=== PATIENT | male | born 1960 | race African-American/Black ===

== ENCOUNTER 2017-04-02 10:36 | Observation (INO) | payer OTHER ==
[~2017-04-02] VITALS: Ht 175.3 cm; Wt 145.0 kg
[2017-04-02] VITALS (7 sets, daily range): BP systolic 139–185; BP diastolic 79–120; PULSE 77–95; RESP 18–20; TEMP 98–98.7; O2SAT 92–97
[~2017-04-02 10:36] MED LIST: AMIO200T PO; APIX5TAB PO; ASPI81TA11 PO; BUME1TAB PO; CALC.25 PO; CARD2TAB PO; DILT60TA33 PO; ENAL20TA PO; HYDR-3516 PO; IPRA0.02 NEB; LIPI80TA PO; METO-309 PO; OXYGENTANK NAS.CANULA; TOPA100T11 PO
[2017-04-02] MEDS ORDERED: SODIUM CHLORIDE 0.9% FLUSH 10 ML FLUSH IVF PRN (11:15)
--- NOTE | 2017-04-02 11:15 | PD ---
HPI Chief Complaint: Cardiac Complaint Time Seen by Provider: 11:02 Travel History International Travel<30 days: No Contact w/Intl Traveler<30days: No Traveled to known affect area: No History of Present Illness HPI 57yo M with PMH of DM, afib, CHF, CKD, HTN, CAD presents to the ED with c/o chest pain since 8am today. As per triage note, pt was in afib RVR 170s and given cardizem by EVAC. Pt states chest pain has resolved. It was midsternal, pressure like and not associated with sob, nausea, or diaphoresis. Did not feel palpitations. Denies any fever, cough, vomiting, abdominal pain, focal weakness or numbness. PFSH Past Medical History Hx Anticoagulant Therapy: Yes (ELOQUIS) Atrial Fibrillation: Yes Depression: Yes Cancer: No Cardiac Catheterization: Yes Cardiovascular Problems: Yes (CA, AFIB) High Cholesterol: Yes COPD: No Diabetes: Yes Diminished Hearing: No Genitourinary: No Hypertension: Yes Immune Disorder: No Neurologic: Yes (EPILEPSY) Psychiatric: Yes Reproductive: No Respiratory: Yes Myocardial Infarction: Yes Seizures: Yes (epilepsy) Tetanus Vaccination: Unknown Influenza Vaccination: Yes Social History Alcohol Use: No Tobacco Use: No Substance Use: No Allergies-Medications (Allergen,Severity, Reaction): Coded Allergies: [place] Oil (Verified Allergy, Unknown, THROW UP, 10/07/16) Reported Meds & Prescriptions Reported Meds & Active Scripts Active Ipratropium Neb (Ipratropium [place]) 0.5 Mg/2.5 Ml Amp 0.5 Mg NEB Q6HR NEB PRN Bumetanide 1 Mg Tab 1 Mg PO DAILY Aspirin EC (Aspirin) 81 Mg Tabdr 81 Mg PO DAILY Eliquis (Apixaban) 5 Mg Tab 5 Mg PO BID Amiodarone (Amiodarone HCl) 200 Mg Tab 200 Mg PO DAILY Reported Metoprolol Tartrate 100 Mg Tab 100 Mg PO BID Diltiazem ER 24 HR 240 Mg Caper 240 Mg PO BID Topamax (Topiramate) 100 Mg Tab 200 Mg PO DAILY @ 1200 Enalapril (Enalapril Maleate) 20 Mg Tab 20 Mg PO DAILY Review of Systems Except as stated in HPI: all other systems reviewed are Neg Physical Exam Narrative GENERAL: 57yo M not in distress. SKIN: Focused skin assessment warm/dry. HEAD: Atraumatic. Normocephalic. EYES: Pupils equal and round. No scleral icterus. No injection or drainage. ENT: No nasal bleeding or discharge. Mucous membranes pink and moist. NECK: Trachea midline. No JVD. CARDIOVASCULAR: Irregular rate and rhythm in the 80s. No murmur appreciated. RESPIRATORY: No accessory muscle use. Clear to auscultation. Breath sounds equal bilaterally. GASTROINTESTINAL: Abdomen soft, non-tender, nondistended. MUSCULOSKELETAL: No obvious deformities. No clubbing. No cyanosis. +Bilateral lower ext edema. NEUROLOGICAL: Awake and alert. No obvious cranial nerve deficits. Motor grossly within normal limits. Normal speech. PSYCHIATRIC: Appropriate mood and affect; insight and judgment normal. Data Data Last Documented VS Vital Signs Date Time Temp Pulse Resp B/P Pulse Ox O2 Delivery O2 Flow Rate FiO2 04/02/17 12:00 90 18 155/102 96 Room Air 04/02/17 10:50 2 04/02/17 10:44 98.7 Orders Basic Metabolic Panel (Bmp) (04/02/17 11:07) Ckmb (Isoenzyme) Profile (04/02/17 11:07) Complete Blood Count With Diff (04/02/17 11:07) Magnesium (Mg) (04/02/17 11:07) Prothrombin Time / Inr (Pt) (04/02/17 11:07) Act Partial Throm Time (Ptt) (04/02/17 11:07) Troponin I (04/02/17 11:07) Chest, Single Ap (04/02/17 11:07) Ecg Monitoring (04/02/17 11:07) Bilateral Bp Monitoring (04/02/17 11:07) Iv Access Insert/Monitor (04/02/17 11:07) Oximetry (04/02/17 11:07) Oxygen Administration (04/02/17 11:07) Sodium Chloride 0.9% Flush (Ns Flush) (04/02/17 11:15) CKMB (04/02/17 10:49) CKMB% (04/02/17 10:49) B-Type Natriuretic Peptide (04/02/17 12:13) Diltiazem Cd (Cardizem Cd) (04/02/17 13:15) Admit Order (Ed Use Only) (04/02/17 13:14) Labs Laboratory Tests Test 04/02/17 10:49 White Blood Count 6.3 TH/MM3 Red Blood Count 4.52 MIL/MM3 Hemoglobin 13.3 GM/DL Hematocrit 41.3 % Mean Corpuscular Volume 91.2 FL Mean Corpuscular Hemoglobin 29.5 PG Mean Corpuscular Hemoglobin 32.3 % Concent Red Cell Distribution Width 14.3 % Platelet Count 106 TH/MM3 Mean Platelet Volume 11.6 FL Neutrophils (%) (Auto) 60.7 % Lymphocytes (%) (Auto) 25.6 % Monocytes (%) (Auto) 9.9 % Eosinophils (%) (Auto) 3.1 % Basophils (%) (Auto) 0.7 % Neutrophils # (Auto) 3.8 TH/MM3 Lymphocytes # (Auto) 1.6 TH/MM3 Monocytes # (Auto) 0.6 TH/MM3 Eosinophils # (Auto) 0.2 TH/MM3 Basophils # (Auto) 0.0 TH/MM3 CBC Comment AUTO DIFF Differential Comment AUTO DIFF CONFIRMED Platelet Estimate LOW Platelet Morphology Comment ENLARGED Prothrombin Time 11.6 SEC Prothromb Time International 1.0 RATIO Ratio Activated Partial 29.1 SEC Thromboplast Time Sodium Level 142 MEQ/L Potassium Level 4.9 MEQ/L Chloride Level 106 MEQ/L Carbon Dioxide Level 26.8 MEQ/L Anion Gap 9 MEQ/L Blood Urea Nitrogen 23 MG/DL Creatinine 1.73 MG/DL Estimat Glomerular Filtration 50 ML/MIN Rate Random Glucose 114 MG/DL Calcium Level 8.5 MG/DL Magnesium Level 2.0 MG/DL Total Creatine Kinase 260 U/L Creatine Kinase MB 1.7 NG/ML Troponin I LESS THAN 0.02 NG/ML MDM Medical Decision Making Medical Screen Exam Complete: Yes Emergency Medical Condition: Yes Interpretation(s) EKG: Afib at 83bpm. 1mm ST elevation V2, V3. No reciprocal changes. Differential Diagnosis ACS vs. afib RVR vs. pneumonia Narrative Course 57yo M with midsternal chest pain that was pressure like. Pt was found in afib RVR by EVAC and given 20mg IV cardizem. Chest pain may have been from the afib but pt has significant risk factors and has not had any recent stress test. Pt follows with Dr. Mccormack and was last here for afib RVR. Pt did not take his diltiazem 240mg ER this morning because of the chest pain and his heart rate is now fluctuating between 90s to 110s. Ordered his diltiazem 240mg PO today. Labs reviewed, no leukocytosis. Thrombocytopenia which he has had before. Troponin negative. BUN/creatinine elevated but improved from baseline. Pt took his aspirin this morning. CXR showed stable cardiomegaly. Pulmonary venous congestion. No significant changes. Pt reevaluated at bedside and denies any chest pain currently. Will admit to chest pain center for serial EKG and cardiac enzyme. Diagnosis Primary Impression: Chest pain Qualified Code: R07.9 - Chest pain, unspecified type Admitting Information Admitting Physician Requests: Katlyn Mcintosh DO April 02, 2017 11:15
--- NOTE | 2017-04-02 11:30 | RADRPT ---
EXAM DATE/TIME: 04/02/2017 11:12 [facility] COMPARISON: CHEST SINGLE AP, October 16, 2016, 19:19. INDICATIONS : Chest pain. MEDICAL HISTORY : Myocardial infarction. SURGICAL HISTORY : None. ENCOUNTER: Initial ACUITY: 1 day PAIN SCORE: 0/10 LOCATION: Bilateral chest FINDINGS: A single view of the chest demonstrates the lungs to be symmetrically aerated without evidence of mas s, infiltrate or effusion. There is some nonspecific pulmonary venous congestion. The heart size is moderately enlarged but stable compared to the prior study.. Osseous structures are intact. No signi ficant changes. CONCLUSION: 1. Stable cardiomegaly. 2. Pulmonary venous congestion. 3. Otherwise, no significant changes. Shamar Azul MD on April 02, 2017 at 11:27 Board Certified Radiologist. This report was verified electronically.
[2017-04-02 11:35] LABS: AUTOMATED NEUTROPHIL # 3.8 TH/MM3 (1.8-7.7); BASOPHIL % 0.7 % (0.0-2.0); EOSINOPHIL # 0.2 TH/MM3 (0-0.4); EOSINOPHIL % 3.1 % (0.0-4.0); HEMATOCRIT 41.3 % (39.0-51.0); LYMPH % 25.6 % (9.0-44.0); LYMPHOCYTE # 1.6 TH/MM3 (1.0-4.8); MEAN CELL VOLUME 91.2 FL (80.0-100.0); MEAN CORPUSCULAR HEMOGLOBIN 29.5 PG (27.0-34.0); MEAN CORPUSCULAR HGB CONC 32.3 % (32.0-36.0); MONO % 9.9 % (0.0-8.0); NEUT % 60.7 % (16.0-70.0); PLATELET COUNT 106 TH/MM3 (150-450); RED BLOOD COUNT 4.52 MIL/MM3 (4.50-5.90); RED CELL DISTRIBUTION WIDTH 14.3 % (11.6-17.2); WHITE BLOOD COUNT 6.3 TH/MM3 (4.0-11.0)
[2017-04-02 11:40] LABS: HEMO FLAGS AUTO DIFF
[2017-04-02 11:46] LABS: APTT (PATIENT) 29.1 SEC (24.3-30.1); PROTHROMBIN TIME - PATIENT 11.6 SEC (9.8-11.6)
[2017-04-02 11:57] LABS: ANION GAP 9 MEQ/L (5-15); BICARBONATE 26.8 MEQ/L (21.0-32.0); BLOOD UREA NITROGEN 23 MG/DL (7-18); CHLORIDE 106 MEQ/L (98-107); GLOMERULAR FILTRATION RATE 50 ML/MIN (>89); SODIUM (NA) 142 MEQ/L (136-145)
[2017-04-02 11:58] LABS: CREATINE KINASE 260 U/L (39-308); POTASSIUM 4.9 MEQ/L (3.5-5.1)
[2017-04-02 12:10] LABS: CKMB 1.7 NG/ML (0.5-3.6); PLATELET ESTIMATE SMEAR LOW (NORMAL); PLATELET MORPHOLOGY ENLARGED (NORMAL); SCAN/DIFF AUTO DIFF CONFIRMED
[2017-04-02] MEDS ORDERED: DILT-48 PO (12:15)
[2017-04-02] MEDS ORDERED: METO100T PO ×2 (12:15)
[2017-04-02] MEDS ORDERED: DILTIAZEM-CD 240 MG CAP ER PO ONE (13:15)
[2017-04-02] MEDS ORDERED: NITROGLYCERIN 0.4 MG SL 25 TABS/BTL SL PRN (13:30)
[2017-04-02] MEDS ORDERED: ACETAMINOPHEN 500 MG CPLT PO PRN (13:30)
[2017-04-02] MEDS ORDERED: ONDANSETRON HCL 4 MG/2 ML VIAL IV PRN (13:30)
[2017-04-02 14:38] LABS: CREATINE KINASE 197 U/L (39-308)
[2017-04-02 14:51] LABS: CKMB 2.1 NG/ML (0.5-3.6)
--- NOTE | 2017-04-02 15:16 | EKG ---
Date Performed: 04/02/2017 Time Performed: 10:45:44 PTAGE: 57 years EKG: ATRIAL FIBRILLATION INDETERMINATE AXIS MODERATE INTRAVENTRICULAR CONDUCTION DELAY ABNORMAL ECG Since PREVIOUS TRACING , no significant change noted PREVIOUS TRACIN10/09/2016 17.27 DOCTOR: Jamila Mccormack Interpretating Date/Time 04/02/2017 15:14:17
--- NOTE | 2017-04-02 16:38 | HHI.HP ---
HPI Primary Care Physician Roxi Gonzales MD Chief Complaint Chest pain History of Present Illness 57-year-old male with pertinent medical history of diabetes, hypertension, A. fib, and nonischemic cardiomyopathy (this differs from ER record of coronary artery disease) presents to the emergency room for further evaluation of chest pain. Onset this morning prior to taking his medications. Location substernal described as a pressure. No associated symptoms or radiation of pain. No known relieving or precipitating factors. Per ER record patient was in A. fib RVR with a rate and 170s EMS. Review of Systems General: No fatigue,weakness, fever, chills, or recent illness. Endorses compliance with meds and have been in his general state of health. HEENT: No [place], no vision changes CV: As stated above. No current chest pain or pressure. No feelings of palpitations or dizziness. RESP: No SOB, cough, wheeze, or recent URI. GI: No nausea, vomiting, bowel changes EXT: No lower leg edema, no paraesthesias MS: No discomfort or change in ROM NEURO: No change in memory, dizziness, difficulty with balance, LOC, motor/ sensory deficits PSYCH: No anxiety, depression SKIN: No rashes, no concerning lesions Past Family Social History Allergies: Coded Allergies: [place] Oil (Verified Allergy, Unknown, THROW UP, 10/07/16) Past Medical History Diabetes, A. fib, CHF, CKD, hypertension, non-ischemic cardiomyopathy Past Surgical History None Reported Medications Active Ipratropium Neb (Ipratropium [place]) 0.5 Mg/2.5 Ml Amp 0.5 Mg NEB Q6HR NEB PRN Bumetanide 1 Mg Tab 1 Mg PO DAILY Aspirin EC (Aspirin) 81 Mg Tabdr 81 Mg PO DAILY Eliquis (Apixaban) 5 Mg Tab 5 Mg PO BID Amiodarone (Amiodarone HCl) 200 Mg Tab 200 Mg PO DAILY Metoprolol Tartrate 100 Mg Tab 100 Mg PO BID Diltiazem ER 24 HR 240 Mg Caper 240 Mg PO BID Topamax (Topiramate) 100 Mg Tab 200 Mg PO DAILY @ 1200 Enalapril (Enalapril Maleate) 20 Mg Tab 20 Mg PO DAILY Active Ordered Medications Current Medications Medications (Trade) Dose Ordered Sig/Ashok Route Start Time Stop Time Status Last Admin (Tylenol) 500 mg Q4H PRN PO 04/02/17 13:30 (Zofran Inj) 4 mg Q6H PRN IV 04/02/17 13:30 (Nitrostat Sl) 0.4 mg Q5M PRN SL 04/02/17 13:30 (Aspirin) 325 mg DAILY PO 04/03/17 09:00 (Cordarone) 200 mg DAILY PO 04/02/17 16:00 (Eliquis) 5 mg BID PO 04/02/17 21:00 (Bumetanide) 1 mg DAILY PO 04/02/17 17:00 (Cardizem Cd) 240 mg BID PO 04/02/17 21:00 (Vasotec) 20 mg DAILY PO 04/02/17 17:00 (Lopressor) 100 mg BID PO 04/02/17 21:00 Family History Noncontributory for early as a cardiovascular disease. Social History Known hypertension and diabetes. No known hyperlipidemia. Lifelong nonsmoker. Denies any alcohol or illegal drug use. Past cardiac testing 10/16/16 cardiac catheterization (Dr. Wheat)-1. No sign of ordinary artery disease by catheterization. 2. Nonischemic cardiomyopathy EF 25% by echo. 3. New onset A. fib. 4. Hypertension cardiac disease. 5. Possible non-STEMI due to hypertension versus new onset A. fib. Patient's entry level sales representative is Dr. Jamila Mccormack. Physical Exam Vital Signs Vital Signs Date Time Temp Pulse Resp B/P Pulse Ox O2 Delivery O2 Flow Rate FiO2 04/02/17 15:56 98.0 92 20 185/120 95 04/02/17 15:00 95 18 159/107 97 Room Air 04/02/17 14:03 96 21 04/02/17 12:00 90 18 155/102 96 Room Air 04/02/17 12:00 98 Room Air 04/02/17 12:00 90 18 155/102 96 Room Air 04/02/17 10:50 90 18 95 Nasal Cannula 2 04/02/17 10:44 98.7 87 18 166/104 92 Physical Exam GENERAL: Alert WN, WD, NAD, pleasant, morbidly obese, male HEAD: NC, AT ENT: Mucous membranes pink and moist NECK: Supple, no masses, trachea midline CV: irregular, regular rate, without murmur, rub, gallop, no JVD, S1-S2 no S3- S4. RESP: Clear lungs throughout bilateral, no crackles, wheeze, rhonchi, symmetrical chest rise, nonlabored, able to speak in full sentences ABD: Soft, NT, ND, no masses, positive bowel tones, obese EXT: Pulses +14, trace dependent edema MS: Normal tone 4 extremities, nontender, no obvious deformities, full range of motion NEURO: CN II through CN XII grossly intact, motor strength 5/5, gait WNL PSYCH: A+O 3, pleasant affect, appropriate speech, appropriate mood and affect , insight and judgment SKIN: Normal turgor, normal texture, no lesions, no rashes Laboratory Laboratory Tests Test 04/02/17 04/02/17 04/02/17 10:49 13:25 13:45 White Blood Count 6.3 Red Blood Count 4.52 Hemoglobin 13.3 Hematocrit 41.3 Mean Corpuscular Volume 91.2 Mean Corpuscular Hemoglobin 29.5 Mean Corpuscular Hemoglobin 32.3 Concent Red Cell Distribution Width 14.3 Platelet Count 106 Mean Platelet Volume 11.6 Neutrophils (%) (Auto) 60.7 Lymphocytes (%) (Auto) 25.6 Monocytes (%) (Auto) 9.9 Eosinophils (%) (Auto) 3.1 Basophils (%) (Auto) 0.7 Neutrophils # (Auto) 3.8 Lymphocytes # (Auto) 1.6 Monocytes # (Auto) 0.6 Eosinophils # (Auto) 0.2 Basophils # (Auto) 0.0 CBC Comment AUTO DIFF Differential Comment AUTO DIFF CONFIRMED Platelet Estimate LOW Platelet Morphology Comment ENLARGED Prothrombin Time 11.6 Prothromb Time International 1.0 Ratio Activated Partial 29.1 Thromboplast Time Sodium Level 142 Potassium Level 4.9 Chloride Level 106 Carbon Dioxide Level 26.8 Anion Gap 9 Blood Urea Nitrogen 23 Creatinine 1.73 Estimat Glomerular Filtration 50 Rate Random Glucose 114 Calcium Level 8.5 Magnesium Level 2.0 Total Creatine Kinase 260 197 Creatine Kinase MB 1.7 2.1 Troponin I LESS THAN 0.02 0.08 B-Type Natriuretic Peptide 286 Result Diagram: 04/02/17 1049 04/02/17 1049 Imaging Last Impressions Chest X-Ray 04/02/17 1107 Signed Impressions: Service Date/Time: Sunday, April 02, 2017 11:12 - CONCLUSION: 1. Stable cardiomegaly. 2. Pulmonary venous congestion. 3. Otherwise, no significant changes. Shamar Azul MD Course EKGs A. fib, no ST or T-segment changes Assessment and Plan Assessment and Plan Chest painadmitted to chest pain center. Seen and evaluated by Dr. Jamila Mccormack. 2 sets of EKGs and cardiac enzymes completed second troponin is elevated at 0.08 and is thought to be related to A. fib RVR. No further cardiac enzymes or EKG will be required at this time. Plan to monitor blood pressure and cardiac rhythm overnight and discharge in a.m. with no further testing. Dr. Mccormack spoke in length with patient on importance of follow- up and possibility defibrillator placement. Patient is agreeable to plan of care and will follow-up accordingly. Hypertensioncontinue enalapril and amlodipine Nonischemic Cardiomyopathycontinue Bumex, Dr. Mccormack spoke in length importance of keeping follow-up appointments and possible defibrillator placement as an outpatient basis. A. fibcontinue diltiazem, metoprolol, Chely Hartman April 02, 2017 16:38
[2017-04-02] MEDS: BUMETANIDE 1 MG TAB PO SCH (16:49)
[2017-04-02] MEDS: AMIODARONE 200 MG TAB PO SCH (16:49)
[2017-04-02] MEDS: ENALAPRIL MALEATE 10 MG TAB PO SCH (16:50)
[2017-04-02] MEDS ORDERED: cloNIDine HCL 0.1 MG TAB PO PRN (18:45)
[2017-04-02] MEDS: APIXABAN 5 MG TABLET PO SCH (20:28)
[2017-04-02] MEDS: METOPROLOL TARTRATE 100 MG TAB PO SCH (20:28)
[2017-04-02] MEDS: DILTIAZEM-CD 240 MG CAP ER PO SCH (20:28)
[2017-04-02] MEDS: SODIUM CHLORIDE 0.9% FLUSH 10 ML FLUSH IV FLUSH SCH (20:28)
[2017-04-03 00:11] VITALS: O2SAT 97
[2017-04-03 00:24] VITALS: PULSE 45
[2017-04-03 00:45] VITALS: BP 116/64; PULSE 88; RESP 18; TEMP 97.8; O2SAT 94; O2SAT 96
[2017-04-03 07:11] VITALS: BP 121/78; PULSE 54; RESP 19; TEMP 98.3; O2SAT 98
--- NOTE | 2017-04-03 07:37 | HHI.DCPOC ---
Discharge Care Plan Diagnosis: (1) Chest pain (2) Atrial fibrillation with RVR Goals to Promote Your Health * To prevent worsening of your condition and complications * To maintain your health at the optimal level Directions to Meet Your Goals Take your medications as prescribed Follow your dietary instruction Follow activity as directed Keep your appointments as scheduled Take your immunizations and boosters as scheduled If your symptoms worsen call your PCP, if no PCP go to Urgent Care Center or Emergency Room Smoking is Dangerous to Your Health. Avoid second hand smoke Call the 24-hour hour crisis hotline for domestic abuse at [facility] Kim April 03, 2017 07:37
[2017-04-03 07:42] VITALS: O2SAT 96
[2017-04-03] MEDS: BUMETANIDE 1 MG TAB PO SCH (08:49)
[2017-04-03] MEDS: ENALAPRIL MALEATE 10 MG TAB PO SCH (08:49)
[2017-04-03] MEDS: DILTIAZEM-CD 240 MG CAP ER PO SCH (08:49)
[2017-04-03] MEDS: AMIODARONE 200 MG TAB PO SCH (08:49)
[2017-04-03] MEDS: APIXABAN 5 MG TABLET PO SCH (08:49)
[2017-04-03] MEDS: METOPROLOL TARTRATE 100 MG TAB PO SCH (08:49)
[2017-04-03] MEDS ORDERED: ASPIRIN 325 MG TAB PO SCH (09:00)
[2017-04-03] MEDS: SODIUM CHLORIDE 0.9% FLUSH 10 ML FLUSH IV FLUSH SCH (09:00)
--- NOTE | 2017-04-03 13:50 | EKG ---
Date Performed: 04/02/2017 Time Performed: 17:03:37 PTAGE: 57 years EKG: ATRIAL FIBRILLATION INDETERMINATE AXIS ABNORMAL RHYTHM ECG PREVIOUS TRACING : 04/02/2017 13.39 Since previous tracing, no significant change noted DOCTOR: Sterling Vega Interpretating Date/Time 04/03/2017 13:48:42
--- NOTE | 2017-04-03 13:51 | EKG ---
Date Performed: 04/02/2017 Time Performed: 13:39:55 PTAGE: 57 years EKG: ATRIAL FIBRILLATION ABNORMAL ECG PREVIOUS TRACING : 04/02/2017 10.45 Since previous tracing, no significant change noted DOCTOR: Sterling Vega Interpretating Date/Time 04/03/2017 13:50:52
== END 2017-04-03 10:27 | disposition home or self-care (01) ==
LOC: NEPE 10:36 → NEDA 13:16 → NEPGCP 15:30
PROVIDERS: ADMIT Internal Medicine Interventional Cardiology; ATTEND Internal Medicine Interventional Cardiology
DX: R07.89 Other chest pain (principal); I48.91 Unspecified atrial fibrillation; I42.8 Other cardiomyopathies; E11.22 Type 2 diabetes mellitus with diabetic chronic kidney disease; I13.0 Hypertensive heart and chronic kidney disease with heart failure and stage 1 through stage 4 chronic kidney disease, or unspecified chronic kidney disease; N18.9 Chronic kidney disease, unspecified; I50.9 Heart failure, unspecified; I25.10 Atherosclerotic heart disease of native coronary artery without angina pectoris; E78.00 Pure hypercholesterolemia, unspecified; I25.2 Old myocardial infarction; F32.9 Major depressive disorder, single episode, unspecified; Z79.01 Long term (current) use of anticoagulants; Z91.048 Other nonmedicinal substance allergy status
CPT/HCPCS: 71010; 80048; 82550; 82552; 83735; 83880; 84484; 85025; 85610; 85730; 93005; 99285; G0378

== ENCOUNTER 2017-06-14 02:59 | Inpatient (IN) | payer OTHER, MEDICARE ==
[~2017-06-14] VITALS: Ht 175.3 cm; Wt 134.8 kg
[2017-06-14] VITALS (14 sets, daily range): BP systolic 84–113; BP diastolic 41–77; PULSE 40–63; RESP 12–22; TEMP 97–98.5; O2SAT 93–99
[~2017-06-14 02:59] MED LIST changes: -CALC.25 PO; -CARD2TAB PO; +DILT-48 PO; -DILT60TA33 PO; -HYDR-3516 PO; -LIPI80TA PO; -METO-309 PO; +METO100T PO; -OXYGENTANK NAS.CANULA
[2017-06-14] MEDS ORDERED: DOXA1TAB35 PO (03:11)
[2017-06-14] MEDS ORDERED: TOPI200T7 PO ×2 (03:11)
[2017-06-14] MEDS ORDERED: SODIUM CHLOR 0.9% 1000 ML INJ 1,000 ML IV SCH ×2 (03:11→04:30)
[2017-06-14] MEDS ORDERED: SODIUM CHLORIDE 0.9% FLUSH 10 ML FLUSH IV FLUSH PRN ×2 (03:15→04:30)
[2017-06-14] MEDS ORDERED: ONDANSETRON HCL 4 MG/2 ML VIAL IV PUSH ONE (03:15)
--- NOTE | 2017-06-14 03:21 | PD ---
HPI Chief Complaint: General Weakness Time Seen by Provider: 03:07 Travel History International Travel<30 days: No Contact w/Intl Traveler<30days: No Traveled to known affect area: No History of Present Illness HPI 57-year-old male with history of morbid obesity, hypertension, A. fib, CAD, CHF , seen by his dentist yesterday and started on an antibiotic for periodontal disease which the patient has not yet filled, here for evaluation of generalized weakness, nausea, and vomiting. The patient reports feeling generalized weakness for the last 4 days. States that he has had clear emesis since yesterday evening. No diarrhea. He denies chest pain or dyspnea. No abdominal pain. No fever. PFSH Past Medical History Hx Anticoagulant Therapy: Yes (ELOQUIS) Atrial Fibrillation: Yes Blood Disorders: No Anxiety: No Depression: No Heart Rhythm Problems: Yes Cancer: No Cardiac Catheterization: Yes (2015) Cardiovascular Problems: Yes High Cholesterol: Yes Chemotherapy: No Chest Pain: Yes Congestive Heart Failure: Yes COPD: No Diabetes: No Diminished Hearing: No Endocrine: No Genitourinary: No Hypertension: Yes Immune Disorder: No Musculoskeletal: No Neurologic: Yes (EPILEPSY) Psychiatric: No Reproductive: No Respiratory: Yes Myocardial Infarction: Yes Radiation Therapy: No Seizures: Yes (epilepsy) Tetanus Vaccination: < 5 Years Influenza Vaccination: Yes Family History Family Myocardial Infarction: Yes (2015) Social History Alcohol Use: No Tobacco Use: No Substance Use: No Allergies-Medications (Allergen,Severity, Reaction): Coded Allergies: [place] Oil (Verified Allergy, Unknown, THROW UP, 06/14/17) Reported Meds & Prescriptions Reported Meds & Active Scripts Active Ipratropium Neb (Ipratropium [place]) 0.5 Mg/2.5 Ml Amp 0.5 Mg NEB Q6HR NEB PRN Bumetanide 1 Mg Tab 1 Mg PO DAILY Aspirin EC (Aspirin) 81 Mg Tabdr 81 Mg PO DAILY Eliquis (Apixaban) 5 Mg Tab 5 Mg PO BID Amiodarone (Amiodarone HCl) 200 Mg Tab 200 Mg PO DAILY Reported Topiramate 200 Mg Tab 200 Mg PO DAILY Topiramate 200 Mg Tab 200 Mg PO BID Doxazosin (Doxazosin Mesylate) 2 Mg Tab 2 Mg PO DAILY Metoprolol Tartrate 100 Mg Tab 50 Mg PO BID Diltiazem ER 24 HR 240 Mg Caper 240 Mg PO BID Topamax (Topiramate) 100 Mg Tab 200 Mg PO DAILY @ 1200 Enalapril (Enalapril Maleate) 20 Mg Tab 20 Mg PO DAILY Review of Systems Except as stated in HPI: all other systems reviewed are Neg Physical Exam Narrative GENERAL: Well-developed, well-nourished, morbidly obese, awake, alert, no apparent distress. SKIN: Focused skin assessment warm/dry. No rash. No pallor. HEAD: Atraumatic. Normocephalic. EYES: Pupils equal and round. No scleral icterus. No injection or drainage. ENT: Mucous membranes pink and dry. Poor dentition. No fluctuance. No drooling or stridor. Normal pharynx. Uvula midline. NECK: Trachea midline. No JVD. CARDIOVASCULAR: Regular rate and rhythm. RESPIRATORY: No accessory muscle use. Clear to auscultation. Breath sounds equal bilaterally. GASTROINTESTINAL: Abdomen soft, non-tender, nondistended. MUSCULOSKELETAL: No obvious deformities. No clubbing. No cyanosis. No edema. NEUROLOGICAL: Awake and alert. No obvious cranial nerve deficits. Motor grossly within normal limits. Normal speech. PSYCHIATRIC: Appropriate mood and affect; insight and judgment normal. Data Data Last Documented VS Vital Signs Date Time Temp Pulse Resp B/P Pulse Ox O2 Delivery O2 Flow Rate FiO2 06/14/17 03:02 98.5 53 18 97/58 98 Orders Complete Blood Count With Diff (06/14/17 03:11) Comprehensive Metabolic Panel (06/14/17 03:11) Lipase (06/14/17 03:11) Iv Access Insert/Monitor (06/14/17 03:11) Ecg Monitoring (06/14/17 03:11) Oximetry (06/14/17 03:11) Sodium Chlor 0.9% 1000 Ml Inj (Ns 1000 M (06/14/17 03:11) Sodium Chloride 0.9% Flush (Ns Flush) (06/14/17 03:15) Electrocardiogram (06/14/17 03:11) Ondansetron Inj (Zofran Inj) (06/14/17 03:15) Labs Laboratory Tests Test 06/14/17 03:10 White Blood Count 7.8 TH/MM3 Red Blood Count 4.41 MIL/MM3 Hemoglobin 13.2 GM/DL Hematocrit 39.7 % Mean Corpuscular Volume 90.1 FL Mean Corpuscular Hemoglobin 29.9 PG Mean Corpuscular Hemoglobin 33.2 % Concent Red Cell Distribution Width 14.5 % Platelet Count 71 TH/MM3 Mean Platelet Volume 12.9 FL Neutrophils (%) (Auto) 62.9 % Lymphocytes (%) (Auto) 23.9 % Monocytes (%) (Auto) 10.6 % Eosinophils (%) (Auto) 1.7 % Basophils (%) (Auto) 0.9 % Neutrophils # (Auto) 4.9 TH/MM3 Lymphocytes # (Auto) 1.9 TH/MM3 Monocytes # (Auto) 0.8 TH/MM3 Eosinophils # (Auto) 0.1 TH/MM3 Basophils # (Auto) 0.1 TH/MM3 CBC Comment AUTO DIFF Sodium Level 142 MEQ/L Potassium Level 4.1 MEQ/L Chloride Level 108 MEQ/L Carbon Dioxide Level 25.4 MEQ/L Anion Gap 9 MEQ/L Blood Urea Nitrogen 31 MG/DL Creatinine 2.27 MG/DL Estimat Glomerular Filtration 36 ML/MIN Rate Random Glucose 124 MG/DL Calcium Level 8.4 MG/DL Total Bilirubin 0.9 MG/DL Aspartate Amino Transf 23 U/L (AST/SGOT) Alanine Aminotransferase 38 U/L (ALT/SGPT) Alkaline Phosphatase 81 U/L Total Protein 6.8 GM/DL Albumin 3.3 GM/DL Lipase 226 U/L MDM Medical Decision Making Medical Screen Exam Complete: Yes Emergency Medical Condition: Yes Interpretation(s) EKG: A. fib, rate 53, normal axis, normal intervals, no acute ischemic abnormality. Differential Diagnosis Metabolic abnormality, anemia, dehydration, nausea and vomiting, sepsis Narrative Course Vital signs show heart rate 53, blood pressure 97/58, pulse ox 98% on room air, oral temp of 98.5F. CBC is essentially unremarkable. CMP is remarkable for BUN 31, creatinine 2.27, GFR 36 which is around his baseline. Lipase is 226. Patient was given gentle hydration. He remains bradycardic with a heart rate in the 40s and hypotensive with blood pressure ranging between 80 and 90 systolic. Chart review shows that the patient had an echocardiogram back in 2016 and shows an EF of 25%. The patient's carton maker is Dr. Mccormack. Given symptomatic bradycardia and persistent hypotension, patient will be admitted for overnight observation. Case discussed with hospitalist Dr. Peñaloza who will admit the patient to her service for observation. Diagnosis Primary Impression: Symptomatic bradycardia Additional Impression: Hypotension Qualified Code: I95.9 - Hypotension, unspecified hypotension type Admitting Information Admitting Physician Requests: Observation Bib Cazares MD Jun 14, 2017 03:21
[2017-06-14 03:26] LABS: AUTOMATED NEUTROPHIL # 4.9 TH/MM3 (1.8-7.7); BASOPHIL # 0.1 TH/MM3 (0-0.2); BASOPHIL % 0.9 % (0.0-2.0); EOSINOPHIL # 0.1 TH/MM3 (0-0.4); EOSINOPHIL % 1.7 % (0.0-4.0); HEMATOCRIT 39.7 % (39.0-51.0); LYMPH % 23.9 % (9.0-44.0); LYMPHOCYTE # 1.9 TH/MM3 (1.0-4.8); MEAN CELL VOLUME 90.1 FL (80.0-100.0); MEAN CORPUSCULAR HEMOGLOBIN 29.9 PG (27.0-34.0); MEAN CORPUSCULAR HGB CONC 33.2 % (32.0-36.0); MONO % 10.6 % (0.0-8.0); NEUT % 62.9 % (16.0-70.0); PLATELET COUNT 71 TH/MM3 (150-450); RED BLOOD COUNT 4.41 MIL/MM3 (4.50-5.90); RED CELL DISTRIBUTION WIDTH 14.5 % (11.6-17.2); WHITE BLOOD COUNT 7.8 TH/MM3 (4.0-11.0)
[2017-06-14 03:28] LABS: HEMO FLAGS AUTO DIFF
[2017-06-14 03:48] LABS: ANION GAP 9 MEQ/L (5-15); AST (GOT) 23 U/L (15-37); BICARBONATE 25.4 MEQ/L (21.0-32.0); BLOOD UREA NITROGEN 31 MG/DL (7-18); CHLORIDE 108 MEQ/L (98-107); GLOMERULAR FILTRATION RATE 36 ML/MIN (>89); POTASSIUM 4.1 MEQ/L (3.5-5.1); SODIUM (NA) 142 MEQ/L (136-145)
[2017-06-14 03:57] LABS: ALKALINE PHOSPHATASE 81 U/L (45-117); ALT (GPT) 38 U/L (12-78); TOTAL BILIRUBIN ADULT 0.9 MG/DL (0.2-1.0)
[2017-06-14] MEDS ORDERED: NALOXONE HCL 0.4 MG/ML AMP IV PRN (04:30)
[2017-06-14 04:40] LABS: SCAN/DIFF AUTO DIFF CONFIRMED
--- NOTE | 2017-06-14 05:13 | HHI.HP ---
[facility] Service [facility] Primary Care Physician Roxi Gonzales MD Admission Diagnosis symptomatic bradycardia, hypotension Diagnoses: (1) Symptomatic bradycardia (2) Hypotension Chief Complaint: Weakness, nausea and vomiting Travel History International Travel<30 Days: No Contact w/Intl Traveler <30 Da: No Traveled to Known Affected Are: No History of Present Illness Written by Analy Maier, acting as scribe for Dr. Peñaloza on 06/14/17 at 04:57. The patient had dental pain on Saturday and took antibiotics, vomited yesterday x 1. He reports that he also felt weak. Denies black or red colored vomit, denies diarrhea, denies dysphagia, denies jaw pain, falls, dizziness, syncope. Denies fever, hematuria, chest pain. He reports some dyspnea with exertion - "have to stop and catch my breath". He states that he thinks his social group worker told him he needs a pacemaker. . Review of Systems Except as stated in HPI: all other systems reviewed are Neg Past Family Social History Past Medical History CHF Atrial fibrillation Hypertension CHINO - never got his CPAP machine but says he was supposed to a year ago Seizure history - last seizure many years ago Denies AICD or PM, hypertension, DM, CAD, COPD/emphysema/asthma, liver problems , kidney problems, PE, CVA, thyroid problems, cancers, prostate problems . Past Surgical History Cardiac catheter 2015 . Reported Medications Reported Meds & Active Scripts Active Ipratropium Neb (Ipratropium [place]) 0.5 Mg/2.5 Ml Amp 0.5 Mg NEB Q6HR NEB PRN Bumetanide 1 Mg Tab 1 Mg PO DAILY Aspirin EC (Aspirin) 81 Mg Tabdr 81 Mg PO DAILY Eliquis (Apixaban) 5 Mg Tab 5 Mg PO BID Amiodarone (Amiodarone HCl) 200 Mg Tab 200 Mg PO DAILY Reported Topiramate 200 Mg Tab 200 Mg PO DAILY Topiramate 200 Mg Tab 200 Mg PO BID Doxazosin (Doxazosin Mesylate) 2 Mg Tab 2 Mg PO DAILY Metoprolol Tartrate 100 Mg Tab 50 Mg PO BID Diltiazem ER 24 HR 240 Mg Caper 240 Mg PO BID Topamax (Topiramate) 100 Mg Tab 200 Mg PO DAILY @ 1200 Enalapril (Enalapril Maleate) 20 Mg Tab 20 Mg PO DAILY . Allergies: Coded Allergies: [place] Oil (Verified Allergy, Unknown, THROW UP, 06/14/17) Active Ordered Medications Current Medications Sodium Chloride (NS 1000 ml Inj) 1,000 ml @ 125 mls/hr Q8H IV Last administered on 06/14/17 03:36; Start 06/14/17 at 03:11; Stop 06/14/17 at 04:23 ; Status DC Sodium Chloride (NS Flush) 2 ml UNSCH PRN IV FLUSH FLUSH AFTER USING IV ACCESS Last administered on 06/14/17 03:36; Start 06/14/17 at 03:15; Stop 06/14/17 at 04:28; Status DC Ondansetron HCl (Zofran Inj) 4 mg ONCE ONCE IV PUSH Last administered on 03:36; Start 06/14/17 at 03:15; Stop 06/14/17 at 03:16; Status DC Sodium Chloride (NS Flush) 2 ml UNSCH PRN IV FLUSH FLUSH AFTER USING IV ACCESS ; Start 06/14/17 at 04:30 Sodium Chloride (NS Flush) 2 ml BID IV FLUSH ; Start 06/14/17 at 09:00 Naloxone HCl 0.4 mg 0.4 mg UNSCH PRN IV SEE LABEL COMMENTS; Start 06/14/17 at 04:30 Sodium Chloride (NS 1000 ml Inj) 1,000 ml @ 42 mls/hr [id number] IV ; Start at 04:30; Stop 06/14/17 at 16:00 . Family History Brother with diabetes Father in his sleep, thinks it may be cardiac related . Social History Tobacco: denies Alcohol: denies Illicit Drugs: denies . Physical Exam Vital Signs Vital Signs Date Time Temp Pulse Resp B/P Pulse Ox O2 Delivery O2 Flow Rate FiO2 06/14/17 03:02 98.5 53 18 97/58 98 Physical Exam GENERAL: This is a morbidly obese male patient, in no apparent distress. SKIN: No rashes. Cool and dry. Large area darkly discolored left phillips. HEAD: Atraumatic. Normocephalic. EYES: No scleral icterus. No injection or drainage. ENT: Nose without bleeding, purulent drainage. NECK: Trachea midline. No JVD or lymphadenopathy. CARDIOVASCULAR: Regular rate and rhythm without murmurs, gallops, or rubs. Left lower extremity +2 edema, RLE +1. RESPIRATORY: Clear to auscultation. Breath sounds equal bilaterally. No wheezes , rales, or rhonchi. GASTROINTESTINAL: Abdomen soft, non-tender, nondistended. No guarding. MUSCULOSKELETAL: Extremities without clubbing, cyanosis, or edema. No calf tenderness. NEUROLOGICAL: Awake and alert. Motor and sensory grossly within normal limits. Normal speech. . Laboratory Laboratory Tests Test 06/14/17 03:10 White Blood Count 7.8 Red Blood Count 4.41 Hemoglobin 13.2 Hematocrit 39.7 Mean Corpuscular Volume 90.1 Mean Corpuscular Hemoglobin 29.9 Mean Corpuscular Hemoglobin 33.2 Concent Red Cell Distribution Width 14.5 Platelet Count 71 Mean Platelet Volume 12.9 Neutrophils (%) (Auto) 62.9 Lymphocytes (%) (Auto) 23.9 Monocytes (%) (Auto) 10.6 Eosinophils (%) (Auto) 1.7 Basophils (%) (Auto) 0.9 Neutrophils # (Auto) 4.9 Lymphocytes # (Auto) 1.9 Monocytes # (Auto) 0.8 Eosinophils # (Auto) 0.1 Basophils # (Auto) 0.1 CBC Comment AUTO DIFF Differential Comment AUTO DIFF CONFIRMED Sodium Level 142 Potassium Level 4.1 Chloride Level 108 Carbon Dioxide Level 25.4 Anion Gap 9 Blood Urea Nitrogen 31 Creatinine 2.27 Estimat Glomerular Filtration 36 Rate Random Glucose 124 Calcium Level 8.4 Total Bilirubin 0.9 Aspartate Amino Transf 23 (AST/SGOT) Alanine Aminotransferase 38 (ALT/SGPT) Alkaline Phosphatase 81 Total Protein 6.8 Albumin 3.3 Lipase 226 Result Diagram: 06/14/1730906/14/17309 Assessment and Plan Problem List: (1) Hypotension ICD Code: I95.9 Status: Acute (2) Symptomatic bradycardia ICD Code: R00.1 Status: Acute Assessment and Plan Hypotension - suspect secondary to cardiomyopathy and positional/BP cuff - stop IV fluids Symptomatic Bradycardia - Dr. Mccormack is social group worker - will consult - suspect he may need an AICD/pacemaker Severe CHINO - needs home CPAP - CPAP trial here - patient reports he had outpatient sleep study with Dr. Leigh last year and was supposed to get CPAP but never did - consult case management for assistance - consider consulting Dr. Leigh Left lower extremity edema - left lower extremity doppler u/s to r/o DVT Chronic kidney disease, Stage IV - BUN 31, creatinine 2.27, estimated GFR 36 on admission - stable compared to prior labs - Monitor BMP - Follow trends in renal indices - Avoid nephrotoxins DVT prophylaxis - continue Eliquis awaiting confirmation of Topamax dose to restart . This note was transcribed by harriett [Analy Maier]. I, Dr. Haile Peñaloza personally performed the history, physical exam, and medical decision making; and confirmed the accuracy of the information in the transcribed note. Authenticated by Dr. Haile Peñaloza on 06/14/17 at 04:57. Discussed Condition With ER physician and patient . Physician Certification 2 Midnight Certification Type: Admission for Inpatient Services Order for Inpatient Services The services are ordered in accordance with Medicare regulations or non- Medicare payer requirements, as applicable. In the case of services not specified as inpatient-only, they are appropriately provided as inpatient services in accordance with the 2-midnight benchmark. Estimated LOS (days): 3 days is the estimated time the patient will need to remain in the hospital, assuming treatment plan goals are met and no additional complications. Post-Hospital Plan: Not yet determined Problem Qualifiers (1) Hypotension: Qualified Code: I95.9 - Hypotension, unspecified hypotension type Analy Maier Jun 14, 2017 05:12 Haile Peñaloza MD Jun 14, 2017 07:25
[2017-06-14] MEDS ORDERED: ASPIRIN EC 81 MG TABEC PO SCH (09:00)
[2017-06-14] MEDS: SODIUM CHLORIDE 0.9% FLUSH 10 ML FLUSH IV FLUSH SCH ×2 (09:00→21:43)
--- NOTE | 2017-06-14 09:02 | RADRPT ---
EXAM DATE/TIME: 06/14/2017 08:15 [place] COMPARISON: No previous studies available for comparison. INDICATIONS : Left leg swelling. MEDICAL HISTORY : A-fib. Hypercholesterolemia. Hypertension. Congestive heart failure. Epilepsy. SURGICAL HISTORY : None. ENCOUNTER: Initial ACUITY: 1 day PAIN SCORE: 2/10 LOCATION: Left leg. TECHNIQUE: Venous ultrasound of the leg was performed from the inguinal ligament to the proximal calf. Real-andre e, color Doppler and spectral tracing, compression and augmentation techniques were used. FINDINGS: There is normal compressibility of the deep venous system from the inguinal region to the proximal ca lf. No echogenic clot is seen in the lumen of the common femoral, femoral, popliteal, and posterior tibial veins. There is a normal response of the venous system to proximal and distal augmentation an d respiration. CONCLUSION: Normal examination. Kushal Camacho MD on June 14, 2017 at 9:00 Board Certified Radiologist. This report was verified electronically.
[2017-06-14] MEDS: BUMETANIDE 1 MG TAB PO SCH (10:13)
[2017-06-14] MEDS: APIXABAN 5 MG TABLET PO SCH ×2 (10:13→21:43)
[2017-06-14] MEDS: AMIODARONE 200 MG TAB PO SCH (10:13)
--- NOTE | 2017-06-14 10:55 | HHI.PR ---
Subjective Remarks Follow up bradycardia. Patient states that he feels much better. Denies chest pain. Dyspnea has improved. Objective Vitals Vital Signs Date Time Temp Pulse Resp B/P Pulse Ox O2 Delivery O2 Flow Rate FiO2 06/14/17 10:17 95 Nasal Cannula 3.00 06/14/17 08:30 56 06/14/17 08:30 97.0 42 16 97/60 96 06/14/17 06:40 97.6 40 12 108/57 97 06/14/17 06:40 93 Nasal Cannula 2.00 06/14/17 06:40 97 35 06/14/17 06:00 48 16 100/57 96 CPAP 06/14/17 05:44 99 30 06/14/17 04:30 40 16 84/56 96 Nasal Cannula 2 06/14/17 04:00 48 16 96/52 96 Nasal Cannula 2 06/14/17 03:30 46 16 96/58 96 Nasal Cannula 2 06/14/17 03:02 98.5 53 18 97/58 98 Result Diagram: 06/14/17 0310 06/14/17 0310 Imaging Last Impressions Lower Extremity Ultrasound 06/14/17 0000 Signed Impressions: Service Date/Time: Wednesday, June 14, 2017 08:15 - CONCLUSION: Normal examination. Kushal Camacho MD Objective Remarks General: Obese male in no acute distress. Heart: Irregular rhythm. Lungs: Clear to auscultation bilaterally. No wheezes, rales, or rhonchi. Breathing is nonlabored. Abdomen: Soft, nontender, nondistended. Extremities: 2+ bilateral lower extremity edema. Psych: Alert and oriented. Procedures None Urinary Catheter: No Vascular Central Line Catheter: No A/P Problem List: (1) Hypotension ICD Code: I95.9 Status: Acute (2) Symptomatic bradycardia ICD Code: R00.1 Status: Acute (3) CKD (chronic kidney disease), stage III ICD Code: N18.3 Status: Chronic (4) Chronic systolic CHF (congestive heart failure) ICD Code: I50.22 Status: Chronic (5) Atrial fibrillation ICD Code: I48.91 Status: Chronic (6) Acute worsening of stage 3 chronic kidney disease ICD Code: N18.3 Status: Acute Assessment and Plan 1. Symptomatic bradycardia: Appreciate cardiology recommendations. Monitor on telemetry. Symptoms are improving. 2. Hypotension: Blood pressure somewhat improved. Monitor closely. 3. Acute kidney injury superimposed on chronic kidney disease, stage III: Monitor BUN and creatinine. Avoid nephrotoxic medications. 4. Severe sleep apnea: Needs home CPAP. Patient had seen Dr. Leigh as outpatient , but did not follow through with getting the CPAP. 5. Atrial fibrillation: Rate controlled. Continue Eliquis for anticoagulation. 6. Lower extremity edema: Ultrasound negative for DVT. 7. Seizure disorder: Continue Topamax. 8. DVT prophylaxis: Eliquis. Problem Qualifiers (1) Hypotension: Qualified Code: I95.9 - Hypotension, unspecified hypotension type Len Shah MD Jun 14, 2017 10:55
--- NOTE | 2017-06-14 11:44 | MB ---
cc: WALE CHOE MD DATE OF CONSULTATION 06/14/2017 REASON FOR CONSULTATION Bradycardia HISTORY OF PRESENT ILLNESS Mr. Bruno is a 57-year-old man who does have a history of cardiomyopathy with an known EF of about 25-30%. He has a history of atrial fibrillation and coronary artery disease by catheterization that showed an apical 50% LAD stenosis and was otherwise free of any significant CAD in October of 2016. The patient has been noncompliant and no show at his last office visit. The patient reports that he was going to the dentist to have his teeth pulled. He was given antibiotics but apparently did not take them. He denied any nausea or vomiting to me. This is notably inconsistent with the records. The patient did give me a history of weakness which precipitated his hospitalization. PAST MEDICAL HISTORY Significant for: 1. Hypertension 2. Atrial fibrillation 3. CHF 4. Cardiomyopathy 5. Nonischemic cardiomyopathy 6. Seizures OUTPATIENT MEDICATIONS Reportedly include: 1. Amiodarone 200 mg a day 2. Eliquis 5 mg b.i.d. 3. Aspirin 4. Bumex 1 mg a day 5. Atrovent 6. Topiramate 7. Doxazosin 8. Metoprolol 150 mg b.i.d. 9. Diltiazem 240 mg b.i.d. 10. Enalapril 20 mg daily FAMILY HISTORY Noncontributory SOCIAL HISTORY The patient does not drink or smoke. REVIEW OF SYSTEMS Except as mentioned in HPI, all 12 systems are negative. PHYSICAL EXAM On physical examination, vital signs are 97.6, 70, 108/57. GENERAL: In general, he is a morbidly obese man who is in no apparent distress. NECK: His neck is free from JVD. LUNGS: The lungs are bilaterally clear to auscultation, but have some scattered wheezing. CARDIOVASCULAR: In cardiovascular examination, he has a normal S1 and S2. The rhythm is irregularly irregular. ABDOMEN: The abdomen is soft. EXTREMITIES: The extremities are free of edema. Telemetry currently shows a rate of 60-70 beats a minute in atrial fibrillation. LAB VALUES Significant for a creatinine of 2.27. IMPRESSION Bradycardia - The patient did present with bradycardia and hypotension. It is not clear if this is from and dehydration or his strong antiarrhythmics or a combination of both. At this point, I would continue him on the metoprolol and hold the Diltiazem. We will reevaluate later as to whether this should be restarted at a lower dose or not. Apixaban is reasonable. I do not think I would continue the aspirin secondary to the high bleeding risk. Cardiomyopathy - The patient has a history of nonischemic cardiomyopathy. I will recheck an echo to evaluate his EF. He is a poor ICD candidate secondary to noncompliance and his poor dentition setting him up for possible device infections. If we can get the gentleman to follow up in the office and he does follow through with getting his teeth extracted, this would be a reasonable consideration assuming his EF is still depressed. Acute on chronic systolic heart failure - The patient now does have some rales. I am going to discontinue his IV fluid and continue his Bumex. Luis Alfredo Devries/SULLY /9:26 AM /11:28 AM
--- NOTE | 2017-06-14 15:36 | EKG ---
Date Performed: 06/14/2017 Time Performed: 03:35:46 PTAGE: 57 years EKG: ATRIAL FIBRILLATION WITH SLOW VENTRICULAR RESPONSE NONSPECIFIC T-WAVE ABNORMALITY Compared to previous tracing, ventricular response to the atrial fibrillation is slower, otherwise no signific ant change ABNORMAL RHYTHM ECG PREVIOUS TRACING : 04/02/2017 17.03 DOCTOR: Roderick Barron Interpretating Date/Time 06/14/2017 15:36:04
[2017-06-14] MEDS: TOPIRAMATE 100 MG TAB PO SCH (16:50)
--- NOTE | 2017-06-14 19:49 | ECHRPT ---
Indication: HEART FAILURE CONCLUSIONS Moderately dilated left ventricle. Wall thickness is normal. The left ventricular systolic function is severely reduced with an estimated ejection fraction less than 20%. There is global left ventricular dysfunction. The right ventricle is moderately dilated. The right ventricular systoilc function is moderately decreased. Measurements for the right ventricle is 10 mm x 55 mm.The left atrial size is zalwqnvb-oj-hcvymjmb d ilated. The right atrial size is nhfdvkal-ic-ufekkasx dilated. The interatrial septum not well visualized. Kyne-vm-pquwiqvh mitral valve regurgitation. Aortic valve sclerosis is present. No aortic valve regurgitation. No aortic valve stenosis. There is moderate tricuspid regurgitation. There is estimated moderate pulmonary hypertension present (range 50-60 mmHg). The pulmonary valve is not well visualized. The inferior vena cava is dilated. There is less than 50% respiratory change in dimension of the inferior vena cava (abnormal). BP: 97 / 60 HR: 56 Rhythm: Atrial fibrillation MEASUREMENTS (Male / Female) Normal Values Technical Quality:Technically difficult study 2D ECHO LV Diastolic Diameter PLAX 6.5 cm 4.2 - 5.9 / 3.9 - 5.3 cm LV Systolic Diameter PLAX 6.1 cm IVS Diastolic Thickness 0.8 cm 0.6 - 1.0 / 0.6 - 0.9 cm LVPW Diastolic Thickness 0.8 cm 0.6 - 1.0 / 0.6 - 0.9 cm LV Relative Wall Thickness 0.2 LVOT Diameter 2.2 cm Aortic Root Diameter 2.8 cm LA Systolic Diameter LX 4.5 cm 3.0 - 4.0 / 2.7 - 3.8 cm M-MODE AV Cusp Separation MM 2.0 cm DOPPLER AV Peak Velocity 119.9 cm/s AV Peak Gradient 5.8 mmHg AV Mean Gradient 3.5 mmHg AV Velocity Time Integral 20.4 cm LVOT Peak Velocity 61.9 cm/s LVOT Peak Gradient 1.5 mmHg LVOT Velocity Time Integral 9.6 cm LVOT Cardiac Index 737.9 cm/minm AV Area Cont Eq vti 1.8 cm AV Area Cont Eq pk 2.0 cm Mitral E Point Velocity 104.0 cm/s LV E' Lateral Velocity 11.1 cm/s Mitral E to LV E' Lateral Ratio 9.3 LV E' Septal Velocity 6.2 cm/s Mitral E to LV E' Septal Ratio 16.8 TR Peak Velocity 318.0 cm/s TR Peak Gradient 40.4 mmHg PV Peak Velocity 45.1 cm/s PV Peak Gradient 0.8 mmHg FINDINGS LEFT VENTRICLE Moderately dilated left ventricle. Wall thickness is normal. The left ventricular systolic function is severely reduced with an estimated ejection fraction less than 20%. There is global left ventricular dysfunction. RIGHT VENTRICLE The right ventricle is moderately dilated. The right ventricular systoilc function is moderately decreased. Measurements for the right ventricle is 10 mm x 55 mm. LEFT ATRIUM The left atrial size is sqcmmgvz-ue-odzxkinw dilated. RIGHT ATRIUM The right atrial size is zlfdjsiw-ti-tvfugopf dilated. ATRIAL SEPTUM The interatrial septum not well visualized. AORTA The aortic root and proximal ascending aorta are normal in size on limited imaging. MITRAL VALVE Structurally normal mitral valve. Evek-hd-rjkhjyms mitral valve regurgitation. AORTIC VALVE Trileaflet aortic valve. Aortic valve sclerosis is present. No aortic valve regurgitation. No aortic valve stenosis. TRICUSPID VALVE Structurally normal tricuspid valve. There is moderate tricuspid regurgitation. There is estimated moderate pulmonary hypertension present (range 50-60 mmHg). PULMONARY VALVE The pulmonary valve is not well visualized. VESSELS The inferior vena cava is dilated. There is less than 50% respiratory change in dimension of the inferior vena cava (abnormal). PERICARDIUM No pericardial effusion. Jamila Mccormack MD, FACC (Electronically Signed) Final Date:14 June 2017 19:48
[2017-06-14] MEDS: METOPROLOL TARTRATE 100 MG TAB PO SCH (21:43)
[2017-06-15] VITALS (19 sets, daily range): BP systolic 117–153; BP diastolic 79–91; PULSE 60–83; RESP 18–22; TEMP 97.1–98.2; O2SAT 94–100
[2017-06-15 03:54] LABS: AUTOMATED NEUTROPHIL # 3.9 TH/MM3 (1.8-7.7); BASOPHIL # 0.1 TH/MM3 (0-0.2); BASOPHIL % 1.1 % (0.0-2.0); EOSINOPHIL # 0.2 TH/MM3 (0-0.4); EOSINOPHIL % 3.5 % (0.0-4.0); HEMATOCRIT 37.3 % (39.0-51.0); LYMPHOCYTE # 1.5 TH/MM3 (1.0-4.8); MEAN CELL VOLUME 91.3 FL (80.0-100.0); MEAN CORPUSCULAR HGB CONC 31.8 % (32.0-36.0); MONO % 11.4 % (0.0-8.0); PLATELET COUNT 69 TH/MM3 (150-450); RED BLOOD COUNT 4.08 MIL/MM3 (4.50-5.90); RED CELL DISTRIBUTION WIDTH 14.7 % (11.6-17.2); WHITE BLOOD COUNT 6.4 TH/MM3 (4.0-11.0)
[2017-06-15 04:03] LABS: HEMO FLAGS AUTO DIFF
[2017-06-15 04:17] LABS: BICARBONATE 26.8 MEQ/L (21.0-32.0); POTASSIUM 4.2 MEQ/L (3.5-5.1)
[2017-06-15 05:22] LABS: PLATELET ESTIMATE SMEAR LOW (NORMAL); PLATELET MORPHOLOGY ENLARGED (NORMAL); SCAN/DIFF AUTO DIFF CONFIRMED
[2017-06-15] MEDS: TOPIRAMATE 100 MG TAB PO SCH (08:32)
[2017-06-15] MEDS: METOPROLOL TARTRATE 100 MG TAB PO SCH ×2 (08:32→20:22)
[2017-06-15] MEDS: APIXABAN 5 MG TABLET PO SCH (08:32)
[2017-06-15] MEDS: BUMETANIDE 1 MG TAB PO SCH (08:32)
[2017-06-15] MEDS: SODIUM CHLORIDE 0.9% FLUSH 10 ML FLUSH IV FLUSH SCH ×2 (08:33→20:22)
[2017-06-15] MEDS: AMIODARONE 200 MG TAB PO SCH (08:33)
[2017-06-15] MEDS: ENALAPRIL MALEATE 10 MG TAB PO SCH (08:33)
--- NOTE | 2017-06-15 08:47 | HHI.PR ---
Subjective Remarks Follow up bradycardia. Patient states that he feels good today. Denies chest pain, dyspnea. Objective Vitals Vital Signs Date Time Temp Pulse Resp B/P Pulse Ox O2 Delivery O2 Flow Rate FiO2 06/15/17 08:44 100 Nasal Cannula 2.00 06/15/17 08:04 78 06/15/17 07:00 97.4 83 19 127/84 99 06/15/17 07:00 63 06/15/17 07:00 100 Nasal Cannula 2.00 06/15/17 06:00 68 06/15/17 05:06 80 18 153/83 98 06/15/17 04:57 64 06/15/17 04:17 94 35 06/15/17 04:00 96 Bi-Pap 35 06/15/17 04:00 97.4 74 22 139/88 96 06/15/17 04:00 74 06/15/17 00:51 96 35 06/15/17 00:00 98 Bi-Pap 35 06/15/17 00:00 60 06/15/17 00:00 60 20 119/83 98 06/14/17 22:40 94 35 06/14/17 22:30 99 Bi-Pap 35 06/14/17 20:55 94 Nasal Cannula 2.00 06/14/17 20:00 97 Nasal Cannula 2.00 06/14/17 20:00 62 06/14/17 20:00 97.1 62 22 113/77 97 06/14/17 15:00 97.6 63 16 94/41 97 06/14/17 15:00 63 06/14/17 11:00 98.1 62 16 105/73 97 06/14/17 11:00 62 06/14/17 10:17 95 Nasal Cannula 3.00 I/O 06/14/17 06/14/17 06/14/17 06/15/17 06/15/17 06/15/17 07:00 15:00 23:00 07:00 15:00 23:00 Intake Total 800 ml 480 ml Output Total 1380 ml 1700 ml Balance -580 ml -1220 ml Intake Oral 800 ml 480 ml Output Urine Total 1380 ml 1700 ml # Bowel Movements 0 0 Result Diagram: 06/15/17 0346 06/15/17 0346 Imaging Last Impressions Lower Extremity Ultrasound 06/14/17 0000 Signed Impressions: Service Date/Time: Wednesday, June 14, 2017 08:15 - CONCLUSION: Normal examination. Kushal Camacho MD Objective Remarks General: Obese male in no acute distress. Heart: Irregular rhythm. Lungs: Clear to auscultation bilaterally. No wheezes, rales, or rhonchi. Breathing is nonlabored. Abdomen: Soft, nontender, nondistended. Extremities: 2+ bilateral lower extremity edema. Psych: Alert and oriented. Procedures None Urinary Catheter: No Vascular Central Line Catheter: No A/P Problem List: (1) Hypotension ICD Code: I95.9 Status: Acute (2) Symptomatic bradycardia ICD Code: R00.1 Status: Acute (3) CKD (chronic kidney disease), stage III ICD Code: N18.3 Status: Chronic (4) Chronic systolic CHF (congestive heart failure) ICD Code: I50.22 Status: Chronic (5) Atrial fibrillation ICD Code: I48.91 Status: Chronic (6) Acute worsening of stage 3 chronic kidney disease ICD Code: N18.3 Status: Acute (7) Thrombocytopenia ICD Code: D69.6 Status: Acute Assessment and Plan 1. Symptomatic bradycardia: Appreciate cardiology recommendations. Monitor on telemetry. Symptoms are improving. Rate has improved. 2. Hypotension: Blood pressure somewhat improved. Monitor closely. 3. Acute kidney injury superimposed on chronic kidney disease, stage III: Monitor BUN and creatinine. Avoid nephrotoxic medications. BUN/creatinine improving. 4. Severe sleep apnea: Needs home CPAP. Patient had seen Dr. Leigh as outpatient , but did not follow through with getting the CPAP. 5. Atrial fibrillation: Rate controlled. Continue Eliquis for anticoagulation. 6. Lower extremity edema: Ultrasound negative for DVT. 7. Seizure disorder: Continue Topamax. 8. Thrombocytopenia: Consult hematology. 9. DVT prophylaxis: Eliquis. Problem Qualifiers (1) Hypotension: Qualified Code: I95.9 - Hypotension, unspecified hypotension type Len Shah MD Jun 15, 2017 08:47
--- NOTE | 2017-06-15 09:43 | PD.CARD.PN ---
Subjective Subjective Remarks Pt without CV complaints Objective Medications Current Medications Medications (Trade) Dose Ordered Sig/Ashok Route Start Time Stop Time Status Last Admin (NS Flush) 2 ml UNSCH PRN IV FLUSH 06/14/17 04:30 (NS Flush) 2 ml BID IV FLUSH 06/14/17 09:00 06/15/17 08:33 (Narcan Inj) 0.4 mg UNSCH PRN IV 06/14/17 04:30 (Cordarone) 200 mg DAILY PO 06/14/17 09:00 06/15/17 08:33 (Eliquis) 5 mg BID PO 06/14/17 09:00 06/15/17 08:32 (Bumetanide) 1 mg DAILY PO 06/14/17 10:00 06/15/17 08:32 (Lopressor) 100 mg Q12HR PO 06/14/17 21:00 06/15/17 08:32 (Vasotec) 10 mg DAILY PO 06/15/17 09:00 06/15/17 08:33 (Topamax) 100 mg DAILY PO 06/14/17 11:00 06/15/17 08:32 Vital Signs / I&O Vital Signs Date Time Temp Pulse Resp B/P Pulse Ox O2 Delivery O2 Flow Rate FiO2 06/15/17 09:05 77 06/15/17 08:44 100 Nasal Cannula 2.00 06/15/17 08:04 78 06/15/17 07:00 97.4 83 19 127/84 99 06/15/17 07:00 63 06/15/17 07:00 100 Nasal Cannula 2.00 06/15/17 06:00 68 06/15/17 05:06 80 18 153/83 98 06/15/17 04:57 64 06/15/17 04:17 94 35 06/15/17 04:00 96 Bi-Pap 35 06/15/17 04:00 97.4 74 22 139/88 96 06/15/17 04:00 74 06/15/17 00:51 96 35 06/15/17 00:00 98 Bi-Pap 35 06/15/17 00:00 60 06/15/17 00:00 60 20 119/83 98 06/14/17 22:40 94 35 06/14/17 22:30 99 Bi-Pap 35 06/14/17 20:55 94 Nasal Cannula 2.00 06/14/17 20:00 97 Nasal Cannula 2.00 06/14/17 20:00 62 06/14/17 20:00 97.1 62 22 113/77 97 06/14/17 15:00 97.6 63 16 94/41 97 06/14/17 15:00 63 06/14/17 11:00 98.1 62 16 105/73 97 06/14/17 11:00 62 06/14/17 10:17 95 Nasal Cannula 3.00 I/O 06/14/17 06/14/17 06/14/17 06/15/17 06/15/17 06/15/17 07:00 15:00 23:00 07:00 15:00 23:00 Intake Total 800 ml 480 ml Output Total 1380 ml 1700 ml Balance -580 ml -1220 ml Intake Oral 800 ml 480 ml Output Urine Total 1380 ml 1700 ml # Bowel Movements 0 0 Physical Exam GENERAL: Well developed, well nourished. No acute distress. HEENT: Jugular venous pressure is normal. CHEST: Lungs clear to auscultation bilaterally. Unlabored respiratory effort. CARDIAC: Regular rate and rhythm without S3, S4, or murmur. ABDOMEN: Soft, nontender, no hepatosplenomegaly. Bowel sounds present. EXTREMITIES: No clubbing, cyanosis, or edema. Laboratory Laboratory Tests Test 06/15/17 03:46 White Blood Count 6.4 TH/MM3 Red Blood Count 4.08 MIL/MM3 Hemoglobin 11.8 GM/DL Hematocrit 37.3 % Mean Corpuscular Volume 91.3 FL Mean Corpuscular Hemoglobin 29.0 PG Mean Corpuscular Hemoglobin 31.8 % Concent Red Cell Distribution Width 14.7 % Platelet Count 69 TH/MM3 Mean Platelet Volume 11.4 FL Neutrophils (%) (Auto) 61.0 % Lymphocytes (%) (Auto) 23.0 % Monocytes (%) (Auto) 11.4 % Eosinophils (%) (Auto) 3.5 % Basophils (%) (Auto) 1.1 % Neutrophils # (Auto) 3.9 TH/MM3 Lymphocytes # (Auto) 1.5 TH/MM3 Monocytes # (Auto) 0.7 TH/MM3 Eosinophils # (Auto) 0.2 TH/MM3 Basophils # (Auto) 0.1 TH/MM3 CBC Comment AUTO DIFF Differential Total Cells Counted Differential Comment AUTO DIFF CONFIRMED Platelet Estimate LOW Platelet Morphology Comment ENLARGED Sodium Level 142 MEQ/L Potassium Level 4.2 MEQ/L Chloride Level 107 MEQ/L Carbon Dioxide Level 26.8 MEQ/L Anion Gap 8 MEQ/L Blood Urea Nitrogen 32 MG/DL Creatinine 1.84 MG/DL Estimat Glomerular Filtration 46 ML/MIN Rate Random Glucose 103 MG/DL Calcium Level 8.3 MG/DL Imaging Last 72 hours Impressions Lower Extremity Ultrasound 06/14/17 0000 Signed Impressions: Service Date/Time: Wednesday, June 14, 2017 08:15 - CONCLUSION: Normal examination. Kushal Camacho MD Assessment and Plan Assessment and Plan AF with bradycardia- doing well with cardizem on hold (was cardizem 240 BID and metoprolol 150 BID and amio) -on metoprolol 100 BID with amio continued, -stop eliquis in light of progressive thrombocytopenia Jamila Mccormack MD Jun 15, 2017 09:43
[2017-06-15] MEDS ORDERED: AMIODARONE INJ 450 MG in D5W (EXCEL BAG) 241 ML IV SCH (17:00)
[2017-06-15] MEDS ORDERED: ACETAMINOPHEN 325 MG TAB PO PRN (17:00)
--- NOTE | 2017-06-15 17:38 | MB ---
cc: JOVITA SHAH RUBY ANNE E. M.D. DATE OF CONSULTATION: 06/15/2017. REASON FOR CONSULTATION: Dr. Shah requested consultation for Mr. Bruno regarding thrombocytopenia. REFERRING PHYSICIAN: Dr. Jovita Shah. HISTORY OF PRESENT ILLNESS: Mr. Bruno is a 57-year-old morbidly obese man. He has multiple medical problems including hypertension, atrial fibrillation, coronary artery disease, congestive heart failure. He has periodontal disease and abscess. He was started on antibiotic therapy by his dentist but the prescription has not been filled as yet. He went to the emergency room on 06/14/2017 with generalized weakness. He was admitted with symptomatic bradycardia suspected secondary to cardiomyopathy. He is followed by his record systems analyst, Dr. Mccormack, who is concerned about his compliance. He is anticoagulated for atrial fibrillation with Eliquis. Aspirin has been placed on hold. Doppler ultrasound of the lower extremities was performed to rule out a deep vein thromboses and indeed it was negative. His course was complicated by sleep apnea for which he is on a C-PAP. He also has renal insufficiency which shows chronic renal insufficiency with estimated glomerulofiltration rate in the 30% to 40% range. He was found to have thrombocytopenia. His admission platelet count was 71,000. His platelet count decreased to 69,000. His mean platelet volume (MPV) was elevated. Review of the electronic medical record shows thrombocytopenia dating back to 2003. His mean platelet volume has been elevated since 2001. He has evidence of intermittent anemia. His hemoglobin today is 11.8. His MCV is normal. The rest of his review of systems is negative. He otherwise has a good appetite. Denies drinking or smoking. He has old trauma to the left leg. He has chronic discoloration of the left leg. He denies any bleeding. No melena or bright red blood per rectum. He denies any chest pain at present. PAST MEDICAL HISTORY: His past medical history is described above: 1. Hypertension. 2. Atrial fibrillation. 3. Congestive heart failure. 4. Cardiomyopathy. 5. Seizure disorder. 6. Chronic venous insufficiency. 7. Anemia. 8. Chronic thrombocytopenia with elevated mean platelet volume. PAST SURGICAL HISTORY: None. FAMILY HISTORY: Mother is alive. There is a questionable history if the mother has leukemia. Father of a myocardial infarction in his 50s. SOCIAL HISTORY: He is a lifelong smoker. He denies any alcohol or illicit drug use. PHYSICAL EXAMINATION: VITAL SIGNS: Temperature 97.4 heart rate 72, respiratory rate 18, blood pressure 117/84, saturation 95%. GENERAL: Mr. Bruno is a pleasant 57-year-old man who is morbidly obese. He has massive sized and redundant pannus. HEAD, EYES, EARS, NOSE, THROAT: His pupils are round and reactive to light and accommodation. His oropharynx is clear. He has poor dentition. Prominent anterior incisor. NECK: The neck is supple with no adenopathy. LUNGS: Clear to auscultation. CARDIOVASCULAR: Rate controlled rhythm. Distant heart sounds in light of his size. ABDOMEN: Benign. Difficult to examine in light of the redundant pannus. EXTREMITIES: Lower extremities with bilateral trace edema. Chronic hyperpigmented changes in the left leg. LABS: As described above. BUN 32, creatinine 1.84. Liver functions are normal. Brain natriuretic peptide 286. ASSESSMENT AND PLAN: Mr. Bruno is a 57-year-old man with multiple medical problems and morbid obesity. He is admitted with generalized weakness and found to have atrial fibrillation. His atrial fibrillation is now rate controlled. It is recommended to continue anticoagulant therapy. Hematology / oncology is consulted because of the thrombocytopenia. I had a lengthy discussion with Mr. Bruno regarding the differential for thrombocytopenia. He denies any liver disease. We will see if ultrasound of the abdomen can identify the liver and determine if there is any fatty liver changes or evidence of splenomegaly, which may account for the thrombocytopenia. The peripheral smear will be reviewed with pathology. We discussed the risks and benefit of bone marrow biopsy evaluation. He is needing a bone marrow biopsy as ITP is in the differential. He seems to have an increase in the mean platelet volume consistent with ITP. He has had thrombocytopenia dating back to 2003. Intermittently he has had anemia. In light of his large size, his bone marrow biopsy will need to be performed by interventional radiology. Will discuss with interventional radiology if this could even be performed on their equipment given that he weighs over 160 kilos. To this end, his Eliquis will be placed on hold pending his bone marrow biopsy evaluation on Saturday. He has no bleeding problem at present. His renal insufficiency is stable. We discussed the evaluation for the thrombocytopenia in light of his need to continue long-term anticoagulant therapy for his atrial fibrillation and cardiomyopathy. Mr. Bruno's questions were answered to his satisfaction. MD RADHA Pop/TIN /4:56 PM /5:20 PM FELIPE
[2017-06-15 18:10] LABS: FERRITIN 79 NG/ML (26-388)
[2017-06-15] MEDS ORDERED: AMIODARONE 200 MG TAB PO SCH (21:00)
[2017-06-15] MEDS: traMADol HCL 50 MG TAB PO PRN (21:25)
[2017-06-16] VITALS (10 sets, daily range): BP systolic 100–132; BP diastolic 58–87; PULSE 58–86; RESP 18; TEMP 97.1–98.5; O2SAT 94–100
[2017-06-16] MEDS: traMADol HCL 50 MG TAB PO PRN ×2 (03:48→09:34)
[2017-06-16] MEDS: TOPIRAMATE 100 MG TAB PO SCH (09:33)
[2017-06-16] MEDS: ENALAPRIL MALEATE 10 MG TAB PO SCH (09:33)
[2017-06-16] MEDS: BUMETANIDE 1 MG TAB PO SCH (09:34)
[2017-06-16] MEDS: METOPROLOL TARTRATE 100 MG TAB PO SCH ×2 (09:34→20:58)
[2017-06-16] MEDS: SODIUM CHLORIDE 0.9% FLUSH 10 ML FLUSH IV FLUSH SCH ×2 (09:35→20:58)
[2017-06-16 09:52] LABS: AUTOMATED NEUTROPHIL # 3.3 TH/MM3 (1.8-7.7); BASOPHIL % 0.6 % (0.0-2.0); EOSINOPHIL # 0.2 TH/MM3 (0-0.4); EOSINOPHIL % 4.1 % (0.0-4.0); HEMATOCRIT 40.1 % (39.0-51.0); LYMPH % 27.1 % (9.0-44.0); LYMPHOCYTE # 1.5 TH/MM3 (1.0-4.8); MEAN CELL VOLUME 91.2 FL (80.0-100.0); MEAN CORPUSCULAR HEMOGLOBIN 28.8 PG (27.0-34.0); MEAN CORPUSCULAR HGB CONC 31.5 % (32.0-36.0); MONO % 9.2 % (0.0-8.0); PLATELET COUNT 75 TH/MM3 (150-450); RED BLOOD COUNT 4.39 MIL/MM3 (4.50-5.90); RED CELL DISTRIBUTION WIDTH 14.4 % (11.6-17.2); WHITE BLOOD COUNT 5.6 TH/MM3 (4.0-11.0)
[2017-06-16 10:11] LABS: HEMO FLAGS AUTO DIFF
[2017-06-16 10:14] LABS: BICARBONATE 27.7 MEQ/L (21.0-32.0)
--- NOTE | 2017-06-16 11:19 | HHI.PR ---
Subjective Remarks Follow up thrombocytopenia, bradycardia. Patient has no complaints at this time. Denies chest pain, dyspnea. Denies nausea or vomiting. Objective Vitals Vital Signs Date Time Temp Pulse Resp B/P Pulse Ox O2 Delivery O2 Flow Rate FiO2 06/16/17 08:00 97.9 70 18 123/84 94 06/16/17 04:47 96 30 06/16/17 04:00 Room Air 06/16/17 04:00 97.1 79 18 100/75 100 06/16/17 01:47 94 BiPAP 30 06/16/17 01:33 94 30 06/16/17 00:00 97.4 58 18 107/58 95 06/16/17 00:00 Room Air 06/15/17 20:00 68 06/15/17 20:00 97.1 83 18 133/91 97 06/15/17 20:00 Room Air 06/15/17 16:00 97.4 72 18 117/84 95 06/15/17 15:49 Room Air 06/15/17 14:20 97.4 70 18 142/84 97 06/15/17 13:20 73 06/15/17 12:30 68 06/15/17 11:35 98.2 80 20 126/79 99 I/O 06/15/17 06/15/17 06/15/17 06/16/17 06/16/17 06/16/17 07:00 15:00 23:00 07:00 15:00 23:00 Intake Total 480 ml 245 ml Output Total 1700 ml Balance -1220 ml 245 ml Intake Oral 480 ml 240 ml IV Total 5 ml Output Urine Total 1700 ml # Voids 2 # Bowel Movements 0 0 Result Diagram: 06/16/17 0740 06/16/17 0740 Imaging Last Impressions Lower Extremity Ultrasound 06/14/17 0000 Signed Impressions: Service Date/Time: Wednesday, June 14, 2017 08:15 - CONCLUSION: Normal examination. Kushal Camacho MD Objective Remarks General: Obese male in no acute distress. Heart: Irregular rhythm. Lungs: Clear to auscultation bilaterally. No wheezes, rales, or rhonchi. Breathing is nonlabored. Abdomen: Soft, nontender, nondistended. Extremities: 2+ bilateral lower extremity edema. Psych: Alert and oriented. Procedures None Urinary Catheter: No Vascular Central Line Catheter: No A/P Problem List: (1) Hypotension ICD Code: I95.9 Status: Acute (2) Symptomatic bradycardia ICD Code: R00.1 Status: Acute (3) CKD (chronic kidney disease), stage III ICD Code: N18.3 Status: Chronic (4) Chronic systolic CHF (congestive heart failure) ICD Code: I50.22 Status: Chronic (5) Atrial fibrillation ICD Code: I48.91 Status: Chronic (6) Acute worsening of stage 3 chronic kidney disease ICD Code: N18.3 Status: Acute (7) Thrombocytopenia ICD Code: D69.6 Status: Acute Assessment and Plan 1. Symptomatic bradycardia: Appreciate cardiology recommendations. Monitor on telemetry. Symptoms are improving. Rate has improved. 2. Hypotension: Blood pressure improved. 3. Acute kidney injury superimposed on chronic kidney disease, stage III: Monitor BUN and creatinine. Avoid nephrotoxic medications. 4. Severe sleep apnea: Needs home CPAP. Patient had seen Dr. Leigh as outpatient , but did not follow through with getting the CPAP. 5. Atrial fibrillation: Eliquis on hold per cardiology secondary to thrombocytopenia. 6. Lower extremity edema: Ultrasound negative for DVT. 7. Seizure disorder: Continue Topamax. 8. Thrombocytopenia: Appreciate hematology recommendations. Abdominal ultrasound ordered. May need bone marrow biopsy. 9. DVT prophylaxis: Eliquis on hold. Problem Qualifiers (1) Hypotension: Qualified Code: I95.9 - Hypotension, unspecified hypotension type Len Shah MD Jun 16, 2017 11:19
--- NOTE | 2017-06-16 11:36 | PD.CARD.PN ---
Subjective Subjective Remarks Pt without CV complaints Objective Medications Current Medications Medications (Trade) Dose Ordered Sig/Ashok Route Start Time Stop Time Status Last Admin (NS Flush) 2 ml UNSCH PRN IV FLUSH 06/14/17 04:30 (NS Flush) 2 ml BID IV FLUSH 06/14/17 09:00 06/16/17 09:35 (Narcan Inj) 0.4 mg UNSCH PRN IV 06/14/17 04:30 (Eliquis) 5 mg BID PO 06/14/17 09:00 Hold 06/15/17 08:32 (Bumetanide) 1 mg DAILY PO 06/14/17 10:00 06/16/17 09:34 (Lopressor) 100 mg Q12HR PO 06/14/17 21:00 06/16/17 09:34 (Vasotec) 10 mg DAILY PO 06/15/17 09:00 06/16/17 09:33 (Topamax) 100 mg DAILY PO 06/14/17 11:00 06/16/17 09:33 (Ultram) 50 mg Q6H PRN PO 06/15/17 21:15 06/16/17 09:34 (Tylenol) 650 mg Q6H PRN PO 06/15/17 21:30 Vital Signs / I&O Vital Signs Date Time Temp Pulse Resp B/P Pulse Ox O2 Delivery O2 Flow Rate FiO2 06/16/17 08:00 97.9 70 18 123/84 94 06/16/17 04:47 96 30 06/16/17 04:00 Room Air 06/16/17 04:00 97.1 79 18 100/75 100 06/16/17 01:47 94 BiPAP 30 06/16/17 01:33 94 30 06/16/17 00:00 97.4 58 18 107/58 95 06/16/17 00:00 Room Air 06/15/17 20:00 68 06/15/17 20:00 97.1 83 18 133/91 97 06/15/17 20:00 Room Air 06/15/17 16:00 97.4 72 18 117/84 95 06/15/17 15:49 Room Air 06/15/17 14:20 97.4 70 18 142/84 97 06/15/17 13:20 73 06/15/17 12:30 68 06/15/17 11:35 98.2 80 20 126/79 99 I/O 06/15/17 06/15/17 06/15/17 06/16/17 06/16/17 06/16/17 07:00 15:00 23:00 07:00 15:00 23:00 Intake Total 480 ml 245 ml Output Total 1700 ml Balance -1220 ml 245 ml Intake Oral 480 ml 240 ml IV Total 5 ml Output Urine Total 1700 ml # Voids 2 # Bowel Movements 0 0 Physical Exam GENERAL: Well developed, well nourished. No acute distress. HEENT: Jugular venous pressure is normal. CHEST: Lungs clear to auscultation bilaterally. Unlabored respiratory effort. CARDIAC: Regular rate and rhythm without S3, S4, or murmur. ABDOMEN: Soft, nontender, no hepatosplenomegaly. Bowel sounds present. EXTREMITIES: No clubbing, cyanosis, or edema. Laboratory Laboratory Tests Test 06/16/17 07:40 White Blood Count 5.6 TH/MM3 Red Blood Count 4.39 MIL/MM3 Hemoglobin 12.6 GM/DL Hematocrit 40.1 % Mean Corpuscular Volume 91.2 FL Mean Corpuscular Hemoglobin 28.8 PG Mean Corpuscular Hemoglobin 31.5 % Concent Red Cell Distribution Width 14.4 % Platelet Count 75 TH/MM3 Mean Platelet Volume 12.0 FL Neutrophils (%) (Auto) 59.0 % Lymphocytes (%) (Auto) 27.1 % Monocytes (%) (Auto) 9.2 % Eosinophils (%) (Auto) 4.1 % Basophils (%) (Auto) 0.6 % Neutrophils # (Auto) 3.3 TH/MM3 Lymphocytes # (Auto) 1.5 TH/MM3 Monocytes # (Auto) 0.5 TH/MM3 Eosinophils # (Auto) 0.2 TH/MM3 Basophils # (Auto) 0.0 TH/MM3 CBC Comment AUTO DIFF Sodium Level 141 MEQ/L Potassium Level 4.0 MEQ/L Chloride Level 105 MEQ/L Carbon Dioxide Level 27.7 MEQ/L Anion Gap 8 MEQ/L Blood Urea Nitrogen 29 MG/DL Creatinine 1.88 MG/DL Estimat Glomerular Filtration 45 ML/MIN Rate Random Glucose 65 MG/DL Calcium Level 8.4 MG/DL Assessment and Plan Assessment and Plan AF - continues to do well with cardizem on hold (was cardizem 240 BID and metoprolol 150 BID and amio) -on metoprolol 100 BID with amio continued, -appreciate H/O recommendations; I will leave elikalyani off for bone marrow biopsy restart as appropriate after procedure Acute on chronic systolic failure- better - continue present meds -no spironolactone with Cr 1.9 Cardiomyopathy- ECHO EF <20% - on BB and FABRICE, diuretic - need for ICD/high risk for sudden discussed and that he needs to establish compliance and get dental needs taken care of to get device Thrombocytopenia- appreciate H/O CKD- Cr 1.9 Jamila Mccormack MD Jun 16, 2017 11:36
[2017-06-16 12:13] LABS: PLATELET ESTIMATE SMEAR LOW (NORMAL); PLATELET MORPHOLOGY ENLARGED (NORMAL); SCAN/DIFF AUTO DIFF CONFIRMED
--- NOTE | 2017-06-16 15:11 | PD.ONC.PN ---
Subjective Subjective Remarks Afebrile overnight No bleeding Nausea improved Objective Data Date Time Temp Pulse Resp B/P Pulse Ox O2 Delivery O2 Flow Rate FiO2 06/16/17 12:00 97.5 86 18 116/84 97 06/16/17 11:00 Room Air 06/16/17 08:15 84 06/16/17 08:15 84 06/16/17 08:00 97.9 70 18 123/84 94 06/16/17 07:15 Room Air 06/16/17 04:47 96 30 06/16/17 04:00 Room Air 06/16/17 04:00 97.1 79 18 100/75 100 06/16/17 01:47 94 BiPAP 30 06/16/17 01:33 94 30 06/16/17 00:00 97.4 58 18 107/58 95 06/16/17 00:00 Room Air 06/15/17 20:00 68 06/15/17 20:00 97.1 83 18 133/91 97 06/15/17 20:00 Room Air 06/15/17 16:00 97.4 72 18 117/84 95 06/15/17 15:49 Room Air Result Diagram: 06/16/17 0740 06/16/17 0740 Laboratory Results Laboratory Tests Test 06/16/17 07:40 White Blood Count 5.6 TH/MM3 Red Blood Count 4.39 MIL/MM3 Hemoglobin 12.6 GM/DL Hematocrit 40.1 % Mean Corpuscular Volume 91.2 FL Mean Corpuscular Hemoglobin 28.8 PG Mean Corpuscular Hemoglobin 31.5 % Concent Red Cell Distribution Width 14.4 % Platelet Count 75 TH/MM3 Mean Platelet Volume 12.0 FL Neutrophils (%) (Auto) 59.0 % Lymphocytes (%) (Auto) 27.1 % Monocytes (%) (Auto) 9.2 % Eosinophils (%) (Auto) 4.1 % Basophils (%) (Auto) 0.6 % Neutrophils # (Auto) 3.3 TH/MM3 Lymphocytes # (Auto) 1.5 TH/MM3 Monocytes # (Auto) 0.5 TH/MM3 Eosinophils # (Auto) 0.2 TH/MM3 Basophils # (Auto) 0.0 TH/MM3 CBC Comment AUTO DIFF Differential Comment AUTO DIFF CONFIRMED Platelet Estimate LOW Platelet Morphology Comment ENLARGED Sodium Level 141 MEQ/L Potassium Level 4.0 MEQ/L Chloride Level 105 MEQ/L Carbon Dioxide Level 27.7 MEQ/L Anion Gap 8 MEQ/L Blood Urea Nitrogen 29 MG/DL Creatinine 1.88 MG/DL Estimat Glomerular Filtration 45 ML/MIN Rate Random Glucose 65 MG/DL Calcium Level 8.4 MG/DL Administered Medications Medications (Trade) Dose Ordered Sig/Ashok Route PRN Reason Start Time Stop Time Status Last Admin Dose Admin Sodium Chloride (NS Flush) 2 ml BID IV FLUSH 06/14/17 09:00 06/16/17 09:35 Apixaban (Eliquis) 5 mg BID PO 06/14/17 09:00 Hold 06/15/17 08:32 Bumetanide (Bumetanide) 1 mg DAILY PO 06/14/17 10:00 06/16/17 09:34 Metoprolol Tartrate (Lopressor) 100 mg Q12HR PO 06/14/17 21:00 06/16/17 09:34 Enalapril Maleate (Vasotec) 10 mg DAILY PO 06/15/17 09:00 06/16/17 09:33 Topiramate (Topamax) 100 mg DAILY PO 06/14/17 11:00 06/16/17 09:33 Tramadol HCl (Ultram) 50 mg Q6H PRN PO pain > 5 06/15/17 21:15 06/16/17 09:34 Objective Remarks GENERAL: Middle-aged, morbidly obese male sitting up in chair at bedside in no acute distress SKIN: Warm and dry. No oozing from lines HEAD: Normocephalic. EYES: No injection or drainage. NECK: Supple, trachea midline. CARDIOVASCULAR: + S1/S2 RESPIRATORY: Lungs clear anteriorly. Breathing unlabored at rest. GASTROINTESTINAL: Abdomen obese, soft. Nontender to palpation. EXTREMITIES: BLE edema. Worse on the left. NEUROLOGICAL: No obvious focal deficit. Awake, alert, and oriented x3. Assessment/Plan Problem List: (1) Thrombocytopenia Status: Chronic Plan: --Patient has long-standing history of thrombocytopenia, dating back to 2003. --Will get a bone marrow biopsy by radiology -- Mean platelet volume elevated (2) Atrial fibrillation Status: Chronic Plan: -- On Eliquis for anticoagulation -- Currently on hold for bone marrow biopsy Assessment 57-year-old male admitted with generalized weakness and nausea. Hematology consulted for thrombocytopenia Plan 1. Radiology consulted for bone marrow biopsy 2. Monitor CBC 3. Supportive care Attending Statement The exam, history, and the medical decision-making described in the above note were completed with the assistance of the mid-level provider. I reviewed and agree with the findings presented. I attest that I had a [id number] encounter with the patient on the same day, and personally performed and documented my assessment and findings in the medical record. Pt seen and examined. Pt ate breakfast so US was delayed. Pending bone marrow biopsy. Shila Molina Jun 16, 2017 15:11 Cindy Aguilera MD Jun 16, 2017 22:05
--- NOTE | 2017-06-16 19:42 | RADRPT ---
EXAM DATE/TIME: 06/16/2017 18:13 [facility] COMPARISON: No previous studies available for comparison. INDICATIONS : Thrombocytopenia. MEDICAL HISTORY : Myocardial infarction. Congestive heart failure. Hypercholesterolemia. Epilepsy. Anticoagulant therap y, Eloquis. Afib. Hypertension. Sleep apnea. Renal disease. Coronary artery disease. SURGICAL HISTORY : None. ENCOUNTER: Initial ACUITY: 2 days PAIN SCORE: 0/10 LOCATION: Bilateral upper quadrant MEASUREMENTS: LIVER: 17.8 cm length COMMON DUCT: Non-visualized RIGHT KIDNEY: 11.3 x 4.0 x 4.4 cm LEFT KIDNEY: 9.8 x 3.2 x 4.2 cm SPLEEN: 10.4 cm length AORTA: 1.7 cm maximal FINDINGS: LIVER: Poorly visualized due to overlying bowel gas and body habitus. No gross abnormality. COMMON DUCT: Not visualized. GALLBLADDER: Contains no stones, demonstrates no wall thickening or pericholecystic fluid. PANCREAS: Not well-visualized. RIGHT KIDNEY: Poorly visualized due to overlying bowel gas and body habitus. 2.7 x 2.2 x 2.1 cm cyst in the lateral midpole. Internal echoes may be artifactual. No evidence of hydronephrosis. LEFT KIDNEY: Poorly visualized due to overlying bowel gas and body habitus. No evidence of hydronephrosis. SPLEEN: No focal lesion. AORTA: Visualized portion normal diameter. IVC: Visualized portion within normal limits. CONCLUSION: Limited sonographic windows due to patient body habitus and bowel gas. Right renal cyst. Visualized p ortions of the abdomen otherwise within normal limits. Jose Bruno MD on June 16, 2017 at 19:37 Board Certified Radiologist. This report was verified electronically.
[2017-06-17] VITALS (13 sets, daily range): BP systolic 104–152; BP diastolic 67–90; PULSE 54–102; RESP 16–18; TEMP 97.1–98.7; O2SAT 47–100
[2017-06-17] MEDS ORDERED: ATROPINE SULFATE 1 MG/10 ML SYRINGE IV ONE (05:00)
[2017-06-17] MEDS ORDERED: EPINEPHrine HCL (1:10,000) 1 MG/10 ML SYRINGE IV ONE (05:00)
[2017-06-17] MEDS ORDERED: SODIUM BICARBONATE 8.4% INJ 50 MEQ/50 ML SYR IV ONE (05:00)
[2017-06-17] MEDS ORDERED: EPINEPHrine HCL (1:1000) 30 MG/30 ML VIAL IV ONE (05:00)
[2017-06-17] MEDS: ENALAPRIL MALEATE 10 MG TAB PO SCH (09:00)
[2017-06-17] MEDS: TOPIRAMATE 100 MG TAB PO SCH (09:00)
[2017-06-17] MEDS: METOPROLOL TARTRATE 100 MG TAB PO SCH (09:00)
[2017-06-17] MEDS: BUMETANIDE 1 MG TAB PO SCH (09:00)
--- NOTE | 2017-06-17 09:59 | PD.ONC.PN ---
Subjective Subjective Remarks Afebrile overnight. Patient resting in room. Waiting to go down for bone marrow biopsy. Hungry as he is fasting for procedure. No other complaints. Objective Data Date Time Temp Pulse Resp B/P Pulse Ox O2 Delivery O2 Flow Rate FiO2 06/17/17 08:00 97.8 68 18 150/67 96 06/17/17 04:00 97.1 54 18 111/67 98 06/17/17 03:00 Room Air 06/17/17 00:00 97.1 84 18 104/71 97 06/16/17 23:00 Room Air 06/16/17 20:00 86 06/16/17 20:00 97.8 69 18 132/87 96 06/16/17 19:00 Room Air 06/16/17 17:57 2.00 06/16/17 16:00 98.5 85 18 123/78 99 06/16/17 15:00 Room Air 06/16/17 12:00 97.5 86 18 116/84 97 06/16/17 11:00 Room Air 06/17/17 06/17/17 06/17/17 07:00 15:00 23:00 Intake Total 0 ml Balance 0 ml Result Diagram: 06/16/17 0740 06/16/17 0740 Administered Medications Medications (Trade) Dose Ordered Sig/Ashok Route PRN Reason Start Time Stop Time Status Last Admin Dose Admin Sodium Chloride (NS Flush) 2 ml BID IV FLUSH 06/14/17 09:00 06/16/17 20:58 Apixaban (Eliquis) 5 mg BID PO 06/14/17 09:00 Hold 06/15/17 08:32 Bumetanide (Bumetanide) 1 mg DAILY PO 06/14/17 10:00 06/16/17 09:34 Metoprolol Tartrate (Lopressor) 100 mg Q12HR PO 06/14/17 21:00 06/16/17 20:58 Enalapril Maleate (Vasotec) 10 mg DAILY PO 06/15/17 09:00 06/16/17 09:33 Topiramate (Topamax) 100 mg DAILY PO 06/14/17 11:00 06/16/17 09:33 Tramadol HCl (Ultram) 50 mg Q6H PRN PO pain > 5 06/15/17 21:15 06/16/17 09:34 Objective Remarks GENERAL: Obese male upright in chair next to bed in nad. SKIN: Warm and dry. HEAD: Normocephalic. EYES: No injection or drainage. NECK: Supple, trachea midline. CARDIOVASCULAR: Regular rate and rhythm RESPIRATORY: Breath sounds equal bilaterally. No accessory muscle use. GASTROINTESTINAL: Abdomen soft, non-tender, nondistended. EXTREMITIES: No cyanosis NEUROLOGICAL: awake and alert, normal speech. Assessment/Plan Problem List: (1) Thrombocytopenia Status: Chronic Plan: --Patient has long-standing history of thrombocytopenia, dating back to 2003. --awaiting bone marrow biopsy in IR -- Mean platelet volume elevated (2) Atrial fibrillation Status: Chronic Plan: -- On Eliquis for anticoagulation -- Currently on hold for bone marrow biopsy Assessment 57-year-old male admitted with generalized weakness and nausea. Hematology consulted for thrombocytopenia Plan 1. bone marrow biopsy today 2. once discharged follow up in clinic to review bone marrow results--fs faxed to [facility]pr 3. ok to resume Eliquis this evening assuming no complications from bone marrow biopsy. Attending Statement Discussed above. Events noted. Continue to follow course. Gretta Robles Jun 17, 2017 09:59 Cindy Aguilera MD Jun 17, 2017 22:00
[2017-06-17 10:20] LABS: BICARBONATE 30.5 MEQ/L (21.0-32.0); POTASSIUM 3.9 MEQ/L (3.5-5.1)
[2017-06-17 11:29] LABS: AUTOMATED NEUTROPHIL # 4.2 TH/MM3 (1.8-7.7); BASOPHIL # 0.1 TH/MM3 (0-0.2); BASOPHIL % 1.1 % (0.0-2.0); EOSINOPHIL # 0.3 TH/MM3 (0-0.4); EOSINOPHIL % 4.1 % (0.0-4.0); LYMPH % 21.7 % (9.0-44.0); LYMPHOCYTE # 1.5 TH/MM3 (1.0-4.8); MEAN CELL VOLUME 89.8 FL (80.0-100.0); MEAN CORPUSCULAR HEMOGLOBIN 29.2 PG (27.0-34.0); MEAN CORPUSCULAR HGB CONC 32.5 % (32.0-36.0); MONO % 12.1 % (0.0-8.0); PLATELET COUNT 86 TH/MM3 (150-450); RED BLOOD COUNT 4.57 MIL/MM3 (4.50-5.90); RED CELL DISTRIBUTION WIDTH 14.3 % (11.6-17.2)
[2017-06-17 11:37] LABS: HEMO FLAGS AUTO DIFF
[2017-06-17 11:38] LABS: APTT (PATIENT) 30.4 SEC (24.3-30.1); INTERNATIONAL NORMALIZED RATIO 1.1 RATIO; PROTHROMBIN TIME - PATIENT 12.4 SEC (9.8-11.6)
[2017-06-17] MEDS ORDERED: LIDOCAINE HCL 1% 20 ML VIAL ONE (11:46)
[2017-06-17] MEDS ORDERED: MIDAZOLAM HCL 2 MG/2 ML VIAL ONE (11:57)
[2017-06-17] MEDS ORDERED: fentaNYL CITRATE 250 MCG/5 ML AMP ONE (11:57)
[2017-06-17] MEDS ORDERED: BUPIVACAINE HCL PF 0.75% 10 ML VIAL ONE (12:38)
[2017-06-17 12:48] LABS: PLATELET ESTIMATE SMEAR LOW (NORMAL); PLATELET MORPHOLOGY ENLARGED (NORMAL); SCAN/DIFF AUTO DIFF CONFIRMED
[2017-06-17] MEDS ORDERED: FLUMAZENIL 0.5 MG/5 ML VIAL ONE (12:57)
[2017-06-17] MEDS ORDERED: SUCCINYLCHOLINE CHLORIDE 200 MG/10 ML VIAL ONE (13:01)
[2017-06-17] MEDS ORDERED: ETOMIDATE 20 MG/10 ML VIAL ONE (13:01)
[2017-06-17] MEDS ORDERED: NALOXONE HCL 2 MG/2 ML VIAL ONE (13:05)
[2017-06-17] MEDS ORDERED: PHENYLEPHRINE HCL 10 MG/ML VIAL ONE (13:46)
--- NOTE | 2017-06-17 13:49 | HHI.PR ---
Addendum to Inpatient Note Additional Information ROLANDO called while patient was in CT. I spoke with Dr. Valentin, radiology. He had completed the bone marrow biopsy and the patient then stopped breathing. He was given Narcan. Airway was difficult to achieve. CODE BLUE was called. Dr. Grossman and Dr. Fatima responded to bedside and the patient was intubated. He was transferred to [facility]. I spoke with Dr. Grossman and Dr. Fatima regarding the patient's history. Transfer care to Critical Care service. Len Shah MD Jun 17, 2017 13:49
[2017-06-17 13:50] LABS: BONE MARROW PROCESSING COMPLETE; IRON STAIN DONE; JENNER GIEMSA STAIN DONE
--- NOTE | 2017-06-17 14:00 | PD.PROCEDR ---
Procedure Note Procedure Difficult intubation procedure note (Anterior Airway, Super Morbid Obesity) Patient intubated during cardiopulmonary arrest in the CT scan room. Multiple ER providers had tried to intubate prior to my attempt. GlideScope #4 blade was used. Airway was quiet anterior. In my first attempt, I could visualize glottic opening with a grade 2-3 view, but I was unable to pass the ET tube through the vocal cords. Patient was pulled up to the head of the bed, I reentered oropharynx with the GlideScope #4 blade again and obtained Grade 2 view. With manipulation of ETT and GlideScope stylet, I was able to pass ETT through the vocal cords. The patient was intubated with a 8.0 cuffed endotracheal tube. Tube placement was confirmed by visualization of the tube and balloon passing through the cords, capnometry and subsequent chest x-ray. Breath sounds were diminished on the Left chest initialy, once ETT was pulled back to 24, breath sounds equalized. No breath sounds over stomach. Niesha Fatima MD Jun 17, 2017 14:00
--- NOTE | 2017-06-17 14:12 | PD.CONS ---
[facility] Service Critical Care Medicine Consult Requested By Dr. Shah Reason for Consult Respiratory failure Primary Care Physician Roxi Gonzales MD History of Present Illness This is a 57-year-old -[place] male. Date of admission 06/14/2017. Date of consultation 06/17/2017. Past medical history includes poor dentition, seizure disorder NOS, atrial fibrillation, nonischemic cardiomyopathy ejection fraction 50-20%, chronic kidney disease stage III, hypertension, diabetes, morbid obesity and chronic venous insufficiency. Patient also is known history of chronic thrombocytopenia. Patient was admitted really on 06/14 with shortness of breath. Dr. Mccormack/cardiology was consulted. Poor candidate for AICD secondary to noncompliance. Recommended removal of all teeth outpatient with possible placement after that. Resume home medications. Echocardiogram revealed EF 20%. Dilated RV/LV. Moderate MR/TR. Pulmonary arterial pressures measures 50-60 mmHg. During this hospitalization, he was also symptomatically bradycardia his medicines have been adjusted see orders. Dr. Aguilera from hematology was consulted due to chronic trauma cytopenia since 2003. Today, a bone marrow biopsy was performed. Patient was documented received fentanyl and Versed during procedure. Received 2.4 mg Narcan post procedures patient was somnolent. ED physicians came to intubate patient received 20 mg etomidate, 150 mg succinylcholine. Patient was hypoxic. Please see intubation note and code note by Dr. Niesha Fatima. Patient is currently on Yosvany-Synephrine drip. Central line placed emergently due to hemodynamic instability. Arterial line placed by my colleague. Review of Systems ROS Limitations: Intubated Past Family Social History Allergies: Coded Allergies: [place] Oil (Verified Allergy, Unknown, THROW UP, 06/14/17) Past Medical History Poor dentition Seizure disorder NOS Chronic atrial fibrillation Nonischemic cardiac myopathy ejection fraction 15-20% Chronic systolic heart failure Chronic kidney disease stage III a Hypertension Chronic dermal cytopenia diabetes mellitus type 2 Morbid obesity BMI greater than 50 chronic venous insufficiency Coronary artery disease LAD 50% Past Surgical History Cardiac catheter ablation 2015 LAD 50%. Reported Medications Ipratropium Neb (Ipratropium [place]) 0.5 Mg/2.5 Ml Amp 0.5 Mg NEB Q6HR NEB PRN Bumetanide 1 Mg Tab 1 Mg PO DAILY Aspirin EC (Aspirin) 81 Mg Tabdr 81 Mg PO DAILY Eliquis (Apixaban) 5 Mg Tab 5 Mg PO BID Amiodarone (Amiodarone HCl) 200 Mg Tab 200 Mg PO DAILY Reported Topiramate 200 Mg Tab 200 Mg PO DAILY Topiramate 200 Mg Tab 200 Mg PO BID Doxazosin (Doxazosin Mesylate) 2 Mg Tab 2 Mg PO DAILY Metoprolol Tartrate 100 Mg Tab 50 Mg PO BID Diltiazem ER 24 HR 240 Mg Caper 240 Mg PO BID Topamax (Topiramate) 100 Mg Tab 200 Mg PO DAILY @ 1200 Enalapril (Enalapril Maleate) 20 Mg Tab 20 Mg PO DAILY Active Ordered Medications Reviewed in EMR Family History Mother is alive. Questionable leukemia. Father of [place] in 50s. Brother with diabetes. Social History Lifelong no tobacco, alcohol or IV drug use documented Physical Exam Vital Signs Vital Signs Date Time Temp Pulse Resp B/P Pulse Ox O2 Delivery O2 Flow Rate FiO2 06/17/17 13:40 100 100 06/17/17 12:00 98.4 80 18 132/89 99 06/17/17 08:00 69 06/17/17 08:00 96 Room Air 30 06/17/17 08:00 69 06/17/17 08:00 97.8 68 18 150/67 96 06/17/17 04:00 97.1 54 18 111/67 98 06/17/17 03:00 Room Air 06/17/17 00:00 97.1 84 18 104/71 97 06/16/17 23:00 Room Air 06/16/17 20:00 86 06/16/17 20:00 97.8 69 18 132/87 96 06/16/17 19:00 Room Air 06/16/17 17:57 2.00 06/16/17 16:00 98.5 85 18 123/78 99 06/16/17 15:00 Room Air Physical Exam GENERAL: 57-year-old male, critically ill currently orotracheally intubated SKIN: Cool and dry. Rash left phillips. HEAD: Atraumatic. Normocephalic. EYES: Pupils equal and round about 2 mEq bilaterally and slightly reactive.. No scleral icterus. No injection or drainage. ENT: No nasal bleeding or discharge. Mucous membranes pink and moist. NECK: Trachea midline. No JVD. CARDIOVASCULAR: Tachycardia, IR. S1, S2. No S4. 2/6 murmur left lower sternal border RESPIRATORY: Diminished breath sounds throughout. No wheezing appreciated. GASTROINTESTINAL: Abdomen soft, non-tender, obese. Hypoactive bowel sounds are not appreciated MUSCULOSKELETAL: Extremities with nonpitting lower extremity edema NEUROLOGICAL: Currently still not responsive on the ventilator. Status post Versed, fentanyl, etomidate and succinylcholine. We'll wait to wear off for proper examination. Laboratory Laboratory Tests Test 06/17/17 06/17/17 07:55 10:38 Sodium Level 139 Potassium Level 3.9 Chloride Level 103 Carbon Dioxide Level 30.5 Anion Gap 6 Blood Urea Nitrogen 28 Creatinine 1.85 Estimat Glomerular Filtration 46 Rate Random Glucose 60 Calcium Level 8.6 White Blood Count 7.0 Red Blood Count 4.57 Hemoglobin 13.3 Hematocrit 41.0 Mean Corpuscular Volume 89.8 Mean Corpuscular Hemoglobin 29.2 Mean Corpuscular Hemoglobin 32.5 Concent Red Cell Distribution Width 14.3 Platelet Count 86 Mean Platelet Volume 12.8 Neutrophils (%) (Auto) 61.0 Lymphocytes (%) (Auto) 21.7 Monocytes (%) (Auto) 12.1 Eosinophils (%) (Auto) 4.1 Basophils (%) (Auto) 1.1 Neutrophils # (Auto) 4.2 Lymphocytes # (Auto) 1.5 Monocytes # (Auto) 0.8 Eosinophils # (Auto) 0.3 Basophils # (Auto) 0.1 CBC Comment AUTO DIFF Differential Comment AUTO DIFF CONFIRMED Platelet Estimate LOW Platelet Morphology Comment ENLARGED Red Cell Morphology Comment NORMAL Prothrombin Time 12.4 Prothromb Time International 1.1 Ratio Activated Partial 30.4 Thromboplast Time Result Diagram: 06/17/17 [facility] 06/17/17 0755 Imaging Last Impressions Abdomen Ultrasound 06/16/17 0000 Signed Impressions: Service Date/Time: Friday, June 16, 2017 18:13 - CONCLUSION: Limited sonographic windows due to patient body habitus and bowel gas. Right renal cyst. Visualized portions of the abdomen otherwise within normal limits. Jose Bruno MD Lower Extremity Ultrasound 06/14/17 0000 Signed Impressions: Service Date/Time: Wednesday, June 14, 2017 08:15 - CONCLUSION: Normal examination. Kushal Camacho MD Assessment and Plan Assessment and Plan Neuro/Psych: Rule out anoxic encephalopathy Seizure disorder NOS Patient has been ordered for propofol/fentanyl drips for sedation/analgesia while intubated Goal of RA SS -2 Daily sedation vacation Head CT stabilized Currently on Topamax 100 mg by mouth daily for underlying seizure disorder CV: Nonischemic cardiomyopathy Ejection fraction 15-20% Chronic systolic heart failure Pulmonary hypertension History of chronic atrial fibrillation Hypertension Hospitalization with symptomatically bradycardia 2-D echocardiogram revealed EF 20%. Dilated LV/RV. Moderate MR/TR. Pulmonary arterial pressures 50-60 mmHg. Cardiac catheterization 2016 revealed 50% LAD stenosis otherwise unremarkable Currently holding home medications amiodarone 200 mg by mouth daily. Toprol 50 twice a day, doxazosin 2 mill grams daily and enalapril [address] Mccormack/cardiology Holding metoprolol and FABRICE inhibitor with ongoing hypotension Currently on Yosvany-Synephrine to maintain MAP greater than 65 Continue Bumex 1 mg daily Resp: Acute hypoxic respiratory failure Likely CHINO not on CPAP PRVC 18/600/ Ventilator bundle Albuterol/ipratropium aerosols every 4 hours with albuterol every 2 hours. Dyspnea Spontaneous breathing trials when clinically indicated Follow-up chest x-ray post intubation along with ABG. Adjust ventilator accordingly GI: Patient is currently nothing by mouth NG tube to be placed to LIWS Pantoprazole for GI prophylaxis Docusate sodium/senna twice a day for bowel regimen : Anderson catheter will be placed for accurate I's and O's in a critically ill patient Endo: Diabetes mellitus Sliding-scale insulin/moderate regimen with Accu-Cheks every 6 hours to maintain euglycemia Renal: Right renal cyst Chronic kidney disease stage III Creatinine currently 1.8. Monitor urine output Accurate I's and O's Heme: Chronic thrombocytopenia Chronic Apixaban use Status post bone marrow biopsy. Follow-up on results. Dr. Aguilera/hematology following Hold apixaban resume when clinically indicated ID: Monitor for infection MSK: 2 frontal teeth during intubation removed FEN: Replace electrolytes as clinically indicated. Access - Right IJ CVL day 1 - Right femoral artery line day #1 Prophylaxis - GI - pantoprazole- - DVT - SCD/holding pharmacological prophylaxis post code. Resuming clinically indicated Critical care time 40 minutes Code Status Full code Discussed Condition With Care plan discussed all questions answered. Dahlia Chisholmks mother at [phone] and Felipe Salazar/friend at [phone]. Answering machine. Message for mother to call back at [phone]. Aung Grossman MD Jun 17, 2017 14:12
[2017-06-17] MEDS ORDERED: TERBUTALINE INJ 1 MG/ML AMP SQ PRN ×2 (14:15)
[2017-06-17] MEDS ORDERED: BISACODYL 10 MG SUPP RECTAL PRN (14:15)
[2017-06-17] MEDS ORDERED: CHLORHEXIDINE GLUCONATE 2 % 1 PACK (2 CLOTHS) TOP PRN (14:15)
[2017-06-17] MEDS ORDERED: LACTULOSE SYRUP 20 GM/30 ML CUP PO PRN (14:15)
[2017-06-17] MEDS ORDERED: PHENYLEPHRINE INJ 160 MG in DEXTROSE 5% IN WATE 500 ML INJ 484 ML IV SCH ×2 (14:15)
[2017-06-17] MEDS ORDERED: SENNOSIDES 8.6 MG TAB PO PRN (14:15)
[2017-06-17] MEDS ORDERED: MISCELLANEOUS NURSING INFORMATION XX SCH (14:15)
[2017-06-17] MEDS ORDERED: SODIUM CHLORIDE 0.9% FLUSH 10 ML FLUSH IV FLUSH PRN (14:15)
[2017-06-17] MEDS ORDERED: DEXTROSE 50% IN WATER 50 ML VIAL(D50) IV PRN (14:15)
[2017-06-17] MEDS ORDERED: MAGNESIUM HYDROXIDE SUSP 30 ML CUP PO PRN (14:15)
[2017-06-17] MEDS ORDERED: GLUCAGON 1 MG/ML VIAL OTHER PRN (14:15)
[2017-06-17] MEDS ORDERED: MIDAZOLAM HCL 5 MG/ML VIAL (1 ML) ONE ×2 (14:19→14:28)
--- NOTE | 2017-06-17 14:24 | RADRPT ---
EXAM DATE/TIME: 06/17/2017 14:12 [facility] COMPARISON: CHEST SINGLE AP, April 02, 2017, 11:12. INDICATIONS : Endotracheal tube placement. MEDICAL HISTORY : None. SURGICAL HISTORY : None. ENCOUNTER: Initial ACUITY: 4 - 6 days PAIN SCORE: Non-responsive. LOCATION: chest FINDINGS: ET tube is in good position. There is no nasogastric tube. The heart is enlarged. Mild interstitia l edema is present. There is no pneumothorax. . CONCLUSION: ET in good position mild gastric distention. Rell Valentin MD FACR on June 17, 2017 at 14:22 Board Certified Radiologist. This report was verified electronically.
[2017-06-17] MEDS ORDERED: PHENYLEPHRINE 40 MG/D5W 496 ML ADMIX IV SCH ×2 (15:00)
[2017-06-17 15:07] LABS: BLOOD GAS BASE EXCESS -1.3 mmol/L (-2-2); BLOOD GAS CARBOXYHEMOGLOBIN 1.1 % (0-4); BLOOD GAS HCO3 24 mmol/L (22-26); BLOOD GAS METHEMOGLOBIN 0.9 % (0-2); BLOOD GAS O2 HGB SATURATION 98 % (90-100); BLOOD GAS OXYGEN CONTENT 17.3 Vol % (12.0-20.0); BLOOD GAS PCO2 47 mmHg (38-42); BLOOD GAS PO2 306 mmHg (61-120); BLOOD GAS TOTAL HGB 12.1 G/DL (12.0-16.0); CRITICAL VALUE NO; OXYGEN DEVICE VENTILATOR; TEMP CORR TO 98.6
[2017-06-17 15:08] LABS: DRAW SITE ART LINE; FIO2 100 %; STAT NO; VENT SETTINGS AC 16/600/PEEP10
[2017-06-17] MEDS: SODIUM CHLOR 0.9% 1000 ML INJ 1,000 ML IV SCH (15:24)
[2017-06-17] MEDS: PROPOFOL 1000 MG/100 ML INJ 100 ML IV SCH ×4 (15:24→23:19)
[2017-06-17] MEDS: fentaNYL DRIP 250 ML IV SCH (15:25)
--- NOTE | 2017-06-17 15:35 | PD.PROCEDR ---
Procedure Note Procedure CPR Note: During attempted difficult intubation, in the CT scan room patient lost pulse and went into PEA arrest. (I ran the code blue, please see code blue sheet also) . After loss of pulse was recognized immediate CPR was started, total time was approximately 5-7 min. 3 round of epinephrine, 1 amp of bicarb and 1 amp of atropine was given. After I placed the ET tube, patient regained a perfusing rhythm within a minute. Patient was then moved to the ICU and Dr. Grossman took over the care Niesha Fatima MD Jun 17, 2017 15:35
--- NOTE | 2017-06-17 15:52 | RADRPT ---
EXAM DATE/TIME: 06/17/2017 12:35 [facility] COMPARISON: No previous studies available for comparison. INDICATIONS : Thrombocytopenia. SEDATION TIME: 30 minutes BIOPSY SITE: iliac MEDICATION(S): 1.) 3 mg midazolam (Versed) IV 2.) 200 mcg fentanyl (Sublimaze) IV DEVICE(S): 1.) 11 gauge Bone marrow biopsy needle MEDICAL HISTORY : None. SURGICAL HISTORY : None. ENCOUNTER: Initial ACUITY: 1 day PAIN SCORE: 0/10 LOCATION: iliac A total of two core specimen(s) were obtained and sent to the laboratory for pathologic evaluation. PROCEDURE: 1. CT guided bone marrow biopsy. 2. Conscious sedation with continuous EKG and oximetry monitoring. 3. EKG and oximetry remained stable throughout the procedure. Prior to the procedure informed consent was obtained. Any appropriate prior imaging studies were rev iewed. Using automated exposure control and adjustment of the mA and/or kV according to patient size , radiation dose was kept as low as reasonably achievable to obtain optimal diagnostic quality images . DICOM format image data is available electronically for review and comparison. The site was prepped in a sterile fashion. Full sterile technique was used, including cap, mask, stephen rile gloves and gown and a large sterile sheet. Hand hygiene and 2% chlorhexidine and/or betadine/al cohol prep was utilized per protocol for cutaneous antisepsis. The skin and subcutaneous tissues wer e infiltrated with local anesthetic solution. Patient is large and was placed prone on the CT scanner. Rapid bone marrow biopsy and aspiration wer e performed under conscious sedation. At the conclusion of the procedure the patient became unresponsive, not responding to reversal and rodriguez pplemental oxygen. This progressed sedation care unit margin. This was rapid change in the patients clinical status or did not appear to be related to conscious se dation. CONCLUSION: Bone marrow aspiration and biopsy complicated by intubation and resuscitation. Pathology is pending. Rell Valentin MD FACR on June 17, 2017 at 15:46 Board Certified Radiologist. This report was verified electronically.
[2017-06-17 15:53] LABS: AUTOMATED NEUTROPHIL # 6.6 TH/MM3 (1.8-7.7); BASOPHIL % 0.5 % (0.0-2.0); EOSINOPHIL # 0.1 TH/MM3 (0-0.4); HEMATOCRIT 38.6 % (39.0-51.0); LYMPH % 10.9 % (9.0-44.0); LYMPHOCYTE # 0.9 TH/MM3 (1.0-4.8); MEAN CELL VOLUME 89.8 FL (80.0-100.0); MEAN CORPUSCULAR HEMOGLOBIN 29.1 PG (27.0-34.0); MEAN CORPUSCULAR HGB CONC 32.4 % (32.0-36.0); MONO % 8.1 % (0.0-8.0); NEUT % 79.5 % (16.0-70.0); PLATELET COUNT 90 TH/MM3 (150-450); RED CELL DISTRIBUTION WIDTH 14.1 % (11.6-17.2); WHITE BLOOD COUNT 8.3 TH/MM3 (4.0-11.0)
[2017-06-17 15:55] LABS: HEMO FLAGS DIFF FINAL
--- NOTE | 2017-06-17 15:55 | PD.PROCEDR ---
Procedure Note Procedure REASON FOR PROCEDURE s/p code blue, invasive blood pressure monitoring PROCEDURE PERFORMED Right femoral arterial catheter placement CONSENT Emergency procedure s/p cardiac arrest, shock DESCRIPTION OF THE PROCEDURE The patient was placed in supine, position. The right groin area was exposed and cleansed with ChloraPrep, times two. Sterile drape was used to cover the patient, with the site exposed, under sterile conditions including cap, face mask, sterile gown, and sterile gloves. The introducer needle was inserted with negative pressure in syringe and arterial flash was obtained. The guide wire was then advanced without any restriction and the needle was removed. Using Seldinger technique the 20 G arterial catheter was advanced over the guide wire. The guide wire was removed. Good arterial wave form noted after connecting to transducer. Antibiotic disc was placed around arterial line line at puncture site. The arterial line was secured to the skin with one interrupted 2.0 silk sutures. COMPLICATIONS: No apparent complications ESTIMATED BLOOD LOSS: Less than 3 cc. Niesha Fatima MD Jun 17, 2017 15:55
[2017-06-17 16:10] LABS: INTERNATIONAL NORMALIZED RATIO 1.2 RATIO; PROTHROMBIN TIME - PATIENT 12.9 SEC (9.8-11.6)
[2017-06-17 16:23] LABS: ALT (GPT) 37 U/L (12-78); ANION GAP 10 MEQ/L (5-15); AST (GOT) 30 U/L (15-37); BICARBONATE 26.6 MEQ/L (21.0-32.0); BLOOD UREA NITROGEN 28 MG/DL (7-18); CHLORIDE 105 MEQ/L (98-107); GLOMERULAR FILTRATION RATE 45 ML/MIN (>89); SODIUM (NA) 142 MEQ/L (136-145)
[2017-06-17 16:28] LABS: AMYLASE 144 U/L (25-115)
[2017-06-17 16:32] LABS: ALKALINE PHOSPHATASE 83 U/L (45-117); CREATINE KINASE 196 U/L (39-308); TOTAL BILIRUBIN ADULT 0.8 MG/DL (0.2-1.0)
[2017-06-17] MEDS: RESP: ALBUTEROL 2.5 MG/IPRATROPIUM 0.5 MG NEB (SCH) INH ×3 (16:51→23:33)
[2017-06-17] MEDS: INSULIN NovoLIN REGULAR SUPPLEMENTAL SCALE SQ SCH ×2 (18:00→23:49)
[2017-06-17] MEDS: DEXAMETHASONE SOD PHOS 4 MG/ML VIAL IV PUSH SCH ×2 (18:03→23:50)
[2017-06-17] MEDS: ARTIFICIAL TEARS OPTH SOLN 15 ML BTL EACH EYE SCH (18:04)
--- NOTE | 2017-06-17 18:20 | EKG ---
Date Performed: 06/17/2017 Time Performed: 16:02:12 PTAGE: 57 years EKG: ATRIAL FIBRILLATION WITH RAPID VENTRICULAR RESPONSE POSSIBLE RIGHT VENTRICULAR HYPERTROPHY ABNORMAL QRS-T ANGLE ABNORMAL ECG Compared to the PREVIOUS TRACING rate has increased PREVIOUS TRACIN06/14/2017 03.35 DOCTOR: Hardy Guerrero Interpretating Date/Time 06/17/2017 18:18:46
[2017-06-17] MEDS ORDERED: MIDAZOLAM HCL 5 MG/ML VIAL (1 ML) IV PUSH ONE (19:00)
[2017-06-17] MEDS: CHLORHEXIDINE 0.12% (ORAL KIT) 15 ML CUP MT SCH (20:20)
[2017-06-17] MEDS: APIXABAN 5 MG TABLET PO SCH (20:20)
[2017-06-17] MEDS: DOCUSATE SODIUM 50 MG/SENNA 8.6 MG TAB PO SCH (20:20)
[2017-06-17] MEDS: SODIUM CHLORIDE 0.9% FLUSH 10 ML FLUSH IV FLUSH SCH (20:20)
[2017-06-18] VITALS (20 sets, daily range): BP systolic 110–166; BP diastolic 66–94; PULSE 72–108; RESP 16; TEMP 95.2–98; O2SAT 98–100
--- NOTE | 2017-06-18 01:15 | RADRPT ---
EXAM DATE/TIME: 06/18/2017 00:48 [facility] COMPARISON: No previous studies available for comparison. INDICATIONS : Altered mental status, post code. RADIATION DOSE: 69.15 CTDIvol (mGy) ; Tabletop CT Head; Patient body habitus MEDICAL HISTORY : Cardiovascular disease. Myocardial infarction. Congestive heart failure.Hypertension. Seizure. SURGICAL HISTORY : None. ENCOUNTER: Initial ACUITY: 1 day PAIN SCALE: Non-responsive LOCATION: cranial TECHNIQUE: Multiple contiguous axial images were obtained of the head. Using automated exposure control and adj ustment of the mA and/or kV according to patient size, radiation dose was kept as low as reasonably a chievable to obtain optimal diagnostic quality images. DICOM format image data is available electro nically for review and comparison. FINDINGS: CEREBRUM: The ventricles are normal for age. No evidence of midline shift, mass lesion, hemorrhage or acute in farction. No extra-axial fluid collections are seen. POSTERIOR FOSSA: The cerebellum and brainstem are intact. The 4th ventricle is midline. The cerebellopontine angle i s unremarkable. EXTRACRANIAL: The visualized portion of the orbits is intact. SKULL: The calvaria is intact. No evidence of skull fracture. CONCLUSION: Negative exam. No evidence of intracranial hemorrhage. Ronni Capps MD on June 18, 2017 at 1:13 Board Certified Radiologist. This report was verified electronically.
[2017-06-18] MEDS: PROPOFOL 1000 MG/100 ML INJ 100 ML IV SCH ×6 (01:32→23:25)
[2017-06-18] MEDS: SODIUM CHLOR 0.9% 1000 ML INJ 1,000 ML IV SCH ×2 (01:34→13:50)
[2017-06-18] MEDS: fentaNYL DRIP 250 ML IV SCH ×2 (03:07→17:43)
[2017-06-18] MEDS: RESP: ALBUTEROL 2.5 MG/IPRATROPIUM 0.5 MG NEB (SCH) INH ×6 (03:32→23:22)
[2017-06-18 04:00] LABS: AUTOMATED NEUTROPHIL # 6.2 TH/MM3 (1.8-7.7); BASOPHIL % 0.3 % (0.0-2.0); HEMATOCRIT 40.5 % (39.0-51.0); LYMPH % 4.8 % (9.0-44.0); LYMPHOCYTE # 0.3 TH/MM3 (1.0-4.8); MEAN CORPUSCULAR HEMOGLOBIN 29.8 PG (27.0-34.0); MEAN CORPUSCULAR HGB CONC 33.5 % (32.0-36.0); MONO % 3.3 % (0.0-8.0); NEUT % 91.6 % (16.0-70.0); PLATELET COUNT 77 TH/MM3 (150-450); RED BLOOD COUNT 4.54 MIL/MM3 (4.50-5.90); RED CELL DISTRIBUTION WIDTH 14.5 % (11.6-17.2); WHITE BLOOD COUNT 6.8 TH/MM3 (4.0-11.0)
[2017-06-18] MEDS: CHLORHEXIDINE GLUCONATE 2 % 1 PACK (2 CLOTHS) TOP SCH (04:00)
[2017-06-18 04:01] LABS: HEMO FLAGS AUTO DIFF
[2017-06-18 04:08] LABS: APTT (PATIENT) 29.5 SEC (24.3-30.1); INTERNATIONAL NORMALIZED RATIO 1.1 RATIO; PROTHROMBIN TIME - PATIENT 12.1 SEC (9.8-11.6)
[2017-06-18 04:31] LABS: MAGNESIUM 2.1 MG/DL (1.5-2.5); POTASSIUM 3.6 MEQ/L (3.5-5.1)
[2017-06-18 04:42] LABS: PLATELET ESTIMATE SMEAR LOW (NORMAL); PLATELET MORPHOLOGY ENLARGED (NORMAL)
[2017-06-18 04:43] LABS: SCAN/DIFF AUTO DIFF CONFIRMED
--- NOTE | 2017-06-18 05:35 | RADRPT ---
EXAM DATE/TIME: 06/18/2017 04:50 [facility] COMPARISON: CHEST SINGLE AP, June 17, 2017, 14:12. INDICATIONS : Shortness of breath. MEDICAL HISTORY : None. SURGICAL HISTORY : None. ENCOUNTER: Subsequent ACUITY: 4 - 6 days PAIN SCORE: Non-responsive. LOCATION: Bilateral chest FINDINGS: Endotracheal tube tip well above the alexa. Gastric tube traverses [id number]. Right internal j ugular catheter tip projects over the origin of the superior vena cava. Patient is rotated towards t he right. There is consolidation in the right infrahilar region with air bronchograms. The left cassy g is clear. CONCLUSION: There is new consolidation right medial lower lung. Ronni Capps MD on June 18, 2017 at 5:33 Board Certified Radiologist. This report was verified electronically.
[2017-06-18] MEDS: INSULIN NovoLIN REGULAR SUPPLEMENTAL SCALE SQ SCH ×4 (06:00→23:26)
[2017-06-18] MEDS ORDERED: ICU - POTASSIUM CHLORIDE/AQUEOUS SOLN 40 MEQ/100 ML IVPB IV PRN (06:15)
[2017-06-18] MEDS ORDERED: ICU - CALL ORDERING PHYSICIAN PRN (06:15)
[2017-06-18] MEDS ORDERED: ICU - POTASSIUM PHOSPHATE MONOBASIC 500 MG TAB PO PRN (06:15)
[2017-06-18] MEDS ORDERED: ICU - MAGNESIUM SULFATE 4 GM/NS 100 ML IV PRN ×2 (06:15)
[2017-06-18] MEDS ORDERED: ICU - D/C ICU ELECTROLYTE ORDERS PRN (06:15)
[2017-06-18] MEDS ORDERED: ICU - SODIUM PHOSPHATE 30 MMOL/NS 250 ML IV PRN ×2 (06:15)
[2017-06-18] MEDS ORDERED: POTASSIUM CHLORIDE 25 MEQ EFFERVESCENT TAB PO PRN (06:15)
[2017-06-18] MEDS ORDERED: ICU - MAGNESIUM OXIDE 400 MG TAB PO PRN (06:15)
[2017-06-18] MEDS ORDERED: ICU - POTASSIUM CHLORIDE/AQUEOUS SOLN 20 MEQ/100 ML IVPB IV PRN (06:15)
[2017-06-18] MEDS ORDERED: ICU - MAGNESIUM SULFATE 2 GM/NS 100 ML IV PRN ×2 (06:15)
[2017-06-18] MEDS ORDERED: ICU - POTASSIUM PHOSPHATE 30 MMOL/NS 250 ML IV PRN ×2 (06:15)
[2017-06-18] MEDS: DEXAMETHASONE SOD PHOS 4 MG/ML VIAL IV PUSH SCH ×4 (06:23→23:25)
--- NOTE | 2017-06-18 07:49 | PD.CARD.PN ---
Subjective Subjective Remarks intubated Objective Medications Current Medications Medications (Trade) Dose Ordered Sig/Ashok Route Start Time Stop Time Status Last Admin (Narcan Inj) 0.4 mg UNSCH PRN IV 06/14/17 04:30 (Eliquis) 5 mg BID PO 06/14/17 09:00 06/15/17 08:32 (Bumetanide) 1 mg DAILY PO 06/14/17 10:00 06/16/17 09:34 (Lopressor) 100 mg Q12HR PO 06/14/17 21:00 Hold 06/16/17 20:58 (Vasotec) 10 mg DAILY PO 06/15/17 09:00 Hold 06/16/17 09:33 (Topamax) 100 mg DAILY PO 06/14/17 11:00 06/16/17 09:33 (Ultram) 50 mg Q6H PRN PO 06/15/17 21:15 Hold 06/16/17 09:34 (Tylenol) 650 mg Q6H PRN PO 06/15/17 21:30 Chlorhexidine Gluconate 15 ml 15 ml BID@08,20 MT 06/17/17 20:00 06/17/17 20:20 Propofol 100 ml @ 0 mls/hr TITRATE IV 06/17/17 14:15 06/18/17 03:06 Fentanyl Citrate 250 ml @ 0 mls/hr TITRATE IV 06/17/17 14:15 06/18/17 03:07 (Neosynephrine Inj/D5W 500 ml Inj) 500 ml @ 0 mls/hr TITRATE IV 06/17/17 14:15 Terbutaline Sulfate 1 mg 1 mg UNSCH PRN SQ 06/17/17 14:15 (NS 1000 ml Inj) 1,000 ml @ 84 mls/hr [id number] IV 06/17/17 14:00 06/18/17 01:34 (NS Flush) 2 ml UNSCH PRN IV FLUSH 06/17/17 14:15 (NS Flush) 2 ml BID IV FLUSH 06/17/17 21:00 06/17/17 20:20 (Protonix Inj) 40 mg DAILY IV 06/18/17 09:00 (Tears Naturale Opth Soln) 1 drop TID EACH EYE 06/17/17 18:00 8/14/17 18:04 (Zofran Inj) 4 mg Q6H PRN IV 06/17/17 14:15 Miscellaneous Information 1 Q361D XX 06/17/17 14:15 (Chlorhexidine 2% Cloth) 3 pack Taper DAILY@04 TOP 06/18/17 04:00 06/14/18 03:59 06/18/17 04:00 (Chlorhexidine 2% Cloth) 3 pack UNSCH PRN TOP 06/17/17 14:15 (Marilee-Colace) 1 tab BID PO 06/17/17 21:00 06/17/17 20:20 (Milk Of Magnesia Liq) 30 ml Q12H PRN PO 06/17/17 14:15 (Senokot) 17.2 mg Q12H PRN PO 06/17/17 14:15 (Dulcolax Supp) 10 mg DAILY PRN RECTAL 06/17/17 14:15 (Lactulose Liq) 30 ml DAILY PRN PO 06/17/17 14:15 (D50w (Vial) Inj) 50 ml UNSCH PRN IV 06/17/17 14:15 (Glucagon Inj) 1 mg UNSCH PRN OTHER 06/17/17 14:15 (NovoLIN R SUPPLEMENTAL SCALE) 1 Q6HR SQ 06/17/17 18:00 (Decadron Inj) 4 mg Q6HR IV PUSH 06/17/17 18:00 06/18/17 06:23 Miscellaneous Information D/C ICU ELECTROLYTE ORDERS... UNSCH PRN .XX 06/18/17 06:15 Miscellaneous Information ICU - CALL ORDERING PHYSIC... UNSCH PRN .XX 06/18/17 06:15 (KCl 40 Meq Premix Inj) 100 ml @ 25 mls/hr UNSCH PRN IV 06/18/17 06:15 Potassium Bicarb/ Potassium Chloride 50 meq 50 meq UNSCH PRN PO 06/18/17 06:15 Potassium Chloride 100 ml @ 50 mls/hr UNSCH PRN IV 06/18/17 06:15 Magnesium Sulfate 4 gm/Sodium Chloride 108 ml @ 54 mls/hr UNSCH PRN IV 06/18/17 06:15 (Magnesium Sulfate Inj/NS Inj) 104 ml @ 52 mls/hr UNSCH PRN IV 06/18/17 06:15 Magnesium Oxide 800 mg 800 mg UNSCH PRN PO 06/18/17 06:15 (Sodium Phosphate Inj/NS 250 ml Inj) 260 ml @ 43.333 mls/ hr UNSCH PRN IV 06/18/17 06:15 06/18/17 07:21 Potassium Phosphate 2000 mg 2,000 mg UNSCH PRN PO 06/18/17 06:15 (Potassium Phosphate Inj/NS 250 ml Inj) 260 ml @ 43.333 mls/ hr UNSCH PRN IV 06/18/17 06:15 Vital Signs / I&O Vital Signs Date Time Temp Pulse Resp B/P Pulse Ox O2 Delivery O2 Flow Rate FiO2 06/18/17 06:00 82 06/18/17 04:10 100 50 06/18/17 04:00 50 06/18/17 04:00 97.9 84 16 149/92 100 06/18/17 04:00 84 06/18/17 02:00 88 06/18/17 00:30 100 100 06/18/17 00:01 100 50 06/18/17 00:00 98.0 74 16 166/94 100 06/18/17 00:00 74 06/18/17 00:00 50 06/17/17 22:00 71 06/17/17 20:38 100 50 06/17/17 20:00 98.7 78 16 152/90 100 06/17/17 20:00 78 06/17/17 20:00 50 06/17/17 18:00 102 06/17/17 16:55 100 50 06/17/17 16:00 89 06/17/17 16:00 98.7 89 16 117/82 100 06/17/17 16:00 50 06/17/17 13:45 98 100 06/17/17 13:45 98 Ventilator 100 06/17/17 13:40 100 100 06/17/17 13:02 47 15.00 06/17/17 12:00 98.4 80 18 132/89 99 06/17/17 08:00 69 06/17/17 08:00 96 Room Air 30 06/17/17 08:00 69 06/17/17 08:00 97.8 68 18 150/67 96 I/O 8/14/17 8/14/17 8/14/17 8/15/17 8/15/17 8/15/17 07:00 15:00 23:00 07:00 15:00 23:00 Intake Total 0 ml 741 ml 850 ml Output Total 4110 ml 1690 ml Balance 0 ml -3369 ml -840 ml Intake Oral 0 ml IV Total 741 ml 850 ml Output Urine Total 3950 ml 1650 ml Gastric Drainage Total 160 ml 40 ml # Voids 1 # Bowel Movements 1 0 0 Physical Exam GENERAL: Well developed, well nourished. No acute distress on vent HEENT: Jugular venous pressure is normal. CHEST: Lungs clear to auscultation bilaterally, decreased in bases. Unlabored respiratory effort. CARDIAC: Regular rate and rhythm without S3, S4, or murmur. ABDOMEN: Soft, nontender, no hepatosplenomegaly. Bowel sounds present. EXTREMITIES: No clubbing, cyanosis, or edema. Laboratory Laboratory Tests Test 06/17/17 06/17/17 06/17/17 06/17/17 07:55 10:38 14:47 15:30 Sodium Level 139 MEQ/L 142 MEQ/L Potassium Level 3.9 MEQ/L 4.0 MEQ/L Chloride Level 103 MEQ/L 105 MEQ/L Carbon Dioxide Level 30.5 MEQ/L 26.6 MEQ/L Anion Gap 6 MEQ/L 10 MEQ/L Blood Urea Nitrogen 28 MG/DL 28 MG/DL Creatinine 1.85 MG/DL 1.89 MG/DL Estimat Glomerular Filtration 46 ML/MIN 45 ML/MIN Rate Random Glucose 60 MG/DL 127 MG/DL Calcium Level 8.6 MG/DL 8.3 MG/DL White Blood Count 7.0 TH/MM3 8.3 TH/MM3 Red Blood Count 4.57 MIL/MM3 4.30 MIL/MM3 Hemoglobin 13.3 GM/DL 12.5 GM/DL Hematocrit 41.0 % 38.6 % Mean Corpuscular Volume 89.8 FL 89.8 FL Mean Corpuscular Hemoglobin 29.2 PG 29.1 PG Mean Corpuscular Hemoglobin 32.5 % 32.4 % Concent Red Cell Distribution Width 14.3 % 14.1 % Platelet Count 86 TH/MM3 90 TH/MM3 Mean Platelet Volume 12.8 FL 12.5 FL Neutrophils (%) (Auto) 61.0 % 79.5 % Lymphocytes (%) (Auto) 21.7 % 10.9 % Monocytes (%) (Auto) 12.1 % 8.1 % Eosinophils (%) (Auto) 4.1 % 1.0 % Basophils (%) (Auto) 1.1 % 0.5 % Neutrophils # (Auto) 4.2 TH/MM3 6.6 TH/MM3 Lymphocytes # (Auto) 1.5 TH/MM3 0.9 TH/MM3 Monocytes # (Auto) 0.8 TH/MM3 0.7 TH/MM3 Eosinophils # (Auto) 0.3 TH/MM3 0.1 TH/MM3 Basophils # (Auto) 0.1 TH/MM3 0.0 TH/MM3 CBC Comment AUTO DIFF DIFF FINAL Differential Comment AUTO DIFF CONFIRMED Platelet Estimate LOW Platelet Morphology Comment ENLARGED Red Cell Morphology Comment NORMAL Prothrombin Time 12.4 SEC 12.9 SEC Prothromb Time International 1.1 RATIO 1.2 RATIO Ratio Activated Partial 30.4 SEC 28.0 SEC Thromboplast Time Blood Gas Puncture Site ART LINE Blood Gas Patient Temperature 98.6 Blood Gas HCO3 24 mmol/L Blood Gas Base Excess -1.3 mmol/L Blood Gas Oxygen Saturation 98 % Arterial Blood pH 7.33 Arterial Blood Partial 47 mmHg Pressure CO2 Arterial Blood Partial 306 mmHg Pressure O2 Arterial Blood Oxygen Content 17.3 Vol % Arterial Blood 1.1 % Carboxyhemoglobin Arterial Blood Methemoglobin 0.9 % Blood Gas Hemoglobin 12.1 G/DL Oxygen Delivery Device VENTILATOR Blood Gas Ventilator Setting AC 16/600/PEEP10 Blood Gas Inspired Oxygen 100 % Fibrinogen 318 mg/dL Lactic Acid Level 1.5 mmol/L Phosphorus Level 3.8 MG/DL Magnesium Level 2.0 MG/DL Total Bilirubin 0.8 MG/DL Aspartate Amino Transf 30 U/L (AST/SGOT) Alanine Aminotransferase 37 U/L (ALT/SGPT) Alkaline Phosphatase 83 U/L Total Creatine Kinase 196 U/L Troponin I 0.29 NG/ML Total Protein 5.8 GM/DL Albumin 3.2 GM/DL Amylase Level 144 U/L Lipase 195 U/L Thyroid Stimulating Hormone 3.900 uIU/ML 3rd Gen Test 06/17/17 06/18/17 21:10 03:40 Troponin I 0.49 NG/ML 0.21 NG/ML White Blood Count 6.8 TH/MM3 Red Blood Count 4.54 MIL/MM3 Hemoglobin 13.6 GM/DL Hematocrit 40.5 % Mean Corpuscular Volume 89.0 FL Mean Corpuscular Hemoglobin 29.8 PG Mean Corpuscular Hemoglobin 33.5 % Concent Red Cell Distribution Width 14.5 % Platelet Count 77 TH/MM3 Mean Platelet Volume 12.1 FL Neutrophils (%) (Auto) 91.6 % Lymphocytes (%) (Auto) 4.8 % Monocytes (%) (Auto) 3.3 % Eosinophils (%) (Auto) 0.0 % Basophils (%) (Auto) 0.3 % Neutrophils # (Auto) 6.2 TH/MM3 Lymphocytes # (Auto) 0.3 TH/MM3 Monocytes # (Auto) 0.2 TH/MM3 Eosinophils # (Auto) 0.0 TH/MM3 Basophils # (Auto) 0.0 TH/MM3 CBC Comment AUTO DIFF Differential Comment AUTO DIFF CONFIRMED Platelet Estimate LOW Platelet Morphology Comment ENLARGED Prothrombin Time 12.1 SEC Prothromb Time International 1.1 RATIO Ratio Activated Partial 29.5 SEC Thromboplast Time Sodium Level 145 MEQ/L Potassium Level 3.6 MEQ/L Chloride Level 109 MEQ/L Carbon Dioxide Level 26.0 MEQ/L Anion Gap 10 MEQ/L Blood Urea Nitrogen 23 MG/DL Creatinine 1.75 MG/DL Estimat Glomerular Filtration 49 ML/MIN Rate Random Glucose 155 MG/DL Lactic Acid Level 2.4 mmol/L Calcium Level 8.9 MG/DL Phosphorus Level 2.3 MG/DL Magnesium Level 2.1 MG/DL Assessment and Plan Assessment and Plan AF - stable rate, back on eliquis Resp Failure - on vent per CCM after bone marrow biopsy Acute on chronic systolic failure- better - continue present meds -no spironolactone with Cr 1.9 Cardiomyopathy- ECHO EF <20% - on BB and FABRICE, diuretic Thrombocytopenia- CKD- Cr 1.9 Jamila Mccormack MD Jun 18, 2017 07:49
[2017-06-18] MEDS: CHLORHEXIDINE 0.12% (ORAL KIT) 15 ML CUP MT SCH ×2 (08:00→20:00)
[2017-06-18] MEDS: APIXABAN 5 MG TABLET PO SCH ×2 (08:20→21:01)
[2017-06-18] MEDS: BUMETANIDE 1 MG TAB PO SCH (08:20)
[2017-06-18] MEDS: DOCUSATE SODIUM 50 MG/SENNA 8.6 MG TAB PO SCH ×2 (08:20→21:01)
[2017-06-18] MEDS ORDERED: NITROGLYCERIN 2% OINT 1 GM PACKET TOPICAL PRN (08:45)
[2017-06-18] MEDS: ARTIFICIAL TEARS OPTH SOLN 15 ML BTL EACH EYE SCH ×3 (09:00→17:35)
[2017-06-18] MEDS: SODIUM CHLORIDE 0.9% FLUSH 10 ML FLUSH IV FLUSH SCH ×2 (09:00→21:00)
[2017-06-18] MEDS: TOPIRAMATE 100 MG TAB PO SCH (09:00)
[2017-06-18] MEDS: PANTOPRAZOLE SODIUM 40 MG VIAL IV SCH (09:00)
--- NOTE | 2017-06-18 09:17 | HHI.CCPN ---
Subjective Remarks/Hospital Course This is a 57-year-old -[place] male. Date of admission 06/14/2017. Date of consultation 06/17/2017. Past medical history includes poor dentition, seizure disorder NOS, atrial fibrillation, nonischemic cardiomyopathy ejection fraction 50-20%, chronic kidney disease stage III, hypertension, diabetes, morbid obesity and chronic venous insufficiency. Patient also is known history of chronic thrombocytopenia. Patient was admitted really on 06/14 with shortness of breath. Dr. Mccormack/cardiology was consulted. Poor candidate for AICD secondary to noncompliance. Recommended removal of all teeth outpatient with possible placement after that. Resume home medications. Echocardiogram revealed EF 20%. Dilated RV/LV. Moderate MR/TR. Pulmonary arterial pressures measures 50-60 mmHg. During this hospitalization, he was also symptomatically bradycardia his medicines have been adjusted see orders. Dr. Aguilera from hematology was consulted due to chronic trauma cytopenia since 2003. Today, a bone marrow biopsy was performed. Patient was documented received fentanyl and Versed during procedure. Received 2.4 mg Narcan post procedures patient was somnolent. ED physicians came to intubate patient received 20 mg etomidate, 150 mg succinylcholine. Patient was hypoxic. Please see intubation note and code note by Dr. Niesha Fatima. Patient is currently on Yosvany-Synephrine drip. Central line placed emergently due to hemodynamic instability. Arterial line placed by my colleague. Subjective 06/18: Arousable to voice and moving all [address] head no acute findings. Troponin peaked at 0.49. Creatinine actually improved. We'll attempt spontaneous breathing trials today. Added when necessary's for blood pressure. Objective Vital Signs Date Time Temp Pulse Resp B/P Pulse Ox O2 Delivery O2 Flow Rate FiO2 06/18/17 07:49 100 50 06/18/17 07:49 Ventilator 06/18/17 06:00 82 06/18/17 04:00 97.9 16 149/92 06/17/17 13:02 15.00 Intake and Output 06/17/17 06/17/17 06/18/17 08:00 16:00 00:00 Intake Total 0 ml 741 ml Output Total 4110 ml Balance 0 ml -3369 ml Result Diagram: 06/18/17 0340 06/18/17 0340 Imaging Last Impressions Chest X-Ray 06/18/17 0600 Signed Impressions: Service Date/Time: Sunday, June 18, 2017 04:50 - CONCLUSION: There is new consolidation right medial lower lung. Ronni Capps MD Head CT 06/18/17 0000 Signed Impressions: Service Date/Time: Sunday, June 18, 2017 00:48 - CONCLUSION: Negative exam. No evidence of intracranial hemorrhage. Ronni Capps MD Bone Biopsy CT 06/17/17 0000 Signed Impressions: Service Date/Time: Saturday, June 17, 2017 12:35 - CONCLUSION: Bone marrow aspiration and biopsy complicated by intubation and resuscitation. Pathology is pending. Rell Valentin MD FACR Abdomen Ultrasound 06/16/17 0000 Signed Impressions: Service Date/Time: Friday, June 16, 2017 18:13 - CONCLUSION: Limited sonographic windows due to patient body habitus and bowel gas. Right renal cyst. Visualized portions of the abdomen otherwise within normal limits. Jose Bruno MD Lower Extremity Ultrasound 06/14/17 0000 Signed Impressions: Service Date/Time: Wednesday, June 14, 2017 08:15 - CONCLUSION: Normal examination. Kushal Camacho MD Objective Remarks GENERAL: 57-year-old male, critically ill currently orotracheally intubated SKIN: Cool and dry. Rash left phillips. HEAD: Noted front 2 teeth missing status post intubation. Normocephalic. EYES: Pupils equal and round about 2 mm bilaterally and slightly reactive.. No scleral icterus. No injection or drainage. ENT: No nasal bleeding or discharge. Mucous membranes pink and moist. NECK: Trachea midline. No JVD. CARDIOVASCULAR: IRR. S1, S2. No S4. 2/6 murmur left lower sternal border RESPIRATORY: Diminished breath sounds throughout. No wheezing appreciated. GASTROINTESTINAL: Abdomen soft, non-tender, obese. Hypoactive bowel sounds are not appreciated MUSCULOSKELETAL: Extremities with nonpitting lower extremity edema NEUROLOGICAL: Arousable on ventilator. Opens eyes to voice. Moves all 4 extremity spontaneous. Currently not following commands. Procedures None A/P Assessment and Plan Neuro/Psych: Rule out anoxic encephalopathy Seizure disorder NOS Patient has been ordered for propofol currently at 10 mcg/kg per minute/ fentanyl drips at 50 mcg an hour for sedation/analgesia while intubated Goal of RA SS -2 Daily sedation vacation Head CT stabilized Currently on Topamax 100 mg by mouth daily for underlying seizure disorder CV: Nonischemic cardiomyopathy Ejection fraction 15-20% Chronic systolic heart failure Pulmonary hypertension History of chronic atrial fibrillation Hypertension Hospitalization with symptomatically bradycardia 2-D echocardiogram revealed EF 20%. Dilated LV/RV. Moderate MR/TR. Pulmonary arterial pressures 50-60 mmHg. Cardiac catheterization 2016 revealed 50% LAD stenosis otherwise unremarkable Currently holding home medications amiodarone 200 mg by mouth daily. Toprol 50 twice a day, doxazosin 2 mill grams daily and enalapril [address] Mccormack/cardiology Holding metoprolol and FABRICE inhibitor with ongoing hypotension Restarted Toprol 50 mg twice a day. As needed labetalol, hydralazine and Nitropaste ordered Continue Bumex 1 mg daily Troponin peaked at 0.49. Currently downward trending. Resp: Acute hypoxic respiratory failure Likely CHINO not on CPAP PRVC 18/600/1/5/40 Ventilator bundle Albuterol/ipratropium aerosols every 4 hours with albuterol every 2 hours. Dyspnea Spontaneous breathing trials when clinically indicated Chest x-ray right middle lobe infiltrates likely aspiration GI: Patient is currently nothing by mouth per start tube feeding if not extubated today. Glucerna 1.5 goal 60 cc an hour. NG tube to be placed to LIWS Pantoprazole for GI prophylaxis Docusate sodium/senna twice a day for bowel regimen : Anderson catheter will be placed for accurate I's and O's in a critically ill patient Endo: Diabetes mellitus Sliding-scale insulin/moderate regimen with Accu-Cheks every 6 hours to maintain euglycemia Renal: Right renal cyst Chronic kidney disease stage III Creatinine currently 17. Monitor urine output Accurate I's and O's Heme: Chronic thrombocytopenia Chronic Apixaban use Status post bone marrow biopsy. Follow-up on results. Dr. Aguilera/hematology following Hold apixaban resume when clinically indicated ID: Monitor for infection Check sputum today Start empirically on cefepime/Flagyl appropriate renal dosaging. MSK: 2 frontal teeth during intubation removed FEN: Replace electrolytes as clinically indicated. Access - Right IJ CVL day 2 - Right femoral artery line day #2 Prophylaxis - GI - pantoprazole- - DVT - SCD/holding pharmacological prophylaxis post code. Resuming clinically indicated Critical care time 30 minutes Aung Grossman MD Jun 18, 2017 09:17
--- NOTE | 2017-06-18 09:20 | PD.PROCEDR ---
Central Line Procedure REASON FOR PROCEDURE Central venous access PROCEDURE PERFORMED Central line placement: Right IJ CVL CONSENT Informed consent for procedure was not obtained and considered emergent due to hemodynamic instability. The risks and benefits of the procedure were discussed to include but limited to bleeding, clot formation, infection, and even . ANESTHESIA Local injection of 1% Lidocaine DESCRIPTION OF THE PROCEDURE The patient was placed in supine, mild Trendelenburg position. The area was exposed and cleansed with ChloraPrep, times two. Large sterile drape was used to cover the patient, with the site exposed, under sterile conditions including cap, face mask, sterile gown, and sterile gloves. On single attempt, the introducer needle was inserted with negative pressure in syringe and venous flash was obtained. The guide wire was then advanced without any restriction and the needle was removed. The dilator was used without any complications. Using Seldinger technique the triple-lumen catheter was advanced over the guide wire to a depth of 16 centimeters. The guide wire was removed. All ports were aspirated with dark venous blood return and flushed easily with sterile saline. All ports were capped. Antibiotic disc was placed around central line at puncture site. The central line was secured to the skin with two interrupted 2.0 silk sutures. The area was bandaged with sterile see-through central line bandage. RADIOLOGICAL DATA Ultrasound guidance was used to locate the right internal jugular vein. Doppler /color flow was used to confirm venous flow. COMPLICATIONS: No apparent complications ESTIMATED BLOOD LOSS: Less than 1 cc. Aung Grossman MD Jun 18, 2017 09:20
[2017-06-18] MEDS: metroNIDAZOLE 500 MG INJ 100 ML IV SCH ×2 (10:15→17:36)
[2017-06-18] MEDS: CEFEPIME INJ 2,000 MG in SODIUM CHLORIDE 0.9% INJ 100 ML IV SCH ×2 (10:15→22:27)
--- NOTE | 2017-06-18 11:26 | PD.ONC.PN ---
Subjective Subjective Remarks Afebrile overnight. Patient intubated, sedated. Objective Data Date Time Temp Pulse Resp B/P Pulse Ox O2 Delivery O2 Flow Rate FiO2 06/18/17 10:00 72 06/18/17 08:00 85 06/18/17 08:00 97.8 76 16 152/79 99 06/18/17 08:00 50 06/18/17 07:49 100 50 06/18/17 07:49 100 Ventilator 50 06/18/17 06:00 82 06/18/17 04:10 100 50 06/18/17 04:00 50 06/18/17 04:00 97.9 84 16 149/92 100 06/18/17 04:00 84 06/18/17 02:00 88 06/18/17 00:30 100 100 06/18/17 00:01 100 50 06/18/17 00:00 98.0 74 16 166/94 100 06/18/17 00:00 74 06/18/17 00:00 50 06/17/17 22:00 71 06/17/17 20:38 100 50 06/17/17 20:00 98.7 78 16 152/90 100 06/17/17 20:00 78 06/17/17 20:00 50 06/17/17 18:00 102 06/17/17 16:55 100 50 06/17/17 16:00 89 06/17/17 16:00 98.7 89 16 117/82 100 06/17/17 16:00 50 06/17/17 13:45 98 100 06/17/17 13:45 98 Ventilator 100 06/17/17 13:40 100 100 06/17/17 13:02 47 15.00 06/17/17 12:00 98.4 80 18 132/89 99 06/18/17 06/18/17 06/18/17 07:00 15:00 23:00 Intake Total 850 ml Output Total 1690 ml Balance -840 ml Result Diagram: 06/18/17 0340 06/18/17 0340 Laboratory Results Laboratory Tests Test 06/17/17 06/17/17 06/17/17 06/18/17 14:47 15:30 21:10 03:40 Blood Gas Puncture Site ART LINE Blood Gas Patient Temperature 98.6 Blood Gas HCO3 24 mmol/L Blood Gas Base Excess -1.3 mmol/L Blood Gas Oxygen Saturation 98 % Arterial Blood pH 7.33 Arterial Blood Partial 47 mmHg Pressure CO2 Arterial Blood Partial 306 mmHg Pressure O2 Arterial Blood Oxygen Content 17.3 Vol % Arterial Blood 1.1 % Carboxyhemoglobin Arterial Blood Methemoglobin 0.9 % Blood Gas Hemoglobin 12.1 G/DL Oxygen Delivery Device VENTILATOR Blood Gas Ventilator Setting AC 16/600/PEEP10 Blood Gas Inspired Oxygen 100 % White Blood Count 8.3 TH/MM3 6.8 TH/MM3 Red Blood Count 4.30 MIL/MM3 4.54 MIL/MM3 Hemoglobin 12.5 GM/DL 13.6 GM/DL Hematocrit 38.6 % 40.5 % Mean Corpuscular Volume 89.8 FL 89.0 FL Mean Corpuscular Hemoglobin 29.1 PG 29.8 PG Mean Corpuscular Hemoglobin 32.4 % 33.5 % Concent Red Cell Distribution Width 14.1 % 14.5 % Platelet Count 90 TH/MM3 77 TH/MM3 Mean Platelet Volume 12.5 FL 12.1 FL Neutrophils (%) (Auto) 79.5 % 91.6 % Lymphocytes (%) (Auto) 10.9 % 4.8 % Monocytes (%) (Auto) 8.1 % 3.3 % Eosinophils (%) (Auto) 1.0 % 0.0 % Basophils (%) (Auto) 0.5 % 0.3 % Neutrophils # (Auto) 6.6 TH/MM3 6.2 TH/MM3 Lymphocytes # (Auto) 0.9 TH/MM3 0.3 TH/MM3 Monocytes # (Auto) 0.7 TH/MM3 0.2 TH/MM3 Eosinophils # (Auto) 0.1 TH/MM3 0.0 TH/MM3 Basophils # (Auto) 0.0 TH/MM3 0.0 TH/MM3 CBC Comment DIFF FINAL AUTO DIFF Differential Comment AUTO DIFF CONFIRMED Prothrombin Time 12.9 SEC 12.1 SEC Prothromb Time International 1.2 RATIO 1.1 RATIO Ratio Activated Partial 28.0 SEC 29.5 SEC Thromboplast Time Fibrinogen 318 mg/dL Sodium Level 142 MEQ/L 145 MEQ/L Potassium Level 4.0 MEQ/L 3.6 MEQ/L Chloride Level 105 MEQ/L 109 MEQ/L Carbon Dioxide Level 26.6 MEQ/L 26.0 MEQ/L Anion Gap 10 MEQ/L 10 MEQ/L Blood Urea Nitrogen 28 MG/DL 23 MG/DL Creatinine 1.89 MG/DL 1.75 MG/DL Estimat Glomerular Filtration 45 ML/MIN 49 ML/MIN Rate Random Glucose 127 MG/DL 155 MG/DL Lactic Acid Level 1.5 mmol/L 2.4 mmol/L Calcium Level 8.3 MG/DL 8.9 MG/DL Phosphorus Level 3.8 MG/DL 2.3 MG/DL Magnesium Level 2.0 MG/DL 2.1 MG/DL Total Bilirubin 0.8 MG/DL Aspartate Amino Transf 30 U/L (AST/SGOT) Alanine Aminotransferase 37 U/L (ALT/SGPT) Alkaline Phosphatase 83 U/L Total Creatine Kinase 196 U/L Troponin I 0.29 NG/ML 0.49 NG/ML 0.21 NG/ML Total Protein 5.8 GM/DL Albumin 3.2 GM/DL Amylase Level 144 U/L Lipase 195 U/L Thyroid Stimulating Hormone 3.900 uIU/ML 3rd Gen Platelet Estimate LOW Platelet Morphology Comment ENLARGED Imaging Studies Last 24 hours Impressions Chest X-Ray 06/18/17 0600 Signed Impressions: Service Date/Time: Sunday, June 18, 2017 04:50 - CONCLUSION: There is new consolidation right medial lower lung. Ronni Capps MD Head CT 06/18/17 0000 Signed Impressions: Service Date/Time: Sunday, June 18, 2017 00:48 - CONCLUSION: Negative exam. No evidence of intracranial hemorrhage. Ronni Capps MD Administered Medications Medications (Trade) Dose Ordered Sig/Ashok Route PRN Reason Start Time Stop Time Status Last Admin Dose Admin Apixaban (Eliquis) 5 mg BID PO 06/14/17 09:00 06/18/17 08:20 Bumetanide (Bumetanide) 1 mg DAILY PO 06/14/17 10:00 06/18/17 08:20 Metoprolol Tartrate (Lopressor) 100 mg Q12HR PO 06/14/17 21:00 Hold 06/16/17 20:58 Enalapril Maleate (Vasotec) 10 mg DAILY PO 06/15/17 09:00 Hold 06/16/17 09:33 Topiramate (Topamax) 100 mg DAILY PO 06/14/17 11:00 06/18/17 09:00 Tramadol HCl (Ultram) 50 mg Q6H PRN PO pain > 5 8/12/17 21:15 Hold 06/16/17 09:34 Chlorhexidine Gluconate 15 ml 15 ml BID@08,20 MT 06/17/17 20:00 06/18/17 08:00 Propofol 100 ml @ 0 mls/hr TITRATE IV 06/17/17 14:15 06/18/17 03:06 Fentanyl Citrate 250 ml @ 0 mls/hr TITRATE IV 06/17/17 14:15 06/18/17 03:07 Sodium Chloride (NS 1000 ml Inj) 1,000 ml @ 84 mls/hr [id number] IV 06/17/17 14:00 06/18/17 01:34 Sodium Chloride (NS Flush) 2 ml BID IV FLUSH 06/17/17 21:00 06/17/17 20:20 Pantoprazole Sodium (Protonix Inj) 40 mg DAILY IV 06/18/17 09:00 06/18/17 09:00 Artificial Tears (Tears Naturale Opth Soln) 1 drop TID EACH EYE 06/17/17 18:00 06/18/17 09:00 Chlorhexidine Gluconate (Chlorhexidine 2% Cloth) 3 pack Taper DAILY@04 TOP 06/18/17 04:00 06/14/18 03:59 06/18/17 04:00 Senna/Docusate Sodium (Marilee-Colace) 1 tab BID PO 06/17/17 21:00 06/18/17 08:20 Dexamethasone Sodium Phosphate 4 mg 4 mg Q6HR IV PUSH 06/17/17 18:00 06/18/17 06:23 Cefepime HCl 2000 mg/Sodium Chloride 100 ml @ 200 mls/hr Q12H IV 06/18/17 10:00 06/18/17 10:15 Metronidazole (Flagyl 500 Mg Inj) 100 ml @ 100 mls/hr Q8H IV 06/18/17 11:00 06/18/17 10:15 Objective Remarks GENERAL: Obese male, intubated, sedated, supine in bed. SKIN: Warm and dry. HEAD: Normocephalic. EYES: No scleral icterus. No injection or drainage. NECK: Supple, trachea midline. CARDIOVASCULAR: Regular rate and rhythm RESPIRATORY: anterior lopez clear. on mechanical ventilation via OT intubation GASTROINTESTINAL: Abdomen nondistended. EXTREMITIES: No cyanosis NEUROLOGICAL: intubated, sedated Assessment/Plan Problem List: (1) Thrombocytopenia Status: Chronic Plan: --Patient has long-standing history of thrombocytopenia, dating back to 2003. --s/p bone marrow biopsy in , 06/17. awaiting pathology -- Mean platelet volume elevated (2) Atrial fibrillation Status: Chronic Plan: -- Eliquis for anticoagulation Assessment 57-year-old male admitted with generalized weakness and nausea. Hematology consulted for thrombocytopenia. After patient's bone marrow biopsy on 06/17, he became hypoxic and was intubated. Now in ISC on mechanical ventilation. Plan 1. monitor CBC 2. resume Eliquis 3. await pathology from bone marrow biopsy Attending Statement The exam, history, and the medical decision-making described in the above note were completed with the assistance of the mid-level provider. I reviewed and agree with the findings presented. I attest that I had a [id number] encounter with the patient on the same day, and personally performed and documented my assessment and findings in the medical record. Pt seen and examined. Events noted. Discussed w/ radiologist. Continue support. Slight decline in platelet. MPV elevated. BM bx results still pending. Gretta Robles Jun 18, 2017 11:26 Cindy Aguilera MD Jun 18, 2017 20:00
[2017-06-18] MEDS: METOPROLOL TARTRATE 50 MG TAB PO SCH ×2 (11:27→21:01)
[2017-06-18] MEDS ORDERED: POTASSIUM PHOSPHATE INJ 30 MMOL in SODIUM CHLOR 0.9% 250 ML INJ 250 ML IV ONE (12:00)
[2017-06-18] MEDS: LABETALOL HCL 100 MG/20 ML VIAL IV PUSH PRN (18:36)
[2017-06-18] MEDS: hydrALAZINE HCL 20 MG/ML VIAL IV PUSH PRN (18:41)
[2017-06-19] VITALS (17 sets, daily range): BP systolic 101–145; BP diastolic 61–77; PULSE 84–108; RESP 16; TEMP 95.9–99; O2SAT 95–97
[2017-06-19] MEDS: SODIUM CHLOR 0.9% 1000 ML INJ 1,000 ML IV SCH ×2 (01:50→13:15)
[2017-06-19] MEDS: metroNIDAZOLE 500 MG INJ 100 ML IV SCH ×3 (03:19→18:44)
[2017-06-19] MEDS: PROPOFOL 1000 MG/100 ML INJ 100 ML IV SCH ×5 (03:19→21:12)
[2017-06-19] MEDS ORDERED: SODIUM CHLORID 0.9% 500 ML INJ 500 ML IV ONE (03:30)
[2017-06-19] MEDS ORDERED: DIGOXIN 0.5 MG/2 ML VIAL IV PUSH ONE (03:30)
[2017-06-19] MEDS: RESP: ALBUTEROL 2.5 MG/IPRATROPIUM 0.5 MG NEB (SCH) INH ×6 (03:38→23:37)
[2017-06-19] MEDS: CHLORHEXIDINE GLUCONATE 2 % 1 PACK (2 CLOTHS) TOP SCH (04:00)
--- NOTE | 2017-06-19 05:06 | RADRPT ---
EXAM DATE/TIME: 06/19/2017 03:20 [facility] COMPARISON: CHEST SINGLE AP, June 18, 2017, 4:50. INDICATIONS : Shortness of breath. MEDICAL HISTORY : None. SURGICAL HISTORY : None. ENCOUNTER: Subsequent ACUITY: 4 - 6 days PAIN SCORE: Non-responsive. LOCATION: Bilateral chest FINDINGS: Increasing infiltrates in both lung bases, now with consolidation loss of delineation of both hemidia phragms. Heart is enlarged, similar to prior. ET tube in good position. Right internal jugular cat heter tip projects of the origin of the superior vena cava. Catheter to traverse the [id number]. CONCLUSION: Increasing bibasilar infiltrates, now with consolidation. Ronni Capps MD on June 19, 2017 at 5:03 Board Certified Radiologist. This report was verified electronically.
[2017-06-19] MEDS: DEXAMETHASONE SOD PHOS 4 MG/ML VIAL IV PUSH SCH ×3 (05:37→17:47)
[2017-06-19] MEDS: INSULIN NovoLIN REGULAR SUPPLEMENTAL SCALE SQ SCH ×3 (06:00→18:00)
[2017-06-19 06:14] LABS: AUTOMATED NEUTROPHIL # 10.6 TH/MM3 (1.8-7.7); BASOPHIL % 0.3 % (0.0-2.0); HEMATOCRIT 39.7 % (39.0-51.0); LYMPH % 3.5 % (9.0-44.0); LYMPHOCYTE # 0.4 TH/MM3 (1.0-4.8); MEAN CELL VOLUME 90.3 FL (80.0-100.0); MEAN CORPUSCULAR HEMOGLOBIN 28.8 PG (27.0-34.0); MONO % 4.1 % (0.0-8.0); NEUT % 92.1 % (16.0-70.0); PLATELET COUNT 83 TH/MM3 (150-450); RED BLOOD COUNT 4.39 MIL/MM3 (4.50-5.90); RED CELL DISTRIBUTION WIDTH 14.9 % (11.6-17.2); WHITE BLOOD COUNT 11.5 TH/MM3 (4.0-11.0)
[2017-06-19 06:18] LABS: HEMO FLAGS AUTO DIFF
[2017-06-19 06:33] LABS: BICARBONATE 27.5 MEQ/L (21.0-32.0); MAGNESIUM 2.2 MG/DL (1.5-2.5); POTASSIUM 3.8 MEQ/L (3.5-5.1)
[2017-06-19] MEDS: CHLORHEXIDINE 0.12% (ORAL KIT) 15 ML CUP MT SCH ×2 (08:00→19:44)
--- NOTE | 2017-06-19 08:16 | HHI.CCPN ---
Subjective Remarks/Hospital Course This is a 57-year-old -[place] male. Date of admission 06/14/2017. Date of consultation 06/17/2017. Past medical history includes poor dentition, seizure disorder NOS, atrial fibrillation, nonischemic cardiomyopathy ejection fraction 50-20%, chronic kidney disease stage III, hypertension, diabetes, morbid obesity and chronic venous insufficiency. Patient also is known history of chronic thrombocytopenia. Patient was admitted really on 06/14 with shortness of breath[address] Dr[address] Mccormack/cardiology was consulted. Poor candidate for AICD secondary to noncompliance. Recommended removal of all teeth outpatient with possible placement after that. Resume home medications. Echocardiogram revealed EF 20%. Dilated RV/LV. Moderate MR/TR. Pulmonary arterial pressures measures 50-60 mmHg. During this hospitalization, he was also symptomatically bradycardia his medicines have been adjusted see orders. Dr. Aguilera from hematology was consulted due to chronic trauma cytopenia since 2003. Today, a bone marrow biopsy was performed. Patient was documented received fentanyl and Versed during procedure. Received 2.4 mg Narcan post procedures patient was somnolent. ED physicians came to intubate patient received 20 mg etomidate, 150 mg succinylcholine. Patient was hypoxic. Please see intubation note and code note by Dr. Niesha Fatima. Patient is currently on Yosvany-Synephrine drip. Central line placed emergently due to hemodynamic instability. Arterial line placed by my colleague. Subjective 06/18: Arousable to voice and moving all [address] head no acute findings. Troponin peaked at 0.49. Creatinine actually improved. We'll attempt spontaneous breathing trials today. Added when necessary's for blood pressure. 06/19: Peripheral perfusion acceptable. Heart rate better controlled. Start spontaneous breathing trials. Objective Vital Signs Date Time Temp Pulse Resp B/P Pulse Ox O2 Delivery O2 Flow Rate FiO2 06/19/17 07:26 97 35 06/19/17 06:00 100 06/19/17 04:00 99.0 16 116/62 06/18/17 07:49 Ventilator 06/17/17 13:02 15.00 Intake and Output 06/18/17 06/18/17 06/19/17 08:00 16:00 00:00 Intake Total 850 ml 1210 ml 1169 ml Output Total 1690 ml 1300 ml 800 ml Balance -840 ml -90 ml 369 ml Result Diagram: 06/19/17 0550 06/19/17 0550 Imaging Last Impressions Chest X-Ray 06/18/17 0600 Signed Impressions: Service Date/Time: Sunday, June 18, 2017 04:50 - CONCLUSION: There is new consolidation right medial lower lung. Ronni Capps MD Head CT 06/18/17 0000 Signed Impressions: Service Date/Time: Sunday, June 18, 2017 00:48 - CONCLUSION: Negative exam. No evidence of intracranial hemorrhage. Ronni Capps MD Bone Biopsy CT 06/17/17 0000 Signed Impressions: Service Date/Time: Saturday, June 17, 2017 12:35 - CONCLUSION: Bone marrow aspiration and biopsy complicated by intubation and resuscitation. Pathology is pending. Rell Valentin MD FACR Abdomen Ultrasound 06/16/17 0000 Signed Impressions: Service Date/Time: Friday, June 16, 2017 18:13 - CONCLUSION: Limited sonographic windows due to patient body habitus and bowel gas. Right renal cyst. Visualized portions of the abdomen otherwise within normal limits. Jose Bruno MD Lower Extremity Ultrasound 06/14/17 0000 Signed Impressions: Service Date/Time: Wednesday, June 14, 2017 08:15 - CONCLUSION: Normal examination. Kushal Camacho MD Objective Remarks GENERAL: 57-year-old male, critically ill currently orotracheally intubated SKIN: Cool and dry. Rash left phillips. HEAD: Noted front 2 teeth missing status post intubation. Normocephalic. EYES: Pupils equal and round about 2 mm bilaterally and slightly reactive.. No scleral icterus. No injection or drainage. ENT: No nasal bleeding or discharge. Mucous membranes pink and moist. NECK: Trachea midline. No JVD. CARDIOVASCULAR: Irreg irreg. S1, S2. + JVD. RESPIRATORY: Diminished breath sounds throughout. No wheezing appreciated. GASTROINTESTINAL: Abdomen soft, non-tender, obese. Hypoactive bowel sounds are not appreciated MUSCULOSKELETAL: Extremities with nonpitting lower extremity edema NEUROLOGICAL: Arousable on ventilator. Opens eyes to voice. Moves all 4 extremity spontaneous. Does not track or follow commands. Procedures None A/P Assessment and Plan Neuro/Psych: Rule out anoxic encephalopathy Seizure disorder NOS Patient has been ordered for propofol currently at 10 mcg/kg per minute/ fentanyl drips at 50 mcg an hour for sedation/analgesia while intubated Goal of RA SS -2 Daily sedation vacation Head CT stabilized Currently on Topamax 100 mg by mouth daily for underlying seizure disorder CV: Nonischemic cardiomyopathy Ejection fraction 15-20% Chronic systolic heart failure Pulmonary hypertension History of chronic atrial fibrillation Hypertension Hospitalization with symptomatically bradycardia 2-D echocardiogram revealed EF 20%. Dilated LV/RV. Moderate MR/TR. Pulmonary arterial pressures 50-60 mmHg. Cardiac catheterization 2015 revealed 50% LAD stenosis otherwise unremarkable Currently holding home medications amiodarone 200 mg by mouth daily. Toprol 50 twice a day, doxazosin 2 mill grams daily and enalapril [address] Mccormack/cardiology Holding metoprolol and FABRICE inhibitor with ongoing hypotension Restarted Toprol 50 mg twice a day. As needed labetalol, hydralazine and Nitropaste ordered Continue Bumex 1 mg daily Troponin peaked at 0.49. Currently downward trending. Resp: Acute hypoxic respiratory failure Likely CHINO not on CPAP PRVC 18//11/08/39 Ventilator bundle Albuterol/ipratropium aerosols every 4 hours with albuterol every 2 hours. Dyspnea Spontaneous breathing trials when clinically indicated Chest x-ray right middle lobe infiltrates likely aspiration Start SBTs 06/19 GI: Patient is currently nothing by mouth per start tube feeding if not extubated today. Glucerna 1.5 goal 60 cc an hour. NG tube to be placed to LIWS Pantoprazole for GI prophylaxis Docusate sodium/senna twice a day for bowel regimen : Anderson catheter will be placed for accurate I's and O's in a critically ill patient Endo: Diabetes mellitus Sliding-scale insulin/moderate regimen with Accu-Cheks every 6 hours to maintain euglycemia Renal: Right renal cyst Chronic kidney disease stage III Creatinine currently 17. Monitor urine output Accurate I's and O's Heme: Chronic thrombocytopenia Chronic Apixaban use Status post bone marrow biopsy. Follow-up on results. Dr. Aguilera/hematology following Hold apixaban resume when clinically indicated ID: Monitor for infection Check sputum today Start empirically on cefepime/Flagyl appropriate renal dosaging. MSK: 2 frontal teeth during intubation removed FEN: Replace electrolytes as clinically indicated. Access - Right IJ CVL day 3 - Right femoral artery line day #3 Prophylaxis - GI - pantoprazole- - DVT - SCD/holding pharmacological prophylaxis post code. Resuming clinically indicated Overall impression: Required mechanical ventilation after procedure. Start breathing trials, try to keep relatively well diureses. Sohail Ma MD Jun 19, 2017 08:16
[2017-06-19] MEDS: METOPROLOL TARTRATE 50 MG TAB PO SCH ×2 (08:58→20:17)
[2017-06-19] MEDS: BUMETANIDE 1 MG TAB PO SCH (08:58)
[2017-06-19] MEDS: APIXABAN 5 MG TABLET PO SCH ×2 (08:58→20:22)
[2017-06-19] MEDS: DOCUSATE SODIUM 50 MG/SENNA 8.6 MG TAB PO SCH ×2 (08:58→20:17)
[2017-06-19] MEDS: PANTOPRAZOLE SODIUM 40 MG VIAL IV SCH (08:58)
[2017-06-19] MEDS: TOPIRAMATE 100 MG TAB PO SCH (08:58)
[2017-06-19] MEDS: ARTIFICIAL TEARS OPTH SOLN 15 ML BTL EACH EYE SCH ×3 (08:59→17:53)
[2017-06-19] MEDS: SODIUM CHLORIDE 0.9% FLUSH 10 ML FLUSH IV FLUSH SCH ×2 (08:59→19:44)
[2017-06-19] MEDS: CEFEPIME INJ 2,000 MG in SODIUM CHLORIDE 0.9% INJ 100 ML IV SCH ×2 (08:59→21:11)
[2017-06-19 09:38] LABS: PLATELET ESTIMATE SMEAR LOW (NORMAL); PLATELET MORPHOLOGY ENLARGED (NORMAL); SCAN/DIFF AUTO DIFF CONFIRMED
[2017-06-19] MEDS: fentaNYL DRIP 250 ML IV SCH (10:22)
--- NOTE | 2017-06-19 15:05 | EKG ---
Date Performed: 06/19/2017 Time Performed: 02:37:16 PTAGE: 57 years EKG: Atrial fibrillation with rapid ventricular response Extensive T wave changes are nonspecifi c Abnormal ECG PREVIOUS TRACING : 06/17/2017 16.02 Compared to prior tracing no significant change DOCTOR: Bola Wheat Interpretating Date/Time 06/19/2017 15:05:02
--- NOTE | 2017-06-19 16:50 | PD.CARD.PN ---
Subjective Subjective Remarks Pt sedated on vent Objective Medications Current Medications Medications (Trade) Dose Ordered Sig/Ashok Route Start Time Stop Time Status Last Admin (Narcan Inj) 0.4 mg UNSCH PRN IV 06/14/17 04:30 (Eliquis) 5 mg BID PO 06/14/17 09:00 06/19/17 08:58 (Bumetanide) 1 mg DAILY PO 06/14/17 10:00 06/19/17 08:58 (Lopressor) 100 mg Q12HR PO 06/14/17 21:00 Hold 06/16/17 20:58 (Vasotec) 10 mg DAILY PO 06/15/17 09:00 Hold 06/16/17 09:33 (Topamax) 100 mg DAILY PO 06/14/17 11:00 06/19/17 08:58 (Ultram) 50 mg Q6H PRN PO 06/15/17 21:15 Hold 06/16/17 09:34 (Tylenol) 650 mg Q6H PRN PO 06/15/17 21:30 Chlorhexidine Gluconate 15 ml 15 ml BID@08,20 MT 06/17/17 20:00 06/19/17 08:00 Propofol 100 ml @ 0 mls/hr TITRATE IV 06/17/17 14:15 06/19/17 11:38 Fentanyl Citrate 250 ml @ 0 mls/hr TITRATE IV 06/17/17 14:15 06/19/17 10:22 (Neosynephrine Inj/D5W 500 ml Inj) 500 ml @ 0 mls/hr TITRATE IV 06/17/17 14:15 06/19/17 01:28 Terbutaline Sulfate 1 mg 1 mg UNSCH PRN SQ 06/17/17 14:15 (NS 1000 ml Inj) 1,000 ml @ 84 mls/hr [id number] IV 06/17/17 14:00 06/19/17 13:15 (NS Flush) 2 ml UNSCH PRN IV FLUSH 06/17/17 14:15 (NS Flush) 2 ml BID IV FLUSH 06/17/17 21:00 06/19/17 08:59 (Protonix Inj) 40 mg DAILY IV 06/18/17 09:00 06/19/17 08:58 (Tears Naturale Opth Soln) 1 drop TID EACH EYE 06/17/17 18:00 06/19/17 13:00 (Zofran Inj) 4 mg Q6H PRN IV 06/17/17 14:15 Miscellaneous Information 1 [id number] XX 06/17/17 14:15 (Chlorhexidine 2% Cloth) 3 pack Taper DAILY@04 TOP 06/18/17 04:00 06/14/18 03:59 06/19/17 04:00 (Chlorhexidine 2% Cloth) 3 pack UNSCH PRN TOP 06/17/17 14:15 (Marilee-Colace) 1 tab BID PO 06/17/17 21:00 06/19/17 08:58 (Milk Of Magnesia Liq) 30 ml Q12H PRN PO 06/17/17 14:15 (Senokot) 17.2 mg Q12H PRN PO 06/17/17 14:15 (Dulcolax Supp) 10 mg DAILY PRN RECTAL 06/17/17 14:15 (Lactulose Liq) 30 ml DAILY PRN PO 06/17/17 14:15 (D50w (Vial) Inj) 50 ml UNSCH PRN IV 06/17/17 14:15 (Glucagon Inj) 1 mg UNSCH PRN OTHER 06/17/17 14:15 (NovoLIN R SUPPLEMENTAL SCALE) 1 Q6HR SQ 06/17/17 18:00 (Decadron Inj) 4 mg Q6HR IV PUSH 06/17/17 18:00 06/19/17 11:37 (Trandate Inj) 10 mg Q1HR PRN IV PUSH 06/18/17 08:45 06/18/17 18:36 (Apresoline Inj) 10 mg Q1HR PRN IV PUSH 06/18/17 08:45 06/18/17 18:41 Nitroglycerin 2 inch 2 inch Q6HR PRN TOPICAL 06/18/17 08:45 06/18/17 13:00 Cefepime HCl 2000 mg/Sodium Chloride 100 ml @ 200 mls/hr Q12H IV 06/18/17 10:00 06/19/17 08:59 (Flagyl 500 Mg Inj) 100 ml @ 100 mls/hr Q8H IV 06/18/17 11:00 06/19/17 10:22 (Lopressor) 50 mg Q12HR PO 06/18/17 09:15 06/19/17 08:58 Vital Signs / I&O Vital Signs Date Time Temp Pulse Resp B/P Pulse Ox O2 Delivery O2 Flow Rate FiO2 06/19/17 16:03 90 06/19/17 16:03 40 06/19/17 16:03 98.8 96 16 144/77 95 06/19/17 15:25 96 35 06/19/17 14:20 91 06/19/17 14:20 40 06/19/17 12:43 98.6 86 16 145/77 97 06/19/17 11:10 97 35 06/19/17 08:00 89 06/19/17 08:00 98.8 89 16 123/63 97 06/19/17 08:00 40 06/19/17 07:26 97 35 06/19/17 06:00 100 06/19/17 04:41 97 35 06/19/17 04:00 94 06/19/17 04:00 99.0 94 16 116/62 97 06/19/17 04:00 35 06/19/17 02:00 102 06/19/17 01:00 97 35 06/19/17 00:00 108 06/19/17 00:00 35 06/19/17 00:00 95.9 108 16 101/61 97 06/18/17 22:45 95.2 06/18/17 22:00 100 06/18/17 22:00 100 40 06/18/17 20:00 108 16 110/66 99 Automatic Cuff 06/18/17 20:00 102 06/18/17 20:00 40 06/18/17 19:26 99 40 06/18/17 18:00 80 I/O 06/18/17 06/18/17 06/18/17 06/19/17 06/19/17 06/19/17 07:00 15:00 23:00 07:00 15:00 23:00 Intake Total 850 ml 1210 ml 1169 ml 1706 ml 1213 ml Output Total 1690 ml 1300 ml 800 ml 260 ml 650 ml Balance -840 ml -90 ml 369 ml 1446 ml 563 ml Oral Supplement 229 ml IV Total 850 ml 1210 ml 1049 ml 1597 ml 984 ml Tube Feeding 109 ml Tube Irrigant 120 ml Output Urine Total 1650 ml 1200 ml 700 ml 260 ml 650 ml Gastric Drainage Total 40 ml 100 ml 100 ml # Bowel Movements 0 0 0 Physical Exam GENERAL: Well developed, well nourished. No acute distress on vent HEENT: Jugular venous pressure is normal. CHEST: Lungs clear to auscultation bilaterally, decreased in bases. Unlabored respiratory effort. CARDIAC: Regular rate and rhythm without S3, S4, or murmur. ABDOMEN: Soft, EXTREMITIES: No clubbing, Laboratory Laboratory Tests Test 06/19/17 05:50 White Blood Count 11.5 TH/MM3 Red Blood Count 4.39 MIL/MM3 Hemoglobin 12.7 GM/DL Hematocrit 39.7 % Mean Corpuscular Volume 90.3 FL Mean Corpuscular Hemoglobin 28.8 PG Mean Corpuscular Hemoglobin 32.0 % Concent Red Cell Distribution Width 14.9 % Platelet Count 83 TH/MM3 Mean Platelet Volume 12.2 FL Neutrophils (%) (Auto) 92.1 % Lymphocytes (%) (Auto) 3.5 % Monocytes (%) (Auto) 4.1 % Eosinophils (%) (Auto) 0.0 % Basophils (%) (Auto) 0.3 % Neutrophils # (Auto) 10.6 TH/MM3 Lymphocytes # (Auto) 0.4 TH/MM3 Monocytes # (Auto) 0.5 TH/MM3 Eosinophils # (Auto) 0.0 TH/MM3 Basophils # (Auto) 0.0 TH/MM3 CBC Comment AUTO DIFF Differential Comment AUTO DIFF CONFIRMED Platelet Estimate LOW Platelet Morphology Comment ENLARGED Sodium Level 146 MEQ/L Potassium Level 3.8 MEQ/L Chloride Level 113 MEQ/L Carbon Dioxide Level 27.5 MEQ/L Anion Gap 6 MEQ/L Blood Urea Nitrogen 19 MG/DL Creatinine 1.54 MG/DL Estimat Glomerular Filtration 57 ML/MIN Rate Random Glucose 123 MG/DL Calcium Level 7.9 MG/DL Phosphorus Level 3.3 MG/DL Magnesium Level 2.2 MG/DL Imaging Last 72 hours Impressions Chest X-Ray 06/19/17 0600 Signed Impressions: Service Date/Time: Monday, June 19, 2017 03:20 - CONCLUSION: Increasing bibasilar infiltrates, now with consolidation. Ronni Capps MD Chest X-Ray 06/18/17 0600 Signed Impressions: Service Date/Time: Sunday, June 18, 2017 04:50 - CONCLUSION: There is new consolidation right medial lower lung. Ronni Capps MD Head CT 06/18/17 0000 Signed Impressions: Service Date/Time: Sunday, June 18, 2017 00:48 - CONCLUSION: Negative exam. No evidence of intracranial hemorrhage. Ronni Capps MD Chest X-Ray 06/17/17 0000 Signed Impressions: Service Date/Time: Saturday, June 17, 2017 14:12 - CONCLUSION: ET in good position mild gastric distention. Rell Valentin MD FACR Bone Biopsy CT 06/17/17 0000 Signed Impressions: Service Date/Time: Saturday, June 17, 2017 12:35 - CONCLUSION: Bone marrow aspiration and biopsy complicated by intubation and resuscitation. Pathology is pending. Rell Valentin MD FACR Assessment and Plan Assessment and Plan AF - stable rate, back on eliquis Resp Failure - on vent per CCM after bone marrow biopsy Acute on chronic systolic failure- Cardiomyopathy- ECHO EF <20% - BP too low for BB or FABRICE Thrombocytopenia- CKD- Jamila Mccormack MD Jun 19, 2017 16:50 Jamila Mccormack MD Jun 19, 2017 16:50
--- NOTE | 2017-06-19 16:57 | PD.ONC.PN ---
Subjective Subjective Remarks Patient afebrile No bleeding Remains intubated and sedated Objective Data Date Time Temp Pulse Resp B/P Pulse Ox O2 Delivery O2 Flow Rate FiO2 06/19/17 16:03 90 06/19/17 16:03 40 06/19/17 16:03 98.8 96 16 144/77 95 06/19/17 15:25 96 35 06/19/17 14:20 91 06/19/17 14:20 40 06/19/17 12:43 98.6 86 16 145/77 97 06/19/17 11:10 97 35 06/19/17 08:00 89 06/19/17 08:00 98.8 89 16 123/63 97 06/19/17 08:00 40 06/19/17 07:26 97 35 06/19/17 06:00 100 06/19/17 04:41 97 35 06/19/17 04:00 94 06/19/17 04:00 99.0 94 16 116/62 97 06/19/17 04:00 35 06/19/17 02:00 102 06/19/17 01:00 97 35 06/19/17 00:00 108 06/19/17 00:00 35 06/19/17 00:00 95.9 108 16 101/61 97 06/18/17 22:45 95.2 06/18/17 22:00 100 06/18/17 22:00 100 40 06/18/17 20:00 108 16 110/66 99 Automatic Cuff 06/18/17 20:00 102 06/18/17 20:00 40 06/18/17 19:26 99 40 06/18/17 18:00 80 06/19/17 06/19/17 06/19/17 07:00 15:00 23:00 Intake Total 1706 ml 1213 ml Output Total 260 ml 650 ml Balance 1446 ml 563 ml Result Diagram: 06/19/17 0550 06/19/17 0550 Laboratory Results Laboratory Tests Test 06/19/17 05:50 White Blood Count 11.5 TH/MM3 Red Blood Count 4.39 MIL/MM3 Hemoglobin 12.7 GM/DL Hematocrit 39.7 % Mean Corpuscular Volume 90.3 FL Mean Corpuscular Hemoglobin 28.8 PG Mean Corpuscular Hemoglobin 32.0 % Concent Red Cell Distribution Width 14.9 % Platelet Count 83 TH/MM3 Mean Platelet Volume 12.2 FL Neutrophils (%) (Auto) 92.1 % Lymphocytes (%) (Auto) 3.5 % Monocytes (%) (Auto) 4.1 % Eosinophils (%) (Auto) 0.0 % Basophils (%) (Auto) 0.3 % Neutrophils # (Auto) 10.6 TH/MM3 Lymphocytes # (Auto) 0.4 TH/MM3 Monocytes # (Auto) 0.5 TH/MM3 Eosinophils # (Auto) 0.0 TH/MM3 Basophils # (Auto) 0.0 TH/MM3 CBC Comment AUTO DIFF Differential Comment AUTO DIFF CONFIRMED Platelet Estimate LOW Platelet Morphology Comment ENLARGED Sodium Level 146 MEQ/L Potassium Level 3.8 MEQ/L Chloride Level 113 MEQ/L Carbon Dioxide Level 27.5 MEQ/L Anion Gap 6 MEQ/L Blood Urea Nitrogen 19 MG/DL Creatinine 1.54 MG/DL Estimat Glomerular Filtration 57 ML/MIN Rate Random Glucose 123 MG/DL Calcium Level 7.9 MG/DL Phosphorus Level 3.3 MG/DL Magnesium Level 2.2 MG/DL Imaging Studies Last 24 hours Impressions Chest X-Ray 06/19/17 0600 Signed Impressions: Service Date/Time: Monday, June 19, 2017 03:20 - CONCLUSION: Increasing bibasilar infiltrates, now with consolidation. Ronni Capps MD Administered Medications Medications (Trade) Dose Ordered Sig/Ashok Route PRN Reason Start Time Stop Time Status Last Admin Dose Admin Apixaban (Eliquis) 5 mg BID PO 06/14/17 09:00 06/19/17 08:58 Bumetanide (Bumetanide) 1 mg DAILY PO 06/14/17 10:00 06/19/17 08:58 Metoprolol Tartrate (Lopressor) 100 mg Q12HR PO 06/14/17 21:00 Hold 06/16/17 20:58 Enalapril Maleate (Vasotec) 10 mg DAILY PO 06/15/17 09:00 Hold 06/16/17 09:33 Topiramate (Topamax) 100 mg DAILY PO 06/14/17 11:00 06/19/17 08:58 Tramadol HCl (Ultram) 50 mg Q6H PRN PO pain > 5 06/15/17 21:15 Hold 06/16/17 09:34 Chlorhexidine Gluconate 15 ml 15 ml BID@08,20 MT 06/17/17 20:00 06/19/17 08:00 Propofol 100 ml @ 0 mls/hr TITRATE IV 06/17/17 14:15 06/19/17 11:38 Fentanyl Citrate 250 ml @ 0 mls/hr TITRATE IV 06/17/17 14:15 06/19/17 10:22 Phenylephrine HCl 160 mg/Dextrose 500 ml @ 0 mls/hr TITRATE IV 06/17/17 14:15 06/19/17 01:28 Sodium Chloride (NS 1000 ml Inj) 1,000 ml @ 84 mls/hr [id number] IV 06/17/17 14:00 06/19/17 13:15 Sodium Chloride (NS Flush) 2 ml BID IV FLUSH 06/17/17 21:00 06/19/17 08:59 Pantoprazole Sodium (Protonix Inj) 40 mg DAILY IV 06/18/17 09:00 06/19/17 08:58 Artificial Tears (Tears Naturale Opth Soln) 1 drop TID EACH EYE 06/17/17 18:00 06/19/17 13:00 Chlorhexidine Gluconate (Chlorhexidine 2% Cloth) 3 pack Taper DAILY@04 TOP 06/18/17 04:00 06/14/18 03:59 06/19/17 04:00 Senna/Docusate Sodium (Marilee-Colace) 1 tab BID PO 06/17/17 21:00 06/19/17 08:58 Dexamethasone Sodium Phosphate (Decadron Inj) 4 mg Q6HR IV PUSH 06/17/17 18:00 06/19/17 11:37 Labetalol HCl (Trandate Inj) 10 mg Q1HR PRN IV PUSH SBP>160, DBP>90, HR>65 06/18/17 08:45 06/18/17 18:36 Hydralazine HCl (Apresoline Inj) 10 mg Q1HR PRN IV PUSH SBP>160, DBP>90 06/18/17 08:45 06/18/17 18:41 Nitroglycerin 2 inch 2 inch Q6HR PRN TOPICAL SBP>160, DBP>90 06/18/17 08:45 06/18/17 13:00 Cefepime HCl 2000 mg/Sodium Chloride 100 ml @ 200 mls/hr Q12H IV 8/15/17 10:00 06/19/17 08:59 Metronidazole (Flagyl 500 Mg Inj) 100 ml @ 100 mls/hr Q8H IV 06/18/17 11:00 06/19/17 10:22 Metoprolol Tartrate (Lopressor) 50 mg Q12HR PO 06/18/17 09:15 06/19/17 08:58 Objective Remarks GENERAL: Obese male, intubated, sedated, supine in bed. SKIN: Warm and dry. No oozing from lines HEAD: Normocephalic. EYES: No scleral icterus. No injection or drainage. NECK: Supple, trachea midline. CARDIOVASCULAR: Regular rate and rhythm RESPIRATORY: anterior lopez clear. on mechanical ventilation via OT intubation GASTROINTESTINAL: Abdomen nondistended. EXTREMITIES: No cyanosis NEUROLOGICAL: Intubated, sedated Assessment/Plan Problem List: (1) Thrombocytopenia Status: Chronic Plan: --Patient has long-standing history of thrombocytopenia, dating back to 2003. --s/p bone marrow biopsy in , 06/17. awaiting pathology -- Mean platelet volume elevated (2) Atrial fibrillation Status: Chronic Plan: -- Eliquis for anticoagulation Assessment 57-year-old male admitted with generalized weakness and nausea. Hematology consulted for thrombocytopenia. After patient's bone marrow biopsy on 06/17, he became hypoxic and was intubated. Now in [facility] on mechanical ventilation. Plan 1. Bone marrow biopsy pathology negative for hypocellularity. 2. 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 3. Monitor CBC 4. Supportive care Shila Molina Jun 19, 2017 16:57
[2017-06-19] MEDS: hydrALAZINE HCL 20 MG/ML VIAL IV PUSH PRN (19:43)
[2017-06-20] VITALS (18 sets, daily range): BP systolic 116–155; BP diastolic 62–95; PULSE 75–184; RESP 12–16; TEMP 97.1–99.3; O2SAT 93–98
[2017-06-20] MEDS: DEXAMETHASONE SOD PHOS 4 MG/ML VIAL IV PUSH SCH ×4 (00:13→17:18)
[2017-06-20] MEDS: SODIUM CHLOR 0.9% 1000 ML INJ 1,000 ML IV SCH ×2 (01:35→13:30)
[2017-06-20] MEDS: metroNIDAZOLE 500 MG INJ 100 ML IV SCH ×3 (03:19→18:16)
[2017-06-20] MEDS: PROPOFOL 1000 MG/100 ML INJ 100 ML IV SCH ×4 (03:20→16:30)
[2017-06-20] MEDS: RESP: ALBUTEROL 2.5 MG/IPRATROPIUM 0.5 MG NEB (SCH) INH ×6 (03:25→23:41)
[2017-06-20] MEDS: CHLORHEXIDINE GLUCONATE 2 % 1 PACK (2 CLOTHS) TOP SCH (04:00)
[2017-06-20] MEDS: INSULIN NovoLIN REGULAR SUPPLEMENTAL SCALE SQ SCH ×4 (06:00→17:50)
[2017-06-20] MEDS: fentaNYL DRIP 250 ML IV SCH (06:49)
[2017-06-20 07:17] LABS: BICARBONATE 24.5 MEQ/L (21.0-32.0)
[2017-06-20] MEDS: CHLORHEXIDINE 0.12% (ORAL KIT) 15 ML CUP MT SCH ×2 (08:00→20:00)
[2017-06-20] MEDS: ARTIFICIAL TEARS OPTH SOLN 15 ML BTL EACH EYE SCH ×3 (08:11→17:18)
[2017-06-20] MEDS: METOPROLOL TARTRATE 50 MG TAB PO SCH ×2 (09:00→21:55)
--- NOTE | 2017-06-20 09:51 | HHI.CCPN ---
Subjective Remarks/Hospital Course This is a 57-year-old -[place] male. Date of admission 06/14/2017. Date of consultation 06/17/2017. Past medical history includes poor dentition, seizure disorder NOS, atrial fibrillation, nonischemic cardiomyopathy ejection fraction 50-20%, chronic kidney disease stage III, hypertension, diabetes, morbid obesity and chronic venous insufficiency. Patient also is known history of chronic thrombocytopenia. Patient was admitted really on 06/14 with shortness of breath. Dr. Mccormack/cardiology was consulted. Poor candidate for AICD secondary to noncompliance. Recommended removal of all teeth outpatient with possible placement after that. Resume home medications. Echocardiogram revealed EF 20%. Dilated RV/LV. Moderate MR/TR. Pulmonary arterial pressures measures 50-60 mmHg. During this hospitalization, he was also symptomatically bradycardia his medicines have been adjusted see orders. Dr. Aguilera from hematology was consulted due to chronic trauma cytopenia since 2003. Today, a bone marrow biopsy was performed. Patient was documented received fentanyl and Versed during procedure. Received 2.4 mg Narcan post procedures patient was somnolent. ED physicians came to intubate patient received 20 mg etomidate, 150 mg succinylcholine. Patient was hypoxic. Please see intubation note and code note by Dr. Niesha Fatima. Patient is currently on Yosvany-Synephrine drip. Central line placed emergently due to hemodynamic instability. Arterial line placed by my colleague. Subjective 06/18: Arousable to voice and moving all [address] head no acute findings. Troponin peaked at 0.49. Creatinine actually improved. We'll attempt spontaneous breathing trials today. Added when necessary's for blood pressure. 06/19: Peripheral perfusion acceptable. Heart rate better controlled. Start spontaneous breathing trials. 06/20: Improved respiratory effort. Push for extubation. Objective Vital Signs Date Time Temp Pulse Resp B/P Pulse Ox O2 Delivery O2 Flow Rate FiO2 06/20/17 09:28 97 35 06/20/17 08:00 98.6 114 14 140/76 06/18/17 07:49 Ventilator 06/17/17 13:02 15.00 Intake and Output 06/19/17 06/19/17 06/20/17 08:00 16:00 00:00 Intake Total 1706 ml 1213 ml 2445 ml Output Total 260 ml 650 ml 850 ml Balance 1446 ml 563 ml 1595 ml Result Diagram: 06/19/17 0550 06/20/17 0640 Imaging Last Impressions Chest X-Ray 06/18/17 0600 Signed Impressions: Service Date/Time: Sunday, June 18, 2017 04:50 - CONCLUSION: There is new consolidation right medial lower lung. Ronni Capps MD Head CT 06/18/17 0000 Signed Impressions: Service Date/Time: Sunday, June 18, 2017 00:48 - CONCLUSION: Negative exam. No evidence of intracranial hemorrhage. Ronni Capps MD Bone Biopsy CT 06/17/17 0000 Signed Impressions: Service Date/Time: Saturday, June 17, 2017 12:35 - CONCLUSION: Bone marrow aspiration and biopsy complicated by intubation and resuscitation. Pathology is pending. Rell Valentin MD FACR Abdomen Ultrasound 06/16/17 0000 Signed Impressions: Service Date/Time: Friday, June 16, 2017 18:13 - CONCLUSION: Limited sonographic windows due to patient body habitus and bowel gas. Right renal cyst. Visualized portions of the abdomen otherwise within normal limits. Jose Bruno MD Lower Extremity Ultrasound 06/14/17 0000 Signed Impressions: Service Date/Time: Wednesday, June 14, 2017 08:15 - CONCLUSION: Normal examination. Kushal Camacho MD Objective Remarks GENERAL: 57-year-old male, critically ill currently orotracheally intubated SKIN: Cool and dry. Rash left phillips. HEAD: Noted front 2 teeth missing status post intubation. Normocephalic. EYES: Pupils equal and round about 2 mm bilaterally and slightly reactive.. No scleral icterus. No injection or drainage. ENT: No nasal bleeding or discharge. Mucous membranes pink and moist. NECK: Trachea midline. No JVD. CARDIOVASCULAR: Irreg irreg. S1, S2. + JVD. RESPIRATORY: Diminished breath sounds throughout. No wheezing appreciated. GASTROINTESTINAL: Abdomen soft, non-tender, obese. Hypoactive bowel sounds are not appreciated MUSCULOSKELETAL: Extremities with nonpitting lower extremity edema NEUROLOGICAL: Arousable on ventilator. Opens eyes to voice. Moves all 4 extremity spontaneous. Does not track or follow commands. Procedures None A/P Assessment and Plan Neuro/Psych: Rule out anoxic encephalopathy Seizure disorder NOS Patient has been ordered for propofol currently at 10 mcg/kg per minute/ fentanyl drips at 50 mcg an hour for sedation/analgesia while intubated Goal of RA SS -2 Daily sedation vacation Head CT stabilized Currently on Topamax 100 mg by mouth daily for underlying seizure disorder CV: Nonischemic cardiomyopathy Ejection fraction 15-20% Chronic systolic heart failure Pulmonary hypertension History of chronic atrial fibrillation Hypertension Hospitalization with symptomatically bradycardia 2-D echocardiogram revealed EF 20%. Dilated LV/RV. Moderate MR/TR. Pulmonary arterial pressures 50-60 mmHg. Cardiac catheterization 2015 revealed 50% LAD stenosis otherwise unremarkable Currently holding home medications amiodarone 200 mg by mouth daily. Toprol 50 twice a day, doxazosin 2 mill grams daily and enalapril [address] Mccormack/cardiology Holding metoprolol and FABRICE inhibitor with ongoing hypotension Restarted Toprol 50 mg twice a day. As needed labetalol, hydralazine and Nitropaste ordered Continue Bumex 1 mg daily Troponin peaked at 0.49. Currently downward trending. Resp: Acute hypoxic respiratory failure Likely CHINO not on CPAP PRVC 18//11/08/39 Ventilator bundle Albuterol/ipratropium aerosols every 4 hours with albuterol every 2 hours. Dyspnea Spontaneous breathing trials when clinically indicated Chest x-ray right middle lobe infiltrates likely aspiration Start SBTs 06/19 GI: Patient is currently nothing by mouth per start tube feeding if not extubated today. Glucerna 1.5 goal 60 cc an hour. NG tube to be placed to LIWS Pantoprazole for GI prophylaxis Docusate sodium/senna twice a day for bowel regimen : Anderson catheter will be placed for accurate I's and O's in a critically ill patient Endo: Diabetes mellitus Sliding-scale insulin/moderate regimen with Accu-Cheks every 6 hours to maintain euglycemia Renal: Right renal cyst Chronic kidney disease stage III Creatinine currently 17. Monitor urine output Accurate I's and O's Heme: Chronic thrombocytopenia Chronic Apixaban use Status post bone marrow biopsy. Follow-up on results. Dr. Aguilera/hematology following Hold apixaban resume when clinically indicated ID: Monitor for infection Check sputum today Start empirically on cefepime/Flagyl appropriate renal dosaging. MSK: 2 frontal teeth during intubation removed FEN: Replace electrolytes as clinically indicated. Access - Right IJ CVL day 4 - Right femoral artery line day #4 Prophylaxis - GI - pantoprazole- - DVT - SCD/holding pharmacological prophylaxis post code. Resuming clinically indicated Overall impression: Required mechanical ventilation after procedure. Start breathing trials, try to keep relatively well diuresed. Early BiPAP after extubation. Sohail Ma MD Jun 20, 2017 09:51
[2017-06-20] MEDS: TOPIRAMATE 100 MG TAB PO SCH (10:43)
[2017-06-20] MEDS: APIXABAN 5 MG TABLET PO SCH ×2 (10:43→21:55)
[2017-06-20] MEDS: PANTOPRAZOLE SODIUM 40 MG VIAL IV SCH (10:44)
[2017-06-20] MEDS: DOCUSATE SODIUM 50 MG/SENNA 8.6 MG TAB PO SCH ×2 (10:44→21:55)
[2017-06-20] MEDS: BUMETANIDE 1 MG TAB PO SCH (10:44)
[2017-06-20] MEDS: CEFEPIME INJ 2,000 MG in SODIUM CHLORIDE 0.9% INJ 100 ML IV SCH ×2 (10:44→21:56)
[2017-06-20] MEDS: SODIUM CHLORIDE 0.9% FLUSH 10 ML FLUSH IV FLUSH SCH ×2 (10:44→21:00)
[2017-06-21] VITALS (17 sets, daily range): BP systolic 127–146; BP diastolic 72–87; PULSE 75–167; RESP 12; TEMP 98.1–99.6; O2SAT 95–100
[2017-06-21] MEDS: DEXAMETHASONE SOD PHOS 4 MG/ML VIAL IV PUSH SCH ×4 (00:33→20:41)
[2017-06-21] MEDS: PROPOFOL 1000 MG/100 ML INJ 100 ML IV SCH ×6 (00:34→20:41)
[2017-06-21] MEDS: SODIUM CHLOR 0.9% 1000 ML INJ 1,000 ML IV SCH (01:25)
[2017-06-21] MEDS: metroNIDAZOLE 500 MG INJ 100 ML IV SCH ×3 (02:45→17:05)
[2017-06-21] MEDS: RESP: ALBUTEROL 2.5 MG/IPRATROPIUM 0.5 MG NEB (SCH) INH ×3 (03:13→11:24)
[2017-06-21] MEDS: CHLORHEXIDINE GLUCONATE 2 % 1 PACK (2 CLOTHS) TOP SCH (03:16)
[2017-06-21] MEDS: hydrALAZINE HCL 20 MG/ML VIAL IV PUSH PRN (03:41)
[2017-06-21] MEDS: INSULIN NovoLIN REGULAR SUPPLEMENTAL SCALE SQ SCH ×4 (05:29→17:02)
[2017-06-21] MEDS: DOCUSATE SODIUM 50 MG/SENNA 8.6 MG TAB PO SCH ×2 (09:11→20:42)
[2017-06-21] MEDS: ARTIFICIAL TEARS OPTH SOLN 15 ML BTL EACH EYE SCH ×3 (09:11→16:29)
[2017-06-21] MEDS: PANTOPRAZOLE SODIUM 40 MG VIAL IV SCH (09:11)
[2017-06-21] MEDS: CHLORHEXIDINE 0.12% (ORAL KIT) 15 ML CUP MT SCH ×2 (09:11→20:38)
[2017-06-21] MEDS: METOPROLOL TARTRATE 50 MG TAB PO SCH ×2 (09:11→20:43)
[2017-06-21] MEDS: APIXABAN 5 MG TABLET PO SCH ×2 (09:11→20:43)
[2017-06-21] MEDS: SODIUM CHLORIDE 0.9% FLUSH 10 ML FLUSH IV FLUSH SCH ×2 (09:12→20:40)
[2017-06-21] MEDS: CEFEPIME INJ 2,000 MG in SODIUM CHLORIDE 0.9% INJ 100 ML IV SCH ×2 (09:12→21:43)
[2017-06-21] MEDS: TOPIRAMATE 100 MG TAB PO SCH (09:12)
[2017-06-21] MEDS: BUMETANIDE 1 MG TAB PO SCH (09:12)
[2017-06-21] MEDS: fentaNYL DRIP 250 ML IV SCH (10:50)
[2017-06-21 12:10] LABS: AUTOMATED NEUTROPHIL # 11.3 TH/MM3 (1.8-7.7); BASOPHIL % 0.1 % (0.0-2.0); HEMATOCRIT 43.8 % (39.0-51.0); LYMPH % 4.3 % (9.0-44.0); LYMPHOCYTE # 0.5 TH/MM3 (1.0-4.8); MEAN CELL VOLUME 90.9 FL (80.0-100.0); MEAN CORPUSCULAR HGB CONC 31.9 % (32.0-36.0); MONO % 5.9 % (0.0-8.0); NEUT % 89.7 % (16.0-70.0); PLATELET COUNT 80 TH/MM3 (150-450); RED BLOOD COUNT 4.81 MIL/MM3 (4.50-5.90); RED CELL DISTRIBUTION WIDTH 15.1 % (11.6-17.2); WHITE BLOOD COUNT 12.6 TH/MM3 (4.0-11.0)
[2017-06-21 12:14] LABS: HEMO FLAGS AUTO DIFF
[2017-06-21 13:02] LABS: PLATELET ESTIMATE SMEAR LOW (NORMAL); PLATELET MORPHOLOGY NORMAL (NORMAL); SCAN/DIFF AUTO DIFF CONFIRMED
--- NOTE | 2017-06-21 13:49 | PD.ONC.PN ---
Subjective Subjective Remarks Afebrile overnight. Intubated. No family members at bedside. Objective Data Date Time Temp Pulse Resp B/P Pulse Ox O2 Delivery O2 Flow Rate FiO2 06/21/17 12:00 35 06/21/17 12:00 98.4 90 12 132/76 96 06/21/17 12:00 90 06/21/17 11:23 98 35 06/21/17 10:00 106 06/21/17 08:00 102 06/21/17 08:00 35 06/21/17 08:00 98.1 87 12 146/87 98 06/21/17 07:54 97 35 06/21/17 06:00 87 06/21/17 04:00 167 06/21/17 04:00 35 06/21/17 04:00 98.6 167 12 139/72 100 06/21/17 03:13 98 35 06/21/17 02:00 79 06/21/17 00:00 35 06/21/17 00:00 83 06/21/17 00:00 98.1 83 12 146/84 99 06/20/17 23:41 97 35 06/20/17 22:00 99 06/20/17 20:35 97 35 06/20/17 20:00 89 06/20/17 20:00 35 06/20/17 20:00 97.1 96 12 121/95 93 06/20/17 18:00 89 06/20/17 16:31 98 35 06/20/17 16:00 98.8 93 12 143/82 97 06/20/17 16:00 35 06/20/17 16:00 93 06/20/17 14:00 89 06/21/17 06/21/17 06/21/17 06:59 14:59 22:59 Intake Total 920 ml Output Total 400 ml Balance 520 ml Result Diagram: 06/21/17 1130 06/20/17 0640 Laboratory Results Laboratory Tests Test 06/21/17 11:30 White Blood Count 12.6 TH/MM3 Red Blood Count 4.81 MIL/MM3 Hemoglobin 14.0 GM/DL Hematocrit 43.8 % Mean Corpuscular Volume 90.9 FL Mean Corpuscular Hemoglobin 29.0 PG Mean Corpuscular Hemoglobin 31.9 % Concent Red Cell Distribution Width 15.1 % Platelet Count 80 TH/MM3 Mean Platelet Volume 12.5 FL Neutrophils (%) (Auto) 89.7 % Lymphocytes (%) (Auto) 4.3 % Monocytes (%) (Auto) 5.9 % Eosinophils (%) (Auto) 0.0 % Basophils (%) (Auto) 0.1 % Neutrophils # (Auto) 11.3 TH/MM3 Lymphocytes # (Auto) 0.5 TH/MM3 Monocytes # (Auto) 0.7 TH/MM3 Eosinophils # (Auto) 0.0 TH/MM3 Basophils # (Auto) 0.0 TH/MM3 CBC Comment AUTO DIFF Differential Comment AUTO DIFF CONFIRMED Platelet Estimate LOW Platelet Morphology Comment NORMAL Culture Results Microbiology Date/Time Procedure Status Source Growth 06/20/17 16:00 Gram Stain - Final Resulted Sputum Endotracheal 06/20/17 16:00 Sputum Culture - Preliminary Resulted Sputum Endotracheal NO GROWTH IN 24 HOURS. Administered Medications Medications (Trade) Dose Ordered Sig/Ashok Route PRN Reason Start Time Stop Time Status Last Admin Dose Admin Apixaban (Eliquis) 5 mg BID PO 06/14/17 09:00 06/21/17 09:11 Bumetanide (Bumetanide) 1 mg DAILY PO 06/14/17 10:00 06/21/17 09:12 Metoprolol Tartrate (Lopressor) 100 mg Q12HR PO 06/14/17 21:00 Hold 06/16/17 20:58 Enalapril Maleate (Vasotec) 10 mg DAILY PO 06/15/17 09:00 Hold 06/16/17 09:33 Topiramate (Topamax) 100 mg DAILY PO 06/14/17 11:00 06/21/17 09:12 Tramadol HCl (Ultram) 50 mg Q6H PRN PO pain > 5 06/15/17 21:15 Hold 06/16/17 09:34 Chlorhexidine Gluconate 15 ml 15 ml BID@08,20 MT 06/17/17 20:00 06/21/17 09:11 Propofol 100 ml @ 0 mls/hr TITRATE IV 06/17/17 14:15 06/21/17 07:59 Fentanyl Citrate 250 ml @ 0 mls/hr TITRATE IV 06/17/17 14:15 06/21/17 10:50 Phenylephrine HCl 160 mg/Dextrose 500 ml @ 0 mls/hr TITRATE IV 06/17/17 14:15 06/19/17 01:28 Sodium Chloride (NS 1000 ml Inj) 1,000 ml @ 20 mls/hr Q24H IV 06/17/17 14:00 06/20/17 01:35 Sodium Chloride (NS Flush) 2 ml BID IV FLUSH 06/17/17 21:00 06/21/17 09:12 Pantoprazole Sodium (Protonix Inj) 40 mg DAILY IV 06/18/17 09:00 06/21/17 09:11 Artificial Tears (Tears Naturale Opth Soln) 1 drop TID EACH EYE 06/17/17 18:00 06/21/17 12:23 Chlorhexidine Gluconate (Chlorhexidine 2% Cloth) 3 pack Taper DAILY@04 TOP 06/18/17 04:00 06/14/18 03:59 06/21/17 03:16 Senna/Docusate Sodium (Marilee-Colace) 1 tab BID PO 06/17/17 21:00 06/21/17 09:11 Magnesium Hydroxide (Milk Of Magnesia Liq) 30 ml Q12H PRN PO MILD - MODERATE CONSTIPATION 06/17/17 14:15 06/21/17 11:21 Lactulose (Lactulose Liq) 30 ml DAILY PRN PO SEVERE CONSITIPATION 06/17/17 14:15 06/21/17 11:21 Dexamethasone Sodium Phosphate (Decadron Inj) 4 mg Q6HR IV PUSH 06/17/17 18:00 06/21/17 11:23 Labetalol HCl (Trandate Inj) 10 mg Q1HR PRN IV PUSH SBP>160, DBP>90, HR>65 06/18/17 08:45 06/18/17 18:36 Hydralazine HCl (Apresoline Inj) 10 mg Q1HR PRN IV PUSH SBP>160, DBP>90 06/18/17 08:45 06/21/17 03:41 Nitroglycerin 2 inch 2 inch Q6HR PRN TOPICAL SBP>160, DBP>90 06/18/17 08:45 06/18/17 13:00 Cefepime HCl 2000 mg/Sodium Chloride 100 ml @ 200 mls/hr Q12H IV 06/18/17 10:00 06/21/17 09:12 Metronidazole (Flagyl 500 Mg Inj) 100 ml @ 100 mls/hr Q8H IV 06/18/17 11:00 06/21/17 10:50 Metoprolol Tartrate (Lopressor) 50 mg Q12HR PO 06/18/17 09:15 06/21/17 09:11 Objective Remarks GENERAL: Middle aged male, intubated and sedated. SKIN: Warm and dry. HEAD: Normocephalic. EYES: No injection or drainage. NECK: Supple, trachea midline. CARDIOVASCULAR: Regular rate and rhythm RESPIRATORY: anterior lopez clear. on mechanical ventilation GASTROINTESTINAL: Abdomen nondistended. EXTREMITIES: No cyanosis NEUROLOGICAL: intubated, sedated Assessment/Plan Problem List: (1) Thrombocytopenia Status: Chronic Plan: --?ITP --Patient has long-standing history of thrombocytopenia, dating back to 2003. --s/p bone marrow biopsy in , 06/17. awaiting pathology -- Mean platelet volume elevated (2) Atrial fibrillation Status: Chronic Plan: -- on Eliquis Assessment 57-year-old male admitted with generalized weakness and nausea. Hematology consulted for thrombocytopenia. After patient's bone marrow biopsy on 06/17, he became hypoxic and was intubated. Now in [facility] on mechanical ventilation. Plan 1. monitor CBC 2. supportive care Gretta Robles Jun 21, 2017 13:49
--- NOTE | 2017-06-21 16:38 | HHI.CCPN ---
Subjective Remarks/Hospital Course This is a 57-year-old -[place] male. Date of admission 06/14/2017. Date of consultation 06/17/2017. Past medical history includes poor dentition, seizure disorder NOS, atrial fibrillation, nonischemic cardiomyopathy ejection fraction 50-20%, chronic kidney disease stage III, hypertension, diabetes, morbid obesity and chronic venous insufficiency. Patient also is known history of chronic thrombocytopenia. Patient was admitted really on 06/14 with shortness of breath[address] Dr. Mccormack/cardiology was consulted. Poor candidate for AICD secondary to noncompliance. Recommended removal of all teeth outpatient with possible placement after that. Resume home medications. Echocardiogram revealed EF 20%. Dilated RV/LV. Moderate MR/TR. Pulmonary arterial pressures measures 50-60 mmHg. During this hospitalization, he was also symptomatically bradycardia his medicines have been adjusted see orders. Dr. Aguilera from hematology was consulted due to chronic trauma cytopenia since 2003. Today, a bone marrow biopsy was performed. Patient was documented received fentanyl and Versed during procedure. Received 2.4 mg Narcan post procedures patient was somnolent. ED physicians came to intubate patient received 20 mg etomidate, 150 mg succinylcholine. Patient was hypoxic. Please see intubation note and code note by Dr. Niesha Fatima. Patient is currently on Yosvany-Synephrine drip. Central line placed emergently due to hemodynamic instability. Arterial line placed by my colleague. 06/18: Arousable to voice and moving all [address] head no acute findings. Troponin peaked at 0.49. Creatinine actually improved. We'll attempt spontaneous breathing trials today. Added when necessary's for blood pressure. 06/19: Peripheral perfusion acceptable. Heart rate better controlled. Start spontaneous breathing trials. 06/20: Improved respiratory effort. Push for extubation. Subjective 06/21: Awake and arousable on the ventilator. Tolerating tube feeding. No BM. Afebrile. Objective Vital Signs Date Time Temp Pulse Resp B/P Pulse Ox O2 Delivery O2 Flow Rate FiO2 06/21/17 16:16 95 35 06/21/17 16:00 87 06/21/17 16:00 99.6 12 127/84 06/18/17 07:49 Ventilator 06/17/17 13:02 15.00 Intake and Output 06/20/17 06/20/1717 08:00 16:00 00:00 Intake Total 1223 ml 1063 ml 1318 ml Output Total 350 ml 450 ml 1700 ml Balance 873 ml 613 ml -382 ml Result Diagram: 06/21/17 1130 06/20/17 0640 Other Results Microbiology Date/Time Procedure Status Source Growth 06/20/17 16:00 Gram Stain - Final Resulted Sputum Endotracheal 06/20/17 16:00 Sputum Culture - Preliminary Resulted Sputum Endotracheal NO GROWTH IN 24 HOURS. Imaging Last Impressions Chest X-Ray 06/19/17 0600 Signed Impressions: Service Date/Time: Monday, June 19, 2017 03:20 - CONCLUSION: Increasing bibasilar infiltrates, now with consolidation. Ronni Capps MD Head CT 06/18/17 0000 Signed Impressions: Service Date/Time: Sunday, June 18, 2017 00:48 - CONCLUSION: Negative exam. No evidence of intracranial hemorrhage. Ronni Capps MD Bone Biopsy CT 06/17/17 0000 Signed Impressions: Service Date/Time: Saturday, June 17, 2017 12:35 - CONCLUSION: Bone marrow aspiration and biopsy complicated by intubation and resuscitation. Pathology is pending. Rell Valentin MD FACR Abdomen Ultrasound 06/16/17 0000 Signed Impressions: Service Date/Time: Friday, June 16, 2017 18:13 - CONCLUSION: Limited sonographic windows due to patient body habitus and bowel gas. Right renal cyst. Visualized portions of the abdomen otherwise within normal limits. Jose Bruno MD Lower Extremity Ultrasound 06/14/17 0000 Signed Impressions: Service Date/Time: Wednesday, June 14, 2017 08:15 - CONCLUSION: Normal examination. Kushal Camacho MD Objective Remarks GENERAL: 57-year-old male, critically ill currently orotracheally intubated SKIN: Cool and dry. Rash left phillips. HEAD: Noted front 2 teeth missing status post intubation. Normocephalic. EYES: Pupils equal and round about 2 mm bilaterally and slightly reactive.. No scleral icterus. No injection or drainage. ENT: No nasal bleeding or discharge. Mucous membranes pink and moist. NECK: Trachea midline. No JVD. CARDIOVASCULAR: Irreg irreg. S1, S2. + JVD. RESPIRATORY: Diminished breath sounds throughout. No wheezing appreciated. GASTROINTESTINAL: Abdomen soft, non-tender, obese. Hypoactive bowel sounds are not appreciated MUSCULOSKELETAL: Extremities with nonpitting lower extremity edema NEUROLOGICAL: Arousable on ventilator. Opens eyes to voice. Moves all 4 extremity spontaneous. Follows commands by wiggling toes and squeezing hands bilaterally. Procedures None A/P Assessment and Plan Neuro/Psych: Rule out anoxic encephalopathy Seizure disorder NOS Patient has been ordered for propofol currently at 10 mcg/kg per minute/ fentanyl drips at 50 mcg an hour for sedation/analgesia while intubated Goal of RA SS -2 Daily sedation vacation Head CT stabilized Currently on Topamax 100 mg by mouth daily for underlying seizure disorder CV: Nonischemic cardiomyopathy Ejection fraction 15-20% Chronic systolic heart failure Pulmonary hypertension History of chronic atrial fibrillation Hypertension Hospitalization with symptomatically bradycardia 2-D echocardiogram revealed EF 20%. Dilated LV/RV. Moderate MR/TR. Pulmonary arterial pressures 50-60 mmHg. Cardiac catheterization 2015 revealed 50% LAD stenosis otherwise unremarkable Currently holding home medications amiodarone 200 mg by mouth daily. Toprol 50 twice a day, doxazosin 2 mill grams daily and enalapril [address] Mccormack/cardiology Holding metoprolol and FABRICE inhibitor with ongoing hypotension Restarted Toprol 50 mg twice a day. As needed labetalol, hydralazine and Nitropaste ordered Continue Bumex 1 mg daily Troponin peaked at 0.49. Currently downward trending. Resp: Acute hypoxic respiratory failure Likely CHINO not on CPAP PRVC 18/600/11/08/40 Ventilator bundle Albuterol/ipratropium aerosols every 4 hours with albuterol every 2 hours. Dyspnea Spontaneous breathing trials when clinically indicated Chest x-ray right middle lobe infiltrates likely aspiration Start SBTs 06/19 GI: Glucerna 1.5 goal 50 cc an hour. Pantoprazole for GI prophylaxis Relistor 1 bowel regimen : Anderson catheter will be placed for accurate I's and O's in a critically ill patient Endo: Diabetes mellitus Sliding-scale insulin/moderate regimen with Accu-Cheks every 6 hours to maintain euglycemia Renal: Right renal cyst Chronic kidney disease stage III Creatinine currently 1.7. Monitor urine output Accurate I's and O's Heme: Chronic thrombocytopenia Chronic Apixaban use Status post bone marrow biopsy. Follow-up on results. Dr. Deveras/hematology following Resumed 5 mg twice a day apixaban ID: Monitor for infection Check sputum today Start empirically on cefepime/Flagyl appropriate renal dosaging. MSK: 2 frontal teeth during intubation removed FEN: Replace electrolytes as clinically indicated. Access - Right IJ CVL day 5 - Right femoral artery line day #5 Prophylaxis - GI - pantoprazole- - DVT - SCD/Apixaban Level III follow-up Aung Grossman MD Jun 21, 2017 16:38
[2017-06-21] MEDS ORDERED: METHYLNALTREXONE BROMIDE 12 MG/0.6 ML VIAL SQ ONE (17:00)
[2017-06-22] VITALS (19 sets, daily range): BP systolic 129–152; BP diastolic 79–90; PULSE 75–100; RESP 12–13; TEMP 98.1–99.5; O2SAT 93–98
[2017-06-22] MEDS: PROPOFOL 1000 MG/100 ML INJ 100 ML IV SCH ×3 (00:43→19:45)
[2017-06-22] MEDS: SODIUM CHLOR 0.9% 1000 ML INJ 1,000 ML IV SCH (01:25)
[2017-06-22] MEDS: metroNIDAZOLE 500 MG INJ 100 ML IV SCH ×3 (02:36→19:46)
[2017-06-22] MEDS: CHLORHEXIDINE GLUCONATE 2 % 1 PACK (2 CLOTHS) TOP SCH (03:31)
[2017-06-22 04:19] LABS: AUTOMATED NEUTROPHIL # 10.8 TH/MM3 (1.8-7.7); BASOPHIL % 0.2 % (0.0-2.0); EOSINOPHIL % 0.1 % (0.0-4.0); HEMATOCRIT 43.9 % (39.0-51.0); LYMPH % 5.7 % (9.0-44.0); LYMPHOCYTE # 0.7 TH/MM3 (1.0-4.8); MEAN CELL VOLUME 91.7 FL (80.0-100.0); MEAN CORPUSCULAR HEMOGLOBIN 29.5 PG (27.0-34.0); MEAN CORPUSCULAR HGB CONC 32.2 % (32.0-36.0); MONO % 9.2 % (0.0-8.0); NEUT % 84.8 % (16.0-70.0); PLATELET COUNT 83 TH/MM3 (150-450); RED BLOOD COUNT 4.79 MIL/MM3 (4.50-5.90); WHITE BLOOD COUNT 12.8 TH/MM3 (4.0-11.0)
[2017-06-22 04:20] LABS: HEMO FLAGS AUTO DIFF
[2017-06-22 04:53] LABS: ALT (GPT) 58 U/L (12-78); ANION GAP 3 MEQ/L (5-15); AST (GOT) 32 U/L (15-37); BICARBONATE 30.9 MEQ/L (21.0-32.0); BLOOD UREA NITROGEN 43 MG/DL (7-18); CHLORIDE 111 MEQ/L (98-107); GLOMERULAR FILTRATION RATE 60 ML/MIN (>89); MAGNESIUM 2.9 MG/DL (1.5-2.5); POTASSIUM 4.5 MEQ/L (3.5-5.1); SODIUM (NA) 145 MEQ/L (136-145)
[2017-06-22 04:55] LABS: ALKALINE PHOSPHATASE 95 U/L (45-117); TOTAL BILIRUBIN ADULT 0.3 MG/DL (0.2-1.0)
[2017-06-22 05:05] LABS: PLATELET ESTIMATE SMEAR LOW (NORMAL); PLATELET MORPHOLOGY ENLARGED (NORMAL); SCAN/DIFF AUTO DIFF CONFIRMED
--- NOTE | 2017-06-22 05:43 | RADRPT ---
EXAM DATE/TIME: 06/22/2017 03:49 [facility] COMPARISON: No previous studies available for comparison. INDICATIONS : Respiratory failure MEDICAL HISTORY : None. SURGICAL HISTORY : None. ENCOUNTER: Subsequent ACUITY: 1 week PAIN SCORE: Non-responsive. LOCATION: Bilateral chest FINDINGS: A single view of the chest demonstrates nasogastric tube entering stomach. Endotracheal tube in [employer] position. Bilateral mostly basilar airspace consolidation does appear slightly increased sinc e June 19. No pneumothorax identified. CONCLUSION: 1. Slight increase in basilar airspace disease since June 19. Endotracheal tube and nasogastric tub e unchanged. Anderson Raymond MD on June 22, 2017 at 5:40 Board Certified Radiologist. This report was verified electronically.
[2017-06-22] MEDS: INSULIN NovoLIN REGULAR SUPPLEMENTAL SCALE SQ SCH ×4 (05:57→18:00)
[2017-06-22] MEDS: CHLORHEXIDINE 0.12% (ORAL KIT) 15 ML CUP MT SCH ×2 (08:00→19:46)
--- NOTE | 2017-06-22 08:16 | HHI.CCPN ---
Subjective Remarks/Hospital Course This is a 57-year-old -[place] male. Date of admission 06/14/2017. Date of consultation 06/17/2017. Past medical history includes poor dentition, seizure disorder NOS, atrial fibrillation, nonischemic cardiomyopathy ejection fraction 50-20%, chronic kidney disease stage III, hypertension, diabetes, morbid obesity and chronic venous insufficiency. Patient also is known history of chronic thrombocytopenia. Patient was admitted really on 06/14 with shortness of breath. Dr. Mccormack/cardiology was consulted. Poor candidate for AICD secondary to noncompliance. Recommended removal of all teeth outpatient with possible placement after that. Resume home medications. Echocardiogram revealed EF 20%. Dilated RV/LV. Moderate MR/TR. Pulmonary arterial pressures measures 50-60 mmHg. During this hospitalization, he was also symptomatically bradycardia his medicines have been adjusted see orders. Dr. Aguilera from hematology was consulted due to chronic trauma cytopenia since 2003. Today, a bone marrow biopsy was performed. Patient was documented received fentanyl and Versed during procedure. Received 2.4 mg Narcan post procedures patient was somnolent. ED physicians came to intubate patient received 20 mg etomidate, 150 mg succinylcholine. Patient was hypoxic. Please see intubation note and code note by Dr. Niesha Fatima. Patient is currently on Yosvany-Synephrine drip. Central line placed emergently due to hemodynamic instability. Arterial line placed by my colleague. 06/18: Arousable to voice and moving all [address] head no acute findings. Troponin peaked at 0.49. Creatinine actually improved. We'll attempt spontaneous breathing trials today. Added when necessary's for blood pressure. 06/19: Peripheral perfusion acceptable. Heart rate better controlled. Start spontaneous breathing trials. 06/20: Improved respiratory effort. Push for extubation. 06/21: Awake and arousable on the ventilator. Tolerating tube feeding. No BM. Afebrile. Subjective 06/22: Afebrile. On sedation vacation yesterday was following commands by wiggling toes and squeeze bilateral upper extremities. However, brief one dose patient becomes agitated and gags on ET tube. Objective Vital Signs Date Time Temp Pulse Resp B/P Pulse Ox O2 Delivery O2 Flow Rate FiO2 06/22/17 06:00 79 06/22/17 04:20 95 35 06/22/17 04:00 98.1 12 133/83 06/18/17 07:49 Ventilator Intake and Output 06/21/17 06/21/17 06/22/17 08:00 16:00 00:00 Intake Total 920 ml 1195 ml 984 ml Output Total 400 ml 700 ml 850 ml Balance 520 ml 495 ml 134 ml Result Diagram: 06/22/17 0405 06/22/17 0405 Other Results Microbiology Date/Time Procedure Status Source Growth 06/20/17 16:00 Gram Stain - Final Resulted Sputum Endotracheal 06/20/17 16:00 Sputum Culture - Preliminary Resulted Sputum Endotracheal NO GROWTH IN 24 HOURS. Imaging Last Impressions Chest X-Ray 06/22/17 0600 Signed Impressions: Service Date/Time: Thursday, June 22, 2017 03:49 - CONCLUSION: 1. Slight increase in basilar airspace disease since June 19. Endotracheal tube and nasogastric tube unchanged. Anderson Raymond MD Head CT 06/18/17 0000 Signed Impressions: Service Date/Time: Sunday, June 18, 2017 00:48 - CONCLUSION: Negative exam. No evidence of intracranial hemorrhage. Ronni Capps MD Bone Biopsy CT 06/17/17 0000 Signed Impressions: Service Date/Time: Saturday, June 17, 2017 12:35 - CONCLUSION: Bone marrow aspiration and biopsy complicated by intubation and resuscitation. Pathology is pending. Rell Valentin MD FACR Abdomen Ultrasound 06/16/17 0000 Signed Impressions: Service Date/Time: Friday, June 16, 2017 18:13 - CONCLUSION: Limited sonographic windows due to patient body habitus and bowel gas. Right renal cyst. Visualized portions of the abdomen otherwise within normal limits. Jose Bruno MD Lower Extremity Ultrasound 06/14/17 0000 Signed Impressions: Service Date/Time: Wednesday, June 14, 2017 08:15 - CONCLUSION: Normal examination. Kushal Camacho MD Objective Remarks GENERAL: 57-year-old male, critically ill currently orotracheally intubated SKIN: Cool and dry. Rash left phillips. HEAD: Noted front 2 teeth missing status post intubation. Normocephalic. EYES: Pupils equal and round about 2 mm bilaterally and slightly reactive.. No scleral icterus. No injection or drainage. ENT: No nasal bleeding or discharge. Mucous membranes pink and moist. NECK: Trachea midline. No JVD. CARDIOVASCULAR: Irreg irreg. S1, S2. RESPIRATORY: Diminished breath sounds throughout. No wheezing appreciated. GASTROINTESTINAL: Abdomen soft, non-tender, obese. Hypoactive bowel sounds are not appreciated MUSCULOSKELETAL: Extremities with nonpitting lower extremity edema NEUROLOGICAL: Arousable on ventilator. Opens eyes to voice. Moves all 4 extremity spontaneous but weakly. Follows commands by wiggling toes and squeezing hands bilaterally. Procedures None A/P Assessment and Plan Neuro/Psych: Rule out anoxic encephalopathy Seizure disorder NOS Patient has been ordered for propofol currently at 10 mcg/kg per minute/ fentanyl drips at 50 mcg an hour for sedation/analgesia while intubated Goal of RA SS -2 Daily sedation vacation Head CT stabilized Currently on Topamax 100 mg by mouth daily for underlying seizure disorder CV: Nonischemic cardiomyopathy Ejection fraction 15-20% Chronic systolic heart failure Pulmonary hypertension History of chronic atrial fibrillation Hypertension Hospitalization with symptomatically bradycardia 2-D echocardiogram revealed EF 20%. Dilated LV/RV. Moderate MR/TR. Pulmonary arterial pressures 50-60 mmHg. Cardiac catheterization 2015 revealed 50% LAD stenosis otherwise unremarkable Currently holding home medications amiodarone 200 mg by mouth daily. doxazosin 2 mill grams daily and enalapril [address] Mccormack/cardiology Holding metoprolol and FABRICE inhibitor with ongoing hypotension Metoprolol 50 mg twice a day. As needed labetalol, hydralazine and Nitropaste ordered Continue Bumex 1 mg daily Troponin peaked at 0.49. Currently downward trending. Resp: Acute hypoxic respiratory failure Likely CHINO not on CPAP PRVC 18/600/11/08/39 Ventilator bundle Albuterol/ipratropium aerosols every 4 hours with albuterol every 2 hours. Dyspnea Spontaneous breathing trials when clinically indicated Chest x-ray right middle lobe infiltrates likely aspiration Start SBTs 06/19. Feels daily GI: Glucerna 1.5 goal 50 cc an hour. Pantoprazole for GI prophylaxis Relistor 1 bowel regimen. 3 bowel movements yesterday : Anderson catheter will be placed for accurate I's and O's in a critically ill patient Endo: Diabetes mellitus Sliding-scale insulin/moderate regimen with Accu-Cheks every 6 hours to maintain euglycemia Renal: Right renal cyst Chronic kidney disease stage III Creatinine currently 1.5. Monitor urine output Accurate I's and O's Heme: Leukocytosis Chronic thrombocytopenia Chronic Apixaban use Status post bone marrow biopsy. Follow-up on results. Dr. Aguilera/hematology following Resumed 5 mg twice a day apixaban ID: Monitor for infection All cultures no growth to date Start empirically on cefepime/Flagyl appropriate renal dosaging. MSK: 2 frontal teeth during intubation removed FEN: Hyper-magnesium Replace electrolytes as clinically indicated. Access - Right IJ CVL day 6 - Right femoral artery line day #6 Prophylaxis - GI - pantoprazole- - DVT - SCD/Apixaban Level III follow-up Will likely need tracheostomy. We'll likely consult general surgery on Saturday/ Saturday for placement if no improvement in mental status. Aung Grossman MD Jun 22, 2017 08:16
[2017-06-22] MEDS: DEXAMETHASONE SOD PHOS 4 MG/ML VIAL IV PUSH SCH ×2 (08:22→21:30)
[2017-06-22] MEDS: ONDANSETRON HCL 4 MG/2 ML VIAL IV PRN (08:22)
[2017-06-22] MEDS: PANTOPRAZOLE SODIUM 40 MG VIAL IV SCH (08:22)
[2017-06-22] MEDS: METOPROLOL TARTRATE 50 MG TAB PO SCH ×2 (08:23→21:30)
[2017-06-22] MEDS: TOPIRAMATE 100 MG TAB PO SCH (08:23)
[2017-06-22] MEDS: BUMETANIDE 1 MG TAB PO SCH (08:23)
[2017-06-22] MEDS: APIXABAN 5 MG TABLET PO SCH ×2 (08:23→21:51)
[2017-06-22] MEDS: ARTIFICIAL TEARS OPTH SOLN 15 ML BTL EACH EYE SCH ×3 (09:00→18:00)
[2017-06-22] MEDS: SODIUM CHLORIDE 0.9% FLUSH 10 ML FLUSH IV FLUSH SCH ×2 (09:00→21:31)
[2017-06-22] MEDS: DOCUSATE SODIUM 50 MG/SENNA 8.6 MG TAB PO SCH ×2 (09:00→21:30)
[2017-06-22] MEDS: CEFEPIME INJ 2,000 MG in SODIUM CHLORIDE 0.9% INJ 100 ML IV SCH ×2 (10:48→21:30)
[2017-06-22] MEDS: fentaNYL DRIP 250 ML IV SCH (13:17)
[2017-06-22] MEDS ORDERED: MIDAZOLAM HCL 5 MG/ML VIAL (1 ML) ONE (14:11)
--- NOTE | 2017-06-22 14:48 | RADRPT ---
EXAM DATE/TIME: 06/22/2017 14:18 [facility] COMPARISON: CHEST SINGLE AP, June 22, 2017, 3:49. INDICATIONS : Evaluate for ET tube placement. MEDICAL HISTORY : None. SURGICAL HISTORY : None. ENCOUNTER: Subsequent ACUITY: 1 day PAIN SCORE: Non-responsive. LOCATION: chest FINDINGS: A single view of the chest demonstrates bilateral airspace disease greater in the right lung. Cardiom egaly. Endotracheal tube and nasogastric tube appear unchanged. Osseous structures are intact. CONCLUSION: Cardiomegaly with bilateral airspace disease greatest in the right lung. Endotracheal tube 5 cm above the alexa. Ramone Cornell MD on June 22, 2017 at 14:45 Board Certified Radiologist. This report was verified electronically.
--- NOTE | 2017-06-22 16:25 | RADRPT ---
EXAM DATE/TIME: 06/22/2017 15:37 [facility] COMPARISON: CHEST SINGLE AP, June 22, 2017, 14:18. INDICATIONS : ET tube replaced. Evaluate for position. MEDICAL HISTORY : None. SURGICAL HISTORY : None. ENCOUNTER: Subsequent ACUITY: 1 day PAIN SCORE: Non-responsive. LOCATION: chest FINDINGS: The left hemithorax is completely opacified not present previously with shift of the structures proba srikanth due to mucous plugging and complete collapsed lung. There is haziness to the lungs most likely p ulmonary edema. Right IJ line is present with tip overlapping the expected region of the SVC. ET tube is present with tip overlapping approximately 1-2 cm above the alexa. NG tube is present with tip i n the stomach. CONCLUSION: 1. Interval development of a completely collapsed left lung probably due to mucous plugging. 2. Superimposed pulmonary edema. Gunnar Culp MD on June 22, 2017 at 16:21 Board Certified Radiologist. This report was verified electronically.
--- NOTE | 2017-06-22 16:35 | RADRPT ---
EXAM DATE/TIME: 06/22/2017 15:43 [facility] COMPARISON: ABDOMEN KUB ONLY, October 12, 2016, 23:51. INDICATIONS : Evaluate for ileus. MEDICAL HISTORY : None. SURGICAL HISTORY : None. ENCOUNTER: Initial ACUITY: 1 day PAIN SCORE: Non-responsive. LOCATION: Abdomen FINDINGS: The bowel gas is nonspecific. There are no signs of obstruction or free air for technique. No defini te calcified stones are identified for technique. NG tube is present with tip in the stomach. Bibasil ar opacities are present discussed on the patient's chest x-ray. CONCLUSION: Nonspecific abdomen. Gunnar Culp MD on June 22, 2017 at 16:32 Board Certified Radiologist. This report was verified electronically.
[2017-06-22] MEDS ORDERED: ROCURONIUM INJ 100 MG/10 ML VIAL IV ONE (16:45)
[2017-06-22] MEDS ORDERED: MIDAZOLAM HCL 2 MG/2 ML VIAL IV PUSH ONE (16:45)
[2017-06-22] MEDS ORDERED: ROCURONIUM INJ 50 MG/5 ML VIAL ONE (16:46)
--- NOTE | 2017-06-22 17:09 | PD.PROCEDR ---
Procedure Note Procedure DATE: 06/22/2017 Fiberoptic bronchoscopy, therapeutic and diagnostic: Indication: Left collapse lung CONSENT Informed consent for procedure was not obtained from mother/healthcare proxy secondary to emergent situation. Phone call made. Message left to return call. Risk include bleeding, perforation and worsening hypoxia.. DESCRIPTION OF THE PROCEDURE The patient was placed with head of bed at 20. Ventilator was switched ACV 14/ 550/5/100%. Patient is currently on Diprivan drip at 40 mcg/kg per minute fentanyl drips 150 mg an hour. Patient received 2 midazolam and 50 mill grams rocuronium. The bronchoscope was interested through the patient's 8.5 ET tube. This advanced the alexa. The left side revealed thick white mucous plugging at the left mainstem. This is lavaged with several aliquots of saline. The proximal was then advanced to the left lower lobe wedge in the left lower lobe subsegments. Alveolar lavage specimen was taken. Dissection collection of Lukens trap and sent for sample see above. The lingula/left upper lobe was evaluated as well. Mucosa was normal. No masses. No erythema. No active bleeding. Bronchoscope was withdrawn to the alexa and advanced to the right upper, middle and lower lobes. Mucosa was normal. No secretions were appreciated. The bronchoscope was withdrawn. Saturations remained above 95% at all times. ESTIMATED BLOOD LOSS: Minimal COMPLICATIONS: No apparent complications. STAT chest x-ray pending at time of dictation Aung Grossman MD Jun 22, 2017 17:09
--- NOTE | 2017-06-22 17:55 | RADRPT ---
EXAM DATE/TIME: 06/22/2017 17:23 [facility] COMPARISON: CHEST SINGLE AP, June 22, 2017, 15:37. INDICATIONS : S/P bronch for left main bronchus mucous removal. MEDICAL HISTORY : None. SURGICAL HISTORY : None. ENCOUNTER: Initial ACUITY: 1 day PAIN SCORE: Non-responsive. LOCATION: Bilateral chest FINDINGS: There is improvement in the aeration of the left lung since the prior exam. The left upper lung field is not aerated. Left basilar opacity is present may be due to a combination of consolidation and or pleural effusion. There is consolidation collapse of right lower lobe. Diffuse pulmonary edema have n ot changed. Lines and tubes are present not significantly changed. CONCLUSION: Improvement in aeration of the left lung. Gunnar Culp MD on June 22, 2017 at 17:53 Board Certified Radiologist. This report was verified electronically.
[2017-06-22] MEDS: METOCLOPRAMIDE HCL 10 MG/2 ML VIAL IV PUSH SCH ×2 (18:24→21:30)
[2017-06-22 21:09] LABS: BRONCHOALVEOLAR LAVAGE RBC 60 /MM3; BRONCHOALVEOLAR LAVAGE WBC 370 /MM3
[2017-06-23] VITALS (16 sets, daily range): BP systolic 118–146; BP diastolic 81–95; PULSE 73–105; RESP 12–14; TEMP 98.6–99.1; O2SAT 94–99
[2017-06-23] MEDS: PROPOFOL 1000 MG/100 ML INJ 100 ML IV SCH ×3 (00:29→22:09)
[2017-06-23 00:57] LABS: BRONCHOAVEOLAR EOSINOPHILS 1 %; BRONCHOAVEOLAR HISTIOCYTES 7 %; BRONCHOAVEOLAR LYMPHOCYTES 4 %
[2017-06-23 01:00] LABS: BRONCHOAVEOLAR NEUTROPHILS 80 %
[2017-06-23] MEDS: SODIUM CHLOR 0.9% 1000 ML INJ 1,000 ML IV SCH (02:41)
[2017-06-23] MEDS: CHLORHEXIDINE GLUCONATE 2 % 1 PACK (2 CLOTHS) TOP SCH (02:42)
[2017-06-23] MEDS: metroNIDAZOLE 500 MG INJ 100 ML IV SCH ×3 (03:06→19:49)
[2017-06-23 05:19] LABS: HEMATOCRIT 42.9 % (39.0-51.0); MEAN CELL VOLUME 90.2 FL (80.0-100.0); MEAN CORPUSCULAR HEMOGLOBIN 29.1 PG (27.0-34.0); MEAN CORPUSCULAR HGB CONC 32.2 % (32.0-36.0); PLATELET COUNT 87 TH/MM3 (150-450); RED BLOOD COUNT 4.76 MIL/MM3 (4.50-5.90); RED CELL DISTRIBUTION WIDTH 14.6 % (11.6-17.2); WHITE BLOOD COUNT 11.1 TH/MM3 (4.0-11.0)
[2017-06-23 05:21] LABS: REVIEW FLAG FINAL
[2017-06-23] MEDS: METOCLOPRAMIDE HCL 10 MG/2 ML VIAL IV PUSH SCH ×3 (05:23→22:08)
[2017-06-23] MEDS: INSULIN NovoLIN REGULAR SUPPLEMENTAL SCALE SQ SCH ×5 (05:23→23:49)
[2017-06-23 06:05] LABS: BICARBONATE 28.1 MEQ/L (21.0-32.0); MAGNESIUM 2.8 MG/DL (1.5-2.5); POTASSIUM 4.2 MEQ/L (3.5-5.1)
--- NOTE | 2017-06-23 06:10 | HHI.CCPN ---
Subjective Remarks/Hospital Course This is a 57-year-old -[place] male. Date of admission 06/14/2017. Date of consultation 06/17/2017. Past medical history includes poor dentition, seizure disorder NOS, atrial fibrillation, nonischemic cardiomyopathy ejection fraction 50-20%, chronic kidney disease stage III, hypertension, diabetes, morbid obesity and chronic venous insufficiency. Patient also is known history of chronic thrombocytopenia. Patient was admitted really on 06/14 with shortness of breath[address] Dr. Mccormack/cardiology was consulted. Poor candidate for AICD secondary to noncompliance. Recommended removal of all teeth outpatient with possible placement after that. Resume home medications. Echocardiogram revealed EF 20%. Dilated RV/LV. Moderate MR/TR. Pulmonary arterial pressures measures 50-60 mmHg. During this hospitalization, he was also symptomatically bradycardia his medicines have been adjusted see orders. Dr. Aguilera from hematology was consulted due to chronic trauma cytopenia since 2003. Today, a bone marrow biopsy was performed. Patient was documented received fentanyl and Versed during procedure. Received 2.4 mg Narcan post procedures patient was somnolent. ED physicians came to intubate patient received 20 mg etomidate, 150 mg succinylcholine. Patient was hypoxic. Please see intubation note and code note by Dr. Niesha Fatima. Patient is currently on Yosvany-Synephrine drip. Central line placed emergently due to hemodynamic instability. Arterial line placed by my colleague. 06/18: Arousable to voice and moving all [address] head no acute findings. Troponin peaked at 0.49. Creatinine actually improved. We'll attempt spontaneous breathing trials today. Added when necessary's for blood pressure. 06/19: Peripheral perfusion acceptable. Heart rate better controlled. Start spontaneous breathing trials. 06/20: Improved respiratory effort. Push for extubation. 06/21: Awake and arousable on the ventilator. Tolerating tube feeding. No BM. Afebrile. 06/22: Afebrile. On sedation vacation yesterday was following commands by wiggling toes and squeeze bilateral upper extremities. However, brief one dose patient becomes agitated and gags on ET tube. Subjective 06/23: Yesterday, patient coughed up tube into vocal cord region. Unable to deflate balloon. Patient's airway was exchanged by anesthesiology. Saturations remained above 90% at all times. After a tube change, mucous plugging to mainstream. Plan emergent bronchus with clearance of secretions. Sample sent. Currently sedating appears comfortable ventilator. Will need tracheostomy. Mother notified and in agreement. Objective Vital Signs Date Time Temp Pulse Resp B/P Pulse Ox O2 Delivery O2 Flow Rate FiO2 06/23/17 04:11 96 40 06/23/17 04:00 99.0 84 12 118/81 Intake and Output 06/22/17 06/22/17 06/23/17 08:00 16:00 00:00 Intake Total 669 ml 719 ml 470 ml Output Total 700 ml 1450 ml 1300 ml Balance -31 ml -731 ml -830 ml Result Diagram: 06/23/17 0500 06/23/17 0500 Other Results Microbiology Date/Time Procedure Status Source Growth 06/22/17 17:00 Gram Stain Received Bronchial Washings Left Lower Lobe Pending 06/22/17 17:00 Bronchial Culture Received Bronchial Washings Left Lower Lobe Pending 06/22/17 17:00 Fungal Smear Received Bronchial Washings Left Lower Lobe Pending 06/22/17 17:00 Fungal Culture Received Bronchial Washings Left Lower Lobe Pending 06/22/17 17:00 Acid Fast Stain Received Bronchial Washings Left Lower Lobe Pending 06/22/17 17:00 Mycobacterial Culture Received Bronchial Washings Left Lower Lobe Pending 06/20/17 16:00 Gram Stain - Final Resulted Sputum Endotracheal 06/20/17 16:00 Sputum Culture - Preliminary Resulted Sputum Endotracheal IMMATURE GROWTH - REINCUBATE Imaging Last Impressions Chest X-Ray 06/22/17 0600 Signed Impressions: Service Date/Time: Thursday, June 22, 2017 03:49 - CONCLUSION: 1. Slight increase in basilar airspace disease since June 19. Endotracheal tube and nasogastric tube unchanged. Anderson Raymond MD Abdomen X-Ray 06/22/17 0000 Signed Impressions: Service Date/Time: Thursday, June 22, 2017 15:43 - CONCLUSION: Nonspecific abdomen. KMark Culp MD Head CT 06/18/17 0000 Signed Impressions: Service Date/Time: Sunday, June 18, 2017 00:48 - CONCLUSION: Negative exam. No evidence of intracranial hemorrhage. Ronni Capps MD Bone Biopsy CT 8/14/17 0000 Signed Impressions: Service Date/Time: Saturday, June 17, 2017 12:35 - CONCLUSION: Bone marrow aspiration and biopsy complicated by intubation and resuscitation. Pathology is pending. Rell Valentin MD FACR Abdomen Ultrasound 06/16/17 0000 Signed Impressions: Service Date/Time: Friday, June 16, 2017 18:13 - CONCLUSION: Limited sonographic windows due to patient body habitus and bowel gas. Right renal cyst. Visualized portions of the abdomen otherwise within normal limits. Jose Bruno MD Lower Extremity Ultrasound 06/14/17 0000 Signed Impressions: Service Date/Time: Wednesday, June 14, 2017 08:15 - CONCLUSION: Normal examination. Kushal Camacho MD Objective Remarks GENERAL: 57-year-old male, critically ill currently orotracheally intubated SKIN: Cool and dry. Rash left phillips. HEAD: Noted front 2 teeth missing status post intubation. Normocephalic. EYES: Pupils equal and round about 2 mm bilaterally and slightly reactive.. No scleral icterus. No injection or drainage. ENT: No nasal bleeding or discharge. Mucous membranes pink and moist. NECK: Trachea midline. No JVD. CARDIOVASCULAR: Irreg irreg. S1, S2. RESPIRATORY: Diminished breath sounds throughout. No wheezing appreciated. GASTROINTESTINAL: Abdomen soft, non-tender, obese. Hypoactive bowel sounds are not appreciated MUSCULOSKELETAL: Extremities with nonpitting lower extremity edema NEUROLOGICAL: Sedated on the ventilator. There is a following commands by wiggling toes and squeezing his bilaterally. Currently sedated due to airway issues Procedures None A/P Assessment and Plan Neuro/Psych: Rule out anoxic encephalopathy Seizure disorder NOS Patient has been ordered for propofol currently at 20 mcg/kg per minute/ fentanyl drips at 100 mcg an hour for sedation/analgesia while intubated Goal of RA SS -2 Daily sedation vacation Head CT 06/18 revealed no acute intracranial findings Currently on Topamax 100 mg by mouth daily for underlying seizure disorder Plan for EEG today. CV: Nonischemic cardiomyopathy Ejection fraction 15-20% Chronic systolic heart failure Pulmonary hypertension History of chronic atrial fibrillation Hypertension Hospitalization with symptomatically bradycardia 2-D echocardiogram revealed EF 20%. Dilated LV/RV. Moderate MR/TR. Pulmonary arterial pressures 50-60 mmHg. Cardiac catheterization 2015 revealed 50% LAD stenosis otherwise unremarkable Currently holding home medications amiodarone 200 mg by mouth daily. doxazosin 2 mill grams daily and enalapril [address] Mccormack/cardiology Holding metoprolol and FABRICE inhibitor with ongoing hypotension Metoprolol 50 mg twice a day. As needed labetalol, hydralazine and Nitropaste ordered Continue Bumex 1 mg daily Troponin peaked at 0.49. Downward trending. Resp: Acute hypoxic respiratory failure Likely CHINO not on CPAP PRVC 18/600/11/08/39 Ventilator bundle Albuterol/ipratropium aerosols every 6 hours with albuterol every 2 hours. Dyspnea Spontaneous breathing trials on hold due to airway issues. Chest x-ray right middle lobe infiltrates likely aspiration Will need tracheostomy. Consult replaced Saturday. Mother/healthcare proxy agrees. Weaning Decadron to 4 mg daily 3 days and discontinue for airway edema GI: Glucerna 1.5 goal 50 cc an hour goal. We'll start at 20 cc daily do not increase due to elevated residuals. KUB 06/22 nonspecific. Start metoclopramide 5 mg IV every 8 hours Pantoprazole 40 mg IV daily for GI prophylaxis Relistor 1 bowel regimen on 06/21. 3 bowel movements yesterday : Anderson catheter will be placed for accurate I's and O's in a critically ill patient Endo: Diabetes mellitus Sliding-scale insulin/moderate regimen with Accu-Cheks every 6 hours to maintain euglycemia Renal: Right renal cyst Chronic kidney disease stage III Creatinine currently 1.5. Monitor urine output Accurate I's and O's Heme: Leukocytosis Chronic thrombocytopenia Chronic Apixaban use Status post bone marrow biopsy. Follow-up on results. Dr. Aguilera/hematology following Resumed 5 mg twice a day apixaban on 06/22 ID: Monitor for infection All cultures no growth to date Start empirically on cefepime/Flagyl appropriate renal dosaging. MSK: 2 frontal teeth during intubation removed Elevated BMI Weight loss encouraged FEN: Hyper-magnesium Replace electrolytes as clinically indicated. Access - Right IJ CVL day 7 - Right femoral artery line day #7 Prophylaxis - GI - pantoprazole- - DVT - SCD/Apixaban Level III follow-up Will likely need tracheostomy. We'll likely consult general surgery on Saturday/ Saturday for placement if no improvement in mental status. Aung Grossman MD Jun 23, 2017 06:10
[2017-06-23] MEDS: RESP: ALBUTEROL 2.5 MG/IPRATROPIUM 0.5 MG NEB (SCH) NEB ×3 (07:56→19:49)
[2017-06-23] MEDS: CHLORHEXIDINE 0.12% (ORAL KIT) 15 ML CUP MT SCH ×2 (08:00→19:49)
[2017-06-23] MEDS: TOPIRAMATE 100 MG TAB PO SCH (09:00)
[2017-06-23] MEDS: SODIUM CHLORIDE 0.9% FLUSH 10 ML FLUSH IV FLUSH SCH ×2 (09:00→20:36)
[2017-06-23] MEDS: PANTOPRAZOLE SODIUM 40 MG VIAL IV SCH (09:00)
[2017-06-23] MEDS: DEXAMETHASONE SOD PHOS 4 MG/ML VIAL IV PUSH SCH (09:00)
[2017-06-23] MEDS: BUMETANIDE 1 MG TAB PO SCH (09:00)
[2017-06-23] MEDS: DOCUSATE SODIUM 50 MG/SENNA 8.6 MG TAB PO SCH ×2 (09:00→20:36)
[2017-06-23] MEDS: METOPROLOL TARTRATE 50 MG TAB PO SCH ×2 (09:00→20:36)
[2017-06-23] MEDS: APIXABAN 5 MG TABLET PO SCH (09:00)
[2017-06-23] MEDS: CEFEPIME INJ 2,000 MG in SODIUM CHLORIDE 0.9% INJ 100 ML IV SCH ×2 (10:00→22:09)
--- NOTE | 2017-06-23 15:09 | MG ---
cc: LASHAWN GREEN Lab No: [id number] Date: Age: Sex: M Race: 57-year-old man intubated, fentanyl, epilepsy, atrial fibrillation, dental infection, Reglan and propofol. DESCRIPTION OF THE RECORDING: Diffuse, though there is likely some ICU artifact, beta rhythms are noted. Some diffuse 5-6 Hz 50 microvolt slowing is seen. the recording overall is synchronous and symmetric. No epileptiform or seizure activity is noted. Photic stimulation performed without significant posterior driving. IMPRESSION: This is consistent with medication effect. No focal abnormalities noted. No seizure activity is seen. MD AMRITA Ruiz/TIN /12:29 PM /3:03 PM
--- NOTE | 2017-06-23 20:22 | PD.CAR.PN ---
CVT Progress Note Subjective/Hospital Course: Consult received Patient will be taken to the operating room for tracheostomy in the face of his size and anatomy Pacheco Morris Objective: Vital Signs Date Time Temp Pulse Resp B/P (MAP) Pulse Ox O2 Delivery O2 Flow Rate FiO2 06/23/17 18:00 82 06/23/17 16:08 97 40 06/23/17 16:00 98.6 82 14 146/94 (111) 97 06/23/17 16:00 80 06/23/17 16:00 50 06/23/17 14:00 80 06/23/17 12:00 50 06/23/17 09:48 97 40 06/23/17 08:00 50 06/23/17 07:57 99 40 06/23/17 06:00 79 06/23/17 04:11 96 40 06/23/17 04:00 99.0 84 12 118/81 (93) 97 06/23/17 04:00 50 06/23/17 04:00 84 06/23/17 02:00 73 06/23/17 00:40 94 40 06/23/17 00:00 50 06/23/17 00:00 99.1 81 12 142/95 (111) 95 Arterial Line 06/23/17 00:00 81 06/22/17 22:00 76 06/22/17 21:52 96 40 Result Diagram: 06/23/17 0500 06/23/17 0500 Kike Brandon MD Jun 23, 2017 20:22
[2017-06-24] VITALS (17 sets, daily range): BP systolic 100–141; BP diastolic 69–89; PULSE 81–135; RESP 14; TEMP 98.6–99.9; O2SAT 95–100
[2017-06-24] MEDS: SODIUM CHLOR 0.9% 1000 ML INJ 1,000 ML IV SCH (01:25)
[2017-06-24] MEDS: CHLORHEXIDINE GLUCONATE 2 % 1 PACK (2 CLOTHS) TOP SCH ×2 (02:17→19:46)
[2017-06-24] MEDS: metroNIDAZOLE 500 MG INJ 100 ML IV SCH ×3 (03:00→19:24)
[2017-06-24] MEDS: PROPOFOL 1000 MG/100 ML INJ 100 ML IV SCH ×3 (03:17→17:39)
[2017-06-24 03:19] LABS: AUTOMATED NEUTROPHIL # 8.7 TH/MM3 (1.8-7.7); BASOPHIL % 0.4 % (0.0-2.0); EOSINOPHIL # 0.3 TH/MM3 (0-0.4); EOSINOPHIL % 2.2 % (0.0-4.0); HEMATOCRIT 44.1 % (39.0-51.0); LYMPH % 11.7 % (9.0-44.0); LYMPHOCYTE # 1.4 TH/MM3 (1.0-4.8); MEAN CELL VOLUME 89.4 FL (80.0-100.0); MEAN CORPUSCULAR HEMOGLOBIN 28.5 PG (27.0-34.0); MEAN CORPUSCULAR HGB CONC 31.9 % (32.0-36.0); MONO % 12.8 % (0.0-8.0); NEUT % 72.9 % (16.0-70.0); PLATELET COUNT 89 TH/MM3 (150-450); RED BLOOD COUNT 4.93 MIL/MM3 (4.50-5.90); RED CELL DISTRIBUTION WIDTH 14.5 % (11.6-17.2)
[2017-06-24] MEDS: RESP: ALBUTEROL 2.5 MG/IPRATROPIUM 0.5 MG NEB (SCH) NEB ×4 (03:28→21:23)
[2017-06-24 03:36] LABS: HEMO FLAGS AUTO DIFF
[2017-06-24 03:40] LABS: ALT (GPT) 51 U/L (12-78); ANION GAP 7 MEQ/L (5-15); AST (GOT) 24 U/L (15-37); BICARBONATE 28.8 MEQ/L (21.0-32.0); BLOOD UREA NITROGEN 43 MG/DL (7-18); CHLORIDE 107 MEQ/L (98-107); GLOMERULAR FILTRATION RATE 62 ML/MIN (>89); MAGNESIUM 2.7 MG/DL (1.5-2.5); POTASSIUM 3.8 MEQ/L (3.5-5.1); SODIUM (NA) 143 MEQ/L (136-145)
[2017-06-24 03:42] LABS: ALKALINE PHOSPHATASE 73 U/L (45-117); TOTAL BILIRUBIN ADULT 0.5 MG/DL (0.2-1.0)
[2017-06-24 04:36] LABS: PLATELET ESTIMATE SMEAR LOW (NORMAL); PLATELET MORPHOLOGY ENLARGED (NORMAL); SCAN/DIFF AUTO DIFF CONFIRMED
[2017-06-24] MEDS: METOCLOPRAMIDE HCL 10 MG/2 ML VIAL IV PUSH SCH ×3 (05:41→21:39)
--- NOTE | 2017-06-24 05:43 | RADRPT ---
EXAM DATE/TIME: 06/24/2017 03:55 [facility] COMPARISON: CHEST SINGLE AP, June 22, 2017, 17:23. INDICATIONS : Respiratory failure MEDICAL HISTORY : None. SURGICAL HISTORY : None. ENCOUNTER: Subsequent ACUITY: 4 - 6 days PAIN SCORE: Non-responsive. LOCATION: Bilateral chest FINDINGS: A single view of the chest demonstrates endotracheal tube in satisfactory position. Nasogastric tube enters stomach. Right central line in superior vena cava. Bilateral mostly basilar airspace disease a nd pleural effusions similar to June 22. CONCLUSION: 1. Support apparatus unchanged. Basilar airspace disease similar to June 22. Anderson Raymond MD on June 24, 2017 at 5:40 Board Certified Radiologist. This report was verified electronically.
[2017-06-24] MEDS: INSULIN NovoLIN REGULAR SUPPLEMENTAL SCALE SQ SCH ×4 (05:51→23:36)
[2017-06-24] MEDS: CHLORHEXIDINE 0.12% (ORAL KIT) 15 ML CUP MT SCH ×2 (08:00→19:24)
--- NOTE | 2017-06-24 08:52 | HHI.CCPN ---
Subjective Remarks/Hospital Course This is a 57-year-old -[place] male. Date of admission 06/14/2017. Date of consultation 06/17/2017. Past medical history includes poor dentition, seizure disorder NOS, atrial fibrillation, nonischemic cardiomyopathy ejection fraction 50-20%, chronic kidney disease stage III, hypertension, diabetes, morbid obesity and chronic venous insufficiency. Patient also is known history of chronic thrombocytopenia. Patient was admitted really on 06/14 with shortness of breath. Dr. Mccormack/cardiology was consulted. Poor candidate for AICD secondary to noncompliance. Recommended removal of all teeth outpatient with possible placement after that. Resume home medications. Echocardiogram revealed EF 20%. Dilated RV/LV. Moderate MR/TR. Pulmonary arterial pressures measures 50-60 mmHg. During this hospitalization, he was also symptomatically bradycardia his medicines have been adjusted see orders. Dr. Aguilera from hematology was consulted due to chronic trauma cytopenia since 2003. Today, a bone marrow biopsy was performed. Patient was documented received fentanyl and Versed during procedure. Received 2.4 mg Narcan post procedures patient was somnolent. ED physicians came to intubate patient received 20 mg etomidate, 150 mg succinylcholine. Patient was hypoxic. Please see intubation note and code note by Dr. Niesha Fatima. Patient is currently on Yosvany-Synephrine drip. Central line placed emergently due to hemodynamic instability. Arterial line placed by my colleague. 06/18: Arousable to voice and moving all [address] head no acute findings. Troponin peaked at 0.49. Creatinine actually improved. We'll attempt spontaneous breathing trials today. Added when necessary's for blood pressure. 06/19: Peripheral perfusion acceptable. Heart rate better controlled. Start spontaneous breathing trials. 06/20: Improved respiratory effort. Push for extubation. 06/21: Awake and arousable on the ventilator. Tolerating tube feeding. No BM. Afebrile. 06/22: Afebrile. On sedation vacation yesterday was following commands by wiggling toes and squeeze bilateral upper extremities. However, brief one dose patient becomes agitated and gags on ET tube. 06/23: Yesterday, patient coughed up tube into vocal cord region. Unable to deflate balloon. Patient's airway was exchanged by anesthesiology. Saturations remained above 90% at all times. After a tube change, mucous plugging to mainstream. Plan emergent bronchus with clearance of secretions. Sample sent. Currently sedating appears comfortable ventilator. Will need tracheostomy. Mother notified and in agreement. Subjective 06/23: Remains intubated sedated, off sedation patient follows commands 4. But failed CPAP trial today due to severe tachycardia and agitation. Plan for OP tracheostomy today Objective Vital Signs Date Time Temp Pulse Resp B/P (MAP) Pulse Ox O2 Delivery O2 Flow Rate FiO2 06/24/17 08:23 100 40 06/24/17 06:00 105 06/24/17 04:00 98.6 14 141/80 (100) Intake and Output 06/24/17 06/24/17 06/25/17 08:00 16:00 00:00 Intake Total 1286 ml 44 ml Output Total 1850 ml Balance -564 ml 44 ml Result Diagram: 06/24/17 0300 06/24/17 0300 Imaging Last Impressions Chest X-Ray 06/22/17 0600 Signed Impressions: Service Date/Time: Thursday, June 22, 2017 03:49 - CONCLUSION: 1. Slight increase in basilar airspace disease since June 19. Endotracheal tube and nasogastric tube unchanged. Anderson Raymond MD Abdomen X-Ray 06/22/17 0000 Signed Impressions: Service Date/Time: Thursday, June 22, 2017 15:43 - CONCLUSION: Nonspecific abdomen. KMark Culp MD Head CT 06/18/17 0000 Signed Impressions: Service Date/Time: Sunday, June 18, 2017 00:48 - CONCLUSION: Negative exam. No evidence of intracranial hemorrhage. Ronni Capps MD Bone Biopsy CT 06/17/17 0000 Signed Impressions: Service Date/Time: Saturday, June 17, 2017 12:35 - CONCLUSION: Bone marrow aspiration and biopsy complicated by intubation and resuscitation. Pathology is pending. Rell Valentin MD FACR Abdomen Ultrasound 06/16/17 0000 Signed Impressions: Service Date/Time: Friday, June 16, 2017 18:13 - CONCLUSION: Limited sonographic windows due to patient body habitus and bowel gas. Right renal cyst. Visualized portions of the abdomen otherwise within normal limits. Jose Bruno MD Lower Extremity Ultrasound 06/14/17 0000 Signed Impressions: Service Date/Time: Wednesday, June 14, 2017 08:15 - CONCLUSION: Normal examination. Kushal Camacho MD Objective Remarks GENERAL: 57-year-old male, critically ill currently orotracheally intubated SKIN: Cool and dry. Rash left phillips. HEAD: Noted front 2 teeth missing status post intubation. Normocephalic. EYES: Pupils equal and round about 2 mm bilaterally and slightly reactive.. No scleral icterus. No injection or drainage. ENT: No nasal bleeding or discharge. Mucous membranes pink and moist. NECK: Trachea midline. No JVD. CARDIOVASCULAR: Irreg irreg. S1, S2. Intermittently tachycardic RESPIRATORY: Diminished breath sounds throughout. No wheezing appreciated. GASTROINTESTINAL: Abdomen soft, non-tender, obese. Hypoactive bowel sounds are not appreciated MUSCULOSKELETAL: Extremities with nonpitting lower extremity edema NEUROLOGICAL: Sedated on the ventilator. he is following commands by wiggling toes and squeezing his bilaterally on lightening sedation Procedures None A/P Assessment and Plan Neuro/Psych: Seizure disorder NOS Patient has been ordered for propofol and fentanyl drips No evidence of anoxic brain injury. Following commands 4. EEG 06/23 Normal study. Goal of RA SS -2, Daily sedation vacation Head CT 06/18 revealed no acute intracranial findings Currently on Topamax 100 mg by mouth daily for underlying seizure disorder CV: Nonischemic cardiomyopathy Ejection fraction 15-20% Atrial fibrillation with RVR Chronic systolic heart failure Pulmonary hypertension History of chronic atrial fibrillation Hypertension Hospitalization with symptomatically bradycardia 2-D echocardiogram revealed EF 20%. Dilated LV/RV. Moderate MR/TR. Pulmonary arterial pressures 50-60 mmHg. Cardiac catheterization 2015 revealed 50% LAD stenosis otherwise unremarkable Currently holding home medications amiodarone 200 mg by mouth daily. doxazosin 2 mill grams daily and enalapril 20 daily. Resume Amio IV bolus and gtt for Afib with RVR. 06/24. Eliquis on hold for trach Metoprolol 50 mg twice a day. As needed labetalol, hydralazine and Nitropaste ordered Continue Bumex 1 mg daily Troponin peaked at 0.49. Downward trending. Followed by Dr. Mccormack/cardiology Resp: Acute hypoxic respiratory failure Anterior airway Likely CHINO not on CPAP PRVC 18/600/1/5/40 Ventilator bundle Albuterol/ipratropium aerosols every 6 hours with albuterol every 2 hours. Dyspnea Chest x-ray right middle lobe infiltrates likely aspiration Tracheostomy in OR with Dr. Alexandra martinez Weaning Decadron to discontinue for airway edema GI: Glucerna 1.5 goal 50 cc an hour goal. NPO for trach KUB 06/22 nonspecific. Metoclopramide 5 mg IV every 8 hours Pantoprazole 40 mg IV daily for GI prophylaxis Relistor 1 bowel regimen on 06/21. having BM : Anderson catheter for accurate I's and O's in a critically ill patient Endo: Diabetes mellitus Sliding-scale insulin/moderate regimen with Accu-Cheks every 6 hours to maintain euglycemia Renal: Right renal cyst Chronic kidney disease stage III Creatinine currently 1.43. Monitor urine output Accurate I's and O's Heme: Leukocytosis Chronic thrombocytopenia Chronic Apixaban use Status post bone marrow biopsy. Follow-up on results. Dr. Aguilera/hematology following Resumed 5 mg twice a day apixaban on 06/22, now on hold for trach ID: Probable HCAP/aspiration Monitor for infection sputum culture 06/20 GNR Empirically on cefepime/Flagyl appropriate renal dosaging. MSK: 2 frontal teeth during intubation removed Elevated BMI 2 frontal teeth where dislodged during intubation attempts by ED providers on prior to my attempt, and intubation Weight loss encouraged FEN: Hyper-magnesium Replace electrolytes as clinically indicated. Access - Right IJ CVL day 8 - Right femoral artery line day- DCd 06/23 Prophylaxis - GI - pantoprazole- - DVT - SCD/Apixaban on hold for trach Level III follow-up tracheostomy by Niesha Rosales MD Jun 24, 2017 08:52
[2017-06-24] MEDS: TOPIRAMATE 100 MG TAB PO SCH (08:56)
[2017-06-24] MEDS: CEFEPIME INJ 2,000 MG in SODIUM CHLORIDE 0.9% INJ 100 ML IV SCH ×2 (08:57→21:39)
[2017-06-24] MEDS: SODIUM CHLORIDE 0.9% FLUSH 10 ML FLUSH IV FLUSH SCH ×2 (09:00→20:49)
[2017-06-24] MEDS: DOCUSATE SODIUM 50 MG/SENNA 8.6 MG TAB PO SCH ×2 (09:00→20:50)
[2017-06-24] MEDS: METOPROLOL TARTRATE 50 MG TAB PO SCH ×2 (09:00→20:49)
[2017-06-24] MEDS ORDERED: DEXMEDETOMIDINE INJ 200 MCG in SODIUM CHLORIDE 0.9% INJ 50 ML IV PRN (09:00)
[2017-06-24] MEDS: DEXAMETHASONE SOD PHOS 4 MG/ML VIAL IV PUSH SCH (09:01)
[2017-06-24] MEDS: PANTOPRAZOLE SODIUM 40 MG VIAL IV SCH (09:01)
[2017-06-24] MEDS: BUMETANIDE 1 MG TAB PO SCH (09:03)
[2017-06-24] MEDS ORDERED: AMIODARONE INJ 150 MG in DEXTROSE 5% IN WATER 100ML INJ 100 ML IV ONE ×4 (11:00→11:15)
--- NOTE | 2017-06-24 11:07 | PD.ONC.PN ---
Subjective Subjective Remarks Afebrile overnight. Patient remains intubated, sedated. failed CPAP trials this morning. trach planned for this afternoon. Objective Data Date Time Temp Pulse Resp B/P (MAP) Pulse Ox O2 Delivery O2 Flow Rate FiO2 06/24/17 10:00 135 06/24/17 08:23 100 40 06/24/17 08:00 99.3 102 14 125/89 (101) 96 06/24/17 08:00 102 06/24/17 08:00 40 06/24/17 06:00 105 06/24/17 04:06 95 40 06/24/17 04:00 87 06/24/17 04:00 40 06/24/17 04:00 98.6 87 14 141/80 (100) 97 06/24/17 02:00 81 06/24/17 00:00 40 06/24/17 00:00 98.8 96 14 127/86 (100) 97 06/24/17 00:00 96 06/23/17 23:50 98 40 06/23/17 22:00 92 06/23/17 20:00 40 06/23/17 20:00 105 06/23/17 20:00 98.6 95 14 120/84 (96) 95 06/23/17 19:51 96 40 06/23/17 18:00 82 06/23/17 16:08 97 40 06/23/17 16:00 98.6 82 14 146/94 (111) 97 06/23/17 16:00 80 06/23/17 16:00 50 06/23/17 14:00 80 06/23/17 12:00 50 06/24/17 06/24/17 06/24/17 06:59 14:59 22:59 Intake Total 1286 ml 44 ml Output Total 1850 ml Balance -564 ml 44 ml Result Diagram: 06/24/17 0300 06/24/17 0300 Laboratory Results Laboratory Tests Test 06/24/17 03:00 White Blood Count 12.0 TH/MM3 Red Blood Count 4.93 MIL/MM3 Hemoglobin 14.0 GM/DL Hematocrit 44.1 % Mean Corpuscular Volume 89.4 FL Mean Corpuscular Hemoglobin 28.5 PG Mean Corpuscular Hemoglobin Concent 31.9 % Red Cell Distribution Width 14.5 % Platelet Count 89 TH/MM3 Mean Platelet Volume 11.2 FL Neutrophils (%) (Auto) 72.9 % Lymphocytes (%) (Auto) 11.7 % Monocytes (%) (Auto) 12.8 % Eosinophils (%) (Auto) 2.2 % Basophils (%) (Auto) 0.4 % Neutrophils # (Auto) 8.7 TH/MM3 Lymphocytes # (Auto) 1.4 TH/MM3 Monocytes # (Auto) 1.5 TH/MM3 Eosinophils # (Auto) 0.3 TH/MM3 Basophils # (Auto) 0.0 TH/MM3 CBC Comment AUTO DIFF Differential Comment AUTO DIFF CONFIRMED Platelet Estimate LOW Platelet Morphology Comment ENLARGED Blood Urea Nitrogen 43 MG/DL Creatinine 1.43 MG/DL Random Glucose 97 MG/DL Total Protein 5.9 GM/DL Albumin 2.4 GM/DL Calcium Level 8.1 MG/DL Phosphorus Level 2.9 MG/DL Magnesium Level 2.7 MG/DL Alkaline Phosphatase 73 U/L Aspartate Amino Transf (AST/SGOT) 24 U/L Alanine Aminotransferase (ALT/SGPT) 51 U/L Total Bilirubin 0.5 MG/DL Sodium Level 143 MEQ/L Potassium Level 3.8 MEQ/L Chloride Level 107 MEQ/L Carbon Dioxide Level 28.8 MEQ/L Anion Gap 7 MEQ/L Estimat Glomerular Filtration Rate 62 ML/MIN Culture Results Microbiology Date/Time Source Procedure Growth Status 06/22/17 17:00 Bronchial Washings Left Lower Lobe Fungal Smear - Final NO FUNGAL ELEMENTS SEEN. Resulted 06/22/17 17:00 Bronchial Washings Left Lower Lobe Fungal Culture Pending Resulted 06/22/17 17:00 Bronchial Washings Left Lower Lobe Acid Fast Stain Pending Received 06/22/17 17:00 Bronchial Washings Left Lower Lobe Mycobacterial Culture Pending Received 06/22/17 17:00 Bronchial Washings Left Lower Lobe Gram Stain - Final Resulted 06/22/17 17:00 Bronchial Washings Left Lower Lobe Bronchial Culture - Preliminary NO GROWTH IN 24 HOURS. Resulted Administered Medications Medications (Trade) Dose Ordered Sig/Ashok Route PRN Reason Start Time Stop Time Status Last Admin Dose Admin Apixaban (Eliquis) 5 mg BID PO 06/14/17 09:00 Future hold 06/23/17 09:00 Bumetanide (Bumetanide) 1 mg DAILY PO 06/14/17 10:00 06/24/17 09:03 Metoprolol Tartrate (Lopressor) 100 mg Q12HR PO 06/14/17 21:00 Future Hold 06/16/17 20:58 Enalapril Maleate (Vasotec) 10 mg DAILY PO 06/15/17 09:00 Future Hold 06/16/17 09:33 Topiramate (Topamax) 100 mg DAILY PO 06/14/17 11:00 06/24/17 08:56 Tramadol HCl (Ultram) 50 mg Q6H PRN PO pain > 5 06/15/17 21:15 Future Hold 06/16/17 09:34 Chlorhexidine Gluconate (Peridex 0.12% Liq) 15 ml BID@08,20 MT 06/17/17 20:00 06/24/17 08:00 Propofol 100 ml @ 0 mls/hr TITRATE IV 06/17/17 14:15 06/24/17 08:55 Fentanyl Citrate 250 ml @ 0 mls/hr TITRATE IV 06/17/17 14:15 06/22/17 13:17 Phenylephrine HCl 160 mg/Dextrose 500 ml @ 0 mls/hr TITRATE IV 06/17/17 14:15 06/19/17 01:28 Sodium Chloride 1,000 ml @ 20 mls/hr Q24H IV 06/17/17 14:00 06/23/17 02:41 Sodium Chloride (NS Flush) 2 ml BID IV FLUSH 06/17/17 21:00 06/24/17 09:00 Pantoprazole Sodium (Protonix Inj) 40 mg DAILY IV 06/18/17 09:00 06/24/17 09:01 Artificial Tears (Tears Naturale Opth Soln) 1 drop TID EACH EYE 06/17/17 18:00 06/21/17 16:29 Ondansetron HCl (Zofran Inj) 4 mg Q6H PRN IV NAUSEA OR VOMITING 06/17/17 14:15 06/22/17 08:22 Chlorhexidine Gluconate (Chlorhexidine 2% Cloth) Taper DAILY@04 TOP 06/18/17 04:00 06/14/18 03:59 06/23/17 02:42 Senna/Docusate Sodium (Marilee-Colace) 1 tab BID PO 06/17/17 21:00 06/23/17 20:36 Magnesium Hydroxide (Milk Of Magnesia Liq) 30 ml Q12H PRN PO MILD - MODERATE CONSTIPATION 06/17/17 14:15 06/21/17 11:21 Lactulose (Lactulose Liq) 30 ml DAILY PRN PO SEVERE CONSITIPATION 06/17/17 14:15 06/21/17 11:21 Labetalol HCl (Trandate Inj) 10 mg Q1HR PRN IV PUSH SBP>160, DBP>90, HR>65 06/18/17 08:45 06/18/17 18:36 Hydralazine HCl (Apresoline Inj) 10 mg Q1HR PRN IV PUSH SBP>160, DBP>90 06/18/17 08:45 06/21/17 03:41 Nitroglycerin (Nitroglycerin 2% Oint) 2 inch Q6HR PRN TOPICAL SBP>160, DBP>90 06/18/17 08:45 06/18/17 13:00 Cefepime HCl 2000 mg/Sodium Chloride 100 ml @ 200 mls/hr Q12H IV 06/18/17 10:00 06/24/17 08:57 Metronidazole 100 ml @ 100 mls/hr Q8H IV 06/18/17 11:00 06/24/17 03:00 Metoprolol Tartrate (Lopressor) 50 mg Q12HR PO 06/18/17 09:15 06/24/17 09:00 Metoclopramide HCl (Reglan Inj) 5 mg Q8HR IV PUSH 06/22/17 15:45 06/24/17 05:41 Albuterol/ Ipratropium (Duoneb Neb) 1 ampule Q6HR NEB NEB 06/23/17 10:00 06/24/17 03:28 Dexamethasone Sodium Phosphate (Decadron Inj) 4 mg DAILY IV PUSH 06/23/17 09:00 06/25/17 08:59 06/24/17 09:01 Objective Remarks GENERAL: Obese male, intubated and sedated, supine in hospital bed. SKIN: Warm and dry. HEAD: Normocephalic. EYES: No injection or drainage. NECK: Supple, trachea midline. CARDIOVASCULAR: Regular rate and rhythm RESPIRATORY: anterior lopez clear. on mechanical ventilation GASTROINTESTINAL: Abdomen nondistended. EXTREMITIES: No cyanosis NEUROLOGICAL: intubated, sedated Assessment/Plan Problem List: (1) Thrombocytopenia ICD Codes: D69.6 - Thrombocytopenia, unspecified Status: Chronic Plan: --?ITP --Patient has long-standing history of thrombocytopenia, dating back to 2003. --s/p bone marrow biopsy in , 06/17. pathology shows hypercellular bone marrow (2) Atrial fibrillation ICD Codes: I48.91 - Unspecified atrial fibrillation Status: Chronic Plan: -- on Eliquis (on hold for trach placement 06/24) Assessment 57-year-old male admitted with generalized weakness and nausea. Hematology consulted for thrombocytopenia. After patient's bone marrow biopsy on 06/17, he became hypoxic and was intubated. Now in [facility] on mechanical ventilation. Plan 1. monitor CBC 2. supportive care Gretta Robles Jun 24, 2017 11:07
[2017-06-24] MEDS: AMIODARONE INJ 450 MG in DEXTROSE 5% IN WATE(EXCEL) INJ 241 ML IV SCH ×4 (11:46→20:33)
[2017-06-24] MEDS ORDERED: LIDOCAINE 2%/EPINEPHrine PF 1:200,000 20ML SDV ONE (13:10)
--- NOTE | 2017-06-24 15:44 | MP ---
cc: KIKE DIAZ MD DATE OF SURGERY 06/24/2017 PREOPERATIVE DIAGNOSES Respiratory failure. Cardiac failure. Coronary artery disease. CHF. POSTOPERATIVE DIAGNOSES Respiratory failure. Cardiac failure. Coronary artery disease. CHF. PROCEDURE 1. Tracheostomy Blue Rhino. 2. Bronchoscopy. SURGEON MD Aleksandr ANESTHESIA General. ESTIMATED BLOOD LOSS 5 cc. PROCEDURE The patient was prepped and draped in the usual fashion, the bronchoscope introduced by Anesthesia. The incision was made anterior neck vertically, deepened down. The strap muscles are later retracted laterally. The thyroid isthmus is fairly large and the right angle was placed underneath and the thyroid isthmus is then transected with cautery. The trachea is now reached. AngioCath is now placed between second and third tracheal ring and then a guidewire inserted. This was followed with the bronchoscopy. Over the guidewire the punch dilator was placed and then the large Blue Rhino dilator followed by the tracheal cannula. End-tidal CO2 was checked, tracheal cannula connected to the ventilator and secured in place with 2-0 Prolene and straps around the neck. The patient did have an episode of possibly electromechanical dissociation and pulseless electrical activity lasting no longer than 3 seconds and the patient was brought back immediately with a chest pump and some epinephrine. Kike Diaz SJ/SSB /2:35 PM /3:28 PM
--- NOTE | 2017-06-24 16:15 | PD.PROCEDR ---
Procedure Note Procedure REASON FOR PROCEDURE Invasive blood pressure monitoring for hypotension PROCEDURE PERFORMED Right axillary arterial catheter placement CONSENT Emergency procedure for shock DESCRIPTION OF THE PROCEDURE The patient was placed in supine, position. The right axillary area was exposed and cleansed with ChloraPrep, times two. Sterile drape was used to cover the patient, with the site exposed, under sterile conditions including cap , face mask, sterile gown, and sterile gloves. The introducer needle was inserted with negative pressure in syringe and arterial flash was obtained. The guide wire was then advanced and the needle was removed. Using Seldinger technique the 20 G arterial catheter was advanced over the guide wire. The guide wire was removed. Good arterial wave form noted after connecting to transducer. Antibiotic disc was placed around arterial line line at puncture site. The arterial line was secured to the skin with one interrupted 2.0 silk sutures. COMPLICATIONS: No apparent complications ESTIMATED BLOOD LOSS: Less than 4 cc. Niesha Fatima MD Jun 24, 2017 16:15
[2017-06-24 16:35] LABS: BLOOD GAS BASE EXCESS -7.3 mmol/L (-2-2); BLOOD GAS CARBOXYHEMOGLOBIN 0.6 % (0-4); BLOOD GAS HCO3 16 mmol/L (22-26); BLOOD GAS METHEMOGLOBIN 0.5 % (0-2); BLOOD GAS O2 HGB SATURATION 99 % (90-100); BLOOD GAS PCO2 25 mmHg (38-42); BLOOD GAS PO2 303 mmHG (61-120); BLOOD GAS TOTAL HGB 14.7 G/DL (12.0-16.0); TEMP CORR TO 98.6
[2017-06-24 16:36] LABS: CRITICAL VALUE YES; DRAW SITE ALINE; FIO2 100 %; OXYGEN DEVICE VENT; STAT NO
[2017-06-24] MEDS ORDERED: SODIUM CHLOR 0.9% 1000 ML INJ 1,000 ML IV ONE ×2 (16:45)
[2017-06-24] MEDS ORDERED: SODIUM BICARBONATE 8.4% INJ 50 MEQ/50 ML SYR IV PUSH ONE (17:00)
[2017-06-24] MEDS ORDERED: NOREPINEPHRINE-DEXTROSE DRIP 250 ML IV PRN (19:30)
[2017-06-24] MEDS ORDERED: TERBUTALINE INJ 1 MG/ML AMP SQ PRN (19:30)
[2017-06-24] MEDS ORDERED: NOREPINEPHRINE 4 MG/D5W 250 ML IV PRN (19:45)
[2017-06-25] VITALS (20 sets, daily range): BP systolic 100–138; BP diastolic 61–82; PULSE 85–107; RESP 14–30; TEMP 97.6–99.5; O2SAT 95–100
[2017-06-25] MEDS: PROPOFOL 1000 MG/100 ML INJ 100 ML IV SCH (00:41)
[2017-06-25] MEDS: SODIUM CHLOR 0.9% 1000 ML INJ 1,000 ML IV SCH ×3 (01:25→22:50)
[2017-06-25] MEDS: metroNIDAZOLE 500 MG INJ 100 ML IV SCH ×3 (02:50→18:20)
[2017-06-25] MEDS: RESP: ALBUTEROL 2.5 MG/IPRATROPIUM 0.5 MG NEB (SCH) NEB ×3 (04:03→20:24)
[2017-06-25] MEDS: INSULIN NovoLIN REGULAR SUPPLEMENTAL SCALE SQ SCH ×3 (05:20→17:29)
[2017-06-25 05:31] LABS: AUTOMATED NEUTROPHIL # 11.1 TH/MM3 (1.8-7.7); BASOPHIL % 0.3 % (0.0-2.0); EOSINOPHIL # 0.3 TH/MM3 (0-0.4); EOSINOPHIL % 2.1 % (0.0-4.0); HEMATOCRIT 41.7 % (39.0-51.0); LYMPHOCYTE # 1.9 TH/MM3 (1.0-4.8); MEAN CELL VOLUME 88.6 FL (80.0-100.0); MEAN CORPUSCULAR HEMOGLOBIN 28.2 PG (27.0-34.0); MEAN CORPUSCULAR HGB CONC 31.8 % (32.0-36.0); MONO % 15.1 % (0.0-8.0); NEUT % 70.5 % (16.0-70.0); PLATELET COUNT 99 TH/MM3 (150-450); WHITE BLOOD COUNT 15.8 TH/MM3 (4.0-11.0)
[2017-06-25] MEDS: METOCLOPRAMIDE HCL 10 MG/2 ML VIAL IV PUSH SCH ×3 (05:44→20:50)
[2017-06-25 05:45] LABS: HEMO FLAGS AUTO DIFF
[2017-06-25 05:57] LABS: ANION GAP 10 MEQ/L (5-15); AST (GOT) 114 U/L (15-37); BLOOD UREA NITROGEN 58 MG/DL (7-18); CHLORIDE 107 MEQ/L (98-107); GLOMERULAR FILTRATION RATE 36 ML/MIN (>89); MAGNESIUM 2.6 MG/DL (1.5-2.5); POTASSIUM 3.8 MEQ/L (3.5-5.1); SODIUM (NA) 139 MEQ/L (136-145)
[2017-06-25 05:59] LABS: ALT (GPT) 142 U/L (12-78)
[2017-06-25 06:00] LABS: ALKALINE PHOSPHATASE 74 U/L (45-117); TOTAL BILIRUBIN ADULT 0.6 MG/DL (0.2-1.0)
--- NOTE | 2017-06-25 06:23 | RADRPT ---
EXAM DATE/TIME: 06/25/2017 04:52 [place] COMPARISON: CHEST SINGLE AP, June 24, 2017, 3:55. INDICATIONS : Respiratory disease. MEDICAL HISTORY : None. SURGICAL HISTORY : None. ENCOUNTER: Subsequent ACUITY: 1 week PAIN SCORE: Non-responsive. LOCATION: Bilateral chest FINDINGS: A single view of the chest demonstrates cardiomegaly. Nasogastric tube enters stomach. Tracheostomy i n good position. Right central line in superior vena cava. Basal airspace disease, left greater than right similar to June 24. CONCLUSION: 1. Support apparatus unchanged in good position. Basilar airspace disease similar to June 24. Anderson Raymond MD on June 25, 2017 at 6:20 Board Certified Radiologist. This report was verified electronically.
[2017-06-25 07:26] LABS: BANDS 2 % (0-6); CORRECTED NUCLEATED RBC 1 /100 WBC (0-0); EOSINOPHILS 3 % (0-4); MYELOCYTES 1 % (0-0); PLATELET ESTIMATE SMEAR LOW (NORMAL); PLATELET MORPHOLOGY NORMAL (NORMAL); POLYS (SEG NEUTROPHILS) 79 % (16-70); SCAN/DIFF FINAL DIFF MANUAL; WBC DIFF SAMPLE 100
[2017-06-25] MEDS: TOPIRAMATE 100 MG TAB PO SCH (08:22)
[2017-06-25] MEDS: DOCUSATE SODIUM 50 MG/SENNA 8.6 MG TAB PO SCH ×2 (08:22→20:49)
[2017-06-25] MEDS: BUMETANIDE 1 MG TAB PO SCH (08:22)
[2017-06-25] MEDS: SODIUM CHLORIDE 0.9% FLUSH 10 ML FLUSH IV FLUSH SCH ×2 (08:22→20:49)
[2017-06-25] MEDS: PANTOPRAZOLE SODIUM 40 MG VIAL IV SCH (08:22)
[2017-06-25] MEDS: CHLORHEXIDINE 0.12% (ORAL KIT) 15 ML CUP MT SCH ×2 (08:22→20:00)
[2017-06-25] MEDS: ARTIFICIAL TEARS OPTH SOLN 15 ML BTL EACH EYE SCH ×3 (08:23→17:29)
[2017-06-25] MEDS: METOPROLOL TARTRATE 50 MG TAB PO SCH ×2 (08:40→20:49)
[2017-06-25] MEDS: CEFEPIME INJ 2,000 MG in SODIUM CHLORIDE 0.9% INJ 100 ML IV SCH ×2 (09:33→20:51)
--- NOTE | 2017-06-25 09:35 | HHI.CCPN ---
Subjective Remarks/Hospital Course This is a 57-year-old -[place] male. Date of admission 06/14/2017. Date of consultation 06/17/2017. Past medical history includes poor dentition, seizure disorder NOS, atrial fibrillation, nonischemic cardiomyopathy ejection fraction 50-20%, chronic kidney disease stage III, hypertension, diabetes, morbid obesity and chronic venous insufficiency. Patient also is known history of chronic thrombocytopenia. Patient was admitted really on 06/14 with shortness of breath. Dr. Mccormack/cardiology was consulted. Poor candidate for AICD secondary to noncompliance. Recommended removal of all teeth outpatient with possible placement after that. Resume home medications. Echocardiogram revealed EF 20%. Dilated RV/LV. Moderate MR/TR. Pulmonary arterial pressures measures 50-60 mmHg. During this hospitalization, he was also symptomatically bradycardia his medicines have been adjusted see orders. Dr. Aguilera from hematology was consulted due to chronic trauma cytopenia since 2003. Today, a bone marrow biopsy was performed. Patient was documented received fentanyl and Versed during procedure. Received 2.4 mg Narcan post procedures patient was somnolent. ED physicians came to intubate patient received 20 mg etomidate, 150 mg succinylcholine. Patient was hypoxic. Please see intubation note and code note by Dr. Niesha Fatima. Patient is currently on Yosvany-Synephrine drip. Central line placed emergently due to hemodynamic instability. Arterial line placed by my colleague. 06/18: Arousable to voice and moving all [address] head no acute findings. Troponin peaked at 0.49. Creatinine actually improved. We'll attempt spontaneous breathing trials today. Added when necessary's for blood pressure. 06/19: Peripheral perfusion acceptable. Heart rate better controlled. Start spontaneous breathing trials. 06/20: Improved respiratory effort. Push for extubation. 06/21: Awake and arousable on the ventilator. Tolerating tube feeding. No BM. Afebrile. 06/22: Afebrile. On sedation vacation yesterday was following commands by wiggling toes and squeeze bilateral upper extremities. However, brief one dose patient becomes agitated and gags on ET tube. 06/23: Yesterday, patient coughed up tube into vocal cord region. Unable to deflate balloon. Patient's airway was exchanged by anesthesiology. Saturations remained above 90% at all times. After a tube change, mucous plugging to mainstream. Plan emergent bronchus with clearance of secretions. Sample sent. Currently sedating appears comfortable ventilator. Will need tracheostomy. Mother notified and in agreement. Subjective 06/24: Remains intubated sedated, off sedation patient follows commands 4. But failed CPAP trial today due to severe tachycardia and agitation. Plan for OP tracheostomy today 06/25: Brief PA arrest after tracheostomy yesterday in the OR-total duration 2 minutes. No evidence of anoxic injury. BUN/creatinine is 55/2.3 increased from 43/1.4 most likely from ATN secondary to shock. Transaminase elevation also secondary to shock. Objective Vital Signs Date Time Temp Pulse Resp B/P (MAP) Pulse Ox O2 Delivery O2 Flow Rate FiO2 06/25/17 08:00 85 06/25/17 07:28 102/68 06/25/17 04:30 50 06/25/17 04:06 99 06/25/17 04:00 98.6 14 06/24/17 20:44 Ventilator Intake and Output 06/25/17 06/25/17 06/26/17 08:00 16:00 00:00 Intake Total 2006 ml Output Total 600 ml Balance 1406 ml Result Diagram: 06/25/17 0500 06/25/17 0500 Other Results Microbiology Date/Time Source Procedure Growth Status 06/22/17 17:00 Bronchial Washings Left Lower Lobe Gram Stain - Final Complete 06/22/17 17:00 Bronchial Washings Left Lower Lobe Bronchial Culture - Final LIGHT GROWTH NORMAL RESPIRATORY HENRY Complete Laboratory Tests Test 06/24/17 16:20 Blood Gas Puncture Site KINGA Blood Gas Patient Temperature 98.6 Blood Gas HCO3 16 mmol/L (22-26) Blood Gas Base Excess -7.3 mmol/L (-2-2) Blood Gas Oxygen Saturation 99 % (90-100) Arterial Blood pH 7.43 (7.380-7.420) Arterial Blood Partial Pressure CO2 25 mmHg (38-42) Arterial Blood Partial Pressure O2 303 mmHG (61-120) Arterial Blood Oxygen Content 21.0 Vol % (12.0-20.0) Arterial Blood Carboxyhemoglobin 0.6 % (0-4) Arterial Blood Methemoglobin 0.5 % (0-2) Blood Gas Hemoglobin 14.7 G/DL (12.0-16.0) Oxygen Delivery Device VENT Blood Gas Ventilator Setting PRVC/14/600/8/100 Blood Gas Inspired Oxygen 100 % Imaging Last Impressions Chest X-Ray 06/22/17 0600 Signed Impressions: Service Date/Time: Thursday, June 22, 2017 03:49 - CONCLUSION: 1. Slight increase in basilar airspace disease since June 19. Endotracheal tube and nasogastric tube unchanged. Anderson Raymond MD Abdomen X-Ray 06/22/17 0000 Signed Impressions: Service Date/Time: Thursday, June 22, 2017 15:43 - CONCLUSION: Nonspecific abdomen. K. Mauricio Culp MD Head CT 06/18/17 0000 Signed Impressions: Service Date/Time: Sunday, June 18, 2017 00:48 - CONCLUSION: Negative exam. No evidence of intracranial hemorrhage. Ronni Capps MD Bone Biopsy CT 06/17/17 0000 Signed Impressions: Service Date/Time: Saturday, June 17, 2017 12:35 - CONCLUSION: Bone marrow aspiration and biopsy complicated by intubation and resuscitation. Pathology is pending. Rell Valentin MD FACR Abdomen Ultrasound 06/16/17 0000 Signed Impressions: Service Date/Time: Friday, June 16, 2017 18:13 - CONCLUSION: Limited sonographic windows due to patient body habitus and bowel gas. Right renal cyst. Visualized portions of the abdomen otherwise within normal limits. Jose Bruno MD Lower Extremity Ultrasound 06/14/17 0000 Signed Impressions: Service Date/Time: Wednesday, June 14, 2017 08:15 - CONCLUSION: Normal examination. Kushal Camacho MD Objective Remarks GENERAL: 57-year-old male, critically ill s/p trach SKIN: Cool and dry. Rash left phillips. HEAD: Noted front 2 teeth missing status post intubation. Normocephalic. EYES: Pupils equal and round about 2 mm bilaterally and slightly reactive. ENT: No nasal bleeding or discharge. Mucous membranes pink and moist. NECK: Trachea midline. No JVD. New trach site clean with no significant bleeding CARDIOVASCULAR: Irreg irreg. S1, S2. Intermittently tachycardic RESPIRATORY: Diminished breath sounds throughout. No wheezing appreciated. GASTROINTESTINAL: Abdomen soft, non-tender, obese. MUSCULOSKELETAL: Extremities with nonpitting lower extremity edema NEUROLOGICAL: Awake, eyes are open spontaneously. he is following commands by wiggling toes and squeezing his bilaterally on lightening sedation Procedures None A/P Assessment and Plan Neuro/Psych: Seizure disorder NOS Cardiac arrest x2 without evidence of anoxic injury On propofol and fentanyl drips daily sedation vacation No evidence of anoxic brain injury. Following commands 4. EEG 06/23 Normal study. Goal of RA SS -0. Head CT 06/18 revealed no acute intracranial findings Currently on Topamax 100 mg by mouth daily for underlying seizure disorder CV: Cardiac arrest x2 (PEA) Cardiogenic shock-resolved Nonischemic cardiomyopathy Ejection fraction 15-20% Atrial fibrillation with RVR Chronic systolic heart failure Pulmonary hypertension History of chronic atrial fibrillation Hypertension Hospitalization with symptomatically bradycardia Sustained brief PEA 2 min in OR post trach 06/24, prev PA arrest due to hypoxia in CT 06/17/17 Cardiogenic shock is now resolved and wean off the Levophed 2-D echocardiogram revealed EF 20%. Dilated LV/RV. Moderate MR/TR. Pulmonary arterial pressures 50-60 mmHg. Cardiac catheterization 2015 revealed 50% LAD stenosis otherwise unremarkable Holding home medications amiodarone 200 mg by mouth daily, doxazosin 2 mill grams daily and enalapril 20 daily. Resumed Amio IV bolus and gtt for Afib with RVR. 06/24. Eliquis on hold for trach , resume today Metoprolol 50 mg twice a day hold for hypotension. As needed labetalol, hydralazine and Nitropaste ordered DC Bumex 1 mg daily due to acute kidney failure. Normal saline 75 mL/hr for 24 hours Troponin peaked at 0.49. Downward trending. Followed by Dr. Mccormack/cardiology Resume Eliquis today Resp: Acute hypoxic respiratory failure Anterior airway Likely CHINO not on CPAP PRVC 18/600/11/08/39, CPAP 15/5. Attempt 2 hours TP. Ventilator bundle Albuterol/ipratropium aerosols every 6 hours with albuterol every 2 hours. Chest x-ray right middle lobe infiltrates likely aspiration s/p Tracheostomy in OR with 06/24 s/p Decadron to discontinue for airway edema Difficult intubation in CT 06/27/17 GI: Glucerna 1.5 goal 50 cc an hour goal. Resume tube feeds after placing NGT Will try to avoid PEG due to body habitus. Metoclopramide 5 mg IV every 8 hours Pantoprazole 40 mg IV daily for GI prophylaxis Relistor 1 bowel regimen on 06/21. having BM : Anderson catheter for accurate I's and O's in a critically ill patient Endo: Diabetes mellitus Sliding-scale insulin/moderate regimen with Accu-Cheks every 6 hours to maintain euglycemia Renal: Right renal cyst Chronic kidney disease stage III Creatinine 2.3 today due to PEA arrest, ATN 06/24/17. Monitor urine output Accurate I's and O's DC Bumex Heme: Leukocytosis Chronic thrombocytopenia Chronic Apixaban use Status post bone marrow biopsy. Follow-up on results. Dr. Aguilera/hematology following Resumed 5 mg twice a day apixaban on 06/22, held for trach, resume again 06/25 ID: HCAP/aspiration pneumonia sputum culture 06/20 GNR Empirically on cefepime/Flagyl appropriate renal dosing MSK: 2 frontal teeth during intubation removed Elevated BMI 2 frontal teeth where dislodged during intubation attempts by ED providers on prior to my attempt, and intubation FEN: Hyper-magnesium Replace electrolytes as clinically indicated. Access - Right IJ CVL day 9 - Right femoral artery line day- DCd 06/23, R axillary art line placed 06/24/17 Prophylaxis - GI - pantoprazole- - DVT - SCD/Apixaban CCT 35 Niesha Fatima MD Jun 25, 2017 09:35
[2017-06-25] MEDS: hydrALAZINE HCL 20 MG/ML VIAL IV PUSH PRN (10:49)
[2017-06-25] MEDS: AMIODARONE INJ 450 MG in DEXTROSE 5% IN WATE(EXCEL) INJ 241 ML IV SCH ×4 (11:20→22:12)
--- NOTE | 2017-06-25 14:17 | PD.CAR.PN ---
CVT Progress Note Subjective/Hospital Course: Consult received Patient will be taken to the operating room for tracheostomy in the face of his size and anatomy Pacheco Morris 06/25/17 Patient status post the Blue Rhino tracheostomy Incision is clean and dry with no bleeding Tracheostomy in good position Will sign off Naveen Morris Objective: Vital Signs Date Time Temp Pulse Resp B/P (MAP) Pulse Ox O2 Delivery O2 Flow Rate FiO2 06/25/17 13:06 96 50 06/25/17 12:00 102 06/25/17 12:00 50 06/25/17 12:00 98.1 102 14 97 110/73 (85) 06/25/17 11:20 104 114/73 06/25/17 10:00 102 06/25/17 09:34 95 50 06/25/17 09:34 50 06/25/17 09:31 98 50 06/25/17 08:30 50 06/25/17 08:00 97.6 85 14 99 127/82 (97) 06/25/17 08:00 85 06/25/17 08:00 50 06/25/17 07:28 81 102/68 06/25/17 06:00 102 06/25/17 04:30 50 06/25/17 04:06 99 50 06/25/17 04:00 60 06/25/17 04:00 103 06/25/17 04:00 98.6 103 14 135/80 (98) 100 100/64 (76) 06/25/17 02:00 85 06/25/17 01:28 99 103/70 06/25/17 00:39 100 60 06/25/17 00:00 99.5 92 14 120/61 (80) 100 105/71 (82) 06/25/17 00:00 92 06/25/17 00:00 60 06/24/17 23:00 60 06/24/17 22:00 95 06/24/17 20:44 100 Ventilator 06/24/17 20:37 100 70 06/24/17 20:33 95 91/70 06/24/17 20:00 83 06/24/17 20:00 70 06/24/17 20:00 99.5 89 14 115/84 (94) 100 100/69 (79) 06/24/17 18:00 94 06/24/17 17:32 100 75 8/21/17 16:00 80 06/24/17 16:00 124 06/24/17 16:00 98.6 123 14 120/83 (95) 97 Labs: Laboratory Tests Test 06/25/17 05:00 White Blood Count 15.8 TH/MM3 (4.0-11.0) Red Blood Count 4.70 MIL/MM3 (4.50-5.90) Hemoglobin 13.3 GM/DL (13.0-17.0) Hematocrit 41.7 % (39.0-51.0) Mean Corpuscular Volume 88.6 FL (80.0-100.0) Mean Corpuscular Hemoglobin 28.2 PG (27.0-34.0) Mean Corpuscular Hemoglobin Concent 31.8 % (32.0-36.0) Red Cell Distribution Width 14.0 % (11.6-17.2) Platelet Count 99 TH/MM3 (150-450) Mean Platelet Volume 11.6 FL (7.0-11.0) Neutrophils (%) (Auto) 70.5 % (16.0-70.0) Lymphocytes (%) (Auto) 12.0 % (9.0-44.0) Monocytes (%) (Auto) 15.1 % (0.0-8.0) Eosinophils (%) (Auto) 2.1 % (0.0-4.0) Basophils (%) (Auto) 0.3 % (0.0-2.0) Neutrophils # (Auto) 11.1 TH/MM3 (1.8-7.7) Lymphocytes # (Auto) 1.9 TH/MM3 (1.0-4.8) Monocytes # (Auto) 2.4 TH/MM3 (0-0.9) Eosinophils # (Auto) 0.3 TH/MM3 (0-0.4) Basophils # (Auto) 0.0 TH/MM3 (0-0.2) CBC Comment AUTO DIFF Differential Total Cells Counted 100 Neutrophils % (Manual) 79 % (16-70) Band Neutrophils % 2 % (0-6) Lymphocytes % 7 % (9-44) Monocytes % 8 % (0-8) Eosinophils % 3 % (0-4) Neutrophils # (Manual) 13.0 TH/MM3 (1.8-7.7) Myelocytes 1 % (0-0) Nucleated Red Blood Cells 1 /100 WBC (0-0) Differential Comment FINAL DIFF MANUAL Platelet Estimate LOW (NORMAL) Platelet Morphology Comment NORMAL (NORMAL) Red Cell Morphology Comment NORMAL (NORMAL) Blood Urea Nitrogen 58 MG/DL (7-18) Creatinine 2.28 MG/DL (0.60-1.30) Random Glucose 119 MG/DL (74-106) Total Protein 5.8 GM/DL (6.4-8.2) Albumin 2.4 GM/DL (3.4-5.0) Calcium Level 7.6 MG/DL (8.5-10.1) Magnesium Level 2.6 MG/DL (1.5-2.5) Alkaline Phosphatase 74 U/L (45-117) Aspartate Amino Transf (AST/SGOT) 114 U/L (15-37) Alanine Aminotransferase (ALT/SGPT) 142 U/L (12-78) Total Bilirubin 0.6 MG/DL (0.2-1.0) Sodium Level 139 MEQ/L (136-145) Potassium Level 3.8 MEQ/L (3.5-5.1) Chloride Level 107 MEQ/L (98-107) Carbon Dioxide Level 22.0 MEQ/L (21.0-32.0) Anion Gap 10 MEQ/L (5-15) Estimat Glomerular Filtration Rate 36 ML/MIN (>89) Result Diagram: 06/25/17 0500 06/25/17 0500 Kike Brandon MD Jun 25, 2017 14:17
[2017-06-25] MEDS ORDERED: PHENYLEPHRINE INJ 160 MG in DEXTROSE 5% IN WATE 500 ML INJ 484 ML IV PRN ×2 (15:00)
--- NOTE | 2017-06-25 16:13 | PD.ONC.PN ---
Subjective Subjective Remarks Trach placement yesterday Per Dr Fatima the pt had an episode of respiratory arrest in OR yesterday. On vasopressors. No bleeding Objective Data Date Time Temp Pulse Resp B/P (MAP) Pulse Ox O2 Delivery O2 Flow Rate FiO2 06/25/17 15:48 97 50 06/25/17 14:00 92 06/25/17 13:06 96 50 06/25/17 12:00 102 06/25/17 12:00 50 06/25/17 12:00 98.1 102 14 97 110/73 (85) 06/25/17 11:20 104 114/73 06/25/17 10:00 102 06/25/17 09:34 95 50 06/25/17 09:34 50 06/25/17 09:31 98 50 06/25/17 08:30 50 06/25/17 08:00 97.6 85 14 99 127/82 (97) 06/25/17 08:00 85 06/25/17 08:00 50 06/25/17 07:28 81 102/68 06/25/17 06:00 102 06/25/17 04:30 50 06/25/17 04:06 99 50 06/25/17 04:00 60 06/25/17 04:00 103 06/25/17 04:00 98.6 103 14 135/80 (98) 100 100/64 (76) 06/25/17 02:00 85 06/25/17 01:28 99 103/70 06/25/17 00:39 100 60 06/25/17 00:00 99.5 92 14 120/61 (80) 100 105/71 (82) 06/25/17 00:00 92 06/25/17 00:00 60 06/24/17 23:00 60 06/24/17 22:00 95 06/24/17 20:44 100 Ventilator 06/24/17 20:37 100 70 06/24/17 20:33 95 91/70 06/24/17 20:00 83 06/24/17 20:00 70 06/24/17 20:00 99.5 89 14 115/84 (94) 100 100/69 (79) 06/24/17 18:00 94 06/24/17 17:32 100 75 06/25/17 06/25/17 06/25/17 07:00 15:00 23:00 Intake Total 2006 ml 620 ml Output Total 600 ml Balance 1406 ml 620 ml Result Diagram: 06/25/17 0500 06/25/17 0500 Laboratory Results Laboratory Tests Test 06/24/17 16:20 06/25/17 05:00 Blood Gas Puncture Site KINGA Blood Gas Patient Temperature 98.6 Blood Gas HCO3 16 mmol/L Blood Gas Base Excess -7.3 mmol/L Blood Gas Oxygen Saturation 99 % Arterial Blood pH 7.43 Arterial Blood Partial Pressure CO2 25 mmHg Arterial Blood Partial Pressure O2 303 mmHG Arterial Blood Oxygen Content 21.0 Vol % Arterial Blood Carboxyhemoglobin 0.6 % Arterial Blood Methemoglobin 0.5 % Blood Gas Hemoglobin 14.7 G/DL Oxygen Delivery Device VENT Blood Gas Ventilator Setting PRVC/14/600/8/100 Blood Gas Inspired Oxygen 100 % White Blood Count 15.8 TH/MM3 Red Blood Count 4.70 MIL/MM3 Hemoglobin 13.3 GM/DL Hematocrit 41.7 % Mean Corpuscular Volume 88.6 FL Mean Corpuscular Hemoglobin 28.2 PG Mean Corpuscular Hemoglobin Concent 31.8 % Red Cell Distribution Width 14.0 % Platelet Count 99 TH/MM3 Mean Platelet Volume 11.6 FL Neutrophils (%) (Auto) 70.5 % Lymphocytes (%) (Auto) 12.0 % Monocytes (%) (Auto) 15.1 % Eosinophils (%) (Auto) 2.1 % Basophils (%) (Auto) 0.3 % Neutrophils # (Auto) 11.1 TH/MM3 Lymphocytes # (Auto) 1.9 TH/MM3 Monocytes # (Auto) 2.4 TH/MM3 Eosinophils # (Auto) 0.3 TH/MM3 Basophils # (Auto) 0.0 TH/MM3 CBC Comment AUTO DIFF Differential Total Cells Counted 100 Neutrophils % (Manual) 79 % Band Neutrophils % 2 % Lymphocytes % 7 % Monocytes % 8 % Eosinophils % 3 % Neutrophils # (Manual) 13.0 TH/MM3 Myelocytes 1 % Nucleated Red Blood Cells 1 /100 WBC Differential Comment FINAL DIFF MANUAL Platelet Estimate LOW Platelet Morphology Comment NORMAL Red Cell Morphology Comment NORMAL Blood Urea Nitrogen 58 MG/DL Creatinine 2.28 MG/DL Random Glucose 119 MG/DL Total Protein 5.8 GM/DL Albumin 2.4 GM/DL Calcium Level 7.6 MG/DL Magnesium Level 2.6 MG/DL Alkaline Phosphatase 74 U/L Aspartate Amino Transf (AST/SGOT) 114 U/L Alanine Aminotransferase (ALT/SGPT) 142 U/L Total Bilirubin 0.6 MG/DL Sodium Level 139 MEQ/L Potassium Level 3.8 MEQ/L Chloride Level 107 MEQ/L Carbon Dioxide Level 22.0 MEQ/L Anion Gap 10 MEQ/L Estimat Glomerular Filtration Rate 36 ML/MIN Culture Results Microbiology Date/Time Source Procedure Growth Status 06/22/17 17:00 Bronchial Washings Left Lower Lobe Fungal Smear - Final NO FUNGAL ELEMENTS SEEN. Resulted 06/22/17 17:00 Bronchial Washings Left Lower Lobe Fungal Culture Pending Resulted 06/22/17 17:00 Bronchial Washings Left Lower Lobe Acid Fast Stain - Final NO ACID FAST BACILLI SEEN Resulted 06/22/17 17:00 Bronchial Washings Left Lower Lobe Mycobacterial Culture Pending Resulted 06/22/17 17:00 Bronchial Washings Left Lower Lobe Gram Stain - Final Complete 06/22/17 17:00 Bronchial Washings Left Lower Lobe Bronchial Culture - Final LIGHT GROWTH NORMAL RESPIRATORY HENRY Complete Administered Medications Medications (Trade) Dose Ordered Sig/Ashok Route PRN Reason Start Time Stop Time Status Last Admin Dose Admin Apixaban (Eliquis) 5 mg BID PO 06/14/17 09:00 Future hold 06/23/17 09:00 Enalapril Maleate (Vasotec) 10 mg DAILY PO 06/15/17 09:00 Future Hold 06/16/17 09:33 Topiramate (Topamax) 100 mg DAILY PO 06/14/17 11:00 06/25/17 08:22 Tramadol HCl (Ultram) 50 mg Q6H PRN PO pain > 5 06/15/17 21:15 Future Hold 06/16/17 09:34 Chlorhexidine Gluconate (Peridex 0.12% Liq) 15 ml BID@08,20 MT 06/17/17 20:00 06/25/17 08:22 Propofol 100 ml @ 0 mls/hr TITRATE IV 06/17/17 14:15 06/25/17 00:41 Sodium Chloride 1,000 ml @ 20 mls/hr Q24H IV 06/17/17 14:00 06/23/17 02:41 Sodium Chloride (NS Flush) 2 ml BID IV FLUSH 06/17/17 21:00 06/24/17 09:00 Pantoprazole Sodium (Protonix Inj) 40 mg DAILY IV 06/18/17 09:00 06/25/17 08:22 Artificial Tears (Tears Naturale Opth Soln) 1 drop TID EACH EYE 06/17/17 18:00 06/25/17 13:02 Ondansetron HCl (Zofran Inj) 4 mg Q6H PRN IV NAUSEA OR VOMITING 06/17/17 14:15 06/22/17 08:22 Chlorhexidine Gluconate (Chlorhexidine 2% Cloth) Taper DAILY@04 TOP 06/18/17 04:00 06/14/18 03:59 06/23/17 02:42 Senna/Docusate Sodium (Marilee-Colace) 1 tab BID PO 06/17/17 21:00 06/25/17 08:22 Magnesium Hydroxide (Milk Of Magnesia Liq) 30 ml Q12H PRN PO MILD - MODERATE CONSTIPATION 06/17/17 14:15 06/21/17 11:21 Lactulose (Lactulose Liq) 30 ml DAILY PRN PO SEVERE CONSITIPATION 06/17/17 14:15 06/21/17 11:21 Insulin Human Regular (NovoLIN R SUPPLEMENTAL SCALE) 1 Q6HR SQ 06/17/17 18:00 06/24/17 19:35 Labetalol HCl (Trandate Inj) 10 mg Q1HR PRN IV PUSH SBP>160, DBP>90, HR>65 06/18/17 08:45 06/18/17 18:36 Hydralazine HCl (Apresoline Inj) 10 mg Q1HR PRN IV PUSH SBP>160, DBP>90 06/18/17 08:45 06/25/17 10:49 Nitroglycerin (Nitroglycerin 2% Oint) 2 inch Q6HR PRN TOPICAL SBP>160, DBP>90 06/18/17 08:45 06/18/17 13:00 Cefepime HCl 2000 mg/Sodium Chloride 100 ml @ 200 mls/hr Q12H IV 06/18/17 10:00 06/25/17 09:33 Metronidazole 100 ml @ 100 mls/hr Q8H IV 06/18/17 11:00 06/25/17 10:49 Metoprolol Tartrate (Lopressor) 50 mg Q12HR PO 06/18/17 09:15 06/25/17 08:40 Metoclopramide HCl (Reglan Inj) 5 mg Q8HR IV PUSH 06/22/17 15:45 06/25/17 13:02 Albuterol/ Ipratropium (Duoneb Neb) 1 ampule Q6HR NEB NEB 06/23/17 10:00 06/25/17 09:38 Amiodarone HCl 450 mg/Dextrose 250 ml @ 0 mls/hr CONTINUOUS IV 06/24/17 11:30 06/25/17 11:20 Norepinephrine Bitartrate 250 ml @ 7.5 mls/hr TITRATE PRN IV Maintain MAP > 65 mmHg 06/24/17 19:45 06/25/17 01:28 Sodium Chloride 1,000 ml @ 75 mls/hr [id number] IV 06/25/17 09:30 06/26/17 09:29 06/25/17 09:44 Objective Remarks GENERAL: Obese male, trach midline. No oozing. SKIN: Warm and dry. HEAD: Normocephalic. EYES: No injection or drainage. NECK: Supple, trachea midline. CARDIOVASCULAR: Regular rate and rhythm RESPIRATORY: Clear anteriorly. Breathing unlabored. GASTROINTESTINAL: Abdomen nondistended. EXTREMITIES: No cyanosis NEUROLOGICAL: Tracking with eyes, follows commands. Assessment/Plan Problem List: (1) Thrombocytopenia ICD Codes: D69.6 - Thrombocytopenia, unspecified Status: Chronic Plan: --?ITP --Patient has long-standing history of thrombocytopenia, dating back to 2003. --s/p bone marrow biopsy in , 06/17. pathology shows hypercellular bone marrow (2) Atrial fibrillation ICD Codes: I48.91 - Unspecified atrial fibrillation Status: Chronic Plan: -- Eliquis currently on hold Assessment 57-year-old male admitted with generalized weakness and nausea. Hematology consulted for thrombocytopenia. After patient's bone marrow biopsy on 06/17, he became hypoxic and was intubated. Now in ISC on mechanical ventilation. Plan 1. Pt with acute kidney injury and Eliquis on hold. 2. Monitor kidney function tomorrow. 3. Pt on anticoagulation for Afib, will defer ultimately to cardiology but if kidney function worsening, he would be limited in treatment, likely to start Coumadin. 4. Monitor CBC. Discussed with Dr Fatima. Attending Statement Discussed above. Cont to hold anticoagulation, platelet count stable. Shila Molina Jun 25, 2017 16:13 Cindy Aguilera MD Jun 25, 2017 18:04
[2017-06-25] MEDS: METOPROLOL TARTRATE 5 MG/5 ML VIAL IV PUSH PRN (17:29)
[2017-06-26] VITALS (23 sets, daily range): BP systolic 118–167; BP diastolic 70–77; PULSE 87–110; RESP 14–15; TEMP 99.3–100.4; O2SAT 94–100
[2017-06-26] MEDS: SODIUM CHLOR 0.9% 1000 ML INJ 1,000 ML IV SCH (01:25)
[2017-06-26] MEDS: CHLORHEXIDINE GLUCONATE 2 % 1 PACK (2 CLOTHS) TOP SCH (04:00)
[2017-06-26] MEDS: RESP: ALBUTEROL 2.5 MG/IPRATROPIUM 0.5 MG NEB (SCH) NEB ×4 (04:16→21:42)
[2017-06-26] MEDS: METOCLOPRAMIDE HCL 10 MG/2 ML VIAL IV PUSH SCH ×3 (04:19→21:30)
[2017-06-26] MEDS: metroNIDAZOLE 500 MG INJ 100 ML IV SCH ×3 (04:19→20:16)
[2017-06-26 04:53] LABS: AUTOMATED NEUTROPHIL # 8.4 TH/MM3 (1.8-7.7); BASOPHIL % 0.3 % (0.0-2.0); EOSINOPHIL # 0.5 TH/MM3 (0-0.4); EOSINOPHIL % 4.1 % (0.0-4.0); HEMATOCRIT 38.7 % (39.0-51.0); LYMPH % 10.1 % (9.0-44.0); LYMPHOCYTE # 1.2 TH/MM3 (1.0-4.8); MEAN CELL VOLUME 89.2 FL (80.0-100.0); MEAN CORPUSCULAR HEMOGLOBIN 28.8 PG (27.0-34.0); MEAN CORPUSCULAR HGB CONC 32.3 % (32.0-36.0); MONO % 14.7 % (0.0-8.0); NEUT % 70.8 % (16.0-70.0); PLATELET COUNT 82 TH/MM3 (150-450); RED BLOOD COUNT 4.33 MIL/MM3 (4.50-5.90); RED CELL DISTRIBUTION WIDTH 14.3 % (11.6-17.2); WHITE BLOOD COUNT 11.8 TH/MM3 (4.0-11.0)
[2017-06-26 04:56] LABS: HEMO FLAGS AUTO DIFF
[2017-06-26 05:05] LABS: ANION GAP 9 MEQ/L (5-15); BICARBONATE 23.3 MEQ/L (21.0-32.0); BLOOD UREA NITROGEN 62 MG/DL (7-18); CHLORIDE 111 MEQ/L (98-107); POTASSIUM 3.7 MEQ/L (3.5-5.1); SODIUM (NA) 143 MEQ/L (136-145)
[2017-06-26 05:06] LABS: AST (GOT) 72 U/L (15-37); GLOMERULAR FILTRATION RATE 32 ML/MIN (>89)
[2017-06-26 05:08] LABS: ALKALINE PHOSPHATASE 73 U/L (45-117); ALT (GPT) 131 U/L (12-78); TOTAL BILIRUBIN ADULT 0.9 MG/DL (0.2-1.0)
[2017-06-26] MEDS: INSULIN NovoLIN REGULAR SUPPLEMENTAL SCALE SQ SCH ×4 (06:00→18:00)
[2017-06-26] MEDS: CHLORHEXIDINE 0.12% (ORAL KIT) 15 ML CUP MT SCH ×2 (08:00→20:19)
[2017-06-26 08:07] LABS: SCAN/DIFF AUTO DIFF CONFIRMED
[2017-06-26] MEDS: METOPROLOL TARTRATE 50 MG TAB PO SCH ×2 (08:09→20:18)
[2017-06-26] MEDS: PANTOPRAZOLE SODIUM 40 MG VIAL IV SCH (08:09)
[2017-06-26] MEDS: SODIUM CHLORIDE 0.9% FLUSH 10 ML FLUSH IV FLUSH SCH ×2 (08:09→20:19)
[2017-06-26] MEDS: DOCUSATE SODIUM 50 MG/SENNA 8.6 MG TAB PO SCH ×2 (08:09→20:19)
[2017-06-26] MEDS: TOPIRAMATE 100 MG TAB PO SCH (08:09)
[2017-06-26] MEDS: ARTIFICIAL TEARS OPTH SOLN 15 ML BTL EACH EYE SCH (09:00)
[2017-06-26] MEDS: CEFEPIME INJ 2,000 MG in SODIUM CHLORIDE 0.9% INJ 100 ML IV SCH ×2 (10:16→21:29)
--- NOTE | 2017-06-26 12:05 | HHI.CCPN ---
Subjective Remarks/Hospital Course This is a 57-year-old -[place] male. Date of admission 06/14/2017. Date of consultation 06/17/2017. Past medical history includes poor dentition, seizure disorder NOS, atrial fibrillation, nonischemic cardiomyopathy ejection fraction 50-20%, chronic kidney disease stage III, hypertension, diabetes, morbid obesity and chronic venous insufficiency. Patient also is known history of chronic thrombocytopenia. Patient was admitted really on 06/14 with shortness of breath. Dr. Mccormack/cardiology was consulted. Poor candidate for AICD secondary to noncompliance. Recommended removal of all teeth outpatient with possible placement after that. Resume home medications. Echocardiogram revealed EF 20%. Dilated RV/LV. Moderate MR/TR. Pulmonary arterial pressures measures 50-60 mmHg. During this hospitalization, he was also symptomatically bradycardia his medicines have been adjusted see orders. Dr. Aguilera from hematology was consulted due to chronic trauma cytopenia since 2003. Today, a bone marrow biopsy was performed. Patient was documented received fentanyl and Versed during procedure. Received 2.4 mg Narcan post procedures patient was somnolent. ED physicians came to intubate patient received 20 mg etomidate, 150 mg succinylcholine. Patient was hypoxic. Please see intubation note and code note by Dr. Niesha Fatima. Patient is currently on Yosvany-Synephrine drip. Central line placed emergently due to hemodynamic instability. Arterial line placed by my colleague. 06/18: Arousable to voice and moving all [address] head no acute findings. Troponin peaked at 0.49. Creatinine actually improved. We'll attempt spontaneous breathing trials today. Added when necessary's for blood pressure. 06/19: Peripheral perfusion acceptable. Heart rate better controlled. Start spontaneous breathing trials. 06/20: Improved respiratory effort. Push for extubation. 06/21: Awake and arousable on the ventilator. Tolerating tube feeding. No BM. Afebrile. 06/22: Afebrile. On sedation vacation yesterday was following commands by wiggling toes and squeeze bilateral upper extremities. However, brief one dose patient becomes agitated and gags on ET tube. 06/23: Yesterday, patient coughed up tube into vocal cord region. Unable to deflate balloon. Patient's airway was exchanged by anesthesiology. Saturations remained above 90% at all times. After a tube change, mucous plugging to mainstream. Plan emergent bronchus with clearance of secretions. Sample sent. Currently sedating appears comfortable ventilator. Will need tracheostomy. Mother notified and in agreement. Subjective 06/24: Remains intubated sedated, off sedation patient follows commands 4. But failed CPAP trial today due to severe tachycardia and agitation. Plan for OP tracheostomy today 06/25: Brief PA arrest after tracheostomy yesterday in the OR-total duration 2 minutes. No evidence of anoxic injury. BUN/creatinine is 55/2.3 increased from 43/1.4 most likely from ATN secondary to shock. Transaminase elevation also secondary to shock. 06/26: Patient not tolerating CPAP with low PS. Remains on amiodarone for atrial fibrillation. Apixaban on hold due to worsening renal function today 2.5-most likely from ATN-start IV Heparin. Urine output remains excellent. Objective Vital Signs Date Time Temp Pulse Resp B/P (MAP) Pulse Ox O2 Delivery O2 Flow Rate FiO2 06/26/17 10:30 99 50 06/26/17 10:00 101 06/26/17 08:00 100.4 14 118/73 (88) Automatic Cuff 06/26/17 04:13 Ventilator 06/25/17 16:00 6.00 Intake and Output 06/26/17 06/26/17 06/26/17 07:59 15:59 23:59 Intake Total 1040 ml Output Total 2000 ml Balance -960 ml Result Diagram: 06/26/17 0430 06/26/17 0430 Imaging Last Impressions Chest X-Ray 06/22/17 0600 Signed Impressions: Service Date/Time: Thursday, June 22, 2017 03:49 - CONCLUSION: 1. Slight increase in basilar airspace disease since June 19. Endotracheal tube and nasogastric tube unchanged. Anderson Raymond MD Abdomen X-Ray 06/22/17 0000 Signed Impressions: Service Date/Time: Thursday, June 22, 2017 15:43 - CONCLUSION: Nonspecific abdomen. Gunnar Culp MD Head CT 06/18/17 0000 Signed Impressions: Service Date/Time: Sunday, June 18, 2017 00:48 - CONCLUSION: Negative exam. No evidence of intracranial hemorrhage. Ronni Capps MD Bone Biopsy CT 06/17/17 0000 Signed Impressions: Service Date/Time: Saturday, June 17, 2017 12:35 - CONCLUSION: Bone marrow aspiration and biopsy complicated by intubation and resuscitation. Pathology is pending. Rell Valentin MD FACR Abdomen Ultrasound 06/16/17 0000 Signed Impressions: Service Date/Time: Friday, June 16, 2017 18:13 - CONCLUSION: Limited sonographic windows due to patient body habitus and bowel gas. Right renal cyst. Visualized portions of the abdomen otherwise within normal limits. Jose Bruno MD Lower Extremity Ultrasound 06/14/17 0000 Signed Impressions: Service Date/Time: Wednesday, June 14, 2017 08:15 - CONCLUSION: Normal examination. Kushal Camacho MD Objective Remarks GENERAL: 57-year-old male, critically ill s/p trach SKIN: Cool and dry. HEAD: Noted front 2 teeth missing status post intubation. Normocephalic. EYES: Pupils equal and round about 2 mm bilaterally and slightly reactive. ENT: No nasal bleeding or discharge. Mucous membranes pink and moist. NECK: Trachea midline. No JVD. New trach site clean with no significant bleeding CARDIOVASCULAR: Irreg irreg. S1, S2. Intermittently tachycardic RESPIRATORY: Diminished breath sounds throughout. No wheezing appreciated. GASTROINTESTINAL: Abdomen soft, non-tender, obese. MUSCULOSKELETAL: Extremities with nonpitting lower extremity edema NEUROLOGICAL: Awake, eyes are open spontaneously. he is following commands by wiggling toes and squeezing his bilaterally on lightening sedation Procedures None A/P Assessment and Plan Neuro/Psych: Seizure disorder NOS Cardiac arrest x2 without evidence of anoxic injury Fentanyl drips for sedation, pain control daily sedation vacation No evidence of anoxic brain injury. Following commands 4. EEG 06/23 Normal study. Goal of RA SS -0. Head CT 06/18 revealed no acute intracranial findings Currently on Topamax 100 mg by mouth daily for underlying seizure disorder CV: Cardiac arrest x2 (PEA) Cardiogenic shock-resolved Nonischemic cardiomyopathy Ejection fraction 15-20% Atrial fibrillation with RVR Chronic systolic heart failure Pulmonary hypertension History of chronic atrial fibrillation Hypertension Hospitalization with symptomatically bradycardia Sustained brief PEA for 2 min in OR post trach 06/24, prev PA arrest due to hypoxia in CT room 06/17/17 Cardiogenic shock is now resolved and wean off the Levophed 2-D echocardiogram revealed EF 20%. Dilated LV/RV. Moderate MR/TR. Pulmonary arterial pressures 50-60 mmHg. Cardiac catheterization 2015 revealed 50% LAD stenosis otherwise unremarkable Holding home medications amiodarone 200 mg by mouth daily, doxazosin 2 mill grams daily and enalapril 20 daily. Resumed Amio IV bolus and gtt for Afib with RVR. 06/24. Eliquis on hold for worsening renal function. Start IV heparin today Metoprolol 50 mg twice a day, hold for hypotension. As needed labetalol, hydralazine and Nitropaste ordered DC Bumex 1 mg daily due to acute kidney failure. Normal saline 75 mL/hr for 24 hours completed Troponin peaked at 0.49. Downward trending. Followed by Dr. Mccormack/cardiology Resp: Acute hypoxic respiratory failure Anterior airway Likely CHINO not on CPAP PRVC 18//11/08/39, CPAP 18/03. Not tolerating lowering PS. Ventilator bundle Albuterol/ipratropium aerosols every 6 hours with albuterol every 2 hours. Chest x-ray right middle lobe infiltrates likely aspiration s/p Tracheostomy in OR with 06/24 s/p Decadron to discontinue for airway edema Difficult intubation in CT 06/17/17 GI: Glucerna 1.5 goal 50 cc an hour goal. Resume tube feeds after placing NGT Try to avoid PEG due to body habitus. Metoclopramide 5 mg IV every 8 hours Pantoprazole 40 mg IV daily for GI prophylaxis Relistor 1 bowel regimen on 06/21. having BM : Anderson catheter for accurate I's and O's in a critically ill patient Endo: Diabetes mellitus Sliding-scale insulin/moderate regimen with Accu-Cheks every 6 hours to maintain euglycemia Renal: Right renal cyst Chronic kidney disease stage III Creatinine 2.5 today due to PEA arrest, ATN on 06/24/17. Monitor urine output Accurate I's and O's DCd Bumex. IVF as above. Consult nephrology Heme: Leukocytosis Chronic thrombocytopenia Chronic Apixaban use Status post bone marrow biopsy. Follow-up on results. Dr. Aguilera/hematology following Resumed 5 mg twice a day apixaban on 06/22, held for trach, resumed again 06/25, now held due to worsening renal function Started on heparin 06/26/17 ID: HCAP/aspiration pneumonia sputum culture 06/20 Enterobacter Empirically on cefepime/Flagyl appropriate renal dosing MSK: 2 frontal teeth during intubation removed Elevated BMI 2 frontal teeth where dislodged during intubation attempts by ED providers on prior to my attempt, and intubation FEN: Hyper-magnesium Replace electrolytes as clinically indicated. Access - Right IJ CVL day 10 - Right femoral artery line day- DCd 06/23, R axillary art line placed 06/24/17 DC 06/26/17 Prophylaxis - GI - pantoprazole- - DVT - SCD/IV Heparin CCT 35 Niesha Fatima MD Jun 26, 2017 12:05
[2017-06-26 13:20] LABS: HEMATOCRIT 38.5 % (39.0-51.0); MEAN CELL VOLUME 90.5 FL (80.0-100.0); MEAN CORPUSCULAR HEMOGLOBIN 28.5 PG (27.0-34.0); MEAN CORPUSCULAR HGB CONC 31.5 % (32.0-36.0); PLATELET COUNT 87 TH/MM3 (150-450); RED BLOOD COUNT 4.26 MIL/MM3 (4.50-5.90); RED CELL DISTRIBUTION WIDTH 14.2 % (11.6-17.2); WHITE BLOOD COUNT 11.8 TH/MM3 (4.0-11.0)
[2017-06-26 13:26] LABS: APTT (PATIENT) 28.7 SEC (24.3-30.1); INTERNATIONAL NORMALIZED RATIO 1.2 RATIO; PROTHROMBIN TIME - PATIENT 13.1 SEC (9.8-11.6)
--- NOTE | 2017-06-26 14:56 | PD.ONC.PN ---
Subjective Subjective Remarks Tmax 100.4 overnight No bleeding Remains mechanically ventilated Objective Data Date Time Temp Pulse Resp B/P (MAP) Pulse Ox O2 Delivery O2 Flow Rate FiO2 06/26/17 12:29 94 40 06/26/17 10:30 99 50 06/26/17 10:00 101 06/26/17 08:31 99 50 06/26/17 08:30 50 06/26/17 08:00 50 06/26/17 08:00 100.4 110 14 118/73 (88) 97 Automatic Cuff 06/26/17 08:00 110 06/26/17 06:00 101 06/26/17 04:13 100 Ventilator 06/26/17 04:03 100 50 06/26/17 04:00 50 06/26/17 04:00 100.4 96 14 140/70 (93) 99 06/26/17 04:00 96 06/26/17 02:00 98 06/26/17 00:11 100 50 06/26/17 00:00 100.4 107 14 121/77 (92) 96 06/26/17 00:00 50 06/26/17 00:00 92 06/25/17 22:12 91 137/80 06/25/17 22:00 91 06/25/17 20:53 98 50 06/25/17 20:00 50 06/25/17 20:00 105 06/25/17 20:00 99.3 107 30 105/70 (82) 96 06/25/17 18:00 97 06/25/17 16:30 95 50 06/25/17 16:00 50 06/25/17 16:00 99 T-piece 6.00 50 06/25/17 16:00 106 06/25/17 16:00 98.6 106 28 138/79 (98) 96 06/25/17 15:48 97 50 06/26/17 06/26/17 06/26/17 07:00 15:00 23:00 Intake Total 1040 ml Output Total 2000 ml Balance -960 ml Result Diagram: 06/26/17 1300 06/26/17 0430 Laboratory Results Laboratory Tests Test 06/26/17 04:30 06/26/17 13:00 White Blood Count 11.8 TH/MM3 11.8 TH/MM3 Red Blood Count 4.33 MIL/MM3 4.26 MIL/MM3 Hemoglobin 12.5 GM/DL 12.1 GM/DL Hematocrit 38.7 % 38.5 % Mean Corpuscular Volume 89.2 FL 90.5 FL Mean Corpuscular Hemoglobin 28.8 PG 28.5 PG Mean Corpuscular Hemoglobin Concent 32.3 % 31.5 % Red Cell Distribution Width 14.3 % 14.2 % Platelet Count 82 TH/MM3 87 TH/MM3 Mean Platelet Volume 12.0 FL 11.4 FL Neutrophils (%) (Auto) 70.8 % Lymphocytes (%) (Auto) 10.1 % Monocytes (%) (Auto) 14.7 % Eosinophils (%) (Auto) 4.1 % Basophils (%) (Auto) 0.3 % Neutrophils # (Auto) 8.4 TH/MM3 Lymphocytes # (Auto) 1.2 TH/MM3 Monocytes # (Auto) 1.7 TH/MM3 Eosinophils # (Auto) 0.5 TH/MM3 Basophils # (Auto) 0.0 TH/MM3 CBC Comment AUTO DIFF Differential Comment AUTO DIFF CONFIRMED Blood Urea Nitrogen 62 MG/DL Creatinine 2.54 MG/DL Random Glucose 100 MG/DL Total Protein 5.6 GM/DL Albumin 2.3 GM/DL Calcium Level 8.1 MG/DL Alkaline Phosphatase 73 U/L Aspartate Amino Transf (AST/SGOT) 72 U/L Alanine Aminotransferase (ALT/SGPT) 131 U/L Total Bilirubin 0.9 MG/DL Sodium Level 143 MEQ/L Potassium Level 3.7 MEQ/L Chloride Level 111 MEQ/L Carbon Dioxide Level 23.3 MEQ/L Anion Gap 9 MEQ/L Estimat Glomerular Filtration Rate 32 ML/MIN Prothrombin Time 13.1 SEC Prothromb Time International Ratio 1.2 RATIO Activated Partial Thromboplast Time 28.7 SEC Administered Medications Medications (Trade) Dose Ordered Sig/Ashok Route PRN Reason Start Time Stop Time Status Last Admin Dose Admin Apixaban (Eliquis) 5 mg BID PO 06/14/17 09:00 Future hold 06/23/17 09:00 Enalapril Maleate (Vasotec) 10 mg DAILY PO 06/15/17 09:00 Future Hold 06/16/17 09:33 Topiramate (Topamax) 100 mg DAILY PO 06/14/17 11:00 06/26/17 08:09 Tramadol HCl (Ultram) 50 mg Q6H PRN PO pain > 5 06/15/17 21:15 Future Hold 06/16/17 09:34 Chlorhexidine Gluconate (Peridex 0.12% Liq) 15 ml BID@08,20 MT 06/17/17 20:00 06/26/17 08:00 Propofol 100 ml @ 0 mls/hr TITRATE IV 06/17/17 14:15 06/25/17 00:41 Sodium Chloride 1,000 ml @ 20 mls/hr Q24H IV 06/17/17 14:00 06/26/17 01:25 Sodium Chloride (NS Flush) 2 ml BID IV FLUSH 06/17/17 21:00 06/26/17 08:09 Pantoprazole Sodium (Protonix Inj) 40 mg DAILY IV 06/18/17 09:00 06/26/17 08:09 Artificial Tears (Tears Naturale Opth Soln) 1 drop TID EACH EYE 06/17/17 18:00 06/25/17 17:29 Ondansetron HCl (Zofran Inj) 4 mg Q6H PRN IV NAUSEA OR VOMITING 06/17/17 14:15 06/22/17 08:22 Chlorhexidine Gluconate (Chlorhexidine 2% Cloth) Taper DAILY@04 TOP 06/18/17 04:00 06/14/18 03:59 06/23/17 02:42 Senna/Docusate Sodium (Marilee-Colace) 1 tab BID PO 06/17/17 21:00 06/26/17 08:09 Magnesium Hydroxide (Milk Of Magnesia Liq) 30 ml Q12H PRN PO MILD - MODERATE CONSTIPATION 06/17/17 14:15 06/21/17 11:21 Lactulose (Lactulose Liq) 30 ml DAILY PRN PO SEVERE CONSITIPATION 06/17/17 14:15 06/21/17 11:21 Insulin Human Regular (NovoLIN R SUPPLEMENTAL SCALE) 1 Q6HR SQ 06/17/17 18:00 06/24/17 19:35 Labetalol HCl (Trandate Inj) 10 mg Q1HR PRN IV PUSH SBP>160, DBP>90, HR>65 06/18/17 08:45 06/18/17 18:36 Hydralazine HCl (Apresoline Inj) 10 mg Q1HR PRN IV PUSH SBP>160, DBP>90 06/18/17 08:45 06/25/17 10:49 Nitroglycerin (Nitroglycerin 2% Oint) 2 inch Q6HR PRN TOPICAL SBP>160, DBP>90 06/18/17 08:45 06/18/17 13:00 Cefepime HCl 2000 mg/Sodium Chloride 100 ml @ 200 mls/hr Q12H IV 06/18/17 10:00 06/26/17 10:16 Metronidazole 100 ml @ 100 mls/hr Q8H IV 06/18/17 11:00 06/26/17 13:41 Metoprolol Tartrate (Lopressor) 50 mg Q12HR PO 06/18/17 09:15 06/26/17 08:09 Metoclopramide HCl (Reglan Inj) 5 mg Q8HR IV PUSH 06/22/17 15:45 06/26/17 13:37 Amiodarone HCl 450 mg/Dextrose 250 ml @ 0 mls/hr CONTINUOUS IV 06/24/17 11:30 06/25/17 22:12 Norepinephrine Bitartrate 250 ml @ 7.5 mls/hr TITRATE PRN IV Maintain MAP > 65 mmHg 06/24/17 19:45 06/25/17 01:28 Metoprolol Tartrate (Lopressor Inj) 2.5 mg Q6H PRN IV PUSH SUSTAINED HR GREATER THAN 110 06/25/17 15:30 06/25/17 17:29 Objective Remarks GENERAL: Obese male, trach midline. No oozing. SKIN: Warm and dry. HEAD: Normocephalic. EYES: No injection or drainage. NECK: Supple, trachea midline. CARDIOVASCULAR: Regular rate and rhythm RESPIRATORY: Clear anteriorly. Breathing unlabored. GASTROINTESTINAL: Abdomen nondistended. EXTREMITIES: No cyanosis. SCDs to bilateral lower extremities NEUROLOGICAL: Tracking with eyes, follows commands. Assessment/Plan Problem List: (1) Thrombocytopenia ICD Codes: D69.6 - Thrombocytopenia, unspecified Status: Chronic Plan: --?ITP --Patient has long-standing history of thrombocytopenia, dating back to 2003. --s/p bone marrow biopsy in , 06/17. pathology shows hypercellular bone marrow (2) Atrial fibrillation ICD Codes: I48.91 - Unspecified atrial fibrillation Status: Chronic Plan: -- Eliquis currently on hold Assessment 57-year-old male admitted with generalized weakness and nausea. Hematology consulted for thrombocytopenia. After patient's bone marrow biopsy on 06/17, he became hypoxic and was intubated. Now in ISC on mechanical ventilation. Plan 1. Thrombocytopenia stable 2. 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 Monitor CBC Attending Statement The exam, history, and the medical decision-making described in the above note were completed with the assistance of the mid-level provider. I reviewed and agree with the findings presented. I attest that I had a [id number] encounter with the patient on the same day, and personally performed and documented my assessment and findings in the medical record. PT seen and examined. Events noted. Mother in WC by bedside along with 2 other family members. Pt appear to open eyes spontaneously and blink with recognition of his family. IV sites clear, no bleeding or bruising despite thrombocytopenia and UFH. Discussed the low platelet finding and need for anticoagulation to family. Pt with competing needs. BM suggest ITP/peripheral destruction, spleen not enlarged by US measurement, MPV high cw w/ ITP Despite acute illness and critical care support platelets remain >50K. No specific treatment needed. Follow. Emotional support provided. Shila Molina Jun 26, 2017 14:56 Cindy Aguilera MD Jun 26, 2017 18:58
[2017-06-26] MEDS: HEPARIN-D5W 25,000 U/250 ML 250 ML IV PRN (15:00)
[2017-06-26] MEDS: hydrALAZINE HCL 20 MG/ML VIAL IV PUSH PRN (19:36)
[2017-06-26] MEDS: ACETAMINOPHEN 325 MG TAB PO PRN (20:23)
[2017-06-26] MEDS: LABETALOL HCL 100 MG/20 ML VIAL IV PUSH PRN ×2 (20:24→23:53)
[2017-06-26] MEDS: AMIODARONE INJ 450 MG in DEXTROSE 5% IN WATE(EXCEL) INJ 241 ML IV SCH ×2 (20:42)
[2017-06-26 21:31] LABS: APTT (PATIENT) 62.7 SEC (24.3-30.1)
[2017-06-27] VITALS (19 sets, daily range): BP systolic 131–159; BP diastolic 77–93; PULSE 79–110; RESP 14–34; TEMP 99–100.2; O2SAT 97–100
[2017-06-27] MEDS: metroNIDAZOLE 500 MG INJ 100 ML IV SCH ×3 (02:03→18:01)
[2017-06-27] MEDS: LABETALOL HCL 100 MG/20 ML VIAL IV PUSH PRN (02:04)
[2017-06-27 03:14] LABS: AUTOMATED NEUTROPHIL # 9.9 TH/MM3 (1.8-7.7); BASOPHIL # 0.1 TH/MM3 (0-0.2); BASOPHIL % 0.5 % (0.0-2.0); EOSINOPHIL # 0.5 TH/MM3 (0-0.4); EOSINOPHIL % 3.6 % (0.0-4.0); HEMATOCRIT 38.3 % (39.0-51.0); LYMPH % 7.3 % (9.0-44.0); LYMPHOCYTE # 0.9 TH/MM3 (1.0-4.8); MEAN CELL VOLUME 90.6 FL (80.0-100.0); MEAN CORPUSCULAR HEMOGLOBIN 28.5 PG (27.0-34.0); MEAN CORPUSCULAR HGB CONC 31.5 % (32.0-36.0); MONO % 11.3 % (0.0-8.0); NEUT % 77.3 % (16.0-70.0); PLATELET COUNT 98 TH/MM3 (150-450); RED BLOOD COUNT 4.23 MIL/MM3 (4.50-5.90); RED CELL DISTRIBUTION WIDTH 14.4 % (11.6-17.2); WHITE BLOOD COUNT 12.8 TH/MM3 (4.0-11.0)
[2017-06-27 03:16] LABS: HEMO FLAGS AUTO DIFF
[2017-06-27 03:28] LABS: APTT (PATIENT) 86.8 SEC (24.3-30.1)
[2017-06-27 03:38] LABS: ALT (GPT) 108 U/L (12-78); ANION GAP 6 MEQ/L (5-15); AST (GOT) 47 U/L (15-37); BICARBONATE 24.8 MEQ/L (21.0-32.0); BLOOD UREA NITROGEN 57 MG/DL (7-18); CHLORIDE 113 MEQ/L (98-107); GLOMERULAR FILTRATION RATE 34 ML/MIN (>89); MAGNESIUM 2.4 MG/DL (1.5-2.5); SODIUM (NA) 144 MEQ/L (136-145)
[2017-06-27] MEDS: RESP: ALBUTEROL 2.5 MG/IPRATROPIUM 0.5 MG NEB (SCH) NEB ×4 (03:40→21:00)
[2017-06-27 03:41] LABS: ALKALINE PHOSPHATASE 69 U/L (45-117); TOTAL BILIRUBIN ADULT 0.7 MG/DL (0.2-1.0)
[2017-06-27] MEDS: CHLORHEXIDINE GLUCONATE 2 % 1 PACK (2 CLOTHS) TOP SCH (04:00)
[2017-06-27 04:09] LABS: EOSINOPHILS 4 % (0-4); MYELOCYTES 1 % (0-0); NEUTROPHIL # MANUAL DIFF 9.9 TH/MM3 (1.8-7.7); PLASMA CELLS 1 % (0-0); PLATELET ESTIMATE SMEAR LOW (NORMAL); PLATELET MORPHOLOGY NORMAL (NORMAL); POLYS (SEG NEUTROPHILS) 76 % (16-70); SCAN/DIFF FINAL DIFF MANUAL; WBC DIFF SAMPLE 100
[2017-06-27 04:10] LABS: TOXIC VACUOLATION PRESENT (NONE SEEN)
[2017-06-27] MEDS: HEPARIN-D5W 25,000 U/250 ML 250 ML IV PRN ×2 (04:32→20:24)
[2017-06-27] MEDS: METOCLOPRAMIDE HCL 10 MG/2 ML VIAL IV PUSH SCH ×3 (05:18→23:00)
[2017-06-27] MEDS: INSULIN NovoLIN REGULAR SUPPLEMENTAL SCALE SQ SCH ×4 (05:31→18:00)
--- NOTE | 2017-06-27 05:52 | RADRPT ---
EXAM DATE/TIME: 06/27/2017 04:54 [facility] COMPARISON: CHEST SINGLE AP, June 25, 2017, 4:52. INDICATIONS : Shortness of breath MEDICAL HISTORY : None. SURGICAL HISTORY : None. ENCOUNTER: Subsequent ACUITY: 1 week PAIN SCORE: Non-responsive. LOCATION: Bilateral chest FINDINGS: A single view of the chest demonstrates tracheostomy in satisfactory position. NG enters stomach. Rig ht central line in superior vena cava. Bilateral mostly basilar airspace disease similar to June 25 . No pneumothorax. CONCLUSION: 1. Basilar airspace disease similar to June 25. Right central line, nasogastric tube and tracheosto my unchanged. Anderson Raymond MD on June 27, 2017 at 5:48 Board Certified Radiologist. This report was verified electronically.
[2017-06-27] MEDS: CHLORHEXIDINE 0.12% (ORAL KIT) 15 ML CUP MT SCH ×2 (08:00→20:19)
[2017-06-27] MEDS: SODIUM CHLOR 0.9% 1000 ML INJ 1,000 ML IV SCH (08:21)
[2017-06-27] MEDS: ARTIFICIAL TEARS OPTH SOLN 15 ML BTL EACH EYE SCH ×3 (09:00→18:00)
[2017-06-27] MEDS: SODIUM CHLORIDE 0.9% FLUSH 10 ML FLUSH IV FLUSH SCH ×2 (09:00→20:19)
[2017-06-27 09:09] LABS: APTT (PATIENT) 77.3 SEC (24.3-30.1)
[2017-06-27] MEDS: TOPIRAMATE 100 MG TAB PO SCH (09:57)
[2017-06-27] MEDS: METOPROLOL TARTRATE 50 MG TAB PO SCH ×2 (09:57→20:19)
[2017-06-27] MEDS: CEFEPIME INJ 2,000 MG in SODIUM CHLORIDE 0.9% INJ 100 ML IV SCH ×2 (09:57→23:00)
[2017-06-27] MEDS: DOCUSATE SODIUM 50 MG/SENNA 8.6 MG TAB PO SCH ×2 (09:57→20:19)
[2017-06-27] MEDS: AMIODARONE INJ 450 MG in DEXTROSE 5% IN WATE(EXCEL) INJ 241 ML IV SCH ×2 (10:00)
[2017-06-27] MEDS: PANTOPRAZOLE SODIUM 40 MG VIAL IV SCH (10:01)
--- NOTE | 2017-06-27 10:03 | HHI.CCPN ---
Subjective Remarks/Hospital Course This is a 57-year-old -[place] male. Date of admission 06/14/2017. Date of consultation 06/17/2017. Past medical history includes poor dentition, seizure disorder NOS, atrial fibrillation, nonischemic cardiomyopathy ejection fraction 50-20%, chronic kidney disease stage III, hypertension, diabetes, morbid obesity and chronic venous insufficiency. Patient also is known history of chronic thrombocytopenia. Patient was admitted really on 06/14 with shortness of breath[address] Dr[address] Mccormack/cardiology was consulted. Poor candidate for AICD secondary to noncompliance. Recommended removal of all teeth outpatient with possible placement after that. Resume home medications. Echocardiogram revealed EF 20%. Dilated RV/LV. Moderate MR/TR. Pulmonary arterial pressures measures 50-60 mmHg. During this hospitalization, he was also symptomatically bradycardia his medicines have been adjusted see orders. Dr. Aguilera from hematology was consulted due to chronic trauma cytopenia since 2003. Today, a bone marrow biopsy was performed. Patient was documented received fentanyl and Versed during procedure. Received 2.4 mg Narcan post procedures patient was somnolent. ED physicians came to intubate patient received 20 mg etomidate, 150 mg succinylcholine. Patient was hypoxic. Please see intubation note and code note by Dr. Niesha Fatima. Patient is currently on Yosvany-Synephrine drip. Central line placed emergently due to hemodynamic instability. Arterial line placed by my colleague. 06/18: Arousable to voice and moving all [address] head no acute findings. Troponin peaked at 0.49. Creatinine actually improved. We'll attempt spontaneous breathing trials today. Added when necessary's for blood pressure. 06/19: Peripheral perfusion acceptable. Heart rate better controlled. Start spontaneous breathing trials. 06/20: Improved respiratory effort. Push for extubation. 06/21: Awake and arousable on the ventilator. Tolerating tube feeding. No BM. Afebrile. 06/22: Afebrile. On sedation vacation yesterday was following commands by wiggling toes and squeeze bilateral upper extremities. However, brief one dose patient becomes agitated and gags on ET tube. 06/23: Yesterday, patient coughed up tube into vocal cord region. Unable to deflate balloon. Patient's airway was exchanged by anesthesiology. Saturations remained above 90% at all times. After a tube change, mucous plugging to mainstream. Plan emergent bronchus with clearance of secretions. Sample sent. Currently sedating appears comfortable ventilator. Will need tracheostomy. Mother notified and in agreement. Subjective 06/24: Remains intubated sedated, off sedation patient follows commands 4. But failed CPAP trial today due to severe tachycardia and agitation. Plan for OP tracheostomy today 06/25: Brief PA arrest after tracheostomy yesterday in the OR-total duration 2 minutes. No evidence of anoxic injury. BUN/creatinine is 55/2.3 increased from 43/1.4 most likely from ATN secondary to shock. Transaminase elevation also secondary to shock. 06/26: Patient not tolerating CPAP with low PS. Remains on amiodarone for atrial fibrillation. Apixaban on hold due to worsening renal function today 2.5-most likely from ATN-start IV Heparin. Urine output remains excellent. 06/27: Unable to wean ventilator, not tolerating SBTs. Hampered by biventricular failure. Objective Vital Signs Date Time Temp Pulse Resp B/P (MAP) Pulse Ox O2 Delivery O2 Flow Rate FiO2 06/27/17 08:17 40 06/27/17 08:17 100 06/27/17 06:00 96 06/27/17 04:00 100.2 14 147/81 (103) 06/27/17 03:52 Ventilator 06/25/17 16:00 6.00 Intake and Output 06/27/17 06/27/17 06/27/17 07:59 15:59 23:59 Intake Total 1041.1 ml Output Total 875 ml Balance 166.1 ml Result Diagram: 06/27/17 0300 06/27/17 0300 Imaging Last Impressions Chest X-Ray 06/22/17 0600 Signed Impressions: Service Date/Time: Thursday, June 22, 2017 03:49 - CONCLUSION: 1. Slight increase in basilar airspace disease since June 19. Endotracheal tube and nasogastric tube unchanged. Anderson Raymond MD Abdomen X-Ray 06/22/17 0000 Signed Impressions: Service Date/Time: Thursday, June 22, 2017 15:43 - CONCLUSION: Nonspecific abdomen. K. Mauricio Culp MD Head CT 06/18/17 0000 Signed Impressions: Service Date/Time: Sunday, June 18, 2017 00:48 - CONCLUSION: Negative exam. No evidence of intracranial hemorrhage. Ronni Capps MD Bone Biopsy CT 06/17/17 0000 Signed Impressions: Service Date/Time: Saturday, June 17, 2017 12:35 - CONCLUSION: Bone marrow aspiration and biopsy complicated by intubation and resuscitation. Pathology is pending. Rell Valentin MD FACR Abdomen Ultrasound 06/16/17 0000 Signed Impressions: Service Date/Time: Friday, June 16, 2017 18:13 - CONCLUSION: Limited sonographic windows due to patient body habitus and bowel gas. Right renal cyst. Visualized portions of the abdomen otherwise within normal limits. Jose Bruno MD Lower Extremity Ultrasound 06/14/17 0000 Signed Impressions: Service Date/Time: Wednesday, June 14, 2017 08:15 - CONCLUSION: Normal examination. Kushal Camacho MD Objective Remarks GENERAL: 57-year-old male, critically ill s/p trach SKIN: Cool and dry. HEAD: Noted front 2 teeth missing status post intubation. Normocephalic. EYES: Pupils equal and round about 2 mm bilaterally and slightly reactive. ENT: No nasal bleeding or discharge. Mucous membranes pink and moist. NECK: Trachea midline. No JVD. New trach site clean with no significant bleeding CARDIOVASCULAR: Irreg irreg. S1, S2. Intermittently tachycardic RESPIRATORY: Diminished breath sounds throughout. No wheezing appreciated. GASTROINTESTINAL: Abdomen soft, non-tender, obese. MUSCULOSKELETAL: Extremities with nonpitting lower extremity edema NEUROLOGICAL: Awake, eyes are open spontaneously. he is following commands by wiggling toes and squeezing his bilaterally on lightening sedation Procedures None A/P Assessment and Plan Neuro/Psych: Seizure disorder NOS Cardiac arrest x2 without evidence of anoxic injury Fentanyl drips for sedation, pain control daily sedation vacation No evidence of anoxic brain injury. Following commands 4. EEG 06/23 Normal study. Goal of RA SS -0. Head CT 06/18 revealed no acute intracranial findings Currently on Topamax 100 mg by mouth daily for underlying seizure disorder CV: Cardiac arrest x2 (PEA) Cardiogenic shock-resolved Nonischemic cardiomyopathy Ejection fraction 15-20% Atrial fibrillation with RVR Chronic systolic heart failure Pulmonary hypertension History of chronic atrial fibrillation Hypertension Hospitalization with symptomatically bradycardia Sustained brief PEA for 2 min in OR post trach 06/24, prev PA arrest due to hypoxia in CT room 06/17/17 Cardiogenic shock is now resolved and wean off the Levophed 2-D echocardiogram revealed EF 20%. Dilated LV/RV. Moderate MR/TR. Pulmonary arterial pressures 50-60 mmHg. Cardiac catheterization 2015 revealed 50% LAD stenosis otherwise unremarkable Holding home medications amiodarone 200 mg by mouth daily, doxazosin 2 mill grams daily and enalapril 20 daily. Resumed Amio IV bolus and gtt for Afib with RVR. 06/24. Eliquis on hold for worsening renal function. Start IV heparin today Metoprolol 50 mg twice a day, hold for hypotension. As needed labetalol, hydralazine and Nitropaste ordered DC Bumex 1 mg daily due to acute kidney failure. Normal saline 75 mL/hr for 24 hours completed Troponin peaked at 0.49. Downward trending. Followed by Dr. Mccormack/cardiology Resp: Acute hypoxic respiratory failure Anterior airway Likely CHINO not on CPAP PRVC 18/600/11/08/40, CPAP 15/5. Not tolerating lowering PS. Ventilator bundle Albuterol/ipratropium aerosols every 6 hours with albuterol every 2 hours. Chest x-ray right middle lobe infiltrates likely aspiration s/p Tracheostomy in OR with 06/24 s/p Decadron to discontinue for airway edema Difficult intubation in CT 06/17/17 GI: Glucerna 1.5 goal 50 cc an hour goal. Resume tube feeds after placing NGT Try to avoid PEG due to body habitus. Metoclopramide 5 mg IV every 8 hours Pantoprazole 40 mg IV daily for GI prophylaxis Relistor 1 bowel regimen on 06/21. having BM : Anderson catheter for accurate I's and O's in a critically ill patient Endo: Diabetes mellitus Sliding-scale insulin/moderate regimen with Accu-Cheks every 6 hours to maintain euglycemia Renal: Right renal cyst Chronic kidney disease stage III Creatinine 2.5 today due to PEA arrest, ATN on 06/24/17. Monitor urine output Accurate I's and O's DCd Bumex. IVF as above. Consult nephrology Heme: Leukocytosis Chronic thrombocytopenia Chronic Apixaban use Status post bone marrow biopsy. Follow-up on results. Dr. Aguilera/hematology following Resumed 5 mg twice a day apixaban on 06/22, held for trach, resumed again 06/25, now held due to worsening renal function Started on heparin 06/26/17 ID: HCAP/aspiration pneumonia sputum culture 06/20 Enterobacter Empirically on cefepime/Flagyl appropriate renal dosing MSK: 2 frontal teeth during intubation removed Elevated BMI 2 frontal teeth where dislodged during intubation attempts by ED providers on prior to my attempt, and intubation FEN: Hyper-magnesium Replace electrolytes as clinically indicated. Access - Right IJ CVL day 11 - Right femoral artery line day- DCd 06/23, R axillary art line placed 06/24/17 DC 06/26/17 Prophylaxis - GI - pantoprazole- - DVT - SCD/IV Heparin Overall impression: Severe systolic heart failure hampering wean trials. Looking more like a hospice scenario. Sohail Ma MD Jun 27, 2017 10:02
[2017-06-27] MEDS ORDERED: PROPOFOL 1000 MG/100 ML INJ 100 ML IV SCH (14:45)
--- NOTE | 2017-06-27 15:03 | PD.ONC.PN ---
Subjective Subjective Remarks Low-grade fever overnight Failed CPAP trial Opens eyes to verbal stimuli. Following commands for thumbs up bilaterally Objective Data Date Time Temp Pulse Resp B/P (MAP) Pulse Ox O2 Delivery O2 Flow Rate FiO2 06/27/17 14:03 97 40 06/27/17 12:00 86 06/27/17 12:00 40 06/27/17 12:00 99.5 86 14 137/78 (97) 99 06/27/17 11:08 98 40 06/27/17 10:00 99 142/76 06/27/17 10:00 94 06/27/17 08:17 40 06/27/17 08:17 100 40 06/27/17 08:00 99.0 85 14 131/77 (95) 97 06/27/17 08:00 85 06/27/17 08:00 40 06/27/17 06:00 96 06/27/17 04:00 100.2 101 14 147/81 (103) 98 06/27/17 04:00 40 06/27/17 04:00 101 06/27/17 03:52 99 Ventilator 06/27/17 03:43 99 40 06/27/17 02:00 90 06/27/17 00:00 86 06/27/17 00:00 40 06/27/17 00:00 100.0 86 14 147/81 (103) 99 06/26/17 23:52 100 Ventilator 06/26/17 23:48 100 40 06/26/17 22:00 89 06/26/17 20:42 93 150/70 06/26/17 20:39 95 150/70 06/26/17 20:00 100.2 108 15 162/76 (104) 100 06/26/17 20:00 108 06/26/17 20:00 40 06/26/17 19:43 100 Ventilator 06/26/17 19:26 100 40 06/26/17 18:00 94 06/26/17 16:00 92 06/26/17 16:00 99.5 87 14 167/76 (106) 100 06/26/17 16:00 40 06/26/17 15:26 99 40 06/27/17 06/27/17 06/27/17 06:59 14:59 22:59 Intake Total 1041.1 ml 194.4 ml Output Total 875 ml Balance 166.1 ml 194.4 ml Result Diagram: 06/27/17 0300 06/27/17 0300 Laboratory Results Laboratory Tests Test 06/26/17 20:55 06/27/17 03:00 06/27/17 08:30 Activated Partial Thromboplast Time 62.7 SEC 86.8 SEC 77.3 SEC White Blood Count 12.8 TH/MM3 Red Blood Count 4.23 MIL/MM3 Hemoglobin 12.1 GM/DL Hematocrit 38.3 % Mean Corpuscular Volume 90.6 FL Mean Corpuscular Hemoglobin 28.5 PG Mean Corpuscular Hemoglobin Concent 31.5 % Red Cell Distribution Width 14.4 % Platelet Count 98 TH/MM3 Mean Platelet Volume 11.8 FL Neutrophils (%) (Auto) 77.3 % Lymphocytes (%) (Auto) 7.3 % Monocytes (%) (Auto) 11.3 % Eosinophils (%) (Auto) 3.6 % Basophils (%) (Auto) 0.5 % Neutrophils # (Auto) 9.9 TH/MM3 Lymphocytes # (Auto) 0.9 TH/MM3 Monocytes # (Auto) 1.5 TH/MM3 Eosinophils # (Auto) 0.5 TH/MM3 Basophils # (Auto) 0.1 TH/MM3 CBC Comment AUTO DIFF Differential Total Cells Counted 100 Neutrophils % (Manual) 76 % Lymphocytes % 8 % Monocytes % 10 % Eosinophils % 4 % Neutrophils # (Manual) 9.9 TH/MM3 Myelocytes 1 % Differential Comment FINAL DIFF MANUAL Atypical Lymphocytes % Plasma Cells 1 % Toxic Vacuolation PRESENT Platelet Estimate LOW Platelet Morphology Comment NORMAL Red Cell Morphology Comment NORMAL Blood Urea Nitrogen 57 MG/DL Creatinine 2.40 MG/DL Random Glucose 116 MG/DL Total Protein 5.8 GM/DL Albumin 2.4 GM/DL Calcium Level 8.1 MG/DL Magnesium Level 2.4 MG/DL Alkaline Phosphatase 69 U/L Aspartate Amino Transf (AST/SGOT) 47 U/L Alanine Aminotransferase (ALT/SGPT) 108 U/L Total Bilirubin 0.7 MG/DL Sodium Level 144 MEQ/L Potassium Level 4.0 MEQ/L Chloride Level 113 MEQ/L Carbon Dioxide Level 24.8 MEQ/L Anion Gap 6 MEQ/L Estimat Glomerular Filtration Rate 34 ML/MIN Imaging Studies Last 24 hours Impressions Chest X-Ray 06/27/17 0600 Signed Impressions: Service Date/Time: June 04:54 - CONCLUSION: 1. Basilar airspace disease similar to June 25. Right central line, nasogastric tube and tracheostomy unchanged. Anderson Raymond MD Administered Medications Medications (Trade) Dose Ordered Sig/Ashok Route PRN Reason Start Time Stop Time Status Last Admin Dose Admin Apixaban (Eliquis) 5 mg BID PO 06/14/17 09:00 Future hold 06/23/17 09:00 Enalapril Maleate (Vasotec) 10 mg DAILY PO 06/15/17 09:00 Future Hold 06/16/17 09:33 Topiramate (Topamax) 100 mg DAILY PO 06/14/17 11:00 06/27/17 09:57 Tramadol HCl (Ultram) 50 mg Q6H PRN PO pain > 5 06/15/17 21:15 Future Hold 06/16/17 09:34 Acetaminophen (Tylenol) 650 mg Q6H PRN PO PAIN 1-5 AND/OR FEVER 06/15/17 21:30 06/26/17 20:23 Chlorhexidine Gluconate (Peridex 0.12% Liq) 15 ml BID@08,20 MT 06/17/17 20:00 06/27/17 08:00 Sodium Chloride 1,000 ml @ 20 mls/hr Q24H IV 06/17/17 14:00 06/27/17 08:21 Sodium Chloride (NS Flush) 2 ml BID IV FLUSH 06/17/17 21:00 06/27/17 09:00 Pantoprazole Sodium (Protonix Inj) 40 mg DAILY IV 06/18/17 09:00 06/27/17 10:01 Artificial Tears (Tears Naturale Opth Soln) 1 drop TID EACH EYE 06/17/17 18:00 06/27/17 13:00 Ondansetron HCl (Zofran Inj) 4 mg Q6H PRN IV NAUSEA OR VOMITING 06/17/17 14:15 06/22/17 08:22 Chlorhexidine Gluconate (Chlorhexidine 2% Cloth) Taper DAILY@04 TOP 06/18/17 04:00 06/14/18 03:59 06/23/17 02:42 Senna/Docusate Sodium (Marilee-Colace) 1 tab BID PO 06/17/17 21:00 06/27/17 09:57 Magnesium Hydroxide (Milk Of Magnesia Liq) 30 ml Q12H PRN PO MILD - MODERATE CONSTIPATION 06/17/17 14:15 06/21/17 11:21 Lactulose (Lactulose Liq) 30 ml DAILY PRN PO SEVERE CONSITIPATION 06/17/17 14:15 06/21/17 11:21 Insulin Human Regular (NovoLIN R SUPPLEMENTAL SCALE) 1 Q6HR SQ 06/17/17 18:00 06/24/17 19:35 Labetalol HCl (Trandate Inj) 10 mg Q1HR PRN IV PUSH SBP>160, DBP>90, HR>65 06/18/17 08:45 06/27/17 02:04 Hydralazine HCl (Apresoline Inj) 10 mg Q1HR PRN IV PUSH SBP>160, DBP>90 06/18/17 08:45 06/26/17 19:36 Nitroglycerin (Nitroglycerin 2% Oint) 2 inch Q6HR PRN TOPICAL SBP>160, DBP>90 06/18/17 08:45 06/18/17 13:00 Cefepime HCl 2000 mg/Sodium Chloride 100 ml @ 200 mls/hr Q12H IV 06/18/17 10:00 06/27/17 09:57 Metronidazole 100 ml @ 100 mls/hr Q8H IV 06/18/17 11:00 06/27/17 11:44 Metoprolol Tartrate (Lopressor) 50 mg Q12HR PO 06/18/17 09:15 06/27/17 09:57 Metoclopramide HCl (Reglan Inj) 5 mg Q8HR IV PUSH 06/22/17 15:45 06/27/17 05:18 Norepinephrine Bitartrate 250 ml @ 7.5 mls/hr TITRATE PRN IV Maintain MAP > 65 mmHg 06/24/17 19:45 06/25/17 01:28 Metoprolol Tartrate (Lopressor Inj) 2.5 mg Q6H PRN IV PUSH SUSTAINED HR GREATER THAN 110 06/25/17 15:30 06/25/17 17:29 Albuterol/ Ipratropium (Duoneb Neb) 1 ampule Q6HR NEB NEB 06/26/17 16:00 06/27/17 08:11 Objective Remarks GENERAL: Obese male, trach midline. No oozing. SKIN: Warm and dry. HEAD: Normocephalic. EYES: No injection or drainage. NECK: Supple, trachea midline. CARDIOVASCULAR: Regular rate and rhythm RESPIRATORY: Clear anteriorly. Breathing unlabored. GASTROINTESTINAL: Abdomen obese, nondistended. EXTREMITIES: No cyanosis. SCDs to bilateral lower extremities NEUROLOGICAL: Tracking with eyes, follows commands. Assessment/Plan Problem List: (1) Thrombocytopenia ICD Codes: D69.6 - Thrombocytopenia, unspecified Status: Chronic Plan: --?ITP --Patient has long-standing history of thrombocytopenia, dating back to 2003. --s/p bone marrow biopsy in , 06/17. pathology shows hypercellular bone marrow (2) Atrial fibrillation ICD Codes: I48.91 - Unspecified atrial fibrillation Status: Chronic Plan: -- Eliquis currently on hold Assessment 57-year-old male admitted with generalized weakness and nausea. Hematology consulted for thrombocytopenia. After patient's bone marrow biopsy on 06/17, he became hypoxic and was intubated. Now in ISC on mechanical ventilation. Plan 1. Platelets stable 2. Monitor CBC Attending Statement Agree with above, as discussed. Shila Molina Jun 27, 2017 15:03 Cindy Aguilera MD Jun 27, 2017 23:35
[2017-06-27 16:29] LABS: APTT (PATIENT) 62.2 SEC (24.3-30.1)
[2017-06-27 22:37] LABS: APTT (PATIENT) 56.4 SEC (24.3-30.1)
[2017-06-28] VITALS (18 sets, daily range): BP systolic 119–169; BP diastolic 70–104; PULSE 80–97; RESP 14–17; TEMP 98.6–99.9; O2SAT 97–100
[2017-06-28] MEDS: AMIODARONE INJ 450 MG in DEXTROSE 5% IN WATE(EXCEL) INJ 241 ML IV SCH ×4 (00:09→13:37)
[2017-06-28] MEDS: SODIUM CHLOR 0.9% 1000 ML INJ 1,000 ML IV SCH (01:36)
[2017-06-28] MEDS: metroNIDAZOLE 500 MG INJ 100 ML IV SCH ×3 (02:39→18:11)
[2017-06-28] MEDS: CHLORHEXIDINE GLUCONATE 2 % 1 PACK (2 CLOTHS) TOP SCH (04:00)
[2017-06-28] MEDS: RESP: ALBUTEROL 2.5 MG/IPRATROPIUM 0.5 MG NEB (SCH) NEB ×4 (04:38→20:29)
[2017-06-28] MEDS: METOCLOPRAMIDE HCL 10 MG/2 ML VIAL IV PUSH SCH ×3 (05:44→22:19)
[2017-06-28] MEDS: INSULIN NovoLIN REGULAR SUPPLEMENTAL SCALE SQ SCH ×4 (06:00→18:00)
[2017-06-28 06:30] LABS: APTT (PATIENT) 60.9 SEC (24.3-30.1)
[2017-06-28 06:40] LABS: BICARBONATE 25.4 MEQ/L (21.0-32.0)
[2017-06-28] MEDS: SODIUM CHLORIDE 0.9% FLUSH 10 ML FLUSH IV FLUSH SCH ×2 (07:42→20:25)
[2017-06-28] MEDS: TOPIRAMATE 100 MG TAB PO SCH (08:50)
[2017-06-28] MEDS: ARTIFICIAL TEARS OPTH SOLN 15 ML BTL EACH EYE SCH ×3 (08:50→16:35)
[2017-06-28] MEDS: PANTOPRAZOLE SODIUM 40 MG VIAL IV SCH (08:50)
[2017-06-28] MEDS: DOCUSATE SODIUM 50 MG/SENNA 8.6 MG TAB PO SCH ×2 (08:50→20:25)
[2017-06-28] MEDS: CEFEPIME INJ 2,000 MG in SODIUM CHLORIDE 0.9% INJ 100 ML IV SCH ×2 (08:50→22:18)
[2017-06-28] MEDS: METOPROLOL TARTRATE 50 MG TAB PO SCH ×2 (08:50→20:25)
[2017-06-28] MEDS: CHLORHEXIDINE 0.12% (ORAL KIT) 15 ML CUP MT SCH ×2 (08:51→20:24)
[2017-06-28] MEDS: HEPARIN-D5W 25,000 U/250 ML 250 ML IV PRN (10:39)
--- NOTE | 2017-06-28 16:11 | HHI.CCPN ---
Subjective Remarks/Hospital Course This is a 57-year-old -[place] male. Date of admission 06/14/2017. Date of consultation 06/17/2017. Past medical history includes poor dentition, seizure disorder NOS, atrial fibrillation, nonischemic cardiomyopathy ejection fraction 50-20%, chronic kidney disease stage III, hypertension, diabetes, morbid obesity and chronic venous insufficiency. Patient also is known history of chronic thrombocytopenia. Patient was admitted really on 06/14 with shortness of breath. Dr. Mccormack/cardiology was consulted. Poor candidate for AICD secondary to noncompliance. Recommended removal of all teeth outpatient with possible placement after that. Resume home medications. Echocardiogram revealed EF 20%. Dilated RV/LV. Moderate MR/TR. Pulmonary arterial pressures measures 50-60 mmHg. During this hospitalization, he was also symptomatically bradycardia his medicines have been adjusted see orders. Dr. Aguilera from hematology was consulted due to chronic trauma cytopenia since 2003. Today, a bone marrow biopsy was performed. Patient was documented received fentanyl and Versed during procedure. Received 2.4 mg Narcan post procedures patient was somnolent. ED physicians came to intubate patient received 20 mg etomidate, 150 mg succinylcholine. Patient was hypoxic. Please see intubation note and code note by Dr. Niesha Fatima. Patient is currently on Yosvany-Synephrine drip. Central line placed emergently due to hemodynamic instability. Arterial line placed by my colleague. 06/18: Arousable to voice and moving all [address] head no acute findings. Troponin peaked at 0.49. Creatinine actually improved. We'll attempt spontaneous breathing trials today. Added when necessary's for blood pressure. 06/19: Peripheral perfusion acceptable. Heart rate better controlled. Start spontaneous breathing trials. 06/20: Improved respiratory effort. Push for extubation. 06/21: Awake and arousable on the ventilator. Tolerating tube feeding. No BM. Afebrile. 06/22: Afebrile. On sedation vacation yesterday was following commands by wiggling toes and squeeze bilateral upper extremities. However, brief one dose patient becomes agitated and gags on ET tube. 06/23: Yesterday, patient coughed up tube into vocal cord region. Unable to deflate balloon. Patient's airway was exchanged by anesthesiology. Saturations remained above 90% at all times. After a tube change, mucous plugging to mainstream. Plan emergent bronchus with clearance of secretions. Sample sent. Currently sedating appears comfortable ventilator. Will need tracheostomy. Mother notified and in agreement. Subjective 06/24: Remains intubated sedated, off sedation patient follows commands 4. But failed CPAP trial today due to severe tachycardia and agitation. Plan for OP tracheostomy today 06/25: Brief PA arrest after tracheostomy yesterday in the OR-total duration 2 minutes. No evidence of anoxic injury. BUN/creatinine is 55/2.3 increased from 43/1.4 most likely from ATN secondary to shock. Transaminase elevation also secondary to shock. 06/26: Patient not tolerating CPAP with low PS. Remains on amiodarone for atrial fibrillation. Apixaban on hold due to worsening renal function today 2.5-most likely from ATN-start IV Heparin. Urine output remains excellent. 06/27: Unable to wean ventilator, not tolerating SBTs. Hampered by biventricular failure. 06/28: Failed CPAP trials quickly again today despite increased pressure support. We are balancing heart failure and kidney failure, and losing both battles. Objective Vital Signs Date Time Temp Pulse Resp B/P (MAP) Pulse Ox O2 Delivery O2 Flow Rate FiO2 06/28/17 14:00 82 06/28/17 13:37 125/86 06/28/17 12:00 99.0 14 99 06/28/17 12:00 40 06/27/17 03:52 Ventilator 06/25/17 16:00 6.00 Intake and Output 06/28/17 06/28/17 06/29/17 08:00 16:00 00:00 Intake Total 1087 ml Output Total 925.0 ml 0 ml Balance 162.0 ml 0 ml Result Diagram: 06/27/17 0300 06/28/17 0555 Imaging Last Impressions Chest X-Ray 06/22/17 0600 Signed Impressions: Service Date/Time: Thursday, June 22, 2017 03:49 - CONCLUSION: 1. Slight increase in basilar airspace disease since June 19. Endotracheal tube and nasogastric tube unchanged. Anderson Raymond MD Abdomen X-Ray 06/22/17 0000 Signed Impressions: Service Date/Time: Thursday, June 22, 2017 15:43 - CONCLUSION: Nonspecific abdomen. K. Mauricio Culp MD Head CT 06/18/17 0000 Signed Impressions: Service Date/Time: Sunday, June 18, 2017 00:48 - CONCLUSION: Negative exam. No evidence of intracranial hemorrhage. Ronni Capps MD Bone Biopsy CT 06/17/17 0000 Signed Impressions: Service Date/Time: Saturday, June 17, 2017 12:35 - CONCLUSION: Bone marrow aspiration and biopsy complicated by intubation and resuscitation. Pathology is pending. Rell Valentin MD FACR Abdomen Ultrasound 06/16/17 0000 Signed Impressions: Service Date/Time: Friday, June 16, 2017 18:13 - CONCLUSION: Limited sonographic windows due to patient body habitus and bowel gas. Right renal cyst. Visualized portions of the abdomen otherwise within normal limits. Jose Bruno MD Lower Extremity Ultrasound 06/14/17 0000 Signed Impressions: Service Date/Time: Wednesday, June 14, 2017 08:15 - CONCLUSION: Normal examination. Kushal Camacho MD Objective Remarks GENERAL: 57-year-old male, critically ill s/p trach SKIN: Cool and dry. HEAD: Noted front 2 teeth missing status post intubation. Normocephalic. EYES: Pupils equal and round about 2 mm bilaterally and slightly reactive. ENT: No nasal bleeding or discharge. Mucous membranes pink and moist. NECK: Trachea midline. No JVD. New trach site clean with no significant bleeding CARDIOVASCULAR: Irreg irreg. S1, S2. Intermittently tachycardic RESPIRATORY: Diminished breath sounds throughout. No wheezing appreciated. GASTROINTESTINAL: Abdomen soft, non-tender, obese. MUSCULOSKELETAL: Extremities with nonpitting lower extremity edema NEUROLOGICAL: Awake, eyes are open spontaneously. he is following commands by wiggling toes and squeezing his bilaterally on lightening sedation Procedures None A/P Assessment and Plan Neuro/Psych: Seizure disorder NOS Cardiac arrest x2 without evidence of anoxic injury Fentanyl drips for sedation, pain control daily sedation vacation No evidence of anoxic brain injury. Following commands 4. EEG 06/23 Normal study. Goal of RA SS -0. Head CT 06/18 revealed no acute intracranial findings Currently on Topamax 100 mg by mouth daily for underlying seizure disorder CV: Cardiac arrest x2 (PEA) Cardiogenic shock-resolved Nonischemic cardiomyopathy Ejection fraction 15-20% Atrial fibrillation with RVR Chronic systolic heart failure Pulmonary hypertension History of chronic atrial fibrillation Hypertension Hospitalization with symptomatically bradycardia Sustained brief PEA for 2 min in OR post trach 06/24, prev PA arrest due to hypoxia in CT room 06/17/17 Cardiogenic shock is now resolved and wean off the Levophed 2-D echocardiogram revealed EF 20%. Dilated LV/RV. Moderate MR/TR. Pulmonary arterial pressures 50-60 mmHg. Cardiac catheterization 2015 revealed 50% LAD stenosis otherwise unremarkable Holding home medications amiodarone 200 mg by mouth daily, doxazosin 2 mill grams daily and enalapril 20 daily. Resumed Amio IV bolus and gtt for Afib with RVR. 06/24. Eliquis on hold for worsening renal function. Start IV heparin today Metoprolol 50 mg twice a day, hold for hypotension. As needed labetalol, hydralazine and Nitropaste ordered DC Bumex 1 mg daily due to acute kidney failure. Normal saline 75 mL/hr for 24 hours completed Troponin peaked at 0.49. Downward trending. Followed by Dr. Mccormack/cardiology Resp: Acute hypoxic respiratory failure Anterior airway Likely CHINO not on CPAP PRVC 18/600/11/08/40, CPAP 15/5. Not tolerating lowering PS. Ventilator bundle Albuterol/ipratropium aerosols every 6 hours with albuterol every 2 hours. Chest x-ray right middle lobe infiltrates likely aspiration s/p Tracheostomy in OR with 06/24 s/p Decadron to discontinue for airway edema Difficult intubation in CT 06/17/17 GI: Glucerna 1.5 goal 50 cc an hour goal. Resume tube feeds after placing NGT Try to avoid PEG due to body habitus. Metoclopramide 5 mg IV every 8 hours Pantoprazole 40 mg IV daily for GI prophylaxis Relistor 1 bowel regimen on 06/21. having BM : Anderson catheter for accurate I's and O's in a critically ill patient Endo: Diabetes mellitus Sliding-scale insulin/moderate regimen with Accu-Cheks every 6 hours to maintain euglycemia Renal: Right renal cyst Chronic kidney disease stage III Creatinine 2.5 today due to PEA arrest, ATN on 06/24/17. Monitor urine output Accurate I's and O's DCd Bumex. IVF as above. Consult nephrology Heme: Leukocytosis Chronic thrombocytopenia Chronic Apixaban use Status post bone marrow biopsy. Follow-up on results. Dr. Aguilera/hematology following Resumed 5 mg twice a day apixaban on 06/22, held for trach, resumed again 06/25, now held due to worsening renal function Started on heparin 06/26/17 ID: HCAP/aspiration pneumonia sputum culture 06/20 Enterobacter Empirically on cefepime/Flagyl appropriate renal dosing MSK: 2 frontal teeth during intubation removed Elevated BMI 2 frontal teeth where dislodged during intubation attempts by ED providers on prior to my attempt, and intubation FEN: Hyper-magnesium Replace electrolytes as clinically indicated. Access - Right IJ CVL day 11 - Right femoral artery line day- DCd 06/23, R axillary art line placed 06/24/17 DC 06/26/17 Prophylaxis - GI - pantoprazole- - DVT - SCD/IV Heparin Overall impression: Severe systolic heart failure hampering weaning trials. Looking more like a hospice scenario. Sohail Ma MD Jun 28, 2017 16:11
[2017-06-29] VITALS (19 sets, daily range): BP systolic 129–196; BP diastolic 61–108; PULSE 80–103; RESP 14–27; TEMP 99.5–100.3; O2SAT 97–100
[2017-06-29] MEDS: HEPARIN-D5W 25,000 U/250 ML 250 ML IV PRN ×2 (02:09→21:27)
[2017-06-29] MEDS: SODIUM CHLOR 0.9% 1000 ML INJ 1,000 ML IV SCH (02:14)
[2017-06-29] MEDS: AMIODARONE INJ 450 MG in DEXTROSE 5% IN WATE(EXCEL) INJ 241 ML IV SCH ×2 (02:57)
[2017-06-29] MEDS: metroNIDAZOLE 500 MG INJ 100 ML IV SCH ×2 (03:34→09:26)
[2017-06-29] MEDS: RESP: ALBUTEROL 2.5 MG/IPRATROPIUM 0.5 MG NEB (SCH) NEB ×4 (03:58→21:00)
[2017-06-29] MEDS: CHLORHEXIDINE GLUCONATE 2 % 1 PACK (2 CLOTHS) TOP SCH (04:00)
[2017-06-29 04:36] LABS: HEMATOCRIT 36.8 % (39.0-51.0); MEAN CELL VOLUME 91.4 FL (80.0-100.0); MEAN CORPUSCULAR HEMOGLOBIN 28.9 PG (27.0-34.0); MEAN CORPUSCULAR HGB CONC 31.6 % (32.0-36.0); PLATELET COUNT 95 TH/MM3 (150-450); RED BLOOD COUNT 4.03 MIL/MM3 (4.50-5.90); RED CELL DISTRIBUTION WIDTH 14.3 % (11.6-17.2); WHITE BLOOD COUNT 12.1 TH/MM3 (4.0-11.0)
[2017-06-29 05:00] LABS: APTT (PATIENT) 57.8 SEC (24.3-30.1)
[2017-06-29 05:01] LABS: BICARBONATE 25.3 MEQ/L (21.0-32.0); POTASSIUM 3.9 MEQ/L (3.5-5.1)
[2017-06-29 05:04] LABS: REVIEW FLAG FINAL
[2017-06-29] MEDS: INSULIN NovoLIN REGULAR SUPPLEMENTAL SCALE SQ SCH ×4 (05:58→18:00)
[2017-06-29] MEDS: METOCLOPRAMIDE HCL 10 MG/2 ML VIAL IV PUSH SCH ×3 (05:58→23:31)
[2017-06-29] MEDS: CHLORHEXIDINE 0.12% (ORAL KIT) 15 ML CUP MT SCH ×2 (08:00→20:09)
[2017-06-29] MEDS: SODIUM CHLORIDE 0.9% FLUSH 10 ML FLUSH IV FLUSH SCH ×2 (09:00→21:00)
[2017-06-29] MEDS: ARTIFICIAL TEARS OPTH SOLN 15 ML BTL EACH EYE SCH ×3 (09:00→18:00)
[2017-06-29] MEDS: TOPIRAMATE 100 MG TAB PO SCH (09:25)
[2017-06-29] MEDS: DOCUSATE SODIUM 50 MG/SENNA 8.6 MG TAB PO SCH ×2 (09:25→20:22)
[2017-06-29] MEDS: PANTOPRAZOLE SODIUM 40 MG VIAL IV SCH (09:25)
[2017-06-29] MEDS: METOPROLOL TARTRATE 50 MG TAB PO SCH ×2 (09:25→20:22)
[2017-06-29] MEDS: CEFEPIME INJ 2,000 MG in SODIUM CHLORIDE 0.9% INJ 100 ML IV SCH (09:26)
--- NOTE | 2017-06-29 09:56 | HHI.CCPN ---
Subjective Remarks/Hospital Course This is a 57-year-old -Turkish male. Date of admission 06/14/2017. Date of consultation 06/17/2017. Past medical history includes poor dentition, seizure disorder NOS, atrial fibrillation, nonischemic cardiomyopathy ejection fraction 15-20%, chronic kidney disease stage III, hypertension, diabetes, morbid obesity and chronic venous insufficiency. Patient also is known history of chronic thrombocytopenia. Patient was admitted really on 06/14 with shortness of breath. Dr. Mccormack/cardiology was consulted. Poor candidate for AICD secondary to noncompliance. Recommended removal of all teeth outpatient with possible placement after that. Resume home medications. Echocardiogram revealed EF 20%. Dilated RV/LV. Moderate MR/TR. Pulmonary arterial pressures measures 50-60 mmHg. During this hospitalization, he was also symptomatically bradycardia his medicines have been adjusted see orders. Dr. Aguilera from hematology was consulted due to chronic trauma cytopenia since 2003. Today, a bone marrow biopsy was performed. Patient was documented received fentanyl and Versed during procedure. Received 2.4 mg Narcan post procedures patient was somnolent. ED physicians came to intubate patient received 20 mg etomidate, 150 mg succinylcholine. Patient was hypoxic. Please see intubation note and code note by Dr. Niesha Fatima. Patient is currently on Yosvany-Synephrine drip. Central line placed emergently due to hemodynamic instability. Arterial line placed by my colleague. 06/18: Arousable to voice and moving all [address] head no acute findings. Troponin peaked at 0.49. Creatinine actually improved. We'll attempt spontaneous breathing trials today. Added when necessary's for blood pressure. 06/19: Peripheral perfusion acceptable. Heart rate better controlled. Start spontaneous breathing trials. 06/20: Improved respiratory effort. Push for extubation. 06/21: Awake and arousable on the ventilator. Tolerating tube feeding. No BM. Afebrile. 06/22: Afebrile. On sedation vacation yesterday was following commands by wiggling toes and squeeze bilateral upper extremities. However, brief one dose patient becomes agitated and gags on ET tube. 06/23: Yesterday, patient coughed up tube into vocal cord region. Unable to deflate balloon. Patient's airway was exchanged by anesthesiology. Saturations remained above 90% at all times. After a tube change, mucous plugging to mainstream. Plan emergent bronchus with clearance of secretions. Sample sent. Currently sedating appears comfortable ventilator. Will need tracheostomy. Mother notified and in agreement. 06/24: Remains intubated sedated, off sedation patient follows commands 4. But failed CPAP trial today due to severe tachycardia and agitation. Plan for OP tracheostomy today 06/25: Brief PA arrest after tracheostomy yesterday in the OR-total duration 2 minutes. No evidence of anoxic injury. BUN/creatinine is 55/2.3 increased from 43/1.4 most likely from ATN secondary to shock. Transaminase elevation also secondary to shock. 06/26: Patient not tolerating CPAP with low PS. Remains on amiodarone for atrial fibrillation. Apixaban on hold due to worsening renal function today 2.5-most likely from ATN-start IV Heparin. Urine output remains excellent. 06/27: Unable to wean ventilator, not tolerating SBTs. Hampered by biventricular failure. 06/28: Failed CPAP trials quickly again today despite increased pressure support. We are balancing heart failure and kidney failure, and losing both battles. Subjective 06/29 Follows commands weakly. Placed on 15 over 5 this morning. No significant respiratory secretions. Temp max 99.7 Objective Vital Signs Date Time Temp Pulse Resp B/P (MAP) Pulse Ox O2 Delivery O2 Flow Rate FiO2 06/29/17 08:54 98 40 06/29/17 06:00 87 06/29/17 04:00 99.5 14 165/97 (119) 06/27/17 03:52 Ventilator 06/25/17 16:00 6.00 Intake and Output 06/29/17 06/29/17 06/29/17 07:59 15:59 23:59 Intake Total 1325 ml Output Total 825 ml Balance 500 ml Result Diagram: 06/29/17 0415 06/29/17 0415 Imaging Last Impressions Chest X-Ray 06/22/17 0600 Signed Impressions: Service Date/Time: Thursday, June 22, 2017 03:49 - CONCLUSION: 1. Slight increase in basilar airspace disease since June 19. Endotracheal tube and nasogastric tube unchanged. Anderson Raymond MD Abdomen X-Ray 06/22/17 0000 Signed Impressions: Service Date/Time: Thursday, June 22, 2017 15:43 - CONCLUSION: Nonspecific abdomen. K. Mauricio Culp MD Head CT 06/18/17 0000 Signed Impressions: Service Date/Time: Sunday, June 18, 2017 00:48 - CONCLUSION: Negative exam. No evidence of intracranial hemorrhage. Ronni Capps MD Bone Biopsy CT 06/17/17 0000 Signed Impressions: Service Date/Time: Saturday, June 17, 2017 12:35 - CONCLUSION: Bone marrow aspiration and biopsy complicated by intubation and resuscitation. Pathology is pending. Rell Valentin MD FACR Abdomen Ultrasound 06/16/17 0000 Signed Impressions: Service Date/Time: Friday, June 16, 2017 18:13 - CONCLUSION: Limited sonographic windows due to patient body habitus and bowel gas. Right renal cyst. Visualized portions of the abdomen otherwise within normal limits. Jose Bruno MD Lower Extremity Ultrasound 06/14/17 0000 Signed Impressions: Service Date/Time: Wednesday, June 14, 2017 08:15 - CONCLUSION: Normal examination. Kushal Camacho MD Objective Remarks Drips: Heparin 1400 units per hour Amiodarone 0.5 mg/h 0.9 NaCl KVO at 20 mill liters per hour GENERAL: 57-year-old male, critically ill s/p trach SKIN: Cool and dry. HEAD: Noted front 2 teeth missing status post intubation, poor dentition overall. Normocephalic. EYES: Pupils equal and round about 2 mm bilaterally and slightly reactive. ENT: No nasal bleeding or discharge. Mucous membranes pink and moist. NECK: Trachea midline. No JVD. New trach site clean with no significant bleeding CARDIOVASCULAR: Irreg irreg. S1, S2. Intermittently tachycardic RESPIRATORY: Diminished breath sounds throughout. No wheezing appreciated. GASTROINTESTINAL: Abdomen soft, non-tender, obese. Anasarca with Pitting edema dependent portion of pannus. MUSCULOSKELETAL: Extremities with nonpitting lower extremity edema. NEUROLOGICAL: Awake, eyes are open spontaneously, tract. he is following commands by weekly wiggling toes and squeezing hands bilaterally . Nods and shakes heads to questions, smiles. Procedures None A/P Assessment and Plan Neuro/Psych: Seizure disorder NOS Cardiac arrest x2 without evidence of anoxic injury Off sedation. No appreciable anoxic brain injury. Following commands 4 but very weak. EEG Normal study. Goal of RA SS -0. Head CT 06/18 revealed no acute intracranial findings Currently on Topamax 100 mg by mouth daily for underlying seizure disorder CV: Cardiac arrest x2 (PEA) Cardiogenic shock-resolved Nonischemic cardiomyopathy Ejection fraction 15-20% Atrial fibrillation with RVR Chronic systolic heart failure Pulmonary hypertension History of chronic atrial fibrillation Hypertension Hospitalization with symptomatic bradycardia Sustained brief PEA for 2 min in OR post trach 06/24, prev PA arrest due to hypoxia in CT room 06/17/17 Cardiogenic shock is now resolved and off Levophed 2-D echocardiogram revealed EF 20%. Dilated LV/RV. Moderate MR/TR. Pulmonary arterial pressures 50-60 mmHg. Cardiac catheterization 2015 revealed 50% LAD stenosis otherwise unremarkable On amiodarone drip since bolused and started 06/24. , transition back to amiodarone 200 mg per NG daily. Eliquis on hold for worsening renal function. On heparin drip. On metoprolol 50 bid. Metoprolol 2.5 IV q6 hours prn. . Hypertensive. Resuime enalopril 5mg daily, monitor renal function. Getting labetalol 10 mg when necessary systolic blood pressure greater than 160 Troponin peaked at 0.49. Downward trending. Followed by Dr. Mccormack/cardiology Resp: Acute hypoxic respiratory failure Anterior airway Likely CHINO not on CPAP PRVC 18//11/08/39, CPAP 18/03. Not tolerating lowering PS. Ventilator bundle Albuterol/ipratropium aerosols every 6 hours with albuterol every 2 hours. Chest x-ray right middle lobe infiltrates likely aspiration Repeat CXR 06/27 - cardiomegaly, bibasilar opacity s/p Tracheostomy in OR 06/24 s/p Decadron to discontinue for airway edema Difficult intubation in CT 06/17/17 GI: Morbid obesity Acute mild protein energy malnutrition Glucerna 1.5 goal 50 cc an hour at goal per nutrition recommendations. Beneprotein 2 pack 3 times a day HAve been trying to avoid PEG due to body habitus. Metoclopramide 5 mg IV every 8 hours Pantoprazole 40 mg IV daily for GI prophylaxis Relistor 1 bowel regimen on 06/21. having BMs. FEN/RENAL: Right renal cyst Chronic kidney disease stage III Anderson catheter for accurate I's and O's in a critically ill patient with renal failure Creatinine 2.5ATN on 06/24/17. Endo: Diabetes mellitus Medium dose Sliding-scale insulin with Accu-Cheks every 6 hours to maintain euglycemia Heme: Leukocytosis Chronic thrombocytopenia ?ITP, dating back to 2003 Chronic Apixaban use Status post bone marrow biopsy in IR 06/17. PAth - hypercellular BM. Dr. Aguilera/hematology following Resumed 5 mg twice a day apixaban on 06/22, held for trach, resumed again 06/25, now on hold due to worsening renal function Started on heparin 06/26/17 ID: HCAP/aspiration pneumonia sputum culture 06/20 Enterobacter Empirically on cefepime 06/18 #12/Flagyl 06/18#12 with renal dosing. Will d/c abx 06/29 watch off abx and reculture as indicated. MSK: 2 frontal teeth during intubation removed 2 frontal teeth where dislodged during intubation attempts by ED providers on prior to CCM attempt, and intubation Access - Right IJ CVL 06/18 #12 - Right femoral artery line day- DCd 06/23, R axillary art line placed 06/24/17 DC 06/26/17 Prophylaxis - GI - pantoprazole- - DVT - SCD/IV Heparin Select following. Level 3 Liliya Roberts MD Jun 29, 2017 09:56
[2017-06-29] MEDS: AMIODARONE 200 MG TAB NG SCH (13:07)
[2017-06-29] MEDS: ENALAPRIL MALEATE 5 MG TAB NG SCH (13:10)
--- NOTE | 2017-06-29 15:12 | PD.ONC.PN ---
Subjective Subjective Remarks No bleeding Pt on CPAP trials Objective Data Date Time Temp Pulse Resp B/P (MAP) Pulse Ox O2 Delivery O2 Flow Rate FiO2 06/29/17 14:00 87 06/29/17 12:04 97 40 06/29/17 12:00 87 06/29/17 12:00 40 06/29/17 12:00 100.3 87 19 163/61 (95) 98 06/29/17 11:52 40 06/29/17 10:00 95 06/29/17 09:30 87 163/61 06/29/17 08:54 98 40 06/29/17 08:00 89 06/29/17 08:00 99.8 89 14 162/103 (122) 99 06/29/17 08:00 40 06/29/17 06:00 87 06/29/17 04:00 99.5 80 14 165/97 (119) 98 06/29/17 04:00 40 06/29/17 04:00 86 06/29/17 03:59 98 40 06/29/17 02:57 79 156/96 06/29/17 02:00 84 06/29/17 00:42 98 40 06/29/17 00:00 99.7 82 14 196/108 (137) 99 06/29/17 00:00 40 06/29/17 00:00 82 06/28/17 22:00 80 06/28/17 20:29 99 40 06/28/17 20:00 40 06/28/17 20:00 99.6 80 14 154/104 (121) 99 06/28/17 20:00 82 06/28/17 18:10 100 40 06/28/17 18:00 80 06/28/17 16:00 81 06/28/17 16:00 98.6 81 17 119/82 (94) 99 06/28/17 16:00 40 06/29/17 06/29/17 06/29/17 07:00 15:00 23:00 Intake Total 1325 ml 353 ml Output Total 825 ml 0 ml Balance 500 ml 353 ml Result Diagram: 06/29/17 0415 06/29/17 0415 Laboratory Results Laboratory Tests Test 06/29/17 04:15 White Blood Count 12.1 TH/MM3 Red Blood Count 4.03 MIL/MM3 Hemoglobin 11.6 GM/DL Hematocrit 36.8 % Mean Corpuscular Volume 91.4 FL Mean Corpuscular Hemoglobin 28.9 PG Mean Corpuscular Hemoglobin Concent 31.6 % Red Cell Distribution Width 14.3 % Platelet Count 95 TH/MM3 Mean Platelet Volume 12.1 FL Activated Partial Thromboplast Time 57.8 SEC Blood Urea Nitrogen 42 MG/DL Creatinine 2.00 MG/DL Random Glucose 122 MG/DL Calcium Level 7.7 MG/DL Sodium Level 143 MEQ/L Potassium Level 3.9 MEQ/L Chloride Level 112 MEQ/L Carbon Dioxide Level 25.3 MEQ/L Anion Gap 6 MEQ/L Estimat Glomerular Filtration Rate 42 ML/MIN Administered Medications Medications (Trade) Dose Ordered Sig/Ashok Route PRN Reason Start Time Stop Time Status Last Admin Dose Admin Apixaban (Eliquis) 5 mg BID PO 06/14/17 09:00 Future hold 06/23/17 09:00 Enalapril Maleate (Vasotec) 10 mg DAILY PO 06/15/17 09:00 Future Hold 06/16/17 09:33 Topiramate (Topamax) 100 mg DAILY PO 06/14/17 11:00 06/29/17 09:25 Tramadol HCl (Ultram) 50 mg Q6H PRN PO pain > 5 06/15/17 21:15 Future Hold 06/16/17 09:34 Acetaminophen (Tylenol) 650 mg Q6H PRN PO PAIN 1-5 AND/OR FEVER 06/15/17 21:30 06/26/17 20:23 Chlorhexidine Gluconate (Peridex 0.12% Liq) 15 ml BID@08,20 MT 06/17/17 20:00 06/29/17 08:00 Sodium Chloride 1,000 ml @ 20 mls/hr Q24H IV 06/17/17 14:00 06/29/17 02:14 Sodium Chloride (NS Flush) 2 ml BID IV FLUSH 06/17/17 21:00 06/29/17 09:00 Pantoprazole Sodium (Protonix Inj) 40 mg DAILY IV 06/18/17 09:00 06/29/17 09:25 Artificial Tears (Tears Naturale Opth Soln) 1 drop TID EACH EYE 06/17/17 18:00 06/29/17 13:00 Ondansetron HCl (Zofran Inj) 4 mg Q6H PRN IV NAUSEA OR VOMITING 06/17/17 14:15 06/22/17 08:22 Chlorhexidine Gluconate (Chlorhexidine 2% Cloth) Taper DAILY@04 TOP 06/18/17 04:00 06/14/18 03:59 06/23/17 02:42 Senna/Docusate Sodium (Marilee-Colace) 1 tab BID PO 06/17/17 21:00 06/29/17 09:25 Magnesium Hydroxide (Milk Of Magnesia Liq) 30 ml Q12H PRN PO MILD - MODERATE CONSTIPATION 06/17/17 14:15 06/21/17 11:21 Lactulose (Lactulose Liq) 30 ml DAILY PRN PO SEVERE CONSITIPATION 06/17/17 14:15 06/21/17 11:21 Insulin Human Regular (NovoLIN R SUPPLEMENTAL SCALE) 1 Q6HR SQ 06/17/17 18:00 06/24/17 19:35 Labetalol HCl (Trandate Inj) 10 mg Q1HR PRN IV PUSH SBP>160, DBP>90, HR>65 06/18/17 08:45 06/27/17 02:04 Hydralazine HCl (Apresoline Inj) 10 mg Q1HR PRN IV PUSH SBP>160, DBP>90 06/18/17 08:45 06/26/17 19:36 Nitroglycerin (Nitroglycerin 2% Oint) 2 inch Q6HR PRN TOPICAL SBP>160, DBP>90 06/18/17 08:45 06/18/17 13:00 Metoprolol Tartrate (Lopressor) 50 mg Q12HR PO 06/18/17 09:15 06/29/17 09:25 Metoclopramide HCl (Reglan Inj) 5 mg Q8HR IV PUSH 06/22/17 15:45 06/29/17 13:07 Metoprolol Tartrate (Lopressor Inj) 2.5 mg Q6H PRN IV PUSH SUSTAINED HR GREATER THAN 110 06/25/17 15:30 06/25/17 17:29 Albuterol/ Ipratropium (Duoneb Neb) 1 ampule Q6HR NEB NEB 06/26/17 16:00 06/29/17 08:53 Heparin Sodium/ Dextrose 250 ml @ 18.48 mls/ hr TITRATE PRN IV Coagulation management 06/27/17 14:45 06/29/17 02:09 Amiodarone HCl (Cordarone) 200 mg DAILY NG 06/29/17 11:00 06/29/17 13:07 Enalapril Maleate (Vasotec) 5 mg DAILY NG 06/29/17 11:00 06/29/17 13:10 Objective Remarks GENERAL: Obese male, trach midline. No oozing. SKIN: Warm and dry. HEAD: Normocephalic. EYES: No injection or drainage. NECK: Supple, trachea midline. CARDIOVASCULAR: CM shows Afib. RESPIRATORY: Clear anteriorly. Breathing unlabored. GASTROINTESTINAL: Abdomen obese, nondistended. EXTREMITIES: No cyanosis. SCDs to bilateral lower extremities NEUROLOGICAL: Tracking with eyes Assessment/Plan Assessment 57-year-old male admitted with generalized weakness and nausea. Hematology consulted for thrombocytopenia. After patient's bone marrow biopsy on 06/17, he became hypoxic and was intubated. Now in ISC on mechanical ventilation. Plan 1. Pt on CPAP trials, attempting to wean from mechanical ventilation. 2. Might consider transition back to Eliquis as kidney function improved. 3. Platelets maintaining in the 90k range. No treatment needed. Attending Statement The exam, history, and the medical decision-making described in the above note were completed with the assistance of the mid-level provider. I reviewed and agree with the findings presented. I attest that I had a [id number] encounter with the patient on the same day, and personally performed and documented my assessment and findings in the medical record. thrombocytopenia mild, persistent and not problematic. no intervention required. creatinine improved. Can resume eliquis when desired for his Afib. Shial Molina Jun 29, 2017 15:12 Roderick Hernandez MD Jun 29, 2017 15:18
[2017-06-29] MEDS: hydrALAZINE HCL 20 MG/ML VIAL IV PUSH PRN (16:07)
[2017-06-29] MEDS: MORPHINE SULFATE 4 MG/ML INJ IV PUSH PRN ×2 (18:04→18:12)
[2017-06-30] VITALS (18 sets, daily range): BP systolic 131–154; BP diastolic 68–100; PULSE 79–109; RESP 14–27; TEMP 97.8–100.4; O2SAT 94–100
[2017-06-30] MEDS: SODIUM CHLOR 0.9% 1000 ML INJ 1,000 ML IV SCH (02:38)
[2017-06-30] MEDS: CHLORHEXIDINE GLUCONATE 2 % 1 PACK (2 CLOTHS) TOP SCH ×2 (04:00→20:29)
[2017-06-30] MEDS: RESP: ALBUTEROL 2.5 MG/IPRATROPIUM 0.5 MG NEB (SCH) NEB ×4 (04:42→20:00)
[2017-06-30 04:45] LABS: AUTOMATED NEUTROPHIL # 8.4 TH/MM3 (1.8-7.7); BASOPHIL # 0.3 TH/MM3 (0-0.2); BASOPHIL % 2.8 % (0.0-2.0); EOSINOPHIL # 0.3 TH/MM3 (0-0.4); EOSINOPHIL % 3.2 % (0.0-4.0); HEMATOCRIT 36.4 % (39.0-51.0); LYMPH % 8.5 % (9.0-44.0); LYMPHOCYTE # 0.9 TH/MM3 (1.0-4.8); MEAN CELL VOLUME 90.2 FL (80.0-100.0); MEAN CORPUSCULAR HEMOGLOBIN 29.1 PG (27.0-34.0); MEAN CORPUSCULAR HGB CONC 32.3 % (32.0-36.0); MONO % 8.2 % (0.0-8.0); NEUT % 77.3 % (16.0-70.0); PLATELET COUNT 88 TH/MM3 (150-450); RED BLOOD COUNT 4.03 MIL/MM3 (4.50-5.90); RED CELL DISTRIBUTION WIDTH 14.6 % (11.6-17.2); WHITE BLOOD COUNT 10.8 TH/MM3 (4.0-11.0)
[2017-06-30 04:48] LABS: HEMO FLAGS AUTO DIFF
[2017-06-30 04:55] LABS: APTT (PATIENT) 60.7 SEC (24.3-30.1)
[2017-06-30 04:59] LABS: ALT (GPT) 51 U/L (12-78); ANION GAP 6 MEQ/L (5-15); AST (GOT) 23 U/L (15-37); BICARBONATE 24.6 MEQ/L (21.0-32.0); BLOOD UREA NITROGEN 39 MG/DL (7-18); CHLORIDE 111 MEQ/L (98-107); GLOMERULAR FILTRATION RATE 47 ML/MIN (>89); POTASSIUM 3.9 MEQ/L (3.5-5.1); SODIUM (NA) 142 MEQ/L (136-145)
[2017-06-30 05:02] LABS: ALKALINE PHOSPHATASE 94 U/L (45-117); TOTAL BILIRUBIN ADULT 0.4 MG/DL (0.2-1.0)
[2017-06-30] MEDS: METOCLOPRAMIDE HCL 10 MG/2 ML VIAL IV PUSH SCH ×3 (05:44→20:37)
[2017-06-30 05:55] LABS: SCAN/DIFF AUTO DIFF CONFIRMED
[2017-06-30] MEDS: INSULIN NovoLIN REGULAR SUPPLEMENTAL SCALE SQ SCH ×4 (06:00→17:13)
[2017-06-30] MEDS: SODIUM CHLORIDE 0.9% FLUSH 10 ML FLUSH IV FLUSH SCH ×2 (07:56→20:38)
[2017-06-30] MEDS: CHLORHEXIDINE 0.12% (ORAL KIT) 15 ML CUP MT SCH ×2 (07:56→20:00)
[2017-06-30] MEDS: ARTIFICIAL TEARS OPTH SOLN 15 ML BTL EACH EYE SCH ×3 (07:56→17:13)
[2017-06-30] MEDS: PANTOPRAZOLE SODIUM 40 MG VIAL IV SCH (08:17)
[2017-06-30] MEDS: ENALAPRIL MALEATE 5 MG TAB NG SCH (08:18)
[2017-06-30] MEDS: DOCUSATE SODIUM 50 MG/SENNA 8.6 MG TAB PO SCH ×2 (08:18→20:37)
[2017-06-30] MEDS: AMIODARONE 200 MG TAB NG SCH (08:18)
[2017-06-30] MEDS: TOPIRAMATE 100 MG TAB PO SCH (08:18)
[2017-06-30] MEDS: METOPROLOL TARTRATE 25 MG TAB PO SCH ×2 (08:18→20:37)
--- NOTE | 2017-06-30 15:16 | HHI.CCPN ---
Subjective Remarks/Hospital Course This is a 57-year-old -Chinese male. Date of admission 06/14/2017. Date of consultation 06/17/2017. Past medical history includes poor dentition, seizure disorder NOS, atrial fibrillation, nonischemic cardiomyopathy ejection fraction 15-20%, chronic kidney disease stage III, hypertension, diabetes, morbid obesity and chronic venous insufficiency. Patient also is known history of chronic thrombocytopenia. Patient was admitted really on 06/14 with shortness [address] breath[address] Dr. Mccormack/cardiology was consulted. Poor candidate for AICD secondary to noncompliance. Recommended removal of all teeth outpatient with possible placement after that. Resume home medications. Echocardiogram revealed EF 20%. Dilated RV/LV. Moderate MR/TR. Pulmonary arterial pressures measures 50-60 mmHg. During this hospitalization, he was also symptomatically bradycardia his medicines have been adjusted see orders. Dr. Aguilera from hematology was consulted due to chronic trauma cytopenia since 2003. Today, a bone marrow biopsy was performed. Patient was documented received fentanyl and Versed during procedure. Received 2.4 mg Narcan post procedures patient was somnolent. ED physicians came to intubate patient received 20 mg etomidate, 150 mg succinylcholine. Patient was hypoxic. Please see intubation note and code note by Dr. Niesha Fatima. Patient is currently on Yosvany-Synephrine drip. Central line placed emergently due to hemodynamic instability. Arterial line placed by my colleague. 06/18: Arousable to voice and moving all [address] head no acute findings. Troponin peaked at 0.49. Creatinine actually improved. We'll attempt spontaneous breathing trials today. Added when necessary's for blood pressure. 06/19: Peripheral perfusion acceptable. Heart rate better controlled. Start spontaneous breathing trials. 06/20: Improved respiratory effort. Push for extubation. 06/21: Awake and arousable on the ventilator. Tolerating tube feeding. No BM. Afebrile. 06/22: Afebrile. On sedation vacation yesterday was following commands by wiggling toes and squeeze bilateral upper extremities. However, brief one dose patient becomes agitated and gags on ET tube. 06/23: Yesterday, patient coughed up tube into vocal cord region. Unable to deflate balloon. Patient's airway was exchanged by anesthesiology. Saturations remained above 90% at all times. After a tube change, mucous plugging to mainstream. Plan emergent bronchus with clearance of secretions. Sample sent. Currently sedating appears comfortable ventilator. Will need tracheostomy. Mother notified and in agreement. 06/24: Remains intubated sedated, off sedation patient follows commands 4. But failed CPAP trial today due to severe tachycardia and agitation. Plan for OP tracheostomy today 06/25: Brief PA arrest after tracheostomy yesterday in the OR-total duration 2 minutes. No evidence of anoxic injury. BUN/creatinine is 55/2.3 increased from 43/1.4 most likely from ATN secondary to shock. Transaminase elevation also secondary to shock. 06/26: Patient not tolerating CPAP with low PS. Remains on amiodarone for atrial fibrillation. Apixaban on hold due to worsening renal function today 2.5-most likely from ATN-start IV Heparin. Urine output remains excellent. 06/27: Unable to wean ventilator, not tolerating SBTs. Hampered by biventricular failure. 06/28: Failed CPAP trials quickly again today despite increased pressure support. We are balancing heart failure and kidney failure, and losing both battles. 06/29 Follows commands weakly. Placed on 15 over 5 this morning. No significant respiratory secretions. Temp max 99.7 Subjective: 06/30 Tolerating CPAP 15/5 for 6 hours today. Now progressively weaned and tolerating 5/5 with RSBI in 20s. Will place on Tpiece up to 2 hours as tolerated. Tmax 100.4. WBC downtrended to 10. Had visitors today and was in good spirits, laughing. Objective Vital Signs Date Time Temp Pulse Resp B/P (MAP) Pulse Ox O2 Delivery O2 Flow Rate FiO2 06/30/17 14:00 79 06/30/17 12:00 40 06/30/17 12:00 98.0 27 131/79 (96) 99 06/27/17 03:52 Ventilator Intake and Output 06/30/17 06/30/17 06/30/17 07:59 15:59 23:59 Intake Total 838 ml 90 ml Output Total 825 ml 0 ml Balance 13 ml 90 ml Result Diagram: 06/30/17 0435 06/30/17 043 Imaging Last Impressions Chest X-Ray 06/22/17 0600 Signed Impressions: Service Date/Time: Thursday, June 22, 2017 03:49 - CONCLUSION: 1. Slight increase in basilar airspace disease since June 19. Endotracheal tube and nasogastric tube unchanged. Anderson Raymond MD Abdomen X-Ray 06/22/17 0000 Signed Impressions: Service Date/Time: Thursday, June 22, 2017 15:43 - CONCLUSION: Nonspecific abdomen. K. Mauricio Culp MD Head CT 06/18/17 0000 Signed Impressions: Service Date/Time: Sunday, June 18, 2017 00:48 - CONCLUSION: Negative exam. No evidence of intracranial hemorrhage. Ronni Capps MD Bone Biopsy CT 06/17/17 0000 Signed Impressions: Service Date/Time: Saturday, June 17, 2017 12:35 - CONCLUSION: Bone marrow aspiration and biopsy complicated by intubation and resuscitation. Pathology is pending. Rell Valentin MD FACR Abdomen Ultrasound 06/16/17 0000 Signed Impressions: Service Date/Time: Friday, June 16, 2017 18:13 - CONCLUSION: Limited sonographic windows due to patient body habitus and bowel gas. Right renal cyst. Visualized portions of the abdomen otherwise within normal limits. Jose Bruno MD Lower Extremity Ultrasound 06/14/17 0000 Signed Impressions: Service Date/Time: Wednesday, June 14, 2017 08:15 - CONCLUSION: Normal examination. Kushal Camacho MD Objective Remarks Drips: Heparin drip. GENERAL: 57-year-old male, critically ill s/p trach SKIN: Cool and dry. HEAD: Noted front 2 teeth missing status post intubation, poor dentition overall. Normocephalic. EYES: Pupils equal and round about 2 mm bilaterally and slightly reactive. ENT: No nasal bleeding or discharge. Mucous membranes pink and moist. NECK: Trachea midline. No JVD. New trach site clean with no significant bleeding CARDIOVASCULAR: Irreg irreg. S1, S2. Intermittently tachycardic RESPIRATORY: Diminished breath sounds throughout. No wheezing appreciated. GASTROINTESTINAL: Abdomen soft, non-tender, obese. Anasarca with Pitting edema dependent portion of pannus. MUSCULOSKELETAL: Extremities with 2+ bilateral lower extremity edema. NEUROLOGICAL: Awake, eyes are open spontaneously, tracks. Nods and shakes heads to questions, smiles. he is following commands by weekly wiggling toes and squeezing hands bilaterally . Unable to assess speech. Procedures None A/P Assessment and Plan Neuro/Psych: Seizure disorder NOS Cardiac arrest x2 without evidence of anoxic injury Following commands 4 but very weak. EEG 06/23 Normal study. Goal of RA SS -0. Head CT 06/18 revealed no acute intracranial findings Currently on Topamax 100 mg by mouth daily for underlying seizure disorder CV: Cardiac arrest x2 (PEA) Cardiogenic shock-resolved Nonischemic cardiomyopathy Ejection fraction 15-20% Atrial fibrillation with RVR Chronic systolic heart failure Pulmonary hypertension History of chronic atrial fibrillation Hypertension Hospitalization with symptomatic bradycardia Brief PEA for 2 min in OR post trach 06/24, prev PA arrest due to hypoxia in CT room 06/17/17 Cardiogenic shock is now resolved and off Levophed 2-D echocardiogram revealed EF 20%. Dilated LV/RV. Moderate MR/TR. Pulmonary arterial pressures 50-60 mmHg. Cardiac catheterization 2015 revealed 50% LAD stenosis otherwise unremarkable On amiodarone drip 06/24-06/29. Now on amiodarone 200 mg per NG daily. On anticoagulation for a fib...see discussion below. Increase metoprolol 75 bid. Metoprolol 2.5 IV q6 hours prn. . Hypertensive. Continue enalapril 10mg daily, monitor renal function and continue to optimize. Getting labetalol 10 mg when necessary systolic blood pressure greater than 160 Troponin peaked at 0.49. Downward trending. Followed by Dr. Mccormack/cardiology Resp: Acute hypoxic respiratory failure Anterior airway Likely CHINO not on CPAP Now tolerating CPAP and will transition to tpiece 2 hours as tolerated. Vent overnight tonight and resume tpiece in am as tolerated. Performed bedside u/s and has small/moderate L pleural effusion but risk/ benefit not in favor of thoracentesis at this point with body habitus. Received Lasix 06/29. Diurese today with Bumex 1 mg IV q12, KCL 25 ng bid. Ventilator bundle Albuterol/ipratropium aerosols every 6 hours with albuterol every 2 hours. Chest x-ray right middle lobe infiltrates likely aspiration Repeat CXR 06/27 - cardiomegaly, bibasilar opacity s/p Tracheostomy in OR 06/24 s/p Decadron for airway edema Difficult intubation in CT 06/17/17 GI: Morbid obesity Acute mild protein energy malnutrition Glucerna 1.5 goal 50 cc an hour at goal per nutrition recommendations via. Beneprotein 2 pack 3 times a day HAve been trying to avoid PEG due to body habitus. Now seems to be making some progress toward vent weaning and may be able to advance swallow as transition to tpiece. Metoclopramide 5 mg IV every 8 hours Pantoprazole 40 mg IV daily for GI prophylaxis Relistor 1 bowel regimen on 06/21. having BMs. FEN/RENAL: Right renal cyst DENNYS overlying Chronic kidney disease stage III Anderson catheter for accurate I's and O's in a critically ill patient with renal failure Creatinine 2.5ATN on 06/24/17. diuresis and KCL supplementation as per above Endo: Diabetes mellitus Medium dose Sliding-scale insulin with Accu-Cheks every 6 hours to maintain euglycemia. Blood glucose at target. Heme: Leukocytosis Chronic thrombocytopenia ?ITP, dating back to 2003 Chronic Apixaban use Status post bone marrow biopsy in IR 06/17. PAth - hypercellular BM. Dr. Aguilera/hematology following Resumed 5 mg twice a day apixaban on 06/22, held for trach, resumed again 06/25, then was held due to worsening renal function. Now renal function improved but still on heparin drip for ease if he requires PEG. Appears he is starting to improve and necessity of PEG is less likely so may transition to eliquis soon. ID: HCAP/aspiration pneumonia sputum culture 06/20 Enterobacter Was on cefepime Flagyl 06/18-06/29. Stopped abx 06/29. Now watching off abx and reculture as indicated. MSK: 2 frontal teeth during intubation removed 2 frontal teeth where dislodged during intubation attempts by ED providers on prior to CCM attempt, and intubation Access - Right IJ CVL 06/[address] PIV and d/c CVL. - Right femoral artery line day- DCd 06/23, R axillary art line placed 06/24/17 DC 06/26/17 Prophylaxis - GI - pantoprazole- - DVT - SCD/IV Heparin PT/OT Case management records reviewed. Select following and he appears appropriate for disposition there from my standpoint. Level 3 Liliya Roberts MD Jun 30, 2017 15:16
[2017-06-30] MEDS: BUMETANIDE INJ 1 MG/4 ML VIAL IV PUSH SCH (17:13)
[2017-06-30] MEDS: METOPROLOL TARTRATE 5 MG/5 ML VIAL IV PUSH PRN (17:31)
[2017-06-30] MEDS: HEPARIN-D5W 25,000 U/250 ML 250 ML IV PRN (19:52)
[2017-06-30] MEDS: POTASSIUM CHLORIDE 25 MEQ EFFERVESCENT TAB NG SCH (20:36)
[2017-06-30] MEDS: ACETAMINOPHEN 325 MG TAB PO PRN (20:37)
[2017-07-01] VITALS (18 sets, daily range): BP systolic 123–150; BP diastolic 72–91; PULSE 84–116; RESP 12–26; TEMP 98.4–99.6; O2SAT 97–100
[2017-07-01] MEDS: SODIUM CHLOR 0.9% 1000 ML INJ 1,000 ML IV SCH (01:25)
--- NOTE | 2017-07-01 03:28 | RADRPT ---
EXAM DATE/TIME: 07/01/2017 02:10 [facility] COMPARISON: CHEST SINGLE AP, June 27, 2017, 4:54. INDICATIONS : Short of breath. MEDICAL HISTORY : None. SURGICAL HISTORY : None. ENCOUNTER: Subsequent ACUITY: 1 week PAIN SCORE: 0/10 LOCATION: Bilateral chest FINDINGS: Portable AP view the chest demonstrates cardiac silhouette size is mildly enlarged. Tracheostomy and NG tube remain present. Lungs are underinflated with atelectasis at the bases. No effusion or pneumot horax is appreciated. Left inferior chest is not completely imaged. CONCLUSION: Underinflation with likely atelectasis at the bases and improved aeration at the left lung base. Kushal Figueroa MD on July 01, 2017 at 3:25 Board Certified Radiologist. This report was verified electronically.
[2017-07-01] MEDS: RESP: ALBUTEROL 2.5 MG/IPRATROPIUM 0.5 MG NEB (SCH) NEB ×4 (04:03→21:59)
[2017-07-01 05:17] LABS: APTT (PATIENT) 53.2 SEC (24.3-30.1)
[2017-07-01] MEDS: METOCLOPRAMIDE HCL 10 MG/2 ML VIAL IV PUSH SCH ×3 (05:29→21:49)
[2017-07-01] MEDS: INSULIN NovoLIN REGULAR SUPPLEMENTAL SCALE SQ SCH ×5 (06:00→23:39)
--- NOTE | 2017-07-01 07:49 | HHI.CCPN ---
Subjective Remarks/Hospital Course This is a 57-year-old -Nepalese male. Date of admission 06/14/2017. Date of consultation 06/17/2017. Past medical history includes poor dentition, seizure disorder NOS, atrial fibrillation, nonischemic cardiomyopathy ejection fraction 15-20%, chronic kidney disease stage III, hypertension, diabetes, morbid obesity and chronic venous insufficiency. Patient also is known history of chronic thrombocytopenia. Patient was admitted really on 06/14 with shortness of breath. Dr. Mccormack/cardiology was consulted. Poor candidate for AICD secondary to noncompliance. Recommended removal of all teeth outpatient with possible placement after that. Resume home medications. Echocardiogram revealed EF 20%. Dilated RV/LV. Moderate MR/TR. Pulmonary arterial pressures measures 50-60 mmHg. During this hospitalization, he was also symptomatically bradycardia his medicines have been adjusted see orders. Dr. Aguilera from hematology was consulted due to chronic trauma cytopenia since 2003. Today, a bone marrow biopsy was performed. Patient was documented received fentanyl and Versed during procedure. Received 2.4 mg Narcan post procedures patient was somnolent. ED physicians came to intubate patient received 20 mg etomidate, 150 mg succinylcholine. Patient was hypoxic. Please see intubation note and code note by Dr. Niesha Fatima. Patient is currently on Yosvany-Synephrine drip. Central line placed emergently due to hemodynamic instability. Arterial line placed by my colleague. 06/18: Arousable to voice and moving all [address] head no acute findings. Troponin peaked at 0.49. Creatinine actually improved. We'll attempt spontaneous breathing trials today. Added when necessary's for blood pressure. 06/19: Peripheral perfusion acceptable. Heart rate better controlled. Start spontaneous breathing trials. 06/20: Improved respiratory effort. Push for extubation. 06/21: Awake and arousable on the ventilator. Tolerating tube feeding. No BM. Afebrile. 06/22: Afebrile. On sedation vacation yesterday was following commands by wiggling toes and squeeze bilateral upper extremities. However, brief one dose patient becomes agitated and gags on ET tube. 06/23: Yesterday, patient coughed up tube into vocal cord region. Unable to deflate balloon. Patient's airway was exchanged by anesthesiology. Saturations remained above 90% at all times. After a tube change, mucous plugging to mainstream. Plan emergent bronchus with clearance of secretions. Sample sent. Currently sedating appears comfortable ventilator. Will need tracheostomy. Mother notified and in agreement. 06/24: Remains intubated sedated, off sedation patient follows commands 4. But failed CPAP trial today due to severe tachycardia and agitation. Plan for OP tracheostomy today 06/25: Brief PA arrest after tracheostomy yesterday in the OR-total duration 2 minutes. No evidence of anoxic injury. BUN/creatinine is 55/2.3 increased from 43/1.4 most likely from ATN secondary to shock. Transaminase elevation also secondary to shock. 06/26: Patient not tolerating CPAP with low PS. Remains on amiodarone for atrial fibrillation. Apixaban on hold due to worsening renal function today 2.5-most likely from ATN-start IV Heparin. Urine output remains excellent. 06/27: Unable to wean ventilator, not tolerating SBTs. Hampered by biventricular failure. 06/28: Failed CPAP trials quickly again today despite increased pressure support. We are balancing heart failure and kidney failure, and losing both battles. 06/29 Follows commands weakly. Placed on 15 over 5 this morning. No significant respiratory secretions. Temp max 99.7 06/30 Tolerating CPAP 15/5 for 6 hours today. Now progressively weaned and tolerating 5/5 with RSBI in 20s. Will [address] on Tpiece up to 2 hours as tolerated. Tmax 100.4. WBC downtrended to 10. Had visitors today and was in good spirits, laughing. Subjective: 07/01: no changes. still tolerating intermittent CPAP. again try t-piece today. good LTAC candidate. Objective Vital Signs Date Time Temp Pulse Resp B/P (MAP) Pulse Ox O2 Delivery O2 Flow Rate FiO2 07/01/17 06:00 104 07/01/17 04:25 99 40 07/01/17 04:00 98.6 26 125/72 (89) 06/30/17 19:00 T-Piece 6.00 Intake and Output 07/01/17 07/01/17 07/01/17 07:59 15:59 23:59 Intake Total 700 ml Output Total 500 ml Balance 200 ml Result Diagram: 06/30/17 0435 06/30/17 0435 Imaging Last Impressions Chest X-Ray 06/22/17 0600 Signed Impressions: Service Date/Time: Thursday, June 22, 2017 03:49 - CONCLUSION: 1. Slight increase in basilar airspace disease since June 19. Endotracheal tube and nasogastric tube unchanged. Anderson Raymond MD Abdomen X-Ray 06/22/17 0000 Signed Impressions: Service Date/Time: Thursday, June 22, 2017 15:43 - CONCLUSION: Nonspecific abdomen. K. Mauricio Culp MD Head CT 06/18/17 0000 Signed Impressions: Service Date/Time: Sunday, June 18, 2017 00:48 - CONCLUSION: Negative exam. No evidence of intracranial hemorrhage. Ronni Capps MD Bone Biopsy CT 06/17/17 0000 Signed Impressions: Service Date/Time: Saturday, June 17, 2017 12:35 - CONCLUSION: Bone marrow aspiration and biopsy complicated by intubation and resuscitation. Pathology is pending. Rell Valentin MD FACR Abdomen Ultrasound 06/16/17 0000 Signed Impressions: Service Date/Time: Friday, June 16, 2017 18:13 - CONCLUSION: Limited sonographic windows due to patient body habitus and bowel gas. Right renal cyst. Visualized portions of the abdomen otherwise within normal limits. Jose Bruno MD Lower Extremity Ultrasound 06/14/17 0000 Signed Impressions: Service Date/Time: Wednesday, June 14, 2017 08:15 - CONCLUSION: Normal examination. Kushal Camacho MD Objective Remarks GENERAL: 57-year-old male, critically ill s/p trach SKIN: Cool and dry. HEAD: Noted front 2 teeth missing status post intubation, poor dentition overall. Normocephalic. EYES: Pupils equal and round about 2 mm bilaterally and slightly reactive. ENT: No nasal bleeding or discharge. Mucous membranes pink and moist. NECK: Trachea midline. No JVD. New trach site clean with no significant bleeding CARDIOVASCULAR: Irreg irreg. intermittently tachycardic RESPIRATORY: equal chest rise. unlabored. GASTROINTESTINAL: Abdomen soft, non-tender, obese. Anasarca with Pitting edema dependent portion of pannus. MUSCULOSKELETAL: Extremities with 2+ bilateral lower extremity edema. NEUROLOGICAL: Awake, eyes are open spontaneously, tracks. Nods and shakes heads to questions, smiles. he is following commands by weekly wiggling toes and squeezing hands bilaterally . Unable to assess speech. Procedures None A/P Assessment and Plan Neuro/Psych: Seizure disorder NOS Cardiac arrest x2 without evidence of anoxic injury Following commands 4 but very weak. EEG 06/23 Normal study. Goal of RA SS -0. Head CT 06/18 revealed no acute intracranial findings Currently on Topamax 100 mg by mouth daily for underlying seizure disorder CV: Cardiac arrest x2 (PEA) Cardiogenic shock-resolved Nonischemic cardiomyopathy Ejection fraction 15-20% Atrial fibrillation with RVR Chronic systolic heart failure Pulmonary hypertension History of chronic atrial fibrillation Hypertension Hospitalization with symptomatic bradycardia Brief PEA for 2 min in OR post trach 06/24, prev PA arrest due to hypoxia in CT room 06/17/17 Cardiogenic shock is now resolved and off Levophed 2-D echocardiogram revealed EF 20%. Dilated LV/RV. Moderate MR/TR. Pulmonary arterial pressures 50-60 mmHg. Cardiac catheterization 2015 revealed 50% LAD stenosis otherwise unremarkable On amiodarone drip 06/24-06/29. Now on amiodarone 200 mg per NG daily. On anticoagulation for a fib...see discussion below. Increase metoprolol 75 bid. Metoprolol 2.5 IV q6 hours prn. . Hypertensive. Continue enalapril 10mg daily, monitor renal function and continue to optimize. Getting labetalol 10 mg when necessary systolic blood pressure greater than 160 Troponin peaked at 0.49. Downward trending. Followed by Dr. Mccormack/cardiology Resp: Acute hypoxic respiratory failure Anterior airway Likely CHINO not on CPAP Now tolerating CPAP and will transition to tpiece 2 hours as tolerated. Vent overnight tonight and resume tpiece in am as tolerated. Performed bedside u/s and has small/moderate L pleural effusion but risk/ benefit not in favor of thoracentesis at this point with body habitus. Received Lasix 06/29. Cr up slightly. will hold diuresis today. Ventilator bundle Albuterol/ipratropium aerosols every 6 hours with albuterol every 2 hours. Chest x-ray right middle lobe infiltrates likely aspiration Repeat CXR 06/27 - cardiomegaly, bibasilar opacity s/p Tracheostomy in OR 06/24 s/p Decadron for airway edema Difficult intubation in CT 06/17/17 GI: Morbid obesity Acute mild protein energy malnutrition Glucerna 1.5 goal 50 cc an hour at goal per nutrition recommendations via. Beneprotein 2 pack 3 times a day HAve been trying to avoid PEG due to body habitus. Now seems to be making some progress toward vent weaning and may be able to advance swallow as transition to tpiece. Metoclopramide 5 mg IV every 8 hours Pantoprazole 40 mg IV daily for GI prophylaxis Relistor 1 bowel regimen on 06/21. having BMs. FEN/RENAL: Right renal cyst DENNYS overlying Chronic kidney disease stage III Anderson catheter for accurate I's and O's in a critically ill patient with renal failure Creatinine 2.5ATN on 06/24/17. hold further diuresis today given slight uptrend in Cr. likely intravascularly euvolemic, although still total body volume overload. Endo: Diabetes mellitus Medium dose Sliding-scale insulin with Accu-Cheks every 6 hours to maintain euglycemia. Blood glucose at target. Heme: Leukocytosis Chronic thrombocytopenia ?ITP, dating back to 2003 Chronic Apixaban use Status post bone marrow biopsy in IR 06/17. PAth - hypercellular BM. Dr. Aguilera/hematology following Resumed 5 mg twice a day apixaban on 06/22, held for trach, resumed again 06/25, then was held due to worsening renal function. Now renal function improved but still on heparin drip for ease if he requires PEG. Appears he is starting to improve and necessity of PEG is less likely so may transition to eliquis soon. ID: HCAP/aspiration pneumonia sputum culture 06/20 Enterobacter Was on cefepime Flagyl 06/18-06/29. Stopped abx 06/29. Now watching off abx and reculture as indicated. MSK: 2 frontal teeth during intubation removed 2 frontal teeth where dislodged during intubation attempts by ED providers on prior to CCM attempt, and intubation Access - Right IJ CVL 06/18 - 06/30 - piv's - Anderson, keeping for ongoing diuresis and close monitoring of uop in the setting of resolving acute kidney injury. Prophylaxis - GI - pantoprazole- - DVT - SCD/IV Heparin PT/OT Case management records reviewed. Select following and he appears appropriate for disposition there from my standpoint. Mamadou Mcgowan MD Jul 01, 2017 07:49
[2017-07-01] MEDS: DOCUSATE SODIUM 50 MG/SENNA 8.6 MG TAB PO SCH ×3 (09:00→21:00)
[2017-07-01] MEDS: SODIUM CHLORIDE 0.9% FLUSH 10 ML FLUSH IV FLUSH SCH ×2 (09:32→21:00)
[2017-07-01] MEDS: PANTOPRAZOLE SODIUM 40 MG VIAL IV SCH (09:32)
[2017-07-01] MEDS: CHLORHEXIDINE 0.12% (ORAL KIT) 15 ML CUP MT SCH ×2 (09:32→20:00)
[2017-07-01] MEDS: ARTIFICIAL TEARS OPTH SOLN 15 ML BTL EACH EYE SCH ×3 (09:32→17:17)
[2017-07-01] MEDS: BUMETANIDE INJ 1 MG/4 ML VIAL IV PUSH SCH ×2 (09:33→17:17)
[2017-07-01] MEDS: POTASSIUM CHLORIDE 25 MEQ EFFERVESCENT TAB NG SCH ×2 (09:34→21:48)
[2017-07-01] MEDS: METOPROLOL TARTRATE 25 MG TAB PO SCH ×2 (09:34→21:48)
[2017-07-01] MEDS: TOPIRAMATE 100 MG TAB PO SCH (09:35)
[2017-07-01] MEDS: AMIODARONE 200 MG TAB NG SCH (09:36)
[2017-07-01] MEDS: ENALAPRIL MALEATE 5 MG TAB NG SCH (09:36)
[2017-07-01 10:04] LABS: BICARBONATE 27.4 MEQ/L (21.0-32.0); POTASSIUM 4.1 MEQ/L (3.5-5.1)
[2017-07-01] MEDS: METOPROLOL TARTRATE 5 MG/5 ML VIAL IV PUSH PRN ×2 (11:00→17:52)
[2017-07-01] MEDS: HEPARIN-D5W 25,000 U/250 ML 250 ML IV PRN (13:11)
[2017-07-01] MEDS: hydrALAZINE HCL 20 MG/ML VIAL IV PUSH PRN (20:34)
[2017-07-02] VITALS (15 sets, daily range): BP systolic 122–168; BP diastolic 78–94; PULSE 80–137; RESP 16–23; TEMP 97.8–99.3; O2SAT 94–100
[2017-07-02] MEDS: SODIUM CHLOR 0.9% 1000 ML INJ 1,000 ML IV SCH ×2 (01:25→06:24)
[2017-07-02] MEDS: CHLORHEXIDINE GLUCONATE 2 % 1 PACK (2 CLOTHS) TOP SCH (04:00)
[2017-07-02] MEDS: RESP: ALBUTEROL 2.5 MG/IPRATROPIUM 0.5 MG NEB (SCH) NEB ×2 (04:08→09:11)
[2017-07-02 05:02] LABS: HEMATOCRIT 37.7 % (39.0-51.0); MEAN CELL VOLUME 90.1 FL (80.0-100.0); MEAN CORPUSCULAR HEMOGLOBIN 29.1 PG (27.0-34.0); MEAN CORPUSCULAR HGB CONC 32.3 % (32.0-36.0); PLATELET COUNT 115 TH/MM3 (150-450); RED BLOOD COUNT 4.18 MIL/MM3 (4.50-5.90); RED CELL DISTRIBUTION WIDTH 14.9 % (11.6-17.2); REVIEW FLAG FINAL; WHITE BLOOD COUNT 9.6 TH/MM3 (4.0-11.0)
[2017-07-02 05:10] LABS: APTT (PATIENT) 46.4 SEC (24.3-30.1)
[2017-07-02 05:25] LABS: BICARBONATE 28.3 MEQ/L (21.0-32.0); POTASSIUM 4.4 MEQ/L (3.5-5.1)
[2017-07-02] MEDS: METOCLOPRAMIDE HCL 10 MG/2 ML VIAL IV PUSH SCH ×3 (05:57→21:48)
[2017-07-02] MEDS: INSULIN NovoLIN REGULAR SUPPLEMENTAL SCALE SQ SCH ×3 (06:00→17:55)
[2017-07-02] MEDS: HEPARIN-D5W 25,000 U/250 ML 250 ML IV PRN (06:24)
[2017-07-02] MEDS: ACETAMINOPHEN/HYDROcodone 325 MG/5 MG TAB PO PRN ×2 (06:50→13:00)
--- NOTE | 2017-07-02 07:23 | HHI.CCPN ---
Subjective Remarks/Hospital Course This is a 57-year-old -[place] male. Date of admission 06/14/2017. Date of consultation 06/17/2017. Past medical history includes poor dentition, seizure disorder NOS, atrial fibrillation, nonischemic cardiomyopathy ejection fraction 15-20%, chronic kidney disease stage III, hypertension, diabetes, morbid obesity and chronic venous insufficiency. Patient also is known history of chronic thrombocytopenia. Patient was admitted really on 06/14 with shortness [address] breath[address] Dr. Mccormack/cardiology was consulted. Poor candidate for AICD secondary to noncompliance. Recommended removal of all teeth outpatient with possible placement after that. Resume home medications. Echocardiogram revealed EF 20%. Dilated RV/LV. Moderate MR/TR. Pulmonary arterial pressures measures 50-60 mmHg. During this hospitalization, he was also symptomatically bradycardia his medicines have been adjusted see orders. Dr. Aguilera from hematology was consulted due to chronic trauma cytopenia since 2003. Today, a bone marrow biopsy was performed. Patient was documented received fentanyl and Versed during procedure. Received 2.4 mg Narcan post procedures patient was somnolent. ED physicians came to intubate patient received 20 mg etomidate, 150 mg succinylcholine. Patient was hypoxic. Please see intubation note and code note by Dr. Niesha Fatima. Patient is currently on Yosvany-Synephrine drip. Central line placed emergently due to hemodynamic instability. Arterial line placed by my colleague. 06/18: Arousable to voice and moving all [address] head no acute findings. Troponin peaked at 0.49. Creatinine actually improved. We'll attempt spontaneous breathing trials today. Added when necessary's for blood pressure. 06/19: Peripheral perfusion acceptable. Heart rate better controlled. Start spontaneous breathing trials. 06/20: Improved respiratory effort. Push for extubation. 06/21: Awake and arousable on the ventilator. Tolerating tube feeding. No BM. Afebrile. 06/22: Afebrile. On sedation vacation yesterday was following commands by wiggling toes and squeeze bilateral upper extremities. However, brief one dose patient becomes agitated and gags on ET tube. 06/23: Yesterday, patient coughed up tube into vocal cord region. Unable to deflate balloon. Patient's airway was exchanged by anesthesiology. Saturations remained above 90% at all times. After a tube change, mucous plugging to mainstream. Plan emergent bronchus with clearance of secretions. Sample sent. Currently sedating appears comfortable ventilator. Will need tracheostomy. Mother notified and in agreement. 06/24: Remains intubated sedated, off sedation patient follows commands 4. But failed CPAP trial today due to severe tachycardia and agitation. Plan for OP tracheostomy today 06/25: Brief PA arrest after tracheostomy yesterday in the OR-total duration 2 minutes. No evidence of anoxic injury. BUN/creatinine is 55/2.3 increased from 43/1.4 most likely from ATN secondary to shock. Transaminase elevation also secondary to shock. 06/26: Patient not tolerating CPAP with low PS. Remains on amiodarone for atrial fibrillation. Apixaban on hold due to worsening renal function today 2.5-most likely from ATN-start IV Heparin. Urine output remains excellent. 06/27: Unable to wean ventilator, not tolerating SBTs. Hampered by biventricular failure. 06/28: Failed CPAP trials quickly again today despite increased pressure support. We are balancing heart failure and kidney failure, and losing both battles. 06/29 Follows commands weakly. Placed on 15 over 5 this morning. No significant respiratory secretions. Temp max 99.7 06/30 Tolerating CPAP 15/5 for 6 hours today. Now progressively weaned and tolerating 5/5 with RSBI in 20s. Will place on Tpiece up to 2 hours as tolerated. Tmax 100.4. WBC downtrended to 10. Had visitors today and was in good spirits, laughing. Subjective: 07/01: no changes. still tolerating intermittent CPAP. again try t-piece today. good LTAC candidate. 07/02: Tolerating T-piece for 12 hours now. Objective Vital Signs Date Time Temp Pulse Resp B/P (MAP) Pulse Ox O2 Delivery O2 Flow Rate FiO2 07/02/17 06:00 110 07/02/17 04:17 100 T-piece 6.00 40 07/02/17 04:00 99.1 19 136/88 (104) Intake and Output 07/02/17 07/02/17 07/03/17 08:00 16:00 00:00 Intake Total 2043 ml Output Total 1375 ml Balance 668 ml Result Diagram: 07/02/17 0350 07/02/17 0350 Imaging Last Impressions Chest X-Ray 06/22/17 0600 Signed Impressions: Service Date/Time: Thursday, June 22, 2017 03:49 - CONCLUSION: 1. Slight increase in basilar airspace disease since June 19. Endotracheal tube and nasogastric tube unchanged. Anderson Raymond MD Abdomen X-Ray 06/22/17 0000 Signed Impressions: Service Date/Time: Thursday, June 22, 2017 15:43 - CONCLUSION: Nonspecific abdomen. KMark Culp MD Head CT 06/18/17 0000 Signed Impressions: Service Date/Time: Sunday, June 18, 2017 00:48 - CONCLUSION: Negative exam. No evidence of intracranial hemorrhage. Ronni Capps MD Bone Biopsy CT 06/17/17 0000 Signed Impressions: Service Date/Time: Saturday, June 17, 2017 12:35 - CONCLUSION: Bone marrow aspiration and biopsy complicated by intubation and resuscitation. Pathology is pending. Rell Valentin MD FACR Abdomen Ultrasound 06/16/17 0000 Signed Impressions: Service Date/Time: Friday, June 16, 2017 18:13 - CONCLUSION: Limited sonographic windows due to patient body habitus and bowel gas. Right renal cyst. Visualized portions of the abdomen otherwise within normal limits. Jose Bruno MD Lower Extremity Ultrasound 06/14/17 0000 Signed Impressions: Service Date/Time: Wednesday, June 14, 2017 08:15 - CONCLUSION: Normal examination. Kushal Camacho MD Objective Remarks GENERAL: 57-year-old male, critically ill s/p trach SKIN: Cool and dry. HEAD: Noted front 2 teeth missing status post intubation, poor dentition overall. Normocephalic. EYES: Pupils equal and round about 2 mm bilaterally and slightly reactive. ENT: No nasal bleeding or discharge. Mucous membranes pink and moist. NECK: Trachea midline. No JVD. New trach site clean, dry. CARDIOVASCULAR: Irreg irreg. intermittently tachycardic RESPIRATORY: equal chest rise. unlabored. GASTROINTESTINAL: Abdomen soft, non-tender, obese. Anasarca with Pitting edema dependent portion of pannus. MUSCULOSKELETAL: Extremities with 2+ bilateral lower extremity edema. NEUROLOGICAL: Awake, eyes are open spontaneously, tracks. Nods and shakes heads to questions, smiles. He is following commands by weekly wiggling toes and squeezing hands bilaterally . Unable to assess speech. Procedures None A/P Assessment and Plan Neuro/Psych: Seizure disorder NOS Cardiac arrest x2 without evidence of anoxic injury Following commands 4 but very weak. EEG 06/23 Normal study. Goal of RA SS -0. Head CT 06/18 revealed no acute intracranial findings Currently on Topamax 100 mg by mouth daily for underlying seizure disorder CV: Cardiac arrest x2 (PEA) Cardiogenic shock-resolved Nonischemic cardiomyopathy Ejection fraction 15-20% Atrial fibrillation with RVR Chronic systolic heart failure Pulmonary hypertension History of chronic atrial fibrillation Hypertension Hospitalization with symptomatic bradycardia Brief PEA for 2 min in OR post trach 06/24, prev PA arrest due to hypoxia in CT room 06/17/17 Cardiogenic shock is now resolved and off Levophed 2-D echocardiogram revealed EF 20%. Dilated LV/RV. Moderate MR/TR. Pulmonary arterial pressures 50-60 mmHg. Cardiac catheterization 2015 revealed 50% LAD stenosis otherwise unremarkable On amiodarone drip 06/24-06/29. Now on amiodarone 200 mg per NG daily. On anticoagulation for a fib...see discussion below. Increase metoprolol 75 bid. Metoprolol 2.5 IV q6 hours prn. . Hypertensive. Continue enalapril 10mg daily, monitor renal function and continue to optimize. Getting labetalol 10 mg when necessary systolic blood pressure greater than 160 Troponin peaked at 0.49. Downward trending. Followed by Dr. Mccormack/cardiology Resp: Acute hypoxic respiratory failure Anterior airway Likely CHINO not on CPAP Now tolerating CPAP and will transition to t-piece 2 hours as tolerated. Vent overnight tonight and resume tpiece in am as tolerated. Performed bedside u/s and has small/moderate L pleural effusion but risk/ benefit not in favor of thoracentesis at this point with body habitus. Received Lasix 06/29. Cr up slightly. will hold diuresis today. Ventilator bundle Albuterol/ipratropium aerosols every 6 hours with albuterol every 2 hours. Chest x-ray right middle lobe infiltrates likely aspiration Repeat CXR 06/27 - cardiomegaly, bibasilar opacity s/p Tracheostomy in OR 06/24 s/p Decadron for airway edema Difficult intubation in CT 06/17/17 Tolerating T-piece for 12 hours 07/02 GI: Morbid obesity Acute mild protein energy malnutrition Glucerna 1.5 goal 50 cc an hour at goal per nutrition recommendations via. Beneprotein 2 pack 3 times a day HAve been trying to avoid PEG due to body habitus. Now seems to be making some progress toward vent weaning and may be able to advance swallow as transition to tpiece. Metoclopramide 5 mg IV every 8 hours Pantoprazole 40 mg IV daily for GI prophylaxis Relistor 1 bowel regimen on 06/21. having BMs. FEN/RENAL: Right renal cyst DENNYS overlying Chronic kidney disease stage III Anderson catheter for accurate I's and O's in a critically ill patient with renal failure Creatinine 2.5ATN on 06/24/17. hold further diuresis today given slight uptrend in Cr. likely intravascularly euvolemic, although still total body volume overload. Endo: Diabetes mellitus Medium dose Sliding-scale insulin with Accu-Cheks every 6 hours to maintain euglycemia. Blood glucose at target. Heme: Leukocytosis Chronic thrombocytopenia ?ITP, dating back to 2003 Chronic Apixaban use Status post bone marrow biopsy in IR 06/17. PAth - hypercellular BM. Dr. Aguilera/hematology following Resumed 5 mg twice a day apixaban on 06/22, held for trach, resumed again 06/25, then was held due to worsening renal function. Now renal function improved but still on heparin drip for ease if he requires PEG. Appears he is starting to improve and necessity of PEG is less likely so may transition to eliquis soon. ID: HCAP/aspiration pneumonia sputum culture 06/20 Enterobacter Was on cefepime Flagyl 06/18-06/29. Stopped abx 06/29. Now watching off abx and reculture as indicated. MSK: 2 frontal teeth during intubation removed 2 frontal teeth where dislodged during intubation attempts by ED providers on prior to CCM attempt, and intubation Access - Right IJ CVL 06/18 - 06/30 - piv's - Anderson, keeping for ongoing diuresis and close monitoring of uop in the setting of resolving acute kidney injury. Prophylaxis - GI - pantoprazole- - DVT - SCD/IV Heparin PT/OT Case management records reviewed. [facility] and he remains appropriate for disposition there from my standpoint. Sohail Ma MD Jul 02, 2017 07:23
[2017-07-02] MEDS: CHLORHEXIDINE 0.12% (ORAL KIT) 15 ML CUP MT SCH ×2 (07:51→20:00)
[2017-07-02] MEDS: PANTOPRAZOLE SODIUM 40 MG VIAL IV SCH (08:07)
[2017-07-02] MEDS: BUMETANIDE INJ 1 MG/4 ML VIAL IV PUSH SCH ×2 (08:09→17:25)
[2017-07-02] MEDS: POTASSIUM CHLORIDE 25 MEQ EFFERVESCENT TAB NG SCH ×2 (08:10→19:38)
[2017-07-02] MEDS: TOPIRAMATE 100 MG TAB PO SCH (08:10)
[2017-07-02] MEDS: ENALAPRIL MALEATE 5 MG TAB NG SCH (08:11)
[2017-07-02] MEDS: AMIODARONE 200 MG TAB NG SCH (08:12)
[2017-07-02] MEDS: METOPROLOL TARTRATE 25 MG TAB PO SCH ×2 (08:13→19:38)
[2017-07-02] MEDS: DOCUSATE SODIUM 50 MG/SENNA 8.6 MG TAB PO SCH ×2 (08:14→19:38)
[2017-07-02] MEDS: SODIUM CHLORIDE 0.9% FLUSH 10 ML FLUSH IV FLUSH SCH ×2 (08:14→19:44)
[2017-07-02] MEDS: ARTIFICIAL TEARS OPTH SOLN 15 ML BTL EACH EYE SCH ×3 (08:15→17:25)
[2017-07-02] MEDS: LABETALOL HCL 100 MG/20 ML VIAL IV PUSH PRN (13:13)
[2017-07-02] MEDS: hydrALAZINE HCL 20 MG/ML VIAL IV PUSH PRN (18:15)
[2017-07-03] VITALS (15 sets, daily range): BP systolic 122–156; BP diastolic 85–103; PULSE 93–128; RESP 14–25; TEMP 98–100; O2SAT 97–100
[2017-07-03] MEDS: ACETAMINOPHEN/HYDROcodone 325 MG/5 MG TAB PO PRN (02:26)
[2017-07-03] MEDS: hydrALAZINE HCL 20 MG/ML VIAL IV PUSH PRN (02:27)
[2017-07-03] MEDS: HEPARIN-D5W 25,000 U/250 ML 250 ML IV PRN ×2 (02:32→19:59)
[2017-07-03] MEDS: RESP: ALBUTEROL 2.5 MG/IPRATROPIUM 0.5 MG NEB (SCH) NEB ×4 (03:32→21:22)
[2017-07-03] MEDS: CHLORHEXIDINE GLUCONATE 2 % 1 PACK (2 CLOTHS) TOP SCH (04:00)
[2017-07-03 04:22] LABS: HEMATOCRIT 41.5 % (39.0-51.0); MEAN CELL VOLUME 89.6 FL (80.0-100.0); MEAN CORPUSCULAR HEMOGLOBIN 29.2 PG (27.0-34.0); MEAN CORPUSCULAR HGB CONC 32.6 % (32.0-36.0); PLATELET COUNT 124 TH/MM3 (150-450); RED BLOOD COUNT 4.63 MIL/MM3 (4.50-5.90); RED CELL DISTRIBUTION WIDTH 14.4 % (11.6-17.2); REVIEW FLAG FINAL; WHITE BLOOD COUNT 10.7 TH/MM3 (4.0-11.0)
[2017-07-03 04:43] LABS: APTT (PATIENT) 44.3 SEC (24.3-30.1)
[2017-07-03 04:45] LABS: BICARBONATE 29.4 MEQ/L (21.0-32.0); POTASSIUM 4.5 MEQ/L (3.5-5.1)
[2017-07-03] MEDS: METOCLOPRAMIDE HCL 10 MG/2 ML VIAL IV PUSH SCH ×3 (05:07→23:30)
[2017-07-03] MEDS: METOPROLOL TARTRATE 5 MG/5 ML VIAL IV PUSH PRN ×2 (05:07→18:31)
[2017-07-03] MEDS: INSULIN NovoLIN REGULAR SUPPLEMENTAL SCALE SQ SCH ×4 (06:00→18:00)
[2017-07-03] MEDS: CHLORHEXIDINE 0.12% (ORAL KIT) 15 ML CUP MT SCH ×2 (08:00→20:00)
[2017-07-03] MEDS: DOCUSATE SODIUM 50 MG/SENNA 8.6 MG TAB PO SCH ×2 (09:00→20:10)
[2017-07-03] MEDS: ARTIFICIAL TEARS OPTH SOLN 15 ML BTL EACH EYE SCH ×3 (09:00→18:00)
[2017-07-03] MEDS: PANTOPRAZOLE SODIUM 40 MG VIAL IV SCH (09:18)
[2017-07-03] MEDS: BUMETANIDE INJ 1 MG/4 ML VIAL IV PUSH SCH ×2 (09:18→18:19)
[2017-07-03] MEDS: SODIUM CHLORIDE 0.9% FLUSH 10 ML FLUSH IV FLUSH SCH ×2 (09:18→20:10)
[2017-07-03] MEDS: ENALAPRIL MALEATE 5 MG TAB NG SCH (09:18)
[2017-07-03] MEDS: POTASSIUM CHLORIDE 25 MEQ EFFERVESCENT TAB NG SCH ×2 (09:19→20:10)
[2017-07-03] MEDS: METOPROLOL TARTRATE 25 MG TAB PO SCH ×2 (09:20→20:09)
[2017-07-03] MEDS: TOPIRAMATE 100 MG TAB PO SCH (09:20)
[2017-07-03] MEDS: AMIODARONE 200 MG TAB NG SCH (09:20)
--- NOTE | 2017-07-03 13:12 | HHI.CCPN ---
Subjective Remarks/Hospital Course This is a 57-year-old -[place]i male. Date of admission 06/14/2017. Date of consultation 06/17/2017. Past medical history includes poor dentition, seizure disorder NOS, atrial fibrillation, nonischemic cardiomyopathy ejection fraction 15-20%, chronic kidney disease stage III, hypertension, diabetes, morbid obesity and chronic venous insufficiency. Patient also is known history of chronic thrombocytopenia. Patient was admitted really on 06/14 with shortness of breath. Dr. Mccormack/cardiology was consulted. Poor candidate for AICD secondary to noncompliance. Recommended removal of all teeth outpatient with possible placement after that. Resume home medications. Echocardiogram revealed EF 20%. Dilated RV/LV. Moderate MR/TR. Pulmonary arterial pressures measures 50-60 mmHg. During this hospitalization, he was also symptomatically bradycardia his medicines have been adjusted see orders. Dr. Aguilera from hematology was consulted due to chronic trauma cytopenia since 2003. Today, a bone marrow biopsy was performed. Patient was documented received fentanyl and Versed during procedure. Received 2.4 mg Narcan post procedures patient was somnolent. ED physicians came to intubate patient received 20 mg etomidate, 150 mg succinylcholine. Patient was hypoxic. Please see intubation note and code note by Dr. Niesha Fatima. Patient is currently on Yosvany-Synephrine drip. Central line placed emergently due to hemodynamic instability. Arterial line placed by my colleague. 06/18: Arousable to voice and moving all [address] head no acute findings. Troponin peaked at 0.49. Creatinine actually improved. We'll attempt spontaneous breathing trials today. Added when necessary's for blood pressure. 06/19: Peripheral perfusion acceptable. Heart rate better controlled. Start spontaneous breathing trials. 06/20: Improved respiratory effort. Push for extubation. 06/21: Awake and arousable on the ventilator. Tolerating tube feeding. No BM. Afebrile. 06/22: Afebrile. On sedation vacation yesterday was following commands by wiggling toes and squeeze bilateral upper extremities. However, brief one dose patient becomes agitated and gags on ET tube. 06/23: Yesterday, patient coughed up tube into vocal cord region. Unable to deflate balloon. Patient's airway was exchanged by anesthesiology. Saturations remained above 90% at all times. After a tube change, mucous plugging to mainstream. Plan emergent bronchus with clearance of secretions. Sample sent. Currently sedating appears comfortable ventilator. Will need tracheostomy. Mother notified and in agreement. 06/24: Remains intubated sedated, off sedation patient follows commands 4. But failed CPAP trial today due to severe tachycardia and agitation. Plan for OP tracheostomy today 06/25: Brief PA arrest after tracheostomy yesterday in the OR-total duration 2 minutes. No evidence of anoxic injury. BUN/creatinine is 55/2.3 increased from 43/1.4 most likely from ATN secondary to shock. Transaminase elevation also secondary to shock. 06/26: Patient not tolerating CPAP with low PS. Remains on amiodarone for atrial fibrillation. Apixaban on hold due to worsening renal function today 2.5-most likely from ATN-start IV Heparin. Urine output remains excellent. 06/27: Unable to wean ventilator, not tolerating SBTs. Hampered by biventricular failure. 06/28: Failed CPAP trials quickly again today despite increased pressure support. We are balancing heart failure and kidney failure, and losing both battles. 06/29 Follows commands weakly. Placed on 15 over 5 this morning. No significant respiratory secretions. Temp max 99.7 06/30 Tolerating CPAP 15/5 for 6 hours today. Now progressively weaned and tolerating 5/5 with RSBI in 20s. Will place on Tpiece up to 2 hours as tolerated. Tmax 100.4. WBC downtrended to 10. Had visitors today and was in good spirits, laughing. Subjective: 07/01: no changes. still tolerating intermittent CPAP. again try t-piece today. good LTAC candidate. 07/02: Tolerating T-piece for 12 hours now. 07/03: Continued good response to diuretics. Tolerating T-piece well. Objective Vital Signs Date Time Temp Pulse Resp B/P (MAP) Pulse Ox O2 Delivery O2 Flow Rate FiO2 07/03/17 12:00 99.7 110 22 137/89 (105) 97 07/03/17 07:00 T-Piece 35 07/03/17 03:43 6.00 Intake and Output 07/03/17 07/03/17 07/03/17 07:59 15:59 23:59 Intake Total 775 ml Output Total 2300 ml Balance -1525 ml Result Diagram: 07/03/17 0359 07/03/17 0359 Imaging Last Impressions Chest X-Ray 06/22/17 0600 Signed Impressions: Service Date/Time: Thursday, June 22, 2017 03:49 - CONCLUSION: 1. Slight increase in basilar airspace disease since June 19. Endotracheal tube and nasogastric tube unchanged. Anderson Raymond MD Abdomen X-Ray 06/22/17 0000 Signed Impressions: Service Date/Time: Thursday, June 22, 2017 15:43 - CONCLUSION: Nonspecific abdomen. K. Mauricio Culp MD Head CT 06/18/17 0000 Signed Impressions: Service Date/Time: Sunday, June 18, 2017 00:48 - CONCLUSION: Negative exam. No evidence of intracranial hemorrhage. Ronni Capps MD Bone Biopsy CT 06/17/17 0000 Signed Impressions: Service Date/Time: Saturday, June 17, 2017 12:35 - CONCLUSION: Bone marrow aspiration and biopsy complicated by intubation and resuscitation. Pathology is pending. Rell Valentin MD FACR Abdomen Ultrasound 06/16/17 0000 Signed Impressions: Service Date/Time: Friday, June 16, 2017 18:13 - CONCLUSION: Limited sonographic windows due to patient body habitus and bowel gas. Right renal cyst. Visualized portions of the abdomen otherwise within normal limits. Jose Bruno MD Lower Extremity Ultrasound 06/14/17 0000 Signed Impressions: Service Date/Time: Wednesday, June 14, 2017 08:15 - CONCLUSION: Normal examination. Kushal Camacho MD Objective Remarks GENERAL: 57-year-old male, critically ill s/p trach SKIN: Warm and dry. HEAD: Noted front 2 teeth missing status post intubation, poor dentition overall. Normocephalic. EYES: Pupils equal and round about 2 mm bilaterally and slightly reactive. ENT: No nasal bleeding or discharge. Mucous membranes pink and moist. NECK: Trachea midline. No JVD. Trach site clean, dry. CARDIOVASCULAR: Irreg irreg. intermittently tachycardic RESPIRATORY: equal chest rise. unlabored. GASTROINTESTINAL: Abdomen soft, non-tender, obese. Edematous. MUSCULOSKELETAL: Extremities with 2+ bilateral lower extremity edema. NEUROLOGICAL: Awake, eyes are open spontaneously, tracks. Nods and shakes heads to questions, smiles. He is following commands by wiggling toes and squeezing hands bilaterally . Unable to assess speech. Procedures None A/P Assessment and Plan Neuro/Psych: Seizure disorder NOS Cardiac arrest x2 without evidence of anoxic injury Following commands 4 but very weak. EEG 06/23 Normal study. Goal of RA SS -0. Head CT 06/18 revealed no acute intracranial findings Currently on Topamax 100 mg by mouth daily for underlying seizure disorder CV: Cardiac arrest x2 (PEA) Cardiogenic shock-resolved Nonischemic cardiomyopathy Ejection fraction 15-20% Atrial fibrillation with RVR Chronic systolic heart failure Pulmonary hypertension History of chronic atrial fibrillation Hypertension Hospitalization with symptomatic bradycardia Brief PEA for 2 min in OR post trach 06/24, prev PA arrest due to hypoxia in CT room 06/17/17 Cardiogenic shock is now resolved and off Levophed 2-D echocardiogram revealed EF 20%. Dilated LV/RV. Moderate MR/TR. Pulmonary arterial pressures 50-60 mmHg. Cardiac catheterization 2015 revealed 50% LAD stenosis otherwise unremarkable On amiodarone drip 06/24-06/29. Now on amiodarone 200 mg per NG daily. On anticoagulation for a fib...see discussion below. Increase metoprolol 75 bid. Metoprolol 2.5 IV q6 hours prn. . Hypertensive. Continue enalapril 10mg daily, monitor renal function and continue to optimize. Getting labetalol 10 mg when necessary systolic blood pressure greater than 160 Troponin peaked at 0.49. Downward trending. Followed by Dr. Mccormack/cardiology Resp: Acute hypoxic respiratory failure Anterior airway Likely CHINO not on CPAP Now tolerating CPAP and will transition to t-piece 2 hours as tolerated. Vent overnight tonight and resume tpiece in am as tolerated. Performed bedside u/s and has small/moderate L pleural effusion but risk/ benefit not in favor of thoracentesis at this point with body habitus. Received Lasix 06/29. Cr up slightly. will hold diuresis today. Ventilator bundle Albuterol/ipratropium aerosols every 6 hours with albuterol every 2 hours. Chest x-ray right middle lobe infiltrates likely aspiration Repeat CXR 06/27 - cardiomegaly, bibasilar opacity s/p Tracheostomy in OR 06/24 s/p Decadron for airway edema Difficult intubation in CT 06/17/17 Tolerating T-piece for 36 hours 07/03 GI: Morbid obesity Acute mild protein energy malnutrition Glucerna 1.5 goal 50 cc an hour at goal per nutrition recommendations via. Beneprotein 2 pack 3 times a day HAve been trying to avoid PEG due to body habitus. Now seems to be making some progress toward vent weaning and may be able to advance swallow as transition to tpiece. Metoclopramide 5 mg IV every 8 hours Pantoprazole 40 mg IV daily for GI prophylaxis Relistor 1 bowel regimen on 06/21. having BMs. FEN/RENAL: Right renal cyst DENNYS overlying Chronic kidney disease stage III Anderson catheter for accurate I's and O's in a critically ill patient with renal failure Creatinine 2.5ATN on 06/24/17. hold further diuresis today given slight uptrend in Cr. likely intravascularly euvolemic, although still total body volume overload. Endo: Diabetes mellitus Medium dose Sliding-scale insulin with Accu-Cheks every 6 hours to maintain euglycemia. Blood glucose at target. Heme: Leukocytosis Chronic thrombocytopenia ?ITP, dating back to 2003 Chronic Apixaban use Status post bone marrow biopsy in IR 06/17. PAth - hypercellular BM. Dr. Aguilera/hematology following Resumed 5 mg twice a day apixaban on 06/22, held for trach, resumed again 06/25, then was held due to worsening renal function. Now renal function improved but still on heparin drip for ease if he requires PEG. Appears he is starting to improve and necessity of PEG is less likely so may transition to eliquis soon. ID: HCAP/aspiration pneumonia sputum culture 06/20 Enterobacter Was on cefepime Flagyl 06/18-06/29. Stopped abx 06/29. Now watching off abx and reculture as indicated. MSK: 2 frontal teeth during intubation removed 2 frontal teeth where dislodged during intubation attempts by ED providers on prior to CCM attempt, and intubation Access - Right IJ CVL 06/18 - 06/30 - piv's - Anderson, keeping for ongoing diuresis and close monitoring of uop in the setting of resolving acute kidney injury. Prophylaxis - GI - pantoprazole- - DVT - SCD/IV Heparin PT/OT Case management records reviewed. [facility] following and he remains appropriate for disposition there from my standpoint. Sohail Ma MD Jul 03, 2017 13:12
[2017-07-04] VITALS (16 sets, daily range): BP systolic 125–164; BP diastolic 9–90; PULSE 94–126; RESP 12–33; TEMP 97.9–99; O2SAT 94–100
[2017-07-04] MEDS: ACETAMINOPHEN/HYDROcodone 325 MG/5 MG TAB PO PRN ×2 (03:36→20:28)
[2017-07-04] MEDS: SODIUM CHLOR 0.9% 1000 ML INJ 1,000 ML IV SCH (03:41)
[2017-07-04] MEDS: METOPROLOL TARTRATE 5 MG/5 ML VIAL IV PUSH PRN (03:41)
[2017-07-04] MEDS: CHLORHEXIDINE GLUCONATE 2 % 1 PACK (2 CLOTHS) TOP SCH (04:00)
[2017-07-04 04:09] LABS: HEMATOCRIT 40.6 % (39.0-51.0); MEAN CELL VOLUME 89.7 FL (80.0-100.0); MEAN CORPUSCULAR HEMOGLOBIN 28.8 PG (27.0-34.0); MEAN CORPUSCULAR HGB CONC 32.1 % (32.0-36.0); PLATELET COUNT 130 TH/MM3 (150-450); RED BLOOD COUNT 4.53 MIL/MM3 (4.50-5.90); RED CELL DISTRIBUTION WIDTH 14.2 % (11.6-17.2); REVIEW FLAG FINAL; WHITE BLOOD COUNT 10.2 TH/MM3 (4.0-11.0)
[2017-07-04 04:36] LABS: BICARBONATE 30.6 MEQ/L (21.0-32.0); POTASSIUM 4.8 MEQ/L (3.5-5.1)
[2017-07-04] MEDS: RESP: ALBUTEROL 2.5 MG/3 ML NEB (PRN) INH (05:08)
[2017-07-04] MEDS: MORPHINE SULFATE 4 MG/ML INJ IV PUSH PRN (05:30)
[2017-07-04] MEDS: METOCLOPRAMIDE HCL 10 MG/2 ML VIAL IV PUSH SCH ×3 (05:30→22:39)
[2017-07-04] MEDS: INSULIN NovoLIN REGULAR SUPPLEMENTAL SCALE SQ SCH ×4 (05:47→17:45)
[2017-07-04] MEDS ORDERED: DIGOXIN 0.5 MG/2 ML VIAL IV PUSH ONE ×2 (07:00→14:00)
--- NOTE | 2017-07-04 07:09 | HHI.CCPN ---
Subjective Remarks/Hospital Course This is a 57-year-old -German male. Date of admission 06/14/2017. Date of consultation 06/17/2017. Past medical history includes poor dentition, seizure disorder NOS, atrial fibrillation, nonischemic cardiomyopathy ejection fraction 15-20%, chronic kidney disease stage III, hypertension, diabetes, morbid obesity and chronic venous insufficiency. Patient also is known history of chronic thrombocytopenia. Patient was admitted really on 06/14 with shortness of breath. Dr. Mccormack/cardiology was consulted. Poor candidate for AICD secondary to noncompliance. Recommended removal of all teeth outpatient with possible placement after that. Resume home medications. Echocardiogram revealed EF 20%. Dilated RV/LV. Moderate MR/TR. Pulmonary arterial pressures measures 50-60 mmHg. During this hospitalization, he was also symptomatically bradycardia his medicines have been adjusted see orders. Dr. Aguilera from hematology was consulted due to chronic trauma cytopenia since 2003. Today, a bone marrow biopsy was performed. Patient was documented received fentanyl and Versed during procedure. Received 2.4 mg Narcan post procedures patient was somnolent. ED physicians came to intubate patient received 20 mg etomidate, 150 mg succinylcholine. Patient was hypoxic. Please see intubation note and code note by Dr. Niesha Fatima. Patient is currently on Yosvany-Synephrine drip. Central line placed emergently due to hemodynamic instability. Arterial line placed by my colleague. 06/18: Arousable to voice and moving all [address] head no acute findings. Troponin peaked at 0.49. Creatinine actually improved. We'll attempt spontaneous breathing trials today. Added when necessary's for blood pressure. 06/19: Peripheral perfusion acceptable. Heart rate better controlled. Start spontaneous breathing trials. 06/20: Improved respiratory effort. Push for extubation. 06/21: Awake and arousable on the ventilator. Tolerating tube feeding. No BM. Afebrile. 06/22: Afebrile. On sedation vacation yesterday was following commands by wiggling toes and squeeze bilateral upper extremities. However, brief one dose patient becomes agitated and gags on ET tube. 06/23: Yesterday, patient coughed up tube into vocal cord region. Unable to deflate balloon. Patient's airway was exchanged by anesthesiology. Saturations remained above 90% at all times. After a tube change, mucous plugging to mainstream. Plan emergent bronchus with clearance of secretions. Sample sent. Currently sedating appears comfortable ventilator. Will need tracheostomy. Mother notified and in agreement. 06/24: Remains intubated sedated, off sedation patient follows commands 4. But failed CPAP trial today due to severe tachycardia and agitation. Plan for OP tracheostomy today 06/25: Brief PA arrest after tracheostomy yesterday in the OR-total duration 2 minutes. No evidence of anoxic injury. BUN/creatinine is 55/2.3 increased from 43/1.4 most likely from ATN secondary to shock. Transaminase elevation also secondary to shock. 06/26: Patient not tolerating CPAP with low PS. Remains on amiodarone for atrial fibrillation. Apixaban on hold due to worsening renal function today 2.5-most likely from ATN-start IV Heparin. Urine output remains excellent. 06/27: Unable to wean ventilator, not tolerating SBTs. Hampered by biventricular failure. 06/28: Failed CPAP trials quickly again today despite increased pressure support. We are balancing heart failure and kidney failure, and losing both battles. 06/29 Follows commands weakly. Placed on 15 over 5 this morning. No significant respiratory secretions. Temp max 99.7 06/30 Tolerating CPAP 15/5 for 6 hours today. Now progressively weaned and tolerating 5/5 with RSBI in 20s. Will place on Tpiece up to 2 hours as tolerated. Tmax 100.4. WBC downtrended to 10. Had visitors today and was in good spirits, laughing. 07/01: no changes. still tolerating intermittent CPAP. again try t-piece today. good LTAC candidate. 07/02: Tolerating T-piece for 12 hours now. 07/03: Continued good response to diuretics. Tolerating T-piece well. 07/04: Will try low dose digoxin and see if we can get better rate control. Follow response and level. Objective Vital Signs Date Time Temp Pulse Resp B/P (MAP) Pulse Ox O2 Delivery O2 Flow Rate FiO2 07/04/17 06:00 126 07/04/17 05:35 23 07/04/17 04:13 99 T-piece 6.00 28 07/04/17 04:00 98.8 125/72 (89) Intake and Output 07/04/17 07/04/17 07/05/17 08:00 16:00 00:00 Intake Total 854 ml Output Total 1600 ml Balance -746 ml Result Diagram: 07/04/17 0401 07/04/17 0401 Imaging Last Impressions Chest X-Ray 06/22/17 0600 Signed Impressions: Service Date/Time: Thursday, June 22, 2017 03:49 - CONCLUSION: 1. Slight increase in basilar airspace disease since June 19. Endotracheal tube and nasogastric tube unchanged. Anderson Raymond MD Abdomen X-Ray 06/22/17 0000 Signed Impressions: Service Date/Time: Thursday, June 22, 2017 15:43 - CONCLUSION: Nonspecific abdomen. KMark Culp MD Head CT 06/18/17 0000 Signed Impressions: Service Date/Time: Sunday, June 18, 2017 00:48 - CONCLUSION: Negative exam. No evidence of intracranial hemorrhage. Ronni Capps MD Bone Biopsy CT 06/17/17 0000 Signed Impressions: Service Date/Time: Saturday, June 17, 2017 12:35 - CONCLUSION: Bone marrow aspiration and biopsy complicated by intubation and resuscitation. Pathology is pending. Rell Valentin MD FACR Abdomen Ultrasound 06/16/17 0000 Signed Impressions: Service Date/Time: Friday, June 16, 2017 18:13 - CONCLUSION: Limited sonographic windows due to patient body habitus and bowel gas. Right renal cyst. Visualized portions of the abdomen otherwise within normal limits. Jose Bruno MD Lower Extremity Ultrasound 06/14/17 0000 Signed Impressions: Service Date/Time: Wednesday, June 14, 2017 08:15 - CONCLUSION: Normal examination. Kushal Camacho MD Objective Remarks GENERAL: 57-year-old male, critically ill s/p trach SKIN: Warm and dry. HEAD: Noted front 2 teeth missing status post intubation, poor dentition overall. Normocephalic. EYES: Pupils equal and round about 2 mm bilaterally and slightly reactive. ENT: No nasal bleeding or discharge. Mucous membranes pink and moist. NECK: Trachea midline. No JVD. Trach site clean, dry. CARDIOVASCULAR: Irreg irreg. intermittently tachycardic RESPIRATORY: equal chest rise. unlabored. GASTROINTESTINAL: Abdomen soft, non-tender, obese. Edematous. MUSCULOSKELETAL: Extremities with 2+ bilateral lower extremity edema. NEUROLOGICAL: Awake, eyes are open spontaneously, tracks. Nods and shakes heads to questions, smiles. He is following commands by wiggling toes and squeezing hands bilaterally . Unable to assess speech. Procedures None A/P Assessment and Plan Neuro/Psych: Seizure disorder NOS Cardiac arrest x2 without evidence of anoxic injury Following commands 4 but very weak. EEG 06/23 Normal study. Goal of RA SS -0. Head CT 06/18 revealed no acute intracranial findings Currently on Topamax 100 mg by mouth daily for underlying seizure disorder CV: Cardiac arrest x2 (PEA) Cardiogenic shock-resolved Nonischemic cardiomyopathy Ejection fraction 15-20% Atrial fibrillation with RVR Chronic systolic heart failure Pulmonary hypertension History of chronic atrial fibrillation Hypertension Hospitalization with symptomatic bradycardia Brief PEA for 2 min in OR post trach 06/24, prev PA arrest due to hypoxia in CT room 06/17/17 Cardiogenic shock is now resolved and off Levophed 2-D echocardiogram revealed EF 20%. Dilated LV/RV. Moderate MR/TR. Pulmonary arterial pressures 50-60 mmHg. Cardiac catheterization 2015 revealed 50% LAD stenosis otherwise unremarkable On amiodarone drip 06/24-06/29. Now on amiodarone 200 mg per NG daily. On anticoagulation for a fib...see discussion below. Increase metoprolol 75 bid. Metoprolol 2.5 IV q6 hours prn. . Hypertensive. Continue enalapril 10mg daily, monitor renal function and continue to optimize. Getting labetalol 10 mg when necessary systolic blood pressure greater than 160 Troponin peaked at 0.49. Downward trending. Followed by Dr. Mccormack/cardiology Try digoxin for rate control; attempt to reduce beta obdulio. Renal function will present problems. Resp: Acute hypoxic respiratory failure Anterior airway Likely CHINO not on CPAP Now tolerating CPAP and will transition to t-piece 2 hours as tolerated. Vent overnight tonight and resume tpiece in am as tolerated. Performed bedside u/s and has small/moderate L pleural effusion but risk/ benefit not in favor of thoracentesis at this point with body habitus. Received Lasix 06/29. Cr up slightly. will hold diuresis today. Ventilator bundle Albuterol/ipratropium aerosols every 6 hours with albuterol every 2 hours. Chest x-ray right middle lobe infiltrates likely aspiration Repeat CXR 06/27 - cardiomegaly, bibasilar opacity s/p Tracheostomy in OR 06/24 s/p Decadron for airway edema Difficult intubation in CT 06/17/17 Tolerating T-piece for 48 hours 07/04 GI: Morbid obesity Acute mild protein energy malnutrition Glucerna 1.5 goal 50 cc an hour at goal per nutrition recommendations via. Beneprotein 2 pack 3 times a day HAve been trying to avoid PEG due to body habitus. Now seems to be making some progress toward vent weaning and may be able to advance swallow as transition to tpiece. Metoclopramide 5 mg IV every 8 hours Pantoprazole 40 mg IV daily for GI prophylaxis Relistor 1 bowel regimen on 06/21. having BMs. FEN/RENAL: Right renal cyst DENNYS overlying Chronic kidney disease stage III Anderson catheter for accurate I's and O's in a critically ill patient with renal failure Creatinine 2.5ATN on 06/24/17. hold further diuresis today given slight uptrend in Cr. likely intravascularly euvolemic, although still total body volume overload. Endo: Diabetes mellitus Medium dose Sliding-scale insulin with Accu-Cheks every 6 hours to maintain euglycemia. Blood glucose at target. Heme: Leukocytosis Chronic thrombocytopenia ?ITP, dating back to 2003 Chronic Apixaban use Status post bone marrow biopsy in IR 06/17. Path - hypercellular BM. Dr. Aguilera/hematology following Resumed 5 mg twice a day apixaban on 06/22, held for trach, resumed again 06/25, then was held due to worsening renal function. Now renal function improved but still on heparin drip for ease if he requires PEG. Appears he is starting to improve and necessity of PEG is less likely so may transition to eliquis soon. ID: HCAP/aspiration pneumonia sputum culture 06/20 Enterobacter Was on cefepime Flagyl 06/18-06/29. Stopped abx 06/29. Now watching off abx and reculture as indicated. MSK: 2 frontal teeth during intubation removed 2 frontal teeth where dislodged during intubation attempts by ED providers on prior to CCM attempt, and intubation Access - Right IJ CVL 06/18 - 06/30 - piv's - Anderson, keeping for ongoing diuresis and close monitoring of uop in the setting of resolving acute kidney injury. Prophylaxis - GI - pantoprazole- - DVT - SCD/IV Heparin PT/OT Case management records reviewed. [facility] following and he remains appropriate for disposition there from my standpoint. Sohail Ma MD Jul 04, 2017 07:09
[2017-07-04] MEDS: CHLORHEXIDINE 0.12% (ORAL KIT) 15 ML CUP MT SCH ×2 (07:46→20:00)
[2017-07-04] MEDS: BUMETANIDE INJ 1 MG/4 ML VIAL IV PUSH SCH ×2 (08:36→17:41)
[2017-07-04] MEDS: PANTOPRAZOLE SODIUM 40 MG VIAL IV SCH (08:36)
[2017-07-04] MEDS: SODIUM CHLORIDE 0.9% FLUSH 10 ML FLUSH IV FLUSH SCH ×2 (08:36→20:28)
[2017-07-04] MEDS: ARTIFICIAL TEARS OPTH SOLN 15 ML BTL EACH EYE SCH ×3 (08:36→17:41)
[2017-07-04] MEDS: ENALAPRIL MALEATE 5 MG TAB NG SCH (08:37)
[2017-07-04] MEDS: POTASSIUM CHLORIDE 25 MEQ EFFERVESCENT TAB NG SCH ×2 (08:37→20:30)
[2017-07-04] MEDS: DOCUSATE SODIUM 50 MG/SENNA 8.6 MG TAB PO SCH ×2 (08:37→20:30)
[2017-07-04] MEDS: AMIODARONE 200 MG TAB NG SCH (08:37)
[2017-07-04] MEDS: TOPIRAMATE 100 MG TAB PO SCH (08:37)
[2017-07-04] MEDS: METOPROLOL TARTRATE 25 MG TAB PO SCH ×2 (08:37→20:28)
[2017-07-04] MEDS: HEPARIN-D5W 25,000 U/250 ML 250 ML IV PRN (14:37)
[2017-07-04] MEDS ORDERED: HEPARIN 25,000 UNITS/D5W 250ML IV PRN (17:30)
[2017-07-05] VITALS (14 sets, daily range): BP systolic 115–157; BP diastolic 73–93; PULSE 92–120; RESP 11–27; TEMP 98.4–99; O2SAT 94–99
[2017-07-05] MEDS: SODIUM CHLOR 0.9% 1000 ML INJ 1,000 ML IV SCH (01:25)
[2017-07-05] MEDS: LABETALOL HCL 100 MG/20 ML VIAL IV PUSH PRN ×2 (02:12→04:03)
[2017-07-05] MEDS: CHLORHEXIDINE GLUCONATE 2 % 1 PACK (2 CLOTHS) TOP SCH (04:00)
[2017-07-05] MEDS: ACETAMINOPHEN/HYDROcodone 325 MG/5 MG TAB PO PRN (05:14)
[2017-07-05] MEDS: METOCLOPRAMIDE HCL 10 MG/2 ML VIAL IV PUSH SCH ×3 (05:15→21:06)
[2017-07-05 05:25] LABS: HEMATOCRIT 41.6 % (39.0-51.0); MEAN CELL VOLUME 91.3 FL (80.0-100.0); MEAN CORPUSCULAR HEMOGLOBIN 28.8 PG (27.0-34.0); MEAN CORPUSCULAR HGB CONC 31.5 % (32.0-36.0); PLATELET COUNT 117 TH/MM3 (150-450); RED BLOOD COUNT 4.56 MIL/MM3 (4.50-5.90); RED CELL DISTRIBUTION WIDTH 14.8 % (11.6-17.2); REVIEW FLAG FINAL; WHITE BLOOD COUNT 8.5 TH/MM3 (4.0-11.0)
[2017-07-05] MEDS: METOPROLOL TARTRATE 5 MG/5 ML VIAL IV PUSH PRN (05:43)
[2017-07-05 05:46] LABS: POTASSIUM 4.7 MEQ/L (3.5-5.1)
[2017-07-05] MEDS: INSULIN NovoLIN REGULAR SUPPLEMENTAL SCALE SQ SCH ×4 (06:00→18:00)
[2017-07-05] MEDS: HEPARIN 25,000 UNITS-D5W 250 ML - PREMIX IV PRN ×2 (07:17→23:54)
[2017-07-05] MEDS: BUMETANIDE INJ 1 MG/4 ML VIAL IV PUSH SCH ×2 (08:48→17:55)
[2017-07-05] MEDS: PANTOPRAZOLE SODIUM 40 MG VIAL IV SCH (08:49)
[2017-07-05] MEDS: DIGOXIN 0.5 MG/2 ML VIAL IV PUSH SCH (08:49)
[2017-07-05] MEDS: SODIUM CHLORIDE 0.9% FLUSH 10 ML FLUSH IV FLUSH SCH ×2 (08:49→20:34)
[2017-07-05] MEDS: AMIODARONE 200 MG TAB NG SCH (08:50)
[2017-07-05] MEDS: POTASSIUM CHLORIDE 25 MEQ EFFERVESCENT TAB NG SCH ×2 (08:50→20:34)
[2017-07-05] MEDS: TOPIRAMATE 100 MG TAB PO SCH (08:50)
[2017-07-05] MEDS: ENALAPRIL MALEATE 5 MG TAB NG SCH (08:50)
[2017-07-05] MEDS: METOPROLOL TARTRATE 25 MG TAB PO SCH ×2 (08:50→20:34)
[2017-07-05] MEDS: DOCUSATE SODIUM 50 MG/SENNA 8.6 MG TAB PO SCH ×2 (08:50→20:34)
[2017-07-05] MEDS: CHLORHEXIDINE 0.12% (ORAL KIT) 15 ML CUP MT SCH ×2 (08:50→20:00)
[2017-07-05] MEDS: ARTIFICIAL TEARS OPTH SOLN 15 ML BTL EACH EYE SCH ×3 (08:51→17:55)
[2017-07-05 10:12] LABS: APTT (PATIENT) 42.5 SEC (24.3-30.1)
--- NOTE | 2017-07-05 16:56 | HHI.CCPN ---
Subjective Remarks/Hospital Course This is a 57-year-old -[place] male. Date of admission 06/14/2017. Date of consultation 06/17/2017. Past medical history includes poor dentition, seizure disorder NOS, atrial fibrillation, nonischemic cardiomyopathy ejection fraction 15-20%, chronic kidney disease stage III, hypertension, diabetes, morbid obesity and chronic venous insufficiency. Patient also is known history of chronic thrombocytopenia. Patient was admitted really on 06/14 with shortness of breath. Dr. Mccormack/cardiology was consulted. Poor candidate for AICD secondary to noncompliance. Recommended removal of all teeth outpatient with possible placement after that. Resume home medications. Echocardiogram revealed EF 20%. Dilated RV/LV. Moderate MR/TR. Pulmonary arterial pressures measures 50-60 mmHg. During this hospitalization, he was also symptomatically bradycardia his medicines have been adjusted see orders. Dr. Aguilera from hematology was consulted due to chronic trauma cytopenia since 2003. Today, a bone marrow biopsy was performed. Patient was documented received fentanyl and Versed during procedure. Received 2.4 mg Narcan post procedures patient was somnolent. ED physicians came to intubate patient received 20 mg etomidate, 150 mg succinylcholine. Patient was hypoxic. Please see intubation note and code note by Dr. Niesha Fatima. Patient is currently on Yosvany-Synephrine drip. Central line placed emergently due to hemodynamic instability. Arterial line placed by my colleague. 06/18: Arousable to voice and moving all [address] head no acute findings. Troponin peaked at 0.49. Creatinine actually improved. We'll attempt spontaneous breathing trials today. Added when necessary's for blood pressure. 06/19: Peripheral perfusion acceptable. Heart rate better controlled. Start spontaneous breathing trials. 06/20: Improved respiratory effort. Push for extubation. 06/21: Awake and arousable on the ventilator. Tolerating tube feeding. No BM. Afebrile. 06/22: Afebrile. On sedation vacation yesterday was following commands by wiggling toes and squeeze bilateral upper extremities. However, brief one dose patient becomes agitated and gags on ET tube. 06/23: Yesterday, patient coughed up tube into vocal cord region. Unable to deflate balloon. Patient's airway was exchanged by anesthesiology. Saturations remained above 90% at all times. After a tube change, mucous plugging to mainstream. Plan emergent bronchus with clearance of secretions. Sample sent. Currently sedating appears comfortable ventilator. Will need tracheostomy. Mother notified and in agreement. 06/24: Remains intubated sedated, off sedation patient follows commands 4. But failed CPAP trial today due to severe tachycardia and agitation. Plan for OP tracheostomy today 06/25: Brief PA arrest after tracheostomy yesterday in the OR-total duration 2 minutes. No evidence of anoxic injury. BUN/creatinine is 55/2.3 increased from 43/1.4 most likely from ATN secondary to shock. Transaminase elevation also secondary to shock. 06/26: Patient not tolerating CPAP with low PS. Remains on amiodarone for atrial fibrillation. Apixaban on hold due to worsening renal function today 2.5-most likely from ATN-start IV Heparin. Urine output remains excellent. 06/27: Unable to wean ventilator, not tolerating SBTs. Hampered by biventricular failure. 06/28: Failed CPAP trials quickly again today despite increased pressure support. We are balancing heart failure and kidney failure, and losing both battles. 06/29 Follows commands weakly. Placed on 15 over 5 this morning. No significant respiratory secretions. Temp max 99.7 06/30 Tolerating CPAP 15/5 for 6 hours today. Now progressively weaned and tolerating 5/5 with RSBI in 20s. Will place on Tpiece up to 2 hours as tolerated. Tmax 100.4. WBC downtrended to 10. Had visitors today and was in good spirits, laughing. 07/01: no changes. still tolerating intermittent CPAP. again try t-piece today. good LTAC candidate. 07/02: Tolerating T-piece for 12 hours now. 07/03: Continued good response to diuretics. Tolerating T-piece well. 07/04: Will try low dose digoxin and see if we can get better rate control. Follow response and level. 07/05: rate still in 120s. remains on t-piece. Objective Vital Signs Date Time Temp Pulse Resp B/P (MAP) Pulse Ox O2 Delivery O2 Flow Rate FiO2 07/05/17 14:00 105 07/05/17 12:00 98.7 11 154/91 (112) 98 07/05/17 08:08 T-piece 6.00 28 Intake and Output 07/05/17 07/05/17 07/06/17 08:00 16:00 00:00 Intake Total 1106 ml Output Total 1075 ml Balance 31 ml Result Diagram: 07/05/17 0425 07/05/17 0425 Imaging Last Impressions Chest X-Ray 06/22/17 0600 Signed Impressions: Service Date/Time: Thursday, June 22, 2017 03:49 - CONCLUSION: 1. Slight increase in basilar airspace disease since June 19. Endotracheal tube and nasogastric tube unchanged. Anderson Raymond MD Abdomen X-Ray 06/22/17 0000 Signed Impressions: Service Date/Time: Thursday, June 22, 2017 15:43 - CONCLUSION: Nonspecific abdomen. KMark Culp MD Head CT 06/18/17 0000 Signed Impressions: Service Date/Time: Sunday, June 18, 2017 00:48 - CONCLUSION: Negative exam. No evidence of intracranial hemorrhage. Ronni Capps MD Bone Biopsy CT 06/17/17 0000 Signed Impressions: Service Date/Time: Saturday, June 17, 2017 12:35 - CONCLUSION: Bone marrow aspiration and biopsy complicated by intubation and resuscitation. Pathology is pending. Rell Valentin MD FACR Abdomen Ultrasound 06/16/17 0000 Signed Impressions: Service Date/Time: Friday, June 16, 2017 18:13 - CONCLUSION: Limited sonographic windows due to patient body habitus and bowel gas. Right renal cyst. Visualized portions of the abdomen otherwise within normal limits. Jose Bruno MD Lower Extremity Ultrasound 06/14/17 0000 Signed Impressions: Service Date/Time: Wednesday, June 14, 2017 08:15 - CONCLUSION: Normal examination. Kushal Camacho MD Objective Remarks GENERAL: 57-year-old male, critically ill s/p trach SKIN: Warm and dry. HEAD: Noted front 2 teeth missing status post intubation, poor dentition overall. Normocephalic. EYES: Pupils equal and round about 2 mm bilaterally and slightly reactive. ENT: No nasal bleeding or discharge. Mucous membranes pink and moist. NECK: Trachea midline. No JVD. Trach site clean, dry. CARDIOVASCULAR: Irreg irreg. intermittently tachycardic RESPIRATORY: equal chest rise. unlabored. GASTROINTESTINAL: Abdomen soft, non-tender, obese. Edematous. MUSCULOSKELETAL: Extremities with 2+ bilateral lower extremity edema. NEUROLOGICAL: Awake, eyes are open spontaneously, tracks. Nods and shakes heads to questions, smiles. He is following commands by wiggling toes and squeezing hands bilaterally . Unable to assess speech. Procedures None A/P Assessment and Plan Neuro/Psych: Seizure disorder NOS Cardiac arrest x2 without evidence of anoxic injury Following commands 4 but very weak. EEG 06/23 Normal study. Goal of RA SS -0. Head CT 06/18 revealed no acute intracranial findings Currently on Topamax 100 mg by mouth daily for underlying seizure disorder CV: Cardiac arrest x2 (PEA) Cardiogenic shock-resolved Nonischemic cardiomyopathy Ejection fraction 15-20% Atrial fibrillation with RVR Chronic systolic heart failure Pulmonary hypertension History of chronic atrial fibrillation Hypertension Hospitalization with symptomatic bradycardia Brief PEA for 2 min in OR post trach 06/24, prev PA arrest due to hypoxia in CT room 06/17/17 Cardiogenic shock is now resolved and off Levophed 2-D echocardiogram revealed EF 20%. Dilated LV/RV. Moderate MR/TR. Pulmonary arterial pressures 50-60 mmHg. Cardiac catheterization 2015 revealed 50% LAD stenosis otherwise unremarkable On amiodarone drip 06/24-06/29. Now on amiodarone 200 mg per NG daily. On anticoagulation for a fib...see discussion below. Increase metoprolol 75 bid. Metoprolol 2.5 IV q6 hours prn. . Hypertensive. Continue enalapril 10mg daily, monitor renal function and continue to optimize. Getting labetalol 10 mg when necessary systolic blood pressure greater than 160 Troponin peaked at 0.49. Downward trending. Followed by Dr. Mccormack/cardiology Try digoxin for rate control; attempt to reduce beta obdulio. Renal function will present problems. check dig level in the AM. Resp: Acute hypoxic respiratory failure Anterior airway Likely CHINO not on CPAP Now tolerating CPAP and will transition to t-piece 2 hours as tolerated. Vent overnight tonight and resume tpiece in am as tolerated. Performed bedside u/s and has small/moderate L pleural effusion but risk/ benefit not in favor of thoracentesis at this point with body habitus. Received Lasix 06/29. Cr up slightly. will hold diuresis today. Ventilator bundle Albuterol/ipratropium aerosols every 6 hours with albuterol every 2 hours. Chest x-ray right middle lobe infiltrates likely aspiration Repeat CXR 06/27 - cardiomegaly, bibasilar opacity s/p Tracheostomy in OR 06/24 s/p Decadron for airway edema Difficult intubation in CT 06/17/17 Tolerating T-piece for 48 hours 07/04 GI: Morbid obesity Acute mild protein energy malnutrition Glucerna 1.5 goal 50 cc an hour at goal per nutrition recommendations via. Beneprotein 2 pack 3 times a day HAve been trying to avoid PEG due to body habitus. Now seems to be making some progress toward vent weaning and may be able to advance swallow as transition to tpiece. Metoclopramide 5 mg IV every 8 hours Pantoprazole 40 mg IV daily for GI prophylaxis Relistor 1 bowel regimen on 06/21. having BMs. FEN/RENAL: Right renal cyst DENNYS overlying Chronic kidney disease stage III Anderson catheter for accurate I's and O's in a critically ill patient with renal failure Creatinine 2.5ATN on 06/24/17. Endo: Diabetes mellitus Medium dose Sliding-scale insulin with Accu-Cheks every 6 hours to maintain euglycemia. Blood glucose at target. Heme: Leukocytosis Chronic thrombocytopenia ?ITP, dating back to 2003 Chronic Apixaban use Status post bone marrow biopsy in IR 06/17. Path - hypercellular BM. Dr. Aguilera/hematology following Resumed 5 mg twice a day apixaban on 06/22, held for trach, resumed again 06/25, then was held due to worsening renal function. Now renal function improved but still on heparin drip for ease if he requires PEG. Appears he is starting to improve and necessity of PEG is less likely so may transition to eliquis soon. ID: HCAP/aspiration pneumonia sputum culture 06/20 Enterobacter Was on cefepime Flagyl 06/18-06/29. Stopped abx 06/29. Now watching off abx and reculture as indicated. MSK: 2 frontal teeth during intubation removed 2 frontal teeth where dislodged during intubation attempts by ED providers on prior to CCM attempt, and intubation Access - Right IJ CVL 06/18 - 06/30 - piv's - Anderson, keeping for ongoing diuresis and close monitoring of uop in the setting of resolving acute kidney injury. Prophylaxis - GI - pantoprazole- - DVT - SCD/IV Heparin PT/OT Case management records reviewed. Denied by insurance due to no PEG tube in place, however, patient is alert and oriented and getting stronger. has NGT in place which is adequate enteral access for adequate nutrition. does not require permanent PEG tube. likely will become strong enough to pass swallow eval soon, and risk/benefit given his obesity: PEG tube operation would place him at undue high risk. No contraindication to replacing NGT if it were to come out. This is a long-term viable feeding option until patient passes swallow eval. Mamadou Mcgowan MD Jul 05, 2017 16:56
[2017-07-06] VITALS (13 sets, daily range): BP systolic 130–169; BP diastolic 77–112; PULSE 94–120; RESP 24–28; TEMP 98.9–100.2; O2SAT 94–97
[2017-07-06] MEDS: SODIUM CHLOR 0.9% 1000 ML INJ 1,000 ML IV SCH ×2 (01:25→08:39)
[2017-07-06] MEDS: METOPROLOL TARTRATE 5 MG/5 ML VIAL IV PUSH PRN ×3 (03:11→12:19)
[2017-07-06] MEDS: CHLORHEXIDINE GLUCONATE 2 % 1 PACK (2 CLOTHS) TOP SCH (03:12)
[2017-07-06] MEDS: INSULIN NovoLIN REGULAR SUPPLEMENTAL SCALE SQ SCH ×4 (06:00→18:00)
[2017-07-06] MEDS: METOCLOPRAMIDE HCL 10 MG/2 ML VIAL IV PUSH SCH ×3 (06:21→22:27)
[2017-07-06 06:27] LABS: APTT (PATIENT) 44.1 SEC (24.3-30.1)
[2017-07-06 06:39] LABS: POTASSIUM 5.2 MEQ/L (3.5-5.1)
[2017-07-06 06:50] LABS: MEAN CELL VOLUME 90.4 FL (80.0-100.0); MEAN CORPUSCULAR HEMOGLOBIN 28.7 PG (27.0-34.0); MEAN CORPUSCULAR HGB CONC 31.7 % (32.0-36.0); PLATELET COUNT 132 TH/MM3 (150-450); RED BLOOD COUNT 4.76 MIL/MM3 (4.50-5.90); RED CELL DISTRIBUTION WIDTH 14.6 % (11.6-17.2); REVIEW FLAG FINAL; WHITE BLOOD COUNT 10.5 TH/MM3 (4.0-11.0)
[2017-07-06 06:54] LABS: DIGOXIN 1.1 NG/ML (0.8-2.0)
[2017-07-06] MEDS: CHLORHEXIDINE 0.12% (ORAL KIT) 15 ML CUP MT SCH ×2 (07:36→20:12)
[2017-07-06] MEDS: PANTOPRAZOLE SODIUM 40 MG VIAL IV SCH (07:36)
[2017-07-06] MEDS: ARTIFICIAL TEARS OPTH SOLN 15 ML BTL EACH EYE SCH ×3 (07:36→18:00)
[2017-07-06] MEDS: SODIUM CHLORIDE 0.9% FLUSH 10 ML FLUSH IV FLUSH SCH ×2 (07:41→20:12)
[2017-07-06] MEDS: AMIODARONE 200 MG TAB NG SCH (07:42)
[2017-07-06] MEDS: DIGOXIN 0.5 MG/2 ML VIAL IV PUSH SCH (07:42)
[2017-07-06] MEDS: BUMETANIDE INJ 1 MG/4 ML VIAL IV PUSH SCH ×2 (07:42→18:00)
[2017-07-06] MEDS: METOPROLOL TARTRATE 25 MG TAB PO SCH ×2 (07:43→20:13)
[2017-07-06] MEDS: POTASSIUM CHLORIDE 25 MEQ EFFERVESCENT TAB NG SCH ×2 (07:43→20:12)
[2017-07-06] MEDS: DOCUSATE SODIUM 50 MG/SENNA 8.6 MG TAB PO SCH ×2 (07:43→20:13)
[2017-07-06] MEDS: ENALAPRIL MALEATE 5 MG TAB NG SCH (07:43)
[2017-07-06] MEDS: TOPIRAMATE 100 MG TAB PO SCH (07:44)
[2017-07-06] MEDS: ACETAMINOPHEN/HYDROcodone 325 MG/5 MG TAB PO PRN ×2 (07:44→20:51)
[2017-07-06] MEDS ORDERED: LIDOCAINE HCL 1% 50 ML VIAL ONE ×2 (08:49→10:00)
--- NOTE | 2017-07-06 11:12 | HHI.CCPN ---
Subjective Remarks/Hospital Course This is a 57-year-old -[place] male. Date of admission 06/14/2017. Date of consultation 06/17/2017. Past medical history includes poor dentition, seizure disorder NOS, atrial fibrillation, nonischemic cardiomyopathy ejection fraction 15-20%, chronic kidney disease stage III, hypertension, diabetes, morbid obesity and chronic venous insufficiency. Patient also is known history of chronic thrombocytopenia. Patient was admitted really on 06/14 with shortness of breath[address] Dr. Mccormack/cardiology was consulted. Poor candidate for AICD secondary to noncompliance. Recommended removal of all teeth outpatient with possible placement after that. Resume home medications. Echocardiogram revealed EF 20%. Dilated RV/LV. Moderate MR/TR. Pulmonary arterial pressures measures 50-60 mmHg. During this hospitalization, he was also symptomatically bradycardia his medicines have been adjusted see orders. Dr. Aguilera from hematology was consulted due to chronic trauma cytopenia since 2003. Today, a bone marrow biopsy was performed. Patient was documented received fentanyl and Versed during procedure. Received 2.4 mg Narcan post procedures patient was somnolent. ED physicians came to intubate patient received 20 mg etomidate, 150 mg succinylcholine. Patient was hypoxic. Please see intubation note and code note by Dr. Niesha Fatima. Patient is currently on Yosvany-Synephrine drip. Central line placed emergently due to hemodynamic instability. Arterial line placed by my colleague. 06/18: Arousable to voice and moving all [address] head no acute findings. Troponin peaked at 0.49. Creatinine actually improved. We'll attempt spontaneous breathing trials today. Added when necessary's for blood pressure. 06/19: Peripheral perfusion acceptable. Heart rate better controlled. Start spontaneous breathing trials. 06/20: Improved respiratory effort. Push for extubation. 06/21: Awake and arousable on the ventilator. Tolerating tube feeding. No BM. Afebrile. 06/22: Afebrile. On sedation vacation yesterday was following commands by wiggling toes and squeeze bilateral upper extremities. However, brief one dose patient becomes agitated and gags on ET tube. 06/23: Yesterday, patient coughed up tube into vocal cord region. Unable to deflate balloon. Patient's airway was exchanged by anesthesiology. Saturations remained above 90% at all times. After a tube change, mucous plugging to mainstream. Plan emergent bronchus with clearance of secretions. Sample sent. Currently sedating appears comfortable ventilator. Will need tracheostomy. Mother notified and in agreement. 06/24: Remains intubated sedated, off sedation patient follows commands 4. But failed CPAP trial today due to severe tachycardia and agitation. Plan for OP tracheostomy today 06/25: Brief PA arrest after tracheostomy yesterday in the OR-total duration 2 minutes. No evidence of anoxic injury. BUN/creatinine is 55/2.3 increased from 43/1.4 most likely from ATN secondary to shock. Transaminase elevation also secondary to shock. 06/26: Patient not tolerating CPAP with low PS. Remains on amiodarone for atrial fibrillation. Apixaban on hold due to worsening renal function today 2.5-most likely from ATN-start IV Heparin. Urine output remains excellent. 06/27: Unable to wean ventilator, not tolerating SBTs. Hampered by biventricular failure. 06/28: Failed CPAP trials quickly again today despite increased pressure support. We are balancing heart failure and kidney failure, and losing both battles. 06/29 Follows commands weakly. Placed on 15 over 5 this morning. No significant respiratory secretions. Temp max 99.7 06/30 Tolerating CPAP 15/5 for 6 hours today. Now progressively weaned and tolerating 5/5 with RSBI in 20s. Will place on Tpiece up to 2 hours as tolerated. Tmax 100.4. WBC downtrended to 10. Had visitors today and was in good spirits, laughing. 07/01: no changes. still tolerating intermittent CPAP. again try t-piece today. good LTAC candidate. 07/02: Tolerating T-piece for 12 hours now. 07/03: Continued good response to diuretics. Tolerating T-piece well. 07/04: Will try low dose digoxin and see if we can get better rate control. Follow response and level. 07/05: rate still in 120s. remains on t-piece. 07/06: HR under better control. dig level therapeutic. Objective Vital Signs Date Time Temp Pulse Resp B/P (MAP) Pulse Ox O2 Delivery O2 Flow Rate FiO2 07/06/17 10:00 98 07/06/17 08:44 18 07/06/17 08:14 97 T-piece 5.00 28 07/06/17 08:00 99.7 153/98 (116) Intake and Output 07/06/17 07/06/17 07/07/17 08:00 16:00 00:00 Intake Total 1104 ml 0 ml Output Total 1475 ml Balance -371 ml 0 ml Result Diagram: 07/06/17 0529 07/06/17 0529 Imaging Last Impressions Chest X-Ray 06/22/17 0600 Signed Impressions: Service Date/Time: Thursday, June 22, 2017 03:49 - CONCLUSION: 1. Slight increase in basilar airspace disease since June 19. Endotracheal tube and nasogastric tube unchanged. Anderson Raymond MD Abdomen X-Ray 06/22/17 0000 Signed Impressions: Service Date/Time: Thursday, June 22, 2017 15:43 - CONCLUSION: Nonspecific abdomen. K. Mauricio Culp MD Head CT 06/18/17 0000 Signed Impressions: Service Date/Time: Sunday, June 18, 2017 00:48 - CONCLUSION: Negative exam. No evidence of intracranial hemorrhage. Ronni Capps MD Bone Biopsy CT 06/17/17 0000 Signed Impressions: Service Date/Time: Saturday, June 17, 2017 12:35 - CONCLUSION: Bone marrow aspiration and biopsy complicated by intubation and resuscitation. Pathology is pending. Rell Valentin MD FACR Abdomen Ultrasound 06/16/17 0000 Signed Impressions: Service Date/Time: Friday, June 16, 2017 18:13 - CONCLUSION: Limited sonographic windows due to patient body habitus and bowel gas. Right renal cyst. Visualized portions of the abdomen otherwise within normal limits. Jose Bruno MD Lower Extremity Ultrasound 06/14/17 0000 Signed Impressions: Service Date/Time: Wednesday, June 14, 2017 08:15 - CONCLUSION: Normal examination. Kushal Camacho MD Objective Remarks GENERAL: 57-year-old male, critically ill s/p trach SKIN: Warm and dry. HEAD: Noted front 2 teeth missing status post intubation, poor dentition overall. Normocephalic. EYES: Pupils equal and round about 2 mm bilaterally and slightly reactive. ENT: No nasal bleeding or discharge. Mucous membranes pink and moist. NECK: Trachea midline. No JVD. Trach site clean, dry. CARDIOVASCULAR: Irreg irreg. intermittently tachycardic RESPIRATORY: equal chest rise. unlabored. GASTROINTESTINAL: Abdomen soft, non-tender, obese. Edematous. MUSCULOSKELETAL: Extremities with 2+ bilateral lower extremity edema. NEUROLOGICAL: Awake, eyes are open spontaneously, tracks. Nods and shakes heads to questions, smiles. He is following commands by wiggling toes and squeezing hands bilaterally . Unable to assess speech. Procedures None A/P Assessment and Plan Neuro/Psych: Seizure disorder NOS Cardiac arrest x2 without evidence of anoxic injury Following commands 4 but very weak. EEG 06/23 Normal study. Goal of RA SS -0. Head CT 06/18 revealed no acute intracranial findings Currently on Topamax 100 mg by mouth daily for underlying seizure disorder CV: Cardiac arrest x2 (PEA) Cardiogenic shock-resolved Nonischemic cardiomyopathy Ejection fraction 15-20% Atrial fibrillation with RVR Chronic systolic heart failure Pulmonary hypertension History of chronic atrial fibrillation Hypertension Hospitalization with symptomatic bradycardia Brief PEA for 2 min in OR post trach 06/24, prev PA arrest due to hypoxia in CT room 06/17/17 Cardiogenic shock is now resolved and off Levophed 2-D echocardiogram revealed EF 20%. Dilated LV/RV. Moderate MR/TR. Pulmonary arterial pressures 50-60 mmHg. Cardiac catheterization 2015 revealed 50% LAD stenosis otherwise unremarkable On amiodarone drip 06/24-06/29. Now on amiodarone 200 mg per NG daily. On anticoagulation for a fib...see discussion below. Increase metoprolol 75 bid. Metoprolol 2.5 IV q6 hours prn. . Hypertensive. Continue enalapril 10mg daily, monitor renal function and continue to optimize. Getting labetalol 10 mg when necessary systolic blood pressure greater than 160 Troponin peaked at 0.49. Downward trending. Followed by Dr. Mccormack/cardiology Try digoxin for rate control; attempt to reduce beta obdulio. Renal function will present problems. dig level therapeutic. 1.1 07/05 Resp: Acute hypoxic respiratory failure Anterior airway Likely CHINO not on CPAP Now tolerating CPAP and will transition to t-piece 2 hours as tolerated. Vent overnight tonight and resume tpiece in am as tolerated. Performed bedside u/s and has small/moderate L pleural effusion but risk/ benefit not in favor of thoracentesis at this point with body habitus. Received Lasix 06/29. Cr up slightly. will hold diuresis today. Ventilator bundle Albuterol/ipratropium aerosols every 6 hours with albuterol every 2 hours. Chest x-ray right middle lobe infiltrates likely aspiration Repeat CXR 06/27 - cardiomegaly, bibasilar opacity s/p Tracheostomy in OR 06/24 s/p Decadron for airway edema Difficult intubation in CT 06/17/17 Tolerating T-piece since 07/04 GI: Morbid obesity Acute mild protein energy malnutrition Glucerna 1.5 goal 50 cc an hour at goal per nutrition recommendations via. Beneprotein 2 pack 3 times a day HAve been trying to avoid PEG due to body habitus. Now seems to be making some progress toward vent weaning and may be able to advance swallow as transition to tpiece. Metoclopramide 5 mg IV every 8 hours Pantoprazole 40 mg IV daily for GI prophylaxis Relistor 1 bowel regimen on 06/21. having BMs. FEN/RENAL: Right renal cyst DENNYS overlying Chronic kidney disease stage III Anderson catheter for accurate I's and O's in a critically ill patient with renal failure Creatinine 2.5ATN on 06/24/17. Endo: Diabetes mellitus Medium dose Sliding-scale insulin with Accu-Cheks every 6 hours to maintain euglycemia. Blood glucose at target. Heme: Leukocytosis Chronic thrombocytopenia ?ITP, dating back to 2003 Chronic Apixaban use Status post bone marrow biopsy in IR 06/17. Path - hypercellular BM. Dr. Aguilera/hematology following Resumed 5 mg twice a day apixaban on 06/22, held for trach, resumed again 06/25, then was held due to worsening renal function. Now renal function improved. restart apixaban 07/06. ID: HCAP/aspiration pneumonia sputum culture 06/20 Enterobacter Was on cefepime Flagyl 06/18-06/29. Stopped abx 06/29. Now watching off abx and reculture as indicated. MSK: 2 frontal teeth during intubation removed 2 frontal teeth where dislodged during intubation attempts by ED providers on prior to CCM attempt, and intubation Access - Right IJ CVL 06/18 - 06/30 - piv's - Anderson, keeping for ongoing diuresis and close monitoring of uop in the setting of resolving acute kidney injury. Prophylaxis - GI - pantoprazole- - DVT - SCD/IV Heparin, now apixaban. PT/OT Case management records reviewed. Denied by insurance due to no PEG tube in place, however, patient is alert and oriented and getting stronger. has NGT in place which is adequate enteral access for adequate nutrition. does not require permanent PEG tube. likely will become strong enough to pass swallow eval soon, and risk/benefit given his obesity: PEG tube operation would place him at undue high risk. No contraindication to replacing NGT if it were to come out. This is a long-term viable feeding option until patient passes swallow eval. Likely can transition to floor. will consult hospitalist and pulmonary for ongoing management. Mamadou Mcgowan MD Jul 06, 2017 11:12
[2017-07-06] MEDS: MORPHINE SULFATE 4 MG/ML INJ IV PUSH PRN ×2 (12:19→23:11)
[2017-07-06] MEDS: APIXABAN 5 MG TABLET NG SCH ×2 (12:20→20:13)
[2017-07-06] MEDS: LABETALOL HCL 100 MG/20 ML VIAL IV PUSH PRN (16:24)
[2017-07-06] MEDS: HYOSCYAMINE SOLN 0.125 MG/ML 15 ML BTL PO SCH (22:43)
[2017-07-07] VITALS (15 sets, daily range): BP systolic 102–139; BP diastolic 64–95; PULSE 90–120; RESP 21–30; TEMP 98.8–100.6; O2SAT 95–100
[2017-07-07] MEDS: SODIUM CHLOR 0.9% 1000 ML INJ 1,000 ML IV SCH (01:24)
[2017-07-07] MEDS: CHLORHEXIDINE GLUCONATE 2 % 1 PACK (2 CLOTHS) TOP SCH (03:44)
[2017-07-07] MEDS: HYOSCYAMINE SOLN 0.125 MG/ML 15 ML BTL PO SCH ×4 (03:44→23:30)
[2017-07-07] MEDS: METOPROLOL TARTRATE 5 MG/5 ML VIAL IV PUSH PRN ×2 (03:45→20:11)
[2017-07-07] MEDS: ACETAMINOPHEN/HYDROcodone 325 MG/5 MG TAB PO PRN ×2 (03:45→23:24)
[2017-07-07 04:42] LABS: HEMATOCRIT 40.9 % (39.0-51.0); MEAN CELL VOLUME 90.5 FL (80.0-100.0); MEAN CORPUSCULAR HEMOGLOBIN 28.8 PG (27.0-34.0); MEAN CORPUSCULAR HGB CONC 31.8 % (32.0-36.0); PLATELET COUNT 126 TH/MM3 (150-450); RED BLOOD COUNT 4.52 MIL/MM3 (4.50-5.90); RED CELL DISTRIBUTION WIDTH 14.2 % (11.6-17.2); REVIEW FLAG FINAL; WHITE BLOOD COUNT 11.2 TH/MM3 (4.0-11.0)
[2017-07-07 04:55] LABS: APTT (PATIENT) 34.3 SEC (24.3-30.1)
[2017-07-07 04:58] LABS: BICARBONATE 32.5 MEQ/L (21.0-32.0); POTASSIUM 5.7 MEQ/L (3.5-5.1)
--- NOTE | 2017-07-07 05:28 | MB ---
cc: DAGMAR ESCOBEDO JOHN DATE OF CONSULTATION: 07/06/2017 REASON FOR CONSULTATION: Tracheostomy management. HISTORY OF PRESENT ILLNESS: This is a 57-year-old -[place] male who was in the hospital for the past three weeks with a history of respiratory failure. The patient has had a seizure disorder, atrial fibrillation, history of cardiomyopathy and chronic kidney disease stage III with hypertension and diabetes. The patient was admitted on 06/14 for shortness of breath. He has been noted to have chronic thrombocytopenia. The patient apparently also was found to have dilated cardiomyopathy, moderate maxillary regurgitation, and pulmonary hypertension. He had a bone marrow biopsy performed and was noted to be hypoxic after the bone marrow procedure, needed intubation, placed on ventilator support and was placed on pressors due to low blood pressure. The patient subsequently remained on ventilatory support. His renal function did improve somewhat and the patient was gradually weaned off the ventilator over the next thee days. On 06/23/2017, the patient's ET-tube got dislodged and had to be reinserted and he was noted to have mucus plugging at that time, and at that time decisions were made to place a tracheostomy tube. Over the next two days the patient remained intubated and sedated, and was following commands. On 06/25, the patient apparently had a brief arrest, and was resuscitated, placed on ventilator support while on the trache. The patient was hypotensive but had to be placed on pressors. Over the next two days, he was weaned to C-PAP but had been on anti-arrhythmic agents for atrial fibrillation. On 06/27, the patient was tried on spontaneous breathing trials and the patient had been on C-PAP intermittently, and over the past three days the patient had remained on T-Piece at 35% and seems to be breathing comfortably. He has difficulty moving his lower extremities. He has remained on a T-Piece and seems to be comfortable over the past two days, on 35% FIO2. The other details are all taken from the chart. PAST MEDICAL HISTORY: 1. Atrial fibrillation. 2. Chronic history of seizures. 3. History of hypertension. 4. History of cardiomyopathy with low ejection fraction. 5. Extreme obesity. 6. Possible sleep apnea. 7. Chronic kidney disease, stage III. 8. History of chronic venous insufficiency. HABITS: The patient does not smoke. No alcohol use. MEDICATIONS: 1. Topiramate 200 milligrams daily. 2. Doxazosin 2 milligrams daily. 3. Metoprolol 100 milligrams b.i.d. 4. Cardizem 240 milligrams t.i.d. PHYSICAL EXAMINATION This is a moderately obese elderly man is laying flat on oxygen by T-Bar. VITAL SIGNS: Blood pressure 148/80, pulse is 75, respiratory rate 22, temperature 98.2. HEENT: Head normocephalic. Pupils reactive and enlarged. Throat is mildly injected. Nasal mucosa is clear. Neck: Supple with trache tube in place. No thyromegaly. Chest: Distant breath sounds with occasional crackles at the lung bases. Heart: The heart sounds were regular, S1-S2. No murmur or S3. Abdomen: Soft and benign. No masses. No organomegaly or tenderness. Bowel sounds active. Extremities: No lesions or edema. Reflexes 1+ with no gross motor deficits. Neurologic: Cranial nerves grossly intact. Skin: No lesions observed. IMPRESSION 1. Chronic respiratory failure. 2. Chronic kidney disease stage III. 3. Atrial fibrillation and ASHD. 4. History of diabetes mellitus. 5. Hypertension. PLAN The patient was started on T-Bar at 35% FIO2, nebulized DuoNeb solution q.i.d., placed on Levsin 0.125 mg q.i.d. Repeat chest x-ray will be done this week. The patient will be monitored carefully, antibiotic coverage for Infectious Disease service. He will be transferred to the medical floor, pulmonary function study will be done when he is clinically stable. I will follow the case with you Dr. Escobedo. Thank you for the consultation. MD GLORIA Thompson/BRAYDEN /11:52 PM /4:04 AM
[2017-07-07] MEDS: INSULIN NovoLIN REGULAR SUPPLEMENTAL SCALE SQ SCH ×5 (06:00→23:38)
[2017-07-07] MEDS: METOCLOPRAMIDE HCL 10 MG/2 ML VIAL IV PUSH SCH ×3 (06:01→21:34)
--- NOTE | 2017-07-07 06:17 | RADRPT ---
EXAM DATE/TIME: 07/07/2017 04:41 [facility] COMPARISON: CHEST SINGLE AP, July 01, 2017, 2:10. INDICATIONS : Shortness of breath. MEDICAL HISTORY : A-fib. Hypercholesterolemia. Hypertension. Congestive heart failure, Epilepsy SURGICAL HISTORY : None. ENCOUNTER: Subsequent ACUITY: 3 weeks PAIN SCORE: Non-responsive. LOCATION: Bilateral chest FINDINGS: Tracheostomy in satisfactory position. NG seen traversing the esophagus but tip not visualized. Hazy basilar airspace disease slightly increased from July 01. No pneumothorax or significant effusion. CONCLUSION: 1. Cardiomegaly with increase in hazy airspace disease in the lungs since August 01. Anderson Raymond MD on July 07, 2017 at 6:15 Board Certified Radiologist. This report was verified electronically.
[2017-07-07] MEDS: CHLORHEXIDINE 0.12% (ORAL KIT) 15 ML CUP MT SCH ×2 (07:46→21:34)
[2017-07-07] MEDS: TOPIRAMATE 100 MG TAB PO SCH (07:47)
[2017-07-07] MEDS: PANTOPRAZOLE SODIUM 40 MG VIAL IV SCH (07:47)
[2017-07-07] MEDS: DOCUSATE SODIUM 50 MG/SENNA 8.6 MG TAB PO SCH ×2 (07:47→21:33)
[2017-07-07] MEDS: AMIODARONE 200 MG TAB NG SCH (07:47)
[2017-07-07] MEDS: APIXABAN 5 MG TABLET NG SCH ×2 (07:47→21:33)
[2017-07-07] MEDS: METOPROLOL TARTRATE 25 MG TAB PO SCH ×3 (07:47→23:24)
[2017-07-07] MEDS: DIGOXIN 0.5 MG/2 ML VIAL IV PUSH SCH (07:49)
[2017-07-07] MEDS: SODIUM CHLORIDE 0.9% FLUSH 10 ML FLUSH IV FLUSH SCH ×2 (07:49→21:34)
[2017-07-07] MEDS: ARTIFICIAL TEARS OPTH SOLN 15 ML BTL EACH EYE SCH ×3 (07:49→17:25)
[2017-07-07] MEDS: RESP: ALBUTEROL 2.5 MG/IPRATROPIUM 0.5 MG NEB (SCH) NEB ×3 (08:22→21:08)
--- NOTE | 2017-07-07 13:24 | HHI.PR ---
Subjective Remarks Follow up respiratory failure, hx of cardiac arrest. Patient nonverbal, but communicates using hand gestures. Denies chest pain. Indicates that he is feeling better. Objective Vitals Vital Signs Date Time Temp Pulse Resp B/P (MAP) Pulse Ox O2 Delivery O2 Flow Rate FiO2 07/07/17 12:00 98.8 103 21 111/68 (82) 100 07/07/17 12:00 103 07/07/17 10:00 100 07/07/17 08:22 98 T-piece 5.00 28 07/07/17 08:00 100 07/07/17 08:00 99.8 100 21 126/94 (105) 100 07/07/17 07:00 99 T-Piece 28 07/07/17 06:00 112 07/07/17 04:00 106 07/07/17 04:00 99.2 106 25 102/64 (77) 99 07/07/17 02:00 108 07/07/17 01:27 98 T-piece 6.00 28 07/07/17 00:00 99.0 100 27 139/95 (110) 95 07/07/17 00:00 100 07/06/17 22:00 100 07/06/17 20:00 99.4 114 25 155/84 (107) 94 07/06/17 20:00 114 07/06/17 19:00 93 T-Piece 07/06/17 18:00 103 07/06/17 16:00 99.1 104 26 149/112 (124) 97 07/06/17 16:00 104 07/06/17 14:00 96 I/O 07/06/17 07/06/17 07/06/17 07/07/17 07/07/17 07/07/17 07:00 15:00 23:00 07:00 15:00 23:00 Intake Total 1104 ml 86 ml 953 ml 985 ml Output Total 1475 ml 1075 ml 600 ml Balance -371 ml 86 ml -122 ml 385 ml IV Total 327 ml 86 ml 206 ml 217 ml Tube Feeding 477 ml 547 ml 488 ml Other 300 ml 200 ml 280 ml Output Urine Total 950 ml 1025 ml 600 ml Stool Total 525 ml 50 ml 0 ml Result Diagram: 07/07/1742107/07/17421 Imaging Last Impressions Chest X-Ray 07/07/17 0600 Signed Impressions: Service Date/Time: Friday, July 07, 2017 04:41 - CONCLUSION: 1. Cardiomegaly with increase in hazy airspace disease in the lungs since August 01. Anderson Raymond MD Abdomen X-Ray 06/22/17 0000 Signed Impressions: Service Date/Time: Thursday, June 22, 2017 15:43 - CONCLUSION: Nonspecific abdomen. K. Mauricio Culp MD Head CT 06/18/17 0000 Signed Impressions: Service Date/Time: Sunday, June 18, 2017 00:48 - CONCLUSION: Negative exam. No evidence of intracranial hemorrhage. Ronni Capps MD Bone Biopsy CT 06/17/17 0000 Signed Impressions: Service Date/Time: Saturday, June 17, 2017 12:35 - CONCLUSION: Bone marrow aspiration and biopsy complicated by intubation and resuscitation. Pathology is pending. Rell Valentin MD FACR Abdomen Ultrasound 06/16/17 0000 Signed Impressions: Service Date/Time: Friday, June 16, 2017 18:13 - CONCLUSION: Limited sonographic windows due to patient body habitus and bowel gas. Right renal cyst. Visualized portions of the abdomen otherwise within normal limits. Jose Bruno MD Lower Extremity Ultrasound 06/14/17 0000 Signed Impressions: Service Date/Time: Wednesday, June 14, 2017 08:15 - CONCLUSION: Normal examination. Kushal Camacho MD Objective Remarks General: Obese male in no acute distress. Tracheostomy. Heart: Irregular rhythm, tachycardic. Lungs: Coarse breath sounds bilaterally. Breathing is nonlabored. Abdomen: Soft, nontender, nondistended. Extremities: 2+ bilateral lower extremity edema. SCDs. Psych: Alert and oriented. Procedures 06/17/17 intubation 06/17/17 CPR 06/17/17 right femoral arterial catheter placement 06/18/17 right IJ central line placement 06/22/17 fiberoptic bronchoscopy 06/24/17 right axillary arterial catheter placement 06/24/17 tracheostomy, bronchoscopy Urinary Catheter: Yes Assessment to: Continue Anderson insert reason: ICU Pt Getting Diuretics Vascular Central Line Catheter: No A/P Problem List: (1) Hypotension ICD Code: I95.9 - Hypotension, unspecified Status: Acute (2) Symptomatic bradycardia ICD Code: R00.1 - Bradycardia, unspecified Status: Acute (3) CKD (chronic kidney disease), stage III ICD Code: N18.3 - Chronic kidney disease, stage 3 (moderate) Status: Chronic (4) Chronic systolic CHF (congestive heart failure) ICD Code: I50.22 - Chronic systolic (congestive) heart failure Status: Chronic (5) Atrial fibrillation ICD Code: I48.91 - Unspecified atrial fibrillation Status: Chronic (6) Acute worsening of stage 3 chronic kidney disease ICD Code: N18.3 - Chronic kidney disease, stage 3 (moderate) Status: Acute (7) Thrombocytopenia ICD Code: D69.6 - Thrombocytopenia, unspecified Status: Chronic Assessment and Plan 1. Symptomatic bradycardia: Appreciate cardiology recommendations. Monitor on telemetry. Symptoms are improving. Rate has improved. 2. Cardiogenic shock status post PEA cardiac arrest: Clinically improved. Appreciate cardiology recommendations. No evidence of anoxic injury. 3. Acute kidney injury superimposed on chronic kidney disease, stage III: BUN and creatinine are increasing. Avoid nephrotoxic medications. Nephrology consultation pending. Anderson catheter in place. 4. Severe sleep apnea: Needs home CPAP. Patient had seen Dr. Leigh as outpatient , but did not follow through with getting the CPAP. 5. Atrial fibrillation with RVR: Continue amiodarone, metoprolol. 6. Lower extremity edema: Ultrasound negative for DVT. 7. Seizure disorder: Continue Topamax. 8. Thrombocytopenia: Appreciate hematology recommendations. Status post bone marrow biopsy. 9. Acute hypoxic respiratory failure: Status post mechanical ventilation. Tolerating T piece. Continue bronchodilators, supplemental oxygen. 10. Morbid obesity, acute mild protein energy malnutrition: Continue Glucerna per NG tube. Beneprotein supplement. Avoid PEG tube secondary to body habitus. 11. GI prophylaxis: Protonix. 12. Chronic systolic congestive heart failure: Diuresis on hold secondary to renal insufficiency. 13. Diabetes mellitus: Monitor Accu-Cheks and cover with sliding scale insulin. 14. DVT prophylaxis: Eliquis. 15. HCAP/aspiration pneumonia: Sputum culture 06/20 growing Enterobacter. Completed course of cefepime, Flagyl. Now off antibiotics. 16. 2 frontal teeth removed during intubation Discharge Planning Will plan to keep in ICU at this time. Problem Qualifiers (1) Hypotension: Len Shah MD Jul 07, 2017 13:24
--- NOTE | 2017-07-07 14:30 | MB ---
cc: SHAKILA RAMOS MD DATE OF CONSULTATION: 07/07/2017. REASON FOR CONSULTATION: Elevated BUN and creatinine for evaluation. HISTORY OF PRESENT ILLNESS: This is a 57-year-old -[place] male with past medical history of seizure disorder, ischemic heart disease, cardiomyopathy, chronic kidney disease, hypertension, diabetes mellitus, atrial fibrillation who was admitted more than three weeks ago for shortness of breath. I was called to see the patient for elevated BUN and creatinine. The patient has a known history of chronic kidney disease and it seems like his baseline creatinine has been in the range of 1.4 to 1.7 and it has increased slightly and now it is 2.2. The patient also has a potassium of 5.7. He was on potassium supplement and also getting diuretics. The last potassium dose was given yesterday evening. The patient had a prolonged intubation and ended up with a tracheostomy and is now getting ready to get out of the intensive care unit. He has a Anderson catheter passing urine. He has been on Bumex which was also stopped after the creatinine had increased. His edema in the legs seems to be improving. The patient is not able to give any history because he has a tracheostomy but he is responding to verbal commands and he seems to be fully awake. PAST MEDICAL HISTORY: 1. Ischemic heart disease. 2. Congestive heart failure. 3. Atrial fibrillation. 4. Hypertension. 5. Diabetes mellitus. 6. Morbid obesity. 7. Sleep apnea. 8. Chronic kidney disease. PAST SURGICAL HISTORY: 1. Tracheostomy was done. 2. History of cardiac catheterization with ablation. REVIEW OF SYSTEMS: Cannot be taken since the patient is not responding but on a limited review of systems, he is saying that he does not have any abdominal pain, no chest pain. He has mild shortness of breath. He has a lot of secretions coming out. No headache, dizziness or blurring of vision. SOCIAL HISTORY: There is no history of smoking or alcoholism. FAMILY HISTORY: Noncontributory. ALLERGIES: 1. CASTOR OIL. MEDICATIONS: Currently he is on: 1. Marilee-Colace one tablet twice a day. 2. Eliquis 5 milligrams twice a day. 3. Topamax 100 milligrams once a day. 4. Protonix 40 milligrams once a day. 5. Cordarone 200 milligrams daily. 6. Digoxin 0.125 milligrams daily. 7. Levsin nebulizer. 8. Lopressor 75 milligrams q. 12 hours. 9. Insulin sliding scale. 10. Reglan 5 milligrams q. 8 hours. 11. DuoNeb nebulizer. 12. Narcan as needed. PHYSICAL EXAMINATION: GENERAL: On examination, the patient is awake and alert and he is in mild respiratory distress. VITAL SIGNS: His last blood pressure was 111/68, temperature is 98.8 with T-max of 99.8. Oxygen saturation on T-piece of 5 liters is 98% to 100%. HEAD, EYES, EARS, NOSE, THROAT: The pupils are mid-constricted. Nonicteric sclerae. Conjunctivae are normal. NECK: The neck is supple. JVD is not elevated. LUNGS: The patient has bilateral decreased air entry with occasional wheezing. HEART: S1 and S2 irregular rhythm. ABDOMEN: Abdomen is distended with gastrostomy tube. Bowel sounds positive. EXTREMITIES: He has mild edema in the legs. INVESTIGATIONS: White blood cell count is 11.2, hemoglobin 13.0, platelet count of 126,000. Sodium of 142, potassium 5.7, chloride 104, bicarbonate 32.5, BUN 65, creatinine 2.2, glucose 120. The last PTT is 34.3. Sputum culture growing Enterobacter on 06/20. Other cultures are all negative. No urinalysis done. IMAGING STUDIES: The patient had a chest x-ray done which shows cardiomegaly with increased haziness. Abdominal ultrasound was done on 06/16 which shows both kidneys look normal in size, right renal cyst. ASSESSMENT AND PLAN: 1. Chronic kidney disease acute worsening. 2. Hyperkalemia. 3. Respiratory failure 4. Hypertension 5. Diabetes mellitus 6. Atrial fibrillation. Patient has a history of chronic kidney disease most likely because of hypertensive or diabetic renal disease. I will get the urinalysis to see if he has any proteinuria. The patient had some increase in the creatinine. He was on Bumex and enalapril and both were stopped. His potassium this morning was 5.7. He has loose bowel movements and he was on potassium supplement which was also stopped so the acute worsening could be because of the diuretics but they have been stopped now so hopefully we will see some improvement in the renal function. Avoid any nephrotoxins. Follow the BUN and creatinine. Thank you for the consultation and I will follow the patient while he is in the hospital. MD BRIAN Rice/JCSierra /1:44 PM /2:04 PM
[2017-07-07 15:59] LABS: BLOOD, URINE NEG (NEG); GLUCOSE,URINE NEG (NEG); KETONE, URINE NEG (NEG); NITRITE,URINE NEG (NEG); PH, URINE 7.5 (5.0-8.5); URINE COLOR YELLOW (YELLW/STRAW)
[2017-07-07 16:01] LABS: COMMENT (UR) CATH-CULT NOT IND; CULTURE IF INDICATED CATH CULTURE NOT IND
--- NOTE | 2017-07-07 17:05 | MB ---
cc: SHASHA GORDILLO M.D. DATE OF CONSULTATION: 07/07/2017. REASON FOR CONSULTATION: Electrophysiology consultation for atrial fibrillation and possible atrial flutter with fast ventricular response. HISTORY OF PRESENT ILLNESS: Mr. Bruno is a 57-year-old -[place] gentleman with a cardiac arrest during a bone marrow biopsy. Subsequently the gentleman had a tracheostomy. He is on mechanical ventilation. He is awake. He follows verbal indications. The gentleman has atrial fibrillation with fast ventricular response. Heart rate controlled. Apparently in the past couple of days the rate was around 115 to 120 for a few seconds. I was consulted for further evaluation. The chart was reviewed. The patient was evaluated. ALLERGIES: CASTOR OIL. SOCIAL HISTORY: Currently negative for smoking and drinking. FAMILY HISTORY: Noncontributory to his current medical condition. MEDICATIONS: The gentleman is currently on: 1. Acetaminophen. 2. Amiodarone 200 milligrams a day. 3. He is on Eliquis 5 milligrams a day. 4. He is on Digoxin 0.125 milligrams IV daily. 5. He is feeding by an nasogastric tube with continuous feeding. REVIEW OF SYSTEMS: A review of systems could not be performed as the patient is on mechanical ventilation with tracheostomy. PHYSICAL EXAMINATION: GENERAL: Alert gentleman who follows verbal indications. VITAL SIGNS: Blood pressure 111/68, pulse around 105. LUNGS: Ventilated. NECK: With tracheostomy. CARDIOVASCULAR: S1-S2 irregular. EXTREMITIES: No significant edema. CARDIOLOGY STUDIES: Telemetry shows atrial fibrillation. LABS: Hemoglobin is 13, white blood cell count 11.2. Potassium is 5.7. Creatinine is 2.2. ASSESSMENT AND RECOMMENDATIONS: Mr. Bruno has tachyarrhythmia. He apparently is anxious. He is fully awake. This may be contributing to the high heart rate. He is on amiodarone. His creatinine is high. I am going to D/C the Digoxin. Blood pressure is adequate. I am going to add some metoprolol. There were some episodes of janene. If there is janene, a beta obdulio will be discontinued. If not, will continue him on the medication. The patient's condition is of care. His prognosis is guarded. Continue with current management. MD MEAGAN Maria/JCSierra /3:12 PM /4:54 PM
--- NOTE | 2017-07-07 19:07 | HHI.PR ---
Subjective Remarks Awake and moves arms well to command. On a T bar at 40 % Objective Vital Signs Date Time Temp Pulse Resp B/P (MAP) Pulse Ox O2 Delivery O2 Flow Rate FiO2 07/07/17 18:00 90 07/07/17 16:00 112 07/07/17 16:00 98.9 112 26 125/79 (94) 95 07/07/17 14:00 99 07/07/17 12:00 98.8 103 21 111/68 (82) 100 07/07/17 12:00 103 07/07/17 10:00 100 07/07/17 08:22 98 T-piece 5.00 28 07/07/17 08:00 100 07/07/17 08:00 99.8 100 21 126/94 (105) 100 07/07/17 07:00 99 T-Piece 28 07/07/17 06:00 112 07/07/17 04:00 106 07/07/17 04:00 99.2 106 25 102/64 (77) 99 07/07/17 02:00 108 07/07/17 01:27 98 T-piece 6.00 28 07/07/17 00:00 99.0 100 27 139/95 (110) 95 07/07/17 00:00 100 07/06/17 22:00 100 07/06/17 20:00 99.4 114 25 155/84 (107) 94 07/06/17 20:00 114 I/O 07/06/17 07/06/17 07/06/17 07/07/17 07/07/17 07/07/17 07:00 15:00 23:00 07:00 15:00 23:00 Intake Total 1104 ml 86 ml 953 ml 985 ml 902 ml Output Total 1475 ml 1075 ml 600 ml 550 ml Balance -371 ml 86 ml -122 ml 385 ml 352 ml IV Total 327 ml 86 ml 206 ml 217 ml 226 ml Tube Feeding 477 ml 547 ml 488 ml 526 ml Other 300 ml 200 ml 280 ml 150 ml Output Urine Total 950 ml 1025 ml 600 ml 550 ml Stool Total 525 ml 50 ml 0 ml 0 ml Result Diagram: 07/07/17 0422 07/07/17 0786 Objective Remarks This is a moderately obese elderly man is laying flat on oxygen by T-Bar. HEENT: Head normocephalic. Pupils reactive and enlarged. Throat is mildly injected. Nasal mucosa is clear. Neck: Supple with trach tube in place. No thyromegaly. Chest: Distant breath sounds with occasional crackles at the lung bases.Wheeze heard Heart: The heart sounds were regular, S1-S2. No murmur or S3. Abdomen: Soft and benign. No masses. No organomegaly or tenderness. Bowel sounds active. Extremities: No lesions or edema. Reflexes 1+ with no gross motor deficits. Neurologic: Cranial nerves grossly intact.Weak legs Skin: No lesions observed. Assessment and Plan Assessment and Plan IMPRESSION 1. Chronic respiratory failure. 2. Chronic kidney disease stage III. 3. Atrial fibrillation and ASHD. 4. History of diabetes mellitus. 5. Hypertension. 6. S/P Trach Plan: 1. Wean FIO2 to keep sat >92. 2. Change trach to # 8 shiley with fenestration 3. Nebs qid , dioneb 4. Cont antibiotics. 5. Swallow eval and Diet. 6. BMP ,CBC in am Kurtis Patiño MD Jul 07, 2017 19:07
[2017-07-07] MEDS ORDERED: DILTIAZEM HCL 25 MG/5 ML VIAL IV ONE (20:30)
[2017-07-07] MEDS: RESP: ACETYLCYSTEINE 10% 30 ML NEB NEB SCH (21:08)
[2017-07-07] MEDS ORDERED: ACETAMINOPHEN 325 MG TAB PO ONE (22:00)
[2017-07-07] MEDS ORDERED: ALPRAZolam 0.25 MG TAB PO ONE (22:00)
[2017-07-07] MEDS ORDERED: METOPROLOL TARTRATE 5 MG/5 ML VIAL IV PUSH ONE (22:30)
[2017-07-07] MEDS ORDERED: SODIUM POLYSTYRENE SULFONATE SUSP 15 GM/60 ML CUP PO ONE (22:30)
[2017-07-08] VITALS (18 sets, daily range): BP systolic 125–172; BP diastolic 61–80; PULSE 90–150; RESP 14–32; TEMP 99–99.7; O2SAT 93–100
[2017-07-08] MEDS: SODIUM CHLOR 0.9% 1000 ML INJ 1,000 ML IV SCH (01:53)
[2017-07-08] MEDS: METOPROLOL TARTRATE 5 MG/5 ML VIAL IV PUSH PRN (02:24)
[2017-07-08] MEDS: DILTIAZEM INJ 125 MG in SODIUM CHLORIDE 0.9% INJ 100 ML IV PRN (03:58)
[2017-07-08] MEDS: CHLORHEXIDINE GLUCONATE 2 % 1 PACK (2 CLOTHS) TOP SCH (04:00)
[2017-07-08] MEDS: HYOSCYAMINE SOLN 0.125 MG/ML 15 ML BTL PO SCH (04:38)
[2017-07-08] MEDS: RESP: ACETYLCYSTEINE 10% 30 ML NEB NEB SCH ×4 (04:52→20:33)
[2017-07-08] MEDS: RESP: ALBUTEROL 2.5 MG/3 ML NEB (PRN) INH (04:52)
[2017-07-08] MEDS: INSULIN NovoLIN REGULAR SUPPLEMENTAL SCALE SQ SCH ×3 (06:00→18:00)
[2017-07-08] MEDS: METOCLOPRAMIDE HCL 10 MG/2 ML VIAL IV PUSH SCH ×3 (06:53→22:14)
[2017-07-08] MEDS: METOPROLOL TARTRATE 25 MG TAB PO SCH ×3 (06:53→17:00)
[2017-07-08 07:26] LABS: HEMATOCRIT 42.1 % (39.0-51.0); MEAN CELL VOLUME 90.9 FL (80.0-100.0); MEAN CORPUSCULAR HEMOGLOBIN 27.2 PG (27.0-34.0); PLATELET COUNT 144 TH/MM3 (150-450); RED BLOOD COUNT 4.63 MIL/MM3 (4.50-5.90); RED CELL DISTRIBUTION WIDTH 14.6 % (11.6-17.2); WHITE BLOOD COUNT 10.4 TH/MM3 (4.0-11.0)
[2017-07-08 07:29] LABS: REVIEW FLAG FINAL
[2017-07-08 07:36] LABS: POTASSIUM 5.2 MEQ/L (3.5-5.1)
[2017-07-08] MEDS: CHLORHEXIDINE 0.12% (ORAL KIT) 15 ML CUP MT SCH ×2 (08:00→20:00)
[2017-07-08] MEDS: APIXABAN 5 MG TABLET NG SCH ×2 (08:21→22:14)
[2017-07-08] MEDS: TOPIRAMATE 100 MG TAB PO SCH (08:22)
[2017-07-08] MEDS: AMIODARONE 200 MG TAB NG SCH (08:22)
[2017-07-08] MEDS: PANTOPRAZOLE SODIUM 40 MG VIAL IV SCH (08:22)
[2017-07-08] MEDS: RESP: ALBUTEROL 2.5 MG/IPRATROPIUM 0.5 MG NEB (SCH) NEB ×3 (08:44→20:33)
[2017-07-08] MEDS: DOCUSATE SODIUM 50 MG/SENNA 8.6 MG TAB PO SCH ×2 (09:00→21:00)
[2017-07-08] MEDS: SODIUM CHLORIDE 0.9% FLUSH 10 ML FLUSH IV FLUSH SCH ×2 (09:00→21:00)
--- NOTE | 2017-07-08 12:02 | HHI.PR ---
Subjective Remarks Follow up respiratory failure, hx of cardiac arrest. The patient is nonverbal, but alert. He communicates with hand gestures. Indicates discomfort at the site of tracheostomy. Denies chest pain. Objective Vitals Vital Signs Date Time Temp Pulse Resp B/P (MAP) Pulse Ox O2 Delivery O2 Flow Rate FiO2 07/08/17 10:00 98 07/08/17 08:47 93 T-piece 07/08/17 08:00 99.7 98 14 140/75 (96) 100 07/08/17 08:00 98 07/08/17 07:00 106 07/08/17 07:00 90 T-Piece 30 07/08/17 06:00 108 07/08/17 04:54 93 T-piece 28 07/08/17 04:00 128 07/08/17 04:00 99.3 122 17 141/74 (96) 95 07/08/17 03:58 129 131/69 07/08/17 02:00 116 07/08/17 00:00 99.6 96 32 125/66 (85) 97 07/08/17 00:00 120 07/07/17 22:00 120 07/07/17 21:13 96 T-piece 6.00 28 07/07/17 20:00 118 07/07/17 20:00 100.6 112 30 132/89 (103) 99 07/07/17 19:00 93 T-Piece 28 07/07/17 18:00 90 07/07/17 16:00 112 07/07/17 16:00 98.9 112 26 125/79 (94) 95 07/07/17 14:00 99 07/07/17 12:00 98.8 103 21 111/68 (82) 100 07/07/17 12:00 103 I/O 07/07/17 07/07/17 07/07/17 07/08/17 07/08/17 07/08/17 07:00 15:00 23:00 07:00 15:00 23:00 Intake Total 985 ml 902 ml 927 ml Output Total 600 ml 550 ml 1075 ml Balance 385 ml 352 ml -148 ml IV Total 217 ml 226 ml 293 ml Tube Feeding 488 ml 526 ml 634 ml Other 280 ml 150 ml Output Urine Total 600 ml 550 ml 675 ml Stool Total 0 ml 0 ml 400 ml Result Diagram: 07/08/17 0545 07/08/17 0545 Imaging Last Impressions Chest X-Ray 07/07/17 0600 Signed Impressions: Service Date/Time: Friday, July 07, 2017 04:41 - CONCLUSION: 1. Cardiomegaly with increase in hazy airspace disease in the lungs since August 01. Anderson Raymond MD Abdomen X-Ray 06/22/17 0000 Signed Impressions: Service Date/Time: Thursday, June 22, 2017 15:43 - CONCLUSION: Nonspecific abdomen. KMark Culp MD Head CT 06/18/17 0000 Signed Impressions: Service Date/Time: Sunday, June 18, 2017 00:48 - CONCLUSION: Negative exam. No evidence of intracranial hemorrhage. Ronni Capps MD Bone Biopsy CT 06/17/17 0000 Signed Impressions: Service Date/Time: Saturday, June 17, 2017 12:35 - CONCLUSION: Bone marrow aspiration and biopsy complicated by intubation and resuscitation. Pathology is pending. Rell Valentin MD FACR Abdomen Ultrasound 06/16/17 0000 Signed Impressions: Service Date/Time: Friday, June 16, 2017 18:13 - CONCLUSION: Limited sonographic windows due to patient body habitus and bowel gas. Right renal cyst. Visualized portions of the abdomen otherwise within normal limits. Jose Bruno MD Lower Extremity Ultrasound 06/14/17 0000 Signed Impressions: Service Date/Time: Wednesday, June 14, 2017 08:15 - CONCLUSION: Normal examination. Kushal Camacho MD Objective Remarks General: Obese male in no acute distress. Tracheostomy. Heart: Irregular rhythm, tachycardic. Lungs: Coarse breath sounds bilaterally. Breathing is nonlabored. Abdomen: Soft, nontender, nondistended. Extremities: 1+ bilateral lower extremity edema. Psych: Alert, nonverbal. Procedures 06/17/17 intubation 06/17/17 CPR 06/17/17 right femoral arterial catheter placement 06/18/17 right IJ central line placement 06/22/17 fiberoptic bronchoscopy 06/24/17 right axillary arterial catheter placement 06/24/17 tracheostomy, bronchoscopy Urinary Catheter: Yes Assessment to: Continue Anderson insert reason: Prolonged Immobilization A/P Problem List: (1) Hypotension ICD Code: I95.9 - Hypotension, unspecified Status: Acute (2) Symptomatic bradycardia ICD Code: R00.1 - Bradycardia, unspecified Status: Acute (3) CKD (chronic kidney disease), stage III ICD Code: N18.3 - Chronic kidney disease, stage 3 (moderate) Status: Chronic (4) Chronic systolic CHF (congestive heart failure) ICD Code: I50.22 - Chronic systolic (congestive) heart failure Status: Chronic (5) Atrial fibrillation ICD Code: I48.91 - Unspecified atrial fibrillation Status: Chronic (6) Acute worsening of stage 3 chronic kidney disease ICD Code: N18.3 - Chronic kidney disease, stage 3 (moderate) Status: Acute (7) Thrombocytopenia ICD Code: D69.6 - Thrombocytopenia, unspecified Status: Chronic Assessment and Plan 1. Symptomatic bradycardia: Appreciate cardiology recommendations. Monitor on telemetry. Symptoms are improving. Rate has improved. 2. Cardiogenic shock status post PEA cardiac arrest: Clinically improved. Appreciate cardiology recommendations. No evidence of anoxic injury. 3. Acute kidney injury superimposed on chronic kidney disease, stage III: BUN and creatinine are increasing. Avoid nephrotoxic medications. Appreciate nephrology recommendations. Anderson catheter in place. 4. Severe sleep apnea: Needs home CPAP. Patient had seen Dr. Leigh as outpatient , but did not follow through with getting the CPAP. 5. Atrial fibrillation with RVR: Continue amiodarone, metoprolol. On Cardizem drip. 6. Lower extremity edema: Ultrasound negative for DVT. 7. Seizure disorder: Continue Topamax. 8. Thrombocytopenia: Appreciate hematology recommendations. Status post bone marrow biopsy. 9. Acute hypoxic respiratory failure: Status post mechanical ventilation. Tolerating T piece. Continue bronchodilators, supplemental oxygen. Trach management per pulmonology. Change to #8 Shiley fenestrated trach. 10. Morbid obesity, acute mild protein energy malnutrition: Continue Glucerna per NG tube. Beneprotein supplement. Avoid PEG tube secondary to body habitus. 11. GI prophylaxis: Protonix. 12. Chronic systolic congestive heart failure: Diuresis on hold secondary to renal insufficiency. 13. Diabetes mellitus: Monitor Accu-Cheks and cover with sliding scale insulin. 14. DVT prophylaxis: Eliquis. 15. HCAP/aspiration pneumonia: Sputum culture 06/20 growing Enterobacter. Completed course of cefepime, Flagyl. Now off antibiotics. 16. 2 front teeth removed during intubation Discharge Planning Will plan to keep in ICU at this time. Problem Qualifiers (1) Hypotension: Len Shah MD Jul 08, 2017 12:02
--- NOTE | 2017-07-08 12:21 | RADRPT ---
EXAM DATE/TIME: 07/08/2017 11:20 [facility] COMPARISON: No previous studies available for comparison. INDICATIONS : NG tube placement. MEDICAL HISTORY : Hypertension. Diabetes mellitus type I. SURGICAL HISTORY : None. ENCOUNTER: Initial ACUITY: 1 day PAIN SCORE: Non-responsive. LOCATION: Abdomen. FINDINGS: Examination of the abdomen demonstrates a normal bowel gas pattern. No free air is identified. No o rganomegaly is evident. Osseous structures are intact. NG tube tip overlies expected location of the distal stomach. CONCLUSION: NG tube as above. Florentino Herrera MD on July 08, 2017 at 12:19 Board Certified Radiologist. This report was verified electronically.
--- NOTE | 2017-07-08 13:14 | PD.ONC.PN ---
Subjective Subjective Remarks Events past week noted. Pt attempt to move to chair aborted, problem with equipment. Pt wake trying to mouth words, difficult to understand. Objective Data Date Time Temp Pulse Resp B/P (MAP) Pulse Ox O2 Delivery O2 Flow Rate FiO2 07/08/17 10:00 98 07/08/17 08:47 93 T-piece 07/08/17 08:00 99.7 98 14 140/75 (96) 100 07/08/17 08:00 98 07/08/17 07:00 106 07/08/17 07:00 90 T-Piece 30 07/08/17 06:00 108 07/08/17 04:54 93 T-piece 28 07/08/17 04:00 128 07/08/17 04:00 99.3 122 17 141/74 (96) 95 07/08/17 03:58 129 131/69 07/08/17 02:00 116 07/08/17 00:00 99.6 96 32 125/66 (85) 97 07/08/17 00:00 120 07/07/17 22:00 120 07/07/17 21:13 96 T-piece 6.00 28 07/07/17 20:00 118 07/07/17 20:00 100.6 112 30 132/89 (103) 99 07/07/17 19:00 93 T-Piece 28 07/07/17 18:00 90 07/07/17 16:00 112 07/07/17 16:00 98.9 112 26 125/79 (94) 95 07/07/17 14:00 99 07/08/17 07/08/17 07/08/17 06:59 14:59 22:59 Intake Total 927 ml Output Total 1075 ml Balance -148 ml Result Diagram: 07/08/17 0545 07/08/17 0545 Laboratory Results Laboratory Tests Test 07/07/17 15:10 07/07/17 15:56 07/08/17 05:45 Urine Color YELLOW Urine Turbidity CLEAR Urine pH 7.5 Urine Specific [place] 1.024 Urine Protein 30 mg/dL Urine Glucose (UA) NEG mg/dL Urine Ketones NEG mg/dL Urine Occult Blood NEG Urine Nitrite NEG Urine Bilirubin NEG Urine Urobilinogen 2.0 MG/DL Urine Leukocyte Esterase TRACE Urine RBC 15 /hpf Urine WBC 4 /hpf Microscopic Urinalysis Comment CATH-CULT NOT IND Potassium Level 5.5 MEQ/L 5.2 MEQ/L White Blood Count 10.4 TH/MM3 Red Blood Count 4.63 MIL/MM3 Hemoglobin 12.6 GM/DL Hematocrit 42.1 % Mean Corpuscular Volume 90.9 FL Mean Corpuscular Hemoglobin 27.2 PG Mean Corpuscular Hemoglobin Concent 30.0 % Red Cell Distribution Width 14.6 % Platelet Count 144 TH/MM3 Mean Platelet Volume 11.8 FL Blood Urea Nitrogen 68 MG/DL Creatinine 2.23 MG/DL Random Glucose 123 MG/DL Calcium Level 9.1 MG/DL Sodium Level 140 MEQ/L Chloride Level 104 MEQ/L Carbon Dioxide Level 30.0 MEQ/L Anion Gap 6 MEQ/L Estimat Glomerular Filtration Rate 37 ML/MIN Imaging Studies Last 24 hours Impressions Abdomen X-Ray 07/08/17 0000 Signed Impressions: Service Date/Time: Saturday, July 08, 2017 11:20 - CONCLUSION: NG tube as above. Florentino Herrera MD Administered Medications Medications (Trade) Dose Ordered Sig/Ashok Route PRN Reason Start Time Stop Time Status Last Admin Dose Admin Topiramate (Topamax) 100 mg DAILY PO 06/14/17 11:00 07/08/17 08:22 Acetaminophen (Tylenol) 650 mg Q6H PRN PO FEVER 06/15/17 21:30 06/30/17 20:37 Chlorhexidine Gluconate (Peridex 0.12% Liq) 15 ml BID@08,20 MT 06/17/17 20:00 07/07/17 21:34 Sodium Chloride 1,000 ml @ 20 mls/hr Q24H IV 06/17/17 14:00 07/08/17 01:53 Sodium Chloride (NS Flush) 2 ml BID IV FLUSH 06/17/17 21:00 07/07/17 21:34 Pantoprazole Sodium (Protonix Inj) 40 mg DAILY IV 06/18/17 09:00 07/08/17 08:22 Artificial Tears (Tears Naturale Opth Soln) 1 drop TID EACH EYE 06/17/17 18:00 07/07/17 17:25 Ondansetron HCl (Zofran Inj) 4 mg Q6H PRN IV NAUSEA OR VOMITING 06/17/17 14:15 06/22/17 08:22 Albuterol Sulfate (Albuterol Neb) 2.5 mg Q2HR NEB PRN INH SOB/WHEEZING 06/17/17 14:15 07/08/17 04:52 Chlorhexidine Gluconate (Chlorhexidine 2% Cloth) 3 pack Taper DAILY@04 TOP 06/18/17 04:00 06/14/18 03:59 07/02/17 04:00 Senna/Docusate Sodium (Marilee-Colace) 1 tab BID PO 06/17/17 21:00 07/07/17 21:33 Magnesium Hydroxide (Milk Of Magnesia Liq) 30 ml Q12H PRN PO MILD - MODERATE CONSTIPATION 06/17/17 14:15 06/21/17 11:21 Lactulose (Lactulose Liq) 30 ml DAILY PRN PO SEVERE CONSITIPATION 06/17/17 14:15 06/21/17 11:21 Insulin Human Regular (NovoLIN R SUPPLEMENTAL SCALE) 1 Q6HR SQ 06/17/17 18:00 06/24/17 19:35 Labetalol HCl (Trandate Inj) 10 mg Q1HR PRN IV PUSH SBP>160, DBP>90, HR>65 06/18/17 08:45 07/06/17 16:24 Hydralazine HCl (Apresoline Inj) 10 mg Q1HR PRN IV PUSH SBP>160, DBP>90 06/18/17 08:45 07/03/17 02:27 Nitroglycerin (Nitroglycerin 2% Oint) 2 inch Q6HR PRN TOPICAL SBP>160, DBP>90 06/18/17 08:45 06/18/17 13:00 Metoclopramide HCl (Reglan Inj) 5 mg Q8HR IV PUSH 06/22/17 15:45 07/08/17 06:53 Metoprolol Tartrate (Lopressor Inj) 2.5 mg Q6H PRN IV PUSH SUSTAINED HR GREATER THAN 110 06/25/17 15:30 07/08/17 02:24 Amiodarone HCl (Cordarone) 200 mg DAILY NG 06/29/17 11:00 07/08/17 08:22 Acetaminophen/ Hydrocodone Bitart ([place] 5-325 Mg) 1 tab Q6H PRN PO PAIN 06/29/17 18:00 07/07/17 23:24 Morphine Sulfate (Morphine Inj) 2 mg Q3H PRN IV PUSH BREAKTHROUGH PAIN 1-5 06/29/17 18:00 06/29/17 18:12 Morphine Sulfate (Morphine Inj) 4 mg Q3H PRN IV PUSH BREAKTHROUGH PAIN 6-10 06/29/17 18:00 07/06/17 23:11 Bumetanide (Bumex Inj) 1 mg BID@09,18 IV PUSH 06/30/17 18:00 Future Hold 07/06/17 18:00 Enalapril Maleate (Vasotec) 10 mg DAILY NG 07/01/17 09:00 Future Hold 07/05/17 08:50 Apixaban (Eliquis) 5 mg BID NG 07/06/17 12:00 07/08/17 08:21 Hyoscyamine Sulfate (Levsin Liq) 0.125 mg Q6HR NEB PO 07/06/17 22:00 07/12/17 21:59 07/08/17 04:38 Albuterol/ Ipratropium (Duoneb Neb) 1 ampule Q6HR WHILE AWAKE NEB NEB 07/07/17 08:00 07/08/17 08:44 Metoprolol Tartrate (Lopressor) 25 mg Q6HR PO 07/07/17 18:00 07/08/17 06:53 Acetylcysteine (Mucomyst 10% Neb) 2 ml Q6HR NEB NEB 07/07/17 22:00 07/08/17 08:44 Diltiazem HCl 125 mg/Sodium Chloride 125 ml @ 5 mls/hr TITRATE PRN IV Tachycardia 07/08/17 03:30 07/08/17 03:58 Objective Remarks GENERAL: Obese male thinner, trach midline. No oozing. SKIN: Warm and dry. Poor dentition, Awake mouthing out words. HEAD: Normocephalic. EYES: No injection or drainage. NECK: Supple, trachea midline. CARDIOVASCULAR: CM shows Afib. RESPIRATORY: Clear anteriorly. Breathing unlabored. GASTROINTESTINAL: Abdomen obese, nondistended. EXTREMITIES: No cyanosis. SCDs to bilateral lower extremities NEUROLOGICAL: Grasp with hands, needs assist in turning. Assessment/Plan Problem List: (1) Thrombocytopenia ICD Codes: D69.6 - Thrombocytopenia, unspecified Status: Chronic Plan: 07/08/17. 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 --?ITP --Patient has long-standing history of thrombocytopenia, dating back to 2003. --s/p bone marrow biopsy in IR, 06/17. pathology shows hypercellular bone marrow (2) Atrial fibrillation ICD Codes: I48.91 - Unspecified atrial fibrillation Status: Chronic Plan: 07/08/17. Eliquis restarted. Critical care managing atrial fibrillation to control rate. Renal function stable. -- Eliquis currently on hold Assessment 57-year-old male admitted with generalized weakness and nausea. Hematology consulted for thrombocytopenia. After patient's bone marrow biopsy on 06/17, he became hypoxic and was intubated. Now in ISC on mechanical ventilation. Plan 1. Continue on mechanical ventilation tacheostomy 2. Eliquis restarted, GFR 37% 3. Platelets 144K, no bleeding. No treatment needed. Cindy Aguilera MD Jul 08, 2017 13:13
--- NOTE | 2017-07-08 15:30 | HHI.PR ---
Subjective Remarks Awake and stable. On a T bar at 40 %. Trach secretions are thick. Objective Vital Signs Date Time Temp Pulse Resp B/P (MAP) Pulse Ox O2 Delivery O2 Flow Rate FiO2 07/08/17 14:00 103 07/08/17 12:00 103 07/08/17 10:00 98 07/08/17 08:47 93 T-piece 07/08/17 08:00 99.7 98 14 140/75 (96) 100 07/08/17 08:00 98 07/08/17 07:00 106 07/08/17 07:00 90 T-Piece 30 07/08/17 06:00 108 07/08/17 04:54 93 T-piece 28 07/08/17 04:00 128 07/08/17 04:00 99.3 122 17 141/74 (96) 95 07/08/17 03:58 129 131/69 07/08/17 02:00 116 07/08/17 00:00 99.6 96 32 125/66 (85) 97 07/08/17 00:00 120 07/07/17 22:00 120 07/07/17 21:13 96 T-piece 6.00 28 07/07/17 20:00 118 07/07/17 20:00 100.6 112 30 132/89 (103) 99 07/07/17 19:00 93 T-Piece 28 07/07/17 18:00 90 07/07/17 16:00 112 07/07/17 16:00 98.9 112 26 125/79 (94) 95 I/O 07/07/17 07/07/17 07/07/17 07/08/17 07/08/17 07/08/17 06:59 14:59 22:59 06:59 14:59 22:59 Intake Total 985 ml 902 ml 927 ml Output Total 600 ml 550 ml 1075 ml Balance 385 ml 352 ml -148 ml IV Total 217 ml 226 ml 293 ml Tube Feeding 488 ml 526 ml 634 ml Other 280 ml 150 ml Output Urine Total 600 ml 550 ml 675 ml Stool Total 0 ml 0 ml 400 ml Result Diagram: 07/08/17 0545 07/08/17 0545 Objective Remarks This is a moderately obese elderly man is laying flat on oxygen by T-Bar. HEENT: Head normocephalic. Pupils reactive and enlarged. Throat is mildly injected. Nasal mucosa is clear. Neck: Supple with trach tube in place. No thyromegaly. Chest: Distant breath sounds with occasional crackles at the lung bases.Occ Wheeze Heart: The heart sounds were regular, S1-S2. No murmur or S3. Abdomen: Soft and benign. No masses. No organomegaly or tenderness. Bowel sounds active. Extremities: Mild edema. Reflexes 1+ with no gross motor deficits. Neurologic: Cranial nerves grossly intact.Weak legs Skin: No lesions observed. Assessment and Plan Assessment and Plan IMPRESSION 1. Chronic respiratory failure. 2. Chronic kidney disease stage III. 3. Atrial fibrillation and ASHD. 4. History of diabetes mellitus. 5. Hypertension. 6. S/P Trach Plan: 1. Wean FIO2 to keep sat >92. 2. Mucomyst 2 CC 20 % tid with nebs. 3. Nebs qid , dioneb 4. Cont antibiotics. 5. Swallow eval and Diet. 6. BMP ,CBC in am Kurtis Patiño MD Jul 08, 2017 15:29
--- NOTE | 2017-07-08 15:45 | HHI.PR ---
Subjective Remarks On mechanical ventilation Follow verbal indication Objective Vital Signs Date Time Temp Pulse Resp B/P (MAP) Pulse Ox O2 Delivery O2 Flow Rate FiO2 07/08/17 14:00 103 07/08/17 12:00 103 07/08/17 10:00 98 07/08/17 08:47 93 T-piece 07/08/17 08:00 99.7 98 14 140/75 (96) 100 07/08/17 08:00 98 07/08/17 07:00 106 07/08/17 07:00 90 T-Piece 30 07/08/17 06:00 108 07/08/17 04:54 93 T-piece 28 07/08/17 04:00 128 07/08/17 04:00 99.3 122 17 141/74 (96) 95 07/08/17 03:58 129 131/69 07/08/17 02:00 116 07/08/17 00:00 99.6 96 32 125/66 (85) 97 07/08/17 00:00 120 07/07/17 22:00 120 07/07/17 21:13 96 T-piece 6.00 28 07/07/17 20:00 118 07/07/17 20:00 100.6 112 30 132/89 (103) 99 07/07/17 19:00 93 T-Piece 28 07/07/17 18:00 90 07/07/17 16:00 112 07/07/17 16:00 98.9 112 26 125/79 (94) 95 I/O 07/07/17 07/07/17 07/07/17 07/08/17 07/08/17 07/08/17 07:00 15:00 23:00 07:00 15:00 23:00 Intake Total 985 ml 902 ml 927 ml Output Total 600 ml 550 ml 1075 ml Balance 385 ml 352 ml -148 ml IV Total 217 ml 226 ml 293 ml Tube Feeding 488 ml 526 ml 634 ml Other 280 ml 150 ml Output Urine Total 600 ml 550 ml 675 ml Stool Total 0 ml 0 ml 400 ml Result Diagram: 07/08/17 0545 07/08/17 0545 Imaging Follow verbal indication Tracheostomy Lungs: ventilated Heart: S1, S2 irregular, no gallop Abdomen: obese, no mass Ext: no edema Last Impressions Abdomen X-Ray 07/08/17 0000 Signed Impressions: Service Date/Time: Saturday, July 08, 2017 11:20 - CONCLUSION: NG tube as above. Florentino Herrera MD Chest X-Ray 07/07/17 0600 Signed Impressions: Service Date/Time: Friday, July 07, 2017 04:41 - CONCLUSION: 1. Cardiomegaly with increase in hazy airspace disease in the lungs since August 01. Anderson Raymond MD Head CT 06/18/17 0000 Signed Impressions: Service Date/Time: Sunday, June 18, 2017 00:48 - CONCLUSION: Negative exam. No evidence of intracranial hemorrhage. Ronni Capps MD Bone Biopsy CT 06/17/17 0000 Signed Impressions: Service Date/Time: Saturday, June 17, 2017 12:35 - CONCLUSION: Bone marrow aspiration and biopsy complicated by intubation and resuscitation. Pathology is pending. Rell Valentin MD FACR Abdomen Ultrasound 06/16/17 0000 Signed Impressions: Service Date/Time: Friday, June 16, 2017 18:13 - CONCLUSION: Limited sonographic windows due to patient body habitus and bowel gas. Right renal cyst. Visualized portions of the abdomen otherwise within normal limits. Jose Bruno MD Lower Extremity Ultrasound 06/14/17 0000 Signed Impressions: Service Date/Time: Wednesday, June 14, 2017 08:15 - CONCLUSION: Normal examination. Kushal Camacho MD Current Medications Medications (Trade) Dose Ordered Sig/Ashok Route Start Time Stop Time Status Last Admin (Narcan Inj) 0.4 mg UNSCH PRN IV 06/14/17 04:30 (Topamax) 100 mg DAILY PO 06/14/17 11:00 07/08/17 08:22 (Tylenol) 650 mg Q6H PRN PO 06/15/17 21:30 06/30/17 20:37 (Peridex 0.12% Liq) 15 ml BID@08,20 MT 06/17/17 20:00 07/07/17 21:34 Sodium Chloride 1,000 ml @ 20 mls/hr Q24H IV 06/17/17 14:00 07/08/17 01:53 (NS Flush) 2 ml UNSCH PRN IV FLUSH 06/17/17 14:15 (NS Flush) 2 ml BID IV FLUSH 06/17/17 21:00 07/07/17 21:34 (Protonix Inj) 40 mg DAILY IV 06/18/17 09:00 07/08/17 08:22 (Tears Naturale Opth Soln) 1 drop TID EACH EYE 06/17/17 18:00 07/07/17 17:25 (Zofran Inj) 4 mg Q6H PRN IV 06/17/17 14:15 06/22/17 08:22 (Albuterol Neb) 2.5 mg Q2HR NEB PRN INH 06/17/17 14:15 07/08/17 04:52 Miscellaneous Information 1 Q361D XX 06/17/17 14:15 (Chlorhexidine 2% Cloth) 3 pack Taper DAILY@04 TOP 06/18/17 04:00 06/14/18 03:59 07/02/17 04:00 (Chlorhexidine 2% Cloth) 3 pack UNSCH PRN TOP 06/17/17 14:15 (Marilee-Colace) 1 tab BID PO 06/17/17 21:00 07/07/17 21:33 (Milk Of Magnesia Liq) 30 ml Q12H PRN PO 06/17/17 14:15 06/21/17 11:21 (Senokot) 17.2 mg Q12H PRN PO 06/17/17 14:15 (Dulcolax Supp) 10 mg DAILY PRN RECTAL 06/17/17 14:15 (Lactulose Liq) 30 ml DAILY PRN PO 06/17/17 14:15 06/21/17 11:21 (D50w (Vial) Inj) 50 ml UNSCH PRN IV 06/17/17 14:15 (Glucagon Inj) 1 mg UNSCH PRN OTHER 06/17/17 14:15 (NovoLIN R SUPPLEMENTAL SCALE) 1 Q6HR SQ 06/17/17 18:00 06/24/17 19:35 (Trandate Inj) 10 mg Q1HR PRN IV PUSH 06/18/17 08:45 07/06/17 16:24 (Apresoline Inj) 10 mg Q1HR PRN IV PUSH 06/18/17 08:45 07/03/17 02:27 (Nitroglycerin 2% Oint) 2 inch Q6HR PRN TOPICAL 06/18/17 08:45 06/18/17 13:00 (Reglan Inj) 5 mg Q8HR IV PUSH 06/22/17 15:45 07/08/17 13:00 (Lopressor Inj) 2.5 mg Q6H PRN IV PUSH 06/25/17 15:30 07/08/17 02:24 (Cordarone) 200 mg DAILY NG 06/29/17 11:00 07/08/17 08:22 ([employer] 5-325 Mg) 1 tab Q6H PRN PO 06/29/17 18:00 07/07/17 23:24 (Morphine Inj) 2 mg Q3H PRN IV PUSH 06/29/17 18:00 06/29/17 18:12 (Morphine Inj) 4 mg Q3H PRN IV PUSH 06/29/17 18:00 07/06/17 23:11 (Bumex Inj) 1 mg BID@,18 IV PUSH 06/30/17 18:00 Future Hold 07/06/17 18:00 (Vasotec) 10 mg DAILY NG 07/01/17 09:00 Future Hold 07/05/17 08:50 (Eliquis) 5 mg BID NG 07/06/17 12:00 07/08/17 08:21 (Levsin Liq) 0.125 mg Q6HR NEB PO 07/06/17 22:00 07/12/17 21:59 07/08/17 04:38 (Duoneb Neb) 1 ampule Q6HR WHILE AWAKE NEB NEB 07/07/17 08:00 07/08/17 13:50 (Lopressor) 25 mg Q6HR PO 07/07/17 18:00 07/08/17 13:00 (Mucomyst 10% Neb) 2 ml Q6HR NEB NEB 07/07/17 22:00 07/08/17 13:50 Diltiazem HCl 125 mg/Sodium Chloride 125 ml @ 5 mls/hr TITRATE PRN IV 07/08/17 03:30 07/08/17 03:58 Assessment and Plan Problem List: (1) Hypotension ICD Codes: I95.9 - Hypotension, unspecified Status: Acute Plan: SBP 140 (2) Atrial fibrillation with RVR ICD Codes: I48.91 - Unspecified atrial fibrillation Status: Resolved Plan: In atrial fibrillation HR control Continue with current management Prognosis guarded Problem Qualifiers (1) Hypotension: Michelle,Hanscy MD Jul 08, 2017 15:45
--- NOTE | 2017-07-08 16:08 | HHI.NPPN ---
Subjective History of Present Illness 57-year-old -[place] male with past medical history of seizure disorder, ischemic heart disease, cardiomyopathy, chronic kidney disease, hypertension, diabetes mellitus, atrial fibrillation who was admitted more than three weeks ago for shortness of breath. I was called to see the patient for elevated BUN and creatinine. The patient has a known history of chronic kidney disease and it seems like his baseline creatinine has been in the range of 1.4 to 1.7. Additional Remarks Patient remain with Trach. and T-Piece, clinically same. Review of Systems Respiratory Lungs: SOB, Cough, Sputum, Wheeze Cardiovascular Cardiac: Edema, GATES Objective Data Data Vital Signs Date Time Temp Pulse Resp B/P (MAP) Pulse Ox O2 Delivery O2 Flow Rate FiO2 07/08/17 14:00 103 07/08/17 12:00 103 07/08/17 10:00 98 07/08/17 08:47 93 T-piece 07/08/17 08:00 99.7 98 14 140/75 (96) 100 07/08/17 08:00 98 07/08/17 07:00 106 07/08/17 07:00 90 T-Piece 30 07/08/17 06:00 108 07/08/17 04:54 93 T-piece 28 07/08/17 04:00 128 07/08/17 04:00 99.3 122 17 141/74 (96) 95 07/08/17 03:58 129 131/69 07/08/17 02:00 116 07/08/17 00:00 99.6 96 32 125/66 (85) 97 07/08/17 00:00 120 07/07/17 22:00 120 07/07/17 21:13 96 T-piece 6.00 28 07/07/17 20:00 118 07/07/17 20:00 100.6 112 30 132/89 (103) 99 07/07/17 19:00 93 T-Piece 28 07/07/17 18:00 90 -: 07/08/17 0545 07/08/17 0545 Physical Exam General Appearance: No Acute Distress, Comfortable Eyes Eye Exam: Pupils Equal Throat Throat Exam: Oral Mucosa [place] & Moist Neck Neck Exam: Neck Supple Pulmonary Resp Exam: Crackles, Rhonchi, Sputum, Decreased Bases, Diminished Breath Sounds Gastrointestinal/Abdomen GI Exam: Soft, Non-Tender, Bowel Sounds Present, Distended Extremeties Extremities Exam: Moderate Edema, Pitting Edema, Dependent Edema Neurologic Neuro Exam: Alert, Awake, Oriented Psychiatric Psych Exam: Appropriate Responses Assessment/Plan Assessment Summary: DENNYS/Acute Renal Failure, CKD Stage III Problem List: (1) Acute kidney injury ICD Codes: N17.9 - Acute kidney failure, unspecified (2) CHF (congestive heart failure) ICD Codes: I50.9 - Heart failure, unspecified Status: Resolved (3) DM (diabetes mellitus) ICD Codes: E11.9 - Type 2 diabetes mellitus without complications Status: Chronic (4) Peripheral edema ICD Codes: R60.9 - Edema, unspecified Status: Acute (5) Atrial fibrillation ICD Codes: I48.91 - Unspecified atrial fibrillation Status: Chronic (6) Atrial fibrillation with RVR ICD Codes: I48.91 - Unspecified atrial fibrillation Status: Resolved (7) CKD (chronic kidney disease), stage III ICD Codes: N18.3 - Chronic kidney disease, stage 3 (moderate) Status: Chronic Plan Patient has stable Creatinine of 2.2. He has chronic kidney disease and the baseline Creatinine is close to 1.7-1.8. Most likely has underlying Hypertensive or renovascular disease. K is better, 5.2. Continue to hold diuretics. Urine out put is adequate. Possibly has ATN causing DENNYS. Follow the urine out put and BMP. Avoid Nephrotoxins. Rajan Hoyt MD Jul 08, 2017 16:08
[2017-07-08] MEDS: hydrALAZINE HCL 20 MG/ML VIAL IV PUSH PRN (22:14)
[2017-07-09] VITALS (18 sets, daily range): BP systolic 48–165; BP diastolic 75–98; PULSE 89–130; RESP 16–27; TEMP 98.1–99.3; O2SAT 95–100
[2017-07-09] MEDS: SODIUM CHLOR 0.9% 1000 ML INJ 1,000 ML IV SCH (01:25)
[2017-07-09] MEDS: RESP: ACETYLCYSTEINE 10% 30 ML NEB NEB SCH ×2 (02:52→20:40)
[2017-07-09] MEDS: RESP: ALBUTEROL 2.5 MG/3 ML NEB (PRN) INH (02:52)
[2017-07-09] MEDS: CHLORHEXIDINE GLUCONATE 2 % 1 PACK (2 CLOTHS) TOP SCH (04:00)
[2017-07-09] MEDS: MORPHINE SULFATE 4 MG/ML INJ IV PUSH PRN ×2 (05:27→12:38)
[2017-07-09] MEDS: METOCLOPRAMIDE HCL 10 MG/2 ML VIAL IV PUSH SCH ×3 (05:28→21:08)
[2017-07-09 05:29] LABS: AUTOMATED NEUTROPHIL # 9.1 TH/MM3 (1.8-7.7); BASOPHIL # 0.1 TH/MM3 (0-0.2); BASOPHIL % 0.9 % (0.0-2.0); EOSINOPHIL # 0.3 TH/MM3 (0-0.4); EOSINOPHIL % 2.1 % (0.0-4.0); HEMATOCRIT 40.2 % (39.0-51.0); HEMO FLAGS DIFF FINAL; LYMPH % 9.9 % (9.0-44.0); LYMPHOCYTE # 1.2 TH/MM3 (1.0-4.8); MEAN CELL VOLUME 91.5 FL (80.0-100.0); MEAN CORPUSCULAR HEMOGLOBIN 29.1 PG (27.0-34.0); MEAN CORPUSCULAR HGB CONC 31.8 % (32.0-36.0); MONO % 12.4 % (0.0-8.0); NEUT % 74.7 % (16.0-70.0); PLATELET COUNT 176 TH/MM3 (150-450); RED CELL DISTRIBUTION WIDTH 14.4 % (11.6-17.2); WHITE BLOOD COUNT 12.2 TH/MM3 (4.0-11.0)
[2017-07-09 05:40] LABS: ALT (GPT) 59 U/L (12-78); ANION GAP 7 MEQ/L (5-15); AST (GOT) 33 U/L (15-37); BICARBONATE 29.4 MEQ/L (21.0-32.0); BLOOD UREA NITROGEN 70 MG/DL (7-18); CHLORIDE 107 MEQ/L (98-107); GLOMERULAR FILTRATION RATE 36 ML/MIN (>89); MAGNESIUM 2.5 MG/DL (1.5-2.5); POTASSIUM 5.9 MEQ/L (3.5-5.1); SODIUM (NA) 143 MEQ/L (136-145)
[2017-07-09 05:42] LABS: ALKALINE PHOSPHATASE 122 U/L (45-117); TOTAL BILIRUBIN ADULT 0.6 MG/DL (0.2-1.0)
[2017-07-09] MEDS: METOPROLOL TARTRATE 25 MG TAB PO SCH ×4 (06:00→18:00)
[2017-07-09] MEDS: INSULIN NovoLIN REGULAR SUPPLEMENTAL SCALE SQ SCH ×4 (06:00→18:00)
[2017-07-09] MEDS: LABETALOL HCL 100 MG/20 ML VIAL IV PUSH PRN (07:02)
[2017-07-09] MEDS: CHLORHEXIDINE 0.12% (ORAL KIT) 15 ML CUP MT SCH ×2 (08:00→20:00)
[2017-07-09] MEDS: RESP: ALBUTEROL 2.5 MG/IPRATROPIUM 0.5 MG NEB (SCH) NEB ×2 (08:38→20:40)
[2017-07-09] MEDS: ARTIFICIAL TEARS OPTH SOLN 15 ML BTL EACH EYE SCH (09:00)
[2017-07-09] MEDS: PANTOPRAZOLE SODIUM 40 MG VIAL IV SCH (09:00)
[2017-07-09] MEDS: DOCUSATE SODIUM 50 MG/SENNA 8.6 MG TAB PO SCH ×2 (09:00→21:00)
[2017-07-09] MEDS: APIXABAN 5 MG TABLET NG SCH (09:00)
[2017-07-09] MEDS: TOPIRAMATE 100 MG TAB PO SCH (09:00)
[2017-07-09] MEDS: AMIODARONE 200 MG TAB NG SCH (09:00)
[2017-07-09] MEDS: SODIUM CHLORIDE 0.9% FLUSH 10 ML FLUSH IV FLUSH SCH ×2 (09:00→21:00)
--- NOTE | 2017-07-09 15:40 | HHI.PR ---
Subjective Remarks Patient seen in follow-up for respiratory failure, status post cardiac arrest. Discussed with RN. Patient NGT came out. He refused to have a Dobbhoff or any other NGT placed. He is unable to clear his secretions. Patient is nonverbal. He does nod to some questions. However it is evident that he has no insight into his current medical issues. Objective Vitals Vital Signs Date Time Temp Pulse Resp B/P (MAP) Pulse Ox O2 Delivery O2 Flow Rate FiO2 07/09/17 14:00 96 07/09/17 12:00 101 07/09/17 10:00 95 07/09/17 08:39 98 T-piece 6.00 35 07/09/17 08:00 100 07/09/17 07:00 99 T-Piece 30 07/09/17 07:00 96 07/09/17 06:00 122 07/09/17 05:32 26 07/09/17 04:00 99.0 130 25 165/75 (105) 95 07/09/17 04:00 130 07/09/17 03:30 99 T-piece 35 07/09/17 02:00 116 07/09/17 00:00 96 07/09/17 00:00 99.3 96 18 147/96 (113) 98 07/08/17 23:00 100 07/08/17 22:00 150 07/08/17 20:33 99 T-piece 7.00 35 07/08/17 20:00 99.0 108 25 141/72 (95) 98 07/08/17 20:00 108 07/08/17 19:00 92 T-Piece 30 07/08/17 18:00 90 07/08/17 16:00 102 07/08/17 16:00 99.1 102 30 140/61 (87) 99 I/O 07/08/17 07/08/17 07/08/17 07/09/17 07/09/17 07/09/17 06:59 14:59 22:59 06:59 14:59 22:59 Intake Total 927 ml 853 ml 441 ml Output Total 1075 ml 750 ml 400 ml Balance -148 ml 103 ml 41 ml IV Total 293 ml 344 ml 332 ml Tube Feeding 634 ml 509 ml 109 ml Output Urine Total 675 ml 750 ml 400 ml Stool Total 400 ml 0 ml 0 ml Result Diagram: 07/09/17 0501 07/09/17 0507 Objective Remarks GENERAL: Morbidly obese, chronically ill-appearing male CARDIOVASCULAR: Normal rate and regular rhythm without murmurs, gallops, or rubs. RESPIRATORY: Trachea in place. Coarse breath sounds throughout. GASTROINTESTINAL: Morbidly obese. Hypoactive bowel sounds. Abdomen is soft, nontender. MUSCULOSKELETAL: Extremities with 2+ edema in bilateral lower extremities. NEURO: Awake. Nonverbal. PSYCH: Calm Procedures 06/17/17 intubation 06/17/17 CPR 06/17/17 right femoral arterial catheter placement 06/18/17 right IJ central line placement 06/22/17 fiberoptic bronchoscopy 06/24/17 right axillary arterial catheter placement 06/24/17 tracheostomy, bronchoscopy A/P Problem List: (1) Hypotension ICD Code: I95.9 - Hypotension, unspecified Status: Acute (2) Symptomatic bradycardia ICD Code: R00.1 - Bradycardia, unspecified Status: Acute (3) CKD (chronic kidney disease), stage III ICD Code: N18.3 - Chronic kidney disease, stage 3 (moderate) Status: Chronic (4) Chronic systolic CHF (congestive heart failure) ICD Code: I50.22 - Chronic systolic (congestive) heart failure Status: Chronic (5) Atrial fibrillation ICD Code: I48.91 - Unspecified atrial fibrillation Status: Chronic (6) Acute worsening of stage 3 chronic kidney disease ICD Code: N18.3 - Chronic kidney disease, stage 3 (moderate) Status: Acute (7) Thrombocytopenia ICD Code: D69.6 - Thrombocytopenia, unspecified Status: Chronic Assessment and Plan 57-year-old male with complex comorbidities including ischemic heart disease, cardiomyopathy, chronic kidney disease, atrial fibrillation, status post cardiogenic shock and PEA cardiac arrest. Patient has had a prolonged ICU course. He has a trach. Cardiogenic shock status post PEA cardiac arrest/Chronic systolic congestive heart failure: Clinically stable currently. Patient was followed by cardiology : Stable from a cardiology standpoint - EF less than 20%. Continue beta obdulio, FABRICE inhibitor, and diuretics. Atrial fibrillation: Rate controlled. Continue Eliquis. Continue amiodarone, metoprolol. Resp Failure, trach after bone marrow biopsy. Acute hypoxic respiratory failure : Status post mechanical ventilation. Tolerating T piece. Continue bronchodilators, supplemental oxygen. Trach management per pulmonology. - Patient has copious amount of secretions about the trach. Acute kidney injury superimposed on chronic kidney disease, stage III: BUN and creatinine are increasing. Avoid nephrotoxic medications. Appreciate nephrology recommendations. Anderson catheter in place. Seizure disorder: Continue Topamax. Thrombocytopenia: Appreciate hematology recommendations. Status post bone marrow biopsy. - Thrombocytopenia resolved. Morbid obesity, acute mild protein energy malnutrition: Continue took out NG tube. I recommended a Dobbhoff but he adamantly refused. I do not believe he has capacity to make medical decisions. I discussed with his mother. She wants to proceed with any method we can continue to feed him. Consult GI to consider PEG placement. Consult palliative care to assist patient and his mother with goals of care. HCAP/aspiration pneumonia: Sputum culture 06/20 growing Enterobacter. Completed course of cefepime, Flagyl. Now off antibiotics. GI prophylaxis: Protonix. Diabetes mellitus: Monitor Accu-Cheks and cover with sliding scale insulin. DVT prophylaxis: Eliquis. The patient's prognosis is poor given all of his comorbidities. He is less likely to return to a meaningful quality of life. Problem Qualifiers (1) Hypotension: Popeye Dennison MD Jul 09, 2017 15:40
--- NOTE | 2017-07-09 17:05 | PD.CONS ---
HPI History of Present Illness This is a 57 year old male with AF on eliquis, CKD, HTN, DM, nonischemic cardiomyopathy, morbid obesity, chronic thrombocytopenia, who originally presented to hospital with weakness, n/v. He subsequently coded, PEA. He has trach. GI has been consulted for PEG. Hx from EMR and RN, pt nonverbal. PFSH Past Medical History CHF Atrial fibrillation Hypertension [place] - never got his CPAP machine but says he was supposed to a year ago Seizure history - last seizure many years ago Denies AICD or PM, hypertension, DM, CAD, COPD/emphysema/asthma, liver problems , kidney problems, PE, CVA, thyroid problems, cancers, prostate problems . Past Surgical History Cardiac catheter 2016 . Coded Allergies: castor oil (Unverified Allergy, Unknown, THROW UP, 06/18/17) Family History Brother with diabetes Father in his sleep, thinks it may be cardiac related . Social History Tobacco: denies Alcohol: denies Illicit Drugs: denies . Review of Systems ROS noncontributory GI Exam Vitals I&O Vital Signs Date Time Temp Pulse Resp B/P (MAP) Pulse Ox O2 Delivery O2 Flow Rate FiO2 07/09/17 16:00 94 07/09/17 16:00 98.1 99 16 131/79 (96) 95 07/09/17 15:00 97 07/09/17 14:00 96 07/09/17 12:00 101 07/09/17 12:00 98.1 98 24 139/98 (112) 100 07/09/17 10:00 95 07/09/17 08:39 98 T-piece 6.00 35 07/09/17 08:00 100 07/09/17 08:00 98.1 94 27 134/80 (98) 95 07/09/17 07:00 99 T-Piece 30 07/09/17 07:00 96 07/09/17 06:00 122 07/09/17 05:32 26 07/09/17 04:00 99.0 130 25 165/75 (105) 95 07/09/17 04:00 130 07/09/17 03:30 99 T-piece 35 07/09/17 02:00 116 07/09/17 00:00 96 07/09/17 00:00 99.3 96 18 147/96 (113) 98 07/08/17 23:00 100 07/08/17 22:00 150 07/08/17 20:33 99 T-piece 7.00 35 07/08/17 20:00 99.0 108 25 141/72 (95) 98 07/08/17 20:00 108 07/08/17 19:00 92 T-Piece 30 07/08/17 18:00 90 I/O 07/08/17 07/08/17 07/08/17 07/09/17 07/09/17 07/09/17 07:00 15:00 23:00 07:00 15:00 23:00 Intake Total 927 ml 853 ml 441 ml Output Total 1075 ml 750 ml 400 ml Balance -148 ml 103 ml 41 ml IV Total 293 ml 344 ml 332 ml Tube Feeding 634 ml 509 ml 109 ml Output Urine Total 675 ml 750 ml 400 ml Stool Total 400 ml 0 ml 0 ml Imaging Last Impressions Abdomen X-Ray 07/08/17 0000 Signed Impressions: Service Date/Time: Saturday, July 08, 2017 11:20 - CONCLUSION: NG tube as above. Florentino Herrera MD Chest X-Ray 07/07/17 0600 Signed Impressions: Service Date/Time: Friday, July 07, 2017 04:41 - CONCLUSION: 1. Cardiomegaly with increase in hazy airspace disease in the lungs since August 01. Anderson Raymond MD Head CT 06/18/17 0000 Signed Impressions: Service Date/Time: Sunday, June 18, 2017 00:48 - CONCLUSION: Negative exam. No evidence of intracranial hemorrhage. Ronni Capps MD Bone Biopsy CT 06/17/17 0000 Signed Impressions: Service Date/Time: Saturday, June 17, 2017 12:35 - CONCLUSION: Bone marrow aspiration and biopsy complicated by intubation and resuscitation. Pathology is pending. Rell Valentin MD FACR Abdomen Ultrasound 06/16/17 0000 Signed Impressions: Service Date/Time: Friday, June 16, 2017 18:13 - CONCLUSION: Limited sonographic windows due to patient body habitus and bowel gas. Right renal cyst. Visualized portions of the abdomen otherwise within normal limits. Jose Bruno MD Lower Extremity Ultrasound 06/14/17 0000 Signed Impressions: Service Date/Time: Wednesday, June 14, 2017 08:15 - CONCLUSION: Normal examination. Kushal Camacho MD Laboratory Test 07/09/17 05:01 07/09/17 05:07 White Blood Count 12.2 TH/MM3 Red Blood Count 4.40 MIL/MM3 Hemoglobin 12.8 GM/DL Hematocrit 40.2 % Mean Corpuscular Volume 91.5 FL Mean Corpuscular Hemoglobin 29.1 PG Mean Corpuscular Hemoglobin Concent 31.8 % Red Cell Distribution Width 14.4 % Platelet Count 176 TH/MM3 Mean Platelet Volume 11.6 FL Neutrophils (%) (Auto) 74.7 % Lymphocytes (%) (Auto) 9.9 % Monocytes (%) (Auto) 12.4 % Eosinophils (%) (Auto) 2.1 % Basophils (%) (Auto) 0.9 % Neutrophils # (Auto) 9.1 TH/MM3 Lymphocytes # (Auto) 1.2 TH/MM3 Monocytes # (Auto) 1.5 TH/MM3 Eosinophils # (Auto) 0.3 TH/MM3 Basophils # (Auto) 0.1 TH/MM3 CBC Comment DIFF FINAL Differential Comment Blood Urea Nitrogen 70 MG/DL Creatinine 2.31 MG/DL Random Glucose 118 MG/DL Total Protein 8.4 GM/DL Albumin 2.7 GM/DL Calcium Level 9.1 MG/DL Phosphorus Level 3.9 MG/DL Magnesium Level 2.5 MG/DL Alkaline Phosphatase 122 U/L Aspartate Amino Transf (AST/SGOT) 33 U/L Alanine Aminotransferase (ALT/SGPT) 59 U/L Total Bilirubin 0.6 MG/DL Sodium Level 143 MEQ/L Potassium Level 5.9 MEQ/L Chloride Level 107 MEQ/L Carbon Dioxide Level 29.4 MEQ/L Anion Gap 7 MEQ/L Estimat Glomerular Filtration Rate 36 ML/MIN Date/Time Source Procedure Growth Status 06/22/17 17:00 Bronchial Washings Left Lower Lobe Fungal Smear - Final NO FUNGAL ELEMENTS SEEN. Resulted 06/22/17 17:00 Bronchial Washings Left Lower Lobe Fungal Culture - Preliminary NO GROWTH IN 2 WEEKS Resulted Physical Examination HEENT: normocephalic; atraumatic; no jaundice. poor dentition CHEST: coarse CARDIAC: RRR ABDOMEN: Soft,obese, nontender; no hepatosplenomegaly; bowel sounds are present in all four quadrants. EXTREMITIES: No clubbing, cyanosis, or edema. SKIN: Normal; no rash; no jaundice. [employer]: lethargic, does not rouse to exam Assessment and Plan Plan ASSESSMENT - dysphagia - with trach, unable to clear secretions. pulled out NGT and refused another. GI consulted for PEG tube placement. has not had eliquis today , will hold 1 more day and consider peg. d/w primary ok for lovenox. ST following. PLAN - EGD with PEG tube placement - hold eliquis - lovenox - obtain consent - NPO after midnight saturday - supportive care THis pt seen by myself and Dr Landis and this note is written on his behalf Natasha Herbert Jul 09, 2017 17:05
--- NOTE | 2017-07-09 19:19 | HHI.PR ---
Subjective Remarks Awake and in a chair , stable. On a T bar at 40 %. Trach secretions are thick. Will have swallow test. Objective Vital Signs Date Time Temp Pulse Resp B/P (MAP) Pulse Ox O2 Delivery O2 Flow Rate FiO2 07/09/17 18:00 89 07/09/17 16:00 94 07/09/17 16:00 98.1 99 16 131/79 (96) 95 07/09/17 15:00 97 07/09/17 14:00 96 07/09/17 12:00 101 07/09/17 12:00 98.1 98 24 139/98 (112) 100 07/09/17 10:00 95 07/09/17 08:39 98 T-piece 6.00 35 07/09/17 08:00 100 07/09/17 08:00 98.1 94 27 134/80 (98) 95 07/09/17 07:00 99 T-Piece 30 07/09/17 07:00 96 07/09/17 06:00 122 07/09/17 05:32 26 07/09/17 04:00 99.0 130 25 165/75 (105) 95 07/09/17 04:00 130 07/09/17 03:30 99 T-piece 35 07/09/17 02:00 116 07/09/17 00:00 96 07/09/17 00:00 99.3 96 18 147/96 (113) 98 07/08/17 23:00 100 07/08/17 22:00 150 07/08/17 20:33 99 T-piece 7.00 35 07/08/17 20:00 99.0 108 25 141/72 (95) 98 07/08/17 20:00 108 I/O 07/08/17 07/08/17 07/08/17 07/09/17 07/09/17 07/09/17 07:00 15:00 23:00 07:00 15:00 23:00 Intake Total 927 ml 853 ml 441 ml 317 ml Output Total 1075 ml 750 ml 400 ml 850 ml Balance -148 ml 103 ml 41 ml -533 ml IV Total 293 ml 344 ml 332 ml 317 ml Tube Feeding 634 ml 509 ml 109 ml 0 ml Output Urine Total 675 ml 750 ml 400 ml 250 ml Stool Total 400 ml 0 ml 0 ml 600 ml Result Diagram: 07/09/17 0501 07/09/17 0507 Objective Remarks This is a moderately obese elderly man is laying flat on oxygen by T-Bar. HEENT: Head normocephalic. Pupils reactive and enlarged. Throat is mildly clear . Has Carious teeth. Nasal mucosa is clear. Neck: Supple with trach tube in place. No thyromegaly. Chest: Distant breath sounds with occasional crackles at the lung bases.Occ Wheeze Heart: The heart sounds were regular, S1-S2. No murmur or S3. Abdomen: Soft and benign. No masses. No organomegaly or tenderness. Bowel sounds active. Extremities: Mild edema. Reflexes 1+ with no gross motor deficits. Neurologic: Cranial nerves grossly intact.Weak legs Skin: No lesions observed. Assessment and Plan Assessment and Plan IMPRESSION 1. Chronic respiratory failure. 2. Chronic kidney disease stage III. 3. Atrial fibrillation and ASHD. 4. History of diabetes mellitus. 5. Hypertension. 6. S/P Trach Plan: 1. Wean FIO2 to keep sat >92. 2. Mucomyst 2 CC 20 % tid with nebs. 3. Nebs qid , dioneb 4. Cont antibiotics. 5. Swallow eval and Diet. 6. BMP, CXR ,CBC in am 7. Add solumedrol 40 mg bid X 3 days Kurtis Patiño MD Jul 09, 2017 19:19
--- NOTE | 2017-07-09 19:50 | HHI.NPPN ---
Subjective History of Present Illness 57-year-old -[place] male with past medical history of seizure disorder, ischemic heart disease, cardiomyopathy, chronic kidney disease, hypertension, diabetes mellitus, atrial fibrillation who was admitted more than three weeks ago for shortness of breath. I was called to see the patient for elevated BUN and creatinine. The patient has a known history of chronic kidney disease and it seems like his baseline creatinine has been in the range of 1.4 to 1.7. Additional Remarks Patient remain with Trach. and T-Piece, alert, not in distress. Review of Systems Respiratory Lungs: SOB, Cough, Sputum, Wheeze Cardiovascular Cardiac: Edema, GATES Objective Data Data 07/09/17 07/10/17 19:00 07:00 Intake Total 317 ml Output Total 850 ml Balance -533 ml IV Total 317 ml Tube Feeding 0 ml Output Urine Total 250 ml Stool Total 600 ml Vital Signs Date Time Temp Pulse Resp B/P (MAP) Pulse Ox O2 Delivery O2 Flow Rate FiO2 07/09/17 18:00 89 07/09/17 16:00 94 07/09/17 16:00 98.1 99 16 131/79 (96) 95 07/09/17 15:00 97 07/09/17 14:00 96 07/09/17 12:00 101 07/09/17 12:00 98.1 98 24 139/98 (112) 100 07/09/17 10:00 95 07/09/17 08:39 98 T-piece 6.00 35 07/09/17 08:00 100 07/09/17 08:00 98.1 94 27 134/80 (98) 95 07/09/17 07:00 99 T-Piece 30 07/09/17 07:00 96 07/09/17 06:00 122 07/09/17 05:32 26 07/09/17 04:00 99.0 130 25 165/75 (105) 95 07/09/17 04:00 130 07/09/17 03:30 99 T-piece 35 07/09/17 02:00 116 07/09/17 00:00 96 07/09/17 00:00 99.3 96 18 147/96 (113) 98 07/08/17 23:00 100 07/08/17 22:00 150 07/08/17 20:33 99 T-piece 7.00 35 07/08/17 20:00 99.0 108 25 141/72 (95) 98 07/08/17 20:00 108 -: 07/09/17 0501 07/09/17 0507 Physical Exam General Appearance: No Acute Distress, Comfortable Eyes Eye Exam: Pupils Equal Throat Throat Exam: Oral Mucosa [place] & Moist Neck Neck Exam: Neck Supple Pulmonary Resp Exam: Crackles, Rhonchi, Sputum, Decreased Bases, Diminished Breath Sounds Gastrointestinal/Abdomen GI Exam: Soft, Non-Tender, Bowel Sounds Present, Distended Extremeties Extremities Exam: Moderate Edema, Pitting Edema, Dependent Edema Neurologic Neuro Exam: Alert, Awake, Oriented Psychiatric Psych Exam: Appropriate Responses Assessment/Plan Assessment Summary: DENNYS/Acute Renal Failure, CKD Stage III Problem List: (1) Acute kidney injury ICD Codes: N17.9 - Acute kidney failure, unspecified (2) CHF (congestive heart failure) ICD Codes: I50.9 - Heart failure, unspecified Status: Resolved (3) DM (diabetes mellitus) ICD Codes: E11.9 - Type 2 diabetes mellitus without complications Status: Chronic (4) Peripheral edema ICD Codes: R60.9 - Edema, unspecified Status: Acute (5) Atrial fibrillation ICD Codes: I48.91 - Unspecified atrial fibrillation Status: Chronic (6) Atrial fibrillation with RVR ICD Codes: I48.91 - Unspecified atrial fibrillation Status: Resolved (7) CKD (chronic kidney disease), stage III ICD Codes: N18.3 - Chronic kidney disease, stage 3 (moderate) Status: Chronic Plan He has chronic kidney disease and the baseline Creatinine is close to 1.7-1.8. Most likely has underlying Hypertensive or renovascular disease. K increased again, give Kayexalate. Continue to hold diuretics. Urine out put is adequate. Possibly has ATN causing DENNYS. Follow the urine out put and BMP. Avoid Nephrotoxins. Creatinine is almost same. Rajan Hoyt MD Jul 09, 2017 19:50
[2017-07-09] MEDS ORDERED: SODIUM POLYSTYRENE SULFONATE SUSP 15 GM/60 ML CUP PEG ONE (21:00)
[2017-07-09] MEDS ORDERED: SODIUM CHLOR 0.9% 250 ML INJ 250 ML IV ONE (21:00)
[2017-07-09] MEDS: methylPREDNISolone SOD SUCC 40 MG/1 ML VIAL IV SCH (21:07)
[2017-07-09] MEDS: HYOSCYAMINE 0.5 MG/ML AMP IV PUSH SCH ×2 (21:09→23:00)
[2017-07-09] MEDS: ENOXAPARIN SODIUM 40 MG/0.4 ML SYRINGE SQ SCH (21:24)
[2017-07-09] MEDS ORDERED: SODIUM BICARBONATE 8.4% INJ 50 MEQ/50 ML SYR IV ONE (21:30)
[2017-07-10] VITALS (14 sets, daily range): BP systolic 135–158; BP diastolic 57–74; PULSE 64–122; RESP 14–24; TEMP 98–99.5; O2SAT 95–100
[2017-07-10] MEDS: SODIUM CHLOR 0.9% 1000 ML INJ 1,000 ML IV SCH (01:25)
[2017-07-10] MEDS: DILTIAZEM INJ 125 MG in SODIUM CHLORIDE 0.9% INJ 100 ML IV PRN ×3 (01:43→21:29)
[2017-07-10] MEDS: HYOSCYAMINE 0.5 MG/ML AMP IV PUSH SCH ×5 (03:00→18:36)
[2017-07-10] MEDS: RESP: ACETYLCYSTEINE 10% 30 ML NEB NEB SCH ×4 (03:41→20:32)
[2017-07-10] MEDS: RESP: ALBUTEROL 2.5 MG/3 ML NEB (PRN) INH (03:42)
[2017-07-10] MEDS: MORPHINE SULFATE 4 MG/ML INJ IV PUSH PRN (03:54)
[2017-07-10] MEDS: CHLORHEXIDINE GLUCONATE 2 % 1 PACK (2 CLOTHS) TOP SCH (04:00)
[2017-07-10] MEDS: LABETALOL HCL 100 MG/20 ML VIAL IV PUSH PRN (04:41)
[2017-07-10] MEDS: METOCLOPRAMIDE HCL 10 MG/2 ML VIAL IV PUSH SCH ×3 (05:26→21:30)
[2017-07-10] MEDS: METOPROLOL TARTRATE 25 MG TAB PO SCH ×4 (05:26→18:36)
[2017-07-10] MEDS: INSULIN NovoLIN REGULAR SUPPLEMENTAL SCALE SQ SCH ×4 (05:45→18:00)
[2017-07-10 05:49] LABS: HEMATOCRIT 38.2 % (39.0-51.0); MEAN CORPUSCULAR HEMOGLOBIN 29.5 PG (27.0-34.0); MEAN CORPUSCULAR HGB CONC 32.1 % (32.0-36.0); PLATELET COUNT 149 TH/MM3 (150-450); RED BLOOD COUNT 4.15 MIL/MM3 (4.50-5.90); REVIEW FLAG FINAL; WHITE BLOOD COUNT 6.1 TH/MM3 (4.0-11.0)
[2017-07-10 06:18] LABS: POTASSIUM 5.9 MEQ/L (3.5-5.1)
[2017-07-10] MEDS: ENOXAPARIN SODIUM 40 MG/0.4 ML SYRINGE SQ SCH ×2 (06:53→18:36)
[2017-07-10] MEDS: RESP: ALBUTEROL 2.5 MG/IPRATROPIUM 0.5 MG NEB (SCH) NEB ×3 (08:39→20:32)
[2017-07-10] MEDS: AMIODARONE 200 MG TAB NG SCH ×2 (09:00→12:39)
[2017-07-10] MEDS: DOCUSATE SODIUM 50 MG/SENNA 8.6 MG TAB PO SCH ×2 (09:00→21:00)
[2017-07-10] MEDS: ARTIFICIAL TEARS OPTH SOLN 15 ML BTL EACH EYE SCH ×5 (09:00→18:37)
[2017-07-10] MEDS: TOPIRAMATE 100 MG TAB PO SCH ×2 (09:00→12:39)
[2017-07-10] MEDS: PANTOPRAZOLE SODIUM 40 MG VIAL IV SCH (09:28)
[2017-07-10] MEDS: methylPREDNISolone SOD SUCC 40 MG/1 ML VIAL IV SCH ×2 (09:29→21:28)
[2017-07-10] MEDS: SODIUM CHLORIDE 0.9% FLUSH 10 ML FLUSH IV FLUSH SCH ×2 (09:29→21:29)
--- NOTE | 2017-07-10 10:13 | HHI.GIFU ---
Subjective Remarks Resting in bed. Nurse reports that patient was refusing PEG tube placement. However, after explaining to patient rationale, procedure with risks and benefits, he is agreeable. He would like swallow evaluation today to see if he can take anything by mouth. Objective Vitals I&O Vital Signs Date Time Temp Pulse Resp B/P (MAP) Pulse Ox O2 Delivery O2 Flow Rate FiO2 07/10/17 08:39 97 T-piece 6.00 28 07/10/17 06:00 76 07/10/17 04:00 103 07/10/17 04:00 99.5 103 17 155/72 (99) 100 07/10/17 03:59 20 07/10/17 02:00 92 07/10/17 01:43 102 151/76 07/10/17 00:00 100 07/10/17 00:00 99.0 100 22 151/74 (99) 100 07/09/17 23:00 102 07/09/17 22:00 122 07/09/17 20:40 96 Nasal Cannula 6.00 35 07/09/17 20:00 90 07/09/17 20:00 98.5 90 16 48/81 (70) 100 07/09/17 19:00 99 T-Piece 30 07/09/17 18:00 89 07/09/17 16:00 94 07/09/17 16:00 98.1 99 16 131/79 (96) 95 07/09/17 15:00 97 07/09/17 14:00 96 07/09/17 12:00 101 07/09/17 12:00 98.1 98 24 139/98 (112) 100 I/O 07/09/17 07/09/17 07/09/17 07/10/17 07/10/17 07/10/17 06:59 14:59 22:59 06:59 14:59 22:59 Intake Total 441 ml 317 ml 533 ml Output Total 400 ml 850 ml 850 ml Balance 41 ml -533 ml -317 ml IV Total 332 ml 317 ml 533 ml Tube Feeding 109 ml 0 ml Output Urine Total 400 ml 250 ml 850 ml Stool Total 0 ml 600 ml Laboratory Laboratory Tests Test 07/10/17 04:47 White Blood Count 6.1 Red Blood Count 4.15 Hemoglobin 12.3 Hematocrit 38.2 Mean Corpuscular Volume 92.0 Mean Corpuscular Hemoglobin 29.5 Mean Corpuscular Hemoglobin Concent 32.1 Red Cell Distribution Width 14.0 Platelet Count 149 Mean Platelet Volume 13.1 Blood Urea Nitrogen 81 Creatinine 2.38 Random Glucose 150 Calcium Level 9.4 Sodium Level 145 Potassium Level 5.9 Chloride Level 108 Carbon Dioxide Level 29.0 Anion Gap 8 Estimat Glomerular Filtration Rate 34 Date/Time Source Procedure Growth Status 06/22/17 17:00 Bronchial Washings Left Lower Lobe Fungal Smear - Final NO FUNGAL ELEMENTS SEEN. Resulted 06/22/17 17:00 Bronchial Washings Left Lower Lobe Fungal Culture - Preliminary NO GROWTH IN 2 WEEKS Resulted Imaging Last Impressions Abdomen X-Ray 07/08/17 0000 Signed Impressions: Service Date/Time: Saturday, July 08, 2017 11:20 - CONCLUSION: NG tube as above. Florentino Herrera MD Chest X-Ray 07/07/17 0600 Signed Impressions: Service Date/Time: Friday, July 07, 2017 04:41 - CONCLUSION: 1. Cardiomegaly with increase in hazy airspace disease in the lungs since August 01. Anderson Raymond MD Head CT 06/18/17 0000 Signed Impressions: Service Date/Time: Sunday, June 18, 2017 00:48 - CONCLUSION: Negative exam. No evidence of intracranial hemorrhage. Ronni Capps MD Bone Biopsy CT 06/17/17 0000 Signed Impressions: Service Date/Time: Saturday, June 17, 2017 12:35 - CONCLUSION: Bone marrow aspiration and biopsy complicated by intubation and resuscitation. Pathology is pending. Rell Valentin MD FACR Abdomen Ultrasound 06/16/17 0000 Signed Impressions: Service Date/Time: Friday, June 16, 2017 18:13 - CONCLUSION: Limited sonographic windows due to patient body habitus and bowel gas. Right renal cyst. Visualized portions of the abdomen otherwise within normal limits. Jose Bruno MD Lower Extremity Ultrasound 06/14/17 0000 Signed Impressions: Service Date/Time: Wednesday, June 14, 2017 08:15 - CONCLUSION: Normal examination. Kushal Camacho MD Physical Exam HEENT: Normocephalic; atraumatic; no jaundice. CHEST: Resp. even/unlabored, diminished, Tracheostomy- Tbar CARDIAC: RRR ABDOMEN: Soft, obese, nondistended, nontender; no hepatosplenomegaly; bowel sounds are present in all four quadrants. EXTREMITIES: Generalized edema. SKIN: Normal; no rash; no jaundice. REGISTERED RADIOGRAPHER: Lethargic, follows commands Assessment and Plan Plan ASSESSMENT - Dysphagia. S/P tracheostomy. ST following- still with inflated cuff with patient having thick copious secretions- last swallow evaluation deferred. GI consulted for PEG tube placement. Nurse reports that patient was refusing procedure, however after discussing rationale, procedure, risks, benefits and he is okay with proceeding. Eliquis on hold. Lovenox. - Resp. Failure, HCAP, Aspiration PNA. Has tracheostomy, nebs, s/p abx - Symptomatic bradycardia, Chronic CHF. S/P Cardiology evaluation - CKD per renal - Afib. Eliquis on hold, on lovenox PLAN - EGD with PEG tube placement tomorrow - Obtain consents - NPO - Hold Eliquis - Hold lovenox after MN - Cont. ST - hold eliquis - Supportive care - Further recommendations to follow based on results of above - This pt seen by myself and Dr Landis and this note is written on his behalf Isaura Leon Jul 10, 2017 10:13
--- NOTE | 2017-07-10 10:50 | PD.CONS ---
Consult Service Palliative Care . Consult Requested By Dr. Dennison . Primary Care Physician Roxi Gonzales MD . Reason for Consultation a. To assist with evaluation and management of symptoms including: Dyspnea, pain, debility b. To assist medical decision maker(s) with: better understanding of current medical conditions; weighing benefits/burdens of medical treatment options; making medical treatment decisions. HPI History of Present Illness Mr. Bruno is a 57-year-old male with a complex medical history that includes CHF , morbid obesity, coronary artery disease, chronic venous insufficiency, chronic thrombocytopenia, atrial fibrillation, HTN, CH[place], chronic renal insufficiency any history of seizures. He presented to [facility] ED on 09/2017 for evaluation of generalized weakness, nausea and vomiting. The patient reportedly has gone to the dentist the day before and received a prescription for antibiotics for periodontal disease which he had not filled yet. Patient reports dyspnea with exertion stating he has to stop and catch his breath at times. He states he thinks his train director, Dr. Mccormack, told him he needed a pacemaker. Per chart review, the patient had an echocardiogram in 2016 that showed an EF of 25-30%. * Pulse 53, respirations 18, blood pressure 97/58, oxygen saturation 98% on room air, oral temperature 98.5 * WBC: 7.8, hemoglobin 13.2, hematocrit 39.7, platelets 71, neutrophils 62.9% * Sodium: 142, potassium 4.1, chloride 108, carbon dioxide 25.4, glucose 124, calcium 8.4 * BUN: 31, creatinine 2.27, GFR 36 * Total bilirubin: 0.9, AST 23, ALT 38, alkaline phosphatase 81 * Total protein: 6.8, albumin 3.3 * Lipase: 226 * EKG revealed atrial fibrillation with a rate of 53, normal axis, normal intervals, no acute ischemic abnormalities. * Venous ultrasound of the left leg was normal. The patient was admitted to observation secondary to his symptomatic bradycardia. Cardiology was consulted. A cardiac catheterization 2016 revealed 50% LAD stenosis but was otherwise unremarkable. Repeat echocardiogram revealed EF 20%; Dilated LV/RV; Moderate MR/TR; Pulmonary arterial pressures 50-[address] Mccormack states patient is a poor candidate for ICD secondary to his noncompliance and poor dentition which would put him at high risk for device infections. Hematology/oncology was also consulted to to the patient's chronic thrombocytopenia since 2003. A bone marrow biopsy was performed on 06/17/17 was complicated by intubation and resuscitation. While in the CT scan room, the patient went into PEA arrest. ACLS protocol was initiated, total time was approximately 57 minutes. Patient received 3 rounds of epinephrine, 1 amp of bicarbonate and 1 amp of atropine. The patient was intubated and placed on a Yosvany-Synephrine drip. CT of the head on 06/18/17 was negative and showed no evidence of intracranial hemorrhage. A chest x-ray revealed new consolidation in the right medial lower lung. HCAP/aspiration pneumonia: Sputum culture 06/20 growing Enterobacter. Completed course of cefepime, Flagyl. Now off antibiotics. On 06/22/2017: The patient coughed up the ETT into the vocal cord region, unable to deflate balloon. Patient experienced mucus plugging status post airway exchange by anesthesiology. Emergent bronchoscopy was completed with clearance of secretions. Pathology pending. Discussed the need for tracheostomy placement with patient's mother who consented to procedure. He was taken to the OR for tracheostomy secondary to his size and anatomy, procedure completed on 06/24/2017. Patient had a brief episode of PEA arrest after tracheostomy while in the OR. No evidence of anoxic injury. Pulmonology, nephrology and cardiology following. Nephrology was consulted 2016 4 evaluation of elevated BUN and creatinine. Patient has a history of chronic kidney disease likely secondary to hypertensive or diabetic renal disease. His baseline creatinine is in the 1.4-1.7 range, now increased to 2.2. 07/09/17: Patient remains on T-piece. [employer] denied authorization for [facility]. Patient was refusing PEG tube placement. However, after explaining to patient rationale, procedure with risks and benefits with gastroenterology, he is agreeable. He would like swallow evaluation today to see if he can take anything by mouth. Plan for EGD with PEG placement tomorrow. Palliative Care was consulted to assist with symptom management and to discuss with the family the benefits and burdens of her current illnesses and the options regarding future care. Function/Cognitive Trajectory Pending conversation with the patient's family Review of Systems ROS Limitations: Clinical Condition (P[employer] is unable to provide ROS), Altered Mental Status Past Family Social History Coded Allergies: castor oil (Unverified Allergy, Unknown, THROW UP, 06/18/17) Past Medical History CHF CAD Chronic venous insufficiency Chronic thrombocytopenia Atrial fibrillation Hypertension CHINO - never got his CPAP machine but says he was supposed to a year ago Chronic renal insufficiency Seizure history - last seizure many years ago . Past Surgical History Cardiac catheter 2016 . Reported Medications Topiramate 200 Mg Tab 200 Mg PO DAILY Topiramate 200 Mg Tab 200 Mg PO BID Doxazosin (Doxazosin Mesylate) 2 Mg Tab 2 Mg PO DAILY Metoprolol Tartrate 100 Mg Tab 50 Mg PO BID Diltiazem ER 24 HR 240 Mg Caper 240 Mg PO BID Topamax (Topiramate) 100 Mg Tab 200 Mg PO DAILY @ 1200 Enalapril (Enalapril Maleate) 20 Mg Tab 20 Mg PO DAILY . Current Medications Medications (Trade) Dose Ordered Sig/Ashok Route Start Time Stop Time Status Last Admin (Narcan Inj) 0.4 mg UNSCH PRN IV 06/14/17 04:30 (Topamax) 100 mg DAILY PO 06/14/17 11:00 07/08/17 08:22 (Tylenol) 650 mg Q6H PRN PO 06/15/17 21:30 06/30/17 20:37 (Peridex 0.12% Liq) 15 ml BID@08,20 MT 06/17/17 20:00 07/09/17 20:00 Sodium Chloride 1,000 ml @ 20 mls/hr Q24H IV 06/17/17 14:00 07/10/17 01:25 (NS Flush) 2 ml UNSCH PRN IV FLUSH 06/17/17 14:15 (NS Flush) 2 ml BID IV FLUSH 06/17/17 21:00 07/10/17 09:29 (Protonix Inj) 40 mg DAILY IV 06/18/17 09:00 07/10/17 09:28 (Tears Naturale Opth Soln) 1 drop TID EACH EYE 06/17/17 18:00 07/07/17 17:25 (Zofran Inj) 4 mg Q6H PRN IV 06/17/17 14:15 06/22/17 08:22 (Albuterol Neb) 2.5 mg Q2HR NEB PRN INH 06/17/17 14:15 07/10/17 03:42 Miscellaneous Information 1 Q361D XX 06/17/17 14:15 (Chlorhexidine 2% Cloth) 3 pack Taper DAILY@04 TOP 06/18/17 04:00 06/14/18 03:59 07/10/17 04:00 (Chlorhexidine 2% Cloth) 3 pack UNSCH PRN TOP 06/17/17 14:15 (Marilee-Colace) 1 tab BID PO 06/17/17 21:00 07/07/17 21:33 (Milk Of Magnesia Liq) 30 ml Q12H PRN PO 06/17/17 14:15 06/21/17 11:21 (Senokot) 17.2 mg Q12H PRN PO 06/17/17 14:15 (Dulcolax Supp) 10 mg DAILY PRN RECTAL 06/17/17 14:15 (Lactulose Liq) 30 ml DAILY PRN PO 06/17/17 14:15 06/21/17 11:21 (D50w (Vial) Inj) 50 ml UNSCH PRN IV 06/17/17 14:15 (Glucagon Inj) 1 mg UNSCH PRN OTHER 06/17/17 14:15 (NovoLIN R SUPPLEMENTAL SCALE) 1 Q6HR SQ 06/17/17 18:00 06/24/17 19:35 (Trandate Inj) 10 mg Q1HR PRN IV PUSH 06/18/17 08:45 07/10/17 04:41 (Apresoline Inj) 10 mg Q1HR PRN IV PUSH 06/18/17 08:45 07/08/17 22:14 (Nitroglycerin 2% Oint) 2 inch Q6HR PRN TOPICAL 06/18/17 08:45 06/18/17 13:00 (Reglan Inj) 5 mg Q8HR IV PUSH 06/22/17 15:45 07/10/17 05:26 (Lopressor Inj) 2.5 mg Q6H PRN IV PUSH 06/25/17 15:30 07/08/17 02:24 (Cordarone) 200 mg DAILY NG 06/29/17 11:00 07/08/17 08:22 ([place] 5-325 Mg) 1 tab Q6H PRN PO 06/29/17 18:00 07/07/17 23:24 (Morphine Inj) 2 mg Q3H PRN IV PUSH 06/29/17 18:00 06/29/17 18:12 (Morphine Inj) 4 mg Q3H PRN IV PUSH 06/29/17 18:00 07/10/17 03:54 (Bumex Inj) 1 mg BID@09,18 IV PUSH 06/30/17 18:00 Future Hold 07/06/17 18:00 (Vasotec) 10 mg DAILY NG 07/01/17 09:00 Future Hold 07/05/17 08:50 (Eliquis) 5 mg BID NG 07/06/17 12:00 Future Hold 07/08/17 22:14 (Duoneb Neb) 1 ampule Q6HR WHILE AWAKE NEB NEB 07/07/17 08:00 07/10/17 08:39 (Lopressor) 25 mg Q6HR PO 07/07/17 18:00 07/09/17 00:00 (Mucomyst 10% Neb) 2 ml Q6HR NEB NEB 07/07/17 22:00 07/10/17 08:39 Diltiazem HCl 125 mg/Sodium Chloride 125 ml @ 5 mls/hr TITRATE PRN IV 07/08/17 03:30 07/10/17 01:43 (Lovenox Inj) 40 mg Q12H SQ 07/09/17 18:00 Future Hold 07/10/17 06:53 Cefazolin Sodium 1000 mg/Sodium Chloride 100 ml @ 200 mls/hr [employer] IV 07/11/17 06:00 07/14/17 05:59 (Levsin Inj) 0.25 mg Q4H IV PUSH 07/09/17 19:00 07/10/17 09:28 (SoluMEDROL INJ) 40 mg BID IV 07/09/17 21:00 07/12/17 20:59 07/10/17 09:29 . Family History Patient's mother is alive; there is some question if the mother has leukemia. Patient's father in his sleep when he was in his 50s of suspected myocardial infarction. Brother with diabetes. . Substance Use Tobacco: Lifelong smoker Alcohol: Patient denies Prescription med abuse: Patient denies Illicits: Patient denies . Psychosocial History Pending family meeting . Spiritual/Cultural Factors Anabaptism Norma . Documented care wishes: No known documented care wishes have been completed. . Today's verbally stated goals: Patient is unable to verbalize medical treatment goals secondary to tracheostomy ; he currently does not have the insight or judgment related to his clinical condition to artist pain and decision-making. . Family/friends goals: Pending conversation with the patient's family . Ethical and Legal Issues No known ethical or legal issues impacting care at this time. . Physical Exam Vital Signs Date Time Temp Pulse Resp B/P (MAP) Pulse Ox O2 Delivery O2 Flow Rate FiO2 07/10/17 08:39 97 T-piece 6.00 28 07/10/17 06:00 76 07/10/17 04:00 103 07/10/17 04:00 99.5 103 17 155/72 (99) 100 07/10/17 03:59 20 07/10/17 02:00 92 07/10/17 01:43 102 151/76 07/10/17 00:00 100 07/10/17 00:00 99.0 100 22 151/74 (99) 100 07/09/17 23:00 102 07/09/17 22:00 122 07/09/17 20:40 96 Nasal Cannula 6.00 35 07/09/17 20:00 90 07/09/17 20:00 98.5 90 16 48/81 (70) 100 07/09/17 19:00 99 T-Piece 30 07/09/17 18:00 89 07/09/17 16:00 94 07/09/17 16:00 98.1 99 16 131/79 (96) 95 07/09/17 15:00 97 07/09/17 14:00 96 07/09/17 12:00 101 07/09/17 12:00 98.1 98 24 139/98 (112) 100 Exam CONSTITUTIONAL/GENERAL: This is a morbidly obese male patient, in no apparent distress. TUBES/LINES/DRAINS: Tracheostomy, Anderson catheter, PIV x 2 SKIN: No wounds seen anteriorly. Skin temperature appropriate. Not diaphoretic. HEAD: Atraumatic. Normocephalic. EYES: Pupils equal and round and reactive. Extraocular motions intact. No scleral icterus. No injection or drainage. Fundi not examined. ENT: Hearing grossly normal. Nose without bleeding or purulent drainage. Poor dentation NECK: Trachea midline. Supple, nontender. No palpable thyroid enlargement or nodularity. CARDIOVASCULAR: Regular rate and rhythm without murmurs, gallops, or rubs. No JVD. Peripheral pulses symmetric. RESPIRATORY/CHEST: Symmetric, unlabored respirations. Coarse breath sounds GASTROINTESTINAL: Morbidly obese. Hypoactive bowel sounds x 4 quadrants. GENITOURINARY: Without palpable bladder distension. Anderson catheter in place. MUSCULOSKELETAL: Extremities without clubbing or cyanosis. 2+ edema in BLE. LYMPHATICS: No palpable cervical or supraclavicular adenopathy. NEUROLOGICAL: Awake and alert. Attempts to mouth words. PSYCHIATRIC: No obvious anxiety/depression. no apparent hallucinations or other psychotic thought process. . Diagnostic Tests Laboratory Laboratory Tests Test 07/07/17 15:10 07/07/17 15:56 07/08/17 05:45 07/09/17 05:01 Urine Color YELLOW (YELLW/STRAW) Urine Turbidity CLEAR (CLEAR) Urine pH 7.5 (5.0-8.5) Urine Specific [place] 1.024 (1.002-1.035) Urine Protein 30 mg/dL (NEG-TRACE) Urine Glucose (UA) NEG mg/dL (NEG) Urine Ketones NEG mg/dL (NEG) Urine Occult Blood NEG (NEG) Urine Nitrite NEG (NEG) Urine Bilirubin NEG (NEG) Urine Urobilinogen 2.0 MG/DL (LESS THAN Urine Leukocyte Esterase TRACE (NEG) Urine RBC 15 /hpf (0-3) Urine WBC 4 /hpf (0-5) Microscopic Urinalysis Comment CATH-CULT NOT IND Potassium Level 5.5 MEQ/L (3.5-5.1) 5.2 MEQ/L (3.5-5.1) White Blood Count 10.4 TH/MM3 (4.0-11.0) 12.2 TH/MM3 (4.0-11.0) Red Blood Count 4.63 MIL/MM3 (4.50-5.90) 4.40 MIL/MM3 (4.50-5.90) Hemoglobin 12.6 GM/DL (13.0-17.0) 12.8 GM/DL (13.0-17.0) Hematocrit 42.1 % (39.0-51.0) 40.2 % (39.0-51.0) Mean Corpuscular Volume 90.9 FL (80.0-100.0) 91.5 FL (80.0-100.0) Mean Corpuscular Hemoglobin 27.2 PG (27.0-34.0) 29.1 PG (27.0-34.0) Mean Corpuscular Hemoglobin Concent 30.0 % (32.0-36.0) 31.8 % (32.0-36.0) Red Cell Distribution Width 14.6 % (11.6-17.2) 14.4 % (11.6-17.2) Platelet Count 144 TH/MM3 (150-450) 176 TH/MM3 (150-450) Mean Platelet Volume 11.8 FL (7.0-11.0) 11.6 FL (7.0-11.0) Blood Urea Nitrogen 68 MG/DL (7-18) Creatinine 2.23 MG/DL (0.60-1.30) Random Glucose 123 MG/DL (74-106) Calcium Level 9.1 MG/DL (8.5-10.1) Sodium Level 140 MEQ/L (136-145) Chloride Level 104 MEQ/L (98-107) Carbon Dioxide Level 30.0 MEQ/L (21.0-32.0) Anion Gap 6 MEQ/L (5-15) Estimat Glomerular Filtration Rate 37 ML/MIN (>89) Neutrophils (%) (Auto) 74.7 % (16.0-70.0) Lymphocytes (%) (Auto) 9.9 % (9.0-44.0) Monocytes (%) (Auto) 12.4 % (0.0-8.0) Eosinophils (%) (Auto) 2.1 % (0.0-4.0) Basophils (%) (Auto) 0.9 % (0.0-2.0) Neutrophils # (Auto) 9.1 TH/MM3 (1.8-7.7) Lymphocytes # (Auto) 1.2 TH/MM3 (1.0-4.8) Monocytes # (Auto) 1.5 TH/MM3 (0-0.9) Eosinophils # (Auto) 0.3 TH/MM3 (0-0.4) Basophils # (Auto) 0.1 TH/MM3 (0-0.2) CBC Comment DIFF FINAL Differential Comment Test 07/09/17 05:07 07/10/17 04:47 Blood Urea Nitrogen 70 MG/DL (7-18) 81 MG/DL (7-18) Creatinine 2.31 MG/DL (0.60-1.30) 2.38 MG/DL (0.60-1.30) Random Glucose 118 MG/DL (74-106) 150 MG/DL (74-106) Total Protein 8.4 GM/DL (6.4-8.2) Albumin 2.7 GM/DL (3.4-5.0) Calcium Level 9.1 MG/DL (8.5-10.1) 9.4 MG/DL (8.5-10.1) Phosphorus Level 3.9 MG/DL (2.5-4.9) Magnesium Level 2.5 MG/DL (1.5-2.5) Alkaline Phosphatase 122 U/L (45-117) Aspartate Amino Transf (AST/SGOT) 33 U/L (15-37) Alanine Aminotransferase (ALT/SGPT) 59 U/L (12-78) Total Bilirubin 0.6 MG/DL (0.2-1.0) Sodium Level 143 MEQ/L (136-145) 145 MEQ/L (136-145) Potassium Level 5.9 MEQ/L (3.5-5.1) 5.9 MEQ/L (3.5-5.1) Chloride Level 107 MEQ/L (98-107) 108 MEQ/L (98-107) Carbon Dioxide Level 29.4 MEQ/L (21.0-32.0) 29.0 MEQ/L (21.0-32.0) Anion Gap 7 MEQ/L (5-15) 8 MEQ/L (5-15) Estimat Glomerular Filtration Rate 36 ML/MIN (>89) 34 ML/MIN (>89) White Blood Count 6.1 TH/MM3 (4.0-11.0) Red Blood Count 4.15 MIL/MM3 (4.50-5.90) Hemoglobin 12.3 GM/DL (13.0-17.0) Hematocrit 38.2 % (39.0-51.0) Mean Corpuscular Volume 92.0 FL (80.0-100.0) Mean Corpuscular Hemoglobin 29.5 PG (27.0-34.0) Mean Corpuscular Hemoglobin Concent 32.1 % (32.0-36.0) Red Cell Distribution Width 14.0 % (11.6-17.2) Platelet Count 149 TH/MM3 (150-450) Mean Platelet Volume 13.1 FL (7.0-11.0) . Result Diagram: 07/10/17 0447 07/10/17 0447 Imaging Last 72 hours Impressions Abdomen X-Ray 07/08/17 0000 Signed Impressions: Service Date/Time: Saturday, July 08, 2017 11:20 - CONCLUSION: NG tube as above. Florentino Herrera MD . Procedures 06/17/17: No pulmonary resuscitation with intubation 06/17/17: Right IJ CVL 06/17/17: Right femoral arterial line placement 06/22/17: Bronchoscopy 06/24/17: Right axillary arterial catheter placement 06/24/17: Tracheostomy with bronchoscopy Assessment and Plan Disease Oriented Problem List: (1) Renal insufficiency (2) Symptomatic bradycardia (3) Chronic systolic CHF (congestive heart failure) (4) Thrombocytopenia (5) DM (diabetes mellitus) Symptom Scale: (1) Pain (2) Dyspnea (3) Debility Pertinent Non-Medical Issues Psychosocial: Spiritual: Anabaptism Norma Legal: Ethical issues impacting care: Important Contacts Dahlia Uribna, mother: [phone] Felipe Salazar, friend: [phone] . Prognosis Patient is morbidly obese with a complex medical history. Status post PEA arrest 2. EF <20%. Given the patient's multiple comorbid conditions and reported noncompliance, he is at high risk for ongoing setbacks and complications. His overall prognosis is poor, and it is unlikely that he will return to his previous functioning level/quality of life. . Code Status: Full Code Plan * FULL CODE * Aggressive goals pending conversation with patient's family * Discussed with Dr. Dennison and case management (Addie) * Patient was refusing PEG tube placement. However, after explaining to patient rationale, procedure with risks and benefits with gastroenterology, he is agreeable. He would like swallow evaluation today to see if he can take anything by mouth. Plan for EGD with PEG placement tomorrow. * Attempted to contact patient's mother, message left on voicemail. Awaiting return phone call. * Symptom management-debility: Patient will require SNF placement upon discharge. [employer] denied authorization for [facility]. Josué at [facility] plans to request a peer to peer appeal. Case management will continue to assist with discharge planning. * Symptom management-pain: Patient grimacing on exam. When asked if he is painful he nods and points to his bilateral lower extremities. Nurse notified. Current orders for [place] (5-325mg) PO q6 hours PRN and Morphine 2mg-4mg IV q3 hours PRN. 24-hour dosing: Morphine 4 mg IV 3. Palliative care will continue to monitor PRN requirements and make recommendations as indicated. * Palliative care will continue to follow this patient throughout his hospitalization to establish trust, assist with symptom management and clarification of medical treatment goals. . Thank you for the opportunity to participate in the care of Mr. Bruno. Attestation To help prompt me to consider important information that might be impacting today's encounter and assessment, information from prior notes written by myself or my colleagues may have been "brought forward" into today's note. My signature on this note, however, is an attestation that I personally performed the exam, history, and/or decision-making noted today, and, unless otherwise indicated, the interactions with patient, family, and staff as well as the review of records all occurred today. I also attest that the listed assessment and stated plan reflect my best clinical judgment today based on the combination of historical information, prior notes, and today's exam/ interactions. When time spent is documented, it refers only to time spent today by the signer, or if indicated, combined time spent today by collaborating physician/nurse practitioner. . Gloria Bundy Jul 10, 2017 10:50
[2017-07-10] MEDS: CHLORHEXIDINE 0.12% (ORAL KIT) 15 ML CUP MT SCH ×2 (11:43→20:00)
--- NOTE | 2017-07-10 15:19 | HHI.PR ---
Subjective Remarks Patient is more awake today. He passed a swallow eval and is tolerating soft food. ELBA RN. Objective Vitals Vital Signs Date Time Temp Pulse Resp B/P (MAP) Pulse Ox O2 Delivery O2 Flow Rate FiO2 07/10/17 12:31 127 171/86 07/10/17 12:31 127 171/86 07/10/17 08:39 97 T-piece 6.00 28 07/10/17 06:00 76 07/10/17 04:00 103 07/10/17 04:00 99.5 103 17 155/72 (99) 100 07/10/17 03:59 20 07/10/17 02:00 92 07/10/17 01:43 102 151/76 07/10/17 00:00 100 07/10/17 00:00 99.0 100 22 151/74 (99) 100 07/09/17 23:00 102 07/09/17 22:00 122 07/09/17 20:40 96 Nasal Cannula 6.00 35 07/09/17 20:00 90 07/09/17 20:00 98.5 90 16 48/81 (70) 100 07/09/17 19:00 99 T-Piece 30 07/09/17 18:00 89 07/09/17 16:00 94 07/09/17 16:00 98.1 99 16 131/79 (96) 95 I/O 07/09/17 07/09/17 07/09/17 07/10/17 07/10/17 07/10/17 07:00 15:00 23:00 07:00 15:00 23:00 Intake Total 441 ml 317 ml 533 ml 100 ml Output Total 400 ml 850 ml 850 ml Balance 41 ml -533 ml -317 ml 100 ml IV Total 332 ml 317 ml 533 ml 100 ml Tube Feeding 109 ml 0 ml Output Urine Total 400 ml 250 ml 850 ml Stool Total 0 ml 600 ml Result Diagram: 07/10/1744607/10/17446 Objective Remarks GENERAL: Morbidly obese, chronically ill-appearing male CARDIOVASCULAR: Normal rate and regular rhythm without murmurs, gallops, or rubs. RESPIRATORY: Trachea in place. Coarse breath sounds throughout. GASTROINTESTINAL: Morbidly obese. Hypoactive bowel sounds. Abdomen is soft, nontender. MUSCULOSKELETAL: Extremities with 2+ edema in bilateral lower extremities. NEURO: Awake. Alert. Not able to talk due to Trach. PSYCH: Calm Procedures 06/17/17 intubation 06/17/17 CPR 06/17/17 right femoral arterial catheter placement 06/18/17 right IJ central line placement 06/22/17 fiberoptic bronchoscopy 06/24/17 right axillary arterial catheter placement 06/24/17 tracheostomy, bronchoscopy A/P Problem List: (1) Hypotension ICD Code: I95.9 - Hypotension, unspecified Status: Acute (2) Symptomatic bradycardia ICD Code: R00.1 - Bradycardia, unspecified Status: Acute (3) CKD (chronic kidney disease), stage III ICD Code: N18.3 - Chronic kidney disease, stage 3 (moderate) Status: Chronic (4) Chronic systolic CHF (congestive heart failure) ICD Code: I50.22 - Chronic systolic (congestive) heart failure Status: Chronic (5) Atrial fibrillation ICD Code: I48.91 - Unspecified atrial fibrillation Status: Chronic (6) Acute worsening of stage 3 chronic kidney disease ICD Code: N18.3 - Chronic kidney disease, stage 3 (moderate) Status: Acute (7) Thrombocytopenia ICD Code: D69.6 - Thrombocytopenia, unspecified Status: Chronic Assessment and Plan 57-year-old male with complex comorbidities including ischemic heart disease, cardiomyopathy, chronic kidney disease, atrial fibrillation, status post cardiogenic shock and PEA cardiac arrest. Patient has had a prolonged ICU course. He has a trach. Cardiogenic shock status post PEA cardiac arrest/Chronic systolic congestive heart failure: Clinically stable currently. Patient was followed by cardiology : Stable from a cardiology standpoint - EF less than 20%. Continue beta obdulio, FABRICE inhibitor, and diuretics. Atrial fibrillation: Rate controlled. Eliquis on hold for possible procedure. Plan to resume tomorrow. Continue Lovenox. Continue amiodarone, metoprolol. Resp Failure, trach after bone marrow biopsy. Acute hypoxic respiratory failure : Status post mechanical ventilation. Tolerating T piece. Continue bronchodilators, supplemental oxygen. Trach management per pulmonology. - Patient has copious amount of secretions about the trach. Acute kidney injury superimposed on chronic kidney disease, stage III: BUN and creatinine are increasing. Avoid nephrotoxic medications. Appreciate nephrology recommendations. Anderson catheter in place. Seizure disorder: Continue Topamax. Thrombocytopenia: Appreciate hematology recommendations. Status post bone marrow biopsy. - Thrombocytopenia resolved. Morbid obesity, acute mild protein energy malnutrition: Patient took out NG tube. PEG considered but he started to eat today. Will hold off on PEG and monitor his intake. HCAP/aspiration pneumonia: Sputum culture 06/20 growing Enterobacter. Completed course of cefepime, Flagyl. Now off antibiotics. GI prophylaxis: Protonix. Diabetes mellitus: Monitor Accu-Cheks and cover with sliding scale insulin. DVT prophylaxis: Eliquis. The patient's prognosis is poor given all of his comorbidities. He is less likely to return to a meaningful quality of life. Appreciate Palliative carre following. Problem Qualifiers (1) Hypotension: Popeye Dennison MD Jul 10, 2017 15:19
--- NOTE | 2017-07-10 16:56 | HHI.NPPN ---
Subjective History of Present Illness 57-year-old -Chinese male with past medical history of seizure disorder, ischemic heart disease, cardiomyopathy, chronic kidney disease, hypertension, diabetes mellitus, atrial fibrillation who was admitted more than three weeks ago for shortness of breath. I was called to see the patient for elevated BUN and creatinine. The patient has a known history of chronic kidney disease and it seems like his baseline creatinine has been in the range of 1.4 to 1.7. Additional Remarks Patient remain with Trach. and T-Piece, has SOB off and on. Review of Systems Respiratory Lungs: SOB, Cough, Sputum, Wheeze Cardiovascular Cardiac: Edema, GATES Objective Data Data 07/10/17 07/11/17 19:00 07:00 Intake Total 100 ml Balance 100 ml IV Total 100 ml Vital Signs Date Time Temp Pulse Resp B/P (MAP) Pulse Ox O2 Delivery O2 Flow Rate FiO2 07/10/17 16:00 107 07/10/17 16:00 98.0 122 24 135/57 (83) 100 07/10/17 14:00 114 07/10/17 12:31 127 171/86 07/10/17 12:31 127 171/86 07/10/17 12:00 98.0 65 21 158/74 (102) 95 07/10/17 12:00 111 07/10/17 10:00 64 07/10/17 08:39 97 T-piece 6.00 28 07/10/17 08:00 98.2 93 14 158/70 (99) 99 07/10/17 08:00 99 T-Piece 5.00 28 07/10/17 08:00 84 07/10/17 08:00 93 07/10/17 06:00 76 07/10/17 04:00 103 07/10/17 04:00 99.5 103 17 155/72 (99) 100 07/10/17 03:59 20 07/10/17 02:00 92 07/10/17 01:43 102 151/76 07/10/17 00:00 100 07/10/17 00:00 99.0 100 22 151/74 (99) 100 07/09/17 23:00 102 07/09/17 22:00 122 07/09/17 20:40 96 Nasal Cannula 6.00 35 07/09/17 20:00 90 07/09/17 20:00 98.5 90 16 48/81 (70) 100 07/09/17 19:00 99 T-Piece 30 07/09/17 18:00 89 -: 07/10/17 0447 07/10/17 0447 Physical Exam General Appearance: No Acute Distress, Comfortable Eyes Eye Exam: Pupils Equal Throat Throat Exam: Oral Mucosa [place] & Moist Neck Neck Exam: Neck Supple Pulmonary Resp Exam: Crackles, Rhonchi, Sputum, Decreased Bases, Diminished Breath Sounds Gastrointestinal/Abdomen GI Exam: Soft, Non-Tender, Bowel Sounds Present, Distended Extremeties Extremities Exam: Moderate Edema, Pitting Edema, Dependent Edema Neurologic Neuro Exam: Alert, Awake, Oriented Psychiatric Psych Exam: Appropriate Responses Assessment/Plan Assessment Summary: DENNYS/Acute Renal Failure, CKD Stage III Problem List: (1) Acute kidney injury ICD Codes: N17.9 - Acute kidney failure, unspecified (2) CHF (congestive heart failure) ICD Codes: I50.9 - Heart failure, unspecified Status: Resolved (3) DM (diabetes mellitus) ICD Codes: E11.9 - Type 2 diabetes mellitus without complications Status: Chronic (4) Peripheral edema ICD Codes: R60.9 - Edema, unspecified Status: Acute (5) Atrial fibrillation ICD Codes: I48.91 - Unspecified atrial fibrillation Status: Chronic (6) Atrial fibrillation with RVR ICD Codes: I48.91 - Unspecified atrial fibrillation Status: Resolved (7) CKD (chronic kidney disease), stage III ICD Codes: N18.3 - Chronic kidney disease, stage 3 (moderate) Status: Chronic Plan He has chronic kidney disease and the baseline Creatinine is close to 1.7-1.8. Most likely has underlying Hypertensive or renovascular disease. K increased again, give Kayexalate. Continue to hold diuretics. Urine out put is adequate. Possibly has ATN causing DENNYS. Follow the urine out put and BMP. Avoid Nephrotoxins. Creatinine is almost same. K is still elevated, started some oral diet, will try Kayexalate if can take it. Rajan Hoyt MD Jul 10, 2017 16:56
--- NOTE | 2017-07-10 19:53 | HHI.PR ---
Subjective Remarks Awake and in a chair , stable. On a T bar at 40 %. Trach secretions are better..Passed swallow test. Will take a pureed diet. Objective Vital Signs Date Time Temp Pulse Resp B/P (MAP) Pulse Ox O2 Delivery O2 Flow Rate FiO2 07/10/17 18:00 109 07/10/17 16:00 107 07/10/17 16:00 98.0 122 24 135/57 (83) 100 07/10/17 14:00 114 07/10/17 12:31 127 171/86 07/10/17 12:31 127 171/86 07/10/17 12:00 98.0 65 21 158/74 (102) 95 07/10/17 12:00 111 07/10/17 10:00 64 07/10/17 08:39 97 T-piece 6.00 28 07/10/17 08:00 98.2 93 14 158/70 (99) 99 07/10/17 08:00 99 T-Piece 5.00 28 07/10/17 08:00 84 07/10/17 08:00 93 07/10/17 06:00 76 07/10/17 04:00 103 07/10/17 04:00 99.5 103 17 155/72 (99) 100 07/10/17 03:59 20 07/10/17 02:00 92 07/10/17 01:43 102 151/76 07/10/17 00:00 100 07/10/17 00:00 99.0 100 22 151/74 (99) 100 07/09/17 23:00 102 07/09/17 22:00 122 07/09/17 20:40 96 Nasal Cannula 6.00 35 07/09/17 20:00 90 07/09/17 20:00 98.5 90 16 48/81 (70) 100 I/O 07/09/17 07/09/17 07/09/17 07/10/17 07/10/17 07/10/17 07:00 15:00 23:00 07:00 15:00 23:00 Intake Total 441 ml 317 ml 533 ml 100 ml 605 ml Output Total 400 ml 850 ml 850 ml 550 ml Balance 41 ml -533 ml -317 ml 100 ml 55 ml Intake Oral 220 ml IV Total 332 ml 317 ml 533 ml 100 ml 385 ml Tube Feeding 109 ml 0 ml Output Urine Total 400 ml 250 ml 850 ml 550 ml Stool Total 0 ml 600 ml Result Diagram: 07/10/1744607/10/17446 Objective Remarks This is a moderately obese elderly man is laying flat on oxygen by T-Bar. HEENT: Head normocephalic. Pupils reactive and enlarged. Throat is mildly clear . Has Carious teeth. Nasal mucosa is clear. Neck: Supple with trach tube in place. No thyromegaly. Chest: Distant breath sounds with occasional crackles at the lung bases.Occ Wheeze Heart: The heart sounds were regular, S1-S2. No murmur or S3. Abdomen: Soft and benign. No masses. No organomegaly or tenderness. Bowel sounds active. Extremities: Mild edema. Reflexes 1+ with no gross motor deficits. Neurologic: .Weak legs. he is oriented and talking. Skin: No lesions observed. Assessment and Plan Assessment and Plan IMPRESSION 1. Chronic respiratory failure. 2. Chronic kidney disease stage III. 3. Atrial fibrillation and ASHD. 4. History of diabetes mellitus. 5. Hypertension. 6. S/P Trach Plan: 1. Wean FIO2 to keep sat >92. 2.Cont Mucomyst 2 CC 20 % tid with nebs. 3. Nebs qid , dioneb 4. Cont antibiotics. 5. Deflate trach cuff and feed with soft diet. 6. BMP, ,CBC in am 7. cont solumedrol 40 mg bid X 3 days Kurtis Patiño MD Jul 10, 2017 19:53
[2017-07-10] MEDS ORDERED: HYOSCYAMINE 0.5 MG/ML AMP IV PUSH PRN (23:00)
[2017-07-11] VITALS (15 sets, daily range): BP systolic 126–156; BP diastolic 63–98; PULSE 72–98; RESP 16–35; TEMP 98.4–99.1; O2SAT 95–99
[2017-07-11] MEDS: SODIUM CHLOR 0.9% 1000 ML INJ 1,000 ML IV SCH (01:25)
[2017-07-11] MEDS: RESP: ACETYLCYSTEINE 10% 30 ML NEB NEB SCH ×5 (01:27→21:26)
[2017-07-11] MEDS: RESP: ALBUTEROL 2.5 MG/3 ML NEB (PRN) INH ×3 (01:27→19:47)
[2017-07-11] MEDS: METOPROLOL TARTRATE 25 MG TAB PO SCH ×4 (01:35→19:10)
[2017-07-11] MEDS: CHLORHEXIDINE GLUCONATE 2 % 1 PACK (2 CLOTHS) TOP SCH (04:00)
--- NOTE | 2017-07-11 04:45 | RADRPT ---
EXAM DATE/TIME: 07/11/2017 03:42 [facility] COMPARISON: CHEST SINGLE AP, July 07, 2017, 4:41. INDICATIONS : Short of breath. MEDICAL HISTORY : None. A-fib. Hypercholesterolemia. Hypertension. Congestive heart failure . SURGICAL HISTORY : None. ENCOUNTER: Subsequent ACUITY: 3 weeks PAIN SCORE: Non-responsive. LOCATION: Bilateral chest FINDINGS: Stable tracheostomy. Cardiomegaly with indistinct central pulmonary vasculature. Mild interstitial pr ominence with improved aeration in the lower lung zones bilaterally. Remainder of the exam is unchang ed. CONCLUSION: 1. Cardiomegaly with mild positive fluid balance. 2. Improved bilateral lower zone airspace disease. Marco Booker MD on July 11, 2017 at 4:41 Board Certified Radiologist. This report was verified electronically.
[2017-07-11 05:17] LABS: HEMATOCRIT 36.4 % (39.0-51.0); MEAN CELL VOLUME 90.1 FL (80.0-100.0); MEAN CORPUSCULAR HEMOGLOBIN 29.7 PG (27.0-34.0); PLATELET COUNT 178 TH/MM3 (150-450); RED BLOOD COUNT 4.04 MIL/MM3 (4.50-5.90); RED CELL DISTRIBUTION WIDTH 13.6 % (11.6-17.2); REVIEW FLAG FINAL; WHITE BLOOD COUNT 11.7 TH/MM3 (4.0-11.0)
[2017-07-11 05:28] LABS: BICARBONATE 26.9 MEQ/L (21.0-32.0); POTASSIUM 4.8 MEQ/L (3.5-5.1)
[2017-07-11] MEDS: INSULIN NovoLIN REGULAR SUPPLEMENTAL SCALE SQ SCH ×4 (05:44→18:00)
[2017-07-11] MEDS: METOCLOPRAMIDE HCL 10 MG/2 ML VIAL IV PUSH SCH ×3 (05:47→21:08)
[2017-07-11] MEDS: DILTIAZEM INJ 125 MG in SODIUM CHLORIDE 0.9% INJ 100 ML IV PRN ×2 (07:03→15:54)
[2017-07-11] MEDS: RESP: ALBUTEROL 2.5 MG/IPRATROPIUM 0.5 MG NEB (SCH) NEB (07:43)
[2017-07-11] MEDS: DOCUSATE SODIUM 50 MG/SENNA 8.6 MG TAB PO SCH ×2 (09:00→21:07)
[2017-07-11] MEDS: ARTIFICIAL TEARS OPTH SOLN 15 ML BTL EACH EYE SCH ×4 (09:00→18:00)
[2017-07-11] MEDS: SODIUM CHLORIDE 0.9% FLUSH 10 ML FLUSH IV FLUSH SCH ×2 (09:00→21:00)
[2017-07-11] MEDS: CHLORHEXIDINE 0.12% (ORAL KIT) 15 ML CUP MT SCH ×2 (10:58→20:00)
[2017-07-11] MEDS: methylPREDNISolone SOD SUCC 40 MG/1 ML VIAL IV SCH ×2 (10:58→21:07)
[2017-07-11] MEDS: PANTOPRAZOLE SODIUM 40 MG VIAL IV SCH (10:58)
[2017-07-11] MEDS: TOPIRAMATE 100 MG TAB PO SCH (10:58)
[2017-07-11] MEDS: AMIODARONE 200 MG TAB NG SCH (10:58)
--- NOTE | 2017-07-11 12:23 | HHI.NPPN ---
Subjective History of Present Illness 57-year-old -Cuban male with past medical history of seizure disorder, ischemic heart disease, cardiomyopathy, chronic kidney disease, hypertension, diabetes mellitus, atrial fibrillation who was admitted more than three weeks ago for shortness of breath. I was called to see the patient for elevated BUN and creatinine. The patient has a known history of chronic kidney disease and it seems like his baseline creatinine has been in the range of 1.4 to 1.7. Additional Remarks Patient remain with Trach. and T-Piece, breathing is better, not in distress. Review of Systems Respiratory Lungs: SOB, Cough, Sputum, Wheeze Cardiovascular Cardiac: Edema, GATES Objective Data Data Vital Signs Date Time Temp Pulse Resp B/P (MAP) Pulse Ox O2 Delivery O2 Flow Rate FiO2 07/11/17 07:45 99 T-piece 28 07/11/17 07:03 82 132/74 07/11/17 06:00 82 07/11/17 04:00 93 07/11/17 04:00 99.1 93 18 152/98 (116) 98 07/11/17 02:00 96 07/11/17 00:00 94 07/11/17 00:00 98.8 94 16 156/82 (106) 99 07/10/17 22:00 94 07/10/17 21:29 100 144/66 07/10/17 20:32 96 T-piece 5.00 28 07/10/17 20:00 98.0 90 20 142/73 (96) 100 07/10/17 20:00 90 07/10/17 19:00 96 T-Piece 5.00 28 07/10/17 18:00 109 07/10/17 16:00 107 07/10/17 16:00 98.0 122 24 135/57 (83) 100 07/10/17 14:00 114 07/10/17 12:31 127 171/86 07/10/17 12:31 127 171/86 -: 07/11/17 0423 07/11/17 0423 Physical Exam General Appearance: No Acute Distress, Comfortable Eyes Eye Exam: Pupils Equal Throat Throat Exam: Oral Mucosa [place] & Moist Neck Neck Exam: Neck Supple Pulmonary Resp Exam: Crackles, Rhonchi, Sputum, Decreased Bases, Diminished Breath Sounds Gastrointestinal/Abdomen GI Exam: Soft, Non-Tender, Bowel Sounds Present, Distended Extremeties Extremities Exam: Moderate Edema, Pitting Edema, Dependent Edema Neurologic Neuro Exam: Alert, Awake, Oriented Psychiatric Psych Exam: Appropriate Responses Assessment/Plan Assessment Summary: DENNYS/Acute Renal Failure, CKD Stage III Problem List: (1) Acute kidney injury ICD Codes: N17.9 - Acute kidney failure, unspecified (2) CHF (congestive heart failure) ICD Codes: I50.9 - Heart failure, unspecified Status: Resolved (3) DM (diabetes mellitus) ICD Codes: E11.9 - Type 2 diabetes mellitus without complications Status: Chronic (4) Peripheral edema ICD Codes: R60.9 - Edema, unspecified Status: Acute (5) Atrial fibrillation ICD Codes: I48.91 - Unspecified atrial fibrillation Status: Chronic (6) Atrial fibrillation with RVR ICD Codes: I48.91 - Unspecified atrial fibrillation Status: Resolved (7) CKD (chronic kidney disease), stage III ICD Codes: N18.3 - Chronic kidney disease, stage 3 (moderate) Status: Chronic Plan He has chronic kidney disease and the baseline Creatinine is close to 1.7-1.8. Most likely has underlying Hypertensive or renovascular disease. K increased again, give Kayexalate. Continue to hold diuretics. Urine out put is adequate. Possibly has ATN causing DNENYS. Follow the urine out put and BMP. Avoid Nephrotoxins. Creatinine increase to 2.4, K is normal, off diuretics. Avoid Nephrotoxins and follow the BMP. Rajan Hoyt MD Jul 11, 2017 12:23
--- NOTE | 2017-07-11 13:12 | HHI.HCPN ---
Reason for visit a. To assist with evaluation and management of symptoms including: Dyspnea, pain, debility b. To assist medical decision maker(s) with: better understanding of current medical conditions; weighing benefits/burdens of medical treatment options; making medical treatment decisions. Subjective/Interval History Mr. Bruno is a 57-year-old male with a complex medical history that includes CHF , morbid obesity, coronary artery disease, chronic venous insufficiency, chronic thrombocytopenia, atrial fibrillation, HTN, CHINO, chronic renal insufficiency any history of seizures. He presented to [facility] ED on 09/2017 for evaluation of generalized weakness, nausea and vomiting. The patient reportedly has gone to the dentist the day before and received a prescription for antibiotics for periodontal disease which he had not filled yet. Patient reports dyspnea with exertion stating he has to stop and catch his breath at times. He states he thinks his psychiatric nurse practitioner, Dr. Mccormack, told him he needed a pacemaker. Per chart review, the patient had an echocardiogram in 2016 that showed an EF of 25-30%. * Pulse 53, respirations 18, blood pressure 97/58, oxygen saturation 98% on room air, oral temperature 98.5 * WBC: 7.8, hemoglobin 13.2, hematocrit 39.7, platelets 71, neutrophils 62.9% * Sodium: 142, potassium 4.1, chloride 108, carbon dioxide 25.4, glucose 124, calcium 8.4 * BUN: 31, creatinine 2.27, GFR 36 * Total bilirubin: 0.9, AST 23, ALT 38, alkaline phosphatase 81 * Total protein: 6.8, albumin 3.3 * Lipase: 226 * EKG revealed atrial fibrillation with a rate of 53, normal axis, normal intervals, no acute ischemic abnormalities. * Venous ultrasound of the left leg was normal. The patient was admitted to observation secondary to his symptomatic bradycardia. Cardiology was consulted. A cardiac catheterization 2016 revealed 50% LAD stenosis but was otherwise unremarkable. Repeat echocardiogram revealed EF 20%; Dilated LV/RV; Moderate MR/TR; Pulmonary arterial pressures 50-[address] Mccormack states patient is a poor candidate for ICD secondary to his noncompliance and poor dentition which would put him at high risk for device infections. Hematology/oncology was also consulted to to the patient's chronic thrombocytopenia since 2003. A bone marrow biopsy was performed on 06/17/17 was complicated by intubation and resuscitation. While in the CT scan room, the patient went into PEA arrest. ACLS protocol was initiated, total time was approximately 57 minutes. Patient received 3 rounds of epinephrine, 1 amp of bicarbonate and 1 amp of atropine. The patient was intubated and placed on a Yosvany-Synephrine drip. CT of the head on 06/18/17 was negative and showed no evidence of intracranial hemorrhage. A chest x-ray revealed new consolidation in the right medial lower lung. HCAP/aspiration pneumonia: Sputum culture 06/20 growing Enterobacter. Completed course of cefepime, Flagyl. Now off antibiotics. On 06/22/2017: The patient coughed up the ETT into the vocal cord region, unable to deflate balloon. Patient experienced mucus plugging status post airway exchange by anesthesiology. Emergent bronchoscopy was completed with clearance of secretions. Pathology pending. Discussed the need for tracheostomy placement with patient's mother who consented to procedure. He was taken to the OR for tracheostomy secondary to his size and anatomy, procedure completed on 06/24/2017. Patient had a brief episode of PEA arrest after tracheostomy while in the OR. No evidence of anoxic injury. Pulmonology, nephrology and cardiology following. Nephrology was consulted 2016 4 evaluation of elevated BUN and creatinine. Patient has a history of chronic kidney disease likely secondary to hypertensive or diabetic renal disease. His baseline creatinine is in the 1.4-1.7 range, now increased to 2.2. 07/09/17: Patient remains on T-piece. [employer] denied authorization for [facility]. Patient was refusing PEG tube placement. However, after explaining to patient rationale, procedure with risks and benefits with gastroenterology, he is agreeable. He would like swallow evaluation today to see if he can take anything by mouth. Plan for EGD with PEG placement tomorrow. Palliative Care was consulted to assist with symptom management and to discuss with the family the benefits and burdens of her current illnesses and the options regarding future care. Advance Directives Advance Directive Specifics Documented care wishes: No known documented care wishes have been completed. . Objective Vital Signs Date Time Temp Pulse Resp B/P (MAP) Pulse Ox O2 Delivery O2 Flow Rate FiO2 07/11/17 07:45 99 T-piece 28 07/11/17 07:03 82 132/74 07/11/17 06:00 82 07/11/17 04:00 93 07/11/17 04:00 99.1 93 18 152/98 (116) 98 07/11/17 02:00 96 07/11/17 00:00 94 07/11/17 00:00 98.8 94 16 156/82 (106) 99 07/10/17 22:00 94 07/10/17 21:29 100 144/66 07/10/17 20:32 96 T-piece 5.00 28 07/10/17 20:00 98.0 90 20 142/73 (96) 100 07/10/17 20:00 90 07/10/17 19:00 96 T-Piece 5.00 28 07/10/17 18:00 109 07/10/17 16:00 107 07/10/17 16:00 98.0 122 24 135/57 (83) 100 07/10/17 14:00 114 Intake & Output 07/11/17 07/11/17 06:59 18:59 Intake Total 652 ml Output Total 650 ml Balance 2 ml Intake Oral 240 ml IV Total 412 ml Output Urine Total 650 ml Physical Exam CONSTITUTIONAL/GENERAL: This is a morbidly obese male patient, in no apparent distress. TUBES/LINES/DRAINS: Tracheostomy, Anderson catheter, PIV x 2 SKIN: No wounds seen anteriorly. Skin temperature appropriate. Not diaphoretic. HEAD: Atraumatic. Normocephalic. EYES: Pupils equal and round and reactive. Extraocular motions intact. No scleral icterus. No injection or drainage. Fundi not examined. ENT: Hearing grossly normal. Nose without bleeding or purulent drainage. Poor dentation NECK: Trachea midline. Supple, nontender. No palpable thyroid enlargement or nodularity. CARDIOVASCULAR: Regular rate and rhythm without murmurs, gallops, or rubs. No JVD. Peripheral pulses symmetric. RESPIRATORY/CHEST: Symmetric, unlabored respirations. Coarse breath sounds GASTROINTESTINAL: Morbidly obese. Hypoactive bowel sounds x 4 quadrants. GENITOURINARY: Without palpable bladder distension. Anderson catheter in place. MUSCULOSKELETAL: Extremities without clubbing or cyanosis. 2+ edema in BLE. LYMPHATICS: No palpable cervical or supraclavicular adenopathy. NEUROLOGICAL: Awake and alert. Attempts to mouth words. PSYCHIATRIC: No obvious anxiety/depression. no apparent hallucinations or other psychotic thought process. . Diagnostic Tests Laboratory Laboratory Tests Test 07/09/17 05:01 07/09/17 05:07 07/10/17 04:47 07/11/17 04:23 White Blood Count 12.2 TH/MM3 (4.0-11.0) 6.1 TH/MM3 (4.0-11.0) 11.7 TH/MM3 (4.0-11.0) Red Blood Count 4.40 MIL/MM3 (4.50-5.90) 4.15 MIL/MM3 (4.50-5.90) 4.04 MIL/MM3 (4.50-5.90) Hemoglobin 12.8 GM/DL (13.0-17.0) 12.3 GM/DL (13.0-17.0) 12.0 GM/DL (13.0-17.0) Hematocrit 40.2 % (39.0-51.0) 38.2 % (39.0-51.0) 36.4 % (39.0-51.0) Mean Corpuscular Volume 91.5 FL (80.0-100.0) 92.0 FL (80.0-100.0) 90.1 FL (80.0-100.0) Mean Corpuscular Hemoglobin 29.1 PG (27.0-34.0) 29.5 PG (27.0-34.0) 29.7 PG (27.0-34.0) Mean Corpuscular Hemoglobin Concent 31.8 % (32.0-36.0) 32.1 % (32.0-36.0) 33.0 % (32.0-36.0) Red Cell Distribution Width 14.4 % (11.6-17.2) 14.0 % (11.6-17.2) 13.6 % (11.6-17.2) Platelet Count 176 TH/MM3 (150-450) 149 TH/MM3 (150-450) 178 TH/MM3 (150-450) Mean Platelet Volume 11.6 FL (7.0-11.0) 13.1 FL (7.0-11.0) 12.0 FL (7.0-11.0) Neutrophils (%) (Auto) 74.7 % (16.0-70.0) Lymphocytes (%) (Auto) 9.9 % (9.0-44.0) Monocytes (%) (Auto) 12.4 % (0.0-8.0) Eosinophils (%) (Auto) 2.1 % (0.0-4.0) Basophils (%) (Auto) 0.9 % (0.0-2.0) Neutrophils # (Auto) 9.1 TH/MM3 (1.8-7.7) Lymphocytes # (Auto) 1.2 TH/MM3 (1.0-4.8) Monocytes # (Auto) 1.5 TH/MM3 (0-0.9) Eosinophils # (Auto) 0.3 TH/MM3 (0-0.4) Basophils # (Auto) 0.1 TH/MM3 (0-0.2) CBC Comment DIFF FINAL Differential Comment Blood Urea Nitrogen 70 MG/DL (7-18) 81 MG/DL (7-18) 86 MG/DL (7-18) Creatinine 2.31 MG/DL (0.60-1.30) 2.38 MG/DL (0.60-1.30) 2.45 MG/DL (0.60-1.30) Random Glucose 118 MG/DL (74-106) 150 MG/DL (74-106) 198 MG/DL (74-106) Total Protein 8.4 GM/DL (6.4-8.2) Albumin 2.7 GM/DL (3.4-5.0) Calcium Level 9.1 MG/DL (8.5-10.1) 9.4 MG/DL (8.5-10.1) 9.4 MG/DL (8.5-10.1) Phosphorus Level 3.9 MG/DL (2.5-4.9) Magnesium Level 2.5 MG/DL (1.5-2.5) Alkaline Phosphatase 122 U/L (45-117) Aspartate Amino Transf (AST/SGOT) 33 U/L (15-37) Alanine Aminotransferase (ALT/SGPT) 59 U/L (12-78) Total Bilirubin 0.6 MG/DL (0.2-1.0) Sodium Level 143 MEQ/L (136-145) 145 MEQ/L (136-145) 141 MEQ/L (136-145) Potassium Level 5.9 MEQ/L (3.5-5.1) 5.9 MEQ/L (3.5-5.1) 4.8 MEQ/L (3.5-5.1) Chloride Level 107 MEQ/L (98-107) 108 MEQ/L (98-107) 107 MEQ/L (98-107) Carbon Dioxide Level 29.4 MEQ/L (21.0-32.0) 29.0 MEQ/L (21.0-32.0) 26.9 MEQ/L (21.0-32.0) Anion Gap 7 MEQ/L (5-15) 8 MEQ/L (5-15) 7 MEQ/L (5-15) Estimat Glomerular Filtration Rate 36 ML/MIN (>89) 34 ML/MIN (>89) 33 ML/MIN (>89) Result Diagram: 07/11/1742207/11/17 0423 Procedures 06/17/17: No pulmonary resuscitation with intubation 06/17/17: Right IJ CVL 06/17/17: Right femoral arterial line placement 06/22/17: Bronchoscopy 06/24/17: Right axillary arterial catheter placement 06/24/17: Tracheostomy with bronchoscopy Assessment and Plan Disease Oriented Problem List: (1) Renal insufficiency (2) Symptomatic bradycardia (3) Chronic systolic CHF (congestive heart failure) (4) Thrombocytopenia (5) DM (diabetes mellitus) Symptom Scale: (1) Pain (2) Dyspnea (3) Debility Pertinent Non-Medical Issues Psychosocial: Spiritual: Voodoo Norma Legal: Ethical issues impacting care: Important Contacts Dahlia Urbina, mother: [phone] Felipe Salazar, friend: [phone] . Prognosis Patient is morbidly obese with a complex medical history. Status post PEA arrest 2. EF <20%. Given the patient's multiple comorbid conditions and reported noncompliance, he is at high risk for ongoing setbacks and complications. His overall prognosis is poor, and it is unlikely that he will return to his previous functioning level/quality of life. . Code Status: Full Code Plan * FULL CODE * Aggressive goals pending conversation with patient's family * Discussed with Dr. Dennison and case management (Addie) * Patient was refusing PEG tube placement. However, after explaining to patient rationale, procedure with risks and benefits with gastroenterology, he is agreeable. He would like swallow evaluation today to see if he can take anything by mouth. Plan for EGD with PEG placement tomorrow. * Attempted to contact patient's mother, message left on voicemail. Awaiting return phone call. * Symptom management-debility: Patient will require SNF placement upon discharge. [employer] denied authorization for [facility]. Josué at [facility] plans to request a peer to peer appeal. Case management will continue to assist with discharge planning. * Symptom management-pain: Patient grimacing on exam. When asked if he is painful he nods and points to his bilateral lower extremities. Nurse notified. Current orders for [place] (5-325mg) PO q6 hours PRN and Morphine 2mg-4mg IV q3 hours PRN. 24-hour dosing: Morphine 4 mg IV 3. Palliative care will continue to monitor PRN requirements and make recommendations as indicated. * Palliative care will continue to follow this patient throughout his hospitalization to establish trust, assist with symptom management and clarification of medical treatment goals. . Gloria Bundy Jul 11, 2017 13:12
--- NOTE | 2017-07-11 13:15 | HHI.PR ---
Subjective Remarks Awake and , stable. On a T bar at 30 %. Trach secretions are clearing..Passed swallow test. On a pureed diet. Objective Vital Signs Date Time Temp Pulse Resp B/P (MAP) Pulse Ox O2 Delivery O2 Flow Rate FiO2 07/11/17 07:45 99 T-piece 28 07/11/17 07:03 82 132/74 07/11/17 06:00 82 07/11/17 04:00 93 07/11/17 04:00 99.1 93 18 152/98 (116) 98 07/11/17 02:00 96 07/11/17 00:00 94 07/11/17 00:00 98.8 94 16 156/82 (106) 99 07/10/17 22:00 94 07/10/17 21:29 100 144/66 07/10/17 20:32 96 T-piece 5.00 28 07/10/17 20:00 98.0 90 20 142/73 (96) 100 07/10/17 20:00 90 07/10/17 19:00 96 T-Piece 5.00 28 07/10/17 18:00 109 07/10/17 16:00 107 07/10/17 16:00 98.0 122 24 135/57 (83) 100 07/10/17 14:00 114 I/O 07/10/17 07/10/17 07/10/17 07/11/17 07/11/17 07/11/17 07:00 15:00 23:00 07:00 15:00 23:00 Intake Total 533 ml 100 ml 605 ml 652 ml Output Total 850 ml 550 ml 650 ml Balance -317 ml 100 ml 55 ml 2 ml Intake Oral 220 ml 240 ml IV Total 533 ml 100 ml 385 ml 412 ml Output Urine Total 850 ml 550 ml 650 ml Result Diagram: 07/11/17 04207/11/17 0423 Objective Remarks This is a moderately obese elderly man is on oxygen by T-Bar. HEENT: Head normocephalic. Pupils reactive and enlarged. Throat is mildly clear . Has Carious teeth. Nasal mucosa is clear. Neck: Supple with trach tube in place. No thyromegaly. Chest: Distant breath sounds with occasional crackles at the lung bases.Occ Wheeze Heart: The heart sounds were regular, S1-S2. No murmur or S3. Abdomen: Soft and benign. No masses. No organomegaly or tenderness. Bowel sounds active. Extremities: Mild edema. Reflexes 1+ with no gross motor deficits. Neurologic: Weak legs. he is oriented and talking. Skin: No lesions observed. Assessment and Plan Assessment and Plan IMPRESSION 1. Chronic respiratory failure. 2. Chronic kidney disease stage III. 3. Atrial fibrillation and ASHD. 4. History of diabetes mellitus. 5. Hypertension. 6. S/P Trach Plan: 1. Wean FIO2 to keep sat >92. 2.Cont Mucomyst 2 CC 20 % tid with nebs. 3. Nebs qid , dioneb 4. Cont antibiotics. 5. Deflate trach cuff and feed with soft diet. 6. CXR in am 7. cont solumedrol 40 mg bid X 2 days Kurtis Patiño MD Jul 11, 2017 13:15
--- NOTE | 2017-07-11 13:58 | HHI.HCPN ---
Reason for visit a. To assist with evaluation and management of symptoms including: Dyspnea, pain, debility, dysphasia b. To assist medical decision maker(s) with: better understanding of current medical conditions; weighing benefits/burdens of medical treatment options; making medical treatment decisions. Subjective/Interval History Mr. Bruno is a 57-year-old male who was admitted to [facility] on 06/14/17 with symptomatic bradycardia. Status post PEA arrest 2 and tracheostomy placement. Patient's oxygen saturation is in the high 90s on 30% FiO2 via T-piece. He denies shortness of breath. Follow-up chest x-ray this morning showed cardiomegaly with mild positive fluid balance and improved bilateral lower zone airspace disease. A shunt remains on Solu-Medrol 40 mg IV twice a day, Mucomyst 10% nebulizer every 6 hours, albuterol nebulizers every 2 hours PRN SOB/wheezing. Patient denies pain. Current orders for [place] (5-325mg) PO q6 hours PRN and Morphine 2mg-4mg IV q3 hours PRN. Patient has required no PRN medication in the past 24 hours. Palliative care will continue to monitor PRN requirements and make recommendations as indicated. Previous plan for EGD with PEG tube placement today, however patient passed swallow evaluation yesterday. Currently tolerating soft diet with nectar consistency thickened liquids. Gastroenterology continues to follow. Advance Directives Advance Directive Specifics Documented care wishes: No known documented care wishes have been completed. . Objective Vital Signs Date Time Temp Pulse Resp B/P (MAP) Pulse Ox O2 Delivery O2 Flow Rate FiO2 07/11/17 07:45 99 T-piece 28 07/11/17 07:03 82 132/74 07/11/17 06:00 82 07/11/17 04:00 93 07/11/17 04:00 99.1 93 18 152/98 (116) 98 07/11/17 02:00 96 07/11/17 00:00 94 07/11/17 00:00 98.8 94 16 156/82 (106) 99 07/10/17 22:00 94 07/10/17 21:29 100 144/66 07/10/17 20:32 96 T-piece 5.00 28 07/10/17 20:00 98.0 90 20 142/73 (96) 100 07/10/17 20:00 90 07/10/17 19:00 96 T-Piece 5.00 28 07/10/17 18:00 109 07/10/17 16:00 107 07/10/17 16:00 98.0 122 24 135/57 (83) 100 07/10/17 14:00 114 Intake & Output 07/11/17 07/11/17 07:00 19:00 Intake Total 652 ml Output Total 650 ml Balance 2 ml Intake Oral 240 ml IV Total 412 ml Output Urine Total 650 ml Physical Exam CONSTITUTIONAL/GENERAL: This is a morbidly obese male patient, in no apparent distress. TUBES/LINES/DRAINS: Tracheostomy, Anderson catheter, PIV x 2 SKIN: No wounds seen anteriorly. Skin temperature appropriate. Not diaphoretic. HEAD: Atraumatic. Normocephalic. EYES: Pupils equal and round and reactive. Extraocular motions intact. No scleral icterus. No injection or drainage. Fundi not examined. ENT: Hearing grossly normal. Nose without bleeding or purulent drainage. Poor dentation NECK: Trachea midline. Supple, nontender. No palpable thyroid enlargement or nodularity. CARDIOVASCULAR: Regular rate and rhythm without murmurs, gallops, or rubs. No JVD. Peripheral pulses symmetric. RESPIRATORY/CHEST: Symmetric, unlabored respirations. Coarse breath sounds GASTROINTESTINAL: Morbidly obese. Hypoactive bowel sounds x 4 quadrants. GENITOURINARY: Without palpable bladder distension. Anderson catheter in place. MUSCULOSKELETAL: Extremities without clubbing or cyanosis. 2+ edema in BLE. LYMPHATICS: No palpable cervical or supraclavicular adenopathy. NEUROLOGICAL: Awake and alert. Attempts to mouth words. PSYCHIATRIC: No obvious anxiety/depression. no apparent hallucinations or other psychotic thought process. . Diagnostic Tests Laboratory Laboratory Tests Test 07/09/17 05:01 07/09/17 05:07 07/10/17 04:47 07/11/17 04:23 White Blood Count 12.2 TH/MM3 (4.0-11.0) 6.1 TH/MM3 (4.0-11.0) 11.7 TH/MM3 (4.0-11.0) Red Blood Count 4.40 MIL/MM3 (4.50-5.90) 4.15 MIL/MM3 (4.50-5.90) 4.04 MIL/MM3 (4.50-5.90) Hemoglobin 12.8 GM/DL (13.0-17.0) 12.3 GM/DL (13.0-17.0) 12.0 GM/DL (13.0-17.0) Hematocrit 40.2 % (39.0-51.0) 38.2 % (39.0-51.0) 36.4 % (39.0-51.0) Mean Corpuscular Volume 91.5 FL (80.0-100.0) 92.0 FL (80.0-100.0) 90.1 FL (80.0-100.0) Mean Corpuscular Hemoglobin 29.1 PG (27.0-34.0) 29.5 PG (27.0-34.0) 29.7 PG (27.0-34.0) Mean Corpuscular Hemoglobin Concent 31.8 % (32.0-36.0) 32.1 % (32.0-36.0) 33.0 % (32.0-36.0) Red Cell Distribution Width 14.4 % (11.6-17.2) 14.0 % (11.6-17.2) 13.6 % (11.6-17.2) Platelet Count 176 TH/MM3 (150-450) 149 TH/MM3 (150-450) 178 TH/MM3 (150-450) Mean Platelet Volume 11.6 FL (7.0-11.0) 13.1 FL (7.0-11.0) 12.0 FL (7.0-11.0) Neutrophils (%) (Auto) 74.7 % (16.0-70.0) Lymphocytes (%) (Auto) 9.9 % (9.0-44.0) Monocytes (%) (Auto) 12.4 % (0.0-8.0) Eosinophils (%) (Auto) 2.1 % (0.0-4.0) Basophils (%) (Auto) 0.9 % (0.0-2.0) Neutrophils # (Auto) 9.1 TH/MM3 (1.8-7.7) Lymphocytes # (Auto) 1.2 TH/MM3 (1.0-4.8) Monocytes # (Auto) 1.5 TH/MM3 (0-0.9) Eosinophils # (Auto) 0.3 TH/MM3 (0-0.4) Basophils # (Auto) 0.1 TH/MM3 (0-0.2) CBC Comment DIFF FINAL Differential Comment Blood Urea Nitrogen 70 MG/DL (7-18) 81 MG/DL (7-18) 86 MG/DL (7-18) Creatinine 2.31 MG/DL (0.60-1.30) 2.38 MG/DL (0.60-1.30) 2.45 MG/DL (0.60-1.30) Random Glucose 118 MG/DL (74-106) 150 MG/DL (74-106) 198 MG/DL (74-106) Total Protein 8.4 GM/DL (6.4-8.2) Albumin 2.7 GM/DL (3.4-5.0) Calcium Level 9.1 MG/DL (8.5-10.1) 9.4 MG/DL (8.5-10.1) 9.4 MG/DL (8.5-10.1) Phosphorus Level 3.9 MG/DL (2.5-4.9) Magnesium Level 2.5 MG/DL (1.5-2.5) Alkaline Phosphatase 122 U/L (45-117) Aspartate Amino Transf (AST/SGOT) 33 U/L (15-37) Alanine Aminotransferase (ALT/SGPT) 59 U/L (12-78) Total Bilirubin 0.6 MG/DL (0.2-1.0) Sodium Level 143 MEQ/L (136-145) 145 MEQ/L (136-145) 141 MEQ/L (136-145) Potassium Level 5.9 MEQ/L (3.5-5.1) 5.9 MEQ/L (3.5-5.1) 4.8 MEQ/L (3.5-5.1) Chloride Level 107 MEQ/L (98-107) 108 MEQ/L (98-107) 107 MEQ/L (98-107) Carbon Dioxide Level 29.4 MEQ/L (21.0-32.0) 29.0 MEQ/L (21.0-32.0) 26.9 MEQ/L (21.0-32.0) Anion Gap 7 MEQ/L (5-15) 8 MEQ/L (5-15) 7 MEQ/L (5-15) Estimat Glomerular Filtration Rate 36 ML/MIN (>89) 34 ML/MIN (>89) 33 ML/MIN (>89) Result Diagram: 07/11/17 0423 07/11/17 0423 Procedures 06/17/17: No pulmonary resuscitation with intubation 06/17/17: Right IJ CVL 06/17/17: Right femoral arterial line placement 06/22/17: Bronchoscopy 06/24/17: Right axillary arterial catheter placement 06/24/17: Tracheostomy with bronchoscopy Assessment and Plan Disease Oriented Problem List: (1) Renal insufficiency (2) Symptomatic bradycardia (3) Chronic systolic CHF (congestive heart failure) (4) Thrombocytopenia (5) DM (diabetes mellitus) Symptom Scale: (1) Pain (2) Dyspnea (3) Debility Pertinent Non-Medical Issues Psychosocial: Spiritual: Adventism Norma Legal: Ethical issues impacting care: Important Contacts Dahlia Urbina, mother: [phone] Felipe Salazar, friend: [phone] . Prognosis Patient is morbidly obese with a complex medical history. Status post PEA arrest 2. EF <20%. Given the patient's multiple comorbid conditions and reported noncompliance, he is at high risk for ongoing setbacks and complications. His overall prognosis is poor, and it is unlikely that he will return to his previous functioning level/quality of life. . Code Status: Full Code Plan * FULL CODE * Aggressive goals pending conversation with patient's family * Discussed with case management (Addie) * Attempted to contact the patient's mother 2 today. Messages were left on her voicemail. Palliative care awaiting return phone call. * Attempted to have conversations with the patient about medical treatment goals and designation of health care decision makers. Unable to discuss in detail due to patient's impaired speech secondary to tracheostomy and suspected lack of insight and judgment related to multiple comorbid conditions. * Symptom management-debility: Patient will require SNF placement upon discharge. [employer] denied authorization for [facility]. Josué at [facility] plans to request a peer to peer appeal. Case management will continue to assist with discharge planning. * Symptom management- dysphagia: Previous plan for EGD with PEG tube placement today, however patient passed swallow evaluation yesterday. Currently tolerating soft diet with nectar consistency thickened liquids. Gastroenterology continues to follow. * Symptom management-pain: Patient denies pain. Current orders for [place] (5- 325mg) PO q6 hours PRN and Morphine 2mg-4mg IV q3 hours PRN. Patient has required no PRN medication in the past 24 hours. Palliative care will continue to monitor PRN requirements and make recommendations as indicated. Palliative care will continue to monitor PRN requirements and make recommendations as indicated. * Palliative care will continue to follow this patient throughout his hospitalization to establish trust, assist with symptom management and clarification of medical treatment goals. . Attestation To help prompt me to consider important information that might be impacting today's encounter and assessment, information from prior notes written by myself or my colleagues may have been "brought forward" into today's note. My signature on this note, however, is an attestation that I personally performed the exam, history, and/or decision-making noted today, and, unless otherwise indicated, the interactions with patient, family, and staff as well as the review of records all occurred today. I also attest that the listed assessment and stated plan reflect my best clinical judgment today based on the combination of historical information, prior notes, and today's exam/ interactions. When time spent is documented, it refers only to time spent today by the signer, or if indicated, combined time spent today by collaborating physician/nurse practitioner. . Gloria Bundy Jul 11, 2017 13:58
--- NOTE | 2017-07-11 14:16 | HHI.PR ---
Subjective Remarks Patient is more alert and awake today. He can mouth some words. States he he is uncomfortable in the chair. Discussed with RN. Objective Vitals Vital Signs Date Time Temp Pulse Resp B/P (MAP) Pulse Ox O2 Delivery O2 Flow Rate FiO2 07/11/17 12:00 93 07/11/17 12:00 98.7 93 26 126/88 (101) 97 07/11/17 10:00 92 07/11/17 08:00 81 07/11/17 08:00 98.9 81 35 145/67 (93) 99 07/11/17 07:45 99 T-piece 28 07/11/17 07:03 82 132/74 07/11/17 07:00 98 T-Piece 5.00 28 07/11/17 06:00 82 07/11/17 04:00 93 07/11/17 04:00 99.1 93 18 152/98 (116) 98 07/11/17 02:00 96 07/11/17 00:00 94 07/11/17 00:00 98.8 94 16 156/82 (106) 99 07/10/17 22:00 94 07/10/17 21:29 100 144/66 07/10/17 20:32 96 T-piece 5.00 28 07/10/17 20:00 98.0 90 20 142/73 (96) 100 07/10/17 20:00 90 07/10/17 19:00 96 T-Piece 5.00 28 07/10/17 18:00 109 07/10/17 16:00 107 07/10/17 16:00 98.0 122 24 135/57 (83) 100 I/O 07/10/17 07/10/17 07/10/17 07/11/17 07/11/17 07/11/17 07:00 15:00 23:00 07:00 15:00 23:00 Intake Total 533 ml 100 ml 605 ml 652 ml Output Total 850 ml 550 ml 650 ml Balance -317 ml 100 ml 55 ml 2 ml Intake Oral 220 ml 240 ml IV Total 533 ml 100 ml 385 ml 412 ml Output Urine Total 850 ml 550 ml 650 ml Result Diagram: 07/11/1742207/11/17422 Objective Remarks GENERAL: Morbidly obese, chronically ill-appearing male CARDIOVASCULAR: Normal rate and regular rhythm without murmurs, gallops, or rubs. RESPIRATORY: Trachea in place. Coarse breath sounds throughout. GASTROINTESTINAL: Morbidly obese. Hypoactive bowel sounds. Abdomen is soft, nontender. MUSCULOSKELETAL: Extremities with 2+ edema in bilateral lower extremities. NEURO: Awake. Alert. Not able to talk due to trach but can mild some. PSYCH: Calm Procedures 06/17/17 intubation 06/17/17 CPR 06/17/17 right femoral arterial catheter placement 06/18/17 right IJ central line placement 06/22/17 fiberoptic bronchoscopy 06/24/17 right axillary arterial catheter placement 06/24/17 tracheostomy, bronchoscopy A/P Problem List: (1) Hypotension ICD Code: I95.9 - Hypotension, unspecified Status: Acute (2) Symptomatic bradycardia ICD Code: R00.1 - Bradycardia, unspecified Status: Acute (3) CKD (chronic kidney disease), stage III ICD Code: N18.3 - Chronic kidney disease, stage 3 (moderate) Status: Chronic (4) Chronic systolic CHF (congestive heart failure) ICD Code: I50.22 - Chronic systolic (congestive) heart failure Status: Chronic (5) Atrial fibrillation ICD Code: I48.91 - Unspecified atrial fibrillation Status: Chronic (6) Acute worsening of stage 3 chronic kidney disease ICD Code: N18.3 - Chronic kidney disease, stage 3 (moderate) Status: Acute (7) Thrombocytopenia ICD Code: D69.6 - Thrombocytopenia, unspecified Status: Chronic Assessment and Plan 57-year-old male with complex comorbidities including ischemic heart disease, cardiomyopathy, chronic kidney disease, atrial fibrillation, status post cardiogenic shock and PEA cardiac arrest. Patient has had a prolonged ICU course. He has a trach. Cardiogenic shock status post PEA cardiac arrest/Chronic systolic congestive heart failure: Clinically stable currently. Patient was followed by cardiology : Stable from a cardiology standpoint - EF less than 20%. Continue beta obdulio, FABRICE inhibitor, and diuretics. Atrial fibrillation: Rate controlled. Eliquis on hold for possible procedure. Plan to resume tomorrow. Continue Lovenox. Continue amiodarone, metoprolol. Resp Failure, trach after bone marrow biopsy. Acute hypoxic respiratory failure : Status post mechanical ventilation. Tolerating T piece. Continue bronchodilators, supplemental oxygen. Trach management per pulmonology. - Patient has copious amount of secretions about the trach. Acute kidney injury superimposed on chronic kidney disease, stage III: BUN and creatinine are increasing. Avoid nephrotoxic medications. Appreciate nephrology recommendations. Anderson catheter in place. Seizure disorder: Continue Topamax. Thrombocytopenia: Appreciate hematology recommendations. Status post bone marrow biopsy. - Thrombocytopenia resolved. Morbid obesity, acute mild protein energy malnutrition: Patient took out NG tube. He is eating better. Continue diet spur speech as tolerated. HCAP/aspiration pneumonia: Sputum culture 06/20 growing Enterobacter. Completed course of cefepime, Flagyl. Now off antibiotics. GI prophylaxis: Protonix. Diabetes mellitus: Monitor Accu-Cheks and cover with sliding scale insulin. DVT prophylaxis: Eliquis. The patient is improving. He may be a candidate for [facility] rehabilitation in a few days. Problem Qualifiers (1) Hypotension: Popeye Dennison MD Jul 11, 2017 14:16
--- NOTE | 2017-07-11 16:57 | HHI.GIFU ---
Subjective Remarks Resting in bed. Passed swallow evaluation--> soft diet with nectar thickened liquids. PEG tube cancelled. (Isaura Leon) Objective Vitals I&O Vital Signs Date Time Temp Pulse Resp B/P (MAP) Pulse Ox O2 Delivery O2 Flow Rate FiO2 07/11/17 15:54 88 139/96 07/11/17 12:00 93 07/11/17 12:00 98.7 93 26 126/88 (101) 97 07/11/17 10:00 92 07/11/17 08:00 81 07/11/17 08:00 98.9 81 35 145/67 (93) 99 07/11/17 07:45 99 T-piece 28 07/11/17 07:03 82 132/74 07/11/17 07:00 98 T-Piece 5.00 28 07/11/17 06:00 82 07/11/17 04:00 93 07/11/17 04:00 99.1 93 18 152/98 (116) 98 07/11/17 02:00 96 07/11/17 00:00 94 07/11/17 00:00 98.8 94 16 156/82 (106) 99 07/10/17 22:00 94 07/10/17 21:29 100 144/66 07/10/17 20:32 96 T-piece 5.00 28 07/10/17 20:00 98.0 90 20 142/73 (96) 100 07/10/17 20:00 90 07/10/17 19:00 96 T-Piece 5.00 28 07/10/17 18:00 109 I/O 07/10/17 07/10/17 07/10/17 07/11/17 07/11/17 07/11/17 07:00 15:00 23:00 07:00 15:00 23:00 Intake Total 533 ml 100 ml 605 ml 652 ml Output Total 850 ml 550 ml 650 ml Balance -317 ml 100 ml 55 ml 2 ml Intake Oral 220 ml 240 ml IV Total 533 ml 100 ml 385 ml 412 ml Output Urine Total 850 ml 550 ml 650 ml Laboratory Laboratory Tests Test 07/11/17 04:23 White Blood Count 11.7 Red Blood Count 4.04 Hemoglobin 12.0 Hematocrit 36.4 Mean Corpuscular Volume 90.1 Mean Corpuscular Hemoglobin 29.7 Mean Corpuscular Hemoglobin Concent 33.0 Red Cell Distribution Width 13.6 Platelet Count 178 Mean Platelet Volume 12.0 Blood Urea Nitrogen 86 Creatinine 2.45 Random Glucose 198 Calcium Level 9.4 Sodium Level 141 Potassium Level 4.8 Chloride Level 107 Carbon Dioxide Level 26.9 Anion Gap 7 Estimat Glomerular Filtration Rate 33 Date/Time Source Procedure Growth Status 06/22/17 17:00 Bronchial Washings Left Lower Lobe Fungal Smear - Final NO FUNGAL ELEMENTS SEEN. Resulted 06/22/17 17:00 Bronchial Washings Left Lower Lobe Fungal Culture - Preliminary NO GROWTH IN 2 WEEKS Resulted Imaging Last Impressions Chest X-Ray 07/11/17 0600 Signed Impressions: Service Date/Time: July 03:42 - CONCLUSION: 1. Cardiomegaly with mild positive fluid balance. 2. Improved bilateral lower zone airspace disease. Marco Booker MD Abdomen X-Ray 07/08/17 0000 Signed Impressions: Service Date/Time: Saturday, July 08, 2017 11:20 - CONCLUSION: NG tube as above. Florentino Herrera MD Head CT 06/18/17 0000 Signed Impressions: Service Date/Time: Sunday, June 18, 2017 00:48 - CONCLUSION: Negative exam. No evidence of intracranial hemorrhage. Ronni Capps MD Bone Biopsy CT 06/17/17 0000 Signed Impressions: Service Date/Time: Saturday, June 17, 2017 12:35 - CONCLUSION: Bone marrow aspiration and biopsy complicated by intubation and resuscitation. Pathology is pending. Rell Valentin MD FACR Abdomen Ultrasound 06/16/17 0000 Signed Impressions: Service Date/Time: Friday, June 16, 2017 18:13 - CONCLUSION: Limited sonographic windows due to patient body habitus and bowel gas. Right renal cyst. Visualized portions of the abdomen otherwise within normal limits. Jose Bruno MD Lower Extremity Ultrasound 06/14/17 0000 Signed Impressions: Service Date/Time: Wednesday, June 14, 2017 08:15 - CONCLUSION: Normal examination. Kushal Camacho MD Physical Exam HEENT: Normocephalic; atraumatic; no jaundice. CHEST: Resp. even/unlabored, diminished, Tracheostomy- Tbar CARDIAC: RRR ABDOMEN: Soft, obese, nondistended, nontender; no hepatosplenomegaly; bowel sounds are present in all four quadrants. EXTREMITIES: Generalized edema. SKIN: Normal; no rash; no jaundice. GUITAR INSTRUCTOR: Lethargic, follows commands (Isaura Leon) Assessment and Plan Plan ASSESSMENT - Dysphagia. S/P tracheostomy. GI was consulted for PEG tube placement, but passed swallow evaluation yesterday. Taking soft diet with nectar thickened liquids. PEG tube cancelled. Encourage po intake. Resume eliquis. Cont. ST. - Resp. Failure, HCAP, Aspiration PNA. Has tracheostomy, nebs, s/p abx - Symptomatic bradycardia, Chronic CHF. S/P Cardiology evaluation - CKD per renal - Afib. Eliquis on hold, on lovenox PLAN - Soft diet with nectar thickened liquids - Resume Eliquis - Cont. ST - GI will sign off, please reconsult as needed - This pt seen by myself and Dr Alonzo and this note is written on his behalf (Isaura Leon) Physician Comments Agree with the above note, patient swallowed it well and eating well, we will sign off, follow up as needed (Steph Alonzo MD) Isaura Leon Jul 11, 2017 16:57 Steph Alonzo MD Jul 11, 2017 19:45
[2017-07-11] MEDS: APIXABAN 5 MG TABLET NG SCH (22:28)
[2017-07-12] VITALS (27 sets, daily range): BP systolic 130–148; BP diastolic 80–95; PULSE 71–121; RESP 17–22; TEMP 97.5–98.6; O2SAT 97–99
[2017-07-12] MEDS: METOPROLOL TARTRATE 25 MG TAB PO SCH ×4 (00:27→17:31)
[2017-07-12] MEDS: SODIUM CHLOR 0.9% 1000 ML INJ 1,000 ML IV SCH (01:25)
[2017-07-12] MEDS: CHLORHEXIDINE GLUCONATE 2 % 1 PACK (2 CLOTHS) TOP SCH (04:00)
[2017-07-12] MEDS: INSULIN NovoLIN REGULAR SUPPLEMENTAL SCALE SQ SCH ×5 (06:00→23:59)
[2017-07-12] MEDS: METOCLOPRAMIDE HCL 10 MG/2 ML VIAL IV PUSH SCH (06:48)
[2017-07-12 07:37] LABS: HEMATOCRIT 36.5 % (39.0-51.0); MEAN CELL VOLUME 90.8 FL (80.0-100.0); MEAN CORPUSCULAR HEMOGLOBIN 29.2 PG (27.0-34.0); MEAN CORPUSCULAR HGB CONC 32.2 % (32.0-36.0); PLATELET COUNT 194 TH/MM3 (150-450); RED BLOOD COUNT 4.02 MIL/MM3 (4.50-5.90); RED CELL DISTRIBUTION WIDTH 13.6 % (11.6-17.2); REVIEW FLAG FINAL
[2017-07-12 07:59] LABS: BICARBONATE 25.3 MEQ/L (21.0-32.0); POTASSIUM 4.5 MEQ/L (3.5-5.1)
[2017-07-12] MEDS: CHLORHEXIDINE 0.12% (ORAL KIT) 15 ML CUP MT SCH ×2 (08:00→20:00)
[2017-07-12] MEDS: PANTOPRAZOLE SODIUM 40 MG VIAL IV SCH (08:56)
[2017-07-12] MEDS: AMIODARONE 200 MG TAB NG SCH (08:56)
[2017-07-12] MEDS: DOCUSATE SODIUM 50 MG/SENNA 8.6 MG TAB PO SCH ×2 (08:57→21:28)
[2017-07-12] MEDS: TOPIRAMATE 100 MG TAB PO SCH (08:57)
[2017-07-12] MEDS: methylPREDNISolone SOD SUCC 40 MG/1 ML VIAL IV SCH (08:58)
[2017-07-12] MEDS: SODIUM CHLORIDE 0.9% FLUSH 10 ML FLUSH IV FLUSH SCH ×2 (08:58→21:28)
[2017-07-12] MEDS: ARTIFICIAL TEARS OPTH SOLN 15 ML BTL EACH EYE SCH ×3 (09:09→17:48)
--- NOTE | 2017-07-12 09:51 | HHI.PR ---
Subjective Remarks Patient can mouth some words. States he is doing okay. Discussed with RN. Encourage him to get out of bed to the chair. Objective Vitals Vital Signs Date Time Temp Pulse Resp B/P (MAP) Pulse Ox O2 Delivery O2 Flow Rate FiO2 07/12/17 09:14 99 T-piece 5.00 28 07/12/17 08:49 98.4 86 18 130/80 (97) 99 07/12/17 07:55 74 07/12/17 07:55 96 Nasal Cannula 5.00 07/12/17 06:00 78 07/12/17 05:21 83 07/12/17 04:15 78 07/12/17 03:15 98.3 71 19 141/89 (106) 99 07/12/17 03:15 81 07/12/17 02:01 78 07/12/17 01:43 74 07/12/17 00:00 74 07/11/17 23:50 98.5 74 20 134/73 (93) 95 07/11/17 23:50 72 07/11/17 22:00 84 07/11/17 20:00 98.8 90 20 132/63 (86) 97 07/11/17 20:00 90 07/11/17 19:35 99 T-piece 5.00 28 07/11/17 19:00 98 T-Piece 5.00 28 07/11/17 18:00 77 07/11/17 16:00 88 07/11/17 16:00 98.4 88 18 139/96 (110) 97 07/11/17 15:54 88 139/96 07/11/17 14:00 98 07/11/17 12:00 93 07/11/17 12:00 98.7 93 26 126/88 (101) 97 07/11/17 10:00 92 I/O 07/11/17 07/11/17 07/11/17 07/12/17 07/12/17 07/12/17 06:59 14:59 22:59 06:59 14:59 22:59 Intake Total 652 ml 47 ml 100 ml Output Total 650 ml 750 ml Balance 2 ml 47 ml -650 ml Intake Oral 240 ml IV Total 412 ml 47 ml 100 ml Output Urine Total 650 ml 750 ml Result Diagram: 07/12/1760907/12/17609 Objective Remarks GENERAL: Morbidly obese, chronically ill-appearing male. Trached CARDIOVASCULAR: Normal rate and regular rhythm without murmurs, gallops, or rubs. RESPIRATORY: Trachea in place. Coarse breath sounds throughout. GASTROINTESTINAL: Morbidly obese. Hypoactive bowel sounds. Abdomen is soft, nontender. MUSCULOSKELETAL: Extremities with 2+ edema in bilateral lower extremities. NEURO: Awake. Alert. Not able to talk due to trach but can mild some. PSYCH: Calm Procedures 06/17/17 intubation 06/17/17 CPR 06/17/17 right femoral arterial catheter placement 06/18/17 right IJ central line placement 06/22/17 fiberoptic bronchoscopy 06/24/17 right axillary arterial catheter placement 06/24/17 tracheostomy, bronchoscopy A/P Problem List: (1) Hypotension ICD Code: I95.9 - Hypotension, unspecified Status: Acute (2) Symptomatic bradycardia ICD Code: R00.1 - Bradycardia, unspecified Status: Acute (3) CKD (chronic kidney disease), stage III ICD Code: N18.3 - Chronic kidney disease, stage 3 (moderate) Status: Chronic (4) Chronic systolic CHF (congestive heart failure) ICD Code: I50.22 - Chronic systolic (congestive) heart failure Status: Chronic (5) Atrial fibrillation ICD Code: I48.91 - Unspecified atrial fibrillation Status: Chronic (6) Acute worsening of stage 3 chronic kidney disease ICD Code: N18.3 - Chronic kidney disease, stage 3 (moderate) Status: Acute (7) Thrombocytopenia ICD Code: D69.6 - Thrombocytopenia, unspecified Status: Chronic Assessment and Plan In summary this is a 57-year-old male with complex comorbidities including ischemic heart disease, cardiomyopathy, chronic kidney disease, atrial fibrillation, status post cardiogenic shock and PEA cardiac arrest. Patient has had a prolonged ICU course. He has a trach. He is improving and have since moved to the floor. Continue rehabilitation efforts. He may be a candidate for [facility] in a few days. Cardiogenic shock status post PEA cardiac arrest/Chronic systolic congestive heart failure: Clinically stable currently. Patient was followed by cardiology : Stable from a cardiology standpoint - EF less than 20%. Continue beta obdulio, FABRICE inhibitor, and diuretics. Atrial fibrillation: Rate controlled. Resume Eliquis had a lower dose 2.5 mg twice a day given renal failure. Continue amiodarone, metoprolol. Resp Failure, trached after bone marrow biopsy. Acute hypoxic respiratory failure: Status post mechanical ventilation. Tolerating T piece. Continue bronchodilators, supplemental oxygen. Trach management per pulmonology. - Patient does have a good amount of secretions. Levsin as needed Acute kidney injury superimposed on chronic kidney disease, stage III: BUN and creatinine improving. Avoid nephrotoxic medications. Appreciate nephrology recommendations. Anderson catheter in place. Seizure disorder: Continue Topamax. Thrombocytopenia: Appreciate hematology recommendations. Status post bone marrow biopsy. - Thrombocytopenia resolved. Morbid obesity, acute mild protein energy malnutrition: Patient took out NG tube. He is eating better. Continue diet per speech as tolerated. HCAP/aspiration pneumonia: Sputum culture 06/20 growing Enterobacter. Completed course of cefepime, Flagyl. Now off antibiotics. GI prophylaxis: Protonix. Diabetes mellitus: Monitor Accu-Cheks and cover with sliding scale insulin. DVT prophylaxis: Eliquis. Problem Qualifiers (1) Hypotension: Popeye Dennison MD Jul 12, 2017 09:51
--- NOTE | 2017-07-12 10:42 | HHI.PR ---
Objective Vitals Vital Signs Date Time Temp Pulse Resp B/P (MAP) Pulse Ox O2 Delivery O2 Flow Rate FiO2 07/12/17 10:00 88 07/12/17 09:14 99 T-piece 5.00 28 07/12/17 09:00 75 07/12/17 08:49 98.4 86 18 130/80 (97) 99 07/12/17 08:00 79 07/12/17 07:55 74 07/12/17 07:55 96 Nasal Cannula 5.00 07/12/17 06:00 78 07/12/17 05:21 83 07/12/17 04:15 78 07/12/17 03:15 98.3 71 19 141/89 (106) 99 07/12/17 03:15 81 07/12/17 02:01 78 07/12/17 01:43 74 07/12/17 00:00 74 07/11/17 23:50 98.5 74 20 134/73 (93) 95 07/11/17 23:50 72 07/11/17 22:00 84 07/11/17 20:00 98.8 90 20 132/63 (86) 97 07/11/17 20:00 90 07/11/17 19:35 99 T-piece 5.00 28 07/11/17 19:00 98 T-Piece 5.00 28 07/11/17 18:00 77 07/11/17 16:00 88 07/11/17 16:00 98.4 88 18 139/96 (110) 97 07/11/17 15:54 88 139/96 07/11/17 14:00 98 07/11/17 12:00 93 07/11/17 12:00 98.7 93 26 126/88 (101) 97 I/O 07/11/17 07/11/17 07/11/17 07/12/17 07/12/17 07/12/17 07:00 15:00 23:00 07:00 15:00 23:00 Intake Total 699 ml 100 ml Output Total 650 ml 750 ml Balance 49 ml -650 ml Intake Oral 240 ml IV Total 459 ml 100 ml Output Urine Total 650 ml 750 ml Result Diagram: 07/12/1760907/12/17609 Objective Remarks GENERAL: Morbidly obese, chronically ill-appearing male CARDIOVASCULAR: Normal rate and regular rhythm without murmurs, gallops, or rubs. RESPIRATORY: Trachea in place. Coarse breath sounds throughout. GASTROINTESTINAL: Morbidly obese. Hypoactive bowel sounds. Abdomen is soft, nontender. MUSCULOSKELETAL: Extremities with 2+ edema in bilateral lower extremities. NEURO: Awake. Alert. Not able to talk due to trach but can mild some. PSYCH: Calm Procedures 06/17/17 intubation 06/17/17 CPR 06/17/17 right femoral arterial catheter placement 06/18/17 right IJ central line placement 06/22/17 fiberoptic bronchoscopy 06/24/17 right axillary arterial catheter placement 06/24/17 tracheostomy, bronchoscopy A/P Problem List: (1) Hypotension ICD Code: I95.9 - Hypotension, unspecified Status: Acute (2) Symptomatic bradycardia ICD Code: R00.1 - Bradycardia, unspecified Status: Acute (3) CKD (chronic kidney disease), stage III ICD Code: N18.3 - Chronic kidney disease, stage 3 (moderate) Status: Chronic (4) Chronic systolic CHF (congestive heart failure) ICD Code: I50.22 - Chronic systolic (congestive) heart failure Status: Chronic (5) Atrial fibrillation ICD Code: I48.91 - Unspecified atrial fibrillation Status: Chronic (6) Acute worsening of stage 3 chronic kidney disease ICD Code: N18.3 - Chronic kidney disease, stage 3 (moderate) Status: Acute (7) Thrombocytopenia ICD Code: D69.6 - Thrombocytopenia, unspecified Status: Chronic Assessment and Plan 57-year-old male with complex comorbidities including ischemic heart disease, cardiomyopathy, chronic kidney disease, atrial fibrillation, status post cardiogenic shock and PEA cardiac arrest. Patient has had a prolonged ICU course. He has a trach. Cardiogenic shock status post PEA cardiac arrest/Chronic systolic congestive heart failure: Clinically stable currently. Patient was followed by cardiology : Stable from a cardiology standpoint - EF less than 20%. Continue beta obdulio, FABRICE inhibitor, and diuretics. Atrial fibrillation: Rate controlled. Eliquis on hold for possible procedure. Plan to resume tomorrow. Continue Lovenox. Continue amiodarone, metoprolol. Resp Failure, trach after bone marrow biopsy. Acute hypoxic respiratory failure : Status post mechanical ventilation. Tolerating T piece. Continue bronchodilators, supplemental oxygen. Trach management per pulmonology. - Patient has copious amount of secretions about the trach. Acute kidney injury superimposed on chronic kidney disease, stage III: BUN and creatinine are increasing. Avoid nephrotoxic medications. Appreciate nephrology recommendations. Anderson catheter in place. Seizure disorder: Continue Topamax. Thrombocytopenia: Appreciate hematology recommendations. Status post bone marrow biopsy. - Thrombocytopenia resolved. Morbid obesity, acute mild protein energy malnutrition: Patient took out NG tube. He is eating better. Continue diet spur speech as tolerated. HCAP/aspiration pneumonia: Sputum culture 06/20 growing Enterobacter. Completed course of cefepime, Flagyl. Now off antibiotics. GI prophylaxis: Protonix. Diabetes mellitus: Monitor Accu-Cheks and cover with sliding scale insulin. DVT prophylaxis: Eliquis. The patient is improving. He may be a candidate for [facility] in a few days. Problem Qualifiers (1) Hypotension: Popeye Dennison MD Jul 12, 2017 10:42
[2017-07-12] MEDS: DILTIAZEM HCL 30 MG TAB PO SCH ×3 (13:13→21:28)
[2017-07-12] MEDS ORDERED: METOCLOPRAMIDE HCL 10 MG/2 ML VIAL IV PUSH PRN (14:30)
--- NOTE | 2017-07-12 14:38 | HHI.PR ---
Subjective Remarks Alert and talking. and , stable. On a T bar at 30 %. Trach secretions are clear..Passed swallow test. On a pureed diet. Objective Vital Signs Date Time Temp Pulse Resp B/P (MAP) Pulse Ox O2 Delivery O2 Flow Rate FiO2 07/12/17 13:41 87 07/12/17 12:16 85 07/12/17 11:52 98.6 92 17 98 07/12/17 11:52 92 07/12/17 10:00 88 07/12/17 09:14 99 T-piece 5.00 28 07/12/17 09:00 75 07/12/17 08:49 98.4 86 18 130/80 (97) 99 07/12/17 08:00 79 07/12/17 07:55 74 07/12/17 07:55 96 Nasal Cannula 5.00 07/12/17 07:00 86 130/80 07/12/17 06:00 78 07/12/17 05:21 83 07/12/17 04:15 78 07/12/17 03:15 98.3 71 19 141/89 (106) 99 07/12/17 03:15 81 07/12/17 02:01 78 07/12/17 01:43 74 07/12/17 00:00 74 07/11/17 23:50 98.5 74 20 134/73 (93) 95 07/11/17 23:50 72 07/11/17 22:00 84 07/11/17 20:00 98.8 90 20 132/63 (86) 97 07/11/17 20:00 90 07/11/17 19:35 99 T-piece 5.00 07/11/17 19:00 98 T-Piece 5.00 28 07/11/17 18:00 77 07/11/17 16:00 88 07/11/17 16:00 98.4 88 18 139/96 (110) 97 07/11/17 15:54 88 139/96 I/O 07/11/17 07/11/17 07/11/17 07/12/17 07/12/17 07/12/17 06:59 14:59 22:59 06:59 14:59 22:59 Intake Total 652 ml 47 ml 100 ml 90 ml Output Total 650 ml 750 ml Balance 2 ml 47 ml -650 ml 90 ml Intake Oral 240 ml IV Total 412 ml 47 ml 100 ml 90 ml Output Urine Total 650 ml 750 ml Result Diagram: 07/12/1760907/12/17609 Objective Remarks This is a moderately obese elderly man with a trach HEENT: Head normocephalic. Pupils reactive and enlarged. Throat is clear . Nasal mucosa is clear. Neck: Supple with trach tube in place. No thyromegaly. Chest: Distant breath sounds with occasional crackles at the lung bases.Occ Wheeze Heart: The heart sounds were regular, S1-S2. No murmur or S3. Abdomen: Soft and benign. No masses. No organomegaly or tenderness. Bowel sounds active. Extremities: No edema. Reflexes 1+ with no gross motor deficits. Neurologic: Moves all .he is oriented and talking. Skin: No lesions observed. Assessment and Plan Assessment and Plan IMPRESSION 1. Chronic respiratory failure. 2. Chronic kidney disease stage III. 3. Atrial fibrillation and ASHD. 4. History of diabetes mellitus. 5. Hypertension. 6. S/P Trach Plan: 1. Wean FIO2 to keep sat >92. 2. Add CPAP at HS for Sleep Apnea. 3. Nebs qid , dioneb 4. Cont antibiotics. 5. PM Valve to talk with supervision 6. CBC in am 7. cont solumedrol 40 mg bid X 2 days Kurtis Patiño MD Jul 12, 2017 14:38
--- NOTE | 2017-07-12 15:41 | HHI.NPPN ---
Subjective History of Present Illness 57-year-old -[place] male with past medical history of seizure disorder, ischemic heart disease, cardiomyopathy, chronic kidney disease, hypertension, diabetes mellitus, atrial fibrillation who was admitted more than three weeks ago for shortness of breath. I was called to see the patient for elevated BUN and creatinine. The patient has a known history of chronic kidney disease and it seems like his baseline creatinine has been in the range of 1.4 to 1.7. Additional Remarks Patient remain with Trach. and T-Piece, eating and feeling much better, seen in AM. Review of Systems Respiratory Lungs: SOB, Cough, Sputum, Wheeze Cardiovascular Cardiac: Edema, GATES Objective Data Data 07/12/17 07/13/17 19:00 07:00 Intake Total 90 ml Balance 90 ml IV Total 90 ml Vital Signs Date Time Temp Pulse Resp B/P (MAP) Pulse Ox O2 Delivery O2 Flow Rate FiO2 07/12/17 15:22 98.5 90 18 98 07/12/17 13:41 87 07/12/17 12:16 85 07/12/17 11:52 98.6 92 17 98 07/12/17 11:52 92 07/12/17 10:00 88 07/12/17 09:14 99 T-piece 5.00 28 07/12/17 09:00 75 07/12/17 08:49 98.4 86 18 130/80 (97) 99 07/12/17 08:00 79 07/12/17 07:55 74 07/12/17 07:55 96 Nasal Cannula 5.00 07/12/17 07:00 86 130/80 07/12/17 06:00 78 07/12/17 05:21 83 07/12/17 04:15 78 07/12/17 03:15 98.3 71 19 141/89 (106) 99 07/12/17 03:15 81 07/12/17 02:01 78 07/12/17 01:43 74 07/12/17 00:00 74 07/11/17 23:50 98.5 74 20 134/73 (93) 95 07/11/17 23:50 72 07/11/17 22:00 84 07/11/17 20:00 98.8 90 20 132/63 (86) 97 07/11/17 20:00 90 07/11/17 19:35 99 T-piece 5.00 28 07/11/17 19:00 98 T-Piece 5.00 28 07/11/17 18:00 77 07/11/17 16:00 88 07/11/17 16:00 98.4 88 18 139/96 (110) 97 07/11/17 15:54 88 139/96 -: 07/12/17 0610 07/12/17 0610 Physical Exam General Appearance: No Acute Distress, Comfortable Eyes Eye Exam: Pupils Equal Throat Throat Exam: Oral Mucosa [place] & Moist Neck Neck Exam: Neck Supple Pulmonary Resp Exam: Crackles, Rhonchi, Sputum, Decreased Bases, Diminished Breath Sounds Gastrointestinal/Abdomen GI Exam: Soft, Non-Tender, Bowel Sounds Present, Distended Extremeties Extremities Exam: Moderate Edema, Pitting Edema, Dependent Edema Neurologic Neuro Exam: Alert, Awake, Oriented Psychiatric Psych Exam: Appropriate Responses Assessment/Plan Assessment Summary: DENNYS/Acute Renal Failure, CKD Stage III Problem List: (1) Acute kidney injury ICD Codes: N17.9 - Acute kidney failure, unspecified (2) CHF (congestive heart failure) ICD Codes: I50.9 - Heart failure, unspecified Status: Resolved (3) DM (diabetes mellitus) ICD Codes: E11.9 - Type 2 diabetes mellitus without complications Status: Chronic (4) Peripheral edema ICD Codes: R60.9 - Edema, unspecified Status: Acute (5) Atrial fibrillation ICD Codes: I48.91 - Unspecified atrial fibrillation Status: Chronic (6) Atrial fibrillation with RVR ICD Codes: I48.91 - Unspecified atrial fibrillation Status: Resolved (7) CKD (chronic kidney disease), stage III ICD Codes: N18.3 - Chronic kidney disease, stage 3 (moderate) Status: Chronic Plan He has chronic kidney disease and the baseline Creatinine is close to 1.7-1.8. Most likely has underlying Hypertensive or renovascular disease. K increased again, give Kayexalate. Continue to hold diuretics. Urine out put is adequate. Possibly has ATN causing DENNYS. Follow the urine out put and BMP. Avoid Nephrotoxins. Creatinine now improve to 2.0 K is normal, off diuretics. Avoid Nephrotoxins and follow the BMP. Rajan Hoyt MD Jul 12, 2017 15:41
[2017-07-12] MEDS: APIXABAN 2.5 MG TABLET NG SCH (21:28)
[2017-07-12] MEDS: LABETALOL HCL 100 MG/20 ML VIAL IV PUSH PRN (21:33)
[2017-07-13] VITALS (29 sets, daily range): BP systolic 114–147; BP diastolic 3–84; PULSE 72–113; RESP 18–25; TEMP 98–99.3; O2SAT 98–100
[2017-07-13] MEDS: hydrALAZINE HCL 20 MG/ML VIAL IV PUSH PRN (00:43)
[2017-07-13] MEDS: CHLORHEXIDINE GLUCONATE 2 % 1 PACK (2 CLOTHS) TOP SCH (02:26)
[2017-07-13] MEDS: INSULIN NovoLIN REGULAR SUPPLEMENTAL SCALE SQ SCH ×3 (06:00→16:34)
[2017-07-13] MEDS: METOPROLOL TARTRATE 25 MG TAB PO SCH ×4 (06:16→16:33)
[2017-07-13] MEDS: CHLORHEXIDINE 0.12% (ORAL KIT) 15 ML CUP MT SCH ×2 (08:00→20:00)
[2017-07-13] MEDS: TOPIRAMATE 100 MG TAB PO SCH (09:00)
[2017-07-13] MEDS: PANTOPRAZOLE SODIUM 40 MG VIAL IV SCH (09:21)
[2017-07-13] MEDS: DILTIAZEM HCL 30 MG TAB PO SCH ×4 (09:22→21:13)
[2017-07-13] MEDS: DOCUSATE SODIUM 50 MG/SENNA 8.6 MG TAB PO SCH ×2 (09:22→21:13)
[2017-07-13] MEDS: APIXABAN 2.5 MG TABLET NG SCH ×2 (09:22→21:14)
[2017-07-13] MEDS: AMIODARONE 200 MG TAB NG SCH (09:22)
[2017-07-13] MEDS: SODIUM CHLORIDE 0.9% FLUSH 10 ML FLUSH IV FLUSH SCH ×2 (09:23→21:13)
[2017-07-13] MEDS: ARTIFICIAL TEARS OPTH SOLN 15 ML BTL EACH EYE SCH ×3 (09:25→16:34)
--- NOTE | 2017-07-13 15:03 | HHI.PR ---
Subjective Remarks Follow-up cardiogenic shock and respiratory failure. Patient examined. Patient sleeping and not arousable despite name called and shaking. Patient did not move one eyelids opened. Per nursing (Fancy) patient has had coughing spells and then tired thereafter. Nursing reported patient declined breakfast this morning and has been "sleeping soundly all day". Objective Vitals Vital Signs Date Time Temp Pulse Resp B/P (MAP) Pulse Ox O2 Delivery O2 Flow Rate FiO2 07/13/17 14:25 94 07/13/17 13:10 80 07/13/17 12:05 72 07/13/17 12:05 98.1 72 20 125/64 (84) 99 07/13/17 10:33 99 07/13/17 09:25 101 07/13/17 08:22 88 07/13/17 07:54 98.2 75 25 114/65 (81) 99 07/13/17 07:54 78 07/13/17 07:54 100 Trach Collar 5.00 28 07/13/17 07:30 100 T-piece 28 07/13/17 06:00 113 07/13/17 05:27 99 35 07/13/17 05:00 105 07/13/17 04:00 100 07/13/17 03:00 98.0 83 25 119/67 (84) 100 07/13/17 03:00 106 07/13/17 02:00 83 07/13/17 01:00 91 07/13/17 00:18 100 35 07/13/17 00:00 88 07/12/17 23:00 98.0 87 22 148/95 (112) 97 07/12/17 23:00 121 07/12/17 22:00 96 07/12/17 21:00 86 07/12/17 20:00 96 07/12/17 20:00 99 Trach Collar 5.00 28 07/12/17 20:00 97.5 83 18 135/93 (107) 99 07/12/17 20:00 98 T-piece 28 07/12/17 19:00 91 07/12/17 18:15 79 07/12/17 17:11 82 07/12/17 16:00 77 07/12/17 15:22 98.5 90 18 98 07/12/17 15:00 92 I/O 07/12/17 07/12/17 07/12/17 07/13/17 07/13/17 07/13/17 07:00 15:00 23:00 07:00 15:00 23:00 Intake Total 90 ml 580 ml 480 ml Output Total 750 ml Balance 90 ml 580 ml -270 ml Intake Oral 580 ml 480 ml IV Total 90 ml Output Urine Total 750 ml # Bowel Movements 2 2 Result Diagram: 07/12/17 0610 07/12/17 0610 Imaging Last Impressions Chest X-Ray 07/11/17 0600 Signed Impressions: Service Date/Time: July 03:42 - CONCLUSION: 1. Cardiomegaly with mild positive fluid balance. 2. Improved bilateral lower zone airspace disease. Marco Booker MD Abdomen X-Ray 07/08/17 0000 Signed Impressions: Service Date/Time: Saturday, July 08, 2017 11:20 - CONCLUSION: NG tube as above. Florentino Herrera MD Head CT 06/18/17 0000 Signed Impressions: Service Date/Time: Sunday, June 18, 2017 00:48 - CONCLUSION: Negative exam. No evidence of intracranial hemorrhage. Ronni Capps MD Bone Biopsy CT 06/17/17 0000 Signed Impressions: Service Date/Time: Saturday, June 17, 2017 12:35 - CONCLUSION: Bone marrow aspiration and biopsy complicated by intubation and resuscitation. Pathology is pending. Rell Valentin MD FACR Abdomen Ultrasound 06/16/17 0000 Signed Impressions: Service Date/Time: Friday, June 16, 2017 18:13 - CONCLUSION: Limited sonographic windows due to patient body habitus and bowel gas. Right renal cyst. Visualized portions of the abdomen otherwise within normal limits. Jose Bruno MD Lower Extremity Ultrasound 06/14/17 0000 Signed Impressions: Service Date/Time: Wednesday, June 14, 2017 08:15 - CONCLUSION: Normal examination. Kushal Camacho MD Objective Remarks GENERAL: Pt encountered laying a bed, sleeping. t-piece in place. SKIN: Warm and dry. HEAD: Normocephalic. EYES: No scleral icterus. No injection or drainage. Eyelids prior open during examination, patient evidenced no defensive reaction. NECK: Supple, trachea midline. No lymphadenopathy. CARDIOVASCULAR: Regular rate and rhythm without murmurs, gallops, or rubs. RESPIRATORY: Breath sounds equal bilaterally. No wheezes rhonchi or crackles. No accessory muscle use. GASTROINTESTINAL: Abdomen soft, non-tender, nondistended. MUSCULOSKELETAL: No cyanosis, or edema. PSYCHIATRIC: Could not be assessed. Procedures 06/17/17 intubation 06/17/17 CPR 06/17/17 right femoral arterial catheter placement 06/18/17 right IJ central line placement 06/22/17 fiberoptic bronchoscopy 06/24/17 right axillary arterial catheter placement 06/24/17 tracheostomy, bronchoscopy Medications and IVs Current Medications Medications (Trade) Dose Ordered Sig/Ashok Route Start Time Stop Time Status Last Admin (Narcan Inj) 0.4 mg UNSCH PRN IV 06/14/17 04:30 (Topamax) 100 mg DAILY PO 06/14/17 11:00 07/13/17 09:00 (Tylenol) 650 mg Q6H PRN PO 06/15/17 21:30 06/30/17 20:37 (Peridex 0.12% Liq) 15 ml BID@08,20 MT 06/17/17 20:00 07/11/17 10:58 (NS Flush) 2 ml UNSCH PRN IV FLUSH 06/17/17 14:15 (NS Flush) 2 ml BID IV FLUSH 06/17/17 21:00 07/13/17 09:23 (Protonix Inj) 40 mg DAILY IV 06/18/17 09:00 07/13/17 09:21 (Tears Naturale Opth Soln) 1 drop TID EACH EYE 06/17/17 18:00 07/13/17 12:22 (Zofran Inj) 4 mg Q6H PRN IV 06/17/17 14:15 06/22/17 08:22 (Albuterol Neb) 2.5 mg Q2HR NEB PRN INH 06/17/17 14:15 07/11/17 19:47 Miscellaneous Information 1 Q361D XX 06/17/17 14:15 (Chlorhexidine 2% Cloth) Taper DAILY@04 TOP 06/18/17 04:00 06/14/18 03:59 07/11/17 04:00 (Chlorhexidine 2% Cloth) 3 pack UNSCH PRN TOP 06/17/17 14:15 (Marilee-Colace) 1 tab BID PO 06/17/17 21:00 07/13/17 09:22 (Milk Of Magnesia Liq) 30 ml Q12H PRN PO 06/17/17 14:15 06/21/17 11:21 (Senokot) 17.2 mg Q12H PRN PO 06/17/17 14:15 (Dulcolax Supp) 10 mg DAILY PRN RECTAL 06/17/17 14:15 (Lactulose Liq) 30 ml DAILY PRN PO 06/17/17 14:15 06/21/17 11:21 (D50w (Vial) Inj) 50 ml UNSCH PRN IV 06/17/17 14:15 (Glucagon Inj) 1 mg UNSCH PRN OTHER 06/17/17 14:15 (NovoLIN R SUPPLEMENTAL SCALE) 1 Q6HR SQ 06/17/17 18:00 07/12/17 17:34 (Trandate Inj) 10 mg Q1HR PRN IV PUSH 06/18/17 08:45 07/12/17 21:33 (Apresoline Inj) 10 mg Q1HR PRN IV PUSH 06/18/17 08:45 07/13/17 00:43 (Nitroglycerin 2% Oint) 2 inch Q6HR PRN TOPICAL 06/18/17 08:45 06/18/17 13:00 (Lopressor Inj) 2.5 mg Q6H PRN IV PUSH 06/25/17 15:30 07/08/17 02:24 (Cordarone) 200 mg DAILY NG 06/29/17 11:00 07/13/17 09:22 ([place] 5-325 Mg) 1 tab Q6H PRN PO 06/29/17 18:00 07/07/17 23:24 (Morphine Inj) 2 mg Q3H PRN IV PUSH 06/29/17 18:00 06/29/17 18:12 (Morphine Inj) 4 mg Q3H PRN IV PUSH 06/29/17 18:00 07/10/17 03:54 (Bumex Inj) 1 mg BID@,18 IV PUSH 06/30/17 18:00 Future Hold 07/06/17 18:00 (Vasotec) 10 mg DAILY NG 07/01/17 09:00 Future Hold 07/05/17 08:50 (Lopressor) 25 mg Q6HR PO 07/07/17 18:00 07/13/17 12:21 Cefazolin Sodium 1000 mg/Sodium Chloride 100 ml @ 200 mls/hr 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[employer]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 IV 07/11/17 06:00 07/14/17 05:59 (Levsin Inj) 0.25 mg Q4H PRN IV PUSH 07/10/17 23:00 (Cardizem) 30 mg QID PO 07/12/17 13:00 07/13/17 12:21 (Eliquis) 2.5 mg BID NG 07/12/17 21:00 07/13/17 09:22 (Reglan Inj) 5 mg Q8HR PRN IV PUSH 07/12/17 14:30 Urinary Catheter: Yes Assessment to: Continue Anderson insert reason: Prolonged Immobilization A/P Problem List: (1) Hypotension ICD Code: I95.9 - Hypotension, unspecified Status: Acute (2) Symptomatic bradycardia ICD Code: R00.1 - Bradycardia, unspecified Status: Acute (3) CKD (chronic kidney disease), stage III ICD Code: N18.3 - Chronic kidney disease, stage 3 (moderate) Status: Chronic (4) Chronic systolic CHF (congestive heart failure) ICD Code: I50.22 - Chronic systolic (congestive) heart failure Status: Chronic (5) Atrial fibrillation ICD Code: I48.91 - Unspecified atrial fibrillation Status: Chronic (6) Acute worsening of stage 3 chronic kidney disease ICD Code: N18.3 - Chronic kidney disease, stage 3 (moderate) Status: Acute (7) Thrombocytopenia ICD Code: D69.6 - Thrombocytopenia, unspecified Status: Chronic Assessment and Plan In summary this is a 57-year-old male with complex comorbidities including ischemic heart disease, cardiomyopathy, chronic kidney disease, atrial fibrillation, status post cardiogenic shock and PEA cardiac arrest. Patient has had a prolonged ICU course. He has a trach. He is improving and have since moved to the floor. Continue rehabilitation efforts. He may be a candidate for [facility] in a few days. Somnolent: No onset. Vitals stable. labs stable. Acute kidney injury: Creatinine improving. Diabetes: Blood glucose ranged 241-144 past 24 hours. Continue insulin regimen. Cardiogenic shock status post PEA cardiac arrest/Chronic systolic congestive heart failure: Clinically stable currently. Patient was followed by cardiology : Stable from a cardiology standpoint - EF less than 20%. Continue beta obdulio, FABRICE inhibitor, and diuretics. Atrial fibrillation: Rate controlled. Resume Eliquis had a lower dose 2.5 mg twice a day given renal failure. Continue amiodarone, metoprolol. Resp Failure, trached after bone marrow biopsy. Acute hypoxic respiratory failure: Status post mechanical ventilation. Tolerating T piece. Continue bronchodilators, supplemental oxygen. Trach management per pulmonology. - Patient does have a good amount of secretions. Levsin as needed Acute kidney injury superimposed on chronic kidney disease, stage III: BUN and creatinine improving. Avoid nephrotoxic medications. Appreciate nephrology recommendations. Anderson catheter in place. Seizure disorder: Continue Topamax. Thrombocytopenia: Appreciate hematology recommendations. Status post bone marrow biopsy. - Thrombocytopenia resolved. Morbid obesity, acute mild protein energy malnutrition: Patient took out NG tube. He is eating better. Continue diet per speech as tolerated. HCAP/aspiration pneumonia: Sputum culture 06/20 growing Enterobacter. Completed course of cefepime, Flagyl. Now off antibiotics. GI prophylaxis: Protonix. Diabetes mellitus: Monitor Accu-Cheks and cover with sliding scale insulin. DVT prophylaxis: Eliquis. Discussed with RN And Dr. Rodriguez Attending Statement Patient seen today around 2 PM. Reports of somnolence this morning, however appears to have resolved. Patient appears comfortable. Patient had some increased secretions today, however these have resolved. Lungs clear to auscultation on exam. Being assisted Eating snack. Problem Qualifiers (1) Hypotension: Clayton Mccarty Jr. Jul 13, 2017 15:03 Franco Rodriguez MD Jul 13, 2017 23:15
--- NOTE | 2017-07-13 15:38 | HHI.NPPN ---
Subjective History of Present Illness 57-year-old -[place] male with past medical history of seizure disorder, ischemic heart disease, cardiomyopathy, chronic kidney disease, hypertension, diabetes mellitus, atrial fibrillation who was admitted more than three weeks ago for shortness of breath. I was called to see the patient for elevated BUN and creatinine. The patient has a known history of chronic kidney disease and it seems like his baseline creatinine has been in the range of 1.4 to 1.7. Additional Remarks Patient remain with Trach. and T-Piece, eating and feeling much better, seen in AM. Review of Systems Respiratory Lungs: SOB, Cough, Sputum, Wheeze Cardiovascular Cardiac: Edema, GATES Objective Data Data Vital Signs Date Time Temp Pulse Resp B/P (MAP) Pulse Ox O2 Delivery O2 Flow Rate FiO2 07/13/17 15:07 75 07/13/17 15:07 98.5 75 18 121/84 (96) 98 07/13/17 14:25 94 07/13/17 13:10 80 07/13/17 12:05 72 07/13/17 12:05 98.1 72 20 125/64 (84) 99 07/13/17 10:33 99 07/13/17 09:25 101 07/13/17 08:22 88 07/13/17 07:54 98.2 75 25 114/65 (81) 99 07/13/17 07:54 78 07/13/17 07:54 100 Trach Collar 5.00 28 07/13/17 07:30 100 T-piece 28 07/13/17 06:00 113 07/13/17 05:27 99 35 07/13/17 05:00 105 07/13/17 04:00 100 07/13/17 03:00 98.0 83 25 119/67 (84) 100 07/13/17 03:00 106 07/13/17 02:00 83 07/13/17 01:00 91 07/13/17 00:18 100 35 07/13/17 00:00 88 07/12/17 23:00 98.0 87 22 148/95 (112) 97 07/12/17 23:00 121 07/12/17 22:00 96 07/12/17 21:00 86 07/12/17 20:00 96 07/12/17 20:00 99 Trach Collar 5.00 28 07/12/17 20:00 97.5 83 18 135/93 (107) 99 07/12/17 20:00 98 T-piece 28 07/12/17 19:00 91 07/12/17 18:15 79 07/12/17 17:11 82 07/12/17 16:00 77 -: 07/12/17 0610 07/12/17 0610 Physical Exam General Appearance: No Acute Distress, Comfortable Eyes Eye Exam: Pupils Equal Throat Throat Exam: Oral Mucosa [place] & Moist Neck Neck Exam: Neck Supple Pulmonary Resp Exam: Crackles, Rhonchi, Sputum, Decreased Bases, Diminished Breath Sounds Gastrointestinal/Abdomen GI Exam: Soft, Non-Tender, Bowel Sounds Present, Distended Extremeties Extremities Exam: Moderate Edema, Pitting Edema, Dependent Edema Neurologic Neuro Exam: Alert, Awake, Oriented Psychiatric Psych Exam: Appropriate Responses Assessment/Plan Assessment Summary: DENNYS/Acute Renal Failure, CKD Stage III Problem List: (1) Acute kidney injury ICD Codes: N17.9 - Acute kidney failure, unspecified (2) CHF (congestive heart failure) ICD Codes: I50.9 - Heart failure, unspecified Status: Resolved (3) DM (diabetes mellitus) ICD Codes: E11.9 - Type 2 diabetes mellitus without complications Status: Chronic (4) Peripheral edema ICD Codes: R60.9 - Edema, unspecified Status: Acute (5) Atrial fibrillation ICD Codes: I48.91 - Unspecified atrial fibrillation Status: Chronic (6) Atrial fibrillation with RVR ICD Codes: I48.91 - Unspecified atrial fibrillation Status: Resolved (7) CKD (chronic kidney disease), stage III ICD Codes: N18.3 - Chronic kidney disease, stage 3 (moderate) Status: Chronic Plan He has chronic kidney disease and the baseline Creatinine is close to 1.7-1.8. Most likely has underlying Hypertensive or renovascular disease. K increased again, give Kayexalate. Continue to hold diuretics. Urine out put is adequate. Possibly has ATN causing DENNYS. Follow the urine out put and BMP. Avoid Nephrotoxins. Creatinine now improve to 2.0 K is normal, off diuretics. Avoid Nephrotoxins and follow the BMP. will follow as needed Dr Mark Hoyt to see pt next week Dionne Gregory MD Jul 13, 2017 15:38
[2017-07-14] VITALS (32 sets, daily range): BP systolic 104–139; BP diastolic 65–93; PULSE 81–111; RESP 19–20; TEMP 98.7–99.8; O2SAT 97–100
[2017-07-14] MEDS: METOPROLOL TARTRATE 25 MG TAB PO SCH ×4 (00:05→17:38)
[2017-07-14] MEDS: CHLORHEXIDINE GLUCONATE 2 % 1 PACK (2 CLOTHS) TOP SCH (04:00)
--- NOTE | 2017-07-14 04:20 | RADRPT ---
EXAM DATE/TIME: 07/14/2017 02:49 [place] COMPARISON: CHEST SINGLE AP, July 11, 2017, 3:42. INDICATIONS : Shortness of breath. MEDICAL HISTORY : A-fib. Hypercholesterolemia. Hypertension. Congestive heart failure. SURGICAL HISTORY : None. ENCOUNTER: Subsequent ACUITY: 3 weeks PAIN SCORE: Non-responsive. LOCATION: Bilateral chest FINDINGS: Mild retrocardiac consolidation again seen on the left. No large effusion demonstrated. No pneumothor ax. Mild cardiomegaly is stable. Tracheostomy tube again noted. CONCLUSION: No significant change mild left base consolidation. Kushal Horta MD on July 14, 2017 at 4:18 Board Certified Radiologist. This report was verified electronically.
[2017-07-14] MEDS: INSULIN NovoLIN REGULAR SUPPLEMENTAL SCALE SQ SCH ×4 (05:51→17:45)
[2017-07-14] MEDS: CHLORHEXIDINE 0.12% (ORAL KIT) 15 ML CUP MT SCH ×2 (08:00→20:00)
[2017-07-14 08:20] LABS: HEMATOCRIT 37.9 % (39.0-51.0); MEAN CORPUSCULAR HEMOGLOBIN 29.4 PG (27.0-34.0); MEAN CORPUSCULAR HGB CONC 32.6 % (32.0-36.0); PLATELET COUNT 218 TH/MM3 (150-450); RED BLOOD COUNT 4.21 MIL/MM3 (4.50-5.90); RED CELL DISTRIBUTION WIDTH 13.7 % (11.6-17.2); REVIEW FLAG FINAL; WHITE BLOOD COUNT 11.2 TH/MM3 (4.0-11.0)
[2017-07-14] MEDS: AMIODARONE 200 MG TAB NG SCH (08:36)
[2017-07-14] MEDS: APIXABAN 2.5 MG TABLET NG SCH ×2 (08:37→21:32)
[2017-07-14] MEDS: PANTOPRAZOLE SODIUM 40 MG VIAL IV SCH (08:37)
[2017-07-14] MEDS: DILTIAZEM HCL 30 MG TAB PO SCH ×4 (08:37→21:32)
[2017-07-14] MEDS: SODIUM CHLORIDE 0.9% FLUSH 10 ML FLUSH IV FLUSH SCH ×2 (08:38→21:00)
[2017-07-14] MEDS: ARTIFICIAL TEARS OPTH SOLN 15 ML BTL EACH EYE SCH ×3 (08:38→17:42)
[2017-07-14] MEDS: DOCUSATE SODIUM 50 MG/SENNA 8.6 MG TAB PO SCH ×2 (08:50→21:00)
[2017-07-14] MEDS: TOPIRAMATE 100 MG TAB PO SCH (09:00)
--- NOTE | 2017-07-14 16:38 | HHI.PR ---
Subjective Remarks Follow-up cardiogenic shock and respiratory failure. T piece in place. Patient examined. Patient is lethargic and briefly awaken when his name was called. He denied pain or discomfort. Per nursing ([place]) patient having increased oral secretions requiring multiple suctioning. Patient evidenced tachycardia earlier this morning yet abated once he received his metoprolol. Patient seen second time and was more alert and awake. At that time he indicated having discomfort. The source of which could not be determined due to patient's limited medication abilities. Objective Vitals Vital Signs Date Time Temp Pulse Resp B/P (MAP) Pulse Ox O2 Delivery O2 Flow Rate FiO2 07/14/17 16:00 93 07/14/17 15:00 99.1 81 19 104/75 (85) 97 07/14/17 15:00 108 07/14/17 14:00 100 07/14/17 13:00 91 07/14/17 12:00 100 07/14/17 11:30 98 35 07/14/17 11:00 98.7 94 20 123/89 (100) 99 07/14/17 11:00 111 07/14/17 10:00 89 07/14/17 09:00 108 07/14/17 08:00 Trach Collar 07/14/17 08:00 106 07/14/17 07:34 99 35 07/14/17 07:30 98.9 85 20 130/93 (105) 99 07/14/17 07:00 105 07/14/17 06:00 107 07/14/17 05:00 103 07/14/17 04:32 99 35 07/14/17 04:00 94 07/14/17 03:45 99.8 90 19 139/83 (101) 100 07/14/17 03:00 91 07/14/17 02:00 94 07/14/17 01:19 99 35 07/14/17 01:00 96 07/14/17 00:00 95 07/13/17 23:30 99.3 75 20 133/3 (46) 100 07/13/17 23:00 95 07/13/17 22:49 99 35 07/13/17 22:00 90 07/13/17 21:00 96 07/13/17 20:54 99 35 07/13/17 20:00 100 Trach Collar 5.00 07/13/17 20:00 99.1 80 20 147/74 (98) 100 07/13/17 20:00 90 07/13/17 19:00 88 07/13/17 18:00 86 07/13/17 17:00 82 I/O 07/13/17 07/13/17 07/13/17 07/14/17 07/14/17 07/14/17 07:00 15:00 23:00 07:00 15:00 23:00 Intake Total 480 ml 480 ml 480 ml Output Total 750 ml 550 ml 725 ml Balance -270 ml -70 ml -245 ml Intake Oral 480 ml 480 ml 480 ml Output Urine Total 750 ml 550 ml 725 ml # Bowel Movements 2 1 Result Diagram: 07/14/17 0745 07/12/17 0610 Imaging Last Impressions Chest X-Ray 07/14/17 0600 Signed Impressions: Service Date/Time: Friday, July 14, 2017 02:49 - CONCLUSION: No significant change mild left base consolidation. Kushal Horta MD Abdomen X-Ray 07/08/17 0000 Signed Impressions: Service Date/Time: Saturday, July 08, 2017 11:20 - CONCLUSION: NG tube as above. Florentino Herrera MD Head CT 06/18/17 0000 Signed Impressions: Service Date/Time: Sunday, June 18, 2017 00:48 - CONCLUSION: Negative exam. No evidence of intracranial hemorrhage. Ronni Capps MD Bone Biopsy CT 06/17/17 0000 Signed Impressions: Service Date/Time: Saturday, June 17, 2017 12:35 - CONCLUSION: Bone marrow aspiration and biopsy complicated by intubation and resuscitation. Pathology is pending. Rell Valentin MD FACR Abdomen Ultrasound 06/16/17 0000 Signed Impressions: Service Date/Time: Friday, June 16, 2017 18:13 - CONCLUSION: Limited sonographic windows due to patient body habitus and bowel gas. Right renal cyst. Visualized portions of the abdomen otherwise within normal limits. Jose Bruno MD Lower Extremity Ultrasound 06/14/17 0000 Signed Impressions: Service Date/Time: Wednesday, June 14, 2017 08:15 - CONCLUSION: Normal examination. Kushal Camacho MD Objective Remarks GENERAL: Pt encountered laying a bed, sleeping yet easily awakened. t-piece in place. Patient evidenced slight distress on subsequent visit. SKIN: Warm and dry. HEAD: Normocephalic. EYES: No scleral icterus. No injection or drainage. Eyelids pried open during examination and patient awakened. NECK: Supple, trachea midline. No lymphadenopathy. CARDIOVASCULAR: Regular rate and rhythm without murmurs, gallops, or rubs. RESPIRATORY: Breath sounds equal bilaterally. No wheezes rhonchi or crackles. No accessory muscle use. GASTROINTESTINAL: Abdomen soft, non-tender, nondistended. MUSCULOSKELETAL: No cyanosis, or edema. PSYCHIATRIC: Flat affect. Patient did not evidence overt signs of depression and or anxiety. Procedures 06/17/17 intubation 06/17/17 CPR 06/17/17 right femoral arterial catheter placement 06/18/17 right IJ central line placement 06/22/17 fiberoptic bronchoscopy 06/24/17 right axillary arterial catheter placement 06/24/17 tracheostomy, bronchoscopy Medications and IVs Current Medications Medications (Trade) Dose Ordered Sig/Ashok Route Start Time Stop Time Status Last Admin (Narcan Inj) 0.4 mg UNSCH PRN IV 06/14/17 04:30 (Topamax) 100 mg DAILY PO 06/14/17 11:00 07/14/17 09:00 (Tylenol) 650 mg Q6H PRN PO 06/15/17 21:30 06/30/17 20:37 (Peridex 0.12% Liq) 15 ml BID@08,20 MT 06/17/17 20:00 07/14/17 08:00 (NS Flush) 2 ml UNSCH PRN IV FLUSH 06/17/17 14:15 (NS Flush) 2 ml BID IV FLUSH 06/17/17 21:00 07/14/17 08:38 (Protonix Inj) 40 mg DAILY IV 06/18/17 09:00 07/14/17 08:37 (Tears Naturale Opth Soln) 1 drop TID EACH EYE 06/17/17 18:00 07/14/17 12:56 (Zofran Inj) 4 mg Q6H PRN IV 06/17/17 14:15 06/22/17 08:22 (Albuterol Neb) 2.5 mg Q2HR NEB PRN INH 06/17/17 14:15 07/11/17 19:47 Miscellaneous Information 1 Q361D XX 06/17/17 14:15 (Chlorhexidine 2% Cloth) Taper DAILY@04 TOP 06/18/17 04:00 06/14/18 03:59 07/11/17 04:00 (Chlorhexidine 2% Cloth) 3 pack UNSCH PRN TOP 06/17/17 14:15 (Marilee-Colace) 1 tab BID PO 06/17/17 21:00 07/13/17 21:13 (Milk Of Magnesia Liq) 30 ml Q12H PRN PO 06/17/17 14:15 06/21/17 11:21 (Senokot) 17.2 mg Q12H PRN PO 06/17/17 14:15 (Dulcolax Supp) 10 mg DAILY PRN RECTAL 06/17/17 14:15 (Lactulose Liq) 30 ml DAILY PRN PO 06/17/17 14:15 06/21/17 11:21 (D50w (Vial) Inj) 50 ml UNSCH PRN IV 06/17/17 14:15 (Glucagon Inj) 1 mg UNSCH PRN OTHER 06/17/17 14:15 (NovoLIN R SUPPLEMENTAL SCALE) 1 Q6HR SQ 06/17/17 18:00 07/12/17 17:34 (Trandate Inj) 10 mg Q1HR PRN IV PUSH 06/18/17 08:45 07/12/17 21:33 (Apresoline Inj) 10 mg Q1HR PRN IV PUSH 06/18/17 08:45 07/13/17 00:43 (Nitroglycerin 2% Oint) 2 inch Q6HR PRN TOPICAL 06/18/17 08:45 06/18/17 13:00 (Lopressor Inj) 2.5 mg Q6H PRN IV PUSH 06/25/17 15:30 07/08/17 02:24 (Cordarone) 200 mg DAILY NG 06/29/17 11:00 07/14/17 08:36 ([place] 5-325 Mg) 1 tab Q6H PRN PO 06/29/17 18:00 07/07/17 23:24 (Morphine Inj) 2 mg Q3H PRN IV PUSH 06/29/17 18:00 06/29/17 18:12 (Morphine Inj) 4 mg Q3H PRN IV PUSH 06/29/17 18:00 07/10/17 03:54 (Bumex Inj) 1 mg BID@,18 IV PUSH 06/30/17 18:00 Future Hold 07/06/17 18:00 (Vasotec) 10 mg DAILY NG 07/01/17 09:00 Future Hold 07/05/17 08:50 (Lopressor) 25 mg Q6HR PO 07/07/17 18:00 07/14/17 12:00 (Levsin Inj) 0.25 mg Q4H PRN IV PUSH 07/10/17 23:00 (Cardizem) 30 mg QID PO 07/12/17 13:00 07/14/17 12:00 (Eliquis) 2.5 mg BID NG 07/12/17 21:00 07/14/17 08:37 (Reglan Inj) 5 mg Q8HR PRN IV PUSH 07/12/17 14:30 (Levsin) 0.25 mg Q4H PRN PO 07/14/17 11:00 Urinary Catheter: Yes Assessment to: Continue Anderson insert reason: Prolonged Immobilization A/P Problem List: (1) Hypotension ICD Code: I95.9 - Hypotension, unspecified Status: Acute (2) Symptomatic bradycardia ICD Code: R00.1 - Bradycardia, unspecified Status: Acute (3) CKD (chronic kidney disease), stage III ICD Code: N18.3 - Chronic kidney disease, stage 3 (moderate) Status: Chronic (4) Chronic systolic CHF (congestive heart failure) ICD Code: I50.22 - Chronic systolic (congestive) heart failure Status: Chronic (5) Atrial fibrillation ICD Code: I48.91 - Unspecified atrial fibrillation Status: Chronic (6) Acute worsening of stage 3 chronic kidney disease ICD Code: N18.3 - Chronic kidney disease, stage 3 (moderate) Status: Acute (7) Thrombocytopenia ICD Code: D69.6 - Thrombocytopenia, unspecified Status: Chronic Assessment and Plan In summary this is a 57-year-old male with complex comorbidities including ischemic heart disease, cardiomyopathy, chronic kidney disease, atrial fibrillation, status post cardiogenic shock and PEA cardiac arrest. Patient has had a prolonged ICU course. He has a trach. He is improving and have since moved to the floor. Continue rehabilitation efforts. He may be a candidate for Milian in a few days. Tachycardia: Improved with metoprolol. Acute kidney injury: Creatinine improving. Diabetes: Blood glucose well controlled over past 24 hours. Continue insulin regimen. Cardiogenic shock status post PEA cardiac arrest/Chronic systolic congestive heart failure: Clinically stable currently. Patient was followed by cardiology : Stable from a cardiology standpoint - EF less than 20%. Continue beta obdulio, FABRICE inhibitor, and diuretics. Atrial fibrillation: Rate controlled. Resume Eliquis had a lower dose 2.5 mg twice a day given renal failure. Continue amiodarone, metoprolol. Resp Failure, trached after bone marrow biopsy. Acute hypoxic respiratory failure: Status post mechanical ventilation. Tolerating T piece. Continue bronchodilators, supplemental oxygen. Trach management per pulmonology. - Patient does have a good amount of secretions. Levsin as needed Acute kidney injury superimposed on chronic kidney disease, stage III: BUN and creatinine improving. Avoid nephrotoxic medications. Appreciate nephrology recommendations. Anderson catheter in place. Seizure disorder: Continue Topamax. Thrombocytopenia: Appreciate hematology recommendations. Status post bone marrow biopsy. - Thrombocytopenia resolved. Morbid obesity, acute mild protein energy malnutrition: Patient took out NG tube. He is eating better. Continue diet per speech as tolerated. HCAP/aspiration pneumonia: Sputum culture 06/20 growing Enterobacter. Completed course of cefepime, Flagyl. Now off antibiotics. GI prophylaxis: Protonix. Diabetes mellitus: Monitor Accu-Cheks and cover with sliding scale insulin. DVT prophylaxis: Eliquis. Discussed with RN and Dr. Rodriguez Problem Qualifiers (1) Hypotension: Clayton Mccarty Jr. Jul 14, 2017 16:38
[2017-07-14] MEDS: HYOSCYAMINE 0.125 MG TAB PO PRN (21:33)
[2017-07-15] VITALS (32 sets, daily range): BP systolic 92–139; BP diastolic 51–90; PULSE 78–110; RESP 15–20; TEMP 97.2–99.2; O2SAT 98–100
[2017-07-15] MEDS: CHLORHEXIDINE GLUCONATE 2 % 1 PACK (2 CLOTHS) TOP SCH (04:00)
[2017-07-15] MEDS: METOPROLOL TARTRATE 25 MG TAB PO SCH ×5 (05:52→23:43)
[2017-07-15] MEDS: INSULIN NovoLIN REGULAR SUPPLEMENTAL SCALE SQ SCH ×4 (05:53→17:29)
[2017-07-15] MEDS: CHLORHEXIDINE 0.12% (ORAL KIT) 15 ML CUP MT SCH ×2 (08:00→20:00)
[2017-07-15] MEDS: APIXABAN 2.5 MG TABLET NG SCH ×2 (09:00→20:44)
[2017-07-15] MEDS: SODIUM CHLORIDE 0.9% FLUSH 10 ML FLUSH IV FLUSH SCH ×2 (09:00→20:44)
[2017-07-15] MEDS: DILTIAZEM HCL 30 MG TAB PO SCH ×4 (09:00→20:44)
[2017-07-15] MEDS: PANTOPRAZOLE SODIUM 40 MG VIAL IV SCH (09:00)
[2017-07-15] MEDS: DOCUSATE SODIUM 50 MG/SENNA 8.6 MG TAB PO SCH ×2 (09:00→20:44)
[2017-07-15] MEDS: AMIODARONE 200 MG TAB NG SCH (09:00)
[2017-07-15] MEDS: ARTIFICIAL TEARS OPTH SOLN 15 ML BTL EACH EYE SCH ×3 (09:00→17:28)
[2017-07-15] MEDS: TOPIRAMATE 100 MG TAB PO SCH (09:00)
[2017-07-15 09:17] LABS: POTASSIUM 4.1 MEQ/L (3.5-5.1)
[2017-07-15] MEDS: RESP: ALBUTEROL 2.5 MG/3 ML NEB (PRN) INH (13:05)
--- NOTE | 2017-07-15 15:23 | HHI.PR ---
Subjective Remarks Follow-up cardiogenic shock and respiratory failure. T piece in place. Patient examined. Pt receiving nursing care and on bedpan for bowel movement. Pt denied pain/discomfort. Pt gave "thumbs up" sign indicating he felt well. He denied fever, cough, nausea, vomiting, worsening shortness of breath. . Per nursing ([place]) patient with decreased secretions, Levsin administered over night. Nursing reported decreased secretions this shift. consequently pt has not needed to suctioned to the manfred degree as before. Objective Vitals Vital Signs Date Time Temp Pulse Resp B/P (MAP) Pulse Ox O2 Delivery O2 Flow Rate FiO2 07/15/17 14:00 107 07/15/17 13:08 99 Trach Collar 28 07/15/17 13:07 135/90 (105) 07/15/17 13:00 110 07/15/17 12:13 99 Trach Collar 6.00 28 07/15/17 12:00 102 07/15/17 11:25 97.2 79 20 94/59 (71) 98 07/15/17 11:00 97 07/15/17 10:00 106 07/15/17 09:00 100 35 07/15/17 09:00 104 07/15/17 08:00 96 07/15/17 07:35 99 BiPAP 35 07/15/17 07:30 97.6 78 15 122/70 (87) 100 07/15/17 07:00 107 07/15/17 07:00 Trach Collar 07/15/17 06:00 103 07/15/17 05:00 101 07/15/17 04:05 100 35 07/15/17 04:00 90 07/15/17 03:30 97.3 85 19 92/51 (65) 98 07/15/17 03:00 88 07/15/17 02:00 92 07/15/17 01:00 83 07/15/17 00:48 100 35 07/15/17 00:00 99 07/15/17 00:00 99.2 94 20 121/62 (81) 100 07/14/17 23:00 96 07/14/17 22:00 96 07/14/17 21:00 96 07/14/17 20:00 94 07/14/17 20:00 100 35 07/14/17 20:00 99.4 83 20 118/65 (82) 100 07/14/17 19:40 100 35 07/14/17 19:00 86 07/14/17 18:00 94 07/14/17 17:00 100 07/14/17 16:15 100 07/14/17 16:00 93 I/O 07/14/17 07/14/17 07/14/17 07/15/17 07/15/17 07/15/17 07:00 15:00 23:00 07:00 15:00 23:00 Intake Total 480 ml 400 ml 720 ml Output Total 725 ml 850 ml 550 ml Balance -245 ml -450 ml 170 ml Intake Oral 480 ml 400 ml 720 ml Output Urine Total 725 ml 850 ml 550 ml # Bowel Movements 1 0 Result Diagram: 07/14/17 0745 07/15/17 0844 Objective Remarks GENERAL: Pt encountered laying a bed, awake and alert throughout visit interacting with RN's and clinician, t-piece in place. SKIN: Warm and dry. HEAD: Normocephalic. EYES: No scleral icterus. No injection or drainage. NECK: Supple, trachea midline. No lymphadenopathy. CARDIOVASCULAR: Irregularly irregular rhythm with regular rate without murmurs, gallops, or rubs. RESPIRATORY: Breath sounds equal bilaterally. No wheezes rhonchi or crackles. No accessory muscle use. GASTROINTESTINAL: Abdomen soft, non-tender, nondistended. MUSCULOSKELETAL: No cyanosis, or edema. PSYCHIATRIC: Mood and affect appropriate. Patient did not evidence overt signs of depression and or anxiety. Pt communicated through hand gestures and did speak, limiting his conversation to short sentences. Procedures 06/17/17 intubation 06/17/17 CPR 06/17/17 right femoral arterial catheter placement 06/18/17 right IJ central line placement 06/22/17 fiberoptic bronchoscopy 06/24/17 right axillary arterial catheter placement 06/24/17 tracheostomy, bronchoscopy Medications and IVs Current Medications Medications (Trade) Dose Ordered Sig/Ashok Route Start Time Stop Time Status Last Admin (Narcan Inj) 0.4 mg UNSCH PRN IV 06/14/17 04:30 (Topamax) 100 mg DAILY PO 06/14/17 11:00 07/15/17 09:00 (Tylenol) 650 mg Q6H PRN PO 06/15/17 21:30 06/30/17 20:37 (Peridex 0.12% Liq) 15 ml BID@08,20 MT 06/17/17 20:00 07/14/17 08:00 (NS Flush) 2 ml UNSCH PRN IV FLUSH 06/17/17 14:15 (NS Flush) 2 ml BID IV FLUSH 06/17/17 21:00 07/15/17 09:00 (Protonix Inj) 40 mg DAILY IV 06/18/17 09:00 07/15/17 09:00 (Tears Naturale Opth Soln) 1 drop TID EACH EYE 06/17/17 18:00 07/15/17 13:01 (Zofran Inj) 4 mg Q6H PRN IV 06/17/17 14:15 06/22/17 08:22 (Albuterol Neb) 2.5 mg Q2HR NEB PRN INH 06/17/17 14:15 07/15/17 13:05 Miscellaneous Information 1 Q361D XX 06/17/17 14:15 (Chlorhexidine 2% Cloth) Taper DAILY@04 TOP 06/18/17 04:00 06/14/18 03:59 07/11/17 04:00 (Chlorhexidine 2% Cloth) 3 pack UNSCH PRN TOP 06/17/17 14:15 (Marilee-Colace) 1 tab BID PO 06/17/17 21:00 07/15/17 09:00 (Milk Of Magnesia Liq) 30 ml Q12H PRN PO 06/17/17 14:15 06/21/17 11:21 (Senokot) 17.2 mg Q12H PRN PO 06/17/17 14:15 (Dulcolax Supp) 10 mg DAILY PRN RECTAL 06/17/17 14:15 (Lactulose Liq) 30 ml DAILY PRN PO 06/17/17 14:15 06/21/17 11:21 (D50w (Vial) Inj) 50 ml UNSCH PRN IV 06/17/17 14:15 (Glucagon Inj) 1 mg UNSCH PRN OTHER 06/17/17 14:15 (NovoLIN R SUPPLEMENTAL SCALE) 1 Q6HR SQ 06/17/17 18:00 07/12/17 17:34 (Trandate Inj) 10 mg Q1HR PRN IV PUSH 06/18/17 08:45 07/12/17 21:33 (Apresoline Inj) 10 mg Q1HR PRN IV PUSH 06/18/17 08:45 07/13/17 00:43 (Nitroglycerin 2% Oint) 2 inch Q6HR PRN TOPICAL 06/18/17 08:45 06/18/17 13:00 (Lopressor Inj) 2.5 mg Q6H PRN IV PUSH 06/25/17 15:30 07/08/17 02:24 (Cordarone) 200 mg DAILY NG 06/29/17 11:00 07/15/17 09:00 ([place] 5-325 Mg) 1 tab Q6H PRN PO 06/29/17 18:00 07/07/17 23:24 (Morphine Inj) 2 mg Q3H PRN IV PUSH 06/29/17 18:00 06/29/17 18:12 (Morphine Inj) 4 mg Q3H PRN IV PUSH 06/29/17 18:00 07/10/17 03:54 (Bumex Inj) 1 mg BID@ IV PUSH 06/30/17 18:00 Future Hold 07/06/17 18:00 (Vasotec) 10 mg DAILY NG 07/01/17 09:00 Future Hold 07/05/17 08:50 (Lopressor) 25 mg Q6HR PO 07/07/17 18:00 07/15/17 13:00 (Levsin Inj) 0.25 mg Q4H PRN IV PUSH 07/10/17 23:00 (Cardizem) 30 mg QID PO 07/12/17 13:00 07/15/17 13:00 (Eliquis) 2.5 mg BID NG 07/12/17 21:00 07/15/17 09:00 (Reglan Inj) 5 mg Q8HR PRN IV PUSH 07/12/17 14:30 (Levsin) 0.25 mg Q4H PRN PO 07/14/17 11:00 07/14/17 21:33 Urinary Catheter: Yes Assessment to: Continue Anderson insert reason: Prolonged Immobilization A/P Problem List: (1) Hypotension ICD Code: I95.9 - Hypotension, unspecified Status: Acute (2) Symptomatic bradycardia ICD Code: R00.1 - Bradycardia, unspecified Status: Acute (3) CKD (chronic kidney disease), stage III ICD Code: N18.3 - Chronic kidney disease, stage 3 (moderate) Status: Chronic (4) Chronic systolic CHF (congestive heart failure) ICD Code: I50.22 - Chronic systolic (congestive) heart failure Status: Chronic (5) Atrial fibrillation ICD Code: I48.91 - Unspecified atrial fibrillation Status: Chronic (6) Acute worsening of stage 3 chronic kidney disease ICD Code: N18.3 - Chronic kidney disease, stage 3 (moderate) Status: Acute (7) Thrombocytopenia ICD Code: D69.6 - Thrombocytopenia, unspecified Status: Chronic Assessment and Plan In summary this is a 57-year-old male with complex comorbidities including ischemic heart disease, cardiomyopathy, chronic kidney disease, atrial fibrillation, status post cardiogenic shock and PEA cardiac arrest. Patient has had a prolonged ICU course. He has a trach. He is improving and have since moved to the floor. Continue rehabilitation efforts. He may be a candidate for Milian in a few days. Acute kidney injury: Creatinine improving. Now at 1.61 (last level was 2.04 on 07/12). Per nephrology, baseline is between 1.4-1.7. Diabetes: Blood glucose continues to be well controlled over past 24 hours, no supplemental insulin required. Continue insulin regimen. Cardiogenic shock status post PEA cardiac arrest/Chronic systolic congestive heart failure: Clinically stable currently. Patient was followed by cardiology : Stable from a cardiology standpoint - EF less than 20%. Continue beta obdulio, FABRICE inhibitor, and diuretics. Atrial fibrillation: Rate controlled. Resume Eliquis had a lower dose 2.5 mg twice a day given renal failure. Continue amiodarone, metoprolol. Resp Failure, trached after bone marrow biopsy. Acute hypoxic respiratory failure: Status post mechanical ventilation. Tolerating T piece. Continue bronchodilators, supplemental oxygen. Trach management per pulmonology. - Patient does have a good amount of secretions. Levsin as needed Acute kidney injury superimposed on chronic kidney disease, stage III: BUN and creatinine improving. Avoid nephrotoxic medications. Appreciate nephrology recommendations. Anderson catheter in place. Seizure disorder: Continue Topamax. Thrombocytopenia: Appreciate hematology recommendations. Status post bone marrow biopsy. - Thrombocytopenia resolved. Morbid obesity, acute mild protein energy malnutrition: Patient took out NG tube. He is eating better. Continue diet per speech as tolerated. HCAP/aspiration pneumonia: Sputum culture 06/20 growing Enterobacter. Completed course of cefepime, Flagyl. Now off antibiotics. GI prophylaxis: Protonix. Diabetes mellitus: Monitor Accu-Cheks and cover with sliding scale insulin. DVT prophylaxis: Eliquis. Discussed with RN and Dr. Rodriguez Problem Qualifiers (1) Hypotension: Clayton Mccarty Jr. Jul 15, 2017 15:22
--- NOTE | 2017-07-15 15:51 | HHI.NPPN ---
Subjective History of Present Illness 57-year-old -[place] male with past medical history of seizure disorder, ischemic heart disease, cardiomyopathy, chronic kidney disease, hypertension, diabetes mellitus, atrial fibrillation who was admitted more than three weeks ago for shortness of breath. I was called to see the patient for elevated BUN and creatinine. The patient has a known history of chronic kidney disease and it seems like his baseline creatinine has been in the range of 1.4 to 1.7. Additional Remarks Patient remain with Trach. and T-Piece, eating and feeling much better, clinically same. Review of Systems Respiratory Lungs: SOB, Cough, Sputum, Wheeze Cardiovascular Cardiac: Edema, GATES Objective Data Data Vital Signs Date Time Temp Pulse Resp B/P (MAP) Pulse Ox O2 Delivery O2 Flow Rate FiO2 07/15/17 14:00 107 07/15/17 13:08 99 Trach Collar 28 07/15/17 13:07 135/90 (105) 07/15/17 13:00 110 07/15/17 12:13 99 Trach Collar 6.00 28 07/15/17 12:00 102 07/15/17 11:25 97.2 79 20 94/59 (71) 98 07/15/17 11:00 97 07/15/17 10:00 106 07/15/17 09:00 100 35 07/15/17 09:00 104 07/15/17 08:00 96 07/15/17 07:35 99 BiPAP 35 07/15/17 07:30 97.6 78 15 122/70 (87) 100 07/15/17 07:00 107 07/15/17 07:00 Trach Collar 07/15/17 06:00 103 07/15/17 05:00 101 07/15/17 04:05 100 35 07/15/17 04:00 90 07/15/17 03:30 97.3 85 19 92/51 (65) 98 07/15/17 03:00 88 07/15/17 02:00 92 07/15/17 01:00 83 07/15/17 00:48 100 35 07/15/17 00:00 99 07/15/17 00:00 99.2 94 20 121/62 (81) 100 07/14/17 23:00 96 07/14/17 22:00 96 07/14/17 21:00 96 07/14/17 20:00 94 07/14/17 20:00 100 35 07/14/17 20:00 99.4 83 20 118/65 (82) 100 07/14/17 19:40 100 35 07/14/17 19:00 86 07/14/17 18:00 94 07/14/17 17:00 100 07/14/17 16:15 100 07/14/17 16:00 93 -: 07/14/17 0745 07/15/17 0844 Physical Exam General Appearance: No Acute Distress, Comfortable Eyes Eye Exam: Pupils Equal Throat Throat Exam: Oral Mucosa [place] & Moist Neck Neck Exam: Neck Supple Pulmonary Resp Exam: Crackles, Rhonchi, Sputum, Decreased Bases, Diminished Breath Sounds Gastrointestinal/Abdomen GI Exam: Soft, Non-Tender, Bowel Sounds Present, Distended Extremeties Extremities Exam: Moderate Edema, Pitting Edema, Dependent Edema Neurologic Neuro Exam: Alert, Awake, Oriented Psychiatric Psych Exam: Appropriate Responses Assessment/Plan Assessment Summary: DENNYS/Acute Renal Failure, CKD Stage III Problem List: (1) Acute kidney injury ICD Codes: N17.9 - Acute kidney failure, unspecified (2) CHF (congestive heart failure) ICD Codes: I50.9 - Heart failure, unspecified Status: Resolved (3) DM (diabetes mellitus) ICD Codes: E11.9 - Type 2 diabetes mellitus without complications Status: Chronic (4) Peripheral edema ICD Codes: R60.9 - Edema, unspecified Status: Acute (5) Atrial fibrillation ICD Codes: I48.91 - Unspecified atrial fibrillation Status: Chronic (6) Atrial fibrillation with RVR ICD Codes: I48.91 - Unspecified atrial fibrillation Status: Resolved (7) CKD (chronic kidney disease), stage III ICD Codes: N18.3 - Chronic kidney disease, stage 3 (moderate) Status: Chronic Plan He has chronic kidney disease and the baseline Creatinine is close to 1.7-1.8. Most likely has underlying Hypertensive or renovascular disease. K increased again, give Kayexalate. Continue to hold diuretics. Urine out put is adequate. Possibly has ATN causing DENNYS. Follow the urine out put and BMP. Avoid Nephrotoxins. Creatinine improve, now 1.6. K is normal, off diuretics. Avoid Nephrotoxins and follow the BMP. Rajan Hoyt MD Jul 15, 2017 15:51
--- NOTE | 2017-07-15 15:52 | HHI.PR ---
Subjective Remarks Alert and , stable. On a T bar at 30 %.Was on BiPAP last nite. Trach secretions are clear.Passed swallow test. On a pureed diet. Objective Vital Signs Date Time Temp Pulse Resp B/P (MAP) Pulse Ox O2 Delivery O2 Flow Rate FiO2 07/15/17 14:00 107 07/15/17 13:08 99 Trach Collar 28 07/15/17 13:07 135/90 (105) 07/15/17 13:00 110 07/15/17 12:13 99 Trach Collar 6.00 28 07/15/17 12:00 102 07/15/17 11:25 97.2 79 20 94/59 (71) 98 07/15/17 11:00 97 07/15/17 10:00 106 07/15/17 09:00 100 35 07/15/17 09:00 104 07/15/17 08:00 96 07/15/17 07:35 99 BiPAP 35 07/15/17 07:30 97.6 78 15 122/70 (87) 100 07/15/17 07:00 107 07/15/17 07:00 Trach Collar 07/15/17 06:00 103 07/15/17 05:00 101 07/15/17 04:05 100 35 07/15/17 04:00 90 07/15/17 03:30 97.3 85 19 92/51 (65) 98 07/15/17 03:00 88 07/15/17 02:00 92 07/15/17 01:00 83 07/15/17 00:48 100 35 07/15/17 00:00 99 07/15/17 00:00 99.2 94 20 121/62 (81) 100 07/14/17 23:00 96 07/14/17 22:00 96 07/14/17 21:00 96 07/14/17 20:00 94 07/14/17 20:00 100 35 07/14/17 20:00 99.4 83 20 118/65 (82) 100 07/14/17 19:40 100 35 07/14/17 19:00 86 07/14/17 18:00 94 07/14/17 17:00 100 07/14/17 16:15 100 07/14/17 16:00 93 I/O 9/10/17 907/14/17 07/15/17 07/15/17 07/15/17 07:00 15:00 23:00 07:00 15:00 23:00 Intake Total 480 ml 400 ml 720 ml Output Total 725 ml 850 ml 550 ml Balance -245 ml -450 ml 170 ml Intake Oral 480 ml 400 ml 720 ml Output Urine Total 725 ml 850 ml 550 ml # Bowel Movements 1 0 Result Diagram: 07/14/17 0745 07/15/17 0844 Objective Remarks This is a moderately obese elderly man with a trach HEENT: Head normocephalic. Pupils reactive and enlarged. Throat is clear . Nasal mucosa is clear. Neck: Supple with trach tube in place. No thyromegaly. Chest: Distant breath sounds with occasional crackles at the lung bases.Occ Wheeze Heart: The heart sounds were regular, S1-S2. No murmur or S3. Abdomen: Soft and benign. No masses. No organomegaly or tenderness. Bowel sounds active. Extremities: No edema. Reflexes 1+ with no gross motor deficits. Neurologic: Moves all .he is oriented and talking. Skin: No lesions observed. Assessment and Plan Assessment and Plan IMPRESSION 1. Chronic respiratory failure. 2. Chronic kidney disease stage III. 3. Atrial fibrillation and ASHD. 4. History of diabetes mellitus. 5. Hypertension. 6. S/P Trach Plan: 1. Wean FIO2 to keep sat >92. 2. Cont CPAP at HS for Sleep Apnea. 3. Nebs qid , dioneb 4. Cont antibiotics. 5. PM Valve to talk with supervision 6. Chest Xray in am . 7. PT and OT. 8. Transfer to rehab. Kurtis Patiño MD Jul 15, 2017 15:52
[2017-07-16] VITALS (19 sets, daily range): BP systolic 101–140; BP diastolic 76–89; PULSE 84–108; RESP 18–24; TEMP 97.9–99.4; O2SAT 97–100
[2017-07-16] MEDS: CHLORHEXIDINE GLUCONATE 2 % 1 PACK (2 CLOTHS) TOP SCH (04:00)
[2017-07-16] MEDS: INSULIN NovoLIN REGULAR SUPPLEMENTAL SCALE SQ SCH ×4 (05:39→18:00)
[2017-07-16] MEDS: METOPROLOL TARTRATE 25 MG TAB PO SCH ×4 (05:39→23:17)
[2017-07-16] MEDS: CHLORHEXIDINE 0.12% (ORAL KIT) 15 ML CUP MT SCH ×2 (08:00→20:00)
[2017-07-16] MEDS: ARTIFICIAL TEARS OPTH SOLN 15 ML BTL EACH EYE SCH ×3 (09:00→18:00)
[2017-07-16] MEDS: PANTOPRAZOLE SODIUM 40 MG VIAL IV SCH (09:28)
[2017-07-16] MEDS: SODIUM CHLORIDE 0.9% FLUSH 10 ML FLUSH IV FLUSH SCH ×2 (09:28→20:34)
[2017-07-16] MEDS: AMIODARONE 200 MG TAB NG SCH (09:28)
[2017-07-16] MEDS: DILTIAZEM HCL 30 MG TAB PO SCH ×4 (09:29→20:33)
[2017-07-16] MEDS: TOPIRAMATE 100 MG TAB PO SCH (09:29)
[2017-07-16] MEDS: DOCUSATE SODIUM 50 MG/SENNA 8.6 MG TAB PO SCH ×2 (09:29→20:33)
[2017-07-16] MEDS: APIXABAN 2.5 MG TABLET NG SCH ×2 (09:29→20:33)
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
--- NOTE | 2017-07-16 15:03 | HHI.PR ---
Subjective Remarks Alert and , stable. On a T bar at 28 %.Was on BiPAP last nite. Trach secretions are [place]. On a soft diet. Objective Vital Signs Date Time Temp Pulse Resp B/P (MAP) Pulse Ox O2 Delivery O2 Flow Rate FiO2 07/16/17 14:34 97 28 07/16/17 11:00 97.9 89 22 136/88 (104) 98 07/16/17 08:00 Trach Collar 07/16/17 07:45 98.3 91 24 119/77 (91) 99 07/16/17 06:00 108 07/16/17 05:00 107 07/16/17 04:55 100 Trach Collar 5.00 28 07/16/17 04:01 99.4 89 18 139/89 (106) 100 07/16/17 04:00 89 07/16/17 03:00 103 07/16/17 02:00 94 07/16/17 01:05 99 35 07/16/17 01:00 90 07/16/17 00:00 99.4 88 18 140/81 (100) 100 07/16/17 00:00 88 07/15/17 23:00 87 07/15/17 22:14 100 35 07/15/17 22:00 86 07/15/17 21:00 90 07/15/17 20:00 100 Trach Collar 28 07/15/17 20:00 86 07/15/17 20:00 98.0 81 18 127/88 (101) 100 07/15/17 19:00 84 07/15/17 17:00 100 07/15/17 16:00 85 I/O 07/15/17 07/15/17 07/15/17 07/16/17 07/16/17 07/16/17 07:00 15:00 23:00 07:00 15:00 23:00 Intake Total 720 ml 450 ml 480 ml Output Total 550 ml 550 ml 650 ml Balance 170 ml -100 ml -170 ml Intake Oral 720 ml 450 ml 480 ml Output Urine Total 550 ml 550 ml 650 ml # Bowel Movements 0 1 Result Diagram: 07/14/17 0745 07/15/17 0844 Objective Remarks This is a moderately obese mid aged man with a trach HEENT: Head normocephalic. Pupils reactive and enlarged. Throat is clear . Nasal mucosa is clear. Neck: Supple with trach tube in place. No thyromegaly. Chest: Distant breath sounds with Occ Wheeze scattered Heart: The heart sounds were regular, S1-S2. No murmur or S3. Abdomen: Soft and benign. No masses. No organomegaly or tenderness. Bowel sounds active. Extremities: No edema. Reflexes 1+ with no gross motor deficits. Neurologic: Moves all .he is oriented . Skin: No lesions observed. Assessment and Plan Assessment and Plan IMPRESSION 1. Chronic respiratory failure. 2. Chronic kidney disease stage III. 3. Atrial fibrillation and ASHD. 4. History of diabetes mellitus. 5. Hypertension. 6. S/P Trach Plan: 1. Wean FIO2 to keep sat >92. 2. Cont CPAP at HS for Sleep Apnea. 3. Nebs qid , dioneb 4. Cont antibiotics. 5. PM Valve to talk with supervision 6. Labs in am. 7. PT and OT. 8. Transfer to rehab soon. Kurtis Patiño MD Jul 16, 2017 15:03
--- NOTE | 2017-07-16 15:44 | HHI.NPPN ---
Subjective History of Present Illness 57-year-old -Romanian male with past medical history of seizure disorder, ischemic heart disease, cardiomyopathy, chronic kidney disease, hypertension, diabetes mellitus, atrial fibrillation who was admitted more than three weeks ago for shortness of breath. I was called to see the patient for elevated BUN and creatinine. The patient has a known history of chronic kidney disease and it seems like his baseline creatinine has been in the range of 1.4 to 1.7. Additional Remarks Patient remain with Trach. and T-Piece, feeling better, not in distress. Review of Systems Respiratory Lungs: SOB, Cough, Sputum, Wheeze Cardiovascular Cardiac: Edema, GATES Objective Data Data Vital Signs Date Time Temp Pulse Resp B/P (MAP) Pulse Ox O2 Delivery O2 Flow Rate FiO2 07/16/17 14:34 97 28 07/16/17 11:00 97.9 89 22 136/88 (104) 98 07/16/17 08:00 Trach Collar 07/16/17 07:45 98.3 91 24 119/77 (91) 99 07/16/17 06:00 108 07/16/17 05:00 107 07/16/17 04:55 100 Trach Collar 5.00 28 07/16/17 04:01 99.4 89 18 139/89 (106) 100 07/16/17 04:00 89 07/16/17 03:00 103 07/16/17 02:00 94 07/16/17 01:05 99 35 07/16/17 01:00 90 07/16/17 00:00 99.4 88 18 140/81 (100) 100 07/16/17 00:00 88 07/15/17 23:00 87 07/15/17 22:14 100 35 07/15/17 22:00 86 07/15/17 21:00 90 07/15/17 20:00 100 Trach Collar 28 07/15/17 20:00 86 07/15/17 20:00 98.0 81 18 127/88 (101) 100 07/15/17 19:00 84 07/15/17 17:00 100 07/15/17 16:00 85 -: 07/14/17 0745 07/15/17 0844 Physical Exam General Appearance: No Acute Distress, Comfortable Eyes Eye Exam: Pupils Equal Throat Throat Exam: Oral Mucosa [place] & Moist Neck Neck Exam: Neck Supple Pulmonary Resp Exam: Crackles, Rhonchi, Sputum, Decreased Bases, Diminished Breath Sounds Gastrointestinal/Abdomen GI Exam: Soft, Non-Tender, Bowel Sounds Present, Distended Extremeties Extremities Exam: Moderate Edema, Pitting Edema, Dependent Edema Neurologic Neuro Exam: Alert, Awake, Oriented Psychiatric Psych Exam: Appropriate Responses Assessment/Plan Assessment Summary: DENNYS/Acute Renal Failure, CKD Stage III Problem List: (1) Acute kidney injury ICD Codes: N17.9 - Acute kidney failure, unspecified (2) CHF (congestive heart failure) ICD Codes: I50.9 - Heart failure, unspecified Status: Resolved (3) DM (diabetes mellitus) ICD Codes: E11.9 - Type 2 diabetes mellitus without complications Status: Chronic (4) Peripheral edema ICD Codes: R60.9 - Edema, unspecified Status: Acute (5) Atrial fibrillation ICD Codes: I48.91 - Unspecified atrial fibrillation Status: Chronic (6) Atrial fibrillation with RVR ICD Codes: I48.91 - Unspecified atrial fibrillation Status: Resolved (7) CKD (chronic kidney disease), stage III ICD Codes: N18.3 - Chronic kidney disease, stage 3 (moderate) Status: Chronic Plan He has chronic kidney disease and the baseline Creatinine is close to 1.7-1.8. Most likely has underlying Hypertensive or renovascular disease. K increased again, give Kayexalate. Continue to hold diuretics. Urine out put is adequate. Possibly has ATN causing DENNYS. Follow the urine out put and BMP. No new BMP. Rajan Hoyt MD Jul 16, 2017 15:44
--- NOTE | 2017-07-16 17:56 | HHI.PR ---
Subjective Remarks Follow-up on patient with cardiogenic shock and respiratory failure. Patient seen and examined today. Patient denies any complaints. She denies any fever or chills. Denies any chest pain or shortness of breath. Denies any nausea, vomiting or abdominal pain. Objective Vitals Vital Signs Date Time Temp Pulse Resp B/P (MAP) Pulse Ox O2 Delivery O2 Flow Rate FiO2 07/16/17 15:00 98.1 93 24 130/80 (97) 99 07/16/17 14:34 97 28 07/16/17 11:00 97.9 89 22 136/88 (104) 98 07/16/17 08:00 Trach Collar 07/16/17 07:45 98.3 91 24 119/77 (91) 99 07/16/17 06:00 108 07/16/17 05:00 107 07/16/17 04:55 100 Trach Collar 5.00 28 07/16/17 04:01 99.4 89 18 139/89 (106) 100 07/16/17 04:00 89 07/16/17 03:00 103 07/16/17 02:00 94 07/16/17 01:05 99 35 07/16/17 01:00 90 07/16/17 00:00 99.4 88 18 140/81 (100) 100 07/16/17 00:00 88 07/15/17 23:00 87 07/15/17 22:14 100 35 07/15/17 22:00 86 07/15/17 21:00 90 07/15/17 20:00 100 Trach Collar 28 07/15/17 20:00 86 07/15/17 20:00 98.0 81 18 127/88 (101) 100 07/15/17 19:00 84 I/O 07/15/17 07/15/17 07/15/17 07/16/17 07/16/17 07/16/17 07:00 15:00 23:00 07:00 15:00 23:00 Intake Total 720 ml 450 ml 480 ml Output Total 550 ml 550 ml 650 ml Balance 170 ml -100 ml -170 ml Intake Oral 720 ml 450 ml 480 ml Output Urine Total 550 ml 550 ml 650 ml # Bowel Movements 0 1 Result Diagram: 07/14/17 0745 07/15/17 0844 Imaging Last Impressions Chest X-Ray 07/14/17 0600 Signed Impressions: Service Date/Time: Friday, July 14, 2017 02:49 - CONCLUSION: No significant change mild left base consolidation. Kushal Horta MD Abdomen X-Ray 07/08/17 0000 Signed Impressions: Service Date/Time: Saturday, July 08, 2017 11:20 - CONCLUSION: NG tube as above. Florentino Herrera MD Head CT 06/18/17 0000 Signed Impressions: Service Date/Time: Sunday, June 18, 2017 00:48 - CONCLUSION: Negative exam. No evidence of intracranial hemorrhage. Ronni Capps MD Bone Biopsy CT 06/17/17 0000 Signed Impressions: Service Date/Time: Saturday, June 17, 2017 12:35 - CONCLUSION: Bone marrow aspiration and biopsy complicated by intubation and resuscitation. Pathology is pending. Rell Valentin MD FACR Abdomen Ultrasound 06/16/17 0000 Signed Impressions: Service Date/Time: Friday, June 16, 2017 18:13 - CONCLUSION: Limited sonographic windows due to patient body habitus and bowel gas. Right renal cyst. Visualized portions of the abdomen otherwise within normal limits. Jose Bruno MD Lower Extremity Ultrasound 06/14/17 0000 Signed Impressions: Service Date/Time: Wednesday, June 14, 2017 08:15 - CONCLUSION: Normal examination. Kushal Camacho MD Objective Remarks GENERAL: Well-nourished, well-developed patient in NAD. Awake and alert. Lying in hospital bed. T piece in place with tannish secretions. SKIN: Warm and dry. No rash. HEAD: Normocephalic. Atraumatic. EYES: EOMI. No scleral icterus. No injection or drainage. ENT: No nasal bleeding or discharge. Mucous membranes pink and moist. NECK: Supple. Trachea midline. CARDIOVASCULAR: Irregularly irregular rhythm. No murmur appreciated. RESPIRATORY: No accessory muscle use. Upper airway sounds noted to anterior auscultation. Breath sounds equal bilaterally. GASTROINTESTINAL: Abdomen soft, non-tender, nondistended. Normoactive bowel sounds x4. MUSCULOSKELETAL: No obvious deformities. Extremities without clubbing, cyanosis , or edema. NEUROLOGICAL: Awake and alert. Able to move all extremities. Normal speech. Procedures 06/17/17 intubation 06/17/17 CPR 06/17/17 right femoral arterial catheter placement 06/18/17 right IJ central line placement 06/22/17 fiberoptic bronchoscopy 06/24/17 right axillary arterial catheter placement 06/24/17 tracheostomy, bronchoscopy Medications and IVs Current Medications Medications (Trade) Dose Ordered Sig/Ashok Route Start Time Stop Time Status Last Admin (Narcan Inj) 0.4 mg UNSCH PRN IV 06/14/17 04:30 (Topamax) 100 mg DAILY PO 06/14/17 11:00 07/16/17 09:29 (Tylenol) 650 mg Q6H PRN PO 06/15/17 21:30 06/30/17 20:37 (Peridex 0.12% Liq) 15 ml BID@08,20 MT 06/17/17 20:00 07/14/17 08:00 (NS Flush) 2 ml UNSCH PRN IV FLUSH 06/17/17 14:15 (NS Flush) 2 ml BID IV FLUSH 06/17/17 21:00 07/16/17 09:28 (Protonix Inj) 40 mg DAILY IV 06/18/17 09:00 07/16/17 09:28 (Tears Naturale Opth Soln) 1 drop TID EACH EYE 06/17/17 18:00 07/15/17 17:28 (Zofran Inj) 4 mg Q6H PRN IV 06/17/17 14:15 06/22/17 08:22 (Albuterol Neb) 2.5 mg Q2HR NEB PRN INH 06/17/17 14:15 07/15/17 13:05 Miscellaneous Information 1 Q361D XX 06/17/17 14:15 (Chlorhexidine 2% Cloth) Taper DAILY@04 TOP 06/18/17 04:00 06/14/18 03:59 07/11/17 04:00 (Chlorhexidine 2% Cloth) 3 pack UNSCH PRN TOP 06/17/17 14:15 (Marilee-Colace) 1 tab BID PO 06/17/17 21:00 07/16/17 09:29 (Milk Of Magnesia Liq) 30 ml Q12H PRN PO 06/17/17 14:15 06/21/17 11:21 (Senokot) 17.2 mg Q12H PRN PO 06/17/17 14:15 (Dulcolax Supp) 10 mg DAILY PRN RECTAL 06/17/17 14:15 (Lactulose Liq) 30 ml DAILY PRN PO 06/17/17 14:15 06/21/17 11:21 (D50w (Vial) Inj) 50 ml UNSCH PRN IV 06/17/17 14:15 (Glucagon Inj) 1 mg UNSCH PRN OTHER 06/17/17 14:15 (NovoLIN R SUPPLEMENTAL SCALE) 1 Q6HR SQ 06/17/17 18:00 07/12/17 17:34 (Trandate Inj) 10 mg Q1HR PRN IV PUSH 06/18/17 08:45 07/12/17 21:33 (Apresoline Inj) 10 mg Q1HR PRN IV PUSH 06/18/17 08:45 07/13/17 00:43 (Nitroglycerin 2% Oint) 2 inch Q6HR PRN TOPICAL 06/18/17 08:45 06/18/17 13:00 (Lopressor Inj) 2.5 mg Q6H PRN IV PUSH 06/25/17 15:30 07/08/17 02:24 (Cordarone) 200 mg DAILY NG 06/29/17 11:00 07/16/17 09:28 ([place] 5-325 Mg) 1 tab Q6H PRN PO 06/29/17 18:00 07/07/17 23:24 (Morphine Inj) 2 mg Q3H PRN IV PUSH 06/29/17 18:00 06/29/17 18:12 (Morphine Inj) 4 mg Q3H PRN IV PUSH 06/29/17 18:00 07/10/17 03:54 (Bumex Inj) 1 mg BID@18 IV PUSH 06/30/17 18:00 Future Hold 07/06/17 18:00 (Vasotec) 10 mg DAILY NG 07/01/17 09:00 Future Hold 07/05/17 08:50 (Lopressor) 25 mg Q6HR PO 07/07/17 18:00 07/16/17 12:34 (Levsin Inj) 0.25 mg Q4H PRN IV PUSH 07/10/17 23:00 (Cardizem) 30 mg QID PO 07/12/17 13:00 07/16/17 12:34 (Eliquis) 2.5 mg BID NG 07/12/17 21:00 07/16/17 09:29 (Reglan Inj) 5 mg Q8HR PRN IV PUSH 07/12/17 14:30 (Levsin) 0.25 mg Q4H PRN PO 07/14/17 11:00 07/14/17 21:33 A/P Problem List: (1) Hypotension ICD Code: I95.9 - Hypotension, unspecified Status: Acute (2) Symptomatic bradycardia ICD Code: R00.1 - Bradycardia, unspecified Status: Acute (3) CKD (chronic kidney disease), stage III ICD Code: N18.3 - Chronic kidney disease, stage 3 (moderate) Status: Chronic (4) Chronic systolic CHF (congestive heart failure) ICD Code: I50.22 - Chronic systolic (congestive) heart failure Status: Chronic (5) Atrial fibrillation ICD Code: I48.91 - Unspecified atrial fibrillation Status: Chronic (6) Acute worsening of stage 3 chronic kidney disease ICD Code: N18.3 - Chronic kidney disease, stage 3 (moderate) Status: Acute (7) Thrombocytopenia ICD Code: D69.6 - Thrombocytopenia, unspecified Status: Chronic Assessment and Plan 57-year-old male with complex comorbidities including ischemic heart disease, cardiomyopathy, chronic kidney disease, atrial fibrillation, status post cardiogenic shock and PEA cardiac arrest. Patient has had a prolonged ICU course. He has a trach. He is improving and has since moved to the floor. Continue rehabilitation efforts. Cardiogenic shock status post PEA cardiac arrest/Chronic systolic congestive heart failure: Clinically stable currently. Patient was followed by cardiology : Stable from a cardiology standpoint - EF less than 20%. Continue beta obdulio, FABRICE inhibitor, and diuretics. Atrial fibrillation: Rate controlled. Resume Eliquis had a lower dose 2.5 mg twice a day given renal failure. Continue amiodarone, metoprolol. Resp Failure, trached after bone marrow biopsy. Acute hypoxic respiratory failure: Status post mechanical ventilation. Tolerating T piece. Continue bronchodilators, supplemental oxygen. Trach management per pulmonology. Continue CPAP at night. Levsin prn secretions. Acute kidney injury superimposed on chronic kidney disease, stage III: BUN and creatinine improving - Cr 1.61 today. Avoid nephrotoxic medications. Appreciate nephrology recommendations. Baseline creatinine around 1.7-1.8. UOP is adequate. Anderson catheter in place. Continue following the BMP. Seizure disorder: Continue Topamax. Thrombocytopenia: Appreciate hematology recommendations. Status post bone marrow biopsy. - Thrombocytopenia resolved. Morbid obesity, acute mild protein energy malnutrition: Patient took out NG tube. He is eating better. Continue diet per speech as tolerated. HCAP/aspiration pneumonia: Sputum culture 06/20 growing Enterobacter. Completed course of cefepime, Flagyl. Now off antibiotics. Diabetes mellitus: Monitor Accu-Cheks and cover with sliding scale insulin. GI prophylaxis: Protonix. DVT prophylaxis: Eliquis. Discussed with patient and Dr. Rodriguez Discharge Planning Patient not a candidate for [facility]. Plan for SNF once cleared by specialty services. Problem Qualifiers (1) Hypotension: Fartun Weaver Jul 16, 2017 17:56
[2017-07-16] MEDS: HYOSCYAMINE 0.125 MG TAB PO PRN (20:34)
[2017-07-17] VITALS (26 sets, daily range): BP systolic 103–152; BP diastolic 56–85; PULSE 67–140; RESP 16–24; TEMP 98–100; O2SAT 97–100
[2017-07-17] MEDS: CHLORHEXIDINE GLUCONATE 2 % 1 PACK (2 CLOTHS) TOP SCH (04:00)
[2017-07-17] MEDS: METOPROLOL TARTRATE 25 MG TAB PO SCH ×3 (05:35→17:18)
--- NOTE | 2017-07-17 06:37 | RADRPT ---
EXAM DATE/TIME: 07/17/2017 05:33 [facility] COMPARISON: No previous studies available for comparison. INDICATIONS : Short of breath. MEDICAL HISTORY : A-fib. Hypercholesterolemia. Hypertension. Congestive heart failure. SURGICAL HISTORY : None. ENCOUNTER: Subsequent ACUITY: 3 weeks PAIN SCORE: 0/10 LOCATION: Bilateral chest FINDINGS: A single view of the chest demonstrates cardiomegaly. Tracheostomy in satisfactory position. Mild bas ilar atelectasis. No pneumothorax. CONCLUSION: 1. Cardiomegaly. Minimal basilar atelectasis. Tracheostomy in good position. Anderson Raymond MD on July 17, 2017 at 6:34 Board Certified Radiologist. This report was verified electronically.
[2017-07-17 07:14] LABS: AUTOMATED NEUTROPHIL # 7.4 TH/MM3 (1.8-7.7); BASOPHIL % 0.4 % (0.0-2.0); EOSINOPHIL # 0.6 TH/MM3 (0-0.4); EOSINOPHIL % 4.9 % (0.0-4.0); HEMATOCRIT 37.4 % (39.0-51.0); HEMO FLAGS DIFF FINAL; LYMPH % 19.1 % (9.0-44.0); LYMPHOCYTE # 2.2 TH/MM3 (1.0-4.8); MEAN CELL VOLUME 88.7 FL (80.0-100.0); MEAN CORPUSCULAR HEMOGLOBIN 29.3 PG (27.0-34.0); NEUT % 64.6 % (16.0-70.0); PLATELET COUNT 217 TH/MM3 (150-450); RED BLOOD COUNT 4.22 MIL/MM3 (4.50-5.90); RED CELL DISTRIBUTION WIDTH 13.5 % (11.6-17.2); WHITE BLOOD COUNT 11.5 TH/MM3 (4.0-11.0)
[2017-07-17 07:57] LABS: BICARBONATE 25.3 MEQ/L (21.0-32.0); MAGNESIUM 1.9 MG/DL (1.5-2.5); POTASSIUM 4.2 MEQ/L (3.5-5.1)
[2017-07-17] MEDS: CHLORHEXIDINE 0.12% (ORAL KIT) 15 ML CUP MT SCH (08:00)
[2017-07-17] MEDS: DOCUSATE SODIUM 50 MG/SENNA 8.6 MG TAB PO SCH ×2 (08:50→21:00)
[2017-07-17] MEDS: TOPIRAMATE 100 MG TAB PO SCH (08:50)
[2017-07-17] MEDS: APIXABAN 2.5 MG TABLET NG SCH ×2 (08:50→21:22)
[2017-07-17] MEDS: PANTOPRAZOLE SODIUM 40 MG VIAL IV SCH (08:51)
[2017-07-17] MEDS: SODIUM CHLORIDE 0.9% FLUSH 10 ML FLUSH IV FLUSH SCH ×2 (08:51→21:00)
[2017-07-17] MEDS: AMIODARONE 200 MG TAB NG SCH (08:51)
[2017-07-17] MEDS: DILTIAZEM HCL 30 MG TAB PO SCH ×2 (08:51→13:14)
[2017-07-17] MEDS: ARTIFICIAL TEARS OPTH SOLN 15 ML BTL EACH EYE SCH ×3 (08:52→17:18)
[2017-07-17] MEDS ORDERED: DILTIAZEM HCL 25 MG/5 ML VIAL IV PUSH ONE (11:00)
[2017-07-17] MEDS: DILTIAZEM INJ 125 MG in SODIUM CHLORIDE 0.9% INJ 100 ML IV PRN (11:30)
--- NOTE | 2017-07-17 11:56 | HHI.PR ---
Subjective Remarks Patient went into Afib with RVR again this morning. He reports feeling OK. No chest pain or increased in SOB. DW RN. Objective Vitals Vital Signs Date Time Temp Pulse Resp B/P (MAP) Pulse Ox O2 Delivery O2 Flow Rate FiO2 07/17/17 08:23 99 Trach Collar 28 07/17/17 07:00 98.0 67 16 112/75 (87) 100 07/17/17 06:00 91 07/17/17 05:00 88 07/17/17 04:00 77 07/17/17 04:00 98.1 77 22 103/56 (72) 99 07/17/17 04:00 Trach Collar 28 07/17/17 03:00 81 07/17/17 02:00 80 07/17/17 01:00 79 07/17/17 00:00 Trach Collar 28 07/17/17 00:00 81 07/17/17 00:00 98.0 81 24 105/80 (88) 99 07/16/17 23:00 84 07/16/17 22:41 100 Trach Collar 6.00 28 07/16/17 22:00 89 07/16/17 21:00 93 07/16/17 20:00 98.3 90 24 101/76 (84) 100 07/16/17 20:00 Trach Collar 07/16/17 20:00 90 07/16/17 15:00 98.1 93 24 130/80 (97) 99 07/16/17 14:34 97 28 I/O 07/16/17 07/16/17 07/16/17 07/17/17 07/17/17 07/17/17 07:00 15:00 23:00 07:00 15:00 23:00 Intake Total 480 ml 720 ml 250 ml Output Total 650 ml 500 ml 500 ml Balance -170 ml 220 ml -250 ml Intake Oral 480 ml 720 ml 240 ml IV Total 10 ml Output Urine Total 650 ml 500 ml 500 ml # Bowel Movements 1 1 Result Diagram: 07/17/1745 07/17/17 0645 Objective Remarks GENERAL: Morbidly obese, chronically ill-appearing male. Trached CARDIOVASCULAR: Normal rate and regular rhythm without murmurs, gallops, or rubs. RESPIRATORY: Trachea in place. Coarse breath sounds throughout. GASTROINTESTINAL: Morbidly obese. Hypoactive bowel sounds. Abdomen is soft, nontender. MUSCULOSKELETAL: Extremities with 2+ edema in bilateral lower extremities. NEURO: Awake. Alert. Able to mouth some words. PSYCH: Calm Procedures 06/17/17 intubation 06/17/17 CPR 06/17/17 right femoral arterial catheter placement 06/18/17 right IJ central line placement 06/22/17 fiberoptic bronchoscopy 06/24/17 right axillary arterial catheter placement 06/24/17 tracheostomy, bronchoscopy A/P Problem List: (1) Hypotension ICD Code: I95.9 - Hypotension, unspecified Status: Acute (2) Symptomatic bradycardia ICD Code: R00.1 - Bradycardia, unspecified Status: Acute (3) CKD (chronic kidney disease), stage III ICD Code: N18.3 - Chronic kidney disease, stage 3 (moderate) Status: Chronic (4) Chronic systolic CHF (congestive heart failure) ICD Code: I50.22 - Chronic systolic (congestive) heart failure Status: Chronic (5) Atrial fibrillation ICD Code: I48.91 - Unspecified atrial fibrillation Status: Chronic (6) Acute worsening of stage 3 chronic kidney disease ICD Code: N18.3 - Chronic kidney disease, stage 3 (moderate) Status: Acute (7) Thrombocytopenia ICD Code: D69.6 - Thrombocytopenia, unspecified Status: Chronic Assessment and Plan In summary this is a 57-year-old male with complex comorbidities including ischemic heart disease, cardiomyopathy, chronic kidney disease, atrial fibrillation, status post cardiogenic shock and PEA cardiac arrest. Patient has had a prolonged ICU course. He has a trach. He is improving and have since moved to the floor. Continue rehabilitation efforts. He may be a candidate for [facility] in a few days. Cardiogenic shock status post PEA cardiac arrest/Chronic systolic congestive heart failure: Clinically stable currently. Patient was followed by cardiology. Reconsult Cardiology for persistent Afib - EF less than 20%. Continue beta obdulio, FABRICE inhibitor, and diuretics. Atrial fibrillation: 07/17 Rate uncontrolled. Restart Cardizem drip. Reconsult Cardiology. Continue Eliquis at a lower dose 2.5 mg twice a day given renal failure. Continue amiodarone, metoprolol. Resp Failure, trached after bone marrow biopsy. Acute hypoxic respiratory failure: Status post mechanical ventilation. Tolerating T piece. Continue bronchodilators, supplemental oxygen. Trach management per pulmonology. - Patient does have a good amount of secretions. Levsin as needed Acute kidney injury superimposed on chronic kidney disease, stage III: BUN and creatinine improving. Avoid nephrotoxic medications. Appreciate nephrology recommendations. Anderson catheter in place. Seizure disorder: Continue Topamax. Thrombocytopenia: Appreciate hematology recommendations. Status post bone marrow biopsy. - Thrombocytopenia resolved. Morbid obesity, acute mild protein energy malnutrition: Patient took out NG tube. He is eating better. Continue diet per speech as tolerated. HCAP/aspiration pneumonia: Sputum culture 06/20 growing Enterobacter. Completed course of cefepime, Flagyl. Now off antibiotics. GI prophylaxis: Protonix. Diabetes mellitus: Monitor Accu-Cheks and cover with sliding scale insulin. DVT prophylaxis: Eliquis. Discharge Planning We'll need SNF or acute care facility. Problem Qualifiers (1) Hypotension: Popeye Dennison MD Jul 17, 2017 11:56
--- NOTE | 2017-07-17 14:32 | PD.CARD.PN ---
Subjective Subjective Remarks not responsive Objective Medications Current Medications Medications (Trade) Dose Ordered Sig/Ashok Route Start Time Stop Time Status Last Admin (Narcan Inj) 0.4 mg UNSCH PRN IV 06/14/17 04:30 (Topamax) 100 mg DAILY PO 06/14/17 11:00 07/17/17 08:50 (Tylenol) 650 mg Q6H PRN PO 06/15/17 21:30 06/30/17 20:37 (Peridex 0.12% Liq) 15 ml BID@08,20 MT 06/17/17 20:00 07/16/17 20:00 (NS Flush) 2 ml UNSCH PRN IV FLUSH 06/17/17 14:15 (NS Flush) 2 ml BID IV FLUSH 06/17/17 21:00 07/17/17 08:51 (Protonix Inj) 40 mg DAILY IV 06/18/17 09:00 07/17/17 08:51 (Tears Naturale Opth Soln) 1 drop TID EACH EYE 06/17/17 18:00 07/15/17 17:28 (Zofran Inj) 4 mg Q6H PRN IV 06/17/17 14:15 06/22/17 08:22 (Albuterol Neb) 2.5 mg Q2HR NEB PRN INH 06/17/17 14:15 07/15/17 13:05 Miscellaneous Information 1 Q361D XX 06/17/17 14:15 (Chlorhexidine 2% Cloth) Taper DAILY@04 TOP 06/18/17 04:00 06/14/18 03:59 07/17/17 04:00 (Chlorhexidine 2% Cloth) 3 pack UNSCH PRN TOP 06/17/17 14:15 (Marilee-Colace) 1 tab BID PO 06/17/17 21:00 07/16/17 20:33 (Milk Of Magnesia Liq) 30 ml Q12H PRN PO 06/17/17 14:15 06/21/17 11:21 (Senokot) 17.2 mg Q12H PRN PO 06/17/17 14:15 (Dulcolax Supp) 10 mg DAILY PRN RECTAL 06/17/17 14:15 (Lactulose Liq) 30 ml DAILY PRN PO 06/17/17 14:15 06/21/17 11:21 (Trandate Inj) 10 mg Q1HR PRN IV PUSH 06/18/17 08:45 07/12/17 21:33 (Apresoline Inj) 10 mg Q1HR PRN IV PUSH 06/18/17 08:45 07/13/17 00:43 (Nitroglycerin 2% Oint) 2 inch Q6HR PRN TOPICAL 06/18/17 08:45 06/18/17 13:00 (Lopressor Inj) 2.5 mg Q6H PRN IV PUSH 06/25/17 15:30 07/08/17 02:24 (Cordarone) 200 mg DAILY NG 06/29/17 11:00 07/17/17 08:51 ([place] 5-325 Mg) 1 tab Q6H PRN PO 06/29/17 18:00 07/07/17 23:24 (Morphine Inj) 2 mg Q3H PRN IV PUSH 06/29/17 18:00 06/29/17 18:12 (Morphine Inj) 4 mg Q3H PRN IV PUSH 06/29/17 18:00 07/10/17 03:54 (Bumex Inj) 1 mg BID@09,18 IV PUSH 06/30/17 18:00 Future Hold 07/06/17 18:00 (Vasotec) 10 mg DAILY NG 07/01/17 09:00 Future Hold 07/05/17 08:50 (Lopressor) 25 mg Q6HR PO 07/07/17 18:00 07/17/17 13:15 (Levsin Inj) 0.25 mg Q4H PRN IV PUSH 07/10/17 23:00 (Cardizem) 30 mg QID PO 07/12/17 13:00 07/17/17 13:14 (Eliquis) 2.5 mg BID NG 07/12/17 21:00 07/17/17 08:50 (Reglan Inj) 5 mg Q8HR PRN IV PUSH 07/12/17 14:30 (Levsin) 0.25 mg Q4H PRN PO 07/14/17 11:00 07/16/17 20:34 Diltiazem HCl 125 mg/Sodium Chloride 125 ml @ 5 mls/hr TITRATE PRN IV 07/17/17 11:00 07/17/17 11:30 Vital Signs / I&O Vital Signs Date Time Temp Pulse Resp B/P (MAP) Pulse Ox O2 Delivery O2 Flow Rate FiO2 07/17/17 14:00 86 07/17/17 12:25 99 Trach Collar 28 07/17/17 12:10 122 126/78 07/17/17 12:00 118 07/17/17 11:30 167 152/72 07/17/17 11:00 140 07/17/17 11:00 100.0 113 20 152/72 (98) 100 07/17/17 10:00 130 07/17/17 09:00 130 07/17/17 08:23 99 Trach Collar 28 07/17/17 08:00 Trach Collar 07/17/17 08:00 124 07/17/17 07:00 116 07/17/17 07:00 98.0 67 16 112/75 (87) 100 07/17/17 06:00 91 07/17/17 05:00 88 07/17/17 04:00 77 07/17/17 04:00 98.1 77 22 103/56 (72) 99 07/17/17 04:00 Trach Collar 28 07/17/17 03:00 81 07/17/17 02:00 80 07/17/17 01:00 79 07/17/17 00:00 Trach Collar 28 07/17/17 00:00 81 07/17/17 00:00 98.0 81 24 105/80 (88) 99 07/16/17 23:00 84 07/16/17 22:41 100 Trach Collar 6.00 28 07/16/17 22:00 89 07/16/17 21:00 93 07/16/17 20:00 98.3 90 24 101/76 (84) 100 07/16/17 20:00 Trach Collar 07/16/17 20:00 90 07/16/17 15:00 98.1 93 24 130/80 (97) 99 07/16/17 14:34 97 28 I/O 07/16/17 07/16/17 07/16/17 07/17/17 07/17/17 07/17/17 07:00 15:00 23:00 07:00 15:00 23:00 Intake Total 480 ml 720 ml 250 ml Output Total 650 ml 500 ml 500 ml Balance -170 ml 220 ml -250 ml Intake Oral 480 ml 720 ml 240 ml IV Total 10 ml Output Urine Total 650 ml 500 ml 500 ml # Bowel Movements 1 1 Physical Exam GENERAL: Well developed, well nourished. HEENT: Jugular venous pressure is normal. CHEST: Lungs decreased in bases. Unlabored respiratory effort. CARDIAC: irregular rate and rhythm without S3, S4, or murmur. ABDOMEN: Soft, EXTREMITIES: No clubbing, Laboratory Laboratory Tests Test 07/17/17 06:45 White Blood Count 11.5 TH/MM3 Red Blood Count 4.22 MIL/MM3 Hemoglobin 12.4 GM/DL Hematocrit 37.4 % Mean Corpuscular Volume 88.7 FL Mean Corpuscular Hemoglobin 29.3 PG Mean Corpuscular Hemoglobin Concent 33.0 % Red Cell Distribution Width 13.5 % Platelet Count 217 TH/MM3 Mean Platelet Volume 11.2 FL Neutrophils (%) (Auto) 64.6 % Lymphocytes (%) (Auto) 19.1 % Monocytes (%) (Auto) 11.0 % Eosinophils (%) (Auto) 4.9 % Basophils (%) (Auto) 0.4 % Neutrophils # (Auto) 7.4 TH/MM3 Lymphocytes # (Auto) 2.2 TH/MM3 Monocytes # (Auto) 1.3 TH/MM3 Eosinophils # (Auto) 0.6 TH/MM3 Basophils # (Auto) 0.0 TH/MM3 CBC Comment DIFF FINAL Differential Comment Blood Urea Nitrogen 38 MG/DL Creatinine 1.54 MG/DL Random Glucose 92 MG/DL Calcium Level 8.6 MG/DL Phosphorus Level 2.3 MG/DL Magnesium Level 1.9 MG/DL Sodium Level 138 MEQ/L Potassium Level 4.2 MEQ/L Chloride Level 105 MEQ/L Carbon Dioxide Level 25.3 MEQ/L Anion Gap 8 MEQ/L Estimat Glomerular Filtration Rate 57 ML/MIN Imaging Last 72 hours Impressions Chest X-Ray 07/17/17 0600 Signed Impressions: Service Date/Time: Monday, July 17, 2017 05:33 - CONCLUSION: 1. Cardiomegaly. Minimal basilar atelectasis. Tracheostomy in good position. Anderson Raymond MD Assessment and Plan Assessment and Plan AF - RVR this am, rate controlled with diltiazem. amio and BB - Given his EF of 20% I will wean and d/c this diltiazem and increase his metoprolol - back on eliquis -apparently not/poor AF ablation candidate per EP Resp Failure - on vent => now trach collar Acute on chronic systolic failure- Cardiomyopathy- ECHO EF <20% - BB Thrombocytopenia- resolved CKD- Jamila Mccormack MD Jul 17, 2017 14:32
--- NOTE | 2017-07-17 15:50 | HHI.PR ---
Subjective Remarks Alert and , stable. On a T bar at 28 %. Refused BiPAP last nite. Trach secretions are clearing On a soft diet. Objective Vital Signs Date Time Temp Pulse Resp B/P (MAP) Pulse Ox O2 Delivery O2 Flow Rate FiO2 07/17/17 14:00 86 07/17/17 12:25 99 Trach Collar 28 07/17/17 12:10 122 126/78 07/17/17 12:00 118 07/17/17 11:30 167 152/72 07/17/17 11:00 140 07/17/17 11:00 100.0 113 20 152/72 (98) 100 07/17/17 10:00 130 07/17/17 09:00 130 07/17/17 08:23 99 Trach Collar 28 07/17/17 08:00 Trach Collar 07/17/17 08:00 124 07/17/17 07:00 116 07/17/17 07:00 98.0 67 16 112/75 (87) 100 07/17/17 06:00 91 07/17/17 05:00 88 07/17/17 04:00 77 07/17/17 04:00 98.1 77 22 103/56 (72) 99 07/17/17 04:00 Trach Collar 28 07/17/17 03:00 81 07/17/17 02:00 80 07/17/17 01:00 79 07/17/17 00:00 Trach Collar 28 07/17/17 00:00 81 07/17/17 00:00 98.0 81 24 105/80 (88) 99 07/16/17 23:00 84 07/16/17 22:41 100 Trach Collar 6.00 28 07/16/17 22:00 89 07/16/17 21:00 93 07/16/17 20:00 98.3 90 24 101/76 (84) 100 07/16/17 20:00 Trach Collar 07/16/17 20:00 90 I/O 07/16/17 07/16/17 07/16/17 07/17/17 07/17/17 07/17/17 07:00 15:00 23:00 07:00 15:00 23:00 Intake Total 480 ml 720 ml 250 ml Output Total 650 ml 500 ml 500 ml Balance -170 ml 220 ml -250 ml Intake Oral 480 ml 720 ml 240 ml IV Total 10 ml Output Urine Total 650 ml 500 ml 500 ml # Bowel Movements 1 1 Result Diagram: 07/17/17 0645 07/17/17 0645 Objective Remarks This is a moderately obese mid aged man with a trach HEENT: Head normocephalic. Pupils reactive and enlarged. Throat is clear . Nasal mucosa is clear. Neck: Supple with trach tube in place. No thyromegaly. Chest: Distant breath sounds with Occ Wheeze scattered. Occ Crackles. Heart: The heart sounds were regular, S1-S2. No murmur or S3. Abdomen: Soft and benign. No masses. No organomegaly or tenderness. Bowel sounds active. Extremities: No edema. Reflexes 1+ with no gross motor deficits. Neurologic: Moves all .he is oriented . Skin: No lesions observed. Assessment and Plan Assessment and Plan IMPRESSION 1. Chronic respiratory failure. 2. Chronic kidney disease stage III. 3. Atrial fibrillation and ASHD. 4. History of diabetes mellitus. 5. Hypertension. 6. S/P Trach Plan: 1. Wean FIO2 to keep sat >92. 2. D/C CPAP . Pt refused. 3. Nebs qid , dioneb 4. Cont antibiotics. 5. PM Valve to talk with supervision 6. Will get Sleep test as OP. 7. PT and OT. 8. Transfer to rehab. Kurtis Patiño MD Jul 17, 2017 15:50
--- NOTE | 2017-07-17 16:12 | HHI.NPPN ---
Subjective History of Present Illness 57-year-old -[place] male with past medical history of seizure disorder, ischemic heart disease, cardiomyopathy, chronic kidney disease, hypertension, diabetes mellitus, atrial fibrillation who was admitted more than three weeks ago for shortness of breath. I was called to see the patient for elevated BUN and creatinine. The patient has a known history of chronic kidney disease and it seems like his baseline creatinine has been in the range of 1.4 to 1.7. Additional Remarks Patient remain with Trach. and doing better, occ. has SOB. Review of Systems Respiratory Lungs: SOB, Cough, Sputum, Wheeze Cardiovascular Cardiac: Edema, GATES Objective Data Data Vital Signs Date Time Temp Pulse Resp B/P (MAP) Pulse Ox O2 Delivery O2 Flow Rate FiO2 07/17/17 15:45 Trach Collar 07/17/17 15:45 98.3 73 20 114/81 (92) 97 07/17/17 15:00 74 07/17/17 14:00 86 07/17/17 12:25 99 Trach Collar 28 07/17/17 12:10 122 126/78 07/17/17 12:00 118 07/17/17 11:30 167 152/72 07/17/17 11:00 140 07/17/17 11:00 100.0 113 20 152/72 (98) 100 07/17/17 10:00 130 07/17/17 09:00 130 07/17/17 08:23 99 Trach Collar 28 07/17/17 08:00 Trach Collar 07/17/17 08:00 124 07/17/17 07:00 116 07/17/17 07:00 98.0 67 16 112/75 (87) 100 07/17/17 06:00 91 07/17/17 05:00 88 07/17/17 04:00 77 07/17/17 04:00 98.1 77 22 103/56 (72) 99 07/17/17 04:00 Trach Collar 28 07/17/17 03:00 81 07/17/17 02:00 80 07/17/17 01:00 79 07/17/17 00:00 Trach Collar 28 07/17/17 00:00 81 07/17/17 00:00 98.0 81 24 105/80 (88) 99 07/16/17 23:00 84 07/16/17 22:41 100 Trach Collar 6.00 28 07/16/17 22:00 89 07/16/17 21:00 93 07/16/17 20:00 98.3 90 24 101/76 (84) 100 07/16/17 20:00 Trach Collar 07/16/17 20:00 90 -: 07/17/17 0645 07/17/17 0645 Physical Exam General Appearance: No Acute Distress, Comfortable Eyes Eye Exam: Pupils Equal Throat Throat Exam: Oral Mucosa [place] & Moist Neck Neck Exam: Neck Supple Pulmonary Resp Exam: Crackles, Rhonchi, Sputum, Decreased Bases, Diminished Breath Sounds Gastrointestinal/Abdomen GI Exam: Soft, Non-Tender, Bowel Sounds Present, Distended Extremeties Extremities Exam: Moderate Edema, Pitting Edema, Dependent Edema Neurologic Neuro Exam: Alert, Awake, Oriented Psychiatric Psych Exam: Appropriate Responses Assessment/Plan Assessment Summary: DENNYS/Acute Renal Failure, CKD Stage III Problem List: (1) Acute kidney injury ICD Codes: N17.9 - Acute kidney failure, unspecified (2) CHF (congestive heart failure) ICD Codes: I50.9 - Heart failure, unspecified Status: Resolved (3) DM (diabetes mellitus) ICD Codes: E11.9 - Type 2 diabetes mellitus without complications Status: Chronic (4) Peripheral edema ICD Codes: R60.9 - Edema, unspecified Status: Acute (5) Atrial fibrillation ICD Codes: I48.91 - Unspecified atrial fibrillation Status: Chronic (6) Atrial fibrillation with RVR ICD Codes: I48.91 - Unspecified atrial fibrillation Status: Resolved (7) CKD (chronic kidney disease), stage III ICD Codes: N18.3 - Chronic kidney disease, stage 3 (moderate) Status: Chronic Plan He has chronic kidney disease and the baseline Creatinine is close to 1.7-1.8. Most likely has underlying Hypertensive or renovascular disease. K increased again, give Kayexalate. Continue to hold diuretics. Urine out put is adequate. Possibly has ATN causing DENNYS. Follow the urine out put and BMP. Avoid Nephrotoxins. Creatinine continue to improve. Has Chronic kidney disease. Rajan Hoyt MD Jul 17, 2017 16:12
[2017-07-17] MEDS: HYOSCYAMINE 0.125 MG TAB PO PRN (17:19)
[2017-07-18] VITALS (24 sets, daily range): BP systolic 94–141; BP diastolic 57–93; PULSE 50–102; RESP 16–22; TEMP 97.4–98.7; O2SAT 98–100
[2017-07-18] MEDS: METOPROLOL TARTRATE 25 MG TAB PO SCH ×2 (00:44→06:00)
[2017-07-18] MEDS: DILTIAZEM INJ 125 MG in SODIUM CHLORIDE 0.9% INJ 100 ML IV PRN (03:00)
[2017-07-18] MEDS: CHLORHEXIDINE GLUCONATE 2 % 1 PACK (2 CLOTHS) TOP SCH (04:00)
--- NOTE | 2017-07-18 07:09 | PD.CARD.PN ---
Subjective Subjective Remarks PT without complaints Objective Medications Current Medications Medications (Trade) Dose Ordered Sig/Ashok Route Start Time Stop Time Status Last Admin (Narcan Inj) 0.4 mg UNSCH PRN IV 06/14/17 04:30 (Topamax) 100 mg DAILY PO 06/14/17 11:00 07/17/17 08:50 (Tylenol) 650 mg Q6H PRN PO 06/15/17 21:30 06/30/17 20:37 (Peridex 0.12% Liq) 15 ml BID@08,20 MT 06/17/17 20:00 07/16/17 20:00 (NS Flush) 2 ml UNSCH PRN IV FLUSH 06/17/17 14:15 (NS Flush) 2 ml BID IV FLUSH 06/17/17 21:00 07/17/17 08:51 (Protonix Inj) 40 mg DAILY IV 06/18/17 09:00 07/17/17 08:51 (Tears Naturale Opth Soln) 1 drop TID EACH EYE 06/17/17 18:00 07/15/17 17:28 (Zofran Inj) 4 mg Q6H PRN IV 06/17/17 14:15 06/22/17 08:22 (Albuterol Neb) 2.5 mg Q2HR NEB PRN INH 06/17/17 14:15 07/15/17 13:05 Miscellaneous Information 1 Q361D XX 06/17/17 14:15 (Chlorhexidine 2% Cloth) Taper DAILY@04 TOP 06/18/17 04:00 06/14/18 03:59 07/17/17 04:00 (Chlorhexidine 2% Cloth) 3 pack UNSCH PRN TOP 06/17/17 14:15 (Marilee-Colace) 1 tab BID PO 06/17/17 21:00 07/16/17 20:33 (Milk Of Magnesia Liq) 30 ml Q12H PRN PO 06/17/17 14:15 06/21/17 11:21 (Senokot) 17.2 mg Q12H PRN PO 06/17/17 14:15 (Dulcolax Supp) 10 mg DAILY PRN RECTAL 06/17/17 14:15 (Lactulose Liq) 30 ml DAILY PRN PO 06/17/17 14:15 06/21/17 11:21 (Trandate Inj) 10 mg Q1HR PRN IV PUSH 06/18/17 08:45 07/12/17 21:33 (Apresoline Inj) 10 mg Q1HR PRN IV PUSH 06/18/17 08:45 07/13/17 00:43 (Nitroglycerin 2% Oint) 2 inch Q6HR PRN TOPICAL 06/18/17 08:45 06/18/17 13:00 (Lopressor Inj) 2.5 mg Q6H PRN IV PUSH 06/25/17 15:30 07/08/17 02:24 (Cordarone) 200 mg DAILY NG 06/29/17 11:00 07/17/17 08:51 ([place] 5-325 Mg) 1 tab Q6H PRN PO 06/29/17 18:00 07/07/17 23:24 (Morphine Inj) 2 mg Q3H PRN IV PUSH 06/29/17 18:00 06/29/17 18:12 (Morphine Inj) 4 mg Q3H PRN IV PUSH 06/29/17 18:00 07/10/17 03:54 (Bumex Inj) 1 mg BID@09,18 IV PUSH 06/30/17 18:00 Future Hold 07/06/17 18:00 (Vasotec) 10 mg DAILY NG 07/01/17 09:00 Future Hold 07/05/17 08:50 (Levsin Inj) 0.25 mg Q4H PRN IV PUSH 07/10/17 23:00 (Eliquis) 2.5 mg BID NG 07/12/17 21:00 07/17/17 21:22 (Reglan Inj) 5 mg Q8HR PRN IV PUSH 07/12/17 14:30 (Levsin) 0.25 mg Q4H PRN PO 07/14/17 11:00 07/17/17 17:19 Diltiazem HCl 125 mg/Sodium Chloride 125 ml @ 5 mls/hr TITRATE PRN IV 07/17/17 11:00 07/18/17 03:00 (Lopressor) 50 mg Q6HR PO 07/17/17 18:00 07/18/17 00:44 Vital Signs / I&O Vital Signs Date Time Temp Pulse Resp B/P (MAP) Pulse Ox O2 Delivery O2 Flow Rate FiO2 07/18/17 05:00 78 07/18/17 03:00 107 07/18/17 01:01 98 Trach Collar 6.00 28 07/17/17 18:00 78 07/17/17 17:00 80 07/17/17 16:00 70 07/17/17 15:45 Trach Collar 07/17/17 15:45 98.3 73 20 114/81 (92) 97 07/17/17 15:00 74 07/17/17 14:00 86 07/17/17 12:25 99 Trach Collar 28 07/17/17 12:10 122 126/78 07/17/17 12:00 118 07/17/17 11:30 167 152/72 07/17/17 11:00 140 07/17/17 11:00 100.0 113 20 152/72 (98) 100 07/17/17 10:00 130 07/17/17 09:00 130 07/17/17 08:23 99 Trach Collar 28 07/17/17 08:00 Trach Collar 07/17/17 08:00 124 I/O 07/17/17 07/17/17 07/17/17 07/18/17 07/18/17 07/18/17 07:00 15:00 23:00 07:00 15:00 23:00 Intake Total 250 ml 1080 ml Output Total 500 ml 425 ml Balance -250 ml 655 ml Intake Oral 240 ml 1080 ml IV Total 10 ml Output Urine Total 500 ml 425 ml # Bowel Movements 1 Physical Exam GENERAL: Well developed, on trach collar HEENT: Jugular venous pressure is normal. CHEST: Lungs decreased in bases. Unlabored respiratory effort. CARDIAC: irregular rate and rhythm without S3, S4, or murmur. ABDOMEN: Soft, EXTREMITIES: No clubbing, Assessment and Plan Assessment and Plan AF - rate controlled with amio and BB - change BB to Q12 - on eliquis -apparently not/poor AF ablation candidate per EP Resp Failure - on vent => now trach collar Acute on chronic systolic failure- Cardiomyopathy- ECHO EF 20% - BB and FABRICE Thrombocytopenia- resolved CKD- Other- consider floors if HR controlled >24 hours (tomorrow am) Jamila Mccormack MD Jul 18, 2017 07:08
[2017-07-18] MEDS ORDERED: METOPROLOL TARTRATE 50 MG TAB PO ONE (07:15)
[2017-07-18] MEDS: CHLORHEXIDINE 0.12% (ORAL KIT) 15 ML CUP MT SCH ×2 (07:35→20:00)
[2017-07-18 07:41] LABS: HEMATOCRIT 37.5 % (39.0-51.0); MEAN CELL VOLUME 88.8 FL (80.0-100.0); MEAN CORPUSCULAR HEMOGLOBIN 28.9 PG (27.0-34.0); MEAN CORPUSCULAR HGB CONC 32.6 % (32.0-36.0); PLATELET COUNT 221 TH/MM3 (150-450); RED BLOOD COUNT 4.22 MIL/MM3 (4.50-5.90); RED CELL DISTRIBUTION WIDTH 13.5 % (11.6-17.2); REVIEW FLAG FINAL; WHITE BLOOD COUNT 10.9 TH/MM3 (4.0-11.0)
[2017-07-18] MEDS: ARTIFICIAL TEARS OPTH SOLN 15 ML BTL EACH EYE SCH ×3 (09:00→17:36)
[2017-07-18] MEDS: ENALAPRIL MALEATE 5 MG TAB NG SCH (09:12)
[2017-07-18] MEDS: AMIODARONE 200 MG TAB NG SCH (09:12)
[2017-07-18] MEDS: APIXABAN 2.5 MG TABLET NG SCH ×2 (09:13→21:00)
[2017-07-18] MEDS: DOCUSATE SODIUM 50 MG/SENNA 8.6 MG TAB PO SCH ×2 (09:13→09:24)
[2017-07-18] MEDS: PANTOPRAZOLE SODIUM 40 MG VIAL IV SCH (09:13)
[2017-07-18] MEDS: SODIUM CHLORIDE 0.9% FLUSH 10 ML FLUSH IV FLUSH SCH ×2 (09:14→21:00)
[2017-07-18] MEDS: TOPIRAMATE 100 MG TAB PO SCH (09:20)
--- NOTE | 2017-07-18 10:40 | HHI.PR ---
Subjective Remarks He has been in the chair this morning. Currently feeling tired. No increase in shortness of breath. No chest pain. Heart rate controlled. Objective Vitals Vital Signs Date Time Temp Pulse Resp B/P (MAP) Pulse Ox O2 Delivery O2 Flow Rate FiO2 07/18/17 10:16 Trach Collar 6.00 28 07/18/17 07:50 98.3 76 16 134/83 (100) 100 07/18/17 06:00 75 07/18/17 05:00 78 07/18/17 04:00 Trach Collar 6.00 28 07/18/17 04:00 97.8 82 22 119/78 (92) 99 07/18/17 04:00 84 07/18/17 03:00 107 07/18/17 02:00 82 07/18/17 01:01 98 Trach Collar 6.00 28 07/18/17 01:00 79 07/18/17 00:00 80 07/18/17 00:00 98.7 88 22 141/93 (109) 99 07/18/17 00:00 Trach Collar 6.00 28 07/17/17 23:00 82 07/17/17 22:00 78 07/17/17 21:00 82 07/17/17 20:00 Trach Collar 6.00 28 07/17/17 20:00 98.5 86 22 135/85 (102) 99 07/17/17 20:00 70 07/17/17 19:00 70 07/17/17 18:00 78 07/17/17 17:00 80 07/17/17 16:00 70 07/17/17 15:45 Trach Collar 07/17/17 15:45 98.3 73 20 114/81 (92) 97 07/17/17 15:00 74 07/17/17 14:00 86 07/17/17 12:25 99 Trach Collar 28 07/17/17 12:10 122 126/78 07/17/17 12:00 118 07/17/17 11:30 167 152/72 07/17/17 11:00 140 07/17/17 11:00 100.0 113 20 152/72 (98) 100 I/O 07/17/17 07/17/17 07/17/17 07/18/17 07/18/17 07/18/17 07:00 15:00 23:00 07:00 15:00 23:00 Intake Total 250 ml 1080 ml 260 ml Output Total 500 ml 425 ml 525 ml Balance -250 ml 655 ml -265 ml Intake Oral 240 ml 1080 ml 260 ml IV Total 10 ml Output Urine Total 500 ml 425 ml 525 ml # Bowel Movements 1 Result Diagram: 07/18/17 0710 07/18/17 0730 Objective Remarks GENERAL: Morbidly obese, chronically ill-appearing male. Trached CARDIOVASCULAR: Normal rate and regular rhythm without murmurs, gallops, or rubs. RESPIRATORY: Trachea in place. Coarse breath sounds throughout. GASTROINTESTINAL: Morbidly obese. Hypoactive bowel sounds. Abdomen is soft, nontender. MUSCULOSKELETAL: Extremities with 2+ edema in bilateral lower extremities. NEURO: Awake. Alert. Able to mouth some words. PSYCH: Calm Procedures 06/17/17 intubation 06/17/17 CPR 06/17/17 right femoral arterial catheter placement 06/18/17 right IJ central line placement 06/22/17 fiberoptic bronchoscopy 06/24/17 right axillary arterial catheter placement 06/24/17 tracheostomy, bronchoscopy A/P Problem List: (1) Hypotension ICD Code: I95.9 - Hypotension, unspecified Status: Acute (2) Symptomatic bradycardia ICD Code: R00.1 - Bradycardia, unspecified Status: Acute (3) CKD (chronic kidney disease), stage III ICD Code: N18.3 - Chronic kidney disease, stage 3 (moderate) Status: Chronic (4) Chronic systolic CHF (congestive heart failure) ICD Code: I50.22 - Chronic systolic (congestive) heart failure Status: Chronic (5) Atrial fibrillation ICD Code: I48.91 - Unspecified atrial fibrillation Status: Chronic (6) Acute worsening of stage 3 chronic kidney disease ICD Code: N18.3 - Chronic kidney disease, stage 3 (moderate) Status: Acute (7) Thrombocytopenia ICD Code: D69.6 - Thrombocytopenia, unspecified Status: Chronic Assessment and Plan In summary this is a 57-year-old male with complex comorbidities including ischemic heart disease, cardiomyopathy, chronic kidney disease, atrial fibrillation, status post cardiogenic shock and PEA cardiac arrest. Patient has had a prolonged ICU course. He has a trach. He is improving and have since moved to the floor. Continue rehabilitation efforts. Cardiogenic shock status post PEA cardiac arrest/Chronic systolic congestive heart failure: Clinically stable currently. Patient was followed by cardiology. Reconsult Cardiology for persistent Afib - EF less than 20%. Continue beta obdulio, FABRICE inhibitor, and diuretics. Atrial fibrillation: Rate difficult to control Cardiology reconsulted. Discussed with Dr. Mccormack. Wean off by mouth Cardizem and optimize metoprolol. Rate better controlled. Continue Eliquis at a lower dose 2.5 mg twice a day given renal failure. Continue amiodarone, metoprolol. Resp Failure, trached after bone marrow biopsy. Acute hypoxic respiratory failure: Status post mechanical ventilation. Tolerating T piece. Continue bronchodilators, supplemental oxygen. Trach management per pulmonology. - Levsin as needed for secretions. Acute kidney injury superimposed on chronic kidney disease, stage III: BUN and creatinine stabilized. Avoid nephrotoxic medications. Appreciate nephrology recommendations. Anderson catheter in place. Seizure disorder: Continue Topamax. Thrombocytopenia: Appreciate hematology recommendations. Status post bone marrow biopsy. - Thrombocytopenia resolved. Morbid obesity, acute mild protein energy malnutrition: He is eating better. Continue diet per speech as tolerated. HCAP/aspiration pneumonia: Sputum culture 06/20 growing Enterobacter. Completed course of cefepime, Flagyl. Now off antibiotics. GI prophylaxis: Protonix. Diabetes mellitus: Monitor Accu-Cheks and cover with sliding scale insulin. DVT prophylaxis: Eliquis. Discharge Planning Monitor in [facility] until tomorrow. May be able to transfer to floor tomorrow. Problem Qualifiers (1) Hypotension: Popeye Dennison MD Jul 18, 2017 10:40
[2017-07-18] MEDS: ONDANSETRON HCL 4 MG/2 ML VIAL IV PRN (11:07)
--- NOTE | 2017-07-18 16:25 | HHI.NPPN ---
Subjective History of Present Illness 57-year-old -[place]ese male with past medical history of seizure disorder, ischemic heart disease, cardiomyopathy, chronic kidney disease, hypertension, diabetes mellitus, atrial fibrillation who was admitted more than three weeks ago for shortness of breath. I was called to see the patient for elevated BUN and creatinine. The patient has a known history of chronic kidney disease and it seems like his baseline creatinine has been in the range of 1.4 to 1.7. Additional Remarks Patient remain with Trach. and doing better, no complain. Review of Systems Respiratory Lungs: SOB, Cough, Sputum, Wheeze Cardiovascular Cardiac: Edema, GATES Objective Data Data 07/18/17 07/19/17 19:00 07:00 Intake Total 260 ml Output Total 525 ml Balance -265 ml Intake Oral 260 ml Output Urine Total 525 ml Vital Signs Date Time Temp Pulse Resp B/P (MAP) Pulse Ox O2 Delivery O2 Flow Rate FiO2 07/18/17 15:30 97 07/18/17 15:30 Trach Collar 6.00 28 07/18/17 15:30 97.4 77 16 95/57 (70) 100 07/18/17 14:11 98 07/18/17 13:35 84 07/18/17 12:27 94 07/18/17 11:53 97.8 68 16 117/76 (90) 100 07/18/17 11:53 96 07/18/17 11:53 Trach Collar 6.00 28 07/18/17 10:16 Trach Collar 6.00 28 07/18/17 07:50 98.3 76 16 134/83 (100) 100 07/18/17 07:40 Trach Collar 6.00 28 07/18/17 07:40 102 07/18/17 06:00 75 07/18/17 05:00 78 07/18/17 04:00 Trach Collar 6.00 28 07/18/17 04:00 97.8 82 22 119/78 (92) 99 07/18/17 04:00 84 07/18/17 03:00 107 07/18/17 02:00 82 07/18/17 01:01 98 Trach Collar 6.00 28 07/18/17 01:00 79 07/18/17 00:00 80 07/18/17 00:00 98.7 88 22 141/93 (109) 99 07/18/17 00:00 Trach Collar 6.00 28 07/17/17 23:00 82 07/17/17 22:00 78 07/17/17 21:00 82 07/17/17 20:00 Trach Collar 6.00 28 07/17/17 20:00 98.5 86 22 135/85 (102) 99 07/17/17 20:00 70 07/17/17 19:00 70 07/17/17 18:00 78 07/17/17 17:00 80 -: 07/18/17 0710 07/18/17 0730 Physical Exam General Appearance: No Acute Distress, Comfortable Eyes Eye Exam: Pupils Equal Throat Throat Exam: Oral Mucosa [place] & Moist Neck Neck Exam: Neck Supple Pulmonary Resp Exam: Crackles, Rhonchi, Sputum, Decreased Bases, Diminished Breath Sounds Gastrointestinal/Abdomen GI Exam: Soft, Non-Tender, Bowel Sounds Present, Distended Extremeties Extremities Exam: Moderate Edema, Pitting Edema, Dependent Edema Neurologic Neuro Exam: Alert, Awake, Oriented Psychiatric Psych Exam: Appropriate Responses Assessment/Plan Assessment Summary: DENNYS/Acute Renal Failure, CKD Stage III Problem List: (1) Acute kidney injury ICD Codes: N17.9 - Acute kidney failure, unspecified (2) CHF (congestive heart failure) ICD Codes: I50.9 - Heart failure, unspecified Status: Resolved (3) DM (diabetes mellitus) ICD Codes: E11.9 - Type 2 diabetes mellitus without complications Status: Chronic (4) Peripheral edema ICD Codes: R60.9 - Edema, unspecified Status: Acute (5) Atrial fibrillation ICD Codes: I48.91 - Unspecified atrial fibrillation Status: Chronic (6) Atrial fibrillation with RVR ICD Codes: I48.91 - Unspecified atrial fibrillation Status: Resolved (7) CKD (chronic kidney disease), stage III ICD Codes: N18.3 - Chronic kidney disease, stage 3 (moderate) Status: Chronic Plan He has chronic kidney disease and the baseline Creatinine is close to 1.7-1.8. Most likely has underlying Hypertensive or renovascular disease. K increased again, give Kayexalate. Continue to hold diuretics. Urine out put is adequate. Possibly has ATN causing DENNYS. Follow the urine out put and BMP. Creatinine is 1.6, possibly at his baseline. Diuretics still on hold. Rajan Hoyt MD Jul 18, 2017 16:25
[2017-07-18] MEDS: METOPROLOL TARTRATE 100 MG TAB PO SCH ×3 (18:00→18:37)
--- NOTE | 2017-07-18 19:07 | HHI.PR ---
Subjective Remarks Alert and , stable. On a T bar at 28 %. Refused BiPAP last nite. Trach secretions are minimal. On a soft diet. C/O pain in Hips. Objective Vital Signs Date Time Temp Pulse Resp B/P (MAP) Pulse Ox O2 Delivery O2 Flow Rate FiO2 07/18/17 18:23 97 07/18/17 18:13 94/68 (77) 07/18/17 17:01 90 07/18/17 16:37 92 07/18/17 15:30 97 07/18/17 15:30 Trach Collar 6.00 28 07/18/17 15:30 97.4 77 16 95/57 (70) 100 07/18/17 14:11 98 07/18/17 13:35 84 07/18/17 12:27 94 07/18/17 11:53 97.8 68 16 117/76 (90) 100 07/18/17 11:53 96 07/18/17 11:53 Trach Collar 6.00 28 07/18/17 10:16 Trach Collar 6.00 28 07/18/17 07:50 98.3 76 16 134/83 (100) 100 07/18/17 07:40 Trach Collar 6.00 28 07/18/17 07:40 102 07/18/17 06:00 75 07/18/17 05:00 78 07/18/17 04:00 Trach Collar 6.00 28 07/18/17 04:00 97.8 82 22 119/78 (92) 99 07/18/17 04:00 84 07/18/17 03:00 107 07/18/17 02:00 82 07/18/17 01:01 98 Trach Collar 6.00 28 07/18/17 01:00 79 07/18/17 00:00 80 07/18/17 00:00 98.7 88 22 141/93 (109) 99 07/18/17 00:00 Trach Collar 6.00 28 07/17/17 23:00 82 07/17/17 22:00 78 07/17/17 21:00 82 07/17/17 20:00 Trach Collar 6.00 28 07/17/17 20:00 98.5 86 22 135/85 (102) 99 07/17/17 20:00 70 I/O 9/13/17 9/07/17/17 07/18/17 07/18/17 07/18/17 07:00 15:00 23:00 07:00 15:00 23:00 Intake Total 250 ml 1080 ml 260 ml 760 ml Output Total 500 ml 425 ml 525 ml 250 ml Balance -250 ml 655 ml -265 ml 510 ml Intake Oral 240 ml 1080 ml 260 ml 760 ml IV Total 10 ml Output Urine Total 500 ml 425 ml 525 ml 250 ml # Bowel Movements 1 Result Diagram: 07/18/17 0710 07/18/17 07 Objective Remarks This is a moderately obese mid aged man with a trach HEENT: Head normocephalic. Pupils reactive . Throat is clear . Nasal mucosa is clear. Neck: Supple with trach tube in place. No thyromegaly. Chest: Distant breath sounds with Occ Wheeze scattered. Occ basal Crackles. Heart: The heart sounds were regular, S1-S2. No murmur or S3. Abdomen: Soft and benign. No masses. No organomegaly or tenderness. Bowel sounds active. Extremities: No edema. Reflexes 1+ with no gross motor deficits. Neurologic: Moves all .he is oriented . Skin: No lesions observed. Assessment and Plan Assessment and Plan IMPRESSION 1. Chronic respiratory failure. 2. Chronic kidney disease stage III. 3. Atrial fibrillation and ASHD. 4. History of diabetes mellitus. 5. Hypertension. 6. S/P Trach Plan: 1. Wean FIO2 to keep sat >92. 2. Cont CPAP at HS 12/5 CM FIo2 28 % 3. Nebs qid , dioneb 4. Cont Anticoagulants. 5. PM Valve to talk with supervision 6. Will get Sleep test as OP. 7. PT and OT. 8. Labs in am. Kurtis Patiño MD Jul 18, 2017 19:07
[2017-07-19] VITALS (27 sets, daily range): BP systolic 95–126; BP diastolic 57–75; PULSE 67–120; RESP 16–20; TEMP 98–98.1; O2SAT 97–100
[2017-07-19] MEDS: RESP: ALBUTEROL 2.5 MG/3 ML NEB (PRN) INH (01:04)
[2017-07-19] MEDS: CHLORHEXIDINE GLUCONATE 2 % 1 PACK (2 CLOTHS) TOP SCH (04:00)
[2017-07-19 08:00] LABS: BICARBONATE 24.5 MEQ/L (21.0-32.0); POTASSIUM 3.9 MEQ/L (3.5-5.1)
[2017-07-19] MEDS: CHLORHEXIDINE 0.12% (ORAL KIT) 15 ML CUP MT SCH ×2 (08:00→20:00)
[2017-07-19] MEDS: AMIODARONE 200 MG TAB NG SCH (08:20)
[2017-07-19] MEDS: APIXABAN 2.5 MG TABLET NG SCH ×2 (08:20→21:32)
[2017-07-19] MEDS: ENALAPRIL MALEATE 5 MG TAB NG SCH (08:20)
[2017-07-19] MEDS: TOPIRAMATE 100 MG TAB PO SCH (08:20)
[2017-07-19] MEDS: ARTIFICIAL TEARS OPTH SOLN 15 ML BTL EACH EYE SCH ×3 (08:21→15:53)
[2017-07-19] MEDS: SODIUM CHLORIDE 0.9% FLUSH 10 ML FLUSH IV FLUSH SCH ×2 (08:21→21:32)
[2017-07-19] MEDS: PANTOPRAZOLE SODIUM 40 MG VIAL IV SCH (08:21)
[2017-07-19] MEDS: DOCUSATE SODIUM 50 MG/SENNA 8.6 MG TAB PO SCH ×2 (08:22→21:30)
--- NOTE | 2017-07-19 11:36 | HHI.PR ---
Subjective Remarks Patient states he wants to walk with me. DW RN, no new issues. HR controlled. Objective Vitals Vital Signs Date Time Temp Pulse Resp B/P (MAP) Pulse Ox O2 Delivery O2 Flow Rate FiO2 07/19/17 08:53 97 T-piece 5.00 28 07/19/17 06:00 98 07/19/17 05:00 92 07/19/17 04:31 100 35 07/19/17 04:21 Trach Collar 6.00 28 07/19/17 04:00 92 07/19/17 03:56 98.1 81 16 95/57 (70) 99 07/19/17 03:00 92 07/19/17 02:00 94 07/19/17 01:00 90 07/19/17 00:43 99 35 07/19/17 00:00 80 07/18/17 23:00 Trach Collar 6.00 28 07/18/17 23:00 97.9 50 16 95/57 (70) 100 07/18/17 23:00 80 07/18/17 22:00 102 07/18/17 21:00 94 07/18/17 20:15 100 Trach Collar 6.00 28 07/18/17 20:00 97.8 91 16 95/57 (70) 98 07/18/17 20:00 Trach Collar 6.00 28 07/18/17 20:00 98 07/18/17 19:00 89 07/18/17 18:23 97 07/18/17 18:13 94/68 (77) 07/18/17 17:01 90 07/18/17 16:37 92 07/18/17 15:30 97 07/18/17 15:30 Trach Collar 6.00 28 07/18/17 15:30 97.4 77 16 95/57 (70) 100 07/18/17 14:11 98 07/18/17 13:35 84 07/18/17 12:27 94 07/18/17 11:53 97.8 68 16 117/76 (90) 100 07/18/17 11:53 96 07/18/17 11:53 Trach Collar 6.00 28 I/O 07/18/17 07/18/17 07/18/17 07/19/17 07/19/17 07/19/17 07:00 15:00 23:00 07:00 15:00 23:00 Intake Total 260 ml 760 ml 480 ml Output Total 525 ml 250 ml 250 ml Balance -265 ml 510 ml 230 ml Intake Oral 260 ml 760 ml 480 ml Output Urine Total 525 ml 250 ml 250 ml Result Diagram: 07/18/17 0710 07/19/17 0539 Objective Remarks GENERAL: Morbidly obese, chronically ill-appearing male. Trached CARDIOVASCULAR: Normal rate and regular rhythm without murmurs, gallops, or rubs. RESPIRATORY: Trachea in place. Coarse breath sounds throughout. GASTROINTESTINAL: Morbidly obese. Hypoactive bowel sounds. Abdomen is soft, nontender. MUSCULOSKELETAL: Extremities with 2+ edema in bilateral lower extremities. NEURO: Awake. Alert. Able to mouth some words. PSYCH: Calm Procedures 06/17/17 intubation 06/17/17 CPR 06/17/17 right femoral arterial catheter placement 06/18/17 right IJ central line placement 06/22/17 fiberoptic bronchoscopy 06/24/17 right axillary arterial catheter placement 06/24/17 tracheostomy, bronchoscopy A/P Problem List: (1) Hypotension ICD Code: I95.9 - Hypotension, unspecified Status: Acute (2) Symptomatic bradycardia ICD Code: R00.1 - Bradycardia, unspecified Status: Acute (3) CKD (chronic kidney disease), stage III ICD Code: N18.3 - Chronic kidney disease, stage 3 (moderate) Status: Chronic (4) Chronic systolic CHF (congestive heart failure) ICD Code: I50.22 - Chronic systolic (congestive) heart failure Status: Chronic (5) Atrial fibrillation ICD Code: I48.91 - Unspecified atrial fibrillation Status: Chronic (6) Acute worsening of stage 3 chronic kidney disease ICD Code: N18.3 - Chronic kidney disease, stage 3 (moderate) Status: Acute (7) Thrombocytopenia ICD Code: D69.6 - Thrombocytopenia, unspecified Status: Chronic Assessment and Plan In summary this is a 57-year-old male with complex comorbidities including ischemic heart disease, cardiomyopathy, chronic kidney disease, atrial fibrillation, status post cardiogenic shock and PEA cardiac arrest. Patient has had a prolonged ICU course. He has a trach. He is improving and have since moved to the floor. Continue rehabilitation efforts. Cardiogenic shock status post PEA cardiac arrest/Chronic systolic congestive heart failure: Clinically stable currently. Patient was followed by cardiology. Reconsult Cardiology for persistent Afib - EF less than 20%. Continue beta obdulio, FABRICE inhibitor, and diuretics. Atrial fibrillation: Cardiology following. Rate is better controlled. Continue Eliquis at a lower dose 2.5 mg twice a day given renal failure. Continue amiodarone, metoprolol. Resp Failure, trached after bone marrow biopsy. Acute hypoxic respiratory failure: Status post mechanical ventilation. Tolerating T piece. Continue bronchodilators, supplemental oxygen. Trach management per pulmonology. - Levsin as needed for secretions. Acute kidney injury superimposed on chronic kidney disease, stage III: BUN and creatinine fluctuating. Avoid nephrotoxic medications. Appreciate nephrology recommendations. Anderson catheter in place. Seizure disorder: Continue Topamax. Thrombocytopenia: Appreciate hematology recommendations. Status post bone marrow biopsy. - Thrombocytopenia resolved. Morbid obesity, acute mild protein energy malnutrition: He is eating better. Continue diet per speech as tolerated. HCAP/aspiration pneumonia: Sputum culture 06/20 growing Enterobacter. Completed course of cefepime, Flagyl. Now off antibiotics. GI prophylaxis: Protonix. Diabetes mellitus: Monitor Accu-Cheks and cover with sliding scale insulin. DVT prophylaxis: Eliquis. Discharge Planning Transfer to floor today. Problem Qualifiers (1) Hypotension: Popeye Dennison MD Jul 19, 2017 11:36
--- NOTE | 2017-07-19 12:02 | HHI.NPPN ---
Subjective History of Present Illness 57-year-old -Spanish male with past medical history of seizure disorder, ischemic heart disease, cardiomyopathy, chronic kidney disease, hypertension, diabetes mellitus, atrial fibrillation who was admitted more than three weeks ago for shortness of breath. I was called to see the patient for elevated BUN and creatinine. The patient has a known history of chronic kidney disease and it seems like his baseline creatinine has been in the range of 1.4 to 1.7. Additional Remarks Patient remain with Trach. and doing better, occ. has SOB. Review of Systems Respiratory Lungs: SOB, Cough, Sputum, Wheeze Cardiovascular Cardiac: Edema, GATES Objective Data Data Vital Signs Date Time Temp Pulse Resp B/P (MAP) Pulse Ox O2 Delivery O2 Flow Rate FiO2 07/19/17 08:53 97 T-piece 5.00 28 07/19/17 06:00 98 07/19/17 05:00 92 07/19/17 04:31 100 35 07/19/17 04:21 Trach Collar 6.00 28 07/19/17 04:00 92 07/19/17 03:56 98.1 81 16 95/57 (70) 99 07/19/17 03:00 92 07/19/17 02:00 94 07/19/17 01:00 90 07/19/17 00:43 99 35 07/19/17 00:00 80 07/18/17 23:00 Trach Collar 6.00 28 07/18/17 23:00 97.9 50 16 95/57 (70) 100 07/18/17 23:00 80 07/18/17 22:00 102 07/18/17 21:00 94 07/18/17 20:15 100 Trach Collar 6.00 28 07/18/17 20:00 97.8 91 16 95/57 (70) 98 07/18/17 20:00 Trach Collar 6.00 28 07/18/17 20:00 98 07/18/17 19:00 89 07/18/17 18:23 97 07/18/17 18:13 94/68 (77) 07/18/17 17:01 90 07/18/17 16:37 92 07/18/17 15:30 97 07/18/17 15:30 Trach Collar 6.00 28 07/18/17 15:30 97.4 77 16 95/57 (70) 100 07/18/17 14:11 98 07/18/17 13:35 84 07/18/17 12:27 94 -: 07/18/17 0710 07/19/17 0539 Physical Exam General Appearance: No Acute Distress, Comfortable Eyes Eye Exam: Pupils Equal Throat Throat Exam: Oral Mucosa [place] & Moist Neck Neck Exam: Neck Supple Pulmonary Resp Exam: Crackles, Rhonchi, Sputum, Decreased Bases, Diminished Breath Sounds Gastrointestinal/Abdomen GI Exam: Soft, Non-Tender, Bowel Sounds Present, Distended Extremeties Extremities Exam: Moderate Edema, Pitting Edema, Dependent Edema Neurologic Neuro Exam: Alert, Awake, Oriented Psychiatric Psych Exam: Appropriate Responses Assessment/Plan Assessment Summary: DENNYS/Acute Renal Failure, CKD Stage III Problem List: (1) Acute kidney injury ICD Codes: N17.9 - Acute kidney failure, unspecified (2) CHF (congestive heart failure) ICD Codes: I50.9 - Heart failure, unspecified Status: Resolved (3) DM (diabetes mellitus) ICD Codes: E11.9 - Type 2 diabetes mellitus without complications Status: Chronic (4) Peripheral edema ICD Codes: R60.9 - Edema, unspecified Status: Acute (5) Atrial fibrillation ICD Codes: I48.91 - Unspecified atrial fibrillation Status: Chronic (6) Atrial fibrillation with RVR ICD Codes: I48.91 - Unspecified atrial fibrillation Status: Resolved (7) CKD (chronic kidney disease), stage III ICD Codes: N18.3 - Chronic kidney disease, stage 3 (moderate) Status: Chronic Plan He has chronic kidney disease and the baseline Creatinine is close to 1.7-1.8. Most likely has underlying Hypertensive or cardiorenal disease, EF 20% placed on ACEI by Cardiology and now creatinine worse became hypotensive sbp 90'S may consider diuresis but it if creatinine worsen further may stop it Try Albumin/bumex for diuresis Follow the urine out put and BMP. Avoid Nephrotoxins. Dionne Gregory MD Jul 19, 2017 12:02
[2017-07-19] MEDS: HYOSCYAMINE 0.125 MG TAB PO PRN ×2 (12:23→21:31)
[2017-07-19] MEDS ORDERED: ALBUMIN HUMAN 25% 25 GM/100 ML BAGP IV ONE (12:45)
[2017-07-19] MEDS ORDERED: BUMETANIDE INJ 1 MG/4 ML VIAL IV PUSH ONE (12:45)
--- NOTE | 2017-07-19 20:24 | HHI.PR ---
Subjective Remarks Alert and Improved. On a T bar at 28 %.used BiPAP last nite. Trach secretions are less On a soft diet. C/O pain in Hips. Objective Vital Signs Date Time Temp Pulse Resp B/P (MAP) Pulse Ox O2 Delivery O2 Flow Rate FiO2 07/19/17 18:00 114 07/19/17 17:22 99 Trach Collar 6.00 28 07/19/17 17:00 114 07/19/17 16:00 120 07/19/17 15:00 120 07/19/17 15:00 T-Piece 6.00 07/19/17 15:00 110/59 (76) 07/19/17 14:00 120 07/19/17 12:00 118 07/19/17 11:00 T-Piece 6.00 07/19/17 11:00 108 07/19/17 11:00 67 16 110/65 (80) 99 07/19/17 10:00 110 07/19/17 09:00 106 07/19/17 08:53 97 T-piece 5.00 28 07/19/17 08:00 98 07/19/17 07:45 T-Piece 6.00 07/19/17 07:00 104 07/19/17 07:00 77 16 126/75 (92) 99 07/19/17 06:00 98 07/19/17 05:00 92 07/19/17 04:31 100 35 07/19/17 04:21 Trach Collar 6.00 28 07/19/17 04:00 92 07/19/17 03:56 98.1 81 16 95/57 (70) 99 07/19/17 03:00 92 07/19/17 02:00 94 07/19/17 01:00 90 07/19/17 00:43 99 35 07/19/17 00:00 80 07/18/17 23:00 Trach Collar 6.00 28 07/18/17 23:00 97.9 50 16 95/57 (70) 100 07/18/17 23:00 80 07/18/17 22:00 102 07/18/17 21:00 94 I/O 07/18/17 07/18/17 07/18/17 07/19/17 07/19/17 07/19/17 07:00 15:00 23:00 07:00 15:00 23:00 Intake Total 260 ml 760 ml 480 ml 100 ml 720 ml Output Total 525 ml 250 ml 250 ml 800 ml Balance -265 ml 510 ml 230 ml 100 ml -80 ml Intake Oral 260 ml 760 ml 480 ml 720 ml IV Total 100 ml Output Urine Total 525 ml 250 ml 250 ml 800 ml Result Diagram: 07/18/17 0710 07/19/17 0539 Objective Remarks This is a moderately obese mid aged man with a trach HEENT: Head normocephalic. Pupils reactive . Throat is clear . Nasal mucosa is clear. Neck: Supple with trach tube in place. No thyromegaly. Chest: Distant breath sounds with Occ Wheeze scattered. Occ basal Crackles. Heart: The heart sounds were regular, S1-S2. No murmur or S3. Abdomen: Soft and benign. No masses. No organomegaly or tenderness. Bowel sounds active. Extremities: 1 + edema. Reflexes 1+ with no gross motor deficits. Neurologic: Moves all .he is oriented . Skin: No lesions observed. Assessment and Plan Assessment and Plan IMPRESSION 1. Chronic respiratory failure. 2. Chronic kidney disease stage III. 3. Atrial fibrillation and ASHD. 4. History of diabetes mellitus. 5. Hypertension. 6. S/P Trach Plan: 1. T collar 28% 2. Cont CPAP at HS 12/5 CM FIo2 25 % 3. Nebs qid , dioneb 4. Cont Eliquis 2.5 mg bid 5. PM Valve to talk . 6. Will get Sleep test as OP. 7. PT and OT. 8. CXR on Saturday Kurtis Patiño MD Jul 19, 2017 20:24
[2017-07-19] MEDS: ACETAMINOPHEN/HYDROcodone 325 MG/5 MG TAB PO PRN (21:31)
[2017-07-20] VITALS (29 sets, daily range): BP systolic 100–138; BP diastolic 61–84; PULSE 51–132; RESP 18–24; TEMP 97.6–98.3; O2SAT 97–100
[2017-07-20] MEDS: CHLORHEXIDINE GLUCONATE 2 % 1 PACK (2 CLOTHS) TOP SCH (04:00)
[2017-07-20] MEDS: METOPROLOL TARTRATE 100 MG TAB PO SCH ×2 (06:27→16:41)
[2017-07-20] MEDS: CHLORHEXIDINE 0.12% (ORAL KIT) 15 ML CUP MT SCH ×2 (06:52→20:00)
[2017-07-20 07:07] LABS: HEMATOCRIT 37.1 % (39.0-51.0); MEAN CELL VOLUME 88.6 FL (80.0-100.0); MEAN CORPUSCULAR HEMOGLOBIN 28.8 PG (27.0-34.0); MEAN CORPUSCULAR HGB CONC 32.5 % (32.0-36.0); PLATELET COUNT 195 TH/MM3 (150-450); RED BLOOD COUNT 4.19 MIL/MM3 (4.50-5.90); RED CELL DISTRIBUTION WIDTH 13.5 % (11.6-17.2); REVIEW FLAG FINAL; WHITE BLOOD COUNT 10.7 TH/MM3 (4.0-11.0)
[2017-07-20 07:38] LABS: BICARBONATE 24.9 MEQ/L (21.0-32.0); POTASSIUM 3.8 MEQ/L (3.5-5.1)
[2017-07-20] MEDS: AMIODARONE 200 MG TAB NG SCH (08:49)
[2017-07-20] MEDS: SODIUM CHLORIDE 0.9% FLUSH 10 ML FLUSH IV FLUSH SCH ×2 (08:49→20:39)
[2017-07-20] MEDS: APIXABAN 2.5 MG TABLET NG SCH ×2 (08:49→20:39)
[2017-07-20] MEDS: TOPIRAMATE 100 MG TAB PO SCH (08:49)
[2017-07-20] MEDS: DOCUSATE SODIUM 50 MG/SENNA 8.6 MG TAB PO SCH ×2 (08:49→20:40)
[2017-07-20] MEDS: ENALAPRIL MALEATE 5 MG TAB NG SCH (08:49)
[2017-07-20] MEDS: ARTIFICIAL TEARS OPTH SOLN 15 ML BTL EACH EYE SCH ×2 (08:50→16:41)
[2017-07-20] MEDS: PANTOPRAZOLE SODIUM 40 MG VIAL IV SCH (08:50)
--- NOTE | 2017-07-20 13:38 | HHI.PR ---
Objective Vitals Vital Signs Date Time Temp Pulse Resp B/P (MAP) Pulse Ox O2 Delivery O2 Flow Rate FiO2 07/20/17 12:00 T-Piece 6.00 35 07/20/17 12:00 104 07/20/17 12:00 97.8 79 24 138/84 (102) 100 07/20/17 11:00 108 07/20/17 10:00 104 07/20/17 09:10 97 Trach Collar 28 07/20/17 09:00 102 07/20/17 08:00 T-Piece 6.00 35 07/20/17 08:00 97.6 51 24 127/69 (88) 100 07/20/17 08:00 91 07/20/17 07:54 98.1 96 18 100/63 (75) 97 07/20/17 07:00 100 07/20/17 06:00 89 07/20/17 05:00 90 07/20/17 04:36 100 35 07/20/17 04:00 96 07/20/17 04:00 98.1 96 18 100/63 (75) 97 07/20/17 04:00 T-Piece 6.00 07/20/17 03:00 94 07/20/17 02:00 90 07/20/17 01:00 87 07/20/17 00:35 100 BiPAP 35 07/20/17 00:35 100 35 07/20/17 00:00 T-Piece 6.00 07/20/17 00:00 80 07/20/17 00:00 98.3 80 18 110/61 (77) 98 07/19/17 23:00 94 07/19/17 22:00 111 07/19/17 21:00 108 07/19/17 20:00 T-Piece 6.00 07/19/17 20:00 98.0 112 20 105/68 (80) 99 07/19/17 20:00 112 07/19/17 18:00 114 07/19/17 17:22 99 Trach Collar 6.00 28 07/19/17 17:00 114 07/19/17 16:00 120 07/19/17 15:00 120 07/19/17 15:00 T-Piece 6.00 07/19/17 15:00 110/59 (76) 07/19/17 14:00 120 I/O 07/19/17 07/19/17 07/19/17 07/20/17 07/20/17 07/20/17 07:00 15:00 23:00 07:00 15:00 23:00 Intake Total 480 ml 100 ml 720 ml 960 ml Output Total 250 ml 800 ml 1200 ml Balance 230 ml 100 ml -80 ml -240 ml Intake Oral 480 ml 720 ml 960 ml IV Total 100 ml Output Urine Total 250 ml 800 ml 1200 ml # Bowel Movements 2 Result Diagram: 07/20/17 0545 07/20/17 0545 Objective Remarks GENERAL: Morbidly obese, chronically ill-appearing male. Trached CARDIOVASCULAR: Normal rate and regular rhythm without murmurs, gallops, or rubs. RESPIRATORY: Trachea in place. Coarse breath sounds throughout. GASTROINTESTINAL: Morbidly obese. Hypoactive bowel sounds. Abdomen is soft, nontender. MUSCULOSKELETAL: Extremities with 2+ edema in bilateral lower extremities. NEURO: Awake. Alert. Able to mouth some words. PSYCH: Calm Procedures 06/17/17 intubation 06/17/17 CPR 06/17/17 right femoral arterial catheter placement 06/18/17 right IJ central line placement 06/22/17 fiberoptic bronchoscopy 06/24/17 right axillary arterial catheter placement 06/24/17 tracheostomy, bronchoscopy A/P Problem List: (1) Hypotension ICD Code: I95.9 - Hypotension, unspecified Status: Acute (2) Symptomatic bradycardia ICD Code: R00.1 - Bradycardia, unspecified Status: Acute (3) CKD (chronic kidney disease), stage III ICD Code: N18.3 - Chronic kidney disease, stage 3 (moderate) Status: Chronic (4) Chronic systolic CHF (congestive heart failure) ICD Code: I50.22 - Chronic systolic (congestive) heart failure Status: Chronic (5) Atrial fibrillation ICD Code: I48.91 - Unspecified atrial fibrillation Status: Chronic (6) Acute worsening of stage 3 chronic kidney disease ICD Code: N18.3 - Chronic kidney disease, stage 3 (moderate) Status: Acute (7) Thrombocytopenia ICD Code: D69.6 - Thrombocytopenia, unspecified Status: Chronic Assessment and Plan In summary this is a 57-year-old male with complex comorbidities including ischemic heart disease, cardiomyopathy, chronic kidney disease, atrial fibrillation, status post cardiogenic shock and PEA cardiac arrest. Patient has had a prolonged ICU course. He has a trach. He is improving and have since moved to the floor. Continue rehabilitation efforts. Cardiogenic shock status post PEA cardiac arrest/Chronic systolic congestive heart failure: Clinically stable currently. Patient was followed by cardiology. Reconsult Cardiology for persistent Afib - EF less than 20%. Continue beta obdulio, FABRICE inhibitor, and diuretics. Atrial fibrillation: Cardiology following. Rate is better controlled. Continue Eliquis at a lower dose 2.5 mg twice a day given renal failure. Continue amiodarone, metoprolol. Resp Failure, trached after bone marrow biopsy. Acute hypoxic respiratory failure: Status post mechanical ventilation. Tolerating T piece. Continue bronchodilators, supplemental oxygen. Trach management per pulmonology. - Levsin as needed for secretions. Acute kidney injury superimposed on chronic kidney disease, stage III: BUN and creatinine fluctuating. Avoid nephrotoxic medications. Appreciate nephrology recommendations. Anderson catheter in place. Seizure disorder: Continue Topamax. Thrombocytopenia: Appreciate hematology recommendations. Status post bone marrow biopsy. - Thrombocytopenia resolved. Morbid obesity, acute mild protein energy malnutrition: He is eating better. Continue diet per speech as tolerated. HCAP/aspiration pneumonia: Sputum culture 06/20 growing Enterobacter. Completed course of cefepime, Flagyl. Now off antibiotics. GI prophylaxis: Protonix. Diabetes mellitus: Monitor Accu-Cheks and cover with sliding scale insulin. DVT prophylaxis: Eliquis. Discharge Planning Transfer to floor today. Problem Qualifiers (1) Hypotension: Popeye Dennison MD Jul 20, 2017 13:38
--- NOTE | 2017-07-20 14:28 | HHI.PR ---
Subjective Remarks Patient has no new complaints. Resting in bed. No issues overnight. Objective Vitals Vital Signs Date Time Temp Pulse Resp B/P (MAP) Pulse Ox O2 Delivery O2 Flow Rate FiO2 07/20/17 12:00 T-Piece 6.00 35 07/20/17 12:00 104 07/20/17 12:00 97.8 79 24 138/84 (102) 100 07/20/17 11:00 108 07/20/17 10:00 104 07/20/17 09:10 97 Trach Collar 28 07/20/17 09:00 102 07/20/17 08:00 T-Piece 6.00 35 07/20/17 08:00 97.6 51 24 127/69 (88) 100 07/20/17 08:00 91 07/20/17 07:54 98.1 96 18 100/63 (75) 97 07/20/17 07:00 100 07/20/17 06:00 89 07/20/17 05:00 90 07/20/17 04:36 100 35 07/20/17 04:00 96 07/20/17 04:00 98.1 96 18 100/63 (75) 97 07/20/17 04:00 T-Piece 6.00 07/20/17 03:00 94 07/20/17 02:00 90 07/20/17 01:00 87 07/20/17 00:35 100 BiPAP 35 07/20/17 00:35 100 35 07/20/17 00:00 T-Piece 6.00 07/20/17 00:00 80 07/20/17 00:00 98.3 80 18 110/61 (77) 98 07/19/17 23:00 94 07/19/17 22:00 111 07/19/17 21:00 108 07/19/17 20:00 T-Piece 6.00 07/19/17 20:00 98.0 112 20 105/68 (80) 99 07/19/17 20:00 112 07/19/17 18:00 114 07/19/17 17:22 99 Trach Collar 6.00 28 07/19/17 17:00 114 07/19/17 16:00 120 07/19/17 15:00 120 07/19/17 15:00 T-Piece 6.00 9/15/17 15:00 110/59 (76) I/O 07/19/17 07/19/17 07/19/17 07/20/17 07/20/17 07/20/17 07:00 15:00 23:00 07:00 15:00 23:00 Intake Total 480 ml 100 ml 720 ml 960 ml Output Total 250 ml 800 ml 1200 ml Balance 230 ml 100 ml -80 ml -240 ml Intake Oral 480 ml 720 ml 960 ml IV Total 100 ml Output Urine Total 250 ml 800 ml 1200 ml # Bowel Movements 2 Result Diagram: 07/20/17 0545 07/20/1745 Objective Remarks GENERAL: Morbidly obese, chronically ill-appearing male. Trached CARDIOVASCULAR: Normal rate and regular rhythm without murmurs, gallops, or rubs. RESPIRATORY: Trachea in place. Coarse breath sounds throughout. GASTROINTESTINAL: Morbidly obese. Hypoactive bowel sounds. Abdomen is soft, nontender. MUSCULOSKELETAL: Extremities with 2+ edema in bilateral lower extremities. NEURO: Awake. Alert. Able to mouth some words. PSYCH: Calm Procedures 06/17/17 intubation 06/17/17 CPR 06/17/17 right femoral arterial catheter placement 06/18/17 right IJ central line placement 06/22/17 fiberoptic bronchoscopy 06/24/17 right axillary arterial catheter placement 06/24/17 tracheostomy, bronchoscopy A/P Problem List: (1) Hypotension ICD Code: I95.9 - Hypotension, unspecified Status: Acute (2) Symptomatic bradycardia ICD Code: R00.1 - Bradycardia, unspecified Status: Acute (3) CKD (chronic kidney disease), stage III ICD Code: N18.3 - Chronic kidney disease, stage 3 (moderate) Status: Chronic (4) Chronic systolic CHF (congestive heart failure) ICD Code: I50.22 - Chronic systolic (congestive) heart failure Status: Chronic (5) Atrial fibrillation ICD Code: I48.91 - Unspecified atrial fibrillation Status: Chronic (6) Acute worsening of stage 3 chronic kidney disease ICD Code: N18.3 - Chronic kidney disease, stage 3 (moderate) Status: Acute (7) Thrombocytopenia ICD Code: D69.6 - Thrombocytopenia, unspecified Status: Chronic Assessment and Plan In summary this is a 57-year-old male with complex comorbidities including ischemic heart disease, cardiomyopathy, chronic kidney disease, atrial fibrillation, status post cardiogenic shock and PEA cardiac arrest. Patient has had a prolonged ICU course. He has a trach. He is improving and have since moved to the floor. Continue rehabilitation efforts. Cardiogenic shock status post PEA cardiac arrest/Chronic systolic congestive heart failure: Clinically stable currently. Patient was followed by cardiology. Reconsult Cardiology for persistent Afib - EF less than 20%. Continue beta obdulio, FABRICE inhibitor, and diuretics. Atrial fibrillation: Cardiology following. Rate is better controlled. Continue Eliquis at a lower dose 2.5 mg twice a day given renal failure. Continue amiodarone, metoprolol. Resp Failure, trached after bone marrow biopsy. Acute hypoxic respiratory failure: Status post mechanical ventilation. Tolerating T piece. Continue bronchodilators, supplemental oxygen. Trach management per pulmonology. - Levsin as needed for secretions. Acute kidney injury superimposed on chronic kidney disease, stage III: BUN and creatinine increasing. Avoid nephrotoxic medications. Appreciate nephrology recommendations. Anderson catheter in place. He was given a dose of Bumex yesterday. Continue to follow renal functions. Further plans per nephrology. Seizure disorder: Continue Topamax. Thrombocytopenia: Appreciate hematology recommendations. Status post bone marrow biopsy. - Thrombocytopenia resolved. Morbid obesity, acute mild protein energy malnutrition: He is eating better. Continue diet per speech as tolerated. HCAP/aspiration pneumonia: Sputum culture 06/20 growing Enterobacter. Completed course of cefepime, Flagyl. Now off antibiotics. GI prophylaxis: Protonix. Diabetes mellitus: Monitor Accu-Cheks and cover with sliding scale insulin. DVT prophylaxis: Eliquis. Discharge Planning Transfer to floor when a bed is available. Problem Qualifiers (1) Hypotension: Popeye Dennison MD Jul 20, 2017 14:28
--- NOTE | 2017-07-20 15:06 | HHI.NPPN ---
Subjective History of Present Illness 57-year-old -[place] male with past medical history of seizure disorder, ischemic heart disease, cardiomyopathy, chronic kidney disease, hypertension, diabetes mellitus, atrial fibrillation who was admitted more than three weeks ago for shortness of breath. I was called to see the patient for elevated BUN and creatinine. The patient has a known history of chronic kidney disease and it seems like his baseline creatinine has been in the range of 1.4 to 1.7. Additional Remarks resting in bed. Renal function is slightly worse. Review of Systems Respiratory Lungs: SOB, Cough, Sputum, Wheeze Cardiovascular Cardiac: Edema, GATES Objective Data Data Vital Signs Date Time Temp Pulse Resp B/P (MAP) Pulse Ox O2 Delivery O2 Flow Rate FiO2 07/20/17 12:00 T-Piece 6.00 35 07/20/17 12:00 104 07/20/17 12:00 97.8 79 24 138/84 (102) 100 07/20/17 11:00 108 07/20/17 10:00 104 07/20/17 09:10 97 Trach Collar 28 07/20/17 09:00 102 07/20/17 08:00 T-Piece 6.00 35 07/20/17 08:00 97.6 51 24 127/69 (88) 100 07/20/17 08:00 91 07/20/17 07:54 98.1 96 18 100/63 (75) 97 07/20/17 07:00 100 07/20/17 06:00 89 07/20/17 05:00 90 07/20/17 04:36 100 35 07/20/17 04:00 96 07/20/17 04:00 98.1 96 18 100/63 (75) 97 07/20/17 04:00 T-Piece 6.00 07/20/17 03:00 94 07/20/17 02:00 90 07/20/17 01:00 87 07/20/17 00:35 100 BiPAP 35 07/20/17 00:35 100 35 07/20/17 00:00 T-Piece 6.00 07/20/17 00:00 80 07/20/17 00:00 98.3 80 18 110/61 (77) 98 07/19/17 23:00 94 07/19/17 22:00 111 07/19/17 21:00 108 07/19/17 20:00 T-Piece 6.00 07/19/17 20:00 98.0 112 20 105/68 (80) 99 07/19/17 20:00 112 07/19/17 18:00 114 07/19/17 17:22 99 Trach Collar 6.00 28 07/19/17 17:00 114 07/19/17 16:00 120 07/19/17 15:00 120 07/19/17 15:00 T-Piece 6.00 07/19/17 15:00 110/59 (76) -: 07/20/17 0545 07/20/17 0545 Physical Exam General Appearance: No Acute Distress, Comfortable Eyes Eye Exam: Pupils Equal Throat Throat Exam: Oral Mucosa [place] & Moist Neck Neck Exam: Neck Supple Pulmonary Resp Exam: Crackles, Rhonchi, Sputum, Decreased Bases, Diminished Breath Sounds Gastrointestinal/Abdomen GI Exam: Soft, Non-Tender, Bowel Sounds Present, Distended Extremeties Extremities Exam: Moderate Edema, Pitting Edema, Dependent Edema Neurologic Neuro Exam: Alert, Awake, Oriented Psychiatric Psych Exam: Appropriate Responses Assessment/Plan Assessment Summary: [place]/Acute Renal Failure, CKD Stage III Problem List: (1) Acute kidney injury ICD Codes: N17.9 - Acute kidney failure, unspecified (2) CHF (congestive heart failure) ICD Codes: I50.9 - Heart failure, unspecified Status: Resolved (3) DM (diabetes mellitus) ICD Codes: E11.9 - Type 2 diabetes mellitus without complications Status: Chronic (4) Peripheral edema ICD Codes: R60.9 - Edema, unspecified Status: Acute (5) Atrial fibrillation ICD Codes: I48.91 - Unspecified atrial fibrillation Status: Chronic (6) Atrial fibrillation with RVR ICD Codes: I48.91 - Unspecified atrial fibrillation Status: Resolved (7) CKD (chronic kidney disease), stage III ICD Codes: N18.3 - Chronic kidney disease, stage 3 (moderate) Status: Chronic Plan He has chronic kidney disease and the baseline Creatinine is close to 1.7-1.8. Most likely has underlying Hypertensive or cardiorenal disease, EF 20% placed on ACEI by Cardiology On Bumex. Follow the urine out put and BMP. Avoid Nephrotoxins. Manuel Hartley MD Jul 20, 2017 15:06
[2017-07-20] MEDS: HYOSCYAMINE 0.125 MG TAB PO PRN ×3 (16:06→20:40)
[2017-07-20] MEDS: ONDANSETRON HCL 4 MG/2 ML VIAL IV PRN (18:00)
[2017-07-20] MEDS: ACETAMINOPHEN/HYDROcodone 325 MG/5 MG TAB PO PRN (20:41)
[2017-07-21] VITALS (26 sets, daily range): BP systolic 101–124; BP diastolic 60–74; PULSE 61–116; RESP 18–21; TEMP 98.1–98.5; O2SAT 97–100
[2017-07-21] MEDS: CHLORHEXIDINE GLUCONATE 2 % 1 PACK (2 CLOTHS) TOP SCH (04:00)
[2017-07-21] MEDS: METOPROLOL TARTRATE 100 MG TAB PO SCH ×2 (05:50→17:14)
[2017-07-21 06:59] LABS: HEMATOCRIT 36.9 % (39.0-51.0); MEAN CELL VOLUME 90.3 FL (80.0-100.0); MEAN CORPUSCULAR HEMOGLOBIN 29.3 PG (27.0-34.0); MEAN CORPUSCULAR HGB CONC 32.5 % (32.0-36.0); PLATELET COUNT 175 TH/MM3 (150-450); RED BLOOD COUNT 4.09 MIL/MM3 (4.50-5.90); RED CELL DISTRIBUTION WIDTH 13.7 % (11.6-17.2); REVIEW FLAG FINAL; WHITE BLOOD COUNT 10.9 TH/MM3 (4.0-11.0)
[2017-07-21 07:11] LABS: BICARBONATE 23.9 MEQ/L (21.0-32.0); POTASSIUM 3.8 MEQ/L (3.5-5.1)
[2017-07-21] MEDS: CHLORHEXIDINE 0.12% (ORAL KIT) 15 ML CUP MT SCH ×2 (07:13→20:00)
[2017-07-21] MEDS: PANTOPRAZOLE SODIUM 40 MG VIAL IV SCH (08:01)
[2017-07-21] MEDS: APIXABAN 2.5 MG TABLET NG SCH ×2 (08:03→20:06)
[2017-07-21] MEDS: DOCUSATE SODIUM 50 MG/SENNA 8.6 MG TAB PO SCH ×2 (08:04→20:06)
[2017-07-21] MEDS: TOPIRAMATE 100 MG TAB PO SCH (08:04)
[2017-07-21] MEDS: AMIODARONE 200 MG TAB NG SCH (08:05)
[2017-07-21] MEDS: ENALAPRIL MALEATE 5 MG TAB NG SCH (08:05)
[2017-07-21] MEDS: HYOSCYAMINE 0.125 MG TAB PO PRN ×2 (08:07→20:07)
[2017-07-21] MEDS: SODIUM CHLORIDE 0.9% FLUSH 10 ML FLUSH IV FLUSH SCH ×2 (08:08→20:07)
[2017-07-21] MEDS: ARTIFICIAL TEARS OPTH SOLN 15 ML BTL EACH EYE SCH ×3 (08:11→17:38)
--- NOTE | 2017-07-21 10:59 | HHI.PR ---
Subjective Remarks Patient states he is doing okay. No acute events overnight. Objective Vitals Vital Signs Date Time Temp Pulse Resp B/P (MAP) Pulse Ox O2 Delivery O2 Flow Rate FiO2 07/21/17 08:25 98.3 63 21 105/73 (84) 100 07/21/17 08:25 80 07/21/17 08:25 Trach Collar 5.00 28 07/21/17 08:17 5.00 28 07/21/17 08:17 97 Trach Collar 5.00 28 07/21/17 06:00 90 07/21/17 05:00 86 07/21/17 04:00 T-Piece 6.00 35 07/21/17 04:00 82 07/21/17 04:00 98.1 83 18 124/73 (90) 98 07/21/17 03:52 98 35 07/21/17 03:00 83 07/21/17 02:00 80 07/21/17 01:00 77 07/21/17 00:00 T-Piece 6.00 35 07/21/17 00:00 98.3 79 18 119/65 (83) 99 07/21/17 00:00 79 07/20/17 23:00 83 07/20/17 22:33 98 BiPAP 35 07/20/17 22:31 98 35 07/20/17 22:00 84 07/20/17 21:00 90 07/20/17 20:00 T-Piece 6.00 35 07/20/17 20:00 98.0 91 20 111/67 (82) 99 07/20/17 20:00 91 07/20/17 18:00 122 07/20/17 17:00 132 07/20/17 16:00 97.9 63 20 115/63 (80) 98 07/20/17 16:00 T-Piece 6.00 35 07/20/17 16:00 99 07/20/17 15:00 104 07/20/17 14:00 100 07/20/17 13:00 102 07/20/17 12:00 T-Piece 6.00 35 07/20/17 12:00 104 07/20/17 12:00 97.8 79 24 138/84 (102) 100 07/20/17 11:00 108 I/O 9/16/17 9/1607/20/17 07/21/17 07/21/17 07/21/17 07:00 15:00 23:00 07:00 15:00 23:00 Intake Total 960 ml 600 ml 480 ml Output Total 1200 ml 600 ml 1000 ml Balance -240 ml 0 ml -520 ml Intake Oral 960 ml 600 ml 480 ml Output Urine Total 1200 ml 600 ml 1000 ml # Bowel Movements 2 1 0 Result Diagram: 07/21/17 0550 07/21/17 0550 Objective Remarks GENERAL: Morbidly obese, chronically ill-appearing male. Trached CARDIOVASCULAR: Normal rate and regular rhythm without murmurs, gallops, or rubs. RESPIRATORY: Trachea in place. Coarse breath sounds throughout. GASTROINTESTINAL: Morbidly obese. Hypoactive bowel sounds. Abdomen is soft, nontender. MUSCULOSKELETAL: Extremities with 1+ edema in bilateral lower extremities. NEURO: Awake. Alert. Able to mouth some words. PSYCH: Calm Procedures 06/17/17 intubation 06/17/17 CPR 06/17/17 right femoral arterial catheter placement 06/18/17 right IJ central line placement 06/22/17 fiberoptic bronchoscopy 06/24/17 right axillary arterial catheter placement 06/24/17 tracheostomy, bronchoscopy A/P Problem List: (1) Hypotension ICD Code: I95.9 - Hypotension, unspecified Status: Acute (2) Symptomatic bradycardia ICD Code: R00.1 - Bradycardia, unspecified Status: Acute (3) CKD (chronic kidney disease), stage III ICD Code: N18.3 - Chronic kidney disease, stage 3 (moderate) Status: Chronic (4) Chronic systolic CHF (congestive heart failure) ICD Code: I50.22 - Chronic systolic (congestive) heart failure Status: Chronic (5) Atrial fibrillation ICD Code: I48.91 - Unspecified atrial fibrillation Status: Chronic (6) Acute worsening of stage 3 chronic kidney disease ICD Code: N18.3 - Chronic kidney disease, stage 3 (moderate) Status: Acute (7) Thrombocytopenia ICD Code: D69.6 - Thrombocytopenia, unspecified Status: Chronic Assessment and Plan In summary this is a 57-year-old male with complex comorbidities including ischemic heart disease, cardiomyopathy, chronic kidney disease, atrial fibrillation, status post cardiogenic shock and PEA cardiac arrest. Patient has had a prolonged ICU course. He has a trach. He is improving and have since moved to the floor. Continue rehabilitation efforts. Cardiogenic shock status post PEA cardiac arrest/Chronic systolic congestive heart failure: Clinically stable currently. Patient was followed by cardiology. Reconsult Cardiology for persistent Afib - EF less than 20%. Continue beta obdulio, FABRICE inhibitor, and diuretics. Atrial fibrillation: Cardiology following. Rate is better controlled. Continue Eliquis at a lower dose 2.5 mg twice a day given renal failure. Continue amiodarone, metoprolol. Resp Failure, trached after bone marrow biopsy. Acute hypoxic respiratory failure: Status post mechanical ventilation. Tolerating T piece. Continue bronchodilators, supplemental oxygen. Trach management per pulmonology. - Levsin as needed for secretions. Acute kidney injury superimposed on chronic kidney disease, stage III: BUN and creatinine fluctuating. Avoid nephrotoxic medications. Appreciate nephrology recommendations. Anderson catheter in place. Continue to follow renal functions. Further plans per nephrology. Seizure disorder: Continue Topamax. Thrombocytopenia: Appreciate hematology recommendations. Status post bone marrow biopsy. - Thrombocytopenia resolved. Morbid obesity, acute mild protein energy malnutrition: He is eating better. Continue diet per speech as tolerated. HCAP/aspiration pneumonia: Sputum culture 06/20 growing Enterobacter. Completed course of cefepime, Flagyl. Now off antibiotics. GI prophylaxis: Protonix. Diabetes mellitus: Monitor Accu-Cheks and cover with sliding scale insulin. DVT prophylaxis: Eliquis. Discharge Planning Transfer to floor when a bed is available. Problem Qualifiers (1) Hypotension: Popeye Dennison MD Jul 21, 2017 10:59
--- NOTE | 2017-07-21 11:28 | HHI.NPPN ---
Subjective History of Present Illness 57-year-old -[place] male with past medical history of seizure disorder, ischemic heart disease, cardiomyopathy, chronic kidney disease, hypertension, diabetes mellitus, atrial fibrillation who was admitted more than three weeks ago for shortness of breath. I was called to see the patient for elevated BUN and creatinine. The patient has a known history of chronic kidney disease and it seems like his baseline creatinine has been in the range of 1.4 to 1.7. Additional Remarks resting in bed. Renal function is stable, improved. Review of Systems Respiratory Lungs: SOB, Cough, Sputum, Wheeze Cardiovascular Cardiac: Edema, GATES Objective Data Data Vital Signs Date Time Temp Pulse Resp B/P (MAP) Pulse Ox O2 Delivery O2 Flow Rate FiO2 07/21/17 08:25 98.3 63 21 105/73 (84) 100 07/21/17 08:25 80 07/21/17 08:25 Trach Collar 5.00 28 07/21/17 08:17 5.00 28 07/21/17 08:17 97 Trach Collar 5.00 28 07/21/17 06:00 90 07/21/17 05:00 86 07/21/17 04:00 T-Piece 6.00 35 07/21/17 04:00 82 07/21/17 04:00 98.1 83 18 124/73 (90) 98 07/21/17 03:52 98 35 07/21/17 03:00 83 07/21/17 02:00 80 07/21/17 01:00 77 07/21/17 00:00 T-Piece 6.00 35 07/21/17 00:00 98.3 79 18 119/65 (83) 99 07/21/17 00:00 79 07/20/17 23:00 83 07/20/17 22:33 98 BiPAP 35 07/20/17 22:31 98 35 07/20/17 22:00 84 07/20/17 21:00 90 07/20/17 20:00 T-Piece 6.00 35 07/20/17 20:00 98.0 91 20 111/67 (82) 99 07/20/17 20:00 91 07/20/17 18:00 122 07/20/17 17:00 132 07/20/17 16:00 97.9 63 20 115/63 (80) 98 07/20/17 16:00 T-Piece 6.00 35 07/20/17 16:00 99 07/20/17 15:00 104 07/20/17 14:00 100 07/20/17 13:00 102 07/20/17 12:00 T-Piece 6.00 35 07/20/17 12:00 104 07/20/17 12:00 97.8 79 24 138/84 (102) 100 -: 07/21/17 0550 07/21/17 0550 Physical Exam General Appearance: No Acute Distress, Comfortable Eyes Eye Exam: Pupils Equal Throat Throat Exam: Oral Mucosa [place] & Moist Neck Neck Exam: Neck Supple Pulmonary Resp Exam: Crackles, Rhonchi, Sputum, Decreased Bases, Diminished Breath Sounds Gastrointestinal/Abdomen GI Exam: Soft, Non-Tender, Bowel Sounds Present, Distended Extremeties Extremities Exam: Moderate Edema, Pitting Edema, Dependent Edema Neurologic Neuro Exam: Alert, Awake, Oriented Psychiatric Psych Exam: Appropriate Responses Assessment/Plan Assessment Summary: DENNYS/Acute Renal Failure, CKD Stage III Problem List: (1) Acute kidney injury ICD Codes: N17.9 - Acute kidney failure, unspecified (2) CHF (congestive heart failure) ICD Codes: I50.9 - Heart failure, unspecified Status: Resolved (3) DM (diabetes mellitus) ICD Codes: E11.9 - Type 2 diabetes mellitus without complications Status: Chronic (4) Peripheral edema ICD Codes: R60.9 - Edema, unspecified Status: Acute (5) Atrial fibrillation ICD Codes: I48.91 - Unspecified atrial fibrillation Status: Chronic (6) Atrial fibrillation with RVR ICD Codes: I48.91 - Unspecified atrial fibrillation Status: Resolved (7) CKD (chronic kidney disease), stage III ICD Codes: N18.3 - Chronic kidney disease, stage 3 (moderate) Status: Chronic Plan He has chronic kidney disease and the baseline Creatinine is close to 1.7-1.8. Most likely has underlying Hypertensive or cardiorenal disease, EF 20% placed on ACEI by Cardiology On Bumex. Follow the urine out put and BMP. GFR is stable. Avoid Nephrotoxins. Manuel Hartley MD Jul 21, 2017 11:28
[2017-07-21] MEDS: ACETAMINOPHEN/HYDROcodone 325 MG/5 MG TAB PO PRN (20:06)
[2017-07-22] VITALS (27 sets, daily range): BP systolic 92–114; BP diastolic 49–74; PULSE 77–120; RESP 18; TEMP 97.1–98.6; O2SAT 96–99
[2017-07-22] MEDS: CHLORHEXIDINE GLUCONATE 2 % 1 PACK (2 CLOTHS) TOP SCH ×2 (02:57→22:56)
[2017-07-22] MEDS: METOPROLOL TARTRATE 100 MG TAB PO SCH ×2 (05:43→17:18)
[2017-07-22] MEDS: CHLORHEXIDINE 0.12% (ORAL KIT) 15 ML CUP MT SCH ×2 (08:00→20:00)
[2017-07-22] MEDS: ARTIFICIAL TEARS OPTH SOLN 15 ML BTL EACH EYE SCH ×3 (09:28→17:18)
[2017-07-22] MEDS: AMIODARONE 200 MG TAB NG SCH (09:29)
[2017-07-22] MEDS: ENALAPRIL MALEATE 5 MG TAB NG SCH (09:29)
[2017-07-22] MEDS: DOCUSATE SODIUM 50 MG/SENNA 8.6 MG TAB PO SCH ×2 (09:29→21:19)
[2017-07-22] MEDS: SODIUM CHLORIDE 0.9% FLUSH 10 ML FLUSH IV FLUSH SCH ×2 (09:29→21:19)
[2017-07-22] MEDS: PANTOPRAZOLE SODIUM 40 MG VIAL IV SCH (09:29)
[2017-07-22] MEDS: APIXABAN 2.5 MG TABLET NG SCH ×2 (09:29→21:19)
[2017-07-22] MEDS: TOPIRAMATE 100 MG TAB PO SCH (09:29)
--- NOTE | 2017-07-22 10:16 | HHI.PR ---
Subjective Remarks Patient in the chair this morning. He does not like the chair. Otherwise no new complaints. Objective Vitals Vital Signs Date Time Temp Pulse Resp B/P (MAP) Pulse Ox O2 Delivery O2 Flow Rate FiO2 07/22/17 06:00 80 07/22/17 05:00 82 07/22/17 04:03 98.1 85 18 105/69 (81) 99 07/22/17 04:00 85 07/22/17 03:00 79 07/22/17 02:00 82 07/22/17 01:09 98 Trach Collar 5.00 28 07/22/17 01:00 86 07/22/17 00:00 89 07/22/17 00:00 T-Piece 5.00 28 07/22/17 00:00 98.4 89 18 111/65 (80) 97 07/21/17 23:00 86 07/21/17 22:00 94 07/21/17 21:00 80 07/21/17 20:00 98.1 85 18 119/73 (88) 98 07/21/17 20:00 85 07/21/17 20:00 T-Piece 5.00 28 07/21/17 18:13 80 07/21/17 17:00 108 07/21/17 16:24 98 07/21/17 16:18 98.5 75 20 101/60 (74) 99 07/21/17 16:00 Trach Collar 5.00 28 07/21/17 15:00 116 07/21/17 14:00 108 07/21/17 13:00 112 07/21/17 12:12 98.1 61 19 110/74 (86) 99 07/21/17 12:12 95 07/21/17 12:12 Trach Collar 5.00 28 07/21/17 11:00 98 I/O 07/21/17 07/21/17 07/21/17 07/22/17 07/22/17 07/22/17 07:00 15:00 23:00 07:00 15:00 23:00 Intake Total 480 ml 720 ml 240 ml Output Total 1000 ml 400 ml 500 ml Balance -520 ml 320 ml -260 ml Intake Oral 480 ml 720 ml 240 ml Output Urine Total 1000 ml 400 ml 500 ml # Bowel Movements 0 0 Result Diagram: 07/21/17 0550 07/21/17 0550 Objective Remarks GENERAL: Morbidly obese, chronically ill-appearing male. Trached CARDIOVASCULAR: Normal rate and regular rhythm without murmurs, gallops, or rubs. RESPIRATORY: Trachea in place. Coarse breath sounds throughout. GASTROINTESTINAL: Morbidly obese. Hypoactive bowel sounds. Abdomen is soft, nontender. MUSCULOSKELETAL: Extremities with 1+ edema in bilateral lower extremities. NEURO: Awake. Alert. Able to mouth some words. PSYCH: Calm Procedures 06/17/17 intubation 06/17/17 CPR 06/17/17 right femoral arterial catheter placement 06/18/17 right IJ central line placement 06/22/17 fiberoptic bronchoscopy 06/24/17 right axillary arterial catheter placement 06/24/17 tracheostomy, bronchoscopy A/P Problem List: (1) Hypotension ICD Code: I95.9 - Hypotension, unspecified Status: Acute (2) Symptomatic bradycardia ICD Code: R00.1 - Bradycardia, unspecified Status: Acute (3) CKD (chronic kidney disease), stage III ICD Code: N18.3 - Chronic kidney disease, stage 3 (moderate) Status: Chronic (4) Chronic systolic CHF (congestive heart failure) ICD Code: I50.22 - Chronic systolic (congestive) heart failure Status: Chronic (5) Atrial fibrillation ICD Code: I48.91 - Unspecified atrial fibrillation Status: Chronic (6) Acute worsening of stage 3 chronic kidney disease ICD Code: N18.3 - Chronic kidney disease, stage 3 (moderate) Status: Acute (7) Thrombocytopenia ICD Code: D69.6 - Thrombocytopenia, unspecified Status: Chronic Assessment and Plan In summary this is a 57-year-old male with complex comorbidities including ischemic heart disease, cardiomyopathy, chronic kidney disease, atrial fibrillation, status post cardiogenic shock and PEA cardiac arrest. Patient has had a prolonged ICU course. He has a trach. He is improving and have since moved to the floor. Continue rehabilitation efforts. Cardiogenic shock status post PEA cardiac arrest/Chronic systolic congestive heart failure: Clinically stable currently. Patient was followed by cardiology. Reconsult Cardiology for persistent Afib - EF less than 20%. Continue beta obdulio, FABRICE inhibitor, and diuretics. Atrial fibrillation: Cardiology following. Rate is better controlled. Continue Eliquis at a lower dose 2.5 mg twice a day given renal failure. Continue amiodarone, metoprolol. Resp Failure, trached after bone marrow biopsy. Acute hypoxic respiratory failure: Status post mechanical ventilation. Tolerating T piece. Continue bronchodilators, supplemental oxygen. Trach management per pulmonology. - Levsin as needed for secretions. Acute kidney injury superimposed on chronic kidney disease, stage III: BUN and creatinine fluctuating. Avoid nephrotoxic medications. Appreciate nephrology recommendations. Anderson catheter in place. Continue to follow renal functions. Further plans per nephrology. Seizure disorder: Continue Topamax. Thrombocytopenia: Appreciate hematology recommendations. Status post bone marrow biopsy. - Thrombocytopenia resolved. Morbid obesity, acute mild protein energy malnutrition: He is eating better. Continue diet per speech as tolerated. HCAP/aspiration pneumonia: Sputum culture 06/20 growing Enterobacter. Completed course of cefepime, Flagyl. Now off antibiotics. GI prophylaxis: Protonix. Diabetes mellitus: Monitor Accu-Cheks and cover with sliding scale insulin. DVT prophylaxis: Eliquis. Discharge Planning Transfer to floor when a bed is available. Awaiting for placement at [facility]. Problem Qualifiers (1) Hypotension: Popeye Dennison MD Jul 22, 2017 10:16
--- NOTE | 2017-07-22 12:25 | PD.ONC.PN ---
Subjective Subjective Remarks Pleasant. He thanks the Lord for his well being. Offers no discomfort or complaints. Discussed at length his platelets. Objective Data Date Time Temp Pulse Resp B/P (MAP) Pulse Ox O2 Delivery O2 Flow Rate FiO2 07/22/17 12:16 98 07/22/17 11:15 116 07/22/17 11:15 97 Nasal Cannula 2.00 07/22/17 11:15 97.2 80 18 92/52 (65) 97 07/22/17 10:00 108 07/22/17 09:00 120 07/22/17 08:30 96 Trach Collar 6.00 28 07/22/17 08:30 Nasal Cannula 2.00 07/22/17 08:15 97.1 78 18 100/62 (75) 99 07/22/17 08:15 89 07/22/17 08:15 99 Trach Collar 5.00 28 07/22/17 06:00 80 07/22/17 05:00 82 07/22/17 04:03 98.1 85 18 105/69 (81) 99 07/22/17 04:00 85 07/22/17 03:00 79 07/22/17 02:00 82 07/22/17 01:09 98 Trach Collar 5.00 28 07/22/17 01:00 86 07/22/17 00:00 89 07/22/17 00:00 T-Piece 5.00 28 07/22/17 00:00 98.4 89 18 111/65 (80) 97 07/21/17 23:00 86 07/21/17 22:00 94 07/21/17 21:00 80 07/21/17 20:00 98.1 85 18 119/73 (88) 98 07/21/17 20:00 85 07/21/17 20:00 T-Piece 5.00 28 07/21/17 18:13 80 07/21/17 17:00 108 07/21/17 16:24 98 07/21/17 16:18 98.5 75 20 101/60 (74) 99 07/21/17 16:00 Trach Collar 5.00 28 07/21/17 15:00 116 07/21/17 14:00 108 07/21/17 13:00 112 07/22/17 07/22/17 07/22/17 07:00 15:00 23:00 Intake Total 240 ml Output Total 500 ml Balance -260 ml Result Diagram: 07/21/17 0550 07/21/17 0550 Laboratory Results Laboratory Tests Test 07/22/17 11:56 Administered Medications Medications (Trade) Dose Ordered Sig/Ashok Route PRN Reason Start Time Stop Time Status Last Admin Dose Admin Topiramate (Topamax) 100 mg DAILY PO 06/14/17 11:00 07/22/17 09:29 Acetaminophen (Tylenol) 650 mg Q6H PRN PO FEVER 06/15/17 21:30 06/30/17 20:37 Chlorhexidine Gluconate (Peridex 0.12% Liq) 15 ml BID@08,20 MT 06/17/17 20:00 07/20/17 20:00 Sodium Chloride (NS Flush) 2 ml BID IV FLUSH 06/17/17 21:00 07/22/17 09:29 Pantoprazole Sodium (Protonix Inj) 40 mg DAILY IV 06/18/17 09:00 07/22/17 09:29 Artificial Tears (Tears Naturale Opth Soln) 1 drop TID EACH EYE 06/17/17 18:00 07/22/17 09:28 Ondansetron HCl (Zofran Inj) 4 mg Q6H PRN IV NAUSEA OR VOMITING 06/17/17 14:15 07/20/17 18:00 Albuterol Sulfate (Albuterol Neb) 2.5 mg Q2HR NEB PRN INH SOB/WHEEZING 06/17/17 14:15 07/19/17 01:04 Chlorhexidine Gluconate (Chlorhexidine 2% Cloth) Taper DAILY@04 TOP 06/18/17 04:00 06/14/18 03:59 07/17/17 04:00 Senna/Docusate Sodium (Marilee-Colace) 1 tab BID PO 06/17/17 21:00 07/22/17 09:29 Magnesium Hydroxide (Milk Of Magnesia Liq) 30 ml Q12H PRN PO MILD - MODERATE CONSTIPATION 06/17/17 14:15 06/21/17 11:21 Lactulose (Lactulose Liq) 30 ml DAILY PRN PO SEVERE CONSITIPATION 06/17/17 14:15 06/21/17 11:21 Labetalol HCl (Trandate Inj) 10 mg Q1HR PRN IV PUSH SBP>160, DBP>90, HR>65 06/18/17 08:45 07/12/17 21:33 Hydralazine HCl (Apresoline Inj) 10 mg Q1HR PRN IV PUSH SBP>160, DBP>90 06/18/17 08:45 07/13/17 00:43 Metoprolol Tartrate (Lopressor Inj) 2.5 mg Q6H PRN IV PUSH SUSTAINED HR GREATER THAN 110 06/25/17 15:30 07/08/17 02:24 Amiodarone HCl (Cordarone) 200 mg DAILY NG 06/29/17 11:00 07/22/17 09:29 Acetaminophen/ Hydrocodone Bitart ([place]umway 5-325 Mg) 1 tab Q6H PRN PO PAIN 06/29/17 18:00 07/21/17 20:06 Morphine Sulfate (Morphine Inj) 2 mg Q3H PRN IV PUSH BREAKTHROUGH PAIN 1-5 06/29/17 18:00 06/29/17 18:12 Morphine Sulfate (Morphine Inj) 4 mg Q3H PRN IV PUSH BREAKTHROUGH PAIN 6-10 06/29/17 18:00 07/10/17 03:54 Bumetanide (Bumex Inj) 1 mg BID@09,18 IV PUSH 06/30/17 18:00 Future Hold 07/06/17 18:00 Apixaban (Eliquis) 2.5 mg BID NG 07/12/17 21:00 07/22/17 09:29 Hyoscyamine Sulfate (Levsin) 0.25 mg Q4H PRN PO FOR SECRETIONS 07/14/17 11:00 07/21/17 20:07 Diltiazem HCl 125 mg/Sodium Chloride 125 ml @ 5 mls/hr TITRATE PRN IV Tachycardia 07/17/17 11:00 07/18/17 03:00 Enalapril Maleate (Vasotec) 5 mg DAILY NG 07/18/17 09:00 07/22/17 09:29 Metoprolol Tartrate (Lopressor) 100 mg Q12H PO 07/18/17 18:00 07/22/17 05:43 Objective Remarks GENERAL: Obese, poor dentition well-developed patient. SKIN: Warm and dry. HEAD: Normocephalic. EYES: No scleral icterus. No injection or drainage. NECK: Supple, trachea ostomy mid line. LYMPHATIC: No adenopathy. CARDIOVASCULAR: Regular rate and rhythm without murmurs. RESPIRATORY: Breath sounds equal bilaterally. No accessory muscle use. GASTROINTESTINAL: Abdomen large redundant. EXTREMITIES: No cyanosis, or edema. MUSCULOSKELETAL: Lax muscle tone,deconditioned. NEUROLOGICAL: No obvious focal deficit. Awake, alert, and oriented x3. PSYCHIATRIC: Appropriate mood and affect; insight and judgment normal. Assessment/Plan Problem List: (1) Thrombocytopenia ICD Codes: D69.6 - Thrombocytopenia, unspecified Status: Chronic Plan: 07/22/17. Pt platelet count normalized since 07/09. Reviewed with PT bone marrow biopsy that show ITP, he appears to be in remission. Platelet count normal. Consider that platelet let increase maybe acute phase reactant that thrombocytopenia maybe from other cause drug effect, liver disease etc. During complicated hospital course many events- including weight loss. No treatment needed for now. Copy bone marrow reviewed with pt and given to him. Hematology will sign off. 07/08/17. 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 --?ITP --Patient has long-standing history of thrombocytopenia, dating back to 2003. --s/p bone marrow biopsy in , 06/17. pathology shows hypercellular bone marrow (2) Atrial fibrillation ICD Codes: I48.91 - Unspecified atrial fibrillation Status: Chronic Plan: 07/22/17. Tolerating anticoagulant. No sign of bleeding. Noted mild anemia. 07/08/17. Eliquis restarted. Critical care managing atrial fibrillation to control rate. Renal function stable. -- Eliquis currently on hold Assessment 57-year-old male admitted with generalized weakness and nausea. Hematology consulted for thrombocytopenia. After patient's bone marrow biopsy on 06/17, he became hypoxic and was intubated. Now in ISC on mechanical ventilation. Plan 1. Cont tacheostomy 2. Eliquis continue 3. Platelets normal. No treatment needed. 4. Hematology will sign off. Cindy Aguilera MD Jul 22, 2017 12:25
[2017-07-22 12:53] LABS: BICARBONATE 24.5 MEQ/L (21.0-32.0)
--- NOTE | 2017-07-22 12:55 | HHI.PR ---
Subjective Remarks Alert and Improved. On a T bar at 28 %.used BiPAP last nite. Trach secretions are minimal. On a PM valve now and talking On a soft diet. Objective Vital Signs Date Time Temp Pulse Resp B/P (MAP) Pulse Ox O2 Delivery O2 Flow Rate FiO2 07/22/17 12:16 98 07/22/17 11:15 116 07/22/17 11:15 97 Nasal Cannula 2.00 07/22/17 11:15 97.2 80 18 92/52 (65) 97 07/22/17 10:00 108 07/22/17 09:00 120 07/22/17 08:30 96 Trach Collar 6.00 28 07/22/17 08:30 Nasal Cannula 2.00 07/22/17 08:15 97.1 78 18 100/62 (75) 99 07/22/17 08:15 89 07/22/17 08:15 99 Trach Collar 5.00 28 07/22/17 06:00 80 07/22/17 05:00 82 07/22/17 04:03 98.1 85 18 105/69 (81) 99 07/22/17 04:00 85 07/22/17 03:00 79 07/22/17 02:00 82 07/22/17 01:09 98 Trach Collar 5.00 28 07/22/17 01:00 86 07/22/17 00:00 89 07/22/17 00:00 T-Piece 5.00 28 07/22/17 00:00 98.4 89 18 111/65 (80) 97 07/21/17 23:00 86 07/21/17 22:00 94 07/21/17 21:00 80 07/21/17 20:00 98.1 85 18 119/73 (88) 98 07/21/17 20:00 85 07/21/17 20:00 T-Piece 5.00 28 07/21/17 18:13 80 07/21/17 17:00 108 07/21/17 16:24 98 07/21/17 16:18 98.5 75 20 101/60 (74) 99 07/21/17 16:00 Trach Collar 5.00 28 07/21/17 15:00 116 07/21/17 14:00 108 07/21/17 13:00 112 I/O 907/21/17 07/21/17 07/22/17 07/22/17 07/22/17 07:00 15:00 23:00 07:00 15:00 23:00 Intake Total 480 ml 720 ml 240 ml Output Total 1000 ml 400 ml 500 ml Balance -520 ml 320 ml -260 ml Intake Oral 480 ml 720 ml 240 ml Output Urine Total 1000 ml 400 ml 500 ml # Bowel Movements 0 0 Result Diagram: 07/21/17 0550 07/21/17 0550 Objective Remarks This is a moderately obese mid aged man with a trach HEENT: Head normocephalic. Pupils reactive . Throat is clear . Nasal mucosa is clear. Neck: Supple with trach tube in place. No thyromegaly. Chest: Distant breath sounds with Occ basal Crackles. Heart: The heart sounds were regular, S1-S2. No murmur or S3. Abdomen: Soft and benign. No masses. No organomegaly or tenderness. Bowel sounds active. Extremities: 1 + edema. Reflexes 1+ with no gross motor deficits. Neurologic: Moves all .he is oriented . Skin: No lesions observed. Assessment and Plan Assessment and Plan IMPRESSION 1. Chronic respiratory failure. 2. Chronic kidney disease stage III. 3. Atrial fibrillation and ASHD. 4. History of diabetes mellitus. 5. Hypertension. 6. S/P Trach Plan: 1. Wean FIO2 to keep sat >92. 2. Cont BiPAP at HS 12/5 CM FIo2 28 % 3. Nebs qid , duoneb 4. Cont Anticoagulants. 5. PM Valve to talk daytime 6. Will get Sleep test as OP. 7. PT and OT. 8. Chest Xray this week. 9. Transfer to Kurtis Gaines MD Jul 22, 2017 12:55
--- NOTE | 2017-07-22 19:10 | HHI.NPPN ---
Subjective History of Present Illness 57-year-old -[place]ian male with past medical history of seizure disorder, ischemic heart disease, cardiomyopathy, chronic kidney disease, hypertension, diabetes mellitus, atrial fibrillation who was admitted more than three weeks ago for shortness of breath. I was called to see the patient for elevated BUN and creatinine. The patient has a known history of chronic kidney disease and it seems like his baseline creatinine has been in the range of 1.4 to 1.7. Additional Remarks Patient remain with Trach. and has no SOB, eating well. Review of Systems Respiratory Lungs: SOB, Cough, Sputum, Wheeze Cardiovascular Cardiac: Edema, GATES Objective Data Data 07/22/17 07/23/17 19:00 07:00 Intake Total 600 ml Output Total 200 ml Balance 400 ml Intake Oral 600 ml Output Urine Total 200 ml # Bowel Movements 1 Vital Signs Date Time Temp Pulse Resp B/P (MAP) Pulse Ox O2 Delivery O2 Flow Rate FiO2 07/22/17 18:00 94 07/22/17 17:39 103 07/22/17 16:03 85 07/22/17 15:33 97 Nasal Cannula 2.00 07/22/17 15:33 97.6 77 18 96/60 (72) 97 07/22/17 15:33 106 07/22/17 14:02 100 07/22/17 13:01 102 07/22/17 12:16 98 07/22/17 11:15 116 07/22/17 11:15 97 Nasal Cannula 2.00 07/22/17 11:15 97.2 80 18 92/52 (65) 97 07/22/17 10:00 108 07/22/17 09:00 120 07/22/17 08:30 96 Trach Collar 6.00 28 07/22/17 08:30 Nasal Cannula 2.00 07/22/17 08:15 97.1 78 18 100/62 (75) 99 07/22/17 08:15 89 07/22/17 08:15 99 Trach Collar 5.00 28 07/22/17 06:00 80 07/22/17 05:00 82 07/22/17 04:03 98.1 85 18 105/69 (81) 99 07/22/17 04:00 85 07/22/17 03:00 79 07/22/17 02:00 82 07/22/17 01:09 98 Trach Collar 5.00 28 07/22/17 01:00 86 07/22/17 00:00 89 07/22/17 00:00 T-Piece 5.00 28 07/22/17 00:00 98.4 89 18 111/65 (80) 97 07/21/17 23:00 86 07/21/17 22:00 94 07/21/17 21:00 80 07/21/17 20:00 98.1 85 18 119/73 (88) 98 07/21/17 20:00 85 07/21/17 20:00 T-Piece 5.00 28 -: 07/21/17 0550 07/22/17 1156 Physical Exam General Appearance: No Acute Distress, Comfortable Eyes Eye Exam: Pupils Equal Throat Throat Exam: Oral Mucosa [place] & Moist Neck Neck Exam: Neck Supple Pulmonary Resp Exam: Crackles, Rhonchi, Sputum, Decreased Bases, Diminished Breath Sounds Gastrointestinal/Abdomen GI Exam: Soft, Non-Tender, Bowel Sounds Present, Distended Extremeties Extremities Exam: Moderate Edema, Pitting Edema, Dependent Edema Neurologic Neuro Exam: Alert, Awake, Oriented Psychiatric Psych Exam: Appropriate Responses Assessment/Plan Assessment Summary: DENNYS/Acute Renal Failure, CKD Stage III Problem List: (1) Acute kidney injury ICD Codes: N17.9 - Acute kidney failure, unspecified (2) CHF (congestive heart failure) ICD Codes: I50.9 - Heart failure, unspecified Status: Resolved (3) DM (diabetes mellitus) ICD Codes: E11.9 - Type 2 diabetes mellitus without complications Status: Chronic (4) Peripheral edema ICD Codes: R60.9 - Edema, unspecified Status: Acute (5) Atrial fibrillation ICD Codes: I48.91 - Unspecified atrial fibrillation Status: Chronic (6) Atrial fibrillation with RVR ICD Codes: I48.91 - Unspecified atrial fibrillation Status: Resolved (7) CKD (chronic kidney disease), stage III ICD Codes: N18.3 - Chronic kidney disease, stage 3 (moderate) Status: Chronic Plan He has chronic kidney disease and the baseline Creatinine is close to 1.7-1.8. Most likely has underlying Hypertensive or renovascular disease. K increased again, give Kayexalate. Continue to hold diuretics. Urine out put is adequate. Possibly has ATN causing DENNYS. Creatinine increase to 2.8, could be related to drop in the BP or due to Enalapril. I will D/C Enalapril. Rajan Hoyt MD Jul 22, 2017 19:10
[2017-07-22] MEDS: RESP: ALBUTEROL 2.5 MG/3 ML NEB (PRN) INH (22:27)
[2017-07-23] VITALS (29 sets, daily range): BP systolic 104–145; BP diastolic 49–84; PULSE 68–113; RESP 15–18; TEMP 97.2–98.6; O2SAT 93–99
[2017-07-23] MEDS: METOPROLOL TARTRATE 100 MG TAB PO SCH ×2 (05:48→17:22)
[2017-07-23 06:49] LABS: HEMATOCRIT 36.7 % (39.0-51.0); MEAN CORPUSCULAR HEMOGLOBIN 28.8 PG (27.0-34.0); MEAN CORPUSCULAR HGB CONC 32.3 % (32.0-36.0); PLATELET COUNT 170 TH/MM3 (150-450); RED BLOOD COUNT 4.12 MIL/MM3 (4.50-5.90); RED CELL DISTRIBUTION WIDTH 13.6 % (11.6-17.2); REVIEW FLAG FINAL; WHITE BLOOD COUNT 9.4 TH/MM3 (4.0-11.0)
[2017-07-23] MEDS: PANTOPRAZOLE SODIUM 40 MG VIAL IV SCH (08:41)
[2017-07-23] MEDS: ARTIFICIAL TEARS OPTH SOLN 15 ML BTL EACH EYE SCH ×4 (08:41→17:24)
[2017-07-23] MEDS: AMIODARONE 200 MG TAB NG SCH (08:43)
[2017-07-23] MEDS: TOPIRAMATE 100 MG TAB PO SCH (08:44)
[2017-07-23] MEDS: APIXABAN 2.5 MG TABLET NG SCH ×2 (08:46→21:00)
[2017-07-23] MEDS: SODIUM CHLORIDE 0.9% FLUSH 10 ML FLUSH IV FLUSH SCH ×3 (08:46→21:39)
[2017-07-23] MEDS: DOCUSATE SODIUM 50 MG/SENNA 8.6 MG TAB PO SCH ×2 (08:46→21:00)
--- NOTE | 2017-07-23 10:31 | HHI.NPPN ---
Subjective History of Present Illness 57-year-old -[place] male with past medical history of seizure disorder, ischemic heart disease, cardiomyopathy, chronic kidney disease, hypertension, diabetes mellitus, atrial fibrillation who was admitted more than three weeks ago for shortness of breath. I was called to see the patient for elevated BUN and creatinine. The patient has a known history of chronic kidney disease and it seems like his baseline creatinine has been in the range of 1.4 to 1.7. Additional Remarks Patient remain with Trach. and has no SOB, clinically same, not in distress. Review of Systems Respiratory Lungs: SOB, Cough, Sputum, Wheeze Cardiovascular Cardiac: Edema, GATES Objective Data Data Vital Signs Date Time Temp Pulse Resp B/P (MAP) Pulse Ox O2 Delivery O2 Flow Rate FiO2 07/23/17 08:30 80 07/23/17 07:35 81 07/23/17 07:30 98.5 76 15 145/84 (104) 98 07/23/17 06:00 98 07/23/17 05:00 98 07/23/17 04:00 84 07/23/17 03:00 76 07/23/17 03:00 97.2 83 18 104/65 (78) 95 07/23/17 03:00 95 Trach Collar 2.00 07/23/17 02:00 83 07/23/17 01:00 88 07/23/17 00:00 83 07/22/17 23:00 98.6 82 18 103/49 (67) 97 07/22/17 23:00 82 07/22/17 23:00 96 Nasal Cannula 2.00 Trach Collar 07/22/17 22:00 84 07/22/17 21:00 86 07/22/17 20:00 80 07/22/17 19:00 84 07/22/17 19:00 Nasal Cannula 2.00 Trach Collar 07/22/17 19:00 98.6 100 18 114/74 (87) 98 07/22/17 18:00 94 07/22/17 17:39 103 07/22/17 16:03 85 07/22/17 15:33 97 Nasal Cannula 2.00 07/22/17 15:33 97.6 77 18 96/60 (72) 97 07/22/17 15:33 106 07/22/17 14:02 100 07/22/17 13:01 102 07/22/17 12:16 98 07/22/17 11:15 116 07/22/17 11:15 97 Nasal Cannula 2.00 07/22/17 11:15 97.2 80 18 92/52 (65) 97 -: 07/23/17 0610 07/22/17 1156 Physical Exam General Appearance: No Acute Distress, Comfortable Eyes Eye Exam: Pupils Equal Throat Throat Exam: Oral Mucosa [place] & Moist Neck Neck Exam: Neck Supple Pulmonary Resp Exam: Crackles, Rhonchi, Sputum, Decreased Bases, Diminished Breath Sounds Gastrointestinal/Abdomen GI Exam: Soft, Non-Tender, Bowel Sounds Present, Distended Extremeties Extremities Exam: Moderate Edema, Pitting Edema, Dependent Edema Neurologic Neuro Exam: Alert, Awake, Oriented Psychiatric Psych Exam: Appropriate Responses Assessment/Plan Assessment Summary: DENNYS/Acute Renal Failure, CKD Stage III Problem List: (1) Acute kidney injury ICD Codes: N17.9 - Acute kidney failure, unspecified (2) CHF (congestive heart failure) ICD Codes: I50.9 - Heart failure, unspecified Status: Resolved (3) DM (diabetes mellitus) ICD Codes: E11.9 - Type 2 diabetes mellitus without complications Status: Chronic (4) Peripheral edema ICD Codes: R60.9 - Edema, unspecified Status: Acute (5) Atrial fibrillation ICD Codes: I48.91 - Unspecified atrial fibrillation Status: Chronic (6) Atrial fibrillation with RVR ICD Codes: I48.91 - Unspecified atrial fibrillation Status: Resolved (7) CKD (chronic kidney disease), stage III ICD Codes: N18.3 - Chronic kidney disease, stage 3 (moderate) Status: Chronic Plan He has chronic kidney disease and the baseline Creatinine is close to 1.7-1.8. Most likely has underlying Hypertensive or renovascular disease. K increased again, give Kayexalate. Continue to hold diuretics. Urine out put is adequate. Possibly has ATN causing DENNYS. Creatinine is better, now 2.5. BP is stable. Continue to hold diuretics and Lisinopril. Rajan Hoyt MD Jul 23, 2017 10:31
[2017-07-23 12:01] LABS: BICARBONATE 22.7 MEQ/L (21.0-32.0); POTASSIUM 3.8 MEQ/L (3.5-5.1)
--- NOTE | 2017-07-23 12:27 | HHI.PR ---
Subjective Remarks Alert and Improved. On a PM valve today and Off O2 . sat 97 No Trach secretions .Good output Objective Vital Signs Date Time Temp Pulse Resp B/P (MAP) Pulse Ox O2 Delivery O2 Flow Rate FiO2 07/23/17 12:22 Blow By 2.00 07/23/17 11:49 80 07/23/17 11:00 98.6 76 16 129/49 (75) 99 07/23/17 10:46 98.6 83 16 129/49 (75) 99 07/23/17 10:30 76 07/23/17 09:30 78 07/23/17 08:30 80 07/23/17 07:35 81 07/23/17 07:30 98.5 76 15 145/84 (104) 98 07/23/17 07:00 Blow By 2.00 07/23/17 06:00 98 07/23/17 05:00 98 07/23/17 04:00 84 07/23/17 03:00 76 07/23/17 03:00 97.2 83 18 104/65 (78) 95 07/23/17 03:00 95 Trach Collar 2.00 07/23/17 02:00 83 07/23/17 01:00 88 07/23/17 00:00 83 07/22/17 23:00 98.6 82 18 103/49 (67) 97 07/22/17 23:00 82 07/22/17 23:00 96 Nasal Cannula 2.00 Trach Collar 07/22/17 22:00 84 07/22/17 21:00 86 07/22/17 20:00 80 07/22/17 19:00 84 07/22/17 19:00 Nasal Cannula 2.00 Trach Collar 07/22/17 19:00 98.6 100 18 114/74 (87) 98 07/22/17 18:00 94 07/22/17 17:39 103 07/22/17 16:03 85 07/22/17 15:33 97 Nasal Cannula 2.00 07/22/17 15:33 97.6 77 18 96/60 (72) 97 07/22/17 15:33 106 07/22/17 14:02 100 07/22/17 13:01 102 I/O 07/22/17 07/22/17 07/22/17 07/23/17 07/23/17 9/19/17 07:00 15:00 23:00 07:00 15:00 23:00 Intake Total 240 ml 600 ml 480 ml Output Total 500 ml 200 ml 375 ml Balance -260 ml 400 ml 105 ml Intake Oral 240 ml 600 ml 480 ml Output Urine Total 500 ml 200 ml 375 ml # Bowel Movements 0 1 1 Result Diagram: 07/23/17 0610 07/23/17 1055 Objective Remarks This is a moderately obese mid aged man with a trach HEENT: Head normocephalic. Pupils reactive . Throat is clear . Nasal mucosa is clear. Neck: Supple with trach tube in place. No thyromegaly. Chest: Distant breath sounds with occ wheeze. Heart: The heart sounds were regular, S1-S2. No murmur or S3. Abdomen: Soft and benign. No masses. No organomegaly or tenderness. Bowel sounds active. Extremities: 1 + edema. Reflexes 1+ with no gross motor deficits. Neurologic: Moves all .he is oriented . Skin: No lesions observed. Assessment and Plan Assessment and Plan IMPRESSION 1. Chronic respiratory failure. 2. Chronic kidney disease stage III. 3. Atrial fibrillation and ASHD. 4. History of diabetes mellitus. 5. Hypertension. 6. S/P Trach Plan: 1. Wean FIO2 to keep sat >92. 2. Cont BiPAP at HS 12/5 CM FIo2 28 % 3. Nebs qid , duoneb 4. Cont Anticoagulants. 5.Cap trach tube in am. 6. Will get Sleep test as OP. 7. PT and OT. 8. BMP in am 9. Transfer to Kurtis Gaines MD Jul 23, 2017 12:27
--- NOTE | 2017-07-23 14:07 | HHI.PR ---
Subjective Remarks Patient reports is feeling better today. He got up with the walker. He is talking and more upbeat today. Objective Vitals Vital Signs Date Time Temp Pulse Resp B/P (MAP) Pulse Ox O2 Delivery O2 Flow Rate FiO2 07/23/17 13:05 93 07/23/17 12:43 83 07/23/17 12:22 Blow By 2.00 07/23/17 11:49 80 07/23/17 11:00 91 07/23/17 11:00 98.6 76 16 129/49 (75) 99 07/23/17 10:46 98.6 83 16 129/49 (75) 99 07/23/17 10:30 76 07/23/17 09:30 78 07/23/17 08:30 80 07/23/17 07:35 81 07/23/17 07:30 98.5 76 15 145/84 (104) 98 07/23/17 07:00 Blow By 2.00 07/23/17 06:00 98 07/23/17 05:00 98 07/23/17 04:00 84 07/23/17 03:00 76 07/23/17 03:00 97.2 83 18 104/65 (78) 95 07/23/17 03:00 95 Trach Collar 2.00 07/23/17 02:00 83 07/23/17 01:00 88 07/23/17 00:00 83 07/22/17 23:00 98.6 82 18 103/49 (67) 97 07/22/17 23:00 82 07/22/17 23:00 96 Nasal Cannula 2.00 Trach Collar 07/22/17 22:00 84 07/22/17 21:00 86 07/22/17 20:00 80 07/22/17 19:00 84 07/22/17 19:00 Nasal Cannula 2.00 Trach Collar 07/22/17 19:00 98.6 100 18 114/74 (87) 98 07/22/17 18:00 94 07/22/17 17:39 103 07/22/17 16:03 85 07/22/17 15:33 97 Nasal Cannula 2.00 07/22/17 15:33 97.6 77 18 96/60 (72) 97 07/22/17 15:33 106 I/O 9/07/22/17 07/22/17 07/23/17 07/23/17 07/23/17 07:00 15:00 23:00 07:00 15:00 23:00 Intake Total 240 ml 600 ml 480 ml Output Total 500 ml 200 ml 375 ml Balance -260 ml 400 ml 105 ml Intake Oral 240 ml 600 ml 480 ml Output Urine Total 500 ml 200 ml 375 ml # Bowel Movements 0 1 1 Result Diagram: 07/23/17 0610 07/23/17 1055 Objective Remarks GENERAL: Morbidly obese, chronically ill-appearing male. Trached CARDIOVASCULAR: Normal rate and regular rhythm without murmurs, gallops, or rubs. RESPIRATORY: Trachea in place. Coarse breath sounds throughout. GASTROINTESTINAL: Morbidly obese. Hypoactive bowel sounds. Abdomen is soft, nontender. MUSCULOSKELETAL: Extremities with 1+ edema in bilateral lower extremities. NEURO: Awake. Alert. Able to talk PSYCH: Calm Procedures 06/17/17 intubation 06/17/17 CPR 06/17/17 right femoral arterial catheter placement 06/18/17 right IJ central line placement 06/22/17 fiberoptic bronchoscopy 06/24/17 right axillary arterial catheter placement 06/24/17 tracheostomy, bronchoscopy A/P Problem List: (1) Hypotension ICD Code: I95.9 - Hypotension, unspecified Status: Acute (2) Symptomatic bradycardia ICD Code: R00.1 - Bradycardia, unspecified Status: Acute (3) CKD (chronic kidney disease), stage III ICD Code: N18.3 - Chronic kidney disease, stage 3 (moderate) Status: Chronic (4) Chronic systolic CHF (congestive heart failure) ICD Code: I50.22 - Chronic systolic (congestive) heart failure Status: Chronic (5) Atrial fibrillation ICD Code: I48.91 - Unspecified atrial fibrillation Status: Chronic (6) Acute worsening of stage 3 chronic kidney disease ICD Code: N18.3 - Chronic kidney disease, stage 3 (moderate) Status: Acute (7) Thrombocytopenia ICD Code: D69.6 - Thrombocytopenia, unspecified Status: Chronic Assessment and Plan In summary this is a 57-year-old male with complex comorbidities including ischemic heart disease, cardiomyopathy, chronic kidney disease, atrial fibrillation, status post cardiogenic shock and PEA cardiac arrest. Patient has had a prolonged ICU course. He has a trach. He is improving and have since moved to the floor. Continue rehabilitation efforts. He is pending placement at a snf facility. Cardiogenic shock status post PEA cardiac arrest/Chronic systolic congestive heart failure: Clinically stable currently. Patient was followed by cardiology. Reconsult Cardiology for persistent Afib - EF less than 20%. Continue beta obdulio, FABRICE inhibitor, and diuretics. Atrial fibrillation: Cardiology following. Rate is better controlled. Continue Eliquis at a lower dose 2.5 mg twice a day given renal failure. Continue amiodarone, metoprolol. Resp Failure, trached after bone marrow biopsy. Acute hypoxic respiratory failure: Status post mechanical ventilation. Tolerating T piece. Continue bronchodilators, supplemental oxygen. Trach management per pulmonology. - Levsin as needed for secretions. Acute kidney injury superimposed on chronic kidney disease, stage III: BUN and creatinine fluctuating. Avoid nephrotoxic medications. Appreciate nephrology recommendations. Anderson catheter in place. Continue to follow renal functions. Further plans per nephrology. Seizure disorder: Continue Topamax. Thrombocytopenia: Appreciate hematology recommendations. Status post bone marrow biopsy. - Thrombocytopenia resolved. Morbid obesity, acute mild protein energy malnutrition: He is eating better. Continue diet per speech as tolerated. HCAP/aspiration pneumonia: Sputum culture 06/20 growing Enterobacter. Completed course of cefepime, Flagyl. Now off antibiotics. GI prophylaxis: Protonix. Diabetes mellitus: Monitor Accu-Cheks and cover with sliding scale insulin. DVT prophylaxis: Eliquis. Discharge Planning Transfer to floor when a bed is available. Awaiting for placement at [facility]. Problem Qualifiers (1) Hypotension: Popeye Dennison MD Jul 23, 2017 14:07
[2017-07-23] MEDS: RESP: ALBUTEROL 2.5 MG/3 ML NEB (PRN) INH (18:29)
[2017-07-23] MEDS: CHLORHEXIDINE 0.12% (ORAL KIT) 15 ML CUP MT SCH (20:00)
[2017-07-24] VITALS (27 sets, daily range): BP systolic 112–164; BP diastolic 65–93; PULSE 72–109; RESP 16–20; TEMP 97.9–98.7; O2SAT 96–99
[2017-07-24] MEDS: CHLORHEXIDINE GLUCONATE 2 % 1 PACK (2 CLOTHS) TOP SCH (03:10)
[2017-07-24] MEDS: METOPROLOL TARTRATE 100 MG TAB PO SCH ×2 (05:43→18:43)
[2017-07-24 08:13] LABS: BICARBONATE 24.5 MEQ/L (21.0-32.0); POTASSIUM 3.8 MEQ/L (3.5-5.1)
[2017-07-24] MEDS: RESP: ALBUTEROL 2.5 MG/3 ML NEB (PRN) INH (08:21)
--- NOTE | 2017-07-24 08:22 | PD.CARD.PN ---
Subjective Subjective Remarks Pt without CV complaints Objective Medications Current Medications Medications (Trade) Dose Ordered Sig/Ashok Route Start Time Stop Time Status Last Admin (Narcan Inj) 0.4 mg UNSCH PRN IV 06/14/17 04:30 (Topamax) 100 mg DAILY PO 06/14/17 11:00 07/23/17 08:44 (Tylenol) 650 mg Q6H PRN PO 06/15/17 21:30 06/30/17 20:37 (Peridex 0.12% Liq) 15 ml BID@08,20 MT 06/17/17 20:00 07/23/17 20:00 (NS Flush) 2 ml UNSCH PRN IV FLUSH 06/17/17 14:15 (NS Flush) 2 ml BID IV FLUSH 06/17/17 21:00 07/23/17 21:39 (Protonix Inj) 40 mg DAILY IV 06/18/17 09:00 07/23/17 08:41 (Tears Naturale Opth Soln) 1 drop TID EACH EYE 06/17/17 18:00 07/23/17 17:24 (Zofran Inj) 4 mg Q6H PRN IV 06/17/17 14:15 07/20/17 18:00 (Albuterol Neb) 2.5 mg Q2HR NEB PRN INH 06/17/17 14:15 07/23/17 18:29 Miscellaneous Information 1 Q361D XX 06/17/17 14:15 (Chlorhexidine 2% Cloth) Taper DAILY@04 TOP 06/18/17 04:00 06/14/18 03:59 07/17/17 04:00 (Chlorhexidine 2% Cloth) 3 pack UNSCH PRN TOP 06/17/17 14:15 (Marilee-Colace) 1 tab BID PO 06/17/17 21:00 07/22/17 21:19 (Milk Of Magnesia Liq) 30 ml Q12H PRN PO 06/17/17 14:15 06/21/17 11:21 (Senokot) 17.2 mg Q12H PRN PO 06/17/17 14:15 (Dulcolax Supp) 10 mg DAILY PRN RECTAL 06/17/17 14:15 (Lactulose Liq) 30 ml DAILY PRN PO 06/17/17 14:15 06/21/17 11:21 (Trandate Inj) 10 mg Q1HR PRN IV PUSH 06/18/17 08:45 07/12/17 21:33 (Apresoline Inj) 10 mg Q1HR PRN IV PUSH 06/18/17 08:45 07/13/17 00:43 (Lopressor Inj) 2.5 mg Q6H PRN IV PUSH 06/25/17 15:30 07/08/17 02:24 (Cordarone) 200 mg DAILY NG 06/29/17 11:00 07/23/17 08:43 (Leota 5-325 Mg) 1 tab Q6H PRN PO 06/29/17 18:00 07/21/17 20:06 (Morphine Inj) 2 mg Q3H PRN IV PUSH 06/29/17 18:00 06/29/17 18:12 (Morphine Inj) 4 mg Q3H PRN IV PUSH 06/29/17 18:00 07/10/17 03:54 (Bumex Inj) 1 mg BID@,18 IV PUSH 06/30/17 18:00 Future Hold 07/06/17 18:00 (Levsin Inj) 0.25 mg Q4H PRN IV PUSH 07/10/17 23:00 (Eliquis) 2.5 mg BID NG 07/12/17 21:00 07/22/17 21:19 (Reglan Inj) 5 mg Q8HR PRN IV PUSH 07/12/17 14:30 (Levsin) 0.25 mg Q4H PRN PO 07/14/17 11:00 07/21/17 20:07 Diltiazem HCl 125 mg/Sodium Chloride 125 ml @ 5 mls/hr TITRATE PRN IV 07/17/17 11:00 07/18/17 03:00 (Lopressor) 100 mg Q12H PO 07/18/17 18:00 07/24/17 05:43 Vital Signs / I&O Vital Signs Date Time Temp Pulse Resp B/P (MAP) Pulse Ox O2 Delivery O2 Flow Rate FiO2 07/24/17 08:09 92 07/24/17 07:00 93 07/24/17 06:07 93 07/24/17 05:58 85 07/24/17 04:12 91 07/24/17 03:55 98.1 81 16 140/78 (98) 99 07/24/17 03:04 91 07/24/17 03:04 99 Venturi Mask 5.00 28 07/24/17 03:00 99 Venturi Mask 5.00 28 07/24/17 02:56 92 07/24/17 01:00 80 07/24/17 00:00 96 07/23/17 23:30 99 Venturi Mask 5.00 28 07/23/17 23:30 97.7 76 16 130/75 (93) 99 07/23/17 23:30 90 07/23/17 22:00 86 07/23/17 21:00 82 07/23/17 20:00 76 07/23/17 19:50 97.7 68 16 139/70 (93) 97 07/23/17 19:50 86 07/23/17 19:50 Room Air 07/23/17 18:50 92 07/23/17 18:29 94 21 07/23/17 17:10 104 07/23/17 16:42 85 07/23/17 15:26 97.8 86 18 110/81 (91) 93 07/23/17 15:26 93 Room Air 07/23/17 15:00 113 07/23/17 14:00 98 07/23/17 13:05 93 07/23/17 12:43 83 07/23/17 12:22 Blow By 2.00 07/23/17 11:49 80 07/23/17 11:00 91 07/23/17 11:00 98.6 76 16 129/49 (75) 99 07/23/17 10:46 98.6 83 16 129/49 (75) 99 07/23/17 10:30 76 07/23/17 09:30 78 07/23/17 08:30 80 I/O 07/23/17 07/23/17 07/23/17 07/24/17 07/24/17 07/24/17 07:00 15:00 23:00 07:00 15:00 23:00 Intake Total 480 ml 760 ml Output Total 375 ml 550 ml 600 ml Balance 105 ml -550 ml 160 ml Intake Oral 480 ml 760 ml Output Urine Total 375 ml 550 ml 600 ml # Bowel Movements 1 2 Physical Exam GENERAL: Well developed, on trach collar HEENT: Jugular venous pressure is normal. CHEST: Lungs decreased in bases. Unlabored respiratory effort. CARDIAC: irregular rate and rhythm without S3, S4, or murmur. ABDOMEN: Soft, EXTREMITIES: No clubbing, Laboratory Laboratory Tests Test 07/23/17 10:55 07/24/17 06:52 Blood Urea Nitrogen 42 MG/DL 40 MG/DL Creatinine 2.55 MG/DL 2.27 MG/DL Random Glucose 109 MG/DL 88 MG/DL Calcium Level 8.7 MG/DL 8.9 MG/DL Sodium Level 137 MEQ/L 138 MEQ/L Potassium Level 3.8 MEQ/L 3.8 MEQ/L Chloride Level 105 MEQ/L 106 MEQ/L Carbon Dioxide Level 22.7 MEQ/L 24.5 MEQ/L Anion Gap 9 MEQ/L 8 MEQ/L Estimat Glomerular Filtration Rate 32 ML/MIN 36 ML/MIN Assessment and Plan Assessment and Plan AF - rate controlled - on eliquis -apparently not/poor AF ablation candidate per EP Resp Failure - on vent => now trach collar Acute on chronic systolic failure- Cardiomyopathy- ECHO EF 20% - BB and FABRICE Thrombocytopenia- resolved CKD- Other- ok for floors Jamila Mccormack MD Jul 24, 2017 08:22
[2017-07-24] MEDS: ARTIFICIAL TEARS OPTH SOLN 15 ML BTL EACH EYE SCH ×3 (09:00→18:45)
[2017-07-24] MEDS: DOCUSATE SODIUM 50 MG/SENNA 8.6 MG TAB PO SCH ×2 (09:00→21:00)
[2017-07-24] MEDS: PANTOPRAZOLE SODIUM 40 MG VIAL IV SCH (09:55)
[2017-07-24] MEDS: SODIUM CHLORIDE 0.9% FLUSH 10 ML FLUSH IV FLUSH SCH ×2 (09:56→22:47)
[2017-07-24] MEDS: TOPIRAMATE 100 MG TAB PO SCH (09:56)
[2017-07-24] MEDS: AMIODARONE 200 MG TAB NG SCH (09:56)
--- NOTE | 2017-07-24 14:57 | HHI.PR ---
Addendum to Inpatient Note Addendum Reason: Additional Documentation Additional Information S: Patient is a 57-year-old man with a history of diabetes, hypotension, A. fib on AC, CKD, seizure disorder on Topamax s/p bone marrow biopsy and trach placement this admission, who has been an inpatient here for >40 days, initially admitted for hypotension and symptomatic bradycardia, who had a HaliCAT called for unresponsiveness. Per patient and nurse report, patient was calling for his nurse when he suddenly became unresponsive. Patient reports that he was calling for his nurse because he felt like he was about to have a seizure. He reports that his seizures normally result with him unresponsive without tonic-clonic activity or postictal phase, which is what happened this time. Patient was out of bed to chair for the first time. He reported some associated nausea. He denies any chest pain or shortness of breath. His chief complaint was that his butt hurts. O: Vitals: Initial set of vitals around the time when patient was unresponsive: Blood pressure 87/64, pulse ox 98 on room air, heart rate 60, blood glucose 91. Upon reassessment, vitals: Blood pressure 119/65, pulse 90s to 100s, satting 98- 100% on room air. Gen: Diaphoretic morbidly obese male sitting up in chair in no acute distress HEENT: Poor dentition, sweaty forehead Cardiovascular: Borderline tachycardic irregularly irregular rate and rhythm Respiratory: No signs of respiratory distress Extremities: Hyperpigmented and hairless Neuro: Alert and oriented, answering questions appropriately A/P: Patient is a 57-year-old man with a history of hypotension and seizure disorder on Topamax had HaliCAT called for being found unresponsive and says he had a seizure. Vitals and mental status quickly normalized without intervention. Differential diagnosis includes vasovagal syncope in the context of trying to re-position himself (2/2 butt pain) while in chair for first time this admission. -EKG showed sinus tachycardia with PVCs/PACs; p-waves present -Transferred from chair to bed -Primary doctor notified -Consider titrating up his antiepileptic medication Berto Newell MD R2 Jul 24, 2017 14:57
--- NOTE | 2017-07-24 15:31 | HHI.PR ---
Subjective Remarks Dylon called earlier a few moments ago as per RN patient had a syncopal episode, she found him unresponsive x 5 minutes slightly confused after waking up Patient states he had a seizure patient now awake, denies dizziness, cardiac, chest pain, abdominal pain Telemetry with rate controlled A. fib. Objective Vitals Vital Signs Date Time Temp Pulse Resp B/P (MAP) Pulse Ox O2 Delivery O2 Flow Rate FiO2 07/24/17 15:08 Room Air 07/24/17 14:18 99 2.00 07/24/17 14:11 106 07/24/17 13:14 103 07/24/17 12:15 98.3 80 17 164/93 (116) 97 07/24/17 12:02 89 07/24/17 11:51 98.2 76 18 159/93 (115) 98 07/24/17 11:51 95 Room Air 07/24/17 11:47 97 07/24/17 11:00 99 07/24/17 10:11 95 07/24/17 09:30 84 07/24/17 08:24 96 Trach Collar 4.50 28 07/24/17 08:09 92 07/24/17 08:00 81 07/24/17 08:00 98.7 81 17 130/86 (101) 98 07/24/17 07:00 93 07/24/17 07:00 Venturi Mask 5.00 07/24/17 06:07 93 07/24/17 05:58 85 07/24/17 04:12 91 07/24/17 03:55 98.1 81 16 140/78 (98) 99 07/24/17 03:04 91 07/24/17 03:04 99 Venturi Mask 5.00 28 07/24/17 03:00 99 Venturi Mask 5.00 28 07/24/17 02:56 92 07/24/17 01:00 80 07/24/17 00:00 96 07/23/17 23:30 99 Venturi Mask 5.00 28 07/23/17 23:30 97.7 76 16 130/75 (93) 99 07/23/17 23:30 90 07/23/17 22:00 86 07/23/17 21:00 82 07/23/17 20:00 76 07/23/17 19:50 97.7 68 16 139/70 (93) 97 07/23/17 19:50 86 07/23/17 19:50 Room Air 07/23/17 18:50 92 07/23/17 18:29 94 21 07/23/17 17:10 104 07/23/17 16:42 85 07/23/17 15:26 97.8 86 18 110/81 (91) 93 07/23/17 15:26 93 Room Air I/O 07/23/17 07/23/17 07/23/17 07/24/17 07/24/17 07/24/17 07:00 15:00 23:00 07:00 15:00 23:00 Intake Total 480 ml 760 ml Output Total 375 ml 550 ml 600 ml Balance 105 ml -550 ml 160 ml Intake Oral 480 ml 760 ml Output Urine Total 375 ml 550 ml 600 ml # Bowel Movements 1 2 Result Diagram: 07/23/17 0610 07/24/17 0652 Imaging Last Impressions Chest X-Ray 07/17/17 0600 Signed Impressions: Service Date/Time: Monday, July 17, 2017 05:33 - CONCLUSION: 1. Cardiomegaly. Minimal basilar atelectasis. Tracheostomy in good position. Anderson Raymond MD Abdomen X-Ray 07/08/17 0000 Signed Impressions: Service Date/Time: Saturday, July 08, 2017 11:20 - CONCLUSION: NG tube as above. Florentino Herrera MD Head CT 06/18/17 0000 Signed Impressions: Service Date/Time: Sunday, June 18, 2017 00:48 - CONCLUSION: Negative exam. No evidence of intracranial hemorrhage. Ronni Capps MD Bone Biopsy CT 06/17/17 0000 Signed Impressions: Service Date/Time: Saturday, June 17, 2017 12:35 - CONCLUSION: Bone marrow aspiration and biopsy complicated by intubation and resuscitation. Pathology is pending. Rell Valentin MD FACR Abdomen Ultrasound 06/16/17 0000 Signed Impressions: Service Date/Time: Friday, June 16, 2017 18:13 - CONCLUSION: Limited sonographic windows due to patient body habitus and bowel gas. Right renal cyst. Visualized portions of the abdomen otherwise within normal limits. Jose Bruno MD Lower Extremity Ultrasound 06/14/17 0000 Signed Impressions: Service Date/Time: Wednesday, June 14, 2017 08:15 - CONCLUSION: Normal examination. Kushal Camacho MD Objective Remarks GENERAL: Morbidly obese, chronically ill-appearing male. Trached CARDIOVASCULAR: Normal rate and regular rhythm without murmurs, gallops, or rubs. RESPIRATORY: Trachea in place. Coarse breath sounds throughout. GASTROINTESTINAL: Morbidly obese. Hypoactive bowel sounds. Abdomen is soft, nontender. MUSCULOSKELETAL: Extremities with 1+ edema in bilateral lower extremities. NEURO: Awake. Alert. Able to talk PSYCH: Calm Procedures 06/17/17 intubation 06/17/17 CPR 06/17/17 right femoral arterial catheter placement 06/18/17 right IJ central line placement 06/22/17 fiberoptic bronchoscopy 06/24/17 right axillary arterial catheter placement 06/24/17 tracheostomy, bronchoscopy Medications and IVs Current Medications Medications (Trade) Dose Ordered Sig/Ashok Route Start Time Stop Time Status Last Admin (Narcan Inj) 0.4 mg UNSCH PRN IV 06/14/17 04:30 (Topamax) 100 mg DAILY PO 06/14/17 11:00 07/24/17 09:56 (Tylenol) 650 mg Q6H PRN PO 06/15/17 21:30 06/30/17 20:37 (Peridex 0.12% Liq) 15 ml BID@08,20 MT 06/17/17 20:00 07/23/17 20:00 (NS Flush) 2 ml UNSCH PRN IV FLUSH 06/17/17 14:15 (NS Flush) 2 ml BID IV FLUSH 06/17/17 21:00 07/24/17 09:56 (Protonix Inj) 40 mg DAILY IV 06/18/17 09:00 07/24/17 09:55 (Tears Naturale Opth Soln) 1 drop TID EACH EYE 06/17/17 18:00 07/24/17 13:00 (Zofran Inj) 4 mg Q6H PRN IV 06/17/17 14:15 07/20/17 18:00 (Albuterol Neb) 2.5 mg Q2HR NEB PRN INH 06/17/17 14:15 07/24/17 08:21 Miscellaneous Information 1 Q361D XX 06/17/17 14:15 (Chlorhexidine 2% Cloth) Taper DAILY@04 TOP 06/18/17 04:00 06/14/18 03:59 07/17/17 04:00 (Chlorhexidine 2% Cloth) 3 pack UNSCH PRN TOP 06/17/17 14:15 (Marilee-Colace) 1 tab BID PO 06/17/17 21:00 07/22/17 21:19 (Milk Of Magnesia Liq) 30 ml Q12H PRN PO 06/17/17 14:15 06/21/17 11:21 (Senokot) 17.2 mg Q12H PRN PO 06/17/17 14:15 (Dulcolax Supp) 10 mg DAILY PRN RECTAL 06/17/17 14:15 (Lactulose Liq) 30 ml DAILY PRN PO 06/17/17 14:15 06/21/17 11:21 (Trandate Inj) 10 mg Q1HR PRN IV PUSH 06/18/17 08:45 07/12/17 21:33 (Apresoline Inj) 10 mg Q1HR PRN IV PUSH 06/18/17 08:45 07/13/17 00:43 (Lopressor Inj) 2.5 mg Q6H PRN IV PUSH 06/25/17 15:30 07/08/17 02:24 (Cordarone) 200 mg DAILY NG 06/29/17 11:00 07/24/17 09:56 (Triangle 5-325 Mg) 1 tab Q6H PRN PO 06/29/17 18:00 07/21/17 20:06 (Morphine Inj) 2 mg Q3H PRN IV PUSH 06/29/17 18:00 06/29/17 18:12 (Morphine Inj) 4 mg Q3H PRN IV PUSH 06/29/17 18:00 07/10/17 03:54 (Bumex Inj) 1 mg BID@,18 IV PUSH 06/30/17 18:00 Future Hold 07/06/17 18:00 (Levsin Inj) 0.25 mg Q4H PRN IV PUSH 07/10/17 23:00 (Eliquis) 2.5 mg BID NG 07/12/17 21:00 07/22/17 21:19 (Reglan Inj) 5 mg Q8HR PRN IV PUSH 07/12/17 14:30 (Levsin) 0.25 mg Q4H PRN PO 07/14/17 11:00 07/21/17 20:07 Diltiazem HCl 125 mg/Sodium Chloride 125 ml @ 5 mls/hr TITRATE PRN IV 07/17/17 11:00 07/18/17 03:00 (Lopressor) 100 mg Q12H PO 07/18/17 18:00 07/24/17 05:43 Urinary Catheter: No Vascular Central Line Catheter: No A/P Problem List: (1) Hypotension ICD Code: I95.9 - Hypotension, unspecified Status: Acute (2) Symptomatic bradycardia ICD Code: R00.1 - Bradycardia, unspecified Status: Acute (3) CKD (chronic kidney disease), stage III ICD Code: N18.3 - Chronic kidney disease, stage 3 (moderate) Status: Chronic (4) Chronic systolic CHF (congestive heart failure) ICD Code: I50.22 - Chronic systolic (congestive) heart failure Status: Chronic (5) Atrial fibrillation ICD Code: I48.91 - Unspecified atrial fibrillation Status: Chronic (6) Acute worsening of stage 3 chronic kidney disease ICD Code: N18.3 - Chronic kidney disease, stage 3 (moderate) Status: Acute (7) Thrombocytopenia ICD Code: D69.6 - Thrombocytopenia, unspecified Status: Chronic Assessment and Plan In summary this is a 57-year-old male with complex comorbidities including ischemic heart disease, cardiomyopathy, chronic kidney disease, atrial fibrillation, status post cardiogenic shock and PEA cardiac arrest. Patient has had a prolonged ICU course. He has a trach. He is improving and have since moved to the floor. Continue rehabilitation efforts. He is pending placement at a alf facility. 1. Cardiogenic shock status post PEA cardiac arrest. Clinically stable currently. Patient was followed by cardiology. Reconsult Cardiology for persistent Afib - EF less than 20%. Continue beta obdulio, FABRICE inhibitor, and diuretics. 2. Chronic systolic congestive heart failure: Continue diuretics 3. Atrial fibrillation: Cardiology following. 07/24 Rate controlled Continue Eliquis at a lower dose 2.5 mg twice a day given renal failure. Continue amiodarone, metoprolol. 4. Respiratory failure: Trached after bone marrow biopsy. Acute hypoxic respiratory failure: Status post mechanical ventilation. Tolerating T piece. Continue bronchodilators, supplemental oxygen. Trach management per pulmonology. - Levsin as needed for secretions. 5. Acute kidney injury superimposed on chronic kidney disease, stage III: BUN and creatinine fluctuating. Avoid nephrotoxic medications. Appreciate nephrology recommendations. Anderson catheter in place. Continue to follow renal functions. Further plans per nephrology. 6. Seizure disorder: Continue Topamax. 07/24 patient states that he had a seizure episode today. I will order an EEG and order a Topamax level. 7. Thrombocytopenia: The patient was seen by hematology. Status post bone marrow biopsy. 07/24 Bone marrow biopsy shows mildly hypercellular marrow with mild megakaryocyte and myeloid hyperplasia. Thrombus thrombocytopenia resolved.. 8. Morbid obesity: acute mild protein energy malnutrition: He is eating better. Continue diet per speech as tolerated. 8. HCAP/aspiration pneumonia: Sputum culture 06/20 growing Enterobacter. Completed course of cefepime, Flagyl. Now off antibiotics and without any signs of infection. 9. GI prophylaxis: Protonix. 10. Diabetes mellitus: Monitor Accu-Cheks and cover with sliding scale insulin. Check hemoglobin A1C. Discharge Planning ok to transfer to medical floor with telemetry. Problem Qualifiers (1) Hypotension: Maciej Baig MD Jul 24, 2017 15:31
--- NOTE | 2017-07-24 16:56 | HHI.NPPN ---
Subjective History of Present Illness 57-year-old -Hungarian male with past medical history of seizure disorder, ischemic heart disease, cardiomyopathy, chronic kidney disease, hypertension, diabetes mellitus, atrial fibrillation who was admitted more than three weeks ago for shortness of breath. I was called to see the patient for elevated BUN and creatinine. The patient has a known history of chronic kidney disease and it seems like his baseline creatinine has been in the range of 1.4 to 1.7. Additional Remarks Patient remain with Trach. and has no SOB, eating well. Review of Systems Respiratory Lungs: SOB, Cough, Sputum, Wheeze Cardiovascular Cardiac: Edema, GATES Objective Data Data 07/24/17 07/25/17 18:59 06:59 Intake Total 520 ml Output Total 550 ml Balance -30 ml Intake Oral 520 ml Output Urine Total 550 ml Vital Signs Date Time Temp Pulse Resp B/P (MAP) Pulse Ox O2 Delivery O2 Flow Rate FiO2 07/24/17 16:00 95 07/24/17 15:08 Room Air 07/24/17 15:00 109 07/24/17 15:00 72 16 119/65 (83) 07/24/17 14:18 99 2.00 07/24/17 14:11 106 07/24/17 13:14 103 07/24/17 12:15 98.3 80 17 164/93 (116) 97 07/24/17 12:02 89 07/24/17 11:51 98.2 76 18 159/93 (115) 98 07/24/17 11:51 95 Room Air 07/24/17 11:47 97 07/24/17 11:00 99 07/24/17 10:11 95 07/24/17 09:30 84 07/24/17 08:24 96 Trach Collar 4.50 28 07/24/17 08:09 92 07/24/17 08:00 81 07/24/17 08:00 98.7 81 17 130/86 (101) 98 07/24/17 07:00 93 07/24/17 07:00 Venturi Mask 5.00 07/24/17 06:07 93 07/24/17 05:58 85 07/24/17 04:12 91 07/24/17 03:55 98.1 81 16 140/78 (98) 99 07/24/17 03:04 91 07/24/17 03:04 99 Venturi Mask 5.00 28 07/24/17 03:00 99 Venturi Mask 5.00 28 07/24/17 02:56 92 07/24/17 01:00 80 07/24/17 00:00 96 07/23/17 23:30 99 Venturi Mask 5.00 28 07/23/17 23:30 97.7 76 16 130/75 (93) 99 07/23/17 23:30 90 07/23/17 22:00 86 07/23/17 21:00 82 07/23/17 20:00 76 07/23/17 19:50 97.7 68 16 139/70 (93) 97 07/23/17 19:50 86 07/23/17 19:50 Room Air 07/23/17 18:50 92 07/23/17 18:29 94 21 07/23/17 17:10 104 -: 07/23/17 0610 07/24/17 0652 Physical Exam General Appearance: No Acute Distress, Comfortable Eyes Eye Exam: Pupils Equal Throat Throat Exam: Oral Mucosa [place] & Moist Neck Neck Exam: Neck Supple Pulmonary Resp Exam: Crackles, Rhonchi, Sputum, Decreased Bases, Diminished Breath Sounds Gastrointestinal/Abdomen GI Exam: Soft, Non-Tender, Bowel Sounds Present, Distended Extremeties Extremities Exam: Moderate Edema, Pitting Edema, Dependent Edema Neurologic Neuro Exam: Alert, Awake, Oriented Psychiatric Psych Exam: Appropriate Responses Assessment/Plan Assessment Summary: DENNYS/Acute Renal Failure, CKD Stage III Problem List: (1) Acute kidney injury ICD Codes: N17.9 - Acute kidney failure, unspecified (2) CHF (congestive heart failure) ICD Codes: I50.9 - Heart failure, unspecified Status: Resolved (3) DM (diabetes mellitus) ICD Codes: E11.9 - Type 2 diabetes mellitus without complications Status: Chronic (4) Peripheral edema ICD Codes: R60.9 - Edema, unspecified Status: Acute (5) Atrial fibrillation ICD Codes: I48.91 - Unspecified atrial fibrillation Status: Chronic (6) Atrial fibrillation with RVR ICD Codes: I48.91 - Unspecified atrial fibrillation Status: Resolved (7) CKD (chronic kidney disease), stage III ICD Codes: N18.3 - Chronic kidney disease, stage 3 (moderate) Status: Chronic Plan He has chronic kidney disease and the baseline Creatinine is close to 1.7-1.8. Most likely has underlying Hypertensive or renovascular disease. K increased again, give Kayexalate. Continue to hold diuretics. Urine out put is adequate. Possibly has ATN causing DENNYS. Creatinine is better, BP is stable. Continue to hold diuretics and Lisinopril. Avoid Nephrotoxins, follow the BMP. Rajan Hoyt MD Jul 24, 2017 16:56
--- NOTE | 2017-07-24 18:41 | HHI.PR ---
Subjective Remarks Alert and has Trach capped. Off O2 . sat 94 Able to sit in a chair. Objective Vital Signs Date Time Temp Pulse Resp B/P (MAP) Pulse Ox O2 Delivery O2 Flow Rate FiO2 07/24/17 17:00 98 07/24/17 16:00 95 07/24/17 15:08 Room Air 07/24/17 15:00 109 07/24/17 15:00 72 16 119/65 (83) 07/24/17 14:18 99 2.00 07/24/17 14:11 106 07/24/17 13:14 103 07/24/17 12:15 98.3 80 17 164/93 (116) 97 07/24/17 12:02 89 07/24/17 11:51 98.2 76 18 159/93 (115) 98 07/24/17 11:51 95 Room Air 07/24/17 11:47 97 07/24/17 11:00 99 07/24/17 10:11 95 07/24/17 09:30 84 07/24/17 08:24 96 Trach Collar 4.50 28 07/24/17 08:09 92 07/24/17 08:00 81 07/24/17 08:00 98.7 81 17 130/86 (101) 98 07/24/17 07:00 93 07/24/17 07:00 Venturi Mask 5.00 07/24/17 06:07 93 07/24/17 05:58 85 07/24/17 04:12 91 07/24/17 03:55 98.1 81 16 140/78 (98) 99 07/24/17 03:04 91 07/24/17 03:04 99 Venturi Mask 5.00 28 07/24/17 03:00 99 Venturi Mask 5.00 28 07/24/17 02:56 92 07/24/17 01:00 80 07/24/17 00:00 96 07/23/17 23:30 99 Venturi Mask 5.00 28 07/23/17 23:30 97.7 76 16 130/75 (93) 99 07/23/17 23:30 90 07/23/17 22:00 86 07/23/17 21:00 82 07/23/17 20:00 76 07/23/17 19:50 97.7 68 16 139/70 (93) 97 07/23/17 19:50 86 07/23/17 19:50 Room Air 07/23/17 18:50 92 I/O 07/23/17 07/23/17 07/23/17 07/24/17 07/24/17 07/24/17 07:00 15:00 23:00 07:00 15:00 23:00 Intake Total 480 ml 760 ml 520 ml Output Total 375 ml 550 ml 600 ml 550 ml Balance 105 ml -550 ml 160 ml -30 ml Intake Oral 480 ml 760 ml 520 ml Output Urine Total 375 ml 550 ml 600 ml 550 ml # Bowel Movements 1 2 Result Diagram: 07/23/17 0610 07/24/17 0652 Objective Remarks This is a moderately obese mid aged man with a trach HEENT: Head normocephalic. Pupils reactive . Throat is clear . Nasal mucosa is clear. Neck: Supple with trach tube in place. No thyromegaly. Chest: Distant breath sounds with occ wheeze.Few crackles at Bases Heart: The heart sounds were regular, S1-S2. No murmur or S3. Abdomen: Soft and benign. No masses. No organomegaly or tenderness. Bowel sounds active. Extremities: 1 + edema. Reflexes 1+ with no gross motor deficits. Neurologic: Moves all .he is oriented . Skin: No lesions observed. Assessment and Plan Assessment and Plan IMPRESSION 1. Chronic respiratory failure. 2. Chronic kidney disease stage III. 3. Atrial fibrillation and ASHD. 4. History of diabetes mellitus. 5. Hypertension. 6. S/P Trach Plan: 1. Wean FIO2 to keep sat >92. 2. BiPAP at HS 12/5 CM FIo2 28 % 3. Nebs qid , duoneb 4. Cont Anticoagulants. 5. Cap trach tube during the day 6. Will get Sleep test as OP. 7. PT and OT. 8. Labs in am 9. Transfer to residential Kurtis Patiño MD Jul 24, 2017 18:41
[2017-07-24] MEDS: CHLORHEXIDINE 0.12% (ORAL KIT) 15 ML CUP MT SCH (20:00)
[2017-07-24] MEDS: APIXABAN 2.5 MG TABLET NG SCH (22:46)
--- NOTE | 2017-07-24 23:43 | EKG ---
Date Performed: 07/24/2017 Time Performed: 14:34:38 PTAGE: 57 years EKG: Sinus tachycardia with PAC(s). Normal ECG except for rate PREVIOUS TRACING : 06/19/2017 02.37 Compared to the previous tracing, no significant estrella DOCTOR: Bola Wheat Interpretating Date/Time 07/25/2017 09:25:11
[2017-07-25] VITALS (8 sets, daily range): BP systolic 103–134; BP diastolic 50–90; PULSE 59–125; RESP 20; TEMP 97.6–98.5; O2SAT 96–100
[2017-07-25] MEDS: CHLORHEXIDINE GLUCONATE 2 % 1 PACK (2 CLOTHS) TOP SCH (04:00)
[2017-07-25] MEDS: METOPROLOL TARTRATE 100 MG TAB PO SCH (06:00)
[2017-07-25] MEDS: CHLORHEXIDINE 0.12% (ORAL KIT) 15 ML CUP MT SCH ×2 (08:00→20:00)
[2017-07-25] MEDS: SODIUM CHLORIDE 0.9% FLUSH 10 ML FLUSH IV FLUSH SCH ×2 (09:00→20:23)
[2017-07-25] MEDS: DOCUSATE SODIUM 50 MG/SENNA 8.6 MG TAB PO SCH ×2 (09:00→20:23)
[2017-07-25] MEDS: ARTIFICIAL TEARS OPTH SOLN 15 ML BTL EACH EYE SCH ×3 (09:00→18:00)
[2017-07-25 09:25] LABS: BICARBONATE 24.3 MEQ/L (21.0-32.0); MAGNESIUM 1.9 MG/DL (1.5-2.5); POTASSIUM 3.8 MEQ/L (3.5-5.1)
[2017-07-25] MEDS: TOPIRAMATE 100 MG TAB PO SCH (10:27)
[2017-07-25] MEDS: AMIODARONE 200 MG TAB NG SCH (10:27)
[2017-07-25] MEDS: APIXABAN 2.5 MG TABLET NG SCH ×2 (10:27→20:23)
[2017-07-25] MEDS: PANTOPRAZOLE SODIUM 40 MG VIAL IV SCH (10:28)
--- NOTE | 2017-07-25 15:54 | HHI.HCPN ---
Reason for visit a. To assist with evaluation and management of symptoms including: Dyspnea, pain, debility, dysphasia, seizure b. To assist medical decision maker(s) with: better understanding of current medical conditions; weighing benefits/burdens of medical treatment options; making medical treatment decisions. Subjective/Interval History 57-year-old male admitted to [facility] 06/14/17 status post PEA arrest 2, intubation, tracheostomy, now weaned to a trach collar. Improving, discharge planning in process to SNF for rehabilitation[facility] due to patient unresponsiveness, suspicious for seizure versus vasovagal syncope. Topamax level pending. Calcium, phosphorus, magnesium within normal limits. No recurrent syncope/seizure today. Consultations: * GI - patient able to swallow, no PEG tube needed, signed off. * Nephrology - holding diuretics and lisinopril, following recurrent hyperkalemia with PRN Kayexalate. * Pulmonology - weaning trach, cap tube during the day, cleared transfer to SNF. * Heme/Onc - following for thrombocytopenia, platelets back to normal, signed off. * Cardiology - A. fib with controlled rate, on eliquis, not a candidate for ablation. Acute on chronic systolic failure, EF 20% on beta obdulio. ACEI held by nephrology. Patient states he feels better today, no recurrent syncope/seizure. Has not been out of bed today. Yesterday's syncope versus seizure occurred after patient got up to recliner. Voice is stronger, able to speak well with [place]- [place] valve. On room air, no dyspnea today. . Advance Directives Living Will: Never completed Health Care Surrogate: Never completed Durable Power of System Safety Engineer: Never completed Advance Directive Specifics Health Care Surrogate(s): Meri Barrios godmomikel, resides in [place], , patient designated as [facility]. Documented care wishes: No known documented care wishes have been completed. . Objective Vital Signs Date Time Temp Pulse Resp B/P (MAP) Pulse Ox O2 Delivery O2 Flow Rate FiO2 07/25/17 13:38 99 Room Air 07/25/17 12:00 98.1 92 20 129/50 (76) 97 07/25/17 08:00 98.5 84 20 103/70 (81) 97 07/25/17 04:00 97.6 59 20 122/84 (97) 97 07/25/17 00:00 98.2 74 20 125/71 (89) 96 07/24/17 21:00 Room Air 07/24/17 20:00 97.9 74 20 112/71 (85) 97 07/24/17 17:45 97.9 82 16 127/68 (87) 98 07/24/17 17:00 98 07/24/17 16:00 95 Intake & Output 07/25/17 07/25/17 07:00 19:00 Intake Total 240 ml Output Total 400 ml Balance -160 ml Intake Oral 240 ml Output Urine Total 400 ml # Voids 2 # Bowel Movements 0 Physical Exam CONSTITUTIONAL/GENERAL: This is a morbidly obese male patient, in no apparent distress. TUBES/LINES/DRAINS: Tracheostomy, Anderson catheter, PIV x 2 ENT: Hearing grossly normal. Nose without bleeding or purulent drainage. Poor dentation, increased oral secretions. CARDIOVASCULAR: Irregular rhythm, intermittently tachycardic rate, no murmurs, gallops, or rubs. No JVD. Peripheral pulses symmetric. RESPIRATORY/CHEST: Symmetric, unlabored respirations. Coarse breath sounds GASTROINTESTINAL: Morbidly obese. Normoactive bowel sounds x 4 quadrants. GENITOURINARY: Without palpable bladder distension. Anderson catheter in place. MUSCULOSKELETAL: Extremities without clubbing or cyanosis. No edema, muscle atrophy. NEUROLOGICAL: Awake and alert. Communication improving, able to write his brother's name and communicate his needs. PSYCHIATRIC: No obvious anxiety/depression. no apparent hallucinations or other psychotic thought process. . Diagnostic Tests Laboratory Laboratory Tests Test 07/23/17 06:10 07/23/17 10:55 07/24/17 06:52 07/24/17 16:23 White Blood Count 9.4 TH/MM3 (4.0-11.0) Red Blood Count 4.12 MIL/MM3 (4.50-5.90) Hemoglobin 11.9 GM/DL (13.0-17.0) Hematocrit 36.7 % (39.0-51.0) Mean Corpuscular Volume 89.0 FL (80.0-100.0) Mean Corpuscular Hemoglobin 28.8 PG (27.0-34.0) Mean Corpuscular Hemoglobin Concent 32.3 % (32.0-36.0) Red Cell Distribution Width 13.6 % (11.6-17.2) Platelet Count 170 TH/MM3 (150-450) Mean Platelet Volume 11.6 FL (7.0-11.0) Blood Urea Nitrogen 42 MG/DL (7-18) 40 MG/DL (7-18) Creatinine 2.55 MG/DL (0.60-1.30) 2.27 MG/DL (0.60-1.30) Random Glucose 109 MG/DL (74-106) 88 MG/DL (74-106) Calcium Level 8.7 MG/DL (8.5-10.1) 8.9 MG/DL (8.5-10.1) Sodium Level 137 MEQ/L (136-145) 138 MEQ/L (136-145) Potassium Level 3.8 MEQ/L (3.5-5.1) 3.8 MEQ/L (3.5-5.1) Chloride Level 105 MEQ/L (98-107) 106 MEQ/L (98-107) Carbon Dioxide Level 22.7 MEQ/L (21.0-32.0) 24.5 MEQ/L (21.0-32.0) Anion Gap 9 MEQ/L (5-15) 8 MEQ/L (5-15) Estimat Glomerular Filtration Rate 32 ML/MIN (>89) 36 ML/MIN (>89) Test 07/25/17 07:49 Blood Urea Nitrogen 37 MG/DL (7-18) Creatinine 2.01 MG/DL (0.60-1.30) Random Glucose 92 MG/DL (74-106) Calcium Level 9.0 MG/DL (8.5-10.1) Phosphorus Level 3.1 MG/DL (2.5-4.9) Magnesium Level 1.9 MG/DL (1.5-2.5) Sodium Level 140 MEQ/L (136-145) Potassium Level 3.8 MEQ/L (3.5-5.1) Chloride Level 108 MEQ/L (98-107) Carbon Dioxide Level 24.3 MEQ/L (21.0-32.0) Anion Gap 8 MEQ/L (5-15) Estimat Glomerular Filtration Rate 42 ML/MIN (>89) Result Diagram: 07/23/17 0610 07/25/17 0749 Procedures 06/17/17: No pulmonary resuscitation with intubation 06/17/17: Right IJ CVL 06/17/17: Right femoral arterial line placement 06/22/17: Bronchoscopy 06/24/17: Right axillary arterial catheter placement 06/24/17: Tracheostomy with bronchoscopy Assessment and Plan Disease Oriented Problem List: (1) Renal insufficiency (2) Symptomatic bradycardia (3) Chronic systolic CHF (congestive heart failure) (4) Thrombocytopenia (5) DM (diabetes mellitus) Symptom Scale: (1) Pain 0-10 Scale: 0 (2) Dyspnea 0-10 Scale: Unable to quantify (3) Debility 0-10 Scale: Unable to quantify (4) Dysphagia 0-10 Scale: Unable to quantify Pertinent Non-Medical Issues Psychosocial: Spiritual: Caodaism Norma Legal: Ethical issues impacting care: Important Contacts Dahlia Urbina, mother: [phone] Felipe Salazar, friend: [phone] Meri Barrios, godmother, resides in [place], , patient designated as [facility]. . Prognosis Patient is morbidly obese with a complex medical history. Status post PEA arrest 2. EF <20%. Due to his significant medical noncompliance and poor dentition he is not a candidate for AICD implantation for sudden cardiac prevention at this time, making him a high risk for sudden cardiac arrest. Given the patient's multiple comorbid conditions and reported noncompliance, he is at high risk for ongoing setbacks and complications. His overall prognosis is poor, and it is unlikely that he will return to his previous functioning level/quality of life. . Code Status: Full Code Plan PLAN: Legal decision maker: Patient is currently capacitated to make his own decisions however has designated his godmother, Meri Barrios as his healthcare surrogate. Goals: Remain aggressive. CODE STATUS: FULL CODE SYMPTOMS: * Dyspnea - continues to wean from trach support. Trach capped during the day. Pulmonary following. * Debility - participating in physical therapy, DC plans to SNF when cleared for discharge. Case management working on placement. * Dysphasia - passed swallow evaluation, now on soft diet with thin liquids. Liquids are to be consumed with PMV on trach. * Pain - has [place] available as needed 5/325. Last pill taken 07/21/17. * Seizure - Topamax levels pending. Patient had seizure versus vasovagal syncope episode 07/24. Electrolytes evaluated, stable. EKG normal, EEG pending. Palliative care will continue to follow the patient during hospital course as condition evolves, to assist patient/decision-maker with understanding of their medical conditions, weighing benefits/burdens of treatment options, for clarification of goals of treatment. Additionally will assist with any symptoms of palliative concern . Makeda Nicholson Jul 25, 2017 3:54 pm
--- NOTE | 2017-07-25 18:04 | HHI.PR ---
Subjective Remarks Denies chest pain/sob denies fevers or chills Objective Vitals Vital Signs Date Time Temp Pulse Resp B/P (MAP) Pulse Ox O2 Delivery O2 Flow Rate FiO2 07/25/17 17:34 96 Nasal Cannula 2.00 07/25/17 16:00 97.6 60 20 134/90 (105) 96 07/25/17 13:38 99 Room Air 07/25/17 12:00 98.1 92 20 129/50 (76) 97 07/25/17 09:30 94 07/25/17 08:00 98.5 84 20 103/70 (81) 97 07/25/17 04:00 97.6 59 20 122/84 (97) 97 07/25/17 00:00 98.2 74 20 125/71 (89) 96 07/24/17 21:00 Room Air 07/24/17 20:00 97.9 74 20 112/71 (85) 97 I/O 07/24/17 07/24/17 07/24/17 07/25/17 07/25/17 07/25/17 07:00 15:00 23:00 07:00 15:00 23:00 Intake Total 760 ml 520 ml 240 ml Output Total 600 ml 550 ml 400 ml Balance 160 ml -30 ml -160 ml Intake Oral 760 ml 520 ml 240 ml Output Urine Total 600 ml 550 ml 400 ml # Voids 2 # Bowel Movements 2 1 0 Result Diagram: 07/23/17 0610 07/25/17 0749 Objective Remarks GENERAL: Morbidly obese, chronically ill-appearing male. Trached CARDIOVASCULAR: Normal rate and regular rhythm without murmurs, gallops, or rubs. RESPIRATORY: Trachea in place. Coarse breath sounds throughout. GASTROINTESTINAL: Morbidly obese. Hypoactive bowel sounds. Abdomen is soft, nontender. MUSCULOSKELETAL: Extremities with 1+ edema in bilateral lower extremities. NEURO: Awake. Alert. Able to talk PSYCH: Calm Procedures 06/17/17 intubation 06/17/17 CPR 06/17/17 right femoral arterial catheter placement 06/18/17 right IJ central line placement 06/22/17 fiberoptic bronchoscopy 06/24/17 right axillary arterial catheter placement 06/24/17 tracheostomy, bronchoscopy Medications and IVs Current Medications Medications (Trade) Dose Ordered Sig/Ashok Route Start Time Stop Time Status Last Admin (Narcan Inj) 0.4 mg UNSCH PRN IV 06/14/17 04:30 (Topamax) 100 mg DAILY PO 06/14/17 11:00 07/25/17 10:27 (Tylenol) 650 mg Q6H PRN PO 06/15/17 21:30 06/30/17 20:37 (Peridex 0.12% Liq) 15 ml BID@08,20 MT 06/17/17 20:00 07/24/17 20:00 (NS Flush) 2 ml UNSCH PRN IV FLUSH 06/17/17 14:15 (NS Flush) 2 ml BID IV FLUSH 06/17/17 21:00 07/25/17 09:00 (Protonix Inj) 40 mg DAILY IV 06/18/17 09:00 07/25/17 10:28 (Tears Naturale Opth Soln) 1 drop TID EACH EYE 06/17/17 18:00 07/24/17 18:45 (Zofran Inj) 4 mg Q6H PRN IV 06/17/17 14:15 07/20/17 18:00 (Albuterol Neb) 2.5 mg Q2HR NEB PRN INH 06/17/17 14:15 07/24/17 08:21 Miscellaneous Information 1 Q361D XX 06/17/17 14:15 (Chlorhexidine 2% Cloth) Taper DAILY@04 TOP 06/18/17 04:00 06/14/18 03:59 07/17/17 04:00 (Chlorhexidine 2% Cloth) 3 pack UNSCH PRN TOP 06/17/17 14:15 (Marilee-Colace) 1 tab BID PO 06/17/17 21:00 07/22/17 21:19 (Milk Of Magnesia Liq) 30 ml Q12H PRN PO 06/17/17 14:15 06/21/17 11:21 (Senokot) 17.2 mg Q12H PRN PO 06/17/17 14:15 (Dulcolax Supp) 10 mg DAILY PRN RECTAL 06/17/17 14:15 (Lactulose Liq) 30 ml DAILY PRN PO 06/17/17 14:15 06/21/17 11:21 (Trandate Inj) 10 mg Q1HR PRN IV PUSH 06/18/17 08:45 07/12/17 21:33 (Apresoline Inj) 10 mg Q1HR PRN IV PUSH 06/18/17 08:45 07/13/17 00:43 (Lopressor Inj) 2.5 mg Q6H PRN IV PUSH 06/25/17 15:30 07/08/17 02:24 (Cordarone) 200 mg DAILY NG 06/29/17 11:00 07/25/17 10:27 ([place] 5-325 Mg) 1 tab Q6H PRN PO 06/29/17 18:00 07/21/17 20:06 (Morphine Inj) 2 mg Q3H PRN IV PUSH 06/29/17 18:00 06/29/17 18:12 (Morphine Inj) 4 mg Q3H PRN IV PUSH 06/29/17 18:00 07/10/17 03:54 (Bumex Inj) 1 mg BID@09,18 IV PUSH 06/30/17 18:00 Future Hold 07/06/17 18:00 (Levsin Inj) 0.25 mg Q4H PRN IV PUSH 07/10/17 23:00 (Eliquis) 2.5 mg BID NG 07/12/17 21:00 07/25/17 10:27 (Reglan Inj) 5 mg Q8HR PRN IV PUSH 07/12/17 14:30 (Levsin) 0.25 mg Q4H PRN PO 07/14/17 11:00 07/21/17 20:07 Diltiazem HCl 125 mg/Sodium Chloride 125 ml @ 5 mls/hr TITRATE PRN IV 07/17/17 11:00 07/18/17 03:00 (Lopressor) 100 mg Q12H PO 07/18/17 18:00 07/25/17 06:00 A/P Problem List: (1) Hypotension ICD Code: I95.9 - Hypotension, unspecified Status: Resolved (2) Symptomatic bradycardia ICD Code: R00.1 - Bradycardia, unspecified Status: Resolved (3) CKD (chronic kidney disease), stage III ICD Code: N18.3 - Chronic kidney disease, stage 3 (moderate) Status: Chronic (4) Chronic systolic CHF (congestive heart failure) ICD Code: I50.22 - Chronic systolic (congestive) heart failure Status: Chronic (5) Atrial fibrillation ICD Code: I48.91 - Unspecified atrial fibrillation Status: Chronic (6) Acute worsening of stage 3 chronic kidney disease ICD Code: N18.3 - Chronic kidney disease, stage 3 (moderate) Status: Acute (7) Thrombocytopenia ICD Code: D69.6 - Thrombocytopenia, unspecified Status: Chronic Assessment and Plan In summary this is a 57-year-old male with complex comorbidities including ischemic heart disease, cardiomyopathy, chronic kidney disease, atrial fibrillation, status post cardiogenic shock and PEA cardiac arrest. Patient has had a prolonged ICU course. He has a trach. He is improving and have since moved to the floor. Continue rehabilitation efforts. He is pending [facility] at a [facility] facility. 1. Cardiogenic shock status post PEA cardiac arrest. Clinically stable currently. Patient was followed by cardiology. Reconsult Cardiology for persistent Afib - EF less than 20%. Continue beta obdulio, FABRICE inhibitor, and diuretics. 2. Chronic systolic congestive heart failure: Continue diuretics 3. Atrial fibrillation: Cardiology following. 07/24 Rate controlled Continue Eliquis at a lower dose 2.5 mg twice a day given renal failure. Continue amiodarone, metoprolol. 4. Respiratory failure: Trached after bone marrow biopsy. Acute hypoxic respiratory failure: Status post mechanical ventilation. Tolerating T piece. Continue bronchodilators, supplemental oxygen. Trach management per pulmonology. - Levsin as needed for secretions. 5. Acute kidney injury superimposed on chronic kidney disease, stage III: BUN and creatinine fluctuating. Avoid nephrotoxic medications. Appreciate nephrology recommendations. Anderson catheter in place. Continue to follow renal functions. Further plans per nephrology. 07/25 Creatinine slowly trending down, fu nephrology recommendations. 6. Seizure disorder: Continue Topamax. 07/24 patient states that he had a seizure episode today. I will order an EEG and order a Topamax level. 07/25 EEG and topamax level pending. 7. Thrombocytopenia: The patient was seen by hematology. Status post bone marrow biopsy. 07/24 Bone marrow biopsy shows mildly hypercellular marrow with mild megakaryocyte and myeloid hyperplasia. Thrombus thrombocytopenia resolved.. 8. Morbid obesity: acute mild protein energy malnutrition: He is eating better. Continue diet per speech as tolerated. 8. HCAP/aspiration pneumonia: Sputum culture 06/20 growing Enterobacter. Completed course of cefepime, Flagyl. Now off antibiotics and without any signs of infection. 9. GI prophylaxis: Protonix. 10. syncope: Vasovagal vs seizure episode. fu EEG and Topamax level. Check orthostatic BP. 10. Diabetes mellitus: Monitor Accu-Cheks and cover with sliding scale insulin. Check hemoglobin A1C. Discharge Planning DC pending EEG. If EEG negative then may DC. Problem Qualifiers (1) Hypotension: Maciej Baig MD Jul 25, 2017 18:04
--- NOTE | 2017-07-25 18:58 | HHI.PR ---
Subjective Remarks Alert and has Trach capped. Off O2 . sat 95 Able to talk. No SOB at rest Objective Vital Signs Date Time Temp Pulse Resp B/P (MAP) Pulse Ox O2 Delivery O2 Flow Rate FiO2 07/25/17 17:34 96 Nasal Cannula 2.00 07/25/17 16:00 97.6 60 20 134/90 (105) 96 07/25/17 13:38 99 Room Air 07/25/17 12:00 98.1 92 20 129/50 (76) 97 07/25/17 09:30 94 07/25/17 08:00 98.5 84 20 103/70 (81) 97 07/25/17 04:00 97.6 59 20 122/84 (97) 97 07/25/17 00:00 98.2 74 20 125/71 (89) 96 07/24/17 21:00 Room Air 07/24/17 20:00 97.9 74 20 112/71 (85) 97 I/O 07/24/17 07/24/17 07/24/17 07/25/17 07/25/17 07/25/17 07:00 15:00 23:00 07:00 15:00 23:00 Intake Total 760 ml 520 ml 240 ml 480 ml Output Total 600 ml 550 ml 400 ml 500 ml Balance 160 ml -30 ml -160 ml -20 ml Intake Oral 760 ml 520 ml 240 ml 480 ml Output Urine Total 600 ml 550 ml 400 ml 500 ml # Voids 2 # Bowel Movements 2 1 0 0 Result Diagram: 07/23/17 0610 07/25/17 0749 Objective Remarks This is a moderately obese mid aged man . No distress HEENT: Head normocephalic. Pupils reactive . Throat is clear . Nasal mucosa is clear. Neck: Supple with trach tube in place. No thyromegaly. Chest: Distant breath sounds with occ wheeze.Few crackles at Bases Heart: The heart sounds were regular, S1-S2. No murmur or S3. Abdomen: Soft and benign. No masses. No organomegaly or tenderness. Bowel sounds active. Extremities: 1 + edema. Reflexes 1+ with no gross motor deficits. Neurologic: Moves all .he is alert and oriented . Skin: No lesions observed. Assessment and Plan Assessment and Plan IMPRESSION 1. Chronic respiratory failure. 2. Chronic kidney disease stage III. 3. Atrial fibrillation and ASHD. 4. History of diabetes mellitus. 5. Hypertension. 6. S/P Trach Plan: 1. Wean FIO2 to keep sat >92. 2. BiPAP at HS 12/5 CM FIo2 21 % 3. Nebs qid , duoneb 4. Cont Anticoagulants. 5. Cap trach tube all the time 6. Will get Sleep test as OP. 7. PT and OT. 8. CXR in am 9. Transfer to custodial Kurtis Patiño MD Jul 25, 2017 18:58
--- NOTE | 2017-07-25 19:13 | MG ---
cc: GLORIA KOLB MD Lab No: Date: 07/25/17 Age: 57 Sex: M Race: REFERRING PHYSICIAN Dr. Bennett An EEG was obtained on this 57-year-old patient being evaluated for epilepsy. MEDICATIONS Lopressor Eliquis. The patient is described as awake and asleep. The EEG initially shows asleep features. There are some alpha rhythms diffusely and intermixed with theta activity. There is a lot of associated sharp waves bilaterally. Some probable sharp discharges. This EEG pattern persists. There are beta rhythms frontally. The patient is in a deeper sleep stage shortly after the beginning of the EEG recording. There continues to be some sharp discharges bilaterally. There are some sleepy spindles and K complexes. The patient awakens and there is more alpha activity and lesser of the theta rhythms, but the patient falls back asleep quickly. Photic stimulation shows some driving response bilaterally. INTERPRETATION This EEG shows prominent sleep features and some sharp discharges bilaterally consistent with mild encephalopathy and epileptiform discharges without lateralizing features. No ictal pattern. Gloria Kolb MD OFC/SA /6:39 PM /7:04 PM
--- NOTE | 2017-07-25 19:37 | RADRPT ---
EXAM DATE/TIME: 07/25/2017 19:03 [facility] COMPARISON: CHEST SINGLE AP, July 17, 2017, 5:33. INDICATIONS : Shortness of breath. MEDICAL HISTORY : A-fib. Hypercholesterolemia. Hypertension. Congestive heart failure. SURGICAL HISTORY : None. ENCOUNTER: Subsequent ACUITY: 1 day PAIN SCORE: 0/10 LOCATION: Bilateral chest FINDINGS: A single view of the chest demonstrates the lungs to be symmetrically aerated without evidence of mas s, infiltrate or effusion. The cardiomediastinal contours are unremarkable. Osseous structures are intact. Tracheostomy again noted. CONCLUSION: No evidence of acute cardiopulmonary disease. Kushal Horta MD on July 25, 2017 at 19:35 Board Certified Radiologist. This report was verified electronically.
--- NOTE | 2017-07-25 21:58 | HHI.NPPN ---
Subjective History of Present Illness 57-year-old -[place] male with past medical history of seizure disorder, ischemic heart disease, cardiomyopathy, chronic kidney disease, hypertension, diabetes mellitus, atrial fibrillation who was admitted more than three weeks ago for shortness of breath. I was called to see the patient for elevated BUN and creatinine. The patient has a known history of chronic kidney disease and it seems like his baseline creatinine has been in the range of 1.4 to 1.7. Additional Remarks Patient is alert, no SOB, eating better. Review of Systems Respiratory Lungs: SOB, Cough, Sputum, Wheeze Cardiovascular Cardiac: Edema, GATES Objective Data Data 07/25/17 07/26/17 18:59 06:59 Intake Total 480 ml Output Total 500 ml Balance -20 ml Intake Oral 480 ml Output Urine Total 500 ml # Bowel Movements 0 Vital Signs Date Time Temp Pulse Resp B/P (MAP) Pulse Ox O2 Delivery O2 Flow Rate FiO2 07/25/17 17:34 96 Nasal Cannula 2.00 07/25/17 16:00 97.6 60 20 134/90 (105) 96 07/25/17 13:38 99 Room Air 07/25/17 12:00 98.1 92 20 129/50 (76) 97 07/25/17 09:30 94 07/25/17 08:00 98.5 84 20 103/70 (81) 97 07/25/17 04:00 97.6 59 20 122/84 (97) 97 07/25/17 00:00 98.2 74 20 125/71 (89) 96 -: 07/23/17 0610 07/25/17 0749 Physical Exam General Appearance: No Acute Distress, Comfortable Eyes Eye Exam: Pupils Equal Throat Throat Exam: Oral Mucosa [place] & Moist Neck Neck Exam: Neck Supple Pulmonary Resp Exam: Crackles, Rhonchi, Sputum, Decreased Bases, Diminished Breath Sounds Gastrointestinal/Abdomen GI Exam: Soft, Non-Tender, Bowel Sounds Present, Distended Extremeties Extremities Exam: Moderate Edema, Pitting Edema, Dependent Edema Neurologic Neuro Exam: Alert, Awake, Oriented Psychiatric Psych Exam: Appropriate Responses Assessment/Plan Assessment Summary: DENNYS/Acute Renal Failure, CKD Stage III Problem List: (1) Acute kidney injury ICD Codes: N17.9 - Acute kidney failure, unspecified (2) CHF (congestive heart failure) ICD Codes: I50.9 - Heart failure, unspecified Status: Resolved (3) DM (diabetes mellitus) ICD Codes: E11.9 - Type 2 diabetes mellitus without complications Status: Chronic (4) Peripheral edema ICD Codes: R60.9 - Edema, unspecified Status: Acute (5) Atrial fibrillation ICD Codes: I48.91 - Unspecified atrial fibrillation Status: Chronic (6) Atrial fibrillation with RVR ICD Codes: I48.91 - Unspecified atrial fibrillation Status: Resolved (7) CKD (chronic kidney disease), stage III ICD Codes: N18.3 - Chronic kidney disease, stage 3 (moderate) Status: Chronic Plan He has chronic kidney disease and the baseline Creatinine is close to 1.7-1.8. Most likely has underlying Hypertensive or renovascular disease. K increased again, give Kayexalate. Continue to hold diuretics. Urine out put is adequate. Possibly has ATN causing DENNYS. Creatinine continue to improve, now 2.0 BP is stable. Continue to hold diuretics and Lisinopril. Avoid Nephrotoxins. Rajan Hoyt MD Jul 25, 2017 21:58
--- NOTE | 2017-07-25 22:02 | HHI.PR ---
Subjective Remarks DRAFT pt not seen Objective Vitals Vital Signs Date Time Temp Pulse Resp B/P (MAP) Pulse Ox O2 Delivery O2 Flow Rate FiO2 07/25/17 17:34 96 Nasal Cannula 2.00 07/25/17 16:00 97.6 60 20 134/90 (105) 96 07/25/17 13:38 99 Room Air 07/25/17 12:00 98.1 92 20 129/50 (76) 97 07/25/17 09:30 94 07/25/17 08:00 98.5 84 20 103/70 (81) 97 07/25/17 04:00 97.6 59 20 122/84 (97) 97 07/25/17 00:00 98.2 74 20 125/71 (89) 96 I/O 07/24/17 07/24/17 07/24/17 07/25/17 07/25/17 07/25/17 07:00 15:00 23:00 07:00 15:00 23:00 Intake Total 760 ml 520 ml 240 ml 480 ml Output Total 600 ml 550 ml 400 ml 500 ml Balance 160 ml -30 ml -160 ml -20 ml Intake Oral 760 ml 520 ml 240 ml 480 ml Output Urine Total 600 ml 550 ml 400 ml 500 ml # Voids 2 # Bowel Movements 2 1 0 0 Result Diagram: 07/23/17 0610 07/25/17 0749 Imaging Last Impressions Chest X-Ray 07/25/17 0000 Signed Impressions: Service Date/Time: July 19:03 - CONCLUSION: No evidence of acute cardiopulmonary disease. Kushal Horta MD Abdomen X-Ray 07/08/17 0000 Signed Impressions: Service Date/Time: Saturday, July 08, 2017 11:20 - CONCLUSION: NG tube as above. Florentino Herrera MD Head CT 06/18/17 0000 Signed Impressions: Service Date/Time: Sunday, June 18, 2017 00:48 - CONCLUSION: Negative exam. No evidence of intracranial hemorrhage. Ronni Capps MD Bone Biopsy CT 06/17/17 0000 Signed Impressions: Service Date/Time: Saturday, June 17, 2017 12:35 - CONCLUSION: Bone marrow aspiration and biopsy complicated by intubation and resuscitation. Pathology is pending. Rell Valentin MD FACR Abdomen Ultrasound 06/16/17 0000 Signed Impressions: Service Date/Time: Friday, June 16, 2017 18:13 - CONCLUSION: Limited sonographic windows due to patient body habitus and bowel gas. Right renal cyst. Visualized portions of the abdomen otherwise within normal limits. Jose Bruno MD Lower Extremity Ultrasound 06/14/17 0000 Signed Impressions: Service Date/Time: Wednesday, June 14, 2017 08:15 - CONCLUSION: Normal examination. Kushal Camacho MD Procedures 06/17/17 intubation 06/17/17 CPR 06/17/17 right femoral arterial catheter placement 06/18/17 right IJ central line placement 06/22/17 fiberoptic bronchoscopy 06/24/17 right axillary arterial catheter placement 06/24/17 tracheostomy, bronchoscopy A/P Problem List: (1) Hypotension ICD Code: I95.9 - Hypotension, unspecified Status: Resolved (2) Symptomatic bradycardia ICD Code: R00.1 - Bradycardia, unspecified Status: Resolved (3) CKD (chronic kidney disease), stage III ICD Code: N18.3 - Chronic kidney disease, stage 3 (moderate) Status: Chronic (4) Chronic systolic CHF (congestive heart failure) ICD Code: I50.22 - Chronic systolic (congestive) heart failure Status: Chronic (5) Atrial fibrillation ICD Code: I48.91 - Unspecified atrial fibrillation Status: Chronic (6) Acute worsening of stage 3 chronic kidney disease ICD Code: N18.3 - Chronic kidney disease, stage 3 (moderate) Status: Acute (7) Thrombocytopenia ICD Code: D69.6 - Thrombocytopenia, unspecified Status: Chronic Assessment and Plan In summary this is a 57-year-old male with complex comorbidities including ischemic heart disease, cardiomyopathy, chronic kidney disease, atrial fibrillation, status post cardiogenic shock and PEA cardiac arrest. Patient has had a prolonged ICU course. He has a trach. He is improving and have since moved to the floor. Continue rehabilitation efforts. He is pending placement at a [place] [facility] facility. 1. Cardiogenic shock status post PEA cardiac arrest. Clinically stable currently. Patient was followed by cardiology. Reconsult Cardiology for persistent Afib - EF less than 20%. Continue beta obdulio, FABRICE inhibitor, and diuretics. 2. Chronic systolic congestive heart failure: Continue diuretics 3. Atrial fibrillation: Cardiology following. 07/24 Rate controlled Continue Eliquis at a lower dose 2.5 mg twice a day given renal failure. Continue amiodarone, metoprolol. 4. Respiratory failure: Trached after bone marrow biopsy. Acute hypoxic respiratory failure: Status post mechanical ventilation. Tolerating T piece. Continue bronchodilators, supplemental oxygen. Trach management per pulmonology. - Levsin as needed for secretions. 5. Acute kidney injury superimposed on chronic kidney disease, stage III: BUN and creatinine fluctuating. Avoid nephrotoxic medications. Appreciate nephrology recommendations. Anderson catheter in place. Continue to follow renal functions. Further plans per nephrology. 07/25 Creatinine slowly trending down, fu nephrology recommendations. 6. Seizure disorder: Continue Topamax. 07/24 patient states that he had a seizure episode today. I will order an EEG and order a Topamax level. 07/25 EEG and topamax level pending. 7. Thrombocytopenia: The patient was seen by hematology. Status post bone marrow biopsy. 07/24 Bone marrow biopsy shows mildly hypercellular marrow with mild megakaryocyte and myeloid hyperplasia. Thrombus thrombocytopenia resolved.. 8. Morbid obesity: acute mild protein energy malnutrition: He is eating better. Continue diet per speech as tolerated. 8. HCAP/aspiration pneumonia: Sputum culture 06/20 growing Enterobacter. Completed course of cefepime, Flagyl. Now off antibiotics and without any signs of infection. 9. GI prophylaxis: Protonix. 10. syncope: Vasovagal vs seizure episode. fu EEG and Topamax level. Check orthostatic BP. 10. Diabetes mellitus: Monitor Accu-Cheks and cover with sliding scale insulin. Check hemoglobin A1C. Discharge Planning DC pending EEG. If EEG negative then may DC. Problem Qualifiers (1) Hypotension: Javed Zarate MD Jul 25, 2017 22:02
[2017-07-26] VITALS (8 sets, daily range): BP systolic 113–158; BP diastolic 69–88; PULSE 59–101; RESP 18–22; TEMP 97.6–98.3; O2SAT 94–100
[2017-07-26] MEDS: CHLORHEXIDINE GLUCONATE 2 % 1 PACK (2 CLOTHS) TOP SCH (03:49)
[2017-07-26] MEDS: METOPROLOL TARTRATE 100 MG TAB PO SCH ×2 (06:09→18:00)
--- NOTE | 2017-07-26 07:27 | PD.CARD.PN ---
Subjective Subjective Remarks Pt without CV complaints Objective Medications Current Medications Medications (Trade) Dose Ordered Sig/Ashok Route Start Time Stop Time Status Last Admin (Narcan Inj) 0.4 mg UNSCH PRN IV 06/14/17 04:30 (Topamax) 100 mg DAILY PO 06/14/17 11:00 07/25/17 10:27 (Tylenol) 650 mg Q6H PRN PO 06/15/17 21:30 06/30/17 20:37 (Peridex 0.12% Liq) 15 ml BID@08,20 MT 06/17/17 20:00 07/24/17 20:00 (NS Flush) 2 ml UNSCH PRN IV FLUSH 06/17/17 14:15 (NS Flush) 2 ml BID IV FLUSH 06/17/17 21:00 07/25/17 20:23 (Protonix Inj) 40 mg DAILY IV 06/18/17 09:00 07/25/17 10:28 (Tears Naturale Opth Soln) 1 drop TID EACH EYE 06/17/17 18:00 07/24/17 18:45 (Zofran Inj) 4 mg Q6H PRN IV 06/17/17 14:15 07/20/17 18:00 (Albuterol Neb) 2.5 mg Q2HR NEB PRN INH 06/17/17 14:15 07/24/17 08:21 Miscellaneous Information 1 Q361D XX 06/17/17 14:15 (Chlorhexidine 2% Cloth) 3 pack Taper DAILY@04 TOP 06/18/17 04:00 06/14/18 03:59 07/17/17 04:00 (Chlorhexidine 2% Cloth) 3 pack UNSCH PRN TOP 06/17/17 14:15 ([place]-Colace) 1 tab BID PO 06/17/17 21:00 07/22/17 21:19 (Milk Of Magnesia Liq) 30 ml Q12H PRN PO 06/17/17 14:15 06/21/17 11:21 (Senokot) 17.2 mg Q12H PRN PO 06/17/17 14:15 (Dulcolax Supp) 10 mg DAILY PRN RECTAL 06/17/17 14:15 (Lactulose Liq) 30 ml DAILY PRN PO 06/17/17 14:15 06/21/17 11:21 (Trandate Inj) 10 mg Q1HR PRN IV PUSH 06/18/17 08:45 07/12/17 21:33 (Apresoline Inj) 10 mg Q1HR PRN IV PUSH 06/18/17 08:45 07/13/17 00:43 (Lopressor Inj) 2.5 mg Q6H PRN IV PUSH 06/25/17 15:30 07/08/17 02:24 (Cordarone) 200 mg DAILY NG 06/29/17 11:00 07/25/17 10:27 ([place] 5-325 Mg) 1 tab Q6H PRN PO 06/29/17 18:00 07/21/17 20:06 (Morphine Inj) 2 mg Q3H PRN IV PUSH 06/29/17 18:00 06/29/17 18:12 (Bumex Inj) 1 mg BID@09,18 IV PUSH 06/30/17 18:00 Future Hold 07/06/17 18:00 (Levsin Inj) 0.25 mg Q4H PRN IV PUSH 07/10/17 23:00 (Eliquis) 2.5 mg BID NG 07/12/17 21:00 07/25/17 20:23 (Reglan Inj) 5 mg Q8HR PRN IV PUSH 07/12/17 14:30 (Levsin) 0.25 mg Q4H PRN PO 07/14/17 11:00 07/21/17 20:07 Diltiazem HCl 125 mg/Sodium Chloride 125 ml @ 5 mls/hr TITRATE PRN IV 07/17/17 11:00 07/18/17 03:00 (Lopressor) 100 mg Q12H PO 07/18/17 18:00 07/26/17 06:09 Vital Signs / I&O Vital Signs Date Time Temp Pulse Resp B/P (MAP) Pulse Ox O2 Delivery O2 Flow Rate FiO2 07/26/17 04:00 97.9 84 18 136/72 (93) 94 07/26/17 04:00 Nasal Cannula 2.00 07/26/17 00:00 Nasal Cannula 2.00 07/26/17 00:00 98.3 59 18 141/88 (105) 100 07/25/17 20:00 125 07/25/17 20:00 98.0 74 20 133/86 (102) 100 07/25/17 20:00 Nasal Cannula 2.00 07/25/17 17:34 96 Nasal Cannula 2.00 07/25/17 16:00 97.6 60 20 134/90 (105) 96 07/25/17 13:38 99 Room Air 07/25/17 12:00 98.1 92 20 129/50 (76) 97 07/25/17 09:30 94 07/25/17 08:00 98.5 84 20 103/70 (81) 97 I/O 07/25/17 07/25/17 07/25/17 07/26/17 07/26/17 07/26/17 07:00 15:00 23:00 07:00 15:00 23:00 Intake Total 240 ml 480 ml Output Total 400 ml 500 ml Balance -160 ml -20 ml Intake Oral 240 ml 480 ml Output Urine Total 400 ml 500 ml # Voids 2 # Bowel Movements 0 0 Physical Exam GENERAL: Well developed, on trach collar HEENT: Jugular venous pressure is normal. CHEST: Lungs decreased in bases. Unlabored respiratory effort. CARDIAC: irregular rate and rhythm without S3, S4, or murmur. ABDOMEN: Soft, EXTREMITIES: No clubbing, Laboratory Laboratory Tests Test 07/25/17 07:49 Blood Urea Nitrogen 37 MG/DL Creatinine 2.01 MG/DL Random Glucose 92 MG/DL Calcium Level 9.0 MG/DL Phosphorus Level 3.1 MG/DL Magnesium Level 1.9 MG/DL Sodium Level 140 MEQ/L Potassium Level 3.8 MEQ/L Chloride Level 108 MEQ/L Carbon Dioxide Level 24.3 MEQ/L Anion Gap 8 MEQ/L Estimat Glomerular Filtration Rate 42 ML/MIN Assessment and Plan Assessment and Plan AF - fair rate control; continue present meds given resting HR around 60 - on eliquis -apparently not/poor AF ablation candidate per EP Resp Failure - trach collar Acute on chronic systolic failure- Cardiomyopathy- ECHO EF 20% - BB, no FABRICE with Cr 2.0 Thrombocytopenia- resolved CKD- Jamila Mccormack MD Jul 26, 2017 07:26
[2017-07-26] MEDS: CHLORHEXIDINE 0.12% (ORAL KIT) 15 ML CUP MT SCH ×2 (08:00→20:00)
[2017-07-26] MEDS: DOCUSATE SODIUM 50 MG/SENNA 8.6 MG TAB PO SCH ×2 (08:16→20:44)
[2017-07-26] MEDS: PANTOPRAZOLE SODIUM 40 MG VIAL IV SCH (08:16)
[2017-07-26] MEDS: AMIODARONE 200 MG TAB NG SCH (08:16)
[2017-07-26] MEDS: APIXABAN 2.5 MG TABLET NG SCH ×2 (08:16→20:44)
[2017-07-26] MEDS: TOPIRAMATE 100 MG TAB PO SCH ×2 (09:00→20:44)
[2017-07-26] MEDS: ARTIFICIAL TEARS OPTH SOLN 15 ML BTL EACH EYE SCH ×3 (09:00→18:00)
[2017-07-26] MEDS: SODIUM CHLORIDE 0.9% FLUSH 10 ML FLUSH IV FLUSH SCH ×2 (09:00→20:44)
[2017-07-26] MEDS ORDERED: TOPIRAMATE 100 MG TAB PO ONE (12:30)
--- NOTE | 2017-07-26 12:59 | HHI.PR ---
Subjective Remarks Alert and has Trach capped for 2 days now. On 2 L O2 . sat 95 Able to talk. No SOB at rest. Taking his diet . Objective Vital Signs Date Time Temp Pulse Resp B/P (MAP) Pulse Ox O2 Delivery O2 Flow Rate FiO2 07/26/17 12:24 98.2 86 20 143/73 (96) 98 07/26/17 08:20 99 Nasal Cannula 2.00 07/26/17 08:10 97.6 70 21 158/78 (104) 100 07/26/17 04:00 97.9 84 18 136/72 (93) 94 07/26/17 04:00 Nasal Cannula 2.00 07/26/17 00:00 Nasal Cannula 2.00 07/26/17 00:00 98.3 59 18 141/88 (105) 100 07/25/17 20:00 125 07/25/17 20:00 98.0 74 20 133/86 (102) 100 07/25/17 20:00 Nasal Cannula 2.00 07/25/17 17:34 96 Nasal Cannula 2.00 07/25/17 16:00 97.6 60 20 134/90 (105) 96 07/25/17 13:38 99 Room Air I/O 07/25/17 07/25/17 07/25/17 07/26/17 07/26/17 07/26/17 07:00 15:00 23:00 07:00 15:00 23:00 Intake Total 240 ml 480 ml 720 ml Output Total 400 ml 275 ml 500 ml 300 ml Balance -160 ml -275 ml -20 ml 420 ml Intake Oral 240 ml 480 ml 720 ml Output Urine Total 400 ml 275 ml 500 ml 300 ml # Voids 2 # Bowel Movements 0 0 0 Result Diagram: 07/23/17 0610 07/25/17 0749 Objective Remarks This is a moderately obese mid aged man . No distress HEENT: Head normocephalic. Pupils reactive . Throat is clear . Nasal mucosa is clear. Neck: Supple with trach tube in place. No thyromegaly. Chest: Distant breath sounds with Few crackles at Bases Heart: The heart sounds were regular, S1-S2. No murmur or S3. Abdomen: Soft and benign. No masses. No organomegaly or tenderness. Bowel sounds active. Extremities: Mild edema. Reflexes 1+ with no gross motor deficits. Neurologic: Moves all .he is alert and oriented . Skin: No lesions observed. Assessment and Plan Assessment and Plan IMPRESSION 1. Chronic respiratory failure. 2. Chronic kidney disease stage III. 3. Atrial fibrillation and ASHD. 4. History of diabetes mellitus. 5. Hypertension. 6. S/P Trach Plan: 1. Wean FIO2 to keep sat >92. 2. D/C BiPAP at HS . Refused 3. Nebs qid , duoneb 4. Cont Anticoagulants. 5. Cap trach tube all the time 6. Will get Sleep test as OP. 7. PT and OT. 8. Will D/C Trach on Saturday. 9. Transfer to [facility] Kurtis Patiño MD Jul 26, 2017 12:59
--- NOTE | 2017-07-26 13:43 | MB ---
cc: GLORIA ESCOBAR M.D. DATE OF CONSULTATION: 07/26/2017 REASON FOR CONSULTATION The patient is a 57-year-old seen in neurological consultation in regard to seizures. He had an abnormal EEG. HISTORY OF PRESENT ILLNESS The patient has been in the hospital since June 14. He has multiple co-morbidities but neurologically he has been doing reasonably well. The day before yesterday he blacked out and apparently had some seizure-like activity. He has a history of seizures and apparently known for several years. He had been taking Topamax 200 mg every morning at home. He appears that here in the hospital he has been taking 100 mg a day. PAST MEDICAL HISTORY 1. Atrial fibrillation. 2. Cardiomyopathy. 3. Chronic kidney disease. 4. Diabetes. 5. Hypertension. 6. Obesity. 7. Thrombocytopenia. NEUROLOGICAL EXAMINATION On exam he was awake, alert, pleasant and cooperative. He is oriented. Mentally he seems to be doing well and provides some adequate information. He is in good spirits. He is aware of the environment and is cooperative. His ocular movements and visual lopez were full. Pupils equal and reactive. There is no facial weakness, no evidence of tongue injury. Speech is clear. He is morbidly obese. His reflexes were absent throughout and plantar responses were flexor. He has normal [id number]-[id number] testing, no arm drift. He raises the lower extremities and opposes moderate resistance without any focal features. LABORATORY DATA Recent laboratory data was reviewed. On 07/23/2017 the WBC was 9.4, hemoglobin 11.9, platelets 170. On 07/25/2017 the sodium and potassium were normal, BUN 37, creatinine 2.01. Topiramate level is pending from 07/24/2017. ASSESSMENT Probable recent seizure recurrence. History of seizures/epilepsy. PLAN I gave him an extra 100 mg of topiramate this morning. Order was written a few hours ago. Will change his usual dose of topiramate to 100 mg twice a day starting tonight. Therefore today he will receive a total of 300 mg and he had received the initial, usual 100 mg dose. His EEG was interpreted by me yesterday with some suggestion of sharp discharges, epileptiform features, but there was no ictal abnormality. In the future will consider follow-up EEGs. Will follow-up with topiramate level as well. I will see him periodically unless other seizures or neurological questions arise. Thank you for asking us to assist in his care. MD SADIA Hernandez/BT /1:22 PM /1:31 PM
[2017-07-26] MEDS ORDERED: APIX2.5T NG ×2 (14:02→14:06)
[2017-07-26] MEDS ORDERED: TOPA100T11 PO ×2 (14:02→14:06)
[2017-07-26] MEDS ORDERED: ALBU0.08 INH ×2 (14:02→14:06)
[2017-07-26] MEDS ORDERED: PANT40TA3 PO ×2 (14:02→14:06)
[2017-07-26] MEDS ORDERED: METO-338 PO ×2 (14:02→14:06)
--- NOTE | 2017-07-26 14:12 | HHI.DCPOC ---
Discharge Care Plan Diagnosis: (1) Atrial fibrillation Your Health Problems Are: Difficulty with ADL Exercise Tolerance Goals to Promote Your Health * To prevent worsening of your condition and complications * To maintain your health at the optimal level Directions to Meet Your Goals Take your medications as prescribed Follow your dietary instruction Follow activity as directed Keep your appointments as scheduled Take your immunizations and boosters as scheduled If your symptoms worsen call your PCP, if no PCP go to Urgent Care Center or Emergency Room Smoking is Dangerous to Your Health. Avoid second hand smoke Call the 24-hour hour crisis hotline for domestic abuse at Javed Zarate MD Jul 26, 2017 14:12
--- NOTE | 2017-07-26 14:23 | HHI.PR ---
Subjective Remarks Follow-up seizure. No recurrence. Patient doing well tolerating nasal cannula. Discussed with pulmonary okay for discharge and discontinue tracheostomy on 07/29/17. Discussed with RN Objective Vitals Vital Signs Date Time Temp Pulse Resp B/P (MAP) Pulse Ox O2 Delivery O2 Flow Rate FiO2 07/26/17 12:24 98.2 86 20 143/73 (96) 98 07/26/17 08:20 99 Nasal Cannula 2.00 07/26/17 08:10 97.6 70 21 158/78 (104) 100 07/26/17 04:00 97.9 84 18 136/72 (93) 94 07/26/17 04:00 Nasal Cannula 2.00 07/26/17 00:00 Nasal Cannula 2.00 07/26/17 00:00 98.3 59 18 141/88 (105) 100 07/25/17 20:00 125 07/25/17 20:00 98.0 74 20 133/86 (102) 100 07/25/17 20:00 Nasal Cannula 2.00 07/25/17 17:34 96 Nasal Cannula 2.00 07/25/17 16:00 97.6 60 20 134/90 (105) 96 I/O 07/25/17 07/25/17 07/25/17 07/26/17 07/26/17 07/26/17 07:00 15:00 23:00 07:00 15:00 23:00 Intake Total 240 ml 480 ml 720 ml Output Total 400 ml 275 ml 500 ml 300 ml Balance -160 ml -275 ml -20 ml 420 ml Intake Oral 240 ml 480 ml 720 ml Output Urine Total 400 ml 275 ml 500 ml 300 ml # Voids 2 # Bowel Movements 0 0 0 Result Diagram: 07/23/17 0610 07/25/17 0749 Imaging Last Impressions Chest X-Ray 07/25/17 0000 Signed Impressions: Service Date/Time: July 19:03 - CONCLUSION: No evidence of acute cardiopulmonary disease. Kushal Horta MD Abdomen X-Ray 07/08/17 0000 Signed Impressions: Service Date/Time: Saturday, July 08, 2017 11:20 - CONCLUSION: NG tube as above. Florentino Herrera MD Head CT 06/18/17 0000 Signed Impressions: Service Date/Time: Sunday, June 18, 2017 00:48 - CONCLUSION: Negative exam. No evidence of intracranial hemorrhage. Ronni Capps MD Bone Biopsy CT 06/17/17 0000 Signed Impressions: Service Date/Time: Saturday, June 17, 2017 12:35 - CONCLUSION: Bone marrow aspiration and biopsy complicated by intubation and resuscitation. Pathology is pending. Rell Valentin MD FACR Abdomen Ultrasound 06/16/17 0000 Signed Impressions: Service Date/Time: Friday, June 16, 2017 18:13 - CONCLUSION: Limited sonographic windows due to patient body habitus and bowel gas. Right renal cyst. Visualized portions of the abdomen otherwise within normal limits. Jose Bruno MD Lower Extremity Ultrasound 06/14/17 0000 Signed Impressions: Service Date/Time: Wednesday, June 14, 2017 08:15 - CONCLUSION: Normal examination. Kushal Camacho MD Objective Remarks Well-developed, obese in no distress on nasal cannula Pupils equally reactive to light and no jaundice Neck Tracheostomy capped Equal in expansion clear to auscultation Irregularly irregular with controlled ventricular response Abdomen soft obese nontender Extremities no edema and no cyanosis Procedures 06/17/17 intubation 06/17/17 CPR 06/17/17 right femoral arterial catheter placement 06/18/17 right IJ central line placement 06/22/17 fiberoptic bronchoscopy 06/24/17 right axillary arterial catheter placement 06/24/17 tracheostomy, bronchoscopy A/P Problem List: (1) Hypotension ICD Code: I95.9 - Hypotension, unspecified Status: Resolved (2) Symptomatic bradycardia ICD Code: R00.1 - Bradycardia, unspecified Status: Resolved (3) CKD (chronic kidney disease), stage III ICD Code: N18.3 - Chronic kidney disease, stage 3 (moderate) Status: Chronic (4) Chronic systolic CHF (congestive heart failure) ICD Code: I50.22 - Chronic systolic (congestive) heart failure Status: Chronic (5) Atrial fibrillation ICD Code: I48.91 - Unspecified atrial fibrillation Status: Chronic (6) Acute worsening of stage 3 chronic kidney disease ICD Code: N18.3 - Chronic kidney disease, stage 3 (moderate) Status: Acute (7) Thrombocytopenia ICD Code: D69.6 - Thrombocytopenia, unspecified Status: Chronic Assessment and Plan In summary this is a 57-year-old male with complex comorbidities including ischemic heart disease, cardiomyopathy, chronic kidney disease, atrial fibrillation, status post cardiogenic shock and PEA cardiac arrest. Patient has had a prolonged ICU course. He has a trach. He is improving. Continue rehabilitation efforts. [facility]. 1. Cardiogenic shock status post PEA cardiac arrest. Clinically stable currently. Patient was followed by cardiology. - EF less than 20%. Continue beta obdulio. FABRICE inhibitor on hold secondary to acute kidney injury 2. Chronic systolic congestive heart failure: Improved 3. Atrial fibrillation: Rate controlled Continue Eliquis at a lower dose 2.5 mg twice a day given renal failure. Continue amiodarone, metoprolol. 4. Respiratory failure: Trached after bone marrow biopsy. Acute hypoxic respiratory failure: Status post mechanical ventilation. Tolerating capped trach. Continue bronchodilators, supplemental oxygen. Trach management per pulmonology, to dc trach 07/29/17. - Levsin as needed for secretions. 5. Acute kidney injury superimposed on chronic kidney disease, stage III: BUN and creatinine fluctuating. Avoid nephrotoxic medications. Appreciate nephrology recommendations. Continue to follow renal functions. Further plans per nephrology. 6. Seizure disorder: Abnormal EEG. Per neurology increase Topamax to 100 mg twice a day and follow up level and EEG outpatient. 7. Thrombocytopenia: The patient was seen by hematology. Status post bone marrow biopsy. 07/24 Bone marrow biopsy shows mildly hypercellular marrow with mild megakaryocyte and myeloid hyperplasia. 8. Morbid obesity: acute mild protein energy malnutrition: He is eating better. Continue diet per speech as tolerated. 8. HCAP/aspiration pneumonia: Sputum culture 06/20 growing Enterobacter. Completed course of cefepime, Flagyl. Now off antibiotics and without any signs of infection. 9. GI prophylaxis: Protonix. 10. syncope: Vasovagal vs seizure episode. Check orthostatic BP discussed with RN. Problem Qualifiers (1) Hypotension: Javed Zarate MD Jul 26, 2017 14:23
--- NOTE | 2017-07-26 14:24 | HHI.DS ---
Discharge Summary Admission Date Jun 14, 2017 at 04:55 Discharge Date: Jul 28, 2017 Admitting Diagnosis symptomatic bradycardia, hypotension (1) Hypotension ICD Code: I95.9 - Hypotension, unspecified Diagnosis: Principal Status: Resolved (2) Symptomatic bradycardia ICD Code: R00.1 - Bradycardia, unspecified Diagnosis: Principal Status: Resolved (3) CKD (chronic kidney disease), stage III ICD Code: N18.3 - Chronic kidney disease, stage 3 (moderate) Diagnosis: Principal Status: Chronic (4) Chronic systolic CHF (congestive heart failure) ICD Code: I50.22 - Chronic systolic (congestive) heart failure Diagnosis: Principal Status: Chronic (5) Atrial fibrillation ICD Code: I48.91 - Unspecified atrial fibrillation Diagnosis: Principal Status: Chronic (6) Acute worsening of stage 3 chronic kidney disease ICD Code: N18.3 - Chronic kidney disease, stage 3 (moderate) Diagnosis: Principal Status: Acute (7) Thrombocytopenia ICD Code: D69.6 - Thrombocytopenia, unspecified Diagnosis: Principal Status: Chronic Procedures 06/17/17 intubation 06/17/17 CPR 06/17/17 right femoral arterial catheter placement 06/18/17 right IJ central line placement 06/22/17 fiberoptic bronchoscopy 06/24/17 right axillary arterial catheter placement 06/24/17 tracheostomy, bronchoscopy Brief History - From Admission Written by Analy Maier, acting as scribe for Dr. Peñaloza on 06/14/17 at 04:57. The patient had dental pain on Saturday and took antibiotics, vomited yesterday x 1. He reports that he also felt weak. Denies black or red colored vomit, denies diarrhea, denies dysphagia, denies jaw pain, falls, dizziness, syncope. Denies fever, hematuria, chest pain. He reports some dyspnea with exertion - "have to stop and catch my breath". He states that he thinks his swatch maker told him he needs a pacemaker. . CBC/BMP: 07/23/17 0610 07/25/17 0749 Significant Findings Laboratory Tests Test 07/24/17 06:52 07/24/17 16:23 07/25/17 07:49 Blood Urea Nitrogen 40 MG/DL (7-18) 37 MG/DL (7-18) Creatinine 2.27 MG/DL (0.60-1.30) 2.01 MG/DL (0.60-1.30) Estimat Glomerular Filtration Rate 36 ML/MIN (>89) 42 ML/MIN (>89) Chloride Level 108 MEQ/L (98-107) Imaging Last Impressions Chest X-Ray 07/25/17 0000 Signed Impressions: Service Date/Time: July 19:03 - CONCLUSION: No evidence of acute cardiopulmonary disease. Kushal Horta MD Abdomen X-Ray 07/08/17 0000 Signed Impressions: Service Date/Time: Saturday, July 08, 2017 11:20 - CONCLUSION: NG tube as above. Florentino Herrera MD Head CT 06/18/17 0000 Signed Impressions: Service Date/Time: Sunday, June 18, 2017 00:48 - CONCLUSION: Negative exam. No evidence of intracranial hemorrhage. Ronni Capps MD Bone Biopsy CT 06/17/17 0000 Signed Impressions: Service Date/Time: Saturday, June 17, 2017 12:35 - CONCLUSION: Bone marrow aspiration and biopsy complicated by intubation and resuscitation. Pathology is pending. Rell Valentin MD FACR Abdomen Ultrasound 06/16/17 0000 Signed Impressions: Service Date/Time: Friday, June 16, 2017 18:13 - CONCLUSION: Limited sonographic windows due to patient body habitus and bowel gas. Right renal cyst. Visualized portions of the abdomen otherwise within normal limits. Jose Bruno MD Lower Extremity Ultrasound 06/14/17 0000 Signed Impressions: Service Date/Time: Wednesday, June 14, 2017 08:15 - CONCLUSION: Normal examination. Kushal Camacho MD PE at Discharge Well-developed, obese in no distress on nasal cannula Pupils equally reactive to light and no jaundice Neck Tracheostomy capped Equal in expansion clear to auscultation Irregularly irregular with controlled ventricular response Abdomen soft obese nontender Extremities no edema and no cyanosis Hospital Course In summary this is a 57-year-old male with complex comorbidities including ischemic heart disease, cardiomyopathy, chronic kidney disease, atrial fibrillation, status post cardiogenic shock and PEA cardiac arrest. Patient has had a prolonged ICU course. He has a trach. He is improving. Continue rehabilitation efforts. He is pending placement at a senior care facility. 1. Cardiogenic shock status post PEA cardiac arrest. Clinically stable currently. Patient was followed by cardiology. - EF less than 20%. Continue beta obdulio. FABRICE inhibitor on hold secondary to acute kidney injury 2. Chronic systolic congestive heart failure: Improved 3. Atrial fibrillation: Rate controlled Continue Eliquis at a lower dose 2.5 mg twice a day given renal failure. Continue amiodarone, metoprolol. 4. Respiratory failure: Trached after bone marrow biopsy. Acute hypoxic respiratory failure: Status post mechanical ventilation. Tolerating capped trach. Continue bronchodilators, supplemental oxygen. Trach management per pulmonology, to dc trach 07/29/17. - Levsin as needed for secretions. 5. Acute kidney injury superimposed on chronic kidney disease, stage III: BUN and creatinine fluctuating. Avoid nephrotoxic medications. Appreciate nephrology recommendations. Continue to follow renal functions. Further plans per nephrology. 6. Seizure disorder: Abnormal EEG. Per neurology increase Topamax to 100 mg twice a day and follow up level and EEG outpatient. 7. Thrombocytopenia: The patient was seen by hematology. Status post bone marrow biopsy which shows mildly hypercellular marrow with mild megakaryocyte and myeloid hyperplasia. 8. Morbid obesity: acute mild protein energy malnutrition: He is eating better. Continue diet per speech as tolerated. 8. HCAP/aspiration pneumonia: Sputum culture 06/20 growing Enterobacter. Completed course of cefepime, Flagyl. Now off antibiotics and without any signs of infection. 9. GI prophylaxis: Protonix. 10. syncope: Vasovagal vs seizure episode. Check orthostatic BP discussed with RN. Pt Condition on Discharge: Stable Discharge Disposition: Discharge to SNF Discharge Time: > 30 minutes Discharge Instructions DIET: Follow Instructions for: Heart Healthy Diet Speech Therapy-Diet Recommends: Soft, [place] Thickened Liquids Activities you can perform: Regular-No Restrictions Activities to Avoid: Driving Follow up Referrals: PCP Follow-up - 2-3 Days Pulmonology New Medications: Albuterol Neb (Albuterol Neb) 2.5 Mg/3 Ml Neb 2.5 MG INH Q2HR NEB PRN for SOB/WHEEZING, #120 NEBULE Apixaban (Eliquis) 2.5 Mg Tab 2.5 MG NG BID for Prevent Blood Clot, #60 TAB Metoprolol Tartrate (Lopressor) 100 Mg Tab 100 MG PO Q12H for Blood Pressure Management, #60 TAB Pantoprazole (Pantoprazole) 40 Mg Tab 40 MG PO DAILY for Manage Heartburn, #30 TAB Topiramate (Topamax) 100 Mg Tab 100 MG PO BID for Control Seizures, #60 TAB Continued Medications: Amiodarone (Amiodarone) 200 Mg Tab 200 MG PO DAILY for HEART, #30 TAB Discontinued Medications: Apixaban (Eliquis) 5 Mg Tab 5 MG PO BID for AFIB, #[address] (Aspirin EC) 81 Mg Tabdr 81 MG PO DAILY for HEART, #30 TAB Bumetanide (Bumetanide) 1 Mg Tab 1 MG PO DAILY for kidneys, diuretic, #30 TAB Diltiazem ER 24 HR (Diltiazem ER 24 HR) 240 Mg Caper 240 MG PO BID, #30 CAP 0 Refills Doxazosin (Doxazosin) 2 Mg Tab 2 MG PO DAILY, #30 TAB 0 Refills Enalapril (Enalapril) 20 Mg Tab 20 MG PO DAILY, #30 TAB 0 Refills Ipratropium Neb (Ipratropium Neb) 0.5 Mg/2.5 Ml Amp 0.5 MG NEB Q6HR NEB PRN for SOB/WHEEZING, #30 ML Metoprolol Tartrate (Metoprolol Tartrate) 100 Mg Tab 50 MG PO BID for AFIB, #30 TAB 0 Refills Topiramate (Topiramate) 200 Mg Tab 200 MG PO DAILY for Control Seizures, #60 TAB 0 Refills Javed Zarate MD Jul 26, 2017 14:24
--- NOTE | 2017-07-26 16:10 | HHI.NPPN ---
Subjective History of Present Illness 57-year-old -[place] male with past medical history of seizure disorder, ischemic heart disease, cardiomyopathy, chronic kidney disease, hypertension, diabetes mellitus, atrial fibrillation who was admitted more than three weeks ago for shortness of breath. I was called to see the patient for elevated BUN and creatinine. The patient has a known history of chronic kidney disease and it seems like his baseline creatinine has been in the range of 1.4 to 1.7. Additional Remarks Patient is alert, no SOB, feeling better, eating well. Review of Systems Respiratory Lungs: SOB, Cough, Sputum, Wheeze Cardiovascular Cardiac: Edema, GATES Objective Data Data Vital Signs Date Time Temp Pulse Resp B/P (MAP) Pulse Ox O2 Delivery O2 Flow Rate FiO2 07/26/17 12:24 98.2 86 20 143/73 (96) 98 07/26/17 10:00 97 Nasal Cannula 2.00 07/26/17 08:20 99 Nasal Cannula 2.00 07/26/17 08:10 97.6 70 21 158/78 (104) 100 07/26/17 08:00 77 07/26/17 04:00 97.9 84 18 136/72 (93) 94 07/26/17 04:00 Nasal Cannula 2.00 07/26/17 00:00 Nasal Cannula 2.00 07/26/17 00:00 98.3 59 18 141/88 (105) 100 07/25/17 20:00 125 07/25/17 20:00 98.0 74 20 133/86 (102) 100 07/25/17 20:00 Nasal Cannula 2.00 07/25/17 17:34 96 Nasal Cannula 2.00 -: 07/23/17 0610 07/25/17 0749 Physical Exam General Appearance: No Acute Distress, Comfortable Eyes Eye Exam: Pupils Equal Throat Throat Exam: Oral Mucosa [place] & Moist Neck Neck Exam: Neck Supple Pulmonary Resp Exam: Crackles, Rhonchi, Sputum, Decreased Bases, Diminished Breath Sounds Gastrointestinal/Abdomen GI Exam: Soft, Non-Tender, Bowel Sounds Present, Distended Extremeties Extremities Exam: Moderate Edema, Pitting Edema, Dependent Edema Neurologic Neuro Exam: Alert, Awake, Oriented Psychiatric Psych Exam: Appropriate Responses Assessment/Plan Assessment Summary: DENNYS/Acute Renal Failure, CKD Stage III Problem List: (1) Acute kidney injury ICD Codes: N17.9 - Acute kidney failure, unspecified (2) CHF (congestive heart failure) ICD Codes: I50.9 - Heart failure, unspecified Status: Resolved (3) DM (diabetes mellitus) ICD Codes: E11.9 - Type 2 diabetes mellitus without complications Status: Chronic (4) Peripheral edema ICD Codes: R60.9 - Edema, unspecified Status: Acute (5) Atrial fibrillation ICD Codes: I48.91 - Unspecified atrial fibrillation Status: Chronic (6) Atrial fibrillation with RVR ICD Codes: I48.91 - Unspecified atrial fibrillation Status: Resolved (7) CKD (chronic kidney disease), stage III ICD Codes: N18.3 - Chronic kidney disease, stage 3 (moderate) Status: Chronic Plan He has chronic kidney disease and the baseline Creatinine is close to 1.7-1.8. Most likely has underlying Hypertensive or renovascular disease. K increased again, give Kayexalate. Continue to hold diuretics. Urine out put is adequate. Possibly has ATN causing DENNYS. Creatinine was 2.0 yesterday, close to his baseline. Now for D/C, off diuretics. Will need follow up , I can see him in 3-4 weeks. Rajan Hoyt MD Jul 26, 2017 16:10
[2017-07-27] VITALS (9 sets, daily range): BP systolic 112–139; BP diastolic 62–85; PULSE 62–111; RESP 16–20; TEMP 97.4–99.8; O2SAT 95–100
[2017-07-27] MEDS: CHLORHEXIDINE GLUCONATE 2 % 1 PACK (2 CLOTHS) TOP SCH (02:37)
[2017-07-27] MEDS: METOPROLOL TARTRATE 100 MG TAB PO SCH ×2 (05:23→17:22)
[2017-07-27] MEDS: CHLORHEXIDINE 0.12% (ORAL KIT) 15 ML CUP MT SCH ×2 (07:50→20:00)
[2017-07-27] MEDS: DOCUSATE SODIUM 50 MG/SENNA 8.6 MG TAB PO SCH ×2 (08:49→20:10)
[2017-07-27] MEDS: ARTIFICIAL TEARS OPTH SOLN 15 ML BTL EACH EYE SCH ×3 (08:50→17:21)
[2017-07-27] MEDS: PANTOPRAZOLE SOD 40 MG DELAYED RELEASE TAB PO SCH (08:55)
[2017-07-27] MEDS: SODIUM CHLORIDE 0.9% FLUSH 10 ML FLUSH IV FLUSH SCH ×2 (08:55→20:09)
[2017-07-27] MEDS: TOPIRAMATE 100 MG TAB PO SCH ×2 (08:55→20:10)
[2017-07-27] MEDS: APIXABAN 2.5 MG TABLET NG SCH ×2 (08:55→20:10)
[2017-07-27] MEDS: AMIODARONE 200 MG TAB NG SCH (08:55)
--- NOTE | 2017-07-27 13:44 | HHI.PR ---
Subjective Remarks Follow-up seizure. No recurrence. Patient seen and evaluated Patient doing well tolerating nasal cannula. Patient reported an episode of nausea yesterday that lasted several minutes; did not request medication. Patient reported yesterday walking from bed to the door of room and back without incident. No new issues reported by patient. Pt denied fever, cough, shortness of breath, vomiting, diarrhea, abdominal/ chest pain. Per RN (Lynn) no acute issues since start of shift. Objective Vitals Vital Signs Date Time Temp Pulse Resp B/P (MAP) Pulse Ox O2 Delivery O2 Flow Rate FiO2 07/27/17 12:00 97.4 80 16 135/79 (97) 97 07/27/17 11:21 Room Air 07/27/17 09:50 96 21 07/27/17 09:19 79 07/27/17 08:15 81 07/27/17 08:00 98.0 75 16 139/85 (103) 97 07/27/17 07:45 Room Air 07/27/17 04:00 97.4 72 18 118/84 (95) 97 07/27/17 04:00 Room Air 07/27/17 00:00 98.4 62 20 123/62 (82) 98 07/27/17 00:00 Room Air 07/26/17 22:13 21 07/26/17 20:00 98.1 68 22 118/69 (85) 98 07/26/17 20:00 Room Air 07/26/17 20:00 101 07/26/17 16:10 98.0 80 20 113/70 (84) 97 I/O 07/26/17 07/26/17 07/26/17 07/27/17 07/27/17 07/27/17 07:00 15:00 23:00 07:00 15:00 23:00 Intake Total 720 ml 600 ml 480 ml Output Total 300 ml 175 ml 650 ml Balance 420 ml 425 ml -170 ml Intake Oral 720 ml 600 ml 480 ml Output Urine Total 300 ml 175 ml 650 ml # Bowel Movements 0 0 1 Result Diagram: 07/23/17 0610 07/25/17 0749 Imaging Last Impressions Chest X-Ray 07/25/17 0000 Signed Impressions: Service Date/Time: July 19:03 - CONCLUSION: No evidence of acute cardiopulmonary disease. Kushal Horta MD Abdomen X-Ray 07/08/17 0000 Signed Impressions: Service Date/Time: Saturday, July 08, 2017 11:20 - CONCLUSION: NG tube as above. Florentino Herrera MD Head CT 06/18/17 0000 Signed Impressions: Service Date/Time: Sunday, June 18, 2017 00:48 - CONCLUSION: Negative exam. No evidence of intracranial hemorrhage. Ronni Capps MD Bone Biopsy CT 06/17/17 0000 Signed Impressions: Service Date/Time: Saturday, June 17, 2017 12:35 - CONCLUSION: Bone marrow aspiration and biopsy complicated by intubation and resuscitation. Pathology is pending. Rell Valentin MD FACR Abdomen Ultrasound 06/16/17 0000 Signed Impressions: Service Date/Time: Friday, June 16, 2017 18:13 - CONCLUSION: Limited sonographic windows due to patient body habitus and bowel gas. Right renal cyst. Visualized portions of the abdomen otherwise within normal limits. Jose Bruno MD Lower Extremity Ultrasound 06/14/17 0000 Signed Impressions: Service Date/Time: Wednesday, June 14, 2017 08:15 - CONCLUSION: Normal examination. Kushal Camacho MD Objective Remarks GENERAL: Pt encountered laying a bed, awake and alert, trach tube capped. NAD. SKIN: Warm and dry. HEAD: Normocephalic. EYES: No scleral icterus. No injection or drainage. NECK: Supple, trachea midline. No lymphadenopathy. CARDIOVASCULAR: Irregularly irregular rhythm with regular rate without murmurs, gallops, or rubs. RESPIRATORY: Breath sounds equal bilaterally. No wheezes rhonchi or crackles. No accessory muscle use. GASTROINTESTINAL: Abdomen soft, non-tender, nondistended. MUSCULOSKELETAL: No cyanosis, or edema. PSYCHIATRIC: Mood and affect appropriate. Patient did not evidence overt signs of depression and or anxiety. Speech was clear and fluent. Procedures 06/17/17 intubation 06/17/17 CPR 06/17/17 right femoral arterial catheter placement 06/18/17 right IJ central line placement 06/22/17 fiberoptic bronchoscopy 06/24/17 right axillary arterial catheter placement 06/24/17 tracheostomy, bronchoscopy Medications and IVs Current Medications Medications (Trade) Dose Ordered Sig/Ashok Route Start Time Stop Time Status Last Admin (Narcan Inj) 0.4 mg UNSCH PRN IV 06/14/17 04:30 (Tylenol) 650 mg Q6H PRN PO 06/15/17 21:30 06/30/17 20:37 (Peridex 0.12% Liq) 15 ml BID@08,20 MT 06/17/17 20:00 07/24/17 20:00 (NS Flush) 2 ml UNSCH PRN IV FLUSH 06/17/17 14:15 (NS Flush) 2 ml BID IV FLUSH 06/17/17 21:00 07/27/17 08:55 (Tears Naturale Opth Soln) 1 drop TID EACH EYE 06/17/17 18:00 07/24/17 18:45 (Zofran Inj) 4 mg Q6H PRN IV 06/17/17 14:15 07/20/17 18:00 (Albuterol Neb) 2.5 mg Q2HR NEB PRN INH 06/17/17 14:15 07/24/17 08:21 Miscellaneous Information 1 Q361D XX 06/17/17 14:15 (Chlorhexidine 2% Cloth) 3 pack Taper DAILY@04 TOP 06/18/17 04:00 06/14/18 03:59 07/17/17 04:00 (Chlorhexidine 2% Cloth) 3 pack UNSCH PRN TOP 06/17/17 14:15 (Marilee-Colace) 1 tab BID PO 06/17/17 21:00 07/26/17 08:16 (Milk Of Magnesia Liq) 30 ml Q12H PRN PO 06/17/17 14:15 06/21/17 11:21 (Senokot) 17.2 mg Q12H PRN PO 06/17/17 14:15 (Dulcolax Supp) 10 mg DAILY PRN RECTAL 06/17/17 14:15 (Lactulose Liq) 30 ml DAILY PRN PO 06/17/17 14:15 06/21/17 11:21 (Trandate Inj) 10 mg Q1HR PRN IV PUSH 06/18/17 08:45 07/12/17 21:33 (Apresoline Inj) 10 mg Q1HR PRN IV PUSH 06/18/17 08:45 07/13/17 00:43 (Lopressor Inj) 2.5 mg Q6H PRN IV PUSH 06/25/17 15:30 07/08/17 02:24 (Cordarone) 200 mg DAILY NG 06/29/17 11:00 07/27/17 08:55 ([place] 5-325 Mg) 1 tab Q6H PRN PO 06/29/17 18:00 07/21/17 20:06 (Morphine Inj) 2 mg Q3H PRN IV PUSH 06/29/17 18:00 06/29/17 18:12 (Bumex Inj) 1 mg BID@,18 IV PUSH 06/30/17 18:00 Future Hold 07/06/17 18:00 (Levsin Inj) 0.25 mg Q4H PRN IV PUSH 07/10/17 23:00 (Eliquis) 2.5 mg BID NG 07/12/17 21:00 07/27/17 08:55 (Reglan Inj) 5 mg Q8HR PRN IV PUSH 07/12/17 14:30 (Levsin) 0.25 mg Q4H PRN PO 07/14/17 11:00 07/21/17 20:07 Diltiazem HCl 125 mg/Sodium Chloride 125 ml @ 5 mls/hr TITRATE PRN IV 07/17/17 11:00 07/18/17 03:00 (Lopressor) 100 mg Q12H PO 07/18/17 18:00 07/27/17 05:23 (Topamax) 100 mg BID PO 07/26/17 21:00 07/27/17 08:55 (Protonix) 40 mg DAILY PO 07/27/17 09:00 07/27/17 08:55 Urinary Catheter: No A/P Problem List: (1) Hypotension ICD Code: I95.9 - Hypotension, unspecified Status: Resolved (2) Symptomatic bradycardia ICD Code: R00.1 - Bradycardia, unspecified Status: Resolved (3) CKD (chronic kidney disease), stage III ICD Code: N18.3 - Chronic kidney disease, stage 3 (moderate) Status: Chronic (4) Chronic systolic CHF (congestive heart failure) ICD Code: I50.22 - Chronic systolic (congestive) heart failure Status: Chronic (5) Atrial fibrillation ICD Code: I48.91 - Unspecified atrial fibrillation Status: Chronic (6) Acute worsening of stage 3 chronic kidney disease ICD Code: N18.3 - Chronic kidney disease, stage 3 (moderate) Status: Acute (7) Thrombocytopenia ICD Code: D69.6 - Thrombocytopenia, unspecified Status: Chronic Assessment and Plan In summary this is a 57-year-old male with complex comorbidities including ischemic heart disease, cardiomyopathy, chronic kidney disease, atrial fibrillation, status post cardiogenic shock and PEA cardiac arrest. Patient has had a prolonged ICU course. He has a trach. He is improving. Continue rehabilitation efforts. He is pending [facility] at a [facility] facility. Seizures: Patient seen by neurology. Topiramate 100 mg twice a day. Acute kidney injury: BUN trending downwards. Creatinine 2.01. Estimated GFR 42. Patient evidencing improved function. Hypertension: Controlled with metoprolol 100 mg every 12 hours. 1. Cardiogenic shock status post PEA cardiac arrest. Clinically stable currently. Patient was followed by cardiology. - EF less than 20%. Continue beta obdulio. FABRICE inhibitor on hold secondary to acute kidney injury 2. Chronic systolic congestive heart failure: Improved 3. Atrial fibrillation: Rate controlled Continue Eliquis at a lower dose 2.5 mg twice a day given renal failure. Continue amiodarone, metoprolol. 4. Respiratory failure: Trached after bone marrow biopsy. Acute hypoxic respiratory failure: Status post mechanical ventilation. Tolerating capped trach. Continue bronchodilators, supplemental oxygen. Trach management per pulmonology, to dc trach 07/29/17. - Levsin as needed for secretions. 5. Acute kidney injury superimposed on chronic kidney disease, stage III: BUN and creatinine fluctuating. Avoid nephrotoxic medications. Appreciate nephrology recommendations. Continue to follow renal functions. Further plans per nephrology. 6. Seizure disorder: Abnormal EEG. Per neurology increase Topamax to 100 mg twice a day and follow up level and EEG outpatient. 7. Thrombocytopenia: The patient was seen by hematology. Status post bone marrow biopsy. 07/24 Bone marrow biopsy shows mildly hypercellular marrow with mild megakaryocyte and myeloid hyperplasia. 8. Morbid obesity: acute mild protein energy malnutrition: He is eating better. Continue diet per speech as tolerated. 8. HCAP/aspiration pneumonia: Sputum culture 06/20 growing Enterobacter. Completed course of cefepime, Flagyl. Now off antibiotics and without any signs of infection. 9. GI prophylaxis: Protonix. 10. syncope: Vasovagal vs seizure episode. Check orthostatic BP discussed with RN. Case discussed with patient, RN and Dr. aZrate Problem Qualifiers (1) Hypotension: Clayton Mccarty Jr. Jul 27, 2017 13:44
--- NOTE | 2017-07-27 16:47 | HHI.NPPN ---
Subjective History of Present Illness 57-year-old -[place]ian male with past medical history of seizure disorder, ischemic heart disease, cardiomyopathy, chronic kidney disease, hypertension, diabetes mellitus, atrial fibrillation who was admitted more than three weeks ago for shortness of breath. I was called to see the patient for elevated BUN and creatinine. The patient has a known history of chronic kidney disease and it seems like his baseline creatinine has been in the range of 1.4 to 1.7. Additional Remarks Patient is alert, no SOB, feeling better, eating well. Review of Systems Respiratory Lungs: SOB, Cough, Sputum, Wheeze Cardiovascular Cardiac: Edema, GATES Objective Data Data 07/27/17 07/28/17 19:00 07:00 Intake Total 1080 ml Output Total 450 ml Balance 630 ml Intake Oral 1080 ml Output Urine Total 450 ml # Bowel Movements 1 Vital Signs Date Time Temp Pulse Resp B/P (MAP) Pulse Ox O2 Delivery O2 Flow Rate FiO2 07/27/17 15:12 07/27/17 15:11 Room Air 07/27/17 12:00 97.4 80 16 135/79 (97) 97 07/27/17 11:21 Room Air 07/27/17 09:50 96 21 07/27/17 09:19 79 07/27/17 08:15 81 07/27/17 08:00 98.0 75 16 139/85 (103) 97 07/27/17 07:45 Room Air 07/27/17 04:00 97.4 72 18 118/84 (95) 97 07/27/17 04:00 Room Air 07/27/17 00:00 98.4 62 20 123/62 (82) 98 07/27/17 00:00 Room Air 07/26/17 22:13 21 07/26/17 20:00 98.1 68 22 118/69 (85) 98 07/26/17 20:00 Room Air 07/26/17 20:00 101 -: 07/23/17 0610 07/25/17 0749 Physical Exam General Appearance: No Acute Distress, Comfortable Eyes Eye Exam: Pupils Equal Throat Throat Exam: Oral Mucosa [place] & Moist Neck Neck Exam: Neck Supple Pulmonary Resp Exam: Crackles, Rhonchi, Sputum, Decreased Bases, Diminished Breath Sounds Gastrointestinal/Abdomen GI Exam: Soft, Non-Tender, Bowel Sounds Present, Distended Extremeties Extremities Exam: Moderate Edema, Pitting Edema, Dependent Edema Neurologic Neuro Exam: Alert, Awake, Oriented Psychiatric Psych Exam: Appropriate Responses Assessment/Plan Assessment Summary: DENNYS/Acute Renal Failure, CKD Stage III Problem List: (1) Acute kidney injury ICD Codes: N17.9 - Acute kidney failure, unspecified (2) CHF (congestive heart failure) ICD Codes: I50.9 - Heart failure, unspecified Status: Resolved (3) DM (diabetes mellitus) ICD Codes: E11.9 - Type 2 diabetes mellitus without complications Status: Chronic (4) Peripheral edema ICD Codes: R60.9 - Edema, unspecified Status: Acute (5) Atrial fibrillation ICD Codes: I48.91 - Unspecified atrial fibrillation Status: Chronic (6) Atrial fibrillation with RVR ICD Codes: I48.91 - Unspecified atrial fibrillation Status: Resolved (7) CKD (chronic kidney disease), stage III ICD Codes: N18.3 - Chronic kidney disease, stage 3 (moderate) Status: Chronic Plan He has chronic kidney disease and the baseline Creatinine is close to 1.7-1.8. Most likely has underlying Hypertensive or renovascular disease. K increased again, give Kayexalate. Continue to hold diuretics. Urine out put is adequate. Possibly has ATN causing DENNYS. Creatinine was 2.0 yesterday, close to his baseline. Now for D/C, off diuretics. Will need follow up , I can see him in 3-4 weeks. Rajan Hoyt MD Jul 27, 2017 16:47
[2017-07-28] VITALS: BP 146/81; PULSE 82; RESP 18; TEMP 97; O2SAT 96
[2017-07-28] MEDS: CHLORHEXIDINE GLUCONATE 2 % 1 PACK (2 CLOTHS) TOP SCH (00:19)
[2017-07-28 04:00] VITALS: BP 127/81; PULSE 84; RESP 18; TEMP 98.1; O2SAT 99
[2017-07-28] MEDS: METOPROLOL TARTRATE 100 MG TAB PO SCH (06:08)
[2017-07-28 08:00] VITALS: BP 121/82; PULSE 85; PULSE 87; RESP 18; TEMP 97.8; O2SAT 99
[2017-07-28] MEDS: CHLORHEXIDINE 0.12% (ORAL KIT) 15 ML CUP MT SCH (08:00)
[2017-07-28 08:10] VITALS: O2SAT 98
[2017-07-28] MEDS: AMIODARONE 200 MG TAB NG SCH (08:23)
[2017-07-28] MEDS: PANTOPRAZOLE SOD 40 MG DELAYED RELEASE TAB PO SCH (08:23)
[2017-07-28] MEDS: SODIUM CHLORIDE 0.9% FLUSH 10 ML FLUSH IV FLUSH SCH (08:24)
[2017-07-28] MEDS: DOCUSATE SODIUM 50 MG/SENNA 8.6 MG TAB PO SCH (08:24)
[2017-07-28] MEDS: TOPIRAMATE 100 MG TAB PO SCH (08:24)
[2017-07-28] MEDS: APIXABAN 2.5 MG TABLET NG SCH (08:24)
[2017-07-28] MEDS: ARTIFICIAL TEARS OPTH SOLN 15 ML BTL EACH EYE SCH ×2 (08:25→13:00)
[2017-07-28 09:44] LABS: BICARBONATE 26.6 MEQ/L (21.0-32.0); POTASSIUM 3.8 MEQ/L (3.5-5.1)
--- NOTE | 2017-07-28 11:28 | HHI.PR ---
Review/Management Daily Summary 07/28 doing well no cx exam alert and good spirits no seizure recurrence continue topiramate prn neuro, thx Subjective Subjective Comments No acute neuro events reported No headache Active Medications Current Medications Medications (Trade) Dose Ordered Sig/Ashok Route Start Time Stop Time Status Last Admin (Narcan Inj) 0.4 mg UNSCH PRN IV 06/14/17 04:30 (Tylenol) 650 mg Q6H PRN PO 06/15/17 21:30 06/30/17 20:37 (Peridex 0.12% Liq) 15 ml BID@08,20 MT 06/17/17 20:00 07/24/17 20:00 (NS Flush) 2 ml UNSCH PRN IV FLUSH 06/17/17 14:15 (NS Flush) 2 ml BID IV FLUSH 06/17/17 21:00 07/28/17 08:24 (Tears Naturale Opth Soln) 1 drop TID EACH EYE 06/17/17 18:00 07/28/17 08:25 (Zofran Inj) 4 mg Q6H PRN IV 06/17/17 14:15 07/20/17 18:00 (Albuterol Neb) 2.5 mg Q2HR NEB PRN INH 06/17/17 14:15 07/24/17 08:21 Miscellaneous Information 1 Q361D XX 06/17/17 14:15 (Chlorhexidine 2% Cloth) 3 pack Taper DAILY@04 TOP 06/18/17 04:00 06/14/18 03:59 07/17/17 04:00 (Chlorhexidine 2% Cloth) 3 pack UNSCH PRN TOP 06/17/17 14:15 (Marilee-Colace) 1 tab BID PO 06/17/17 21:00 07/26/17 08:16 (Milk Of Magnesia Liq) 30 ml Q12H PRN PO 06/17/17 14:15 06/21/17 11:21 (Senokot) 17.2 mg Q12H PRN PO 06/17/17 14:15 (Dulcolax Supp) 10 mg DAILY PRN RECTAL 06/17/17 14:15 (Lactulose Liq) 30 ml DAILY PRN PO 06/17/17 14:15 06/21/17 11:21 (Trandate Inj) 10 mg Q1HR PRN IV PUSH 06/18/17 08:45 07/12/17 21:33 (Apresoline Inj) 10 mg Q1HR PRN IV PUSH 06/18/17 08:45 07/13/17 00:43 (Lopressor Inj) 2.5 mg Q6H PRN IV PUSH 06/25/17 15:30 07/08/17 02:24 (Cordarone) 200 mg DAILY NG 06/29/17 11:00 07/28/17 08:23 ([place] 5-325 Mg) 1 tab Q6H PRN PO 06/29/17 18:00 07/21/17 20:06 (Morphine Inj) 2 mg Q3H PRN IV PUSH 06/29/17 18:00 06/29/17 18:12 (Bumex Inj) 1 mg BID@09,18 IV PUSH 06/30/17 18:00 Future Hold 07/06/17 18:00 (Levsin Inj) 0.25 mg Q4H PRN IV PUSH 07/10/17 23:00 (Eliquis) 2.5 mg BID NG 07/12/17 21:00 07/28/17 08:24 (Reglan Inj) 5 mg Q8HR PRN IV PUSH 07/12/17 14:30 (Levsin) 0.25 mg Q4H PRN PO 07/14/17 11:00 07/21/17 20:07 Diltiazem HCl 125 mg/Sodium Chloride 125 ml @ 5 mls/hr TITRATE PRN IV 07/17/17 11:00 07/18/17 03:00 (Lopressor) 100 mg Q12H PO 07/18/17 18:00 07/28/17 06:08 (Topamax) 100 mg BID PO 07/26/17 21:00 07/28/17 08:24 (Protonix) 40 mg DAILY PO 07/27/17 09:00 07/28/17 08:23 Allergies Allergies Coded Allergies castor oil (Unverified Allergy, Unknown, THROW UP, 06/18/17) Exam I&O / VS Vital Signs Date Time Temp Pulse Resp B/P (MAP) Pulse Ox O2 Delivery O2 Flow Rate FiO2 07/28/17 08:10 98 21 07/28/17 08:00 97.8 87 18 121/82 (95) 99 07/28/17 04:00 98.1 84 18 127/81 (96) 99 07/28/17 04:00 Room Air 07/28/17 00:00 97.0 82 18 146/81 (102) 96 07/28/17 00:00 Room Air 07/27/17 20:00 Room Air 07/27/17 20:00 83 07/27/17 20:00 97.4 74 18 128/83 (98) 95 07/27/17 16:00 98.2 82 16 130/82 (98) 98 07/27/17 15:12 07/27/17 15:11 Room Air 07/27/17 12:00 97.4 80 16 135/79 (97) 97 Objective Micro and Labs Laboratory Tests Test 07/28/17 08:28 Blood Urea Nitrogen 31 Creatinine 2.04 Random Glucose 86 Calcium Level 8.5 Sodium Level 139 Potassium Level 3.8 Chloride Level 106 Carbon Dioxide Level 26.6 Anion Gap 6 Estimat Glomerular Filtration Rate 41 Date/Time Source Procedure Growth Status 06/22/17 17:00 Bronchial Washings Left Lower Lobe Fungal Smear - Final NO FUNGAL ELEMENTS SEEN. Complete 06/22/17 17:00 Bronchial Washings Left Lower Lobe Fungal Culture - Final NO GROWTH IN 4 WEEKS Complete Kevin Kolb MD Jul 28, 2017 11:28
--- NOTE | 2017-07-28 11:49 | HHI.NPPN ---
Subjective History of Present Illness 57-year-old -[place] male with past medical history of seizure disorder, ischemic heart disease, cardiomyopathy, chronic kidney disease, hypertension, diabetes mellitus, atrial fibrillation who was admitted more than three weeks ago for shortness of breath. I was called to see the patient for elevated BUN and creatinine. The patient has a known history of chronic kidney disease and it seems like his baseline creatinine has been in the range of 1.4 to 1.7. Additional Remarks Patient is alert, no SOB, no complain, clinically stable. Review of Systems Respiratory Lungs: SOB, Cough, Sputum, Wheeze Cardiovascular Cardiac: Edema, GATES Objective Data Data Vital Signs Date Time Temp Pulse Resp B/P (MAP) Pulse Ox O2 Delivery O2 Flow Rate FiO2 07/28/17 08:10 98 21 07/28/17 08:00 97.8 87 18 121/82 (95) 99 07/28/17 04:00 98.1 84 18 127/81 (96) 99 07/28/17 04:00 Room Air 07/28/17 00:00 97.0 82 18 146/81 (102) 96 07/28/17 00:00 Room Air 07/27/17 20:00 Room Air 07/27/17 20:00 83 07/27/17 20:00 97.4 74 18 128/83 (98) 95 07/27/17 16:00 98.2 82 16 130/82 (98) 98 07/27/17 15:12 07/27/17 15:11 Room Air 07/27/17 12:00 97.4 80 16 135/79 (97) 97 -: 07/28/17 0828 Physical Exam General Appearance: No Acute Distress, Comfortable Eyes Eye Exam: Pupils Equal Throat Throat Exam: Oral Mucosa [place] & Moist Neck Neck Exam: Neck Supple Pulmonary Resp Exam: Crackles, Rhonchi, Sputum, Decreased Bases, Diminished Breath Sounds Gastrointestinal/Abdomen GI Exam: Soft, Non-Tender, Bowel Sounds Present, Distended Extremeties Extremities Exam: Moderate Edema, Pitting Edema, Dependent Edema Neurologic Neuro Exam: Alert, Awake, Oriented Psychiatric Psych Exam: Appropriate Responses Assessment/Plan Assessment Summary: DENNYS/Acute Renal Failure, CKD Stage III Problem List: (1) Acute kidney injury ICD Codes: N17.9 - Acute kidney failure, unspecified (2) CHF (congestive heart failure) ICD Codes: I50.9 - Heart failure, unspecified Status: Resolved (3) DM (diabetes mellitus) ICD Codes: E11.9 - Type 2 diabetes mellitus without complications Status: Chronic (4) Peripheral edema ICD Codes: R60.9 - Edema, unspecified Status: Acute (5) Atrial fibrillation ICD Codes: I48.91 - Unspecified atrial fibrillation Status: Chronic (6) Atrial fibrillation with RVR ICD Codes: I48.91 - Unspecified atrial fibrillation Status: Resolved (7) CKD (chronic kidney disease), stage III ICD Codes: N18.3 - Chronic kidney disease, stage 3 (moderate) Status: Chronic Plan He has chronic kidney disease and the baseline Creatinine is close to 1.7-1.8. Most likely has underlying Hypertensive or renovascular disease. K increased again, give Kayexalate. Continue to hold diuretics. Urine out put is adequate. Possibly has ATN causing DENNYS. Creatinine now remain 2.0, possibly now this is his baseline. Not in fluid overload off diuretics. Rajan Hoyt MD Jul 28, 2017 11:49
[2017-07-28 12:00] VITALS: BP 144/85; PULSE 94; RESP 18; TEMP 98.3; O2SAT 97
--- NOTE | 2017-07-28 13:45 | HHI.PR ---
Subjective Remarks Follow-up seizure. No recurrence. Patient seen and evaluated Patient doing well tolerating nasal cannula. No seizures reported by pt. No recurrence of nausea. Patient reported using bedside urinal. Patient stated he has not walked in the past 24 hours as he has not had a therapist to assist him. Patient inquired about kidney status; information/education provided to patient. No new issues reported by patient. Pt denied fever, cough, shortness of breath, vomiting, nausea, diarrhea, abdominal/chest pain. Discussed with nurse Objective Vitals Vital Signs Date Time Temp Pulse Resp B/P (MAP) Pulse Ox O2 Delivery O2 Flow Rate FiO2 07/28/17 12:00 98.3 94 18 144/85 (104) 97 07/28/17 08:10 98 21 07/28/17 08:00 85 07/28/17 08:00 97.8 87 18 121/82 (95) 99 07/28/17 07:00 Room Air 07/28/17 04:00 98.1 84 18 127/81 (96) 99 07/28/17 04:00 Room Air 07/28/17 00:00 97.0 82 18 146/81 (102) 96 07/28/17 00:00 Room Air 07/27/17 20:00 Room Air 07/27/17 20:00 83 07/27/17 20:00 97.4 74 18 128/83 (98) 95 07/27/17 16:00 98.2 82 16 130/82 (98) 98 07/27/17 15:12 07/27/17 15:11 Room Air I/O 07/27/17 07/27/17 07/27/17 07/28/17 07/28/17 07/28/17 07:00 15:00 23:00 07:00 15:00 23:00 Intake Total 480 ml 1080 ml 0 ml Output Total 650 ml 450 ml 300 ml Balance -170 ml 630 ml -300 ml Intake Oral 480 ml 1080 ml IV Total 0 ml Output Urine Total 650 ml 450 ml 300 ml # Bowel Movements 1 1 Result Diagram: 07/28/17 0828 Imaging Last Impressions Chest X-Ray 07/25/17 0000 Signed Impressions: Service Date/Time: July 19:03 - CONCLUSION: No evidence of acute cardiopulmonary disease. Kushal Horta MD Abdomen X-Ray 07/08/17 0000 Signed Impressions: Service Date/Time: Saturday, July 08, 2017 11:20 - CONCLUSION: NG tube as above. Florentino Herrera MD Head CT 06/18/17 0000 Signed Impressions: Service Date/Time: Sunday, June 18, 2017 00:48 - CONCLUSION: Negative exam. No evidence of intracranial hemorrhage. Ronni Capps MD Bone Biopsy CT 06/17/17 0000 Signed Impressions: Service Date/Time: Saturday, June 17, 2017 12:35 - CONCLUSION: Bone marrow aspiration and biopsy complicated by intubation and resuscitation. Pathology is pending. Rell Valentin MD FACR Abdomen Ultrasound 06/16/17 0000 Signed Impressions: Service Date/Time: Friday, June 16, 2017 18:13 - CONCLUSION: Limited sonographic windows due to patient body habitus and bowel gas. Right renal cyst. Visualized portions of the abdomen otherwise within normal limits. Jose Bruno MD Lower Extremity Ultrasound 06/14/17 0000 Signed Impressions: Service Date/Time: Wednesday, June 14, 2017 08:15 - CONCLUSION: Normal examination. Kushal Camacho MD Objective Remarks GENERAL: Pt encountered laying a bed, awake and alert, trach tube capped. NAD. SKIN: Warm and dry. HEAD: Normocephalic. EYES: No scleral icterus. No injection or drainage. NECK: Supple, trachea midline. No lymphadenopathy. CARDIOVASCULAR: Regular rhythm with regular rate without murmurs, gallops, or rubs. Heart sounds distant. RESPIRATORY: Breath sounds equal bilaterally. No wheezes rhonchi or crackles. No accessory muscle use. GASTROINTESTINAL: Abdomen soft, non-tender, nondistended. MUSCULOSKELETAL: No cyanosis, or edema. PSYCHIATRIC: Mood and affect appropriate. Patient did not evidence overt signs of depression and or anxiety. Speech was clear and fluent. Procedures 06/17/17 intubation 06/17/17 CPR 06/17/17 right femoral arterial catheter placement 06/18/17 right IJ central line placement 06/22/17 fiberoptic bronchoscopy 06/24/17 right axillary arterial catheter placement 06/24/17 tracheostomy, bronchoscopy Medications and IVs Current Medications Medications (Trade) Dose Ordered Sig/Ashok Route Start Time Stop Time Status Last Admin (Narcan Inj) 0.4 mg UNSCH PRN IV 06/14/17 04:30 (Tylenol) 650 mg Q6H PRN PO 06/15/17 21:30 06/30/17 20:37 (Peridex 0.12% Liq) 15 ml BID@08,20 MT 06/17/17 20:00 07/24/17 20:00 (NS Flush) 2 ml UNSCH PRN IV FLUSH 06/17/17 14:15 (NS Flush) 2 ml BID IV FLUSH 06/17/17 21:00 07/28/17 08:24 (Tears Naturale Opth Soln) 1 drop TID EACH EYE 06/17/17 18:00 07/28/17 08:25 (Zofran Inj) 4 mg Q6H PRN IV 06/17/17 14:15 07/20/17 18:00 (Albuterol Neb) 2.5 mg Q2HR NEB PRN INH 06/17/17 14:15 07/24/17 08:21 Miscellaneous Information 1 Q361D XX 06/17/17 14:15 (Chlorhexidine 2% Cloth) 3 pack Taper DAILY@04 TOP 06/18/17 04:00 06/14/18 03:59 07/17/17 04:00 (Chlorhexidine 2% Cloth) 3 pack UNSCH PRN TOP 06/17/17 14:15 (Marilee-Colace) 1 tab BID PO 06/17/17 21:00 07/26/17 08:16 (Milk Of Magnesia Liq) 30 ml Q12H PRN PO 06/17/17 14:15 06/21/17 11:21 (Senokot) 17.2 mg Q12H PRN PO 06/17/17 14:15 (Dulcolax Supp) 10 mg DAILY PRN RECTAL 06/17/17 14:15 (Lactulose Liq) 30 ml DAILY PRN PO 06/17/17 14:15 06/21/17 11:21 (Trandate Inj) 10 mg Q1HR PRN IV PUSH 06/18/17 08:45 07/12/17 21:33 (Apresoline Inj) 10 mg Q1HR PRN IV PUSH 06/18/17 08:45 07/13/17 00:43 (Lopressor Inj) 2.5 mg Q6H PRN IV PUSH 06/25/17 15:30 07/08/17 02:24 (Cordarone) 200 mg DAILY NG 06/29/17 11:00 07/28/17 08:23 (Higden 5-325 Mg) 1 tab Q6H PRN PO 06/29/17 18:00 07/21/17 20:06 (Morphine Inj) 2 mg Q3H PRN IV PUSH 06/29/17 18:00 06/29/17 18:12 (Bumex Inj) 1 mg BID@,18 IV PUSH 06/30/17 18:00 Future Hold 07/06/17 18:00 (Levsin Inj) 0.25 mg Q4H PRN IV PUSH 07/10/17 23:00 (Eliquis) 2.5 mg BID NG 07/12/17 21:00 07/28/17 08:24 (Reglan Inj) 5 mg Q8HR PRN IV PUSH 07/12/17 14:30 (Levsin) 0.25 mg Q4H PRN PO 07/14/17 11:00 07/21/17 20:07 Diltiazem HCl 125 mg/Sodium Chloride 125 ml @ 5 mls/hr TITRATE PRN IV 07/17/17 11:00 07/18/17 03:00 (Lopressor) 100 mg Q12H PO 07/18/17 18:00 07/28/17 06:08 (Topamax) 100 mg BID PO 07/26/17 21:00 07/28/17 08:24 (Protonix) 40 mg DAILY PO 07/27/17 09:00 07/28/17 08:23 Urinary Catheter: No A/P Problem List: (1) Hypotension ICD Code: I95.9 - Hypotension, unspecified Status: Resolved (2) Symptomatic bradycardia ICD Code: R00.1 - Bradycardia, unspecified Status: Resolved (3) CKD (chronic kidney disease), stage III ICD Code: N18.3 - Chronic kidney disease, stage 3 (moderate) Status: Chronic (4) Chronic systolic CHF (congestive heart failure) ICD Code: I50.22 - Chronic systolic (congestive) heart failure Status: Chronic (5) Atrial fibrillation ICD Code: I48.91 - Unspecified atrial fibrillation Status: Chronic (6) Acute worsening of stage 3 chronic kidney disease ICD Code: N18.3 - Chronic kidney disease, stage 3 (moderate) Status: Acute (7) Thrombocytopenia ICD Code: D69.6 - Thrombocytopenia, unspecified Status: Chronic Assessment and Plan In summary this is a 57-year-old male with complex comorbidities including ischemic heart disease, cardiomyopathy, chronic kidney disease, atrial fibrillation, status post cardiogenic shock and PEA cardiac arrest. Patient has had a prolonged ICU course. He has a trach. He is improving. Continue rehabilitation efforts. He is pending placement at a senior living facility. Seizures: Patient seen by neurology. Topiramate 100 mg twice a day. Patient has been seizure-free since event of 07/24/17. Acute kidney injury: Creatinine 2.04. Estimated GFR 41. Patient evidencing improved function. Hypertension: Controlled with metoprolol 100 mg every 12 hours. 1. Cardiogenic shock status post PEA cardiac arrest. Clinically stable currently. Patient was followed by cardiology. - EF less than 20%. Continue beta obdulio. FABRICE inhibitor on hold secondary to acute kidney injury 2. Chronic systolic congestive heart failure: Improved 3. Atrial fibrillation: Rate controlled Continue Eliquis at a lower dose 2.5 mg twice a day given renal failure. Continue amiodarone, metoprolol. 4. Respiratory failure: Trached after bone marrow biopsy. Acute hypoxic respiratory failure: Status post mechanical ventilation. Tolerating capped trach. Continue bronchodilators, supplemental oxygen. Trach management per pulmonology, to dc trach 07/29/17. - Levsin as needed for secretions. 5. Acute kidney injury superimposed on chronic kidney disease, stage III: BUN and creatinine fluctuating. Avoid nephrotoxic medications. Appreciate nephrology recommendations. Continue to follow renal functions. Further plans per nephrology. 6. Seizure disorder: Abnormal EEG. Per neurology increase Topamax to 100 mg twice a day and follow up level and EEG outpatient. 7. Thrombocytopenia: The patient was seen by hematology. Status post bone marrow biopsy. 07/24 Bone marrow biopsy shows mildly hypercellular marrow with mild megakaryocyte and myeloid hyperplasia. 8. Morbid obesity: acute mild protein energy malnutrition: He is eating better. Continue diet per speech as tolerated. 8. HCAP/aspiration pneumonia: Sputum culture 06/20 growing Enterobacter. Completed course of cefepime, Flagyl. Now off antibiotics and without any signs of infection. 9. GI prophylaxis: Protonix. 10. syncope: Vasovagal vs seizure episode. Check orthostatic BP discussed with RN. Case discussed with patient, RN and Dr. Zarate Problem Qualifiers (1) Hypotension: Clayton Mccarty Jr. Jul 28, 2017 13:44
[2017-07-28 16:00] VITALS: BP 130/96; PULSE 81; RESP 18; TEMP 97.4; O2SAT 96
--- NOTE | 2017-07-29 12:22 | RSPPFT ---
DATE OF PROCEDURE: 07/26/17 COMMENTS: Spirometry demonstrates an FEV1 of 1.8 at 53% of predicted, FVC of 2.3 at 54%, FEF 25-75 is 47%. Spirometry is suggestive of obstructive disease. Post-bronchodilator study demonstrated no significant change. Flow volume loops are also suggestive of an obstructive defect. IMPRESSION: 1. Moderate obstructive airways disease. 2. No significant change following use of bronchodilator.
== END 2017-07-28 18:47 | DRG 4 ==
LOC: NEPC 02:59 → NEDA 04:25 → OBSVTOIN 04:55 → HCVR 06:43 → HCIN 06-15 04:57 → N04A 06-15 14:06 → N03B 06-17 13:21 → HCIS 07-11 23:28 → N04A 07-24 17:42
PROVIDERS: ADMIT Internal Medicine; ATTEND Internal Medicine
PROC: 5A09457 Assistance with Respiratory Ventilation, 24-96 Consecutive Hours, Continuous Positive Airway Pressure (ICD-10-PCS; 2017-06-14)
PROC: 5A1955Z Respiratory Ventilation, Greater than 96 Consecutive Hours (ICD-10-PCS; 2017-06-17)
PROC: 04HY32Z Insertion of Monitoring Device into Lower Artery, Percutaneous Approach (ICD-10-PCS; 2017-06-17)
PROC: 0BH17EZ Insertion of Endotracheal Airway into Trachea, Via Natural or Artificial Opening (ICD-10-PCS; 2017-06-17)
PROC: 07DR3ZX Extraction of Iliac Bone Marrow, Percutaneous Approach, Diagnostic (ICD-10-PCS; 2017-06-17)
PROC: 5A12012 Performance of Cardiac Output, Single, Manual (ICD-10-PCS; 2017-06-17)
PROC: 02HV33Z Insertion of Infusion Device into Superior Vena Cava, Percutaneous Approach (ICD-10-PCS; 2017-06-18)
PROC: B543ZZA Ultrasonography of Right Jugular Veins, Guidance (ICD-10-PCS; 2017-06-18)
PROC: 0B9J8ZX Drainage of Left Lower Lung Lobe, Via Natural or Artificial Opening Endoscopic, Diagnostic (ICD-10-PCS; 2017-06-22)
PROC: 0BC78ZZ Extirpation of Matter from Left Main Bronchus, Via Natural or Artificial Opening Endoscopic (ICD-10-PCS; 2017-06-22)
PROC: 04HY32Z Insertion of Monitoring Device into Lower Artery, Percutaneous Approach (ICD-10-PCS; 2017-06-24)
PROC: 0BJ08ZZ Inspection of Tracheobronchial Tree, Via Natural or Artificial Opening Endoscopic (ICD-10-PCS; 2017-06-24)
PROC: 5A12012 Performance of Cardiac Output, Single, Manual (ICD-10-PCS; 2017-06-24)
PROC: 0B113F4 Bypass Trachea to Cutaneous with Tracheostomy Device, Percutaneous Approach (ICD-10-PCS; principal; 2017-06-24 13:22)
DX: N17.9 Acute kidney failure, unspecified (principal); J69.0 Pneumonitis due to inhalation of food and vomit; I50.23 Acute on chronic systolic (congestive) heart failure; D69.3 Immune thrombocytopenic purpura; J96.21 Acute and chronic respiratory failure with hypoxia; I42.0 Dilated cardiomyopathy; I95.9 Hypotension, unspecified; E44.1 Mild protein-calorie malnutrition; I13.0 Hypertensive heart and chronic kidney disease with heart failure and stage 1 through stage 4 chronic kidney disease, or unspecified chronic kidney disease; E11.22 Type 2 diabetes mellitus with diabetic chronic kidney disease; I27.2 Other secondary pulmonary hypertension; I46.9 Cardiac arrest, cause unspecified; Z68.43 Body mass index [BMI] 50.0-59.9, adult; I48.1 Persistent atrial fibrillation; R00.1 Bradycardia, unspecified; E86.0 Dehydration; E66.01 Morbid (severe) obesity due to excess calories; I48.91 Unspecified atrial fibrillation; G40.909 Epilepsy, unspecified, not intractable, without status epilepticus; I25.10 Atherosclerotic heart disease of native coronary artery without angina pectoris; K05.6 Periodontal disease, unspecified; I87.2 Venous insufficiency (chronic) (peripheral); D64.9 Anemia, unspecified; I48.2 Chronic atrial fibrillation; N28.1 Cyst of kidney, acquired; G47.33 Obstructive sleep apnea (adult) (pediatric); I08.1 Rheumatic disorders of both mitral and tricuspid valves; J98.09 Other diseases of bronchus, not elsewhere classified; E87.5 Hyperkalemia; N17.0 Acute kidney failure with tubular necrosis; N18.3 Chronic kidney disease, stage 3 (moderate); I49.3 Ventricular premature depolarization; R13.10 Dysphagia, unspecified; R00.0 Tachycardia, unspecified; R55 Syncope and collapse; Z79.01 Long term (current) use of anticoagulants; Z80.6 Family history of leukemia; Z82.49 Family history of ischemic heart disease and other diseases of the circulatory system; Z83.3 Family history of diabetes mellitus; Z91.19 Patient's noncompliance with other medical treatment and regimen
CPT/HCPCS: 31500; 31624; 36556; 38221; 70450; 71010; 74000; 76700; 76937; 77012; 80048; 80053; 80162; 80201; 81001; 82150; 82550; 82607; 82728; 82805; 82948; 83605; 83615; 83690; 83735; 83880; 84100; 84132; 84134; 84443; 84484; 85007; 85025; 85027; 85097; 85384; 85610; 85730; 87015; 87070; 87077; 87102; 87116; 87186; 87205; 87206; 88112; 88184; 88185; 88237; 88264; 88280; 88305; 88311; 88313; 89051; 92950; 93005; 93306; 93971; 94002; 94003; 94060; 94640; 94664; 95819; 96374; 99152; 99153; A7521; C1830; C9113; G8987-GP; G8988-GP; J0171; J0282; J0330; J0360; J0461; J0692; J1100; J1160; J1644; J1650; J1980; J2212; J2250; J2270; J2310; J2370; J2405; J2765; J2920; J3010; J7030; J7040; J7050; J7060; J7608; J7613; P9047

== ENCOUNTER 2017-11-14 21:21 | Inpatient (IN) | payer OTHER, MEDICAID, MEDICARE ==
[~2017-11-14] VITALS: Ht 175.3 cm; Wt 138.7 kg
[~2017-11-14 21:21] MED LIST changes: +ALBU0.08 INH; +APIX2.5T NG; -APIX5TAB PO; -ASPI81TA11 PO; -BUME1TAB PO; -DILT-48 PO; -ENAL20TA PO; -IPRA0.02 NEB; +METO-338 PO; -METO100T PO; +PANT40TA3 PO; -TOPA100T11 PO; +TOPI100 PO
[2017-11-14 21:32] VITALS: BP 137/108; PULSE 134; RESP 16; TEMP 98.4; O2SAT 97
[2017-11-14] MEDS ORDERED: ATOR80TA45 PO (21:39)
[2017-11-14] MEDS ORDERED: APIX5TAB PO (21:39)
[2017-11-14] MEDS ORDERED: TOPI200 PO (21:39)
[2017-11-14] MEDS ORDERED: SODIUM CHLORIDE 0.9% FLUSH 10 ML FLUSH IVF PRN (21:45)
[2017-11-14] MEDS ORDERED: ASPIRIN 325 MG TAB PO ONE (21:45)
[2017-11-14] MEDS ORDERED: DILTIAZEM HCL 25 MG/5 ML VIAL IV PUSH ONE (21:45)
--- NOTE | 2017-11-14 21:55 | PD ---
HPI Chief Complaint: Edema Time Seen by Provider: 21:34 Travel History International Travel<30 days: No Contact w/Intl Traveler<30days: No Traveled to known affect area: No History of Present Illness HPI 57-year-old male that presents to the ED via ambulance for evaluation of shortness of breath with exertion as well as leg swelling and elevated heart rate. Per patient has a history of A. fib as well as CHF. Per patient she's been compliant with his medications but he for the past 3 days has been having the symptoms. Per patient if he sits or lays he has no shortness of breath only when he ambulates. He denies taking any diuretics. He denies any chest pain. Denies any abdominal pain. No Nausea or vomiting. He states having some productive cough. No sick contacts. No recent travel. No urinary or bowel movement issues. States compliance with his medications for blood pressure and his A. fib. He does take liquids for his A. fib. He follows with Dr. Mccormack for cardiology. He denies any injuries. Per patient the swelling on his legs started around the same time. Has not seen anybody for this. PFSH Past Medical History Hx Anticoagulant Therapy: Yes (ELOQUIS) Atrial Fibrillation: Yes Blood Disorders: No Anxiety: No Depression: No Heart Rhythm Problems: Yes Cancer: No Cardiac Catheterization: Yes (2016) Cardiovascular Problems: Yes High Cholesterol: Yes Chemotherapy: No Chest Pain: Yes Congestive Heart Failure: Yes COPD: No Diabetes: No Diminished Hearing: No Endocrine: No GERD: Yes Genitourinary: No Hypertension: Yes Immune Disorder: No Musculoskeletal: No Neurologic: Yes (EPILEPSY) Psychiatric: No Reproductive: No Respiratory: Yes Myocardial Infarction: Yes Radiation Therapy: No Seizures: Yes Sleep Apnea: Yes Influenza Vaccination: Yes Past Surgical History Other Surgery: No Family History Family Myocardial Infarction: Yes Social History Alcohol Use: No Tobacco Use: No Substance Use: No Allergies-Medications (Allergen,Severity, Reaction): Coded Allergies: castor oil (Unverified Allergy, Unknown, THROW UP, 11/14/17) Reported Meds & Prescriptions Reported Meds & Active Scripts Active Pantoprazole (Pantoprazole Sodium) 40 Mg Tab 40 Mg PO DAILY Lopressor (Metoprolol Tartrate) 100 Mg Tab 100 Mg PO Q12H Amiodarone (Amiodarone HCl) 200 Mg Tab 200 Mg PO DAILY Reported Atorvastatin (Atorvastatin Calcium) 80 Mg Tab 80 Mg PO HS Topamax (Topiramate) 200 Mg Tab 200 Mg PO DAILY Eliquis (Apixaban) 5 Mg Tab 5 Mg PO BID Review of Systems Except as stated in HPI: all other systems reviewed are Neg Physical Exam Narrative GENERAL: SKIN: Warm and dry. HEAD: Atraumatic. Normocephalic. EYES: Pupils equal and round. No scleral icterus. No injection or drainage. ENT: No nasal bleeding or discharge. Mucous membranes pink and moist. Tongue is midline. No uvula deviation. NECK: Trachea midline. No JVD. CARDIOVASCULAR: Irregular rate and rhythm. No signs of acute ischemia or arrhythmia. RESPIRATORY: No accessory muscle use. Diminished breath sounds. Breath sounds equal bilaterally. GASTROINTESTINAL: Abdomen soft, non-tender, nondistended. Hepatic and splenic margins not palpable. MUSCULOSKELETAL: Extremities without clubbing, cyanosis, or edema. No obvious deformities. Full range of motion of the upper and lower extremities bilaterally. 2+ pulses bilaterally. Patient has 1+ pitting edema in the lower legs. NEUROLOGICAL: Awake and alert. No obvious cranial nerve deficits. Motor grossly within normal limits. Five out of 5 muscle strength in the arms and legs. Normal speech. PSYCHIATRIC: Appropriate mood and affect; insight and judgment normal. Data Data Last Documented VS Vital Signs Date Time Temp Pulse Resp B/P (MAP) Pulse Ox O2 Delivery O2 Flow Rate FiO2 11/14/17 22:24 62 16 112/59 (76) 98 Room Air 11/14/17 21:32 98.4 Orders Orders Electrocardiogram (11/14/17 21:36) Ckmb (Isoenzyme) Profile (11/14/17 21:36) Complete Blood Count With Diff (11/14/17 21:36) Comprehensive Metabolic Panel (11/14/17 21:36) Magnesium (Mg) (11/14/17 21:36) Prothrombin Time / Inr (Pt) (11/14/17 21:36) Act Partial Throm Time (Ptt) (11/14/17 21:36) Troponin I (11/14/17 21:36) Chest, Single Ap (11/14/17 21:36) Ecg Monitoring (11/14/17 21:36) Bilateral Bp Monitoring (11/14/17 21:36) Iv Access Insert/Monitor (11/14/17 21:36) Oximetry (11/14/17 21:36) Oxygen Administration (11/14/17 21:36) Aspirin (Aspirin) (11/14/17 21:45) Sodium Chloride 0.9% Flush (Ns Flush) (11/14/17 21:45) Diltiazem Inj (Cardizem Inj) (11/14/17 21:45) Influenzae A/B Antigen (11/14/17 21:50) Furosemide Inj (Lasix Inj) (11/14/17 22:00) Labetalol Inj (Trandate Inj) (11/14/17 22:15) Electrocardiogram (11/14/17 ) Ondansetron Inj (Zofran Inj) (11/14/17 22:45) Labs Laboratory Tests Test 11/14/17 22:04 White Blood Count 4.8 TH/MM3 Red Blood Count 3.98 MIL/MM3 Hemoglobin 11.7 GM/DL Hematocrit 36.6 % Mean Corpuscular Volume 92.0 FL Mean Corpuscular Hemoglobin 29.3 PG Mean Corpuscular Hemoglobin Concent 31.9 % Red Cell Distribution Width 14.6 % Platelet Count 83 TH/MM3 Mean Platelet Volume 12.1 FL Neutrophils (%) (Auto) 61.5 % Lymphocytes (%) (Auto) 21.1 % Monocytes (%) (Auto) 14.0 % Eosinophils (%) (Auto) 2.5 % Basophils (%) (Auto) 0.9 % Neutrophils # (Auto) 3.0 TH/MM3 Lymphocytes # (Auto) 1.0 TH/MM3 Monocytes # (Auto) 0.7 TH/MM3 Eosinophils # (Auto) 0.1 TH/MM3 Basophils # (Auto) 0.0 TH/MM3 CBC Comment AUTO DIFF MDM Medical Decision Making Medical Screen Exam Complete: Yes Emergency Medical Condition: Yes Medical Record Reviewed: Yes Differential Diagnosis atrial fibrillation vs CHF vs fluid overload vs CKD vs atrial fibrillation in RVR vs NSTEMI vs pneumonia Narrative Course 57 yo male here for SOB with exertion and leg swelling. Patient properly examined. Labs and imaging ordered. My attending Dr Wells evaluated the patient himself with me and agrees with plan. Patient given cardizem bolus dose with minimal response. HR still in RVR in 140s. Case discussed with attending who recommends 10 mg of labetolol. patient responded well and HR now in the 60s- 70s. BP did come down. Labs and imaging still pending at the writing of this note. Case will be signed out to my attending pending dispo. Cameron Agosto Nov 14, 2017 21:55
[2017-11-14 21:57] VITALS: BP 137/108; PULSE 140; RESP 16; O2SAT 98
[2017-11-14 21:58] VITALS: BP 171/99; PULSE 140; RESP 16; O2SAT 98
--- NOTE | 2017-11-14 21:58 | RADRPT ---
EXAM DATE/TIME: 11/14/2017 21:41 [facility] COMPARISON: CHEST SINGLE AP, July 25, 2017, 19:03. INDICATIONS : Chest pain, shortness of breath MEDICAL HISTORY : A-fib. Hypercholesterolemia. Hypertension. Congestive heart failure SURGICAL HISTORY : None. ENCOUNTER: Initial ACUITY: 2 weeks PAIN SCORE: 0/10 LOCATION: Bilateral chest FINDINGS: Mild haziness of both lungs. No large effusion seen. No pneumothorax. There is mild cardiomegaly. CONCLUSION: Suspected early/mild failure. No confluent infiltrates seen. Kushal Horta MD on November 14, 2017 at 21:54 Board Certified Radiologist. This report was verified electronically.
[2017-11-14] MEDS ORDERED: FUROSEMIDE 40 MG/4 ML VIAL IV PUSH ONE (22:00)
[2017-11-14] MEDS ORDERED: LABETALOL HCL 100 MG/20 ML VIAL IV PUSH ONE (22:15)
[2017-11-14 22:24] VITALS: BP 112/59; PULSE 62; RESP 16; O2SAT 98
[2017-11-14 22:34] LABS: BASOPHIL % 0.9 % (0.0-2.0); EOSINOPHIL # 0.1 TH/MM3 (0-0.4); EOSINOPHIL % 2.5 % (0.0-4.0); HEMATOCRIT 36.6 % (39.0-51.0); HEMOGLOBIN 11.7 GM/DL (13.0-17.0); LYMPH % 21.1 % (9.0-44.0); MEAN CORPUSCULAR HEMOGLOBIN 29.3 PG (27.0-34.0); MEAN CORPUSCULAR HGB CONC 31.9 % (32.0-36.0); MEAN PLATELET VOLUME 12.1 FL (7.0-11.0); MONOCYTE # 0.7 TH/MM3 (0-0.9); NEUT % 61.5 % (16.0-70.0); PLATELET COUNT 83 TH/MM3 (150-450); RED BLOOD COUNT 3.98 MIL/MM3 (4.50-5.90); RED CELL DISTRIBUTION WIDTH 14.6 % (11.6-17.2); WHITE BLOOD COUNT 4.8 TH/MM3 (4.0-11.0)
[2017-11-14] MEDS ORDERED: ONDANSETRON HCL 4 MG/2 ML VIAL IV PUSH ONE (22:45)
[2017-11-14 22:58] LABS: ALKALINE PHOSPHATASE 102 U/L (45-117); ALT (GPT) 21 U/L (12-78); TOTAL BILIRUBIN ADULT 0.8 MG/DL (0.2-1.0); TOTAL PROTEIN 6.6 GM/DL (6.4-8.2); TROPONIN I 0.02 NG/ML (0.02-0.05)
[2017-11-14 23:01] LABS: OVALOCYTES 1+ (NORMAL)
[2017-11-14 23:03] LABS: INTERNATIONAL NORMALIZED RATIO 1.2 RATIO
[2017-11-14 23:08] LABS: ALBUMIN 3.3 GM/DL (3.4-5.0); AST (GOT) 18 U/L (15-37); BICARBONATE 23.5 MEQ/L (21.0-32.0); BLOOD UREA NITROGEN 23 MG/DL (7-18); CALCIUM 8.4 MG/DL (8.5-10.1); CHLORIDE 109 MEQ/L (98-107); CREATININE 1.92 MG/DL (0.60-1.30); GLOMERULAR FILTRATION RATE 44 ML/MIN (>89); GLUCOSE,RANDOM 86 MG/DL (74-106); MAGNESIUM 1.8 MG/DL (1.5-2.5); SODIUM (NA) 143 MEQ/L (136-145)
[2017-11-14 23:17] VITALS: BP 107/78; PULSE 67; RESP 18; O2SAT 98
[2017-11-15] VITALS (11 sets, daily range): BP systolic 92–143; BP diastolic 65–92; PULSE 55–122; RESP 15–19; TEMP 97.4–98.3; O2SAT 95–98
[2017-11-15] MEDS ORDERED: SODIUM CHLORIDE 0.9% FLUSH 10 ML FLUSH IV FLUSH PRN (00:15)
[2017-11-15] MEDS ORDERED: NALOXONE HCL 0.4 MG/ML AMP IV PUSH PRN (00:15)
--- NOTE | 2017-11-15 04:44 | HHI.HP ---
HPI Service [facility] Primary Care Physician Roxi Gonzales MD Admission Diagnosis Atrial Fibrillation w/ RR, CHF Diagnoses: Travel History International Travel<30 Days: No Contact w/Intl Traveler <30 Da: No Traveled to Known Affected Are: No History of Present Illness History of patient, ER physician communication, and review of medical records. Patient is known to me from his prior hospitalization on June 14, 2017. He is somewhat of a poor historian. His hospital course during that admission was quite complicated and prolonged. He was discharged on July 28, 2017. Chart reviewed. Patient reports that he has been home since about August 2017 after discharge from rehabilitation facility. He states he came to hospital today because he has been having swelling in his legs, and shortness of breath on exertion whenever he walks. He states this has been going on for about a week. He isn't sure whether he had fever. He was however noted to be congested with cough, sniffling throughout the interview. He denies any fevers at home. He denies any chest pains. However reports that he felt as if his heart is racing at night time. Patient arrived to emergency room by ambulance. However when asked about this, he stated he called ambulance only because he knew he was getting sick and he did not have transportation. Not necessarily because he was in acute distress. In the emergency room, upon initial arrival, patient was noted to be in A. fib with fast ventricular rate. He was given Cardizem 40 mg IV push, followed by labetalol 10 mg IV. After this , his heart rate was well-controlled. Review of Systems Except as stated in HPI: all other systems reviewed are Neg Past Family Social History Past Medical History HTN Atrial fibrillation Chronic systolic congestive heart failure History of respiratory failure requiring intubation and tracheostomy tube placement. Removed on July 25, 2017. History of cardiogenic shock with PEA cardiac arrest in last admission June Chronic kidney disease stage III Seizure disorder Thrombocytopenia. Was followed up by java sdet and had bone marrow biopsy on July 24, 2017. Morbid obesity Obstructive sleep apnea. Was told he needs C Pap but has not been able to arrange it. Past Surgical History Coronary angiogram. Tracheostomy Allergies: Coded Allergies: castor oil (Unverified Allergy, Unknown, THROW UP, 11/14/17) Family History brother- dm dad- [place] Social History never smoked no etoh abuse no drugs live on his own Physical Exam Vital Signs Vital Signs Date Time Temp Pulse Resp B/P (MAP) Pulse Ox O2 Delivery O2 Flow Rate FiO2 11/15/17 04:10 97 16 131/67 (88) 98 Room Air 11/15/17 01:06 78 18 92/65 (74) 98 Room Air 11/14/17 23:17 67 18 107/78 (88) 98 Room Air 11/14/17 22:24 62 16 112/59 (76) 98 Room Air 11/14/17 21:58 140 16 171/99 (123) 98 Room Air 11/14/17 21:57 140 16 137/108 (118) 98 Room Air 11/14/17 21:40 97 Room Air 11/14/17 21:32 98.4 134 16 137/108 (118) 97 Physical Exam GENERAL: This is a morbidly obese patient, lying in bed. In no apparent distress. SKIN: No rashes, ecchymoses or lesions. Cool and dry. HEAD: Atraumatic. Normocephalic. No temporal or scalp tenderness. EYES: No scleral icterus. No injection or drainage. ENT: Nose without bleeding, purulent drainage or septal hematoma. Poor dentition. NECK: Trachea midline. No JVD Supple, nontender, no meningeal signs. CARDIOVASCULAR: Regular rate and rhythm without murmurs, gallops, or rubs. RESPIRATORY: Bilateral basilar crepitations at the bases. No elizabeth rales. GASTROINTESTINAL: Abdomen soft, non-tender, nondistended obese.. No guarding. MUSCULOSKELETAL: Extremities without clubbing, cyanosis, or edemaNo calf tenderness. Bilateral lower extremities obese. No calf asymmetry. Left lower extremity with venous stasis discoloration. NEUROLOGICAL: Awake and alert. Motor and sensory grossly within normal limits. Normal speech. Laboratory Laboratory Tests Test 11/14/17 22:04 11/15/17 03:43 White Blood Count 4.8 Red Blood Count 3.98 Hemoglobin 11.7 Hematocrit 36.6 Mean Corpuscular Volume 92.0 Mean Corpuscular Hemoglobin 29.3 Mean Corpuscular Hemoglobin Concent 31.9 Red Cell Distribution Width 14.6 Platelet Count 83 Mean Platelet Volume 12.1 Neutrophils (%) (Auto) 61.5 Lymphocytes (%) (Auto) 21.1 Monocytes (%) (Auto) 14.0 Eosinophils (%) (Auto) 2.5 Basophils (%) (Auto) 0.9 Neutrophils # (Auto) 3.0 Lymphocytes # (Auto) 1.0 Monocytes # (Auto) 0.7 Eosinophils # (Auto) 0.1 Basophils # (Auto) 0.0 CBC Comment AUTO DIFF Differential Comment AUTO DIFF CONFIRMED Platelet Estimate LOW Platelet Morphology Comment ENLARGED Ovalocytes 1+ Prothrombin Time 12.0 Prothromb Time International Ratio 1.2 Activated Partial Thromboplast Time 28.2 Blood Urea Nitrogen 23 Creatinine 1.92 Random Glucose 86 Total Protein 6.6 Albumin 3.3 Calcium Level 8.4 Magnesium Level 1.8 Alkaline Phosphatase 102 Aspartate Amino Transf (AST/SGOT) 18 Alanine Aminotransferase (ALT/SGPT) 21 Total Bilirubin 0.8 Sodium Level 143 Potassium Level 4.3 Chloride Level 109 Carbon Dioxide Level 23.5 Anion Gap 11 Estimat Glomerular Filtration Rate 44 Total Creatine Kinase 151 Creatine Kinase MB 1.5 Troponin I 0.02 Date/Time Source Procedure Growth Status 11/14/17 22:04 Nasal Washing Influenza Types A,B Antigen (MELVIN) - Final NEGATIVE FOR FLU A AND B ANTIGEN.... Complete Result Diagram: 11/14/17220311/14/172203 Imaging Last 48 hours Impressions Chest X-Ray 11/14/172135 Signed Impressions: Service Date/Time: November 21:41 - CONCLUSION: Suspected early/mild failure. No confluent infiltrates seen. Kushal Horta MD Caprini VTE Risk Assessment Caprini VTE Risk Assessment: Mod/High Risk (score >= 2) Caprini Risk Assessment Model Point Value = 1 Point Value = 2 Point Value = 3 Point Value = 5 Age 41-60 Minor surgery BMI > 25 kg/m2 Swollen legs Varicose veins or History of unexplained or recurrent spontaneous Oral contraceptives or hormone replacement Sepsis (< 1 month) Serious lung disease, including pneumonia (< 1 month) Abnormal pulmonary function Acute myocardial infarction Congestive heart failure (< 1 month) History of inflammatory bowel disease Medical patient at bed rest Age 61-74 Arthroscopic surgery Major open surgery (> 45 min) Laparoscopic surgery (> 45 min) Malignancy Confined to bed (> 72 hours) Immobilizing plaster cast Central venous access Age >= 75 History of VTE Family history of VTE Factor V Leiden Prothrombin [id number] Lupus anticoagulant Anticardiolipin antibodies Elevated serum homocysteine Heparin-induced thrombocytopenia Other congenital or acquired thrombophilia Stroke (< 1 month) Elective arthroplasty Hip, pelvis, or leg fracture Acute spinal cord injury (< 1 month) Prophylaxis Regimen Total Risk Factor Score Risk Level Prophylaxis Regimen 0-1 Low Early ambulation 2 Moderate Order ONE of the following: *Sequential Compression Device (SCD) *Heparin 5000 units SQ BID 3-4 Higher Order ONE of the following medications: *Heparin 5000 units SQ TID *Enoxaparin/Lovenox 40 mg SQ daily (WT < 150 kg, CrCl > 30 mL/min) *Enoxaparin/Lovenox 30 mg SQ daily (WT < 150 kg, CrCl > 10-29 mL/min) *Enoxaparin/Lovenox 30 mg SQ BID (WT < 150 kg, CrCl > 30 mL/min) AND/OR *Sequential Compression Device (SCD) 5 or more Highest Order ONE of the following medications: *Heparin 5000 units SQ TID (Preferred with Epidurals) *Enoxaparin/Lovenox 40 mg SQ daily (WT < 150 kg, CrCl > 30 mL/min) *Enoxaparin/Lovenox 30 mg SQ daily (WT < 150 kg, CrCl > 10-29 mL/min) *Enoxaparin/Lovenox 30 mg SQ BID (WT < 150 kg, CrCl > 30 mL/min) AND *Sequential Compression Device (SCD) Assessment and Plan Assessment and Plan Impression: Acute on chronic systolic heart failure. Symptomatic. Chest x-ray revealing mild pulmonary edema. A. fib with fast heart rate. Now controlled. Received Cardizem 40 mg IV in ER followed by labetalol 10 mg IV. Upper respiratory symptoms. Viral illness. Possible will progress to bacterial pneumonia. HTN Atrial fibrillation Chronic systolic congestive heart failure History of respiratory failure requiring intubation and tracheostomy tube placement. Removed on July 25, 2017. History of cardiogenic shock with PEA cardiac arrest in last admission June Chronic kidney disease stage III Seizure disorder Thrombocytopenia. Was followed up by java sdet and had bone marrow biopsy on July 24, 2017. Morbid obesity Obstructive sleep apnea. Was told he needs C Pap but has not been able to arrange it. Plan: Serial cardiac enzymes and EKGs. Resume amiodarone. Resume metoprolol. Statin. Resume anticoagulation with apixaban Resume rest of his home medications. Lasix 20 g IV every 12 hours. For some reason, patient's home meds did not include Lasix. This may be the reason why he had worsening of CHF. Patient's influenza is negative. For now, with his upper respiratory symptoms, we would just monitor. Likely this is viral. PT evaluation. DVT prophylaxis with apixaban GI prophylaxis on pantoprazole. Discussed Condition With Patient, ER physician, nursing staff Haile Peñaloza MD Nov 15, 2017 04:44
[2017-11-15 04:47] LABS: TROPONIN I 0.02 NG/ML (0.02-0.05)
[2017-11-15] MEDS ORDERED: PANTOPRAZOLE SOD 40 MG DELAYED RELEASE TAB PO SCH (09:00)
[2017-11-15] MEDS ORDERED: FUROSEMIDE 20 MG/2 ML VIAL IV PUSH SCH (09:00)
--- NOTE | 2017-11-15 09:48 | HHI.PR ---
Subjective Remarks Follow up for afib w/RVR, CHF exacerbation. The patient reports feeling slightly better today after receiving IV Lasix last night. He was able to ambulate without much difficulty this morning. Denies any shortness of breath at rest. O2 sat stable on room air. He reports continued leg swelling. He denies ever having any chest pain. He reports recent weight gain. He states he was never given any lasix prescription. He believes he last saw his corn cooker Dr. Mccormack in September. He says they discussed AICD however it was recommended for him to have dental extractions. Patient states he does not have any money for dental extractions. He also reports he has sleep apnea and never received a CPAP. He follows with Dr. Leigh. Objective Vitals Vital Signs Date Time Temp Pulse Resp B/P (MAP) Pulse Ox O2 Delivery O2 Flow Rate FiO2 11/15/17 08:00 Room Air 11/15/17 07:59 98.3 122 19 136/92 (107) 96 Room Air 11/15/17 04:10 97 16 131/67 (88) 98 Room Air 11/15/17 01:06 78 18 92/65 (74) 98 Room Air 11/14/17 23:17 67 18 107/78 (88) 98 Room Air 11/14/17 22:24 62 16 112/59 (76) 98 Room Air 11/14/17 21:58 140 16 171/99 (123) 98 Room Air 11/14/17 21:57 140 16 137/108 (118) 98 Room Air 11/14/17 21:40 97 Room Air 11/14/17 21:32 98.4 134 16 137/108 (118) 97 I/O 11/14/17 11/14/17 11/14/17 11/15/17 11/15/17 11/15/17 07:00 15:00 23:00 07:00 15:00 23:00 Output Total 350 ml Balance -350 ml Output Urine Total 350 ml Result Diagram: 11/14/17220311/14/172203 Imaging Last Impressions Chest X-Ray 11/14/172135 Signed Impressions: Service Date/Time: November 21:41 - CONCLUSION: Suspected early/mild failure. No confluent infiltrates seen. Kushal Horta MD Objective Remarks GENERAL: Well-nourished, well-developed pleasant morbidly obese male patient in NAD. SKIN: Warm and dry. No rash. HEENT: Normocephalic. Atraumatic.Pupils equal and round. Mucous membranes pink and moist. NECK: Supple. Trachea midline. CARDIOVASCULAR: Tachycardic Irregularly irregular rate and rhythm. S1, S2 noted. No murmur appreciated. RESPIRATORY: No accessory muscle use. Clear to auscultation. Breath sounds equal bilaterally. GASTROINTESTINAL: Abdomen soft, non-tender, nondistended. Normoactive bowel sounds x4. MUSCULOSKELETAL: No obvious deformities. 3+ BLE pitting edema. NEUROLOGICAL: Awake and alert. No obvious cranial nerve deficits. Motor grossly within normal limits. Normal speech. PSYCHIATRIC: Appropriate mood and affect; insight and judgment normal. Medications and IVs Current Medications Medications (Trade) Dose Ordered Sig/Ashok Route Start Time Stop Time Status Last Admin (NS Flush) 2 ml UNSCH PRN IV FLUSH 11/15/17 00:15 (NS Flush) 2 ml BID IV FLUSH 11/15/17 09:00 (Narcan Inj) 0.4 mg UNSCH PRN IV PUSH 11/15/17 00:15 (Cordarone) 200 mg DAILY PO 11/15/17 09:00 (Eliquis) 5 mg BID PO 11/15/17 09:00 (Lipitor) 80 mg HS PO 11/15/17 21:00 (Lopressor) 100 mg Q12H PO 11/15/17 09:00 (Protonix) 40 mg DAILY PO 11/15/17 09:00 (Topamax) 200 mg DAILY PO 11/15/17 09:00 (Lasix Inj) 20 mg BID@18 IV PUSH 11/15/17 09:00 A/P Problem List: (1) Atrial fibrillation with RVR ICD Code: I48.91 - Unspecified atrial fibrillation Status: Resolved (2) Acute on chronic systolic heart failure ICD Code: I50.23 - Acute on chronic systolic (congestive) heart failure Status: Acute Assessment and Plan 57-year-old male with history of CHF EF 20% on echo , atrial fibrillation on Eliquis, CKD stage III, HTN, morbid obesity, CHINO, seizure disorder, presents with 1 week history of worsening shortness of breath and lower extremity edema. Of note, patient had recent hospitalization 8/11/17-, cardiogenic shock with PEA cardiac arrest with respiratory failure requiring intubation, trach placement/removal. Acute Exacerbation of Chronic Systolic CHF: Last echo 06/14/17 showed EF 20%, mild-mod MR, mod TR, mod pulmonary hypertension. -CXR images reviewed, shows suspected mild failure -Check BNP -No need for repeat echo per cardiology (most recent 5months ago) -Continue diuresis with IV Lasix 20mg bid -Continue BB, unable to have FABRICE secondary to renal function -Consult patient's corn cooker Dr. Mccormack -Evaluate need for AICD, defer to cardiology Atrial Fibrillation with RVR: HR 140s upon arrival. EKG showed afib with RVR. -S/p IV Cardizem 40mg x1 in the ED with improvement -Continue patient's Eliquis, amiodarone 200mg qd, metoprolol 100mg bid -HR now persistently in the low 100s however patient just ambulated with PT, consider adding po cardizem if persistently elevated -Cardiology consulted as above CKD stage III: Cr 1.92, appears at baseline -giving gentle diuresis as above -avoid nephrotoxins -monitor BMP Hypertension: chronic, BP fairly well controlled -continue patient's home meds including lopressor -monitor BP, adjust antihypertensives as needed Morbid Obesity: chronic, BMI 51.8. Weight 160kg. -student assistance counselor on weight reduction -heart healthy diet DVT Prophylaxis: on Eliquis Attending Statement patient was seen and examined today. presented to ER with decompensated CHF. now resting comfortably with improved sob. denies chest pain. continue with IV diuretic- awaiting cardiology evaluation. rest of the assessment and plan as noted above. Regine Oro PA-C Nov 15, 2017 09:48 Jamari Monge MD Nov 15, 2017 12:49
[2017-11-15] MEDS: ATORVASTATIN 80 MG TAB PO SCH ×2 (10:13→22:32)
[2017-11-15] MEDS: SODIUM CHLORIDE 0.9% FLUSH 10 ML FLUSH IV FLUSH SCH ×2 (10:13→21:00)
[2017-11-15] MEDS: AMIODARONE 200 MG TAB PO SCH (10:14)
[2017-11-15] MEDS: APIXABAN 5 MG TABLET PO SCH ×2 (10:14→22:33)
[2017-11-15] MEDS: TOPIRAMATE 200 MG TAB PO SCH (10:27)
[2017-11-15] MEDS: METOPROLOL TARTRATE 100 MG TAB PO SCH ×2 (10:58→22:32)
[2017-11-15 12:03] LABS: TROPONIN I 0.03 NG/ML (0.02-0.05)
--- NOTE | 2017-11-15 14:30 | EKG ---
Date Performed: 11/14/2017 Time Performed: 22:38:40 PTAGE: 57 years EKG: ATRIAL FIBRILLATION INDETERMINATE AXIS ABNORMAL ECG PREVIOUS TRACING : 11/14/2017 21.52 DOCTOR: Brian Devi Interpretating Date/Time 11/18/2017 13:09:59
--- NOTE | 2017-11-15 14:30 | EKG ---
Date Performed: 11/14/2017 Time Performed: 21:52:37 PTAGE: 57 years EKG: ATRIAL FIBRILLATION WITH RAPID VENTRICULAR RESPONSE Poor R-wave progression ABNORMAL ECG PREVIOUS TRACING : 07/24/2017 14.34 Since previous tracing, patient is now in atrial fibrillati on. DOCTOR: Brian Devi Interpretating Date/Time 11/15/2017 14:28:42
--- NOTE | 2017-11-15 14:30 | EKG ---
Date Performed: 11/15/2017 Time Performed: 04:15:42 PTAGE: 57 years EKG: ATRIAL FIBRILLATION NONSPECIFIC T-WAVE ABNORMALITY ABNORMAL ECG PREVIOUS TRACING : 11/14/2017 22.38 DOCTOR: Brian Devi Interpretating Date/Time 11/15/2017 14:29:24
--- NOTE | 2017-11-15 15:11 | MB ---
cc: WALE CHOE MD DATE OF CONSULTATION 11/15/2017 REASON FOR CONSULTATION Atrial fibrillation with rapid ventricular rate. HISTORY OF PRESENT ILLNESS Mr. Bruno is a 57-year-old -Irish man who does have a history of atrial fibrillation, nonischemic cardiomyopathy with no significant CAD by catheterization in October 2016, and a known EF of approximately 20% by echocardiogram in July 2017. The patient reports that over the last week he noticed the onset of progressive lower extremity edema. He also has had intermittent episodes of palpitations which precipitated his emergency room visit. The patient was found to be in atrial fibrillation with rapid ventricular rate and also CHF. Upon further discussion with the patient he apparently has had some dietary indiscretion and had potato chips. As well it does not appear that he has been taking his Cardizem. The patient reports he is significantly improved at this time. He also notes that he is trying to have his teeth pulled at the dentist. He apparently neglected to tell them that he had Medicaid for financial assistance and thus is actively pursuing that at this time. PAST MEDICAL HISTORY 1. Atrial fibrillation with a CHADS-VASc of 3, a point for hypertension, diabetes and CHF. 2. History of cardiomyopathy with most recent EF of 20%. 3. CHF. 4. No significant CAD by catheterization in 2016. 5. Diabetes. 6. Hypertension. 7. Hyperlipidemia. 8. LVH. 9. Morbid obesity. 10.Non-ST elevation NE. 11.Osteoarthritis. 12.Seizures. 13.CKD with a baseline creatinine of 1.7 to 2.0. 14.Obstructive sleep apnea, not on CPAP. ALLERGIES CASTOR OIL. MEDICATIONS Reported medications include: 1. Lopressor 100 mg q.12h. 2. Amiodarone 200 mg a day. 3. Atorvastatin 80 mg q.h.s. 4. Topamax 200 mg a day. 5. Eliquis 5 mg b.i.d. 6. It is noted that his office note does show that he was on Cardizem 240 mg q.12h. FAMILY HISTORY Positive for CAD. SOCIAL HISTORY The patient does not drink or smoke. PHYSICAL EXAMINATION VITAL SIGNS: His initial heart rate was 132 and currently is 97, respiratory rate 18, blood pressure 123/88. GENERAL: In general he is a morbidly obese man who is in no apparent distress. HEENT: He has poor dentition. NECK: Free from JVD. LUNGS: Decreased but clear to auscultation. CARDIOVASCULAR: Irregularly irregular rhythm. There is a 2/6 systolic murmur. No rubs or gallops are appreciated. ABDOMEN: Soft. EXTREMITIES: Trace amount of edema. LABORATORY Lab values are significant for creatinine of 1.92. Serial troponins are 0.02/0.02/0.03. BNP is 402. EKG EKG initially does show atrial fibrillation with RVR at 130 beats a minute. IMAGING Chest x-ray: Suspected early/mild failure. No infiltrates seen. IMPRESSIONS/RECOMMENDATIONS 1. Atrial fibrillation with rapid ventricular rate: The patient does have a history of atrial fibrillation and RVR. It is apparent that he has stopped his diltiazem. At this point I would add back the Cardizem. I would continue him on his Eliquis for a CHADS-VASc score of 3. If he is stable in the a.m. it would be reasonable for him to be discharged with close follow-up. 2. Nonischemic cardiomyopathy: The patient's most recent echo does continue to show an EF of approximately 20%. His teeth remain with very poor dentition and create a huge liability for endocarditis. As well he is fairly noncompliant. In any case I did discuss with him again pursuing getting his teeth pulled and to be sure to inform the dentist about his Medicaid status to assist with finances. After this we can then reevaluate him for an ICD. 3. CHF: The patient does have baseline renal insufficiency and does appear to be at baseline with his creatinine based on previous renal note. He has had problems with over-diuresis in the past. Thus at this point I would simply dose his Lasix as needed. I did disability counselor him on the dietary indiscretion. He has done reasonably well without any diuretics. At this point I am hesitant to prescribe them on an ongoing basis given his past problems only three months ago. Wale Choe M.D. CELY/OLIVER /1:32 PM /2:41 PM
[2017-11-15] MEDS: DILTIAZEM-CD 240 MG CAP ER PO SCH ×2 (15:39→22:33)
[2017-11-16] VITALS (13 sets, daily range): BP systolic 106–142; BP diastolic 51–86; PULSE 38–124; RESP 16–25; TEMP 94.8–98.6; O2SAT 97–100
[2017-11-16] MEDS ORDERED: DOPamine INJ PREMIX 500 ML IV ONE (05:00)
[2017-11-16] MEDS ORDERED: ATROPINE SULFATE 1 MG/10 ML SYRINGE IV ONE (05:00)
[2017-11-16] MEDS ORDERED: ALPRAZolam 0.25 MG TAB PO ONE (05:45)
[2017-11-16] MEDS ORDERED: SIMETHICONE 125 MG CHEWABLE TAB PO ONE ×2 (05:45)
[2017-11-16] MEDS ORDERED: DEXTROSE 50% IN WATER 50 ML SYRINGE ONE (06:50)
[2017-11-16] MEDS ORDERED: MIDAZOLAM HCL 5 MG/ML VIAL (1 ML) ONE (07:17)
[2017-11-16] MEDS ORDERED: ROCURONIUM INJ 50 MG/5 ML VIAL ONE ×2 (07:17→07:38)
[2017-11-16] MEDS ORDERED: NOREPINEPHRINE-DEXTROSE DRIP 250 ML IV ONE ×2 (07:20→08:50)
[2017-11-16] MEDS: CHLORHEXIDINE 0.12% (ORAL KIT) 15 ML CUP MT SCH ×2 (08:00→21:17)
--- NOTE | 2017-11-16 08:57 | PD.CONS ---
HPI Service Critical Care Medicine Consult Requested By [facility] Reason for Consult Systolic heart failure, bradycardia Primary Care Physician Roxi Gonzales MD History of Present Illness 57 y/o man with chronic nonischemic cardiomyopathy, EF 20% presents two days ago to ED with a-fib and RVR. Morbid obesity and chronic obesity hypoventilation syndrome. Developed bradycardia requiring atropine this morning , rushed to [facility] where on arrival he is obtunded with agonal respirations. Rate acceptable, depth shallow. Required bag mask ventilation, dopamine and levophed. Unable to intubate despite optic endoscope; proceeded to tracheostomy. Sats maintained > 80% throughout. Initial pH 7.14. Review of Systems ROS Unobtainable, obtunded. Past Family Social History Allergies: Coded Allergies: castor oil (Unverified Allergy, Unknown, THROW UP, 11/14/17) Past Medical History Past Family Social History Past Medical History HTN Atrial fibrillation Chronic systolic congestive heart failure History of respiratory failure requiring intubation and tracheostomy tube placement. Removed on July 25, 2017. History of cardiogenic shock with PEA cardiac arrest in last admission June Chronic kidney disease stage III Seizure disorder Thrombocytopenia. Was followed up by percussion instructor and had bone marrow biopsy on July 24, 2017. Morbid obesity Obstructive sleep apnea. Was told he needs C Pap but has not been able to arrange it. Past Surgical History Coronary angiogram. Tracheostomy Allergies: Coded Allergies: castor oil (Unverified Allergy, Unknown, THROW UP, 11/14/17) Family History brother- dm dad- [place] Social History never smoked no etoh abuse no drugs live on his own Physical Exam Vital Signs Vital Signs Date Time Temp Pulse Resp B/P (MAP) Pulse Ox O2 Delivery O2 Flow Rate FiO2 11/16/17 08:30 100 100 11/16/17 07:03 62 18 11/16/17 06:55 68 22 98 11/16/17 06:50 98.4 38 16 11/16/17 02:56 98.2 79 16 142/86 (104) 97 11/15/17 23:34 98.0 55 16 143/89 (107) 97 11/15/17 20:03 97.9 65 17 139/84 (102) 97 11/15/17 16:33 97.5 84 18 142/80 (100) 96 11/15/17 16:06 96 11/15/17 13:20 113 1/12/18 12:00 97.4 97 18 123/88 (100) 95 11/15/17 11:00 121 24 131/77 (95) 96 11/15/17 10:00 116 15 137/66 (89) 96 Room Air Physical Exam P 35 - 62, SBP unobtainable, R 18 bagged, sats 86% Head: Normal. Neck: Large, supple, obstructed efforts. Lungs: Few crackles, weak effort. Heart: Distant tones, irreg irreg, + JVD Extremities: Bilateral brawny induration lower legs, 2+ edema. Neuro: Withdraws 4 limbs to stimulation. Does not open eyes. Pupils 3 mm, reactive. Laboratory Laboratory Tests Test 11/15/17 10:00 11/15/17 12:42 11/16/17 08:20 Total Creatine Kinase 206 Troponin I 0.03 B-Type Natriuretic Peptide 402 Blood Gas Puncture Site SWAN EDELMIRA LINE Blood Gas Patient Temperature 98.6 Venous Blood pH 7.14 Venous Blood Partial Pressure CO2 62 Venous Blood Partial Pressure O2 60 Venous Blood HCO3 20 Venous Blood Oxygen Saturation 76 Venous Blood Oxygen Content 13.7 Venous Blood Base Excess -7.2 Oxygen Delivery Device VENTILATOR Blood Gas Ventilator Setting 18/500/+8/0.9 Blood Gas Inspired Oxygen 100 Date/Time Source Procedure Growth Status 11/14/17 22:04 Nasal Washing Influenza Types A,B Antigen (MELVIN) - Final NEGATIVE FOR FLU A AND B ANTIGEN.... Complete Result Diagram: 11/14/17220311/14/172203 Assessment and Plan Problem List: (1) Acute on chronic respiratory failure with hypoxemia ICD Code: J96.21 - Acute and chronic respiratory failure with hypoxia (2) Symptomatic bradycardia ICD Code: R00.1 - Bradycardia, unspecified Status: Acute (3) Morbid obesity with BMI of 50.0-59.9, adult ICD Code: E66.01 - Morbid (severe) obesity due to excess calories; Z68.43 - Body mass index (BMI) 50-59.9 , adult Status: Acute (4) Atrial fibrillation ICD Code: I48.91 - Unspecified atrial fibrillation Status: Chronic (5) CKD (chronic kidney disease), stage III ICD Code: N18.3 - Chronic kidney disease, stage 3 (moderate) Status: Chronic (6) Chronic systolic CHF (congestive heart failure) ICD Code: I50.22 - Chronic systolic (congestive) heart failure Status: Chronic Assessment and Plan Plan: 1. PRVC ventilator mode. 2. PEEP 8. 3. CVL. 4. Dopamine to keep pulse > 60. 5. Levophed to keep MAP > 65. 6. Follow CVP. 7. Adjust cardizem and lopessor per cardiology. 8. Follow lytes. 9. BNP. Overall impression: Patient is critically ill with chronic systolic heart failure and deteriorating respiratory status. Now on mechanical ventilation and requiring vasopressor support. Critical care 60 mins aside from procedures. Sohail Ma MD Nov 16, 2017 08:57
[2017-11-16] MEDS: TOPIRAMATE 200 MG TAB PO SCH (09:00)
[2017-11-16] MEDS: AMIODARONE 200 MG TAB PO SCH (09:00)
[2017-11-16] MEDS: SODIUM BICARBONATE 8.4% INJ 150 MEQ in WATER STERILE FOR INJ 850 ML IV SCH (09:00)
[2017-11-16] MEDS: METOPROLOL TARTRATE 100 MG TAB PO SCH ×2 (09:00→21:00)
[2017-11-16] MEDS: DILTIAZEM-CD 240 MG CAP ER PO SCH ×2 (09:00→20:12)
[2017-11-16] MEDS: SODIUM CHLORIDE 0.9% FLUSH 10 ML FLUSH IV FLUSH SCH ×2 (09:00→21:00)
[2017-11-16 09:03] LABS: AUTOMATED NEUTROPHIL # 18.4 TH/MM3 (1.8-7.7); BASOPHIL # 0.1 TH/MM3 (0-0.2); BASOPHIL % 0.2 % (0.0-2.0); EOSINOPHIL # 0.1 TH/MM3 (0-0.4); EOSINOPHIL % 0.2 % (0.0-4.0); HEMATOCRIT 39.7 % (39.0-51.0); HEMOGLOBIN 12.7 GM/DL (13.0-17.0); LYMPH % 7.2 % (9.0-44.0); LYMPHOCYTE # 1.6 TH/MM3 (1.0-4.8); MEAN CELL VOLUME 93.4 FL (80.0-100.0); MEAN CORPUSCULAR HEMOGLOBIN 29.7 PG (27.0-34.0); MEAN CORPUSCULAR HGB CONC 31.9 % (32.0-36.0); MEAN PLATELET VOLUME 12.5 FL (7.0-11.0); MONO % 8.4 % (0.0-8.0); MONOCYTE # 1.8 TH/MM3 (0-0.9); PLATELET COUNT 112 TH/MM3 (150-450); RED BLOOD COUNT 4.25 MIL/MM3 (4.50-5.90); RED CELL DISTRIBUTION WIDTH 14.9 % (11.6-17.2)
--- NOTE | 2017-11-16 09:11 | PD.PROCEDR ---
Procedure Note Procedure DX: Hypoxemic Respiratory Failure OP: 1. Emergency tracheostomy (52428) 2. Insertion Central Venous Line (68883) Procedure: Morbidly obese man with chronic respiratory failure and previous tracheostomy requires emergency airway due to hypoxemic respiratory failure and unstable hemodynamics. On dopamine and levophed for hypotension and bradycardia. 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 While therapists continued to bag patient, assisted by a 10 oral airway, the anterior neck was prepped and draped. A 2 cm vertical incision was made above the old trach scar. The cricoid ring was identified and a needle was used to cannulate the trachea at this level. Lower placement in the trachea was not immediately available due to scar. A wire was passed through the tracheal needle, dilator passed and #8 trach tube passed over same wire. Position confirmed with CO2 detection, breath sounds, improved sats to > 90%. The flange was sewn to the skin with 2-0 prolene and trach ties were applied around the neck. The right chest was the prepped and draped. Right subclavian vein was cannulated with a 20 guage spinal needle and wire easily advanced. Catheter passed over wire to 18 cm and lumens aspirated and flushed. Dressing applied. CXR ordered, will review. Sohail Ma MD Nov 16, 2017 09:11
[2017-11-16] MEDS ORDERED: BISACODYL 10 MG SUPP RECTAL PRN (09:15)
[2017-11-16] MEDS ORDERED: CHLORHEXIDINE GLUCONATE 2 % 1 PACK (2 CLOTHS) TOP PRN (09:15)
[2017-11-16] MEDS ORDERED: LACTULOSE SYRUP 20 GM/30 ML CUP PO PRN (09:15)
[2017-11-16] MEDS ORDERED: SENNOSIDES 8.6 MG TAB PO PRN (09:15)
[2017-11-16] MEDS ORDERED: MAGNESIUM HYDROXIDE SUSP 30 ML CUP PO PRN (09:15)
[2017-11-16] MEDS ORDERED: MISCELLANEOUS NURSING INFORMATION XX SCH (09:15)
[2017-11-16 09:21] LABS: BICARBONATE 20.4 MEQ/L (21.0-32.0); CALCIUM 8.2 MG/DL (8.5-10.1); CREATININE 3.64 MG/DL (0.60-1.30)
[2017-11-16] MEDS: FAMOTIDINE 20 MG/2 ML VIAL IV PUSH SCH ×2 (10:00→20:12)
--- NOTE | 2017-11-16 10:17 | RADRPT ---
EXAM DATE/TIME: 11/16/2017 09:42 [facility] COMPARISON: CHEST SINGLE AP, November 14, 2017, 21:41. INDICATIONS : Evaluate for Trach and NG tube placement. MEDICAL HISTORY : A-fib. Hypercholesterolemia. Hypertension. Congestive heart failure SURGICAL HISTORY : None. ENCOUNTER: Subsequent ACUITY: 1 day PAIN SCORE: Non-responsive. LOCATION: chest FINDINGS: Single AP view of the chest. Tracheostomy tube is in place. Nasogastric tube is in place and the tip is below the field of view of the radiograph. Possible right subclavian central venous catheter or In fuse-a-Port is somewhat obscured but the tip appears to be in the region of the distal SVC. Prominent bilateral lower lung zone predominant pulmonary opacity. Cardiac silhouette enlargement unchanged. N o evidence of pneumothorax. CONCLUSION: 1. Tracheostomy in nasogastric tube noted. Possible right subclavian central venous catheter. 2. New prominent bilateral lower lung zone predominant pulmonary opacity likely worsening pulmonary e mary. 3. Persistent cardiac silhouette enlargement. Jose Bruno MD on November 16, 2017 at 10:11 Board Certified Radiologist. This report was verified electronically.
--- NOTE | 2017-11-16 10:20 | RADRPT ---
EXAM DATE/TIME: 11/16/2017 09:53 [facility] COMPARISON: ABDOMEN KUB ONLY, June 22, 2017, 15:43. INDICATIONS : Evaluate for NG tube placement. MEDICAL HISTORY : None. SURGICAL HISTORY : None. ENCOUNTER: Subsequent ACUITY: 1 day PAIN SCORE: Non-responsive. LOCATION: Abdomen FINDINGS: 2 AP views of the abdomen. Examination is quite limited due to patient body habitus. Nasogastric tube is in place with tip in the region of the distal stomach. CONCLUSION: Nasogastric tube tip in the region of the distal stomach. Jose Bruno MD on November 16, 2017 at 10:16 Board Certified Radiologist. This report was verified electronically.
--- NOTE | 2017-11-16 10:28 | PD.CARD.PN ---
Subjective Subjective Remarks intubated Objective Medications Current Medications Medications (Trade) Dose Ordered Sig/Ashok Route Start Time Stop Time Status Last Admin (NS Flush) 2 ml UNSCH PRN IV FLUSH 11/15/17 00:15 (NS Flush) 2 ml BID IV FLUSH 11/15/17 09:00 11/15/17 10:13 (Narcan Inj) 0.4 mg UNSCH PRN IV PUSH 11/15/17 00:15 (Cordarone) 200 mg DAILY PO 11/15/17 09:00 11/15/17 10:14 (Eliquis) 5 mg BID PO 11/15/17 09:00 Future hold 11/15/17 22:33 (Lipitor) 80 mg HS PO 11/15/17 21:00 11/15/17 22:32 (Lopressor) 100 mg Q12H PO 11/15/17 09:00 11/15/17 22:32 (Topamax) 200 mg DAILY PO 11/15/17 09:00 11/15/17 10:27 (Cardizem Cd) 240 mg BID PO 11/15/17 13:45 11/15/17 22:33 (Peridex 0.12% Liq) 15 ml BID@08,20 MT 11/16/17 08:00 Propofol 100 ml @ 4.773 mls/ hr TITRATE PRN IV 11/16/17 07:30 Fentanyl Citrate 250 ml @ 5 mls/hr TITRATE PRN IV 11/16/17 07:30 Sodium Bicarbonate 150 meq/Sterile Water 1,000 ml @ 45 mls/hr [id number] IV 11/16/17 09:00 (Tylenol) 650 mg Q6H PRN PO 11/16/17 09:15 (Morphine Inj) 2 mg Q2H PRN IV PUSH 11/16/17 09:15 (Pepcid Inj) 10 mg Q12HR IV PUSH 11/16/17 10:00 (Zofran Inj) 4 mg Q6H PRN IV PUSH 11/16/17 09:15 (Duoneb Neb) 1 ampule Q4HR NEB PRN INH 11/16/17 09:15 Miscellaneous Information 1 Q361D XX 11/16/17 09:15 (Chlorhexidine 2% Cloth) 3 pack Taper DAILY@04 TOP 11/17/17 04:00 11/13/18 03:59 (Chlorhexidine 2% Cloth) 3 pack UNSCH PRN TOP 11/16/17 09:15 (Marilee-Colace) 1 tab BID PO 11/16/17 21:00 (Milk Of Magnesia Liq) 30 ml Q12H PRN PO 11/16/17 09:15 (Senokot) 17.2 mg Q12H PRN PO 11/16/17 09:15 (Dulcolax Supp) 10 mg DAILY PRN RECTAL 11/16/17 09:15 (Lactulose Liq) 30 ml DAILY PRN PO 11/16/17 09:15 Vital Signs / I&O Vital Signs Date Time Temp Pulse Resp B/P (MAP) Pulse Ox O2 Delivery O2 Flow Rate FiO2 11/16/17 08:30 100 100 11/16/17 07:03 62 18 11/16/17 06:55 68 22 98 11/16/17 06:50 98.4 38 16 11/16/17 02:56 98.2 79 16 142/86 (104) 97 11/15/17 23:34 98.0 55 16 143/89 (107) 97 11/15/17 20:03 97.9 65 17 139/84 (102) 97 11/15/17 16:33 97.5 84 18 142/80 (100) 96 11/15/17 16:06 96 11/15/17 13:20 113 11/15/17 12:00 97.4 97 18 123/88 (100) 95 11/15/17 11:00 121 24 131/77 (95) 96 I/O 11/15/17 11/15/17 11/15/17 11/16/17 11/16/17 11/16/17 07:00 15:00 23:00 07:00 15:00 23:00 Intake Total 240 ml 660 ml 240 ml 100 ml Output Total 350 ml 800 ml 300 ml 400 ml 100 ml Balance -350 ml -560 ml 360 ml -160 ml 0 ml Intake Oral 240 ml 660 ml 240 ml 100 ml Output Urine Total 350 ml 800 ml 300 ml 400 ml 100 ml # Voids 1 Physical Exam s/p emergency trach. intubated, sedated, extreme morbid obesity HEENT: poor dentition Chest: B/L rhonchi CV S1S2 regular tele SR I can't find strips of prior janene edema trace Laboratory Laboratory Tests Test 11/15/17 12:42 11/16/17 08:20 11/16/17 08:25 B-Type Natriuretic Peptide 402 PG/ML Blood Gas Puncture Site SWAN EDELMIRA LINE Blood Gas Patient Temperature 98.6 Venous Blood pH 7.14 Venous Blood Partial Pressure CO2 62 mmHg Venous Blood Partial Pressure O2 60 mmHg Venous Blood HCO3 20 mmol/L Venous Blood Oxygen Saturation 76 % Venous Blood Oxygen Content 13.7 Vol % Venous Blood Base Excess -7.2 mmol/L Oxygen Delivery Device VENTILATOR Blood Gas Ventilator Setting 18/500/+8/0.9 Blood Gas Inspired Oxygen 100 % White Blood Count 22.0 TH/MM3 Red Blood Count 4.25 MIL/MM3 Hemoglobin 12.7 GM/DL Hematocrit 39.7 % Mean Corpuscular Volume 93.4 FL Mean Corpuscular Hemoglobin 29.7 PG Mean Corpuscular Hemoglobin Concent 31.9 % Red Cell Distribution Width 14.9 % Platelet Count 112 TH/MM3 Mean Platelet Volume 12.5 FL Neutrophils (%) (Auto) 84.0 % Lymphocytes (%) (Auto) 7.2 % Monocytes (%) (Auto) 8.4 % Eosinophils (%) (Auto) 0.2 % Basophils (%) (Auto) 0.2 % Neutrophils # (Auto) 18.4 TH/MM3 Lymphocytes # (Auto) 1.6 TH/MM3 Monocytes # (Auto) 1.8 TH/MM3 Eosinophils # (Auto) 0.1 TH/MM3 Basophils # (Auto) 0.1 TH/MM3 CBC Comment AUTO DIFF Differential Comment AUTO DIFF CONFIRMED Platelet Estimate LOW Platelet Morphology Comment ENLARGED Blood Urea Nitrogen 35 MG/DL Creatinine 3.64 MG/DL Random Glucose 169 MG/DL Calcium Level 8.2 MG/DL Sodium Level 138 MEQ/L Potassium Level 6.0 MEQ/L Chloride Level 104 MEQ/L Carbon Dioxide Level 20.4 MEQ/L Anion Gap 14 MEQ/L Estimat Glomerular Filtration Rate 21 ML/MIN Imaging Last 48 hours Impressions Chest X-Ray 11/14/172135 Signed Impressions: Service Date/Time: November 21:41 - CONCLUSION: Suspected early/mild failure. No confluent infiltrates seen. Kushal Horta MD Assessment and Plan Problem List: (1) Non-ischemic cardiomyopathy ICD Codes: I42.8 - Other cardiomyopathies (2) Respiratory failure ICD Codes: J96.90 - Respiratory failure, unspecified, unspecified whether with hypoxia or hypercapnia (3) Tachy-janene syndrome ICD Codes: I49.5 - Sick sinus syndrome (4) Morbid obesity with BMI of 50.0-59.9, adult ICD Codes: E66.01 - Morbid (severe) obesity due to excess calories; Z68.43 - Body mass index (BMI) 50-59.9 , adult Status: Acute (5) Chronic systolic CHF (congestive heart failure) ICD Codes: I50.22 - Chronic systolic (congestive) heart failure Status: Chronic (6) Poor dentition ICD Codes: K08.9 - Disorder of teeth and supporting structures, unspecified Assessment and Plan On pressors/ gradually being weaned. Suspect he went from AF RVR to severe sinus jnaene - will likely need DDD pacer this admit. Olman Mckay MD Nov 16, 2017 10:28
[2017-11-16] MEDS: PROPOFOL 1000 MG/100 ML INJ 100 ML IV PRN (12:37)
[2017-11-16] MEDS: fentaNYL DRIP 250 ML IV PRN (12:37)
--- NOTE | 2017-11-16 15:49 | EKG ---
Date Performed: 11/15/2017 Time Performed: 10:24:38 PTAGE: 57 years EKG: ATRIAL FIBRILLATION WITH RAPID VENTRICULAR RESPONSE INDETERMINATE AXIS Nonspecific T wave a bnormality Since previous tracing, no significant change noted ABNORMAL ECG PREVIOUS TRACING : 11/15/2017 04.15 DOCTOR: Olman Mckay Interpretating Date/Time 11/16/2017 15:49:21
--- NOTE | 2017-11-16 15:51 | EKG ---
Date Performed: 11/16/2017 Time Performed: 06:55:30 PTAGE: 57 years EKG: ATRIAL FIBRILLATION WITH SLOW VENTRICULAR RESPONSE NONSPECIFIC ST-T WAVE ABNORMALITY WITH A DIFFERENT APPEARANCE FROM THE PRIOR TRACING ABNORMAL ECG PREVIOUS TRACING : 11/15/2017 10.24 DOCTOR: Olman Mckay Interpretating Date/Time 11/16/2017 15:50:12
[2017-11-16] MEDS ORDERED: TERBUTALINE INJ 1 MG/ML AMP SQ PRN (20:00)
[2017-11-16] MEDS: DOPamine 800 MG/D5W PREMIX 500 ML IV PRN (20:11)
[2017-11-16] MEDS: DOCUSATE SODIUM 50 MG/SENNA 8.6 MG TAB PO SCH (20:12)
[2017-11-16] MEDS: ATORVASTATIN 80 MG TAB PO SCH (21:21)
[2017-11-17] VITALS (13 sets, daily range): BP systolic 112–134; BP diastolic 55–76; PULSE 57–104; RESP 9–25; TEMP 98.2–99.9; O2SAT 95–100
[2017-11-17] MEDS: CHLORHEXIDINE GLUCONATE 2 % 1 PACK (2 CLOTHS) TOP SCH (04:00)
[2017-11-17] MEDS: fentaNYL DRIP 250 ML IV PRN (04:17)
[2017-11-17] MEDS: PROPOFOL 1000 MG/100 ML INJ 100 ML IV PRN (04:17)
[2017-11-17 05:43] LABS: AUTOMATED NEUTROPHIL # 8.8 TH/MM3 (1.8-7.7); BASOPHIL % 0.4 % (0.0-2.0); EOSINOPHIL % 0.3 % (0.0-4.0); HEMATOCRIT 37.8 % (39.0-51.0); HEMOGLOBIN 12.4 GM/DL (13.0-17.0); LYMPH % 10.9 % (9.0-44.0); LYMPHOCYTE # 1.2 TH/MM3 (1.0-4.8); MEAN CELL VOLUME 89.5 FL (80.0-100.0); MEAN CORPUSCULAR HEMOGLOBIN 29.4 PG (27.0-34.0); MEAN CORPUSCULAR HGB CONC 32.8 % (32.0-36.0); MEAN PLATELET VOLUME 11.9 FL (7.0-11.0); MONO % 6.6 % (0.0-8.0); MONOCYTE # 0.7 TH/MM3 (0-0.9); NEUT % 81.8 % (16.0-70.0); PLATELET COUNT 101 TH/MM3 (150-450); RED BLOOD COUNT 4.22 MIL/MM3 (4.50-5.90); RED CELL DISTRIBUTION WIDTH 14.4 % (11.6-17.2); WHITE BLOOD COUNT 10.8 TH/MM3 (4.0-11.0)
[2017-11-17 05:57] LABS: ALBUMIN 3.1 GM/DL (3.4-5.0); BICARBONATE 25.3 MEQ/L (21.0-32.0); BLOOD UREA NITROGEN 39 MG/DL (7-18); CALCIUM 8.5 MG/DL (8.5-10.1); CHLORIDE 108 MEQ/L (98-107); CREATININE 2.98 MG/DL (0.60-1.30); GLOMERULAR FILTRATION RATE 26 ML/MIN (>89); GLUCOSE,RANDOM 109 MG/DL (74-106); SODIUM (NA) 143 MEQ/L (136-145)
[2017-11-17 06:14] LABS: ALKALINE PHOSPHATASE 135 U/L (45-117); ALT (GPT) 4020 U/L (12-78); AST (GOT) 4455 U/L (15-37); TOTAL BILIRUBIN ADULT 1.8 MG/DL (0.2-1.0); TOTAL PROTEIN 6.2 GM/DL (6.4-8.2)
[2017-11-17] MEDS: CHLORHEXIDINE 0.12% (ORAL KIT) 15 ML CUP MT SCH ×2 (07:27→21:18)
[2017-11-17] MEDS: SODIUM CHLORIDE 0.9% FLUSH 10 ML FLUSH IV FLUSH SCH ×2 (07:33→21:18)
[2017-11-17] MEDS: FAMOTIDINE 20 MG/2 ML VIAL IV PUSH SCH ×2 (07:33→21:18)
[2017-11-17] MEDS: DILTIAZEM-CD 240 MG CAP ER PO SCH ×3 (07:34→21:18)
[2017-11-17] MEDS: METOPROLOL TARTRATE 100 MG TAB PO SCH ×2 (07:34→21:18)
[2017-11-17] MEDS: AMIODARONE 200 MG TAB PO SCH (07:34)
[2017-11-17] MEDS: DOCUSATE SODIUM 50 MG/SENNA 8.6 MG TAB PO SCH ×2 (07:35→21:18)
[2017-11-17] MEDS: TOPIRAMATE 200 MG TAB PO SCH (07:35)
[2017-11-17] MEDS: SODIUM BICARBONATE 8.4% INJ 150 MEQ in WATER STERILE FOR INJ 850 ML IV SCH (09:00)
[2017-11-17] MEDS: DOPamine 800 MG/D5W PREMIX 500 ML IV PRN ×2 (11:00→23:39)
--- NOTE | 2017-11-17 12:01 | PD.CARD.PN ---
Subjective Subjective Remarks awake, follows commmands, can't speak with trach Objective Medications Current Medications Medications (Trade) Dose Ordered Sig/Ashok Route Start Time Stop Time Status Last Admin (NS Flush) 2 ml UNSCH PRN IV FLUSH 11/15/17 00:15 (NS Flush) 2 ml BID IV FLUSH 11/15/17 09:00 11/17/17 07:33 (Narcan Inj) 0.4 mg UNSCH PRN IV PUSH 11/15/17 00:15 (Cordarone) 200 mg DAILY PO 11/15/17 09:00 11/17/17 07:34 (Eliquis) 5 mg BID PO 11/15/17 09:00 Future hold 11/15/17 22:33 (Lipitor) 80 mg HS PO 11/15/17 21:00 11/16/17 21:21 (Lopressor) 100 mg Q12H PO 11/15/17 09:00 11/15/17 22:32 (Topamax) 200 mg DAILY PO 11/15/17 09:00 11/17/17 07:35 (Cardizem Cd) 240 mg BID PO 11/15/17 13:45 11/16/17 20:12 (Peridex 0.12% Liq) 15 ml BID@08,20 MT 11/16/17 08:00 11/17/17 07:27 Propofol 100 ml @ 4.773 mls/ hr TITRATE PRN IV 11/16/17 07:30 11/17/17 04:17 Fentanyl Citrate 250 ml @ 5 mls/hr TITRATE PRN IV 11/16/17 07:30 11/17/17 04:17 Sodium Bicarbonate 150 meq/Sterile Water 1,000 ml @ 45 mls/hr [id number] IV 11/16/17 09:00 11/16/17 09:00 (Tylenol) 650 mg Q6H PRN PO 11/16/17 09:15 (Morphine Inj) 2 mg Q2H PRN IV PUSH 11/16/17 09:15 (Pepcid Inj) 10 mg Q12HR IV PUSH 11/16/17 10:00 11/17/17 07:33 (Zofran Inj) 4 mg Q6H PRN IV PUSH 11/16/17 09:15 (Duoneb Neb) 1 ampule Q4HR NEB PRN INH 11/16/17 09:15 Miscellaneous Information 1 Q361D XX 11/16/17 09:15 (Chlorhexidine 2% Cloth) 3 pack Taper DAILY@04 TOP 11/17/17 04:00 11/13/18 03:59 (Chlorhexidine 2% Cloth) 3 pack UNSCH PRN TOP 11/16/17 09:15 (Marilee-Colace) 1 tab BID PO 11/16/17 21:00 11/17/17 07:35 (Milk Of Magnesia Liq) 30 ml Q12H PRN PO 11/16/17 09:15 (Senokot) 17.2 mg Q12H PRN PO 11/16/17 09:15 (Dulcolax Supp) 10 mg DAILY PRN RECTAL 11/16/17 09:15 (Lactulose Liq) 30 ml DAILY PRN PO 11/16/17 09:15 Dopamine HCl/ Dextrose 500 ml @ 18.428 mls/ hr TITRATE PRN IV 11/16/17 20:00 11/16/17 20:11 (Brethine Inj) 1 mg UNSCH PRN SQ 11/16/17 20:00 Vital Signs / I&O Vital Signs Date Time Temp Pulse Resp B/P (MAP) Pulse Ox O2 Delivery O2 Flow Rate FiO2 11/17/17 10:10 99 40 11/17/17 10:02 40 11/17/17 10:02 98 40 11/17/17 09:53 95 T-piece 6.00 40 11/17/17 08:30 40 11/17/17 08:30 99 40 11/17/17 04:00 99.3 85 25 119/60 (79) 96 11/17/17 04:00 96 40 11/17/17 00:55 96 40 11/17/17 00:00 99.1 57 23 114/55 (74) 97 11/16/17 20:11 53 110/51 11/16/17 20:00 98.6 54 19 110/57 (74) 97 11/16/17 19:35 97 40 11/16/17 16:31 98 40 11/16/17 16:00 96.4 48 25 106/51 (69) 100 11/16/17 15:00 100 50 11/16/17 12:41 100 70 11/16/17 12:00 94.8 57 22 112/52 (72) 100 I/O 11/16/17 11/16/17 11/16/17 11/17/17 11/17/17 11/17/17 07:00 15:00 23:00 07:00 15:00 23:00 Intake Total 240 ml 100 ml 350 ml Output Total 400 ml 100 ml 1700 ml 3100 ml Balance -160 ml 0 ml -1700 ml -2750 ml Intake Oral 240 ml 100 ml IV Total 350 ml Output Urine Total 400 ml 100 ml 1700 ml 3000 ml Gastric Drainage Total 100 ml # Bowel Movements 0 0 Physical Exam s/p emergency trach. intubated, sedated, extreme morbid obesity HEENT: poor dentition Chest: B/L rhonchi CV S1S2 irr/irr (aflutter on tele) edema trace Laboratory Laboratory Tests Test 11/16/17 14:38 11/17/17 05:20 Blood Gas Puncture Site SWAN EDELMIRA LINE Blood Gas Patient Temperature 98.6 Venous Blood pH 7.40 Venous Blood Partial Pressure CO2 32 mmHg Venous Blood Partial Pressure O2 50 mmHg Venous Blood HCO3 19 mmol/L Venous Blood Oxygen Saturation 80 % Venous Blood Oxygen Content 13.4 Vol % Venous Blood Base Excess -5.0 mmol/L Oxygen Delivery Device VENTILATOR Blood Gas Ventilator Setting 22/550/+8/0.85 Blood Gas Inspired Oxygen 70 % White Blood Count 10.8 TH/MM3 Red Blood Count 4.22 MIL/MM3 Hemoglobin 12.4 GM/DL Hematocrit 37.8 % Mean Corpuscular Volume 89.5 FL Mean Corpuscular Hemoglobin 29.4 PG Mean Corpuscular Hemoglobin Concent 32.8 % Red Cell Distribution Width 14.4 % Platelet Count 101 TH/MM3 Mean Platelet Volume 11.9 FL Neutrophils (%) (Auto) 81.8 % Lymphocytes (%) (Auto) 10.9 % Monocytes (%) (Auto) 6.6 % Eosinophils (%) (Auto) 0.3 % Basophils (%) (Auto) 0.4 % Neutrophils # (Auto) 8.8 TH/MM3 Lymphocytes # (Auto) 1.2 TH/MM3 Monocytes # (Auto) 0.7 TH/MM3 Eosinophils # (Auto) 0.0 TH/MM3 Basophils # (Auto) 0.0 TH/MM3 CBC Comment DIFF FINAL Differential Comment Blood Urea Nitrogen 39 MG/DL Creatinine 2.98 MG/DL Random Glucose 109 MG/DL Total Protein 6.2 GM/DL Albumin 3.1 GM/DL Calcium Level 8.5 MG/DL Phosphorus Level 2.0 MG/DL Magnesium Level 2.0 MG/DL Alkaline Phosphatase 135 U/L Aspartate Amino Transf (AST/SGOT) 4455 U/L Alanine Aminotransferase (ALT/SGPT) 4020 U/L Total Bilirubin 1.8 MG/DL Sodium Level 143 MEQ/L Potassium Level 3.8 MEQ/L Chloride Level 108 MEQ/L Carbon Dioxide Level 25.3 MEQ/L Anion Gap 10 MEQ/L Estimat Glomerular Filtration Rate 26 ML/MIN Lactic Acid Level 2.0 mmol/L Imaging Last 48 hours Impressions Chest X-Ray 11/16/17 0000 Signed Impressions: Service Date/Time: Thursday, November 16, 2017 09:42 - CONCLUSION: 1. Tracheostomy in nasogastric tube noted. Possible right subclavian central venous catheter. 2. New prominent bilateral lower lung zone predominant pulmonary opacity likely worsening pulmonary edema. 3. Persistent cardiac silhouette enlargement. Jose Bruno MD Abdomen X-Ray 11/16/17 0000 Signed Impressions: Service Date/Time: Thursday, November 16, 2017 09:53 - CONCLUSION: Nasogastric tube tip in the region of the distal stomach. Jose Bruno MD Assessment and Plan Problem List: (1) Non-ischemic cardiomyopathy ICD Codes: I42.8 - Other cardiomyopathies (2) Respiratory failure ICD Codes: J96.90 - Respiratory failure, unspecified, unspecified whether with hypoxia or hypercapnia (3) Tachy-janene syndrome ICD Codes: I49.5 - Sick sinus syndrome (4) Morbid obesity with BMI of 50.0-59.9, adult ICD Codes: E66.01 - Morbid (severe) obesity due to excess calories; Z68.43 - Body mass index (BMI) 50-59.9 , adult Status: Acute (5) Chronic systolic CHF (congestive heart failure) ICD Codes: I50.22 - Chronic systolic (congestive) heart failure Status: Chronic (6) Poor dentition ICD Codes: K08.9 - Disorder of teeth and supporting structures, unspecified Assessment and Plan Much improved. Has ATN, shock liver. Olman Mckay MD Nov 17, 2017 12:00
--- NOTE | 2017-11-17 15:18 | HHI.CCPN ---
Subjective Remarks/Hospital Course 57 y/o man with chronic nonischemic cardiomyopathy, EF 20% presents two days ago to ED with a-fib and RVR. Morbid obesity and chronic obesity hypoventilation syndrome. Developed bradycardia requiring atropine this morning , rushed to [facility] where on arrival he is obtunded with agonal respirations. Rate acceptable, depth shallow. Required bag mask ventilation, dopamine and levophed. Unable to intubate despite optic endoscope; proceeded to tracheostomy. Sats maintained > 80% throughout. Initial pH 7.14. 11/17: S/P resuscitation for probable hypercapneic respiratory arrest with bradycardia, hypotension. Has required mechanical ventilation. Perfusion improved after inotropic support instituted, now tapering. Elevated LFTs may reflect period of inadequate perfusion. Objective Vital Signs Date Time Temp Pulse Resp B/P (MAP) Pulse Ox O2 Delivery O2 Flow Rate FiO2 11/17/17 11:00 91 139/59 11/17/17 10:10 99 40 11/17/17 09:53 T-piece 6.00 11/17/17 04:00 99.3 25 Intake and Output 11/17/17 11/17/17 11/18/17 08:00 16:00 00:00 Intake Total 350 ml Output Total 3100 ml Balance -2750 ml Result Diagram: 11/17/17 0520 11/17/17 0520 Other Results Microbiology Date/Time Source Procedure Growth Status 11/14/17 22:04 Nasal Washing Influenza Types A,B Antigen (MELVIN) - Final NEGATIVE FOR FLU A AND B ANTIGEN.... Complete Objective Remarks P 80s, SBP 130s, R 16, sats 96% Head: Normal. Neck: Large, supple, trach site dry with old blood. Lungs: Crackles, no wheezes. Scattered rhonchi. Good anita air movement. Heart: Distant tones, irreg irreg, + JVD Extremities: Bilateral brawny induration lower legs, 2+ edema. Neuro: Withdraws 4 limbs to stimulation. Will open eyes. Pupils 3 mm, reactive. A/P Problem List: (1) Acute on chronic respiratory failure with hypoxemia ICD Code: J96.21 - Acute and chronic respiratory failure with hypoxia (2) Symptomatic bradycardia ICD Code: R00.1 - Bradycardia, unspecified Status: Acute (3) Morbid obesity with BMI of 50.0-59.9, adult ICD Code: E66.01 - Morbid (severe) obesity due to excess calories; Z68.43 - Body mass index (BMI) 50-59.9 , adult Status: Acute (4) Atrial fibrillation ICD Code: I48.91 - Unspecified atrial fibrillation Status: Chronic (5) CKD (chronic kidney disease), stage III ICD Code: N18.3 - Chronic kidney disease, stage 3 (moderate) Status: Chronic (6) Chronic systolic CHF (congestive heart failure) ICD Code: I50.22 - Chronic systolic (congestive) heart failure Status: Chronic Assessment and Plan Plan: 1. PRVC ventilator mode. 2. PEEP 5. 3. CVL - CVP 8-10 4. Dopamine to keep pulse > 60. 5. Taper off Levophed to keep MAP > 65. 6. Follow CVP. 7. Adjust cardizem and lopessor per cardiology. 8. Follow lytes. 9. BNP. 10. Hold anticoagulation another day. Overall impression: Patient is critically ill with chronic systolic heart failure and impaired respiratory status. Now on mechanical ventilation and requiring inotropic support. Critical care 44 mins Sohail Ma MD Nov 17, 2017 15:18
[2017-11-17] MEDS: MORPHINE SULFATE 2 MG/ML INJ IV PUSH PRN ×2 (18:14→21:19)
[2017-11-17] MEDS: APIXABAN 5 MG TABLET PO SCH (21:00)
[2017-11-17] MEDS: DILTIAZEM HCL 60 MG TAB NG SCH (23:38)
[2017-11-18] VITALS (12 sets, daily range): BP systolic 98–125; BP diastolic 52–91; PULSE 54–81; RESP 7–21; TEMP 98.4–99.5; O2SAT 93–100
[2017-11-18] MEDS: MORPHINE SULFATE 2 MG/ML INJ IV PUSH PRN ×3 (01:39→20:45)
[2017-11-18] MEDS: CHLORHEXIDINE GLUCONATE 2 % 1 PACK (2 CLOTHS) TOP SCH (02:49)
[2017-11-18 05:28] LABS: AUTOMATED NEUTROPHIL # 10.3 TH/MM3 (1.8-7.7); BASOPHIL % 0.3 % (0.0-2.0); EOSINOPHIL # 0.1 TH/MM3 (0-0.4); EOSINOPHIL % 0.4 % (0.0-4.0); HEMATOCRIT 39.2 % (39.0-51.0); HEMOGLOBIN 12.4 GM/DL (13.0-17.0); LYMPH % 7.7 % (9.0-44.0); LYMPHOCYTE # 0.9 TH/MM3 (1.0-4.8); MEAN CELL VOLUME 91.9 FL (80.0-100.0); MEAN CORPUSCULAR HGB CONC 31.5 % (32.0-36.0); MEAN PLATELET VOLUME 11.7 FL (7.0-11.0); MONO % 7.9 % (0.0-8.0); NEUT % 83.7 % (16.0-70.0); PLATELET COUNT 115 TH/MM3 (150-450); RED BLOOD COUNT 4.27 MIL/MM3 (4.50-5.90); RED CELL DISTRIBUTION WIDTH 15.1 % (11.6-17.2); WHITE BLOOD COUNT 12.3 TH/MM3 (4.0-11.0)
[2017-11-18 05:50] LABS: ALBUMIN 3.4 GM/DL (3.4-5.0); BICARBONATE 30.4 MEQ/L (21.0-32.0); BLOOD UREA NITROGEN 36 MG/DL (7-18); CALCIUM 8.2 MG/DL (8.5-10.1); CHLORIDE 108 MEQ/L (98-107); CREATININE 2.42 MG/DL (0.60-1.30); GLUCOSE,RANDOM 124 MG/DL (74-106); SODIUM (NA) 143 MEQ/L (136-145)
[2017-11-18] MEDS: DILTIAZEM HCL 60 MG TAB NG SCH (06:00)
[2017-11-18 06:05] LABS: ALKALINE PHOSPHATASE 143 U/L (45-117); ALT (GPT) 3272 U/L (12-78); AST (GOT) 1893 U/L (15-37); TOTAL BILIRUBIN ADULT 1.3 MG/DL (0.2-1.0); TOTAL PROTEIN 6.7 GM/DL (6.4-8.2); TROPONIN I 0.05 NG/ML (0.02-0.05)
[2017-11-18] MEDS: SODIUM BICARBONATE 8.4% INJ 150 MEQ in WATER STERILE FOR INJ 850 ML IV SCH (07:26)
[2017-11-18] MEDS: DOCUSATE SODIUM 50 MG/SENNA 8.6 MG TAB PO SCH ×2 (07:35→20:43)
[2017-11-18] MEDS: FAMOTIDINE 20 MG/2 ML VIAL IV PUSH SCH ×2 (07:35→20:42)
[2017-11-18] MEDS: CHLORHEXIDINE 0.12% (ORAL KIT) 15 ML CUP MT SCH ×2 (07:36→20:42)
[2017-11-18] MEDS: AMIODARONE 200 MG TAB PO SCH (07:36)
[2017-11-18] MEDS: METOPROLOL TARTRATE 100 MG TAB PO SCH ×2 (07:36→20:43)
[2017-11-18] MEDS: TOPIRAMATE 200 MG TAB PO SCH (07:36)
[2017-11-18] MEDS: SODIUM CHLORIDE 0.9% FLUSH 10 ML FLUSH IV FLUSH SCH ×2 (07:36→20:42)
[2017-11-18] MEDS: APIXABAN 5 MG TABLET PO SCH ×2 (07:36→20:41)
[2017-11-18] MEDS: fentaNYL DRIP 250 ML IV PRN (07:37)
--- NOTE | 2017-11-18 09:45 | PD.CARD.PN ---
Subjective Subjective Remarks awake, follows commmands, can't speak with trach, no complaints Objective Medications Current Medications Medications (Trade) Dose Ordered Sig/Ashok Route Start Time Stop Time Status Last Admin (NS Flush) 2 ml UNSCH PRN IV FLUSH 11/15/17 00:15 (NS Flush) 2 ml BID IV FLUSH 11/15/17 09:00 11/18/17 07:36 (Narcan Inj) 0.4 mg UNSCH PRN IV PUSH 11/15/17 00:15 (Cordarone) 200 mg DAILY PO 11/15/17 09:00 11/18/17 07:36 (Eliquis) 5 mg BID PO 11/15/17 09:00 Future hold 11/15/17 22:33 (Lipitor) 80 mg HS PO 11/15/17 21:00 11/16/17 21:21 (Lopressor) 100 mg Q12H PO 11/15/17 09:00 11/18/17 07:36 (Topamax) 200 mg DAILY PO 11/15/17 09:00 11/18/17 07:36 (Peridex 0.12% Liq) 15 ml BID@08,20 MT 11/16/17 08:00 11/18/17 07:36 Propofol 100 ml @ 4.773 mls/ hr TITRATE PRN IV 11/16/17 07:30 11/17/17 04:17 Fentanyl Citrate 250 ml @ 5 mls/hr TITRATE PRN IV 11/16/17 07:30 11/18/17 07:37 Sodium Bicarbonate 150 meq/Sterile Water 1,000 ml @ 45 mls/hr [id number] IV 11/16/17 09:00 11/18/17 07:26 (Tylenol) 650 mg Q6H PRN PO 11/16/17 09:15 (Morphine Inj) 2 mg Q2H PRN IV PUSH 11/16/17 09:15 11/18/17 01:39 (Pepcid Inj) 10 mg Q12HR IV PUSH 11/16/17 10:00 11/18/17 07:35 (Zofran Inj) 4 mg Q6H PRN IV PUSH 11/16/17 09:15 (Duoneb Neb) 1 ampule Q4HR NEB PRN INH 11/16/17 09:15 Miscellaneous Information 1 Q361D XX 1/13/18 09:15 (Chlorhexidine 2% Cloth) 3 pack Taper DAILY@04 TOP 11/17/17 04:00 11/13/18 03:59 (Chlorhexidine 2% Cloth) 3 pack UNSCH PRN TOP 11/16/17 09:15 (Marilee-Colace) 1 tab BID PO 11/16/17 21:00 11/18/17 07:35 (Milk Of Magnesia Liq) 30 ml Q12H PRN PO 11/16/17 09:15 (Senokot) 17.2 mg Q12H PRN PO 11/16/17 09:15 (Dulcolax Supp) 10 mg DAILY PRN RECTAL 11/16/17 09:15 (Lactulose Liq) 30 ml DAILY PRN PO 11/16/17 09:15 Dopamine HCl/ Dextrose 500 ml @ 18.428 mls/ hr TITRATE PRN IV 11/16/17 20:00 11/17/17 23:39 (Brethine Inj) 1 mg UNSCH PRN SQ 11/16/17 20:00 (Cardizem) 120 mg Q6H NG 11/18/17 00:00 11/17/17 23:38 Vital Signs / I&O Vital Signs Date Time Temp Pulse Resp B/P (MAP) Pulse Ox O2 Delivery O2 Flow Rate FiO2 11/18/17 08:13 97 40 11/18/17 04:00 40 11/18/17 04:00 99.1 81 17 124/91 (102) 97 11/18/17 03:25 96 40 11/18/17 00:30 100 40 11/18/17 00:30 40 11/18/17 00:00 99.3 54 12 118/79 (92) 98 11/17/17 23:39 71 126/58 11/17/17 20:45 99 40 11/17/17 20:00 98.2 92 12 113/71 (85) 100 11/17/17 20:00 40 11/17/17 18:19 12 11/17/17 16:00 98.4 89 14 112/67 (82) 100 11/17/17 12:00 99.0 104 9 134/60 (84) 97 11/17/17 11:00 91 139/59 1/14/18 10:10 99 40 11/17/17 10:02 40 11/17/17 10:02 98 40 11/17/17 09:53 95 T-piece 6.00 40 I/O 11/17/17 11/17/17 11/17/17 11/18/17 11/18/17 11/18/17 07:00 15:00 23:00 07:00 15:00 23:00 Intake Total 350 ml 1500 ml 190 ml 2051 ml Output Total 3100 ml 3550 ml 1100 ml Balance -2750 ml 1500 ml -3360 ml 951 ml IV Total 350 ml 1500 ml 190 ml 2051 ml Output Urine Total 3000 ml 3550 ml 1000 ml Gastric Drainage Total 100 ml 100 ml # Bowel Movements 0 0 Physical Exam s/p emergency trach. intubated, sedated, extreme morbid obesity HEENT: poor dentition Chest: B/L rhonchi CV S1S2 irr/irr (afib on tele on tele) edema trace Laboratory Laboratory Tests Test 11/18/17 05:05 White Blood Count 12.3 TH/MM3 Red Blood Count 4.27 MIL/MM3 Hemoglobin 12.4 GM/DL Hematocrit 39.2 % Mean Corpuscular Volume 91.9 FL Mean Corpuscular Hemoglobin 29.0 PG Mean Corpuscular Hemoglobin Concent 31.5 % Red Cell Distribution Width 15.1 % Platelet Count 115 TH/MM3 Mean Platelet Volume 11.7 FL Neutrophils (%) (Auto) 83.7 % Lymphocytes (%) (Auto) 7.7 % Monocytes (%) (Auto) 7.9 % Eosinophils (%) (Auto) 0.4 % Basophils (%) (Auto) 0.3 % Neutrophils # (Auto) 10.3 TH/MM3 Lymphocytes # (Auto) 0.9 TH/MM3 Monocytes # (Auto) 1.0 TH/MM3 Eosinophils # (Auto) 0.1 TH/MM3 Basophils # (Auto) 0.0 TH/MM3 CBC Comment DIFF FINAL Differential Comment Blood Urea Nitrogen 36 MG/DL Creatinine 2.42 MG/DL Random Glucose 124 MG/DL Total Protein 6.7 GM/DL Albumin 3.4 GM/DL Calcium Level 8.2 MG/DL Alkaline Phosphatase 143 U/L Aspartate Amino Transf (AST/SGOT) 1893 U/L Alanine Aminotransferase (ALT/SGPT) 3272 U/L Total Bilirubin 1.3 MG/DL Sodium Level 143 MEQ/L Potassium Level 4.3 MEQ/L Chloride Level 108 MEQ/L Carbon Dioxide Level 30.4 MEQ/L Anion Gap 5 MEQ/L Troponin I 0.05 NG/ML B-Type Natriuretic Peptide 166 PG/ML Assessment and Plan Problem List: (1) Non-ischemic cardiomyopathy ICD Codes: I42.8 - Other cardiomyopathies (2) Respiratory failure ICD Codes: J96.90 - Respiratory failure, unspecified, unspecified whether with hypoxia or hypercapnia (3) Tachy-janene syndrome ICD Codes: I49.5 - Sick sinus syndrome Plan: janene looks like it was resp related (4) Morbid obesity with BMI of 50.0-59.9, adult ICD Codes: E66.01 - Morbid (severe) obesity due to excess calories; Z68.43 - Body mass index (BMI) 50-59.9 , adult Status: Acute (5) Chronic systolic CHF (congestive heart failure) ICD Codes: I50.22 - Chronic systolic (congestive) heart failure Status: Chronic (6) Poor dentition ICD Codes: K08.9 - Disorder of teeth and supporting structures, unspecified (7) Atrial fibrillation ICD Codes: I48.91 - Unspecified atrial fibrillation Status: Chronic Plan: Cont beta obdulio but stop amio and dilt/ might readd if BP goes up Assessment and Plan Much improved. Has ATN, shock liver improving Olman Mckay MD Nov 18, 2017 09:45
--- NOTE | 2017-11-18 15:42 | HHI.CCPN ---
Subjective Remarks/Hospital Course 57 y/o man with chronic nonischemic cardiomyopathy, EF 20% presents two days ago to ED with a-fib and RVR. Morbid obesity and chronic obesity hypoventilation syndrome. Developed bradycardia requiring atropine this morning , rushed to [facility] where on arrival he is obtunded with agonal respirations. Rate acceptable, depth shallow. Required bag mask ventilation, dopamine and levophed. Unable to intubate despite optic endoscope; proceeded to tracheostomy. Sats maintained > 80% throughout. Initial pH 7.14. 11/17: S/P resuscitation for probable hypercapneic respiratory arrest with bradycardia, hypotension. Has required mechanical ventilation. Perfusion improved after inotropic support instituted, now tapering. Elevated LFTs may reflect period of inadequate perfusion. 11/18: Doing well on T-piece. Resolving shock liver, DENN[place]. Should go home with trach. Objective Vital Signs Date Time Temp Pulse Resp B/P (MAP) Pulse Ox O2 Delivery O2 Flow Rate FiO2 11/18/17 12:00 98.6 65 21 114/57 (76) 96 11/18/17 11:10 T-piece 6.00 40 Intake and Output 11/18/17 11/18/17 11/19/17 08:00 16:00 00:00 Intake Total 2051 ml Output Total 1100 ml Balance 951 ml Result Diagram: 11/18/17 0505 11/18/17 0505 Objective Remarks Head: Normal. Neck: Large, supple, trach site dry with old blood. Lungs: Crackles, no wheezes. Scattered rhonchi. Good anita air movement. Heart: Distant tones, irreg irreg, + JVD Extremities: Bilateral brawny induration lower legs, 2+ edema. Neuro: Withdraws 4 limbs to stimulation. Will open eyes. Pupils 3 mm, reactive. Nods head to questions. A/P Problem List: (1) Acute on chronic respiratory failure with hypoxemia ICD Code: J96.21 - Acute and chronic respiratory failure with hypoxia (2) Symptomatic bradycardia ICD Code: R00.1 - Bradycardia, unspecified Status: Acute (3) Morbid obesity with BMI of 50.0-59.9, adult ICD Code: E66.01 - Morbid (severe) obesity due to excess calories; Z68.43 - Body mass index (BMI) 50-59.9 , adult Status: Acute (4) Atrial fibrillation ICD Code: I48.91 - Unspecified atrial fibrillation Status: Chronic (5) CKD (chronic kidney disease), stage III ICD Code: N18.3 - Chronic kidney disease, stage 3 (moderate) Status: Chronic (6) Chronic systolic CHF (congestive heart failure) ICD Code: I50.22 - Chronic systolic (congestive) heart failure Status: Chronic Assessment and Plan Plan: 1. CPAP hs. 2. T-piece daily. 4. Taper off Dopamine to keep pulse > 60. 5. Taper off Levophed to keep MAP > 65. 8. Follow lytes. Overall impression: Patient with chronic systolic heart failure and impaired respiratory status. Tolerating T-piece. Sohail Ma MD Nov 18, 2017 15:42
[2017-11-18] MEDS: ATORVASTATIN 80 MG TAB PO SCH (20:42)
[2017-11-19] VITALS (11 sets, daily range): BP systolic 116–166; BP diastolic 56–85; PULSE 80–107; RESP 11–18; TEMP 97.9–100.4; O2SAT 94–100
[2017-11-19] MEDS: CHLORHEXIDINE GLUCONATE 2 % 1 PACK (2 CLOTHS) TOP SCH (04:00)
[2017-11-19] MEDS: MORPHINE SULFATE 2 MG/ML INJ IV PUSH PRN ×3 (04:56→16:00)
[2017-11-19] MEDS: ACETAMINOPHEN 325 MG TAB PO PRN (04:57)
[2017-11-19 06:36] LABS: ALBUMIN 2.6 GM/DL (3.4-5.0); ALKALINE PHOSPHATASE 124 U/L (45-117); ALT (GPT) 2145 U/L (12-78); AST (GOT) 814 U/L (15-37); BICARBONATE 27.7 MEQ/L (21.0-32.0); BLOOD UREA NITROGEN 32 MG/DL (7-18); CALCIUM 7.8 MG/DL (8.5-10.1); CHLORIDE 110 MEQ/L (98-107); CREATININE 1.95 MG/DL (0.60-1.30); GLOMERULAR FILTRATION RATE 43 ML/MIN (>89); GLUCOSE,RANDOM 66 MG/DL (74-106); SODIUM (NA) 145 MEQ/L (136-145); TOTAL BILIRUBIN ADULT 1.2 MG/DL (0.2-1.0); TOTAL PROTEIN 5.7 GM/DL (6.4-8.2)
[2017-11-19] MEDS: CHLORHEXIDINE 0.12% (ORAL KIT) 15 ML CUP MT SCH ×2 (08:00→20:10)
[2017-11-19] MEDS: fentaNYL DRIP 250 ML IV PRN ×2 (08:00→20:09)
--- NOTE | 2017-11-19 08:24 | PD.CARD.PN ---
Subjective Subjective Remarks Denies CP, dizziness, palpitations, dyspnea. Objective Medications Item Value Date Time Metoprolol 100 mg 11/15/17899 Tartrate Q12H/PO 11/18/172042 (Lopressor) Apixaban 5 mg 11/15/17 0900 (Eliquis) BID/PO Current Medications Medications (Trade) Dose Ordered Sig/Ashok Route Start Time Stop Time Status Last Admin (NS Flush) 2 ml UNSCH PRN IV FLUSH 11/15/17 00:15 (NS Flush) 2 ml BID IV FLUSH 11/15/17 09:00 11/18/17 20:42 (Narcan Inj) 0.4 mg UNSCH PRN IV PUSH 11/15/17 00:15 (Eliquis) 5 mg BID PO 11/15/17 09:00 Future hold 11/15/17 22:33 (Lipitor) 80 mg HS PO 11/15/17 21:00 11/18/17 20:42 (Lopressor) 100 mg Q12H PO 11/15/17 09:00 11/18/17 20:43 (Topamax) 200 mg DAILY PO 11/15/17 09:00 11/18/17 07:36 (Peridex 0.12% Liq) 15 ml BID@08,20 MT 11/16/17 08:00 11/18/17 20:42 Fentanyl Citrate 250 ml @ 5 mls/hr TITRATE PRN IV 11/16/17 07:30 11/18/17 07:37 (Tylenol) 650 mg Q6H PRN PO 11/16/17 09:15 11/19/17 04:57 (Morphine Inj) 2 mg Q2H PRN IV PUSH 11/16/17 09:15 11/19/17 04:56 (Pepcid Inj) 10 mg Q12HR IV PUSH 11/16/17 10:00 11/18/17 20:42 (Zofran Inj) 4 mg Q6H PRN IV PUSH 11/16/17 09:15 (Duoneb Neb) 1 ampule Q4HR NEB PRN INH 11/16/17 09:15 Miscellaneous Information 1 Q361D XX 11/16/17 09:15 (Chlorhexidine 2% Cloth) 3 pack Taper DAILY@04 TOP 11/17/17 04:00 11/13/18 03:59 (Chlorhexidine 2% Cloth) 3 pack UNSCH PRN TOP 11/16/17 09:15 (Marilee-Colace) 1 tab BID PO 11/16/17 21:00 11/18/17 20:43 (Milk Of Magnesia Liq) 30 ml Q12H PRN PO 11/16/17 09:15 (Senokot) 17.2 mg Q12H PRN PO 11/16/17 09:15 (Dulcolax Supp) 10 mg DAILY PRN RECTAL 11/16/17 09:15 (Lactulose Liq) 30 ml DAILY PRN PO 11/16/17 09:15 (Brethine Inj) 1 mg UNSCH PRN SQ 11/16/17 20:00 Vital Signs / I&O Vital Signs Date Time Temp Pulse Resp B/P (MAP) Pulse Ox O2 Delivery O2 Flow Rate FiO2 11/19/17 04:00 40 11/19/17 04:00 100.4 92 18 160/72 (101) 100 11/19/17 04:00 100 35 11/19/17 01:15 96 40 11/19/17 00:00 99.7 80 18 128/72 (90) 94 11/19/17 00:00 40 11/18/17 22:24 100 40 11/18/17 20:00 99.5 78 7 124/59 (80) 100 11/18/17 20:00 40 11/18/17 19:48 100 40 11/18/17 16:00 98.4 73 14 125/56 (79) 93 11/18/17 12:00 98.6 65 21 114/57 (76) 96 11/18/17 11:10 95 T-piece 6.00 40 I/O 11/18/17 11/18/17 11/18/17 11/19/17 11/19/17 11/19/17 07:00 15:00 23:00 07:00 15:00 23:00 Intake Total 2051 ml 1959 ml 100 ml 120 ml Output Total 1100 ml 1000 ml 1200 ml Balance 951 ml 1959 ml -900 ml -1080 ml IV Total 2051 ml 1959 ml Tube Irrigant 100 ml 120 ml Output Urine Total 1000 ml 1000 ml 1200 ml Gastric Drainage Total 100 ml # Bowel Movements 0 0 Physical Exam GENERAL: Well developed, well nourished. No acute distress. HEENT: Jugular venous pressure difficult to assess. CHEST: Lungs clear to auscultation anteriorly. CARDIAC: Irregular rate and rhythm without S3, S4, or murmur. ABDOMEN: Soft, nontender, no hepatosplenomegaly. Bowel sounds present. EXTREMITIES: No clubbing, cyanosis, or edema. Laboratory Laboratory Tests Test 11/19/17 05:25 Blood Urea Nitrogen 32 MG/DL Creatinine 1.95 MG/DL Random Glucose 66 MG/DL Total Protein 5.7 GM/DL Albumin 2.6 GM/DL Calcium Level 7.8 MG/DL Alkaline Phosphatase 124 U/L Aspartate Amino Transf (AST/SGOT) 814 U/L Alanine Aminotransferase (ALT/SGPT) 2145 U/L Total Bilirubin 1.2 MG/DL Sodium Level 145 MEQ/L Potassium Level 3.7 MEQ/L Chloride Level 110 MEQ/L Carbon Dioxide Level 27.7 MEQ/L Anion Gap 7 MEQ/L Estimat Glomerular Filtration Rate 43 ML/MIN Assessment and Plan Problem List: (1) Non-ischemic cardiomyopathy ICD Codes: I42.8 - Other cardiomyopathies Status: Chronic Plan: EF 20% by echo 06/2017. Overall clinically, hemodynamically stable. Negative fluid balance past few days. REC continue beta obdulio, no FABRICE-I with his renal insufficiency consider repeat CXR, additional diuresis if persistent pulmonary edema will f/u as needed (2) Paroxysmal atrial fibrillation ICD Codes: I48.0 - Paroxysmal atrial fibrillation Status: Acute Plan: Remains in atrial fibrillation, overall acceptable HR control on metoprolol. Thromboembolic risk high, continues on apixaban. Rec continue same. (3) Tachy-janene syndrome ICD Codes: I49.5 - Sick sinus syndrome Status: Acute Plan: Stable rhythm status. Remains in atrial fibrillation with controlled HR' s. No further bradycardia. Continue same. Code Status full code Discussed Condition With patient Jeff Jordan MD Nov 19, 2017 08:23
[2017-11-19] MEDS: SODIUM CHLORIDE 0.9% FLUSH 10 ML FLUSH IV FLUSH SCH ×2 (08:33→21:00)
[2017-11-19] MEDS: FAMOTIDINE 20 MG/2 ML VIAL IV PUSH SCH ×2 (08:33→21:50)
[2017-11-19] MEDS: DOCUSATE SODIUM 50 MG/SENNA 8.6 MG TAB PO SCH ×2 (08:34→20:10)
[2017-11-19] MEDS: METOPROLOL TARTRATE 100 MG TAB PO SCH ×2 (08:34→20:09)
[2017-11-19] MEDS: APIXABAN 5 MG TABLET PO SCH ×2 (08:34→20:09)
[2017-11-19] MEDS: TOPIRAMATE 200 MG TAB PO SCH (08:34)
[2017-11-19] MEDS: RESP: ALBUTEROL 2.5 MG/IPRATROPIUM 0.5 MG NEB (PRN) INH (08:49)
[2017-11-19] MEDS: FUROSEMIDE 40 MG/4 ML VIAL IV PUSH SCH (11:15)
--- NOTE | 2017-11-19 11:15 | HHI.CCPN ---
Subjective Remarks/Hospital Course 57 y/o man with chronic nonischemic cardiomyopathy, EF 20% presents two days ago to ED with a-fib and RVR. Morbid obesity and chronic obesity hypoventilation syndrome. Developed bradycardia requiring atropine this morning , rushed to [facility] where on arrival he is obtunded with agonal respirations. Rate acceptable, depth shallow. Required bag mask ventilation, dopamine and levophed. Unable to intubate despite optic endoscope; proceeded to tracheostomy. Sats maintained > 80% throughout. Initial pH 7.14. 11/17: S/P resuscitation for probable hypercapneic respiratory arrest with bradycardia, hypotension. Has required mechanical ventilation. Perfusion improved after inotropic support instituted, now tapering. Elevated LFTs may reflect period of inadequate perfusion. 11/18: Doing well on T-piece. Resolving shock liver, [place]. Should go home with trach. 11/19: Fatigues on CPAP/T-piece. Will need LTAC. Objective Vital Signs Date Time Temp Pulse Resp B/P (MAP) Pulse Ox O2 Delivery O2 Flow Rate FiO2 11/19/17 10:50 100 T-piece 6.00 40 11/19/17 04:00 100.4 92 18 160/72 (101) Intake and Output 11/19/17 11/19/17 11/20/17 08:00 16:00 00:00 Intake Total 120 ml Output Total 1200 ml Balance -1080 ml Result Diagram: 11/18/17 0505 11/19/17 0525 Objective Remarks Head: Normal. Neck: Large, supple, trach site dry. Lungs: No crackles, no wheezes. Few rhonchi. Good anita air movement. Heart: Distant tones, irreg irreg, + JVD Extremities: Bilateral brawny induration lower legs, 2+ edema. Neuro: Withdraws 4 limbs to stimulation. Will open eyes. Pupils 3 mm, reactive. Nods head to questions. A/P Problem List: (1) Acute on chronic respiratory failure with hypoxemia ICD Code: J96.21 - Acute and chronic respiratory failure with hypoxia (2) Symptomatic bradycardia ICD Code: R00.1 - Bradycardia, unspecified Status: Acute (3) Morbid obesity with BMI of 50.0-59.9, adult ICD Code: E66.01 - Morbid (severe) obesity due to excess calories; Z68.43 - Body mass index (BMI) 50-59.9 , adult Status: Acute (4) Atrial fibrillation ICD Code: I48.91 - Unspecified atrial fibrillation Status: Chronic (5) CKD (chronic kidney disease), stage III ICD Code: N18.3 - Chronic kidney disease, stage 3 (moderate) Status: Chronic (6) Chronic systolic CHF (congestive heart failure) ICD Code: I50.22 - Chronic systolic (congestive) heart failure Status: Chronic Assessment and Plan Plan: 1. PRVC hs. 2. CPAP/T-piece daily. 4. Taper off Dopamine to keep pulse > 60. 5. Taper off Levophed to keep MAP > 65. 8. Follow lytes. 9. Add diuretic. 10. Repeat CXR. Overall impression: Patient with chronic systolic heart failure and impaired respiratory status. Not tolerating T-piece. Needs LTAC, consider permanent trach. Sohail Ma MD Nov 19, 2017 11:15
--- NOTE | 2017-11-19 11:55 | RADRPT ---
EXAM DATE/TIME: 11/19/2017 11:33 [facility] COMPARISON: CHEST SINGLE AP, November 16, 2017, 9:42. INDICATIONS : Hypoxia MEDICAL HISTORY : Hypertension. Hypercholesterolemia. Congestive heart failure. A-fib SURGICAL HISTORY : None. ENCOUNTER: Subsequent ACUITY: 3 days PAIN SCORE: Non-responsive. LOCATION: chest FINDINGS: Nasogastric tube again noted passing through the midline into the stomach. Right subclavian venous ca theter place as well as tracheostomy. Again appreciated is left ventricular borderline cardiomegaly. Basilar opacities have improved essentially clear on the right and minimal residual on the left with no pneumothorax. CONCLUSION: Improved basilar opacities essentially cleared on the right and minimal residual on the left. Efrain Dimas MD on November 19, 2017 at 11:50 Board Certified Radiologist. This report was verified electronically.
[2017-11-19] MEDS: ATORVASTATIN 80 MG TAB PO SCH (20:10)
[2017-11-20] VITALS (15 sets, daily range): BP systolic 132–156; BP diastolic 64–73; PULSE 81–124; RESP 15–22; TEMP 98.7–100; O2SAT 97–100
[2017-11-20] MEDS: RESP: ALBUTEROL 2.5 MG/IPRATROPIUM 0.5 MG NEB (PRN) INH (03:50)
[2017-11-20] MEDS: CHLORHEXIDINE GLUCONATE 2 % 1 PACK (2 CLOTHS) TOP SCH (04:00)
[2017-11-20] MEDS: MORPHINE SULFATE 2 MG/ML INJ IV PUSH PRN (05:11)
[2017-11-20 06:23] LABS: BICARBONATE 27.2 MEQ/L (21.0-32.0); CALCIUM 8.3 MG/DL (8.5-10.1); CREATININE 1.86 MG/DL (0.60-1.30)
[2017-11-20] MEDS: CHLORHEXIDINE 0.12% (ORAL KIT) 15 ML CUP MT SCH ×2 (08:46→20:00)
[2017-11-20] MEDS: FAMOTIDINE 20 MG/2 ML VIAL IV PUSH SCH (09:07)
[2017-11-20] MEDS: SODIUM CHLORIDE 0.9% FLUSH 10 ML FLUSH IV FLUSH SCH ×2 (09:07→21:00)
[2017-11-20] MEDS: TOPIRAMATE 200 MG TAB PO SCH (09:08)
[2017-11-20] MEDS: FUROSEMIDE 40 MG/4 ML VIAL IV PUSH SCH ×2 (09:08→17:55)
[2017-11-20] MEDS: APIXABAN 5 MG TABLET PO SCH ×2 (09:08→19:58)
[2017-11-20] MEDS: METOPROLOL TARTRATE 100 MG TAB PO SCH ×2 (09:08→19:56)
[2017-11-20] MEDS: DOCUSATE SODIUM 50 MG/SENNA 8.6 MG TAB PO SCH ×2 (09:16→19:56)
--- NOTE | 2017-11-20 10:47 | HHI.CCPN ---
Subjective Remarks/Hospital Course 57 y/o man with chronic nonischemic cardiomyopathy, EF 20% presents two days ago to ED with a-fib and RVR. Morbid obesity and chronic obesity hypoventilation syndrome. Developed bradycardia requiring atropine this morning , rushed to [facility] where on arrival he is obtunded with agonal respirations. Rate acceptable, depth shallow. Required bag mask ventilation, dopamine and levophed. Unable to intubate despite optic endoscope; proceeded to tracheostomy. Sats maintained > 80% throughout. Initial pH 7.14. 11/17: S/P resuscitation for probable hypercapneic respiratory arrest with bradycardia, hypotension. Has required mechanical ventilation. Perfusion improved after inotropic support instituted, now tapering. Elevated LFTs may reflect period of inadequate perfusion. 11/18: Doing well on T-piece. Resolving shock liver, [place]. Should go home with trach. 11/19: Fatigues on CPAP/T-piece. Will need LTAC. 11/20: stable. still volume overloaded by clinical exam. will need LTAC placement. Objective Vital Signs Date Time Temp Pulse Resp B/P (MAP) Pulse Ox O2 Delivery O2 Flow Rate FiO2 11/20/17 10:00 98 11/20/17 08:00 28 11/20/17 08:00 99.8 15 132/64 (86) 98 11/20/17 03:51 Ventilator 11/19/17 10:50 6.00 Intake and Output 11/20/17 11/20/17 11/21/17 08:00 16:00 00:00 Output Total 2000 ml Balance -2000 ml Result Diagram: 11/18/17 0505 11/20/17 0545 Objective Remarks Head: Normal. Neck: Large, supple, trach site dry. Lungs: on vent with full support. Good anita air movement. Heart: Distant tones, irreg irreg, + JVD Extremities: Bilateral brawny induration lower legs, 2+ edema. Neuro: Withdraws 4 limbs to stimulation. Will open eyes. Pupils 3 mm, reactive. Nods head to questions. A/P Problem List: (1) Acute on chronic respiratory failure with hypoxemia ICD Code: J96.21 - Acute and chronic respiratory failure with hypoxia (2) Symptomatic bradycardia ICD Code: R00.1 - Bradycardia, unspecified Status: Acute (3) Morbid obesity with BMI of 50.0-59.9, adult ICD Code: E66.01 - Morbid (severe) obesity due to excess calories; Z68.43 - Body mass index (BMI) 50-59.9 , adult Status: Acute (4) Atrial fibrillation ICD Code: I48.91 - Unspecified atrial fibrillation Status: Chronic (5) CKD (chronic kidney disease), stage III ICD Code: N18.3 - Chronic kidney disease, stage 3 (moderate) Status: Chronic (6) Chronic systolic CHF (congestive heart failure) ICD Code: I50.22 - Chronic systolic (congestive) heart failure Status: Chronic Assessment and Plan Acute hypoxic and hypercarbic respiratory failure Acute Systolic CHF exacerbation Acute kidney injury- resolving Acute intravascular volume overload Plan: 1. PRVC hs. 2. CPAP/T-piece daily. 3. continue aggressive diuresis 4. Follow lytes. 5. TF 6. OOB/PT/OT 7. trend Cr. strict I/Os 8. SCDs, pepcid to PO, apixiban Overall impression: Patient with chronic systolic heart failure and impaired respiratory status. Not tolerating T-piece. Needs LTAC, consider permanent trach. stable for transfer to LTAC. increase aggressive diuresis. continue to wean. PT consults. Mamadou Mcgowan MD Nov 20, 2017 10:47
[2017-11-20] MEDS ORDERED: PILL SPLITTER OTHER PRN (16:00)
[2017-11-20] MEDS: FAMOTIDINE 20 MG TAB NG SCH (19:56)
[2017-11-20] MEDS: ATORVASTATIN 80 MG TAB PO SCH (19:57)
[2017-11-21] VITALS (18 sets, daily range): BP systolic 109–136; BP diastolic 55–87; PULSE 99–129; RESP 15–16; TEMP 99.6–100.8; O2SAT 90–100
[2017-11-21] MEDS: FUROSEMIDE 40 MG/4 ML VIAL IV PUSH SCH ×3 (00:29→18:10)
[2017-11-21] MEDS: CHLORHEXIDINE GLUCONATE 2 % 1 PACK (2 CLOTHS) TOP SCH (04:00)
[2017-11-21] MEDS: SODIUM CHLORIDE 0.9% FLUSH 10 ML FLUSH IV FLUSH SCH ×2 (10:00→20:28)
[2017-11-21] MEDS: CHLORHEXIDINE 0.12% (ORAL KIT) 15 ML CUP MT SCH ×2 (10:01→20:00)
[2017-11-21] MEDS: DOCUSATE SODIUM 50 MG/SENNA 8.6 MG TAB PO SCH ×2 (10:01→20:27)
[2017-11-21] MEDS: TOPIRAMATE 200 MG TAB PO SCH (10:01)
[2017-11-21] MEDS: APIXABAN 5 MG TABLET PO SCH ×2 (10:02→21:00)
[2017-11-21] MEDS: METOPROLOL TARTRATE 100 MG TAB PO SCH ×2 (10:02→20:27)
[2017-11-21] MEDS: FAMOTIDINE 20 MG TAB NG SCH (10:02)
[2017-11-21] MEDS: ACETAMINOPHEN 325 MG TAB PO PRN (13:10)
--- NOTE | 2017-11-21 17:03 | HHI.CCPN ---
Subjective Remarks/Hospital Course 57 y/o man with chronic nonischemic cardiomyopathy, EF 20% presents two days ago to ED with a-fib and RVR. Morbid obesity and chronic obesity hypoventilation syndrome. Developed bradycardia requiring atropine this morning , rushed to [facility] where on arrival he is obtunded with agonal respirations. Rate acceptable, depth shallow. Required bag mask ventilation, dopamine and levophed. Unable to intubate despite optic endoscope; proceeded to tracheostomy. Sats maintained > 80% throughout. Initial pH 7.14. 11/17: S/P resuscitation for probable hypercapneic respiratory arrest with bradycardia, hypotension. Has required mechanical ventilation. Perfusion improved after inotropic support instituted, now tapering. Elevated LFTs may reflect period of inadequate perfusion. 11/18: Doing well on T-piece. Resolving shock liver, [place]. Should go home with trach. 11/19: Fatigues on CPAP/T-piece. Will need LTAC. 11/20: stable. still volume overloaded by clinical exam. will need LTAC placement. SUBJECTIVE: 11/21: Tmax 1.3. Currently 99.9. Remains on PRvC ventilation. NG tube is been resumed. Remains on furosemide 40 mg IV 3 times daily. Heart rate slightly tachycardic Objective Vital Signs Date Time Temp Pulse Resp B/P (MAP) Pulse Ox O2 Delivery O2 Flow Rate FiO2 11/21/17 15:17 96 40 11/21/17 14:00 112 11/21/17 12:00 99.9 15 135/87 (103) 11/20/17 03:51 Ventilator 11/19/17 10:50 6.00 Intake and Output 11/21/17 11/21/17 11/22/17 08:00 16:00 00:00 Output Total 3000 ml Balance -3000 ml Result Diagram: 11/18/17 0505 11/20/17 0545 Other Results Microbiology Date/Time Source Procedure Growth Status 11/14/17 22:04 Nasal Washing Influenza Types A,B Antigen (MELVIN) - Final NEGATIVE FOR FLU A AND B ANTIGEN.... Complete Imaging Last Impressions Chest X-Ray 11/19/17 0000 Signed Impressions: Service Date/Time: Sunday, November 19, 2017 11:33 - CONCLUSION: Improved basilar opacities essentially cleared on the right and minimal residual on the left. Efrain Dimas MD Abdomen X-Ray 11/16/17 0000 Signed Impressions: Service Date/Time: Thursday, November 16, 2017 09:53 - CONCLUSION: Nasogastric tube tip in the region of the distal stomach. Jose Bruno MD Objective Remarks GENERAL: 57-year-old male currently status post tracheostomy SKIN: Warm and dry. HEAD: Atraumatic. Normocephalic. EYES: Pupils equal and round. No scleral icterus. No injection or drainage. ENT: No nasal bleeding or discharge. Mucous membranes pink and moist. NECK: Trachea midline.+ JVD. CARDIOVASCULAR: Tachycardia, IR. S1, S2 no S4. Distant. RESPIRATORY: Minutes less distended breath sounds throughout. GASTROINTESTINAL: Abdomen obese, soft. Hypoactive bowel sounds appreciated MUSCULOSKELETAL: Extremities with bilateral brawny induration lower legs, 2+ edema NEUROLOGICAL: Awake and alert. No obvious cranial nerve deficits. Motor is moving all 4 extremities upper and lower. Generalized weakness. A/P Assessment and Plan Neuro/Psych: Seizure disorder NOS Cardiac arrest x2 without evidence of anoxic injury Acetaminophen 650 mg by tube every 6 hours when necessary fever/pain 1-2 Oxycodone 5 mg by tube daily 4 hours. Pain 3-10 Morphine sulfate 2 mg IV every 2 hours when necessary breakthrough pain No evidence of anoxic brain injury. Following commands 4. Goal of RA SS -0. Currently on topiramate 200 mg by mouth daily for underlying seizure disorder CV: History of Cardiac arrest x2 (PEA) Nonischemic cardiomyopathy Ejection fraction 15-20% echocardiogram 06/20 Atrial fibrillation with RVR Chronic systolic heart failure Pulmonary hypertension History of chronic atrial fibrillation Hypertension Hospitalization with symptomatically bradycardia 2-D echocardiogram 06/20 revealed EF 20%. Dilated LV/RV. Moderate MR/TR. Pulmonary arterial pressures 50-60 mmHg. Cardiac catheterization 2015 revealed 50% LAD stenosis otherwise unremarkable Holding home medications amiodarone 200 mg by mouth daily Continue atorvastatin 80 mg by mouth daily for dyslipidemia Currently on metoprolol 100 mg by mouth twice a day per cardiology's recommendations Diuresis with furosemide 40 mill grams IV every 8 hours. Troponin peaked at 0.49. Downward trending. Followed by Dr. Jordan/cardiology Continue Apixaban 5 mg twice a day Resp: Acute hypoxic and hypercapnic respiratory failure Anterior airway Likely CHINO not on CPAP PRVC 14/550/25/5/40, Ventilator bundle Albuterol/ipratropium aerosols every 6 hours with albuterol every 2 hours as needed dyspnea. Temp CPAP trials daily. Chest x-ray ordered 11/22 a.m. s/p Tracheostomy by Dr. Ma Difficult intubation in CT 06/27/17 GI: Constipation Elevated BMI Nepro initiated today with goal 55 cc an hour cc an hour goal. Resume tube feeds after placing NGT Lansoprazole 30 mg by tube daily for GI prophylaxis Docusate sodium/senna 1 tablet twice a day for bowel regimen. Add polyethylene glycol and lactulose today : Anderson catheter for accurate I's and O's in a critically ill patient Endo: Diabetes mellitus Sliding-scale insulin/moderate regimen with Accu-Cheks every 6 hours to maintain euglycemia Renal: Right renal cyst Chronic kidney disease stage IIIa Creatinine slowly trending downward Monitor urine output Accurate I's and O's Check BMP in a.m. Heme: Chronic Apixaban use Resumed 5 mg twice a day apixaban on 06/22 Follow-up CBC in AM on trend ID: sputum culture, blood cultures 2 and UA today Currently not on empiric antibiotics MSK: PT evaluate and treat FEN: Replace electrolytes as clinically indicated. Access Utilize peripheral IV. Central line if indicated Prophylaxis - GI -lansoprazole DVT - SCD/Apixaban Level II follow-up Aung Grossman MD Nov 21, 2017 17:03
[2017-11-21] MEDS ORDERED: ACETAMINOPHEN 650 MG/20.3 ML UDC NG PRN (17:15)
[2017-11-21] MEDS ORDERED: GLUCAGON 1 MG/ML VIAL OTHER PRN (17:15)
[2017-11-21] MEDS ORDERED: DEXTROSE 50% IN WATER 50 ML VIAL(D50) IV PUSH PRN (17:15)
[2017-11-21] MEDS ORDERED: SODIUM CHLOR 0.9% 1000 ML INJ 1,000 ML IV SCH (17:30)
[2017-11-21] MEDS ORDERED: METHYLNALTREXONE BROMIDE 12 MG/0.6 ML VIAL SQ ONE ×2 (17:30→21:15)
[2017-11-21] MEDS: INSULIN NovoLIN REGULAR SUPPLEMENTAL SCALE SQ SCH ×2 (18:00→23:47)
[2017-11-21] MEDS: LACTULOSE SYRUP 20 GM/30 ML CUP NG SCH ×2 (18:41→20:27)
[2017-11-21] MEDS: RESP: ALBUTEROL 2.5 MG/IPRATROPIUM 0.5 MG NEB (SCH) NEB (19:43)
[2017-11-21] MEDS: ATORVASTATIN 80 MG TAB PO SCH (20:27)
[2017-11-21] MEDS: POLYETHYLENE GLYCOL 17 GM PKG NG SCH (20:27)
[2017-11-21] MEDS: METOPROLOL TARTRATE 5 MG/5 ML VIAL IV PUSH PRN (20:28)
[2017-11-21] MEDS: oxyCODONE HCL ORAL CONC 5 MG/0.25 ML SYRINGE NG PRN (20:28)
[2017-11-21] MEDS: ARTIFICIAL TEARS OPTH SOLN 15 ML BTL EACH EYE SCH (21:34)
[2017-11-22] VITALS (19 sets, daily range): BP systolic 95–127; BP diastolic 58–73; PULSE 97–158; RESP 15–32; TEMP 98.3–99.7; O2SAT 93–99
[2017-11-22] MEDS: FUROSEMIDE 40 MG/4 ML VIAL IV PUSH SCH ×3 (01:00→16:59)
[2017-11-22] MEDS: oxyCODONE HCL ORAL CONC 5 MG/0.25 ML SYRINGE NG PRN ×3 (02:53→16:59)
[2017-11-22] MEDS: METOPROLOL TARTRATE 5 MG/5 ML VIAL IV PUSH PRN (03:00)
[2017-11-22] MEDS: CHLORHEXIDINE GLUCONATE 2 % 1 PACK (2 CLOTHS) TOP SCH (03:55)
[2017-11-22] MEDS: RESP: ALBUTEROL 2.5 MG/IPRATROPIUM 0.5 MG NEB (SCH) NEB ×4 (04:46→19:24)
[2017-11-22] MEDS: ARTIFICIAL TEARS OPTH SOLN 15 ML BTL EACH EYE SCH ×3 (05:10→21:33)
[2017-11-22] MEDS: INSULIN NovoLIN REGULAR SUPPLEMENTAL SCALE SQ SCH ×3 (06:00→18:00)
[2017-11-22] MEDS: MORPHINE SULFATE 2 MG/ML INJ IV PUSH PRN ×2 (06:02→21:34)
[2017-11-22] MEDS: POLYETHYLENE GLYCOL 17 GM PKG NG SCH ×2 (07:55→21:00)
[2017-11-22] MEDS: LACTULOSE SYRUP 20 GM/30 ML CUP NG SCH ×4 (07:55→21:00)
[2017-11-22] MEDS: DOCUSATE SODIUM 50 MG/SENNA 8.6 MG TAB PO SCH ×2 (07:56→21:00)
[2017-11-22] MEDS: METOPROLOL TARTRATE 100 MG TAB PO SCH ×2 (07:56→21:33)
[2017-11-22] MEDS: APIXABAN 5 MG TABLET PO SCH ×2 (07:56→21:32)
[2017-11-22] MEDS: TOPIRAMATE 200 MG TAB PO SCH (07:56)
[2017-11-22] MEDS: CHLORHEXIDINE 0.12% (ORAL KIT) 15 ML CUP MT SCH ×2 (08:00→20:00)
--- NOTE | 2017-11-22 08:25 | HHI.CCPN ---
Subjective Remarks/Hospital Course 57 y/o man with chronic nonischemic cardiomyopathy, EF 20% presents two days ago to ED with a-fib and RVR. Morbid obesity and chronic obesity hypoventilation syndrome. Developed bradycardia requiring atropine this morning , rushed to [facility] where on arrival he is obtunded with agonal respirations. Rate acceptable, depth shallow. Required bag mask ventilation, dopamine and levophed. Unable to intubate despite optic endoscope; proceeded to tracheostomy. Sats maintained > 80% throughout. Initial pH 7.14. 11/17: S/P resuscitation for probable hypercapneic respiratory arrest with bradycardia, hypotension. Has required mechanical ventilation. Perfusion improved after inotropic support instituted, now tapering. Elevated LFTs may reflect period of inadequate perfusion. 11/18: Doing well on T-piece. Resolving shock liver, [place]. Should go home with trach. 11/19: Fatigues on CPAP/T-piece. Will need LTAC. 11/20: stable. still volume overloaded by clinical exam. will need LTAC placement. SUBJECTIVE: 11/21: Tmax 1.3. Currently 99.9. Remains on PRvC ventilation. NG tube is been resumed. Remains on furosemide 40 mg IV 3 times daily. Heart rate slightly tachycardic 11/22: Pulse intermittently 150. Consistently 120s. Will add PO cardizem and attempt to get better rate control - permanent a-fib. Objective Vital Signs Date Time Temp Pulse Resp B/P (MAP) Pulse Ox O2 Delivery O2 Flow Rate FiO2 11/22/17 07:26 93 40 11/22/17 06:00 119 11/22/17 04:00 98.7 15 127/73 (91) 11/20/17 03:51 Ventilator 11/19/17 10:50 6.00 Intake and Output 11/22/17 11/22/17 11/23/17 08:00 16:00 00:00 Intake Total 1334 ml Output Total 2000 ml Balance -666 ml Result Diagram: 11/18/17 0505 11/20/17 0545 Imaging Last Impressions Chest X-Ray 11/19/17 0000 Signed Impressions: Service Date/Time: Sunday, November 19, 2017 11:33 - CONCLUSION: Improved basilar opacities essentially cleared on the right and minimal residual on the left. Efrain Dimas MD Abdomen X-Ray 11/16/17 0000 Signed Impressions: Service Date/Time: Thursday, November 16, 2017 09:53 - CONCLUSION: Nasogastric tube tip in the region of the distal stomach. Jose Bruno MD Objective Remarks GENERAL: 57-year-old male status post tracheostomy SKIN: Warm and dry. HEAD: Atraumatic. Normocephalic. EYES: Pupils equal and round. No scleral icterus. No injection or drainage. ENT: No nasal bleeding or discharge. Mucous membranes pink and moist. NECK: Trachea midline.+ JVD. CARDIOVASCULAR: Tachycardia, Irreg, irreg. S1, S2 no S4. Distant tones. RESPIRATORY: Minutes less distended breath sounds throughout. GASTROINTESTINAL: Abdomen obese, soft. Active bowel sounds appreciated. No guarding. MUSCULOSKELETAL: Extremities with bilateral brawny induration lower legs, 2+ edema NEUROLOGICAL: Awake and alert. No obvious cranial nerve deficits. Motor is moving all 4 extremities upper and lower. Generalized weakness. A/P Problem List: (1) Acute on chronic respiratory failure with hypoxemia ICD Code: J96.21 - Acute and chronic respiratory failure with hypoxia (2) Symptomatic bradycardia ICD Code: R00.1 - Bradycardia, unspecified Status: Acute (3) Morbid obesity with BMI of 50.0-59.9, adult ICD Code: E66.01 - Morbid (severe) obesity due to excess calories; Z68.43 - Body mass index (BMI) 50-59.9 , adult Status: Acute (4) Atrial fibrillation ICD Code: I48.91 - Unspecified atrial fibrillation Status: Chronic (5) CKD (chronic kidney disease), stage III ICD Code: N18.3 - Chronic kidney disease, stage 3 (moderate) Status: Chronic (6) Chronic systolic CHF (congestive heart failure) ICD Code: I50.22 - Chronic systolic (congestive) heart failure Status: Chronic Assessment and Plan Neuro/Psych: Seizure disorder NOS Cardiac arrest x2 without evidence of anoxic injury Acetaminophen 650 mg by tube every 6 hours when necessary fever/pain 1-2 Oxycodone 5 mg by tube daily 4 hours. Pain 3-10 Morphine sulfate 2 mg IV every 2 hours when necessary breakthrough pain No evidence of anoxic brain injury. Following commands 4. Goal of RA SS -0. Currently on topiramate 200 mg by mouth daily for underlying seizure disorder CV: History of Cardiac arrest x2 (PEA) Nonischemic cardiomyopathy Ejection fraction 15-20% echocardiogram 06/20 Atrial fibrillation with RVR Chronic systolic heart failure Pulmonary hypertension History of chronic atrial fibrillation Hypertension Hospitalization with symptomatically bradycardia 2-D echocardiogram 06/20 revealed EF 20%. Dilated LV/RV. Moderate MR/TR. Pulmonary arterial pressures 50-60 mmHg. Cardiac catheterization 2015 revealed 50% LAD stenosis otherwise unremarkable Holding home medications amiodarone 200 mg by mouth daily Continue atorvastatin 80 mg by mouth daily for dyslipidemia Currently on metoprolol 100 mg by mouth twice a day per cardiology's recommendations Diuresis with furosemide 40 mill grams IV every 8 hours. Troponin peaked at 0.49. Downward trending. Followed by Dr. Jordan/cardiology Continue Apixaban 5 mg twice a day Add cardizem 60 po q6h for better rate control. Resp: Acute hypoxic and hypercapnic respiratory failure Anterior airway Likely CHINO not on CPAP PRVC 14//, Ventilator bundle Albuterol/ipratropium aerosols every 6 hours with albuterol every 2 hours as needed dyspnea. Temp CPAP trials daily. Chest x-ray ordered 11/22 a.m. s/p Tracheostomy by Dr. Ma Difficult intubation in CT 06/27/17 GI: Constipation Elevated BMI Nepro initiated today with goal 55 cc an hour cc an hour goal. Resume tube feeds after placing NGT Lansoprazole 30 mg by tube daily for GI prophylaxis Docusate sodium/senna 1 tablet twice a day for bowel regimen. Add polyethylene glycol and lactulose today : Anderson catheter for accurate I's and O's in a critically ill patient Endo: Diabetes mellitus Sliding-scale insulin/moderate regimen with Accu-Cheks every 6 hours to maintain euglycemia Renal: Right renal cyst Chronic kidney disease stage IIIa Creatinine slowly trending downward Monitor urine output Accurate I's and O's Check BMP in a.m. Heme: Chronic Apixaban use Resumed 5 mg twice a day apixaban on 06/22 Follow-up CBC in AM on trend ID: sputum culture, blood cultures 2 and UA today Currently not on empiric antibiotics MSK: PT evaluate and treat FEN: Replace electrolytes as clinically indicated. Access Utilize peripheral IV. Central line if indicated Prophylaxis - GI -lansoprazole, convert to BID pepcid while on TSOAC DVT - SCD/Apixaban Overall impression: Would benefit from LTAC placement. Sohail Ma MD Nov 22, 2017 08:25
[2017-11-22] MEDS: DILTIAZEM HCL 60 MG TAB PO SCH ×3 (08:45→16:59)
[2017-11-22] MEDS: FAMOTIDINE 20 MG TAB NG SCH ×2 (09:00→21:32)
[2017-11-22] MEDS: SODIUM CHLORIDE 0.9% FLUSH 10 ML FLUSH IV FLUSH SCH ×2 (09:00→21:00)
[2017-11-22] MEDS ORDERED: LANSOPRAZOLE SOLUTAB 30 MG TAB NG SCH (09:00)
[2017-11-22] MEDS: ATORVASTATIN 80 MG TAB PO SCH (21:32)
[2017-11-23] VITALS (18 sets, daily range): BP systolic 97–153; BP diastolic 59–69; PULSE 81–129; RESP 15–23; TEMP 98.2–100.3; O2SAT 94–100
[2017-11-23] MEDS: DILTIAZEM HCL 60 MG TAB PO SCH ×4 (00:48→17:40)
[2017-11-23] MEDS: oxyCODONE HCL ORAL CONC 5 MG/0.25 ML SYRINGE NG PRN ×3 (00:48→20:45)
[2017-11-23] MEDS: FUROSEMIDE 40 MG/4 ML VIAL IV PUSH SCH ×2 (00:49→08:32)
[2017-11-23] MEDS: RESP: ALBUTEROL 2.5 MG/IPRATROPIUM 0.5 MG NEB (SCH) NEB ×4 (03:21→20:16)
[2017-11-23] MEDS: CHLORHEXIDINE GLUCONATE 2 % 1 PACK (2 CLOTHS) TOP SCH (04:00)
[2017-11-23] MEDS: ARTIFICIAL TEARS OPTH SOLN 15 ML BTL EACH EYE SCH ×3 (05:52→21:59)
[2017-11-23] MEDS: INSULIN NovoLIN REGULAR SUPPLEMENTAL SCALE SQ SCH ×4 (06:00→17:41)
[2017-11-23 06:29] LABS: BICARBONATE 30.6 MEQ/L (21.0-32.0); CALCIUM 8.2 MG/DL (8.5-10.1); CREATININE 2.95 MG/DL (0.60-1.30)
[2017-11-23] MEDS ORDERED: SODIUM CHLORID 0.9% 500 ML INJ 500 ML IV SCH (06:45)
--- NOTE | 2017-11-23 06:47 | HHI.CCPN ---
Subjective Remarks/Hospital Course 57 y/o man with chronic nonischemic cardiomyopathy, EF 20% presents two days ago to ED with a-fib and RVR. Morbid obesity and chronic obesity hypoventilation syndrome. Developed bradycardia requiring atropine this morning , rushed to [facility] where on arrival he is obtunded with agonal respirations. Rate acceptable, depth shallow. Required bag mask ventilation, dopamine and levophed. Unable to intubate despite optic endoscope; proceeded to tracheostomy. Sats maintained > 80% throughout. Initial pH 7.14. 11/17: S/P resuscitation for probable hypercapneic respiratory arrest with bradycardia, hypotension. Has required mechanical ventilation. Perfusion improved after inotropic support instituted, now tapering. Elevated LFTs may reflect period of inadequate perfusion. 11/18: Doing well on T-piece. Resolving shock liver, [place]. Should go home with trach. 11/19: Fatigues on CPAP/T-piece. Will need LTAC. 11/20: stable. still volume overloaded by clinical exam. will need LTAC placement. SUBJECTIVE: 11/21: Tmax 1.3. Currently 99.9. Remains on PRvC ventilation. NG tube is been resumed. Remains on furosemide 40 mg IV 3 times daily. Heart rate slightly tachycardic 11/22: Pulse intermittently 150. Consistently 120s. Will add PO cardizem and attempt to get better rate control - permanent a-fib. 11/23: Heart rate control improved on po cardizem. Slightly overdiuresed, will back off on lasix. Objective Vital Signs Date Time Temp Pulse Resp B/P (MAP) Pulse Ox O2 Delivery O2 Flow Rate FiO2 11/23/17 06:33 129 11/23/17 04:00 99.2 15 112/59 (76) 98 11/23/17 04:00 40 11/20/17 03:51 Ventilator 11/19/17 10:50 6.00 Intake and Output 11/23/17 11/23/17 11/24/17 08:00 16:00 00:00 Intake Total 741 ml Output Total 825 ml Balance -84 ml Result Diagram: 11/23/17 0545 Imaging Last Impressions Chest X-Ray 11/19/17 0000 Signed Impressions: Service Date/Time: Sunday, November 19, 2017 11:33 - CONCLUSION: Improved basilar opacities essentially cleared on the right and minimal residual on the left. Efrain Dimas MD Abdomen X-Ray 11/16/17 0000 Signed Impressions: Service Date/Time: Thursday, November 16, 2017 09:53 - CONCLUSION: Nasogastric tube tip in the region of the distal stomach. Jose Bruno MD Objective Remarks GENERAL: 57-year-old male status post tracheostomy SKIN: Warm and dry. HEAD: Atraumatic. Normocephalic. EYES: Pupils equal and round. No scleral icterus. No injection or drainage. ENT: No nasal bleeding or discharge. Mucous membranes pink and moist. NECK: Trachea midline.+ JVD. CARDIOVASCULAR: Tachycardia, Irreg, irreg. S1, S2 no S4. Distant tones. RESPIRATORY: Minutes less distended breath sounds throughout. GASTROINTESTINAL: Abdomen obese, soft. Active bowel sounds appreciated. No guarding. MUSCULOSKELETAL: Extremities with bilateral brawny induration lower legs, 2+ edema NEUROLOGICAL: Awake and alert. Attempts to talk. No obvious cranial nerve deficits. Motor is moving all 4 extremities upper and lower. Generalized weakness. A/P Problem List: (1) Acute on chronic respiratory failure with hypoxemia ICD Code: J96.21 - Acute and chronic respiratory failure with hypoxia (2) Symptomatic bradycardia ICD Code: R00.1 - Bradycardia, unspecified Status: Acute (3) Morbid obesity with BMI of 50.0-59.9, adult ICD Code: E66.01 - Morbid (severe) obesity due to excess calories; Z68.43 - Body mass index (BMI) 50-59.9 , adult Status: Acute (4) Atrial fibrillation ICD Code: I48.91 - Unspecified atrial fibrillation Status: Chronic (5) CKD (chronic kidney disease), stage III ICD Code: N18.3 - Chronic kidney disease, stage 3 (moderate) Status: Chronic (6) Chronic systolic CHF (congestive heart failure) ICD Code: I50.22 - Chronic systolic (congestive) heart failure Status: Chronic Assessment and Plan Neuro/Psych: Seizure disorder NOS Cardiac arrest x2 without evidence of anoxic injury Acetaminophen 650 mg by tube every 6 hours when necessary fever/pain 1-2 Oxycodone 5 mg by tube daily 4 hours. Pain 3-10 Morphine sulfate 2 mg IV every 2 hours when necessary breakthrough pain No evidence of anoxic brain injury. Following commands 4. Goal of RA SS -0. Currently on topiramate 200 mg by mouth daily for underlying seizure disorder CV: History of Cardiac arrest x2 (PEA) Nonischemic cardiomyopathy Ejection fraction 15-20% echocardiogram 06/20 Atrial fibrillation with RVR Chronic systolic heart failure Pulmonary hypertension History of chronic atrial fibrillation Hypertension Hospitalization with symptomatically bradycardia 2-D echocardiogram 06/20 revealed EF 20%. Dilated LV/RV. Moderate MR/TR. Pulmonary arterial pressures 50-60 mmHg. Cardiac catheterization 2015 revealed 50% LAD stenosis otherwise unremarkable Holding home medications amiodarone 200 mg by mouth daily Continue atorvastatin 80 mg by mouth daily for dyslipidemia Currently on metoprolol 100 mg by mouth twice a day per cardiology's recommendations Diuresis with furosemide 40 mill grams IV every 8 hours. Troponin peaked at 0.49. Downward trending. Followed by Dr. Jordan/cardiology Continue Apixaban 5 mg twice a day Continue cardizem 60 po q6h for better rate control. Resp: Acute hypoxic and hypercapnic respiratory failure Anterior airway Likely CHINO not on CPAP PRVC 14/550/25/5/40, Ventilator bundle Albuterol/ipratropium aerosols every 6 hours with albuterol every 2 hours as needed dyspnea. Temp CPAP trials daily. Chest x-ray ordered 11/22 a.m. s/p Tracheostomy by Dr. Ma Difficult intubation in CT 06/27/17 GI: Constipation Elevated BMI Nepro initiated today with goal 55 cc an hour cc an hour goal. Resume tube feeds after placing NGT Lansoprazole 30 mg by tube daily for GI prophylaxis Docusate sodium/senna 1 tablet twice a day for bowel regimen. Add polyethylene glycol and lactulose today : Anderson catheter for accurate I's and O's in a critically ill patient Endo: Diabetes mellitus Sliding-scale insulin/moderate regimen with Accu-Cheks every 6 hours to maintain euglycemia Renal: Right renal cyst Chronic kidney disease stage IIIa Creatinine slowly trending downward Monitor urine output Accurate I's and O's Check BMP in a.m. Decrease lasix to once daily Heme: Chronic Apixaban use Resumed 5 mg twice a day apixaban on 06/22 Follow-up CBC in AM on trend [place] sputum. ID: sputum culture, blood cultures 2 and UA today Currently not on empiric antibiotics MSK: PT evaluate and treat FEN: Replace electrolytes as clinically indicated. Access Utilize peripheral IV. Central line Day # 5 Prophylaxis - GI -lansoprazole, convert to BID pepcid while on TSOAC DVT - SCD/Apixaban Overall impression: Would benefit from LTAC placement. Probably needs permanent trach. Sohail Ma MD Nov 23, 2017 06:47
[2017-11-23] MEDS: POTASSIUM CHLOR 40 MEQ PREMIX 100 ML IV SCH ×2 (07:00→10:04)
[2017-11-23] MEDS: CHLORHEXIDINE 0.12% (ORAL KIT) 15 ML CUP MT SCH ×2 (08:00→20:00)
[2017-11-23] MEDS: APIXABAN 5 MG TABLET PO SCH ×2 (08:32→20:45)
[2017-11-23] MEDS: FAMOTIDINE 20 MG TAB NG SCH ×2 (08:32→20:46)
[2017-11-23] MEDS: TOPIRAMATE 200 MG TAB PO SCH (08:32)
[2017-11-23] MEDS: METOPROLOL TARTRATE 100 MG TAB PO SCH ×2 (08:32→20:45)
[2017-11-23] MEDS: LACTULOSE SYRUP 20 GM/30 ML CUP NG SCH ×4 (09:00→20:45)
[2017-11-23] MEDS: POLYETHYLENE GLYCOL 17 GM PKG NG SCH ×2 (09:00→20:46)
[2017-11-23] MEDS: DOCUSATE SODIUM 50 MG/SENNA 8.6 MG TAB PO SCH ×2 (09:00→20:46)
[2017-11-23] MEDS: SODIUM CHLORIDE 0.9% FLUSH 10 ML FLUSH IV FLUSH SCH ×2 (09:00→20:45)
[2017-11-23] MEDS: ATORVASTATIN 80 MG TAB PO SCH (20:45)
[2017-11-24] VITALS (20 sets, daily range): BP systolic 112–144; BP diastolic 56–83; PULSE 96–120; RESP 15–30; TEMP 98.7–100; O2SAT 93–100
[2017-11-24] MEDS: oxyCODONE HCL ORAL CONC 5 MG/0.25 ML SYRINGE NG PRN ×2 (02:12→13:11)
[2017-11-24] MEDS: CHLORHEXIDINE GLUCONATE 2 % 1 PACK (2 CLOTHS) TOP SCH (03:52)
[2017-11-24] MEDS: RESP: ALBUTEROL 2.5 MG/IPRATROPIUM 0.5 MG NEB (SCH) NEB ×4 (04:13→19:56)
[2017-11-24] MEDS: MORPHINE SULFATE 2 MG/ML INJ IV PUSH PRN ×3 (04:49→15:50)
[2017-11-24] MEDS: DILTIAZEM HCL 60 MG TAB PO SCH ×4 (05:10→18:47)
[2017-11-24] MEDS: ARTIFICIAL TEARS OPTH SOLN 15 ML BTL EACH EYE SCH ×3 (05:10→21:49)
[2017-11-24 05:46] LABS: BICARBONATE 26.7 MEQ/L (21.0-32.0); CALCIUM 8.3 MG/DL (8.5-10.1); CREATININE 2.99 MG/DL (0.60-1.30)
[2017-11-24] MEDS: INSULIN NovoLIN REGULAR SUPPLEMENTAL SCALE SQ SCH ×4 (06:00→18:00)
[2017-11-24] MEDS ORDERED: LIDOCAINE HCL 1% PF 30 ML VIAL INFIL ONE (06:30)
[2017-11-24] MEDS: cefTRIAXone INJ 1,000 MG in SODIUM CHLORIDE 0.9% INJ 100 ML IV SCH (06:36)
--- NOTE | 2017-11-24 06:36 | HHI.CCPN ---
Subjective Remarks/Hospital Course 57 y/o man with chronic nonischemic cardiomyopathy, EF 20% presents two days ago to ED with a-fib and RVR. Morbid obesity and chronic obesity hypoventilation syndrome. Developed bradycardia requiring atropine this morning , rushed to [facility] where on arrival he is obtunded with agonal respirations. Rate acceptable, depth shallow. Required bag mask ventilation, dopamine and levophed. Unable to intubate despite optic endoscope; proceeded to tracheostomy. Sats maintained > 80% throughout. Initial pH 7.14. 11/17: S/P resuscitation for probable hypercapneic respiratory arrest with bradycardia, hypotension. Has required mechanical ventilation. Perfusion improved after inotropic support instituted, now tapering. Elevated LFTs may reflect period of inadequate perfusion. 11/18: Doing well on T-piece. Resolving shock liver, [place]. Should go home with trach. 11/19: Fatigues on CPAP/T-piece. Will need LTAC. 11/20: stable. still volume overloaded by clinical exam. will need LTAC placement. SUBJECTIVE: 11/21: Tmax 1.3. Currently 99.9. Remains on PRvC ventilation. NG tube is been resumed. Remains on furosemide 40 mg IV 3 times daily. Heart rate slightly tachycardic 11/22: Pulse intermittently 150. Consistently 120s. Will add PO cardizem and attempt to get better rate control - permanent a-fib. 11/23: Heart rate control improved on po cardizem. Slightly over-diuresed, will back off on lasix. 11/24: Persistent intractable coughing. Low grade fever. Deteriorating renal function. CXR with pulmonary venous congestion but no consolidation or infiltrate. Objective Vital Signs Date Time Temp Pulse Resp B/P (MAP) Pulse Ox O2 Delivery O2 Flow Rate FiO2 11/24/17 06:10 106 11/24/17 04:14 100 40 11/24/17 04:00 100.0 30 123/75 (91) Intake and Output 11/24/17 11/24/17 11/25/17 08:00 16:00 00:00 Intake Total 611 ml Output Total 500 ml Balance 111 ml Result Diagram: 11/24/17 0500 Imaging Last Impressions Chest X-Ray 11/19/17 0000 Signed Impressions: Service Date/Time: Sunday, November 19, 2017 11:33 - CONCLUSION: Improved basilar opacities essentially cleared on the right and minimal residual on the left. Efrain Dimas MD Abdomen X-Ray 11/16/17 0000 Signed Impressions: Service Date/Time: Thursday, November 16, 2017 09:53 - CONCLUSION: Nasogastric tube tip in the region of the distal stomach. Jose Bruno MD Objective Remarks GENERAL: 57-year-old male status post emergency tracheostomy SKIN: Warm and dry. HEAD: Atraumatic. Normocephalic. EYES: Pupils equal and round. No scleral icterus. No injection or drainage. ENT: No nasal bleeding or discharge. Mucous membranes pink and moist. NECK: Trachea midline. Trach site clean. CARDIOVASCULAR: Tachycardia, Irreg, irreg. S1, S2 no S4. Distant tones. JVD. RESPIRATORY: Minutes less distended breath sounds throughout. GASTROINTESTINAL: Abdomen obese, soft. Active bowel sounds. No guarding. MUSCULOSKELETAL: Extremities with bilateral brawny induration lower legs, 1+ edema NEUROLOGICAL: Awake and alert. Attempts to talk. Motor is moving all 4 extremities upper and lower. Generalized weakness. A/P Problem List: (1) Acute on chronic respiratory failure with hypoxemia ICD Code: J96.21 - Acute and chronic respiratory failure with hypoxia (2) Symptomatic bradycardia ICD Code: R00.1 - Bradycardia, unspecified Status: Acute (3) Morbid obesity with BMI of 50.0-59.9, adult ICD Code: E66.01 - Morbid (severe) obesity due to excess calories; Z68.43 - Body mass index (BMI) 50-59.9 , adult Status: Acute (4) Atrial fibrillation ICD Code: I48.91 - Unspecified atrial fibrillation Status: Chronic (5) CKD (chronic kidney disease), stage III ICD Code: N18.3 - Chronic kidney disease, stage 3 (moderate) Status: Chronic (6) Chronic systolic CHF (congestive heart failure) ICD Code: I50.22 - Chronic systolic (congestive) heart failure Status: Chronic Assessment and Plan Neuro/Psych: Seizure disorder NOS Cardiac arrest x2 without evidence of anoxic injury Acetaminophen 650 mg by tube every 6 hours when necessary fever/pain 1-2 Oxycodone 5 mg by tube daily 4 hours. Pain 3-10 Morphine sulfate 2 mg IV every 2 hours when necessary breakthrough pain No evidence of anoxic brain injury. Following commands 4. Goal of RA SS -0. Currently on topiramate 200 mg by mouth daily for underlying seizure disorder Neurological function grossly intact 11/23 CV: History of Cardiac arrest x2 (PEA) Nonischemic cardiomyopathy Ejection fraction 15-20% echocardiogram 06/20 Atrial fibrillation with RVR Chronic systolic heart failure Pulmonary hypertension History of chronic atrial fibrillation Hypertension Hospitalization with symptomatically bradycardia 2-D echocardiogram 06/20 revealed EF 20%. Dilated LV/RV. Moderate MR/TR. Pulmonary arterial pressures 50-60 mmHg. Cardiac catheterization 2015 revealed 50% LAD stenosis otherwise unremarkable Holding home medications amiodarone 200 mg by mouth daily Continue atorvastatin 80 mg by mouth daily for dyslipidemia Currently on metoprolol 100 mg by mouth twice a day per cardiology's recommendations Diuresis with furosemide 40 mill grams IV every 8 hours. Troponin peaked at 0.49. Downward trending. Followed by Dr. Jordan/cardiology Continue Apixaban 5 mg twice a day Continue cardizem 60 po q6h for better rate control. Resp: Acute hypoxic and hypercapnic respiratory failure Anterior airway Likely CHINO not on CPAP PRVC 14/550/25/5/40, Ventilator bundle Albuterol/ipratropium aerosols every 6 hours with albuterol every 2 hours as needed dyspnea. Temp CPAP trials daily. Chest x-ray ordered 11/22 a.m. s/p Tracheostomy by Dr. Ma Difficult intubation in CT 06/27/17 as well. GI: Constipation Elevated BMI Nepro initiated today with goal 55 cc an hour cc an hour goal. Resume tube feeds after placing NGT Lansoprazole 30 mg by tube daily for GI prophylaxis Docusate sodium/senna 1 tablet twice a day for bowel regimen. Add polyethylene glycol and lactulose today : Anderson catheter for accurate I's and O's in a critically ill patient Endo: Diabetes mellitus Sliding-scale insulin/moderate regimen with Accu-Cheks every 6 hours to maintain euglycemia Renal: Right renal cyst Chronic kidney disease stage IIIa Creatinine slowly trending downward Monitor urine output Accurate I's and O's Check BMP in a.m. Decrease lasix to once daily Heme: Chronic Apixaban use Resumed 5 mg twice a day apixaban on 06/22 Follow-up CBC in AM on trend [place] sputum. ID: sputum culture 11/21 - Enterobacter, Proteus Ceftriaxone start 11/24 MSK: PT evaluate and treat FEN: Replace electrolytes as clinically indicated. Access Utilize peripheral IV. Central line Day # 6 Prophylaxis - GI -lansoprazole, convert to BID pepcid while on TSOAC DVT - SCD/Apixaban Overall impression: Would benefit from LTAC placement. Probably needs permanent trach, ideally a [place] XLT-distal long. Sohail Ma MD Nov 24, 2017 06:36
--- NOTE | 2017-11-24 06:59 | RADRPT ---
EXAM DATE/TIME: 11/24/2017 06:39 [place] COMPARISON: CHEST SINGLE AP, November 19, 2017, 11:33. INDICATIONS : Excessive coughing- Evaluate for pneumonia MEDICAL HISTORY : Hypertension. Hypercholesterolemia. Congestive heart failure. A-fib SURGICAL HISTORY : None. ENCOUNTER: Subsequent ACUITY: 4 - 6 days PAIN SCORE: Non-responsive. LOCATION: Bilateral chest FINDINGS: Lines and tubes are present not significantly changed. Cardiomegaly has not changed. Focal consolidat ion is not seen, however mild asymmetric pulmonary edema is seen. CONCLUSION: /Pulmonary edema. K. Mauricio Culp MD on November 24, 2017 at 6:52 Board Certified Radiologist. This report was verified electronically.
[2017-11-24] MEDS: APIXABAN 5 MG TABLET PO SCH ×2 (08:37→20:53)
[2017-11-24] MEDS: METOPROLOL TARTRATE 100 MG TAB PO SCH ×2 (08:37→20:53)
[2017-11-24] MEDS: LACTULOSE SYRUP 20 GM/30 ML CUP NG SCH ×4 (08:38→20:52)
[2017-11-24] MEDS: TOPIRAMATE 200 MG TAB PO SCH (08:38)
[2017-11-24] MEDS: DOCUSATE SODIUM 50 MG/SENNA 8.6 MG TAB PO SCH ×2 (08:38→20:53)
[2017-11-24] MEDS: FAMOTIDINE 20 MG TAB NG SCH ×2 (08:38→20:53)
[2017-11-24] MEDS: SODIUM CHLORIDE 0.9% FLUSH 10 ML FLUSH IV FLUSH SCH ×2 (08:39→20:52)
[2017-11-24] MEDS: POLYETHYLENE GLYCOL 17 GM PKG NG SCH ×2 (08:39→20:52)
[2017-11-24] MEDS: CHLORHEXIDINE 0.12% (ORAL KIT) 15 ML CUP MT SCH ×2 (08:39→20:00)
[2017-11-24] MEDS: FUROSEMIDE 40 MG/4 ML VIAL IV PUSH SCH (08:39)
[2017-11-24] MEDS: ATORVASTATIN 80 MG TAB PO SCH (20:53)
[2017-11-25] VITALS (18 sets, daily range): BP systolic 108–122; BP diastolic 66–84; PULSE 92–129; RESP 16–31; TEMP 98.1–99.2; O2SAT 95–100
[2017-11-25] MEDS: DILTIAZEM HCL 60 MG TAB PO SCH ×4 (00:13→18:18)
[2017-11-25] MEDS: oxyCODONE HCL ORAL CONC 5 MG/0.25 ML SYRINGE NG PRN (00:36)
[2017-11-25] MEDS: RESP: ALBUTEROL 2.5 MG/IPRATROPIUM 0.5 MG NEB (SCH) NEB ×4 (03:56→19:45)
[2017-11-25] MEDS: CHLORHEXIDINE GLUCONATE 2 % 1 PACK (2 CLOTHS) TOP SCH (04:00)
[2017-11-25] MEDS: ARTIFICIAL TEARS OPTH SOLN 15 ML BTL EACH EYE SCH ×3 (05:24→21:20)
[2017-11-25] MEDS: cefTRIAXone INJ 1,000 MG in SODIUM CHLORIDE 0.9% INJ 100 ML IV SCH (05:24)
[2017-11-25] MEDS: INSULIN NovoLIN REGULAR SUPPLEMENTAL SCALE SQ SCH ×4 (06:00→18:00)
[2017-11-25 06:17] LABS: HEMATOCRIT 36.5 % (39.0-51.0); MEAN CELL VOLUME 87.9 FL (80.0-100.0); MEAN CORPUSCULAR HEMOGLOBIN 28.8 PG (27.0-34.0); MEAN CORPUSCULAR HGB CONC 32.8 % (32.0-36.0); MEAN PLATELET VOLUME 11.9 FL (7.0-11.0); PLATELET COUNT 156 TH/MM3 (150-450); RED BLOOD COUNT 4.15 MIL/MM3 (4.50-5.90); RED CELL DISTRIBUTION WIDTH 14.6 % (11.6-17.2); WHITE BLOOD COUNT 11.2 TH/MM3 (4.0-11.0)
[2017-11-25 07:25] LABS: BANDS 1 % (0-6); BASOPHILS 1 % (0-2); LYMPHOCYTES 11 % (9-44); MONOCYTES 5 % (0-8); NEUTROPHIL # MANUAL DIFF 9.1 TH/MM3 (1.8-7.7); POLYS (SEG NEUTROPHILS) 80 % (16-70)
[2017-11-25] MEDS: CHLORHEXIDINE 0.12% (ORAL KIT) 15 ML CUP MT SCH ×2 (08:40→20:00)
[2017-11-25] MEDS: TOPIRAMATE 200 MG TAB PO SCH (08:46)
[2017-11-25] MEDS: FAMOTIDINE 20 MG TAB NG SCH ×2 (08:46→21:00)
[2017-11-25] MEDS: APIXABAN 5 MG TABLET PO SCH ×2 (08:46→21:19)
[2017-11-25] MEDS: METOPROLOL TARTRATE 100 MG TAB PO SCH ×2 (08:46→21:19)
[2017-11-25] MEDS: DOCUSATE SODIUM 50 MG/SENNA 8.6 MG TAB PO SCH ×2 (08:46→21:00)
[2017-11-25] MEDS: POLYETHYLENE GLYCOL 17 GM PKG NG SCH ×2 (08:47→21:00)
[2017-11-25] MEDS: SODIUM CHLORIDE 0.9% FLUSH 10 ML FLUSH IV FLUSH SCH ×2 (08:47→20:07)
[2017-11-25] MEDS: LACTULOSE SYRUP 20 GM/30 ML CUP NG SCH ×2 (08:47→12:49)
--- NOTE | 2017-11-25 08:48 | HHI.CCPN ---
Subjective Remarks/Hospital Course 57 y/o man with chronic nonischemic cardiomyopathy, EF 20% presents two days ago to ED with a-fib and RVR. Morbid obesity and chronic obesity hypoventilation syndrome. Developed bradycardia requiring atropine this morning , rushed to [facility] where on arrival he is obtunded with agonal respirations. Rate acceptable, depth shallow. Required bag mask ventilation, dopamine and levophed. Unable to intubate despite optic endoscope; proceeded to tracheostomy. Sats maintained > 80% throughout. Initial pH 7.14. 11/17: S/P resuscitation for probable hypercapneic respiratory arrest with bradycardia, hypotension. Has required mechanical ventilation. Perfusion improved after inotropic support instituted, now tapering. Elevated LFTs may reflect period of inadequate perfusion. 11/18: Doing well on T-piece. Resolving shock liver, DENNYS. Should go home with trach. 11/19: Fatigues on CPAP/T-piece. Will need LTAC. 11/20: stable. still volume overloaded by clinical exam. will need LTAC placement. SUBJECTIVE: 11/21: Tmax 1.3. Currently 99.9. Remains on PRvC ventilation. NG tube is been resumed. Remains on furosemide 40 mg IV 3 times daily. Heart rate slightly tachycardic 11/22: Pulse intermittently 150. Consistently 120s. Will add PO cardizem and attempt to get better rate control - permanent a-fib. 11/23: Heart rate control improved on po cardizem. Slightly over-diuresed, will back off on lasix. 11/24: Persistent intractable coughing. Low grade fever. Deteriorating renal function. CXR with pulmonary venous congestion but no consolidation or infiltrate. 11/25: Unable to wean ventilator. Hold lasix today, review pending renal function. ROS - unobtainable - patient is intubated Objective Vital Signs Date Time Temp Pulse Resp B/P (MAP) Pulse Ox O2 Delivery O2 Flow Rate FiO2 11/25/17 08:11 40 11/25/17 07:27 100 11/25/17 06:00 106 11/25/17 04:00 98.9 27 109/76 (87) Intake and Output 11/25/17 11/25/17 11/26/17 08:00 16:00 00:00 Intake Total 604 ml Balance 604 ml Result Diagram: 11/25/17 0540 11/24/17 0500 Imaging Last Impressions Chest X-Ray 11/19/17 0000 Signed Impressions: Service Date/Time: Sunday, November 19, 2017 11:33 - CONCLUSION: Improved basilar opacities essentially cleared on the right and minimal residual on the left. Efrain Dimas MD Abdomen X-Ray 11/16/17 0000 Signed Impressions: Service Date/Time: Thursday, November 16, 2017 09:53 - CONCLUSION: Nasogastric tube tip in the region of the distal stomach. Jose Bruno MD Objective Remarks GENERAL: middle age gentleman, awake, ill appearing SKIN: Warm and dry. HEAD: Atraumatic. Normocephalic. EYES: Pupils equal and round. No scleral icterus. No injection or drainage. ENT: No nasal bleeding or discharge. Mucous membranes pink and moist. NECK: Trachea midline. Trach site clean. JVD CARDIOVASCULAR: irregular heart sounds, no murmurs RESPIRATORY: good air entry, scattered coarse breath sounds, no wheezes GASTROINTESTINAL: Abdomen obese, soft. Active bowel sounds. No guarding. MUSCULOSKELETAL: Extremities with bilateral brawny induration lower legs, 1+ edema NEUROLOGICAL: Awake and alert. Attempts to talk. Moves all four extremities, weak A/P Problem List: (1) Acute on chronic respiratory failure with hypoxemia ICD Code: J96.21 - Acute and chronic respiratory failure with hypoxia (2) Symptomatic bradycardia ICD Code: R00.1 - Bradycardia, unspecified Status: Acute (3) Morbid obesity with BMI of 50.0-59.9, adult ICD Code: E66.01 - Morbid (severe) obesity due to excess calories; Z68.43 - Body mass index (BMI) 50-59.9 , adult Status: Acute (4) Atrial fibrillation ICD Code: I48.91 - Unspecified atrial fibrillation Status: Chronic (5) CKD (chronic kidney disease), stage III ICD Code: N18.3 - Chronic kidney disease, stage 3 (moderate) Status: Chronic (6) Chronic systolic CHF (congestive heart failure) ICD Code: I50.22 - Chronic systolic (congestive) heart failure Status: Chronic Assessment and Plan 1. Acute hypercapneic and hypoxic respiratory failure s/p emergent trach 2. Afib/flutter with RVR - rate better controlled, remains in Afib 3. Mixed gram negative bronchitis vs pneumonia - afebrile, minimal leukocytosis 4. DENNYS on CKD - worsening, urine output remains adequate, CVP 12 to 14 5. NICM with rEF 20% 6. Shock liver, likely secondary to hypoperfusion - improving 6. Tachy-janene sdr 7. H/o seizure d/o 8. H/o cardiac arrest 9. DM 10. Possible CHINO/OHS 11. Hypokalemia 1. Continue PRVC at PRVC 14/550/25/5/40, Pip 23, synchronized with vent, no auto PEEP 2. Ventilator bundle and bronchodilators 3. Ceftriaxone, started on 11/24 4. Hold diuresis today, gentle iv hydration in the setting on worsening renal function. Send ua, urine lytes, nephrology consult 5. Replete potassium 6. On metropolol and cardizem. group home will need to stop cardizem due to negative inotropy effect. On apixaban 7. Restart amiodarone once liver enzymes normalize (200 mg QD) 8. Will need FABRICE/ARB and spironolactone once renal function improves 9. Continue statin 10. On topiramate for underlying seizure disorder 11. Glycemic control with insulin sliding scale 12. TF with nepro 13. GI prophylaxis 14. DVT prophylaxis addressed Overall impression: Would benefit from LTAC placement. Probably needs permanent trach, ideally a [facility] XLT-distal long. Hopefully [facility] will consider transfer. Sohail Ma MD Nov 25, 2017 08:48 Jesus Broussard MD Nov 25, 2017 17:07
[2017-11-25 09:13] LABS: BLOOD UREA NITROGEN 60 MG/DL (7-18); CREATININE 2.83 MG/DL (0.60-1.30); GLOMERULAR FILTRATION RATE 28 ML/MIN (>89)
[2017-11-25 09:14] LABS: ALBUMIN 2.4 GM/DL (3.4-5.0); ALKALINE PHOSPHATASE 217 U/L (45-117); ALT (GPT) 498 U/L (12-78); AST (GOT) 427 U/L (15-37); CALCIUM 8.7 MG/DL (8.5-10.1); GLUCOSE,RANDOM 141 MG/DL (74-106); SODIUM (NA) 144 MEQ/L (136-145); TOTAL BILIRUBIN ADULT 1.1 MG/DL (0.2-1.0); TOTAL PROTEIN 7.2 GM/DL (6.4-8.2)
[2017-11-25 09:15] LABS: BICARBONATE 25.4 MEQ/L (21.0-32.0); CHLORIDE 108 MEQ/L (98-107)
[2017-11-25] MEDS ORDERED: SODIUM CHLOR 0.9% 1000 ML INJ 1,000 ML IV ONE (10:45)
[2017-11-25] MEDS ORDERED: POTASSIUM CHLOR 40 MEQ PREMIX 100 ML IV ONE (12:00)
[2017-11-25] MEDS ORDERED: MIDAZOLAM HCL 2 MG/2 ML VIAL ONE (13:34)
--- NOTE | 2017-11-25 14:39 | PD.CONS ---
HPI Service Nephrology Consult Requested By Dr. Pimentel Reason for Consult DENNYS on CKD Primary Care Physician Roxi Gonzales MD History of Present Illness Patient is a 57-year-old -Stateless male with past medical history of seizure disorder, chronic systolic congestive heart failure, hx of respiratory failure requiring tracheostomy placement, hx of cardiogenic shock with PEA arrest, chronic kidney disease, hypertension, diabetes mellitus, atrial fibrillation who was admitted with increased swelling and afib RVR. I was called to see the patient for elevated BUN and creatinine. The patient has a known history of chronic kidney disease and it seems like his baseline creatinine has been in the range of 1.4 to 2.0 and it has increased now at 2.83. Chest Xray noted with pulmonary edema. On ventilator via trach at 40 % FiO2 and weaning trial this morning. Was receiving lasix 40 mg daily which is on hold for elevating renal indices and patient is receiving IVF NS at 100 ml per hour for 1 bag. The patient is not able to give any history because he has a tracheostomy but he is responding to verbal commands and he seems to be fully awake in good spirits. (Petra Banks) Review of Systems ROS Limitations: Clinical Condition (Petra Banks) Past Family Social History Allergies: Coded Allergies: castor oil (Unverified Allergy, Unknown, THROW UP, 11/14/17) Past Medical History History obtained per records HTN Atrial fibrillation Chronic systolic congestive heart failure History of respiratory failure requiring intubation and tracheostomy tube placement. Removed on July 25, 2017. History of cardiogenic shock with PEA cardiac arrest in last admission June Chronic kidney disease stage III Seizure disorder Thrombocytopenia. Was followed up by regular senior care provider and had bone marrow biopsy on July 24, 2017. Morbid obesity Obstructive sleep apnea. Was told he needs C Pap but has not been able to arrange it. Past Surgical History Coronary angiogram. Tracheostomy Active Ordered Medications Current Medications Medications (Trade) Dose Ordered Sig/Ashok Route Start Time Stop Time Status Last Admin (NS Flush) 2 ml UNSCH PRN IV FLUSH 11/15/17 00:15 (NS Flush) 2 ml BID IV FLUSH 11/15/17 09:00 11/25/17 08:47 (Narcan Inj) 0.4 mg UNSCH PRN IV PUSH 11/15/17 00:15 (Eliquis) 5 mg BID PO 11/15/17 09:00 Future hold 11/25/17 08:46 (Lipitor) 80 mg HS PO 11/15/17 21:00 11/24/17 20:53 (Lopressor) 100 mg Q12H PO 11/15/17 09:00 11/25/17 08:46 (Topamax) 200 mg DAILY PO 11/15/17 09:00 11/25/17 08:46 (Peridex 0.12% Liq) 15 ml BID@08,20 MT 11/16/17 08:00 11/25/17 08:40 (Zofran Inj) 4 mg Q6H PRN IV PUSH 11/16/17 09:15 Miscellaneous Information 1 Q361D XX 11/16/17 09:15 (Chlorhexidine 2% Cloth) Taper DAILY@04 TOP 11/17/17 04:00 11/13/18 03:59 (Chlorhexidine 2% Cloth) 3 pack UNSCH PRN TOP 11/16/17 09:15 (Marilee-Colace) 1 tab BID PO 11/16/17 21:00 11/22/17 07:56 (Milk Of Magnesia Liq) 30 ml Q12H PRN PO 11/16/17 09:15 (Senokot) 17.2 mg Q12H PRN PO 11/16/17 09:15 (Dulcolax Supp) 10 mg DAILY PRN RECTAL 11/16/17 09:15 (Lactulose Liq) 30 ml DAILY PRN PO 11/16/17 09:15 (Pill Splitter) 1 ea UNSCH PRN OTHER 11/20/17 16:00 (Tylenol 650 Mg/ 20 ml Liq) 650 mg Q6H PRN NG 11/21/17 17:15 (Roxicodone Intensol Liq) 5 mg Q4H PRN NG 11/21/17 17:15 11/25/17 00:36 (Morphine Inj) 2 mg Q3H PRN IV PUSH 11/21/17 17:15 11/24/17 15:50 (Duoneb Neb) 1 ampule Q6HR NEB NEB 11/21/17 22:00 11/25/17 07:27 (Albuterol Neb) 2.5 mg Q2HR NEB PRN NEB 11/21/17 17:15 (Tears Naturale Opth Soln) 1 drop Q8HR EACH EYE 11/21/17 22:00 11/25/17 13:01 (Miralax) 17 gm BID NG 11/21/17 21:00 11/22/17 07:55 (D50w (Vial) Inj) 50 ml UNSCH PRN IV PUSH 11/21/17 17:15 (Glucagon Inj) 1 mg UNSCH PRN OTHER 11/21/17 17:15 (NovoLIN R SUPPLEMENTAL SCALE) 1 Q6HR SQ 11/21/17 18:00 11/23/17 11:34 (Cardizem) 60 mg Q6HR PO 11/22/17 08:15 11/25/17 11:42 (Lasix Inj) 40 mg DAILY IV PUSH 11/23/17 09:00 Future Hold 11/24/17 08:39 (Pepcid) 10 mg BID NG 11/23/17 21:00 11/25/17 08:46 Ceftriaxone Sodium 1000 mg/ Sodium Chloride 100 ml @ 200 mls/hr Q24H IV 11/24/17 06:30 11/25/17 05:24 Potassium Chloride 100 ml @ 25 mls/hr BOLUS ONCE IV 11/25/17 12:00 11/25/17 15:59 11/25/17 11:42 Sodium Chloride 1,000 ml @ 100 mls/hr BOLUS ONCE IV 11/25/17 10:45 11/25/17 20:44 11/25/17 10:45 Family History HTN Atrial fibrillation Chronic systolic congestive heart failure History of respiratory failure requiring intubation and tracheostomy tube placement. Removed on July 25, 2017. History of cardiogenic shock with PEA cardiac arrest in last admission June Chronic kidney disease stage III Seizure disorder Thrombocytopenia. Was followed up by regular senior care provider and had bone marrow biopsy on July 24, 2017. Morbid obesity Obstructive sleep apnea. Was told he needs C Pap but has not been able to arrange it. brother- dm dad- [place] Social History HTN Atrial fibrillation Chronic systolic congestive heart failure History of respiratory failure requiring intubation and tracheostomy tube placement. Removed on July 25, 2017. History of cardiogenic shock with PEA cardiac arrest in last admission June Chronic kidney disease stage III Seizure disorder Thrombocytopenia. Was followed up by regular senior care provider and had bone marrow biopsy on July 24, 2017. Morbid obesity Obstructive sleep apnea. Was told he needs C Pap but has not been able to arrange it. never smoked no etoh abuse no drugs live on his own (Petra Banks) Physical Exam Vital Signs Vital Signs Date Time Temp Pulse Resp B/P (MAP) Pulse Ox O2 Delivery O2 Flow Rate FiO2 11/25/17 14:00 97 11/25/17 12:00 40 11/25/17 12:00 98.4 108 31 122/70 (87) 98 11/25/17 12:00 99 11/25/17 11:03 97 40 11/25/17 10:00 92 11/25/17 08:11 40 11/25/17 08:00 40 11/25/17 08:00 98.1 115 16 122/84 (97) 97 11/25/17 08:00 101 11/25/17 07:27 100 40 11/25/17 06:00 106 11/25/17 04:00 111 11/25/17 04:00 98.9 111 27 109/76 (87) 99 11/25/17 04:00 40 11/25/17 03:59 100 40 11/25/17 02:00 92 11/25/17 00:38 98 40 11/25/17 00:00 40 11/25/17 00:00 99.2 102 21 108/66 (80) 100 11/25/17 00:00 102 11/24/17 22:00 99 11/24/17 20:00 98.7 102 23 133/79 (97) 96 11/24/17 20:00 102 11/24/17 20:00 40 11/24/17 19:56 95 40 11/24/17 18:00 115 11/24/17 17:47 100 40 11/24/17 16:00 112 11/24/17 16:00 40 11/24/17 16:00 99.2 112 15 112/71 (85) 93 11/24/17 15:55 15 11/24/17 15:00 97 28 Physical Exam GENERAL: Alert responding to commands SKIN: Warm and dry. HEAD: Atraumatic. Normocephalic. EYES: Pupils equal and round. No scleral icterus. No injection or drainage. ENT: No nasal bleeding or discharge. Mucous membranes pink and moist. NECK: Trachea midline. Trach site clean. CARDIOVASCULAR: Tachycardia, Irreg, irreg. S1, S2 no S4. Distant tones. JVD. RESPIRATORY: Diminished breath sounds, no wheezes. GASTROINTESTINAL: Abdomen obese, soft. Active bowel sounds. No guarding. MUSCULOSKELETAL: Extremities with bilateral brawny induration lower legs, 1+ edema NEUROLOGICAL: Awake and alert. Attempts to talk. Motor is moving all 4 extremities upper and lower. Generalized weakness. Laboratory Laboratory Tests Test 11/25/17 05:40 White Blood Count 11.2 Red Blood Count 4.15 Hemoglobin 12.0 Hematocrit 36.5 Mean Corpuscular Volume 87.9 Mean Corpuscular Hemoglobin 28.8 Mean Corpuscular Hemoglobin Concent 32.8 Red Cell Distribution Width 14.6 Platelet Count 156 Mean Platelet Volume 11.9 CBC Comment AUTO DIFF Differential Total Cells Counted 100 Neutrophils % (Manual) 80 Band Neutrophils % 1 Lymphocytes % 11 Monocytes % 5 Eosinophils % 2 Basophils % 1 Neutrophils # (Manual) 9.1 Differential Comment FINAL DIFF MANUAL Platelet Estimate NORMAL Platelet Morphology Comment ENLARGED Blood Urea Nitrogen 60 Creatinine 2.83 Random Glucose 141 Total Protein 7.2 Albumin 2.4 Calcium Level 8.7 Alkaline Phosphatase 217 Aspartate Amino Transf (AST/SGOT) 427 Alanine Aminotransferase (ALT/SGPT) 498 Total Bilirubin 1.1 Sodium Level 144 Potassium Level 2.9 Chloride Level 108 Carbon Dioxide Level 25.4 Anion Gap 11 Estimat Glomerular Filtration Rate 28 B-Type Natriuretic Peptide 132 Date/Time Source Procedure Growth Status 11/22/17 07:13 Blood Peripheral Aerobic Blood Culture - Preliminary NO GROWTH IN 3 DAYS Resulted 11/22/17 07:13 Blood Peripheral Anaerobic Blood Culture - Preliminary NO GROWTH IN 3 DAYS Resulted 11/21/17 18:00 Sputum Endotracheal Gram Stain - Final Resulted 11/21/17 18:00 Sputum Culture - Preliminary Enterobacter Aerogenes Proteus Mirabilis Haemophilus Influenzae Resulted (Petra Banks) Result Diagram: 11/25/17 0540 11/25/17 0540 Imaging Last Impressions Chest X-Ray 11/24/17 0000 Signed Impressions: Service Date/Time: Friday, November 24, 2017 06:39 - CONCLUSION: /Pulmonary edema. K. Mauricio Culp MD Abdomen X-Ray 11/16/17 0000 Signed Impressions: Service Date/Time: Thursday, November 16, 2017 09:53 - CONCLUSION: Nasogastric tube tip in the region of the distal stomach. Jose Bruno MD (Petra Banks) Assessment and Plan Problem List: (1) CKD (chronic kidney disease), stage III ICD Codes: N18.3 - Chronic kidney disease, stage 3 (moderate) Status: Chronic Plan: DENNYS on CKD baseline creatinine has been in the range of 1.4 to 2.0 and it has increased and now it is 2.83 possible related to diuresis with impaired kidney function Continue with NS at 100ml/hr for 1 liter Continue to hold lasix will monitor carefully for distress with noted chest xray Renal panel, magnesium, phosphorus in AM Continue to make urine with UOP 1050 over last 24 hours Will obtain UA and C+S Avoid nephrotoxins (2) Respiratory failure ICD Codes: J96.90 - Respiratory failure, unspecified, unspecified whether with hypoxia or hypercapnia Plan: Weaning trial today. Resting now On F1O2 at 40% via trach (3) Non-ischemic cardiomyopathy ICD Codes: I42.8 - Other cardiomyopathies Status: Chronic Plan: Lasix on hold with worsening renal indices On metoprolol (4) Paroxysmal atrial fibrillation ICD Codes: I48.0 - Paroxysmal atrial fibrillation Status: Acute Plan: Rate 90- 110 metoprolol and Cardizem On Eliquis for anticoagulation (5) Hypokalemia ICD Codes: E87.6 - Hypokalemia Plan: Replacement given with recheck at 1700 (6) Seizure ICD Codes: R56.9 - Unspecified convulsions Plan: continue Topamax (Petra Banks) Problem List: (1) CKD (chronic kidney disease), stage III ICD Codes: N18.3 - Chronic kidney disease, stage 3 (moderate) Status: Chronic Plan: DENNYS on CKD baseline creatinine has been in the range of 1.4 to 2.0 and it has increased and now it is 2.83 possible related to diuresis with impaired kidney function Continue with NS at 100ml/hr for 1 liter Continue to hold Lasix will monitor carefully for distress with noted chest xray Renal panel, magnesium, phosphorus in AM Continue to make urine with UOP 1050 over last 24 hours Will obtain UA and C+S Avoid Nephrotoxins. Possible pre renal, follow the urine out put and BMP. (2) Respiratory failure ICD Codes: J96.90 - Respiratory failure, unspecified, unspecified whether with hypoxia or hypercapnia Plan: Weaning trial today. Resting now On F1O2 at 40% via trach (3) Non-ischemic cardiomyopathy ICD Codes: I42.8 - Other cardiomyopathies Status: Chronic Plan: Lasix on hold with worsening renal indices On metoprolol (4) Paroxysmal atrial fibrillation ICD Codes: I48.0 - Paroxysmal atrial fibrillation Status: Acute Plan: Rate 90- 110 metoprolol and Cardizem On Eliquis for anticoagulation (5) Hypokalemia ICD Codes: E87.6 - Hypokalemia Plan: Replacement given with recheck at 1700 (6) Seizure ICD Codes: R56.9 - Unspecified convulsions Plan: continue Topamax (Rajan Hoyt MD) Petra Banks Nov 25, 2017 14:39 Rajan Hoyt MD Nov 25, 2017 15:52
[2017-11-25 15:16] LABS: AUTOMATED NEUTROPHIL # 9.3 TH/MM3 (1.8-7.7); BASOPHIL # 0.1 TH/MM3 (0-0.2); BASOPHIL % 1.1 % (0.0-2.0); EOSINOPHIL # 0.2 TH/MM3 (0-0.4); EOSINOPHIL % 1.3 % (0.0-4.0); HEMATOCRIT 37.5 % (39.0-51.0); LYMPHOCYTE # 1.1 TH/MM3 (1.0-4.8); MEAN CELL VOLUME 88.4 FL (80.0-100.0); MEAN CORPUSCULAR HEMOGLOBIN 28.4 PG (27.0-34.0); MEAN CORPUSCULAR HGB CONC 32.1 % (32.0-36.0); MEAN PLATELET VOLUME 12.1 FL (7.0-11.0); MONO % 10.1 % (0.0-8.0); MONOCYTE # 1.2 TH/MM3 (0-0.9); NEUT % 78.5 % (16.0-70.0); PLATELET COUNT 171 TH/MM3 (150-450); RED BLOOD COUNT 4.25 MIL/MM3 (4.50-5.90); RED CELL DISTRIBUTION WIDTH 14.6 % (11.6-17.2); WHITE BLOOD COUNT 11.8 TH/MM3 (4.0-11.0)
[2017-11-25] MEDS: ATORVASTATIN 80 MG TAB PO SCH (21:19)
[2017-11-25] MEDS: MORPHINE SULFATE 2 MG/ML INJ IV PUSH PRN (21:19)
[2017-11-25 21:51] LABS: BACTERIA, URINE OCC /hpf; BILIRUBIN, URINE NEG (NEG); BLOOD, URINE NEG (NEG); GLUCOSE,URINE NEG (NEG); KETONE, URINE NEG (NEG); MUCUS URINE FEW /lpf (OCC); NITRITE,URINE NEG (NEG); SQUAMOUS EPITHELIAL CELL URINE <1 /hpf (0-5); URINE COLOR YELLOW (YELLW/STRAW); URINE LEUKOCYTE ESTERASE LARGE (NEG)
[2017-11-25 21:54] LABS: SODIUM,RANDOM URINE 43 MEQ/L
[2017-11-25 22:14] LABS: OSMOLALITY,URINE 610 MOSM/KG (300-1300)
[2017-11-25] MEDS ORDERED: POTASSIUM CHLOR 40 MEQ PREMIX 100 ML IV SCH (22:15)
[2017-11-26] VITALS (15 sets, daily range): BP systolic 109–126; BP diastolic 63–87; PULSE 81–126; RESP 20–25; TEMP 98.5–99.3; O2SAT 98–100
[2017-11-26] MEDS: oxyCODONE HCL ORAL CONC 5 MG/0.25 ML SYRINGE NG PRN (01:44)
[2017-11-26] MEDS: CHLORHEXIDINE GLUCONATE 2 % 1 PACK (2 CLOTHS) TOP SCH (03:33)
[2017-11-26] MEDS: INSULIN NovoLIN REGULAR SUPPLEMENTAL SCALE SQ SCH ×4 (06:00→17:49)
[2017-11-26] MEDS: DILTIAZEM HCL 60 MG TAB PO SCH ×4 (06:00→17:49)
[2017-11-26] MEDS: ARTIFICIAL TEARS OPTH SOLN 15 ML BTL EACH EYE SCH ×3 (06:00→22:51)
[2017-11-26] MEDS: cefTRIAXone INJ 1,000 MG in SODIUM CHLORIDE 0.9% INJ 100 ML IV SCH (06:30)
[2017-11-26 06:40] LABS: BICARBONATE 25.3 MEQ/L (21.0-32.0); CALCIUM 8.6 MG/DL (8.5-10.1); CREATININE 2.78 MG/DL (0.60-1.30); MAGNESIUM 2.6 MG/DL (1.5-2.5)
[2017-11-26] MEDS: CHLORHEXIDINE 0.12% (ORAL KIT) 15 ML CUP MT SCH ×2 (08:00→20:00)
[2017-11-26] MEDS: METOPROLOL TARTRATE 100 MG TAB PO SCH ×2 (09:00→22:45)
[2017-11-26] MEDS: DOCUSATE SODIUM 50 MG/SENNA 8.6 MG TAB PO SCH ×2 (09:00→21:00)
[2017-11-26] MEDS: SODIUM CHLORIDE 0.9% FLUSH 10 ML FLUSH IV FLUSH SCH ×2 (09:00→22:46)
[2017-11-26] MEDS: APIXABAN 5 MG TABLET PO SCH ×2 (09:00→22:44)
[2017-11-26] MEDS: FAMOTIDINE 20 MG TAB NG SCH ×2 (09:00→22:44)
[2017-11-26] MEDS: POLYETHYLENE GLYCOL 17 GM PKG NG SCH ×2 (09:00→21:00)
--- NOTE | 2017-11-26 10:34 | HHI.NPPN ---
Subjective History of Present Illness Patient is a 57-year-old -Portuguese male with past medical history of seizure disorder, chronic systolic congestive heart failure, hx of respiratory failure requiring tracheostomy placement, hx of cardiogenic shock with PEA arrest, chronic kidney disease, hypertension, diabetes mellitus, atrial fibrillation who was admitted with increased swelling and afib RVR. I was called to see the patient for elevated BUN and creatinine. The patient has a known history of chronic kidney disease and it seems like his baseline creatinine has been in the range of 1.4 to 2.0 and it has increased now at 2.83. Chest Xray noted with pulmonary edema. On ventilator via trach at 40 % FiO2 and weaning trial this morning. Was receiving lasix 40 mg daily which is on hold for elevating renal indices and patient is receiving IVF NS at 100 ml per hour for 1 bag. The patient is not able to give any history because he has a tracheostomy but he is responding to verbal commands and he seems to be fully awake in good spirits. Additional Remarks OOB in chair. On ventilator FiO2 at 40% (Petra Banks) General Problems: Anemia, Edema, Heart Disease, Obesity Renal Failure: Chronic, Acute, Stage IV (Rajan Hoyt MD) Review of Systems Respiratory Lungs: SOB, Sputum (Petra Banks) Gastrointestinal GI Remarks Denies Abdominal pain (Petra Banks) Objective Data Data 11/26/17 11/27/17 19:00 07:00 Intake Total 1070 ml Output Total 550 ml Balance 520 ml Tube Feeding 910 ml Other 160 ml Output Urine Total 550 ml # Bowel Movements 1 Vital Signs Date Time Temp Pulse Resp B/P (MAP) Pulse Ox O2 Delivery O2 Flow Rate FiO2 11/26/17 07:37 40 11/26/17 07:33 81 11/26/17 07:24 100 40 11/26/17 05:28 100 40 11/26/17 04:00 98.9 92 22 111/70 (84) 100 11/26/17 04:00 92 11/26/17 04:00 40 11/26/17 02:00 121 11/26/17 01:02 98 40 11/26/17 00:40 112 11/26/17 00:00 99.1 126 24 109/63 (78) 100 11/26/17 00:00 40 11/25/17 22:00 125 11/25/17 20:00 40 11/25/17 20:00 99.0 122 20 114/73 (87) 100 11/25/17 20:00 122 11/25/17 19:54 98 40 11/25/17 18:00 129 11/25/17 16:00 105 11/25/17 16:00 98.4 109 24 119/71 (87) 100 11/25/17 16:00 40 11/25/17 15:11 95 40 11/25/17 14:00 97 11/25/17 12:00 40 11/25/17 12:00 98.4 108 31 122/70 (87) 98 11/25/17 12:00 99 11/25/17 11:03 97 40 (Petra Banks) -: 11/25/17 1430 11/26/17 0600 Microbiology 11/25/17 Urine Culture, Received Pending (Petra Banks) Physical Exam General Appearance: Obese (Petra Banks) Appearance Remarks With Tracheostomy. (Rajan Hoyt MD) Neck Neck Remarks trach (Petra Banks) Pulmonary Resp Exam: Rhonchi, Sputum (Petra Banks) Cardiology CV Exam: Irregular (Petra Banks) Gastrointestinal/Abdomen GI Exam: Non-Tender, Bowel Sounds Present (Petra Banks) Genitourinary Exam: Flank Non-Tender (Petra Banks) Integumentary Skin Exam: Clear, Warm (Petra Banks) Extremeties Extremities Exam: Trace Edema (Petra Banks) Neurologic Neuro Exam: Alert, Awake (Petra Banks) Psychiatric Psych Exam: Appropriate Responses Psych Remarks Nods to commands (Petra Banks) Assessment/Plan Problem List: (1) CKD (chronic kidney disease), stage III ICD Codes: N18.3 - Chronic kidney disease, stage 3 (moderate) Status: Chronic Plan: DENNYS on CKD baseline creatinine has been in the range of 1.4 to 2.0 and it has increased and increased 2.83 possible related to diuresis with impaired kidney function, prerenal. Creatinine today at 2.78 Continue to hold Lasix Protein noted in urine Continue to make urine Will obtain UA and C+S Avoid Nephrotoxins. Possible pre renal, follow the urine out put and BMP. (2) Respiratory failure ICD Codes: J96.90 - Respiratory failure, unspecified, unspecified whether with hypoxia or hypercapnia Plan: Weaning trial today. Resting now On F1O2 at 40% via trach (3) Non-ischemic cardiomyopathy ICD Codes: I42.8 - Other cardiomyopathies Status: Chronic Plan: Lasix on hold with worsening renal indices On metoprolol (4) Paroxysmal atrial fibrillation ICD Codes: I48.0 - Paroxysmal atrial fibrillation Status: Acute Plan: Rate 90- 110 metoprolol and Cardizem On Eliquis for anticoagulation (5) Hypokalemia ICD Codes: E87.6 - Hypokalemia Plan: Continues to be low at 2.8 on replacement. (6) Seizure ICD Codes: R56.9 - Unspecified convulsions Plan: continue Topamax (Petra Banks) Problem List: (1) CKD (chronic kidney disease), stage III ICD Codes: N18.3 - Chronic kidney disease, stage 3 (moderate) Status: Chronic Plan: DENNYS on CKD baseline creatinine has been in the range of 1.4 to 2.0 and it has increased and increased 2.83 possible related to diuresis with impaired kidney function, prerenal. Creatinine today at 2.78 Continue to hold Lasix Protein noted in urine Continue to make urine Will obtain UA and C+S Avoid Nephrotoxins. Possible pre renal, follow the urine out put and BMP. Get Anderson's catheter for better urine out put measurement. (2) Respiratory failure ICD Codes: J96.90 - Respiratory failure, unspecified, unspecified whether with hypoxia or hypercapnia Plan: Weaning trial today. Resting now On F1O2 at 40% via trach (3) Non-ischemic cardiomyopathy ICD Codes: I42.8 - Other cardiomyopathies Status: Chronic Plan: Lasix on hold with worsening renal indices On metoprolol (4) Paroxysmal atrial fibrillation ICD Codes: I48.0 - Paroxysmal atrial fibrillation Status: Acute Plan: Rate 90- 110 metoprolol and Cardizem On Eliquis for anticoagulation (5) Hypokalemia ICD Codes: E87.6 - Hypokalemia Plan: Continues to be low at 2.8 on replacement. (6) Seizure ICD Codes: R56.9 - Unspecified convulsions Plan: continue Topamax (Rajan Hoyt MD) Petra Banks Nov 26, 2017 10:34 Rajan Hoyt MD Nov 26, 2017 15:11
[2017-11-26] MEDS: TOPIRAMATE 200 MG TAB PO SCH (11:37)
[2017-11-26] MEDS ORDERED: POTASSIUM CHLORIDE 20 MEQ PWD PACKET PO ONE (12:45)
--- NOTE | 2017-11-26 13:00 | HHI.CCPN ---
Subjective Remarks/Hospital Course 57 y/o man with chronic nonischemic cardiomyopathy, EF 20% presents two days ago to ED with a-fib and RVR. Morbid obesity and chronic obesity hypoventilation syndrome. Developed bradycardia requiring atropine this morning , rushed to [facility] where on arrival he is obtunded with agonal respirations. Rate acceptable, depth shallow. Required bag mask ventilation, dopamine and levophed. Unable to intubate despite optic endoscope; proceeded to tracheostomy. Sats maintained > 80% throughout. Initial pH 7.14. 11/17: S/P resuscitation for probable hypercapneic respiratory arrest with bradycardia, hypotension. Has required mechanical ventilation. Perfusion improved after inotropic support instituted, now tapering. Elevated LFTs may reflect period of inadequate perfusion. 11/18: Doing well on T-piece. Resolving shock liver, DENNYS. Should go home with trach. 11/19: Fatigues on CPAP/T-piece. Will need LTAC. 11/20: stable. still volume overloaded by clinical exam. will need LTAC placement. SUBJECTIVE: 11/21: Tmax 1.3. Currently 99.9. Remains on PRvC ventilation. NG tube is been resumed. Remains on furosemide 40 mg IV 3 times daily. Heart rate slightly tachycardic 11/22: Pulse intermittently 150. Consistently 120s. Will add PO cardizem and attempt to get better rate control - permanent a-fib. 11/23: Heart rate control improved on po cardizem. Slightly over-diuresed, will back off on lasix. 11/24: Persistent intractable coughing. Low grade fever. Deteriorating renal function. CXR with pulmonary venous congestion but no consolidation or infiltrate. 11/25: Unable to wean ventilator. Hold lasix today, review pending renal function. 11/26: No events over the night. Patient doing well, sat in chair, now back in bed. Good spirits, follows commands. Afebrile. I/O 2444/675. ROS - unobtainable - patient is intubated Objective Vital Signs Date Time Temp Pulse Resp B/P (MAP) Pulse Ox O2 Delivery O2 Flow Rate FiO2 11/26/17 12:00 99.3 102 24 126/77 (93) 100 11/26/17 12:00 40 Intake and Output 11/26/17 11/26/17 11/27/17 08:00 16:00 00:00 Intake Total 1170 ml Output Total 550.0 ml 0 ml Balance 620.0 ml 0 ml Result Diagram: 11/25/17 1430 11/26/17 0600 Other Results Laboratory Tests Test 11/26/17 05:47 Blood Gas Puncture Site IV Blood Gas Patient Temperature 98.6 Venous Blood pH 7.40 (7.360-7.400) Venous Blood Partial Pressure CO2 40 mmHg (44-48) Venous Blood Partial Pressure O2 37 mmHg (35-40) Venous Blood HCO3 24 mmol/L (22-26) Venous Blood Oxygen Saturation 61 % (70-76) Venous Blood Oxygen Content 9.8 Vol % (9.0-17.0) Venous Blood Base Excess -0.2 mmol/L (-2-2) Oxygen Delivery Device VENTILATOR Blood Gas Ventilator Setting PRVC / AC / Imaging Last Impressions Chest X-Ray 11/19/17 0000 Signed Impressions: Service Date/Time: Sunday, November 19, 2017 11:33 - CONCLUSION: Improved basilar opacities essentially cleared on the right and minimal residual on the left. Efrain Dimas MD Abdomen X-Ray 11/16/17 0000 Signed Impressions: Service Date/Time: Thursday, November 16, 2017 09:53 - CONCLUSION: Nasogastric tube tip in the region of the distal stomach. Jose Bruno MD Objective Remarks GENERAL: Middle age gentleman, awake, ill appearing, in no distress SKIN: Warm and dry. HEAD: Atraumatic. Normocephalic. EYES: Pupils equal bilateral, reactive. No scleral icterus. No injection or drainage. ENT: No nasal bleeding or discharge. Mucous membranes pink and moist. NECK: Trachea midline. Trach site clean. + JVD CARDIOVASCULAR: Irregular S1, S2, no murmurs RESPIRATORY: Good air entry, coarse breath sounds right > left, no wheezes GASTROINTESTINAL: Abdomen is obese, soft, not tender, + bowel sounds. No guarding. MUSCULOSKELETAL: Extremities with bilateral brawny induration lower legs, 1+ edema NEUROLOGICAL: Awake and alert. Attempts to talk. Moves all four extremities, weaker on the left lower extremity A/P Problem List: (1) Acute on chronic respiratory failure with hypoxemia ICD Code: J96.21 - Acute and chronic respiratory failure with hypoxia (2) Symptomatic bradycardia ICD Code: R00.1 - Bradycardia, unspecified Status: Acute (3) Morbid obesity with BMI of 50.0-59.9, adult ICD Code: E66.01 - Morbid (severe) obesity due to excess calories; Z68.43 - Body mass index (BMI) 50-59.9 , adult Status: Acute (4) Atrial fibrillation ICD Code: I48.91 - Unspecified atrial fibrillation Status: Chronic (5) CKD (chronic kidney disease), stage III ICD Code: N18.3 - Chronic kidney disease, stage 3 (moderate) Status: Chronic (6) Chronic systolic CHF (congestive heart failure) ICD Code: I50.22 - Chronic systolic (congestive) heart failure Status: Chronic Assessment and Plan 1. Acute hypercapneic and hypoxic respiratory failure s/p emergent trach - improved 2. Afib/flutter with RVR - rate better controlled, remains in Afib 3. Mixed gram negative bronchitis vs pneumonia - afebrile, minimal leukocytosis 4. DENNYS on CKD - about the same, followed by nephrology 5. NICM with rEF 20% 6. Shock liver, likely secondary to hypoperfusion - improving 6. Tachy-janene sdr 7. H/o seizure d/o 8. H/o cardiac arrest 9. DM 10. Possible CHINO/OHS 11. Hypokalemia - repleting 1. Continue PRVC, decrease Vt to 500, Pip 29, synchronized with vent, no auto PEEP 2. Ventilator bundle and bronchodilators 3. Ceftriaxone, started on 11/24 4. Change thompson and repeat UA 5. Replete potassium 6. On metropolol and cardizem. 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 On apixaban 7. Restart amiodarone once liver enzymes normalize (200 mg QD) 8. Will need FABRICE/ARB and spironolactone once renal function improves 9. Continue statin 10. On topiramate for underlying seizure disorder 11. Glycemic control with insulin sliding scale 12. TF with nepro 13. GI prophylaxis 14. DVT prophylaxis addressed Overall impression: Would benefit from LTAC placement. Probably needs permanent trach, ideally a [facility] XLT-distal long. Hopefully [facility] will consider transfer. Jesus Broussard MD Nov 26, 2017 13:00
[2017-11-26] MEDS ORDERED: POTASSIUM CHLOR 40 MEQ PREMIX 100 ML IV ONE (13:15)
[2017-11-26] MEDS ORDERED: LIDOCAINE HCL 1% 50 ML VIAL ONE ×2 (14:49→14:51)
[2017-11-26] MEDS: ATORVASTATIN 80 MG TAB PO SCH (22:45)
[2017-11-27] VITALS (20 sets, daily range): BP systolic 117–163; BP diastolic 71–92; PULSE 87–115; RESP 19–26; TEMP 97.3–99.3; O2SAT 97–100
[2017-11-27] MEDS: oxyCODONE HCL ORAL CONC 5 MG/0.25 ML SYRINGE NG PRN ×2 (01:31→08:24)
[2017-11-27] MEDS: CHLORHEXIDINE GLUCONATE 2 % 1 PACK (2 CLOTHS) TOP SCH (03:35)
[2017-11-27 05:33] LABS: AUTOMATED NEUTROPHIL # 11.2 TH/MM3 (1.8-7.7); BASOPHIL # 0.1 TH/MM3 (0-0.2); BASOPHIL % 0.6 % (0.0-2.0); EOSINOPHIL # 0.3 TH/MM3 (0-0.4); EOSINOPHIL % 1.8 % (0.0-4.0); HEMATOCRIT 35.9 % (39.0-51.0); HEMOGLOBIN 11.6 GM/DL (13.0-17.0); LYMPH % 9.5 % (9.0-44.0); LYMPHOCYTE # 1.4 TH/MM3 (1.0-4.8); MEAN CORPUSCULAR HEMOGLOBIN 28.5 PG (27.0-34.0); MEAN CORPUSCULAR HGB CONC 32.4 % (32.0-36.0); MEAN PLATELET VOLUME 12.2 FL (7.0-11.0); MONOCYTE # 1.4 TH/MM3 (0-0.9); NEUT % 78.1 % (16.0-70.0); PLATELET COUNT 182 TH/MM3 (150-450); RED BLOOD COUNT 4.08 MIL/MM3 (4.50-5.90); RED CELL DISTRIBUTION WIDTH 14.9 % (11.6-17.2); WHITE BLOOD COUNT 14.3 TH/MM3 (4.0-11.0)
[2017-11-27] MEDS: ARTIFICIAL TEARS OPTH SOLN 15 ML BTL EACH EYE SCH ×3 (06:00→21:14)
[2017-11-27] MEDS: INSULIN NovoLIN REGULAR SUPPLEMENTAL SCALE SQ SCH ×5 (06:00→23:46)
[2017-11-27] MEDS: DILTIAZEM HCL 60 MG TAB PO SCH ×5 (06:00→23:46)
[2017-11-27 06:08] LABS: ALBUMIN 2.4 GM/DL (3.4-5.0); ALKALINE PHOSPHATASE 211 U/L (45-117); ALT (GPT) 352 U/L (12-78); AST (GOT) 143 U/L (15-37); BICARBONATE 23.8 MEQ/L (21.0-32.0); BLOOD UREA NITROGEN 61 MG/DL (7-18); CALCIUM 8.7 MG/DL (8.5-10.1); CHLORIDE 114 MEQ/L (98-107); GLOMERULAR FILTRATION RATE 34 ML/MIN (>89); GLUCOSE,RANDOM 161 MG/DL (74-106); MAGNESIUM 2.8 MG/DL (1.5-2.5); PHOSPHORUS 2.8 MG/DL (2.5-4.9); SODIUM (NA) 147 MEQ/L (136-145); TOTAL BILIRUBIN ADULT 0.5 MG/DL (0.2-1.0); TOTAL PROTEIN 7.5 GM/DL (6.4-8.2)
[2017-11-27] MEDS: cefTRIAXone INJ 1,000 MG in SODIUM CHLORIDE 0.9% INJ 100 ML IV SCH (06:08)
[2017-11-27] MEDS ORDERED: POTASSIUM CHLOR 40 MEQ PREMIX 100 ML IV ONE (06:45)
[2017-11-27] MEDS: SODIUM CHLORIDE 0.9% FLUSH 10 ML FLUSH IV FLUSH SCH ×2 (07:44→20:05)
[2017-11-27] MEDS: CHLORHEXIDINE 0.12% (ORAL KIT) 15 ML CUP MT SCH ×2 (07:44→20:00)
[2017-11-27] MEDS: DOCUSATE SODIUM 50 MG/SENNA 8.6 MG TAB PO SCH ×2 (07:45→20:05)
[2017-11-27] MEDS: POLYETHYLENE GLYCOL 17 GM PKG NG SCH ×2 (07:45→20:05)
[2017-11-27] MEDS: RESP: ALBUTEROL 2.5 MG/3 ML NEB (PRN) NEB (08:05)
[2017-11-27] MEDS: APIXABAN 5 MG TABLET PO SCH ×2 (08:24→20:04)
[2017-11-27] MEDS: FAMOTIDINE 20 MG TAB NG SCH ×2 (08:24→20:05)
[2017-11-27] MEDS: TOPIRAMATE 200 MG TAB PO SCH (08:24)
[2017-11-27] MEDS: METOPROLOL TARTRATE 100 MG TAB PO SCH ×2 (08:24→20:04)
--- NOTE | 2017-11-27 09:53 | HHI.NPPN ---
Subjective General Problems: Anemia, Edema, Heart Disease, Obesity Renal Failure: Chronic, Acute, Stage IV History of Present Illness Patient is a 57-year-old -Mexican male with past medical history of seizure disorder, chronic systolic congestive heart failure, hx of respiratory failure requiring tracheostomy placement, hx of cardiogenic shock with PEA arrest, chronic kidney disease, hypertension, diabetes mellitus, atrial fibrillation who was admitted with increased swelling and afib RVR. I was called to see the patient for elevated BUN and creatinine. The patient has a known history of chronic kidney disease and it seems like his baseline creatinine has been in the range of 1.4 to 2.0 and it has increased now at 2.83. Chest Xray noted with pulmonary edema. On ventilator via trach at 40 % FiO2 and weaning trial this morning. Was receiving lasix 40 mg daily which is on hold for elevating renal indices and patient is receiving IVF NS at 100 ml per hour for 1 bag. The patient is not able to give any history because he has a tracheostomy but he is responding to verbal commands and he seems to be fully awake in good spirits. Additional Remarks On ventilator resting FiO2 at 45%. Good UOP. Minimal edema. (Petra Banks) Review of Systems Respiratory Lungs: SOB, Sputum (Petra Banks) Gastrointestinal GI Remarks Denies Abdominal pain (Petra Banks) Objective Data Data 11/27/17 11/28/17 19:00 07:00 Output Total 0 ml Balance 0 ml Tube Feeding Residual Discard 0 ml Vital Signs Date Time Temp Pulse Resp B/P (MAP) Pulse Ox O2 Delivery O2 Flow Rate FiO2 11/27/17 08:14 45 11/27/17 08:05 97 45 11/27/17 08:00 45 11/27/17 08:00 97.3 93 19 147/71 (96) 100 11/27/17 08:00 93 11/27/17 06:36 102 11/27/17 05:36 98 50 11/27/17 04:00 87 11/27/17 04:00 40 11/27/17 04:00 98.0 87 26 163/75 (104) 100 11/27/17 03:46 100 35 11/27/17 02:00 88 11/27/17 00:29 100 40 11/27/17 00:00 90 11/27/17 00:00 98.9 90 24 117/77 (90) 100 11/27/17 00:00 40 11/26/17 20:07 100 40 11/26/17 20:00 98.7 94 21 125/76 (92) 100 11/26/17 20:00 40 11/26/17 16:00 94 11/26/17 16:00 98.5 94 25 126/87 (100) 100 11/26/17 15:25 100 40 11/26/17 12:00 99.3 102 24 126/77 (93) 100 11/26/17 12:00 100 40 11/26/17 12:00 102 11/26/17 10:38 40 11/26/17 10:38 90 (Petra Banks) -: 11/27/17 0515 11/27/17 0515 Physical Exam General Appearance: Obese (Petra Banks) Neck Neck Remarks trach (Petra Banks) Pulmonary Resp Exam: Rhonchi, Sputum (Petra Banks) Cardiology CV Exam: Irregular (Petra Banks) Gastrointestinal/Abdomen GI Exam: Non-Tender, Bowel Sounds Present (Petra Banks) Genitourinary Exam: Flank Non-Tender (Petra Banks) Integumentary Skin Exam: Clear, Warm (Petra Banks) Extremeties Extremities Exam: Trace Edema (Petra Banks) Neurologic Neuro Exam: Alert, Awake (Petra Banks) Psychiatric Psych Exam: Appropriate Responses Psych Remarks Nods to commands (Petra Banks) Assessment/Plan Problem List: (1) CKD (chronic kidney disease), stage III ICD Codes: N18.3 - Chronic kidney disease, stage 3 (moderate) Status: Chronic Plan: DENNYS on CKD baseline creatinine has been in the range of 1.4 to 2.0 and it has increased and increased 2.83 possible related to diuresis with impaired kidney function, prerenal. Creatinine today at 2.40 and GFR of 34 Continue to hold Lasix Protein noted in urine Continue to make urine Will obtain UA and C+S Avoid Nephrotoxins. Possible pre renal, follow the urine out put and BMP. Anderson SD with good UOP 1350ml (2) Respiratory failure ICD Codes: J96.90 - Respiratory failure, unspecified, unspecified whether with hypoxia or hypercapnia Plan: Resting now On F1O2 at 45% via trach (3) Non-ischemic cardiomyopathy ICD Codes: I42.8 - Other cardiomyopathies Status: Chronic Plan: Lasix on hold with worsening renal indices On metoprolol (4) Paroxysmal atrial fibrillation ICD Codes: I48.0 - Paroxysmal atrial fibrillation Status: Acute Plan: Rate 90- 110 metoprolol and Cardizem On Eliquis for anticoagulation (5) Hypokalemia ICD Codes: E87.6 - Hypokalemia Plan: Continues to be low at 2.9 on IV replacement. Will order daily (6) Seizure ICD Codes: R56.9 - Unspecified convulsions Plan: continue Topamax (Petra Banks) Problem List: (1) CKD (chronic kidney disease), stage III ICD Codes: N18.3 - Chronic kidney disease, stage 3 (moderate) Status: Chronic Plan: DENNYS on CKD baseline creatinine has been in the range of 1.4 to 2.0 and it has increased and increased 2.83 possible related to diuresis with impaired kidney function, prerenal. Creatinine today at 2.40 and GFR of 34 Continue to hold Lasix Protein noted in urine Continue to make urine Will obtain UA and C+S Avoid Nephrotoxins. Possible pre renal, follow the urine out put and BMP. Anderson SD with good UOP 1350ml . K was low and replaced. (2) Respiratory failure ICD Codes: J96.90 - Respiratory failure, unspecified, unspecified whether with hypoxia or hypercapnia Plan: Resting now On F1O2 at 45% via trach (3) Non-ischemic cardiomyopathy ICD Codes: I42.8 - Other cardiomyopathies Status: Chronic Plan: Lasix on hold with worsening renal indices On metoprolol (4) Paroxysmal atrial fibrillation ICD Codes: I48.0 - Paroxysmal atrial fibrillation Status: Acute Plan: Rate 90- 110 metoprolol and Cardizem On Eliquis for anticoagulation (5) Hypokalemia ICD Codes: E87.6 - Hypokalemia Plan: Continues to be low at 2.9 on IV replacement. Will order daily (6) Seizure ICD Codes: R56.9 - Unspecified convulsions Plan: continue Topamax (Rajan Hoyt MD) Petra Banks Nov 27, 2017 09:53 Rajan Hoyt MD Nov 27, 2017 12:37
--- NOTE | 2017-11-27 10:56 | HHI.CCPN ---
Subjective Remarks/Hospital Course 57 y/o man with chronic nonischemic cardiomyopathy, EF 20% presents two days ago to ED with a-fib and RVR. Morbid obesity and chronic obesity hypoventilation syndrome. Developed bradycardia requiring atropine this morning , rushed to [facility] where on arrival he is obtunded with agonal respirations. Rate acceptable, depth shallow. Required bag mask ventilation, dopamine and levophed. Unable to intubate despite optic endoscope; proceeded to tracheostomy. Sats maintained > 80% throughout. Initial pH 7.14. 11/17: S/P resuscitation for probable hypercapneic respiratory arrest with bradycardia, hypotension. Has required mechanical ventilation. Perfusion improved after inotropic support instituted, now tapering. Elevated LFTs may reflect period of inadequate perfusion. 11/18: Doing well on T-piece. Resolving shock liver, DENNYS. Should go home with trach. 11/19: Fatigues on CPAP/T-piece. Will need LTAC. 11/20: stable. still volume overloaded by clinical exam. will need LTAC placement. SUBJECTIVE: 11/21: Tmax 1.3. Currently 99.9. Remains on PRvC ventilation. NG tube is been resumed. Remains on furosemide 40 mg IV 3 times daily. Heart rate slightly tachycardic 11/22: Pulse intermittently 150. Consistently 120s. Will add PO cardizem and attempt to get better rate control - permanent a-fib. 11/23: Heart rate control improved on po cardizem. Slightly over-diuresed, will back off on lasix. 11/24: Persistent intractable coughing. Low grade fever. Deteriorating renal function. CXR with pulmonary venous congestion but no consolidation or infiltrate. 11/25: Unable to wean ventilator. Hold lasix today, review pending renal function. 11/26: No events over the night. Patient doing well, sat in chair, now back in bed. Good spirits, follows commands. Afebrile. I/O 2444/675. 11/27: No events throughout the night. This AM, patient is resting comfortable. Afebrile, I/O 2537/1350. ROS - unobtainable - patient is intubated Objective Vital Signs Date Time Temp Pulse Resp B/P (MAP) Pulse Ox O2 Delivery O2 Flow Rate FiO2 11/27/17 10:00 112 11/27/17 08:14 45 1/24/18 08:05 97 11/27/17 08:00 97.3 19 147/71 (96) Intake and Output 11/27/17 11/27/17 11/28/17 08:00 16:00 00:00 Intake Total 793 ml Output Total 550.0 ml Balance 243.0 ml Result Diagram: 11/27/17 0515 11/27/17 0515 Other Results Laboratory Tests Test 11/27/17 05:14 Blood Gas Puncture Site IV Blood Gas Patient Temperature 98.6 Blood Gas HCO3 23 mmol/L (22-26) Blood Gas Base Excess -0.7 mmol/L (-2-2) Blood Gas Oxygen Saturation 61 % (90-100) Arterial Blood pH 7.40 (7.380-7.420) Arterial Blood Partial Pressure CO2 38 mmHg (38-42) Arterial Blood Partial Pressure O2 36 mmHg (61-120) Arterial Blood Oxygen Content 10.3 Vol % (12.0-20.0) Arterial Blood Carboxyhemoglobin 0.9 % (0-4) Arterial Blood Methemoglobin 0.8 % (0-2) Blood Gas Hemoglobin 12.0 G/DL (12.0-16.0) Oxygen Delivery Device VENTILATOR Blood Gas Liter Flow L/M Blood Gas Ventilator Setting PRVC / AC / Blood Gas Inspired Oxygen 35 % Imaging Last Impressions Chest X-Ray 11/19/17 0000 Signed Impressions: Service Date/Time: Sunday, November 19, 2017 11:33 - CONCLUSION: Improved basilar opacities essentially cleared on the right and minimal residual on the left. Efrain Dimas MD Abdomen X-Ray 11/16/17 0000 Signed Impressions: Service Date/Time: Thursday, November 16, 2017 09:53 - CONCLUSION: Nasogastric tube tip in the region of the distal stomach. Jose Bruno MD Objective Remarks General - Middle age gentleman, resting comfortable, ill appearing, in no distress HEENT - pupils equal, reactive, sclerae anicteric, neck supple, no nuchal rigidity, neck veins not distended, + trach (XLT) CV - irregular S1, S2, no murmurs Chest - still with coarse breaths sounds b/l, good air entry, no wheezes Abdomen - soft, non-tender, obese, BS present Skin - no rashes, no cyanosis Extremities - warm and well perfused, 1+ edema, + peripheral pulses, no clubbing Neuro - awake, alert, follows commands, moves all extremities A/P Problem List: (1) Acute on chronic respiratory failure with hypoxemia ICD Code: J96.21 - Acute and chronic respiratory failure with hypoxia (2) Symptomatic bradycardia ICD Code: R00.1 - Bradycardia, unspecified Status: Acute (3) Morbid obesity with BMI of 50.0-59.9, adult ICD Code: E66.01 - Morbid (severe) obesity due to excess calories; Z68.43 - Body mass index (BMI) 50-59.9 , adult Status: Acute (4) Atrial fibrillation ICD Code: I48.91 - Unspecified atrial fibrillation Status: Chronic (5) CKD (chronic kidney disease), stage III ICD Code: N18.3 - Chronic kidney disease, stage 3 (moderate) Status: Chronic (6) Chronic systolic CHF (congestive heart failure) ICD Code: I50.22 - Chronic systolic (congestive) heart failure Status: Chronic Assessment and Plan 1. Acute hypercapneic and hypoxic respiratory failure s/p emergent trach - improved 2. Afib/flutter with RVR - rate controlled 3. Mixed gram negative bronchitis vs pneumonia - afebrile, minimal leukocytosis 4. DENNYS on CKD - slowly improving, followed by nephrology 5. Hypokalemia - still low despite repletion 6. NICM with rEF 20% 7. Shock liver, likely secondary to hypoperfusion - improving 8. H/o seizure d/o 9. H/o cardiac arrest 10. DM 11. Possible CHINO/OHS 12. Enterococcus in urine - likely colonizer 1. Continue PRVC at current vent settings. Pip 29, synchronized with vent, no auto PEEP. SBT today. Trach changed to XLT yesterday 2. Ventilator bundle and bronchodilators 3. Ceftriaxone, started on 11/24 4. Additional potassium repletion 5. OOB to chair 6. On metropolol and cardizem. 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 On apixaban 7. Restart amiodarone once liver enzymes normalize (200 mg QD) and will d/c cardizem 8. Will need FABRICE/ARB and spironolactone once renal function improves 9. Continue statin 10. On topiramate for underlying seizure disorder 11. Glycemic control with insulin sliding scale 12. TF with nepro. Increase free water 13. GI prophylaxis 14. DVT prophylaxis addressed Overall impression: Would benefit from LTAC placement. Probably needs permanent trach. Jesus Broussard MD Nov 27, 2017 10:56
[2017-11-27] MEDS: ONDANSETRON HCL 4 MG/2 ML VIAL IV PUSH PRN ×2 (10:59→20:05)
--- NOTE | 2017-11-27 11:17 | RADRPT ---
EXAM DATE/TIME: 11/27/2017 10:56 [facility] COMPARISON: CHEST SINGLE AP, November 24, 2017, 6:39. INDICATIONS : Respiratory disease. MEDICAL HISTORY : Congestive heart failure. Atrial fibrillation. SURGICAL HISTORY : None. ENCOUNTER: Subsequent ACUITY: 2 weeks PAIN SCORE: Non-responsive. LOCATION: chest FINDINGS: Tracheostomy tube in good position. Central line has been removed. Moderate cardiomegaly persists. Mild congestive failure is evident. Minimal bibasilar parenchymal changes are noted. CONCLUSION: Cardiomegaly with mild congestive failure, minimal improvement. Rell Valentin MD FACR on November 27, 2017 at 11:14 Board Certified Radiologist. This report was verified electronically.
[2017-11-27] MEDS: ATORVASTATIN 80 MG TAB PO SCH (20:04)
[2017-11-28] VITALS (16 sets, daily range): BP systolic 108–158; BP diastolic 68–87; PULSE 84–105; RESP 20–28; TEMP 97.6–98.6; O2SAT 98–100
[2017-11-28] MEDS: CHLORHEXIDINE GLUCONATE 2 % 1 PACK (2 CLOTHS) TOP SCH (03:06)
[2017-11-28 04:19] LABS: BASOPHIL # 0.2 TH/MM3 (0-0.2); BASOPHIL % 0.9 % (0.0-2.0); EOSINOPHIL # 0.2 TH/MM3 (0-0.4); EOSINOPHIL % 1.1 % (0.0-4.0); HEMATOCRIT 38.2 % (39.0-51.0); HEMOGLOBIN 12.3 GM/DL (13.0-17.0); LYMPH % 9.4 % (9.0-44.0); LYMPHOCYTE # 1.7 TH/MM3 (1.0-4.8); MEAN CELL VOLUME 88.5 FL (80.0-100.0); MEAN CORPUSCULAR HEMOGLOBIN 28.5 PG (27.0-34.0); MEAN CORPUSCULAR HGB CONC 32.2 % (32.0-36.0); MEAN PLATELET VOLUME 11.4 FL (7.0-11.0); MONO % 8.4 % (0.0-8.0); MONOCYTE # 1.6 TH/MM3 (0-0.9); NEUT % 80.2 % (16.0-70.0); PLATELET COUNT 203 TH/MM3 (150-450); RED BLOOD COUNT 4.32 MIL/MM3 (4.50-5.90); RED CELL DISTRIBUTION WIDTH 14.7 % (11.6-17.2); WHITE BLOOD COUNT 18.7 TH/MM3 (4.0-11.0)
[2017-11-28 04:43] LABS: BICARBONATE 22.2 MEQ/L (21.0-32.0); CALCIUM 8.7 MG/DL (8.5-10.1); CREATININE 2.35 MG/DL (0.60-1.30)
[2017-11-28] MEDS: cefTRIAXone INJ 1,000 MG in SODIUM CHLORIDE 0.9% INJ 100 ML IV SCH (05:21)
[2017-11-28] MEDS: POTASSIUM CHLOR 40 MEQ PREMIX 100 ML IV SCH ×2 (05:21→09:15)
[2017-11-28] MEDS: ARTIFICIAL TEARS OPTH SOLN 15 ML BTL EACH EYE SCH ×3 (05:33→22:06)
[2017-11-28] MEDS: DILTIAZEM HCL 60 MG TAB PO SCH ×4 (05:33→23:42)
[2017-11-28] MEDS: INSULIN NovoLIN REGULAR SUPPLEMENTAL SCALE SQ SCH ×3 (06:00→17:42)
[2017-11-28] MEDS: CHLORHEXIDINE 0.12% (ORAL KIT) 15 ML CUP MT SCH ×2 (08:00→20:00)
[2017-11-28] MEDS: POLYETHYLENE GLYCOL 17 GM PKG NG SCH ×2 (09:00→22:02)
[2017-11-28] MEDS: SODIUM CHLORIDE 0.9% FLUSH 10 ML FLUSH IV FLUSH SCH ×2 (09:00→22:06)
[2017-11-28] MEDS: DOCUSATE SODIUM 50 MG/SENNA 8.6 MG TAB PO SCH ×2 (09:00→21:00)
[2017-11-28] MEDS: POTASSIUM CHLORIDE 20 MEQ PWD PACKET NG SCH (09:00)
[2017-11-28] MEDS: FAMOTIDINE 20 MG TAB NG SCH ×2 (09:08→22:03)
[2017-11-28] MEDS: METOPROLOL TARTRATE 100 MG TAB PO SCH ×2 (09:08→22:03)
[2017-11-28] MEDS: APIXABAN 5 MG TABLET PO SCH ×2 (09:08→22:03)
[2017-11-28] MEDS: TOPIRAMATE 200 MG TAB PO SCH (09:08)
--- NOTE | 2017-11-28 09:33 | HHI.NPPN ---
Subjective General Problems: Anemia, Edema, Heart Disease, Obesity Renal Failure: Chronic, Acute, Stage IV History of Present Illness Patient is a 57-year-old -Maced[place] male with past medical history of seizure disorder, chronic systolic congestive heart failure, hx of respiratory failure requiring tracheostomy placement, hx of cardiogenic shock with PEA arrest, chronic kidney disease, hypertension, diabetes mellitus, atrial fibrillation who was admitted with increased swelling and afib RVR. I was called to see the patient for elevated BUN and creatinine. The patient has a known history of chronic kidney disease and it seems like his baseline creatinine has been in the range of 1.4 to 2.0 and it has increased now at 2.83. Chest Xray noted with pulmonary edema. On ventilator via trach at 40 % FiO2 and weaning trial this morning. Was receiving lasix 40 mg daily which is on hold for elevating renal indices and patient is receiving IVF NS at 100 ml per hour for 1 bag. The patient is not able to give any history because he has a tracheostomy but he is responding to verbal commands and he seems to be fully awake in good spirits. Additional Remarks On ventilator resting FiO2 at 40%. Good UOP. Minimal edema. (Petra Banks) Additional Remarks Now on T-Piece trial. (Rajan Hoyt MD) Review of Systems Respiratory Lungs: Sputum (Petra Banks) Objective Data Data Vital Signs Date Time Temp Pulse Resp B/P (MAP) Pulse Ox O2 Delivery O2 Flow Rate FiO2 11/28/17 08:40 40 11/28/17 06:00 104 11/28/17 04:00 98.0 100 22 147/85 (105) 100 11/28/17 04:00 100 11/28/17 04:00 45 11/28/17 03:57 100 40 11/28/17 02:00 94 11/28/17 00:00 98.3 102 24 158/73 (101) 98 11/28/17 00:00 102 11/28/17 00:00 45 11/27/17 23:52 99 40 11/27/17 22:00 96 11/27/17 20:22 100 40 11/27/17 20:00 107 11/27/17 20:00 45 11/27/17 20:00 99.3 108 21 133/92 (106) 100 11/27/17 18:00 97 11/27/17 16:00 98.4 106 22 128/81 (97) 100 11/27/17 16:00 112 11/27/17 16:00 45 11/27/17 15:40 100 45 11/27/17 14:00 108 11/27/17 12:21 99 45 11/27/17 12:00 115 11/27/17 12:00 45 11/27/17 12:00 98.1 114 21 137/81 (99) 100 11/27/17 10:00 112 (Petra Banks) -: 11/28/17 0355 11/28/17 0355 Physical Exam General Appearance: Obese (Petra Banks) Neck Neck Remarks trach (Petra BanksP) Pulmonary Resp Exam: Decreased Bases (Petra BanksP) Cardiology CV Exam: Irregular (Petra BanksP) Gastrointestinal/Abdomen GI Exam: Non-Tender, Bowel Sounds Present (Petra BanksP) Genitourinary Exam: Flank Non-Tender (Petra BanksP) Integumentary Skin Exam: Clear, Warm (Petra BanksP) Extremeties Extremities Exam: Trace Edema (Petra BanksP) Neurologic Neuro Exam: Alert, Awake (Petra BanksP) Psychiatric Psych Exam: Appropriate Responses Psych Remarks Nods to commands (Petra BanksP) Assessment/Plan Problem List: (1) CKD (chronic kidney disease), stage III ICD Codes: N18.3 - Chronic kidney disease, stage 3 (moderate) Status: Chronic Plan: DENNYS on CKD baseline creatinine has been in the range of 1.4 to 2.0 and it has increased and increased 2.83 possible related to diuresis with impaired kidney function, prerenal. Creatinine today at 2.40 and GFR of 34 Continue to hold Lasix Trace edema noted. Protein noted in urine Continues to make urine Avoid Nephrotoxins. Possible pre renal, follow the urine out put and BMP. Anderson SD with good output Potassium low at 2.7. Replacement increased Hypernatremia with sodium of 149. On water flushed per NG tube may need to be increased. (2) Respiratory failure ICD Codes: J96.90 - Respiratory failure, unspecified, unspecified whether with hypoxia or hypercapnia Plan: Resting now On F1O2 at 45% via trach (3) Non-ischemic cardiomyopathy ICD Codes: I42.8 - Other cardiomyopathies Status: Chronic Plan: Lasix on hold with worsening renal indices On metoprolol (4) Paroxysmal atrial fibrillation ICD Codes: I48.0 - Paroxysmal atrial fibrillation Status: Acute Plan: Rate 90- 110 metoprolol and Cardizem On Eliquis for anticoagulation (5) Hypokalemia ICD Codes: E87.6 - Hypokalemia Plan: Continues to be low at 2.7 on replacement. (6) Seizure ICD Codes: R56.9 - Unspecified convulsions Plan: continue Topamax (Petra Banks) Problem List: (1) CKD (chronic kidney disease), stage III ICD Codes: N18.3 - Chronic kidney disease, stage 3 (moderate) Status: Chronic Plan: DENNYS on CKD baseline creatinine has been in the range of 1.4 to 2.0 and it has increased and increased 2.83 possible related to diuresis with impaired kidney function, prerenal. Creatinine today at 2.40 and GFR of 34 Continue to hold Lasix Trace edema noted. Protein noted in urine Continues to make urine Avoid Nephrotoxins. Possible pre renal, follow the urine out put and BMP. Anderson SD with good output Potassium low at 2.7. Replacement increased Hypernatremia with sodium of 149. On water flushed per NG tube may need to be increased. Follow the urine out put and BMP. (2) Respiratory failure ICD Codes: J96.90 - Respiratory failure, unspecified, unspecified whether with hypoxia or hypercapnia Plan: Resting now On F1O2 at 45% via trach (3) Non-ischemic cardiomyopathy ICD Codes: I42.8 - Other cardiomyopathies Status: Chronic Plan: Lasix on hold with worsening renal indices On metoprolol (4) Paroxysmal atrial fibrillation ICD Codes: I48.0 - Paroxysmal atrial fibrillation Status: Acute Plan: Rate 90- 110 metoprolol and Cardizem On Eliquis for anticoagulation (5) Hypokalemia ICD Codes: E87.6 - Hypokalemia Plan: Continues to be low at 2.7 on replacement. (6) Seizure ICD Codes: R56.9 - Unspecified convulsions Plan: continue Topamax (Rajan Hoyt MD) Petra Banks Nov 28, 2017 09:33 Rajan Hoyt MD Nov 28, 2017 16:16
--- NOTE | 2017-11-28 11:31 | HHI.CCPN ---
Subjective Remarks/Hospital Course 57 y/o man with chronic nonischemic cardiomyopathy, EF 20% presents two days ago to ED with a-fib and RVR. Morbid obesity and chronic obesity hypoventilation syndrome. Developed bradycardia requiring atropine this morning , rushed to [facility] where on arrival he is obtunded with agonal respirations. Rate acceptable, depth shallow. Required bag mask ventilation, dopamine and levophed. Unable to intubate despite optic endoscope; proceeded to tracheostomy. Sats maintained > 80% throughout. Initial pH 7.14. 11/17: S/P resuscitation for probable hypercapneic respiratory arrest with bradycardia, hypotension. Has required mechanical ventilation. Perfusion improved after inotropic support instituted, now tapering. Elevated LFTs may reflect period of inadequate perfusion. 11/18: Doing well on T-piece. Resolving shock liver, DENNYS. Should go home with trach. 11/19: Fatigues on CPAP/T-piece. Will need LTAC. 11/20: stable. still volume overloaded by clinical exam. will need LTAC placement. SUBJECTIVE: 11/21: Tmax 1.3. Currently 99.9. Remains on PRvC ventilation. NG tube is been resumed. Remains on furosemide 40 mg IV 3 times daily. Heart rate slightly tachycardic 11/22: Pulse intermittently 150. Consistently 120s. Will add PO cardizem and attempt to get better rate control - permanent a-fib. 11/23: Heart rate control improved on po cardizem. Slightly over-diuresed, will back off on lasix. 11/24: Persistent intractable coughing. Low grade fever. Deteriorating renal function. CXR with pulmonary venous congestion but no consolidation or infiltrate. 11/25: Unable to wean ventilator. Hold lasix today, review pending renal function. 11/26: No events over the night. Patient doing well, sat in chair, now back in bed. Good spirits, follows commands. Afebrile. I/O 2444/675. 11/27: No events throughout the night. This AM, patient is resting comfortable. Afebrile, I/O 2537/1350. 11/28: Patient did well through the night. This AM, awake, doing great on PS 5/ 5. Tmax 99.3, I/O 1335/950. ROS - unobtainable - patient is intubated Objective Vital Signs Date Time Temp Pulse Resp B/P (MAP) Pulse Ox O2 Delivery O2 Flow Rate FiO2 11/28/17 10:00 100 11/28/17 08:40 40 11/28/17 08:00 98.6 22 120/87 (98) 100 Intake and Output 11/28/17 11/28/17 11/29/17 08:00 16:00 00:00 Intake Total 369 ml Output Total 350 ml Balance 19 ml Result Diagram: 11/28/17 0355 11/28/17 0355 Other Results Microbiology Date/Time Source Procedure Growth Status 11/25/17 20:38 Urine Catheterized Urine Urine Culture - Final Enterococcus Faecalis Complete Imaging Last Impressions Chest X-Ray 11/19/17 0000 Signed Impressions: Service Date/Time: Sunday, November 19, 2017 11:33 - CONCLUSION: Improved basilar opacities essentially cleared on the right and minimal residual on the left. Efrain Dimas MD Abdomen X-Ray 11/16/17 0000 Signed Impressions: Service Date/Time: Thursday, November 16, 2017 09:53 - CONCLUSION: Nasogastric tube tip in the region of the distal stomach. Jose Bruno MD Objective Remarks General - middle age gentleman, awake, ill appearing, in no distress HEENT - pupils are equal, reactive, sclerae are anicteric, neck is supple, no neck rigidity, no JVD, + trach (XLT) CV - irregular S1, S2, no murmurs Chest - clearer breaths sounds b/l, good air entry, no wheezes Abdomen - soft, non-tender, obese, BS present Extremities - warm, 1+ edema, + peripheral pulses Neuro - awake, alert, follows commands, moves all extremities A/P Problem List: (1) Acute on chronic respiratory failure with hypoxemia ICD Code: J96.21 - Acute and chronic respiratory failure with hypoxia (2) Symptomatic bradycardia ICD Code: R00.1 - Bradycardia, unspecified Status: Acute (3) Morbid obesity with BMI of 50.0-59.9, adult ICD Code: E66.01 - Morbid (severe) obesity due to excess calories; Z68.43 - Body mass index (BMI) 50-59.9 , adult Status: Acute (4) Atrial fibrillation ICD Code: I48.91 - Unspecified atrial fibrillation Status: Chronic (5) CKD (chronic kidney disease), stage III ICD Code: N18.3 - Chronic kidney disease, stage 3 (moderate) Status: Chronic (6) Chronic systolic CHF (congestive heart failure) ICD Code: I50.22 - Chronic systolic (congestive) heart failure Status: Chronic Assessment and Plan 1. Acute hypercapneic and hypoxic respiratory failure s/p emergent trach - improved 2. Afib/flutter with RVR - rate controlled 3. Mixed gram negative bronchitis vs pneumonia - afebrile, minimal leukocytosis 4. DENNYS on CKD - slowly improving, followed by nephrology 5. Hypokalemia - still low despite aggressive repletion 6. NICM with rEF 20% 7. Shock liver, likely secondary to hypoperfusion - improving 8. H/o seizure d/o 9. H/o cardiac arrest 10. DM 11. Possible CHINO/OHS 12. Enterococcus in urine - likely colonizer 13. Hypernatremia - started on free water 1. Attempt T piece as tolerated and place back on PRVC at night 2. Ventilator bundle and bronchodilators 3. Ceftriaxone, started on 11/24 4. Additional potassium repletion 5. OOB to chair 6. On metropolol and cardizem. buttermaker will need to stop cardizem due to negative inotropy effect. On apixaban 7. Restart amiodarone once liver enzymes normalize (200 mg QD) and will d/c cardizem 8. Will need FABRICE/ARB and spironolactone once renal function improves 9. Continue statin 10. On topiramate for underlying seizure disorder 11. Glycemic control with insulin sliding scale 12. TF with nepro. Increase free water 13. GI prophylaxis 14. DVT prophylaxis addressed Overall impression: Would benefit from LTAC placement. Probably needs permanent trach. Jesus Broussard MD Nov 28, 2017 11:31
[2017-11-28] MEDS: MORPHINE SULFATE 2 MG/ML INJ IV PUSH PRN ×2 (12:15→17:42)
[2017-11-28] MEDS ORDERED: POTASSIUM CHLOR 40 MEQ PREMIX 100 ML IV ONE (21:15)
[2017-11-28] MEDS ORDERED: POTASSIUM CHLORIDE 20 MEQ PWD PACKET NG ONE (21:15)
[2017-11-28] MEDS: ATORVASTATIN 80 MG TAB PO SCH (22:03)
[2017-11-29] VITALS (18 sets, daily range): BP systolic 107–130; BP diastolic 64–81; PULSE 81–95; RESP 19–26; TEMP 97.7–98.2; O2SAT 95–100
[2017-11-29] MEDS: CHLORHEXIDINE GLUCONATE 2 % 1 PACK (2 CLOTHS) TOP SCH (04:00)
[2017-11-29] MEDS: DILTIAZEM HCL 60 MG TAB PO SCH ×3 (05:06→18:00)
[2017-11-29] MEDS: ARTIFICIAL TEARS OPTH SOLN 15 ML BTL EACH EYE SCH ×3 (05:07→21:23)
[2017-11-29] MEDS: cefTRIAXone INJ 1,000 MG in SODIUM CHLORIDE 0.9% INJ 100 ML IV SCH (05:33)
[2017-11-29] MEDS: INSULIN NovoLIN REGULAR SUPPLEMENTAL SCALE SQ SCH ×4 (06:00→18:00)
[2017-11-29] MEDS: CHLORHEXIDINE 0.12% (ORAL KIT) 15 ML CUP MT SCH ×2 (08:00→21:22)
[2017-11-29] MEDS: SODIUM CHLORIDE 0.9% FLUSH 10 ML FLUSH IV FLUSH SCH ×2 (08:51→21:00)
[2017-11-29] MEDS: DOCUSATE SODIUM 50 MG/SENNA 8.6 MG TAB PO SCH ×2 (08:52→21:00)
[2017-11-29] MEDS: FAMOTIDINE 20 MG TAB NG SCH ×2 (08:52→21:22)
[2017-11-29] MEDS: POTASSIUM CHLORIDE 20 MEQ PWD PACKET NG SCH (08:52)
[2017-11-29] MEDS: POLYETHYLENE GLYCOL 17 GM PKG NG SCH ×2 (08:52→21:00)
[2017-11-29] MEDS: TOPIRAMATE 200 MG TAB PO SCH (08:52)
[2017-11-29] MEDS: METOPROLOL TARTRATE 100 MG TAB PO SCH ×2 (08:52→21:23)
[2017-11-29] MEDS: APIXABAN 5 MG TABLET PO SCH ×2 (08:52→21:22)
--- NOTE | 2017-11-29 08:57 | HHI.CCPN ---
Subjective Remarks/Hospital Course 57 y/o man with chronic nonischemic cardiomyopathy, EF 20% presents two days ago to ED with a-fib and RVR. Morbid obesity and chronic obesity hypoventilation syndrome. Developed bradycardia requiring atropine this morning , rushed to [facility] where on arrival he is obtunded with agonal respirations. Rate acceptable, depth shallow. Required bag mask ventilation, dopamine and levophed. Unable to intubate despite optic endoscope; proceeded to tracheostomy. Sats maintained > 80% throughout. Initial pH 7.14. 11/17: S/P resuscitation for probable hypercapneic respiratory arrest with bradycardia, hypotension. Has required mechanical ventilation. Perfusion improved after inotropic support instituted, now tapering. Elevated LFTs may reflect period of inadequate perfusion. 11/18: Doing well on T-piece. Resolving shock liver, DENNYS. Should go home with trach. 11/19: Fatigues on CPAP/T-piece. Will need LTAC. 11/20: stable. still volume overloaded by clinical exam. will need LTAC placement. SUBJECTIVE: 11/21: Tmax 1.3. Currently 99.9. Remains on PRvC ventilation. NG tube is been resumed. Remains on furosemide 40 mg IV 3 times daily. Heart rate slightly tachycardic 11/22: Pulse intermittently 150. Consistently 120s. Will add PO cardizem and attempt to get better rate control - permanent a-fib. 11/23: Heart rate control improved on po cardizem. Slightly over-diuresed, will back off on lasix. 11/24: Persistent intractable coughing. Low grade fever. Deteriorating renal function. CXR with pulmonary venous congestion but no consolidation or infiltrate. 11/25: Unable to wean ventilator. Hold lasix today, review pending renal function. 11/26: No events over the night. Patient doing well, sat in chair, now back in bed. Good spirits, follows commands. Afebrile. I/O 2444/675. 11/27: No events throughout the night. This AM, patient is resting comfortable. Afebrile, I/O 2537/1350. 11/28: Patient did well through the night. This AM, awake, doing great on PS 5/ 5. Tmax 99.3, I/O 1335/950. 11/29: No events over the night. Patient awake, on CPAP. Tolerated T piece for 8 hours yesterday. Lower urine output over the last few hours. ROS - unobtainable - patient is intubated Objective Vital Signs Date Time Temp Pulse Resp B/P (MAP) Pulse Ox O2 Delivery O2 Flow Rate FiO2 11/29/17 07:55 40 11/29/17 07:55 97 11/29/17 06:00 90 11/29/17 04:00 98.1 20 115/81 (92) 11/28/17 20:00 T-piece 5.00 Intake and Output 11/29/17 11/29/17 11/30/17 08:00 16:00 00:00 Intake Total 820 ml Output Total 1300 ml Balance -480 ml Result Diagram: 11/28/17 0355 11/29/17 0630 Imaging Last Impressions Chest X-Ray 11/19/17 0000 Signed Impressions: Service Date/Time: Sunday, November 19, 2017 11:33 - CONCLUSION: Improved basilar opacities essentially cleared on the right and minimal residual on the left. Efrain Dimas MD Abdomen X-Ray 11/16/17 0000 Signed Impressions: Service Date/Time: Thursday, November 16, 2017 09:53 - CONCLUSION: Nasogastric tube tip in the region of the distal stomach. Jose Bruno MD Objective Remarks General - middle age gentleman, awake, ill appearing, in no distress HEENT - pupils equal, reactive, sclerae anicteric, neck supple, no JVD, + trach (XLT) CV - irregular heart sounds, no murmurs Chest - clear breaths sounds b/l, good air entry, no wheezes Abdomen - soft, non-tender, obese, BS present Extremities - warm, 1+ edema, + peripheral pulses Neuro - awake, alert, follows commands, moves all extremities A/P Problem List: (1) Acute on chronic respiratory failure with hypoxemia ICD Code: J96.21 - Acute and chronic respiratory failure with hypoxia (2) Symptomatic bradycardia ICD Code: R00.1 - Bradycardia, unspecified Status: Acute (3) Morbid obesity with BMI of 50.0-59.9, adult ICD Code: E66.01 - Morbid (severe) obesity due to excess calories; Z68.43 - Body mass index (BMI) 50-59.9 , adult Status: Acute (4) Atrial fibrillation ICD Code: I48.91 - Unspecified atrial fibrillation Status: Chronic (5) CKD (chronic kidney disease), stage III ICD Code: N18.3 - Chronic kidney disease, stage 3 (moderate) Status: Chronic (6) Chronic systolic CHF (congestive heart failure) ICD Code: I50.22 - Chronic systolic (congestive) heart failure Status: Chronic Assessment and Plan 1. Acute hypercapneic and hypoxic respiratory failure s/p emergent trach - improved, tolerating T piece 2. Afib/flutter with RVR - rate controlled 3. Mixed gram negative bronchitis vs pneumonia - afebrile, minimal leukocytosis 4. DENNYS on CKD - followed by nephrology 5. Hypokalemia - remains low despite aggressive repletion 6. NICM with rEF 20% 7. Shock liver, likely secondary to hypoperfusion - improving 8. H/o seizure d/o 9. H/o cardiac arrest 10. DM 11. Possible CHINO/OHS 12. Enterococcus in urine - likely colonizer 13. Hypernatremia - started on free water 1. T piece during daytime as tolerated and place back on PRVC at night 2. Ventilator bundle and bronchodilators 3. Ceftriaxone, started on 11/24 4. Additional potassium repletion 5. OOB to chair 6. On metropolol and cardizem. intermediate will need to stop cardizem due to negative inotropy effect. On apixaban 7. Restart amiodarone once liver enzymes normalize (200 mg QD) and will d/c cardizem 8. Will need FABRICE/ARB and spironolactone once renal function improves 9. Continue statin 10. On topiramate for underlying seizure disorder 11. Glycemic control with insulin sliding scale 12. TF with nepro. Increase free water 13. GI prophylaxis 14. DVT prophylaxis addressed 15. Remove central line Overall impression: Would benefit from LTAC placement. Probably needs permanent trach. Jesus Broussard MD Nov 29, 2017 08:57
[2017-11-29] MEDS ORDERED: POTASSIUM CHLOR 40 MEQ PREMIX 100 ML IV ONE (09:00)
[2017-11-29 09:18] LABS: AUTOMATED NEUTROPHIL # 11.5 TH/MM3 (1.8-7.7); BASOPHIL # 0.1 TH/MM3 (0-0.2); BASOPHIL % 0.8 % (0.0-2.0); EOSINOPHIL # 0.2 TH/MM3 (0-0.4); EOSINOPHIL % 1.6 % (0.0-4.0); HEMATOCRIT 38.9 % (39.0-51.0); HEMOGLOBIN 12.2 GM/DL (13.0-17.0); LYMPHOCYTE # 1.5 TH/MM3 (1.0-4.8); MEAN CELL VOLUME 89.7 FL (80.0-100.0); MEAN CORPUSCULAR HEMOGLOBIN 28.1 PG (27.0-34.0); MEAN CORPUSCULAR HGB CONC 31.4 % (32.0-36.0); MEAN PLATELET VOLUME 11.9 FL (7.0-11.0); MONO % 10.7 % (0.0-8.0); MONOCYTE # 1.6 TH/MM3 (0-0.9); NEUT % 76.9 % (16.0-70.0); PLATELET COUNT 232 TH/MM3 (150-450); RED BLOOD COUNT 4.34 MIL/MM3 (4.50-5.90); RED CELL DISTRIBUTION WIDTH 15.3 % (11.6-17.2); WHITE BLOOD COUNT 14.9 TH/MM3 (4.0-11.0)
[2017-11-29 09:41] LABS: BICARBONATE 20.7 MEQ/L (21.0-32.0); CREATININE 2.17 MG/DL (0.60-1.30)
[2017-11-29] MEDS: oxyCODONE HCL ORAL CONC 5 MG/0.25 ML SYRINGE NG PRN ×2 (10:14→21:38)
--- NOTE | 2017-11-29 12:15 | HHI.NPPN ---
Subjective General Problems: Anemia, Edema, Heart Disease, Obesity Renal Failure: Chronic, Acute, Stage IV History of Present Illness Patient is a 57-year-old -Greek male with past medical history of seizure disorder, chronic systolic congestive heart failure, hx of respiratory failure requiring tracheostomy placement, hx of cardiogenic shock with PEA arrest, chronic kidney disease, hypertension, diabetes mellitus, atrial fibrillation who was admitted with increased swelling and afib RVR. I was called to see the patient for elevated BUN and creatinine. The patient has a known history of chronic kidney disease and it seems like his baseline creatinine has been in the range of 1.4 to 2.0 and it has increased now at 2.83. Chest Xray noted with pulmonary edema. On ventilator via trach at 40 % FiO2 and weaning trial this morning. Was receiving lasix 40 mg daily which is on hold for elevating renal indices and patient is receiving IVF NS at 100 ml per hour for 1 bag. The patient is not able to give any history because he has a tracheostomy but he is responding to verbal commands and he seems to be fully awake in good spirits. Additional Remarks Resting comfortably in bed (Petra Banks) Objective Data Data Vital Signs Date Time Temp Pulse Resp B/P (MAP) Pulse Ox O2 Delivery O2 Flow Rate FiO2 11/29/17 10:14 98 T-piece 50 11/29/17 10:00 81 11/29/17 08:00 94 11/29/17 08:00 97.7 94 25 107/71 (83) 100 11/29/17 08:00 40 11/29/17 07:55 40 11/29/17 07:55 97 40 11/29/17 06:00 90 11/29/17 04:02 99 40 11/29/17 04:00 98.1 95 20 115/81 (92) 99 11/29/17 04:00 95 11/29/17 04:00 40 11/29/17 02:00 87 11/29/17 01:41 100 40 11/29/17 00:00 40 11/29/17 00:00 97.9 89 20 130/81 (97) 100 11/29/17 00:00 89 11/28/17 22:42 100 40 11/28/17 22:00 90 11/28/17 20:05 100 40 11/28/17 20:00 98.0 92 20 108/76 (87) 100 11/28/17 20:00 96 11/28/17 20:00 100 T-piece 5.00 40 11/28/17 20:00 40 11/28/17 18:00 84 11/28/17 18:00 20 11/28/17 16:00 97.6 101 21 114/68 (83) 99 11/28/17 16:00 101 11/28/17 14:23 99 T-piece 6.00 40 11/28/17 14:00 93 (Petra Banks) -: 11/29/17 0840 11/29/17 0840 Physical Exam General Appearance: Obese (Petra Banks) Neck Neck Remarks trach (Petra BanksP) Pulmonary Resp Exam: Decreased Bases (Petra BanksP) Cardiology CV Exam: Irregular (Petra BanksP) Gastrointestinal/Abdomen GI Exam: Non-Tender, Bowel Sounds Present (Petra BanksP) Genitourinary Exam: Flank Non-Tender (Petra BanksP) Integumentary Skin Exam: Clear, Warm (Petra BanksP) Extremeties Extremities Exam: Trace Edema (Petra BanksP) Neurologic Neuro Exam: Alert, Awake (Petra BanksP) Psychiatric Psych Exam: Appropriate Responses Psych Remarks Nods to commands (Petra BanksP) Assessment/Plan Problem List: (1) CKD (chronic kidney disease), stage III ICD Codes: N18.3 - Chronic kidney disease, stage 3 (moderate) Status: Chronic Plan: DENNYS on CKD baseline creatinine has been in the range of 1.4 to 2.0 and it has increased and increased 2.83 possible related to diuresis with impaired kidney function, prerenal. Creatinine today at 2.17 from 2.40 and GFR of 38 from 35 Continue to hold Lasix Trace edema noted. Protein noted in urine Continues to make urine Avoid Nephrotoxins. Possible pre renal, follow the urine out put and BMP. Anderson SD with good output Potassium low at 3.0 on replacement Hypernatremia with sodium of 150 from 149. On water flushed per NG tube may need to be increased. Follow the urine out put and BMP. (2) Respiratory failure ICD Codes: J96.90 - Respiratory failure, unspecified, unspecified whether with hypoxia or hypercapnia Plan: Resting now On F1O2 at 45% via trach (3) Non-ischemic cardiomyopathy ICD Codes: I42.8 - Other cardiomyopathies Status: Chronic Plan: Lasix on hold with worsening renal indices On metoprolol (4) Paroxysmal atrial fibrillation ICD Codes: I48.0 - Paroxysmal atrial fibrillation Status: Acute Plan: Rate 90- 110 metoprolol and Cardizem On Eliquis for anticoagulation (5) Hypokalemia ICD Codes: E87.6 - Hypokalemia Plan: Continues to be low at 3.0 on replacement. (6) Seizure ICD Codes: R56.9 - Unspecified convulsions Plan: continue Topamax (Petra Banks) Problem List: (1) CKD (chronic kidney disease), stage III ICD Codes: N18.3 - Chronic kidney disease, stage 3 (moderate) Status: Chronic Plan: DENNYS on CKD baseline creatinine has been in the range of 1.4 to 2.0 and it has increased and increased 2.83 possible related to diuresis with impaired kidney function, prerenal. Creatinine today at 2.17 from 2.40 and GFR of 38 from 35 Continue to hold Lasix Trace edema noted. Protein noted in urine Continues to make urine Avoid Nephrotoxins. Possible pre renal, follow the urine out put and BMP. Anderson SD with good output Potassium low at 3.0 on replacement Hypernatremia with sodium of 150 from 149. On water flushed per NG tube may need to be increased. Follow the urine out put and BMP. Urine out put decrease, add IVF, K was low replaced. Creatinine is improving. (2) Respiratory failure ICD Codes: J96.90 - Respiratory failure, unspecified, unspecified whether with hypoxia or hypercapnia Plan: Resting now On F1O2 at 45% via trach (3) Non-ischemic cardiomyopathy ICD Codes: I42.8 - Other cardiomyopathies Status: Chronic Plan: Lasix on hold with worsening renal indices On metoprolol (4) Paroxysmal atrial fibrillation ICD Codes: I48.0 - Paroxysmal atrial fibrillation Status: Acute Plan: Rate 90- 110 metoprolol and Cardizem On Eliquis for anticoagulation (5) Hypokalemia ICD Codes: E87.6 - Hypokalemia Plan: Continues to be low at 3.0 on replacement. (6) Seizure ICD Codes: R56.9 - Unspecified convulsions Plan: continue Topamax (Rajan Hoyt MD) Perta Banks Nov 29, 2017 12:14 Rajan Hoyt MD Nov 29, 2017 19:53
[2017-11-29] MEDS ORDERED: SODIUM CHLOR 0.9% 1000 ML INJ 1,000 ML IV SCH (16:00)
[2017-11-29] MEDS: ATORVASTATIN 80 MG TAB PO SCH (21:22)
[2017-11-29] MEDS: RESP: ALBUTEROL 2.5 MG/3 ML NEB (PRN) NEB (21:31)
[2017-11-30] VITALS (19 sets, daily range): BP systolic 108–147; BP diastolic 57–78; PULSE 70–98; RESP 16–26; TEMP 98.1–98.8; O2SAT 98–100
[2017-11-30] MEDS: DILTIAZEM HCL 60 MG TAB PO SCH ×5 (00:48→23:39)
[2017-11-30] MEDS: CHLORHEXIDINE GLUCONATE 2 % 1 PACK (2 CLOTHS) TOP SCH ×2 (04:00→19:16)
[2017-11-30] MEDS: RESP: ALBUTEROL 2.5 MG/3 ML NEB (PRN) NEB (04:45)
[2017-11-30] MEDS: ARTIFICIAL TEARS OPTH SOLN 15 ML BTL EACH EYE SCH ×3 (05:02→20:42)
[2017-11-30] MEDS: cefTRIAXone INJ 1,000 MG in SODIUM CHLORIDE 0.9% INJ 100 ML IV SCH (05:02)
[2017-11-30] MEDS: INSULIN NovoLIN REGULAR SUPPLEMENTAL SCALE SQ SCH ×5 (06:00→23:38)
[2017-11-30 07:53] LABS: AUTOMATED NEUTROPHIL # 8.2 TH/MM3 (1.8-7.7); BASOPHIL # 0.1 TH/MM3 (0-0.2); BASOPHIL % 0.9 % (0.0-2.0); EOSINOPHIL # 0.3 TH/MM3 (0-0.4); EOSINOPHIL % 2.3 % (0.0-4.0); HEMATOCRIT 38.4 % (39.0-51.0); LYMPH % 10.9 % (9.0-44.0); LYMPHOCYTE # 1.2 TH/MM3 (1.0-4.8); MEAN CELL VOLUME 90.9 FL (80.0-100.0); MEAN CORPUSCULAR HEMOGLOBIN 28.4 PG (27.0-34.0); MEAN CORPUSCULAR HGB CONC 31.2 % (32.0-36.0); MEAN PLATELET VOLUME 11.5 FL (7.0-11.0); MONO % 10.3 % (0.0-8.0); MONOCYTE # 1.1 TH/MM3 (0-0.9); NEUT % 75.6 % (16.0-70.0); PLATELET COUNT 210 TH/MM3 (150-450); RED BLOOD COUNT 4.23 MIL/MM3 (4.50-5.90); RED CELL DISTRIBUTION WIDTH 15.5 % (11.6-17.2); WHITE BLOOD COUNT 10.9 TH/MM3 (4.0-11.0)
[2017-11-30] MEDS: CHLORHEXIDINE 0.12% (ORAL KIT) 15 ML CUP MT SCH ×2 (08:00→20:00)
[2017-11-30] MEDS: FAMOTIDINE 20 MG TAB NG SCH ×2 (08:05→20:42)
[2017-11-30] MEDS: TOPIRAMATE 200 MG TAB PO SCH (08:07)
[2017-11-30] MEDS: APIXABAN 5 MG TABLET PO SCH ×2 (08:07→20:42)
[2017-11-30] MEDS: DOCUSATE SODIUM 50 MG/SENNA 8.6 MG TAB PO SCH ×2 (08:07→19:15)
[2017-11-30] MEDS: METOPROLOL TARTRATE 100 MG TAB PO SCH ×2 (08:07→20:42)
[2017-11-30] MEDS: POTASSIUM CHLORIDE 20 MEQ PWD PACKET NG SCH (08:08)
[2017-11-30] MEDS: POLYETHYLENE GLYCOL 17 GM PKG NG SCH ×2 (08:08→19:16)
[2017-11-30] MEDS: SODIUM CHLORIDE 0.9% FLUSH 10 ML FLUSH IV FLUSH SCH ×2 (08:08→20:42)
--- NOTE | 2017-11-30 08:53 | HHI.NPPN ---
Subjective General Problems: Anemia, Edema, Heart Disease, Obesity Renal Failure: Chronic, Acute, Stage IV History of Present Illness Patient is a 57-year-old -[place] male with past medical history of seizure disorder, chronic systolic congestive heart failure, hx of respiratory failure requiring tracheostomy placement, hx of cardiogenic shock with PEA arrest, chronic kidney disease, hypertension, diabetes mellitus, atrial fibrillation who was admitted with increased swelling and afib RVR. I was called to see the patient for elevated BUN and creatinine. The patient has a known history of chronic kidney disease and it seems like his baseline creatinine has been in the range of 1.4 to 2.0 and it has increased now at 2.83. Chest Xray noted with pulmonary edema. On ventilator via trach at 40 % FiO2 and weaning trial this morning. Was receiving lasix 40 mg daily which is on hold for elevating renal indices and patient is receiving IVF NS at 100 ml per hour for 1 bag. The patient is not able to give any history because he has a tracheostomy but he is responding to verbal commands and he seems to be fully awake in good spirits. Additional Remarks Significant stool output. Labs are pending. Creatinine had been improving. Hypernatremia is noted. Objective Data Data Vital Signs Date Time Temp Pulse Resp B/P (MAP) Pulse Ox O2 Delivery O2 Flow Rate FiO2 11/30/17 08:02 100 40 11/30/17 08:02 40 11/30/17 06:00 82 11/30/17 04:42 100 40 11/30/17 04:00 83 11/30/17 04:00 40 11/30/17 04:00 98.3 83 17 126/73 (90) 99 11/30/17 02:00 71 11/30/17 00:04 100 40 11/30/17 00:00 98.5 70 17 112/78 (89) 99 11/30/17 00:00 70 11/30/17 00:00 40 11/29/17 22:00 92 11/29/17 21:30 40 11/29/17 21:24 99 40 11/29/17 20:00 98.2 83 20 115/64 (81) 100 11/29/17 20:00 87 11/29/17 18:00 91 11/29/17 16:00 98.2 93 19 119/70 (86) 97 11/29/17 16:00 93 1/26/18 15:15 95 Trach Collar 50 11/29/17 14:00 91 11/29/17 12:00 98.1 90 26 109/77 (88) 98 11/29/17 12:00 90 11/29/17 10:14 98 T-piece 50 11/29/17 10:00 81 -: 11/30/17 0723 11/29/17 0840 Physical Exam General Appearance: Obese Throat Throat Remarks tracheostomy Pulmonary Resp Exam: Decreased Bases Cardiology CV Exam: Irregular Gastrointestinal/Abdomen GI Exam: Non-Tender, Bowel Sounds Present Genitourinary Exam: Flank Non-Tender Integumentary Skin Exam: Clear, Warm Extremeties Extremities Exam: Trace Edema Neurologic Neuro Exam: Alert, Awake Psychiatric Psych Exam: Appropriate Responses Assessment/Plan Problem List: (1) CKD (chronic kidney disease), stage III ICD Codes: N18.3 - Chronic kidney disease, stage 3 (moderate) Status: Chronic Plan: Likely pre-renal, may have progressed to ATN. Monitor. Avoid nephrotoxins. (2) Respiratory failure ICD Codes: J96.90 - Respiratory failure, unspecified, unspecified whether with hypoxia or hypercapnia Plan: Resting now On F1O2 at 45% via trach (3) Non-ischemic cardiomyopathy ICD Codes: I42.8 - Other cardiomyopathies Status: Chronic Plan: Lasix on hold with worsening renal indices On metoprolol (4) Paroxysmal atrial fibrillation ICD Codes: I48.0 - Paroxysmal atrial fibrillation Status: Acute Plan: Rate 90- 110 metoprolol and Cardizem On Eliquis for anticoagulation (5) Hypokalemia ICD Codes: E87.6 - Hypokalemia Plan: monitor, replace. (6) Seizure ICD Codes: R56.9 - Unspecified convulsions Plan: continue Topamax (7) Hypernatremia ICD Codes: E87.0 - Hyperosmolality and hypernatremia Plan: change IVF to 1/4NS Manuel Hartley MD Nov 30, 2017 08:53
[2017-11-30 09:18] LABS: BICARBONATE 18.6 MEQ/L (21.0-32.0); CALCIUM 8.5 MG/DL (8.5-10.1); CREATININE 2.07 MG/DL (0.60-1.30)
--- NOTE | 2017-11-30 10:29 | HHI.CCPN ---
Subjective Remarks/Hospital Course 57 y/o man with chronic nonischemic cardiomyopathy, EF 20% presents two days ago to ED with a-fib and RVR. Morbid obesity and chronic obesity hypoventilation syndrome. Developed bradycardia requiring atropine this morning , rushed to [facility] where on arrival he is obtunded with agonal respirations. Rate acceptable, depth shallow. Required bag mask ventilation, dopamine and levophed. Unable to intubate despite optic endoscope; proceeded to tracheostomy. Sats maintained > 80% throughout. Initial pH 7.14. 11/17: S/P resuscitation for probable hypercapneic respiratory arrest with bradycardia, hypotension. Has required mechanical ventilation. Perfusion improved after inotropic support instituted, now tapering. Elevated LFTs may reflect period of inadequate perfusion. 11/18: Doing well on T-piece. Resolving shock liver, DENNYS. Should go home with trach. 11/19: Fatigues on CPAP/T-piece. Will need LTAC. 11/20: stable. still volume overloaded by clinical exam. will need LTAC placement. SUBJECTIVE: 11/21: Tmax 1.3. Currently 99.9. Remains on PRvC ventilation. NG tube is been resumed. Remains on furosemide 40 mg IV 3 times daily. Heart rate slightly tachycardic 11/22: Pulse intermittently 150. Consistently 120s. Will add PO cardizem and attempt to get better rate control - permanent a-fib. 11/23: Heart rate control improved on po cardizem. Slightly over-diuresed, will back off on lasix. 11/24: Persistent intractable coughing. Low grade fever. Deteriorating renal function. CXR with pulmonary venous congestion but no consolidation or infiltrate. 11/25: Unable to wean ventilator. Hold lasix today, review pending renal function. 11/26: No events over the night. Patient doing well, sat in chair, now back in bed. Good spirits, follows commands. Afebrile. I/O 2444/675. 11/27: No events throughout the night. This AM, patient is resting comfortable. Afebrile, I/O 2537/1350. 11/28: Patient did well through the night. This AM, awake, doing great on PS 5/ 5. Tmax 99.3, I/O 1335/950. 11/29: No events over the night. Patient awake, on CPAP. Tolerated T piece for 8 hours yesterday. Lower urine output over the last few hours. 11/30: No events. Did well on T piece yesterday. Afebrile, I/O . Awake. ROS - unobtainable - patient is intubated Objective Vital Signs Date Time Temp Pulse Resp B/P (MAP) Pulse Ox O2 Delivery O2 Flow Rate FiO2 11/30/17 08:02 100 40 11/30/17 06:00 82 11/30/17 04:00 98.3 17 126/73 (90) 11/29/17 15:15 Trach Collar 11/28/17 20:00 5.00 Intake and Output 11/30/17 11/30/17 12/01/17 08:00 16:00 00:00 Intake Total 890 ml Output Total 850 ml Balance 40 ml Result Diagram: 11/30/17 0723 11/30/17 0723 Imaging Last Impressions Chest X-Ray 11/19/17 0000 Signed Impressions: Service Date/Time: Sunday, November 19, 2017 11:33 - CONCLUSION: Improved basilar opacities essentially cleared on the right and minimal residual on the left. Efrain Dimas MD Abdomen X-Ray 11/16/17 0000 Signed Impressions: Service Date/Time: Thursday, November 16, 2017 09:53 - CONCLUSION: Nasogastric tube tip in the region of the distal stomach. Jose Bruno MD Objective Remarks General - middle age gentleman, awake, ill appearing, in no distress HEENT - pupils are equal, reactive, sclerae are anicteric, neck is soft, neck veins not distended, + trach (XLT) CV - irregular S1, S2, no murmurs Chest - clear breath sounds b/l, no wheezes, good air entry Abdomen - soft, obese, non-tender, BS hyperactive Extremities - warm, 1+ edema, + peripheral pulses Neuro - awake, alert, follows commands, moves all extremities A/P Problem List: (1) Acute on chronic respiratory failure with hypoxemia ICD Code: J96.21 - Acute and chronic respiratory failure with hypoxia (2) Symptomatic bradycardia ICD Code: R00.1 - Bradycardia, unspecified Status: Acute (3) Morbid obesity with BMI of 50.0-59.9, adult ICD Code: E66.01 - Morbid (severe) obesity due to excess calories; Z68.43 - Body mass index (BMI) 50-59.9 , adult Status: Acute (4) Atrial fibrillation ICD Code: I48.91 - Unspecified atrial fibrillation Status: Chronic (5) CKD (chronic kidney disease), stage III ICD Code: N18.3 - Chronic kidney disease, stage 3 (moderate) Status: Chronic (6) Chronic systolic CHF (congestive heart failure) ICD Code: I50.22 - Chronic systolic (congestive) heart failure Status: Chronic Assessment and Plan 1. Acute hypercapneic and hypoxic respiratory failure s/p emergent trach - improved, tolerating T piece 2. Afib/flutter with RVR - rate controlled 3. Mixed gram negative bronchitis vs pneumonia - afebrile, minimal leukocytosis 4. DENNYS on CKD - slowly improving, good urine output, followed by nephrology 5. Hypokalemia - better 6. NICM with rEF 20% 7. Shock liver, likely secondary to hypoperfusion - improving 8. H/o seizure d/o 9. H/o cardiac arrest 10. DM 11. Possible CHINO/OHS 12. Enterococcus in urine - likely colonizer 13. Hypernatremia - started on free water 1. T piece during daytime as tolerated and place on PS at night 2. Ventilator bundle and bronchodilators 3. Ceftriaxone, started on 11/24 4. Additional potassium repletion 5. OOB to chair 6. On metropolol and cardizem. senior living will need to stop cardizem due to negative inotropy effect. On apixaban 7. Restart amiodarone once liver enzymes normalize (200 mg QD) and will d/c cardizem 8. Will need FABRICE/ARB and spironolactone once renal function improves 9. Continue statin 10. On topiramate for underlying seizure disorder 11. Glycemic control with insulin sliding scale 12. TF with nepro. Increase free water 13. GI prophylaxis 14. DVT prophylaxis addressed 15. Remove central line - done Overall impression: Would benefit from LTAC placement. Probably needs permanent trach. Jesus Broussard MD Nov 30, 2017 10:28
[2017-11-30] MEDS: SODIUM CHLORIDE 23.4% INJ 38.5 MEQ in WATER STERILE FOR INJ 1,000 ML IV SCH (14:06)
[2017-11-30] MEDS: ATORVASTATIN 80 MG TAB PO SCH (20:42)
[2017-12-01] VITALS (17 sets, daily range): BP systolic 110–138; BP diastolic 73–94; PULSE 77–100; RESP 19–26; TEMP 98–99.8; O2SAT 93–100
[2017-12-01] MEDS: ARTIFICIAL TEARS OPTH SOLN 15 ML BTL EACH EYE SCH ×3 (05:12→21:27)
[2017-12-01] MEDS: cefTRIAXone INJ 1,000 MG in SODIUM CHLORIDE 0.9% INJ 100 ML IV SCH (05:12)
[2017-12-01] MEDS: DILTIAZEM HCL 60 MG TAB PO SCH ×3 (05:12→17:30)
[2017-12-01] MEDS: MORPHINE SULFATE 2 MG/ML INJ IV PUSH PRN (05:54)
[2017-12-01] MEDS: INSULIN NovoLIN REGULAR SUPPLEMENTAL SCALE SQ SCH ×3 (06:00→17:25)
[2017-12-01 06:25] LABS: AUTOMATED NEUTROPHIL # 7.7 TH/MM3 (1.8-7.7); BASOPHIL # 0.1 TH/MM3 (0-0.2); BASOPHIL % 1.3 % (0.0-2.0); EOSINOPHIL # 0.2 TH/MM3 (0-0.4); EOSINOPHIL % 2.2 % (0.0-4.0); HEMATOCRIT 38.2 % (39.0-51.0); HEMOGLOBIN 12.3 GM/DL (13.0-17.0); LYMPH % 12.8 % (9.0-44.0); LYMPHOCYTE # 1.4 TH/MM3 (1.0-4.8); MEAN CELL VOLUME 88.9 FL (80.0-100.0); MEAN CORPUSCULAR HEMOGLOBIN 28.7 PG (27.0-34.0); MEAN CORPUSCULAR HGB CONC 32.2 % (32.0-36.0); MONO % 11.3 % (0.0-8.0); MONOCYTE # 1.2 TH/MM3 (0-0.9); NEUT % 72.4 % (16.0-70.0); PLATELET COUNT 219 TH/MM3 (150-450); RED CELL DISTRIBUTION WIDTH 15.2 % (11.6-17.2); WHITE BLOOD COUNT 10.7 TH/MM3 (4.0-11.0)
[2017-12-01 07:20] LABS: BICARBONATE 17.2 MEQ/L (21.0-32.0); CALCIUM 8.7 MG/DL (8.5-10.1); CREATININE 2.04 MG/DL (0.60-1.30)
[2017-12-01] MEDS: RESP: ALBUTEROL 2.5 MG/3 ML NEB (PRN) NEB (07:47)
[2017-12-01] MEDS: CHLORHEXIDINE 0.12% (ORAL KIT) 15 ML CUP MT SCH ×2 (08:00→20:00)
[2017-12-01] MEDS: APIXABAN 5 MG TABLET PO SCH ×2 (08:02→21:27)
[2017-12-01] MEDS: TOPIRAMATE 200 MG TAB PO SCH (08:02)
[2017-12-01] MEDS: DOCUSATE SODIUM 50 MG/SENNA 8.6 MG TAB PO SCH ×2 (08:03→21:00)
[2017-12-01] MEDS: FAMOTIDINE 20 MG TAB NG SCH ×2 (08:03→21:26)
[2017-12-01] MEDS: POLYETHYLENE GLYCOL 17 GM PKG NG SCH ×2 (08:03→21:00)
[2017-12-01] MEDS: METOPROLOL TARTRATE 100 MG TAB PO SCH ×2 (08:03→21:27)
[2017-12-01] MEDS: POTASSIUM CHLORIDE 20 MEQ PWD PACKET NG SCH (08:04)
[2017-12-01] MEDS: SODIUM CHLORIDE 0.9% FLUSH 10 ML FLUSH IV FLUSH SCH ×2 (08:04→21:00)
--- NOTE | 2017-12-01 08:33 | HHI.NPPN ---
Subjective General Problems: Anemia, Edema, Heart Disease, Obesity Renal Failure: Chronic, Acute, Stage IV History of Present Illness Patient is a 57-year-old -[place] male with past medical history of seizure disorder, chronic systolic congestive heart failure, hx of respiratory failure requiring tracheostomy placement, hx of cardiogenic shock with PEA arrest, chronic kidney disease, hypertension, diabetes mellitus, atrial fibrillation who was admitted with increased swelling and afib RVR. I was called to see the patient for elevated BUN and creatinine. The patient has a known history of chronic kidney disease and it seems like his baseline creatinine has been in the range of 1.4 to 2.0 and it has increased now at 2.83. Chest Xray noted with pulmonary edema. On ventilator via trach at 40 % FiO2 and weaning trial this morning. Was receiving lasix 40 mg daily which is on hold for elevating renal indices and patient is receiving IVF NS at 100 ml per hour for 1 bag. The patient is not able to give any history because he has a tracheostomy but he is responding to verbal commands and he seems to be fully awake in good spirits. Additional Remarks Renal function is stable. Non oliguric. Hypernatremia is slightly better. Hypokalemia is noted, replacement ordered. Objective Data Data Vital Signs Date Time Temp Pulse Resp B/P (MAP) Pulse Ox O2 Delivery O2 Flow Rate FiO2 12/01/17 07:40 30 12/01/17 07:40 96 30 12/01/17 07:25 20 12/01/17 06:00 77 12/01/17 04:00 98.9 100 21 123/73 (90) 95 12/01/17 04:00 100 12/01/17 04:00 40 12/01/17 03:43 99 30 12/01/17 02:00 90 12/01/17 00:00 40 12/01/17 00:00 82 12/01/17 00:00 98.9 82 19 128/73 (91) 100 11/30/17 23:35 100 30 11/30/17 22:00 81 11/30/17 21:41 40 11/30/17 21:30 99 30 11/30/17 20:11 98 40 11/30/17 20:00 83 11/30/17 20:00 98.8 83 26 122/59 (80) 100 1/27/18 18:00 88 11/30/17 16:00 98.1 82 16 108/67 (81) 100 11/30/17 16:00 82 11/30/17 14:00 98 11/30/17 12:00 86 11/30/17 12:00 98.5 86 20 147/75 (99) 100 11/30/17 10:45 100 T-piece 8.00 45 11/30/17 10:00 76 -: 12/01/17 0525 12/01/17 0525 Physical Exam General Appearance: Obese Throat Throat Remarks tracheostomy Pulmonary Resp Exam: Decreased Bases Cardiology CV Exam: Irregular Gastrointestinal/Abdomen GI Exam: Non-Tender, Bowel Sounds Present Genitourinary Exam: Flank Non-Tender Integumentary Skin Exam: Clear, Warm Extremeties Extremities Exam: Trace Edema Neurologic Neuro Exam: Alert, Awake Psychiatric Psych Exam: Appropriate Responses Assessment/Plan Problem List: (1) CKD (chronic kidney disease), stage III ICD Codes: N18.3 - Chronic kidney disease, stage 3 (moderate) Status: Chronic Plan: Likely pre-renal, may have progressed to ATN. Monitor. Avoid nephrotoxins. Stable renal function. Continue current management. (2) Respiratory failure ICD Codes: J96.90 - Respiratory failure, unspecified, unspecified whether with hypoxia or hypercapnia Plan: Resting now On F1O2 at 45% via trach (3) Non-ischemic cardiomyopathy ICD Codes: I42.8 - Other cardiomyopathies Status: Chronic Plan: Lasix on hold with worsening renal indices On metoprolol (4) Paroxysmal atrial fibrillation ICD Codes: I48.0 - Paroxysmal atrial fibrillation Status: Acute Plan: Rate 90- 110 metoprolol and Cardizem On Eliquis for anticoagulation (5) Hypokalemia ICD Codes: E87.6 - Hypokalemia Plan: replace. (6) Seizure ICD Codes: R56.9 - Unspecified convulsions Plan: continue Topamax (7) Hypernatremia ICD Codes: E87.0 - Hyperosmolality and hypernatremia Plan: changed IVF to 1/4NS Manuel Hartley MD Dec 01, 2017 08:33
[2017-12-01] MEDS ORDERED: POTASSIUM CHLOR 40 MEQ PREMIX 100 ML IV ONE (09:00)
[2017-12-01] MEDS: POTASSIUM CHLOR 20 MEQ PREMIX 100 ML IV SCH ×2 (09:06→11:16)
[2017-12-01] MEDS: SODIUM CHLORIDE 23.4% INJ 38.5 MEQ in WATER STERILE FOR INJ 1,000 ML IV SCH (11:15)
--- NOTE | 2017-12-01 11:31 | HHI.CCPN ---
Subjective Remarks/Hospital Course 57 y/o man with chronic nonischemic cardiomyopathy, EF 20% presents two days ago to ED with a-fib and RVR. Morbid obesity and chronic obesity hypoventilation syndrome. Developed bradycardia requiring atropine this morning , rushed to [facility] where on arrival he is obtunded with agonal respirations. Rate acceptable, depth shallow. Required bag mask ventilation, dopamine and levophed. Unable to intubate despite optic endoscope; proceeded to tracheostomy. Sats maintained > 80% throughout. Initial pH 7.14. 11/17: S/P resuscitation for probable hypercapneic respiratory arrest with bradycardia, hypotension. Has required mechanical ventilation. Perfusion improved after inotropic support instituted, now tapering. Elevated LFTs may reflect period of inadequate perfusion. 11/18: Doing well on T-piece. Resolving shock liver, DENNYS. Should go home with trach. 11/19: Fatigues on CPAP/T-piece. Will need LTAC. 11/20: stable. still volume overloaded by clinical exam. will need LTAC placement. SUBJECTIVE: 11/21: Tmax 1.3. Currently 99.9. Remains on PRvC ventilation. NG tube is been resumed. Remains on furosemide 40 mg IV 3 times daily. Heart rate slightly tachycardic 11/22: Pulse intermittently 150. Consistently 120s. Will add PO cardizem and attempt to get better rate control - permanent a-fib. 11/23: Heart rate control improved on po cardizem. Slightly over-diuresed, will back off on lasix. 11/24: Persistent intractable coughing. Low grade fever. Deteriorating renal function. CXR with pulmonary venous congestion but no consolidation or infiltrate. 11/25: Unable to wean ventilator. Hold lasix today, review pending renal function. 11/26: No events over the night. Patient doing well, sat in chair, now back in bed. Good spirits, follows commands. Afebrile. I/O 2444/675. 11/27: No events throughout the night. This AM, patient is resting comfortable. Afebrile, I/O 2537/1350. 11/28: Patient did well through the night. This AM, awake, doing great on PS 5/ 5. Tmax 99.3, I/O 1335/950. 11/29: No events over the night. Patient awake, on CPAP. Tolerated T piece for 8 hours yesterday. Lower urine output over the last few hours. 11/30: No events. Did well on T piece yesterday. Afebrile, I/O 2157/1974. Awake. 12/01: Patient resting comfortable, easily arousable. Afebrile. Objective Vital Signs Date Time Temp Pulse Resp B/P (MAP) Pulse Ox O2 Delivery O2 Flow Rate FiO2 12/01/17 10:15 100 40 12/01/17 10:00 81 12/01/17 08:00 98.0 26 126/75 (92) 11/30/17 10:45 T-piece 8.00 Intake and Output 12/01/17 12/01/17 12/02/17 08:00 16:00 00:00 Intake Total 940 ml Output Total 525 ml Balance 415 ml Result Diagram: 12/01/17 0525 12/01/17 0525 Imaging Last Impressions Chest X-Ray 11/19/17 0000 Signed Impressions: Service Date/Time: Sunday, November 19, 2017 11:33 - CONCLUSION: Improved basilar opacities essentially cleared on the right and minimal residual on the left. Efrain Dimas MD Abdomen X-Ray 11/16/17 0000 Signed Impressions: Service Date/Time: Thursday, November 16, 2017 09:53 - CONCLUSION: Nasogastric tube tip in the region of the distal stomach. Jose Bruno MD Objective Remarks General - middle age gentleman, awake, ill appearing, in no distress HEENT - pupils equal, reactive, sclerae anicteric, neck soft, no JVD, + trach ( XLT) - site clean CV - irregular heart sounds, no murmurs Chest - clear breath sounds b/l, no wheezes, good air entry Abdomen - soft, obese, non-tender, BS hyperactive Extremities - warm, 1+ edema, + peripheral pulses Neuro - awake, alert, follows commands, moves all extremities A/P Problem List: (1) Acute on chronic respiratory failure with hypoxemia ICD Code: J96.21 - Acute and chronic respiratory failure with hypoxia (2) Symptomatic bradycardia ICD Code: R00.1 - Bradycardia, unspecified Status: Acute (3) Morbid obesity with BMI of 50.0-59.9, adult ICD Code: E66.01 - Morbid (severe) obesity due to excess calories; Z68.43 - Body mass index (BMI) 50-59.9 , adult Status: Acute (4) Atrial fibrillation ICD Code: I48.91 - Unspecified atrial fibrillation Status: Chronic (5) CKD (chronic kidney disease), stage III ICD Code: N18.3 - Chronic kidney disease, stage 3 (moderate) Status: Chronic (6) Chronic systolic CHF (congestive heart failure) ICD Code: I50.22 - Chronic systolic (congestive) heart failure Status: Chronic Assessment and Plan 1. Acute hypercapneic and hypoxic respiratory failure s/p emergent trach - improved, tolerating T piece during daytime and PS at night 2. Afib/flutter with RVR - rate controlled 3. Mixed gram negative bronchitis vs pneumonia - afebrile, minimal leukocytosis 4. DENNYS on CKD - slowly improving, good urine output, followed by nephrology 5. Hypokalemia - today is worse 6. NICM with rEF 20% 7. Shock liver, likely secondary to hypoperfusion - improving 8. H/o seizure d/o 9. H/o cardiac arrest 10. DM 11. Possible CHINO/OHS 12. Enterococcus in urine - likely colonizer 13. Hypernatremia - better, started on free water 1. T piece during daytime as tolerated and place on PS at night 2. Ventilator bundle and bronchodilators 3. Ceftriaxone, stop today, completed a 7d course 4. Additional potassium repletion today 5. OOB to chair 6. On metropolol and cardizem. terminologist will need to stop cardizem due to negative inotropy effect. On apixaban 7. Restart amiodarone once liver enzymes normalize (200 mg QD) and will d/c cardizem 8. Will need FABRICE/ARB and spironolactone once renal function improves 9. Continue statin 10. On topiramate for underlying seizure disorder 11. Glycemic control with insulin sliding scale 12. TF with nepro and free water 13. GI prophylaxis 14. DVT prophylaxis addressed 15. Remove central line - done Overall impression: Would benefit from LTAC placement. Probably needs permanent trach. Jesus Broussard MD Dec 01, 2017 11:31
[2017-12-01] MEDS ORDERED: POTASSIUM CHLORIDE 20 MEQ PWD PACKET PO ONE (18:00)
[2017-12-01] MEDS: ATORVASTATIN 80 MG TAB PO SCH (21:26)
[2017-12-01] MEDS: oxyCODONE HCL ORAL CONC 5 MG/0.25 ML SYRINGE NG PRN (21:27)
[2017-12-02] VITALS (19 sets, daily range): BP systolic 107–154; BP diastolic 57–87; PULSE 73–114; RESP 21–26; TEMP 97.9–99.1; O2SAT 92–100
[2017-12-02] MEDS: DILTIAZEM HCL 60 MG TAB PO SCH ×4 (00:21→16:56)
[2017-12-02] MEDS: CHLORHEXIDINE GLUCONATE 2 % 1 PACK (2 CLOTHS) TOP SCH ×2 (02:04→19:30)
[2017-12-02 05:12] LABS: AUTOMATED NEUTROPHIL # 6.7 TH/MM3 (1.8-7.7); BASOPHIL # 0.1 TH/MM3 (0-0.2); BASOPHIL % 1.3 % (0.0-2.0); EOSINOPHIL # 0.2 TH/MM3 (0-0.4); EOSINOPHIL % 2.6 % (0.0-4.0); HEMATOCRIT 37.6 % (39.0-51.0); HEMOGLOBIN 12.2 GM/DL (13.0-17.0); LYMPHOCYTE # 1.5 TH/MM3 (1.0-4.8); MEAN CELL VOLUME 87.5 FL (80.0-100.0); MEAN CORPUSCULAR HEMOGLOBIN 28.4 PG (27.0-34.0); MEAN CORPUSCULAR HGB CONC 32.4 % (32.0-36.0); MEAN PLATELET VOLUME 11.8 FL (7.0-11.0); MONO % 10.5 % (0.0-8.0); NEUT % 69.6 % (16.0-70.0); PLATELET COUNT 226 TH/MM3 (150-450); RED CELL DISTRIBUTION WIDTH 14.9 % (11.6-17.2); WHITE BLOOD COUNT 9.6 TH/MM3 (4.0-11.0)
[2017-12-02 05:39] LABS: BICARBONATE 17.6 MEQ/L (21.0-32.0); CALCIUM 8.3 MG/DL (8.5-10.1); CREATININE 1.88 MG/DL (0.60-1.30)
[2017-12-02] MEDS: INSULIN NovoLIN REGULAR SUPPLEMENTAL SCALE SQ SCH ×4 (05:53→16:56)
[2017-12-02] MEDS: ARTIFICIAL TEARS OPTH SOLN 15 ML BTL EACH EYE SCH ×3 (05:53→21:19)
--- NOTE | 2017-12-02 06:49 | HHI.CCPN ---
Subjective Remarks/Hospital Course 57 y/o man with chronic nonischemic cardiomyopathy, EF 20% presents two days ago to ED with a-fib and RVR. Morbid obesity and chronic obesity hypoventilation syndrome. Developed bradycardia requiring atropine this morning , rushed to [facility] where on arrival he is obtunded with agonal respirations. Rate acceptable, depth shallow. Required bag mask ventilation, dopamine and levophed. Unable to intubate despite optic endoscope; proceeded to tracheostomy. Sats maintained > 80% throughout. Initial pH 7.14. 11/17: S/P resuscitation for probable hypercapneic respiratory arrest with bradycardia, hypotension. Has required mechanical ventilation. Perfusion improved after inotropic support instituted, now tapering. Elevated LFTs may reflect period of inadequate perfusion. 11/18: Doing well on T-piece. Resolving shock liver, DENNYS. Should go home with trach. 11/19: Fatigues on CPAP/T-piece. Will need LTAC. 11/20: stable. still volume overloaded by clinical exam. will need LTAC placement. SUBJECTIVE: 11/21: Tmax 1.3. Currently 99.9. Remains on PRvC ventilation. NG tube is been resumed. Remains on furosemide 40 mg IV 3 times daily. Heart rate slightly tachycardic 11/22: Pulse intermittently 150. Consistently 120s. Will add PO cardizem and attempt to get better rate control - permanent a-fib. 11/23: Heart rate control improved on po cardizem. Slightly over-diuresed, will back off on lasix. 11/24: Persistent intractable coughing. Low grade fever. Deteriorating renal function. CXR with pulmonary venous congestion but no consolidation or infiltrate. 11/25: Unable to wean ventilator. Hold lasix today, review pending renal function. 11/26: No events over the night. Patient doing well, sat in chair, now back in bed. Good spirits, follows commands. Afebrile. I/O 2444/675. 11/27: No events throughout the night. This AM, patient is resting comfortable. Afebrile, I/O 2537/1350. 11/28: Patient did well through the night. This AM, awake, doing great on PS 5/ 5. Tmax 99.3, I/O 1335/950. 11/29: No events over the night. Patient awake, on CPAP. Tolerated T piece for 8 hours yesterday. Lower urine output over the last few hours. 11/30: No events. Did well on T piece yesterday. Afebrile, I/O . Awake. 12/01: Patient resting comfortable, easily arousable. Afebrile. 12/02: Renal function improving, tolerating diuresis. Heart rate control acceptable. Objective Vital Signs Date Time Temp Pulse Resp B/P (MAP) Pulse Ox O2 Delivery O2 Flow Rate FiO2 12/02/17 06:00 90 12/02/17 04:00 30 12/02/17 04:00 98.4 21 139/87 (104) 100 11/30/17 10:45 T-piece 8.00 Intake and Output 12/02/17 12/02/17 12/03/17 08:00 16:00 00:00 Intake Total 989 ml Output Total 850 ml Balance 139 ml Result Diagram: 12/02/17 0436 12/02/17 0436 Imaging Last Impressions Chest X-Ray 11/19/17 0000 Signed Impressions: Service Date/Time: Sunday, November 19, 2017 11:33 - CONCLUSION: Improved basilar opacities essentially cleared on the right and minimal residual on the left. Efrain Dimas MD Abdomen X-Ray 11/16/17 0000 Signed Impressions: Service Date/Time: Thursday, November 16, 2017 09:53 - CONCLUSION: Nasogastric tube tip in the region of the distal stomach. Jose Bruno MD Objective Remarks General - middle age gentleman, awake, in no distress HEENT - pupils equal, reactive, conjunctiva anicteric, neck soft, no JVD, + trach (XLT) - site clean, dery CV - irregular heart sounds, no murmurs Chest - clear breath sounds b/l, no wheezes, good air entry Abdomen - soft, obese, non-tender, BS hyperactive Extremities - warm, 1+ edema, + peripheral pulses Neuro - awake, alert, follows commands, moves all extremities A/P Problem List: (1) Acute on chronic respiratory failure with hypoxemia ICD Code: J96.21 - Acute and chronic respiratory failure with hypoxia (2) Symptomatic bradycardia ICD Code: R00.1 - Bradycardia, unspecified Status: Acute (3) Morbid obesity with BMI of 50.0-59.9, adult ICD Code: E66.01 - Morbid (severe) obesity due to excess calories; Z68.43 - Body mass index (BMI) 50-59.9 , adult Status: Acute (4) Atrial fibrillation ICD Code: I48.91 - Unspecified atrial fibrillation Status: Chronic (5) CKD (chronic kidney disease), stage III ICD Code: N18.3 - Chronic kidney disease, stage 3 (moderate) Status: Chronic (6) Chronic systolic CHF (congestive heart failure) ICD Code: I50.22 - Chronic systolic (congestive) heart failure Status: Chronic Assessment and Plan 1. Acute hypercapneic and hypoxic respiratory failure s/p emergent trach - improved, tolerating T piece during daytime and PS at night 2. Afib/flutter with RVR - rate controlled 3. Mixed gram negative bronchitis vs pneumonia - afebrile, minimal leukocytosis 4. DENNYS on CKD - slowly improving, good urine output, followed by nephrology 5. Hypokalemia - today is worse 6. NICM with rEF 20% 7. Shock liver, likely secondary to hypoperfusion - improving 8. H/o seizure d/o 9. H/o cardiac arrest 10. DM 11. Possible CHINO/OHS 12. Enterococcus in urine - likely colonizer 13. Hypernatremia - better, started on free water 1. T piece during daytime as tolerated and place on PS at night 2. Ventilator bundle and bronchodilators 3. Ceftriaxone, stopped, completed a 7d course, reculture for fevers 4. Additional potassium repletion today 5. OOB to chair 6. On metropolol and cardizem. 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 On apixaban 7. Hold amiodarone. 8. Will need FABRICE/ARB and spironolactone once renal function improves 9. Continue statin 10. On topiramate for underlying seizure disorder 11. Glycemic control with insulin sliding scale 12. TF with nepro and free water 13. GI prophylaxis 14. DVT prophylaxis addressed 15. Remove central line - done Overall impression: Would benefit from LTAC placement. Probably needs permanent trach. Shoail Ma MD Dec 02, 2017 06:49
[2017-12-02] MEDS: POTASSIUM CHLOR 40 MEQ PREMIX 100 ML IV SCH ×2 (07:00→08:59)
[2017-12-02] MEDS: CHLORHEXIDINE 0.12% (ORAL KIT) 15 ML CUP MT SCH ×2 (08:00→20:00)
[2017-12-02] MEDS: SODIUM CHLORIDE 0.9% FLUSH 10 ML FLUSH IV FLUSH SCH ×2 (08:56→21:00)
[2017-12-02] MEDS: POLYETHYLENE GLYCOL 17 GM PKG NG SCH ×2 (08:57→19:29)
[2017-12-02] MEDS: POTASSIUM CHLORIDE 20 MEQ PWD PACKET NG SCH ×2 (08:57→21:00)
[2017-12-02] MEDS: FAMOTIDINE 20 MG TAB NG SCH ×2 (08:58→21:19)
[2017-12-02] MEDS: APIXABAN 5 MG TABLET PO SCH ×2 (08:58→21:18)
[2017-12-02] MEDS: TOPIRAMATE 200 MG TAB PO SCH (08:58)
[2017-12-02] MEDS: DOCUSATE SODIUM 50 MG/SENNA 8.6 MG TAB PO SCH ×2 (08:59→19:30)
[2017-12-02] MEDS: METOPROLOL TARTRATE 100 MG TAB PO SCH ×2 (08:59→21:18)
[2017-12-02] MEDS: MORPHINE SULFATE 2 MG/ML INJ IV PUSH PRN ×2 (09:00→15:45)
--- NOTE | 2017-12-02 09:39 | HHI.NPPN ---
Subjective General Problems: Anemia, Edema, Heart Disease, Obesity Renal Failure: Chronic, Acute, Stage IV History of Present Illness Patient is a 57-year-old -[place] male with past medical history of seizure disorder, chronic systolic congestive heart failure, hx of respiratory failure requiring tracheostomy placement, hx of cardiogenic shock with PEA arrest, chronic kidney disease, hypertension, diabetes mellitus, atrial fibrillation who was admitted with increased swelling and afib RVR. I was called to see the patient for elevated BUN and creatinine. The patient has a known history of chronic kidney disease and it seems like his baseline creatinine has been in the range of 1.4 to 2.0 and it has increased now at 2.83. Chest Xray noted with pulmonary edema. On ventilator via trach at 40 % FiO2 and weaning trial this morning. Was receiving lasix 40 mg daily which is on hold for elevating renal indices and patient is receiving IVF NS at 100 ml per hour for 1 bag. The patient is not able to give any history because he has a tracheostomy but he is responding to verbal commands and he seems to be fully awake in good spirits. Additional Remarks Renal function is stable. Non oliguric. Hypernatremic and hypokalemic. On ventilator (Petra Banks) Additional Remarks Patient seen in AM, on the vent. via Trach, awake. (Rajan Hoyt MD) Objective Data Data Vital Signs Date Time Temp Pulse Resp B/P (MAP) Pulse Ox O2 Delivery O2 Flow Rate FiO2 12/02/17 09:17 93 30 12/02/17 09:05 22 12/02/17 08:00 97.9 80 22 107/57 (74) 98 12/02/17 08:00 73 12/02/17 08:00 30 12/02/17 06:00 90 12/02/17 04:00 30 12/02/17 04:00 98.4 76 21 139/87 (104) 100 12/02/17 04:00 76 12/02/17 03:36 96 30 12/02/17 02:00 73 12/02/17 00:49 93 30 12/02/17 00:00 73 12/02/17 00:00 30 12/02/17 00:00 99.1 73 26 154/87 (109) 100 12/01/17 22:00 92 12/01/17 21:26 99 30 12/01/17 20:00 92 12/01/17 20:00 98.8 89 25 138/94 (109) 100 12/01/17 20:00 30 12/01/17 18:00 87 12/01/17 16:00 88 12/01/17 16:00 99.8 88 20 131/91 (104) 96 12/01/17 16:00 30 12/01/17 14:00 80 12/01/17 12:12 100 30 12/01/17 12:00 80 12/01/17 12:00 30 12/01/17 12:00 99.5 80 22 110/83 (92) 99 12/01/17 10:15 100 40 12/01/17 10:00 81 (Petra Banks) -: 12/02/17 0436 12/02/17 0436 Physical Exam General Appearance: Obese (Petra Banks) Eyes Eye Exam: Pupils Equal (Petra Banks) Neck Neck Remarks trach (Petra Banks) Pulmonary Resp Exam: Decreased Bases (Petra Banks) Cardiology CV Exam: Irregular (Petra Banks) Gastrointestinal/Abdomen GI Exam: Non-Tender, Bowel Sounds Present (Petra Banks) Genitourinary Exam: Flank Non-Tender (Petra Banks) Integumentary Skin Exam: Clear, Warm (Petra Banks) Extremeties Extremities Exam: Trace Edema (Petra Banks) Neurologic Neuro Exam: Alert, Awake (Petra Banks) Psychiatric Psych Exam: Appropriate Responses Psych Remarks Nods to commands (Petra Banks) Assessment/Plan Problem List: (1) CKD (chronic kidney disease), stage III ICD Codes: N18.3 - Chronic kidney disease, stage 3 (moderate) Status: Chronic Plan: Likely pre-renal, may have progressed to ATN. Creatinine at 1.88 and GFR 45 Avoid nephrotoxins. Stable renal function. (2) Respiratory failure ICD Codes: J96.90 - Respiratory failure, unspecified, unspecified whether with hypoxia or hypercapnia Plan: Resting now On F1O2 at 30% via trach (3) Non-ischemic cardiomyopathy ICD Codes: I42.8 - Other cardiomyopathies Status: Chronic Plan: Lasix on hold On metoprolol (4) Paroxysmal atrial fibrillation ICD Codes: I48.0 - Paroxysmal atrial fibrillation Status: Acute Plan: rate controlled metoprolol and Cardizem On Eliquis for anticoagulation (5) Hypokalemia ICD Codes: E87.6 - Hypokalemia Plan: K 2.9 Daily replacement increased. Receiving IV also (6) Seizure ICD Codes: R56.9 - Unspecified convulsions Plan: continue Topamax (7) Hypernatremia ICD Codes: E87.0 - Hyperosmolality and hypernatremia Plan: changed IVF to 1/4NS (Petra Banks) Problem List: (1) CKD (chronic kidney disease), stage III ICD Codes: N18.3 - Chronic kidney disease, stage 3 (moderate) Status: Chronic Plan: Likely pre-renal, may have progressed to ATN. Creatinine at 1.88 and GFR 45 Avoid nephrotoxins. Creatinine improving, k is low, replaced. Na. is still 152, on Hypotonic IVF. (2) Respiratory failure ICD Codes: J96.90 - Respiratory failure, unspecified, unspecified whether with hypoxia or hypercapnia Plan: Resting now On F1O2 at 30% via trach (3) Non-ischemic cardiomyopathy ICD Codes: I42.8 - Other cardiomyopathies Status: Chronic Plan: Lasix on hold On metoprolol (4) Paroxysmal atrial fibrillation ICD Codes: I48.0 - Paroxysmal atrial fibrillation Status: Acute Plan: rate controlled metoprolol and Cardizem On Eliquis for anticoagulation (5) Hypokalemia ICD Codes: E87.6 - Hypokalemia Plan: K 2.9 Daily replacement increased. Receiving IV also (6) Seizure ICD Codes: R56.9 - Unspecified convulsions Plan: continue Topamax (7) Hypernatremia ICD Codes: E87.0 - Hyperosmolality and hypernatremia Plan: changed IVF to 1/4NS (Rajan Hoyt MD) Petra Banks Dec 02, 2017 09:39 Rajan Hoyt MD Dec 02, 2017 16:11
[2017-12-02] MEDS: SODIUM CHLORIDE 23.4% INJ 38.5 MEQ in WATER STERILE FOR INJ 1,000 ML IV SCH (10:00)
[2017-12-02] MEDS: oxyCODONE HCL ORAL CONC 5 MG/0.25 ML SYRINGE NG PRN ×2 (10:00→16:48)
[2017-12-02] MEDS: POTASSIUM CHLOR 20 MEQ PREMIX 100 ML IV SCH ×3 (12:00→21:18)
[2017-12-02] MEDS: RESP: ALBUTEROL 2.5 MG/3 ML NEB (PRN) NEB (21:17)
[2017-12-02] MEDS: ATORVASTATIN 80 MG TAB PO SCH (21:18)
[2017-12-03] VITALS (18 sets, daily range): BP systolic 108–150; BP diastolic 59–87; PULSE 69–106; RESP 15–29; TEMP 98.4–99.1; O2SAT 95–100
[2017-12-03] MEDS: DILTIAZEM HCL 60 MG TAB PO SCH ×4 (00:03→18:20)
[2017-12-03] MEDS: RESP: ALBUTEROL 2.5 MG/3 ML NEB (PRN) NEB ×2 (03:35→20:04)
[2017-12-03] MEDS: POTASSIUM CHLOR 20 MEQ PREMIX 100 ML IV SCH (03:36)
[2017-12-03] MEDS: MORPHINE SULFATE 2 MG/ML INJ IV PUSH PRN ×2 (03:37→21:37)
[2017-12-03 04:57] LABS: BICARBONATE 17.1 MEQ/L (21.0-32.0); CALCIUM 8.5 MG/DL (8.5-10.1); CREATININE 1.84 MG/DL (0.60-1.30)
[2017-12-03] MEDS: ARTIFICIAL TEARS OPTH SOLN 15 ML BTL EACH EYE SCH ×3 (05:52→21:11)
[2017-12-03] MEDS: INSULIN NovoLIN REGULAR SUPPLEMENTAL SCALE SQ SCH ×4 (05:52→18:00)
[2017-12-03] MEDS: CHLORHEXIDINE 0.12% (ORAL KIT) 15 ML CUP MT SCH ×2 (08:17→20:00)
[2017-12-03] MEDS: DOCUSATE SODIUM 50 MG/SENNA 8.6 MG TAB PO SCH ×2 (09:00→19:18)
[2017-12-03] MEDS: TOPIRAMATE 200 MG TAB PO SCH (09:14)
[2017-12-03] MEDS: POLYETHYLENE GLYCOL 17 GM PKG NG SCH ×2 (09:14→19:18)
[2017-12-03] MEDS: APIXABAN 5 MG TABLET PO SCH ×2 (09:14→21:11)
[2017-12-03] MEDS: SODIUM CHLORIDE 0.9% FLUSH 10 ML FLUSH IV FLUSH SCH ×2 (09:15→21:00)
[2017-12-03] MEDS: POTASSIUM CHLORIDE 20 MEQ PWD PACKET NG SCH ×2 (09:15→21:00)
[2017-12-03] MEDS: METOPROLOL TARTRATE 100 MG TAB PO SCH ×2 (09:15→21:11)
[2017-12-03] MEDS: FAMOTIDINE 20 MG TAB NG SCH ×2 (09:20→21:11)
[2017-12-03] MEDS: SODIUM CHLORIDE 23.4% INJ 38.5 MEQ in WATER STERILE FOR INJ 1,000 ML IV SCH (10:33)
--- NOTE | 2017-12-03 11:34 | HHI.CCPN ---
Subjective Remarks/Hospital Course 57 y/o man with chronic nonischemic cardiomyopathy, EF 20% presents two days ago to ED with a-fib and RVR. Morbid obesity and chronic obesity hypoventilation syndrome. Developed bradycardia requiring atropine this morning , rushed to [facility] where on arrival he is obtunded with agonal respirations. Rate acceptable, depth shallow. Required bag mask ventilation, dopamine and levophed. Unable to intubate despite optic endoscope; proceeded to tracheostomy. Sats maintained > 80% throughout. Initial pH 7.14. 11/17: S/P resuscitation for probable hypercapneic respiratory arrest with bradycardia, hypotension. Has required mechanical ventilation. Perfusion improved after inotropic support instituted, now tapering. Elevated LFTs may reflect period of inadequate perfusion. 11/18: Doing well on T-piece. Resolving shock liver, DENNYS. Should go home with trach. 11/19: Fatigues on CPAP/T-piece. Will need LTAC. 11/20: stable. still volume overloaded by clinical exam. will need LTAC placement. SUBJECTIVE: 11/21: Tmax 1.3. Currently 99.9. Remains on PRvC ventilation. NG tube is been resumed. Remains on furosemide 40 mg IV 3 times daily. Heart rate slightly tachycardic 11/22: Pulse intermittently 150. Consistently 120s. Will add PO cardizem and attempt to get better rate control - permanent a-fib. 11/23: Heart rate control improved on po cardizem. Slightly over-diuresed, will back off on lasix. 11/24: Persistent intractable coughing. Low grade fever. Deteriorating renal function. CXR with pulmonary venous congestion but no consolidation or infiltrate. 11/25: Unable to wean ventilator. Hold lasix today, review pending renal function. 11/26: No events over the night. Patient doing well, sat in chair, now back in bed. Good spirits, follows commands. Afebrile. I/O 2444/675. 11/27: No events throughout the night. This AM, patient is resting comfortable. Afebrile, I/O 2537/1350. 11/28: Patient did well through the night. This AM, awake, doing great on PS 5/ 5. Tmax 99.3, I/O 1335/950. 11/29: No events over the night. Patient awake, on CPAP. Tolerated T piece for 8 hours yesterday. Lower urine output over the last few hours. 11/30: No events. Did well on T piece yesterday. Afebrile, I/O 2157/1974. Awake. 12/01: Patient resting comfortable, easily arousable. Afebrile. 12/02: Renal function improving, tolerating diuresis. Heart rate control acceptable. 12/03: Lying in bed. No acute distress follows commands. Renal function stable. UO 1.5 L in 24 hours Objective Vital Signs Date Time Temp Pulse Resp B/P (MAP) Pulse Ox O2 Delivery O2 Flow Rate FiO2 12/03/17 10:00 91 12/03/17 08:00 98.8 25 128/87 (101) 100 12/03/17 08:00 35 11/30/17 10:45 T-piece 8.00 Intake and Output 12/03/17 12/03/17 12/04/17 08:00 16:00 00:00 Intake Total 921 ml 626 ml Output Total 1600 ml Balance -679 ml 626 ml Result Diagram: 12/02/17 0436 12/03/17 0343 Imaging Last Impressions Chest X-Ray 11/19/17 0000 Signed Impressions: Service Date/Time: Sunday, November 19, 2017 11:33 - CONCLUSION: Improved basilar opacities essentially cleared on the right and minimal residual on the left. Efrain Dimas MD Abdomen X-Ray 11/16/17 0000 Signed Impressions: Service Date/Time: Thursday, November 16, 2017 09:53 - CONCLUSION: Nasogastric tube tip in the region of the distal stomach. Jose Bruno MD Objective Remarks General - middle age gentleman, awake, in no distress, on vent HEENT - pupils equal, reactive, neck soft, no JVD, + trach (XLT) - site clean, dery CV - irregular heart sounds, no murmurs Chest - clear breath sounds b/l, no wheezes, good air entry Abdomen - soft, obese, non-tender, BS hyperactive Extremities - warm, 1+ edema, + peripheral pulses Neuro - awake, alert, follows commands, moves all extremities A/P Problem List: (1) Acute on chronic respiratory failure with hypoxemia ICD Code: J96.21 - Acute and chronic respiratory failure with hypoxia (2) Symptomatic bradycardia ICD Code: R00.1 - Bradycardia, unspecified Status: Acute (3) Morbid obesity with BMI of 50.0-59.9, adult ICD Code: E66.01 - Morbid (severe) obesity due to excess calories; Z68.43 - Body mass index (BMI) 50-59.9 , adult Status: Acute (4) Atrial fibrillation ICD Code: I48.91 - Unspecified atrial fibrillation Status: Chronic (5) CKD (chronic kidney disease), stage III ICD Code: N18.3 - Chronic kidney disease, stage 3 (moderate) Status: Chronic (6) Chronic systolic CHF (congestive heart failure) ICD Code: I50.22 - Chronic systolic (congestive) heart failure Status: Chronic Assessment and Plan 1. Acute hypercapneic and hypoxic respiratory failure s/p emergent trach - improved, tolerating T piece during daytime and PS at night 2. Afib/flutter with RVR - rate controlled 3. Mixed gram negative bronchitis vs pneumonia - afebrile, minimal leukocytosis 4. DENNYS on CKD - slowly improving, good urine output, followed by nephrology 5. Hypokalemia 6. NICM with EF 20% 7. Shock liver, likely secondary to hypoperfusion - improving 8. H/o seizure d/o 9. H/o cardiac arrest 10. DM 11. Possible CHINO/OHS 12. Enterococcus in urine 13. Hypernatremia - better, started on free water 1. T piece during daytime as tolerated and place on PS at night 2. Ventilator bundle and bronchodilators 3. Ceftriaxone, stopped, completed a 7d course, reculture for fevers, repeat urine culure 4. Electrolyte replacement per protocol 5. OOB to chair, as tolerated 6. On metropolol and cardizem. shelter may need to stop cardizem due to compounding negative inotropy effect. On apixaban 7. Hold amiodarone. 8. Will need FABRICE/ARB and spironolactone once renal function improves 9. Continue statin 10. On topiramate for underlying seizure disorder 11. Glycemic control with insulin sliding scale 12. TF with nepro and free water 13. GI prophylaxis 14. DVT prophylaxis addressed Overall impression: Would benefit from LTAC placement. Probably needs permanent trach. Level 2 Niesha Fatima MD Dec 03, 2017 11:34
--- NOTE | 2017-12-03 18:08 | HHI.NPPN ---
Subjective General Problems: Anemia, Edema, Heart Disease, Obesity Renal Failure: Chronic, Acute, Stage IV History of Present Illness Patient is a 57-year-old -[place] male with past medical history of seizure disorder, chronic systolic congestive heart failure, hx of respiratory failure requiring tracheostomy placement, hx of cardiogenic shock with PEA arrest, chronic kidney disease, hypertension, diabetes mellitus, atrial fibrillation who was admitted with increased swelling and afib RVR. I was called to see the patient for elevated BUN and creatinine. The patient has a known history of chronic kidney disease and it seems like his baseline creatinine has been in the range of 1.4 to 2.0 and it has increased now at 2.83. Chest Xray noted with pulmonary edema. On ventilator via trach at 40 % FiO2 and weaning trial this morning. Was receiving lasix 40 mg daily which is on hold for elevating renal indices and patient is receiving IVF NS at 100 ml per hour for 1 bag. The patient is not able to give any history because he has a tracheostomy but he is responding to verbal commands and he seems to be fully awake in good spirits. Additional Remarks Patient is alert, on the vent. via Trach, not in distress. Objective Data Data 12/03/17 12/04/17 19:00 07:00 Intake Total 726 ml Balance 726 ml IV Total 726 ml Vital Signs Date Time Temp Pulse Resp B/P (MAP) Pulse Ox O2 Delivery O2 Flow Rate FiO2 12/03/17 16:58 98 35 12/03/17 16:00 91 12/03/17 16:00 98.4 69 28 150/62 (91) 100 12/03/17 16:00 35 12/03/17 14:00 69 12/03/17 13:00 100 35 12/03/17 12:00 35 12/03/17 12:00 98.4 81 15 131/60 (83) 100 12/03/17 12:00 81 12/03/17 10:00 91 12/03/17 08:00 35 12/03/17 08:00 98.8 90 25 128/87 (101) 100 12/03/17 08:00 106 12/03/17 08:00 35 12/03/17 07:53 98 35 12/03/17 06:00 96 12/03/17 04:07 99 30 12/03/17 04:00 99.1 94 28 129/83 (98) 100 12/03/17 04:00 35 12/03/17 04:00 98 12/03/17 02:00 87 12/03/17 00:00 35 12/03/17 00:00 98.4 96 29 108/59 (75) 95 12/03/17 00:00 96 12/02/17 23:38 99 35 12/02/17 22:00 102 12/02/17 21:09 92 35 12/02/17 20:00 35 12/02/17 20:00 108 12/02/17 20:00 98.4 108 24 110/79 (89) 99 -: 12/02/17 0436 12/03/17 0343 Physical Exam General Appearance: Obese Appearance Remarks With Tracheostomy. Eyes Eye Exam: Pupils Equal Pulmonary Resp Exam: Decreased Bases Cardiology CV Exam: Irregular Gastrointestinal/Abdomen GI Exam: Non-Tender, Bowel Sounds Present Genitourinary Exam: Flank Non-Tender Integumentary Skin Exam: Clear, Warm Extremeties Extremities Exam: Trace Edema Neurologic Neuro Exam: Alert, Awake Psychiatric Psych Exam: Appropriate Responses Assessment/Plan Problem List: (1) CKD (chronic kidney disease), stage III ICD Codes: N18.3 - Chronic kidney disease, stage 3 (moderate) Status: Chronic Plan: Likely pre-renal, may have progressed to ATN. Creatinine is stable at 1.88 and GFR 45 Avoid nephrotoxins. Creatinine improving, k is better after replacement. Na. is improving, now 149. (2) Respiratory failure ICD Codes: J96.90 - Respiratory failure, unspecified, unspecified whether with hypoxia or hypercapnia Plan: Resting now On F1O2 at 30% via trach (3) Non-ischemic cardiomyopathy ICD Codes: I42.8 - Other cardiomyopathies Status: Chronic Plan: Lasix on hold On metoprolol (4) Paroxysmal atrial fibrillation ICD Codes: I48.0 - Paroxysmal atrial fibrillation Status: Acute Plan: rate controlled metoprolol and Cardizem On Eliquis for anticoagulation (5) Hypokalemia ICD Codes: E87.6 - Hypokalemia Plan: K 2.9 Daily replacement increased. Receiving IV also (6) Seizure ICD Codes: R56.9 - Unspecified convulsions Plan: continue Topamax (7) Hypernatremia ICD Codes: E87.0 - Hyperosmolality and hypernatremia Plan: changed IVF to 4NS Rajan Hoyt MD Dec 03, 2017 18:08
[2017-12-03] MEDS: CHLORHEXIDINE GLUCONATE 2 % 1 PACK (2 CLOTHS) TOP SCH (19:18)
[2017-12-03] MEDS: ATORVASTATIN 80 MG TAB PO SCH (21:11)
[2017-12-04] VITALS (18 sets, daily range): BP systolic 108–151; BP diastolic 63–96; PULSE 70–112; RESP 19–27; TEMP 98.8–100.6; O2SAT 98–100
[2017-12-04] MEDS: DILTIAZEM HCL 60 MG TAB PO SCH ×5 (00:33→21:56)
[2017-12-04] MEDS: ARTIFICIAL TEARS OPTH SOLN 15 ML BTL EACH EYE SCH ×3 (05:51→22:26)
[2017-12-04] MEDS: INSULIN NovoLIN REGULAR SUPPLEMENTAL SCALE SQ SCH ×4 (05:52→18:00)
[2017-12-04] MEDS: POLYETHYLENE GLYCOL 17 GM PKG NG SCH ×2 (09:00→21:00)
[2017-12-04] MEDS: SODIUM CHLORIDE 23.4% INJ 38.5 MEQ in WATER STERILE FOR INJ 1,000 ML IV SCH (10:24)
[2017-12-04] MEDS: DOCUSATE SODIUM 50 MG/SENNA 8.6 MG TAB PO SCH ×2 (10:24→21:00)
[2017-12-04] MEDS: FAMOTIDINE 20 MG TAB NG SCH ×2 (10:26→21:00)
[2017-12-04] MEDS: APIXABAN 5 MG TABLET PO SCH (10:26)
[2017-12-04] MEDS: METOPROLOL TARTRATE 100 MG TAB PO SCH ×2 (10:26→21:00)
[2017-12-04] MEDS: POTASSIUM CHLORIDE 20 MEQ PWD PACKET NG SCH ×2 (10:28→21:00)
[2017-12-04] MEDS: CHLORHEXIDINE 0.12% (ORAL KIT) 15 ML CUP MT SCH ×2 (10:28→20:00)
[2017-12-04] MEDS: SODIUM CHLORIDE 0.9% FLUSH 10 ML FLUSH IV FLUSH SCH ×2 (10:28→21:00)
[2017-12-04] MEDS: TOPIRAMATE 200 MG TAB PO SCH (10:50)
--- NOTE | 2017-12-04 11:08 | HHI.CCPN ---
Subjective Remarks/Hospital Course 57 y/o man with chronic nonischemic cardiomyopathy, EF 20% presents two days ago to ED with a-fib and RVR. Morbid obesity and chronic obesity hypoventilation syndrome. Developed bradycardia requiring atropine this morning , rushed to [facility] where on arrival he is obtunded with agonal respirations. Rate acceptable, depth shallow. Required bag mask ventilation, dopamine and levophed. Unable to intubate despite optic endoscope; proceeded to tracheostomy. Sats maintained > 80% throughout. Initial pH 7.14. 11/17: S/P resuscitation for probable hypercapneic respiratory arrest with bradycardia, hypotension. Has required mechanical ventilation. Perfusion improved after inotropic support instituted, now tapering. Elevated LFTs may reflect period of inadequate perfusion. 11/18: Doing well on T-piece. Resolving shock liver, DENNYS. Should go home with trach. 11/19: Fatigues on CPAP/T-piece. Will need LTAC. 11/20: stable. still volume overloaded by clinical exam. will need LTAC placement. SUBJECTIVE: 11/21: Tmax 1.3. Currently 99.9. Remains on PRvC ventilation. NG tube is been resumed. Remains on furosemide 40 mg IV 3 times daily. Heart rate slightly tachycardic 11/22: Pulse intermittently 150. Consistently 120s. Will add PO cardizem and attempt to get better rate control - permanent a-fib. 11/23: Heart rate control improved on po cardizem. Slightly over-diuresed, will back off on lasix. 11/24: Persistent intractable coughing. Low grade fever. Deteriorating renal function. CXR with pulmonary venous congestion but no consolidation or infiltrate. 11/25: Unable to wean ventilator. Hold lasix today, review pending renal function. 11/26: No events over the night. Patient doing well, sat in chair, now back in bed. Good spirits, follows commands. Afebrile. I/O 2444/675. 11/27: No events throughout the night. This AM, patient is resting comfortable. Afebrile, I/O 2537/1350. 11/28: Patient did well through the night. This AM, awake, doing great on PS 5/ 5. Tmax 99.3, I/O 1335/950. 11/29: No events over the night. Patient awake, on CPAP. Tolerated T piece for 8 hours yesterday. Lower urine output over the last few hours. 11/30: No events. Did well on T piece yesterday. Afebrile, I/O . Awake. 12/01: Patient resting comfortable, easily arousable. Afebrile. 12/02: Renal function improving, tolerating diuresis. Heart rate control acceptable. 12/03: Lying in bed. No acute distress follows commands. Renal function stable. UO 1.5 L in 24 hours 12/04: Awake alert, tolerating CPAP. Pulled his NG tube yesterday night, now replaced. Will consult GI for PEG placement. Objective Vital Signs Date Time Temp Pulse Resp B/P (MAP) Pulse Ox O2 Delivery O2 Flow Rate FiO2 12/04/17 08:49 99 30 12/04/17 06:00 102 12/04/17 04:00 100.6 27 151/90 (110) 11/30/17 10:45 T-piece 8.00 Intake and Output 12/04/17 12/04/17 12/05/17 08:00 16:00 00:00 Intake Total 868 ml Output Total 750 ml Balance 118 ml Result Diagram: 12/02/17 0436 12/03/17 0343 Imaging Last Impressions Chest X-Ray 11/19/17 0000 Signed Impressions: Service Date/Time: Sunday, November 19, 2017 11:33 - CONCLUSION: Improved basilar opacities essentially cleared on the right and minimal residual on the left. Efrain Dimas MD Abdomen X-Ray 11/16/17 0000 Signed Impressions: Service Date/Time: Thursday, November 16, 2017 09:53 - CONCLUSION: Nasogastric tube tip in the region of the distal stomach. Jose Bruno MD Objective Remarks General - middle age gentleman, awake, in no distress, on vent via trach HEENT - pupils equal, reactive, neck soft, no JVD, + trach (XLT) - site clean, dry. NGT in place CV - irregular heart sounds, no murmurs Chest - clear breath sounds b/l, no wheezes, good air entry Abdomen - soft, obese, non-tender, BS hyperactive Extremities - warm, 1+ edema, + peripheral pulses Neuro - awake, alert, follows commands, moves all extremities A/P Problem List: (1) Acute on chronic respiratory failure with hypoxemia ICD Code: J96.21 - Acute and chronic respiratory failure with hypoxia (2) Symptomatic bradycardia ICD Code: R00.1 - Bradycardia, unspecified Status: Acute (3) Morbid obesity with BMI of 50.0-59.9, adult ICD Code: E66.01 - Morbid (severe) obesity due to excess calories; Z68.43 - Body mass index (BMI) 50-59.9 , adult Status: Acute (4) Atrial fibrillation ICD Code: I48.91 - Unspecified atrial fibrillation Status: Chronic (5) CKD (chronic kidney disease), stage III ICD Code: N18.3 - Chronic kidney disease, stage 3 (moderate) Status: Chronic (6) Chronic systolic CHF (congestive heart failure) ICD Code: I50.22 - Chronic systolic (congestive) heart failure Status: Chronic Assessment and Plan ASSESSMENT 1. Acute hypercapneic and hypoxic respiratory failure s/p emergent trach - tolerating T piece during daytime and PS at night 2. Afib/flutter with RVR - rate controlled 3. Mixed gram negative bronchitis vs pneumonia - afebrile, minimal leukocytosis 4. DENNYS on CKD - slowly improving, good urine output, followed by nephrology 5. Hypokalemia 6. NICM with EF 20% 7. Shock liver, likely secondary to hypoperfusion - improving 8. H/o seizure d/o 9. H/o cardiac arrest 10. DM 11. Possible CHINO/OHS 12. Enterococcus in urine 13. Hypernatremia - better, started on free water PLAN 1. T piece during daytime as tolerated and PS at night 2. Ventilator bundle and bronchodilators 3. Ceftriaxone, stopped, completed a 7d course, reculture for fevers, repeat urine culture today, if positive for enterococcus, will treat 4. Electrolyte replacement per protocol 5. OOB to chair, as tolerated 6. On metoprolol and Cardizem. 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 On apixaban 7. Holding amiodarone. 8. Will need FABRICE/ARB and spironolactone once renal function improves 9. Continue statin 10. On topiramate for underlying seizure disorder 11. Glycemic control with insulin sliding scale 12. TF with nepro and free water 13. GI prophylaxis 14. DVT prophylaxis addressed 15. Consult GI for peg placement Overall impression: Would benefit from LTAC placement. Probably needs permanent trach. GI consulted for PEG placement Level 2 Niesha Fatima MD Dec 04, 2017 11:08
--- NOTE | 2017-12-04 13:39 | PD.CONS ---
HPI History of Present Illness This is a 57 year old M who presented to the emergency department with complaints of swelling of his legs and SOB, he was found to have a-fib RVR, at some point became bradycardic and obtunded and was transferred to the intensive care unit for closer monitoring. He now has a trach and is tolerating CPAP. GI has been consulted for PEG tube placement. Pt awakes to voice commands but does not respond, very lethargic, so history is obtained mostly from chart review. Pt is currently without NG tube, unsure why it has been discontinued. Previously NG tube with Vital high protein tube feeding at 65 mL/hr. Pt on Eliquis, last dose received this morning. (Bhavana Nunn) [facility] Past Medical History HTN Atrial fibrillation Chronic systolic congestive heart failure History of respiratory failure requiring intubation and tracheostomy tube placement. Removed on July 25, 2017. History of cardiogenic shock with PEA cardiac arrest in last admission June Chronic kidney disease stage III Seizure disorder Thrombocytopenia. Was followed up by media clerk and had bone marrow biopsy on July 24, 2017. Morbid obesity Obstructive sleep apnea. Was told he needs C Pap but has not been able to arrange it. Past Surgical History Coronary angiogram. Tracheostomy (Bhavana Nunn) Coded Allergies: castor oil (Unverified Allergy, Unknown, THROW UP, 11/14/17) Family History brother- dm dad- [place] Social History never smoked no etoh abuse no drugs live on his own (Bhavana Nunn) Review of Systems unable to obtain (Bhavana Nunn) GI Exam Vitals I&O Vital Signs Date Time Temp Pulse Resp B/P (MAP) Pulse Ox O2 Delivery O2 Flow Rate FiO2 12/04/17 11:19 100 30 12/04/17 08:49 99 30 12/04/17 08:49 30 12/04/17 06:00 102 12/04/17 04:06 100 30 12/04/17 04:00 94 12/04/17 04:00 35 12/04/17 04:00 100.6 94 27 151/90 (110) 100 12/04/17 02:00 86 12/04/17 00:00 90 12/04/17 00:00 98.8 90 25 128/87 (101) 100 12/04/17 00:00 35 12/03/17 23:43 100 30 12/03/17 22:00 88 12/03/17 20:01 100 30 12/03/17 20:00 35 12/03/17 20:00 74 12/03/17 20:00 99.1 74 28 122/86 (98) 99 12/03/17 18:00 98 12/03/17 16:58 98 35 12/03/17 16:00 91 12/03/17 16:00 98.4 69 28 150/62 (91) 100 12/03/17 16:00 35 12/03/17 14:00 69 I/O 12/03/17 12/03/17 12/03/17 12/04/17 12/04/17 12/04/17 07:00 15:00 23:00 07:00 15:00 23:00 Intake Total 821 ml 726 ml 1311 ml 868 ml Output Total 1600 ml 675 ml 750 ml Balance -779 ml 726 ml 636 ml 118 ml IV Total 726 ml 311 ml Tube Feeding 461 ml 600 ml 568 ml Other 360 ml 400 ml 300 ml Output Urine Total 1000 ml 475 ml 750 ml Stool Total 600 ml 200 ml 0 ml Imaging Last Impressions Chest X-Ray 11/27/17 0000 Signed Impressions: Service Date/Time: Monday, November 27, 2017 10:56 - CONCLUSION: Cardiomegaly with mild congestive failure, minimal improvement. Rell Valentin MD FACR Abdomen X-Ray 11/16/17 0000 Signed Impressions: Service Date/Time: Thursday, November 16, 2017 09:53 - CONCLUSION: Nasogastric tube tip in the region of the distal stomach. Jose Bruno MD Laboratory Date/Time Source Procedure Growth Status 11/22/17 07:13 Blood Peripheral Aerobic Blood Culture - Final NO GROWTH IN 5 DAYS Complete 11/22/17 07:13 Blood Peripheral Anaerobic Blood Culture - Final NO GROWTH IN 5 DAYS Complete 11/21/17 18:00 Sputum Endotracheal Gram Stain - Final Complete 11/21/17 18:00 Sputum Culture - Final Enterobacter Aerogenes Proteus Mirabilis Haemophilus Influenzae Complete 12/04/17 12:50 Urine Catheterized Urine Urine Culture Pending Received Physical Examination HEENT:Normocephalic; atraumatic CHEST: Trach to CPAP- coarse BS CARDIAC: Irregular, rate controlled ABDOMEN: Morbidly obese, soft, bowel sounds active, rectal tube with 300cc of light brown stool in collection bag EXTREMITIES: BLE SKIN: Normal; no rash; no jaundice. 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 Previous NG tube, unsure why it has been discontinued. Was receiving Vital high protein @ 65 mL/hr. Of note, pt is on Elquis, last dosage received this morning. Will need to be discontinued for PEG tube placement to be done. Plan: EGD with PEG tube placement on Saturday NPO after MN Obtain consent Hold Eliquis until after procedure NG tube may need to be replaced for supplemental nutrition until Saturday Supportive care Further recommendations to follow Pt has been seen and examined by myself and Dr. Alonzo and this note is written on his behalf (Bhavana Nunn) Plan Patient was seen and examined, agree with above note, plan for PEG tube on Saturday and able to hold Eliquis for 2 days (Steph Alonzo MD) Bhavana Nunn Dec 04, 2017 13:39 Steph Alonzo MD Dec 04, 2017 16:27
[2017-12-04 14:17] LABS: ALBUMIN 2.4 GM/DL (3.4-5.0); ALKALINE PHOSPHATASE 185 U/L (45-117); ALT (GPT) 190 U/L (12-78); AST (GOT) 96 U/L (15-37); BICARBONATE 14.9 MEQ/L (21.0-32.0); BLOOD UREA NITROGEN 38 MG/DL (7-18); CALCIUM 8.9 MG/DL (8.5-10.1); CHLORIDE 120 MEQ/L (98-107); CREATININE 1.42 MG/DL (0.60-1.30); GLOMERULAR FILTRATION RATE 62 ML/MIN (>89); GLUCOSE,RANDOM 116 MG/DL (74-106); SODIUM (NA) 144 MEQ/L (136-145); TOTAL BILIRUBIN ADULT 0.6 MG/DL (0.2-1.0); TOTAL PROTEIN 6.7 GM/DL (6.4-8.2)
--- NOTE | 2017-12-04 18:36 | HHI.NPPN ---
Subjective General Problems: Anemia, Edema, Heart Disease, Obesity Renal Failure: Chronic, Acute, Stage IV History of Present Illness Patient is a 57-year-old -[place] male with past medical history of seizure disorder, chronic systolic congestive heart failure, hx of respiratory failure requiring tracheostomy placement, hx of cardiogenic shock with PEA arrest, chronic kidney disease, hypertension, diabetes mellitus, atrial fibrillation who was admitted with increased swelling and afib RVR. I was called to see the patient for elevated BUN and creatinine. The patient has a known history of chronic kidney disease and it seems like his baseline creatinine has been in the range of 1.4 to 2.0 and it has increased now at 2.83. Chest Xray noted with pulmonary edema. On ventilator via trach at 40 % FiO2 and weaning trial this morning. Was receiving lasix 40 mg daily which is on hold for elevating renal indices and patient is receiving IVF NS at 100 ml per hour for 1 bag. The patient is not able to give any history because he has a tracheostomy but he is responding to verbal commands and he seems to be fully awake in good spirits. Additional Remarks Patient is alert, on the vent. via Trach, not in distress. Objective Data Data 12/04/17 12/05/17 19:00 07:00 Intake Total 200 ml Output Total 200 ml Balance 0 ml Other 200 ml Stool Total 200 ml Vital Signs Date Time Temp Pulse Resp B/P (MAP) Pulse Ox O2 Delivery O2 Flow Rate FiO2 12/04/17 16:13 98 30 12/04/17 16:00 99.2 107 27 131/85 (100) 98 12/04/17 16:00 107 12/04/17 16:00 35 12/04/17 15:13 100 35 12/04/17 15:10 35 12/04/17 14:00 98 12/04/17 12:00 70 12/04/17 12:00 98.8 70 19 128/72 (90) 98 12/04/17 12:00 35 12/04/17 11:19 100 30 12/04/17 10:00 108 12/04/17 09:30 35 12/04/17 08:49 99 30 12/04/17 08:49 30 12/04/17 08:00 105 12/04/17 08:00 100.2 105 23 122/96 (105) 100 12/04/17 08:00 35 12/04/17 06:00 102 12/04/17 04:06 100 30 12/04/17 04:00 94 12/04/17 04:00 35 12/04/17 04:00 100.6 94 27 151/90 (110) 100 12/04/17 02:00 86 12/04/17 00:00 90 12/04/17 00:00 98.8 90 25 128/87 (101) 100 12/04/17 00:00 35 12/03/17 23:43 100 30 12/03/17 22:00 88 12/03/17 20:01 100 30 12/03/17 20:00 35 12/03/17 20:00 74 12/03/17 20:00 99.1 74 28 122/86 (98) 99 -: 12/02/17 0436 12/04/17 1318 Microbiology 12/04/17 Urine Culture, Received Pending Physical Exam General Appearance: Obese Appearance Remarks With Tracheostomy. Eyes Eye Exam: Pupils Equal Pulmonary Resp Exam: Decreased Bases Cardiology CV Exam: Irregular Gastrointestinal/Abdomen GI Exam: Non-Tender, Bowel Sounds Present Genitourinary Exam: Flank Non-Tender Integumentary Skin Exam: Clear, Warm Extremeties Extremities Exam: Trace Edema Neurologic Neuro Exam: Alert, Awake Psychiatric Psych Exam: Appropriate Responses Assessment/Plan Problem List: (1) CKD (chronic kidney disease), stage III ICD Codes: N18.3 - Chronic kidney disease, stage 3 (moderate) Status: Chronic Plan: Likely pre-renal, may have progressed to ATN. Creatinine is improving and Na. is now normalized. Avoid nephrotoxins. Creatinine improving, k is better after replacement. Continue IVF, can stop if tolerating feeding. (2) Respiratory failure ICD Codes: J96.90 - Respiratory failure, unspecified, unspecified whether with hypoxia or hypercapnia Plan: Resting now On F1O2 at 30% via trach (3) Non-ischemic cardiomyopathy ICD Codes: I42.8 - Other cardiomyopathies Status: Chronic Plan: Lasix on hold On metoprolol (4) Paroxysmal atrial fibrillation ICD Codes: I48.0 - Paroxysmal atrial fibrillation Status: Acute Plan: rate controlled metoprolol and Cardizem On Eliquis for anticoagulation (5) Hypokalemia ICD Codes: E87.6 - Hypokalemia Plan: K 2.9 Daily replacement increased. Receiving IV also (6) Seizure ICD Codes: R56.9 - Unspecified convulsions Plan: continue Topamax (7) Hypernatremia ICD Codes: E87.0 - Hyperosmolality and hypernatremia Plan: changed IVF to 1/4NS Rajan Hoyt MD Dec 04, 2017 18:36
[2017-12-04] MEDS: RESP: ALBUTEROL 2.5 MG/3 ML NEB (PRN) NEB (19:45)
[2017-12-04] MEDS: ATORVASTATIN 80 MG TAB PO SCH (21:00)
[2017-12-04] MEDS: CHLORHEXIDINE GLUCONATE 2 % 1 PACK (2 CLOTHS) TOP SCH (21:53)
[2017-12-04] MEDS: DILTIAZEM IV SCH (22:27)
[2017-12-04] MEDS: SODIUM CHLORIDE 0.9% IV SCH (22:27)
[2017-12-05] VITALS (18 sets, daily range): BP systolic 107–160; BP diastolic 60–83; PULSE 77–104; RESP 23–26; TEMP 98.9–99.5; O2SAT 95–100
[2017-12-05 05:08] LABS: AUTOMATED NEUTROPHIL # 7.8 TH/MM3 (1.8-7.7); BASOPHIL # 0.1 TH/MM3 (0-0.2); EOSINOPHIL # 0.2 TH/MM3 (0-0.4); EOSINOPHIL % 1.7 % (0.0-4.0); HEMATOCRIT 37.4 % (39.0-51.0); HEMOGLOBIN 12.4 GM/DL (13.0-17.0); LYMPH % 15.4 % (9.0-44.0); LYMPHOCYTE # 1.6 TH/MM3 (1.0-4.8); MEAN CELL VOLUME 86.9 FL (80.0-100.0); MEAN CORPUSCULAR HGB CONC 33.3 % (32.0-36.0); MEAN PLATELET VOLUME 11.8 FL (7.0-11.0); MONO % 7.7 % (0.0-8.0); MONOCYTE # 0.8 TH/MM3 (0-0.9); NEUT % 74.2 % (16.0-70.0); PLATELET COUNT 182 TH/MM3 (150-450); RED CELL DISTRIBUTION WIDTH 14.9 % (11.6-17.2); WHITE BLOOD COUNT 10.5 TH/MM3 (4.0-11.0)
[2017-12-05] MEDS: DILTIAZEM IV SCH ×4 (05:22→22:57)
[2017-12-05] MEDS: ARTIFICIAL TEARS OPTH SOLN 15 ML BTL EACH EYE SCH ×3 (05:22→22:58)
[2017-12-05] MEDS: SODIUM CHLORIDE 0.9% IV SCH ×4 (05:22→22:57)
[2017-12-05] MEDS: DILTIAZEM HCL 60 MG TAB PO SCH (05:23)
[2017-12-05 05:34] LABS: ALBUMIN 2.6 GM/DL (3.4-5.0); ALT (GPT) 183 U/L (12-78); AST (GOT) 80 U/L (15-37); BICARBONATE 16.7 MEQ/L (21.0-32.0); BLOOD UREA NITROGEN 36 MG/DL (7-18); CALCIUM 8.8 MG/DL (8.5-10.1); CHLORIDE 119 MEQ/L (98-107); CREATININE 1.49 MG/DL (0.60-1.30); GLOMERULAR FILTRATION RATE 59 ML/MIN (>89); GLUCOSE,RANDOM 78 MG/DL (74-106); SODIUM (NA) 146 MEQ/L (136-145)
[2017-12-05 05:37] LABS: ALKALINE PHOSPHATASE 179 U/L (45-117); TOTAL PROTEIN 7.5 GM/DL (6.4-8.2)
[2017-12-05] MEDS: INSULIN NovoLIN REGULAR SUPPLEMENTAL SCALE SQ SCH ×4 (05:52→17:35)
[2017-12-05] MEDS: ONDANSETRON HCL 4 MG/2 ML VIAL IV PUSH PRN (06:20)
[2017-12-05] MEDS: CHLORHEXIDINE 0.12% (ORAL KIT) 15 ML CUP MT SCH ×2 (08:00→22:56)
--- NOTE | 2017-12-05 08:43 | HHI.CCPN ---
Subjective Remarks/Hospital Course 57 y/o man with chronic nonischemic cardiomyopathy, EF 20% presents two days ago to ED with a-fib and RVR. Morbid obesity and chronic obesity hypoventilation syndrome. Developed bradycardia requiring atropine this morning , rushed to [facility] where on arrival he is obtunded with agonal respirations. Rate acceptable, depth shallow. Required bag mask ventilation, dopamine and levophed. Unable to intubate despite optic endoscope; proceeded to tracheostomy. Sats maintained > 80% throughout. Initial pH 7.14. 11/17: S/P resuscitation for probable hypercapneic respiratory arrest with bradycardia, hypotension. Has required mechanical ventilation. Perfusion improved after inotropic support instituted, now tapering. Elevated LFTs may reflect period of inadequate perfusion. 11/18: Doing well on T-piece. Resolving shock liver, DENNYS. Should go home with trach. 11/19: Fatigues on CPAP/T-piece. Will need LTAC. 11/20: stable. still volume overloaded by clinical exam. will need LTAC placement. SUBJECTIVE: 11/21: Tmax 1.3. Currently 99.9. Remains on PRvC ventilation. NG tube is been resumed. Remains on furosemide 40 mg IV 3 times daily. Heart rate slightly tachycardic 11/22: Pulse intermittently 150. Consistently 120s. Will add PO cardizem and attempt to get better rate control - permanent a-fib. 11/23: Heart rate control improved on po cardizem. Slightly over-diuresed, will back off on lasix. 11/24: Persistent intractable coughing. Low grade fever. Deteriorating renal function. CXR with pulmonary venous congestion but no consolidation or infiltrate. 11/25: Unable to wean ventilator. Hold lasix today, review pending renal function. 11/26: No events over the night. Patient doing well, sat in chair, now back in bed. Good spirits, follows commands. Afebrile. I/O 2444/675. 11/27: No events throughout the night. This AM, patient is resting comfortable. Afebrile, I/O 2537/1350. 11/28: Patient did well through the night. This AM, awake, doing great on PS 5/ 5. Tmax 99.3, I/O 1335/950. 11/29: No events over the night. Patient awake, on CPAP. Tolerated T piece for 8 hours yesterday. Lower urine output over the last few hours. 11/30: No events. Did well on T piece yesterday. Afebrile, I/O . Awake. 12/01: Patient resting comfortable, easily arousable. Afebrile. 12/02: Renal function improving, tolerating diuresis. Heart rate control acceptable. 12/03: Lying in bed. No acute distress follows commands. Renal function stable. UO 1.5 L in 24 hours 12/04: Awake alert, tolerating CPAP. Pulled his NG tube yesterday night, now replaced. Will consult GI for PEG placement. 12/05: Getting ahead on free water. Continue weaning efforts. Remains cooperative, alert. Objective Vital Signs Date Time Temp Pulse Resp B/P (MAP) Pulse Ox O2 Delivery O2 Flow Rate FiO2 12/05/17 08:33 98 30 12/05/17 06:00 88 12/05/17 05:22 118/71 12/05/17 04:00 26 12/05/17 00:00 99.5 Intake and Output 12/05/17 12/05/17 12/06/17 08:00 16:00 00:00 Intake Total 0 ml Output Total 900 ml Balance -900 ml Result Diagram: 12/05/17 0447 12/05/17 0447 Imaging Last Impressions Chest X-Ray 11/19/17 0000 Signed Impressions: Service Date/Time: Sunday, November 19, 2017 11:33 - CONCLUSION: Improved basilar opacities essentially cleared on the right and minimal residual on the left. Efrain Dimas MD Abdomen X-Ray 11/16/17 0000 Signed Impressions: Service Date/Time: Thursday, November 16, 2017 09:53 - CONCLUSION: Nasogastric tube tip in the region of the distal stomach. Jose Bruno MD Objective Remarks General - middle age gentleman, awake, in no distress, on vent via trach HEENT - pupils equal, reactive, neck soft, no JVD, + trach (XLT) - site clean, dry. NGT in place CV - irregular heart sounds, no murmurs Chest - clear breath sounds b/l, no wheezes, good air entry Abdomen - soft, obese, non-tender, BS hyperactive Extremities - warm, 1+ edema, + peripheral pulses Neuro - awake, alert, follows commands, moves all extremities A/P Problem List: (1) Acute on chronic respiratory failure with hypoxemia ICD Code: J96.21 - Acute and chronic respiratory failure with hypoxia (2) Symptomatic bradycardia ICD Code: R00.1 - Bradycardia, unspecified Status: Acute (3) Morbid obesity with BMI of 50.0-59.9, adult ICD Code: E66.01 - Morbid (severe) obesity due to excess calories; Z68.43 - Body mass index (BMI) 50-59.9 , adult Status: Acute (4) Atrial fibrillation ICD Code: I48.91 - Unspecified atrial fibrillation Status: Chronic (5) CKD (chronic kidney disease), stage III ICD Code: N18.3 - Chronic kidney disease, stage 3 (moderate) Status: Chronic (6) Chronic systolic CHF (congestive heart failure) ICD Code: I50.22 - Chronic systolic (congestive) heart failure Status: Chronic Assessment and Plan ASSESSMENT 1. Acute hypercapneic and hypoxic respiratory failure s/p emergent trach - tolerating T piece during daytime and PS at night 2. Afib/flutter with RVR - rate controlled 3. Mixed gram negative bronchitis vs pneumonia - afebrile, minimal leukocytosis 4. DENNYS on CKD - slowly improving, good urine output, followed by nephrology 5. Hypokalemia 6. NICM with EF 20% 7. Shock liver, likely secondary to hypoperfusion - improving 8. H/o seizure d/o 9. H/o cardiac arrest 10. DM 11. Possible CHINO/OHS 12. Enterococcus in urine 13. Hypernatremia - better, started on free water PLAN 1. T piece during daytime as tolerated and PS at night 2. Ventilator bundle and bronchodilators 3. Ceftriaxone, stopped, completed a 7d course, reculture for fevers, repeat urine culture today, if positive for enterococcus, will treat 4. Electrolyte replacement per protocol 5. OOB to chair, as tolerated 6. On metoprolol and Cardizem. shelter may need to stop Cardizem due to compounding negative inotropy effect. On apixaban 7. Holding amiodarone. 8. Will need FABRICE/ARB and spironolactone once renal function improves 9. Continue statin 10. On topiramate for underlying seizure disorder 11. Glycemic control with insulin sliding scale 12. TF with nepro and free water 13. GI prophylaxis 14. DVT prophylaxis addressed 15. Consult GI for peg placement Overall impression: Would benefit from LTAC placement. Will leave #8 XLT as permanent trach. GI consulted for PEG placement. Follow nutritional values. Sohail Ma MD Dec 05, 2017 08:43
[2017-12-05] MEDS: POLYETHYLENE GLYCOL 17 GM PKG NG SCH ×2 (09:00→21:00)
[2017-12-05] MEDS: TOPIRAMATE 200 MG TAB PO SCH (09:00)
[2017-12-05] MEDS: METOPROLOL TARTRATE 100 MG TAB PO SCH ×2 (09:00→21:00)
[2017-12-05] MEDS: POTASSIUM CHLORIDE 20 MEQ PWD PACKET NG SCH ×2 (09:00→21:00)
[2017-12-05] MEDS: DOCUSATE SODIUM 50 MG/SENNA 8.6 MG TAB PO SCH ×2 (09:00→21:00)
[2017-12-05] MEDS: SODIUM CHLORIDE 0.9% FLUSH 10 ML FLUSH IV FLUSH SCH ×2 (09:00→21:00)
[2017-12-05] MEDS: FAMOTIDINE 20 MG TAB NG SCH ×2 (09:00→21:00)
[2017-12-05] MEDS: MORPHINE SULFATE 2 MG/ML INJ IV PUSH PRN (09:27)
[2017-12-05] MEDS: oxyCODONE HCL ORAL CONC 5 MG/0.25 ML SYRINGE NG PRN (09:30)
[2017-12-05] MEDS: SODIUM CHLORIDE 23.4% INJ 38.5 MEQ in WATER STERILE FOR INJ 1,000 ML IV SCH (10:00)
--- NOTE | 2017-12-05 11:13 | HHI.NPPN ---
Subjective General Problems: Anemia, Edema, Heart Disease, Obesity Renal Failure: Chronic, Acute, Stage IV History of Present Illness Patient is a 57-year-old -Cyp[place] male with past medical history of seizure disorder, chronic systolic congestive heart failure, hx of respiratory failure requiring tracheostomy placement, hx of cardiogenic shock with PEA arrest, chronic kidney disease, hypertension, diabetes mellitus, atrial fibrillation who was admitted with increased swelling and afib RVR. I was called to see the patient for elevated BUN and creatinine. The patient has a known history of chronic kidney disease and it seems like his baseline creatinine has been in the range of 1.4 to 2.0 and it has increased now at 2.83. Chest Xray noted with pulmonary edema. On ventilator via trach at 40 % FiO2 and weaning trial this morning. Was receiving lasix 40 mg daily which is on hold for elevating renal indices and patient is receiving IVF NS at 100 ml per hour for 1 bag. The patient is not able to give any history because he has a tracheostomy but he is responding to verbal commands and he seems to be fully awake in good spirits. Additional Remarks On the vent. via Trach resting comfortably, not in distress. (Petra Banks) Objective Data Data Vital Signs Date Time Temp Pulse Resp B/P (MAP) Pulse Ox O2 Delivery O2 Flow Rate FiO2 12/05/17 08:33 98 30 12/05/17 08:30 30 12/05/17 06:00 88 12/05/17 05:40 98 30 12/05/17 05:22 131 118/71 12/05/17 04:00 104 12/05/17 04:00 104 26 107/66 (80) 95 12/05/17 04:00 30 12/05/17 03:21 97 30 12/05/17 02:00 102 12/05/17 00:37 96 30 12/05/17 00:00 30 12/05/17 00:00 100 12/05/17 00:00 99.5 100 25 160/62 (94) 100 12/04/17 22:27 109 120/71 12/04/17 22:00 112 12/04/17 20:00 99.0 90 22 108/63 (78) 100 12/04/17 20:00 30 12/04/17 20:00 90 12/04/17 19:47 100 30 12/04/17 18:00 98 12/04/17 16:13 98 30 12/04/17 16:00 99.2 107 27 131/85 (100) 98 12/04/17 16:00 107 12/04/17 16:00 35 12/04/17 15:13 100 35 12/04/17 15:10 35 12/04/17 14:00 98 12/04/17 12:00 70 12/04/17 12:00 98.8 70 19 128/72 (90) 98 12/04/17 12:00 35 12/04/17 11:19 100 30 (Petra Banks) -: 12/05/17 0447 12/05/17 0447 Microbiology 12/04/17 Urine Culture, Received Pending (Petra Banks) Physical Exam General Appearance: Obese (Petra BanksP) Eyes Eye Exam: Pupils Equal (Petra Banks) Neck Neck Remarks trach (Petra Banks) Pulmonary Resp Exam: No Distress, Decreased Bases (Petra BanksP) Cardiology CV Exam: Irregular (Petra BanksP) Gastrointestinal/Abdomen GI Exam: Non-Tender, Bowel Sounds Present (Petra BanksP) Genitourinary Exam: Flank Non-Tender (Petra BanksP) Integumentary Skin Exam: Clear, Warm (Petra BanksP) Extremeties Extremities Exam: Trace Edema (Petra BanksP) Neurologic Neuro Exam: Alert, Awake (Petra BanksP) Psychiatric Psych Exam: Appropriate Responses Psych Remarks Nods to commands (Petra BanksP) Assessment/Plan Problem List: (1) CKD (chronic kidney disease), stage III ICD Codes: N18.3 - Chronic kidney disease, stage 3 (moderate) Status: Chronic Plan: Likely pre-renal, may have progressed to ATN. Creatinine stable at1.49 and Na. at 146 K low at 3.2 replacement given Avoid nephrotoxins. IVF 1/2 NS at 42ml/hr , can stop if tolerating feeding. (2) Respiratory failure ICD Codes: J96.90 - Respiratory failure, unspecified, unspecified whether with hypoxia or hypercapnia Plan: Resting now On F1O2 at 30% via trach (3) Non-ischemic cardiomyopathy ICD Codes: I42.8 - Other cardiomyopathies Status: Chronic Plan: Lasix on hold On metoprolol (4) Paroxysmal atrial fibrillation ICD Codes: I48.0 - Paroxysmal atrial fibrillation Status: Acute Plan: rate controlled metoprolol and Cardizem On Eliquis for anticoagulation (5) Hypokalemia ICD Codes: E87.6 - Hypokalemia Plan: K 2.9 Daily replacement increased. Receiving IV also (6) Seizure ICD Codes: R56.9 - Unspecified convulsions Plan: continue Topamax (7) Hypernatremia ICD Codes: E87.0 - Hyperosmolality and hypernatremia Plan: IVF to 1/4NS (Petra Banks) Problem List: (1) CKD (chronic kidney disease), stage III ICD Codes: N18.3 - Chronic kidney disease, stage 3 (moderate) Status: Chronic Plan: Likely pre-renal, may have progressed to ATN. Creatinine stable at1.49 and Na. at 146 K low at 3.2 replacement given Avoid nephrotoxins. IVF 1/2 NS at 42ml/hr , can stop if tolerating feeding. Patient seen, examined and agree with above. K is low, replaced. (2) Respiratory failure ICD Codes: J96.90 - Respiratory failure, unspecified, unspecified whether with hypoxia or hypercapnia Plan: Resting now On F1O2 at 30% via trach (3) Non-ischemic cardiomyopathy ICD Codes: I42.8 - Other cardiomyopathies Status: Chronic Plan: Lasix on hold On metoprolol (4) Paroxysmal atrial fibrillation ICD Codes: I48.0 - Paroxysmal atrial fibrillation Status: Acute Plan: rate controlled metoprolol and Cardizem On Eliquis for anticoagulation (5) Hypokalemia ICD Codes: E87.6 - Hypokalemia Plan: K 2.9 Daily replacement increased. Receiving IV also (6) Seizure ICD Codes: R56.9 - Unspecified convulsions Plan: continue Topamax (7) Hypernatremia ICD Codes: E87.0 - Hyperosmolality and hypernatremia Plan: IVF to 1/4NS (Rajan Hoyt MD) Petra Banks Dec 05, 2017 11:13 Rajan Hoyt MD Dec 05, 2017 17:24
--- NOTE | 2017-12-05 11:22 | HHI.GIFU ---
Subjective Remarks Pt resting in bed in NAD. Awake. Nonverbal.NGT repeatedly displaced when pt has paroxysms of coughing. (Natasha Herbert) Objective Vitals I&O Vital Signs Date Time Temp Pulse Resp B/P (MAP) Pulse Ox O2 Delivery O2 Flow Rate FiO2 12/05/17 08:33 98 30 12/05/17 08:30 30 12/05/17 06:00 88 12/05/17 05:40 98 30 12/05/17 05:22 131 118/71 12/05/17 04:00 104 12/05/17 04:00 104 26 107/66 (80) 95 12/05/17 04:00 30 12/05/17 03:21 97 30 12/05/17 02:00 102 12/05/17 00:37 96 30 12/05/17 00:00 30 12/05/17 00:00 100 12/05/17 00:00 99.5 100 25 160/62 (94) 100 12/04/17 22:27 109 120/71 12/04/17 22:00 112 12/04/17 20:00 99.0 90 22 108/63 (78) 100 12/04/17 20:00 30 12/04/17 20:00 90 12/04/17 19:47 100 30 12/04/17 18:00 98 12/04/17 16:13 98 30 12/04/17 16:00 99.2 107 27 131/85 (100) 98 12/04/17 16:00 107 12/04/17 16:00 35 12/04/17 15:13 100 35 12/04/17 15:10 35 12/04/17 14:00 98 12/04/17 12:00 70 12/04/17 12:00 98.8 70 19 128/72 (90) 98 12/04/17 12:00 35 12/04/17 11:19 100 30 I/O 12/04/17 12/04/17 12/04/17 12/05/17 12/05/17 12/05/17 07:00 15:00 23:00 07:00 15:00 23:00 Intake Total 868 ml 200 ml 577 ml 0 ml Output Total 750 ml 200 ml 1035 ml 900 ml Balance 118 ml 0 ml -458 ml -900 ml IV Total 445 ml Tube Feeding 568 ml 132 ml 0 ml Other 300 ml 200 ml 0 ml Output Urine Total 750 ml 675 ml 600 ml Stool Total 0 ml 200 ml 360 ml 300 ml Laboratory Laboratory Tests Test 12/04/17 13:18 12/05/17 04:47 Blood Urea Nitrogen 38 36 Creatinine 1.42 1.49 Random Glucose 116 78 Total Protein 6.7 7.5 Albumin 2.4 2.6 Calcium Level 8.9 8.8 Alkaline Phosphatase 185 179 Aspartate Amino Transf (AST/SGOT) 96 80 Alanine Aminotransferase (ALT/SGPT) 190 183 Total Bilirubin 0.6 1.0 Sodium Level 144 146 Potassium Level 3.6 3.2 Chloride Level 120 119 Carbon Dioxide Level 14.9 16.7 Anion Gap 9 10 Estimat Glomerular Filtration Rate 62 59 White Blood Count 10.5 Red Blood Count 4.30 Hemoglobin 12.4 Hematocrit 37.4 Mean Corpuscular Volume 86.9 Mean Corpuscular Hemoglobin 29.0 Mean Corpuscular Hemoglobin Concent 33.3 Red Cell Distribution Width 14.9 Platelet Count 182 Mean Platelet Volume 11.8 Neutrophils (%) (Auto) 74.2 Lymphocytes (%) (Auto) 15.4 Monocytes (%) (Auto) 7.7 Eosinophils (%) (Auto) 1.7 Basophils (%) (Auto) 1.0 Neutrophils # (Auto) 7.8 Lymphocytes # (Auto) 1.6 Monocytes # (Auto) 0.8 Eosinophils # (Auto) 0.2 Basophils # (Auto) 0.1 CBC Comment DIFF FINAL Differential Comment Date/Time Source Procedure Growth Status 11/22/17 07:13 Blood Peripheral Aerobic Blood Culture - Final NO GROWTH IN 5 DAYS Complete 11/22/17 07:13 Blood Peripheral Anaerobic Blood Culture - Final NO GROWTH IN 5 DAYS Complete 11/21/17 18:00 Sputum Endotracheal Gram Stain - Final Complete 11/21/17 18:00 Sputum Culture - Final Enterobacter Aerogenes Proteus Mirabilis Haemophilus Influenzae Complete 12/04/17 12:50 Urine Catheterized Urine Urine Culture Pending Received Imaging Last Impressions Chest X-Ray 11/27/17 0000 Signed Impressions: Service Date/Time: Monday, November 27, 2017 10:56 - CONCLUSION: Cardiomegaly with mild congestive failure, minimal improvement. Rell Valentin MD FACR Abdomen X-Ray 11/16/17 0000 Signed Impressions: Service Date/Time: Thursday, November 16, 2017 09:53 - CONCLUSION: Nasogastric tube tip in the region of the distal stomach. Jose Bruno MD Physical Exam HEENT: PERRL; normocephalic; atraumatic; no jaundice. trach CHEST: diminished CARDIAC: irregular HR ABDOMEN: Soft,obese, nontender; no hepatosplenomegaly; bowel sounds are present in all four quadrants. EXTREMITIES: No clubbing, cyanosis, or edema. SKIN: Normal; no rash; no jaundice. LANDING SIGNAL OFFICER: awake nonverbal (Natasha Herbert) Assessment and Plan Plan Assessment - S/P tracheostomy, now requiring PEG for nutrition. Previous NG tube, unsure why it has been discontinued. Was receiving Vital high protein @ 65 mL/hr. Of note, pt is on Elquis, last dosage received this morning. Will need to be discontinued for PEG tube placement to be done. 12/05/17 pt having coughing fits and NGT comes out. PEG tomorrow. NAD. stable. Plan: EGD with PEG tube placement on tomorrow NPO after MN tonight Hold Eliquis until after procedure Supportive care Further recommendations to follow pt seen by myself and Dr Matthew and this note is written on his behalf (Natasha Herbert) Physician Comments Seen and examined with ABHINAV< egd/peg tomorrow. 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 TF on hold, anticoagulation on hold. (Renata Matthew MD) Natasha Herbert Dec 05, 2017 11:22 Renata Matthew MD Dec 05, 2017 16:15
[2017-12-05] MEDS: ATORVASTATIN 80 MG TAB PO SCH (21:00)
[2017-12-06] VITALS (20 sets, daily range): BP systolic 105–146; BP diastolic 65–79; PULSE 61–104; RESP 13–23; TEMP 98.1–99.3; O2SAT 97–100
[2017-12-06] MEDS: CHLORHEXIDINE GLUCONATE 2 % 1 PACK (2 CLOTHS) TOP SCH (04:00)
[2017-12-06] MEDS: SODIUM CHLORIDE 0.9% IV SCH ×4 (04:15→22:18)
[2017-12-06] MEDS: DILTIAZEM IV SCH ×4 (04:15→22:18)
[2017-12-06] MEDS: ARTIFICIAL TEARS OPTH SOLN 15 ML BTL EACH EYE SCH ×3 (06:00→21:55)
[2017-12-06] MEDS: INSULIN NovoLIN REGULAR SUPPLEMENTAL SCALE SQ SCH ×4 (06:00→18:00)
[2017-12-06 06:24] LABS: BICARBONATE 15.4 MEQ/L (21.0-32.0); CALCIUM 9.1 MG/DL (8.5-10.1); CREATININE 1.41 MG/DL (0.60-1.30)
[2017-12-06] MEDS: CHLORHEXIDINE 0.12% (ORAL KIT) 15 ML CUP MT SCH ×2 (08:00→21:53)
--- NOTE | 2017-12-06 08:10 | HHI.CCPN ---
Subjective Remarks/Hospital Course 57 y/o man with chronic nonischemic cardiomyopathy, EF 20% presents two days ago to ED with a-fib and RVR. Morbid obesity and chronic obesity hypoventilation syndrome. Developed bradycardia requiring atropine this morning , rushed to [facility] where on arrival he is obtunded with agonal respirations. Rate acceptable, depth shallow. Required bag mask ventilation, dopamine and levophed. Unable to intubate despite optic endoscope; proceeded to tracheostomy. Sats maintained > 80% throughout. Initial pH 7.14. 11/17: S/P resuscitation for probable hypercapneic respiratory arrest with bradycardia, hypotension. Has required mechanical ventilation. Perfusion improved after inotropic support instituted, now tapering. Elevated LFTs may reflect period of inadequate perfusion. 11/18: Doing well on T-piece. Resolving shock liver, DENNYS. Should go home with trach. 11/19: Fatigues on CPAP/T-piece. Will need LTAC. 11/20: stable. still volume overloaded by clinical exam. will need LTAC placement. SUBJECTIVE: 11/21: Tmax 1.3. Currently 99.9. Remains on PRvC ventilation. NG tube is been resumed. Remains on furosemide 40 mg IV 3 times daily. Heart rate slightly tachycardic 11/22: Pulse intermittently 150. Consistently 120s. Will add PO cardizem and attempt to get better rate control - permanent a-fib. 11/23: Heart rate control improved on po cardizem. Slightly over-diuresed, will back off on lasix. 11/24: Persistent intractable coughing. Low grade fever. Deteriorating renal function. CXR with pulmonary venous congestion but no consolidation or infiltrate. 11/25: Unable to wean ventilator. Hold lasix today, review pending renal function. 11/26: No events over the night. Patient doing well, sat in chair, now back in bed. Good spirits, follows commands. Afebrile. I/O 2444/675. 11/27: No events throughout the night. This AM, patient is resting comfortable. Afebrile, I/O 2537/1350. 11/28: Patient did well through the night. This AM, awake, doing great on PS 5/ 5. Tmax 99.3, I/O 1335/950. 11/29: No events over the night. Patient awake, on CPAP. Tolerated T piece for 8 hours yesterday. Lower urine output over the last few hours. 11/30: No events. Did well on T piece yesterday. Afebrile, I/O . Awake. 12/01: Patient resting comfortable, easily arousable. Afebrile. 12/02: Renal function improving, tolerating diuresis. Heart rate control acceptable. 12/03: Lying in bed. No acute distress follows commands. Renal function stable. UO 1.5 L in 24 hours 12/04: Awake alert, tolerating CPAP. Pulled his NG tube yesterday night, now replaced. Will consult GI for PEG placement. 12/05: Getting ahead on free water. Continue weaning efforts. Remains cooperative, alert. 12/06: Fluid balance about right. Progressing slowly with mobility to stretcher chair and vent weaning. Objective Vital Signs Date Time Temp Pulse Resp B/P (MAP) Pulse Ox O2 Delivery O2 Flow Rate FiO2 12/06/17 06:00 87 12/06/17 04:15 115/68 12/06/17 04:11 100 30 12/06/17 04:00 99.1 21 Intake and Output 12/06/17 12/06/17 12/07/17 08:00 16:00 00:00 Output Total 1100 ml Balance -1100 ml Result Diagram: 12/05/17 0447 12/06/17 0523 Imaging Last Impressions Chest X-Ray 11/19/17 0000 Signed Impressions: Service Date/Time: Sunday, November 19, 2017 11:33 - CONCLUSION: Improved basilar opacities essentially cleared on the right and minimal residual on the left. Efrain Dimas MD Abdomen X-Ray 11/16/17 0000 Signed Impressions: Service Date/Time: Thursday, November 16, 2017 09:53 - CONCLUSION: Nasogastric tube tip in the region of the distal stomach. Jose Bruno MD Objective Remarks General - middle age gentleman, awake, in no distress, on vent via trach HEENT - pupils equal, reactive, neck soft, no JVD, + trach (XLT) - site clean, dry. NGT in place CV - irregular heart sounds, no murmurs. No JVD. Chest - clear breath sounds b/l, no wheezes, good air entry Abdomen - soft, obese, non-tender, BS hyperactive Extremities - warm, 1+ edema, + peripheral pulses Neuro - awake, alert, follows commands, moves all extremities, nods head to questions. A/P Problem List: (1) Acute on chronic respiratory failure with hypoxemia ICD Code: J96.21 - Acute and chronic respiratory failure with hypoxia (2) Symptomatic bradycardia ICD Code: R00.1 - Bradycardia, unspecified Status: Acute (3) Morbid obesity with BMI of 50.0-59.9, adult ICD Code: E66.01 - Morbid (severe) obesity due to excess calories; Z68.43 - Body mass index (BMI) 50-59.9 , adult Status: Acute (4) Atrial fibrillation ICD Code: I48.91 - Unspecified atrial fibrillation Status: Chronic (5) CKD (chronic kidney disease), stage III ICD Code: N18.3 - Chronic kidney disease, stage 3 (moderate) Status: Chronic (6) Chronic systolic CHF (congestive heart failure) ICD Code: I50.22 - Chronic systolic (congestive) heart failure Status: Chronic Assessment and Plan ASSESSMENT: 1. Acute hypercapneic and hypoxic respiratory failure s/p emergent trach - still tolerating T piece during daytime and PS at night 2. Afib/flutter with RVR - rate controlled 3. Mixed gram negative bronchitis vs pneumonia - afebrile, minimal leukocytosis 4. DENNYS on CKD - slowly improving, good urine output, followed by nephrology 5. Hypokalemia 6. NICM with EF 20% 7. Shock liver, likely secondary to hypoperfusion - improving 8. H/o seizure d/o 9. H/o cardiac arrest 10. DM, Type 2 11. Possible CHINO/OHS 12. Enterococcus in urine 13. Hypernatremia - better, on free water PLAN: 1. T piece during daytime as tolerated and PS at night 2. Ventilator bundle and bronchodilators 3. Ceftriaxone, stopped, completed a 7d course, reculture for fevers, repeat urine culture today, if positive for enterococcus, will treat 4. Electrolyte replacement per protocol 5. OOB to chair, as tolerated 6. On metoprolol and Cardizem. 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 On apixaban 7. Holding amiodarone. 8. Will need FABRICE/ARB and spironolactone once renal function improves 9. Continue statin 10. On topiramate for underlying seizure disorder 11. Glycemic control with insulin sliding scale 12. TF with nepro and free water 13. GI prophylaxis 14. DVT prophylaxis addressed 15. Consult GI for peg placement Overall impression: Would benefit from LTAC placement. Will leave #8 XLT as permanent trach. GI consulted for PEG placement. Follow nutritional values. Continue to mobilize. Sohail Ma MD Dec 06, 2017 08:10
[2017-12-06] MEDS: POLYETHYLENE GLYCOL 17 GM PKG NG SCH ×2 (09:00→21:54)
[2017-12-06] MEDS: TOPIRAMATE 200 MG TAB PO SCH (09:00)
[2017-12-06] MEDS: DOCUSATE SODIUM 50 MG/SENNA 8.6 MG TAB PO SCH ×2 (09:00→21:55)
[2017-12-06] MEDS: SODIUM CHLORIDE 0.9% FLUSH 10 ML FLUSH IV FLUSH SCH ×2 (09:00→21:52)
[2017-12-06] MEDS: POTASSIUM CHLORIDE 20 MEQ PWD PACKET NG SCH ×2 (09:00→21:54)
[2017-12-06] MEDS: METOPROLOL TARTRATE 100 MG TAB PO SCH ×2 (09:00→21:55)
[2017-12-06] MEDS: FAMOTIDINE 20 MG TAB NG SCH ×2 (09:00→21:54)
[2017-12-06] MEDS: SODIUM CHLORIDE 23.4% INJ 38.5 MEQ in WATER STERILE FOR INJ 1,000 ML IV SCH ×2 (10:00→19:29)
--- NOTE | 2017-12-06 11:49 | HHI.NPPN ---
Subjective General Problems: Anemia, Edema, Heart Disease, Obesity Renal Failure: Chronic, Acute, Stage IV History of Present Illness Patient is a 57-year-old -[place] male with past medical history of seizure disorder, chronic systolic congestive heart failure, hx of respiratory failure requiring tracheostomy placement, hx of cardiogenic shock with PEA arrest, chronic kidney disease, hypertension, diabetes mellitus, atrial fibrillation who was admitted with increased swelling and afib RVR. I was called to see the patient for elevated BUN and creatinine. The patient has a known history of chronic kidney disease and it seems like his baseline creatinine has been in the range of 1.4 to 2.0 and it has increased now at 2.83. Chest Xray noted with pulmonary edema. On ventilator via trach at 40 % FiO2 and weaning trial this morning. Was receiving lasix 40 mg daily which is on hold for elevating renal indices and patient is receiving IVF NS at 100 ml per hour for 1 bag. The patient is not able to give any history because he has a tracheostomy but he is responding to verbal commands and he seems to be fully awake in good spirits. Additional Remarks On the vent. via Trach resting comfortably, not in distress. (Petra Banks) Objective Data Data Vital Signs Date Time Temp Pulse Resp B/P (MAP) Pulse Ox O2 Delivery O2 Flow Rate FiO2 12/06/17 10:30 40 12/06/17 10:00 88 12/06/17 09:28 100 30 12/06/17 08:00 88 12/06/17 08:00 99.3 88 22 105/70 (82) 99 12/06/17 08:00 30 12/06/17 06:00 87 12/06/17 04:15 83 115/68 12/06/17 04:11 100 30 12/06/17 04:00 99.1 89 21 115/68 (84) 99 12/06/17 04:00 89 12/06/17 04:00 30 12/06/17 02:00 76 12/06/17 01:44 97 30 12/06/17 00:00 99.0 61 22 146/65 (92) 98 12/06/17 00:00 61 12/06/17 00:00 30 12/05/17 22:57 93 125/79 12/05/17 22:00 77 12/05/17 20:00 99.2 87 26 140/83 (102) 99 12/05/17 20:00 30 12/05/17 20:00 87 12/05/17 19:52 100 30 12/05/17 18:00 88 12/05/17 17:00 102 148/60 12/05/17 16:00 30 12/05/17 16:00 90 12/05/17 16:00 98.9 96 23 127/60 (82) 100 12/05/17 15:39 98 30 12/05/17 12:00 90 12/05/17 12:00 30 (Petra Banks BI ANALYST) -: 12/05/17 0447 12/06/17 0523 Physical Exam General Appearance: Obese (Karol Banksne M. BI ANALYST) Eyes Eye Exam: Pupils Equal (FelizmannKarolPetra M. BI ANALYST) Neck Neck Remarks trach (HannahlermannKarolPetra M. BI ANALYST) Pulmonary Resp Exam: No Distress, Decreased Bases (FelizmannKarolPetra M. BI ANALYST) Cardiology CV Exam: Irregular (HannahlermannKarolPetra M. BI ANALYST) Gastrointestinal/Abdomen GI Exam: Non-Tender, Bowel Sounds Present (HannahlermannKarolPetra M. BI ANALYST) Genitourinary Exam: Flank Non-Tender (HannahlermannKarolPetra M. BI ANALYST) Integumentary Skin Exam: Clear, Warm (GellermannPetra M. BI ANALYST) Extremeties Extremities Exam: Trace Edema (GellermannPetra M. BI ANALYST) Neurologic Neuro Exam: Alert, Awake (HannahlermannPetra M. BI ANALYST) Psychiatric Psych Exam: Appropriate Responses Psych Remarks Nods to commands (HannahlertavoPetra M. BI ANALYST) Assessment/Plan Problem List: (1) CKD (chronic kidney disease), stage III ICD Codes: N18.3 - Chronic kidney disease, stage 3 (moderate) Status: Chronic Plan: Likely pre-renal, may have progressed to ATN. Creatinine stable at 1.41 and Na. at 144 K low at 3.0 replacement given Continues to have good urinary output Avoid nephrotoxins. IVF 1/2 NS at 42ml/hr , can stop if tolerating feeding. (2) Respiratory failure ICD Codes: J96.90 - Respiratory failure, unspecified, unspecified whether with hypoxia or hypercapnia Plan: Resting now On F1O2 at 30% via trach (3) Non-ischemic cardiomyopathy ICD Codes: I42.8 - Other cardiomyopathies Status: Chronic Plan: Lasix on hold On metoprolol (4) Paroxysmal atrial fibrillation ICD Codes: I48.0 - Paroxysmal atrial fibrillation Status: Acute Plan: rate controlled metoprolol and Cardizem On Eliquis for anticoagulation (5) Hypokalemia ICD Codes: E87.6 - Hypokalemia (6) Seizure ICD Codes: R56.9 - Unspecified convulsions Plan: continue Topamax (7) Hypernatremia ICD Codes: E87.0 - Hyperosmolality and hypernatremia Plan: IVF to 1/4NS (Petra Banks) Problem List: (1) CKD (chronic kidney disease), stage III ICD Codes: N18.3 - Chronic kidney disease, stage 3 (moderate) Status: Chronic Plan: Likely pre-renal, may have progressed to ATN. Creatinine stable at 1.41 and Na. at 144 K low at 3.0 replacement given Continues to have good urinary output Avoid nephrotoxins. IVF 1/2 NS at 42ml/hr , can stop if tolerating feeding. Patient was seen by me same day, on 12/06/17, agree with above. (2) Respiratory failure ICD Codes: J96.90 - Respiratory failure, unspecified, unspecified whether with hypoxia or hypercapnia Plan: Resting now On F1O2 at 30% via trach (3) Non-ischemic cardiomyopathy ICD Codes: I42.8 - Other cardiomyopathies Status: Chronic Plan: Lasix on hold On metoprolol (4) Paroxysmal atrial fibrillation ICD Codes: I48.0 - Paroxysmal atrial fibrillation Status: Acute Plan: rate controlled metoprolol and Cardizem On Eliquis for anticoagulation (5) Hypokalemia ICD Codes: E87.6 - Hypokalemia (6) Seizure ICD Codes: R56.9 - Unspecified convulsions Plan: continue Topamax (7) Hypernatremia ICD Codes: E87.0 - Hyperosmolality and hypernatremia Plan: IVF to 1/4NS (Rajan Hoyt MD) Petra Banks Dec 06, 2017 11:49 Rajan Hoyt MD Dec 09, 2017 16:19
[2017-12-06] MEDS ORDERED: ceFAZolin INJ 1,000 MG VIAL IV ONE (12:00)
[2017-12-06] MEDS ORDERED: LIDOCAINE HCL 1% PF 5 ML SYRINGE OTHER ONE (12:00)
[2017-12-06] MEDS ORDERED: PROPOFOL 200 MG/20 ML AMP IV ONE (12:00)
[2017-12-06] MEDS ORDERED: SODIUM CHLORIDE 0.9% 20 ML VIAL IV ONE (12:00)
--- NOTE | 2017-12-06 12:57 | GIPROC ---
[facility] [address] [facility]. [facility], [id number] EGD PROCEDURE REPORT EXAM DATE: 12/06/2017 PATIENT NAME: Abhishek Bruno MR #: [id number] BIRTHDATE: 1960 ATTENDING: Renata Matthew MD ORDER #: [id number] MORTAR CARRIER: Elvi Lazar and Domingo Cotto STATUS: inpatient INDICATIONS: The patient is a 57 yr old male here for an EGD due to dysphagia PROCEDURE PERFORMED: EGD, diagnostic MEDICATIONS: None and Per Anesthesia. TOPICAL ANESTHETIC: CONSENT: The patient understands the risks and benefits of the procedure and understands that these risks include, but are not limited to: sedation, allergic reaction, infection, perforation and/or bleeding. Alternative means of evaluation and treatment include, among others: physical exam, x-rays, and/or surgical intervention. The patient elects to proceed with this endoscopic procedure. medical equipment was checked for proper function. Hand hygiene and appropriate measures for infection prevention was taken. After the risks, benefits and alternatives of the procedure were thoroughly explained, Informed consent was verified, confirmed and timeout was successfully executed by the treatment team. The patient was anesthetized with topical anesthesia and the Pentax [id number] endoscope was introduced through the mouth and advanced to the second portion of the duodenum. Retroflexed views revealed no abnormalities The gastroscope was then slowly withdrawn and removed. ESOPHAGUS: The mucosa of the esophagus appeared normal. STOMACH: There was moderate gastritis in the gastric antrum. Unable to place peg. Unable to transiluminate or find a window to place peg. DUODENUM: The duodenal mucosa appeared normal in the bulb and second portion of the duodenum. ADVERSE EVENTS: There were no complications. IMPRESSIONS: 1. The esophagus appeared normal 2. There was gastritis in the gastric antrum 3. Normal duodenal mucosa in the bulb and second portion of the duodenum 4. Retroflexed views revealed no abnormalities RECOMMENDATIONS: 1. Anti-reflux regimen 2. Continue PPI 3. IR consulted to place peg. PATIENT CONDITION: stable DISPOSITION: Inpatient REPEAT EXAM: Return as needed for EGD Renata Matthew MD eSigned: Renata Matthew MD 12/06/2017 12:57 PM cc: PATIENT NAME: Abhishek Bruno MR#: [id number]
[2017-12-06 14:15] LABS: INTERNATIONAL NORMALIZED RATIO 1.2 RATIO; PROTHROMBIN TIME - PATIENT 12.4 SEC (9.8-11.6)
[2017-12-06] MEDS ORDERED: MIDAZOLAM HCL 2 MG/2 ML VIAL ONE (14:52)
[2017-12-06] MEDS ORDERED: fentaNYL CITRATE 250 MCG/5 ML AMP ONE (14:53)
[2017-12-06] MEDS ORDERED: ceFAZolin 2 GM PREMIX 50 ML ONE (14:57)
--- NOTE | 2017-12-06 15:35 | PD.RAD ---
Post Procedure Progress Note Pre Procedure Diagnosis: (1) Morbid obesity (2) Respiratory failure Post Procedure Diagnosis: (1) Morbid obesity (2) Respiratory failure Procedure Date: Dec 06, 2017 Supervising Radiologist: Marco Booker Proceduralist/Assist: Michael Jacobson, RT(R), Mauricio Meyer RT(R) Anesthesia: Conscious Sedation Plan of Activity Patient to Unit: Critical Care Patient Condition: Good See PACS Report for procedural detail/treatment Marco Booker MD Dec 06, 2017 15:35
[2017-12-06] MEDS ORDERED: IOHEXOL 350 MG/ML 50 ML BTL (for RAD DIAG) G-TUBE ONE (15:47)
--- NOTE | 2017-12-06 16:03 | RADRPT ---
EXAM DATE/TIME: 12/06/2017 14:50 [place] COMPARISON: No previous studies available for comparison. INDICATIONS : Patient presents with respiratory failure in need of gastrostomy tube placement for nutrition. MEDICAL HISTORY : HTN Atrial fibrillation Chronic systolic congestive heart failure History of respiratory failure requiring intubation and tracheostomy tube placement. Removed on Jul. History of cardiogenic shock with PEA cardiac arrest in last admission June 14, 2017 Chronic kidney disease stage III Seizure disorder Thrombocytopenia. Was followed up by apiarist and had bone marrow biopsy on July 24, 2017. Morbid obesity Obstructive sleep apnea. Was told he needs C Pap but has not been able to arrange it. SURGICAL HISTORY : Coronary angiogram. Tracheostomy ENCOUNTER: Initial ACUITY: 3 weeks PAIN SCORE: Nonresponsive. LOCATION: N/A FLUORO TIME: 2.7 minutes IMAGE SERIES: 0 SEDATION TIME: 25 minutes CONTRAST: 20 cc Omnipaque (iohexol) 350 MEDICATION(S): 1.) 2.5 mg midazolam (Versed) IV 2.) 150 mcg Fentanyl (Sublimaze) IV 3.) 1 mg glucagon (Gluca-Gen) IV 4.) 2 g ANCEF IV DEVICE(S): 1.) 18 Fr gastrostomy tube PROCEDURE : 1. Fluoroscopically guided gastrostomy tube placement. 2. Conscious sedation with continuous EKG and oximetry monitoring. The risks, benefits and alternatives to the procedure were explained and verbal and written consent w as obtained. The site was prepped in sterile fashion. Full sterile technique was used, including ca p, mask, sterile gloves and gown and a large sterile sheet. Hand hygiene and 2% chlorhexidine and/or betadine/alcohol prep was utilized per protocol for cutaneous antisepsis. The skin and subcutaneous tissues were infiltrated with local anesthetic solution. Fluoroscopy was used to angela the position of the liver.. The stomach was insufflated with room air. Three percutaneous fasteners were placed to secure the anterior gastric wall. A small incision was made between the fasteners. The stomach was accessed with an 18 gauge needle. A n 0.035 wire was advanced into the small bowel. The tract was dilated. The gastrostomy tube was int roduced through a peel-away sheath. The position was confirmed with an injection of contrast. Conscious sedation was performed with the prescribed dosages and duration as above in the presence of an independent trained radiology nurse to assist in the monitoring of the patient. EKG and oximetry remained stable throughout the procedure. The patient tolerated the procedure well and there were n o complications. The patient was sent to post anesthesia recovery in stable condition. CONCLUSION: Uncomplicated gastrostomy tube placement as above. Marco Booker MD on December 06, 2017 at 16:00 Board Certified Radiologist. This report was verified electronically.
[2017-12-06] MEDS: ATORVASTATIN 80 MG TAB PO SCH (21:55)
[2017-12-07] VITALS (18 sets, daily range): BP systolic 104–131; BP diastolic 68–86; PULSE 60–95; RESP 15–24; TEMP 98–99.6; O2SAT 98–100
[2017-12-07] MEDS: CHLORHEXIDINE GLUCONATE 2 % 1 PACK (2 CLOTHS) TOP SCH ×2 (04:00→21:58)
[2017-12-07 05:12] LABS: ALBUMIN 2.3 GM/DL (3.4-5.0); BICARBONATE 13.9 MEQ/L (21.0-32.0); CALCIUM 8.3 MG/DL (8.5-10.1); CREATININE 1.51 MG/DL (0.60-1.30); PHOSPHORUS 3.1 MG/DL (2.5-4.9)
[2017-12-07] MEDS: DILTIAZEM IV SCH (05:16)
[2017-12-07] MEDS: SODIUM CHLORIDE 0.9% IV SCH (05:16)
[2017-12-07] MEDS: ARTIFICIAL TEARS OPTH SOLN 15 ML BTL EACH EYE SCH ×3 (05:17→21:57)
[2017-12-07] MEDS: INSULIN NovoLIN REGULAR SUPPLEMENTAL SCALE SQ SCH ×4 (05:32→17:50)
[2017-12-07] MEDS ORDERED: POTASSIUM CHLORIDE 25 MEQ EFFERVESCENT TAB PO ONE (07:15)
--- NOTE | 2017-12-07 07:20 | HHI.CCPN ---
Subjective Remarks/Hospital Course 57 y/o man with chronic nonischemic cardiomyopathy, EF 20% presents two days ago to ED with a-fib and RVR. Morbid obesity and chronic obesity hypoventilation syndrome. Developed bradycardia requiring atropine this morning , rushed to [facility] where on arrival he is obtunded with agonal respirations. Rate acceptable, depth shallow. Required bag mask ventilation, dopamine and levophed. Unable to intubate despite optic endoscope; proceeded to tracheostomy. Sats maintained > 80% throughout. Initial pH 7.14. 11/17: S/P resuscitation for probable hypercapneic respiratory arrest with bradycardia, hypotension. Has required mechanical ventilation. Perfusion improved after inotropic support instituted, now tapering. Elevated LFTs may reflect period of inadequate perfusion. 11/18: Doing well on T-piece. Resolving shock liver, DENNYS. Should go home with trach. 11/19: Fatigues on CPAP/T-piece. Will need LTAC. 11/20: stable. still volume overloaded by clinical exam. will need LTAC placement. SUBJECTIVE: 11/21: Tmax 1.3. Currently 99.9. Remains on PRvC ventilation. NG tube is been resumed. Remains on furosemide 40 mg IV 3 times daily. Heart rate slightly tachycardic 11/22: Pulse intermittently 150. Consistently 120s. Will add PO cardizem and attempt to get better rate control - permanent a-fib. 11/23: Heart rate control improved on po cardizem. Slightly over-diuresed, will back off on lasix. 11/24: Persistent intractable coughing. Low grade fever. Deteriorating renal function. CXR with pulmonary venous congestion but no consolidation or infiltrate. 11/25: Unable to wean ventilator. Hold lasix today, review pending renal function. 11/26: No events over the night. Patient doing well, sat in chair, now back in bed. Good spirits, follows commands. Afebrile. I/O 2444/675. 11/27: No events throughout the night. This AM, patient is resting comfortable. Afebrile, I/O 2537/1350. 11/28: Patient did well through the night. This AM, awake, doing great on PS 5/ 5. Tmax 99.3, I/O 1335/950. 11/29: No events over the night. Patient awake, on CPAP. Tolerated T piece for 8 hours yesterday. Lower urine output over the last few hours. 11/30: No events. Did well on T piece yesterday. Afebrile, I/O . Awake. 12/01: Patient resting comfortable, easily arousable. Afebrile. 12/02: Renal function improving, tolerating diuresis. Heart rate control acceptable. 12/03: Lying in bed. No acute distress follows commands. Renal function stable. UO 1.5 L in 24 hours 12/04: Awake alert, tolerating CPAP. Pulled his NG tube yesterday night, now replaced. Will consult GI for PEG placement. 12/05: Getting ahead on free water. Continue weaning efforts. Remains cooperative, alert. 12/06: Fluid balance about right. Progressing slowly with mobility to stretcher chair and vent weaning. 12/07: Replace electrolytes. Restart TFs when OK with GI. Objective Vital Signs Date Time Temp Pulse Resp B/P (MAP) Pulse Ox O2 Delivery O2 Flow Rate FiO2 12/07/17 06:00 72 12/07/17 05:16 129/72 12/07/17 04:53 100 35 12/07/17 04:00 98.9 15 12/06/17 19:29 Ventilator Intake and Output 12/07/17 12/07/17 12/08/17 08:00 16:00 00:00 Intake Total 295 ml Output Total 850 ml Balance -555 ml Result Diagram: 12/05/17 0447 12/07/17 0426 Other Results Microbiology Date/Time Source Procedure Growth Status 12/04/17 12:50 Urine Catheterized Urine Urine Culture - Final NO GROWTH IN 48 HOURS. Complete Imaging Last Impressions Chest X-Ray 11/19/17 0000 Signed Impressions: Service Date/Time: Sunday, November 19, 2017 11:33 - CONCLUSION: Improved basilar opacities essentially cleared on the right and minimal residual on the left. Efrain Dimas MD Abdomen X-Ray 11/16/17 0000 Signed Impressions: Service Date/Time: Thursday, November 16, 2017 09:53 - CONCLUSION: Nasogastric tube tip in the region of the distal stomach. Jose Bruno MD Objective Remarks General - middle age gentleman, awake, in no distress, on vent via trach HEENT - pupils equal, reactive, neck soft, no JVD, + trach (XLT) - site clean, dry. NGT in place CV - irregular heart sounds, no murmurs. No JVD. Chest - clear breath sounds b/l, no wheezes, good air entry Abdomen - soft, obese, non-tender, BS hyperactive Extremities - warm, 1+ edema, + peripheral pulses Neuro - awake, alert, follows commands, moves all extremities, nods head to questions. A/P Problem List: (1) Acute on chronic respiratory failure with hypoxemia ICD Code: J96.21 - Acute and chronic respiratory failure with hypoxia (2) Symptomatic bradycardia ICD Code: R00.1 - Bradycardia, unspecified Status: Acute (3) Morbid obesity with BMI of 50.0-59.9, adult ICD Code: E66.01 - Morbid (severe) obesity due to excess calories; Z68.43 - Body mass index (BMI) 50-59.9 , adult Status: Acute (4) Atrial fibrillation ICD Code: I48.91 - Unspecified atrial fibrillation Status: Chronic (5) CKD (chronic kidney disease), stage III ICD Code: N18.3 - Chronic kidney disease, stage 3 (moderate) Status: Chronic (6) Chronic systolic CHF (congestive heart failure) ICD Code: I50.22 - Chronic systolic (congestive) heart failure Status: Chronic Assessment and Plan ASSESSMENT: 1. Acute hypercapneic and hypoxic respiratory failure s/p emergent trach - still tolerating T piece during daytime and PS at night 2. Afib/flutter with RVR - rate controlled with cardizem and lopressor 3. Mixed gram negative bronchitis vs pneumonia - afebrile, minimal leukocytosis 4. DENNYS on CKD - slowly improving, good urine output, followed by nephrology 5. Hypokalemia 6. NICM with EF 20% 7. Shock liver, likely secondary to hypoperfusion - improving 8. H/o seizure d/o 9. H/o cardiac arrest 10. DM, Type 2 11. Possible CHINO/OHS 12. Enterococcus in urine 13. Hypernatremia - better, on free water PLAN: 1. T piece during daytime as tolerated and PS at night 2. Ventilator bundle and bronchodilators 3. Ceftriaxone, stopped, completed a 7d course. 4. Electrolyte replacement per protocol 5. OOB to chair, as tolerated 6. On metoprolol and Cardizem. 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 On apixaban 7. D/C amiodarone. 8. Will need FABRICE/ARB and spironolactone once renal function improves 9. Continue statin 10. On topiramate for underlying seizure disorder 11. Glycemic control with insulin sliding scale 12. TF with nepro and free water 13. GI prophylaxis 14. DVT prophylaxis addressed 15. Consult GI for peg placement -> placed Overall impression: Would benefit from LTAC placement. Will leave #8 XLT as permanent trach. Follow nutritional values. Continue to mobilize. Sohail Ma MD Dec 07, 2017 07:20
[2017-12-07] MEDS: FAMOTIDINE 20 MG TAB NG SCH ×2 (08:14→21:56)
[2017-12-07] MEDS: METOPROLOL TARTRATE 100 MG TAB PO SCH ×2 (08:15→21:57)
[2017-12-07] MEDS: TOPIRAMATE 200 MG TAB PO SCH (08:15)
[2017-12-07] MEDS: CHLORHEXIDINE 0.12% (ORAL KIT) 15 ML CUP MT SCH ×2 (08:15→20:00)
[2017-12-07] MEDS: SODIUM CHLORIDE 0.9% FLUSH 10 ML FLUSH IV FLUSH SCH ×2 (08:15→21:55)
[2017-12-07] MEDS: DOCUSATE SODIUM 50 MG/SENNA 8.6 MG TAB PO SCH ×2 (08:15→21:00)
[2017-12-07] MEDS: POLYETHYLENE GLYCOL 17 GM PKG NG SCH ×2 (08:15→21:00)
[2017-12-07] MEDS ORDERED: POTASSIUM CHLORIDE 25 MEQ EFFERVESCENT TAB PO SCH (09:00)
[2017-12-07] MEDS: SODIUM CHLORIDE 23.4% INJ 38.5 MEQ in WATER STERILE FOR INJ 1,000 ML IV SCH (10:00)
[2017-12-07] MEDS: POTASSIUM CHLORIDE 20 MEQ PWD PACKET NG SCH ×2 (10:22→21:56)
[2017-12-07] MEDS: DILTIAZEM HCL 60 MG TAB PO SCH ×2 (12:02→17:50)
[2017-12-07] MEDS: oxyCODONE HCL ORAL CONC 5 MG/0.25 ML SYRINGE NG PRN (12:03)
--- NOTE | 2017-12-07 14:23 | HHI.NPPN ---
Subjective General Problems: Anemia, Edema, Heart Disease, Obesity Renal Failure: Chronic, Acute, Stage IV History of Present Illness Patient is a 57-year-old -[place] male with past medical history of seizure disorder, chronic systolic congestive heart failure, hx of respiratory failure requiring tracheostomy placement, hx of cardiogenic shock with PEA arrest, chronic kidney disease, hypertension, diabetes mellitus, atrial fibrillation who was admitted with increased swelling and afib RVR. I was called to see the patient for elevated BUN and creatinine. The patient has a known history of chronic kidney disease and it seems like his baseline creatinine has been in the range of 1.4 to 2.0 and it has increased now at 2.83. Chest Xray noted with pulmonary edema. On ventilator via trach at 40 % FiO2 and weaning trial this morning. Was receiving lasix 40 mg daily which is on hold for elevating renal indices and patient is receiving IVF NS at 100 ml per hour for 1 bag. The patient is not able to give any history because he has a tracheostomy but he is responding to verbal commands and he seems to be fully awake in good spirits. Additional Remarks On the vent. via Trach resting comfortably, not in distress. Objective Data Data 12/07/17 12/08/17 19:00 07:00 Intake Total 62 ml Balance 62 ml IV Total 62 ml Vital Signs Date Time Temp Pulse Resp B/P (MAP) Pulse Ox O2 Delivery O2 Flow Rate FiO2 12/07/17 12:18 35 12/07/17 12:18 100 35 12/07/17 12:10 35 12/07/17 12:00 98.0 89 16 113/81 (92) 100 12/07/17 12:00 89 12/07/17 10:00 83 12/07/17 08:02 100 35 12/07/17 08:00 98.8 72 18 131/71 (91) 99 12/07/17 08:00 72 12/07/17 08:00 35 12/07/17 06:00 72 12/07/17 05:16 83 129/72 12/07/17 04:53 100 35 12/07/17 04:00 35 12/07/17 04:00 98.9 60 15 123/86 (98) 98 12/07/17 04:00 68 12/07/17 02:14 98 35 12/07/17 02:00 70 12/07/17 02:00 70 12/07/17 00:00 99.1 60 20 104/69 (81) 99 12/07/17 00:00 60 12/07/17 00:00 35 12/06/17 22:42 100 35 12/06/17 22:18 84 130/76 12/06/17 22:00 94 12/06/17 20:00 82 12/06/17 20:00 99.0 77 20 142/67 (92) 99 12/06/17 20:00 35 12/06/17 19:29 100 Ventilator 35 12/06/17 19:29 100 35 12/06/17 18:29 88 118/71 12/06/17 18:00 93 12/06/17 16:28 99 40 12/06/17 16:05 100 100 12/06/17 16:00 30 12/06/17 16:00 104 12/06/17 16:00 98.1 104 23 127/73 (91) 99 -: 12/05/17 0447 12/07/17 0426 Physical Exam General Appearance: Obese Eyes Eye Exam: Pupils Equal Pulmonary Resp Exam: No Distress, Decreased Bases Cardiology CV Exam: Irregular Gastrointestinal/Abdomen GI Exam: Non-Tender, Bowel Sounds Present Genitourinary Exam: Flank Non-Tender Integumentary Skin Exam: Clear, Warm Extremeties Extremities Exam: Trace Edema Neurologic Neuro Exam: Alert, Awake Psychiatric Psych Exam: Appropriate Responses Assessment/Plan Problem List: (1) CKD (chronic kidney disease), stage III ICD Codes: N18.3 - Chronic kidney disease, stage 3 (moderate) Status: Chronic Plan: Likely pre-renal, Creatinine at 1.5 and Na. at 147 K low at 2.8 replacement given Continues to have good urinary output Avoid nephrotoxins. IVF 1/4 NS at 42ml/hr , can stop if tolerating feeding. (2) Respiratory failure ICD Codes: J96.90 - Respiratory failure, unspecified, unspecified whether with hypoxia or hypercapnia Plan: Resting now (3) Non-ischemic cardiomyopathy ICD Codes: I42.8 - Other cardiomyopathies Status: Chronic Plan: Lasix on hold On metoprolol (4) Paroxysmal atrial fibrillation ICD Codes: I48.0 - Paroxysmal atrial fibrillation Status: Acute Plan: rate controlled metoprolol and Cardizem On Eliquis for anticoagulation (5) Hypokalemia ICD Codes: E87.6 - Hypokalemia (6) Seizure ICD Codes: R56.9 - Unspecified convulsions Plan: continue Topamax (7) Hypernatremia ICD Codes: E87.0 - Hyperosmolality and hypernatremia Plan: IVF on Dionne Gregory MD Dec 07, 2017 14:23
[2017-12-07] MEDS: ATORVASTATIN 80 MG TAB PO SCH (21:57)
[2017-12-08] VITALS (18 sets, daily range): BP systolic 106–141; BP diastolic 66–78; PULSE 66–102; RESP 17–25; TEMP 98.7–99.5; O2SAT 100
[2017-12-08] MEDS: SODIUM CHLORIDE 23.4% INJ 38.5 MEQ in WATER STERILE FOR INJ 1,000 ML IV SCH ×3 (01:23→21:05)
[2017-12-08] MEDS: DILTIAZEM HCL 60 MG TAB PO SCH ×4 (01:23→19:04)
[2017-12-08 05:32] LABS: ALBUMIN 2.4 GM/DL (3.4-5.0); BICARBONATE 14.8 MEQ/L (21.0-32.0); CALCIUM 8.8 MG/DL (8.5-10.1); CREATININE 1.7 MG/DL (0.60-1.30); PHOSPHORUS 2.5 MG/DL (2.5-4.9)
[2017-12-08] MEDS: INSULIN NovoLIN REGULAR SUPPLEMENTAL SCALE SQ SCH ×4 (06:00→18:00)
[2017-12-08] MEDS: ARTIFICIAL TEARS OPTH SOLN 15 ML BTL EACH EYE SCH ×2 (06:00→14:00)
[2017-12-08] MEDS: METOPROLOL TARTRATE 100 MG TAB PO SCH ×2 (07:56→20:28)
[2017-12-08] MEDS: TOPIRAMATE 200 MG TAB PO SCH (07:56)
[2017-12-08] MEDS: FAMOTIDINE 20 MG TAB NG SCH ×2 (07:56→20:28)
[2017-12-08] MEDS: CHLORHEXIDINE 0.12% (ORAL KIT) 15 ML CUP MT SCH ×2 (07:56→20:28)
[2017-12-08] MEDS: POLYETHYLENE GLYCOL 17 GM PKG NG SCH ×2 (07:59→20:27)
[2017-12-08] MEDS: POTASSIUM CHLORIDE 20 MEQ PWD PACKET NG SCH ×2 (07:59→20:27)
[2017-12-08] MEDS: DOCUSATE SODIUM 50 MG/SENNA 8.6 MG TAB PO SCH ×2 (07:59→20:27)
[2017-12-08] MEDS: SODIUM CHLORIDE 0.9% FLUSH 10 ML FLUSH IV FLUSH SCH ×2 (07:59→20:28)
--- NOTE | 2017-12-08 14:04 | HHI.CCPN ---
Subjective Remarks/Hospital Course 57 y/o man with chronic nonischemic cardiomyopathy, EF 20% presents two days ago to ED with a-fib and RVR. Morbid obesity and chronic obesity hypoventilation syndrome. Developed bradycardia requiring atropine this morning , rushed to [facility] where on arrival he is obtunded with agonal respirations. Rate acceptable, depth shallow. Required bag mask ventilation, dopamine and levophed. Unable to intubate despite optic endoscope; proceeded to tracheostomy. Sats maintained > 80% throughout. Initial pH 7.14. 11/17: S/P resuscitation for probable hypercapneic respiratory arrest with bradycardia, hypotension. Has required mechanical ventilation. Perfusion improved after inotropic support instituted, now tapering. Elevated LFTs may reflect period of inadequate perfusion. 11/18: Doing well on T-piece. Resolving shock liver, DENNYS. Should go home with trach. 11/19: Fatigues on CPAP/T-piece. Will need LTAC. 11/20: stable. still volume overloaded by clinical exam. will need LTAC placement. SUBJECTIVE: 11/21: Tmax 1.3. Currently 99.9. Remains on PRvC ventilation. NG tube is been resumed. Remains on furosemide 40 mg IV 3 times daily. Heart rate slightly tachycardic 11/22: Pulse intermittently 150. Consistently 120s. Will add PO cardizem and attempt to get better rate control - permanent a-fib. 11/23: Heart rate control improved on po cardizem. Slightly over-diuresed, will back off on lasix. 11/24: Persistent intractable coughing. Low grade fever. Deteriorating renal function. CXR with pulmonary venous congestion but no consolidation or infiltrate. 11/25: Unable to wean ventilator. Hold lasix today, review pending renal function. 11/26: No events over the night. Patient doing well, sat in chair, now back in bed. Good spirits, follows commands. Afebrile. I/O 2444/675. 11/27: No events throughout the night. This AM, patient is resting comfortable. Afebrile, I/O 2537/1350. 11/28: Patient did well through the night. This AM, awake, doing great on PS 5/ 5. Tmax 99.3, I/O 1335/950. 11/29: No events over the night. Patient awake, on CPAP. Tolerated T piece for 8 hours yesterday. Lower urine output over the last few hours. 11/30: No events. Did well on T piece yesterday. Afebrile, I/O . Awake. 12/01: Patient resting comfortable, easily arousable. Afebrile. 12/02: Renal function improving, tolerating diuresis. Heart rate control acceptable. 12/03: Lying in bed. No acute distress follows commands. Renal function stable. UO 1.5 L in 24 hours 12/04: Awake alert, tolerating CPAP. Pulled his NG tube yesterday night, now replaced. Will consult GI for PEG placement. 12/05: Getting ahead on free water. Continue weaning efforts. Remains cooperative, alert. 12/06: Fluid balance about right. Progressing slowly with mobility to stretcher chair and vent weaning. 12/07: Replace electrolytes. Restart TFs when OK with GI. 12/08: Continuing weaning trials - still ventilator dependent. Objective Vital Signs Date Time Temp Pulse Resp B/P (MAP) Pulse Ox O2 Delivery O2 Flow Rate FiO2 12/08/17 12:00 99.5 96 25 109/77 (88) 100 12/08/17 12:00 35 12/06/17 19:29 Ventilator Intake and Output 12/08/17 12/08/17 12/09/17 08:00 16:00 00:00 Intake Total 700 ml Output Total 850 ml Balance -150 ml Result Diagram: 12/05/17 0447 12/08/17 0443 Imaging Last Impressions Chest X-Ray 11/19/17 0000 Signed Impressions: Service Date/Time: Sunday, November 19, 2017 11:33 - CONCLUSION: Improved basilar opacities essentially cleared on the right and minimal residual on the left. Efrain Dimas MD Abdomen X-Ray 11/16/17 0000 Signed Impressions: Service Date/Time: Thursday, November 16, 2017 09:53 - CONCLUSION: Nasogastric tube tip in the region of the distal stomach. Jose Bruno MD Objective Remarks General - middle age gentleman, awake, in no distress, on vent via trach HEENT - pupils equal, reactive, neck soft, no JVD, + trach (XLT) - site clean, dry. CV - irregular heart sounds, no murmurs. No JVD. Chest - clear breath sounds b/l, no wheezes, good air entry Abdomen - soft, obese, non-tender, BS hyperactive Extremities - warm, 1+ edema, + peripheral pulses Neuro - awake, alert, follows commands, moves all extremities, nods head to questions. A/P Problem List: (1) Acute on chronic respiratory failure with hypoxemia ICD Code: J96.21 - Acute and chronic respiratory failure with hypoxia (2) Symptomatic bradycardia ICD Code: R00.1 - Bradycardia, unspecified Status: Acute (3) Morbid obesity with BMI of 50.0-59.9, adult ICD Code: E66.01 - Morbid (severe) obesity due to excess calories; Z68.43 - Body mass index (BMI) 50-59.9 , adult Status: Acute (4) Atrial fibrillation ICD Code: I48.91 - Unspecified atrial fibrillation Status: Chronic (5) CKD (chronic kidney disease), stage III ICD Code: N18.3 - Chronic kidney disease, stage 3 (moderate) Status: Chronic (6) Chronic systolic CHF (congestive heart failure) ICD Code: I50.22 - Chronic systolic (congestive) heart failure Status: Chronic Assessment and Plan ASSESSMENT: 1. Acute hypercapneic and hypoxic respiratory failure s/p emergent trach - still tolerating T piece during daytime and PS at night 2. Afib/flutter with RVR - rate controlled with cardizem and lopressor 3. Mixed gram negative bronchitis vs pneumonia - afebrile, minimal leukocytosis 4. DENNYS on CKD - slowly improving, good urine output, followed by nephrology 5. Hypokalemia 6. NICM with EF 20% 7. Shock liver, likely secondary to hypoperfusion - improving 8. H/o seizure d/o 9. H/o cardiac arrest 10. DM, Type 2 11. Possible CHINO/OHS 12. Enterococcus in urine 13. Hypernatremia - better, on free water PLAN: 1. T piece during daytime as tolerated and PS at night 2. Ventilator bundle and bronchodilators 3. Ceftriaxone, stopped, completed a 7d course. 4. Electrolyte replacement per protocol 5. OOB to chair, as tolerated 6. On metoprolol and Cardizem. care home may need to stop Cardizem due to compounding negative inotropy effect. On apixaban 7. D/C amiodarone. 8. Will need FABRICE/ARB and spironolactone once renal function improves 9. Continue statin 10. On topiramate for underlying seizure disorder 11. Glycemic control with insulin sliding scale 12. TF with nepro and free water 13. GI prophylaxis 14. DVT prophylaxis addressed 15. Consult GI for peg placement -> placed Overall impression: Would benefit from LTAC placement. Will leave #8 XLT as permanent trach. Follow nutritional values. Continue to mobilize to stretcher chair.. Sohail Ma MD Dec 08, 2017 14:04
[2017-12-08] MEDS: oxyCODONE HCL ORAL CONC 5 MG/0.25 ML SYRINGE NG PRN (15:14)
[2017-12-08] MEDS: ATORVASTATIN 80 MG TAB PO SCH (20:27)
[2017-12-09] VITALS (18 sets, daily range): BP systolic 97–131; BP diastolic 59–76; PULSE 72–104; RESP 20–29; TEMP 98.4–99.2; O2SAT 98–100
[2017-12-09] MEDS: ARTIFICIAL TEARS OPTH SOLN 15 ML BTL EACH EYE SCH ×4 (00:16→20:37)
[2017-12-09] MEDS: DILTIAZEM HCL 60 MG TAB PO SCH ×4 (00:16→18:40)
[2017-12-09] MEDS: ONDANSETRON HCL 4 MG/2 ML VIAL IV PUSH PRN (03:45)
[2017-12-09] MEDS: CHLORHEXIDINE GLUCONATE 2 % 1 PACK (2 CLOTHS) TOP SCH (04:00)
[2017-12-09] MEDS: INSULIN NovoLIN REGULAR SUPPLEMENTAL SCALE SQ SCH ×4 (06:00→18:00)
[2017-12-09] MEDS: CHLORHEXIDINE 0.12% (ORAL KIT) 15 ML CUP MT SCH ×2 (08:00→20:37)
[2017-12-09] MEDS: DOCUSATE SODIUM 50 MG/SENNA 8.6 MG TAB PO SCH ×2 (08:38→20:37)
[2017-12-09] MEDS: POLYETHYLENE GLYCOL 17 GM PKG NG SCH ×2 (08:38→20:37)
[2017-12-09] MEDS: SODIUM CHLORIDE 0.9% FLUSH 10 ML FLUSH IV FLUSH SCH ×2 (09:00→20:37)
[2017-12-09] MEDS: SODIUM CHLORIDE 23.4% INJ 38.5 MEQ in WATER STERILE FOR INJ 1,000 ML IV SCH (10:00)
[2017-12-09] MEDS: METOPROLOL TARTRATE 100 MG TAB PO SCH ×2 (10:34→20:36)
[2017-12-09] MEDS: FAMOTIDINE 20 MG TAB NG SCH ×2 (10:34→20:36)
[2017-12-09] MEDS: oxyCODONE HCL ORAL CONC 5 MG/0.25 ML SYRINGE NG PRN (10:35)
[2017-12-09] MEDS: POTASSIUM CHLORIDE 20 MEQ PWD PACKET NG SCH ×2 (10:35→20:37)
[2017-12-09] MEDS: TOPIRAMATE 200 MG TAB PO SCH (10:36)
--- NOTE | 2017-12-09 11:24 | HHI.CCPN ---
Subjective Remarks/Hospital Course 57 y/o man with chronic nonischemic cardiomyopathy, EF 20% presents two days ago to ED with a-fib and RVR. Morbid obesity and chronic obesity hypoventilation syndrome. Developed bradycardia requiring atropine this morning , rushed to [facility] where on arrival he is obtunded with agonal respirations. Rate acceptable, depth shallow. Required bag mask ventilation, dopamine and levophed. Unable to intubate despite optic endoscope; proceeded to tracheostomy. Sats maintained > 80% throughout. Initial pH 7.14. 11/17: S/P resuscitation for probable hypercapneic respiratory arrest with bradycardia, hypotension. Has required mechanical ventilation. Perfusion improved after inotropic support instituted, now tapering. Elevated LFTs may reflect period of inadequate perfusion. 11/18: Doing well on T-piece. Resolving shock liver, DENNYS. Should go home with trach. 11/19: Fatigues on CPAP/T-piece. Will need LTAC. 11/20: stable. still volume overloaded by clinical exam. will need LTAC placement. SUBJECTIVE: 11/21: Tmax 1.3. Currently 99.9. Remains on PRvC ventilation. NG tube is been resumed. Remains on furosemide 40 mg IV 3 times daily. Heart rate slightly tachycardic 11/22: Pulse intermittently 150. Consistently 120s. Will add PO cardizem and attempt to get better rate control - permanent a-fib. 11/23: Heart rate control improved on po cardizem. Slightly over-diuresed, will back off on lasix. 11/24: Persistent intractable coughing. Low grade fever. Deteriorating renal function. CXR with pulmonary venous congestion but no consolidation or infiltrate. 11/25: Unable to wean ventilator. Hold lasix today, review pending renal function. 11/26: No events over the night. Patient doing well, sat in chair, now back in bed. Good spirits, follows commands. Afebrile. I/O 2444/675. 11/27: No events throughout the night. This AM, patient is resting comfortable. Afebrile, I/O 2537/1350. 11/28: Patient did well through the night. This AM, awake, doing great on PS 5/ 5. Tmax 99.3, I/O 1335/950. 11/29: No events over the night. Patient awake, on CPAP. Tolerated T piece for 8 hours yesterday. Lower urine output over the last few hours. 11/30: No events. Did well on T piece yesterday. Afebrile, I/O . Awake. 12/01: Patient resting comfortable, easily arousable. Afebrile. 12/02: Renal function improving, tolerating diuresis. Heart rate control acceptable. 12/03: Lying in bed. No acute distress follows commands. Renal function stable. UO 1.5 L in 24 hours 12/04: Awake alert, tolerating CPAP. Pulled his NG tube yesterday night, now replaced. Will consult GI for PEG placement. 12/05: Getting ahead on free water. Continue weaning efforts. Remains cooperative, alert. 12/06: Fluid balance about right. Progressing slowly with mobility to stretcher chair and vent weaning. 12/07: Replace electrolytes. Restart TFs when OK with GI. 12/08: Continuing weaning trials - still ventilator dependent. 12/09: Continued vent weaning trials. Objective Vital Signs Date Time Temp Pulse Resp B/P (MAP) Pulse Ox O2 Delivery O2 Flow Rate FiO2 12/09/17 11:09 35 12/09/17 11:09 100 12/09/17 06:00 72 12/09/17 04:00 98.8 20 124/71 (88) 12/06/17 19:29 Ventilator Intake and Output 12/09/17 12/09/17 12/10/17 08:00 16:00 00:00 Intake Total 361 ml Output Total 750 ml Balance -389 ml Result Diagram: 12/05/17 0447 12/08/17 0443 Imaging Last Impressions Chest X-Ray 11/19/17 0000 Signed Impressions: Service Date/Time: Sunday, November 19, 2017 11:33 - CONCLUSION: Improved basilar opacities essentially cleared on the right and minimal residual on the left. Efrain Dimas MD Abdomen X-Ray 11/16/17 0000 Signed Impressions: Service Date/Time: Thursday, November 16, 2017 09:53 - CONCLUSION: Nasogastric tube tip in the region of the distal stomach. Jose Bruno MD Objective Remarks General - middle age gentleman, awake, in no distress, on vent via trach HEENT - pupils equal, reactive, neck soft, + trach (XLT) - site clean, dry. CV - irregular heart sounds, no murmurs. No JVD. Chest - clear breath sounds b/l, no wheezes, good air entry Abdomen - soft, obese, non-tender, BS active. Extremities - warm, 1+ edema, + peripheral pulses, well perfused. Neuro - awake, alert, follows commands, moves all extremities, nods head to questions, tracks with eyes. A/P Problem List: (1) Acute on chronic respiratory failure with hypoxemia ICD Code: J96.21 - Acute and chronic respiratory failure with hypoxia (2) Symptomatic bradycardia ICD Code: R00.1 - Bradycardia, unspecified Status: Acute (3) Morbid obesity with BMI of 50.0-59.9, adult ICD Code: E66.01 - Morbid (severe) obesity due to excess calories; Z68.43 - Body mass index (BMI) 50-59.9 , adult Status: Acute (4) Atrial fibrillation ICD Code: I48.91 - Unspecified atrial fibrillation Status: Chronic (5) CKD (chronic kidney disease), stage III ICD Code: N18.3 - Chronic kidney disease, stage 3 (moderate) Status: Chronic (6) Chronic systolic CHF (congestive heart failure) ICD Code: I50.22 - Chronic systolic (congestive) heart failure Status: Chronic Assessment and Plan ASSESSMENT: 1. Acute hypercapneic and hypoxic respiratory failure s/p emergent trach - still tolerating T piece during daytime and PS at night 2. Afib/flutter with RVR - rate controlled with cardizem and lopressor 3. Mixed gram negative bronchitis vs pneumonia - afebrile, minimal leukocytosis 4. DENNYS on CKD - slowly improving, good urine output, followed by nephrology 5. Hypokalemia 6. NICM with EF 20% 7. Shock liver, likely secondary to hypoperfusion - improving 8. H/o seizure d/o 9. H/o cardiac arrest 10. DM, Type 2 11. Possible CHINO/OHS 12. Enterococcus in urine 13. Hypernatremia - better, on free water PLAN: 1. T piece during daytime as tolerated and PS at night 2. Ventilator bundle and bronchodilators 3. Ceftriaxone, stopped, completed a 7d course. 4. Electrolyte replacement per protocol 5. OOB to chair, as tolerated 6. On metoprolol and Cardizem. 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 On apixaban 7. D/C amiodarone. 8. Will need FABRICE/ARB and spironolactone once renal function improves 9. Continue statin 10. On topiramate for underlying seizure disorder 11. Glycemic control with insulin sliding scale 12. TF with nepro and free water 13. GI prophylaxis 14. DVT prophylaxis addressed 15. Consult GI for peg placement -> placed Overall impression: Would benefit from LTAC placement. Will leave #8 XLT as permanent trach. Follow nutritional values. Continue to mobilize to [facility] chair. Sohail Ma MD Dec 09, 2017 11:24
--- NOTE | 2017-12-09 16:39 | HHI.NPPN ---
Subjective General Problems: Anemia, Edema, Heart Disease, Obesity Renal Failure: Chronic, Acute, Stage IV History of Present Illness Patient is a 57-year-old -Surinames[place] male with past medical history of seizure disorder, chronic systolic congestive heart failure, hx of respiratory failure requiring tracheostomy placement, hx of cardiogenic shock with PEA arrest, chronic kidney disease, hypertension, diabetes mellitus, atrial fibrillation who was admitted with increased swelling and afib RVR. I was called to see the patient for elevated BUN and creatinine. The patient has a known history of chronic kidney disease and it seems like his baseline creatinine has been in the range of 1.4 to 2.0 and it has increased now at 2.83. Chest Xray noted with pulmonary edema. On ventilator via trach at 40 % FiO2 and weaning trial this morning. Was receiving lasix 40 mg daily which is on hold for elevating renal indices and patient is receiving IVF NS at 100 ml per hour for 1 bag. The patient is not able to give any history because he has a tracheostomy but he is responding to verbal commands and he seems to be fully awake in good spirits. Additional Remarks On the vent. via Trach resting comfortably, no edema (Petra Banks) Objective Data Data Vital Signs Date Time Temp Pulse Resp B/P (MAP) Pulse Ox O2 Delivery O2 Flow Rate FiO2 12/09/17 15:12 98 35 12/09/17 14:00 96 12/09/17 12:00 35 12/09/17 12:00 104 12/09/17 12:00 98.7 104 22 112/75 (87) 100 12/09/17 11:09 35 12/09/17 11:09 100 35 12/09/17 10:00 94 12/09/17 08:00 98.4 87 21 97/76 (83) 100 12/09/17 08:00 87 12/09/17 08:00 35 12/09/17 07:18 100 35 12/09/17 06:00 72 12/09/17 04:00 98.8 102 20 124/71 (88) 100 12/09/17 04:00 35 12/09/17 04:00 104 12/09/17 03:48 98 35 12/09/17 02:00 92 12/09/17 00:00 35 12/09/17 00:00 89 12/09/17 00:00 99.0 96 21 131/75 (93) 100 12/08/17 23:58 100 35 12/08/17 22:00 78 12/08/17 20:33 100 35 12/08/17 20:00 99.1 87 17 106/74 (85) 100 12/08/17 20:00 35 12/08/17 20:00 97 12/08/17 18:00 101 (Petra Banks) -: 12/05/17 0447 12/08/17 0443 Physical Exam General Appearance: Obese (Petra Banks) Eyes Eye Exam: Pupils Equal (Petra Banks) Neck Neck Remarks trach (Petra BanksP) Pulmonary Resp Exam: No Distress, Decreased Bases (Petra BanksP) Cardiology CV Exam: Irregular (Petra BanksP) Gastrointestinal/Abdomen GI Exam: Non-Tender, Bowel Sounds Present (Petra BanksP) Genitourinary Exam: Flank Non-Tender (Petra BanksP) Integumentary Skin Exam: Clear, Warm (Petra BanksP) Extremeties Extremities Exam: Trace Edema (Petra BanksP) Neurologic Neuro Exam: Alert, Awake (Petra BanksP) Psychiatric Psych Exam: Appropriate Responses Psych Remarks Nods to commands (Petra BanksP) Assessment/Plan Problem List: (1) CKD (chronic kidney disease), stage III ICD Codes: N18.3 - Chronic kidney disease, stage 3 (moderate) Status: Chronic Plan: Likely pre-renal, may have progressed to ATN. Creatinine stable is stable Continues to have good urinary output Avoid nephrotoxins. labs in AM (2) Respiratory failure ICD Codes: J96.90 - Respiratory failure, unspecified, unspecified whether with hypoxia or hypercapnia Plan: Resting now On F1O2 at 30% via trach (3) Non-ischemic cardiomyopathy ICD Codes: I42.8 - Other cardiomyopathies Status: Chronic Plan: Lasix on hold On metoprolol (4) Paroxysmal atrial fibrillation ICD Codes: I48.0 - Paroxysmal atrial fibrillation Status: Acute Plan: rate controlled metoprolol and Cardizem On Eliquis for anticoagulation (5) Hypokalemia ICD Codes: E87.6 - Hypokalemia (6) Seizure ICD Codes: R56.9 - Unspecified convulsions Plan: continue Topamax (7) Hypernatremia ICD Codes: E87.0 - Hyperosmolality and hypernatremia Plan: IVF to 1/4NS (Petra Banks) Problem List: (1) CKD (chronic kidney disease), stage III ICD Codes: N18.3 - Chronic kidney disease, stage 3 (moderate) Status: Chronic Plan: Likely pre-renal, may have progressed to ATN. Creatinine stable is stable Continues to have good urinary output Avoid nephrotoxins. labs in AM Patient seen and examined, agree with above. Started on GT feeding, K is low, on replacement. (2) Respiratory failure ICD Codes: J96.90 - Respiratory failure, unspecified, unspecified whether with hypoxia or hypercapnia Plan: Resting now On F1O2 at 30% via trach (3) Non-ischemic cardiomyopathy ICD Codes: I42.8 - Other cardiomyopathies Status: Chronic Plan: Lasix on hold On metoprolol (4) Paroxysmal atrial fibrillation ICD Codes: I48.0 - Paroxysmal atrial fibrillation Status: Acute Plan: rate controlled metoprolol and Cardizem On Eliquis for anticoagulation (5) Hypokalemia ICD Codes: E87.6 - Hypokalemia (6) Seizure ICD Codes: R56.9 - Unspecified convulsions Plan: continue Topamax (7) Hypernatremia ICD Codes: E87.0 - Hyperosmolality and hypernatremia Plan: IVF to 1/4NS (Rajan Hoyt MD) Petra Banks Dec 09, 2017 16:39 Rajan Hoyt MD Dec 09, 2017 16:53
[2017-12-09] MEDS: ATORVASTATIN 80 MG TAB PO SCH (20:36)
[2017-12-09] MEDS: RESP: ALBUTEROL 2.5 MG/3 ML NEB (PRN) NEB (22:52)
[2017-12-10] VITALS (18 sets, daily range): BP systolic 95–108; BP diastolic 58–69; PULSE 68–113; RESP 15–23; TEMP 98.2–99; O2SAT 96–100
[2017-12-10] MEDS: oxyCODONE HCL ORAL CONC 5 MG/0.25 ML SYRINGE NG PRN ×3 (00:28→22:07)
[2017-12-10] MEDS: DILTIAZEM HCL 60 MG TAB PO SCH ×5 (00:28→23:59)
[2017-12-10] MEDS: CHLORHEXIDINE GLUCONATE 2 % 1 PACK (2 CLOTHS) TOP SCH (04:00)
[2017-12-10] MEDS: ARTIFICIAL TEARS OPTH SOLN 15 ML BTL EACH EYE SCH ×3 (05:51→22:00)
[2017-12-10] MEDS: INSULIN NovoLIN REGULAR SUPPLEMENTAL SCALE SQ SCH ×5 (06:00→23:59)
[2017-12-10] MEDS: CHLORHEXIDINE 0.12% (ORAL KIT) 15 ML CUP MT SCH ×2 (08:00→20:00)
[2017-12-10] MEDS: DOCUSATE SODIUM 50 MG/SENNA 8.6 MG TAB PO SCH ×2 (09:00→20:17)
[2017-12-10] MEDS: POTASSIUM CHLORIDE 20 MEQ PWD PACKET NG SCH ×2 (09:00→17:59)
[2017-12-10] MEDS: SODIUM CHLORIDE 0.9% FLUSH 10 ML FLUSH IV FLUSH SCH ×2 (09:00→20:20)
[2017-12-10] MEDS: POLYETHYLENE GLYCOL 17 GM PKG NG SCH ×2 (09:00→20:20)
[2017-12-10 09:04] LABS: BICARBONATE 15.1 MEQ/L (21.0-32.0); CALCIUM 8.9 MG/DL (8.5-10.1); CREATININE 1.78 MG/DL (0.60-1.30)
[2017-12-10] MEDS: METOPROLOL TARTRATE 100 MG TAB PO SCH ×2 (09:47→20:17)
[2017-12-10] MEDS: FAMOTIDINE 20 MG TAB NG SCH ×2 (09:47→20:17)
[2017-12-10] MEDS: MORPHINE SULFATE 2 MG/ML INJ IV PUSH PRN (09:48)
[2017-12-10] MEDS: TOPIRAMATE 200 MG TAB PO SCH (09:48)
--- NOTE | 2017-12-10 12:23 | HHI.CCPN ---
Subjective Remarks/Hospital Course 57 y/o man with chronic nonischemic cardiomyopathy, EF 20% presents two days ago to ED with a-fib and RVR. Morbid obesity and chronic obesity hypoventilation syndrome. Developed bradycardia requiring atropine this morning , rushed to [facility] where on arrival he is obtunded with agonal respirations. Rate acceptable, depth shallow. Required bag mask ventilation, dopamine and levophed. Unable to intubate despite optic endoscope; proceeded to tracheostomy. Sats maintained > 80% throughout. Initial pH 7.14. 11/17: S/P resuscitation for probable hypercapneic respiratory arrest with bradycardia, hypotension. Has required mechanical ventilation. Perfusion improved after inotropic support instituted, now tapering. Elevated LFTs may reflect period of inadequate perfusion. 11/18: Doing well on T-piece. Resolving shock liver, DENNYS. Should go home with trach. 11/19: Fatigues on CPAP/T-piece. Will need LTAC. 11/20: stable. still volume overloaded by clinical exam. will need LTAC placement. SUBJECTIVE: 11/21: Tmax 1.3. Currently 99.9. Remains on PRvC ventilation. NG tube is been resumed. Remains on furosemide 40 mg IV 3 times daily. Heart rate slightly tachycardic 11/22: Pulse intermittently 150. Consistently 120s. Will add PO cardizem and attempt to get better rate control - permanent a-fib. 11/23: Heart rate control improved on po cardizem. Slightly over-diuresed, will back off on lasix. 11/24: Persistent intractable coughing. Low grade fever. Deteriorating renal function. CXR with pulmonary venous congestion but no consolidation or infiltrate. 11/25: Unable to wean ventilator. Hold lasix today, review pending renal function. 11/26: No events over the night. Patient doing well, sat in chair, now back in bed. Good spirits, follows commands. Afebrile. I/O 2444/675. 11/27: No events throughout the night. This AM, patient is resting comfortable. Afebrile, I/O 2537/1350. 11/28: Patient did well through the night. This AM, awake, doing great on PS 5/ 5. Tmax 99.3, I/O 1335/950. 11/29: No events over the night. Patient awake, on CPAP. Tolerated T piece for 8 hours yesterday. Lower urine output over the last few hours. 11/30: No events. Did well on T piece yesterday. Afebrile, I/O . Awake. 12/01: Patient resting comfortable, easily arousable. Afebrile. 12/02: Renal function improving, tolerating diuresis. Heart rate control acceptable. 12/03: Lying in bed. No acute distress follows commands. Renal function stable. UO 1.5 L in 24 hours 12/04: Awake alert, tolerating CPAP. Pulled his NG tube yesterday night, now replaced. Will consult GI for PEG placement. 12/05: Getting ahead on free water. Continue weaning efforts. Remains cooperative, alert. 12/06: Fluid balance about right. Progressing slowly with mobility to stretcher chair and vent weaning. 12/07: Replace electrolytes. Restart TFs when OK with GI. 12/08: Continuing weaning trials - still ventilator dependent. 12/09: Continued vent weaning trials. 12/10: Continue weaning trials. Objective Vital Signs Date Time Temp Pulse Resp B/P (MAP) Pulse Ox O2 Delivery O2 Flow Rate FiO2 12/10/17 11:31 100 35 12/10/17 10:00 90 12/10/17 08:00 98.2 15 108/69 (82) 12/06/17 19:29 Ventilator Intake and Output 12/10/17 12/10/17 12/11/17 08:00 16:00 00:00 Intake Total 305 ml Output Total 1150 ml Balance -845 ml Result Diagram: 12/10/17 0821 Imaging Last Impressions Chest X-Ray 11/19/17 0000 Signed Impressions: Service Date/Time: Sunday, November 19, 2017 11:33 - CONCLUSION: Improved basilar opacities essentially cleared on the right and minimal residual on the left. Efrain Dimas MD Abdomen X-Ray 11/16/17 0000 Signed Impressions: Service Date/Time: Thursday, November 16, 2017 09:53 - CONCLUSION: Nasogastric tube tip in the region of the distal stomach. Jose Bruno MD Objective Remarks General - middle age gentleman, awake, in no distress, on vent via trach HEENT - pupils equal, reactive, neck soft, + trach (XLT) - site clean, dry. CV - irregular heart sounds, no murmurs. No JVD. Chest - clear breath sounds b/l, no wheezes, good air entry Abdomen - soft, obese, non-tender, BS active. Extremities - warm, 1+ edema, + peripheral pulses, well perfused. Neuro - awake, alert, follows commands, moves all extremities, nods head to questions, tracks with eyes. A/P Problem List: (1) Acute on chronic respiratory failure with hypoxemia ICD Code: J96.21 - Acute and chronic respiratory failure with hypoxia (2) Symptomatic bradycardia ICD Code: R00.1 - Bradycardia, unspecified Status: Acute (3) Morbid obesity with BMI of 50.0-59.9, adult ICD Code: E66.01 - Morbid (severe) obesity due to excess calories; Z68.43 - Body mass index (BMI) 50-59.9 , adult Status: Acute (4) Atrial fibrillation ICD Code: I48.91 - Unspecified atrial fibrillation Status: Chronic (5) CKD (chronic kidney disease), stage III ICD Code: N18.3 - Chronic kidney disease, stage 3 (moderate) Status: Chronic (6) Chronic systolic CHF (congestive heart failure) ICD Code: I50.22 - Chronic systolic (congestive) heart failure Status: Chronic Assessment and Plan ASSESSMENT: 1. Acute hypercapneic and hypoxic respiratory failure s/p emergent trach - still tolerating T piece during daytime and PS at night 2. Afib/flutter with RVR - rate controlled with cardizem and lopressor 3. Mixed gram negative bronchitis vs pneumonia - afebrile, minimal leukocytosis 4. DENNYS on CKD - slowly improving, good urine output, followed by nephrology 5. Hypokalemia 6. NICM with EF 20% 7. Shock liver, likely secondary to hypoperfusion - improving 8. H/o seizure d/o 9. H/o cardiac arrest 10. DM, Type 2 11. Possible CHINO/OHS 12. Enterococcus in urine 13. Hypernatremia - better, on free water PLAN: 1. T piece during daytime as tolerated and PS at night 2. Ventilator bundle and bronchodilators 3. Ceftriaxone, stopped, completed a 7d course. 4. Electrolyte replacement per protocol 5. OOB to chair, as tolerated 6. On metoprolol and Cardizem. 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 On apixaban 7. D/C amiodarone. 8. Will need FABRICE/ARB and spironolactone once renal function improves 9. Continue statin 10. On topiramate for underlying seizure disorder 11. Glycemic control with insulin sliding scale 12. TF with nepro and free water 13. GI prophylaxis 14. DVT prophylaxis addressed 15. Consult GI for peg placement -> placed Overall impression: Would benefit from LTAC placement. Will leave #8 XLT as permanent trach. Follow nutritional values. Continue to mobilize to [facility] chair. Sohail Ma MD Dec 10, 2017 12:23
--- NOTE | 2017-12-10 14:35 | HHI.NPPN ---
Subjective General Problems: Anemia, Edema, Heart Disease, Obesity Renal Failure: Chronic, Acute, Stage IV History of Present Illness Patient is a 57-year-old -[place] male with past medical history of seizure disorder, chronic systolic congestive heart failure, hx of respiratory failure requiring tracheostomy placement, hx of cardiogenic shock with PEA arrest, chronic kidney disease, hypertension, diabetes mellitus, atrial fibrillation who was admitted with increased swelling and afib RVR. I was called to see the patient for elevated BUN and creatinine. The patient has a known history of chronic kidney disease and it seems like his baseline creatinine has been in the range of 1.4 to 2.0 and it has increased now at 2.83. Chest Xray noted with pulmonary edema. On ventilator via trach at 40 % FiO2 and weaning trial this morning. Was receiving lasix 40 mg daily which is on hold for elevating renal indices and patient is receiving IVF NS at 100 ml per hour for 1 bag. The patient is not able to give any history because he has a tracheostomy but he is responding to verbal commands and he seems to be fully awake in good spirits. Additional Remarks On the vent. via Trach resting comfortably, no edema, no distress (Petra Banks) Objective Data Data Vital Signs Date Time Temp Pulse Resp B/P (MAP) Pulse Ox O2 Delivery O2 Flow Rate FiO2 12/10/17 11:31 100 35 12/10/17 10:00 90 12/10/17 08:15 35 12/10/17 08:00 98.2 83 15 108/69 (82) 100 12/10/17 08:00 82 12/10/17 08:00 35 12/10/17 07:19 100 35 12/10/17 06:00 86 12/10/17 04:03 96 35 12/10/17 04:00 35 12/10/17 04:00 98 12/10/17 04:00 98.8 86 18 95/62 (73) 99 12/10/17 02:00 88 12/10/17 01:32 98 35 12/10/17 00:00 35 12/10/17 00:00 88 12/10/17 00:00 98.9 113 19 104/65 (78) 99 12/09/17 22:53 100 35 12/09/17 22:00 88 2/5/18 20:18 98 35 12/09/17 20:00 88 12/09/17 20:00 35 12/09/17 18:00 83 12/09/17 16:00 35 12/09/17 16:00 99.2 96 29 109/59 (76) 100 12/09/17 16:00 96 12/09/17 15:12 98 35 (Petra BanksP) -: 12/10/17 0821 Physical Exam General Appearance: Obese (Petra Banks. MARKER MAKER) Eyes Eye Exam: Pupils Equal (Petra Banks. MARKER MAKER) Neck Neck Remarks trach (Petra Banks. MARKER MAKER) Pulmonary Resp Exam: No Distress, Decreased Bases (Petra Banks. MARKER MAKER) Cardiology CV Exam: Irregular (Petra Banks M. MARKER MAKER) Gastrointestinal/Abdomen GI Exam: Non-Tender, Bowel Sounds Present (Petra Banks M. MARKER MAKER) Genitourinary Exam: Flank Non-Tender (Petra Banks M. MARKER MAKER) Integumentary Skin Exam: Clear, Warm (Petra Banks. MARKER MAKER) Extremeties Extremities Exam: Trace Edema (Karol Banksne M. MARKER MAKER) Neurologic Neuro Exam: Alert, Awake (Petra Banks. MARKER MAKER) Psychiatric Psych Exam: Appropriate Responses Psych Remarks Nods to commands (Petra Banks. MARKER MAKER) Assessment/Plan Assessment Summary: CKD Stage III Electrolyte Assessment: Hypernatremia, Hypokalemia Problem List: (1) CKD (chronic kidney disease), stage III ICD Codes: N18.3 - Chronic kidney disease, stage 3 (moderate) Status: Chronic Plan: Likely pre-renal, may have progressed to ATN. Creatinine stable is stable Continues to have good urinary output Avoid nephrotoxins. On GT feeding Hypokalemia at 2.9 IV replacement given today and scheduled increased BMP in AM (2) Respiratory failure ICD Codes: J96.90 - Respiratory failure, unspecified, unspecified whether with hypoxia or hypercapnia Plan: Resting now On F1O2 at 35% via trach (3) Non-ischemic cardiomyopathy ICD Codes: I42.8 - Other cardiomyopathies Status: Chronic Plan: Lasix on hold On metoprolol (4) Paroxysmal atrial fibrillation ICD Codes: I48.0 - Paroxysmal atrial fibrillation Status: Acute Plan: rate controlled metoprolol and Cardizem On Eliquis for anticoagulation (5) Hypokalemia ICD Codes: E87.6 - Hypokalemia Plan: Replacement ordered recheck in AM (6) Seizure ICD Codes: R56.9 - Unspecified convulsions Plan: continue Topamax (7) Hypernatremia ICD Codes: E87.0 - Hyperosmolality and hypernatremia Plan: Na at 146 monitor (Petra Banks) Problem List: (1) CKD (chronic kidney disease), stage III ICD Codes: N18.3 - Chronic kidney disease, stage 3 (moderate) Status: Chronic Plan: Likely pre-renal, may have progressed to ATN. Creatinine stable is stable Continues to have good urinary output Avoid nephrotoxins. On GT feeding Hypokalemia at 2.9 IV replacement given today and scheduled increased BMP in AM. Patient seen and examined, agree with above. (2) Respiratory failure ICD Codes: J96.90 - Respiratory failure, unspecified, unspecified whether with hypoxia or hypercapnia Plan: Resting now On F1O2 at 35% via trach (3) Non-ischemic cardiomyopathy ICD Codes: I42.8 - Other cardiomyopathies Status: Chronic Plan: Lasix on hold On metoprolol (4) Paroxysmal atrial fibrillation ICD Codes: I48.0 - Paroxysmal atrial fibrillation Status: Acute Plan: rate controlled metoprolol and Cardizem On Eliquis for anticoagulation (5) Hypokalemia ICD Codes: E87.6 - Hypokalemia Plan: Replacement ordered recheck in AM (6) Seizure ICD Codes: R56.9 - Unspecified convulsions Plan: continue Topamax (7) Hypernatremia ICD Codes: E87.0 - Hyperosmolality and hypernatremia Plan: Na at 146 monitor (Rajan Hoyt MD) Petra Banks Dec 10, 2017 14:34 Rajan Hoyt MD Dec 10, 2017 14:42
[2017-12-10] MEDS: POTASSIUM CHLOR 20 MEQ PREMIX 100 ML IV SCH ×2 (16:00→17:57)
[2017-12-10] MEDS ORDERED: POTASSIUM CHLORIDE 25 MEQ EFFERVESCENT TAB PO ONE (18:00)
[2017-12-10] MEDS: ATORVASTATIN 80 MG TAB PO SCH (20:17)
[2017-12-10] MEDS: RESP: ALBUTEROL 2.5 MG/3 ML NEB (PRN) NEB (23:09)
[2017-12-11] VITALS (18 sets, daily range): BP systolic 94–123; BP diastolic 58–72; PULSE 60–92; RESP 15–26; TEMP 98.7–100; O2SAT 96–100
[2017-12-11] MEDS: CHLORHEXIDINE GLUCONATE 2 % 1 PACK (2 CLOTHS) TOP SCH (03:49)
[2017-12-11] MEDS: ARTIFICIAL TEARS OPTH SOLN 15 ML BTL EACH EYE SCH ×3 (05:34→22:15)
[2017-12-11] MEDS: DILTIAZEM HCL 60 MG TAB PO SCH ×3 (05:34→18:40)
[2017-12-11] MEDS: INSULIN NovoLIN REGULAR SUPPLEMENTAL SCALE SQ SCH ×4 (05:35→23:46)
[2017-12-11] MEDS: CHLORHEXIDINE 0.12% (ORAL KIT) 15 ML CUP MT SCH ×3 (08:00→22:24)
[2017-12-11] MEDS: SODIUM CHLORIDE 0.9% FLUSH 10 ML FLUSH IV FLUSH SCH ×2 (09:00→21:11)
[2017-12-11] MEDS: DOCUSATE SODIUM 50 MG/SENNA 8.6 MG TAB PO SCH ×2 (09:29→21:11)
[2017-12-11] MEDS: FAMOTIDINE 20 MG TAB NG SCH ×2 (09:30→21:10)
[2017-12-11] MEDS: POLYETHYLENE GLYCOL 17 GM PKG NG SCH ×2 (09:30→21:10)
[2017-12-11] MEDS: TOPIRAMATE 200 MG TAB PO SCH (09:30)
[2017-12-11] MEDS: METOPROLOL TARTRATE 100 MG TAB PO SCH ×2 (09:30→21:10)
[2017-12-11] MEDS: POTASSIUM CHLORIDE 20 MEQ PWD PACKET NG SCH ×3 (09:31→18:40)
--- NOTE | 2017-12-11 09:52 | HHI.NPPN ---
Subjective General Problems: Anemia, Edema, Heart Disease, Obesity Renal Failure: Chronic, Acute, Stage IV History of Present Illness Patient is a 57-year-old -[place] male with past medical history of seizure disorder, chronic systolic congestive heart failure, hx of respiratory failure requiring tracheostomy placement, hx of cardiogenic shock with PEA arrest, chronic kidney disease, hypertension, diabetes mellitus, atrial fibrillation who was admitted with increased swelling and afib RVR. I was called to see the patient for elevated BUN and creatinine. The patient has a known history of chronic kidney disease and it seems like his baseline creatinine has been in the range of 1.4 to 2.0 and it has increased now at 2.83. Chest Xray noted with pulmonary edema. On ventilator via trach at 40 % FiO2 and weaning trial this morning. Was receiving lasix 40 mg daily which is on hold for elevating renal indices and patient is receiving IVF NS at 100 ml per hour for 1 bag. The patient is not able to give any history because he has a tracheostomy but he is responding to verbal commands and he seems to be fully awake in good spirits. Additional Remarks On the vent. via Trach resting comfortably, no edema, no distress, CPAP this AM. Low grade temp of 100 last night (Petra Banks) Objective Data Data Vital Signs Date Time Temp Pulse Resp B/P (MAP) Pulse Ox O2 Delivery O2 Flow Rate FiO2 12/11/17 07:32 99 30 12/11/17 07:32 30 12/11/17 06:00 90 12/11/17 04:24 100 35 12/11/17 04:00 35 12/11/17 04:00 100.0 88 24 112/72 (85) 100 12/11/17 04:00 88 12/11/17 02:00 78 12/11/17 01:47 100 35 12/11/17 00:00 92 12/11/17 00:00 100.0 92 15 112/72 (85) 100 12/11/17 00:00 35 12/10/17 22:00 70 12/10/17 20:00 98.6 74 16 105/62 (76) 97 12/10/17 20:00 74 12/10/17 20:00 35 12/10/17 19:57 97 35 12/10/17 18:00 84 12/10/17 16:00 98.6 82 23 107/58 (74) 100 12/10/17 16:00 82 12/10/17 16:00 35 12/10/17 15:01 100 35 12/10/17 14:00 68 12/10/17 12:00 99.0 83 15 108/69 (82) 100 12/10/17 12:00 35 12/10/17 12:00 84 12/10/17 11:31 100 35 12/10/17 10:00 90 (Petra Banks) -: 12/10/17 2245 Imaging Last Impressions Gastrostomy Tube Placement 12/06/17 0000 Signed Impressions: Service Date/Time: Wednesday, December 06, 2017 14:50 - CONCLUSION: Uncomplicated gastrostomy tube placement as above. Marco Booker MD Chest X-Ray 11/27/17 0000 Signed Impressions: Service Date/Time: Monday, November 27, 2017 10:56 - CONCLUSION: Cardiomegaly with mild congestive failure, minimal improvement. Rell Valentin MD FACR Abdomen X-Ray 11/16/17 0000 Signed Impressions: Service Date/Time: Thursday, November 16, 2017 09:53 - CONCLUSION: Nasogastric tube tip in the region of the distal stomach. Jose Bruno MD (Petra Banks) Physical Exam General Appearance: Obese (Petra Banks) Eyes Eye Exam: Pupils Equal (Petra Banks) Neck Neck Remarks trach (Petra Banks) Pulmonary Resp Exam: No Distress, Decreased Bases (Petra Banks) Cardiology CV Exam: Irregular (Petra Banks) Gastrointestinal/Abdomen GI Exam: Non-Tender, Bowel Sounds Present (Petra Banks) Genitourinary Exam: Flank Non-Tender (Petra Banks) Integumentary Skin Exam: Clear, Warm (Petra Banks) Extremeties Extremities Exam: Trace Edema (Petra Banks) Neurologic Neuro Exam: Alert, Awake (Petra Banks) Psychiatric Psych Exam: Appropriate Responses Psych Remarks Nods to commands (Petra Banks) Assessment/Plan Assessment Summary: CKD Stage III Electrolyte Assessment: Hypernatremia, Hypokalemia Problem List: (1) CKD (chronic kidney disease), stage III ICD Codes: N18.3 - Chronic kidney disease, stage 3 (moderate) Status: Chronic Plan: Likely pre-renal, may have progressed to ATN. Creatinine stable is stable Continues to have good urinary output Avoid nephrotoxins. On GT feeding- nephro Hypokalemia improved at 3.5 last night continue to monitor labs and UOP (2) Respiratory failure ICD Codes: J96.90 - Respiratory failure, unspecified, unspecified whether with hypoxia or hypercapnia Plan: Resting now On F1O2 at 35% via trach CPAP this AM (3) Non-ischemic cardiomyopathy ICD Codes: I42.8 - Other cardiomyopathies Status: Chronic Plan: Lasix on hold On metoprolol (4) Paroxysmal atrial fibrillation ICD Codes: I48.0 - Paroxysmal atrial fibrillation Status: Acute Plan: rate controlled metoprolol and Cardizem On Eliquis for anticoagulation (5) Hypokalemia ICD Codes: E87.6 - Hypokalemia Plan: K 3.5 at last check (6) Seizure ICD Codes: R56.9 - Unspecified convulsions Plan: continue Topamax (7) Hypernatremia ICD Codes: E87.0 - Hyperosmolality and hypernatremia Plan: Na at 146 monitor (Petra Banks) Problem List: (1) CKD (chronic kidney disease), stage III ICD Codes: N18.3 - Chronic kidney disease, stage 3 (moderate) Status: Chronic Plan: Likely pre-renal, may have progressed to ATN. Creatinine stable is stable Continues to have good urinary output Avoid nephrotoxins. On GT feeding- nephro Hypokalemia improved at 3.5 last night continue to monitor labs and UOP Patient seen and examined, agree with above. Follow the urine out put and BMP. (2) Respiratory failure ICD Codes: J96.90 - Respiratory failure, unspecified, unspecified whether with hypoxia or hypercapnia Plan: Resting now On F1O2 at 35% via trach CPAP this AM (3) Non-ischemic cardiomyopathy ICD Codes: I42.8 - Other cardiomyopathies Status: Chronic Plan: Lasix on hold On metoprolol (4) Paroxysmal atrial fibrillation ICD Codes: I48.0 - Paroxysmal atrial fibrillation Status: Acute Plan: rate controlled metoprolol and Cardizem On Eliquis for anticoagulation (5) Hypokalemia ICD Codes: E87.6 - Hypokalemia Plan: K 3.5 at last check (6) Seizure ICD Codes: R56.9 - Unspecified convulsions Plan: continue Topamax (7) Hypernatremia ICD Codes: E87.0 - Hyperosmolality and hypernatremia Plan: Na at 146 monitor (Rajan Hoyt MD) Petra Banks Dec 11, 2017 09:51 Rajan Hoyt MD Dec 11, 2017 11:49
--- NOTE | 2017-12-11 13:20 | HHI.CCPN ---
Subjective Remarks/Hospital Course 57 y/o man with chronic nonischemic cardiomyopathy, EF 20% presents two days ago to ED with a-fib and RVR. Morbid obesity and chronic obesity hypoventilation syndrome. Developed bradycardia requiring atropine this morning , rushed to [facility] where on arrival he is obtunded with agonal respirations. Rate acceptable, depth shallow. Required bag mask ventilation, dopamine and levophed. Unable to intubate despite optic endoscope; proceeded to tracheostomy. Sats maintained > 80% throughout. Initial pH 7.14. 11/17: S/P resuscitation for probable hypercapneic respiratory arrest with bradycardia, hypotension. Has required mechanical ventilation. Perfusion improved after inotropic support instituted, now tapering. Elevated LFTs may reflect period of inadequate perfusion. 11/18: Doing well on T-piece. Resolving shock liver, DENNYS. Should go home with trach. 11/19: Fatigues on CPAP/T-piece. Will need LTAC. 11/20: stable. still volume overloaded by clinical exam. will need LTAC placement. SUBJECTIVE: 11/21: Tmax 1.3. Currently 99.9. Remains on PRvC ventilation. NG tube is been resumed. Remains on furosemide 40 mg IV 3 times daily. Heart rate slightly tachycardic 11/22: Pulse intermittently 150. Consistently 120s. Will add PO cardizem and attempt to get better rate control - permanent a-fib. 11/23: Heart rate control improved on po cardizem. Slightly over-diuresed, will back off on lasix. 11/24: Persistent intractable coughing. Low grade fever. Deteriorating renal function. CXR with pulmonary venous congestion but no consolidation or infiltrate. 11/25: Unable to wean ventilator. Hold lasix today, review pending renal function. 11/26: No events over the night. Patient doing well, sat in chair, now back in bed. Good spirits, follows commands. Afebrile. I/O 2444/675. 11/27: No events throughout the night. This AM, patient is resting comfortable. Afebrile, I/O 2537/1350. 11/28: Patient did well through the night. This AM, awake, doing great on PS 5/ 5. Tmax 99.3, I/O 1335/950. 11/29: No events over the night. Patient awake, on CPAP. Tolerated T piece for 8 hours yesterday. Lower urine output over the last few hours. 11/30: No events. Did well on T piece yesterday. Afebrile, I/O . Awake. 12/01: Patient resting comfortable, easily arousable. Afebrile. 12/02: Renal function improving, tolerating diuresis. Heart rate control acceptable. 12/03: Lying in bed. No acute distress follows commands. Renal function stable. UO 1.5 L in 24 hours 12/04: Awake alert, tolerating CPAP. Pulled his NG tube yesterday night, now replaced. Will consult GI for PEG placement. 12/05: Getting ahead on free water. Continue weaning efforts. Remains cooperative, alert. 12/06: Fluid balance about right. Progressing slowly with mobility to stretcher chair and vent weaning. 12/07: Replace electrolytes. Restart TFs when OK with GI. 12/08: Continuing weaning trials - still ventilator dependent. 12/09: Continued vent weaning trials. 12/10: Continue weaning trials. 12/11: Continuing weaning trials. Resting in bed not in any acute distress. Objective Vital Signs Date Time Temp Pulse Resp B/P (MAP) Pulse Ox O2 Delivery O2 Flow Rate FiO2 12/11/17 11:31 100 30 12/11/17 06:00 90 12/11/17 04:00 100.0 24 112/72 (85) Intake and Output 12/11/17 12/11/17 12/12/17 08:00 16:00 00:00 Intake Total 376 ml Output Total 350 ml Balance 26 ml Result Diagram: 12/10/17 2245 Imaging Last Impressions Chest X-Ray 11/19/17 0000 Signed Impressions: Service Date/Time: Sunday, November 19, 2017 11:33 - CONCLUSION: Improved basilar opacities essentially cleared on the right and minimal residual on the left. Efrain Dimas MD Abdomen X-Ray 11/16/17 0000 Signed Impressions: Service Date/Time: Thursday, November 16, 2017 09:53 - CONCLUSION: Nasogastric tube tip in the region of the distal stomach. Jose Bruno MD Objective Remarks General - middle age gentleman, awake, in no distress, on vent via trach HEENT - pupils equal, reactive, neck soft, + trach (XLT) - site clean, dry. CV - irregular heart sounds, no murmurs. No JVD. Chest - clear breath sounds b/l, no wheezes, good air entry Abdomen - soft, obese, non-tender, BS active. Extremities - warm, 1+ edema, + peripheral pulses, well perfused. Neuro - awake, alert, follows commands, moves all extremities, nods head to questions, tracks with eyes. A/P Problem List: (1) Acute on chronic respiratory failure with hypoxemia ICD Code: J96.21 - Acute and chronic respiratory failure with hypoxia (2) Symptomatic bradycardia ICD Code: R00.1 - Bradycardia, unspecified Status: Acute (3) Morbid obesity with BMI of 50.0-59.9, adult ICD Code: E66.01 - Morbid (severe) obesity due to excess calories; Z68.43 - Body mass index (BMI) 50-59.9 , adult Status: Acute (4) Atrial fibrillation ICD Code: I48.91 - Unspecified atrial fibrillation Status: Chronic (5) CKD (chronic kidney disease), stage III ICD Code: N18.3 - Chronic kidney disease, stage 3 (moderate) Status: Chronic (6) Chronic systolic CHF (congestive heart failure) ICD Code: I50.22 - Chronic systolic (congestive) heart failure Status: Chronic Assessment and Plan ASSESSMENT: 1. Acute hypercapneic and hypoxic respiratory failure s/p emergent trach - still tolerating T piece during daytime and PS at night 2. Afib/flutter with RVR - rate controlled with cardizem and lopressor 3. Mixed gram negative bronchitis vs pneumonia - afebrile, minimal leukocytosis 4. DENNYS on CKD - slowly improving, good urine output, followed by nephrology 5. Hypokalemia 6. NICM with EF 20% 7. Shock liver, likely secondary to hypoperfusion - improving 8. H/o seizure d/o 9. H/o cardiac arrest 10. DM, Type 2 11. Possible CHINO/OHS 12. Enterococcus in urine 13. Hypernatremia - better, on free water PLAN: 1. T piece during daytime as tolerated and PS at night 2. Ventilator bundle and bronchodilators 3. Ceftriaxone, stopped, completed a 7d course. 4. Electrolyte replacement per protocol 5. OOB to chair, as tolerated 6. On metoprolol and Cardizem. [facility] may need to stop Cardizem due to compounding negative inotropy effect. On apixaban 7. D/C amiodarone. 8. Will need FABRICE/ARB and spironolactone once renal function improves 9. Continue statin 10. On topiramate for underlying seizure disorder 11. Glycemic control with insulin sliding scale 12. TF with nepro and free water 13. GI prophylaxis 14. DVT prophylaxis addressed 15. Consult GI for peg placement -> placed Overall impression: Would benefit from LTAC placement. Will leave #8 XLT as permanent trach. Follow nutritional values. Continue to mobilize to [facility] chair. Momo Alexander MD Dec 11, 2017 13:20
[2017-12-11] MEDS: ATORVASTATIN 80 MG TAB PO SCH (21:10)
[2017-12-12] VITALS (19 sets, daily range): BP systolic 100–136; BP diastolic 61–91; PULSE 70–107; RESP 22–28; TEMP 99.3–100.1; O2SAT 90–100
[2017-12-12] MEDS: DILTIAZEM HCL 60 MG TAB PO SCH ×4 (00:58→18:28)
[2017-12-12] MEDS: CHLORHEXIDINE GLUCONATE 2 % 1 PACK (2 CLOTHS) TOP SCH (02:05)
[2017-12-12] MEDS: ARTIFICIAL TEARS OPTH SOLN 15 ML BTL EACH EYE SCH ×3 (05:15→22:00)
[2017-12-12] MEDS: INSULIN NovoLIN REGULAR SUPPLEMENTAL SCALE SQ SCH ×3 (06:00→18:00)
[2017-12-12] MEDS: ONDANSETRON HCL 4 MG/2 ML VIAL IV PUSH PRN (07:53)
[2017-12-12] MEDS: MORPHINE SULFATE 2 MG/ML INJ IV PUSH PRN (08:07)
[2017-12-12] MEDS: CHLORHEXIDINE 0.12% (ORAL KIT) 15 ML CUP MT SCH ×2 (08:07→20:00)
--- NOTE | 2017-12-12 08:41 | HHI.NPPN ---
Subjective General Problems: Anemia, Edema, Heart Disease, Obesity Renal Failure: Chronic, Acute, Stage IV History of Present Illness Patient is a 57-year-old -[place] male with past medical history of seizure disorder, chronic systolic congestive heart failure, hx of respiratory failure requiring tracheostomy placement, hx of cardiogenic shock with PEA arrest, chronic kidney disease, hypertension, diabetes mellitus, atrial fibrillation who was admitted with increased swelling and afib RVR. I was called to see the patient for elevated BUN and creatinine. The patient has a known history of chronic kidney disease and it seems like his baseline creatinine has been in the range of 1.4 to 2.0 and it has increased now at 2.83. Chest Xray noted with pulmonary edema. On ventilator via trach at 40 % FiO2 and weaning trial this morning. Was receiving lasix 40 mg daily which is on hold for elevating renal indices and patient is receiving IVF NS at 100 ml per hour for 1 bag. The patient is not able to give any history because he has a tracheostomy but he is responding to verbal commands and he seems to be fully awake in good spirits. Additional Remarks On the vent. via Trach resting comfortably, no edema, no distress. (Petra Banks) Objective Data Data Vital Signs Date Time Temp Pulse Resp B/P (MAP) Pulse Ox O2 Delivery O2 Flow Rate FiO2 12/12/17 06:00 70 12/12/17 04:33 100 30 12/12/17 04:00 30 12/12/17 04:00 99.9 89 22 114/67 (83) 100 12/12/17 04:00 89 12/12/17 02:00 89 12/12/17 01:05 99 30 12/12/17 00:00 99.3 90 23 100/74 (83) 100 12/12/17 00:00 30 12/12/17 00:00 90 12/11/17 22:00 60 12/11/17 20:35 99 30 12/11/17 20:00 63 12/11/17 20:00 30 12/11/17 20:00 98.7 63 24 123/58 (79) 100 12/11/17 18:00 81 12/11/17 16:00 60 12/11/17 16:00 99.1 60 24 103/71 (82) 100 12/11/17 16:00 30 12/11/17 15:31 96 30 12/11/17 14:00 78 12/11/17 12:00 30 12/11/17 12:00 82 12/11/17 12:00 99.3 82 24 94/65 (75) 100 12/11/17 11:31 100 30 12/11/17 10:00 64 (Petra BanksP) -: 12/10/17 2245 Physical Exam General Appearance: Obese (Petra Banks NETWORK SECURITY ADMINISTRATOR) Eyes Eye Exam: Pupils Equal (Petra Banks. NETWORK SECURITY ADMINISTRATOR) Neck Neck Remarks trach (Petra Banks NETWORK SECURITY ADMINISTRATOR) Pulmonary Resp Exam: No Distress, Decreased Bases (Petra Banks. NETWORK SECURITY ADMINISTRATOR) Cardiology CV Exam: Irregular (Petra Banks M. NETWORK SECURITY ADMINISTRATOR) Gastrointestinal/Abdomen GI Exam: Non-Tender, Bowel Sounds Present (Petra Banks M. NETWORK SECURITY ADMINISTRATOR) Genitourinary Exam: Flank Non-Tender (Petra Banks. NETWORK SECURITY ADMINISTRATOR) Integumentary Skin Exam: Clear, Warm (Petra Banks. NETWORK SECURITY ADMINISTRATOR) Extremeties Extremities Exam: Trace Edema (Petra Banks M. NETWORK SECURITY ADMINISTRATOR) Neurologic Neuro Exam: Alert, Awake (Petra Banks. NETWORK SECURITY ADMINISTRATOR) Psychiatric Psych Exam: Appropriate Responses Psych Remarks Nods to commands (Petra Banks. NETWORK SECURITY ADMINISTRATOR) Assessment/Plan Assessment Summary: CKD Stage III Electrolyte Assessment: Hypernatremia, Hypokalemia Problem List: (1) CKD (chronic kidney disease), stage III ICD Codes: N18.3 - Chronic kidney disease, stage 3 (moderate) Status: Chronic Plan: Likely pre-renal, may have progressed to ATN. Creatinine stable is stable Continues to have good urinary output Avoid nephrotoxins. On GT feeding- nephro continue to monitor labs and UOP BMP in AM (2) Respiratory failure ICD Codes: J96.90 - Respiratory failure, unspecified, unspecified whether with hypoxia or hypercapnia Plan: Resting now On F1O2 at 30% via trach (3) Non-ischemic cardiomyopathy ICD Codes: I42.8 - Other cardiomyopathies Status: Chronic Plan: Lasix on hold On metoprolol (4) Paroxysmal atrial fibrillation ICD Codes: I48.0 - Paroxysmal atrial fibrillation Status: Acute Plan: rate controlled metoprolol and Cardizem On Eliquis for anticoagulation (5) Hypokalemia ICD Codes: E87.6 - Hypokalemia Plan: K 3.5 at last check (6) Seizure ICD Codes: R56.9 - Unspecified convulsions Plan: continue Topamax (7) Hypernatremia ICD Codes: E87.0 - Hyperosmolality and hypernatremia Plan: Na at 146 last check monitor (Petra Banks) Problem List: (1) CKD (chronic kidney disease), stage III ICD Codes: N18.3 - Chronic kidney disease, stage 3 (moderate) Status: Chronic Plan: Likely pre-renal, may have progressed to ATN. Creatinine stable is stable Continues to have good urinary output Avoid nephrotoxins. On GT feeding- nephro continue to monitor labs and UOP BMP in AM Patient seen and examined, agree with above. (2) Respiratory failure ICD Codes: J96.90 - Respiratory failure, unspecified, unspecified whether with hypoxia or hypercapnia Plan: Resting now On F1O2 at 30% via trach (3) Non-ischemic cardiomyopathy ICD Codes: I42.8 - Other cardiomyopathies Status: Chronic Plan: Lasix on hold On metoprolol (4) Paroxysmal atrial fibrillation ICD Codes: I48.0 - Paroxysmal atrial fibrillation Status: Acute Plan: rate controlled metoprolol and Cardizem On Eliquis for anticoagulation (5) Hypokalemia ICD Codes: E87.6 - Hypokalemia Plan: K 3.5 at last check (6) Seizure ICD Codes: R56.9 - Unspecified convulsions Plan: continue Topamax (7) Hypernatremia ICD Codes: E87.0 - Hyperosmolality and hypernatremia Plan: Na at 146 last check monitor (Rajan Hoyt MD) Petra Banks Dec 12, 2017 08:41 Rajan Hoyt MD Dec 12, 2017 15:34
[2017-12-12] MEDS: DOCUSATE SODIUM 50 MG/SENNA 8.6 MG TAB PO SCH ×2 (09:00→21:00)
--- NOTE | 2017-12-12 09:05 | HHI.CCPN ---
Subjective Remarks/Hospital Course 57 y/o man with chronic nonischemic cardiomyopathy, EF 20% presents two days ago to ED with a-fib and RVR. Morbid obesity and chronic obesity hypoventilation syndrome. Developed bradycardia requiring atropine this morning , rushed to [facility] where on arrival he is obtunded with agonal respirations. Rate acceptable, depth shallow. Required bag mask ventilation, dopamine and levophed. Unable to intubate despite optic endoscope; proceeded to tracheostomy. Sats maintained > 80% throughout. Initial pH 7.14. 11/17: S/P resuscitation for probable hypercapneic respiratory arrest with bradycardia, hypotension. Has required mechanical ventilation. Perfusion improved after inotropic support instituted, now tapering. Elevated LFTs may reflect period of inadequate perfusion. 11/18: Doing well on T-piece. Resolving shock liver, DENNYS. Should go home with trach. 11/19: Fatigues on CPAP/T-piece. Will need LTAC. 11/20: stable. still volume overloaded by clinical exam. will need LTAC placement. SUBJECTIVE: 11/21: Tmax 1.3. Currently 99.9. Remains on PRvC ventilation. NG tube is been resumed. Remains on furosemide 40 mg IV 3 times daily. Heart rate slightly tachycardic 11/22: Pulse intermittently 150. Consistently 120s. Will add PO cardizem and attempt to get better rate control - permanent a-fib. 11/23: Heart rate control improved on po cardizem. Slightly over-diuresed, will back off on lasix. 11/24: Persistent intractable coughing. Low grade fever. Deteriorating renal function. CXR with pulmonary venous congestion but no consolidation or infiltrate. 11/25: Unable to wean ventilator. Hold lasix today, review pending renal function. 11/26: No events over the night. Patient doing well, sat in chair, now back in bed. Good spirits, follows commands. Afebrile. I/O 2444/675. 11/27: No events throughout the night. This AM, patient is resting comfortable. Afebrile, I/O 2537/1350. 11/28: Patient did well through the night. This AM, awake, doing great on PS 5/ 5. Tmax 99.3, I/O 1335/950. 11/29: No events over the night. Patient awake, on CPAP. Tolerated T piece for 8 hours yesterday. Lower urine output over the last few hours. 11/30: No events. Did well on T piece yesterday. Afebrile, I/O . Awake. 12/01: Patient resting comfortable, easily arousable. Afebrile. 12/02: Renal function improving, tolerating diuresis. Heart rate control acceptable. 12/03: Lying in bed. No acute distress follows commands. Renal function stable. UO 1.5 L in 24 hours 12/04: Awake alert, tolerating CPAP. Pulled his NG tube yesterday night, now replaced. Will consult GI for PEG placement. 12/05: Getting ahead on free water. Continue weaning efforts. Remains cooperative, alert. 12/06: Fluid balance about right. Progressing slowly with mobility to stretcher chair and vent weaning. 12/07: Replace electrolytes. Restart TFs when OK with GI. 12/08: Continuing weaning trials - still ventilator dependent. 12/09: Continued vent weaning trials. 12/10: Continue weaning trials. 12/11: Continuing weaning trials. Resting in bed not in any acute distress. 12/12: Remains on mechanical ventilation via tracheostomy. Awake and alert. Daily C Pap trials ongoing. Objective Vital Signs Date Time Temp Pulse Resp B/P (MAP) Pulse Ox O2 Delivery O2 Flow Rate FiO2 12/12/17 06:00 70 12/12/17 04:33 100 30 12/12/17 04:00 99.9 22 114/67 (83) Intake and Output 12/12/17 12/12/17 12/13/17 08:00 16:00 00:00 Intake Total 474 ml Output Total 800 ml Balance -326 ml Result Diagram: 12/10/17 2245 Imaging Last Impressions Chest X-Ray 11/19/17 0000 Signed Impressions: Service Date/Time: Sunday, November 19, 2017 11:33 - CONCLUSION: Improved basilar opacities essentially cleared on the right and minimal residual on the left. Efrain Dimas MD Abdomen X-Ray 11/16/17 0000 Signed Impressions: Service Date/Time: Thursday, November 16, 2017 09:53 - CONCLUSION: Nasogastric tube tip in the region of the distal stomach. Jose Bruno MD Objective Remarks General - middle age gentleman, awake, in no distress, on vent via trach HEENT - pupils equal, reactive, neck soft, + trach (XLT) - site clean, dry. CV - irregular heart sounds, no murmurs. No JVD. Chest - clear breath sounds b/l, no wheezes, good air entry Abdomen - soft, obese, non-tender, BS active. Extremities - warm, 1+ edema, + peripheral pulses, well perfused. Neuro - awake, alert, follows commands, moves all extremities, nods head to questions, tracks with eyes. A/P Problem List: (1) Acute on chronic respiratory failure with hypoxemia ICD Code: J96.21 - Acute and chronic respiratory failure with hypoxia (2) Symptomatic bradycardia ICD Code: R00.1 - Bradycardia, unspecified Status: Acute (3) Morbid obesity with BMI of 50.0-59.9, adult ICD Code: E66.01 - Morbid (severe) obesity due to excess calories; Z68.43 - Body mass index (BMI) 50-59.9 , adult Status: Acute (4) Atrial fibrillation ICD Code: I48.91 - Unspecified atrial fibrillation Status: Chronic (5) CKD (chronic kidney disease), stage III ICD Code: N18.3 - Chronic kidney disease, stage 3 (moderate) Status: Chronic (6) Chronic systolic CHF (congestive heart failure) ICD Code: I50.22 - Chronic systolic (congestive) heart failure Status: Chronic Assessment and Plan ASSESSMENT: 1. Acute hypercapneic and hypoxic respiratory failure s/p emergent trach - still tolerating T piece during daytime and PS at night 2. Afib/flutter with RVR - rate controlled with cardizem and lopressor 3. Mixed gram negative bronchitis vs pneumonia - afebrile, minimal leukocytosis 4. DENNYS on CKD - slowly improving, good urine output, followed by nephrology 5. Hypokalemia 6. NICM with EF 20% 7. Shock liver, likely secondary to hypoperfusion - improving 8. H/o seizure d/o 9. H/o cardiac arrest 10. DM, Type 2 11. Possible CHINO/OHS 12. Enterococcus in urine 13. Hypernatremia - better, on free water PLAN: 1. T piece during daytime as tolerated and PS at night 2. Ventilator bundle and bronchodilators 3. Ceftriaxone, stopped, completed a 7d course. 4. Electrolyte replacement per protocol 5. OOB to chair, as tolerated 6. On metoprolol and Cardizem. group home may need to stop Cardizem due to compounding negative inotropy effect. On apixaban 7. D/C amiodarone. 8. Will need FABRICE/ARB and spironolactone once renal function improves 9. Continue statin 10. On topiramate for underlying seizure disorder 11. Glycemic control with insulin sliding scale 12. TF with nepro and free water 13. GI prophylaxis 14. DVT prophylaxis addressed 15. Consult GI for peg placement -> placed Overall impression: Would benefit from LTAC placement. Will leave #8 XLT as permanent trach. Follow nutritional values. Continue to mobilize to stretcher chair. Momo Alexander MD Dec 12, 2017 09:05
[2017-12-12] MEDS: FAMOTIDINE 20 MG TAB NG SCH ×2 (09:49→21:39)
[2017-12-12] MEDS: POTASSIUM CHLORIDE 20 MEQ PWD PACKET NG SCH ×3 (09:49→18:28)
[2017-12-12] MEDS: POLYETHYLENE GLYCOL 17 GM PKG NG SCH ×2 (09:49→21:00)
[2017-12-12] MEDS: SODIUM CHLORIDE 0.9% FLUSH 10 ML FLUSH IV FLUSH SCH ×2 (09:49→21:00)
[2017-12-12] MEDS: TOPIRAMATE 200 MG TAB PO SCH (09:49)
[2017-12-12] MEDS: METOPROLOL TARTRATE 100 MG TAB PO SCH ×2 (09:49→21:39)
[2017-12-12] MEDS: RESP: ALBUTEROL 2.5 MG/3 ML NEB (PRN) NEB (19:49)
[2017-12-12] MEDS: oxyCODONE HCL ORAL CONC 5 MG/0.25 ML SYRINGE NG PRN (21:39)
[2017-12-12] MEDS: ATORVASTATIN 80 MG TAB PO SCH (21:39)
[2017-12-13] VITALS (19 sets, daily range): BP systolic 103–128; BP diastolic 61–81; PULSE 71–94; RESP 18–25; TEMP 98.6–100.4; O2SAT 94–100
[2017-12-13] MEDS: CHLORHEXIDINE GLUCONATE 2 % 1 PACK (2 CLOTHS) TOP SCH (04:00)
[2017-12-13] MEDS: DILTIAZEM HCL 60 MG TAB PO SCH ×5 (05:22→22:32)
[2017-12-13] MEDS: ARTIFICIAL TEARS OPTH SOLN 15 ML BTL EACH EYE SCH ×3 (05:22→22:00)
[2017-12-13] MEDS: INSULIN NovoLIN REGULAR SUPPLEMENTAL SCALE SQ SCH ×4 (05:44→17:05)
[2017-12-13] MEDS: CHLORHEXIDINE 0.12% (ORAL KIT) 15 ML CUP MT SCH ×2 (08:11→20:00)
[2017-12-13 08:38] LABS: AUTOMATED NEUTROPHIL # 9.5 TH/MM3 (1.8-7.7); BASOPHIL # 0.1 TH/MM3 (0-0.2); BASOPHIL % 0.7 % (0.0-2.0); EOSINOPHIL # 0.3 TH/MM3 (0-0.4); EOSINOPHIL % 2.5 % (0.0-4.0); HEMATOCRIT 32.6 % (39.0-51.0); HEMOGLOBIN 10.5 GM/DL (13.0-17.0); LYMPH % 11.7 % (9.0-44.0); LYMPHOCYTE # 1.4 TH/MM3 (1.0-4.8); MEAN CELL VOLUME 87.2 FL (80.0-100.0); MEAN CORPUSCULAR HGB CONC 32.1 % (32.0-36.0); MEAN PLATELET VOLUME 11.2 FL (7.0-11.0); MONO % 7.9 % (0.0-8.0); NEUT % 77.2 % (16.0-70.0); PLATELET COUNT 161 TH/MM3 (150-450); RED BLOOD COUNT 3.74 MIL/MM3 (4.50-5.90); WHITE BLOOD COUNT 12.3 TH/MM3 (4.0-11.0)
[2017-12-13 08:57] LABS: BICARBONATE 15.5 MEQ/L (21.0-32.0); CALCIUM 8.5 MG/DL (8.5-10.1); CREATININE 1.79 MG/DL (0.60-1.30)
[2017-12-13] MEDS: TOPIRAMATE 200 MG TAB PO SCH (09:42)
[2017-12-13] MEDS: POLYETHYLENE GLYCOL 17 GM PKG NG SCH ×2 (09:43→21:00)
[2017-12-13] MEDS: METOPROLOL TARTRATE 100 MG TAB PO SCH ×2 (09:43→22:32)
[2017-12-13] MEDS: FAMOTIDINE 20 MG TAB NG SCH ×2 (09:43→22:32)
[2017-12-13] MEDS: SODIUM CHLORIDE 0.9% FLUSH 10 ML FLUSH IV FLUSH SCH ×2 (09:43→22:33)
[2017-12-13] MEDS: POTASSIUM CHLORIDE 20 MEQ PWD PACKET NG SCH ×3 (09:43→17:08)
[2017-12-13] MEDS: DOCUSATE SODIUM 50 MG/SENNA 8.6 MG TAB PO SCH ×2 (09:43→21:00)
--- NOTE | 2017-12-13 10:06 | HHI.NPPN ---
Subjective General Problems: Anemia, Edema, Heart Disease, Obesity Renal Failure: Chronic, Acute, Stage IV History of Present Illness Patient is a 57-year-old -[place] male with past medical history of seizure disorder, chronic systolic congestive heart failure, hx of respiratory failure requiring tracheostomy placement, hx of cardiogenic shock with PEA arrest, chronic kidney disease, hypertension, diabetes mellitus, atrial fibrillation who was admitted with increased swelling and afib RVR. I was called to see the patient for elevated BUN and creatinine. The patient has a known history of chronic kidney disease and it seems like his baseline creatinine has been in the range of 1.4 to 2.0 and it has increased now at 2.83. Chest Xray noted with pulmonary edema. On ventilator via trach at 40 % FiO2 and weaning trial this morning. Was receiving lasix 40 mg daily which is on hold for elevating renal indices and patient is receiving IVF NS at 100 ml per hour for 1 bag. The patient is not able to give any history because he has a tracheostomy but he is responding to verbal commands and he seems to be fully awake in good spirits. Additional Remarks Patient is alert, on the vent. via Trach resting comfortably, no edema, no distress. Objective Data Data Vital Signs Date Time Temp Pulse Resp B/P (MAP) Pulse Ox O2 Delivery O2 Flow Rate FiO2 12/13/17 07:50 100 40 12/13/17 07:50 40 12/13/17 06:00 73 12/13/17 05:59 97 30 12/13/17 04:00 100.4 93 25 103/78 (86) 98 12/13/17 04:00 93 12/13/17 04:00 30 12/13/17 03:40 97 30 12/13/17 02:00 91 12/13/17 00:19 96 30 12/13/17 00:00 85 12/13/17 00:00 100.0 85 23 119/81 (94) 94 12/13/17 00:00 30 12/12/17 22:00 98 12/12/17 20:00 83 12/12/17 20:00 30 12/12/17 20:00 100.1 97 26 116/61 (79) 96 12/12/17 19:49 96 30 12/12/17 18:00 94 12/12/17 16:00 99.5 96 25 123/91 (102) 99 2/8/18 16:00 30 12/12/17 16:00 100 12/12/17 15:34 99 30 12/12/17 14:00 96 12/12/17 12:00 99.3 107 28 136/70 (92) 99 12/12/17 12:00 30 12/12/17 12:00 107 12/12/17 11:23 100 30 12/12/17 10:17 100 30 -: 12/13/17 0819 12/13/17 0819 Physical Exam General Appearance: Obese Appearance Remarks With Tracheostomy. Eyes Eye Exam: Pupils Equal Pulmonary Resp Exam: No Distress, Decreased Bases Cardiology CV Exam: Irregular Gastrointestinal/Abdomen GI Exam: Non-Tender, Bowel Sounds Present Genitourinary Exam: Flank Non-Tender Integumentary Skin Exam: Clear, Warm Extremeties Extremities Exam: Trace Edema Neurologic Neuro Exam: Alert, Awake Psychiatric Psych Exam: Appropriate Responses Assessment/Plan Assessment Summary: CKD Stage III Electrolyte Assessment: Hypernatremia, Hypokalemia Problem List: (1) CKD (chronic kidney disease), stage III ICD Codes: N18.3 - Chronic kidney disease, stage 3 (moderate) Status: Chronic Plan: Likely pre-renal, may have progressed to ATN. Continues to have adequate urinary output Avoid nephrotoxins. On GT feeding- nephro continue to monitor labs and UOP Creatinine is same, K is better. Hco3 is low, add NaHco3. (2) Respiratory failure ICD Codes: J96.90 - Respiratory failure, unspecified, unspecified whether with hypoxia or hypercapnia Plan: Resting now On F1O2 at 30% via trach (3) Non-ischemic cardiomyopathy ICD Codes: I42.8 - Other cardiomyopathies Status: Chronic Plan: Lasix on hold On metoprolol (4) Paroxysmal atrial fibrillation ICD Codes: I48.0 - Paroxysmal atrial fibrillation Status: Acute Plan: rate controlled metoprolol and Cardizem On Eliquis for anticoagulation (5) Hypokalemia ICD Codes: E87.6 - Hypokalemia Plan: K 3.5 at last check (6) Seizure ICD Codes: R56.9 - Unspecified convulsions Plan: continue Topamax (7) Hypernatremia ICD Codes: E87.0 - Hyperosmolality and hypernatremia Plan: Na at 146 last check monitor Rajan Hoyt MD Dec 13, 2017 10:06
[2017-12-13] MEDS: SODIUM BICARBONATE 650 MG TAB PO SCH ×2 (11:06→22:32)
--- NOTE | 2017-12-13 15:26 | HHI.CCPN ---
Subjective Remarks/Hospital Course 57 y/o man with chronic nonischemic cardiomyopathy, EF 20% presents two days ago to ED with a-fib and RVR. Morbid obesity and chronic obesity hypoventilation syndrome. Developed bradycardia requiring atropine this morning , rushed to [facility] where on arrival he is obtunded with agonal respirations. Rate acceptable, depth shallow. Required bag mask ventilation, dopamine and levophed. Unable to intubate despite optic endoscope; proceeded to tracheostomy. Sats maintained > 80% throughout. Initial pH 7.14. 11/17: S/P resuscitation for probable hypercapneic respiratory arrest with bradycardia, hypotension. Has required mechanical ventilation. Perfusion improved after inotropic support instituted, now tapering. Elevated LFTs may reflect period of inadequate perfusion. 11/18: Doing well on T-piece. Resolving shock liver, DENNYS. Should go home with trach. 11/19: Fatigues on CPAP/T-piece. Will need LTAC. 11/20: stable. still volume overloaded by clinical exam. will need LTAC placement. 11/21: Tmax 1.3. Currently 99.9. Remains on PRvC ventilation. NG tube is been resumed. Remains on furosemide 40 mg IV 3 times daily. Heart rate slightly tachycardic 11/22: Pulse intermittently 150. Consistently 120s. Will add PO cardizem and attempt to get better rate control - permanent a-fib. 11/23: Heart rate control improved on po cardizem. Slightly over-diuresed, will back off on lasix. 11/24: Persistent intractable coughing. Low grade fever. Deteriorating renal function. CXR with pulmonary venous congestion but no consolidation or infiltrate. 11/25: Unable to wean ventilator. Hold lasix today, review pending renal function. 11/26: No events over the night. Patient doing well, sat in chair, now back in bed. Good spirits, follows commands. Afebrile. I/O 2444/675. 11/27: No events throughout the night. This AM, patient is resting comfortable. Afebrile, I/O 2537/1350. 11/28: Patient did well through the night. This AM, awake, doing great on PS 5/ 5. Tmax 99.3, I/O 1335/950. 11/29: No events over the night. Patient awake, on CPAP. Tolerated T piece for 8 hours yesterday. Lower urine output over the last few hours. 11/30: No events. Did well on T piece yesterday. Afebrile, I/O . Awake. 12/01: Patient resting comfortable, easily arousable. Afebrile. 12/02: Renal function improving, tolerating diuresis. Heart rate control acceptable. 12/03: Lying in bed. No acute distress follows commands. Renal function stable. UO 1.5 L in 24 hours 12/04: Awake alert, tolerating CPAP. Pulled his NG tube yesterday night, now replaced. Will consult GI for PEG placement. 12/05: Getting ahead on free water. Continue weaning efforts. Remains cooperative, alert. 12/06: Fluid balance about right. Progressing slowly with mobility to stretcher chair and vent weaning. 12/07: Replace electrolytes. Restart TFs when OK with GI. 12/08: Continuing weaning trials - still ventilator dependent. 12/09: Continued vent weaning trials. 12/10: Continue weaning trials. 12/11: Continuing weaning trials. Resting in bed not in any acute distress. 12/12: Remains on mechanical ventilation via tracheostomy. Awake and alert. Daily C Pap trials ongoing. SUBJECTIVE: 12/13: no changes. remains on the vent. follows commands. still failing weaning attempts. denied by insurance again for LTAC level care. requires that degree of care, but will be forced to attempt to find long-term vent-capable SNF for patient given limitations in funding. Objective Vital Signs Date Time Temp Pulse Resp B/P (MAP) Pulse Ox O2 Delivery O2 Flow Rate FiO2 12/13/17 14:00 80 12/13/17 12:56 96 40 12/13/17 12:00 99.0 24 110/75 (87) Intake and Output 12/13/17 12/13/17 12/14/17 08:00 16:00 00:00 Intake Total 863 ml Output Total 500 ml Balance 363 ml Result Diagram: 12/13/1781812/13/17818 Imaging Last Impressions Chest X-Ray 11/19/17 0000 Signed Impressions: Service Date/Time: Sunday, November 19, 2017 11:33 - CONCLUSION: Improved basilar opacities essentially cleared on the right and minimal residual on the left. Efrain Dimas MD Abdomen X-Ray 11/16/17 0000 Signed Impressions: Service Date/Time: Thursday, November 16, 2017 09:53 - CONCLUSION: Nasogastric tube tip in the region of the distal stomach. Jose Bruno MD Objective Remarks General - middle age gentleman, awake, in no distress, on vent via trach HEENT - pupils equal, reactive, neck soft, + trach (XLT) - site clean, dry. CV - normal rate, irregular rhythm. No JVD. Chest - equal chest rise. on t-piece trial. Abdomen - soft, obese, non-tender, Extremities - warm, 1+ edema, + peripheral pulses, well perfused. Neuro - awake, alert, follows commands, moves all extremities, nods head to questions, tracks with eyes. A/P Problem List: (1) Acute on chronic respiratory failure with hypoxemia ICD Code: J96.21 - Acute and chronic respiratory failure with hypoxia (2) Symptomatic bradycardia ICD Code: R00.1 - Bradycardia, unspecified Status: Acute (3) Morbid obesity with BMI of 50.0-59.9, adult ICD Code: E66.01 - Morbid (severe) obesity due to excess calories; Z68.43 - Body mass index (BMI) 50-59.9 , adult Status: Acute (4) Atrial fibrillation ICD Code: I48.91 - Unspecified atrial fibrillation Status: Chronic (5) CKD (chronic kidney disease), stage III ICD Code: N18.3 - Chronic kidney disease, stage 3 (moderate) Status: Chronic (6) Chronic systolic CHF (congestive heart failure) ICD Code: I50.22 - Chronic systolic (congestive) heart failure Status: Chronic Assessment and Plan ASSESSMENT: 1. Acute hypercapneic and hypoxic respiratory failure s/p emergent trach - still tolerating T piece during daytime and PS at night 2. Afib/flutter with RVR - rate controlled with cardizem and lopressor 3. Mixed gram negative bronchitis vs pneumonia - afebrile, minimal leukocytosis 4. DENNYS on CKD - slowly improving, good urine output, followed by nephrology 5. Hypokalemia 6. NICM with EF 20% 7. Shock liver, likely secondary to hypoperfusion - improving 8. H/o seizure d/o 9. H/o cardiac arrest 10. DM, Type 2 11. Possible CHINO/OHS 12. Enterococcus in urine 13. Hypernatremia - better, on free water PLAN: 1. T piece during daytime as tolerated and PS at night 2. Ventilator bundle and bronchodilators 3. Ceftriaxone, stopped, completed a 7d course. 4. Electrolyte replacement per protocol 5. OOB to chair, as tolerated 6. On metoprolol and Cardizem. longterm may need to stop Cardizem due to compounding negative inotropy effect. On apixaban 7. Will need FABRICE/ARB and spironolactone once renal function improves 8. Continue statin 9. On topiramate for underlying seizure disorder 10. Glycemic control with insulin sliding scale 11. TF with nepro and free water 12. GI prophylaxis 13. DVT prophylaxis addressed Overall impression: Would benefit from LTAC placement. Will leave #8 XLT as permanent trach. Follow nutritional values. Continue to mobilize to stretcher chair. Mamadou Mcgowan MD Dec 13, 2017 15:26
[2017-12-13] MEDS: MORPHINE SULFATE 2 MG/ML INJ IV PUSH PRN (22:26)
[2017-12-13] MEDS: ATORVASTATIN 80 MG TAB PO SCH (22:32)
[2017-12-14] VITALS (16 sets, daily range): BP systolic 99–140; BP diastolic 57–91; PULSE 80–100; RESP 21–25; TEMP 99.1–100.8; O2SAT 89–100
[2017-12-14] MEDS: CHLORHEXIDINE GLUCONATE 2 % 1 PACK (2 CLOTHS) TOP SCH (04:00)
[2017-12-14] MEDS: INSULIN NovoLIN REGULAR SUPPLEMENTAL SCALE SQ SCH ×4 (06:00→18:00)
[2017-12-14] MEDS: ARTIFICIAL TEARS OPTH SOLN 15 ML BTL EACH EYE SCH ×3 (06:00→21:54)
[2017-12-14] MEDS: DILTIAZEM HCL 60 MG TAB PO SCH ×2 (06:21→13:06)
[2017-12-14] MEDS: CHLORHEXIDINE 0.12% (ORAL KIT) 15 ML CUP MT SCH ×2 (08:00→20:09)
[2017-12-14] MEDS: DOCUSATE SODIUM 50 MG/SENNA 8.6 MG TAB PO SCH ×2 (09:00→20:09)
[2017-12-14] MEDS: POLYETHYLENE GLYCOL 17 GM PKG NG SCH ×2 (09:00→20:08)
[2017-12-14] MEDS: SODIUM CHLORIDE 0.9% FLUSH 10 ML FLUSH IV FLUSH SCH ×2 (09:00→20:08)
--- NOTE | 2017-12-14 09:39 | HHI.CCPN ---
Subjective Remarks/Hospital Course 57 y/o man with chronic nonischemic cardiomyopathy, EF 20% presents two days ago to ED with a-fib and RVR. Morbid obesity and chronic obesity hypoventilation syndrome. Developed bradycardia requiring atropine this morning , rushed to [facility] where on arrival he is obtunded with agonal respirations. Rate acceptable, depth shallow. Required bag mask ventilation, dopamine and levophed. Unable to intubate despite optic endoscope; proceeded to tracheostomy. Sats maintained > 80% throughout. Initial pH 7.14. 11/17: S/P resuscitation for probable hypercapneic respiratory arrest with bradycardia, hypotension. Has required mechanical ventilation. Perfusion improved after inotropic support instituted, now tapering. Elevated LFTs may reflect period of inadequate perfusion. 11/18: Doing well on T-piece. Resolving shock liver, DENNYS. Should go home with trach. 11/19: Fatigues on CPAP/T-piece. Will need LTAC. 11/20: stable. still volume overloaded by clinical exam. will need LTAC placement. 11/21: Tmax 1.3. Currently 99.9. Remains on PRvC ventilation. NG tube is been resumed. Remains on furosemide 40 mg IV 3 times daily. Heart rate slightly tachycardic 11/22: Pulse intermittently 150. Consistently 120s. Will add PO cardizem and attempt to get better rate control - permanent a-fib. 11/23: Heart rate control improved on po cardizem. Slightly over-diuresed, will back off on lasix. 11/24: Persistent intractable coughing. Low grade fever. Deteriorating renal function. CXR with pulmonary venous congestion but no consolidation or infiltrate. 11/25: Unable to wean ventilator. Hold lasix today, review pending renal function. 11/26: No events over the night. Patient doing well, sat in chair, now back in bed. Good spirits, follows commands. Afebrile. I/O 2444/675. 11/27: No events throughout the night. This AM, patient is resting comfortable. Afebrile, I/O 2537/1350. 11/28: Patient did well through the night. This AM, awake, doing great on PS 5/ 5. Tmax 99.3, I/O 1335/950. 11/29: No events over the night. Patient awake, on CPAP. Tolerated T piece for 8 hours yesterday. Lower urine output over the last few hours. 11/30: No events. Did well on T piece yesterday. Afebrile, I/O . Awake. 12/01: Patient resting comfortable, easily arousable. Afebrile. 12/02: Renal function improving, tolerating diuresis. Heart rate control acceptable. 12/03: Lying in bed. No acute distress follows commands. Renal function stable. UO 1.5 L in 24 hours 12/04: Awake alert, tolerating CPAP. Pulled his NG tube yesterday night, now replaced. Will consult GI for PEG placement. 12/05: Getting ahead on free water. Continue weaning efforts. Remains cooperative, alert. 12/06: Fluid balance about right. Progressing slowly with mobility to stretcher chair and vent weaning. 12/07: Replace electrolytes. Restart TFs when OK with GI. 12/08: Continuing weaning trials - still ventilator dependent. 12/09: Continued vent weaning trials. 12/10: Continue weaning trials. 12/11: Continuing weaning trials. Resting in bed not in any acute distress. 12/12: Remains on mechanical ventilation via tracheostomy. Awake and alert. Daily C Pap trials ongoing. 12/13: no changes. remains on the vent. follows commands. still failing weaning attempts. denied by insurance again for LTAC level care. requires that degree of care, but will be forced to attempt to find long-term vent-capable SNF for patient given limitations in funding. SUBJECTIVE: 12/14: unable to wean cpap today, secretions much worse. starting to spike fevers. may have VAP. will send cultures, CXR, cbc, bmp. start vancomycin and cefepime. Objective Vital Signs Date Time Temp Pulse Resp B/P (MAP) Pulse Ox O2 Delivery O2 Flow Rate FiO2 12/14/17 08:17 94 35 12/14/17 06:00 95 12/14/17 04:00 100.6 22 114/67 (83) Intake and Output 12/14/17 12/14/17 12/15/17 08:00 16:00 00:00 Intake Total 955 ml Output Total 900 ml Balance 55 ml Result Diagram: 12/13/1781812/13/17818 Imaging Last Impressions Chest X-Ray 11/19/17 0000 Signed Impressions: Service Date/Time: Sunday, November 19, 2017 11:33 - CONCLUSION: Improved basilar opacities essentially cleared on the right and minimal residual on the left. Efrain Dimas MD Abdomen X-Ray 11/16/17 0000 Signed Impressions: Service Date/Time: Thursday, November 16, 2017 09:53 - CONCLUSION: Nasogastric tube tip in the region of the distal stomach. Jose Bruno MD Objective Remarks General - middle age gentleman, awake, on vent via trach HEENT - pupils equal, reactive, neck soft, + trach (XLT) - site clean, dry. CV - normal rate, irregular rhythm. No JVD. Chest - equal chest rise. full vent support. secretions thick. Abdomen - soft, obese, non-tender, Extremities - warm, 1+ edema, + peripheral pulses, well perfused. Neuro - awake, alert, follows commands, moves all extremities, nods head to questions, tracks with eyes. A/P Problem List: (1) Acute on chronic respiratory failure with hypoxemia ICD Code: J96.21 - Acute and chronic respiratory failure with hypoxia (2) Symptomatic bradycardia ICD Code: R00.1 - Bradycardia, unspecified Status: Acute (3) Morbid obesity with BMI of 50.0-59.9, adult ICD Code: E66.01 - Morbid (severe) obesity due to excess calories; Z68.43 - Body mass index (BMI) 50-59.9 , adult Status: Acute (4) Atrial fibrillation ICD Code: I48.91 - Unspecified atrial fibrillation Status: Chronic (5) CKD (chronic kidney disease), stage III ICD Code: N18.3 - Chronic kidney disease, stage 3 (moderate) Status: Chronic (6) Chronic systolic CHF (congestive heart failure) ICD Code: I50.22 - Chronic systolic (congestive) heart failure Status: Chronic Assessment and Plan ASSESSMENT: Acute hypercapneic and hypoxic respiratory failure s/p emergent trach - still tolerating T piece during daytime and PS at night Afib/flutter with RVR - rate controlled with cardizem and lopressor Mixed gram negative bronchitis vs pneumonia - afebrile, minimal leukocytosis DENNYS on CKD - slowly improving, good urine output, followed by nephrology Hypokalemia - resolved. NICM with EF 20% Shock liver, likely secondary to hypoperfusion -resolved H/o seizure d/o H/o cardiac arrest DM, Type 2 Possible CHINO/OHS Enterococcus in urine Hypernatremia - better, on free water new respiratory distress fever leukocytosis possible healthcare associated/ventilator associated pneumonia. PLAN: 1. no t-piece trial today given worsening resp distress 2. jurado culture 3. start vancomycin/cefepime 4. cbc, bmp 5. cxr 6. vent bundle, nebs, hob elevated 7. wean fio2 for goal spo2 > 90% 8. Electrolyte replacement per protocol 9. OOB to chair, as tolerated 10. On metoprolol and Cardizem. 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 On apixaban 11. Will need FABRICE/ARB and spironolactone once renal function improves 12. Continue statin 13. On topiramate for underlying seizure disorder 14. Glycemic control with insulin sliding scale 15. TF with nepro and free water 16. GI prophylaxis 17. DVT prophylaxis addressed Overall impression: clinically worse today. unable to tolerate cpap trials which he previously was tolerating. now with likely ventilator associated pneumonia. start abx. send cultures. highly complex, ventilator dependent. critically ill. Mamadou Mcgowan MD Dec 14, 2017 09:39
[2017-12-14] MEDS ORDERED: Vancomycin Consult Pharmacy 1 EA OTHER SCH (09:45)
[2017-12-14] MEDS ORDERED: VANCOMYCIN INJ 1,250 MG in SODIUM CHLOR 0.9% 250 ML INJ 250 ML IV ONE (09:45)
[2017-12-14] MEDS: METOPROLOL TARTRATE 100 MG TAB PO SCH ×2 (09:57→21:53)
[2017-12-14] MEDS: POTASSIUM CHLORIDE 20 MEQ PWD PACKET NG SCH ×3 (09:57→18:00)
[2017-12-14] MEDS: SODIUM BICARBONATE 650 MG TAB PO SCH ×2 (09:58→21:53)
[2017-12-14] MEDS: FAMOTIDINE 20 MG TAB NG SCH ×2 (09:58→20:09)
[2017-12-14] MEDS: TOPIRAMATE 200 MG TAB PO SCH (09:58)
[2017-12-14] MEDS: CEFEPIME INJ 1,000 MG in SODIUM CHLORIDE 0.9% INJ 100 ML IV SCH (10:06)
[2017-12-14] MEDS ORDERED: VANCOMYCIN INJ 2,500 MG in SODIUM CHLORID 0.9% 500 ML INJ 500 ML IV ONE (11:00)
--- NOTE | 2017-12-14 11:29 | RADRPT ---
EXAM DATE/TIME: 12/14/2017 10:43 [facility] COMPARISON: CHEST SINGLE AP, November 27, 2017, 10:56. INDICATIONS : Fever. MEDICAL HISTORY : Congestive heart failure. Atrial fibrillation SURGICAL HISTORY : None. ENCOUNTER: Subsequent ACUITY: 1 day PAIN SCORE: Non-responsive. LOCATION: Bilateral chest FINDINGS: AP semiupright portable view of the chest demonstrate significant patient rotation. The heart size is moderately enlarged. The lungs are grossly clear. Tracheostomy tube present. CONCLUSION: No acute disease. Elizabeth Gomes MD on December 14, 2017 at 11:27 Board Certified Radiologist. This report was verified electronically.
[2017-12-14 11:40] LABS: HEMATOCRIT 34.8 % (39.0-51.0); HEMOGLOBIN 11.3 GM/DL (13.0-17.0); MEAN CELL VOLUME 88.1 FL (80.0-100.0); MEAN CORPUSCULAR HEMOGLOBIN 28.6 PG (27.0-34.0); MEAN CORPUSCULAR HGB CONC 32.5 % (32.0-36.0); MEAN PLATELET VOLUME 11.4 FL (7.0-11.0); PLATELET COUNT 161 TH/MM3 (150-450); RED BLOOD COUNT 3.95 MIL/MM3 (4.50-5.90); RED CELL DISTRIBUTION WIDTH 16.2 % (11.6-17.2); WHITE BLOOD COUNT 13.9 TH/MM3 (4.0-11.0)
[2017-12-14 11:59] LABS: BICARBONATE 12.6 MEQ/L (21.0-32.0); CALCIUM 8.8 MG/DL (8.5-10.1); CREATININE 1.75 MG/DL (0.60-1.30)
[2017-12-14] MEDS ORDERED: VANCOMYCIN INJ 2,000 MG in SODIUM CHLORID 0.9% 500 ML INJ 500 ML IV ONE (12:00)
--- NOTE | 2017-12-14 13:42 | HHI.NPPN ---
Subjective General Problems: Anemia, Edema, Heart Disease, Obesity Renal Failure: Chronic, Acute, Stage IV History of Present Illness Patient is a 57-year-old -[place] male with past medical history of seizure disorder, chronic systolic congestive heart failure, hx of respiratory failure requiring tracheostomy placement, hx of cardiogenic shock with PEA arrest, chronic kidney disease, hypertension, diabetes mellitus, atrial fibrillation who was admitted with increased swelling and afib RVR. I was called to see the patient for elevated BUN and creatinine. The patient has a known history of chronic kidney disease and it seems like his baseline creatinine has been in the range of 1.4 to 2.0 and it has increased now at 2.83. Chest Xray noted with pulmonary edema. On ventilator via trach at 40 % FiO2 and weaning trial this morning. Was receiving lasix 40 mg daily which is on hold for elevating renal indices and patient is receiving IVF NS at 100 ml per hour for 1 bag. The patient is not able to give any history because he has a tracheostomy but he is responding to verbal commands and he seems to be fully awake in good spirits. Additional Remarks Patient sleeping on the vent. via Trach, no edema, no distress. (Petra Banks) Objective Data Data Vital Signs Date Time Temp Pulse Resp B/P (MAP) Pulse Ox O2 Delivery O2 Flow Rate FiO2 12/14/17 11:23 99 35 12/14/17 08:17 94 35 12/14/17 06:00 95 12/14/17 04:19 100 30 12/14/17 04:00 98 12/14/17 04:00 100.6 98 22 114/67 (83) 99 12/14/17 04:00 30 12/14/17 02:00 86 12/14/17 02:00 100 30 12/14/17 00:00 84 12/14/17 00:00 30 12/14/17 00:00 99.7 84 21 99/61 (74) 100 12/13/17 22:00 94 12/13/17 20:00 78 12/13/17 20:00 99.3 82 24 128/61 (83) 100 12/13/17 20:00 30 12/13/17 19:33 100 30 12/13/17 18:00 77 12/13/17 16:15 100 40 12/13/17 16:00 99.0 82 24 111/61 (78) 97 12/13/17 16:00 82 12/13/17 16:00 40 12/13/17 14:00 80 (Petra Banks) -: 12/14/17 1116 12/14/17 1110 Microbiology 12/14/17 Aerobic Blood Culture, Received Pending 12/14/17 Anaerobic Blood Culture, Received Pending 12/14/17 Aerobic Blood Culture, Received Pending 12/14/17 Anaerobic Blood Culture, Received Pending 12/14/17 Gram Stain, Received Pending 12/14/17 Sputum Culture, Received Pending Imaging Last Impressions Chest X-Ray 12/14/17 0000 Signed Impressions: Service Date/Time: Thursday, December 14, 2017 10:43 - CONCLUSION: No acute disease. Elizabeth Gomes MD Gastrostomy Tube Placement 12/06/17 0000 Signed Impressions: Service Date/Time: Wednesday, December 06, 2017 14:50 - CONCLUSION: Uncomplicated gastrostomy tube placement as above. Marco Booker MD Abdomen X-Ray 11/16/17 0000 Signed Impressions: Service Date/Time: Thursday, November 16, 2017 09:53 - CONCLUSION: Nasogastric tube tip in the region of the distal stomach. Jose Bruno MD (Petra Banks) Physical Exam General Appearance: Obese (Petra Banks) Eyes Eye Exam: Pupils Equal (Petra Banks) Neck Neck Remarks trach (Petra Banks) Pulmonary Resp Exam: No Distress, Decreased Bases (Petra Banks) Cardiology CV Exam: Irregular (Petra Banks) Gastrointestinal/Abdomen GI Exam: Non-Tender, Bowel Sounds Present (Petra Banks) Genitourinary Exam: Flank Non-Tender (Petra Banks) Integumentary Skin Exam: Clear, Warm (Petra Banks) Extremeties Extremities Exam: Trace Edema (Petra Banks) Neurologic Neuro Exam: Alert, Awake (Petra Banks) Psychiatric Psych Exam: Appropriate Responses Psych Remarks Nods to commands (Petra Banks) Assessment/Plan Assessment Summary: CKD Stage III Electrolyte Assessment: Hypernatremia, Hypokalemia Problem List: (1) CKD (chronic kidney disease), stage III ICD Codes: N18.3 - Chronic kidney disease, stage 3 (moderate) Status: Chronic Plan: Likely pre-renal, may have progressed to ATN. Continues to have adequate urinary output Avoid nephrotoxins. On GT feeding- nephro continue to monitor labs and UOP Creatinine is stable, K is UNL. Hco3 is low, NaHco3 increased (2) Respiratory failure ICD Codes: J96.90 - Respiratory failure, unspecified, unspecified whether with hypoxia or hypercapnia Plan: Resting now On F1O2 at 30% via trach (3) Non-ischemic cardiomyopathy ICD Codes: I42.8 - Other cardiomyopathies Status: Chronic Plan: Lasix on hold On metoprolol (4) Paroxysmal atrial fibrillation ICD Codes: I48.0 - Paroxysmal atrial fibrillation Status: Acute Plan: rate controlled metoprolol and Cardizem On Eliquis for anticoagulation (5) Hypokalemia ICD Codes: E87.6 - Hypokalemia Plan: K 3.8 at last check (6) Seizure ICD Codes: R56.9 - Unspecified convulsions Plan: continue Topamax (7) Hypernatremia ICD Codes: E87.0 - Hyperosmolality and hypernatremia Plan: Na at 147 last check monitor (Petra Banks) Problem List: (1) CKD (chronic kidney disease), stage III ICD Codes: N18.3 - Chronic kidney disease, stage 3 (moderate) Status: Chronic Plan: Likely pre-renal, may have progressed to ATN. Continues to have adequate urinary output Avoid nephrotoxins. On GT feeding- nephro continue to monitor labs and UOP Creatinine is stable, K is UNL. Hco3 is low, NaHco3 increased. Patient seen and examined, agree with above. (2) Respiratory failure ICD Codes: J96.90 - Respiratory failure, unspecified, unspecified whether with hypoxia or hypercapnia Plan: Resting now On F1O2 at 30% via trach (3) Non-ischemic cardiomyopathy ICD Codes: I42.8 - Other cardiomyopathies Status: Chronic Plan: Lasix on hold On metoprolol (4) Paroxysmal atrial fibrillation ICD Codes: I48.0 - Paroxysmal atrial fibrillation Status: Acute Plan: rate controlled metoprolol and Cardizem On Eliquis for anticoagulation (5) Hypokalemia ICD Codes: E87.6 - Hypokalemia Plan: K 3.8 at last check (6) Seizure ICD Codes: R56.9 - Unspecified convulsions Plan: continue Topamax (7) Hypernatremia ICD Codes: E87.0 - Hyperosmolality and hypernatremia Plan: Na at 147 last check monitor (Rajan Hoyt MD) Petra Banks Dec 14, 2017 13:42 Rajan Hoyt MD Dec 14, 2017 22:42
[2017-12-14] MEDS: ATORVASTATIN 80 MG TAB PO SCH (20:09)
[2017-12-15] VITALS (18 sets, daily range): BP systolic 97–116; BP diastolic 55–70; PULSE 74–96; RESP 21–25; TEMP 98.2–100.6; O2SAT 98–100
[2017-12-15] MEDS: DILTIAZEM HCL 60 MG TAB PO SCH ×4 (00:26→18:20)
[2017-12-15] MEDS: CEFEPIME INJ 1,000 MG in SODIUM CHLORIDE 0.9% INJ 100 ML IV SCH ×3 (01:12→18:20)
[2017-12-15] MEDS: CHLORHEXIDINE GLUCONATE 2 % 1 PACK (2 CLOTHS) TOP SCH (03:39)
[2017-12-15] MEDS: ARTIFICIAL TEARS OPTH SOLN 15 ML BTL EACH EYE SCH ×3 (05:32→21:14)
[2017-12-15] MEDS: SODIUM BICARBONATE 650 MG TAB PO SCH ×3 (05:47→21:13)
[2017-12-15] MEDS: INSULIN NovoLIN REGULAR SUPPLEMENTAL SCALE SQ SCH ×4 (05:47→18:00)
[2017-12-15 08:07] LABS: BACTERIA, URINE FEW /hpf; BILIRUBIN, URINE NEG (NEG); BLOOD, URINE MOD (NEG); GLUCOSE,URINE NEG (NEG); HYALINE CAST, URINE 6 /lpf (RARE); KETONE, URINE NEG (NEG); MUCUS URINE FEW /lpf (OCC); NITRITE,URINE NEG (NEG); SQUAMOUS EPITHELIAL CELL URINE <1 /hpf (0-5); URINE COLOR YELLOW (YELLW/STRAW); URINE LEUKOCYTE ESTERASE LARGE (NEG)
[2017-12-15] MEDS: POLYETHYLENE GLYCOL 17 GM PKG NG SCH ×2 (09:00→20:04)
[2017-12-15] MEDS: SODIUM CHLORIDE 0.9% FLUSH 10 ML FLUSH IV FLUSH SCH ×2 (09:00→20:06)
[2017-12-15] MEDS: DOCUSATE SODIUM 50 MG/SENNA 8.6 MG TAB PO SCH ×2 (09:00→20:04)
[2017-12-15 09:26] LABS: BICARBONATE 15.5 MEQ/L (21.0-32.0); CALCIUM 8.6 MG/DL (8.5-10.1); CREATININE 1.81 MG/DL (0.60-1.30)
[2017-12-15] MEDS: CHLORHEXIDINE 0.12% (ORAL KIT) 15 ML CUP MT SCH ×2 (09:41→20:06)
[2017-12-15] MEDS: TOPIRAMATE 200 MG TAB PO SCH (09:42)
[2017-12-15] MEDS: METOPROLOL TARTRATE 100 MG TAB PO SCH ×2 (09:42→21:00)
[2017-12-15] MEDS: FAMOTIDINE 20 MG TAB NG SCH ×2 (09:42→21:13)
[2017-12-15] MEDS: POTASSIUM CHLORIDE 20 MEQ PWD PACKET NG SCH ×3 (09:44→18:21)
--- NOTE | 2017-12-15 11:37 | HHI.NPPN ---
Subjective General Problems: Anemia, Edema, Heart Disease, Obesity Renal Failure: Chronic, Acute, Stage IV History of Present Illness Patient is a 57-year-old -[place]ian male with past medical history of seizure disorder, chronic systolic congestive heart failure, hx of respiratory failure requiring tracheostomy placement, hx of cardiogenic shock with PEA arrest, chronic kidney disease, hypertension, diabetes mellitus, atrial fibrillation who was admitted with increased swelling and afib RVR. I was called to see the patient for elevated BUN and creatinine. The patient has a known history of chronic kidney disease and it seems like his baseline creatinine has been in the range of 1.4 to 2.0 and it has increased now at 2.83. Chest Xray noted with pulmonary edema. On ventilator via trach at 40 % FiO2 and weaning trial this morning. Was receiving lasix 40 mg daily which is on hold for elevating renal indices and patient is receiving IVF NS at 100 ml per hour for 1 bag. The patient is not able to give any history because he has a tracheostomy but he is responding to verbal commands and he seems to be fully awake in good spirits. Additional Remarks CPAP underway, no edema, no distress. (Petra Banks) Objective Data Data Vital Signs Date Time Temp Pulse Resp B/P (MAP) Pulse Ox O2 Delivery O2 Flow Rate FiO2 12/15/17 11:10 100 30 12/15/17 10:00 88 12/15/17 08:28 30 12/15/17 08:28 100 35 12/15/17 08:00 30 12/15/17 08:00 99.3 76 25 109/70 (83) 100 12/15/17 08:00 76 12/15/17 06:00 96 12/15/17 04:09 98 35 12/15/17 04:00 95 12/15/17 04:00 30 12/15/17 04:00 100.6 95 22 116/60 (78) 98 12/15/17 02:00 74 12/15/17 01:02 99 35 12/15/17 00:00 82 12/15/17 00:00 30 12/15/17 00:00 99.7 82 23 107/58 (74) 100 12/14/17 22:00 86 12/14/17 20:00 80 12/14/17 20:00 99.1 80 25 101/58 (72) 97 2/10/18 20:00 30 12/14/17 19:42 99 35 12/14/17 16:00 84 12/14/17 16:00 99.3 84 22 107/58 (74) 100 12/14/17 16:00 30 12/14/17 15:08 100 35 12/14/17 14:00 88 12/14/17 12:00 93 12/14/17 12:00 100.8 93 24 140/91 (107) 97 12/14/17 12:00 30 (Petra Banks) -: 12/14/17 1116 12/15/17 0755 Microbiology 12/15/17 Urine Culture, Received Pending (Petra Banks) Physical Exam General Appearance: Obese (Petra BanksP) Eyes Eye Exam: Pupils Equal (Petra BanksP) Neck Neck Remarks trach (Petra Banks) Pulmonary Resp Exam: No Distress, Decreased Bases (Petra BanksP) Cardiology CV Exam: Irregular (Petra BanksP) Gastrointestinal/Abdomen GI Exam: Non-Tender, Bowel Sounds Present (Petra BanksP) Genitourinary Exam: Flank Non-Tender (Petra BanksP) Integumentary Skin Exam: Clear, Warm (Petra BanksP) Extremeties Extremities Exam: Trace Edema (Petra BanksP) Neurologic Neuro Exam: Alert, Awake (Petra BanksP) Psychiatric Psych Exam: Appropriate Responses Psych Remarks Nods to commands (Petra Banks) Assessment/Plan Assessment Summary: CKD Stage III Electrolyte Assessment: Hypernatremia, Hypokalemia Problem List: (1) CKD (chronic kidney disease), stage III ICD Codes: N18.3 - Chronic kidney disease, stage 3 (moderate) Status: Chronic Plan: Likely pre-renal, may have progressed to ATN. Continues to have adequate urinary output Avoid nephrotoxins. On GT feeding- nephro continue to monitor labs and UOP Creatinine at 1.81 UA culture pending Hco3 improving, NaHco3 increased yesterday Hypokalemia on replacement Hypernatremia at 148 consider increasing free water flushes (2) Respiratory failure ICD Codes: J96.90 - Respiratory failure, unspecified, unspecified whether with hypoxia or hypercapnia Plan: CPAP underway (3) Non-ischemic cardiomyopathy ICD Codes: I42.8 - Other cardiomyopathies Status: Chronic Plan: Lasix on hold On metoprolol (4) Paroxysmal atrial fibrillation ICD Codes: I48.0 - Paroxysmal atrial fibrillation Status: Acute Plan: rate controlled metoprolol and Cardizem On Eliquis for anticoagulation (5) Hypokalemia ICD Codes: E87.6 - Hypokalemia Plan: K 3.0 on replacement (6) Seizure ICD Codes: R56.9 - Unspecified convulsions Plan: continue Topamax (7) Hypernatremia ICD Codes: E87.0 - Hyperosmolality and hypernatremia Plan: Na at 148 last check monitor (Petra Banks) Problem List: (1) CKD (chronic kidney disease), stage III ICD Codes: N18.3 - Chronic kidney disease, stage 3 (moderate) Status: Chronic Plan: Likely pre-renal, may have progressed to ATN. Continues to have adequate urinary output Avoid nephrotoxins. On GT feeding- nephro continue to monitor labs and UOP Creatinine at 1.81 UA culture pending Hco3 improving, NaHco3 increased yesterday Hypokalemia on replacement Hypernatremia at 148 consider increasing free water flushes. Patient seen and examined, agree with above. (2) Respiratory failure ICD Codes: J96.90 - Respiratory failure, unspecified, unspecified whether with hypoxia or hypercapnia Plan: CPAP underway (3) Non-ischemic cardiomyopathy ICD Codes: I42.8 - Other cardiomyopathies Status: Chronic Plan: Lasix on hold On metoprolol (4) Paroxysmal atrial fibrillation ICD Codes: I48.0 - Paroxysmal atrial fibrillation Status: Acute Plan: rate controlled metoprolol and Cardizem On Eliquis for anticoagulation (5) Hypokalemia ICD Codes: E87.6 - Hypokalemia Plan: K 3.0 on replacement (6) Seizure ICD Codes: R56.9 - Unspecified convulsions Plan: continue Topamax (7) Hypernatremia ICD Codes: E87.0 - Hyperosmolality and hypernatremia Plan: Na at 148 last check monitor (Rajan Hoyt MD) Petra Banks Dec 15, 2017 11:37 Rajan Hoyt MD Dec 16, 2017 13:00
[2017-12-15] MEDS: oxyCODONE HCL ORAL CONC 5 MG/0.25 ML SYRINGE NG PRN (13:14)
[2017-12-15] MEDS ORDERED: VANCOMYCIN INJ 2,000 MG in SODIUM CHLORID 0.9% 500 ML INJ 500 ML IV ONE (16:00)
[2017-12-15 16:57] LABS: HEMATOCRIT 32.3 % (39.0-51.0); HEMOGLOBIN 10.8 GM/DL (13.0-17.0); MEAN CELL VOLUME 86.3 FL (80.0-100.0); MEAN CORPUSCULAR HEMOGLOBIN 28.9 PG (27.0-34.0); MEAN CORPUSCULAR HGB CONC 33.5 % (32.0-36.0); MEAN PLATELET VOLUME 11.6 FL (7.0-11.0); PLATELET COUNT 145 TH/MM3 (150-450); RED BLOOD COUNT 3.75 MIL/MM3 (4.50-5.90); WHITE BLOOD COUNT 8.9 TH/MM3 (4.0-11.0)
--- NOTE | 2017-12-15 17:28 | HHI.CCPN ---
Subjective Remarks/Hospital Course 57 y/o man with chronic nonischemic cardiomyopathy, EF 20% presents two days ago to ED with a-fib and RVR. Morbid obesity and chronic obesity hypoventilation syndrome. Developed bradycardia requiring atropine this morning , rushed to [facility] where on arrival he is obtunded with agonal respirations. Rate acceptable, depth shallow. Required bag mask ventilation, dopamine and levophed. Unable to intubate despite optic endoscope; proceeded to tracheostomy. Sats maintained > 80% throughout. Initial pH 7.14. 11/17: S/P resuscitation for probable hypercapneic respiratory arrest with bradycardia, hypotension. Has required mechanical ventilation. Perfusion improved after inotropic support instituted, now tapering. Elevated LFTs may reflect period of inadequate perfusion. 11/18: Doing well on T-piece. Resolving shock liver, DENNYS. Should go home with trach. 11/19: Fatigues on CPAP/T-piece. Will need LTAC. 11/20: stable. still volume overloaded by clinical exam. will need LTAC placement. 11/21: Tmax 1.3. Currently 99.9. Remains on PRvC ventilation. NG tube is been resumed. Remains on furosemide 40 mg IV 3 times daily. Heart rate slightly tachycardic 11/22: Pulse intermittently 150. Consistently 120s. Will add PO cardizem and attempt to get better rate control - permanent a-fib. 11/23: Heart rate control improved on po cardizem. Slightly over-diuresed, will back off on lasix. 11/24: Persistent intractable coughing. Low grade fever. Deteriorating renal function. CXR with pulmonary venous congestion but no consolidation or infiltrate. 11/25: Unable to wean ventilator. Hold lasix today, review pending renal function. 11/26: No events over the night. Patient doing well, sat in chair, now back in bed. Good spirits, follows commands. Afebrile. I/O 2444/675. 11/27: No events throughout the night. This AM, patient is resting comfortable. Afebrile, I/O 2537/1350. 11/28: Patient did well through the night. This AM, awake, doing great on PS 5/ 5. Tmax 99.3, I/O 1335/950. 11/29: No events over the night. Patient awake, on CPAP. Tolerated T piece for 8 hours yesterday. Lower urine output over the last few hours. 11/30: No events. Did well on T piece yesterday. Afebrile, I/O . Awake. 12/01: Patient resting comfortable, easily arousable. Afebrile. 12/02: Renal function improving, tolerating diuresis. Heart rate control acceptable. 12/03: Lying in bed. No acute distress follows commands. Renal function stable. UO 1.5 L in 24 hours 12/04: Awake alert, tolerating CPAP. Pulled his NG tube yesterday night, now replaced. Will consult GI for PEG placement. 12/05: Getting ahead on free water. Continue weaning efforts. Remains cooperative, alert. 12/06: Fluid balance about right. Progressing slowly with mobility to stretcher chair and vent weaning. 12/07: Replace electrolytes. Restart TFs when OK with GI. 12/08: Continuing weaning trials - still ventilator dependent. 12/09: Continued vent weaning trials. 12/10: Continue weaning trials. 12/11: Continuing weaning trials. Resting in bed not in any acute distress. 12/12: Remains on mechanical ventilation via tracheostomy. Awake and alert. Daily C Pap trials ongoing. 12/13: no changes. remains on the vent. follows commands. still failing weaning attempts. denied by insurance again for LTAC level care. requires that degree of care, but will be forced to attempt to find long-term vent-capable SNF for patient given limitations in funding. 12/14: unable to wean cpap today, secretions much worse. starting to spike fevers. may have VAP. will send cultures, CXR, cbc, bmp. start vancomycin and cefepime. SUBJECTIVE: 12/15: somewhat improved from yesterday, but still not back on t-piece yet given persistent hypoxia and respiratory failure. sputum growing GNRs, speciation to follow. wbc downtrending. Objective Vital Signs Date Time Temp Pulse Resp B/P (MAP) Pulse Ox O2 Delivery O2 Flow Rate FiO2 12/15/17 16:00 30 12/15/17 16:00 90 12/15/17 16:00 98.2 21 110/55 (73) 98 Intake and Output 12/15/17 12/15/17 12/16/17 08:00 16:00 00:00 Intake Total 1903 ml Output Total 575 ml Balance 1328 ml Result Diagram: 12/15/17 1630 12/15/17 0755 Imaging Last Impressions Chest X-Ray 11/19/17 0000 Signed Impressions: Service Date/Time: Sunday, November 19, 2017 11:33 - CONCLUSION: Improved basilar opacities essentially cleared on the right and minimal residual on the left. Efrain Dimas MD Abdomen X-Ray 11/16/17 0000 Signed Impressions: Service Date/Time: Thursday, November 16, 2017 09:53 - CONCLUSION: Nasogastric tube tip in the region of the distal stomach. Jose Bruno MD Objective Remarks General - middle age gentleman, awake, on vent via trach HEENT - pupils equal, reactive, neck soft, + trach (XLT) - site clean, dry. CV - normal rate, irregular rhythm. No JVD. Chest - equal chest rise. full vent support. secretions thick. Abdomen - soft, obese, non-tender, Extremities - warm, 1+ edema, + peripheral pulses, well perfused. Neuro - awake, alert, follows commands, moves all extremities, nods head to questions, tracks with eyes. A/P Problem List: (1) Acute on chronic respiratory failure with hypoxemia ICD Code: J96.21 - Acute and chronic respiratory failure with hypoxia (2) Symptomatic bradycardia ICD Code: R00.1 - Bradycardia, unspecified Status: Acute (3) Morbid obesity with BMI of 50.0-59.9, adult ICD Code: E66.01 - Morbid (severe) obesity due to excess calories; Z68.43 - Body mass index (BMI) 50-59.9 , adult Status: Acute (4) Atrial fibrillation ICD Code: I48.91 - Unspecified atrial fibrillation Status: Chronic (5) CKD (chronic kidney disease), stage III ICD Code: N18.3 - Chronic kidney disease, stage 3 (moderate) Status: Chronic (6) Chronic systolic CHF (congestive heart failure) ICD Code: I50.22 - Chronic systolic (congestive) heart failure Status: Chronic Assessment and Plan ASSESSMENT: Acute hypercapneic and hypoxic respiratory failure s/p emergent trach - still tolerating T piece during daytime and PS at night Afib/flutter with RVR - rate controlled with cardizem and lopressor Mixed gram negative bronchitis vs pneumonia - afebrile, minimal leukocytosis DENNYS on CKD - slowly improving, good urine output, followed by nephrology Hypokalemia - resolved. NICM with EF 20% Shock liver, likely secondary to hypoperfusion -resolved H/o seizure d/o H/o cardiac arrest DM, Type 2 Possible CHINO/OHS Enterococcus in urine Hypernatremia - better, on free water new respiratory distress fever leukocytosis healthcare associated/ventilator associated pneumonia. PLAN: 1. no t-piece trial today given worsening resp distress 2. sputum culture growing GNRs, await speciation before narrowing spectrum 3. keep vancomycin/cefepime, narrow spectrum once cultures finalize. 4. cbc, bmp 5. cxr 6. vent bundle, nebs, hob elevated 7. wean fio2 for goal spo2 > 90% 8. Electrolyte replacement per protocol 9. OOB to chair, as tolerated 10. On metoprolol and Cardizem. senior care may need to stop Cardizem due to compounding negative inotropy effect. On apixaban 11. Will need FABRICE/ARB and spironolactone once renal function improves 12. Continue statin 13. On topiramate for underlying seizure disorder 14. Glycemic control with insulin sliding scale 15. TF with nepro and free water 16. GI prophylaxis 17. DVT prophylaxis addressed Overall impression: although somewhat improved from yesterday, remains with ventilator associated pneumonia and unable to wean back to trach collar trials as he was previously doing. continue abx and mechanical ventilation. highly complex. organ dysfunction persists. Mmaadou Mcgowan MD Dec 15, 2017 17:28
[2017-12-15] MEDS: ATORVASTATIN 80 MG TAB PO SCH (21:14)
[2017-12-16] VITALS (17 sets, daily range): BP systolic 106–132; BP diastolic 65–85; PULSE 78–106; RESP 19–24; TEMP 98.1–99.5; O2SAT 99–100
[2017-12-16] MEDS: DILTIAZEM HCL 60 MG TAB PO SCH ×5 (00:09→23:46)
[2017-12-16] MEDS: CEFEPIME INJ 1,000 MG in SODIUM CHLORIDE 0.9% INJ 100 ML IV SCH ×3 (01:35→17:26)
[2017-12-16] MEDS: CHLORHEXIDINE GLUCONATE 2 % 1 PACK (2 CLOTHS) TOP SCH ×2 (03:21→19:41)
[2017-12-16] MEDS: ARTIFICIAL TEARS OPTH SOLN 15 ML BTL EACH EYE SCH ×3 (05:24→21:58)
[2017-12-16] MEDS: SODIUM BICARBONATE 650 MG TAB PO SCH ×3 (05:24→21:57)
[2017-12-16] MEDS: INSULIN NovoLIN REGULAR SUPPLEMENTAL SCALE SQ SCH ×5 (05:33→23:45)
[2017-12-16 06:54] LABS: HEMATOCRIT 37.7 % (39.0-51.0); HEMOGLOBIN 12.4 GM/DL (13.0-17.0); MEAN CELL VOLUME 87.6 FL (80.0-100.0); MEAN CORPUSCULAR HEMOGLOBIN 28.8 PG (27.0-34.0); MEAN CORPUSCULAR HGB CONC 32.9 % (32.0-36.0); MEAN PLATELET VOLUME 11.8 FL (7.0-11.0); PLATELET COUNT 140 TH/MM3 (150-450); RED CELL DISTRIBUTION WIDTH 16.4 % (11.6-17.2); WHITE BLOOD COUNT 8.8 TH/MM3 (4.0-11.0)
[2017-12-16 07:17] LABS: BICARBONATE 16.7 MEQ/L (21.0-32.0); CALCIUM 8.7 MG/DL (8.5-10.1); CREATININE 1.81 MG/DL (0.60-1.30)
[2017-12-16] MEDS: CHLORHEXIDINE 0.12% (ORAL KIT) 15 ML CUP MT SCH ×2 (08:11→20:00)
--- NOTE | 2017-12-16 08:32 | HHI.CCPN ---
Subjective Remarks/Hospital Course 57 y/o man with chronic nonischemic cardiomyopathy, EF 20% presents two days ago to ED with a-fib and RVR. Morbid obesity and chronic obesity hypoventilation syndrome. Developed bradycardia requiring atropine this morning , rushed to [facility] where on arrival he is obtunded with agonal respirations. Rate acceptable, depth shallow. Required bag mask ventilation, dopamine and levophed. Unable to intubate despite optic endoscope; proceeded to tracheostomy. Sats maintained > 80% throughout. Initial pH 7.14. 11/17: S/P resuscitation for probable hypercapneic respiratory arrest with bradycardia, hypotension. Has required mechanical ventilation. Perfusion improved after inotropic support instituted, now tapering. Elevated LFTs may reflect period of inadequate perfusion. 11/18: Doing well on T-piece. Resolving shock liver, DENNYS. Should go home with trach. 11/19: Fatigues on CPAP/T-piece. Will need LTAC. 11/20: stable. still volume overloaded by clinical exam. will need LTAC placement. 11/21: Tmax 1.3. Currently 99.9. Remains on PRvC ventilation. NG tube is been resumed. Remains on furosemide 40 mg IV 3 times daily. Heart rate slightly tachycardic 11/22: Pulse intermittently 150. Consistently 120s. Will add PO cardizem and attempt to get better rate control - permanent a-fib. 11/23: Heart rate control improved on po cardizem. Slightly over-diuresed, will back off on lasix. 11/24: Persistent intractable coughing. Low grade fever. Deteriorating renal function. CXR with pulmonary venous congestion but no consolidation or infiltrate. 11/25: Unable to wean ventilator. Hold lasix today, review pending renal function. 11/26: No events over the night. Patient doing well, sat in chair, now back in bed. Good spirits, follows commands. Afebrile. I/O 2444/675. 11/27: No events throughout the night. This AM, patient is resting comfortable. Afebrile, I/O 2537/1350. 11/28: Patient did well through the night. This AM, awake, doing great on PS 5/ 5. Tmax 99.3, I/O 1335/950. 11/29: No events over the night. Patient awake, on CPAP. Tolerated T piece for 8 hours yesterday. Lower urine output over the last few hours. 11/30: No events. Did well on T piece yesterday. Afebrile, I/O . Awake. 12/01: Patient resting comfortable, easily arousable. Afebrile. 12/02: Renal function improving, tolerating diuresis. Heart rate control acceptable. 12/03: Lying in bed. No acute distress follows commands. Renal function stable. UO 1.5 L in 24 hours 12/04: Awake alert, tolerating CPAP. Pulled his NG tube yesterday night, now replaced. Will consult GI for PEG placement. 12/05: Getting ahead on free water. Continue weaning efforts. Remains cooperative, alert. 12/06: Fluid balance about right. Progressing slowly with mobility to stretcher chair and vent weaning. 12/07: Replace electrolytes. Restart TFs when OK with GI. 12/08: Continuing weaning trials - still ventilator dependent. 12/09: Continued vent weaning trials. 12/10: Continue weaning trials. 12/11: Continuing weaning trials. Resting in bed not in any acute distress. 12/12: Remains on mechanical ventilation via tracheostomy. Awake and alert. Daily C Pap trials ongoing. 12/13: no changes. remains on the vent. follows commands. still failing weaning attempts. denied by insurance again for LTAC level care. requires that degree of care, but will be forced to attempt to find long-term vent-capable SNF for patient given limitations in funding. 12/14: unable to wean cpap today, secretions much worse. starting to spike fevers. may have VAP. will send cultures, CXR, cbc, bmp. start vancomycin and cefepime. 12/15: somewhat improved from yesterday, but still not back on t-piece yet given persistent hypoxia and respiratory failure. sputum growing GNRs, speciation to follow. wbc downtrending. SUBJECTIVE: 12/16: wbc downtrending. more awake and alert today. Objective Vital Signs Date Time Temp Pulse Resp B/P (MAP) Pulse Ox O2 Delivery O2 Flow Rate FiO2 12/16/17 06:00 98 12/16/17 04:00 99.3 22 121/70 (87) 100 12/16/17 04:00 30 Intake and Output 12/16/17 12/16/1718 08:00 16:00 00:00 Intake Total 1041 ml Output Total 1100 ml Balance -59 ml Result Diagram: 12/16/1760412/16/17604 Imaging Last Impressions Chest X-Ray 11/19/17 0000 Signed Impressions: Service Date/Time: Sunday, November 19, 2017 11:33 - CONCLUSION: Improved basilar opacities essentially cleared on the right and minimal residual on the left. Efrain Dimas MD Abdomen X-Ray 11/16/17 0000 Signed Impressions: Service Date/Time: Thursday, November 16, 2017 09:53 - CONCLUSION: Nasogastric tube tip in the region of the distal stomach. Jose Bruno MD Objective Remarks General - middle age gentleman, awake, on vent via trach HEENT - pupils equal, reactive, neck soft, + trach (XLT) - site clean, dry. CV - normal rate, irregular rhythm. No JVD. Chest - equal chest rise. full vent support. secretions thick. Abdomen - soft, obese, non-tender, Extremities - warm, 1+ edema, + peripheral pulses, well perfused. Neuro - awake, alert, follows commands, moves all extremities, nods head to questions, tracks with eyes. A/P Problem List: (1) Acute on chronic respiratory failure with hypoxemia ICD Code: J96.21 - Acute and chronic respiratory failure with hypoxia (2) Symptomatic bradycardia ICD Code: R00.1 - Bradycardia, unspecified Status: Acute (3) Morbid obesity with BMI of 50.0-59.9, adult ICD Code: E66.01 - Morbid (severe) obesity due to excess calories; Z68.43 - Body mass index (BMI) 50-59.9 , adult Status: Acute (4) Atrial fibrillation ICD Code: I48.91 - Unspecified atrial fibrillation Status: Chronic (5) CKD (chronic kidney disease), stage III ICD Code: N18.3 - Chronic kidney disease, stage 3 (moderate) Status: Chronic (6) Chronic systolic CHF (congestive heart failure) ICD Code: I50.22 - Chronic systolic (congestive) heart failure Status: Chronic Assessment and Plan ASSESSMENT: Acute hypercapneic and hypoxic respiratory failure s/p emergent trach Afib/flutter with RVR - rate controlled with cardizem and lopressor DENNYS on CKD - slowly improving, good urine output, followed by nephrology Hypokalemia - resolved. NICM with EF 20% Shock liver, likely secondary to hypoperfusion -resolved H/o seizure d/o H/o cardiac arrest DM, Type 2 Possible CHINO/OHS Enterococcus in urine Hypernatremia - better, on free water new respiratory distress fever leukocytosis healthcare associated/ventilator associated pneumonia. PLAN: 1. restart t-piece trials daily. 2. sputum culture growing GNRs, await speciation before narrowing spectrum 3. keep vancomycin/cefepime, narrow spectrum once cultures finalize. 4. cbc, bmp daily 5. vent bundle, nebs, hob elevated 6. wean fio2 for goal spo2 > 90% 7. Electrolyte replacement per protocol 8. OOB to chair, as tolerated 9. On metoprolol and Cardizem. skilled nursing may need to stop Cardizem due to compounding negative inotropy effect. On apixaban 10. Will need FABRICE/ARB and spironolactone once renal function improves 11. Continue statin 12. On topiramate for underlying seizure disorder 13. Glycemic control with insulin sliding scale 14. TF with nepro and free water 15. GI prophylaxis 16. DVT prophylaxis addressed Overall impression: although somewhat improved from yesterday, remains with ventilator associated pneumonia and unable to wean back to trach collar trials as he was previously doing. continue abx and mechanical ventilation. highly complex. organ dysfunction persists. Mamadou Mcgowan MD Dec 16, 2017 08:32
[2017-12-16] MEDS: POLYETHYLENE GLYCOL 17 GM PKG NG SCH ×2 (09:00→19:39)
[2017-12-16] MEDS: DOCUSATE SODIUM 50 MG/SENNA 8.6 MG TAB PO SCH ×2 (09:00→19:40)
--- NOTE | 2017-12-16 10:02 | HHI.NPPN ---
Subjective General Problems: Anemia, Edema, Heart Disease, Obesity Renal Failure: Chronic, Acute, Stage IV History of Present Illness Patient is a 57-year-old -[place] Citizen male with past medical history of seizure disorder, chronic systolic congestive heart failure, hx of respiratory failure requiring tracheostomy placement, hx of cardiogenic shock with PEA arrest, chronic kidney disease, hypertension, diabetes mellitus, atrial fibrillation who was admitted with increased swelling and afib RVR. I was called to see the patient for elevated BUN and creatinine. The patient has a known history of chronic kidney disease and it seems like his baseline creatinine has been in the range of 1.4 to 2.0 and it has increased now at 2.83. Chest Xray noted with pulmonary edema. On ventilator via trach at 40 % FiO2 and weaning trial this morning. Was receiving lasix 40 mg daily which is on hold for elevating renal indices and patient is receiving IVF NS at 100 ml per hour for 1 bag. The patient is not able to give any history because he has a tracheostomy but he is responding to verbal commands and he seems to be fully awake in good spirits. Additional Remarks alert, no edema, no distress. (Petra Banks) Objective Data Data Vital Signs Date Time Temp Pulse Resp B/P (MAP) Pulse Ox O2 Delivery O2 Flow Rate FiO2 12/16/17 08:49 30 12/16/17 08:49 100 30 12/16/17 06:00 98 12/16/17 04:00 106 12/16/17 04:00 99.3 106 22 121/70 (87) 100 12/16/17 04:00 30 12/16/17 03:44 100 30 12/16/17 02:00 80 12/16/17 01:00 99 30 12/16/17 00:00 30 12/16/17 00:00 98.6 86 20 119/65 (83) 100 12/16/17 00:00 86 12/15/17 22:00 86 12/15/17 20:00 99.0 74 22 97/66 (76) 100 12/15/17 20:00 74 12/15/17 20:00 30 12/15/17 19:54 100 30 12/15/17 18:00 85 12/15/17 16:00 30 12/15/17 16:00 90 12/15/17 16:00 98.2 90 21 110/55 (73) 98 12/15/17 15:20 100 30 12/15/17 14:00 87 12/15/17 12:00 30 12/15/17 12:00 98.6 90 25 109/62 (78) 100 12/15/17 12:00 90 12/15/17 11:10 100 30 12/15/17 10:00 88 (Petra Banks) -: 12/16/17 0612/16/17 06 Physical Exam General Appearance: Obese (Petra Banks) Eyes Eye Exam: Pupils Equal (Petra Banks) Neck Neck Remarks trach (Petra BanksP) Pulmonary Resp Exam: No Distress, Decreased Bases (Petra BanksP) Cardiology CV Exam: Irregular (Petra BanksP) Gastrointestinal/Abdomen GI Exam: Non-Tender, Bowel Sounds Present (Petra Banks) Genitourinary Exam: Flank Non-Tender (Petra Banks) Integumentary Skin Exam: Clear, Warm (Petra Banks) Extremeties Extremities Exam: Trace Edema (Petra BanksP) Neurologic Neuro Exam: Alert, Awake (Petra BanksP) Psychiatric Psych Exam: Appropriate Responses Psych Remarks Nods to commands (Petra Banks) Assessment/Plan Assessment Summary: CKD Stage III Electrolyte Assessment: Hypernatremia, Hypokalemia Problem List: (1) CKD (chronic kidney disease), stage III ICD Codes: N18.3 - Chronic kidney disease, stage 3 (moderate) Status: Chronic Plan: Likely pre-renal, may have progressed to ATN. Continues to have adequate urinary output Avoid nephrotoxins. On GT feeding- nephro continue to monitor labs and UOP Creatinine unchanged UA culture pending Hco3 improving Hypokalemia k at 3.2 on replacement (2) Respiratory failure ICD Codes: J96.90 - Respiratory failure, unspecified, unspecified whether with hypoxia or hypercapnia Plan: (3) Non-ischemic cardiomyopathy ICD Codes: I42.8 - Other cardiomyopathies Status: Chronic Plan: Lasix on hold On metoprolol (4) Paroxysmal atrial fibrillation ICD Codes: I48.0 - Paroxysmal atrial fibrillation Status: Acute Plan: rate controlled metoprolol and Cardizem On Eliquis for anticoagulation (5) Hypokalemia ICD Codes: E87.6 - Hypokalemia Plan: K 3.0 on replacement (6) Seizure ICD Codes: R56.9 - Unspecified convulsions Plan: continue Topamax (7) Hypernatremia ICD Codes: E87.0 - Hyperosmolality and hypernatremia Plan: Na at 147 last check monitor (Petra Banks) Problem List: (1) CKD (chronic kidney disease), stage III ICD Codes: N18.3 - Chronic kidney disease, stage 3 (moderate) Status: Chronic Plan: Likely pre-renal, may have progressed to ATN. Continues to have adequate urinary output Avoid nephrotoxins. On GT feeding- nephro continue to monitor labs and UOP Creatinine unchanged UA culture pending Hco3 improving Hypokalemia k at 3.2 on replacement. Patient seen and examined, agree with above. Acidosis improving. (2) Respiratory failure ICD Codes: J96.90 - Respiratory failure, unspecified, unspecified whether with hypoxia or hypercapnia Plan: (3) Non-ischemic cardiomyopathy ICD Codes: I42.8 - Other cardiomyopathies Status: Chronic Plan: Lasix on hold On metoprolol (4) Paroxysmal atrial fibrillation ICD Codes: I48.0 - Paroxysmal atrial fibrillation Status: Acute Plan: rate controlled metoprolol and Cardizem On Eliquis for anticoagulation (5) Hypokalemia ICD Codes: E87.6 - Hypokalemia Plan: K 3.0 on replacement (6) Seizure ICD Codes: R56.9 - Unspecified convulsions Plan: continue Topamax (7) Hypernatremia ICD Codes: E87.0 - Hyperosmolality and hypernatremia Plan: Na at 147 last check monitor (Rajan Hoyt MD) Petra Banks Dec 16, 2017 10:02 Rajan Hoyt MD Dec 16, 2017 15:29
[2017-12-16] MEDS: SODIUM CHLORIDE 0.9% FLUSH 10 ML FLUSH IV FLUSH SCH ×2 (10:14→21:00)
[2017-12-16] MEDS: POTASSIUM CHLORIDE 20 MEQ PWD PACKET NG SCH ×3 (10:14→17:27)
[2017-12-16] MEDS: TOPIRAMATE 200 MG TAB PO SCH (10:15)
[2017-12-16] MEDS: FAMOTIDINE 20 MG TAB NG SCH ×2 (10:15→21:57)
[2017-12-16] MEDS: METOPROLOL TARTRATE 100 MG TAB PO SCH ×2 (10:15→21:57)
[2017-12-16] MEDS: RESP: ALBUTEROL 2.5 MG/3 ML NEB (PRN) NEB (21:49)
[2017-12-16] MEDS: ATORVASTATIN 80 MG TAB PO SCH (21:58)
[2017-12-16] MEDS: cefTRIAXone INJ 2,000 MG in SODIUM CHLORIDE 0.9% INJ 100 ML IV SCH (21:58)
[2017-12-17] VITALS (16 sets, daily range): BP systolic 122–149; BP diastolic 70–90; PULSE 84–102; RESP 16–27; TEMP 98.1–99.7; O2SAT 98–100
[2017-12-17] MEDS: SODIUM BICARBONATE 650 MG TAB PO SCH ×3 (05:52→21:41)
[2017-12-17] MEDS: ARTIFICIAL TEARS OPTH SOLN 15 ML BTL EACH EYE SCH ×3 (05:52→21:42)
[2017-12-17] MEDS: DILTIAZEM HCL 60 MG TAB PO SCH ×3 (05:52→18:02)
[2017-12-17] MEDS: INSULIN NovoLIN REGULAR SUPPLEMENTAL SCALE SQ SCH ×3 (05:52→18:00)
[2017-12-17] MEDS: RESP: ALBUTEROL 2.5 MG/3 ML NEB (PRN) NEB ×2 (07:51→19:32)
[2017-12-17] MEDS: POTASSIUM CHLORIDE 20 MEQ PWD PACKET NG SCH ×3 (08:04→18:03)
[2017-12-17] MEDS: SODIUM CHLORIDE 0.9% FLUSH 10 ML FLUSH IV FLUSH SCH ×2 (08:04→21:00)
[2017-12-17] MEDS: TOPIRAMATE 200 MG TAB PO SCH (08:05)
[2017-12-17] MEDS: METOPROLOL TARTRATE 100 MG TAB PO SCH ×2 (08:05→21:41)
[2017-12-17] MEDS: FAMOTIDINE 20 MG TAB NG SCH ×2 (08:05→21:41)
[2017-12-17] MEDS: POLYETHYLENE GLYCOL 17 GM PKG NG SCH ×2 (09:00→19:25)
[2017-12-17] MEDS: DOCUSATE SODIUM 50 MG/SENNA 8.6 MG TAB PO SCH ×2 (09:00→19:26)
--- NOTE | 2017-12-17 12:40 | HHI.CCPN ---
Subjective Remarks/Hospital Course 57 y/o man with chronic nonischemic cardiomyopathy, EF 20% presents two days ago to ED with a-fib and RVR. Morbid obesity and chronic obesity hypoventilation syndrome. Developed bradycardia requiring atropine this morning , rushed to [facility] where on arrival he is obtunded with agonal respirations. Rate acceptable, depth shallow. Required bag mask ventilation, dopamine and levophed. Unable to intubate despite optic endoscope; proceeded to tracheostomy. Sats maintained > 80% throughout. Initial pH 7.14. 11/17: S/P resuscitation for probable hypercapneic respiratory arrest with bradycardia, hypotension. Has required mechanical ventilation. Perfusion improved after inotropic support instituted, now tapering. Elevated LFTs may reflect period of inadequate perfusion. 11/18: Doing well on T-piece. Resolving shock liver, DENNYS. Should go home with trach. 11/19: Fatigues on CPAP/T-piece. Will need LTAC. 11/20: stable. still volume overloaded by clinical exam. will need LTAC placement. 11/21: Tmax 1.3. Currently 99.9. Remains on PRvC ventilation. NG tube is been resumed. Remains on furosemide 40 mg IV 3 times daily. Heart rate slightly tachycardic 11/22: Pulse intermittently 150. Consistently 120s. Will add PO cardizem and attempt to get better rate control - permanent a-fib. 11/23: Heart rate control improved on po cardizem. Slightly over-diuresed, will back off on lasix. 11/24: Persistent intractable coughing. Low grade fever. Deteriorating renal function. CXR with pulmonary venous congestion but no consolidation or infiltrate. 11/25: Unable to wean ventilator. Hold lasix today, review pending renal function. 11/26: No events over the night. Patient doing well, sat in chair, now back in bed. Good spirits, follows commands. Afebrile. I/O 2444/675. 11/27: No events throughout the night. This AM, patient is resting comfortable. Afebrile, I/O 2537/1350. 11/28: Patient did well through the night. This AM, awake, doing great on PS 5/ 5. Tmax 99.3, I/O 1335/950. 11/29: No events over the night. Patient awake, on CPAP. Tolerated T piece for 8 hours yesterday. Lower urine output over the last few hours. 11/30: No events. Did well on T piece yesterday. Afebrile, I/O . Awake. 12/01: Patient resting comfortable, easily arousable. Afebrile. 12/02: Renal function improving, tolerating diuresis. Heart rate control acceptable. 12/03: Lying in bed. No acute distress follows commands. Renal function stable. UO 1.5 L in 24 hours 12/04: Awake alert, tolerating CPAP. Pulled his NG tube yesterday night, now replaced. Will consult GI for PEG placement. 12/05: Getting ahead on free water. Continue weaning efforts. Remains cooperative, alert. 12/06: Fluid balance about right. Progressing slowly with mobility to stretcher chair and vent weaning. 12/07: Replace electrolytes. Restart TFs when OK with GI. 12/08: Continuing weaning trials - still ventilator dependent. 12/09: Continued vent weaning trials. 12/10: Continue weaning trials. 12/11: Continuing weaning trials. Resting in bed not in any acute distress. 12/12: Remains on mechanical ventilation via tracheostomy. Awake and alert. Daily C Pap trials ongoing. 12/13: no changes. remains on the vent. follows commands. still failing weaning attempts. denied by insurance again for LTAC level care. requires that degree of care, but will be forced to attempt to find long-term vent-capable SNF for patient given limitations in funding. 12/14: unable to wean cpap today, secretions much worse. starting to spike fevers. may have VAP. will send cultures, CXR, cbc, bmp. start vancomycin and cefepime. 12/15: somewhat improved from yesterday, but still not back on t-piece yet given persistent hypoxia and respiratory failure. sputum growing GNRs, speciation to follow. wbc downtrending. 12/16: wbc downtrending. more awake and alert today. SUBJECTIVE: 12/17: Remains on mechanical ventilation via tracheostomy. Daily C Pap trials ongoing. Objective Vital Signs Date Time Temp Pulse Resp B/P (MAP) Pulse Ox O2 Delivery O2 Flow Rate FiO2 12/17/17 10:00 90 12/17/17 09:05 100 T-piece 8.00 40 12/17/17 08:00 99.5 23 130/75 (93) Intake and Output 12/17/17 12/17/17 12/18/17 08:00 16:00 00:00 Intake Total 873 ml Output Total 775 ml Balance 98 ml Result Diagram: 12/16/17 0612/16/17 06 Other Results Microbiology Date/Time Source Procedure Growth Status 12/15/17 07:13 Urine Clean Catch Urine Culture - Final NO GROWTH Complete Imaging Last Impressions Chest X-Ray 11/19/17 0000 Signed Impressions: Service Date/Time: Sunday, November 19, 2017 11:33 - CONCLUSION: Improved basilar opacities essentially cleared on the right and minimal residual on the left. Efrain Dimas MD Abdomen X-Ray 11/16/17 0000 Signed Impressions: Service Date/Time: Thursday, November 16, 2017 09:53 - CONCLUSION: Nasogastric tube tip in the region of the distal stomach. Jose Bruno MD Objective Remarks General - middle age gentleman, awake, on vent via trach HEENT - pupils equal, reactive, neck soft, + trach (XLT) - site clean, dry. CV - normal rate, irregular rhythm. No JVD. Chest - equal chest rise. full vent support. secretions thick. Abdomen - soft, obese, non-tender, Extremities - warm, 1+ edema, + peripheral pulses, well perfused. Neuro - awake, alert, follows commands, moves all extremities, nods head to questions, tracks with eyes. A/P Problem List: (1) Acute on chronic respiratory failure with hypoxemia ICD Code: J96.21 - Acute and chronic respiratory failure with hypoxia (2) Symptomatic bradycardia ICD Code: R00.1 - Bradycardia, unspecified Status: Acute (3) Morbid obesity with BMI of 50.0-59.9, adult ICD Code: E66.01 - Morbid (severe) obesity due to excess calories; Z68.43 - Body mass index (BMI) 50-59.9 , adult Status: Acute (4) Atrial fibrillation ICD Code: I48.91 - Unspecified atrial fibrillation Status: Chronic (5) CKD (chronic kidney disease), stage III ICD Code: N18.3 - Chronic kidney disease, stage 3 (moderate) Status: Chronic (6) Chronic systolic CHF (congestive heart failure) ICD Code: I50.22 - Chronic systolic (congestive) heart failure Status: Chronic Assessment and Plan ASSESSMENT: Acute hypercapneic and hypoxic respiratory failure s/p emergent trach Afib/flutter with RVR - rate controlled with cardizem and lopressor DENNYS on CKD - slowly improving, good urine output, followed by nephrology Hypokalemia - resolved. NICM with EF 20% Shock liver, likely secondary to hypoperfusion -resolved H/o seizure d/o H/o cardiac arrest DM, Type 2 Possible CHINO/OHS Enterococcus in urine Hypernatremia - better, on free water new respiratory distress fever leukocytosis healthcare associated/ventilator associated pneumonia. PLAN: 1. restart t-piece trials daily. 2. sputum culture growing GNRs, await speciation before narrowing spectrum 3. keep vancomycin/cefepime, narrow spectrum once cultures finalize. 4. cbc, bmp daily 5. vent bundle, nebs, hob elevated 6. wean fio2 for goal spo2 > 90% 7. Electrolyte replacement per protocol 8. OOB to chair, as tolerated 9. On metoprolol and Cardizem. custodial may need to stop Cardizem due to compounding negative inotropy effect. On apixaban 10. Will need FABRICE/ARB and spironolactone once renal function improves 11. Continue statin 12. On topiramate for underlying seizure disorder 13. Glycemic control with insulin sliding scale 14. TF with nepro and free water 15. GI prophylaxis 16. DVT prophylaxis addressed Overall impression: although somewhat improved from yesterday, remains with ventilator associated pneumonia and unable to wean back to trach collar trials as he was previously doing. continue abx and mechanical ventilation. highly complex. organ dysfunction persists. Momo Alexander MD Dec 17, 2017 12:40
[2017-12-17 12:52] LABS: HEMATOCRIT 36.7 % (39.0-51.0); HEMOGLOBIN 11.7 GM/DL (13.0-17.0); MEAN CELL VOLUME 87.7 FL (80.0-100.0); MEAN CORPUSCULAR HEMOGLOBIN 28.1 PG (27.0-34.0); MEAN PLATELET VOLUME 11.8 FL (7.0-11.0); PLATELET COUNT 145 TH/MM3 (150-450); RED BLOOD COUNT 4.18 MIL/MM3 (4.50-5.90); RED CELL DISTRIBUTION WIDTH 16.5 % (11.6-17.2); WHITE BLOOD COUNT 9.6 TH/MM3 (4.0-11.0)
[2017-12-17 13:39] LABS: CALCIUM 8.8 MG/DL (8.5-10.1); CREATININE 1.68 MG/DL (0.60-1.30)
[2017-12-17] MEDS: CHLORHEXIDINE GLUCONATE 2 % 1 PACK (2 CLOTHS) TOP SCH (19:26)
--- NOTE | 2017-12-17 19:27 | HHI.NPPN ---
Subjective General Problems: Anemia, Edema, Heart Disease, Obesity Renal Failure: Chronic, Acute, Stage IV History of Present Illness Patient is a 57-year-old -[place] male with past medical history of seizure disorder, chronic systolic congestive heart failure, hx of respiratory failure requiring tracheostomy placement, hx of cardiogenic shock with PEA arrest, chronic kidney disease, hypertension, diabetes mellitus, atrial fibrillation who was admitted with increased swelling and afib RVR. I was called to see the patient for elevated BUN and creatinine. The patient has a known history of chronic kidney disease and it seems like his baseline creatinine has been in the range of 1.4 to 2.0 and it has increased now at 2.83. Chest Xray noted with pulmonary edema. On ventilator via trach at 40 % FiO2 and weaning trial this morning. Was receiving lasix 40 mg daily which is on hold for elevating renal indices and patient is receiving IVF NS at 100 ml per hour for 1 bag. The patient is not able to give any history because he has a tracheostomy but he is responding to verbal commands and he seems to be fully awake in good spirits. Additional Remarks Patient is more sleepy today,not in distress. Objective Data Data 12/17/17 12/18/17 19:00 07:00 Intake Total 777 ml Output Total 425 ml Balance 352 ml Tube Feeding 597 ml Other 180 ml Output Urine Total 425 ml # Bowel Movements 2 Vital Signs Date Time Temp Pulse Resp B/P (MAP) Pulse Ox O2 Delivery O2 Flow Rate FiO2 12/17/17 18:00 92 12/17/17 16:00 93 12/17/17 16:00 98.1 93 16 122/90 (101) 100 12/17/17 14:00 91 12/17/17 12:00 99.3 98 21 122/74 (90) 100 12/17/17 12:00 94 12/17/17 10:00 90 12/17/17 09:05 100 T-piece 8.00 40 12/17/17 08:00 88 12/17/17 08:00 99.5 88 23 130/75 (93) 98 12/17/17 08:00 30 12/17/17 07:52 100 30 12/17/17 07:52 30 12/17/17 06:00 94 12/17/17 04:08 100 30 12/17/17 04:00 88 12/17/17 04:00 99.7 88 27 149/80 (103) 100 12/17/17 04:00 30 12/17/17 02:00 88 12/17/17 00:18 100 30 12/17/17 00:00 99.3 84 27 122/70 (87) 100 12/17/17 00:00 30 12/17/17 00:00 84 12/16/17 22:00 94 12/16/17 21:43 100 30 12/16/17 20:00 99.0 82 22 125/68 (87) 100 12/16/17 20:00 30 12/16/17 20:00 82 -: 12/17/17 1219 12/17/17 1225 Physical Exam General Appearance: Obese Appearance Remarks With Tracheostomy. Eyes Eye Exam: Pupils Equal Pulmonary Resp Exam: No Distress, Decreased Bases Cardiology CV Exam: Irregular Gastrointestinal/Abdomen GI Exam: Non-Tender, Bowel Sounds Present Genitourinary Exam: Flank Non-Tender Integumentary Skin Exam: Clear, Warm Extremeties Extremities Exam: Trace Edema Neurologic Neuro Exam: Alert, Awake Psychiatric Psych Exam: Appropriate Responses Assessment/Plan Assessment Summary: CKD Stage III Electrolyte Assessment: Hypernatremia, Hypokalemia Problem List: (1) CKD (chronic kidney disease), stage III ICD Codes: N18.3 - Chronic kidney disease, stage 3 (moderate) Status: Chronic Plan: Likely pre-renal, may have progressed to ATN. Continues to have adequate urinary output Avoid nephrotoxins. On GT feeding- nephro continue to monitor labs and UOP Creatinine unchanged UA culture pending Hco3 improving Creatinine is better, continue same. (2) Respiratory failure ICD Codes: J96.90 - Respiratory failure, unspecified, unspecified whether with hypoxia or hypercapnia Plan: (3) Non-ischemic cardiomyopathy ICD Codes: I42.8 - Other cardiomyopathies Status: Chronic Plan: Lasix on hold On metoprolol (4) Paroxysmal atrial fibrillation ICD Codes: I48.0 - Paroxysmal atrial fibrillation Status: Acute Plan: rate controlled metoprolol and Cardizem On Eliquis for anticoagulation (5) Hypokalemia ICD Codes: E87.6 - Hypokalemia Plan: K 3.0 on replacement (6) Seizure ICD Codes: R56.9 - Unspecified convulsions Plan: continue Topamax (7) Hypernatremia ICD Codes: E87.0 - Hyperosmolality and hypernatremia Plan: Na at 147 last check monitor Rajan Hoyt MD Dec 17, 2017 19:27
[2017-12-17] MEDS: CHLORHEXIDINE 0.12% (ORAL KIT) 15 ML CUP MT SCH (20:00)
[2017-12-17] MEDS: cefTRIAXone INJ 2,000 MG in SODIUM CHLORIDE 0.9% INJ 100 ML IV SCH (21:41)
[2017-12-17] MEDS: ATORVASTATIN 80 MG TAB PO SCH (21:41)
[2017-12-18] VITALS (15 sets, daily range): BP systolic 117–131; BP diastolic 76–89; PULSE 78–90; RESP 15–31; TEMP 98.2–99.7; O2SAT 98–100
[2017-12-18] MEDS: DILTIAZEM HCL 60 MG TAB PO SCH ×4 (00:34→17:35)
[2017-12-18] MEDS: MORPHINE SULFATE 2 MG/ML INJ IV PUSH PRN (04:29)
[2017-12-18] MEDS: RESP: ALBUTEROL 2.5 MG/3 ML NEB (PRN) NEB (04:45)
[2017-12-18 05:14] LABS: HEMATOCRIT 35.6 % (39.0-51.0); HEMOGLOBIN 11.7 GM/DL (13.0-17.0); MEAN CELL VOLUME 86.7 FL (80.0-100.0); MEAN CORPUSCULAR HEMOGLOBIN 28.5 PG (27.0-34.0); MEAN CORPUSCULAR HGB CONC 32.9 % (32.0-36.0); MEAN PLATELET VOLUME 12.7 FL (7.0-11.0); PLATELET COUNT 156 TH/MM3 (150-450); RED BLOOD COUNT 4.11 MIL/MM3 (4.50-5.90); RED CELL DISTRIBUTION WIDTH 16.2 % (11.6-17.2); WHITE BLOOD COUNT 7.8 TH/MM3 (4.0-11.0)
[2017-12-18 05:22] LABS: CALCIUM 8.6 MG/DL (8.5-10.1); CREATININE 1.61 MG/DL (0.60-1.30)
[2017-12-18] MEDS: SODIUM BICARBONATE 650 MG TAB PO SCH ×3 (06:00→21:53)
[2017-12-18] MEDS: INSULIN NovoLIN REGULAR SUPPLEMENTAL SCALE SQ SCH ×2 (06:00)
[2017-12-18] MEDS: ARTIFICIAL TEARS OPTH SOLN 15 ML BTL EACH EYE SCH ×3 (06:00→21:03)
[2017-12-18] MEDS: CHLORHEXIDINE 0.12% (ORAL KIT) 15 ML CUP MT SCH ×2 (08:00→20:00)
[2017-12-18] MEDS: POLYETHYLENE GLYCOL 17 GM PKG NG SCH ×2 (08:02→19:41)
[2017-12-18] MEDS: DOCUSATE SODIUM 50 MG/SENNA 8.6 MG TAB PO SCH ×2 (08:02→19:41)
[2017-12-18] MEDS: POTASSIUM CHLORIDE 20 MEQ PWD PACKET NG SCH ×3 (09:00→17:35)
[2017-12-18] MEDS: FAMOTIDINE 20 MG TAB NG SCH ×2 (09:45→21:03)
[2017-12-18] MEDS: METOPROLOL TARTRATE 100 MG TAB PO SCH ×2 (09:45→21:03)
[2017-12-18] MEDS: TOPIRAMATE 200 MG TAB PO SCH (09:45)
[2017-12-18] MEDS: SODIUM CHLORIDE 0.9% FLUSH 10 ML FLUSH IV FLUSH SCH ×2 (09:46→21:00)
--- NOTE | 2017-12-18 11:32 | HHI.CCPN ---
Subjective Remarks/Hospital Course 57 y/o man with chronic nonischemic cardiomyopathy, EF 20% presents two days ago to ED with a-fib and RVR. Morbid obesity and chronic obesity hypoventilation syndrome. Developed bradycardia requiring atropine this morning , rushed to [facility] where on arrival he is obtunded with agonal respirations. Rate acceptable, depth shallow. Required bag mask ventilation, dopamine and levophed. Unable to intubate despite optic endoscope; proceeded to tracheostomy. Sats maintained > 80% throughout. Initial pH 7.14. 11/17: S/P resuscitation for probable hypercapneic respiratory arrest with bradycardia, hypotension. Has required mechanical ventilation. Perfusion improved after inotropic support instituted, now tapering. Elevated LFTs may reflect period of inadequate perfusion. 11/18: Doing well on T-piece. Resolving shock liver, DENNYS. Should go home with trach. 11/19: Fatigues on CPAP/T-piece. Will need LTAC. 11/20: stable. still volume overloaded by clinical exam. will need LTAC placement. 11/21: Tmax 1.3. Currently 99.9. Remains on PRvC ventilation. NG tube is been resumed. Remains on furosemide 40 mg IV 3 times daily. Heart rate slightly tachycardic 11/22: Pulse intermittently 150. Consistently 120s. Will add PO cardizem and attempt to get better rate control - permanent a-fib. 11/23: Heart rate control improved on po cardizem. Slightly over-diuresed, will back off on lasix. 11/24: Persistent intractable coughing. Low grade fever. Deteriorating renal function. CXR with pulmonary venous congestion but no consolidation or infiltrate. 11/25: Unable to wean ventilator. Hold lasix today, review pending renal function. 11/26: No events over the night. Patient doing well, sat in chair, now back in bed. Good spirits, follows commands. Afebrile. I/O 2444/675. 11/27: No events throughout the night. This AM, patient is resting comfortable. Afebrile, I/O 2537/1350. 11/28: Patient did well through the night. This AM, awake, doing great on PS 5/ 5. Tmax 99.3, I/O 1335/950. 11/29: No events over the night. Patient awake, on CPAP. Tolerated T piece for 8 hours yesterday. Lower urine output over the last few hours. 11/30: No events. Did well on T piece yesterday. Afebrile, I/O . Awake. 12/01: Patient resting comfortable, easily arousable. Afebrile. 12/02: Renal function improving, tolerating diuresis. Heart rate control acceptable. 12/03: Lying in bed. No acute distress follows commands. Renal function stable. UO 1.5 L in 24 hours 12/04: Awake alert, tolerating CPAP. Pulled his NG tube yesterday night, now replaced. Will consult GI for PEG placement. 12/05: Getting ahead on free water. Continue weaning efforts. Remains cooperative, alert. 12/06: Fluid balance about right. Progressing slowly with mobility to stretcher chair and vent weaning. 12/07: Replace electrolytes. Restart TFs when OK with GI. 12/08: Continuing weaning trials - still ventilator dependent. 12/09: Continued vent weaning trials. 12/10: Continue weaning trials. 12/11: Continuing weaning trials. Resting in bed not in any acute distress. 12/12: Remains on mechanical ventilation via tracheostomy. Awake and alert. Daily C Pap trials ongoing. 12/13: no changes. remains on the vent. follows commands. still failing weaning attempts. denied by insurance again for LTAC level care. requires that degree of care, but will be forced to attempt to find long-term vent-capable SNF for patient given limitations in funding. 12/14: unable to wean cpap today, secretions much worse. starting to spike fevers. may have VAP. will send cultures, CXR, cbc, bmp. start vancomycin and cefepime. 12/15: somewhat improved from yesterday, but still not back on t-piece yet given persistent hypoxia and respiratory failure. sputum growing GNRs, speciation to follow. wbc downtrending. 12/16: wbc downtrending. more awake and alert today. SUBJECTIVE: 12/17: Remains on mechanical ventilation via tracheostomy. Daily C Pap trials ongoing. 12/18: Remains on mechanical ventilation via tracheostomy. Daily C Pap trials Objective Vital Signs Date Time Temp Pulse Resp B/P (MAP) Pulse Ox O2 Delivery O2 Flow Rate FiO2 12/18/17 04:44 100 30 12/18/17 04:00 99.7 90 26 131/89 (103) 12/17/17 09:05 T-piece 8.00 Intake and Output 12/18/17 12/18/17 12/19/17 08:00 16:00 00:00 Intake Total 932 ml Output Total 850 ml Balance 82 ml Result Diagram: 12/18/17 0419 12/18/17 0419 Imaging Last Impressions Chest X-Ray 11/19/17 0000 Signed Impressions: Service Date/Time: Sunday, November 19, 2017 11:33 - CONCLUSION: Improved basilar opacities essentially cleared on the right and minimal residual on the left. Efrain Dimas MD Abdomen X-Ray 11/16/17 0000 Signed Impressions: Service Date/Time: Thursday, November 16, 2017 09:53 - CONCLUSION: Nasogastric tube tip in the region of the distal stomach. Jose Bruno MD Objective Remarks General - middle age gentleman, awake, on vent via trach HEENT - pupils equal, reactive, neck soft, + trach (XLT) - site clean, dry. CV - normal rate, irregular rhythm. No JVD. Chest - equal chest rise. full vent support. secretions thick. Abdomen - soft, obese, non-tender, Extremities - warm, 1+ edema, + peripheral pulses, well perfused. Neuro - awake, alert, follows commands, moves all extremities, nods head to questions, tracks with eyes. A/P Problem List: (1) Acute on chronic respiratory failure with hypoxemia ICD Code: J96.21 - Acute and chronic respiratory failure with hypoxia (2) Symptomatic bradycardia ICD Code: R00.1 - Bradycardia, unspecified Status: Acute (3) Morbid obesity with BMI of 50.0-59.9, adult ICD Code: E66.01 - Morbid (severe) obesity due to excess calories; Z68.43 - Body mass index (BMI) 50-59.9 , adult Status: Acute (4) Atrial fibrillation ICD Code: I48.91 - Unspecified atrial fibrillation Status: Chronic (5) CKD (chronic kidney disease), stage III ICD Code: N18.3 - Chronic kidney disease, stage 3 (moderate) Status: Chronic (6) Chronic systolic CHF (congestive heart failure) ICD Code: I50.22 - Chronic systolic (congestive) heart failure Status: Chronic Assessment and Plan ASSESSMENT: Acute hypercapneic and hypoxic respiratory failure s/p emergent trach Afib/flutter with RVR - rate controlled with cardizem and lopressor DENNYS on CKD - slowly improving, good urine output, followed by nephrology Hypokalemia - resolved. NICM with EF 20% Shock liver, likely secondary to hypoperfusion -resolved H/o seizure d/o H/o cardiac arrest DM, Type 2 Possible CHINO/OHS Enterococcus in urine Hypernatremia - better, on free water new respiratory distress fever leukocytosis healthcare associated/ventilator associated pneumonia. PLAN: 1. restart t-piece trials daily. 2. sputum culture growing GNRs, await speciation before narrowing spectrum 3. keep vancomycin/cefepime, narrow spectrum once cultures finalize. 4. cbc, bmp daily 5. vent bundle, nebs, hob elevated 6. wean fio2 for goal spo2 > 90% 7. Electrolyte replacement per protocol 8. OOB to chair, as tolerated 9. On metoprolol and Cardizem. mission planner may need to stop Cardizem due to compounding negative inotropy effect. On apixaban 10. Will need FABRICE/ARB and spironolactone once renal function improves 11. Continue statin 12. On topiramate for underlying seizure disorder 13. Glycemic control with insulin sliding scale 14. TF with nepro and free water 15. GI prophylaxis 16. DVT prophylaxis addressed Overall impression: although somewhat improved from yesterday, remains with ventilator associated pneumonia and unable to wean back to trach collar trials as he was previously doing. continue abx and mechanical ventilation. highly complex. organ dysfunction persists. Awaiting transfer to vent unit on fourth floor and [place] [facility]. Momo Alexander MD Dec 18, 2017 11:32
[2017-12-18] MEDS: CHLORHEXIDINE GLUCONATE 2 % 1 PACK (2 CLOTHS) TOP SCH (19:41)
[2017-12-18] MEDS: ATORVASTATIN 80 MG TAB PO SCH (21:03)
[2017-12-18] MEDS: cefTRIAXone INJ 2,000 MG in SODIUM CHLORIDE 0.9% INJ 100 ML IV SCH (21:03)
--- NOTE | 2017-12-18 21:14 | HHI.NPPN ---
Subjective General Problems: Anemia, Edema, Heart Disease, Obesity Renal Failure: Chronic, Acute, Stage IV History of Present Illness Patient is a 57-year-old -[place]ian male with past medical history of seizure disorder, chronic systolic congestive heart failure, hx of respiratory failure requiring tracheostomy placement, hx of cardiogenic shock with PEA arrest, chronic kidney disease, hypertension, diabetes mellitus, atrial fibrillation who was admitted with increased swelling and afib RVR. I was called to see the patient for elevated BUN and creatinine. The patient has a known history of chronic kidney disease and it seems like his baseline creatinine has been in the range of 1.4 to 2.0 and it has increased now at 2.83. Chest Xray noted with pulmonary edema. On ventilator via trach at 40 % FiO2 and weaning trial this morning. Was receiving lasix 40 mg daily which is on hold for elevating renal indices and patient is receiving IVF NS at 100 ml per hour for 1 bag. The patient is not able to give any history because he has a tracheostomy but he is responding to verbal commands and he seems to be fully awake in good spirits. Additional Remarks Patient is more sleepy but arousable, remain with T-Piece. Objective Data Data 12/18/17 12/19/17 19:00 07:00 Intake Total 756 ml Output Total 750 ml Balance 6 ml Tube Feeding 576 ml Other 180 ml Output Urine Total 450 ml Stool Total 300 ml Vital Signs Date Time Temp Pulse Resp B/P (MAP) Pulse Ox O2 Delivery O2 Flow Rate FiO2 12/18/17 18:00 84 12/18/17 16:00 88 12/18/17 16:00 35 12/18/17 16:00 98.2 88 15 120/80 (93) 100 12/18/17 14:00 85 12/18/17 12:13 98 T-piece 6.00 35 12/18/17 12:00 78 12/18/17 12:00 30 12/18/17 12:00 98.6 84 31 128/83 (98) 99 12/18/17 10:00 90 12/18/17 08:00 90 12/18/17 08:00 30 12/18/17 08:00 99.0 90 21 127/80 (96) 99 12/18/17 04:44 100 30 12/18/17 04:00 99.7 90 26 131/89 (103) 98 12/18/17 04:00 90 12/18/17 04:00 30 12/18/17 02:00 90 12/18/17 00:17 100 30 12/18/17 00:00 82 12/18/17 00:00 30 12/18/17 00:00 99.3 82 26 121/76 (91) 100 -: 12/18/17 0419 12/18/17 0419 Physical Exam General Appearance: Obese Appearance Remarks With Tracheostomy. Eyes Eye Exam: Pupils Equal Pulmonary Resp Exam: No Distress, Decreased Bases Cardiology CV Exam: Irregular Gastrointestinal/Abdomen GI Exam: Non-Tender, Bowel Sounds Present Genitourinary Exam: Flank Non-Tender Integumentary Skin Exam: Clear, Warm Extremeties Extremities Exam: Trace Edema Neurologic Neuro Exam: Alert, Awake Psychiatric Psych Exam: Appropriate Responses Assessment/Plan Assessment Summary: CKD Stage III Electrolyte Assessment: Hypernatremia, Hypokalemia Problem List: (1) CKD (chronic kidney disease), stage III ICD Codes: N18.3 - Chronic kidney disease, stage 3 (moderate) Status: Chronic Plan: Likely pre-renal, may have progressed to ATN. Continues to have adequate urinary output Avoid nephrotoxins. On GT feeding- nephro continue to monitor labs and UOP Creatinine unchanged UA culture pending Hco3 improving Creatinine is stable at 1.6. K is better. (2) Respiratory failure ICD Codes: J96.90 - Respiratory failure, unspecified, unspecified whether with hypoxia or hypercapnia Plan: (3) Non-ischemic cardiomyopathy ICD Codes: I42.8 - Other cardiomyopathies Status: Chronic Plan: Lasix on hold On metoprolol (4) Paroxysmal atrial fibrillation ICD Codes: I48.0 - Paroxysmal atrial fibrillation Status: Acute Plan: rate controlled metoprolol and Cardizem On Eliquis for anticoagulation (5) Hypokalemia ICD Codes: E87.6 - Hypokalemia Plan: K 3.0 on replacement (6) Seizure ICD Codes: R56.9 - Unspecified convulsions Plan: continue Topamax (7) Hypernatremia ICD Codes: E87.0 - Hyperosmolality and hypernatremia Plan: Na at 147 last check monitor Rajan Hoyt MD Dec 18, 2017 21:14
[2017-12-19] VITALS (17 sets, daily range): BP systolic 125–136; BP diastolic 73–85; PULSE 75–99; RESP 18–21; TEMP 98.4–99.3; O2SAT 98–100
--- NOTE | 2017-12-19 00:02 | PD ---
Physical Exam Narrative The patient was seen and evaluated by me. Case was discussed with and supervised the care given by LOW Agosto. Patient was brought to my attention when noted to be in atrial fibrillation with a rapid ventricular rate , it was refractory to Cardizem 20 mg IV push 2. Patient was given labetalol 10 mg IV push with dramatic improvement patient's rate 60s-70s in atrial fibrillation, patient's blood pressure normalized. Patient felt improved. Patient has had history of somewhat recent admission with a prolonged hospital stay and quite a complicated medical history and complicated medical course. Case was discussed with hospitalist service Dr. Peñaloza and admitted. Hospital setting discussed on admission, patient currently admitted to cardiac telemetry unit, with the understanding the patient may need to be moved to the cardiac care unit/ICU if symptoms recur or patient's condition declines Data Data Orders Orders Electrocardiogram (11/14/17 21:36) Ckmb (Isoenzyme) Profile (11/14/17 21:36) Complete Blood Count With Diff (11/14/17 21:36) Comprehensive Metabolic Panel (11/14/17 21:36) Magnesium (Mg) (11/14/17 21:36) Prothrombin Time / Inr (Pt) (11/14/17 21:36) Act Partial Throm Time (Ptt) (11/14/17 21:36) Troponin I (11/14/17 21:36) Chest, Single Ap (11/14/17 21:36) Ecg Monitoring (11/14/17 21:36) Bilateral Bp Monitoring (11/14/17 21:36) Iv Access Insert/Monitor (11/14/17 21:36) Oximetry (11/14/17 21:36) Oxygen Administration (11/14/17 21:36) Aspirin (Aspirin) (11/14/17 21:45) Sodium Chloride 0.9% Flush (Ns Flush) (11/14/17 21:45) Diltiazem Inj (Cardizem Inj) (11/14/17 21:45) Influenzae A/B Antigen (11/14/17 21:50) Furosemide Inj (Lasix Inj) (11/14/17 22:00) Labetalol Inj (Trandate Inj) (11/14/17 22:15) Electrocardiogram (11/14/17 ) Ondansetron Inj (Zofran Inj) (11/14/17 22:45) CKMB (11/14/17 22:04) CKMB% (11/14/17 22:04) Admit Order (Ed Use Only) (11/15/17 00:01) Labs Laboratory Tests Test 11/14/17 22:04 White Blood Count 4.8 TH/MM3 Red Blood Count 3.98 MIL/MM3 Hemoglobin 11.7 GM/DL Hematocrit 36.6 % Mean Corpuscular Volume 92.0 FL Mean Corpuscular Hemoglobin 29.3 PG Mean Corpuscular Hemoglobin Concent 31.9 % Red Cell Distribution Width 14.6 % Platelet Count 83 TH/MM3 Mean Platelet Volume 12.1 FL Neutrophils (%) (Auto) 61.5 % Lymphocytes (%) (Auto) 21.1 % Monocytes (%) (Auto) 14.0 % Eosinophils (%) (Auto) 2.5 % Basophils (%) (Auto) 0.9 % Neutrophils # (Auto) 3.0 TH/MM3 Lymphocytes # (Auto) 1.0 TH/MM3 Monocytes # (Auto) 0.7 TH/MM3 Eosinophils # (Auto) 0.1 TH/MM3 Basophils # (Auto) 0.0 TH/MM3 CBC Comment AUTO DIFF Differential Comment AUTO DIFF CONFIRMED Platelet Estimate LOW Platelet Morphology Comment ENLARGED Ovalocytes 1+ Prothrombin Time 12.0 SEC Prothromb Time International Ratio 1.2 RATIO Activated Partial Thromboplast Time 28.2 SEC Blood Urea Nitrogen 23 MG/DL Creatinine 1.92 MG/DL Random Glucose 86 MG/DL Total Protein 6.6 GM/DL Albumin 3.3 GM/DL Calcium Level 8.4 MG/DL Magnesium Level 1.8 MG/DL Alkaline Phosphatase 102 U/L Aspartate Amino Transf (AST/SGOT) 18 U/L Alanine Aminotransferase (ALT/SGPT) 21 U/L Total Bilirubin 0.8 MG/DL Sodium Level 143 MEQ/L Potassium Level 4.3 MEQ/L Chloride Level 109 MEQ/L Carbon Dioxide Level 23.5 MEQ/L Anion Gap 11 MEQ/L Estimat Glomerular Filtration Rate 44 ML/MIN Total Creatine Kinase 151 U/L Creatine Kinase MB 1.5 NG/ML Troponin I 0.02 NG/ML [facility] Medical Record Reviewed: Yes Supervised Visit with OCTAVIA: Yes Differential Diagnosis Atrial fibrillation with RVR, chronic edema, chronic CHF, chronic kidney disease Narrative Course See narrative above. Case admitted to hospitalist service Diagnosis Primary Impression: Atrial fibrillation with RVR Admitting Information Admitting Physician Requests: Admit Alexey Canas MD Dec 19, 2017 00:02
[2017-12-19] MEDS: DILTIAZEM HCL 60 MG TAB PO SCH ×5 (00:38→22:55)
[2017-12-19] MEDS: ARTIFICIAL TEARS OPTH SOLN 15 ML BTL EACH EYE SCH ×3 (06:00→20:34)
[2017-12-19 06:01] LABS: HEMATOCRIT 37.3 % (39.0-51.0); MEAN CELL VOLUME 87.6 FL (80.0-100.0); MEAN CORPUSCULAR HEMOGLOBIN 28.1 PG (27.0-34.0); MEAN CORPUSCULAR HGB CONC 32.1 % (32.0-36.0); MEAN PLATELET VOLUME 11.5 FL (7.0-11.0); PLATELET COUNT 133 TH/MM3 (150-450); RED BLOOD COUNT 4.26 MIL/MM3 (4.50-5.90); RED CELL DISTRIBUTION WIDTH 16.7 % (11.6-17.2); WHITE BLOOD COUNT 8.7 TH/MM3 (4.0-11.0)
[2017-12-19] MEDS: SODIUM BICARBONATE 650 MG TAB PO SCH ×3 (06:10→20:33)
[2017-12-19 06:41] LABS: BICARBONATE 16.9 MEQ/L (21.0-32.0); CALCIUM 8.6 MG/DL (8.5-10.1); CREATININE 1.56 MG/DL (0.60-1.30)
[2017-12-19] MEDS: CHLORHEXIDINE 0.12% (ORAL KIT) 15 ML CUP MT SCH ×2 (08:00→20:34)
[2017-12-19] MEDS: POLYETHYLENE GLYCOL 17 GM PKG NG SCH ×2 (08:11→20:34)
[2017-12-19] MEDS: DOCUSATE SODIUM 50 MG/SENNA 8.6 MG TAB PO SCH ×2 (08:11→20:34)
[2017-12-19] MEDS: RESP: ALBUTEROL 2.5 MG/3 ML NEB (PRN) NEB ×2 (08:38→13:57)
[2017-12-19] MEDS: SODIUM CHLORIDE 0.9% FLUSH 10 ML FLUSH IV FLUSH SCH ×2 (09:00→20:34)
[2017-12-19] MEDS: POTASSIUM CHLORIDE 20 MEQ PWD PACKET NG SCH ×3 (09:00→17:28)
[2017-12-19] MEDS: TOPIRAMATE 200 MG TAB PO SCH (10:00)
[2017-12-19] MEDS: METOPROLOL TARTRATE 100 MG TAB PO SCH ×2 (10:00→20:33)
[2017-12-19] MEDS: FAMOTIDINE 20 MG TAB NG SCH ×2 (10:00→20:33)
--- NOTE | 2017-12-19 10:51 | HHI.CCPN ---
Subjective Remarks/Hospital Course 57 y/o man with chronic nonischemic cardiomyopathy, EF 20% presents two days ago to ED with a-fib and RVR. Morbid obesity and chronic obesity hypoventilation syndrome. Developed bradycardia requiring atropine this morning , rushed to [facility] where on arrival he is obtunded with agonal respirations. Rate acceptable, depth shallow. Required bag mask ventilation, dopamine and levophed. Unable to intubate despite optic endoscope; proceeded to tracheostomy. Sats maintained > 80% throughout. Initial pH 7.14. 11/17: S/P resuscitation for probable hypercapneic respiratory arrest with bradycardia, hypotension. Has required mechanical ventilation. Perfusion improved after inotropic support instituted, now tapering. Elevated LFTs may reflect period of inadequate perfusion. 11/18: Doing well on T-piece. Resolving shock liver, DENNYS. Should go home with trach. 11/19: Fatigues on CPAP/T-piece. Will need LTAC. 11/20: stable. still volume overloaded by clinical exam. will need LTAC placement. 11/21: Tmax 1.3. Currently 99.9. Remains on PRvC ventilation. NG tube is been resumed. Remains on furosemide 40 mg IV 3 times daily. Heart rate slightly tachycardic 11/22: Pulse intermittently 150. Consistently 120s. Will add PO cardizem and attempt to get better rate control - permanent a-fib. 11/23: Heart rate control improved on po cardizem. Slightly over-diuresed, will back off on lasix. 11/24: Persistent intractable coughing. Low grade fever. Deteriorating renal function. CXR with pulmonary venous congestion but no consolidation or infiltrate. 11/25: Unable to wean ventilator. Hold lasix today, review pending renal function. 11/26: No events over the night. Patient doing well, sat in chair, now back in bed. Good spirits, follows commands. Afebrile. I/O 2444/675. 11/27: No events throughout the night. This AM, patient is resting comfortable. Afebrile, I/O 2537/1350. 11/28: Patient did well through the night. This AM, awake, doing great on PS 5/ 5. Tmax 99.3, I/O 1335/950. 11/29: No events over the night. Patient awake, on CPAP. Tolerated T piece for 8 hours yesterday. Lower urine output over the last few hours. 11/30: No events. Did well on T piece yesterday. Afebrile, I/O . Awake. 12/01: Patient resting comfortable, easily arousable. Afebrile. 12/02: Renal function improving, tolerating diuresis. Heart rate control acceptable. 12/03: Lying in bed. No acute distress follows commands. Renal function stable. UO 1.5 L in 24 hours 12/04: Awake alert, tolerating CPAP. Pulled his NG tube yesterday night, now replaced. Will consult GI for PEG placement. 12/05: Getting ahead on free water. Continue weaning efforts. Remains cooperative, alert. 12/06: Fluid balance about right. Progressing slowly with mobility to stretcher chair and vent weaning. 12/07: Replace electrolytes. Restart TFs when OK with GI. 12/08: Continuing weaning trials - still ventilator dependent. 12/09: Continued vent weaning trials. 12/10: Continue weaning trials. 12/11: Continuing weaning trials. Resting in bed not in any acute distress. 12/12: Remains on mechanical ventilation via tracheostomy. Awake and alert. Daily C Pap trials ongoing. 12/13: no changes. remains on the vent. follows commands. still failing weaning attempts. denied by insurance again for LTAC level care. requires that degree of care, but will be forced to attempt to find long-term vent-capable SNF for patient given limitations in funding. 12/14: unable to wean cpap today, secretions much worse. starting to spike fevers. may have VAP. will send cultures, CXR, cbc, bmp. start vancomycin and cefepime. 12/15: somewhat improved from yesterday, but still not back on t-piece yet given persistent hypoxia and respiratory failure. sputum growing GNRs, speciation to follow. wbc downtrending. 12/16: wbc downtrending. more awake and alert today. SUBJECTIVE: 12/17: Remains on mechanical ventilation via tracheostomy. Daily C Pap trials ongoing. 12/18: Remains on mechanical ventilation via tracheostomy. Daily C Pap trials 12/19: Remains on mechanical ventilation via tracheostomy. Tolerated TPs during daytime yesterday placed back on C Pap at night. Objective Vital Signs Date Time Temp Pulse Resp B/P (MAP) Pulse Ox O2 Delivery O2 Flow Rate FiO2 12/19/17 08:13 99 30 12/19/17 08:00 99 12/19/17 08:00 99.3 21 130/85 (100) 12/18/17 12:13 T-piece 6.00 Intake and Output 12/19/17 12/19/17 12/20/17 08:00 16:00 00:00 Intake Total 995 ml Output Total 1050 ml Balance -55 ml Result Diagram: 12/19/17 0515 12/19/17 0515 Imaging Last Impressions Chest X-Ray 11/19/17 0000 Signed Impressions: Service Date/Time: Sunday, November 19, 2017 11:33 - CONCLUSION: Improved basilar opacities essentially cleared on the right and minimal residual on the left. Efrain Dimas MD Abdomen X-Ray 11/16/17 0000 Signed Impressions: Service Date/Time: Thursday, November 16, 2017 09:53 - CONCLUSION: Nasogastric tube tip in the region of the distal stomach. Jose Bruno MD Objective Remarks General - middle age gentleman, awake, on vent via trach HEENT - pupils equal, reactive, neck soft, + trach (XLT) - site clean, dry. CV - normal rate, irregular rhythm. No JVD. Chest - equal chest rise. full vent support. secretions thick. Abdomen - soft, obese, non-tender, Extremities - warm, 1+ edema, + peripheral pulses, well perfused. Neuro - awake, alert, follows commands, moves all extremities, nods head to questions, tracks with eyes. A/P Problem List: (1) Acute on chronic respiratory failure with hypoxemia ICD Code: J96.21 - Acute and chronic respiratory failure with hypoxia (2) Symptomatic bradycardia ICD Code: R00.1 - Bradycardia, unspecified Status: Acute (3) Morbid obesity with BMI of 50.0-59.9, adult ICD Code: E66.01 - Morbid (severe) obesity due to excess calories; Z68.43 - Body mass index (BMI) 50-59.9 , adult Status: Acute (4) Atrial fibrillation ICD Code: I48.91 - Unspecified atrial fibrillation Status: Chronic (5) CKD (chronic kidney disease), stage III ICD Code: N18.3 - Chronic kidney disease, stage 3 (moderate) Status: Chronic (6) Chronic systolic CHF (congestive heart failure) ICD Code: I50.22 - Chronic systolic (congestive) heart failure Status: Chronic Assessment and Plan ASSESSMENT: Acute hypercapneic and hypoxic respiratory failure s/p emergent trach Afib/flutter with RVR - rate controlled with cardizem and lopressor DENNYS on CKD - slowly improving, good urine output, followed by nephrology Hypokalemia - resolved. NICM with EF 20% Shock liver, likely secondary to hypoperfusion -resolved H/o seizure d/o H/o cardiac arrest DM, Type 2 Possible CHINO/OHS Enterococcus in urine Hypernatremia - better, on free water new respiratory distress fever leukocytosis healthcare associated/ventilator associated pneumonia. PLAN: 1. t-piece as tolerated. 2. sputum culture growing GNRs, await speciation before narrowing spectrum 3. keep vancomycin/cefepime, narrow spectrum once cultures finalize. 4. cbc, bmp daily 5. vent bundle, nebs, hob elevated 6. wean fio2 for goal spo2 > 90% 7. Electrolyte replacement per protocol 8. OOB to chair, as tolerated 9. On metoprolol and Cardizem. 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 On apixaban 10. Will need FABRICE/ARB and spironolactone once renal function improves 11. Continue statin 12. On topiramate for underlying seizure disorder 13. Glycemic control with insulin sliding scale 14. TF with nepro and free water 15. GI prophylaxis 16. DVT prophylaxis addressed Overall impression: although somewhat improved from yesterday, remains with ventilator associated pneumonia andintermittent trach collar trials as he was previously doing. continue abx and mechanical ventilation as needed. highly complex. organ dysfunction persists. Awaiting transfer to vent unit on fourth floor in [facility]. Momo Alexander MD Dec 19, 2017 10:51
--- NOTE | 2017-12-19 19:03 | HHI.NPPN ---
Subjective General Problems: Anemia, Edema, Heart Disease, Obesity Renal Failure: Chronic, Acute, Stage IV History of Present Illness Patient is a 57-year-old -[place] male with past medical history of seizure disorder, chronic systolic congestive heart failure, hx of respiratory failure requiring tracheostomy placement, hx of cardiogenic shock with PEA arrest, chronic kidney disease, hypertension, diabetes mellitus, atrial fibrillation who was admitted with increased swelling and afib RVR. I was called to see the patient for elevated BUN and creatinine. The patient has a known history of chronic kidney disease and it seems like his baseline creatinine has been in the range of 1.4 to 2.0 and it has increased now at 2.83. Chest Xray noted with pulmonary edema. On ventilator via trach at 40 % FiO2 and weaning trial this morning. Was receiving lasix 40 mg daily which is on hold for elevating renal indices and patient is receiving IVF NS at 100 ml per hour for 1 bag. The patient is not able to give any history because he has a tracheostomy but he is responding to verbal commands and he seems to be fully awake in good spirits. Additional Remarks Patient remain with T-Piece, awake, denies SOB, not in distress. Objective Data Data 12/19/17 12/20/17 18:59 06:59 Intake Total 709 ml Output Total 650 ml Balance 59 ml Tube Feeding 529 ml Other 180 ml Output Urine Total 600 ml Stool Total 50 ml Vital Signs Date Time Temp Pulse Resp B/P (MAP) Pulse Ox O2 Delivery O2 Flow Rate FiO2 12/19/17 18:00 84 12/19/17 16:00 98.4 88 19 136/74 (94) 100 12/19/17 16:00 35 12/19/17 16:00 88 12/19/17 14:00 95 12/19/17 12:00 99.0 88 21 128/73 (91) 100 12/19/17 12:00 88 12/19/17 12:00 35 12/19/17 10:00 98 12/19/17 09:00 99 T-piece 7.00 40 12/19/17 09:00 40 12/19/17 08:13 99 30 12/19/17 08:00 30 12/19/17 08:00 99 12/19/17 08:00 99.3 94 21 130/85 (100) 100 12/19/17 06:00 86 12/19/17 04:26 100 30 12/19/17 04:00 30 12/19/17 04:00 99.0 84 21 126/81 (96) 100 12/19/17 04:00 84 12/19/17 02:00 78 12/19/17 00:12 100 30 12/19/17 00:00 98.6 78 18 132/84 (100) 100 12/19/17 00:00 30 12/19/17 00:00 78 12/18/17 22:00 78 12/18/17 21:50 100 30 12/18/17 20:00 98.6 82 19 117/82 (94) 100 12/18/17 20:00 82 12/18/17 20:00 30 -: 12/19/17 0515 12/19/17 0515 Physical Exam General Appearance: Obese Appearance Remarks With Tracheostomy. Eyes Eye Exam: Pupils Equal Pulmonary Resp Exam: No Distress, Decreased Bases Cardiology CV Exam: Irregular Gastrointestinal/Abdomen GI Exam: Non-Tender, Bowel Sounds Present Genitourinary Exam: Flank Non-Tender Integumentary Skin Exam: Clear, Warm Extremeties Extremities Exam: Trace Edema Neurologic Neuro Exam: Alert, Awake Psychiatric Psych Exam: Appropriate Responses Assessment/Plan Assessment Summary: CKD Stage III Electrolyte Assessment: Hypernatremia, Hypokalemia Problem List: (1) CKD (chronic kidney disease), stage III ICD Codes: N18.3 - Chronic kidney disease, stage 3 (moderate) Status: Chronic Plan: Likely pre-renal, may have progressed to ATN. Continues to have adequate urinary output Avoid nephrotoxins. On GT feeding- nephro continue to monitor labs and UOP Creatinine unchanged UA culture pending Hco3 improving Creatinine is stable at 1.5- 1.6. K is low, on replacement. On NaHco3, avoid Nephrotoxins. (2) Respiratory failure ICD Codes: J96.90 - Respiratory failure, unspecified, unspecified whether with hypoxia or hypercapnia Plan: (3) Non-ischemic cardiomyopathy ICD Codes: I42.8 - Other cardiomyopathies Status: Chronic Plan: Lasix on hold On metoprolol (4) Paroxysmal atrial fibrillation ICD Codes: I48.0 - Paroxysmal atrial fibrillation Status: Acute Plan: rate controlled metoprolol and Cardizem On Eliquis for anticoagulation (5) Hypokalemia ICD Codes: E87.6 - Hypokalemia Plan: K 3.0 on replacement (6) Seizure ICD Codes: R56.9 - Unspecified convulsions Plan: continue Topamax (7) Hypernatremia ICD Codes: E87.0 - Hyperosmolality and hypernatremia Plan: Na at 147 last check monitor Rajan Hoyt MD Dec 19, 2017 19:02
[2017-12-19] MEDS: cefTRIAXone INJ 2,000 MG in SODIUM CHLORIDE 0.9% INJ 100 ML IV SCH (20:33)
[2017-12-19] MEDS: ATORVASTATIN 80 MG TAB PO SCH (20:33)
[2017-12-20] VITALS (14 sets, daily range): BP systolic 122–148; BP diastolic 76–98; PULSE 68–103; RESP 16–23; TEMP 98.1–99; O2SAT 100
[2017-12-20] MEDS: CHLORHEXIDINE GLUCONATE 2 % 1 PACK (2 CLOTHS) TOP SCH (04:00)
[2017-12-20] MEDS: DILTIAZEM HCL 60 MG TAB PO SCH ×3 (04:31→17:54)
[2017-12-20] MEDS: SODIUM BICARBONATE 650 MG TAB PO SCH ×3 (04:31→20:12)
[2017-12-20] MEDS: ARTIFICIAL TEARS OPTH SOLN 15 ML BTL EACH EYE SCH ×3 (04:32→20:11)
[2017-12-20 05:35] LABS: HEMATOCRIT 42.2 % (39.0-51.0); HEMOGLOBIN 13.3 GM/DL (13.0-17.0); MEAN CELL VOLUME 89.5 FL (80.0-100.0); MEAN CORPUSCULAR HEMOGLOBIN 28.1 PG (27.0-34.0); MEAN CORPUSCULAR HGB CONC 31.4 % (32.0-36.0); MEAN PLATELET VOLUME 11.3 FL (7.0-11.0); PLATELET COUNT 147 TH/MM3 (150-450); RED BLOOD COUNT 4.71 MIL/MM3 (4.50-5.90); RED CELL DISTRIBUTION WIDTH 16.8 % (11.6-17.2); WHITE BLOOD COUNT 11.2 TH/MM3 (4.0-11.0)
[2017-12-20 05:49] LABS: BICARBONATE 18.3 MEQ/L (21.0-32.0); CALCIUM 8.8 MG/DL (8.5-10.1); CREATININE 1.57 MG/DL (0.60-1.30)
[2017-12-20] MEDS: CHLORHEXIDINE 0.12% (ORAL KIT) 15 ML CUP MT SCH ×2 (08:00→20:10)
--- NOTE | 2017-12-20 08:19 | HHI.CCPN ---
Subjective Remarks/Hospital Course 57 y/o man with chronic nonischemic cardiomyopathy, EF 20% presents two days ago to ED with a-fib and RVR. Morbid obesity and chronic obesity hypoventilation syndrome. Developed bradycardia requiring atropine this morning , rushed to [facility] where on arrival he is obtunded with agonal respirations. Rate acceptable, depth shallow. Required bag mask ventilation, dopamine and levophed. Unable to intubate despite optic endoscope; proceeded to tracheostomy. Sats maintained > 80% throughout. Initial pH 7.14. 11/17: S/P resuscitation for probable hypercapneic respiratory arrest with bradycardia, hypotension. Has required mechanical ventilation. Perfusion improved after inotropic support instituted, now tapering. Elevated LFTs may reflect period of inadequate perfusion. 11/18: Doing well on T-piece. Resolving shock liver, DENNYS. Should go home with trach. 11/19: Fatigues on CPAP/T-piece. Will need LTAC. 11/20: stable. still volume overloaded by clinical exam. will need LTAC placement. 11/21: Tmax 1.3. Currently 99.9. Remains on PRvC ventilation. NG tube is been resumed. Remains on furosemide 40 mg IV 3 times daily. Heart rate slightly tachycardic 11/22: Pulse intermittently 150. Consistently 120s. Will add PO cardizem and attempt to get better rate control - permanent a-fib. 11/23: Heart rate control improved on po cardizem. Slightly over-diuresed, will back off on lasix. 11/24: Persistent intractable coughing. Low grade fever. Deteriorating renal function. CXR with pulmonary venous congestion but no consolidation or infiltrate. 11/25: Unable to wean ventilator. Hold lasix today, review pending renal function. 11/26: No events over the night. Patient doing well, sat in chair, now back in bed. Good spirits, follows commands. Afebrile. I/O 2444/675. 11/27: No events throughout the night. This AM, patient is resting comfortable. Afebrile, I/O 2537/1350. 11/28: Patient did well through the night. This AM, awake, doing great on PS 5/ 5. Tmax 99.3, I/O 1335/950. 11/29: No events over the night. Patient awake, on CPAP. Tolerated T piece for 8 hours yesterday. Lower urine output over the last few hours. 11/30: No events. Did well on T piece yesterday. Afebrile, I/O . Awake. 12/01: Patient resting comfortable, easily arousable. Afebrile. 12/02: Renal function improving, tolerating diuresis. Heart rate control acceptable. 12/03: Lying in bed. No acute distress follows commands. Renal function stable. UO 1.5 L in 24 hours 12/04: Awake alert, tolerating CPAP. Pulled his NG tube yesterday night, now replaced. Will consult GI for PEG placement. 12/05: Getting ahead on free water. Continue weaning efforts. Remains cooperative, alert. 12/06: Fluid balance about right. Progressing slowly with mobility to stretcher chair and vent weaning. 12/07: Replace electrolytes. Restart TFs when OK with GI. 12/08: Continuing weaning trials - still ventilator dependent. 12/09: Continued vent weaning trials. 12/10: Continue weaning trials. 12/11: Continuing weaning trials. Resting in bed not in any acute distress. 12/12: Remains on mechanical ventilation via tracheostomy. Awake and alert. Daily C Pap trials ongoing. 12/13: no changes. remains on the vent. follows commands. still failing weaning attempts. denied by insurance again for LTAC level care. requires that degree of care, but will be forced to attempt to find long-term vent-capable SNF for patient given limitations in funding. 12/14: unable to wean cpap today, secretions much worse. starting to spike fevers. may have VAP. will send cultures, CXR, cbc, bmp. start vancomycin and cefepime. 12/15: somewhat improved from yesterday, but still not back on t-piece yet given persistent hypoxia and respiratory failure. sputum growing GNRs, speciation to follow. wbc downtrending. 12/16: wbc downtrending. more awake and alert today. SUBJECTIVE: 12/17: Remains on mechanical ventilation via tracheostomy. Daily C Pap trials ongoing. 12/18: Remains on mechanical ventilation via tracheostomy. Daily C Pap trials 12/19: Remains on mechanical ventilation via tracheostomy. Tolerated TPs during daytime yesterday placed back on C Pap at night. 12/20: Tolerating T-piece. Ready for long-term vent unit. Objective Vital Signs Date Time Temp Pulse Resp B/P (MAP) Pulse Ox O2 Delivery O2 Flow Rate FiO2 12/20/17 07:33 100 T-piece 40 12/20/17 06:00 68 12/20/17 04:00 99.0 16 148/98 (115) 12/19/17 09:00 7.00 Intake and Output 12/20/17 12/20/17 12/21/17 08:00 16:00 00:00 Intake Total 881 ml Output Total 1550 ml Balance -669 ml Result Diagram: 12/20/17 0503 12/20/17 0503 Imaging Last Impressions Chest X-Ray 11/19/17 0000 Signed Impressions: Service Date/Time: Sunday, November 19, 2017 11:33 - CONCLUSION: Improved basilar opacities essentially cleared on the right and minimal residual on the left. Efrain Dimas MD Abdomen X-Ray 11/16/17 0000 Signed Impressions: Service Date/Time: Thursday, November 16, 2017 09:53 - CONCLUSION: Nasogastric tube tip in the region of the distal stomach. Jose Bruno MD Objective Remarks General - middle age gentleman, awake, on T-piece via trach HEENT - pupils equal, reactive, neck soft, + trach (XLT) - site clean, dry. CV - normal rate, irregular rhythm. No JVD. Chest - equal chest rise. full vent support. secretions numerous. Abdomen - soft, obese, non-tender, BS active. Extremities - warm, 1+ edema, + peripheral pulses, well perfused. Neuro - awake, alert, follows commands, moves all extremities, nods head yes and no to questions, tracks with eyes. A/P Problem List: (1) Acute on chronic respiratory failure with hypoxemia ICD Code: J96.21 - Acute and chronic respiratory failure with hypoxia (2) Symptomatic bradycardia ICD Code: R00.1 - Bradycardia, unspecified Status: Acute (3) Morbid obesity with BMI of 50.0-59.9, adult ICD Code: E66.01 - Morbid (severe) obesity due to excess calories; Z68.43 - Body mass index (BMI) 50-59.9 , adult Status: Acute (4) Atrial fibrillation ICD Code: I48.91 - Unspecified atrial fibrillation Status: Chronic (5) CKD (chronic kidney disease), stage III ICD Code: N18.3 - Chronic kidney disease, stage 3 (moderate) Status: Chronic (6) Chronic systolic CHF (congestive heart failure) ICD Code: I50.22 - Chronic systolic (congestive) heart failure Status: Chronic Assessment and Plan ASSESSMENT: Acute hypercapneic and hypoxic respiratory failure s/p emergent trach Afib/flutter with RVR - rate controlled with cardizem and lopressor DENNYS on CKD - slowly improving, good urine output, followed by nephrology Hypokalemia - resolved. NICM with EF 20% Shock liver, likely secondary to hypoperfusion -resolved H/o seizure d/o H/o cardiac arrest DM, Type 2 Possible CHINO/OHS Enterococcus in urine Hypernatremia - better, on free water new respiratory distress fever leukocytosis healthcare associated/ventilator associated pneumonia. PLAN: 1. t-piece as tolerated. 2. sputum culture growing GNRs, await speciation before narrowing spectrum 3. keep vancomycin/cefepime, narrow spectrum once cultures finalize. 4. cbc, bmp daily 5. vent bundle, nebs, hob elevated 6. wean fio2 for goal spo2 > 90% 7. Electrolyte replacement per protocol 8. OOB to chair, as tolerated 9. On metoprolol and Cardizem. 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 On apixaban 10. Will need FABRICE/ARB and spironolactone once renal function improves 11. Continue statin 12. On topiramate for underlying seizure disorder 13. Glycemic control with insulin sliding scale 14. TF with nepro and free water 15. GI prophylaxis 16. DVT prophylaxis addressed Overall impression: Continue abx and mechanical ventilation as needed. Organ dysfunction persists. Baseline EF 20% range and easily develops pulmonary edema. Awaiting transfer to vent unit on fourth floor in [facility]. Sohail Ma MD Dec 20, 2017 08:19
[2017-12-20] MEDS: FAMOTIDINE 20 MG TAB NG SCH ×2 (08:26→20:09)
[2017-12-20] MEDS: DOCUSATE SODIUM 50 MG/SENNA 8.6 MG TAB PO SCH ×2 (08:27→20:10)
[2017-12-20] MEDS: TOPIRAMATE 200 MG TAB PO SCH (08:27)
[2017-12-20] MEDS: SODIUM CHLORIDE 0.9% FLUSH 10 ML FLUSH IV FLUSH SCH ×2 (08:27→20:10)
[2017-12-20] MEDS: POTASSIUM CHLORIDE 20 MEQ PWD PACKET NG SCH ×3 (08:27→17:54)
[2017-12-20] MEDS: POLYETHYLENE GLYCOL 17 GM PKG NG SCH ×2 (08:27→20:10)
[2017-12-20] MEDS: METOPROLOL TARTRATE 100 MG TAB PO SCH ×2 (08:27→20:09)
--- NOTE | 2017-12-20 12:45 | HHI.NPPN ---
Subjective General Problems: Anemia, Edema, Heart Disease, Obesity Renal Failure: Chronic, Acute, Stage IV History of Present Illness Patient is a 57-year-old -[place] male with past medical history of seizure disorder, chronic systolic congestive heart failure, hx of respiratory failure requiring tracheostomy placement, hx of cardiogenic shock with PEA arrest, chronic kidney disease, hypertension, diabetes mellitus, atrial fibrillation who was admitted with increased swelling and afib RVR. I was called to see the patient for elevated BUN and creatinine. The patient has a known history of chronic kidney disease and it seems like his baseline creatinine has been in the range of 1.4 to 2.0 and it has increased now at 2.83. Chest Xray noted with pulmonary edema. On ventilator via trach at 40 % FiO2 and weaning trial this morning. Was receiving lasix 40 mg daily which is on hold for elevating renal indices and patient is receiving IVF NS at 100 ml per hour for 1 bag. The patient is not able to give any history because he has a tracheostomy but he is responding to verbal commands and he seems to be fully awake in good spirits. Additional Remarks Patient remain with T-Piece, awake, denies SOB, not in distress. Unchanged (Petra Banks) Objective Data Data Vital Signs Date Time Temp Pulse Resp B/P (MAP) Pulse Ox O2 Delivery O2 Flow Rate FiO2 12/20/17 10:00 93 12/20/17 08:00 98.7 96 20 129/85 (100) 100 12/20/17 08:00 35 12/20/17 08:00 94 12/20/17 07:33 100 T-piece 40 12/20/17 06:00 68 12/20/17 04:00 35 12/20/17 04:00 99.0 76 16 148/98 (115) 100 12/20/17 04:00 76 12/20/17 02:00 75 12/20/17 00:00 98.6 70 18 129/76 (93) 100 12/20/17 00:00 70 12/20/17 00:00 35 12/19/17 22:00 75 12/19/17 20:14 98 T-piece 40 12/19/17 20:00 35 12/19/17 20:00 98.4 78 20 125/79 (94) 99 12/19/17 20:00 78 12/19/17 18:00 84 12/19/17 16:00 98.4 88 19 136/74 (94) 100 12/19/17 16:00 35 12/19/17 16:00 88 12/19/17 14:00 95 (Petra Banks) -: 12/20/17 0503 12/20/17 0503 Physical Exam General Appearance: Obese (Petra Banks) Eyes Eye Exam: Pupils Equal (Petra Banks) Neck Neck Remarks trach (Petra Banks) Pulmonary Resp Exam: No Distress, Decreased Bases (Petra Banks) Cardiology CV Exam: Irregular (Petra Banks) Gastrointestinal/Abdomen GI Exam: Non-Tender, Bowel Sounds Present (Petra Banks) Genitourinary Exam: Flank Non-Tender (Petra Banks) Integumentary Skin Exam: Clear, Warm (Petra Banks) Extremeties Extremities Exam: Trace Edema (Petra Banks) Neurologic Neuro Exam: Alert, Awake (Petra Banks) Psychiatric Psych Exam: Appropriate Responses Psych Remarks Nods to commands (Petra Banks) Assessment/Plan Assessment Summary: CKD Stage III Electrolyte Assessment: Hypernatremia, Hypokalemia Problem List: (1) CKD (chronic kidney disease), stage III ICD Codes: N18.3 - Chronic kidney disease, stage 3 (moderate) Status: Chronic Plan: Likely pre-renal, may have progressed to ATN. Continues to have adequate urinary output Avoid nephrotoxins. On GT feeding- nephro continue to monitor labs and UOP Creatinine unchanged Creatinine is stable at 1.5- 1.6. K is low, on replacement. On NaHco3, avoid Nephrotoxins. (2) Respiratory failure ICD Codes: J96.90 - Respiratory failure, unspecified, unspecified whether with hypoxia or hypercapnia Plan: (3) Non-ischemic cardiomyopathy ICD Codes: I42.8 - Other cardiomyopathies Status: Chronic Plan: Lasix on hold On metoprolol (4) Paroxysmal atrial fibrillation ICD Codes: I48.0 - Paroxysmal atrial fibrillation Status: Acute Plan: rate controlled metoprolol and Cardizem On Eliquis for anticoagulation (5) Hypokalemia ICD Codes: E87.6 - Hypokalemia Plan: K 3.0 on replacement (6) Seizure ICD Codes: R56.9 - Unspecified convulsions Plan: continue Topamax (7) Hypernatremia ICD Codes: E87.0 - Hyperosmolality and hypernatremia Plan: Na at 147 last check monitor (Petra Banks) Problem List: (1) CKD (chronic kidney disease), stage III ICD Codes: N18.3 - Chronic kidney disease, stage 3 (moderate) Status: Chronic Plan: Likely pre-renal, may have progressed to ATN. Continues to have adequate urinary output Avoid nephrotoxins. On GT feeding- nephro continue to monitor labs and UOP Creatinine unchanged Creatinine is stable at 1.5- 1.6. K is low, on replacement. On NaHco3, avoid Nephrotoxins. Patient seen and examined, agree with above. (2) Respiratory failure ICD Codes: J96.90 - Respiratory failure, unspecified, unspecified whether with hypoxia or hypercapnia Plan: (3) Non-ischemic cardiomyopathy ICD Codes: I42.8 - Other cardiomyopathies Status: Chronic Plan: Lasix on hold On metoprolol (4) Paroxysmal atrial fibrillation ICD Codes: I48.0 - Paroxysmal atrial fibrillation Status: Acute Plan: rate controlled metoprolol and Cardizem On Eliquis for anticoagulation (5) Hypokalemia ICD Codes: E87.6 - Hypokalemia Plan: K 3.0 on replacement (6) Seizure ICD Codes: R56.9 - Unspecified convulsions Plan: continue Topamax (7) Hypernatremia ICD Codes: E87.0 - Hyperosmolality and hypernatremia Plan: Na at 147 last check monitor (Rajan Hoyt MD) Petra Banks Dec 20, 2017 12:45 Rajan Hoyt MD Dec 20, 2017 21:01
[2017-12-20] MEDS: RESP: ALBUTEROL 2.5 MG/3 ML NEB (PRN) NEB (15:11)
[2017-12-20] MEDS: ATORVASTATIN 80 MG TAB PO SCH (20:09)
[2017-12-21] VITALS: BP 142/81; PULSE 88; RESP 18; TEMP 99; O2SAT 100
[2017-12-21 02:00] VITALS: PULSE 90
[2017-12-21] MEDS: DILTIAZEM HCL 60 MG TAB PO SCH ×2 (02:04→04:51)
[2017-12-21] MEDS: CHLORHEXIDINE GLUCONATE 2 % 1 PACK (2 CLOTHS) TOP SCH (02:04)
[2017-12-21 04:00] VITALS: BP 126/92; PULSE 76; RESP 20; TEMP 99.3; O2SAT 100
[2017-12-21 04:23] LABS: HEMOGLOBIN 12.2 GM/DL (13.0-17.0); MEAN CELL VOLUME 87.9 FL (80.0-100.0); MEAN CORPUSCULAR HEMOGLOBIN 28.2 PG (27.0-34.0); MEAN PLATELET VOLUME 12.1 FL (7.0-11.0); PLATELET COUNT 133 TH/MM3 (150-450); RED BLOOD COUNT 4.33 MIL/MM3 (4.50-5.90); WHITE BLOOD COUNT 9.9 TH/MM3 (4.0-11.0)
[2017-12-21 04:48] LABS: BICARBONATE 18.1 MEQ/L (21.0-32.0); CALCIUM 8.5 MG/DL (8.5-10.1); CREATININE 1.49 MG/DL (0.60-1.30)
[2017-12-21] MEDS: SODIUM BICARBONATE 650 MG TAB PO SCH (04:51)
[2017-12-21] MEDS: ARTIFICIAL TEARS OPTH SOLN 15 ML BTL EACH EYE SCH (04:51)
[2017-12-21 06:00] VITALS: PULSE 76
[2017-12-21 08:00] VITALS: BP 147/86; PULSE 91; RESP 14; TEMP 99.7; O2SAT 99
[2017-12-21] MEDS: CHLORHEXIDINE 0.12% (ORAL KIT) 15 ML CUP MT SCH (08:00)
--- NOTE | 2017-12-21 08:07 | HHI.CCPN ---
Subjective Remarks/Hospital Course 57 y/o man with chronic nonischemic cardiomyopathy, EF 20% presents two days ago to ED with a-fib and RVR. Morbid obesity and chronic obesity hypoventilation syndrome. Developed bradycardia requiring atropine this morning , rushed to [facility] where on arrival he is obtunded with agonal respirations. Rate acceptable, depth shallow. Required bag mask ventilation, dopamine and levophed. Unable to intubate despite optic endoscope; proceeded to tracheostomy. Sats maintained > 80% throughout. Initial pH 7.14. 11/17: S/P resuscitation for probable hypercapneic respiratory arrest with bradycardia, hypotension. Has required mechanical ventilation. Perfusion improved after inotropic support instituted, now tapering. Elevated LFTs may reflect period of inadequate perfusion. 11/18: Doing well on T-piece. Resolving shock liver, DENNYS. Should go home with trach. 11/19: Fatigues on CPAP/T-piece. Will need LTAC. 11/20: stable. still volume overloaded by clinical exam. will need LTAC placement. 11/21: Tmax 1.3. Currently 99.9. Remains on PRvC ventilation. NG tube is been resumed. Remains on furosemide 40 mg IV 3 times daily. Heart rate slightly tachycardic 11/22: Pulse intermittently 150. Consistently 120s. Will add PO cardizem and attempt to get better rate control - permanent a-fib. 11/23: Heart rate control improved on po cardizem. Slightly over-diuresed, will back off on lasix. 11/24: Persistent intractable coughing. Low grade fever. Deteriorating renal function. CXR with pulmonary venous congestion but no consolidation or infiltrate. 11/25: Unable to wean ventilator. Hold lasix today, review pending renal function. 11/26: No events over the night. Patient doing well, sat in chair, now back in bed. Good spirits, follows commands. Afebrile. I/O 2444/675. 11/27: No events throughout the night. This AM, patient is resting comfortable. Afebrile, I/O 2537/1350. 11/28: Patient did well through the night. This AM, awake, doing great on PS 5/ 5. Tmax 99.3, I/O 1335/950. 11/29: No events over the night. Patient awake, on CPAP. Tolerated T piece for 8 hours yesterday. Lower urine output over the last few hours. 11/30: No events. Did well on T piece yesterday. Afebrile, I/O . Awake. 12/01: Patient resting comfortable, easily arousable. Afebrile. 12/02: Renal function improving, tolerating diuresis. Heart rate control acceptable. 12/03: Lying in bed. No acute distress follows commands. Renal function stable. UO 1.5 L in 24 hours 12/04: Awake alert, tolerating CPAP. Pulled his NG tube yesterday night, now replaced. Will consult GI for PEG placement. 12/05: Getting ahead on free water. Continue weaning efforts. Remains cooperative, alert. 12/06: Fluid balance about right. Progressing slowly with mobility to stretcher chair and vent weaning. 12/07: Replace electrolytes. Restart TFs when OK with GI. 12/08: Continuing weaning trials - still ventilator dependent. 12/09: Continued vent weaning trials. 12/10: Continue weaning trials. 12/11: Continuing weaning trials. Resting in bed not in any acute distress. 12/12: Remains on mechanical ventilation via tracheostomy. Awake and alert. Daily C Pap trials ongoing. 12/13: no changes. remains on the vent. follows commands. still failing weaning attempts. denied by insurance again for LTAC level care. requires that degree of care, but will be forced to attempt to find long-term vent-capable SNF for patient given limitations in funding. 12/14: unable to wean cpap today, secretions much worse. starting to spike fevers. may have VAP. will send cultures, CXR, cbc, bmp. start vancomycin and cefepime. 12/15: somewhat improved from yesterday, but still not back on t-piece yet given persistent hypoxia and respiratory failure. sputum growing GNRs, speciation to follow. wbc downtrending. 12/16: wbc downtrending. more awake and alert today. SUBJECTIVE: 12/17: Remains on mechanical ventilation via tracheostomy. Daily C Pap trials ongoing. 12/18: Remains on mechanical ventilation via tracheostomy. Daily C Pap trials 12/19: Remains on mechanical ventilation via tracheostomy. Tolerated TPs during daytime yesterday placed back on C Pap at night. 12/20: Tolerating T-piece. Ready for long-term vent unit. 12/21: Still requiring ventilator support at night. Objective Vital Signs Date Time Temp Pulse Resp B/P (MAP) Pulse Ox O2 Delivery O2 Flow Rate FiO2 12/21/17 06:00 76 12/21/17 04:00 99.3 20 126/92 (103) 100 12/21/17 04:00 35 12/20/17 23:10 T-piece 6.00 Intake and Output 12/21/17 12/21/17 12/22/17 08:00 16:00 00:00 Intake Total 1100 ml Output Total 950 ml Balance 150 ml Result Diagram: 12/21/17 0359 12/21/17 0359 Imaging Last Impressions Chest X-Ray 11/19/17 0000 Signed Impressions: Service Date/Time: Sunday, November 19, 2017 11:33 - CONCLUSION: Improved basilar opacities essentially cleared on the right and minimal residual on the left. Efrain Dimas MD Abdomen X-Ray 11/16/17 0000 Signed Impressions: Service Date/Time: Thursday, November 16, 2017 09:53 - CONCLUSION: Nasogastric tube tip in the region of the distal stomach. Jose Bruno MD Objective Remarks General - middle age gentleman, awake, on T-piece via trach HEENT - pupils equal, reactive, neck soft, + trach (XLT) - site clean, dry. CV - normal rate, irregular rhythm. No JVD. Chest - equal chest rise. full vent support. secretions numerous. Abdomen - soft, obese, non-tender, BS active. Extremities - warm, Trace edema, + peripheral pulses, well perfused. Neuro - awake, alert, follows commands, moves all extremities, nods head yes and no to questions, tracks with eyes. A/P Problem List: (1) Acute on chronic respiratory failure with hypoxemia ICD Code: J96.21 - Acute and chronic respiratory failure with hypoxia (2) Symptomatic bradycardia ICD Code: R00.1 - Bradycardia, unspecified Status: Acute (3) Morbid obesity with BMI of 50.0-59.9, adult ICD Code: E66.01 - Morbid (severe) obesity due to excess calories; Z68.43 - Body mass index (BMI) 50-59.9 , adult Status: Acute (4) Atrial fibrillation ICD Code: I48.91 - Unspecified atrial fibrillation Status: Chronic (5) CKD (chronic kidney disease), stage III ICD Code: N18.3 - Chronic kidney disease, stage 3 (moderate) Status: Chronic (6) Chronic systolic CHF (congestive heart failure) ICD Code: I50.22 - Chronic systolic (congestive) heart failure Status: Chronic Assessment and Plan ASSESSMENT: Acute hypercapneic and hypoxic respiratory failure s/p emergent trach Afib/flutter with RVR - rate controlled with cardizem and lopressor DENNYS on CKD - slowly improving, good urine output, followed by nephrology Hypokalemia - resolved. NICM with EF 20% Shock liver, likely secondary to hypoperfusion -resolved H/o seizure d/o H/o cardiac arrest DM, Type 2 Possible CHINO/OHS Enterococcus in urine Hypernatremia - better, on free water new respiratory distress fever leukocytosis healthcare associated/ventilator associated pneumonia (Enterobacter and Proteus , 7 day course ceftriaxone completed.) PLAN: 1. t-piece as tolerated. PRVC mode at night. 2. Follow cultures -> NGTD. 3. D/C Ceftriaxone 12/20. 4. cbc, bmp daily 5. vent bundle, nebs, hob elevated 6. wean fio2 for goal spo2 > 90% 7. Electrolyte replacement per protocol 8. OOB to chair, as tolerated 9. On metoprolol and Cardizem. FDC may need to stop Cardizem due to compounding negative inotropy effect. On apixaban 10. Will need FABRICE/ARB and spironolactone once renal function improves 11. Continue statin 12. On topiramate for underlying seizure disorder 13. Glycemic control with insulin sliding scale 14. TF with nepro and free water 15. GI prophylaxis 16. DVT prophylaxis addressed Overall impression: Unable to wean from ventilatory support. Baseline EF 20% range and easily develops pulmonary edema. Awaiting transfer to LTAC. Sohail Ma MD Dec 21, 2017 08:07
--- NOTE | 2017-12-21 08:18 | HHI.DS ---
Discharge Summary Admission Date Nov 16, 2017 at 09:16 Discharge Date: Dec 21, 2017 Admitting Diagnosis Atrial Fibrillation w/ RR, CHF (1) Acute on chronic respiratory failure with hypoxemia ICD Code: J96.21 - Acute and chronic respiratory failure with hypoxia Diagnosis: Principal (2) Acute on chronic systolic heart failure ICD Code: I50.23 - Acute on chronic systolic (congestive) heart failure Diagnosis: Principal Status: Acute (3) Non-ischemic cardiomyopathy ICD Code: I42.8 - Other cardiomyopathies Diagnosis: Secondary Status: Chronic (4) Atrial fibrillation with RVR ICD Code: I48.91 - Unspecified atrial fibrillation Diagnosis: Secondary Status: Resolved (5) NSTEMI (non-ST elevated myocardial infarction) ICD Code: I21.4 - Non-ST elevation (NSTEMI) myocardial infarction Diagnosis: Secondary Status: Acute (6) Acute worsening of stage 3 chronic kidney disease ICD Code: N18.3 - Chronic kidney disease, stage 3 (moderate) Diagnosis: Secondary Status: Acute (7) DM (diabetes mellitus) ICD Code: E11.9 - Type 2 diabetes mellitus without complications Status: Chronic (8) Morbid obesity with BMI of 50.0-59.9, adult ICD Code: E66.01 - Morbid (severe) obesity due to excess calories; Z68.43 - Body mass index (BMI) 50-59.9 , adult Status: Acute (9) Tachy-janene syndrome ICD Code: I49.5 - Sick sinus syndrome Status: Acute (10) Hypokalemia ICD Code: E87.6 - Hypokalemia Brief History History of patient, ER physician communication, and review of medical records. Patient is known to me from his prior hospitalization on June 14, 2017. He is somewhat of a poor historian. His hospital course during that admission was quite complicated and prolonged. He was discharged on July 28, 2017. Chart reviewed. Patient reports that he has been home since about August 2017 after discharge from rehabilitation facility. He states he came to hospital today because he has been having swelling in his legs, and shortness of breath on exertion whenever he walks. He states this has been going on for about a week. He isn't sure whether he had fever. He was however noted to be congested with cough, sniffling throughout the interview. He denies any fevers at home. He denies any chest pains. However reports that he felt as if his heart is racing at night time. Patient arrived to emergency room by ambulance. However when asked about this, he stated he called ambulance only because he knew he was getting sick and he did not have transportation. Not necessarily because he was in acute distress. In the emergency room, upon initial arrival, patient was noted to be in A. fib with fast ventricular rate. He was given Cardizem 40 mg IV push, followed by labetalol 10 mg IV. After this , his heart rate was well-controlled. CBC/BMP: 12/21/17 0359 12/21/17 0359 Significant Findings Laboratory Tests Test 12/19/17 05:15 12/20/17 05:03 12/21/17 03:59 Red Blood Count 4.26 MIL/MM3 (4.50-5.90) 4.33 MIL/MM3 (4.50-5.90) Hemoglobin 12.0 GM/DL (13.0-17.0) 12.2 GM/DL (13.0-17.0) Hematocrit 37.3 % (39.0-51.0) 38.0 % (39.0-51.0) Platelet Count 133 TH/MM3 (150-450) 147 TH/MM3 (150-450) 133 TH/MM3 (150-450) Mean Platelet Volume 11.5 FL (7.0-11.0) 11.3 FL (7.0-11.0) 12.1 FL (7.0-11.0) Blood Urea Nitrogen 31 MG/DL (7-18) 33 MG/DL (7-18) 31 MG/DL (7-18) Creatinine 1.56 MG/DL (0.60-1.30) 1.57 MG/DL (0.60-1.30) 1.49 MG/DL (0.60-1.30) Random Glucose 120 MG/DL (74-106) 126 MG/DL (74-106) 125 MG/DL (74-106) Sodium Level 151 MEQ/L (136-145) 151 MEQ/L (136-145) 152 MEQ/L (136-145) Potassium Level 3.1 MEQ/L (3.5-5.1) 3.1 MEQ/L (3.5-5.1) 3.0 MEQ/L (3.5-5.1) Chloride Level 124 MEQ/L (98-107) 125 MEQ/L (98-107) 125 MEQ/L (98-107) Carbon Dioxide Level 16.9 MEQ/L (21.0-32.0) 18.3 MEQ/L (21.0-32.0) 18.1 MEQ/L (21.0-32.0) Estimat Glomerular Filtration Rate 56 ML/MIN (>89) 55 ML/MIN (>89) 59 ML/MIN (>89) White Blood Count 11.2 TH/MM3 (4.0-11.0) Mean Corpuscular Hemoglobin Concent 31.4 % (32.0-36.0) PE at Discharge GENERAL: Well-nourished, well-developed pleasant morbidly obese male patient in [facility]. SKIN: Warm and dry. No rash. HEENT: Normocephalic. Atraumatic.Pupils equal and round. Mucous membranes pink and moist. NECK: Supple. Trachea midline. CARDIOVASCULAR: Tachycardic Irregularly irregular rate and rhythm. S1, S2 noted. No murmur appreciated. RESPIRATORY: No accessory muscle use. Clear to auscultation. Breath sounds equal bilaterally. GASTROINTESTINAL: Abdomen soft, non-tender, nondistended. Normoactive bowel sounds x4. MUSCULOSKELETAL: No obvious deformities. 3+ BLE pitting edema. NEUROLOGICAL: Awake and alert. No obvious cranial nerve deficits. Motor grossly within normal limits. Normal speech. PSYCHIATRIC: Appropriate mood and affect; insight and judgment normal. Transfer Summary Unable to wean from ventilator. Requires LTAC. Hospital Course 57 y/o man with chronic nonischemic cardiomyopathy, EF 20% presents two days ago to ED with a-fib and RVR. Morbid obesity and chronic obesity hypoventilation syndrome. Developed bradycardia requiring atropine this morning , rushed to [facility] where on arrival he is obtunded with agonal respirations. Rate acceptable, depth shallow. Required bag mask ventilation, dopamine and levophed. Unable to intubate despite optic endoscope; proceeded to tracheostomy. Sats maintained > 80% throughout. Initial pH 7.14. 11/17: S/P resuscitation for probable hypercapneic respiratory arrest with bradycardia, hypotension. Has required mechanical ventilation. Perfusion improved after inotropic support instituted, now tapering. Elevated LFTs may reflect period of inadequate perfusion. 11/18: Doing well on T-piece. Resolving shock liver, DENNYS. Should go home with trach. 11/19: Fatigues on CPAP/T-piece. Will need LTAC. 11/20: stable. still volume overloaded by clinical exam. will need LTAC placement. 11/21: Tmax 1.3. Currently 99.9. Remains on PRvC ventilation. NG tube is been resumed. Remains on furosemide 40 mg IV 3 times daily. Heart rate slightly tachycardic 11/22: Pulse intermittently 150. Consistently 120s. Will add PO cardizem and attempt to get better rate control - permanent a-fib. 11/23: Heart rate control improved on po cardizem. Slightly over-diuresed, will back off on lasix. 11/24: Persistent intractable coughing. Low grade fever. Deteriorating renal function. CXR with pulmonary venous congestion but no consolidation or infiltrate. 11/25: Unable to wean ventilator. Hold lasix today, review pending renal function. 11/26: No events over the night. Patient doing well, sat in chair, now back in bed. Good spirits, follows commands. Afebrile. I/O 2444/675. 11/27: No events throughout the night. This AM, patient is resting comfortable. Afebrile, I/O 2537/1350. 11/28: Patient did well through the night. This AM, awake, doing great on PS 5/ 5. Tmax 99.3, I/O 1335/950. 11/29: No events over the night. Patient awake, on CPAP. Tolerated T piece for 8 hours yesterday. Lower urine output over the last few hours. 11/30: No events. Did well on T piece yesterday. Afebrile, I/O 2158/1975. Awake. 12/01: Patient resting comfortable, easily arousable. Afebrile. 12/02: Renal function improving, tolerating diuresis. Heart rate control acceptable. 12/03: Lying in bed. No acute distress follows commands. Renal function stable. UO 1.5 L in 24 hours 12/04: Awake alert, tolerating CPAP. Pulled his NG tube yesterday night, now replaced. Will consult GI for PEG placement. 12/05: Getting ahead on free water. Continue weaning efforts. Remains cooperative, alert. 12/06: Fluid balance about right. Progressing slowly with mobility to stretcher chair and vent weaning. 12/07: Replace electrolytes. Restart TFs when OK with GI. 12/08: Continuing weaning trials - still ventilator dependent. 12/09: Continued vent weaning trials. 12/10: Continue weaning trials. 12/11: Continuing weaning trials. Resting in bed not in any acute distress. 12/12: Remains on mechanical ventilation via tracheostomy. Awake and alert. Daily C Pap trials ongoing. 12/13: no changes. remains on the vent. follows commands. still failing weaning attempts. denied by insurance again for LTAC level care. requires that degree of care, but will be forced to attempt to find long-term vent-capable SNF for patient given limitations in funding. 12/14: unable to wean cpap today, secretions much worse. starting to spike fevers. may have VAP. will send cultures, CXR, cbc, bmp. start vancomycin and cefepime. 12/15: somewhat improved from yesterday, but still not back on t-piece yet given persistent hypoxia and respiratory failure. sputum growing GNRs, speciation to follow. wbc downtrending. 12/16: wbc downtrending. more awake and alert today. SUBJECTIVE: 12/17: Remains on mechanical ventilation via tracheostomy. Daily C Pap trials ongoing. 12/18: Remains on mechanical ventilation via tracheostomy. Daily C Pap trials 12/19: Remains on mechanical ventilation via tracheostomy. Tolerated TPs during daytime yesterday placed back on C Pap at night. 12/20: Tolerating T-piece. Ready for long-term vent unit. 12/21: Still requiring ventilator support at night. Pt Condition on Discharge: Stable Discharge Disposition: Disch to Another Hospital Sohail Ma MD Dec 21, 2017 08:18
[2017-12-21 08:24] VITALS: O2SAT 99
[2017-12-21] MEDS: POLYETHYLENE GLYCOL 17 GM PKG NG SCH (09:00)
[2017-12-21] MEDS: DOCUSATE SODIUM 50 MG/SENNA 8.6 MG TAB PO SCH (09:00)
[2017-12-21] MEDS: METOPROLOL TARTRATE 100 MG TAB PO SCH (09:12)
[2017-12-21] MEDS: FAMOTIDINE 20 MG TAB NG SCH (09:12)
[2017-12-21] MEDS: TOPIRAMATE 200 MG TAB PO SCH (09:12)
[2017-12-21] MEDS: POTASSIUM CHLORIDE 20 MEQ PWD PACKET NG SCH (09:12)
== END 2017-12-21 10:44 | DRG 4 ==
LOC: NEPE 21:21 → NEDA 11-15 00:03 → NEDH 11-15 08:23 → NEPGCP 11-15 11:08 → N03B 11-16 07:14 → OBSVTOIN 11-16 09:16
PROVIDERS: ADMIT Surgery Surgical Critical Care; ATTEND Surgery Surgical Critical Care
PROC: 0B113F4 Bypass Trachea to Cutaneous with Tracheostomy Device, Percutaneous Approach (ICD-10-PCS; principal; 2017-11-16)
PROC: 5A1955Z Respiratory Ventilation, Greater than 96 Consecutive Hours (ICD-10-PCS; 2017-11-16)
PROC: 02HV33Z Insertion of Infusion Device into Superior Vena Cava, Percutaneous Approach (ICD-10-PCS; 2017-11-16)
PROC: 0DH63UZ Insertion of Feeding Device into Stomach, Percutaneous Approach (ICD-10-PCS; 2017-12-06)
PROC: 0DJ08ZZ Inspection of Upper Intestinal Tract, Via Natural or Artificial Opening Endoscopic (ICD-10-PCS; 2017-12-06)
DX: J96.21 Acute and chronic respiratory failure with hypoxia (principal); K72.00 Acute and subacute hepatic failure without coma; N17.0 Acute kidney failure with tubular necrosis; I50.23 Acute on chronic systolic (congestive) heart failure; E87.0 Hyperosmolality and hypernatremia; D69.6 Thrombocytopenia, unspecified; I42.8 Other cardiomyopathies; I27.20 Pulmonary hypertension, unspecified; I13.0 Hypertensive heart and chronic kidney disease with heart failure and stage 1 through stage 4 chronic kidney disease, or unspecified chronic kidney disease; J95.851 Ventilator associated pneumonia; E66.2 Morbid (severe) obesity with alveolar hypoventilation; Z68.43 Body mass index [BMI] 50.0-59.9, adult; I48.92 Unspecified atrial flutter; E87.2 Acidosis; Z99.11 Dependence on respirator [ventilator] status; N18.3 Chronic kidney disease, stage 3 (moderate); I48.0 Paroxysmal atrial fibrillation; R00.1 Bradycardia, unspecified; G40.909 Epilepsy, unspecified, not intractable, without status epilepticus; G47.33 Obstructive sleep apnea (adult) (pediatric); J96.02 Acute respiratory failure with hypercapnia; I48.2 Chronic atrial fibrillation; E87.6 Hypokalemia; K08.89 Other specified disorders of teeth and supporting structures; I08.1 Rheumatic disorders of both mitral and tricuspid valves; K59.00 Constipation, unspecified; I49.5 Sick sinus syndrome; K29.70 Gastritis, unspecified, without bleeding; E11.22 Type 2 diabetes mellitus with diabetic chronic kidney disease; B96.89 Other specified bacterial agents as the cause of diseases classified elsewhere; R82.71 Bacteriuria; B95.2 Enterococcus as the cause of diseases classified elsewhere; B96.4 Proteus (mirabilis) (morganii) as the cause of diseases classified elsewhere; D64.9 Anemia, unspecified; E78.5 Hyperlipidemia, unspecified; I25.10 Atherosclerotic heart disease of native coronary artery without angina pectoris; T88.4XXA Failed or difficult intubation, initial encounter; Z71.3 Dietary counseling and surveillance; Z79.01 Long term (current) use of anticoagulants
CPT/HCPCS: 31600; 36556; 49440; 71045; 74018; 76937; 80048; 80053; 80069; 80202; 81001; 82550; 82552; 82570; 82805; 82948; 83605; 83735; 83880; 83935; 84100; 84132; 84133; 84300; 84484; 84540; 85007; 85025; 85027; 85610; 85730; 87040; 87070; 87077; 87086; 87184; 87186; 87205; 87641; 87804; 93005; 94002; 94003; 94640; 94664; 99152; 99153; A7521; C1769; C1887; C1894; G8987-GP; G8988-GP; J0461; J0690; J0692; J0696; J1265; J1940; J2212; J2250; J2270; J2405; J3010; J3370; J3480; J7030; J7040; J7613; Q9967

== ENCOUNTER 2018-04-20 14:49 | Inpatient (IN) | payer OTHER, MEDICAID, MEDICARE ==
[2018-04-20] VITALS (8 sets, daily range): BP systolic 110–189; BP diastolic 71–89; PULSE 105–165; RESP 15–23; TEMP 96.9–97.9; O2SAT 96–100
[~2018-04-20] VITALS: Ht 175.3 cm; Wt 132.6 kg
[~2018-04-20 14:49] MED LIST changes: -ALBU0.08 INH; -AMIO200T PO; -APIX2.5T NG; +APIX5TAB PEG; +ATOR80TA45 PEG; -TOPI100 PO; +TOPI200 PEG
[2018-04-20] MEDS ORDERED: SODIUM CHLOR 0.9% 1000 ML INJ 1,000 ML IV SCH (15:01)
--- NOTE | 2018-04-20 15:09 | PD ---
HPI Chief Complaint: GI Complaint Time Seen by Provider: 14:51 Travel History International Travel<30 days: No Contact w/Intl Traveler<30days: No Traveled to known affect area: No History of Present Illness HPI The patient is a 58-year-old -Pak[place] male who presents to the emergency department via EMS from [facility]. According to EMS the original call was for a GI bleed. However, EMS states when they arrived the patient denied any GI bleed. However, in route to the hospital they noted the patient was in atrial fibrillation with RVR. The patient is a somewhat limited historian, he denies any symptoms including lightheadedness, dizziness, chest pain, shortness of breath, nausea, vomiting, abdominal pain, or visible blood in his stool. However, the patient is a somewhat poor and limited historian. There was no medication reconciliation sent with the patient from [facility] , initially unsure if the patient is taking any blood thinners. The patient denies any symptoms, but was noted to have atrial fibrillation with a heart rate in the 150s by EMS. PFSH Past Medical History Hx Anticoagulant Therapy: Yes Arthritis: Yes Asthma: No Atrial Fibrillation: Yes Blood Disorders: No Anxiety: No Depression: No Heart Rhythm Problems: Yes (A-FIB) Cancer: No Cardiac Catheterization: Yes (2016) Cardiovascular Problems: Yes (CARDIAC CATH) High Cholesterol: Yes Chemotherapy: No Chest Pain: Yes Congestive Heart Failure: Yes COPD: No Diabetes: No Diminished Hearing: No Endocrine: No GERD: Yes Genitourinary: Yes Hypertension: Yes Immune Disorder: No Musculoskeletal: Yes Neurologic: Yes (EPILEPSY) Psychiatric: No Reproductive: No Respiratory: Yes Myocardial Infarction: Yes Radiation Therapy: No Seizures: Yes Sleep Apnea: Yes Past Surgical History Other Surgery: No Social History Alcohol Use: No Tobacco Use: No Substance Use: No Allergies-Medications (Allergen,Severity, Reaction): Coded Allergies: castor oil (Unverified Allergy, Unknown, THROW UP, 11/14/17) Reported Meds & Prescriptions Reported Meds & Active Scripts Active Reported Phenergan Inj (Promethazine HCl) 25 Mg/Ml Inj 25 Mg IM Q6H PRN Metoprolol Tartrate 25 Mg Tab 50 Mg PEG BID Reglan (Metoclopramide HCl) 5 Mg Tab 5 Mg PO DAILY Ranitidine (Ranitidine HCl) 150 Mg Tab 150 Mg PO DAILY Potassium Chloride Liq (Potassium Chloride) 40 Meq/15 Ml Soln 40 Meq PEG DAILY Magnesium Oxide 400 Mg Tab 400 Mg PO DIRECTED Oxycodone (Oxycodone HCl) 5 Mg Cap 5 Mg PO DAILY PRN Zofran (Ondansetron HCl) 4 Mg Tab 4 Mg PO DAILY PRN Duoneb (Ipratropium-Albuterol Neb) 0.5-2.5 Mg/3 Ml Neb 1 Nebule INH Q4HR NEB Humalog Inj (Insulin Human Lispro) 1,000 Unit/10 Ml Vial 1-9 Units SQ ACHS Max dose at bedtime:( )units; sugars< 70,(0)units; sugars 150-199,(1)unit; sugars 200-249,(3)units; sugars 250-299,(5)units; sugars 300-349,(7)units; sugars more than 349,(9)units. Furosemide 40 Mg Tab 40 Mg PO DAILY Diltiazem (Diltiazem HCl) 90 Mg Tab 90 Mg PEG DAILY Budesonide Neb 0.5 Mg/2 Ml Neb 0.5 Mg NEB Q12HR NEB Artificial Tears Opth Drops (Polyvinyl Alcohol) 1.4% Soln 1-2 Drop EACH EYE PRN PRN Atorvastatin (Atorvastatin Calcium) 80 Mg Tab 80 Mg PEG HS Topamax (Topiramate) 200 Mg Tab 200 Mg PEG DAILY Eliquis (Apixaban) 5 Mg Tab 5 Mg PEG BID Review of Systems ROS Limitations: Poor Historian Except as stated in HPI: all other systems reviewed are Neg General / Constitutional: No: Fever Cardiovascular: Positive: Irregular Rhythm, Tachycardia, No: Chest Pain or Discomfort Respiratory: No: Shortness of Breath Gastrointestinal: Positive: Other (Possible rectal bleed per EMS as the original call from the assisted), No: Nausea, Vomiting, Abdominal Pain Neurologic: No: Change in Mentation Physical Exam Narrative GENERAL: Awake, alert, pleasant 58-year-old male who appears his stated age and is in no acute respiratory distress. SKIN: Focused skin assessment warm/dry. HEAD: Atraumatic. Normocephalic. EYES: No injection or drainage. ENT: No nasal bleeding or discharge. Mucous membranes pink and moist. NECK: Trachea midline. No JVD. CARDIOVASCULAR: Irregularly irregular, tachycardic with a heart rate in the 150s. RESPIRATORY: No accessory muscle use. Clear to auscultation. Breath sounds equal bilaterally. GASTROINTESTINAL: Abdomen obese with a large pannus. No rebound tenderness. PEG tube in place. Rectal: No gross blood. Grossly guaiac positive. MUSCULOSKELETAL: No obvious deformities. No clubbing. No cyanosis. No edema. NEUROLOGICAL: Awake and alert. No obvious cranial nerve deficits. Motor grossly within normal limits. Normal speech. Patient is oriented to person and place, follow simple commands. PSYCHIATRIC: Appropriate mood and affect; insight and judgment normal. Data Data Last Documented VS Vital Signs Date Time Temp Pulse Resp B/P (MAP) Pulse Ox O2 Delivery O2 Flow Rate FiO2 04/20/18 17:27 136 187/89 04/20/18 17:23 15 96 Room Air 04/20/18 15:01 97.9 Orders Orders Complete Blood Count With Diff (04/20/18 15:01) Comprehensive Metabolic Panel (04/20/18 15:01) Prothrombin Time / Inr (Pt) (04/20/18 15:01) Act Partial Throm Time (Ptt) (04/20/18 15:01) Type And Screen (04/20/18 15:01) Ecg Monitoring (04/20/18 15:01) Iv Access Insert/Monitor (04/20/18 15:01) Oximetry (04/20/18 15:01) Pantoprazole Inj (Protonix Inj) (04/20/18 15:15) Sodium Chlor 0.9% 1000 Ml Inj (Ns 1000 M (04/20/18 15:01) Sodium Chloride 0.9% Flush (Ns Flush) (04/20/18 15:15) Creatine Kinase (Cpk) (04/20/18 15:01) Troponin I (04/20/18 15:01) Chest, Single Ap (04/20/18 ) Electrocardiogram (04/20/18 ) Metoprolol Tartrate Inj (Lopressor Inj) (04/20/18 15:15) Metoprolol Tartrate Inj (Lopressor Inj) (04/20/18 15:45) Metoprolol Tartrate Inj (Lopressor Inj) (04/20/18 16:30) (Hub Use Only)Inp Phy Cons/Ref (04/20/18 ) Esmolol Drip Inj Premix (Brevibloc Drip (04/20/18 17:15) Esmolol Bolus Inj (Brevibloc Bolus Inj) (04/20/18 17:15) Esmolol Bolus Inj (Brevibloc Bolus Inj) (04/20/18 17:15) Esmolol Bolus Inj (Brevibloc Bolus Inj) (04/20/18 17:15) Admit To Inpatient (04/20/18 ) Vital Signs (Adult) Q4H (04/20/18 17:18) Activity Bed Rest (04/20/18 17:18) Department Head / Telemetry .CONTINUOUS (04/20/18 17:18) Intake + Output MARYCHUY.QSHIFT (04/20/18 17:18) Sodium Chloride 0.9% Flush (Ns Flush) (04/20/18 17:30) Sodium Chloride 0.9% Flush (Ns Flush) (04/20/18 21:00) Metoprolol Tartrate (Lopressor) (04/20/18 17:30) Cbc No Diff, Includes Plts (04/21/18 06:00) Basic Metabolic Panel (Bmp) (04/21/18 06:00) Consult Cardiology (04/20/18 ) Scd Bilateral/Knee High MARYCHUY.BID (04/20/18 17:18) Inpatient Certification (04/20/18 ) Consult Gastroenterology (04/20/18 ) (Hub Use Only)Inp Phy Cons/Ref (04/20/18 ) (Hub Use Only)Inp Phy Cons/Ref (04/20/18 ) Admit Order (Ed Use Only) (04/20/18 17:28) Labs Laboratory Tests Test 04/20/18 15:15 White Blood Count 9.7 TH/MM3 Red Blood Count 4.47 MIL/MM3 Hemoglobin 12.9 GM/DL Hematocrit 39.8 % Mean Corpuscular Volume 89.1 FL Mean Corpuscular Hemoglobin 28.9 PG Mean Corpuscular Hemoglobin Concent 32.4 % Red Cell Distribution Width 13.7 % Platelet Count 163 TH/MM3 Mean Platelet Volume 12.6 FL Neutrophils (%) (Auto) 81.2 % Lymphocytes (%) (Auto) 10.8 % Monocytes (%) (Auto) 7.3 % Eosinophils (%) (Auto) 0.2 % Basophils (%) (Auto) 0.5 % Neutrophils # (Auto) 7.8 TH/MM3 Lymphocytes # (Auto) 1.0 TH/MM3 Monocytes # (Auto) 0.7 TH/MM3 Eosinophils # (Auto) 0.0 TH/MM3 Basophils # (Auto) 0.1 TH/MM3 CBC Comment DIFF FINAL Differential Comment Prothrombin Time 12.7 SEC Prothromb Time International Ratio 1.3 RATIO Activated Partial Thromboplast Time 36.4 SEC Blood Urea Nitrogen 67 MG/DL Creatinine 1.98 MG/DL Random Glucose 121 MG/DL Total Protein 7.4 GM/DL Albumin 2.9 GM/DL Calcium Level 8.5 MG/DL Alkaline Phosphatase 99 U/L Aspartate Amino Transf (AST/SGOT) 15 U/L Alanine Aminotransferase (ALT/SGPT) 27 U/L Total Bilirubin 0.5 MG/DL Sodium Level 139 MEQ/L Potassium Level 3.4 MEQ/L Chloride Level 108 MEQ/L Carbon Dioxide Level 14.1 MEQ/L Anion Gap 17 MEQ/L Estimat Glomerular Filtration Rate 42 ML/MIN Total Creatine Kinase 50 U/L Troponin I LESS THAN 0.02 NG/ML MDM Medical Decision Making Medical Screen Exam Complete: Yes Emergency Medical Condition: Yes Medical Record Reviewed: Yes Interpretation(s) EKG reveals atrial fibrillation with RVR. Rate in the 140s. Nonspecific ST and T-wave changes. Last Impressions Chest X-Ray 04/20/18 0000 Signed Impressions: CONCLUSION: The lungs are clear. Laboratory Tests Test 04/20/18 15:15 White Blood Count 9.7 TH/MM3 Red Blood Count 4.47 MIL/MM3 Hemoglobin 12.9 GM/DL Hematocrit 39.8 % Mean Corpuscular Volume 89.1 FL Mean Corpuscular Hemoglobin 28.9 PG Mean Corpuscular Hemoglobin Concent 32.4 % Red Cell Distribution Width 13.7 % Platelet Count 163 TH/MM3 Mean Platelet Volume 12.6 FL Neutrophils (%) (Auto) 81.2 % Lymphocytes (%) (Auto) 10.8 % Monocytes (%) (Auto) 7.3 % Eosinophils (%) (Auto) 0.2 % Basophils (%) (Auto) 0.5 % Neutrophils # (Auto) 7.8 TH/MM3 Lymphocytes # (Auto) 1.0 TH/MM3 Monocytes # (Auto) 0.7 TH/MM3 Eosinophils # (Auto) 0.0 TH/MM3 Basophils # (Auto) 0.1 TH/MM3 CBC Comment DIFF FINAL Differential Comment Prothrombin Time 12.7 SEC Prothromb Time International Ratio 1.3 RATIO Activated Partial Thromboplast Time 36.4 SEC Blood Urea Nitrogen 67 MG/DL Creatinine 1.98 MG/DL Random Glucose 121 MG/DL Total Protein 7.4 GM/DL Albumin 2.9 GM/DL Calcium Level 8.5 MG/DL Alkaline Phosphatase 99 U/L Aspartate Amino Transf (AST/SGOT) 15 U/L Alanine Aminotransferase (ALT/SGPT) 27 U/L Total Bilirubin 0.5 MG/DL Sodium Level 139 MEQ/L Potassium Level 3.4 MEQ/L Chloride Level 108 MEQ/L Carbon Dioxide Level 14.1 MEQ/L Anion Gap 17 MEQ/L Estimat Glomerular Filtration Rate 42 ML/MIN Total Creatine Kinase 50 U/L Troponin I LESS THAN 0.02 NG/ML Differential Diagnosis Differential diagnosis includes upper GI bleed, lower GI bleed, peptic ulcer disease, gastritis, coagulopathy, medication side effect, atrial fibrillation with RVR, electrolyte abnormality, symptomatic anemia. Narrative Course IV was established, labs are drawn and sent, and the patient was placed on cardiac telemetry monitoring and continuous pulse oximetry monitoring. EKG was ordered and interpreted. The patient was administered Lopressor 5 mg intravenously. The patient was administered Protonix 40 mg intravenous push. Chest x-ray is unremarkable. Rectal exam is positive, guaiac positive. Hemoglobin is 12, BUN is elevated at 67 with elevated creatinine. Patient was in atrial fibrillation with RVR, was administered 3 separate doses of Lopressor intravenously, continue to be tachycardic. Therefore, patient was placed on an esmolol drip. We eventually did obtain records from the assisted, the patient does take Eliquis, appears to have a GI bleed with A. fib with RVR. The patient has [employer], [facility]. Critical Care Narrative Aggregate critical care time was 40 minutes. Time to perform other separately billable procedures was not included in the critical care time. My time did not include minutes spent treating any other patients simultaneously or on activities that did not directly contribute to the patient's treatment. The services I provided to this patient were to treat and/or prevent clinically significant deterioration that could result in: Arrhythmia, dysrhythmia, pulmonary edema, congestive heart failure. I provided critical care services requiring my management, as noted below: Chart data review, documentation time, medication orders and management, vital sign assessments/reviewing monitor data, ordering and reviewing lab tests, ordering and interpreting/reviewing x-rays and diagnostic studies, care of the patient and discussion of the patient with the admitting physicians. HemaPrompt Point of Care Internal Pos. & Neg. Controls: Passed Fecal Specimen Occult Blood: Positive Physician Communication Physician Communication The patient has [employer], [facility], [facility]. I discussed the patient with Dr. Dennison who agrees with admission. Diagnosis Primary Impression: Atrial fibrillation with RVR Additional Impression: GI bleed Qualified Codes: K92.2 - Gastrointestinal hemorrhage, unspecified Condition: Stable Joshua Santamaria MD Apr 20, 2018 15:09
[2018-04-20] MEDS ORDERED: SODIUM CHLORIDE 0.9% FLUSH 10 ML FLUSH IVF PRN (15:15)
[2018-04-20] MEDS ORDERED: METOPROLOL TARTRATE 5 MG/5 ML VIAL IV PUSH ONE ×3 (15:15→16:30)
[2018-04-20] MEDS ORDERED: PANTOPRAZOLE SODIUM 40 MG VIAL IVP ONE (15:15)
[2018-04-20 15:33] LABS: AUTOMATED NEUTROPHIL # 7.8 TH/MM3 (1.8-7.7); BASOPHIL # 0.1 TH/MM3 (0-0.2); BASOPHIL % 0.5 % (0.0-2.0); EOSINOPHIL % 0.2 % (0.0-4.0); HEMATOCRIT 39.8 % (39.0-51.0); HEMOGLOBIN 12.9 GM/DL (13.0-17.0); LYMPH % 10.8 % (9.0-44.0); MEAN CELL VOLUME 89.1 FL (80.0-100.0); MEAN CORPUSCULAR HEMOGLOBIN 28.9 PG (27.0-34.0); MEAN CORPUSCULAR HGB CONC 32.4 % (32.0-36.0); MEAN PLATELET VOLUME 12.6 FL (7.0-11.0); MONO % 7.3 % (0.0-8.0); MONOCYTE # 0.7 TH/MM3 (0-0.9); NEUT % 81.2 % (16.0-70.0); PLATELET COUNT 163 TH/MM3 (150-450); RED BLOOD COUNT 4.47 MIL/MM3 (4.50-5.90); RED CELL DISTRIBUTION WIDTH 13.7 % (11.6-17.2); WHITE BLOOD COUNT 9.7 TH/MM3 (4.0-11.0)
[2018-04-20] MEDS ORDERED: POLY99.0 EACH EYE (15:45)
[2018-04-20] MEDS ORDERED: OXYC1CAP PO (15:45)
[2018-04-20] MEDS ORDERED: BUDE0.5S NEB (15:45)
[2018-04-20] MEDS ORDERED: ZOFR4TAB PO (15:45)
[2018-04-20] MEDS ORDERED: DILT90TA PEG (15:45)
[2018-04-20] MEDS ORDERED: IPRASOL INH (15:45)
[2018-04-20] MEDS ORDERED: HUMALOG SQ (15:45)
[2018-04-20] MEDS ORDERED: FURO40TA PO (15:45)
[2018-04-20 15:46] LABS: INTERNATIONAL NORMALIZED RATIO 1.3 RATIO; PROTHROMBIN TIME - PATIENT 12.7 SEC (9.8-11.6)
[2018-04-20] MEDS ORDERED: RANI150T PO (15:55)
[2018-04-20] MEDS ORDERED: PROM2INJ IM (15:55)
[2018-04-20] MEDS ORDERED: REGL5TAB PO (15:55)
[2018-04-20] MEDS ORDERED: POTA10LI10 PEG (15:55)
[2018-04-20] MEDS ORDERED: MAGN400T2 PO (15:55)
[2018-04-20] MEDS ORDERED: METO25TA3 PEG (15:55)
--- NOTE | 2018-04-20 15:58 | RADRPT ---
EXAM DATE: 04/20/2018 3:34 PM EDT AGE/SEX: 58 years / Male INDICATIONS: Shortness of breath and chest pain. CLINICAL DATA: This is the patient's initial encounter. Patient reports that signs and symptoms have been present for 2 days and indicates a pain score of 3/10. MEDICAL/SURGICAL HISTORY: . Congestive heart failure. Atrial fibrillation None. COMPARISON: [facility], CHEST SINGLE AP, 12/14/2017. . FINDINGS: A single AP view of the chest demonstrates the lungs to be symmetrically aerated without evidence of mass, infiltrate or effusion. The cardiomediastinal contours are unremarkable. Osseous structures a re intact. CONCLUSION: The lungs are clear. Electronically signed by: Ronni Capps MD 04/20/2018 3:57 PM EDT
[2018-04-20 16:44] LABS: ALBUMIN 2.9 GM/DL (3.4-5.0); ALKALINE PHOSPHATASE 99 U/L (45-117); ALT (GPT) 27 U/L (12-78); AST (GOT) 15 U/L (15-37); BICARBONATE 14.1 MEQ/L (21.0-32.0); BLOOD UREA NITROGEN 67 MG/DL (7-18); CALCIUM 8.5 MG/DL (8.5-10.1); CHLORIDE 108 MEQ/L (98-107); CREATININE 1.98 MG/DL (0.60-1.30); GLOMERULAR FILTRATION RATE 42 ML/MIN (>89); GLUCOSE,RANDOM 121 MG/DL (74-106); SODIUM (NA) 139 MEQ/L (136-145); TOTAL BILIRUBIN ADULT 0.5 MG/DL (0.2-1.0); TOTAL PROTEIN 7.4 GM/DL (6.4-8.2); TROPONIN I LESS THAN 0.02 NG/ML (0.02-0.05)
[2018-04-20] MEDS ORDERED: ESMOLOL HCL 100 MG/10 ML VIAL IV PUSH PRN ×3 (17:15)
[2018-04-20] MEDS: ESMOLOL DRIP INJ PREMIX 250 ML IV PRN ×4 (17:27→23:58)
[2018-04-20] MEDS ORDERED: SODIUM CHLORIDE 0.9% FLUSH 10 ML FLUSH IV FLUSH PRN (17:30)
[2018-04-20] MEDS: METOPROLOL TARTRATE 50 MG TAB PO SCH ×2 (17:45→20:14)
[2018-04-20] MEDS: SODIUM CHLORIDE 0.9% FLUSH 10 ML FLUSH IV FLUSH SCH (20:14)
--- NOTE | 2018-04-20 21:39 | HHI.HP ---
[facility] Primary Care Physician oYmi Panchal MD Admission Diagnosis Atrial fibrillation with RVR, GI bleed Diagnoses: Travel History International Travel<30 Days: No Contact w/Intl Traveler <30 Da: No Traveled to Known Affected Are: No History of Present Illness 58-year-old -Prydeinig male with a past medical history significant for hyperlipidemia, diabetes mellitus, chronic kidney disease, seizure disorder, atrial fibrillation anticoagulated on Eliquis and GERD presents to the emergency department from [facility]. According to EMS the original call was for a GI bleed. In route to the hospital the patient was noted to be in A. fib with RVR. The patient is an extremely oriented but denies any symptoms including lightheadedness, dizziness, chest pain, shortness of breath, nausea, vomiting, abdominal pain or visible blood in his stool. He denies any hematemesis. The patient was found to be Hemoccult positive in the emergency department. Alert and oriented to self. Review of Systems Unable to obtain secondary to patient's clinical condition Past Family Social History Past Medical History hyperlipidemia, diabetes mellitus, chronic kidney disease, seizure disorder, atrial fibrillation anticoagulated on Eliquis and GERD Past Surgical History Unable to obtain Reported Medications Reported Meds & Active Scripts Active Reported Phenergan Inj (Promethazine HCl) 25 Mg/Ml Inj 25 Mg IM Q6H PRN Metoprolol Tartrate 25 Mg Tab 50 Mg PEG BID Reglan (Metoclopramide HCl) 5 Mg Tab 5 Mg PO DAILY Ranitidine (Ranitidine HCl) 150 Mg Tab 150 Mg PO DAILY Potassium Chloride Liq (Potassium Chloride) 40 Meq/15 Ml Soln 40 Meq PEG DAILY Magnesium Oxide 400 Mg Tab 400 Mg PO DIRECTED Oxycodone (Oxycodone HCl) 5 Mg Cap 5 Mg PO DAILY PRN Zofran (Ondansetron HCl) 4 Mg Tab 4 Mg PO DAILY PRN Duoneb (Ipratropium-Albuterol Neb) 0.5-2.5 Mg/3 Ml Neb 1 Nebule INH Q4HR NEB Humalog Inj (Insulin Human Lispro) 1,000 Unit/10 Ml Vial 1-9 Units SQ ACHS Max dose at bedtime:( )units; sugars< 70,(0)units; sugars 150-199,(1)unit; sugars 200-249,(3)units; sugars 250-299,(5)units; sugars 300-349,(7)units; sugars more than 349,(9)units. Furosemide 40 Mg Tab 40 Mg PO DAILY Diltiazem (Diltiazem HCl) 90 Mg Tab 90 Mg PEG DAILY Budesonide Neb 0.5 Mg/2 Ml Neb 0.5 Mg NEB Q12HR NEB Artificial Tears Opth Drops (Polyvinyl Alcohol) 1.4% Soln 1-2 Drop EACH EYE PRN PRN Atorvastatin (Atorvastatin Calcium) 80 Mg Tab 80 Mg PEG HS Topamax (Topiramate) 200 Mg Tab 200 Mg PEG DAILY Eliquis (Apixaban) 5 Mg Tab 5 Mg PEG BID Allergies: Coded Allergies: castor oil (Unverified Allergy, Unknown, THROW UP, 11/14/17) Family History Unable to obtain Social History Unable to obtain Physical Exam Vital Signs Vital Signs Date Time Temp Pulse Resp B/P (MAP) Pulse Ox O2 Delivery O2 Flow Rate FiO2 04/20/18 20:21 100 21 04/20/18 20:00 96.9 105 20 110/71 (84) 100 04/20/18 20:00 105 04/20/18 19:44 132 108/83 04/20/18 18:29 98 14 141/85 (103) 98 21 04/20/18 18:25 92 141/85 04/20/18 18:07 101 132/78 04/20/18 17:48 108 158/88 04/20/18 17:33 130 161/73 18 17:27 136 187/89 04/20/18 17:23 126 15 187/89 (121) 96 Room Air 04/20/18 15:56 116 158/80 (106) 04/20/18 15:16 124 20 171/72 (105) 96 Room Air 04/20/18 15:16 (105) Room Air 04/20/18 15:01 97.9 165 23 189/84 (119) 96 Physical Exam GENERAL: -Prydeinig male lying in bed SKIN: No rashes, ecchymoses or lesions. Cool and dry. HEAD: Atraumatic. Normocephalic. No temporal or scalp tenderness. EYES: Pupils equal round and reactive. Extraocular motions intact. No scleral icterus. No injection or drainage. ENT: Nose without bleeding, purulent drainage or septal hematoma. Throat without erythema, tonsillar hypertrophy or exudate. Uvula midline. Airway patent. NECK: Trachea midline. No JVD or lymphadenopathy. Supple, nontender, no meningeal signs. CARDIOVASCULAR: Regular rate and rhythm without murmurs, gallops, or rubs. RESPIRATORY: Clear to auscultation. Breath sounds equal bilaterally. No wheezes , rales, or rhonchi. GASTROINTESTINAL: Abdomen soft, non-tender, nondistended. No hepato-splenomegaly , or palpable masses. No guarding. MUSCULOSKELETAL: Extremities without clubbing, cyanosis, or edema. No joint tenderness, effusion, or edema noted. No calf tenderness. NEUROLOGICAL: Awake and alert. Cranial nerves II through XII intact. Motor and sensory grossly within normal limits. Normal speech. Laboratory Laboratory Tests Test 04/20/18 15:15 White Blood Count 9.7 Red Blood Count 4.47 Hemoglobin 12.9 Hematocrit 39.8 Mean Corpuscular Volume 89.1 Mean Corpuscular Hemoglobin 28.9 Mean Corpuscular Hemoglobin Concent 32.4 Red Cell Distribution Width 13.7 Platelet Count 163 Mean Platelet Volume 12.6 Neutrophils (%) (Auto) 81.2 Lymphocytes (%) (Auto) 10.8 Monocytes (%) (Auto) 7.3 Eosinophils (%) (Auto) 0.2 Basophils (%) (Auto) 0.5 Neutrophils # (Auto) 7.8 Lymphocytes # (Auto) 1.0 Monocytes # (Auto) 0.7 Eosinophils # (Auto) 0.0 Basophils # (Auto) 0.1 CBC Comment DIFF FINAL Differential Comment Prothrombin Time 12.7 Prothromb Time International Ratio 1.3 Activated Partial Thromboplast Time 36.4 Blood Urea Nitrogen 67 Creatinine 1.98 Random Glucose 121 Total Protein 7.4 Albumin 2.9 Calcium Level 8.5 Alkaline Phosphatase 99 Aspartate Amino Transf (AST/SGOT) 15 Alanine Aminotransferase (ALT/SGPT) 27 Total Bilirubin 0.5 Sodium Level 139 Potassium Level 3.4 Chloride Level 108 Carbon Dioxide Level 14.1 Anion Gap 17 Estimat Glomerular Filtration Rate 42 Total Creatine Kinase 50 Troponin I LESS THAN 0.02 Result Diagram: 04/20/18 1515 04/20/18 1515 Caprini VTE Risk Assessment Caprini VTE Risk Assessment: Mod/High Risk (score >= 2) Caprini Risk Assessment Model Point Value = 1 Point Value = 2 Point Value = 3 Point Value = 5 Age 41-60 Minor surgery BMI > 25 kg/m2 Swollen legs Varicose veins or History of unexplained or recurrent spontaneous Oral contraceptives or hormone replacement Sepsis (< 1 month) Serious lung disease, including pneumonia (< 1 month) Abnormal pulmonary function Acute myocardial infarction Congestive heart failure (< 1 month) History of inflammatory bowel disease Medical patient at bed rest Age 61-74 Arthroscopic surgery Major open surgery (> 45 min) Laparoscopic surgery (> 45 min) Malignancy Confined to bed (> 72 hours) Immobilizing plaster cast Central venous access Age >= 75 History of VTE Family history of VTE Factor V Leiden Prothrombin [id number] Lupus anticoagulant Anticardiolipin antibodies Elevated serum homocysteine Heparin-induced thrombocytopenia Other congenital or acquired thrombophilia Stroke (< 1 month) Elective arthroplasty Hip, pelvis, or leg fracture Acute spinal cord injury (< 1 month) Prophylaxis Regimen Total Risk Factor Score Risk Level Prophylaxis Regimen 0-1 Low Early ambulation 2 Moderate Order ONE of the following: *Sequential Compression Device (SCD) *Heparin 5000 units SQ BID 3-4 Higher Order ONE of the following medications: *Heparin 5000 units SQ TID *Enoxaparin/Lovenox 40 mg SQ daily (WT < 150 kg, CrCl > 30 mL/min) *Enoxaparin/Lovenox 30 mg SQ daily (WT < 150 kg, CrCl > 10-29 mL/min) *Enoxaparin/Lovenox 30 mg SQ BID (WT < 150 kg, CrCl > 30 mL/min) AND/OR *Sequential Compression Device (SCD) 5 or more Highest Order ONE of the following medications: *Heparin 5000 units SQ TID (Preferred with Epidurals) *Enoxaparin/Lovenox 40 mg SQ daily (WT < 150 kg, CrCl > 30 mL/min) *Enoxaparin/Lovenox 30 mg SQ daily (WT < 150 kg, CrCl > 10-29 mL/min) *Enoxaparin/Lovenox 30 mg SQ BID (WT < 150 kg, CrCl > 30 mL/min) AND *Sequential Compression Device (SCD) Assessment and Plan Assessment and Plan Assessment/plan: 1. GI bleed Hemoccult positive in the ED Serial H&H IV Protonix Gastroenterology consulted, appreciate recommendations 2. Atrial fibrillation with rapid ventricular response Status post Lopressor with continued RVR Esmolol drip -wean as tolerated Patient with known history of atrial fibrillation Anticoagulated on Eliquis Continue home medications: Metoprolol, diltiazem 3. Diabetes mellitus Sliding-scale insulin Monitor blood glucose 4. Chronic kidney disease Creatinine 1.98, baseline for the patient Monitor renal function 5. Seizure disorder Continue home Topamax 6. Hypertension/hyperlipidemia Continue home medications FEN N.p.o. Electrolytes: Status post IV supplementation Holding Eliquis for possible procedure Physician Certification 2 Midnight Certification Type: Admission for Inpatient Services Order for Inpatient Services The services are ordered in accordance with Medicare regulations or non- Medicare payer requirements, as applicable. In the case of services not specified as inpatient-only, they are appropriately provided as inpatient services in accordance with the 2-midnight benchmark. Estimated LOS (days): 2 2 days is the estimated time the patient will need to remain in the hospital, assuming treatment plan goals are met and no additional complications. Post-Hospital Plan: Not yet determined Meron Lancaster MD Apr 20, 2018 21:39
[2018-04-20] MEDS: POTASSIUM CHLOR 10 MEQ PREMIX 100 ML IV SCH (22:14)
[2018-04-20 23:11] LABS: HEMATOCRIT 36.9 % (39.0-51.0)
[2018-04-21] VITALS (12 sets, daily range): BP systolic 86–115; BP diastolic 53–62; PULSE 102–134; RESP 18–22; TEMP 96.9–98.2; O2SAT 93–98
[2018-04-21] MEDS: POTASSIUM CHLOR 10 MEQ PREMIX 100 ML IV SCH ×2 (00:09→01:14)
[2018-04-21] MEDS ORDERED: CHLORHEXIDINE GLUCONATE 2 % 1 PACK (2 CLOTHS)(extra cloths) TOPICAL PRN (01:00)
[2018-04-21] MEDS: ESMOLOL DRIP INJ PREMIX 250 ML IV PRN ×10 (01:13→21:51)
[2018-04-21] MEDS: CHLORHEXIDINE GLUCONATE 2 % 1 PACK (2 CLOTHS)(taper/protocol) TOPICAL SCH (04:00)
[2018-04-21] MEDS ORDERED: DILTIAZEM HCL 90 MG TAB PEG ONE (05:00)
[2018-04-21 05:20] LABS: HEMATOCRIT 36.9 % (39.0-51.0); HEMOGLOBIN 11.8 GM/DL (13.0-17.0); MEAN CELL VOLUME 90.9 FL (80.0-100.0); MEAN CORPUSCULAR HGB CONC 31.9 % (32.0-36.0); PLATELET COUNT 132 TH/MM3 (150-450); RED BLOOD COUNT 4.06 MIL/MM3 (4.50-5.90); WHITE BLOOD COUNT 8.8 TH/MM3 (4.0-11.0)
[2018-04-21 05:47] LABS: BICARBONATE 17.1 MEQ/L (21.0-32.0); CALCIUM 8.3 MG/DL (8.5-10.1); CREATININE 2.03 MG/DL (0.60-1.30)
[2018-04-21] MEDS: FUROSEMIDE 40 MG TAB PO SCH (08:06)
[2018-04-21] MEDS: PANTOPRAZOLE SODIUM 40 MG VIAL IV PUSH SCH ×2 (08:06→21:51)
[2018-04-21] MEDS: TOPIRAMATE 200 MG TAB PEG SCH (08:06)
[2018-04-21] MEDS: METOPROLOL TARTRATE 50 MG TAB PEG SCH ×2 (08:06→21:52)
[2018-04-21] MEDS: SODIUM CHLORIDE 0.9% FLUSH 10 ML FLUSH IV FLUSH SCH ×2 (08:06→21:00)
[2018-04-21] MEDS ORDERED: LORazepam 2 MG/ML VIAL ONE (08:52)
[2018-04-21] MEDS ORDERED: DILTIAZEM HCL 90 MG TAB PEG SCH (09:00)
[2018-04-21] MEDS ORDERED: APIXABAN 5 MG TABLET PO SCH (09:00)
--- NOTE | 2018-04-21 09:01 | PD.CONS ---
HPI History of Present Illness This is a 58 year old M with PMH significant for a-fib, hyperlipidemia, CKD, DM , seizure disorder, and GERD who was sent to the hospital yesterday from [facility] for evaluation of reports of GIB. Pt is oriented to self but unable to provide any history at this time, therefore all history obtained through chart review. According to ER records, pt denies any GIB to EMS as well as ER provider, he was found to be in a-fib with RVR in route and has been started on an Esmolol drip. Pt was found to be Hemoccult positive by ER provider, and according to PROFILE GRINDER TECHNICIAN there has been reports of black, tarry stools. Pt denies any GI symptoms at this time including nausea, vomiting, abdominal pain, changes in bowel habits, obvious GIB. No BMs documented since admission. He does reports previous colonoscopy but is unsure of when or the results. Of note, pt is on Eliquis for a-fib, last dose was this morning. Pt has been previously been seen by our service for EGD in December --> Esophagus appeared normal. Gastritis in the gastric antrum. Normal duodenal mucosa in the bulb and second portion of the duodenum. Unable to transilluminate to place PEG , therefore IR was consulted who placed 18 Fr gastrostomy tube on Dec 06. Pt still has G tube and states he does not take anything by mouth. (Bhavana Nunn) PFSH Past Medical History hyperlipidemia, diabetes mellitus, chronic kidney disease, seizure disorder, atrial fibrillation anticoagulated on Eliquis and GERD Past Surgical History Unable to obtain (Bhavana Nunn) Coded Allergies: castor oil (Unverified Allergy, Unknown, THROW UP, 11/14/17) Family History Unable to obtain Social History Unable to obtain (Bhavana Nunn) Review of Systems Gastrointestinal: DENIES: Abdominal pain, Black stools, Bloody stools, Constipation, Diarrhea, Nausea, Vomiting, Heartburn, Hematemesis (Bhavana Nunn) GI Exam Vitals I&O Vital Signs Date Time Temp Pulse Resp B/P (MAP) Pulse Ox O2 Delivery O2 Flow Rate FiO2 04/21/18 06:46 107 90/57 04/21/18 06:00 108 04/21/18 05:02 130 102/58 6/18/18 04:00 118 18 04:00 96.9 118 18 95/58 (70) 97 18 03:26 121 98/60 18 02:00 110 18 01:13 120 95/57 18/18 00:00 117 18 00:00 97.5 117 18 115/56 (75) 97 04/20/18 23:58 108 110/56 04/20/18 22:00 111 04/20/18 21:31 107 113/64 18 20:21 100 21 04/20/18 20:00 96.9 105 20 110/71 (84) 100 04/20/18 20:00 105 04/20/18 19:44 132 108/83 04/20/18 18:29 98 14 141/85 (103) 98 21 18 18:25 92 141/85 18 18:07 101 132/78 04/20/18 17:48 108 158/88 18 17:33 130 161/73 18 17:27 136 187/89 04/20/18 17:23 126 15 187/89 (121) 96 Room Air 04/20/18 15:56 116 158/80 (106) 04/20/18 15:16 124 20 171/72 (105) 96 Room Air 04/20/18 15:16 (105) Room Air 04/20/18 15:01 97.9 165 23 189/84 (119) 96 I/O 04/20/18 04/20/18 04/20/18 04/21/18 04/21/18 04/21/18 07:00 15:00 23:00 07:00 15:00 23:00 Intake Total 500 ml 2050 ml Balance 500 ml 2050 ml IV Total 500 ml 2050 ml # Voids 2 Imaging Last Impressions Chest X-Ray 04/20/18 0000 Signed Impressions: CONCLUSION: The lungs are clear. Laboratory Test 04/20/18 15:15 04/20/18 19:15 04/20/18 22:16 04/21/18 05:00 White Blood Count 9.7 TH/MM3 8.8 TH/MM3 Red Blood Count 4.47 MIL/MM3 4.06 MIL/MM3 Hemoglobin 12.9 GM/DL 12.0 GM/DL 11.8 GM/DL Hematocrit 39.8 % 36.9 % 36.9 % Mean Corpuscular Volume 89.1 FL 90.9 FL Mean Corpuscular Hemoglobin 28.9 PG 29.0 PG Mean Corpuscular Hemoglobin Concent 32.4 % 31.9 % Red Cell Distribution Width 13.7 % 14.0 % Platelet Count 163 TH/MM3 132 TH/MM3 Mean Platelet Volume 12.6 FL 12.0 FL Neutrophils (%) (Auto) 81.2 % Lymphocytes (%) (Auto) 10.8 % Monocytes (%) (Auto) 7.3 % Eosinophils (%) (Auto) 0.2 % Basophils (%) (Auto) 0.5 % Neutrophils # (Auto) 7.8 TH/MM3 Lymphocytes # (Auto) 1.0 TH/MM3 Monocytes # (Auto) 0.7 TH/MM3 Eosinophils # (Auto) 0.0 TH/MM3 Basophils # (Auto) 0.1 TH/MM3 CBC Comment DIFF FINAL Differential Comment Prothrombin Time 12.7 SEC Prothromb Time International Ratio 1.3 RATIO Activated Partial Thromboplast Time 36.4 SEC Blood Urea Nitrogen 67 MG/DL 67 MG/DL Creatinine 1.98 MG/DL 2.03 MG/DL Random Glucose 121 MG/DL 80 MG/DL Total Protein 7.4 GM/DL Albumin 2.9 GM/DL Calcium Level 8.5 MG/DL 8.3 MG/DL Alkaline Phosphatase 99 U/L Aspartate Amino Transf (AST/SGOT) 15 U/L Alanine Aminotransferase (ALT/SGPT) 27 U/L Total Bilirubin 0.5 MG/DL Sodium Level 139 MEQ/L 141 MEQ/L Potassium Level 3.4 MEQ/L 3.7 MEQ/L Chloride Level 108 MEQ/L 110 MEQ/L Carbon Dioxide Level 14.1 MEQ/L 17.1 MEQ/L Anion Gap 17 MEQ/L 14 MEQ/L Estimat Glomerular Filtration Rate 42 ML/MIN 41 ML/MIN Total Creatine Kinase 50 U/L Troponin I LESS THAN 0.02 NG/ML Nasal Screen MRSA (PCR) MRSA NOT DETECTED Physical Examination HEENT: Normocephalic; atraumatic CHEST: Even/unlabored CARDIAC: Irregular rate and rhythm, elevated rate ABDOMEN: Soft, nondistended, nontender; bowel sounds active. G-tube clamped EXTREMITIES: No clubbing, cyanosis, or edema. SKIN: Normal; no rash; no jaundice. LABOR RELATIONS OR PERSONNEL NEGOTIATOR: Alert and oriented x 1 (Bhavana Nunn) Assessment and Plan Plan Assessment: - Sent from [facility] for evaluation of GIB- pt denies any GI symptoms, is only oriented x 1. Hemoccult positive stool in ER and according to PROFILE GRINDER TECHNICIAN, reports of black, tarry stools, she is unsure if pt has had any since admission. H/H currently 11.8/36.9- consistent with labs during previous admission EGD Dec 06 by our service for possible PEG placement-->Esophagus appeared normal. Gastritis in the gastric antrum. Normal duodenal mucosa in the bulb and second portion of the duodenum. Unable to transilluminate to place PEG, therefore IR was consulted who placed 18 Fr gastrostomy tube on Dec 06. Pt still has G tube and states he does not take anything by mouth. - A-fib RVR- on Esmolol gtt- last dose of Eliquis was this morning Plan: EGD tomorrow Obtain consent NPO after MN Hold Eliquis Protonix Monitor H/H Transfuse as needed Further recommendations based on clinical course and results of above Pt has been seen and examined by myself and Dr. Matthew and this note is written on his behalf (hBavana Nunn) Physician Comments Seen and examined with ABHINAV, no active bleeding at present. EGD planned for tomorrow. IV protonix, monitor for bleeding. Thank you (Renata Matthew MD) Bhavana Nunn Apr 21, 2018 09:01 Renata Matthew MD Apr 21, 2018 18:19
[2018-04-21] MEDS: SODIUM CHLOR 0.9% 1000 ML INJ 1,000 ML IV SCH ×2 (10:30→22:50)
--- NOTE | 2018-04-21 10:31 | HHI.PR ---
Subjective Remarks Heart rate is still uncontrolled in the 120s and blood pressure is low. He states he is feeling okay. He denies chest pain or shortness of breath. Does not feel palpitations. Objective Vitals Vital Signs Date Time Temp Pulse Resp B/P (MAP) Pulse Ox O2 Delivery O2 Flow Rate FiO2 04/21/18 09:14 127 88/59 04/21/18 06:46 107 90/57 04/21/18 06:00 108 04/21/18 05:02 130 102/58 04/21/18 04:00 118 04/21/18 04:00 96.9 118 18 95/58 (70) 97 04/21/18 03:26 121 98/60 04/21/18 02:00 110 04/21/18 01:13 120 95/57 04/21/18 00:00 117 04/21/18 00:00 97.5 117 18 115/56 (75) 97 04/20/18 23:58 108 110/56 04/20/18 22:00 111 04/20/18 21:31 107 113/64 04/20/18 20:21 100 21 04/20/18 20:00 96.9 105 20 110/71 (84) 100 04/20/18 20:00 105 04/20/18 19:44 132 108/83 18 18:29 98 14 141/85 (103) 98 21 18 18:25 92 141/85 18 18:07 101 132/78 18 17:48 108 158/88 18 17:33 130 161/73 18 17:27 136 187/89 18 17:23 126 15 187/89 (121) 96 Room Air 04/20/18 15:56 116 158/80 (106) 04/20/18 15:16 124 20 171/72 (105) 96 Room Air 04/20/18 15:16 (105) Room Air 04/20/18 15:01 97.9 165 23 189/84 (119) 96 I/O 04/20/1804/20/18 18 18 18 04/21/18 07:00 15:00 23:00 07:00 15:00 23:00 Intake Total 500 ml 2050 ml Balance 500 ml 2050 ml IV Total 500 ml 2050 ml # Voids 2 Result Diagram: 04/21/18 0500 04/21/18 0500 Objective Remarks GENERAL: Patient appear older than stated age CARDIOVASCULAR: Rate in the 120s and irregular rhythm. No significant murmur. RESPIRATORY: Good respiratory efforts. Breath sounds equal and clear to auscultation bilaterally. GASTROINTESTINAL: Abdomen soft, non-tender, non-distended. Normal active bowel sounds MUSCULOSKELETAL: Extremities without cyanosis, or edema. NEURO: Slow to answer question.? Baseline. A/P Assessment and Plan GI bleed Hemoccult positive in the ED Serial H&H IV Protonix GI is following and planning for EGD. Atrial fibrillation with rapid ventricular response Status post Lopressor with continued RVR Esmolol drip -rate is still not controlled. Cardiology consulted, appreciate assistance. Patient appears to be dry also. I will give him a liter of normal saline and continue to monitor his heart rate and blood pressure. Discussed with RN to alert cardiology if no improvement. Anticoagulated on Eliquis but this is currently on hold due to GI bleed. Continue home medications: Metoprolol, diltiazem Diabetes mellitus Sliding-scale insulin Monitor blood glucose Chronic kidney disease Renal function worse today. May be due to dehydration. Gentle IV fluid as above. Seizure disorder Continue home Topamax Hypertension/hyperlipidemia Continue home medications Discharge Planning Complex patient with history of significant respiratory failure and prolonged dependence on ventilator. He remains unstable at this time. Continue care in the ICU. Popeye Dennison MD Apr 21, 2018 10:31
[2018-04-21 10:57] LABS: HEMOGLOBIN 11.9 GM/DL (13.0-17.0)
[2018-04-21] MEDS ORDERED: DIGOXIN 0.5 MG/2 ML VIAL IVS STA (13:04)
--- NOTE | 2018-04-21 13:52 | MB ---
cc: Bola Wheat DO DATE: 04/21/2018 REASON FOR CONSULTATION: Atrial fibrillation with rapid ventricular response. HISTORY OF PRESENT ILLNESS: Abhishek Bruno is a pleasant 58-year-old male who sees my partner, Dr. Mccormack, in the office and presented to [facility] Emergency Room from [facility] due to a GI bleed. Apparently, EMS was called as the patient was noted to have dark tarry stools. He was also found to be in atrial fibrillation with rapid ventricular response and has been started on an esmolol drip. Esmolol drip is currently at 200 mcg/kg/minute and his heart rate is still 110-130. While in the emergency room, the patient had a Hemoccult done, which was positive and stool was supposedly dark and tarry. He denies current chest pain or shortness of breath. Overall, he is a poor historian and most of the history is taken from the chart. PAST MEDICAL HISTORY: 1. Hyperlipidemia. 2. Diabetes mellitus. 3. Chronic kidney disease. 4. Seizure disorder. 5. Atrial fibrillation, on chronic anticoagulation with Eliquis. 6. Gastroesophageal reflux disease. 7. Nonischemic cardiomyopathy with an ejection fraction of 20%. 8. Morbid obesity. 9. Obstructive sleep apnea, not on CPAP. PAST SURGICAL HISTORY: 1. Cardiac catheterization (10/16/2016). No significant coronary artery disease noted. 2. Tracheostomy (06/24/2017). ALLERGIES: CASTOR OIL. MEDICATIONS: 1. Phenergan 25 mg IM every 6 hours as needed for nausea and vomiting. 2. DuoNeb every 4 hours as needed for shortness of breath. 3. Eliquis 5 mg b.i.d. 4. Lipitor 80 mg every night. 5. Metoprolol tartrate 50 mg b.i.d. 6. Diltiazem 90 mg daily. 7. Oxycodone 5 mg daily as needed for pain. 8. Topamax 200 mg daily. 9. Potassium chloride 40 mEq daily. 10. Lasix 40 mg daily. 11. Budesonide 0.5 mg every 12 hours. 12. Mag oxide 400 mg. 13. Zofran 4 mg as needed for nausea or vomiting. 14. Ranitidine 150 mg daily. 15. Reglan 5 mg daily. 16. Insulin sliding scale. FAMILY HISTORY: Denies premature coronary artery disease or sudden cardiac within the family. SOCIAL HISTORY: Denies current tobacco, alcohol or drug abuse. REVIEW OF SYSTEMS: Fourteen systems were reviewed including osteopathic. Pertinent positives and negatives above, otherwise negative. PHYSICAL EXAMINATION: VITAL SIGNS: Temperature 96.9, heart rate 127, blood pressure 88/59, respirations 18, pulse oximetry 97% on room air. GENERAL: The patient appears well in no acute distress, alert and awake. HEENT: Extraocular muscles intact. Mucous membranes moist. Poor dentition. NECK: Supple. No JVD at 45 degrees. No carotid bruits heard bilaterally. Carotid upstroke is brisk in nature. HEART: Irregularly irregular. Positive first and second heart sounds with no noted murmurs, gallops or rubs. LUNGS: Clear to auscultation bilaterally. No wheezes, rales or rhonchi. ABDOMEN: Soft, nontender, nondistended. No organomegaly noted. EXTREMITIES: Shows no clubbing, cyanosis or edema. Femoral and distal pulses intact bilaterally. NEUROLOGIC: No focal deficits. SKIN: Warm, dry and intact. OSTEOPATHIC: No kyphoscoliosis, lordosis or paraspinal tender points. LABORATORY DATA: Hemoglobin 11.8, hematocrit 36.9, platelets 132, potassium 3.7, BUN 67, creatinine 2.03. Troponin less than 0.02. Electrocardiogram (04/20/2018 at 15:08): Atrial fibrillation with rapid ventricular response, left anterior fascicular block, nonspecific ST-T wave changes. IMPRESSION: 1. Atrial fibrillation with rapid ventricular response. 2. Possible upper gastrointestinal bleed. 3. Diabetes mellitus. 4. Chronic kidney disease. 5. Nonischemic cardiomyopathy with an ejection fraction of 20%. 6. Seizure disorder. 7. Hypertension. 8. Hyperlipidemia. RECOMMENDATIONS: 1. Mr. Bruno appears to possibly had an upper gastrointestinal bleed and he will be seen by GI for consideration of EGD. 2. Eliquis has been held due to possible gastrointestinal bleed. Once further information is available about source of bleeding, then considerations will be made of possible continuing or stopping Eliquis. 3. At this time, his heart rate is not very well controlled on esmolol drip, which is maxed out. His Cardizem has been stopped and overall I am okay with this as he does have a previous ejection fraction of less than 20%. He will be loaded with digoxin and started on digoxin daily to try to help with heart rate as his blood pressure is relatively low. 4. Further recommendations will be made based on the hospital course. Thank you for allowing me to see Abhishek Bruno. If there are any questions, please do not hesitate to call. Bola Wheat DO VGP/TL , 01:04 PM , 01:51 PM
[2018-04-21 14:44] LABS: HEMATOCRIT 34.7 % (39.0-51.0); HEMOGLOBIN 11.1 GM/DL (13.0-17.0)
[2018-04-21] MEDS: DIGOXIN 0.5 MG/2 ML VIAL IVS SCH (20:11)
[2018-04-21] MEDS: ATORVASTATIN 80 MG TAB PEG SCH (21:52)
--- NOTE | 2018-04-21 23:11 | EKG ---
Date Performed: 04/20/2018 Time Performed: 15:08:42 PTAGE: 58 years EKG: ATRIAL FIBRILLATION WITH RAPID VENTRICULAR RESPONSE NONSPECIFIC ST & T-WAVE ABNORMALITY ABN ORMAL ECG PREVIOUS TRACING : 11/16/2017 06.55 DOCTOR: René Martinez Interpretating Date/Time 04/21/2018 23:00:50
[2018-04-22] VITALS (11 sets, daily range): BP systolic 93–102; BP diastolic 58–64; PULSE 101–120; RESP 20–22; TEMP 98.5; O2SAT 94–98
[2018-04-22] MEDS: ESMOLOL DRIP INJ PREMIX 250 ML IV PRN ×5 (00:05→21:23)
[2018-04-22] MEDS ORDERED: METOPROLOL TARTRATE 5 MG/5 ML VIAL IV PUSH ONE (01:00)
[2018-04-22] MEDS: DIGOXIN 0.5 MG/2 ML VIAL IVS SCH ×2 (01:12→07:15)
[2018-04-22] MEDS: CHLORHEXIDINE GLUCONATE 2 % 1 PACK (2 CLOTHS)(taper/protocol) TOPICAL SCH (04:00)
--- NOTE | 2018-04-22 08:54 | HHI.PR ---
Subjective Remarks Patient reports he is feeling okay. However heart rate is still uncontrolled. Rate in the 120s. He denies chest pain. Objective Vitals Vital Signs Date Time Temp Pulse Resp B/P (MAP) Pulse Ox O2 Delivery O2 Flow Rate FiO2 04/22/18 08:00 101 04/22/18 06:00 104 04/22/18 04:00 117 04/22/18 04:00 98.5 117 20 93/60 (71) 94 04/22/18 03:29 122 93/75 04/22/18 02:00 119 04/22/18 00:28 113 104/57 04/22/18 00:05 126 102/60 04/22/18 00:00 98.5 120 22 102/60 (74) 98 04/22/18 00:00 120 04/21/18 22:00 122 04/21/18 21:51 134 108/57 04/21/18 20:00 98.0 129 22 98/62 (74) 98 04/21/18 20:00 129 04/21/18 19:28 121 108/51 04/21/18 18:00 122 04/21/18 16:00 134 04/21/18 16:00 97.6 116 21 92/56 (68) 93 04/21/18 15:14 120 94/58 04/21/18 14:00 111 04/21/18 13:11 143 102/51 04/21/18 12:00 116 04/21/18 12:00 98.1 121 20 86/53 (64) 98 04/21/18 10:33 113 96/54 04/21/18 10:00 102 04/21/18 09:14 127 88/59 I/O 04/21/18 04/21/18 04/21/18 04/22/18 04/22/18 04/22/18 07:00 15:00 23:00 07:00 15:00 23:00 Intake Total 2050 ml 850 ml 2086 ml 63 ml Balance 2050 ml 850 ml 2086 ml 63 ml IV Total 2050 ml 850 ml 1750 ml Tube Feeding 246 ml 63 ml Tube Irrigant 90 ml # Voids 2 3 2 # Bowel Movements 1 1 Result Diagram: 04/21/18 1427 04/21/18 0500 Objective Remarks GENERAL: Patient appear older than stated age CARDIOVASCULAR: Rate in the 120s and irregular rhythm. No significant murmur. RESPIRATORY: Good respiratory efforts. Breath sounds equal and clear to auscultation bilaterally. GASTROINTESTINAL: Abdomen soft, non-tender, non-distended. Normal active bowel sounds MUSCULOSKELETAL: Extremities without cyanosis, or edema. NEURO: Slow to answer question.? Baseline. A/P Assessment and Plan GI bleed Hemoccult positive in the ED Serial H&H IV Protonix GI is following and planning for EGD today. Atrial fibrillation with rapid ventricular response Status post Lopressor with continued RVR Esmolol drip -rate is still not controlled. Appreciate cardiology assistance. Will discuss with Dr. Wheat today regarding rate. Anticoagulated on Eliquis but this is currently on hold due to GI bleed. Continue home medications: Metoprolol Diabetes mellitus Sliding-scale insulin Monitor blood glucose Chronic kidney disease Renal function worse today. May be due to dehydration. Gentle IV fluid as above. Seizure disorder Continue home Topamax Hypertension/hyperlipidemia Continue home medications Discharge Planning Complex patient with history of significant respiratory failure and prolonged dependence on ventilator. He remains unstable at this time. Continue care in the ICU. Popeye Dennison MD Apr 22, 2018 08:54
[2018-04-22] MEDS: PANTOPRAZOLE SODIUM 40 MG VIAL IV PUSH SCH ×2 (09:00→21:08)
[2018-04-22] MEDS ORDERED: DILTIAZEM HCL 90 MG TAB PEG SCH (09:00)
[2018-04-22] MEDS: SODIUM CHLORIDE 0.9% FLUSH 10 ML FLUSH IV FLUSH SCH ×2 (09:00→21:08)
[2018-04-22] MEDS: DIGOXIN 0.125 MG TAB PO SCH (10:37)
[2018-04-22] MEDS: TOPIRAMATE 200 MG TAB PEG SCH (10:38)
[2018-04-22] MEDS: FUROSEMIDE 40 MG TAB PO SCH (10:38)
[2018-04-22] MEDS: METOPROLOL TARTRATE 50 MG TAB PEG SCH ×4 (10:38→23:50)
--- NOTE | 2018-04-22 10:44 | PD.CARD.PN ---
Subjective Subjective Remarks No events overnight Feels well overall Awaiting GI scope Objective Medications Current Medications Medications (Trade) Dose Ordered Sig/Ashok Route Start Time Stop Time Status Last Admin Esmolol HCl/ Sodium Chloride 250 ml @ 0 mls/hr TITRATE PRN IV 04/20/18 17:15 04/22/18 03:29 (Brevibloc Bolus Inj) 60 mg BOLUS PRN IV PUSH 04/20/18 17:15 04/20/18 17:45 (Brevibloc Bolus Inj) 60 mg BOLUS PRN IV PUSH 04/20/18 17:15 (Brevibloc Bolus Inj) 120 mg BOLUS PRN IV PUSH 04/20/18 17:15 (NS Flush) 2 ml UNSCH PRN IV FLUSH 04/20/18 17:30 (NS Flush) 2 ml BID IV FLUSH 04/20/18 21:00 04/21/18 21:00 (Protonix Inj) 40 mg Q12H IV PUSH 04/21/18 09:00 04/21/18 21:51 (Eliquis) 5 mg BID PO 04/21/18 09:00 Future Hold 04/21/18 08:06 (Lipitor) 80 mg HS PEG 04/21/18 21:00 04/21/18 21:52 (Lasix) 40 mg DAILY PO 04/21/18 09:00 04/21/18 08:06 (Lopressor) 50 mg BID PEG 04/21/18 09:00 04/21/18 21:52 (Topamax) 200 mg DAILY PEG 04/21/18 09:00 04/21/18 08:06 ([facility]) Patient in critical care unit? Ass... [id number] .XX 04/21/18 01:00 04/21/18 01:00 (Chlorhexidine 2% Cloth) 3 pack DAILY@04 TOPICAL 04/21/18 04:00 04/25/18 04:01 04/22/18 04:00 (Chlorhexidine 2% Cloth) 3 pack UNSCH PRN TOPICAL 04/21/18 01:00 04/26/18 00:49 (Lanoxin) 0.125 mg DAILY PO 04/22/18 09:00 Vital Signs / I&O Vital Signs Date Time Temp Pulse Resp B/P (MAP) Pulse Ox O2 Delivery O2 Flow Rate FiO2 6/19/18 10:00 101 619/18 08:00 101 619/18 08:00 98.5 101 22 97/64 (75) 94 618 06:00 104 6/18 04:00 117 6/19/18 04:00 98.5 117 20 93/60 (71) 94 618 03:29 122 93/75 618 02:00 119 618 00:28 113 104/57 618 00:05 126 102/60 6/18 00:00 98.5 120 22 102/60 (74) 98 618 00:00 120 6/1818 22:00 122 61818 21:51 134 108/57 6/18/18 20:00 98.0 129 22 98/62 (74) 98 1818 20:00 129 6/18/18 19:28 121 108/51 618/18 18:00 122 61818 16:00 134 1818 16:00 97.6 116 21 92/56 (68) 93 18 15:14 120 94/58 618/18 14:00 111 1818 13:11 143 102/51 618/18 12:00 116 /1818 12:00 98.1 121 20 86/53 (64) 98 I/O 18/18 6/18/18 6/18/18 6/19/18 6/19/18 6/19/18 07:00 15:00 23:00 07:00 15:00 23:00 Intake Total 2050 ml 850 ml 2086 ml 63 ml Balance 2050 ml 850 ml 2086 ml 63 ml IV Total 2050 ml 850 ml 1750 ml Tube Feeding 246 ml 63 ml Tube Irrigant 90 ml # Voids 2 3 2 # Bowel Movements 1 1 Physical Exam GENERAL: NAD, AAOx3 SKIN: Warm and dry. HEAD: Atraumatic. Normocephalic. EYES: Pupils equal and round. No scleral icterus. No injection or drainage. ENT: No nasal bleeding or discharge. Mucous membranes pink and moist. NECK: Trachea midline. No JVD. CARDIOVASCULAR: Irregularly irregular RESPIRATORY: No accessory muscle use. Clear to auscultation. Breath sounds equal bilaterally. GASTROINTESTINAL: Abdomen soft, non-tender, nondistended. Hepatic and splenic margins not palpable. MUSCULOSKELETAL: Extremities without clubbing, cyanosis, or edema. No obvious deformities. NEUROLOGICAL: Awake and alert. No obvious cranial nerve deficits. Motor grossly within normal limits. Five out of 5 muscle strength in the arms and legs. Normal speech. PSYCHIATRIC: Appropriate mood and affect; insight and judgment normal. Laboratory Laboratory Tests Test 04/21/18 14:27 Hemoglobin 11.1 GM/DL Hematocrit 34.7 % Assessment and Plan Problem List: (1) Atrial fibrillation with RVR ICD Codes: I48.91 - Unspecified atrial fibrillation Status: Resolved (2) GI bleed ICD Codes: K92.2 - Gastrointestinal hemorrhage, unspecified Status: Acute (3) Paroxysmal atrial fibrillation ICD Codes: I48.0 - Paroxysmal atrial fibrillation Status: Acute (4) Respiratory failure ICD Codes: J96.90 - Respiratory failure, unspecified, unspecified whether with hypoxia or hypercapnia Assessment and Plan 1) Upper GI bleed For EGD today 2) Afib with RVR Somewhat better today Con't BB/Digoxin Esmolol drip decreased Eliquis on hold due to GI bleed Try to avoid CCB due to cardiomyopathy 3) NICM EF 20% Con't Lopressor, should be changed to Toprol XL on discharge for cardiomyopathy Problem Qualifiers (1) GI bleed: Qualified Codes: K92.2 - Gastrointestinal hemorrhage, unspecified Bola Wheat DO Apr 22, 2018 10:44
[2018-04-22] MEDS ORDERED: PROPOFOL 200 MG/20 ML AMP IV ONE (12:00)
[2018-04-22] MEDS ORDERED: PILL SPLITTER OTHER PRN (12:00)
[2018-04-22 12:03] LABS: AUTOMATED NEUTROPHIL # 5.3 TH/MM3 (1.8-7.7); BASOPHIL % 0.2 % (0.0-2.0); HEMATOCRIT 34.8 % (39.0-51.0); HEMOGLOBIN 11.3 GM/DL (13.0-17.0); LYMPH % 7.4 % (9.0-44.0); LYMPHOCYTE # 0.5 TH/MM3 (1.0-4.8); MEAN CORPUSCULAR HEMOGLOBIN 29.1 PG (27.0-34.0); MEAN CORPUSCULAR HGB CONC 32.3 % (32.0-36.0); MEAN PLATELET VOLUME 11.3 FL (7.0-11.0); NEUT % 77.4 % (16.0-70.0); PLATELET COUNT 125 TH/MM3 (150-450); RED BLOOD COUNT 3.87 MIL/MM3 (4.50-5.90); RED CELL DISTRIBUTION WIDTH 13.7 % (11.6-17.2); WHITE BLOOD COUNT 6.8 TH/MM3 (4.0-11.0)
[2018-04-22 12:22] LABS: CALCIUM 8.5 MG/DL (8.5-10.1); CREATININE 2.3 MG/DL (0.60-1.30)
--- NOTE | 2018-04-22 15:51 | GIPROC ---
[facility] [address] [facility]. [facility], [address] EGD PROCEDURE REPORT EXAM DATE: 04/22/2018 PATIENT NAME: Abhishek Bruno MR #: [id number] BIRTHDATE: 1960 ATTENDING: Renata Matthew MD ORDER #: [id number] MOTION PICTURE CAMERAMAN: Rosibel Villanueva STATUS: inpatient INDICATIONS: The patient is a 58 yr old male here for an EGD due to iron deficiency anemia PROCEDURE PERFORMED: EGD, diagnostic MEDICATIONS: None and Per Anesthesia. TOPICAL ANESTHETIC: CONSENT: The patient understands the risks and benefits of the procedure and understands that these risks include, but are not limited to: sedation, allergic reaction, infection, perforation and/or bleeding. Alternative means of evaluation and treatment include, among others: physical exam, x-rays, and/or surgical intervention. The patient elects to proceed with this endoscopic procedure. medical equipment was checked for proper function. Hand hygiene and appropriate measures for infection prevention was taken. After the risks, benefits and alternatives of the procedure were thoroughly explained, Informed consent was verified, confirmed and timeout was successfully executed by the treatment team. The patient was anesthetized with topical anesthesia and the Pentax [id number] endoscope was introduced through the mouth and advanced to the first portion of the duodenum. Retroflexed views revealed no abnormalities The gastroscope was then slowly withdrawn and removed. ESOPHAGUS: There was LA Class B esophagitis noted. STOMACH: There was erythematous moderate gastritis in the gastric antrum. There was a moderate amount of residual food seen in the gastric body. Due to the residual food, complete mucosal examination could not be performed. DUODENUM: The duodenal mucosa appeared normal in the duodenal bulb. ADVERSE EVENTS: There were no complications. IMPRESSIONS: 1. There was LA Class B esophagitis noted 2. There was erythematous gastritis in the gastric antrum 3. Food residue in the gastric body 4. Normal duodenal mucosa in the duodenal bulb 5. Retroflexed views revealed no abnormalities RECOMMENDATIONS: 1. Anti-reflux regimen 2. Continue PPI 3. Hematocrit PATIENT CONDITION: stable DISPOSITION: Inpatient REPEAT EXAM: Return as needed for EGD Renata Matthew MD eSigned: Renata Matthew MD 04/22/2018 3:51 PM cc: PATIENT NAME: Abhishek Bruno MR#: [id number]
[2018-04-22] MEDS ORDERED: DO NOT ADM ANY ANTICOAGULANT DRUGS PRN (16:00)
[2018-04-22] MEDS: FREE WATER G-TUBE SCH (20:00)
[2018-04-22] MEDS ORDERED: POTASSIUM CHLORIDE 25 MEQ EFFERVESCENT TAB NG SCH (20:00)
[2018-04-22] MEDS: ATORVASTATIN 80 MG TAB PEG SCH (21:08)
[2018-04-23] VITALS (12 sets, daily range): BP systolic 95–112; BP diastolic 51–67; PULSE 100–119; RESP 17–22; TEMP 97.7–98.5; O2SAT 96–98
[2018-04-23] MEDS: ESMOLOL DRIP INJ PREMIX 250 ML IV PRN ×7 (01:34→23:34)
[2018-04-23] MEDS: FREE WATER G-TUBE SCH ×7 (03:52→23:34)
[2018-04-23] MEDS: CHLORHEXIDINE GLUCONATE 2 % 1 PACK (2 CLOTHS)(taper/protocol) TOPICAL SCH (03:52)
[2018-04-23 04:17] LABS: HEMATOCRIT 37.4 % (39.0-51.0); HEMOGLOBIN 11.7 GM/DL (13.0-17.0); MEAN CELL VOLUME 91.6 FL (80.0-100.0); MEAN CORPUSCULAR HEMOGLOBIN 28.8 PG (27.0-34.0); MEAN CORPUSCULAR HGB CONC 31.4 % (32.0-36.0); MEAN PLATELET VOLUME 11.7 FL (7.0-11.0); PLATELET COUNT 138 TH/MM3 (150-450); RED BLOOD COUNT 4.08 MIL/MM3 (4.50-5.90); RED CELL DISTRIBUTION WIDTH 13.9 % (11.6-17.2); WHITE BLOOD COUNT 7.4 TH/MM3 (4.0-11.0)
[2018-04-23 04:46] LABS: BICARBONATE 12.9 MEQ/L (21.0-32.0); CALCIUM 8.7 MG/DL (8.5-10.1); CREATININE 2.38 MG/DL (0.60-1.30)
[2018-04-23] MEDS: METOPROLOL TARTRATE 50 MG TAB PEG SCH ×4 (06:14→23:33)
[2018-04-23] MEDS ORDERED: POTASSIUM CHLORIDE 25 MEQ EFFERVESCENT TAB PO ONE (06:45)
[2018-04-23] MEDS ORDERED: METOCLOPRAMIDE HCL 10 MG/2 ML VIAL IV ONE (07:30)
--- NOTE | 2018-04-23 08:50 | HHI.PR ---
Subjective Remarks HR is better but not optimal. Having diarrhea. Objective Vitals Vital Signs Date Time Temp Pulse Resp B/P (MAP) Pulse Ox O2 Delivery O2 Flow Rate FiO2 04/23/18 06:00 100 04/23/18 05:27 104 119/69 04/23/18 04:00 103 20 104/59 (74) 96 04/23/18 04:00 103 04/23/18 02:00 108 04/23/18 01:34 112 105/63 04/23/18 00:00 103 04/23/18 00:00 98.5 103 22 112/67 (82) 98 04/22/18 22:00 107 04/22/18 21:23 110 105/57 04/22/18 20:00 98.5 107 20 99/58 (72) 95 04/22/18 20:00 107 04/22/18 17:44 103 97/57 04/22/18 16:30 98.3 109 12 105/57 (73) 99 Room Air 04/22/18 16:15 110 12 109/57 (74) 97 Room Air 04/22/18 16:00 94 12 112/62 (79) 99 Room Air 04/22/18 15:59 98.3 93 12 110/59 (76) 99 Room Air 04/22/18 14:15 97.8 110 14 100/55 (70) 95 04/22/18 14:15 110 04/22/18 14:15 Room Air 04/22/18 14:00 103 04/22/18 12:00 98.5 103 22 97/62 (74) 94 04/22/18 12:00 101 04/22/18 10:38 116 94/52 04/22/18 10:00 101 I/O 04/22/18 04/22/18 04/22/18 04/23/18 04/23/18 04/23/18 07:00 15:00 23:00 07:00 15:00 23:00 Intake Total 563 ml 400 ml 1040 ml Output Total 600 ml Balance 563 ml 400 ml 440 ml IV Total 500 ml 250 ml 500 ml Tube Feeding 63 ml 540 ml Other 150 ml Output Urine Total 600 ml # Voids 2 # Bowel Movements 1 2 Result Diagram: 04/23/1830604/23/18306 Objective Remarks GENERAL: Patient appear older than stated age CARDIOVASCULAR: Rate in the 105 and irregular rhythm. No significant murmur. RESPIRATORY: Good respiratory efforts. Breath sounds equal and clear to auscultation bilaterally. GASTROINTESTINAL: Abdomen soft, non-tender, non-distended. Normal active bowel sounds MUSCULOSKELETAL: Extremities without cyanosis, or edema. NEURO: Slow to answer question.? Baseline. A/P Assessment and Plan GI bleed Hemoccult positive in the ED Serial H&H IV Protonix GI following. EGD showed gastritis, no active bleeding. Continue PPI Atrial fibrillation with rapid ventricular response Esmolol drip -rate is still not optimal Appreciate cardiology assistance. Continue Metoprolol 25 mg Q6hrs. Anticoagulated on Eliquis. Given poor renal functions, will restart at 2.5 mg BID. Diabetes mellitus Sliding-scale insulin Monitor blood glucose Chronic kidney disease Renal function worse today. Probably due to uncontrolled afib and anemia. Follow for recovery. Hold Lasix for today. Seizure disorder Continue home Topamax Hypertension/hyperlipidemia Continue home medications Diarrhea: -Check stool for C diff. Discharge Planning Stable for transfer to [facility]. Popeye Dennison MD Apr 23, 2018 08:50
[2018-04-23] MEDS: TOPIRAMATE 200 MG TAB PEG SCH (08:51)
[2018-04-23] MEDS: PANTOPRAZOLE SODIUM 40 MG VIAL IV PUSH SCH ×2 (08:52→20:11)
[2018-04-23] MEDS: SODIUM CHLORIDE 0.9% FLUSH 10 ML FLUSH IV FLUSH SCH ×2 (08:53→20:12)
[2018-04-23] MEDS: DIGOXIN 0.125 MG TAB PO SCH (08:53)
[2018-04-23] MEDS ORDERED: APIXABAN 5 MG TABLET PO SCH (09:00)
--- NOTE | 2018-04-23 10:27 | HHI.GIFU ---
Subjective Remarks Pt resting in bed TF turned off, received morning medication Denies any GI complaints at this time H/H stable 2 BMs since EGD, denies any continued black stools (Bhavana Nunn) Objective Vitals I&O Vital Signs Date Time Temp Pulse Resp B/P (MAP) Pulse Ox O2 Delivery O2 Flow Rate FiO2 04/23/18 08:51 96 93/58 04/23/18 06:00 100 04/23/18 05:27 104 119/69 04/23/18 04:00 103 20 104/59 (74) 96 04/23/18 04:00 103 04/23/18 02:00 108 04/23/18 01:34 112 105/63 04/23/18 00:00 103 04/23/18 00:00 98.5 103 22 112/67 (82) 98 04/22/18 22:00 107 04/22/18 21:23 110 105/57 04/22/18 20:00 98.5 107 20 99/58 (72) 95 04/22/18 20:00 107 04/22/18 17:44 103 97/57 04/22/18 16:30 98.3 109 12 105/57 (73) 99 Room Air 04/22/18 16:15 110 12 109/57 (74) 97 Room Air 04/22/18 16:00 94 12 112/62 (79) 99 Room Air 04/22/18 15:59 98.3 93 12 110/59 (76) 99 Room Air 04/22/18 14:15 97.8 110 14 100/55 (70) 95 04/22/18 14:15 110 04/22/18 14:15 Room Air 04/22/18 14:00 103 04/22/18 12:00 98.5 103 22 97/62 (74) 94 04/22/18 12:00 101 04/22/18 10:38 116 94/52 I/O 04/22/18 04/22/18 04/22/18 04/23/18 04/23/18 04/23/18 07:00 15:00 23:00 07:00 15:00 23:00 Intake Total 563 ml 400 ml 1040 ml Output Total 600 ml Balance 563 ml 400 ml 440 ml IV Total 500 ml 250 ml 500 ml Tube Feeding 63 ml 540 ml Other 150 ml Output Urine Total 600 ml # Voids 2 # Bowel Movements 1 2 Laboratory Laboratory Tests Test 04/22/18 11:25 04/23/18 03:07 04/23/18 04:57 White Blood Count 6.8 7.4 Red Blood Count 3.87 4.08 Hemoglobin 11.3 11.7 Hematocrit 34.8 37.4 Mean Corpuscular Volume 90.0 91.6 Mean Corpuscular Hemoglobin 29.1 28.8 Mean Corpuscular Hemoglobin Concent 32.3 31.4 Red Cell Distribution Width 13.7 13.9 Platelet Count 125 138 Mean Platelet Volume 11.3 11.7 Neutrophils (%) (Auto) 77.4 Lymphocytes (%) (Auto) 7.4 Monocytes (%) (Auto) 15.0 Eosinophils (%) (Auto) 0.0 Basophils (%) (Auto) 0.2 Neutrophils # (Auto) 5.3 Lymphocytes # (Auto) 0.5 Monocytes # (Auto) 1.0 Eosinophils # (Auto) 0.0 Basophils # (Auto) 0.0 CBC Comment DIFF FINAL Differential Comment Blood Urea Nitrogen 70 72 Creatinine 2.30 2.38 Random Glucose 80 88 Calcium Level 8.5 8.7 Sodium Level 146 148 Potassium Level 3.2 3.1 Chloride Level 117 119 Carbon Dioxide Level 12.0 12.9 Anion Gap 17 16 Estimat Glomerular Filtration Rate 36 34 Magnesium Level 2.2 Stool C. difficile Toxin (PCR) INVALID Stl C. difficile Toxin Epiderm 027 INVALID Imaging Last Impressions Chest X-Ray 04/20/18 0000 Signed Impressions: CONCLUSION: The lungs are clear. Physical Exam HEENT: Normocephalic; atraumatic CHEST: Even/unlabored CARDIAC: Irregular rate and rhythm, rate controlled. ABDOMEN: Obese, soft, nontender, bowel sounds active EXTREMITIES: No clubbing, cyanosis, or edema. SKIN: Normal; no rash; no jaundice. INSTRUCTOR NURSE: Lethargic (Bhavana Nunn) Assessment and Plan Plan Assessment: - Sent from [facility] for evaluation of GIB- pt denies any GI symptoms, is only oriented x 1. Hemoccult positive stool in ER and according to [employer], reports of black, tarry stools, she is unsure if pt has had any since admission. H/H currently 11.8/36.9- consistent with labs during previous admission EGD Dec 06 by our service for possible PEG placement-->Esophagus appeared normal. Gastritis in the gastric antrum. Normal duodenal mucosa in the bulb and second portion of the duodenum. Unable to transilluminate to place PEG, therefore IR was consulted who placed 18 Fr gastrostomy tube on Dec 06. Pt still has G tube and states he does not take anything by mouth. - A-fib RVR- on Esmolol gtt- last dose of Eliquis was this morning (04/23) S/P EGD yesterday. 2 BMs since EGD, deneis any continued black stools. No GI complaints at this time. H/H stable over night. Discussed with Dr. Dennison, Eliquis restarted at half dose for a-fib. EGD--> Class B esophagitis noted. Erythematous gastritis in the gastric antrum. Food residue in the gastric body. Normal duodenal mucosa in the duodenal bulb. Plan: Protonix OK for Eliquis Monitor H/H TF per dietary Our service will sign off, please reconsult as needed Have pt follow up with GI after DC Pt has been seen and examined by myself and Dr. Dinero and this note is written on her behalf (Bhavana Nunn) Physician Comments seen, examined agree with above (Lakeisha Dinero MD) Bhavana Nunn Apr 23, 2018 10:27 Lakeisha Dinero MD Apr 23, 2018 17:58
--- NOTE | 2018-04-23 13:47 | PD.CARD.PN ---
Subjective Subjective Remarks No events overnight Feels well overall No blood in bowel movements Objective Medications Current Medications Medications (Trade) Dose Ordered Sig/Ashok Route Start Time Stop Time Status Last Admin Esmolol HCl/ Sodium Chloride 250 ml @ 0 mls/hr TITRATE PRN IV 04/20/18 17:15 04/23/18 12:02 (Brevibloc Bolus Inj) 60 mg BOLUS PRN IV PUSH 04/20/18 17:15 04/20/18 17:45 (Brevibloc Bolus Inj) 60 mg BOLUS PRN IV PUSH 04/20/18 17:15 (Brevibloc Bolus Inj) 120 mg BOLUS PRN IV PUSH 04/20/18 17:15 (NS Flush) 2 ml UNSCH PRN IV FLUSH 04/20/18 17:30 (NS Flush) 2 ml BID IV FLUSH 04/20/18 21:00 04/23/18 08:53 (Protonix Inj) 40 mg Q12H IV PUSH 04/21/18 09:00 04/23/18 08:52 (Lipitor) 80 mg HS PEG 04/21/18 21:00 04/22/18 21:08 (Lasix) 40 mg DAILY PO 04/21/18 09:00 Future Hold 04/22/18 10:38 (Topamax) 200 mg DAILY PEG 04/21/18 09:00 04/23/18 08:51 ([facility] Nursing Information) Patient in critical care unit? Ass... Q361D .XX 04/21/18 01:00 04/21/18 01:00 (Chlorhexidine 2% Cloth) 3 pack DAILY@04 TOPICAL 04/21/18 04:00 04/25/18 04:01 04/23/18 03:52 (Chlorhexidine 2% Cloth) 3 pack UNSCH PRN TOPICAL 04/21/18 01:00 04/26/18 00:49 (Lanoxin) 0.125 mg DAILY PO 04/22/18 09:00 04/23/18 08:53 (Lopressor) 25 mg Q6HR PEG 04/22/18 12:00 04/23/18 12:02 (Pill Splitter) 1 ea UNSCH PRN OTHER 04/22/18 12:00 ([facility] Nursing Information) ALL NURSING DEPARTME... UNSCH PRN .XX 04/22/18 16:00 04/23/18 15:59 (Free Water) 200 ml Q4HR G-TUBE 04/22/18 20:00 04/23/18 12:00 (Eliquis) 2.5 mg BID PO 04/23/18 09:00 04/23/18 10:15 Vital Signs / I&O Vital Signs Date Time Temp Pulse Resp B/P (MAP) Pulse Ox O2 Delivery O2 Flow Rate FiO2 04/23/18 12:02 109 95/56 04/23/18 08:51 96 93/58 04/23/18 08:00 97.7 108 20 96/55 (69) 96 04/23/18 06:00 100 04/23/18 05:27 104 119/69 04/23/18 04:00 103 20 104/59 (74) 96 04/23/18 04:00 103 04/23/18 02:00 108 04/23/18 01:34 112 105/63 04/23/18 00:00 103 04/23/18 00:00 98.5 103 22 112/67 (82) 98 04/22/18 22:00 107 04/22/18 21:23 110 105/57 04/22/18 20:00 98.5 107 20 99/58 (72) 95 04/22/18 20:00 107 04/22/18 17:44 103 97/57 04/22/18 16:30 98.3 109 12 105/57 (73) 99 Room Air 04/22/18 16:15 110 12 109/57 (74) 97 Room Air 04/22/18 16:00 94 12 112/62 (79) 99 Room Air 04/22/18 15:59 98.3 93 12 110/59 (76) 99 Room Air 04/22/18 14:15 97.8 110 14 100/55 (70) 95 04/22/18 14:15 110 04/22/18 14:15 Room Air 04/22/18 14:00 103 I/O 04/22/18 04/22/18 04/22/18 04/23/18 04/23/18 04/23/18 07:00 15:00 23:00 07:00 15:00 23:00 Intake Total 563 ml 400 ml 1040 ml Output Total 600 ml Balance 563 ml 400 ml 440 ml IV Total 500 ml 250 ml 500 ml Tube Feeding 63 ml 540 ml Other 150 ml Output Urine Total 600 ml # Voids 2 # Bowel Movements 1 2 Physical Exam GENERAL: NAD, AAOx3 SKIN: Warm and dry. HEAD: Atraumatic. Normocephalic. EYES: Pupils equal and round. No scleral icterus. No injection or drainage. ENT: No nasal bleeding or discharge. Mucous membranes pink and moist. NECK: Trachea midline. No JVD. CARDIOVASCULAR: Irregularly irregular RESPIRATORY: No accessory muscle use. Clear to auscultation. Breath sounds equal bilaterally. GASTROINTESTINAL: Abdomen soft, non-tender, nondistended. Hepatic and splenic margins not palpable. MUSCULOSKELETAL: Extremities without clubbing, cyanosis, or edema. No obvious deformities. NEUROLOGICAL: Awake and alert. No obvious cranial nerve deficits. Motor grossly within normal limits. Five out of 5 muscle strength in the arms and legs. Normal speech. PSYCHIATRIC: Appropriate mood and affect; insight and judgment normal. Laboratory Laboratory Tests Test 04/23/18 03:07 04/23/18 04:57 White Blood Count 7.4 TH/MM3 Red Blood Count 4.08 MIL/MM3 Hemoglobin 11.7 GM/DL Hematocrit 37.4 % Mean Corpuscular Volume 91.6 FL Mean Corpuscular Hemoglobin 28.8 PG Mean Corpuscular Hemoglobin Concent 31.4 % Red Cell Distribution Width 13.9 % Platelet Count 138 TH/MM3 Mean Platelet Volume 11.7 FL Blood Urea Nitrogen 72 MG/DL Creatinine 2.38 MG/DL Random Glucose 88 MG/DL Calcium Level 8.7 MG/DL Sodium Level 148 MEQ/L Potassium Level 3.1 MEQ/L Chloride Level 119 MEQ/L Carbon Dioxide Level 12.9 MEQ/L Anion Gap 16 MEQ/L Estimat Glomerular Filtration Rate 34 ML/MIN Magnesium Level 2.2 MG/DL Stool C. difficile Toxin (PCR) INVALID Stl C. difficile Toxin Epiderm 027 INVALID Assessment and Plan Problem List: (1) Atrial fibrillation with RVR ICD Codes: I48.91 - Unspecified atrial fibrillation Status: Resolved (2) GI bleed ICD Codes: K92.2 - Gastrointestinal hemorrhage, unspecified Status: Acute (3) Paroxysmal atrial fibrillation ICD Codes: I48.0 - Paroxysmal atrial fibrillation Status: Acute (4) Respiratory failure ICD Codes: J96.90 - Respiratory failure, unspecified, unspecified whether with hypoxia or hypercapnia Assessment and Plan 1) Upper GI bleed EGD negative for bleed 2) Afib with RVR Somewhat better today Con't BB/Digoxin Esmolol drip still on Will attempt to increase meds Restart Eliquis Should be on 5mg BID as only one of the criteria met (need 2/3 for lower dose) Try to avoid CCB due to cardiomyopathy, but may need to use with elevated heart rates 3) NICM EF 20% Con't Lopressor, should be changed to Toprol XL on discharge for cardiomyopathy Problem Qualifiers (1) GI bleed: Qualified Codes: K92.2 - Gastrointestinal hemorrhage, unspecified Bola Wheat DO Apr 23, 2018 13:47
[2018-04-23] MEDS: ATORVASTATIN 80 MG TAB PEG SCH (20:11)
[2018-04-23] MEDS: APIXABAN 5 MG TABLET PO SCH (20:11)
[2018-04-24] VITALS (12 sets, daily range): BP systolic 93–115; BP diastolic 50–75; PULSE 102–121; RESP 18–24; TEMP 97.4–97.7; O2SAT 89–98
[2018-04-24] MEDS: FREE WATER G-TUBE SCH ×4 (04:00→17:04)
[2018-04-24] MEDS: CHLORHEXIDINE GLUCONATE 2 % 1 PACK (2 CLOTHS)(taper/protocol) TOPICAL SCH (04:00)
[2018-04-24] MEDS: ESMOLOL DRIP INJ PREMIX 250 ML IV PRN ×5 (04:19→21:01)
[2018-04-24 04:36] LABS: HEMATOCRIT 41.5 % (39.0-51.0); MEAN CELL VOLUME 92.4 FL (80.0-100.0); MEAN CORPUSCULAR HEMOGLOBIN 28.9 PG (27.0-34.0); MEAN CORPUSCULAR HGB CONC 31.3 % (32.0-36.0); MEAN PLATELET VOLUME 11.2 FL (7.0-11.0); PLATELET COUNT 135 TH/MM3 (150-450); RED BLOOD COUNT 4.48 MIL/MM3 (4.50-5.90); WHITE BLOOD COUNT 8.9 TH/MM3 (4.0-11.0)
[2018-04-24 05:08] LABS: BICARBONATE 14.4 MEQ/L (21.0-32.0); CALCIUM 8.6 MG/DL (8.5-10.1); CREATININE 2.38 MG/DL (0.60-1.30)
[2018-04-24] MEDS: METOPROLOL TARTRATE 50 MG TAB PEG SCH ×3 (05:16→17:04)
[2018-04-24] MEDS: PANTOPRAZOLE SODIUM 40 MG VIAL IV PUSH SCH ×2 (08:53→20:03)
[2018-04-24] MEDS: SODIUM CHLORIDE 0.9% FLUSH 10 ML FLUSH IV FLUSH SCH ×2 (08:54→20:04)
[2018-04-24] MEDS: DIGOXIN 0.125 MG TAB PO SCH (08:54)
[2018-04-24] MEDS: TOPIRAMATE 200 MG TAB PEG SCH (08:54)
[2018-04-24] MEDS: APIXABAN 5 MG TABLET PO SCH ×2 (08:54→20:03)
[2018-04-24] MEDS ORDERED: POTASSIUM CHLORIDE 25 MEQ EFFERVESCENT TAB PO ONE (09:30)
--- NOTE | 2018-04-24 11:19 | PD.CARD.PN ---
Subjective Subjective Remarks No events overnight Overall lethargic Objective Medications Current Medications Medications (Trade) Dose Ordered Sig/Ashok Route Start Time Stop Time Status Last Admin Esmolol HCl/ Sodium Chloride 250 ml @ 0 mls/hr TITRATE PRN IV 04/20/18 17:15 04/24/18 07:52 (Brevibloc Bolus Inj) 60 mg BOLUS PRN IV PUSH 04/20/18 17:15 04/20/18 17:45 (Brevibloc Bolus Inj) 60 mg BOLUS PRN IV PUSH 04/20/18 17:15 (Brevibloc Bolus Inj) 120 mg BOLUS PRN IV PUSH 04/20/18 17:15 (NS Flush) 2 ml UNSCH PRN IV FLUSH 04/20/18 17:30 (NS Flush) 2 ml BID IV FLUSH 04/20/18 21:00 04/24/18 08:54 (Protonix Inj) 40 mg Q12H IV PUSH 04/21/18 09:00 04/24/18 08:53 (Lipitor) 80 mg HS PEG 04/21/18 21:00 04/23/18 20:11 (Lasix) 40 mg DAILY PO 04/21/18 09:00 Future Hold 04/22/18 10:38 (Topamax) 200 mg DAILY PEG 04/21/18 09:00 04/24/18 08:54 ([facility] Nursing Information) Patient in critical care unit? Ass... Q361D .XX 04/21/18 01:00 04/21/18 01:00 (Chlorhexidine 2% Cloth) 3 pack DAILY@04 TOPICAL 04/21/18 04:00 04/25/18 04:01 04/24/18 04:00 (Chlorhexidine 2% Cloth) 3 pack UNSCH PRN TOPICAL 04/21/18 01:00 04/26/18 00:49 (Lanoxin) 0.125 mg DAILY PO 04/22/18 09:00 04/24/18 08:54 (Pill Splitter) 1 ea UNSCH PRN OTHER 04/22/18 12:00 (Free Water) 200 ml Q4HR G-TUBE 04/22/18 20:00 04/24/18 07:52 (Eliquis) 5 mg BID PO 04/23/18 21:00 04/24/18 08:54 (Lopressor) 50 mg Q6HR PEG 04/23/18 18:00 04/24/18 05:16 (Cardizem) 30 mg Q6HR PO 04/24/18 12:00 UNV Vital Signs / I&O Vital Signs Date Time Temp Pulse Resp B/P (MAP) Pulse Ox O2 Delivery O2 Flow Rate FiO2 04/24/18 10:00 114 04/24/18 08:00 97.5 112 18 99/60 (73) 89 04/24/18 08:00 112 04/24/18 07:52 116 110/72 04/24/18 06:00 111 04/24/18 04:19 109 115/67 04/24/18 04:00 110 04/24/18 04:00 97.4 110 22 115/67 (83) 96 04/24/18 02:00 102 04/24/18 00:00 103 04/24/18 00:00 97.7 103 20 93/50 (64) 98 04/23/18 23:34 105 98/65 04/23/18 22:00 100 04/23/18 20:00 97.8 105 20 101/65 (77) 98 04/23/18 20:00 105 04/23/18 19:58 96 106/55 04/23/18 18:00 107 04/23/18 16:00 110 04/23/18 16:00 97.9 110 17 95/51 (66) 97 04/23/18 15:59 96 103/56 04/23/18 14:00 119 04/23/18 12:02 109 95/56 04/23/18 12:00 111 04/23/18 12:00 97.7 111 21 95/56 (69) 97 I/O 04/23/18 04/23/18 04/23/18 04/24/18 04/24/18 04/24/18 07:00 15:00 23:00 07:00 15:00 23:00 Intake Total 1040 ml 500 ml 270 ml 1375 ml 250 ml Output Total 600 ml 1350 ml 800 ml Balance 440 ml 500 ml -1080 ml 575 ml 250 ml IV Total 500 ml 500 ml 250 ml 500 ml 250 ml Tube Feeding 540 ml 20 ml 275 ml Other 600 ml Output Urine Total 600 ml Stool Total 1350 ml 800 ml # Voids 1 2 # Bowel Movements 2 Physical Exam GENERAL: NAD SKIN: Warm and dry. HEAD: Atraumatic. Normocephalic. EYES: Pupils equal and round. No scleral icterus. No injection or drainage. ENT: No nasal bleeding or discharge. Mucous membranes pink and moist. NECK: Trachea midline. No JVD. CARDIOVASCULAR: Irregularly irregular RESPIRATORY: No accessory muscle use. Clear to auscultation. Breath sounds equal bilaterally. GASTROINTESTINAL: Abdomen soft, non-tender, nondistended. Hepatic and splenic margins not palpable. MUSCULOSKELETAL: Extremities without clubbing, cyanosis, or edema. No obvious deformities. NEUROLOGICAL: Awake and alert. No obvious cranial nerve deficits. Motor grossly within normal limits. Five out of 5 muscle strength in the arms and legs. Normal speech. PSYCHIATRIC: Appropriate mood and affect; insight and judgment normal. Laboratory Laboratory Tests Test 04/24/18 03:45 White Blood Count 8.9 TH/MM3 Red Blood Count 4.48 MIL/MM3 Hemoglobin 13.0 GM/DL Hematocrit 41.5 % Mean Corpuscular Volume 92.4 FL Mean Corpuscular Hemoglobin 28.9 PG Mean Corpuscular Hemoglobin Concent 31.3 % Red Cell Distribution Width 14.0 % Platelet Count 135 TH/MM3 Mean Platelet Volume 11.2 FL Blood Urea Nitrogen 64 MG/DL Creatinine 2.38 MG/DL Random Glucose 94 MG/DL Calcium Level 8.6 MG/DL Sodium Level 152 MEQ/L Potassium Level 3.0 MEQ/L Chloride Level 123 MEQ/L Carbon Dioxide Level 14.4 MEQ/L Anion Gap 15 MEQ/L Estimat Glomerular Filtration Rate 34 ML/MIN Assessment and Plan Problem List: (1) Atrial fibrillation with RVR ICD Codes: I48.91 - Unspecified atrial fibrillation Status: Resolved (2) GI bleed ICD Codes: K92.2 - Gastrointestinal hemorrhage, unspecified Status: Acute (3) Paroxysmal atrial fibrillation ICD Codes: I48.0 - Paroxysmal atrial fibrillation Status: Acute (4) Respiratory failure ICD Codes: J96.90 - Respiratory failure, unspecified, unspecified whether with hypoxia or hypercapnia Assessment and Plan 1) Upper GI bleed EGD negative for bleed 2) Afib with RVR Con't BB/Digoxin Esmolol drip still on, attempt to wean Check digoxin level Unfortunately not able to control heart rate, will add Cardizem Restart Eliquis Should be on 5mg BID as only one of the criteria met (need 2/3 for lower dose) 3) NICM EF 20% Con't Lopressor, should be changed to Toprol XL on discharge for cardiomyopathy Problem Qualifiers (1) GI bleed: Qualified Codes: K92.2 - Gastrointestinal hemorrhage, unspecified Bola Wheat DO Apr 24, 2018 11:19
[2018-04-24] MEDS: DILTIAZEM HCL 30 MG TAB PO SCH ×2 (12:49→17:03)
--- NOTE | 2018-04-24 15:43 | HHI.PR ---
Subjective Remarks Patient seen earlier this morning. Rate is still not controlled. He has no new complaints. Objective Vitals Vital Signs Date Time Temp Pulse Resp B/P (MAP) Pulse Ox O2 Delivery O2 Flow Rate FiO2 04/24/18 14:00 118 04/24/18 12:50 114 90/65 04/24/18 12:00 114 04/24/18 12:00 97.7 114 21 112/75 (87) 97 04/24/18 10:00 114 04/24/18 08:00 97.5 112 18 99/60 (73) 89 04/24/18 08:00 112 04/24/18 07:52 116 110/72 04/24/18 06:00 111 04/24/18 04:19 109 115/67 04/24/18 04:00 110 04/24/18 04:00 97.4 110 22 115/67 (83) 96 04/24/18 02:00 102 04/24/18 00:00 103 04/24/18 00:00 97.7 103 20 93/50 (64) 98 04/23/18 23:34 105 98/65 04/23/18 22:00 100 04/23/18 20:00 97.8 105 20 101/65 (77) 98 04/23/18 20:00 105 04/23/18 19:58 96 106/55 04/23/18 18:00 107 04/23/18 16:00 110 04/23/18 16:00 97.9 110 17 95/51 (66) 97 04/23/18 15:59 96 103/56 I/O 04/23/18 04/23/18 04/23/18 04/24/18 04/24/18 04/24/18 07:00 15:00 23:00 07:00 15:00 23:00 Intake Total 1040 ml 500 ml 270 ml 1375 ml 500 ml Output Total 600 ml 1350 ml 800 ml Balance 440 ml 500 ml -1080 ml 575 ml 500 ml IV Total 500 ml 500 ml 250 ml 500 ml 500 ml Tube Feeding 540 ml 20 ml 275 ml Other 600 ml Output Urine Total 600 ml Stool Total 1350 ml 800 ml # Voids 1 2 # Bowel Movements 2 Result Diagram: 04/24/18 0345 04/24/18 034 Objective Remarks GENERAL: Patient appear older than stated age CARDIOVASCULAR: Rate in the 115 and irregular rhythm. No significant murmur. RESPIRATORY: Good respiratory efforts. Breath sounds equal and clear to auscultation bilaterally. GASTROINTESTINAL: Abdomen soft, non-tender, non-distended. Normal active bowel sounds MUSCULOSKELETAL: Extremities without cyanosis, or edema. NEURO: Slow to answer question.? Baseline. A/P Assessment and Plan GI bleed Hemoccult positive in the ED Serial H&H IV Protonix GI following. EGD showed gastritis, no active bleeding. Continue PPI Atrial fibrillation with rapid ventricular response Esmolol drip -rate is still not optimal Appreciate cardiology assistance. Continue Metoprolol 25 mg Q6hrs. On Digoxin. Cardizem started per Cardiology Anticoagulated on Eliquis. Restart 5 mg BID per Cardiology recs. Diabetes mellitus Sliding-scale insulin Monitor blood glucose Chronic kidney disease Renal function stable today. Probably due to uncontrolled afib and anemia. Follow for recovery. Hold Lasix for today. Seizure disorder Continue home Topamax Hypertension/hyperlipidemia Continue home medications Hypernatremia/Hypokalemia: d5-1/4 NS +KCL X 1 L. Monitor Diarrhea: -Stool for C diff. indeterminate by PCR. Monitor. Loose stool may be related to Tube feeds Discharge Planning Continue care in the ICU Popeye Dennison MD Apr 24, 2018 15:43
[2018-04-24] MEDS ORDERED: POTASSIUM CHLORIDE INJ 10 MEQ in DEXTROSE 5%-NACL 0.225% INJ 1,000 ML IV SCH (17:00)
[2018-04-24] MEDS ORDERED: DIGOXIN 0.5 MG/2 ML VIAL IV PUSH ONE (17:45)
[2018-04-24] MEDS: ATORVASTATIN 80 MG TAB PEG SCH (20:03)
[2018-04-25] VITALS (18 sets, daily range): BP systolic 76–145; BP diastolic 52–71; PULSE 100–154; RESP 16–36; TEMP 97.2–102.3; O2SAT 0–100
[2018-04-25] MEDS: METOPROLOL TARTRATE 50 MG TAB PEG SCH ×4 (00:09→18:00)
[2018-04-25] MEDS: DILTIAZEM HCL 30 MG TAB PO SCH ×4 (00:09→18:00)
[2018-04-25] MEDS: ESMOLOL DRIP INJ PREMIX 250 ML IV PRN (02:07)
[2018-04-25] MEDS: CHLORHEXIDINE GLUCONATE 2 % 1 PACK (2 CLOTHS)(taper/protocol) TOPICAL SCH (04:00)
[2018-04-25] MEDS ORDERED: ETOMIDATE 40 MG/20 ML VIAL ONE (04:21)
[2018-04-25] MEDS ORDERED: fentaNYL DRIP 250 ML IV PRN (04:30)
[2018-04-25] MEDS ORDERED: PROPOFOL 1000 MG/100 ML INJ 100 ML IV PRN (04:30)
--- NOTE | 2018-04-25 04:30 | PD.PROCEDR ---
Procedure Note Procedure DATE: 04/25/2018 PROCEDURE: Orotracheal intubation INDICATION: Unresponsive on 100% nonrebreather mask DETAILS OF PROCEDURE The patient was placed in optimal position and preoxygenated with 100% FiO2 via bag valve mask. At the start oxygen saturation was unknown %. The patient was administered no medications IV. I entered the oropharynx with a size 4 laryngoscope blade and obtained a grade 2 view of the airway. On single attempt a size 8.0 cuffed endotracheal tube was passed through the vocal cords. Correct tube location was confirmed with end tidal CO2 detector and by auscultating over bilateral lung lopez. The endotracheal tube was secured with adhesive tape at a depth of 24 cm at the lips. The patient was connected to the ventilator. The patient tolerated the procedure well without any apparent complications. Oxygen saturations were maintained greater than 95% all times. STAT chest x-ray pending at time of dictation. Aung Grossman MD Apr 25, 2018 04:30
--- NOTE | 2018-04-25 04:30 | PD.CONS ---
[facility] Service Critical Care Medicine Consult Requested By Reason for Consult Respiratory failure Primary Care Physician Yomi Panchal MD History of Present Illness This is a 58 year old AAM. Date of admission 04/20/2018. Date of consultation . Past medical history significant for a-fib, essential hypertension, hyperlipidemia, CKD stage IIIB, DM, seizure disorder, and GERD. He presented to [facility] originally from [facility] for evaluation of reports of GIB. Pt was found to be Hemoccult positive by ER provider, and according to [employer] there has been reports of black, tarry stools. Patient was also noted to be in atrial fibrillation with rapid ventricular response and was started on esmolol drip which she has been maintained on since admission. He has been evaluated cardiology/Dr. Wheat for his atrial fibrillation and ejection fraction 20% for chronic systolic heart failure currently on a regimen of metoprolol tartrate 50 mg every 6 hours, esmolol drip and digoxin 0.125 mg daily. He remains on apixaban 5 mg twice daily From a GI standpoint, patient received an EGD on 04/22 which revealed LA class B esophagitis, erosive gastritis. He is currently on pantoprazole 40 mg IV twice daily. C. difficile is currently pending. Patient has had tube feeding intolerance This morning, patient was unresponsive 100% nonrebreather. Patient was intubated without anesthesia. All laboratories and imaging is currently pending at time of dictation. Review of Systems ROS Limitations: Intubated, Altered Mental Status Past Family Social History Allergies: Coded Allergies: castor oil (Unverified Allergy, Unknown, THROW UP, 11/14/17) Past Medical History Seizure disorder NOS Essential hypertension Hyperlipidemia Atrial fibrillation Chronic apixaban use Gastroesophageal reflux disease Chronic kidney disease stage IIIa Chronic thrombocytopenia Chronic systolic heart failure ejection fraction 20% Chronic venous insufficiency Chronic constipation Obstructive sleep apnea not using CPAP Past Surgical History Tracheostomy since decannulated PEG tube placement Coronary catheterization Reported Medications Promethazine HCl 25 Mg IM Q6H PRN Metoprolol Tartrate 25 Mg Tab 50 Mg PEG BID Metoclopramide HCl 5 Mg PO DAILY \Ranitidine HCl 150 Mg Tab 150 Mg PO DAILY Potassium Chloride 40 Meq PEG DAILY Magnesium Oxide 400 Mg Tab 400 Mg PO DIRECTED Oxycodone HCl 5 Mg PO DAILY PRN Ondansetron HCl 4 Mg PO DAILY PRN Ipratropium-Albuterol Neb 0.5-2.5 Mg/3 Ml Neb 1 Nebule INH Q4HR NEB Humalog Inj (Insulin Human Lispro) 1,000 Unit/10 Ml Vial 1-9 Units SQ ACHS Max dose at bedtime:( )units; sugars< 70,(0)units; sugars 150-199,(1)unit; sugars 200-249,(3)units; sugars 250-299,(5)units; sugars 300-349,(7)units; sugars more than 349,(9)units. Furosemide 40 Mg Tab 40 Mg PO DAILY Diltiazem HCl 90 Mg Tab 90 Mg PEG DAILY Budesonide Neb 0.5 Mg/2 Ml Neb 0.5 Mg NEB Q12HR NEB Polyvinyl Alcohol1.4% Soln 1-2 Drop EACH EYE PRN PRN Atorvastatin Calcium 80 Mg Tab 80 Mg PEG HS Topiramate 200 Mg Tab 200 Mg PEG DAILY Apixaban 5 Mg Tab 5 Mg PEG BID Active Ordered Medications Reviewed in EMR Family History Mother possibly with leukemia. Father of [place] in 50s. Brother with diabetes mellitus. Social History Lifelong non-smoker. No EtOH or illicit drug use Physical Exam Vital Signs Vital Signs Date Time Temp Pulse Resp B/P (MAP) Pulse Ox O2 Delivery O2 Flow Rate FiO2 04/25/18 02:07 109 135/93 04/25/18 02:00 112 04/25/18 00:00 97.2 123 20 97/58 (71) 97 04/25/18 00:00 123 04/24/18 23:05 114 64/40 04/24/18 22:00 106 04/24/18 21:01 104 89/51 04/24/18 20:00 97.5 108 24 98/62 (74) 97 04/24/18 20:00 108 04/24/18 18:24 124 114/62 04/24/18 18:00 121 04/24/18 16:00 97.7 120 20 100/60 (73) 94 04/24/18 16:00 117 04/24/18 14:00 118 04/24/18 12:50 114 90/65 04/24/18 12:00 114 04/24/18 12:00 97.7 114 21 112/75 (87) 97 04/24/18 10:00 114 04/24/18 08:00 97.5 112 18 99/60 (73) 89 04/24/18 08:00 112 04/24/18 07:52 116 110/72 04/24/18 06:00 111 Physical Exam GENERAL: 50-year-old AA male currently orotracheally intubated SKIN: Warm and dry. HEAD: Atraumatic. Normocephalic. EYES: Pupils equal and round about 3 mm bilaterally and reactive. No scleral icterus. No injection or drainage. ENT: No nasal bleeding or discharge. Mucous membranes pink and moist. NECK: Trachea midline. + JVD. Well-healed prior tracheostomy scar CARDIOVASCULAR: Tachycardia, IR. S1, S2. Positive S4. 2/6 systolic murmur RESPIRATORY: No accessory muscle use. Clear to auscultation. Breath sounds equal bilaterally. GASTROINTESTINAL: Abdomen soft, non-tender obese. PEG tube site is clean dry and intact without erythema MUSCULOSKELETAL: Extremities with 2+ pitting upper and lower extremity edema. No obvious deformities. NEUROLOGICAL: Unresponsive. Currently with a gag and a cough. Positive corneal reflex. Patient did not require any sedation for intubation Laboratory Laboratory Tests Test 04/24/18 15:05 Digoxin Level 1.0 Result Diagram: 04/24/18 0345 04/24/18 0345 Imaging Last Impressions Chest X-Ray 04/20/18 0000 Signed Impressions: CONCLUSION: The lungs are clear. Septic Shock Reassessment Septic shock perfusion: reassessment completed Assessment and Plan Assessment and Plan Neuro/Psych: Acute toxic metabolic encephalopathy Seizure disorder NOS EEG brain ordered CT brain ordered stat Currently on topiramate 200 mg daily. Continue Propofol/fentanyl written for sedation/analgesia while intubated Goal of RASS -2 Daily sedation vacation Acetaminophen 650 mg by tube every 6 hours as needed fever CV: Chronic systolic heart failure ejection fraction less than 20% 06/20 Moderate MR/TR Atrial fibrillation with rapid ventricular response Essential hypertension Hyperlipidemia Moderate pulmonary hypertension Chronic venous insufficiency Followed by cardiology/Dr. Wheat Currently metoprolol tartrate 50 mg every 6 hours, digoxin 0.125 mg daily - level 1.0 on 04/24 -and esmolol drip titrated to keep heart rate less than around 100 Cardiology added diltiazem 30 mg by tube every 6 hours. On 90 mg at home Received 1 L normal saline bolus after intubation along with colloid challenge 2D echocardiogram since 06/20 revealed EF less than 20%. Moderate MR/TR. Bilateral ventricular enlargement. Moderate pulmonary hypertension On furosemide 40 mg daily. Resp: Acute hypoxemic respiratory failure Obstructive sleep apnea PRVC 16/550/1//100 Ventilator bundle Albuterol/ipratropium aerosols every 4 hours with albuterol aerosols every 2 hours as needed dyspnea Spontaneous breathing trials when clinically indicated Follow postintubation ABG and chest x-ray Restart budesonide 0.5/2 1 inhalation twice daily GI: LA class B esophagitis Erosive gastritis Nausea/vomiting Chronic constipation Gastroesophageal reflux disease Hypoalbuminemia Tube feeds currently on hold. Nutrition recommends Glucerna 1.5 goal 60 cc an hour EGD 04/22 bilateral esophagus revealed LA class B esophagitis, erosive gastritis. Pantoprazole 40 mg IV twice daily for GI prophylaxis. On ranitidine 150 mg daily at shelter No bowel regimen. C. difficile still pending On ondansetron and metoclopramide at [facility] : Anderson catheter has been placed for accurate I's and O's in a critically ill patient Endo: Diabetes mellitus Sliding scale insulin/medium regimen with Accu-Cheks every 6 hours with Novulin R. On lispro at home Renal: Chronic kidney disease stage IIIa with creatinine slowly increasing Monitor urine output Accurate I's and O's A.m. laboratories still pending Heme: Chronic apixaban use Chronic thrombocytopenia with history of bone marrow biopsy Continue apixaban 5 mg twice daily Follow-up on CBC this a.m. ID: Start of vancomycin and piperacillin/tazobactam Blood cultures 2, sputum, urine, influenza and urine Legionella pneumococcal antigens ordered 04/25 FEN: Hypernatremia Hypopotassemia Currently in free water 200 cc every 6 hours Replace electrolytes as clinically indicated MSK: Elevated BMI Weight loss encouraged Access -Utilize peripheral IV. Central line if indicated Prophylax -GI -pantoprazole -DVT -SCD/apixaban Level 3 consult Code Status Full code Discussed Condition With Patient. Care plan discussed and all questions answered. Dahlia Urbina, mother: [phone] Aung Grossman MD Apr 25, 2018 04:30
[2018-04-25] MEDS ORDERED: RESP: ALBUTEROL 2.5 MG/3 ML NEB (PRN) NEB (04:45)
[2018-04-25] MEDS ORDERED: ALBUMIN 5% INJ 500 ML IV ONE (05:00)
[2018-04-25] MEDS ORDERED: SODIUM CHLOR 0.9% 1000 ML INJ 1,000 ML IV ONE (05:00)
[2018-04-25] MEDS ORDERED: TERBUTALINE INJ 1 MG/ML AMP SQ PRN ×2 (05:00→09:45)
[2018-04-25] MEDS ORDERED: Vancomycin Consult Pharmacy 1 EA OTHER SCH (05:30)
[2018-04-25] MEDS ORDERED: DEXTROSE 50% IN WATER 50 ML VIAL(D50) IV PUSH PRN (05:30)
[2018-04-25] MEDS ORDERED: GLUCAGON 1 MG/ML VIAL OTHER PRN (05:30)
[2018-04-25] MEDS: FREE WATER G-TUBE SCH ×4 (05:35→16:37)
[2018-04-25] MEDS ORDERED: SODIUM BICARBONATE 8.4% INJ 50 MEQ/50 ML SYR IV PUSH ONE ×2 (05:45→09:45)
[2018-04-25] MEDS ORDERED: ACETAMINOPHEN 650 MG/20.3 ML UDC PO PRN (05:45)
[2018-04-25] MEDS: INSULIN NovoLIN REGULAR SUPPLEMENTAL SCALE SQ SCH ×3 (06:00→18:00)
--- NOTE | 2018-04-25 06:13 | RADRPT ---
EXAM DATE: 04/25/2018 5:53 AM EDT AGE/SEX: 58 years / Male INDICATIONS: Status post intubation. CLINICAL DATA: This is the patient's initial encounter. Patient reports that signs and symptoms have been present for 1 day and indicates a pain score of Nonresponsive. MEDICAL/SURGICAL HISTORY: Congestive heart failure. A-fib. None. COMPARISON: [facility], CHEST SINGLE AP, 04/20/2018. . FINDINGS: A single AP semierect portable view of the chest was obtained and demonstrates interval intubation wi th the endotracheal tube tip approximately 4 cm above the alexa. The patient is rotated to the left. There are no confluent infiltrates or effusions. The heart size is at the upper limits of normal. Th e bony thorax is intact. CONCLUSION: 1. Interval intubation. 2. Rotated exam with no acute infiltrates or effusions. Electronically signed by: Berto Anthony MD 04/25/2018 6:12 AM EDT
[2018-04-25] MEDS: NOREPINEPHRINE-DEXTROSE DRIP 250 ML IV PRN ×6 (06:32→22:30)
[2018-04-25] MEDS ORDERED: VASOPRESSIN 20 UNITS/ML VIAL ONE (07:39)
[2018-04-25] MEDS: RESP: BUDESONIDE 0.5 MG/2 ML NEB NEB SCH ×2 (08:00→20:31)
[2018-04-25] MEDS: RESP: ALBUTEROL 2.5 MG/IPRATROPIUM 0.5 MG NEB (SCH) NEB ×4 (08:00→20:31)
[2018-04-25] MEDS ORDERED: VANCOMYCIN 1750 MG/NS 500 ML IV ONE ×2 (08:00)
[2018-04-25] MEDS: APIXABAN 5 MG TABLET PO SCH ×2 (09:00→21:00)
[2018-04-25] MEDS: PANTOPRAZOLE SODIUM 40 MG VIAL IV PUSH SCH ×2 (09:00→22:27)
[2018-04-25] MEDS: TOPIRAMATE 200 MG TAB PEG SCH (09:00)
[2018-04-25] MEDS: ARTIFICIAL TEARS OPTH OINT 3.5 APPLIC/3.5 GM TUBO EACH EYE SCH ×2 (09:00→21:00)
[2018-04-25] MEDS: DIGOXIN 0.125 MG TAB PO SCH (09:00)
[2018-04-25] MEDS ORDERED: SODIUM BICARBONATE 8.4% INJ 50 ML ONE (09:38)
[2018-04-25] MEDS ORDERED: DIGOXIN 0.5 MG/2 ML VIAL IV PUSH ONE (09:45)
--- NOTE | 2018-04-25 09:49 | PD.PROCEDR ---
Central Line Procedure REASON FOR PROCEDURE Central venous access, refractory shock PROCEDURE PERFORMED Central line placement: Ultrasound ultrasound-guided right femoral catheter placement CONSENT Informed consent for procedure was obtained from family ANESTHESIA Local injection of 1% Lidocaine DESCRIPTION OF THE PROCEDURE The patient was placed in supine, mild Trendelenburg position. The area was exposed and cleansed with ChloraPrep, times two. Large sterile drape was used to cover the patient, with the site exposed, under sterile conditions including cap, face mask, sterile gown, and sterile gloves. On second attempt, the introducer needle was inserted with negative pressure in syringe and venous flash was obtained. The guide wire was then advanced without any restriction and the needle was removed. The dilator was used without any complications. Using Seldinger technique the 20 CM 7F triple lumen catheter was advanced over the guide wire to a depth of 18 centimeters. The guide wire was removed. All ports were aspirated with dark venous blood return and flushed easily with sterile saline. All ports were capped. Antibiotic disc was placed around central line at puncture site. The central line was secured to the skin with two interrupted 2.0 silk sutures. The area was bandaged with sterile see- through central line bandage. RADIOLOGICAL DATA Ultrasound guidance was used to locate right femoral vein. Doppler/color flow was used to confirm venous flow. COMPLICATIONS: No apparent complications ESTIMATED BLOOD LOSS: Less than 1 cc. Niesha Fatima MD Apr 25, 2018 09:49
[2018-04-25] MEDS ORDERED: PHENYLEPHRINE HCL 10 MG/ML VIAL ONE (09:51)
--- NOTE | 2018-04-25 09:52 | PD.PROCEDR ---
Procedure Note Procedure Ultrasound-guided left radial arterial line placement Indication-severe shock invasive blood pressure monitoring The patient was placed in supine, position. The area was exposed and cleansed with ChloraPrep, times two. Sterile drape was used to cover the patient, with the site exposed, under sterile conditions including cap, face mask, sterile gown, and sterile gloves. On first attempt, the introducer needle was inserted and arterial flash was obtained. The guide wire was then advanced without any restriction and the needle was removed. Using Seldinger technique the 16 cm arterial catheter was advanced over the guide wire to a depth of 15 centimeters. The guide wire was removed. Good arterial waveform obtained. Antibiotic disc was placed around central line at puncture site. The arterial line was secured to the skin with one interrupted 2.0 silk sutures. Blood loss was less than 1 mL Niesha Fatima MD Apr 25, 2018 09:52
[2018-04-25] MEDS ORDERED: VANCOMYCIN INJ 2,250 MG in SODIUM CHLORID 0.9% 500 ML INJ 500 ML IV ONE (10:00)
[2018-04-25] MEDS: VASOPRESSIN INJ 40 UNITS in DEXTROSE 5% IN WATER 100ML INJ 98 ML IV SCH ×2 (10:00)
[2018-04-25 10:07] LABS: HEMATOCRIT 40.1 % (39.0-51.0); HEMOGLOBIN 12.4 GM/DL (13.0-17.0); MEAN CELL VOLUME 91.1 FL (80.0-100.0); MEAN CORPUSCULAR HEMOGLOBIN 28.1 PG (27.0-34.0); MEAN CORPUSCULAR HGB CONC 30.9 % (32.0-36.0); MEAN PLATELET VOLUME 11.1 FL (7.0-11.0); PLATELET COUNT 224 TH/MM3 (150-450); RED CELL DISTRIBUTION WIDTH 14.6 % (11.6-17.2)
--- NOTE | 2018-04-25 10:12 | HHI.CCPN ---
Subjective Remarks/Hospital Course This is a 58 year old AAM. Date of admission 04/20/2018. Date of consultation . Past medical history significant for a-fib, essential hypertension, hyperlipidemia, CKD stage IIIB, DM, seizure disorder, and GERD. He presented to [facility] originally from [facility] for evaluation of reports of GIB. Pt was found to be Hemoccult positive by ER provider, and according to [employer] there has been reports of black, tarry stools. Patient was also noted to be in atrial fibrillation with rapid ventricular response and was started on esmolol drip which she has been maintained on since admission. He has been evaluated cardiology/Dr. Wheat for his atrial fibrillation and ejection fraction 20% for chronic systolic heart failure currently on a regimen of metoprolol tartrate 50 mg every 6 hours, esmolol drip and digoxin 0.125 mg daily. He remains on apixaban 5 mg twice daily From a GI standpoint, patient received an EGD on 04/22 which revealed LA class B esophagitis, erosive gastritis. He is currently on pantoprazole 40 mg IV twice daily. C. difficile is currently pending. Patient has had tube feeding intolerance. This morning, patient was unresponsive 100% nonrebreather. Patient was intubated without anesthesia. All laboratories and imaging is currently pending at time of dictation. SUBJ 04/25: [facility] Re evaluation note. Patient remains in profound shock most likely cardiogenic. Initially was on 10 mcg/min of Levophed titrated up currently to 30 mcg/min. Vasopressin added at 0.04 international units per minute. Patient remains profoundly hypotensive. Yosvany-Synephrine also added and titrated up to 300 mcg/min. Give additional 0.5 mg digoxin for rate control. Unfortunately cannot use esmolol infusion due to profound hypotension. Proceed with DC cardioversion. I have placed right femoral central line and left radial arterial Objective Vital Signs Date Time Temp Pulse Resp B/P (MAP) Pulse Ox O2 Delivery O2 Flow Rate FiO2 04/25/18 08:19 0 80 04/25/18 06:50 133 108/53 04/25/18 04:00 100.0 36 04/22/18 16:30 Room Air Intake and Output 04/25/18 04/25/18 04/26/18 08:00 16:00 00:00 Intake Total 2500 ml Output Total 1950 ml Balance 550 ml Result Diagram: 04/24/18 0345 04/24/18 0345 Other Results Laboratory Tests Test 04/25/18 05:26 04/25/18 09:45 Blood Gas Puncture Site LT RADIAL Blood Gas Patient Temperature 98.6 Blood Gas HCO3 6 mmol/L (22-26) Blood Gas Base Excess -22.0 mmol/L (-2-2) Blood Gas Oxygen Saturation 97 % (90-100) Arterial Blood pH 7.08 (7.380-7.420) Arterial Blood Partial Pressure CO2 22 mmHg (38-42) Arterial Blood Partial Pressure O2 407 mmHg (61-120) Arterial Blood Oxygen Content 19.5 Vol % (12.0-20.0) Arterial Blood Carboxyhemoglobin 0.0 % (0-4) Arterial Blood Methemoglobin 1.7 % (0-2) Blood Gas Hemoglobin 13.5 G/DL (12.0-16.0) Oxygen Delivery Device VENTILATOR Blood Gas Ventilator Setting SEE COMMENT Blood Gas Inspired Oxygen 100 % Imaging Last Impressions Chest X-Ray 04/20/18 0000 Signed Impressions: CONCLUSION: The lungs are clear. Objective Remarks GENERAL: 50-year-old AA male currently orotracheally intubated, in profound shock. Morbidly obese SKIN: Warm and dry. HEAD: Atraumatic. Normocephalic. EYES: Pupils equal and round about 3 mm bilaterally, round ENT: No nasal bleeding or discharge. Orotracheally intubated NECK: Trachea midline. + JVD. Well-healed prior tracheostomy scar CARDIOVASCULAR: Tachycardia, IR, atrial fibrillation with rapid ventricular response. S1, S2. Positive S4. 2/6 systolic murmur. Remains in profound shock, currently on maximum dose of Levophed vasopressin and Yosvany-Synephrine RESPIRATORY: Air entry equal, bilaterally. Clear to auscultation. Breath sounds equal bilaterally. GASTROINTESTINAL: Abdomen soft, non-tender obese. PEG tube site is clean dry and intact without erythema MUSCULOSKELETAL: Extremities with 2+ pitting upper and lower extremity edema. No obvious deformities. NEUROLOGICAL: Unresponsive. Currently with a gag and a cough. Positive corneal reflex. Not requiring any sedation on ventilator A/P Assessment and Plan Neuro/Psych: Acute toxic metabolic encephalopathy Seizure disorder NOS EEG brain ordered, pending CT brain ordered stat-[address] brain Currently on topiramate 200 mg daily. Continue Propofol/fentanyl written for sedation/analgesia while intubated, holding due to altered mentation and severe hypotension Acetaminophen 650 mg by tube every 6 hours as needed fever CV: Severe refractory shock most likely cardiogenic Chronic systolic heart failure ejection fraction less than 20% 06/20 Moderate MR/TR Atrial fibrillation with rapid ventricular response Essential hypertension Hyperlipidemia Moderate pulmonary hypertension Chronic venous insufficiency In refractory stroke on Levophed 30 mcg/min, vasopressin 0.04 international units per minute, Yosvany-Synephrine at 300 micrograms per minute Proceed with DC cardioversion, I have informed Dr. Wheat cardiology Initiate Gage Trac monitoring Bicarb 2 g push and bicarb infusion Holding metoprolol tartrate 50 mg every 6 hours,and esmolol drip. Holding diltiazem 30 mg by tube every 6 hours. On 90 mg at home Received 1 L normal saline bolus after intubation along with colloid challenge, additional 1 L normal saline bolus given 2D echocardiogram since 06/20 revealed EF less than 20%. Moderate MR/TR. Bilateral ventricular enlargement. Moderate pulmonary hypertension On furosemide 40 mg daily-will hold Unable to use dobutamine or milrinone at this time due to tachycardia Continue Eliquis for anti-coagulant Resp: Acute hypoxemic respiratory failure Obstructive sleep apnea PRVC 24/550//. Increase TV to 650 Ventilator bundle Albuterol/ipratropium aerosols every 4 hours with albuterol aerosols every 2 hours as needed dyspnea Repeat ABG in afternoon Budesonide 0.5/2 1 inhalation twice daily GI: LA class B esophagitis Erosive gastritis Nausea/vomiting Chronic constipation Gastroesophageal reflux disease Hypoalbuminemia Tube feeds currently on hold. Nutrition recommends Glucerna 1.5 goal 60 cc an hour EGD 04/22 bilateral esophagus revealed LA class B esophagitis, erosive gastritis. Pantoprazole 40 mg IV twice daily for GI prophylaxis. On ranitidine 150 mg daily at long term No bowel regimen. C. difficile still pending On ondansetron and metoclopramide at [facility] Endo: Diabetes mellitus Sliding scale insulin/medium regimen with Accu-Cheks every 6 hours with Novulin R. On lispro at home Renal: Chronic kidney disease stage IIIa with creatinine slowly increasing Monitor urine output Accurate I's and O's Anderson catheter has been placed for accurate I's and O's in a critically ill patient Heme: Chronic apixaban use Chronic thrombocytopenia with history of bone marrow biopsy Continue apixaban 5 mg twice daily Follow-up on CBC this a.m. ID: Continue vancomycin and piperacillin/tazobactam Blood cultures 2, sputum, urine, influenza and urine Legionella pneumococcal antigens ordered 04/25 FEN: Hypernatremia Hypopotassemia Currently in free water 200 cc every 6 hours Replace electrolytes as clinically indicated Access -Utilize peripheral IV. Central line if indicated Prophylax -GI -pantoprazole -DVT -SCD/apixaban CCT 90 MIN Patient remains critically ill requiring multiple intervention including multiple vasopressor agents. Currently on maximum doses of Levophed vasopressin and Yosvany-Synephrine. Will attempt DC cardioversion to improve blood pressure. Remains in refractory shock most likely cardiogenic. Prognosis is very poor. I will discuss with family Niesha Fatima MD Apr 25, 2018 10:12
[2018-04-25 10:18] LABS: INTERNATIONAL NORMALIZED RATIO 1.4 RATIO; PROTHROMBIN TIME - PATIENT 14.5 SEC (9.8-11.6)
--- NOTE | 2018-04-25 10:28 | PD.PROCEDR ---
Procedure Note Procedure Procedure performed-DC cardioversion Indication-refractory shock on 3 pressors, atrial fibrillation with RVR Description of procedure: Patient is intubated and on a ventilator. Currently remains in atrial fibrillation with RVR. Unable to use sedation due to profound shock. However patient is encephalopathic. Pads were applied and DC cardioversion attempted initially with 70 J, followed by 100 J without any response. Third attempt at 150 J patient converted to normal sinus rhythm and sinus tachycardia. There was immediately some improvement in systolic blood pressure. Patient is on chronic anticoagulation with Eliquis which will be continued. I will start amiodarone infusion. Niesha Fatima MD Apr 25, 2018 10:28
[2018-04-25] MEDS ORDERED: AMIODARONE INJ 450 MG in SODIUM CHLOR 0.9% (EXCEL) INJ 241 ML IV PRN (10:38)
[2018-04-25 10:47] LABS: BICARBONATE 7.7 MEQ/L (21.0-32.0); CALCIUM 7.9 MG/DL (8.5-10.1); CREATININE 4.36 MG/DL (0.60-1.30)
[2018-04-25] MEDS: CHLORHEXIDINE 0.12% (ORAL KIT) 15 ML CUP MT SCH ×2 (11:01→22:26)
[2018-04-25] MEDS: SODIUM CHLORIDE 0.9% FLUSH 10 ML FLUSH IV FLUSH SCH ×2 (11:01→22:27)
[2018-04-25] MEDS: PHENYLEPHRINE INJ 80 MG in DEXTROSE 5% IN WATE 500 ML INJ 492 ML IV PRN ×6 (11:16→22:31)
[2018-04-25 11:39] LABS: BILIRUBIN, URINE NEG (NEG); BLOOD, URINE NEG (NEG); GLUCOSE,URINE NEG (NEG); KETONE, URINE TRACE mg/dL (NEG); NITRITE,URINE NEG (NEG); URINE COLOR YELLOW (YELLW/STRAW); URINE LEUKOCYTE ESTERASE NEG (NEG)
[2018-04-25 11:52] LABS: CREATININE, RANDOM URINE 104.2 MG/DL
--- NOTE | 2018-04-25 11:52 | PD.CARD.PN ---
Subjective Subjective Remarks Events overnight noted Afib with RVR with hypotension on 3 vasopressors requiring cardioversion, now sinus rhythm Blood pressure mildly better in NSR but still significantly hypotensive on 3 vasopressors Objective Medications Current Medications Medications (Trade) Dose Ordered Sig/Ashok Route Start Time Stop Time Status Last Admin (NS Flush) 2 ml UNSCH PRN IV FLUSH 04/20/18 17:30 (NS Flush) 2 ml BID IV FLUSH 04/20/18 21:00 04/25/18 11:01 (Protonix Inj) 40 mg Q12H IV PUSH 04/21/18 09:00 04/24/18 20:03 (Lipitor) 80 mg HS PEG 04/21/18 21:00 04/24/18 20:03 (Topamax) 200 mg DAILY PEG 04/21/18 09:00 04/24/18 08:54 ([facility] [place] [facility] [place]) Patient in critical care unit? Ass... [id number] .XX 04/21/18 01:00 04/21/18 01:00 (Chlorhexidine 2% Cloth) 3 pack UNSCH PRN TOPICAL 04/21/18 01:00 04/26/18 00:49 (Lanoxin) 0.125 mg DAILY PO 04/22/18 09:00 04/24/18 08:54 (Pill Splitter) 1 ea UNSCH PRN OTHER 04/22/18 12:00 (Eliquis) 5 mg BID PO 04/23/18 21:00 04/24/18 20:03 (Lopressor) 50 mg Q6HR PEG 04/23/18 18:00 04/25/18 00:09 (Cardizem) 30 mg Q6HR PO 04/24/18 12:00 04/25/18 00:09 (Free Water) 200 ml Q6HR G-TUBE 04/24/18 18:00 04/25/18 00:00 (Peridex 0.12% Liq) 15 ml BID@08,20 MT 04/25/18 08:00 04/25/18 11:01 (Lacrilube Opht Oint) 1 applic Q12HR EACH EYE 04/25/18 09:00 (Duoneb Neb) 1 ampule Q4HR NEB NEB 04/25/18 08:00 (Albuterol Neb) 2.5 mg Q2HR NEB PRN NEB 04/25/18 04:45 Norepinephrine Bitartrate 250 ml @ 7.5 mls/hr TITRATE PRN IV 04/25/18 05:00 04/25/18 11:02 Piperacillin Sod/ Tazobactam Sod 50 ml @ 100 mls/hr Q6H IV 04/25/18 06:00 Pharmacy Profile Note 0 ml @ 0 mls/hr UNSCH OTHER 04/25/18 05:30 (D50w (Vial) Inj) 50 ml UNSCH PRN IV PUSH 04/25/18 05:30 (Glucagon Inj) 1 mg UNSCH PRN OTHER 04/25/18 05:30 (NovoLIN R SUPPLEMENTAL SCALE) 1 Q6HR SQ 04/25/18 06:00 (Tylenol 650 Mg/ 20 ml Liq) 650 mg Q6H PRN PO 04/25/18 05:45 (Pulmicort Respule Neb) 0.5 mg Q12HR NEB NEB 04/25/18 08:00 Vancomycin HCl 2250 mg/Sodium Chloride 522.5 ml @ 250 mls/hr ONCE ONCE IV 04/25/18 10:00 04/25/18 12:05 Sodium Bicarbonate 150 meq/Sterile Water 1,000 ml @ 150 mls/hr Q6H40M IV 04/25/18 09:45 Phenylephrine HCl 80 mg/Dextrose 500 ml @ 15 mls/hr TITRATE PRN IV 04/25/18 10:00 04/25/18 11:16 (Brethine Inj) 1 mg UNSCH PRN SQ 04/25/18 09:45 (Lactulose Liq) 30 ml QID PO 04/25/18 13:00 Metronidazole 100 ml @ 100 mls/hr Q8H IV 04/25/18 12:00 Amiodarone HCl 450 mg/Sodium Chloride 250 ml @ 33.33 mls/ hr Q7H31M PRN IV 04/25/18 10:38 (SoluCORTEF INJ) 100 mg Q8HR IV 04/25/18 11:45 UNV Vital Signs / I&O Vital Signs Date Time Temp Pulse Resp B/P (MAP) Pulse Ox O2 Delivery O2 Flow Rate FiO2 04/25/18 11:35 97 60 04/25/18 11:16 104 77/54 04/25/18 11:02 104 84/60 04/25/18 08:19 0 80 04/25/18 06:50 133 108/53 04/25/18 06:32 147 49/18 04/25/18 06:00 154 04/25/18 05:50 97 80 04/25/18 04:30 100 04/25/18 04:20 97 100 04/25/18 04:00 100.0 124 36 145/71 (95) 04/25/18 04:00 124 04/25/18 02:07 109 135/93 04/25/18 02:00 112 04/25/18 00:00 97.2 123 20 97/58 (71) 97 04/25/18 00:00 123 04/24/18 23:05 114 64/40 04/24/18 22:00 106 04/24/18 21:01 104 89/51 04/24/18 20:00 97.5 108 24 98/62 (74) 97 04/24/18 20:00 108 04/24/18 18:24 124 114/62 04/24/18 18:00 121 04/24/18 16:00 97.7 120 20 100/60 (73) 94 04/24/18 16:00 117 04/24/18 14:00 118 04/24/18 12:50 114 90/65 04/24/18 12:00 114 04/24/18 12:00 97.7 114 21 112/75 (87) 97 I/O 04/24/18 04/24/18 04/24/18 04/25/18 04/25/18 04/25/18 07:00 15:00 23:00 07:00 15:00 23:00 Intake Total 1375 ml 500 ml 390 ml 2000 ml 500 ml Output Total 800 ml 200 ml 1950 ml Balance 575 ml 500 ml 190 ml 50 ml 500 ml IV Total 500 ml 500 ml 250 ml 2000 ml 500 ml Tube Feeding 275 ml 140 ml Other 600 ml Stool Total 800 ml 200 ml 150 ml Gastric Drainage Total 1800 ml # Voids 2 1 2 Physical Exam GENERAL: Intubated SKIN: Warm and dry. HEAD: Atraumatic. Normocephalic. EYES: Pupils equal and round. No scleral icterus. No injection or drainage. ENT: No nasal bleeding or discharge. Mucous membranes pink and moist. NECK: Trachea midline. No JVD. CARDIOVASCULAR: RRR, mildly tachycardic RESPIRATORY: No accessory muscle use. Decreased breath sounds bilaterally GASTROINTESTINAL: Abdomen soft, non-tender, nondistended. Hepatic and splenic margins not palpable. MUSCULOSKELETAL: Extremities without clubbing, cyanosis, or edema. No obvious deformities. NEUROLOGICAL: Intubated Laboratory Laboratory Tests Test 04/24/18 15:05 04/25/18 05:26 04/25/18 06:30 04/25/18 09:36 Digoxin Level 1.0 NG/ML Blood Gas Puncture Site LT RADIAL Blood Gas Patient Temperature 98.6 Blood Gas HCO3 6 mmol/L Blood Gas Base Excess -22.0 mmol/L Blood Gas Oxygen Saturation 97 % Arterial Blood pH 7.08 Arterial Blood Partial Pressure CO2 22 mmHg Arterial Blood Partial Pressure O2 407 mmHg Arterial Blood Oxygen Content 19.5 Vol % Arterial Blood Carboxyhemoglobin 0.0 % Arterial Blood Methemoglobin 1.7 % Blood Gas Hemoglobin 13.5 G/DL Oxygen Delivery Device VENTILATOR Blood Gas Ventilator Setting SEE COMMENT Blood Gas Inspired Oxygen 100 % Urine Random Sodium 6 MEQ/L White Blood Count 43.0 TH/MM3 Red Blood Count 4.40 MIL/MM3 Hemoglobin 12.4 GM/DL Hematocrit 40.1 % Mean Corpuscular Volume 91.1 FL Mean Corpuscular Hemoglobin 28.1 PG Mean Corpuscular Hemoglobin Concent 30.9 % Red Cell Distribution Width 14.6 % Platelet Count 224 TH/MM3 Mean Platelet Volume 11.1 FL Prothrombin Time 14.5 SEC Prothromb Time International Ratio 1.4 RATIO Activated Partial Thromboplast Time 36.6 SEC Fibrinogen 257 mg/dL Blood Urea Nitrogen 84 MG/DL Creatinine 4.36 MG/DL Random Glucose 71 MG/DL Calcium Level 7.9 MG/DL Sodium Level 153 MEQ/L Potassium Level 3.6 MEQ/L Chloride Level 125 MEQ/L Carbon Dioxide Level 7.7 MEQ/L Anion Gap 20 MEQ/L Estimat Glomerular Filtration Rate 17 ML/MIN Lactic Acid Level 6.3 mmol/L Ammonia 98 MCMOL/L Troponin I 0.37 NG/ML Test 04/25/18 09:45 Blood Gas Puncture Site ART LINE Blood Gas Patient Temperature 98.6 Blood Gas HCO3 9 mmol/L Blood Gas Base Excess -16.7 mmol/L Blood Gas Oxygen Saturation 97 % Arterial Blood pH 7.27 Arterial Blood Partial Pressure CO2 20 mmHg Arterial Blood Partial Pressure O2 252 mmHg Arterial Blood Oxygen Content 15.9 Vol % Arterial Blood Carboxyhemoglobin 0.2 % Arterial Blood Methemoglobin 1.8 % Blood Gas Hemoglobin 11.3 G/DL Oxygen Delivery Device VENTILATOR Blood Gas Ventilator Setting PRVC/AC Blood Gas Inspired Oxygen 80 % Imaging Last 24 hours Impressions Chest X-Ray 04/25/18 2163 Signed Impressions: CONCLUSION: 1. Interval intubation. 2. Rotated exam with no acute infiltrates or effusions. Assessment and Plan Problem List: (1) Atrial fibrillation with RVR ICD Codes: I48.91 - Unspecified atrial fibrillation Status: Resolved (2) GI bleed ICD Codes: K92.2 - Gastrointestinal hemorrhage, unspecified Status: Acute (3) Paroxysmal atrial fibrillation ICD Codes: I48.0 - Paroxysmal atrial fibrillation Status: Acute (4) Respiratory failure ICD Codes: J96.90 - Respiratory failure, unspecified, unspecified whether with hypoxia or hypercapnia Assessment and Plan 1) Upper GI bleed EGD negative for bleed 2) Afib with RVR s/p cardioversion for shock Agree with Amiodarone BB held 3) NICM EF 20% 4) Shock Con't vasopressors Unsure of cause Possible aspiration? Will check 2D echo, but obviously known cardiomyopathy Problem Qualifiers (1) GI bleed: Qualified Codes: K92.2 - Gastrointestinal hemorrhage, unspecified Bola Wheat DO Apr 25, 2018 11:52
[2018-04-25] MEDS ORDERED: HYDROCORTISONE SOD SUCCINATE 250 MG VIAL IV SCH (12:00)
[2018-04-25] MEDS: LACTULOSE SYRUP 20 GM/30 ML CUP PO SCH ×3 (12:12→21:00)
[2018-04-25] MEDS: metroNIDAZOLE 500 MG INJ 100 ML IV SCH ×2 (12:34→22:26)
[2018-04-25] MEDS: PIPERACIL-TAZO 2.25 GM PREMIX 50 ML IV SCH ×2 (12:38→18:27)
[2018-04-25] MEDS: HYDROCORTISONE SOD SUCCINATE 100 MG VIAL IV SCH ×2 (12:52→22:29)
[2018-04-25] MEDS: SODIUM BICARBONATE 8.4% INJ 150 MEQ in WATER STERILE FOR INJ 850 ML IV SCH ×3 (13:20→22:29)
--- NOTE | 2018-04-25 14:26 | MG ---
cc: Fritz Mcpherson MD, PhD EEG NUMBER: [id number] TECHNIQUE: A 17-channel EEG. DESCRIPTION: The background rhythm shows slowing in the delta frequency of 3-4 Hz. Amplitude is 30-40 microvolts. No lateralizing features are identified. There are no epileptiform discharges present. Photic does not elicit a driving response. INTERPRETATION: Abnormal study consistent with a moderate to severe encephalopathy. Fritz Mcpherson MD, PhD FRANCISCO/DL , 02:16 PM , 02:25 PM
[2018-04-25 14:44] LABS: ALBUMIN 2.1 GM/DL (3.4-5.0); DIRECT BILIRUBIN ADULT 0.2 MG/DL (0.0-0.2); MAGNESIUM 2.2 MG/DL (1.5-2.5); PHOSPHORUS 2.6 MG/DL (2.5-4.9)
[2018-04-25 15:38] LABS: DIGOXIN 2.9 NG/ML (0.8-2.0); INDIRECT BILIRUBIN 0.2 MG/DL (0.0-0.8); TOTAL BILIRUBIN ADULT 0.4 MG/DL (0.2-1.0)
[2018-04-25] MEDS ORDERED: FUROSEMIDE INJ 100 MG in SODIUM CHLORIDE 0.9% INJ 90 ML IV SCH (17:00)
[2018-04-25 17:36] LABS: TROPONIN I 2.56 NG/ML (0.02-0.05)
[2018-04-25] MEDS ORDERED: SODIUM BICARBONATE 8.4% SOLN 50 MEQ/50 ML VIAL IV ONE (17:45)
--- NOTE | 2018-04-25 18:53 | MB ---
cc: Jamie Hoyt MD DATE: 04/25/2018 REASON FOR CONSULTATION: Chronic kidney disease, acute kidney injury, for evaluation. HISTORY OF PRESENT ILLNESS: This is a 58-year-old male with a past medical history of hypertension, chronic kidney disease, hyperlipidemia, diabetes mellitus, seizure disorder, atrial fibrillation, who was admitted with possible gastrointestinal bleeding. I was asked to see the patient because of worsening creatinine. The patient has known history of chronic kidney disease, and he was seen by me during his last hospitalization. The patient has baseline creatinine in the range of 1.8-1.9, and he was admitted with a creatinine of 1.9, which was gradually going up to 2.3 and now has gone up to 4.3. The patient developed respiratory failure and was intubated. He has a low blood pressure and patient has low urine output, and he is on 3 pressors right now with a blood pressure on the lower side. The patient has a history of congestive heart failure and low ejection fraction. PAST MEDICAL HISTORY: Hypertension, ischemic heart disease, atrial fibrillation, chronic kidney disease, obstructive sleep apnea, seizure disorder, hyperlipidemia. PAST SURGICAL HISTORY: History of tracheostomy, PEG tube placement, coronary catheterization. REVIEW OF SYSTEMS: Cannot be taken since the patient is on the vent. SOCIAL HISTORY: The patient has no history of smoking. No history of alcoholism. FAMILY HISTORY: Noncontributory. ALLERGIES: ALLERGIC TO CASTOR OIL. MEDICATIONS: Currently, he is on the following medications: Getting IV fluid with sodium bicarbonate, Topamax 200 mg, digoxin 0.125 mg daily, Lipitor 80 mg at bedtime, DuoNeb nebulizer, budesonide 0.5 mg nebulizer, Protonix 40 mg q.12 hours, Zosyn 2.25 grams IV q. 6 hours, metoprolol 50 mg q. 6 hours, diltiazem 30 mg q. 6 hours, free water 200 mg q. 6 hours, insulin sliding scale, metronidazole 500 mg q. 8 hours, Solu-Cortef 100 mg q. 8 hours, albuterol nebulizer, norepinephrine. PHYSICAL EXAMINATION: GENERAL: The patient is intubated and on multiple pressors. VITAL SIGNS: His last blood pressure 97/60. Currently, patient is on FiO2 of 50%. HEENT: Pupils are mid, constricted. Nonicteric sclerae. Conjunctivae pale. NECK: Supple. JVD is elevated. LUNGS: The patient has bilateral decreased air entry with basal rales and scattered wheezing. HEART: S1, S2, irregular rhythm. ABDOMEN: Distended with PEG tube placement. EXTREMITIES: He has 1+ leg edema. INVESTIGATIONS: WBC count is 43, hemoglobin 12.4, platelet count of 224. Sodium is 153, potassium 3.6, chloride 125, bicarbonate 7.7, BUN 84, creatinine 4.3, glucose 71, calcium 7.9. Troponin I 0.37. INR 1.4. Digoxin level was 1.0. Urinalysis showing protein of 100, urine eosinophil pending. IMAGING STUDIES: The patient had a chest x-ray done, which shows no infiltrate or effusion. Previously had ultrasound of the kidney done in 10/2016 and shows both kidneys normal in size and 3.2 cm cyst in the right lower kidney. No evidence of obstruction. Bladder is decompressed. ASSESSMENT AND PLAN: 1. Chronic kidney disease, acute kidney injury. 2. Severe metabolic acidosis. 3. Hypotension and shock status. 4. Respiratory failure. 5. Leukocytosis, rule out sepsis. 6. Encephalopathy, possibly hypoxemic. 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 Most likely, this is related to ATN and hypotension. The urine output is low. The patient is getting IV fluid with sodium bicarbonate. I will put the patient on Lasix infusion. If the urine output does not improve, then possibly will need CRRT. We will wait for further labs over the weekend. The patient will be followed by Dr. Esau Plasencia. Thank you for the consultation. MD BRIAN Rice/THERESA , 04:52 PM , 06:52 PM FELIPE
[2018-04-25] MEDS: MILRINONE INJ 20 MG in SODIUM CHLORIDE 0.9% INJ 80 ML IV SCH (19:25)
[2018-04-25] MEDS: VANCOMYCIN 500 MG VIAL (FOR ORAL USE ONLY) PO SCH ×2 (19:26→21:00)
[2018-04-25] MEDS: ATORVASTATIN 80 MG TAB PEG SCH (21:00)
[2018-04-26] VITALS (17 sets, daily range): BP systolic 46–127; BP diastolic 31–91; PULSE 85–123; RESP 24; TEMP 96.7–101.4; O2SAT 0–91
[2018-04-26] MEDS: RESP: ALBUTEROL 2.5 MG/IPRATROPIUM 0.5 MG NEB (SCH) NEB ×6 (00:02→20:59)
[2018-04-26] MEDS: VASOPRESSIN INJ 40 UNITS in DEXTROSE 5% IN WATER 100ML INJ 98 ML IV SCH ×4 (00:37→18:40)
[2018-04-26] MEDS: PIPERACIL-TAZO 2.25 GM PREMIX 50 ML IV SCH ×5 (00:38→23:58)
[2018-04-26] MEDS: MILRINONE INJ 20 MG in SODIUM CHLORIDE 0.9% INJ 80 ML IV SCH ×4 (00:38→21:09)
[2018-04-26] MEDS: NOREPINEPHRINE-DEXTROSE DRIP 250 ML IV PRN ×11 (00:39→23:59)
[2018-04-26] MEDS: PHENYLEPHRINE INJ 80 MG in DEXTROSE 5% IN WATE 500 ML INJ 492 ML IV PRN ×12 (00:54→23:58)
[2018-04-26] MEDS: SODIUM BICARBONATE 8.4% INJ 150 MEQ in WATER STERILE FOR INJ 850 ML IV SCH ×3 (03:25→18:40)
[2018-04-26] MEDS: metroNIDAZOLE 500 MG INJ 100 ML IV SCH ×3 (03:25→20:43)
--- NOTE | 2018-04-26 03:30 | HHI.CCPN ---
Subjective Remarks/Hospital Course This is a 58 year old AAM. Date of admission 04/20/2018. Date of consultation . Past medical history significant for a-fib, essential hypertension, hyperlipidemia, CKD stage IIIB, DM, seizure disorder, and GERD. He presented to [facility] originally from [facility] for evaluation of reports of GIB. Pt was found to be Hemoccult positive by ER provider, and according to [employer] there has been reports of black, tarry stools. Patient was also noted to be in atrial fibrillation with rapid ventricular response and was started on esmolol drip which she has been maintained on since admission. He has been evaluated cardiology/Dr. Wheat for his atrial fibrillation and ejection fraction 20% for chronic systolic heart failure currently on a regimen of metoprolol tartrate 50 mg every 6 hours, esmolol drip and digoxin 0.125 mg daily. He remains on apixaban 5 mg twice daily From a GI standpoint, patient received an EGD on 04/22 which revealed LA class B esophagitis, erosive gastritis. He is currently on pantoprazole 40 mg IV twice daily. C. difficile is currently pending. Patient has had tube feeding intolerance. This morning, patient was unresponsive 100% nonrebreather. Patient was intubated without anesthesia. All laboratories and imaging is currently pending at time of dictation. SUBJ 04/25: [facility] Re evaluation note. Patient remains in profound shock most likely cardiogenic. Initially was on 10 mcg/min of Levophed titrated up currently to 30 mcg/min. Vasopressin added at 0.04 international units per minute. Patient remains profoundly hypotensive. Yosvany-Synephrine also added and titrated up to 300 mcg/min. Give additional 0.5 mg digoxin for rate control. Unfortunately cannot use esmolol infusion due to profound hypotension. Proceed with DC cardioversion. I have placed right femoral central line and left radial arterial 04/26: continues to clinically decline. in refractory shock. multifactorial including worsening cardiogenic as well as septic shock. no improvement. lactate climbing. map falling despite multiple vasopressors. given recent tachydysrhythmia, must avoid chronotropes such as epinephrine. notified next of kin and medical decisionmaker, his mother, who agrees that if his heart should stop, we should not do chest compressions. I have noted this in the chart and made the patient DNR. She does ask we continue with aggressive medical therapy, short of compressions. very critically ill, and at this juncture, I do not think he will survive. Objective Vital Signs Date Time Temp Pulse Resp B/P (MAP) Pulse Ox O2 Delivery O2 Flow Rate FiO2 04/26/18 02:00 123 04/26/18 02:00 60/37 04/26/18 00:06 0 50 04/26/18 00:00 100.4 24 04/22/18 16:30 Room Air Intake and Output 04/26/18 04/26/18 04/27/18 08:00 16:00 00:00 Intake Total 1000 ml Balance 1000 ml Result Diagram: 04/25/18 0936 04/25/18 0936 Other Results Microbiology Date/Time Source Procedure Growth Status 04/25/18 06:30 Urine Catheterized Urine Legionella Antigen - Final PRESUMPTIVE NEGATIVE FOR LEGIONELLA P... Complete 04/25/18 06:30 Urine Catheterized Urine Streptococcus pneumoniae Antigen (M - Final PRESUMPTIVE NEGATIVE FOR STREPTOCOCCU... Complete Laboratory Tests Test 04/25/18 05:26 04/25/18 09:45 04/25/18 16:45 Blood Gas Puncture Site LT RADIAL ART LINE ART LINE Blood Gas Patient Temperature 98.6 98.6 98.6 Blood Gas HCO3 6 mmol/L (22-26) 9 mmol/L (22-26) 7 mmol/L (22-26) Blood Gas Base Excess -22.0 mmol/L (-2-2) -16.7 mmol/L (-2-2) -19.0 mmol/L (-2-2) Blood Gas Oxygen Saturation 97 % (90-100) 97 % (90-100) 96 % (90-100) Arterial Blood pH 7.08 (7.380-7.420) 7.27 (7.380-7.420) 7.23 (7.380-7.420) Arterial Blood Partial Pressure CO2 22 mmHg (38-42) 20 mmHg (38-42) 18 mmHg (38-42) Arterial Blood Partial Pressure O2 407 mmHg (61-120) 252 mmHg (61-120) 132 mmHg (61-120) Arterial Blood Oxygen Content 19.5 Vol % (12.0-20.0) 15.9 Vol % (12.0-20.0) 15.3 Vol % (12.0-20.0) Arterial Blood Carboxyhemoglobin 0.0 % (0-4) 0.2 % (0-4) 0.4 % (0-4) Arterial Blood Methemoglobin 1.7 % (0-2) 1.8 % (0-2) 1.9 % (0-2) Blood Gas Hemoglobin 13.5 G/DL (12.0-16.0) 11.3 G/DL (12.0-16.0) 11.2 G/DL (12.0-16.0) Oxygen Delivery Device VENTILATOR VENTILATOR VENTILATOR Blood Gas Ventilator Setting SEE COMMENT PRVC/AC PRVC24/650/0.8/+5 Blood Gas Inspired Oxygen 100 % 80 % 50 % Imaging Last Impressions Chest X-Ray 04/20/18 0000 Signed Impressions: CONCLUSION: The lungs are clear. Objective Remarks GENERAL: 50-year-old AA male currently orotracheally intubated, in profound shock. Morbidly obese SKIN: Warm and dry. HEAD: Atraumatic. Normocephalic. EYES: Pupils equal and round about 3 mm bilaterally, round ENT: No nasal bleeding or discharge. Orotracheally intubated NECK: Trachea midline. + JVD. Well-healed prior tracheostomy scar CARDIOVASCULAR: Tachycardia, regular rhythm. Remains in profound shock, currently on maximum dose of Levophed vasopressin and Yosvany-Synephrine. map in the 30s. RESPIRATORY: Air entry equal, bilaterally. Breath sounds equal bilaterally. GASTROINTESTINAL: Abdomen soft, non-tender obese. PEG tube site is clean dry and intact without erythema MUSCULOSKELETAL: Extremities with 2+ pitting upper and lower extremity edema. No obvious deformities. NEUROLOGICAL: Unresponsive. Currently with a gag and a cough. Positive corneal reflex. Not requiring any sedation on ventilator A/P Assessment and Plan Assessment: 58yM with NICM now in profound refractory mixed shock: septic and cardiogenic. worse and decompensating. critically ill. at this point, almost certainly terminal. Neuro/Psych: Acute toxic metabolic encephalopathy Seizure disorder NOS EEG brain ordered, pending CT brain ordered stat-[address] brain Currently on topiramate 200 mg daily. Continue Propofol/fentanyl written for sedation/analgesia while intubated, holding due to altered mentation and severe hypotension Acetaminophen 650 mg by tube every 6 hours as needed fever CV: Severe refractory shock: mixed cardiogenic, septic. worse, severe. Chronic systolic heart failure ejection fraction less than 20% 06/20 Moderate MR/TR Atrial fibrillation with rapid ventricular response- resolved s/p cardioversion Essential hypertension Hyperlipidemia Moderate pulmonary hypertension Chronic venous insufficiency In refractory shock on Levophed 30 mcg/min, vasopressin 0.04 international units per minute, Yosvany-Synephrine at 300 micrograms per minute s/p cardioversion 04/25 bicarb infusion Holding metoprolol tartrate 50 mg every 6 hours,and esmolol drip. Holding diltiazem 30 mg by tube every 6 hours. On 90 mg at home Received 1 L normal saline bolus after intubation along with colloid challenge, additional 1 L normal saline bolus given 2D echocardiogram since 06/20 revealed EF less than 20%. Moderate MR/TR. Bilateral ventricular enlargement. Moderate pulmonary hypertension On furosemide 40 mg daily-will hold Unable to use dobutamine or epinephrine at this time due to tachycardia Continue Eliquis for anti-coagulant Resp: Acute hypoxemic respiratory failure Obstructive sleep apnea Ventilator bundle Albuterol/ipratropium aerosols every 4 hours with albuterol aerosols every 2 hours as needed dyspnea Budesonide 0.5/2 1 inhalation twice daily GI: LA class B esophagitis Erosive gastritis Nausea/vomiting Chronic constipation Gastroesophageal reflux disease Hypoalbuminemia Tube feeds currently on hold. Nutrition recommends Glucerna 1.5 goal 60 cc an hour EGD 04/22 bilateral esophagus revealed LA class B esophagitis, erosive gastritis. Pantoprazole 40 mg IV twice daily for GI prophylaxis. On ranitidine 150 mg daily at senior living No bowel regimen. C. difficile still pending On ondansetron and metoclopramide at extended care facility Endo: Diabetes mellitus Sliding scale insulin/medium regimen with Accu-Cheks every 6 hours with Novulin R. On lispro at home Renal: Chronic kidney disease stage IIIa with creatinine slowly increasing Monitor urine output Accurate I's and O's Anderson catheter has been placed for accurate I's and O's in a critically ill patient Heme: Chronic apixaban use Chronic thrombocytopenia with history of bone marrow biopsy Continue apixaban 5 mg twice daily Follow-up on CBC this a.m. ID: Continue vancomycin and piperacillin/tazobactam Blood cultures 2, sputum, urine, influenza and urine Legionella pneumococcal antigens ordered 04/25 FEN: Hypernatremia Hypopotassemia Currently in free water 200 cc every 6 hours Replace electrolytes as clinically indicated Access -Utilize peripheral IV. Central line if indicated Prophylax -GI -pantoprazole -DVT -SCD/apixaban CCT 34 MIN Patient remains critically ill requiring multiple intervention including multiple vasopressor agents. Currently on maximum doses of Levophed vasopressin and Yosvany-Synephrine. Mamadou Mcgowan MD Apr 26, 2018 03:30
[2018-04-26 03:41] LABS: HEMATOCRIT 34.7 % (39.0-51.0); HEMOGLOBIN 10.7 GM/DL (13.0-17.0); MEAN CELL VOLUME 91.1 FL (80.0-100.0); MEAN CORPUSCULAR HGB CONC 30.7 % (32.0-36.0); MEAN PLATELET VOLUME 10.3 FL (7.0-11.0); PLATELET COUNT 176 TH/MM3 (150-450); RED BLOOD COUNT 3.81 MIL/MM3 (4.50-5.90); RED CELL DISTRIBUTION WIDTH 14.6 % (11.6-17.2); WHITE BLOOD COUNT 63.6 TH/MM3 (4.0-11.0)
--- NOTE | 2018-04-26 04:05 | RADRPT ---
EXAM DATE: 04/26/2018 3:58 AM EDT AGE/SEX: 58 years / Male INDICATIONS: Shortness of breath, A-fib. CLINICAL DATA: This is the patient's subsequent encounter. Patient reports that signs and symptoms h ave been present for 4 - 6 days and indicates a pain score of Nonresponsive. MEDICAL/SURGICAL HISTORY: Congestive heart failure. A-Fib None. COMPARISON: . FINDINGS: 2 AP semierect views of the chest were obtained and demonstrate no confluent infiltrates or effusions . The endotracheal tube remains in place with the tip 3 cm above the alexa. Multiple overlying elect rocardiogram leads are present. The heart size appears mildly enlarged. The bony thorax is intact. CONCLUSION: No significant change. Electronically signed by: Berto Anthony MD 04/26/2018 4:03 AM EDT
[2018-04-26 04:22] LABS: BANDS 37 % (0-6); CORRECTED NUCLEATED RBC 3 /100 WBC (0-0); LYMPHOCYTES 6 % (9-44); METAMYELOCYTES 3 % (0-1); MONOCYTES 12 % (0-8); NEUTROPHIL # MANUAL DIFF 52.2 TH/MM3 (1.8-7.7); NUCLEATED RED BLOOD CELL 3 (0-0); POLYS (SEG NEUTROPHILS) 42 % (16-70)
[2018-04-26 04:23] LABS: BURR CELLS 2+ (NORMAL); DOHLE BODIES PRESENT (NONE SEEN)
[2018-04-26 04:29] LABS: ALBUMIN 1.6 GM/DL (3.4-5.0); BICARBONATE 8.3 MEQ/L (21.0-32.0); CALCIUM 6.2 MG/DL (8.5-10.1); CALCIUM-PROTEIN CORRECTED 7.7 MG/DL (8.5-10.1); CREATININE 4.96 MG/DL (0.60-1.30); PHOSPHORUS 4.1 MG/DL (2.5-4.9); RANDOM VANCOMYCIN 24.1 COMMENT; TOTAL BILIRUBIN ADULT 0.4 MG/DL (0.2-1.0); TOTAL PROTEIN 4.1 GM/DL (6.4-8.2)
[2018-04-26 04:34] LABS: TROPONIN I 6.96 NG/ML (0.02-0.05)
[2018-04-26] MEDS: METOPROLOL TARTRATE 50 MG TAB PEG SCH ×4 (05:09→15:35)
[2018-04-26] MEDS: DILTIAZEM HCL 30 MG TAB PO SCH ×5 (05:09→23:53)
[2018-04-26] MEDS: INSULIN NovoLIN REGULAR SUPPLEMENTAL SCALE SQ SCH ×5 (05:09→23:53)
[2018-04-26] MEDS: FREE WATER G-TUBE SCH ×5 (05:09→23:53)
[2018-04-26] MEDS: HYDROCORTISONE SOD SUCCINATE 100 MG VIAL IV SCH ×3 (05:26→20:46)
[2018-04-26] MEDS: CHLORHEXIDINE 0.12% (ORAL KIT) 15 ML CUP MT SCH ×2 (07:51→20:43)
[2018-04-26] MEDS: ARTIFICIAL TEARS OPTH OINT 3.5 APPLIC/3.5 GM TUBO EACH EYE SCH ×2 (07:51→21:00)
[2018-04-26] MEDS: SODIUM CHLORIDE 0.9% FLUSH 10 ML FLUSH IV FLUSH SCH ×2 (07:52→20:44)
[2018-04-26] MEDS: LACTULOSE SYRUP 20 GM/30 ML CUP PO SCH ×4 (07:52→20:45)
[2018-04-26] MEDS: RESP: BUDESONIDE 0.5 MG/2 ML NEB NEB SCH (07:58)
[2018-04-26] MEDS ORDERED: SODIUM BICARBONATE 8.4% INJ 50 MEQ/50 ML SYR ONE ×3 (08:13→13:56)
[2018-04-26] MEDS: TOPIRAMATE 200 MG TAB PEG SCH (08:25)
[2018-04-26] MEDS: APIXABAN 5 MG TABLET PO SCH ×2 (08:25→20:45)
[2018-04-26] MEDS: DIGOXIN 0.125 MG TAB PO SCH (08:26)
[2018-04-26] MEDS: VANCOMYCIN 500 MG VIAL (FOR ORAL USE ONLY) PO SCH ×4 (08:26→20:45)
[2018-04-26] MEDS: PANTOPRAZOLE SODIUM 40 MG VIAL IV PUSH SCH ×2 (09:00→20:45)
--- NOTE | 2018-04-26 11:31 | HHI.NPPN ---
Subjective Additional Remarks Intubated, sedated on pressors Objective Data Data 04/26/18 04/27/18 19:00 07:00 Intake Total 250 ml Balance 250 ml IV Total 250 ml Vital Signs Date Time Temp Pulse Resp B/P (MAP) Pulse Ox O2 Delivery O2 Flow Rate FiO2 04/26/18 10:22 32/27 04/26/18 10:10 33/27 04/26/18 08:00 91 50 04/26/18 08:00 117 04/26/18 08:00 50 04/26/18 07:53 119 36/29 04/26/18 06:00 122 37/30 04/26/18 06:00 122 37/30 04/26/18 06:00 122 37/30 04/26/18 06:00 122 37/30 04/26/18 06:00 122 04/26/18 05:50 123 38/31 04/26/18 05:26 123 40/32 04/26/18 04:45 0 50 04/26/18 04:00 101.4 119 24 90/54 (66) 46/35 (39) 04/26/18 04:00 50 04/26/18 04:00 119 04/26/18 04:00 119 46/35 04/26/18 04:00 119 46/35 04/26/18 03:25 125 39/45 04/26/18 02:00 123 04/26/18 02:00 123 60/37 04/26/18 02:00 123 60/37 04/26/18 00:54 121 59/39 04/26/18 00:39 123 62/35 04/26/18 00:38 123 58/38 04/26/18 00:37 123 58/38 04/26/18 00:06 0 50 04/26/18 00:00 100.4 122 24 127/91 (103) 58/40 (46) 04/26/18 00:00 122 04/26/18 00:00 122 65/38 04/26/18 00:00 122 65/38 04/26/18 00:00 50 04/25/18 22:31 112 79/47 04/25/18 22:30 112 73/47 04/25/18 22:00 119 04/25/18 22:00 122 60/40 04/25/18 22:00 122 60/40 04/25/18 20:31 98 50 04/25/18 20:00 102.3 104 24 137/71 (93) 100 77/63 (68) 04/25/18 20:00 104 04/25/18 20:00 104 77/63 04/25/18 20:00 104 77/53 04/25/18 20:00 50 04/25/18 19:27 87 85/58 04/25/18 19:25 101 88/59 04/25/18 18:00 101 04/25/18 16:47 96 50 04/25/18 16:35 100 97/60 04/25/18 16:33 100 90/60 04/25/18 16:00 100.8 100 28 76/52 (60) 04/25/18 16:00 103 04/25/18 16:00 50 04/25/18 14:00 103 04/25/18 12:00 130 04/25/18 12:00 100.6 144 16 83/60 (68) 100 04/25/18 12:00 100 04/25/18 11:57 104 73/57 04/25/18 11:35 97 60 -: 04/26/18 0320 04/26/18 0320 Microbiology 04/25/18 Gram Stain - Final, Resulted 04/25/18 Sputum Culture, Resulted Pending Physical Exam General Appearance: No Acute Distress Throat Throat Exam: Oral Mucosa [place] & Moist Neck Neck Exam: Neck Supple Pulmonary Resp Exam: Diminished Breath Sounds Cardiology CV Exam: Regular Gastrointestinal/Abdomen GI Exam: Soft, Non-Tender Musculoskeletal MS Exam: Joints Intact Integumentary Skin Exam: Intact Neurologic Neuro Exam: Comatose Assessment/Plan Problem List: (1) DENNYS (acute kidney injury) ICD Codes: N17.9 - Acute kidney failure, unspecified (2) Respiratory failure ICD Codes: J96.90 - Respiratory failure, unspecified, unspecified whether with hypoxia or hypercapnia (3) Chronic systolic CHF (congestive heart failure) ICD Codes: I50.22 - Chronic systolic (congestive) heart failure Status: Chronic Plan 1. Chronic kidney disease, acute kidney injury. 2. Severe metabolic acidosis. 3. Hypotension and shock status. 4. Respiratory failure. 5. Leukocytosis, rule out sepsis. 6. Encephalopathy, possibly hypoxemic. CKD likely due to HTN Now with DENNYS/ATN due to sepsis and hypotension On mutliple pressors, IVFs with NaHCO3 and lasix infusion with minimal UOP. Poor prognosis and not a good candidate for HD at this point Discussed with Dr. Fatima - poor prognosis. Should circumstances improve, may consider for CVVHD. Continue supportive care for now. Jonathan Plasencia MD Apr 26, 2018 11:31
--- NOTE | 2018-04-26 14:01 | PD.PROCEDR ---
Procedure Note Procedure Ultrasound-guided right femoral arterial line placement Indication-severe shock invasive blood pressure monitoring, previous art line needs replacement The patient was placed in supine, position. The area was exposed and cleansed with ChloraPrep, times two. Sterile drape was used to cover the patient, with the site exposed, under sterile conditions including cap, face mask, sterile gown, and sterile gloves. On second attempt, the introducer needle was inserted and arterial flash was obtained. The guide wire was then advanced without any restriction and the needle was removed. Using Seldinger technique the 16 cm arterial catheter was advanced over the guide wire to a depth of 15 centimeters. The guide wire was removed. Good arterial waveform obtained. Antibiotic disc was placed around central line at puncture site. The arterial line was secured to the skin with one interrupted 2.0 silk sutures. Blood loss was less than 2 mL Niesha Fatima MD Apr 26, 2018 14:01
[2018-04-26] MEDS ORDERED: SODIUM BICARBONATE 8.4% INJ 50 MEQ/50 ML SYR IV PUSH ONE (15:15)
[2018-04-26] MEDS ORDERED: SODIUM BICARBONATE 8.4% INJ 50 MEQ/50 ML SYR IV ONE (15:15)
[2018-04-26] MEDS: ATORVASTATIN 80 MG TAB PEG SCH (20:45)
[2018-04-27] VITALS: BP 52/28; PULSE 71; PULSE 78; TEMP 93.2
[2018-04-27 00:30] VITALS: BP 52/28; PULSE 78
--- NOTE | 2018-04-27 06:33 | DEATH SUM ---
Summary Demographics Date Pronounced : Apr 27, 2018 Time Of : 44 Pronounced By: Dr. Alvarado Preliminary Cause of : Cardiac arrest Niesha Fatima MD Apr 27, 2018 06:33
--- NOTE | 2018-04-27 06:40 | HHI.DS ---
Summary Note Date of : Apr 27, 2018 Time Of : 0045 Admission Date Apr 20, 2018 at 17:30 Admitting Diagnosis Atrial fibrillation with RVR, GI bleed Diagnosis at Time of : (1) Severe refractory shock: septic and cardiogenic Diagnosis: Principal (2) Severe C Dfiff colitis Diagnosis: Principal (3) Acute on chronic kidney failure ICD Code: N17.9 - Acute kidney failure, unspecified; N18.9 - Chronic kidney disease, unspecified Diagnosis: Principal (4) Acute hypoxemic respiratory failure ICD Code: J96.01 - Acute respiratory failure with hypoxia Diagnosis: Principal (5) Acute metabolic encephalopathy ICD Code: G93.41 - Metabolic encephalopathy Diagnosis: Principal (6) Acute on chronic systolic heart failure ICD Code: I50.23 - Acute on chronic systolic (congestive) heart failure Diagnosis: Principal (7) Morbid obesity with BMI of 50.0-59.9, adult ICD Code: E66.01 - Morbid (severe) obesity due to excess calories; Z68.43 - Body mass index (BMI) 50-59.9 , adult Diagnosis: Principal (8) Non-ischemic cardiomyopathy ICD Code: I42.8 - Other cardiomyopathies Diagnosis: Principal (9) DM (diabetes mellitus) ICD Code: E11.9 - Type 2 diabetes mellitus without complications Diagnosis: Principal (10) Atrial fibrillation with RVR ICD Code: I48.91 - Unspecified atrial fibrillation Diagnosis: Principal (11) Paroxysmal atrial fibrillation ICD Code: I48.0 - Paroxysmal atrial fibrillation Diagnosis: Principal Procedures Intubation Central line Arterial line x2 DC cardioversion Brief History 58-year-old -[place] male with a past medical history significant for hyperlipidemia, diabetes mellitus, chronic kidney disease, seizure disorder, atrial fibrillation anticoagulated on Eliquis and GERD presents to the emergency department from [facility]. According to EMS the original call was for a GI bleed. In route to the hospital the patient was noted to be in A. fib with RVR. The patient is an extremely oriented but denies any symptoms including lightheadedness, dizziness, chest pain, shortness of breath, nausea, vomiting, abdominal pain or visible blood in his stool. He denies any hematemesis. The patient was found to be Hemoccult positive in the emergency department. Alert and oriented to self. CBC/BMP: 04/26/18 0320 04/26/18 0320 Significant Findings Laboratory Tests Test 04/24/18 15:05 04/25/18 05:26 04/25/18 06:30 04/25/18 09:36 Blood Gas HCO3 6 mmol/L (22-26) Blood Gas Base Excess -22.0 mmol/L (-2-2) Arterial Blood pH 7.08 (7.380-7.420) Arterial Blood Partial Pressure CO2 22 mmHg (38-42) Arterial Blood Partial Pressure O2 407 mmHg (61-120) Urine Protein 100 mg/dL (NEG-TRACE) Urine Ketones TRACE mg/dL (NEG) White Blood Count 43.0 TH/MM3 (4.0-11.0) Red Blood Count 4.40 MIL/MM3 (4.50-5.90) Hemoglobin 12.4 GM/DL (13.0-17.0) Mean Corpuscular Hemoglobin Concent 30.9 % (32.0-36.0) Mean Platelet Volume 11.1 FL (7.0-11.0) Prothrombin Time 14.5 SEC (9.8-11.6) Activated Partial Thromboplast Time 36.6 SEC (24.3-30.1) Blood Urea Nitrogen 84 MG/DL (7-18) Creatinine 4.36 MG/DL (0.60-1.30) Random Glucose 71 MG/DL (74-106) Calcium Level 7.9 MG/DL (8.5-10.1) Sodium Level 153 MEQ/L (136-145) Chloride Level 125 MEQ/L (98-107) Carbon Dioxide Level 7.7 MEQ/L (21.0-32.0) Anion Gap 20 MEQ/L (5-15) Estimat Glomerular Filtration Rate 17 ML/MIN (>89) Lactic Acid Level 6.3 mmol/L (0.4-2.0) Ammonia 98 MCMOL/L (11-32) Troponin I 0.37 NG/ML (0.02-0.05) Test 04/25/18 09:45 04/25/18 14:10 04/25/18 15:20 04/25/18 16:45 Blood Gas HCO3 9 mmol/L (22-26) 7 mmol/L (22-26) Blood Gas Base Excess -16.7 mmol/L (-2-2) -19.0 mmol/L (-2-2) Arterial Blood pH 7.27 (7.380-7.420) 7.23 (7.380-7.420) Arterial Blood Partial Pressure CO2 20 mmHg (38-42) 18 mmHg (38-42) Arterial Blood Partial Pressure O2 252 mmHg (61-120) 132 mmHg (61-120) Blood Gas Hemoglobin 11.3 G/DL (12.0-16.0) 11.2 G/DL (12.0-16.0) Lactic Acid Level 8.3 mmol/L (0.4-2.0) Uric Acid 11.6 MG/DL (2.6-7.2) Aspartate Amino Transf (AST/SGOT) 882 U/L (15-37) Alanine Aminotransferase (ALT/SGPT) 700 U/L (12-78) Alkaline Phosphatase 152 U/L (45-117) Lactate Dehydrogenase 1801 U/L (87-241) Total Creatine Kinase 2093 U/L (39-308) Creatine Kinase MB 19.8 NG/ML (0.5-3.6) Troponin I 2.56 NG/ML (0.02-0.05) Total Protein 5.0 GM/DL (6.4-8.2) Albumin 2.1 GM/DL (3.4-5.0) Amylase Level 344 U/L (25-115) Digoxin Level 2.9 NG/ML (0.8-2.0) Test 04/26/18 03:20 04/26/18 06:00 04/26/18 07:55 White Blood Count 63.6 TH/MM3 (4.0-11.0) Red Blood Count 3.81 MIL/MM3 (4.50-5.90) Hemoglobin 10.7 GM/DL (13.0-17.0) Hematocrit 34.7 % (39.0-51.0) Mean Corpuscular Hemoglobin Concent 30.7 % (32.0-36.0) Band Neutrophils % 37 % (0-6) Lymphocytes % 6 % (9-44) Monocytes % 12 % (0-8) Neutrophils # (Manual) 52.2 TH/MM3 (1.8-7.7) Metamyelocytes 3 % (0-1) Nucleated Red Blood Cells 3 /100 WBC (0-0) Dohle Bodies PRESENT (NONE SEEN) [place] Cells 2+ (NORMAL) Blood Urea Nitrogen 79 MG/DL (7-18) Creatinine 4.96 MG/DL (0.60-1.30) Random Glucose 111 MG/DL (74-106) Total Protein 4.1 GM/DL (6.4-8.2) Albumin 1.6 GM/DL (3.4-5.0) Calcium Level 6.2 MG/DL (8.5-10.1) Alkaline Phosphatase 305 U/L (45-117) Aspartate Amino Transf (AST/SGOT) 953 U/L (15-37) Alanine Aminotransferase (ALT/SGPT) 729 U/L (12-78) Chloride Level 111 MEQ/L (98-107) Carbon Dioxide Level 8.3 MEQ/L (21.0-32.0) Anion Gap 24 MEQ/L (5-15) Estimat Glomerular Filtration Rate 15 ML/MIN (>89) Lactic Acid Level 12.5 mmol/L (0.4-2.0) Protein Corrected Calcium 7.7 MG/DL (8.5-10.1) Troponin I 6.96 NG/ML (0.02-0.05) Stool C. difficile Toxin (PCR) POSITIVE (NEGATIVE) Stl C. difficile Toxin Epiderm 027 PRESUMPTIVE POSITIVE Blood Gas HCO3 6 mmol/L (22-26) Blood Gas Base Excess -22.5 mmol/L (-2-2) Arterial Blood pH 7.04 (7.380-7.420) Arterial Blood Partial Pressure CO2 24 mmHg (38-42) Blood Gas Hemoglobin 9.7 G/DL (12.0-16.0) Imaging Last Impressions Chest X-Ray 04/20/18 0000 Signed Impressions: CONCLUSION: The lungs are clear. Hospital Course This is a 58 year old AAM. Date of admission 04/20/2018. Date of consultation . Past medical history significant for a-fib, essential hypertension, hyperlipidemia, CKD stage IIIB, DM, seizure disorder, and GERD. He presented to [facility] originally from [facility] for evaluation of reports of GIB. Pt was found to be Hemoccult positive by ER provider, and according to RECONCILING CLERK there has been reports of black, tarry stools. Patient was also noted to be in atrial fibrillation with rapid ventricular response and was started on esmolol drip which she has been maintained on since admission. He has been evaluated cardiology/Dr. Wheat for his atrial fibrillation and ejection fraction 20% for chronic systolic heart failure currently on a regimen of metoprolol tartrate 50 mg every 6 hours, esmolol drip and digoxin 0.125 mg daily. He remains on apixaban 5 mg twice daily From a GI standpoint, patient received an EGD on 04/22 which revealed LA class B esophagitis, erosive gastritis. He is currently on pantoprazole 40 mg IV twice daily. C. difficile is currently pending. Patient has had tube feeding intolerance. This morning, patient was unresponsive 100% nonrebreather. Patient was intubated without anesthesia. All laboratories and imaging is currently pending at time of dictation. SUBJ 04/25: [facility] Re evaluation note. Patient remains in profound shock most likely cardiogenic. Initially was on 10 mcg/min of Levophed titrated up currently to 30 mcg/min. Vasopressin added at 0.04 international units per minute. Patient remains profoundly hypotensive. Yosvany-Synephrine also added and titrated up to 300 mcg/min. Give additional 0.5 mg digoxin for rate control. Unfortunately cannot use esmolol infusion due to profound hypotension. Proceed with DC cardioversion. I have placed right femoral central line and left radial arterial 04/26: continues to clinically decline. in refractory shock. multifactorial including worsening cardiogenic as well as septic shock. no improvement. lactate climbing. map falling despite multiple vasopressors. given recent tachydysrhythmia, must avoid chronotropes such as epinephrine. notified next of kin and medical decisionmaker, his mother, who agrees that if his heart should stop, we should not do chest compressions. I have noted this in the chart and made the patient DNR. She does ask we continue with aggressive medical therapy, short of compressions. very critically ill, and at this juncture, I do not think he will survive. Patient's C Diff test came back positive, was already placed on IV Flagyl and PO vancomycin. GPC bacteremia was covered with broad spectrum ABX. Despite aggressive care, with full ventilatory supports, broad spectrum antibiotics and three pressors at maximum dose, patient at 0045 AM on 04/27/18 Niesha Fatima MD Apr 27, 2018 06:40
== END 2018-04-27 00:45 | disposition expired | DRG 308 ==
LOC: NEPC 14:49 → NEDA 17:30 → HIME 18:40
PROVIDERS: ADMIT Internal Medicine; ATTEND Internal Medicine
PROC: 0DJ08ZZ Inspection of Upper Intestinal Tract, Via Natural or Artificial Opening Endoscopic (ICD-10-PCS; principal; 2018-04-22 15:30)
PROC: 03HY32Z Insertion of Monitoring Device into Upper Artery, Percutaneous Approach (ICD-10-PCS; 2018-04-25)
PROC: 5A1945Z Respiratory Ventilation, 24-96 Consecutive Hours (ICD-10-PCS; 2018-04-25)
PROC: 0BH18EZ Insertion of Endotracheal Airway into Trachea, Via Natural or Artificial Opening Endoscopic (ICD-10-PCS; 2018-04-25)
PROC: 02HV33Z Insertion of Infusion Device into Superior Vena Cava, Percutaneous Approach (ICD-10-PCS; 2018-04-25)
PROC: 5A2204Z Restoration of Cardiac Rhythm, Single (ICD-10-PCS; 2018-04-25)
PROC: 04HY32Z Insertion of Monitoring Device into Lower Artery, Percutaneous Approach (ICD-10-PCS; 2018-04-26)
DX: I48.0 Paroxysmal atrial fibrillation (principal); A41.9 Sepsis, unspecified organism; J96.01 Acute respiratory failure with hypoxia; N17.0 Acute kidney failure with tubular necrosis; I50.23 Acute on chronic systolic (congestive) heart failure; G93.41 Metabolic encephalopathy; R65.21 Severe sepsis with septic shock; R57.0 Cardiogenic shock; N18.3 Chronic kidney disease, stage 3 (moderate); A04.72 Enterocolitis due to Clostridium difficile, not specified as recurrent; Z68.43 Body mass index [BMI] 50.0-59.9, adult; I13.0 Hypertensive heart and chronic kidney disease with heart failure and stage 1 through stage 4 chronic kidney disease, or unspecified chronic kidney disease; E87.0 Hyperosmolality and hypernatremia; E87.2 Acidosis; K92.2 Gastrointestinal hemorrhage, unspecified; E11.22 Type 2 diabetes mellitus with diabetic chronic kidney disease; D69.6 Thrombocytopenia, unspecified; Z66 Do not resuscitate; E66.01 Morbid (severe) obesity due to excess calories; K21.0 Gastro-esophageal reflux disease with esophagitis; G40.909 Epilepsy, unspecified, not intractable, without status epilepticus; R00.0 Tachycardia, unspecified; K29.60 Other gastritis without bleeding; E78.5 Hyperlipidemia, unspecified; G47.33 Obstructive sleep apnea (adult) (pediatric); R63.3 Feeding difficulties; I87.2 Venous insufficiency (chronic) (peripheral); K59.09 Other constipation; I27.20 Pulmonary hypertension, unspecified; E88.09 Other disorders of plasma-protein metabolism, not elsewhere classified; E87.6 Hypokalemia; I25.9 Chronic ischemic heart disease, unspecified; I42.8 Other cardiomyopathies; D64.9 Anemia, unspecified; Z79.01 Long term (current) use of anticoagulants; Z79.4 Long term (current) use of insulin; Z93.1 Gastrostomy status
CPT/HCPCS: 31500; 36556; 36600; 71045; 76937; 80048; 80053; 80076; 80162; 80202; 81001; 82140; 82150; 82533; 82550; 82552; 82570; 82805; 82948; 83605; 83615; 83690; 83735; 84100; 84300; 84443; 84484; 84550; 85007; 85014; 85018; 85025; 85027; 85384; 85610; 85730; 86403; 86850; 86900; 86901; 87040; 87070; 87205; 87449; 87493; 87641; 92960; 93005; 93306; 94002; 94003; 94640; 95819; 96361; 96374; 96375; 96376; C9113; J1160; J1720; J2060; J2260; J2370; J2543; J2765; J3370; J3480; J7030; J7040; J7060; J7626; P9045